=== PATIENT | female | born 1985 | race Caucasian/White ===

== ENCOUNTER 2023-05-30 09:42 | Outpatient (OUT) | payer MEDICAID, SELFPAY | END 2023-05-30 09:43 | disposition home or self-care (01) | LOC: PST 09:45 | PROVIDERS: PCP Nurse Practitioner; Visit Provider Obstetrics & Gynecology | DX: Z01.818 Encounter for other preprocedural examination (principal); R10.2 Pelvic and perineal pain; N94.10 Unspecified dyspareunia ==

== ENCOUNTER 2023-06-08 08:45 | Day surgery (SDC) | payer MEDICAID, SELFPAY ==
[2023-05-30 10:39] VITALS: BP 134/88; PULSE 72; RESP 20; TEMP 36.1; O2SAT 98; BMI 32.5
[2023-06-08] VITALS (13 sets, daily range): BP systolic 104–136; BP diastolic 64–80; PULSE 59–75; RESP 6–21; TEMP 35.8–36.1; O2SAT 78–100; BMI 32.2
[2023-06-08 09:05] LABS: Basophils Absolute Auto 0.1 10^3/uL (0.0-0.1); Basophils Percent Auto 0.8 % (0.2-2.0); Eosinophils Absolute Auto 0.2 10^3/uL (0.0-0.7); Hematocrit 40.5 % (36.0-48.0); Hemoglobin 13.5 g/dL (12.0-16.0); Immature Granulocytes Abs Auto 0.03 10^3/uL (0.00-0.03); Immature Granulocytes Pct Auto 0.3 % (0.0-0.5); Lymphocytes Absolute Auto 2.1 10^3/uL (1.2-3.8); Lymphocytes Percent Auto 23.2 % (20.5-60.0); Mean Corpuscular HGB Conc 33.3 g/dL (29.9-35.2); Mean Corpuscular Hemoglobin 29.7 pg (26.7-34.0); Mean Corpuscular Volume 89.2 fL (81.0-99.0); Mean Platelet Volume 10.2 fL (9.5-13.5); Monocytes Absolute Auto 0.6 10^3/uL (0.3-0.8); Monocytes Percent Auto 6.7 % (1.7-12.0); Platelet Count 325 10^3/uL (150-450); Red Blood Count 4.54 10^6/uL (4.20-5.40); Red Cell Distribution Width 12.5 % (11.0-15.0)
[2023-06-08] MEDS: LACTATED RINGER'S SOLUTION 1,000 ML 50 ML IV (09:12)
--- NOTE | 2023-06-08 12:30 | PM.ONB ---
Brief Operative Note Date of procedure: 06/08/23 Pre-op diagnosis: pelvic pain Post-op diagnosis: same as pre-op Procedure: NAME OF PROCEDURE: [diagnostic laparoscopy with lysis of omental adhesions and bowel from pelvic side wall ] PROCEDURE: The patient was taken back to the Operating Room where she was placed in dorsal lithotomy position after given general anesthesia. The patient was prepped and draped in normal sterile fashion. A sponge stick was placed into the patient's vagina. Attention was turned to the patient's abdomen, where a small umbilical incision was made. The fascia was tented using Car clamps and the fascia was entered sharply. Confirmation of intraabdominal placement of the 10 mm port was confirmed under direct visualization using a laparoscope. The patient's abdomen was then insufflated using CO2 gas with approximately 4 liters. A second port was placed left laterally, this was done under direct visualization with a 5 mm port. Survey of the patient's abdomen demonstrated normal liver and gallbladder. Survey of the patient's pelvic anatomy demonstrated normal appearing rt and lt ovary lysis of omental adhesions from anterior abdominal wall and bowel from pelvic side wall bluntly and using ligasure No endometrial implants could be noted, no evidence of any pelvic disease was seen, normal appearing pelvic cavity. All instruments were removed from the patient's abdomen. The patient's abdomen was deinsufflated of CO2 gas. The patient tolerated the procedure well. Sponge stick was removed from the patient's vagina. The patient's infraumbilical fascia was closed using #0 Vicryl on a GI needle. The patient's skin was closed laterally and infraumbilically using 4-0 Vicryl. The patient tolerated the procedure well. Sponge, lap and needle counts were correct x 2. The patient was taken to Recovery Room in stable condition.Clips from prior surgery noted adhered to bladder, the clips were grasped and gently removed Anesthesia: ILIANA Surgeon: Tommie Mccann [employer] Professor: Luli Marroquin Estimated blood loss (mL): 5 Pathology: none sent Condition: stable Disposition: PACU
[2023-06-08] MEDS: LACTATED RINGER'S SOLUTION 1,000 ML 150 ML IV (13:42)
[2023-06-08] MEDS: PROMETHAZINE HCL 25 MG TABLET PO (14:24)
== END 2023-06-08 14:45 | disposition home or self-care (01) ==
PROVIDERS: Visit Provider Obstetrics & Gynecology
PROC: (CPT 840; principal; 2023-06-08 10:10)
DX: R10.2 Pelvic and perineal pain (principal); N94.10 Unspecified dyspareunia; K66.0 Peritoneal adhesions (postprocedural) (postinfection); F32.A Depression, unspecified; E66.9 Obesity, unspecified; Z87.442 Personal history of urinary calculi; Z90.710 Acquired absence of both cervix and uterus; Z98.51 Tubal ligation status; Z68.32 Body mass index [BMI] 32.0-32.9, adult
CPT/HCPCS: 49329; 36415; 85025; J1170; J2704

== ENCOUNTER 2023-10-25 08:52 | Outpatient (OUT) | payer MEDICAID, SELFPAY ==
--- NOTE | 2023-10-25 09:02 | US_ITS ---
The [address] [address] Patient Name: ASHLEE JALLOH MRN: [id number] date: 1985 Sex: F Assigned Patient Location: US Current Patient Location: US Accession/Order Number: [id number] Exam Date: 10/25/2023 09:03 Report Date: 10/25/2023 10:01 At the request of: LIDIA LUNDBERG Procedure: US renal BI US renal BI, 10/25/2023 9:03 AM EST INDICATION: Right Flank Pain, Angiolipoma Right Kidney COMPARISON: There is no appropriate prior study for comparison. FINDINGS: The kidneys measure 11.3 x 5.6 x 5.3 cm on the right and 11 x 4.7 x 4.6 cm on the left side. No hydronephrosis is noted. Normal vascularity of kidneys. The visualized portion of the urinary bladder is unremarkable. The prevoid urinary bladder measures 329 mL. US/US renal BI IMPRESSION: No renal lesion or hydronephrosis is noted. Electronically authenticated by: ESMER LUCIANO Date: 10/25/2023 10:01
== END 2023-10-25 08:53 | disposition home or self-care (01) ==
LOC: US 08:53
PROVIDERS: Visit Provider Nurse Practitioner
DX: R10.31 Right lower quadrant pain (principal)
CPT/HCPCS: 76775

== ENCOUNTER 2024-01-22 14:00 | Outpatient (OUT) | payer OTHER, SELFPAY | END 2024-01-22 14:01 | disposition home or self-care (01) | LOC: SLEEP 01-23 09:44 | PROVIDERS: PCP Nurse Practitioner; Visit Provider Nurse Practitioner | DX: G47.33 Obstructive sleep apnea (adult) (pediatric) (principal); G47.11 Idiopathic hypersomnia with long sleep time | CPT/HCPCS: 95806 ==

== ENCOUNTER 2024-02-14 19:19 | Outpatient (REF) | payer OTHER, SELFPAY ==
--- OUTSIDE RECORDS SUMMARY | 2024-02-14 19:25 | XMS_ITS | CCD ---
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 Immunizations Vaccine Date Status Comments influenza virus vaccine, inactivated 07/07/2022 Recorded SARS-CoV-2 (COVID-19) mRNA BNT-162b2 vax 02/25/2021 Recorded 2023-05-18: TPVAL SARS-CoV-2 (COVID-19) mRNA BNT-162b2 vax 02/04/2021 Recorded 2023-05-18: TPVAL influenza virus vaccine, inactivated 07/02/2020 Recorded influenza virus vaccine, inactivated 07/14/2019 Recorded Normal [facility] Comment on above: Result Comment: Elec tronically Signed By: Lidia Jones\.br\Date and Time Signed: 01/22/24 10:56 EDT Interdisciplinary Note - Soc ronyl Workerjuan 01-17-2024 Interdisciplinary Note - Reaming Machine Operator For Plastic Consult for positive depression screen received. SW made tc to patient to discuss this. She states that these issues have been ongoing since childhood and she knows she needs to get in to see someone. Patient was agreeable to a referral being sent to [facility] for follow up. She reports that she has anxiety, depression, and PTSD. Referral was sent. SW will remain available. Normal [facility] XR SHOULDER RIGHT (MIN 2 VIE WS)on 01-06-2024 XR SHOULDER RIGHT (MIN 2 VIEWS) EXAMINATION: TWO XRAY VIEWS OF THE RIGHT SHOULDER 01/06/2024 7:44 pm COMPARISON: None. HISTORY: ORDERING SYSTEM PROVIDED HISTORY: pain TECHNOLOGIST PROVIDED HISTORY: pain FINDINGS: Glenohumeral joint is normally aligned. No evidence of acute fracture or dislocation. No abnormal periarticular calcifications. The AC joint is unremarkable in appearance. Visualized lung is unremarkable. IMPRESSION: No acute abnormality. Interpreted by: Derek Paulino MD Signed by: Derek Paulino MD 01/06/24 Final result Normal [facility] LARISSA Screenon 12-27-2023 LARISSA Screen Negative Normal NEG [facility] Comment on above: Performed By: #### H CG #### [address] [place] [address] Die Engraving Supervisor: Vitaliy Mccall MD Anti-dsDNA <0.5 Normal <10.0 [facility] Comment on above: Result Comment: Reference Range: <10.0 Negative 10.0-15.0 Equivocal >15.0 Positive Performed By: #### H CG #### [address] [place] [address] Die Engraving Supervisor: Vitaliy Mccall MD MICK Screen 0.2 U/mL Normal <0.7 [facility] Comment on above: Result Comment: Reference Range: <0.7 Negative 0.7-1.0 Equivocal >1.0 Positive MICK Screen includes U1RNP,RNP70,Sm,Ro(SS-A),La(SS-B),CENP,Scl-70,Jacquelyn-1 Performed By: #### H CG #### [address] [place] [id number] Die Engraving Supervisor: Vitaliy Mccall MD HLA Antigen B27on 12-27-2023 HLA Antigen B27 Negative Normal Negative [facility] Comment on above: Result Comment: (NOT E) INTERPRETIVE INFORMATION: HLA-B27 HLA-B27 is a serologically defined allele of the human HLA-B locus. The presence of the HLA-B27 antigen is strongly associated with ankylosing spondylitis and related disorders. This test was developed and its performance characteristics determined by [employer]. It has not been cleared or approved by the [place] Food and Drug Administration. This test was performed in a CLIA certified laboratory and is intended for clinical purposes. Performed By: [facility] [address] [place] [id number] Radiology Services Manager: Gonzales Velazquez MD, PhD CLIA Number: [id number] Performed By: #### H CG #### [facility] [address] [place] [address] [address] [place] [id number] Die Engraving Supervisor: Vitaliy Mccall MD RA Screenon 12-27-2023 RA Screen <10 Normal 0-13 [facility] Comment on above: Performed By: #### H CG #### [address] [place] [address] Die Engraving Supervisor: Vitaliy Mccall MD C-Reactive Proteinon 879 CRP [Mass/Vol] mg/L Normal 0.0-5.0 [facility] Comment on above: Performed By: #### H CG #### [facility] [address] [place] [address] [place] [address] Die Engraving Supervisor: Vitaliy Mccall MD Sedimentation Rateon 024 Sedimentation Rate 2 mm/Hr Normal 0-20 [facility] Comment on above: Performed By: #### H CG #### [address] [place] [address] Die Engraving Supervisor: Vitaliy Mccall MD Ambulatory Visit Summaryon 0 12-20-2023 Ambulatory Visit Summary KIZZY JALLOH :1985 Visit Date:12/20/2023 Ambulatory Visit Instructions Your Diagnosis Encounter for weight management BMI 29.0-29.9,adult Your Care Team Attending Physician - Lidia Jones Primary Care Physician - Lidia Jones This Is Your Medications List Misc Prescription (ESTRADIOL 1 MG TABLET) esomeprazole (Nexium 20 mg Cap-DR) naproxen (naproxen 500 mg Tab) phentermine (phentermine 37.5 mg Tab) ropinirole (ropinirole 1 mg Tab) ubrogepant (Ubrelvy 100 mg oral tablet) Procedures Performed Surgery (2022), Surgery (2022), Surgery (2020), delivery (2016), delivery, Hysterectomy, Surgery. Discharge Vitals Heart Rate (Peripheral) 76 Blood Pressure 128/60 Height 161.6 cm Height 64 in Weight 77.0 kg Weight 169.4 lb BMI 29.49 What to do next Scheduled Follow-Up Appointments Sunday 10:20 AM EDT With: Lidia Jones Where: [facility] Ambulatory Visit Summary KIZZY JALLOH :1985 Visit Date:12/20/2023 Ambulatory Visit Instructions Your Diagnosis Encounter for weight management BMI 29.0-29.9,adult Your Care Team Attending Physician - Lidia Jones Primary Care Physician - Lidia Jones This Is Your Medications List Misc Prescription (ESTRADIOL 1 MG TABLET) esomeprazole (Nexium 20 mg Cap-DR) naproxen (naproxen 500 mg Tab) phentermine (phentermine 37.5 mg Tab) ropinirole (ropinirole 1 mg Tab) ubrogepant (Ubrelvy 100 mg oral tablet) Procedures Performed Surgery (2022), Surgery (2022), Surgery (2020), delivery (2016), delivery, Hysterectomy, Surgery. Discharge Vitals Heart Rate (Peripheral) 76 Blood Pressure 128/60 Height 161.6 cm Height 64 in Weight 77.0 kg Weight 169.4 lb BMI 29.49 What to do next Scheduled Follow-Up Appointments Sunday 10:20 AM EDT With: Lidia Jones Where: [facility] [place] Normal [facility] Medicine Office/Clini c Noteon 12-20-2023 Family Medicine Office/Clinic Note Chief Complaint weight loss HPI Staff Kizzy is a 38 year old female presenting for 1 month follow up Weight management: Started Phentermine on 09/25/23 Sleeping well, no 4-5 house not new Chest pain:No Tremors:No Headaches:No Heart fluttering:No Blurred Vision:No Beginning weight: 199.5Ibs Previous weight: 179.0Ibs Today's weight:169.4 Questions/Concerns: PHQ 20 History of Present Illness pt presents today for weight management Review of Systems PHQ Score Initial Depression Screen Score: 4 SCORE Detailed Depression Screen Score: 20 Total Depression Screen Score: 24 Physical Exam Vitals & Measurements HR: 76(Peripheral) BP: 128/60 SpO2: 96% HT: 64 in HT: 161.6 cm WT: 77.0 kg WT: 169.4 lb BMI: 29.49 General: alert, no acute distress ENMT: oral mucosa moist, no pharyngeal erythema or exudate Cardiovascular: regular rate and rhythm, normal peripheral perfusion Respiratory: Lungs CTA, respirations non labored Extremities: no deformity, no trauma Neurological: oriented x 4, LOC appropriate for age, CN II-XII intact, motor strength equal & normal bilaterally, speech normal Assessment/Plan 1. Encounter for weight management (Z76.89: Persons encountering health services in other specified circumstances) pt presents today for weight management. pt is doing well. down 30 pounds since September. all questions answered. RTC 4 weeks 2. Obstructive apnea (G47.33: Obstructive sleep apnea (adult) (pediatric)) patients partner states that she stops breathing a lot at night and makes a lot of noises and snores very loudly. has never had sleep apnea testing. will order home test through [facility] 3. Loud snoring (R06.83: Snoring) see above 4. Witnessed episode of apnea (R06.81: Apnea, not elsewhere classified) see above 5. Daytime somnolence (R40.0: Somnolence) see above 6. BMI 29.0-29.9,adult (Z68.29: Body mass index [BMI] 29.0-29.9, adult) Pt continues adipex Follow-up No qualifying data available Problem List/Past Medical History Ongoing Abnormal rapid eye movement sleep Angiolipoma of right kidney Daytime somnolence Encounter for weight management Flank pain Loud snoring Low back pain Migraine headache Myringitis of left ear Obstructive apnea Weight gain Witnessed episode of apnea Historical No qualifying data Procedure/Surgical History Surgery (2022), Surgery (2022), Surgery (2020), delivery (2016), delivery, Hysterectomy, Surgery. Medications ESTRADIOL 1 MG TABLET, 0 naproxen 500 mg Tab, 500 mg= 1 tab(s), Oral, BID Nexium 20 mg Cap-DR, 20 mg= 1 cap(s), Oral, Daily phentermine 37.5 mg Tab, 37.5 mg= 1 tab(s), Oral, Daily ropinirole 1 mg Tab, 1 mg= 1 tab(s), Oral, Bedtime, 2 refills Ubrelvy 100 mg oral tablet, 100 mg= 1 tab(s), Oral, Once Allergies Nubain (Nausea) Silicone (simethicone) obsolete (Hives) Social History Tobacco Never (less than 100 in lifetime) Tobacco Use:. Never Smokeless Tobacco Use:. Household tobacco concerns: No., 12/20/2023 Family History Patient was adopted Immunizations Vaccine Date Status Comments influenza virus vaccine, inactivated 07/07/2022 Recorded SARS-CoV-2 (COVID-19) mRNA BNT-162b2 vax 02/25/2021 Recorded 2023-05-18: TPVAL SARS-CoV-2 (COVID-19) mRNA BNT-162b2 vax 02/04/2021 Recorded 2023-05-18: TPVAL influenza virus vaccine, inactivated 07/02/2020 Recorded influenza virus vaccine, inactivated 07/14/2019 Recorded Normal [facility] Comment on above: Result Comment: Elec tronically Signed By: Lidia Jones\.taniya\Date and Time Signed: 12/20/23 10:58 EDT Physician Orderon 12-20-2023 Physician Order [id number] #1.00TIFF Normal [facility] Ambulatory Visit Summaryon 0 12-13-2023 Ambulatory Visit Summary KIZZY JALLOH :1985 Visit Date:12/13/2023 Ambulatory Visit Instructions Your Diagnosis Myringitis of left ear BMI 31.0-31.9,adult Non-smoker Your Care Team Attending Physician - Lidia Jones Primary Care Physician - Lidia Jones This Is Your Medications List Misc Prescription (ESTRADIOL 1 MG TABLET) ciprofloxacin-dexame thasone otic (Ciprodex 0.3%-0.1% Susp-Otic) esomeprazole (Nexium 20 mg Cap-DR) naproxen (naproxen 500 mg Tab) phentermine (phentermine 37.5 mg Tab) ropinirole (ropinirole 1 mg Tab) ubrogepant (Ubrelvy 100 mg oral tablet) Procedures Performed Surgery (2022), Surgery (2022), Surgery (2020), delivery (2016), delivery, Hysterectomy, Surgery. Discharge Vitals Heart Rate (Peripheral) 66 Respiratory Rate 18 Blood Pressure 110/70 Height 161.6 cm Height 64 in Weight 78.6 kg Weight 172.92 lb BMI 30.1 What to do next Scheduled Follow-Up Appointments 2023 10:20 AM EDT With: Lidia Jones Where: [facility] [place] [facility] Family Medicine Office/Clini c Noteon 12-13-2023 Family Medicine Office/Clinic Note HPI Staff Kizzy is a 38 year old female presenting for ER follow up ER followup: Hospital: [facility] (records requested 12/11/23) Visit date: 12/11/23 Symptoms the patient presented with: left Ear pain Symptom onset/injury onset: left ear pain, bloody discharge Diagnosis: Bullous Myringitis of Left ear New medications: Augmentin Current concerns: Patient had appointment with [facility] on 12/11/23 and was started on Ciprodex ear drops BID x 4 days. Pt has follow up appointment with ENT and also will have hearing test to make sure there was no damage. History of Present Illness pt presents for ER follow up on ear pain Review of Systems PHQ Score Initial Depression Screen Score: 0 SCORE Physical Exam Vitals & Measurements HR: 66(Peripheral) RR: 18 BP: 110/70 SpO2: 99% HT: 64 in HT: 161.6 cm WT: 78.6 kg WT: 172.92 lb BMI: 30.1 General: alert, no acute distress ENMT: oral mucosa moist, no pharyngeal erythema or exudate Cardiovascular: regular rate and rhythm, normal peripheral perfusion Respiratory: Lungs CTA, respirations non labored Extremities: no deformity, no trauma Neurological: oriented x 4, LOC appropriate for age, CN II-XII intact, motor strength equal & normal bilaterally, speech normal Assessment/Plan 1. Myringitis of left ear (H73.22: Unspecified myringitis, left ear) pt was seen at ENT 2 days ago. started augmentin and cipro drops. follows up in 1 month for hearing screen. right ear is not red but clear fluid noted behind TM. 2. BMI 31.0-31.9,adult (Z68.31: Body mass index [BMI] 31.0-31.9, adult) BMI education complete 3. Non-smoker (Z78.9: Other specified health status) continue not smoking Follow-up No qualifying data available Problem List/Past Medical History Ongoing Angiolipoma of right kidney Encounter for weight management Flank pain Low back pain Migraine headache Myringitis of left ear Weight gain Historical No qualifying data Procedure/Surgical History Surgery (2022), Surgery (2022), Surgery (2020), delivery (2016), delivery, Hysterectomy, Surgery. Medications Ciprodex 0.3%-0.1% Susp-Otic, 4 drop(s), Otic, BID ESTRADIOL 1 MG TABLET, 0 naproxen 500 mg Tab, 500 mg= 1 tab(s), Oral, BID Nexium 20 mg Cap-DR, 20 mg= 1 cap(s), Oral, Daily phentermine 37.5 mg Tab, 37.5 mg= 1 tab(s), Oral, Daily ropinirole 1 mg Tab, 1 mg= 1 tab(s), Oral, Bedtime, 2 refills Ubrelvy 100 mg oral tablet, 100 mg= 1 tab(s), Oral, Once Allergies Nubain (Nausea) Silicone (simethicone) obsolete (Hives) Social History Tobacco Never (less than 100 in lifetime) Tobacco Use:. Never Smokeless Tobacco Use:. Household tobacco concerns: No., 12/13/2023 Family History Patient was adopted Immunizations Vaccine Date Status Comments influenza virus vaccine, inactivated 07/07/2022 Recorded SARS-CoV-2 (COVID-19) mRNA BNT-162b2 vax 02/25/2021 Recorded 2023-05-18: TPVAL SARS-CoV-2 (COVID-19) mRNA BNT-162b2 vax 02/04/2021 Recorded 2023-05-18: TPVAL influenza virus vaccine, inactivated 07/02/2020 Recorded influenza virus vaccine, inactivated 07/14/2019 Recorded Normal [facility] Comment on above: Result Comment: Elec tronically Signed By: Lidia Jones\.br\Date and Time Signed: 12/13/23 11:15 EDT Auth for Release of Medical Recordson 12-11-2023 Auth for Release of Medical Records [id number] #1.00TIFF Normal [facility] Family Medicine Office/Clini c Noteon 11-23-2023 Family Medicine Office/Clinic Note HPI Staff Kizzy is a 38 year old female presenting for 1 month follow up Weight management: Started Phentermine on 09/25/23 Sleeping well:Yes, 6-8 hours Chest pain:No Tremors:No Headaches:No Heart fluttering:No Blurred Vision:No Beginning weight: 199.5Ibs Previous weight: 187Ibs Today's weight: 179Ibs Questions/Concerns: none History of Present Illness pt presents today for weight management. Review of Systems PHQ Score Initial Depression Screen Score: 0 SCORE Physical Exam Vitals & Measurements HR: 62(Peripheral) RR: 18 BP: 110/64 SpO2: 99% HT: 64 in HT: 161.6 cm WT: 81.3 kg WT: 178.86 lb BMI: 31.13 General: alert, no acute distress ENMT: oral mucosa moist, no pharyngeal erythema or exudate Cardiovascular: regular rate and rhythm, normal peripheral perfusion Respiratory: Lungs CTA, respirations non labored Extremities: no deformity, no trauma Neurological: oriented x 4, LOC appropriate for age, CN II-XII intact, motor strength equal & normal bilaterally, speech normal Assessment/Plan 1. Encounter for weight management (Z76.89: Persons encountering health services in other specified circumstances) pt presents today for weight management. is down 9 pounds. doing very well. RTC 4 weeks. 2. BMI 31.0-31.9,adult (Z68.31: Body mass index [BMI] 31.0-31.9, adult) BMI education complete 3. Non-smoker (Z78.9: Other specified health status) continue not smoking Follow-up No qualifying data available Problem List/Past Medical History Ongoing Angiolipoma of right kidney Encounter for weight management Flank pain Low back pain Migraine headache Weight gain Historical No qualifying data Procedure/Surgical History Surgery (2022), Surgery (2022), Surgery (2020), delivery (2016), delivery, Hysterectomy, Surgery. Medications naproxen 500 mg Tab, 500 mg= 1 tab(s), Oral, BID Nexium 20 mg Cap-DR, 20 mg= 1 cap(s), Oral, Daily phentermine 37.5 mg Tab, 37.5 mg= 1 tab(s), Oral, Daily ropinirole 1 mg Tab, 1 mg= 1 tab(s), Oral, Bedtime, 2 refills Ubrelvy 100 mg oral tablet, 100 mg= 1 tab(s), Oral, Once Allergies Nubain (Nausea) Silicone (simethicone) obsolete (Hives) Social History Tobacco Never (less than 100 in lifetime) Tobacco Use:. Never Smokeless Tobacco Use:. Household tobacco concerns: No., 11/23/2023 Family History Patient was adopted Immunizations Vaccine Date Status Comments influenza virus vaccine, inactivated 07/07/2022 Recorded SARS-CoV-2 (COVID-19) mRNA BNT-162b2 vax 02/25/2021 Recorded 2023-05-18: TPVAL SARS-CoV-2 (COVID-19) mRNA BNT-162b2 vax 02/04/2021 Recorded 2023-05-18: TPVAL influenza virus vaccine, inactivated 07/02/2020 Recorded influenza virus vaccine, inactivated 07/14/2019 Recorded Normal [facility] Comment on above: Result Comment: Elec tronically Signed By: Lidia Jones\.br\Date and Time Signed: 11/23/23 10:25 EDT Ambulatory Visit Summaryon 0 10-25-2023 Ambulatory Visit Summary KIZZY JALLOH :1985 Visit Date:10/25/2023 Ambulatory Visit Instructions Your Diagnosis BMI 32.0-32.9,adult Non-smoker Your Care Team Attending Physician - Lidia Jones Primary Care Physician - Lidia Jones This Is Your Medications List esomeprazole (Nexium 20 mg Cap-DR) naproxen (naproxen 500 mg Tab) phentermine (phentermine 37.5 mg Tab) ropinirole (ropinirole 1 mg Tab) ubrogepant (Ubrelvy 100 mg oral tablet) Procedures Performed Surgery (2022), Surgery (2022), Surgery (2020), delivery (2016), delivery, Hysterectomy, Surgery. Discharge Vitals Heart Rate (Peripheral) 80 Respiratory Rate 18 Blood Pressure 122/78 Height 161.6 cm Height 64 in Weight 85.4 kg Weight 187.88 lb BMI 32.7 What to do next Scheduled Follow-Up Appointments Sunday 10:20 AM EDT With: Lidia Jones Where: [facility] [place] [facility] Family Medicine Office/Clini c Noteon 10-25-2023 Family Medicine Office/Clinic Note HPI Staff Patient presents for weight follow up. Weight management Sleeping well:Yes, 6-8 hours Chest pain:No Tremors:No Headaches:No Heart fluttering:No Blurred Vision:No Last Weight: 90.7 kg/199.54 lbs Last BMI 34.73 Today's Weight: 187Ibs Today's BMI: 32.7 pt was having constipation and started taking stool softener and this has been helpful History of Present Illness pt presents today for weight management. pt is down 12 pounds Review of Systems PHQ Score Initial Depression Screen Score: 0 SCORE ROS - Provider Constitutional: no fever, no chills, no sweats, no fatigue Respiratory: no shortness of breath, no cough, no orthopnea, no wheezing. Cardiovascular: no chest pain, no palpitations, no edema. Neurologic: no headache, no dizziness, no numbness, no weakness. Physical Exam Vitals & Measurements HR: 80(Peripheral) RR: 18 BP: 122/78 SpO2: 98% HT: 64 in HT: 161.6 cm WT: 85.4 kg WT: 187.88 lb BMI: 32.7 General: alert, no acute distress ENMT: oral mucosa moist, no pharyngeal erythema or exudate Cardiovascular: regular rate and rhythm, normal peripheral perfusion Respiratory: Lungs CTA, respirations non labored Extremities: no deformity, no trauma Neurological: oriented x 4, LOC appropriate for age, CN II-XII intact, motor strength equal & normal bilaterally, speech normal Assessment/Plan 1. Encounter for weight management (Z76.89: Persons encountering health services in other specified circumstances) pt presents today for weight management. pt is doing well down 12 pounds. was having constipation. but started stool softener. all questions answered. RTC 4 weeks. 2. BMI 32.0-32.9,adult (Z68.32: Body mass index [BMI] 32.0-32.9, adult) BMI education complete Ordered: phentermine, 37.5 mg = 1 tab(s), Oral, Daily, # 30 tab(s), Refills(s) 0, Pharmacy: [facility] [id number], 161.6, cm, 09/25/23 11:43:00 EST, Height/Length Dosing, 90.7, kg, 09/25/23 11:43:00 EST, Weight Dosing phentermine, 37.5 mg = 1 tab(s), Oral, Daily, # 30 tab(s), Refills(s) 0, Pharmacy: [facility] [id number], 161.6, cm, 10/25/23 9:42:00 EST, Height/Length Dosing, 85.4, kg, 10/25/23 9:42:00 EST, Weight Dosing 3. Non-smoker (Z78.9: Other specified health status) continue not smoking Ordered: phentermine, 37.5 mg = 1 tab(s), Oral, Daily, # 30 tab(s), Refills(s) 0, Pharmacy: [facility] [id number], 161.6, cm, 09/25/23 11:43:00 EST, Height/Length Dosing, 90.7, kg, 09/25/23 11:43:00 EST, Weight Dosing phentermine, 37.5 mg = 1 tab(s), Oral, Daily, # 30 tab(s), Refills(s) 0, Pharmacy: [id number], 161.6, cm, 10/25/23 9:42:00 EST, Height/Length Dosing, 85.4, kg, 10/25/23 9:42:00 EST, Weight Dosing Follow-up No qualifying data available Problem List/Past Medical History Ongoing Angiolipoma of right kidney Encounter for weight management Flank pain Migraine headache Weight gain Historical No qualifying data Procedure/Surgical History Surgery (2022), Surgery (2022), Surgery (2020), delivery (2016), delivery, Hysterectomy, Surgery. Medications naproxen 500 mg Tab, 500 mg= 1 tab(s), Oral, BID Nexium 20 mg Cap-DR, 20 mg= 1 cap(s), Oral, Daily phentermine 37.5 mg Tab, 37.5 mg= 1 tab(s), Oral, Daily ropinirole 1 mg Tab, 1 mg= 1 tab(s), Oral, Bedtime, 2 refills Ubrelvy 100 mg oral tablet, 100 mg= 1 tab(s), Oral, Once Allergies Nubain (Nausea) Silicone (simethicone) obsolete (Hives) Social History Tobacco Never (less than 100 in lifetime) Tobacco Use:. Never Smokeless Tobacco Use:. Household tobacco concerns: No., 09/25/2023 Family History Patient was adopted Immunizations Vaccine Date Status Comments influenza virus vaccine, inactivated 07/07/2022 Recorded SARS-CoV-2 (COVID-19) mRNA BNT-162b2 vax 02/25/2021 Recorded 2023-05-18: TPVAL SARS-CoV-2 (COVID-19) mRNA BNT-162b2 vax 02/04/2021 Recorded 2023-05-18: TPVAL influenza virus vaccine, inactivated 07/02/2020 Recorded influenza virus vaccine, inactivated 07/14/2019 Recorded Normal [facility] Comment on above: Result Comment: Elec tronically Signed By: Lidia Jones\marisabel\Date and Time Signed: 10/25/23 10:36 EST RAD - Ultrasound Reporton RAD - Ultrasound Report [id number] #1.00TIFF Normal [facility] BMPon 09-28-2023 Anion gap [Moles/Vol] 11 mmol/L 9 - 17 mmol/L [facility] Calcium [Mass/Vol] 9.3 mg/dL 8.6 - 10. 4 mg/dL [facility] Chloride [Moles/Vol] 103 mmol/L 98 - 10 7 mmol/L [facility] CO2 [Moles/Vol] 22 mmol/L 20 - 31 mmol/L [facility] Creatinine [Mass/Vol] 0.7 mg/dL 0.5 - 0.9 mg/dL [facility] GFR/1.73 sq M.predicted MDRD (S/P/Bld) [Vol rate/Area] - PINF [facility] Comment on above: These results are not intended for use in patients <18 years of age. eGFR results are calculated without a race factor using the 2020 CKD-EPI equation. Careful clinical correlation is recommended, particularly when comparing to results calculated using previous equations. The CKD-EPI equation is less accurate in patients with extremes of muscle mass, extra-renal metabolism of creatine, excessive creatine ingestion, or following therapy that affects renal tubular secretion. Glucose [Mass/Vol] 134 mg/dL High 70 - 99 mg/dL [facility] Interpretation and review of laboratory results Abnormal [facility] Potassium [Moles/Vol] 4.0 mmol/L 3.7 - 5.3 mmol/L [facility] Sodium [Moles/Vol] 136 mmol/L 135 - 144 mmol/L [facility] Urea nitrogen [Mass/Vol] 11 mg/dL 6 - 20 mg/dL [facility] Urea nitrogen/Creatinine [Mass ratio] 16 mg/mg 9 - 20 [facility] Basic Metabolic Profon 09-28 Anion gap [Moles/Vol] 11 mmol/L Normal 9-17 [facility] Comment on above: Performed By: #### C GABRIEL, BMP #### [facility] [address] [place] [address] [employer] Supervisor: Vitaliy Mccall MD BUN/CRE Ratio 16 Normal 9-20 [facility] Comment on above: Performed By: #### C DP, BMP #### [facility] [address] [place], [place] [id number] [employer] Supervisor: Vitaliy Mccall MD Calcium [Mass/Vol] 9.3 mg/dL Normal 8.6-10.4 [facility] Comment on above: Performed By: #### C DP, BMP #### [facility] [address] [place], [place] [id number] [employer] Supervisor: Vitaliy Mccall MD Chloride [Moles/Vol] 103 mmol/L Normal 98-107 [facility] Comment on above: Performed By: #### C DP, BMP #### [facility] [address] [place], [place] [id number] [employer] Supervisor: Vitaliy Mccall MD CO2 [Moles/Vol] 22 mmol/L Normal 20-31 [facility] Comment on above: Performed By: #### C DP, BMP #### [facility] [address] [place], [place] [id number] [employer] Supervisor: Vitaliy Mccall MD Creatinine [Mass/Vol] 0.7 mg/dL Normal 0.5-0.9 [facility] Comment on above: Performed By: #### C DP, BMP #### [facility] [address] [place], [place] [id number] [employer] Supervisor: Vitaliy Mccall MD GFR/1.73 sq M.predicted among non-blacks MDRD (S/P/Bld) [Vol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 laboratory results Abnormal [facility] Potassium [Moles/Vol] 3.9 mmol/L 3.5 - 5.2 meq/L [facility] Sodium [Moles/Vol] 140 mmol/L 135 - 145 meq/L [facility] Urea nitrogen [Mass/Vol] 9 mg/dL 7 - 22 mg/dL [facility] CBC WITH DIFFERENTIALon 08-10 ABS BASOPHILS 0.0 thou/mm3 Normal 0.0-0.1 [facility] Comment on above: Performed By: #### E GFR1, BMPX, CBCWD, ANION #### [facility] [address] [place] [address] ABS EOSINOPHILS 0.0 thou/mm3 Normal 0.0-0.4 [facility] Comment on above: Performed By: #### E GFR1, BMPX, CBCWD, ANION #### [facility] [address] [place] [address] ABS IMMATURE GRANS (IG) 0.09 thou/mm3 High 0.00-0.07 [facility] Comment on above: Performed By: #### E GFR1, BMPX, CBCWD, ANION #### [facility] [address] [place] [address] ABS LYMPHOCYTES 2.3 thou/mm3 Normal 1.0-4.8 [facility] Comment on above: Performed By: #### E GFR1, BMPX, CBCWD, ANION #### [facility] [address] [place] [address] ABS MONOCYTES 0.9 thou/mm3 Normal 0.4-1.3 [facility] Comment on above: Performed By: #### E GFR1, BMPX, CBCWD, ANION #### [address] [address] ABS NEUTROPHILS 13.8 thou/mm3 High 1.8-7.7 [facility] Comment on above: Performed By: #### E GFR1, BMPX, CBCWD, ANION #### [place] [id number] Basophils/100 WBC (Bld) 0.2 % Normal [facility] Comment on above: Performed By: #### E GFR1, BMPX, CBCWD, ANION #### [place] [address] Eosinophils/100 WBC (Bld) 0.1 % Normal [facility] Comment on above: Performed By: #### E GFR1, BMPX, CBCWD, ANION #### [place] [address] Erythrocyte distribution width (RBC) [Ratio] 12.2 % Normal 11.5-14.5 [facility] Comment on above: Performed By: #### E GFR1, BMPX, CBCWD, ANION #### [place] [address] Hematocrit (Bld) [Volume fraction] 36.9 % Low 37.0-47.0 [facility] Comment on above: Performed By: #### E GFR1, BMPX, CBCWD, ANION #### [place] [address] Hemoglobin (Bld) [Mass/Vol] 12.4 g/dL Normal 12.0-16.0 [facility] Comment on above: Performed By: #### E GFR1, BMPX, CBCWD, ANION #### [place] [address] IMMATURE GRANS (IG) 0.5 % Normal [facility] Comment on above: Performed By: #### E GFR1, BMPX, CBCWD, ANION #### [facility] [address] [address] Lymphocytes/100 WBC (Bld) 13.2 % Normal [facility] Comment on above: Performed By: #### E GFR1, BMPX, CBCWD, ANION #### [address] [address] MCH (RBC) [Entitic mass] 30.3 pg Normal 26.0-33.0 [facility] Comment on above: Performed By: #### E GFR1, BMPX, CBCWD, ANION #### [facility] [address] [place] [address] MCHC (RBC) [Mass/Vol] 33.6 g/dL Normal 32.2-35.5 [facility] Comment on above: Performed By: #### E GFR1, BMPX, CBCWD, ANION #### [address] [address] MCV (RBC) [Entitic vol] 90.2 fL Normal 81.0-99.0 [facility] Comment on above: Performed By: #### E GFR1, BMPX, CBCWD, ANION #### [address] [address] Monocytes/100 WBC (Bld) 5.1 % Normal [facility] Comment on above: Performed By: #### E GFR1, BMPX, CBCWD, ANION #### [address] [address] Neutrophils/100 WBC (Bld) 80.9 % Normal [facility] Comment on above: Performed By: #### E GFR1, BMPX, CBCWD, ANION #### [address] [address] NRBC 0 /100 wbc Normal [facility] Comment on above: Performed By: #### E GFR1, BMPX, CBCWD, ANION #### [facility] [address] [place] [address] PLATELET 278 thou/mm3 Normal 130-400 [facility] Comment on above: Performed By: #### E GFR1, BMPX, CBCWD, ANION #### [facility] [address] [place] [address] Platelet mean volume (Bld) [Entitic vol] 10.1 fL Normal 9.4-12.4 [facility] Comment on above: Performed By: #### E GFR1, BMPX, CBCWD, ANION #### [facility] [address] [place] [address] RBC 4.09 mill/mm3 Low 4.20-5.40 [facility] Comment on above: Performed By: #### E GFR1, BMPX, CBCWD, ANION #### [facility] [address] [place] [address] RDW-SD 39.8 fL Normal 35.0-45.0 [facility] Comment on above: Performed By: #### E GFR1, BMPX, CBCWD, ANION #### [facility] [address] [place] [address] WBC 17.1 thou/mm3 High 4.8-10.8 [facility] Comment on above: Performed By: #### E GFR1, BMPX, CBCWD, ANION #### [facility] [address] [place] [address] CBC with Auto Differentialon 08-25-2023 Basophils (Bld) [#/Vol] 0.0 10*3/uL [facility] Basophils/100 WBC (Bld) 0.2 % [facility] Eosinophils Absolute 0.0 [facility] Eosinophils/100 WBC (Bld) 0.1 % [facility] Erythrocyte distribution width (RBC) [Entitic vol] 39.8 fL 35.0 - 45.0 fL [facility] Erythrocyte distribution width (RBC) [Ratio] 12.2 % 11.5 - 14.5 % [facility] Hematocrit (Bld) [Volume fraction] 36.9 % Low 37.0 - 47.0 % [facility] Hemoglobin (Bld) [Mass/Vol] 12.4 g/dL [facility] Immature granulocytes (Bld) [#/Vol] 0.09 10*3/uL High [facility] Immature granulocytes/100 WBC (Bld) 0.5 % [facility] Interpretation and review of laboratory results Abnormal [facility] Lymphocytes Absolute 2.[address] [facility] Lymphocytes/100 WBC (Bld) 13.2 % [facility] MCH (RBC) [Entitic mass] 30.3 pg 26.0 - 33.0 pg [facility] MCHC (RBC) [Mass/Vol] 33.6 g/dL [facility] MCV (RBC) [Entitic vol] 90.2 fL 81.0 - 99.0 fL [facility] Monocytes Absolute 0.9 [facility] Monocytes/100 WBC (Bld) 5.1 % [facility] Neutrophils/100 WBC (Bld) 80.9 % [facility] Nucleated RBC/100 WBC (Bld) [Ratio] 0 % /100 wbc [facility] Comment on above: Performed at [facility] [address] [place] [address] Platelet mean volume (Bld) [Entitic vol] 10.1 fL 9.4 - 12.4 fL [facility] Platelets (Bld) [#/Vol] 278 10*3/uL [facility] RBC (Bld) [#/Vol] 4.09 10*6/uL Low [facility] Segs Absolute 13.8 High [facility] WBC (Bld) [#/Vol] 17.1 10*3/uL High [facility] GFR, ESTIMATEDon 08-25-2023 GFR/1.73 sq M.predicted MDRD (S/P/Bld) [Vol rate/Area] mL/min/{1.73_m2} Normal >60 [facility] Comment on above: Result Comment: Pedi atric calculator link https://www.kidney.org/professionals/kdoqi/gfr_calculatorped Effective Jun 12, 2022 These results are not intended for use in patients <18 years of age. eGFR results are calculated without a race factor using the 2020 CKD-EPI equation. Careful clinical correlation is recommended, particularly when comparing to results calculated using previous equations. The CKD-EPI equation is less accurate in patients with extremes of muscle mass, extra-renal metabolism of creatinine, excessive creatine ingestion, or following therapy that affects renal tubular secretion. Performed By: #### E GFR1, BMPX, CBCWD, ANION #### [facility] [address] [place] [address] Glomerular Filtration Rate, Estimatedon 08-25-2023 GFR/1.73 sq M.predicted MDRD (S/P/Bld) [Vol rate/Area] - [facility] Comment on above: Pediatric calculator link https://www.kidney.org/professionals/kdoqi/gfr_calculatorped Effective Jun 12, 2022 These results are not intended for use in patients <18 years of age. eGFR results are calculated without a race factor using the 2020 CKD-EPI equation. Careful clinical correlation is recommended, particularly when comparing to results calculated using previous equations. The CKD-EPI equation is less accurate in patients with extremes of muscle mass, extra-renal metabolism of creatinine, excessive creatine ingestion, or following therapy that affects renal tubular secretion. Performed at [facility] [address] [place] [address] No Panel Informationon 08-25 [facility] FLUORO FOR SURGICAL PROCEDUR ESon 08-24-2023 FLUORO FOR SURGICAL PROCEDURES Radiology exam is complete. No Radiologist dictation. Please follow up with ordering provider. Normal [facility] Guidance-- during surgeryon 08-24-2023 Radiology exam is complete. No Radiologist dictation. Please follow up with ordering provider. [facility] Heart and Vascular Office/Cl inic Noteon 08-04-2023 Heart and Vascular Office/Clinic Note Chief Complaint surgical clearance History of Present Illness Kizzy Jalloh is a 38-year-old female patient who presents today for cardiac clearance for her surgery on 06/08/2023. The patient requires cardiac clearance for her upcoming surgery scheduled for 06/08/2023. She has a history of experiencing low blood pressure and heart failure rate during previous surgeries or when undergoing anesthesia. Her surgical history includes 2 C-sections, a partial hysterectomy, and 2 back surgeries. The planned procedure is laparoscopic surgery on her right ovary to clean out all scar tissue, endometriosis, and the potential removal of the ovary itself. Dr. Mccann at [facility] will be performing the surgery. She recalls being informed about heart palpitations just before the of her older son, who is now 14 years old. At that time palpitations were infrequent, occurring once every few months and were not a cause for concern. However, she experiences them every couple of days. She describes the sensation as a burning feeling, resembling a fluttering in her chest which makes her chest feel tight and heavy. She notes that she constantly feels her heartbeat a sensation she did not experience in the past. A couple of weeks ago, she experienced these symptoms 2 to 3 times a day, leading to a hospitalization. 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 She denies experiencing syncope, she mentions feeling dizzy and lightheaded. She does not believe she has lost consciousness due to these symptoms. She prefers not to use treadmill due to other physical issues, as her legs become weak rapidly. She has already undergone fusion surgery from L4 to her tailbone and there are plans to fuse her SI joint. The goal is to avoid extensive surgery that would involve the hips. She mentions walking takes up a lot of her body. She recalls an incident during her second when she received an epidural. After the procedure she experiences severe dizziness and vomiting. During this episode she felt a combination of being paralyzed and vomiting simultaneously. She notes her heart rate dropped to around 54 to 55 bpm. She has postponed the surgery for approximately 1 to 2 years. She mentions an identified mass on the ovary which is half its size is necessitating the need for removal. She has a history of past cancer. She mentions that after her 2 back surgeries, she was not allowed to take pain medication because her blood pressure was 80/50 mmHg. She had a heart monitor done on 03/2023. She has undergone multiple EKGs since 2021. There have been notable differences observed between these tests. It was from [facility]. She does not remember what they told her about it. She was advised to see a nozzle worker after it. Review of Systems PHQ Score Initial Depression Screen Score: 0 Review of Systems Constitutional: no fever, no sweats, no weakness Skin: no rash, no lesions, no bruising/petechiae ENMT: no sore throat, no congestion, no hoarseness Respiratory: no shortness of breath, no cough, no orthopnea, no wheezing Cardiovascular: no chest pain, no palpitations, no edema Gastrointestinal: no nausea, no vomiting, no diarrhea, no GI bleeding Genitourinary: no anuria/oliguria no hematuria Musculoskeletal: no back pain, no trauma Neurologic: no headache, no dizziness, no numbness, no weakness Psychiatric: no sleeping problems, no irritability, no anxiety/depression. Heme/Lymph: no bleeding tendency, no bruising tendency Allergy/Immunologic: no recurrent infections, no impaired immunity Additional ROS info: Except as noted in the above Review of Systems and in the History of Present Illness all other systems have been reviewed and are negative or noncontributory Physical Exam Vitals & Measurements HR: 82(Peripheral) BP: 124/82 SpO2: 99% HT: 64 in HT: 161.6 cm WT: 85.8 kg WT: 188.76 lb BMI: 32.86 General: alert, no acute distress Skin: warm, dry intact Head: atraumatic, normocephalic Neck: trachea midline, no JVD, no bruit Eye: normal conjunctiva, sclera clear ENMT: oral mucosa moist Cardiovascular: regular rate and rhythm, no murmur, normal peripheral perfusion Respiratory: lungs CTA, respirations non labored Chest wall: no deformity. Gastrointestinal: soft, non-distended, no tenderness, no guarding. Back: no tenderness, normal ROM, normal alignment. Extremities: no edema, no deformity, no trauma Neurological: oriented x 4, LOC appropriate for age, sensation equal & normal bilaterally, speech normal Psychiatric: cooperative, affect appropriate for age, normal judgement, normal psychiatric thoughts. Assessment/Plan 1. Preoperative clearance. I will order an echocardiogram and a Holter monitor. Portions of this record may have been created with voice recognition artificial intelligence software, specifically Hello Music, YouGoDo and or Pomme [employer] (more content not included)... Normal [facility] Comment on above: Result Comment: Elec tronically Signed By: Riky CONROY, Herve Desai\.br\Date and Time Signed: 08/04/23 11:54 EST\.br\Electronically Co-Signed By: Marisela Jo.br\Date and Time Co-Signed: 06/04/23 18:49 EDT Interdisciplinary Note - Soc ial Mamadou 10-18-2023 Interdisciplinary Note - Reaming Machine Operator For Plastic This SW reached out to patient to follow up with her regarding a positive depression screen that patient received at her most recent PCP appointment on May 18, 2023 with DAVION Rizzo. Patient's total depression screening score was a 24 at that appointment. SW wanted to reach out to offered supportive services if needed. Patient did not answer, therefore a voicemail was left. SW will remain available as needed. Normal [facility] Interdisciplinary Note - Soc ial Workeron 06-22-2023 Interdisciplinary Note - Reaming Machine Operator For Plastic This SW reached out to patient to follow up with her regarding a positive depression screen that patient received at her most recent PCP appointment on May 18, 2023 with DAVION Rizzo. Patient's total depression screening score was a 24 at that appointment. SW wanted to reach out to offered supportive services if needed. Patient did not answer, therefore a voicemail was left. SW will remain available as needed. Normal [facility] RAD - CT Reporton 06-20-2023 RAD - CT Report [id number] #1.00TIFF Normal [facility] CT PELVIS WO CONTRASTon CT PELVIS WO CONTRAST EXAMINATION: CT OF THE PELVIS WITHOUT CONTRAST 06/15/2023 10:02 am TECHNIQUE: CT of the pelvis was performed without the administration of intravenous contrast. Multiplanar reformatted images are provided for review. Adjustment of mA and/or kV according to patient size was utilized. Automated exposure control, iterative reconstruction, and/or weight based adjustment of the mA/kV was utilized to reduce the radiation dose to as low as reasonably achievable. COMPARISON: Pelvic ultrasound from 03/15/2023. HISTORY ORDERING SYSTEM PROVIDED HISTORY: SI (sacroiliac) joint dysfunction TECHNOLOGIST PROVIDED HISTORY: Is the patient ?->No 38-year-old female with SI joint dysfunction. FINDINGS: Bones: Prior spinal fusion at L4-L5 with intervertebral cage device. Mild degenerative change at L5-S1. No obvious coccygeal deformity. No CT evidence for acute fracture or dislocation. Soft Tissue: Mild edema and fluid in the subcutaneous fat of the midline lower abdomen/upper pelvis. 4.6 x 3.0 cm left adnexal cyst on image 112, series 4. Nondistended urinary bladder. Pelvic phleboliths. Joint: Bilateral SI joints appear patent. No SI joint fusion or erosive change. Both femoral heads properly located in the bilateral acetabula without clear evidence for acute fracture, dislocation or femoral head flattening. Mild degenerative changes of the pubic symphysis. Bilateral hip joint spaces are well maintained. IMPRESSION: 1. Prior spinal fusion L4-L5. 2. No acute osseous abnormality evident by CT. 3. Bilateral SI joints appear patent without SI joint fusion or erosive change. 4. 4.6 x 3.0 cm left adnexal cyst. Further evaluation with pelvic ultrasound recommended. 5. Mild nonspecific edema and fluid in the subcutaneous fat of the midline lower abdomen/upper pelvis. Interpreted by: Gm Uribe MD Signed by: Gm Uribe MD 06/15/23 Final result Normal [facility] Consent for Treatmenton 05-12 Consent for Treatment [id number] #1.00CD:127 [facility] Insurance Correspondenceon 0 06-06-2023 Insurance Correspondence [id number] 5#1.00CD:127 [facility] Stress EKG Tracingson 2022 Stress EKG Tracings [id number] 0#1.00CD:127 [facility] Auth for Release of Medical Recordson 06-05-2023 Auth for Release of Medical Records [id number] 5#1.00CD:127 [facility] Consent for Treatmenton 05-12 Consent for Treatment [id number] #1.00CD:127 [facility] [facility] 06-05-2023 Forms [id number] 1#1.00CD:127 [facility] Outside Cardiovascularon Outside Cardiovascular [id number] 1#1.00CD:127 [facility] Patient Letter FTMCon 2022 Patient Letter [facility] Tommie Mccann, DO [address] [place] [address] Re: KIZZY JALLOH Date of : 1985 Re: Kizzy Jalloh : 1985 The above patient represents low risk for upcoming non-cardiac surgery. Roya MARCUS [facility] Heart [facility] Vascular Clinic [facility] Physician Orderon 06-05-2023 Physician Order [id number] 5#1.00CD:127 [facility] Physician Order [id number] 7#1.00CD:127 [facility] Consent for Treatmenton 05-12 Consent for Treatment [id number] #1.00CD:127 [facility] Consultation Noteon 05-31-20 Consultation Note [id number] 5#1.00CD:127 [facility] CT LUMBAR SPINE WO CONTRASTo n 05-29-2023 CT LUMBAR SPINE WO CONTRAST EXAMINATION: CT OF THE LUMBAR SPINE WITHOUT CONTRAST; CT OF THE THORACIC SPINE WITHOUT CONTRAST 05/29/2023 12:44 am; 05/29/2023 12:46 am TECHNIQUE: CT of the lumbar spine was performed without the administration of intravenous contrast. Multiplanar reformatted images are provided for review. Adjustment of mA and/or kV according to patient size was utilized. Automated exposure control, iterative reconstruction, and/or weight based adjustment of the mA/kV was utilized to reduce the radiation dose to as low as reasonably achievable.; CT of the thoracic spine was performed without the administration of intravenous contrast. Multiplanar reformatted images are provided for review. Automated exposure control, iterative reconstruction, and/or weight based adjustment of the mA/kV was utilized to reduce the radiation dose to as low as reasonably achievable. COMPARISON: Lumbar spine MRI 09/01/2021, abdomen and pelvis CT 07/30/2013 HISTORY: ORDERING SYSTEM PROVIDED HISTORY: Fall/midline pain TECHNOLOGIST PROVIDED HISTORY: Fall/midline pain Decision Support Exception - unselect if not a suspected or confirmed emergency medical condition->Emergency Medical Condition (MA) Is the patient ?->No; ORDERING SYSTEM PROVIDED HISTORY: Fall, lower lumbar pain. TECHNOLOGIST PROVIDED HISTORY: Fall, lower lumbar pain. Is the patient ?->No FINDINGS: BONES/ALIGNMENT: Changes of posterior fusion of L4 and L5, L4/L5 discectomy, and bilateral L4 laminectomy with no evident complication. No acute fracture. Maintenance of thoracic kyphosis and lumbar lordosis. No spondylolisthesis. DEGENERATIVE CHANGES: Minimal to moderate thoracic spine and minimal lumbar spine degenerative disc disease. Minimal to moderate lumbar spine facet arthropathy. SOFT TISSUES: Normal appearance of the paravertebral soft tissues. 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 Partial inclusion of a simple appearing left adnexal cystic lesion measuring at least 4.1 cm. IMPRESSION: 1. No acute findings in the thoracic spine or lumbar spine. 2. No evident complication associated with postoperative changes at L4 and L5. 3. Thoracic spine and lumbar spine degenerative changes as above. 4. Additional incidental findings as above for which no dedicated follow-up is recommended. Interpreted by: Jason Zamudio MD Signed by: Jason Zamudio MD 05/29/23 Final result Normal [facility] CT THORACIC SPINE WO CONTRAS Ton 05-29-2023 CT THORACIC SPINE WO CONTRAST EXAMINATION: CT OF THE LUMBAR SPINE WITHOUT CONTRAST; CT OF THE THORACIC SPINE WITHOUT CONTRAST 05/29/2023 12:44 am; 05/29/2023 12:46 am TECHNIQUE: CT of the lumbar spine was performed without the administration of intravenous contrast. Multiplanar reformatted images are provided for review. Adjustment of mA and/or kV according to patient size was utilized. Automated exposure control, iterative reconstruction, and/or weight based adjustment of the mA/kV was utilized to reduce the radiation dose to as low as reasonably achievable.; CT of the thoracic spine was performed without the administration of intravenous contrast. Multiplanar reformatted images are provided for review. Automated exposure control, iterative reconstruction, and/or weight based adjustment of the mA/kV was utilized to reduce the radiation dose to as low as reasonably achievable. COMPARISON: Lumbar spine MRI 09/01/2021, abdomen and pelvis CT 07/30/2013 HISTORY: ORDERING SYSTEM PROVIDED HISTORY: Fall/midline pain TECHNOLOGIST PROVIDED HISTORY: Fall/midline pain Decision Support Exception - unselect if not a suspected or confirmed emergency medical condition->Emergency Medical Condition (MA) Is the patient ?->No; ORDERING SYSTEM PROVIDED HISTORY: Fall, lower lumbar pain. TECHNOLOGIST PROVIDED HISTORY: Fall, lower lumbar pain. Is the patient ?->No FINDINGS: BONES/ALIGNMENT: Changes of posterior fusion of L4 and L5, L4/L5 discectomy, and bilateral L4 laminectomy with no evident complication. No acute fracture. Maintenance of thoracic kyphosis and lumbar lordosis. No spondylolisthesis. DEGENERATIVE CHANGES: Minimal to moderate thoracic spine and minimal lumbar spine degenerative disc disease. Minimal to moderate lumbar spine facet arthropathy. SOFT TISSUES: Normal appearance of the paravertebral soft tissues. 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 Partial inclusion of a simple appearing left adnexal cystic lesion measuring at least 4.1 cm. IMPRESSION: 1. No acute findings in the thoracic spine or lumbar spine. 2. No evident complication associated with postoperative changes at L4 and L5. 3. Thoracic spine and lumbar spine degenerative changes as above. 4. Additional incidental findings as above for which no dedicated follow-up is recommended. Interpreted by: Jason Zamudio MD Signed by: Jason Zamudio MD 05/29/23 Final result Normal [facility] Physician Referralon 023 Physician Referral [id number] #1.00CD:127 [facility] Ambulatory Visit Summaryon 0 05-18-2023 Ambulatory Visit Summary KIZZY JALLOH :1985 Visit Date:05/18/2023 Ambulatory Visit Instructions Your Diagnosis Migraine headache BMI 32.0-32.9,adult Non-smoker Your Care Team Attending Physician - Lidia Jones Primary Care Physician - Lidia Jones This Is Your Medications List naproxen (naproxen 500 mg Tab) Procedures Performed Surgery (2022), Surgery (2020), delivery (2016), delivery, Hysterectomy. Discharge Vitals Heart Rate (Peripheral) 70 Respiratory Rate 18 Blood Pressure 126/74 Height 161.6 cm Height 64 in Weight 84.7 kg Weight 186.34 lb BMI 32.43 Medications What How Much When Instructions Unchanged naproxen (naproxen 500 mg Tab) 1 Tablets By Mouth 2 times a day Allergies Nubain (Nausea) Silicone (simethicone) obsolete (Hives) Problems Ongoing - Any problem that you are currently receiving treatment for. 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 When was your last doctors visit: Last provider: Any recent labs: within last year at [facility] UTD: Colonoscopy: no Mammogram: 2018 normal Pelvic/Pap: 2022 HPV cells not active Acute: Current issues/complaints: Migraines: pt use to see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 with pelvic ultrasound is recommended. 2. Posterior spinal fusion at L4-L5 with intervertebral cage device. 3. Mild degenerative changes at L5-S1. 4. No acute vertebral body height loss or malalignment within the lumbar spine. Interpreted by: Gm Uribe MD Signed by: Gm Uribe MD 03/15/23 Final result Normal [facility] HCG Screen, Bloodon 03-15-20 HCG Screen, Blood Negative Normal NEG [facility] Comment on above: Result Comment: Spec imens with hCG levels near the threshold of the test (25 mIU/mL) may give a negative or indeterminate result. In such cases, another test should be performed with a new specimen in 48-72 hours. If early is suspected clinically in this setting, correlation with quantitative serum b-hCG level is suggested. [facility] has confirmed the use of plasma for this test. This has not been cleared or approved by the U.[place]. Food and Drug Administration. The FDA has determined that such clearance is not necessary. Performed By: #### H CG #### [address] [place] [address] [employer] Supervisor: Vitaliy Mccall MD Magnesiumon 03-15-2023 Magnesium [Mass/Vol] 1.8 mg/dL Normal 1.6-2.6 [facility] Comment on above: Performed By: #### M G #### [facility] [address] [place] [address] [employer] Supervisor: Vitaliy Mccall MD Troponinon 03-15-2023 Troponin, High Sens 6 ng/L Normal 0-14 [facility] Comment on above: Result Comment: High Sensitivity Troponin values cannot be compared with other Troponin methodologies. Performed By: #### T ROPI #### [facility] [address] [place] [address] [employer] Supervisor: Vitaliy Mccall MD Troponin, High Sens 6 ng/L Normal 0-14 [facility] Comment on above: Result Comment: High Sensitivity Troponin values cannot be compared with other Troponin methodologies. Performed By: #### C DP, [facility] #### [facility] [address] [place] [address] [employer] Supervisor: Vitaliy Mccall MD US PELVIS COMPLETEon 023 US PELVIS COMPLETE EXAMINATION: PELVIC ULTRASOUND 03/15/2023 TECHNIQUE: Transabdominal pelvic ultrasound was performed. COMPARISON: None HISTORY: ORDERING SYSTEM PROVIDED HISTORY: R ovarian mass TECHNOLOGIST PROVIDED HISTORY: R ovarian mass 38-year-old female with possible right ovarian mass FINDINGS: Measurements: Uterus: Prior hysterectomy. Endometrial stripe: Prior hysterectomy. Right Ovary:3.6 x 4.6 x 3.5 cm. Left Ovary: Not visualized. Ultrasound Findings: Uterus: Prior hysterectomy. Endometrial stripe: Prior hysterectomy. Right Ovary: Color flow projects over the right ovarian parenchyma with normal arterial and venous Doppler flow. Hypoechoic lesion within the right ovary measuring 1.8 x 2.2 x 1.5 cm. Left Ovary: Not visualized. Free Fluid: No evidence of free fluid. IMPRESSION: 1. Indeterminate, hypoechoic lesion in the right ovary measuring 2.2 cm in a premenopausal female. 2. Nonvisualization of the left ovary. Prior hysterectomy. RECOMMENDATIONS: Indeterminate, hypoechoic lesion in the right ovary measuring up to 2.2 cm in a premenopausal female. Recommend ultrasound follow-up in 6-12 weeks. If unchanged, continue follow-up with ultrasound or MR w/IV contrast. If follow-up studies do not confirm endometrioma or dermoid, consider surgical evaluation. Note: This recommendation does not apply to premenarchal patients and to those with increased risk (genetic, family history, elevated tumor markers or other high-risk factors) of ovarian cancer. Reference: Radiology 2010 May;256(3):943-54 with full reference Interpreted by: Gm Uribe MD Signed by: Gm Uribe MD 03/15/23 Final result Normal [facility] XR CHEST PORTABLEon 03-15-20 23 XR CHEST PORTABLE EXAMINATION: ONE XRAY VIEW OF THE CHEST 03/15/2023 7:40 am COMPARISON: 01/22/2023 HISTORY: ORDERING SYSTEM PROVIDED HISTORY: cp TECHNOLOGIST PROVIDED HISTORY: cp 38-year-old female with chest pain FINDINGS: monitoring specialist leads overlie the chest. Trachea midline. No pneumothorax. No acute focal airspace consolidation or pleural effusions. Cardiac and mediastinal contours unchanged and within normal limits. No acute osseous abnormality. Remote healed fracture deformity of the mid left clavicle, stable. IMPRESSION: No acute focal airspace consolidation. Interpreted by: Gm Uribe MD Signed by: Gm Uribe MD 03/15/23 Final result Normal [facility] Basic Metabolic Profon 01-22 Anion gap [Moles/Vol] 10 mmol/L Normal 9-17 [facility] Comment on above: Performed By: #### C DP, BMP #### [facility] [address] [place] [address] [employer] Supervisor: Vitaliy Mccall MD BUN/CRE Ratio 29 High 9-20 [facility] Comment on above: Performed By: #### C DP, BMP #### [facility] [address] [place], [place] 287[address]83 [employer] Supervisor: Vitaliy Mccall MD Calcium [Mass/Vol] 9.7 mg/dL Normal 8.6-10.4 [facility] Comment on above: Performed By: #### C DP, BMP #### [address] [place], [place] [address] [employer] Supervisor: Vitaliy Mccall MD Chloride [Moles/Vol] 101 mmol/L Normal 98-107 [facility] Comment on above: Performed By: #### C DP, BMP #### [facility] [address] [place], [place] [address] [employer] Supervisor: Vitaliy Mccall MD CO2 [Moles/Vol] 25 mmol/L Normal 20-31 [facility] Comment on above: Performed By: #### C DP, BMP #### [facility] [address] [place] [address] [employer] Supervisor: Vitaliy Mccall MD Creatinine [Mass/Vol] 0.75 mg/dL Normal 0.50-0.90 [facility] Comment on above: Performed By: #### C DP, BMP #### [address] [place] [address] [employer] Supervisor: Vitaliy Mccall MD GFR/1.73 sq M.predicted among non-blacks MDRD (S/P/Bld) [Vol rate/Area] mL/min/{1.73_m2} Normal >60 [facility] Comment on above: Result Comment: These results are not intended for use in patients <18 years of age. eGFR results are calculated without a race factor using the 2020 CKD-EPI equation. Careful clinical correlation is recommended, particularly when comparing to results calculated using previous equations. The CKD-EPI equation is less accurate in patients with extremes of muscle mass, extra-renal metabolism of creatine, excessive creatine ingestion, or following therapy that affects renal tubular secretion. Performed By: #### C DP, BMP #### [address] [place] [address] [employer] Supervisor: Vitaliy Mccall MD Glucose [Mass/Vol] 118 mg/dL High 70-99 [facility] Comment on above: Performed By: #### C DP, BMP #### [address] [place] [address] [employer] Supervisor: Vitaliy Mccall MD Potassium [Moles/Vol] 3.8 mmol/L Normal 3.7-5.3 [facility] Comment on above: Performed By: #### C DP, BMP #### [facility] [address] [place] [address] [place], [place] 17[address] [employer] Supervisor: Vitaliy Mccall MD Sodium [Moles/Vol] 136 mmol/L Normal 135-144 [facility] Comment on above: Performed By: #### C DP, BMP #### [address] [place] [address] [employer] Supervisor: Vitaliy Mccall MD Urea nitrogen [Mass/Vol] 22 mg/dL High 6-20 [facility] Comment on above: Performed By: #### C DP, BMP #### [facility] [address] [place], [place] [address] [employer] Supervisor: Vitaliy Mccall MD CBC with Diffon 01-22-2023 Abs. Basophil 0.07 k/uL Normal 0.00-0.20 [facility] Comment on above: Performed By: #### C DP, BMP #### [facility] [address] [place], [place] [address] [employer] Supervisor: Vitaliy Mccall MD Abs. Eosinophil <0.03 Normal 0.00-0.44 [facility] Comment on above: Performed By: #### C DP, BMP #### [address] [place] [address] [employer] Supervisor: Vitaliy Mccall MD Abs.Imm.Granulocyte 0.10 k/uL Normal 0.00-0.30 [facility] Comment on above: Performed By: #### C DP, BMP #### [facility] [address] [place], [place] [address] [employer] Supervisor: Vitaliy Mccall MD Abs.Neutrophil (Seg) 16.46 k/uL High 1.50-8.10 [facility] Comment on above: Performed By: #### C DP, BMP #### [facility] [address] [place], [place] [address] [employer] Supervisor: Vitaliy Mccall MD Basophils/100 WBC (Bld) 0 % Normal 0-2 [facility] Comment on above: Performed By: #### C DP, BMP #### [facility] [address] [place], [place] [address] [employer] Supervisor: Vitaliy Mccall MD Eosinophils/100 WBC (Bld) 0 % Low 1-4 [facility] Comment on above: Performed By: #### C DP, BMP #### [facility] [address] [place] [address] Dr[place], [facility]83 [employer] Supervisor: Vitaliy Mccall MD Erythrocyte distribution width (RBC) [Ratio] 12.5 % Normal 11.8-14.4 [facility] Comment on above: Performed By: #### C DP, BMP #### [address] [place], [facility]83 [employer] Supervisor: Vitaliy Mccall MD Hematocrit (Bld) [Volume fraction] 39.0 % Normal 36.3-47.1 [facility] Comment on above: Performed By: #### C DP, BMP #### [address] [place] [address] [employer] Supervisor: Vitaliy Mccall MD Hemoglobin (Bld) [Mass/Vol] 13.0 g/dL Normal 11.9-15.1 [facility] Comment on above: Performed By: #### C DP, BMP #### [address] [place], [facility]83 [employer] Supervisor: Vitaliy Mccall MD Immature granulocytes/100 WBC (Bld) 1 % High 0 [facility] Comment on above: Performed By: #### C DP, BMP #### [address] [place], [facility]83 [employer] Supervisor: Vitaliy Mccall MD Lymphocytes (Bld) [#/Vol] 1.03 10*3/uL Low 1.10-3.70 [facility] Comment on above: Performed By: #### C DP, BMP #### [address] [place], [place] [address]348383 [employer] Supervisor: Vitaliy Mccall MD Lymphocytes/100 WBC (Bld) 6 % Low 24-43 [facility] Comment on above: Performed By: #### C DP, BMP #### [address] [place], [facility]83 [employer] Supervisor: Vitaliy Mccall MD MCH (RBC) [Entitic mass] 29.2 pg Normal 25.2-33.5 [facility] Comment on above: Performed By: #### C DP, BMP #### [address] [place], [place] 4[address]683 [employer] Supervisor: Vitaliy Mccall MD MCHC (RBC) [Mass/Vol] 33.3 g/dL Normal 28.4-34.8 [facility] Comment on above: Performed By: #### C DP, BMP #### [address] [place], [place] 227[address]83 [employer] Supervisor: Vitaliy Mccall MD MCV (RBC) [Entitic vol] 87.6 fL Normal 82.6-102.9 [facility] Comment on above: Performed By: #### C DP, BMP #### [address] [place], [place] 479[address]83 [employer] Supervisor: Vitaliy Mccall MD Monocytes (Bld) [#/Vol] 1.03 10*3/uL Normal 0.10-1.20 [facility] Comment on above: Performed By: #### C DP, BMP #### [address] [place], [place] 48[address]283 [employer] Supervisor: Vitaliy Mccall MD Monocytes/100 WBC (Bld) 6 % Normal 3-12 [facility] Comment on above: Performed By: #### C DP, BMP #### [address] [place], [place] 213[address]83 [employer] Supervisor: Vitaliy Mccall MD Neutrophil (Seg) 87 % High 36-65 [facility] Comment on above: Performed By: #### C DP, BMP #### [address] [place], [place] 480[address]83 [employer] Supervisor: Vitaliy Mccall MD NRBC Automated 0.0 per 100 WBC Normal 0.0 [facility] Comment on above: Performed By: #### C DP, BMP #### [facility] [address] [place] [address] [employer] Supervisor: Vitaliy Mccall MD Platelet mean volume (Bld) [Entitic vol] 10.2 fL Normal 8.1-13.5 [facility] Comment on above: Performed By: #### C DP, BMP #### [address] [place], [place] 7125[address] [employer] Supervisor: Vitaliy Mccall MD Platelets (Bld) [#/Vol] 292 10*3/uL Normal 138-453 [facility] Comment on above: Performed By: #### C DP, BMP #### [address] [place], [place] 616[address]83 [employer] Supervisor: Vitaliy Mccall MD RBC (Bld) [#/Vol] 4.45 10*6/uL Normal 3.95-5.11 [facility] Comment on above: Performed By: #### C DP, BMP #### [address] [place], [place] 246[address]83 [employer] Supervisor: Vitaliy Mccall MD WBC (Bld) [#/Vol] 18.7 10*3/uL High 3.5-11.3 [facility] Comment on above: Performed By: #### C DP, BMP #### [address] [place], [place] 408[address]83 [employer] Supervisor: Vitaliy Mccall MD Flu A/B Ag Detectionon 01-22 Flu A Ag Detection Negative Normal NEG [facility] Comment on above: Result Comment: for Influenza A Antigen Performed By: #### F LUABA #### [address] [place], [place] 944[address]83 [employer] Supervisor: Vitaliy Mccall MD Flu B Ag Detection Negative Normal NEG [facility] Comment on above: Result Comment: for Influenza B Antigen. Performed By: #### F LUABA #### [facility] [address] [place] [address] [employer] Eng[employer]ving Supervisor: Vitaliy Mccall MD HCG Screen, Bloodon 01-23-20 HCG Screen, Blood Negative Normal NEG [facility] Comment on above: Result Comment: Spec imens with hCG levels near the threshold of the test (25 mIU/mL) may give a negative or indeterminate result. In such cases, another test should be performed with a new specimen in 48-72 hours. If early is suspected clinically in this setting, correlation with quantitative serum b-hCG level is suggested. [facility] has confirmed the use of plasma for this test. This has not been cleared or approved by the U.S. Food and Drug Administration. The FDA has determined that such clearance is not necessary. Performed By: #### C DP, BMP #### [address] [place] [address] [employer] Supervisor: Vitaliy Mccall MD Magnesiumon 01-22-2023 Magnesium [Mass/Vol] 2.0 mg/dL Normal 1.6-2.6 [facility] Comment on above: Performed By: #### C DP, BMP #### [address] [place] [address] [employer] Supervisor: Vitaliy Mccall MD [id number] 01-22-2023 SARS-CoV-2 (COVID-19) RNA GARO+probe Ql (Unsp spec) Not detected Normal NOTDET [facility] Comment on above: Result Comment: Rapid NAAT: The specimen is NEGATIVE for SARS-CoV-2, the novel coronavirus associated with COVID-19. The ID NOW COVID-19 assay is designed to detect the virus that causes COVID-19 in patients with signs and symptoms of infection who are suspected of COVID-19. An individual without symptoms of COVID-19 and who is not shedding SARS-CoV-2 virus would expect to have a negative (not detected) result in this assay. Negative results should be treated as presumptive and, if inconsistent with clinical signs and symptoms or necessary for patient management, should be tested with an alternative molecular assay. Negative results do not preclude SARS-CoV-2 infection and should not be used as the sole basis for patient management decisions. Fact sheet for Healthcare Providers: https://www.fda.gov/media/700793/download Fact sheet for Patients: https://www.fda.gov/media/536704/download Methodology: Isothermal Nucleic Acid Amplification Performed By: #### C DP, BMP #### [facility] [address] [place], [place] [id number] [employer] Supervisor: Vitaliy Mccall MD Strep Gr A Direct Agon 01-22 Strep Gr A Direct Ag Positive Abnormal NEG [facility] Comment on above: Result Comment: for Group A Streptococci Performed By: #### H CG #### [address] [place], [facility]83 [employer] Supervisor: Vitaliy Mccall MD Source .THROAT SWAB Normal [facility] Comment on above: Performed By: #### H CG #### [address] [place], [facility]83 [employer] Supervisor: Vitaliy Mccall MD Troponinon 01-22-2023 Troponin, High Sens 6 ng/L Normal 0-14 [facility] Comment on above: Result Comment: High Sensitivity Troponin values cannot be compared with other Troponin methodologies. Performed By: #### C DP, BMP #### [address] [place], [facility]83 [employer] Supervisor: Vitaliy Mccall MD Urinalysis, Routineon 2022 Bilirubin, SemiQt,Ur Negative Normal NEG [facility] Comment on above: Performed By: #### U A, UMICAO #### [address] [place] [id number] [employer] Eng[employer] Supervisor: Vitaliy Mccall MD Blood, Urine TRACE Abnormal NEG [facility] Comment on above: Performed By: #### U A, UMICAO #### [address] [place] [id number] [employer] Supervisor: Vitaliy Mccall MD Clarity (U) Clear Normal CLEAR [facility] Comment on above: Performed By: #### U A, UMICAO #### [facility] [address] [place], [place] [id number] [employer] Supervisor: Vitaliy Mccall MD Color (U) Yellow Normal YEL [facility] Comment on above: Performed By: #### U A, UMICAO #### [facility] [address] [place], [place] [id number] [employer] Supervisor: Vitaliy Mccall MD Glucose Ql (U) Negative Normal NEG [facility] Comment on above: Performed By: #### U A, UMICAO #### [facility] [address] [place] [address] Dr[address] [place], [place] [id number] [employer] Supervisor: Vitaliy Mccall MD Ketones Ql (U) Negative Normal NEG [facility] Comment on above: Performed By: #### U A, UMICAO #### [facility] [address] [place] [address] Dr[address] [place], [place] [id number] [employer] Supervisor: Vitaliy Mccall MD Leukocyte esterase Test strip Ql (U) Negative Normal NEG [facility] Comment on above: Performed By: #### U A, UMICAO #### [facility] [address] [place] [address] Dr[address] [place], [place] [id number] [employer] Supervisor: Vitaliy Mccall MD Nitrite,Ur Negative Normal NEG [facility] Comment on above: Performed By: #### U A, UMICAO #### [facility] [address] [place], [place] [id number] [employer] Supervisor: Vitaliy Mccall MD PH,Ur 6.5 Normal 5.0-9.0 [facility] Comment on above: Performed By: #### U A, UMICAO #### [facility] [address] [place], [place] [phone] [employer] Supervisor: Vitaliy Mccall MD Protein Ql (U) Negative Normal NEG [facility] Comment on above: Performed By: #### U A, UMICAO #### [facility] [address] [place] [address] [place] [place], [place] [id number] [employer] Supervisor: Vitaliy Mccall MD Spec. [place],Ur <1.005 Low 1.010-1.020 [facility] Comment on above: Performed By: #### U A, UMICAO #### [facility] [address] [place] [address] [place] [address] [employer] Eng[employer]ving Supervisor: Vitaliy Mccall MD Urobilinogen,Ur Normal Normal NORM [facility] Comment on above: Performed By: #### U A, UMICAO #### [address] [place], [place] [phone] [employer] Supervisor: Vitaliy Mccall MD Urinalysis,Microon 3 Bacteria 1+ Abnormal NONE [facility] Comment on above: Performed By: #### U A, UMICAO #### [address] [place], [place] [id number] [employer] Supervisor: Vitaliy Mccall MD Epithelial cells LM Ql (Urine sed) 2 TO 5 Normal 0-25 [facility] Comment on above: Performed By: #### U A, UMICAO #### [facility] [address] [place] [address] [place] [address] [employer]ving Supervisor: Vitaliy Mccall MD Urine RBC's 2 TO 5 Normal 0-2 [facility] Comment on above: Performed By: #### U A, UMICAO #### [facility] [address] [place] [address] Dr[address] [place], [place] [id number] [employer] Supervisor: Vitaliy Mccall MD Urine WBC's None Normal 0-5 [facility] Comment on above: Performed By: #### U A, UMICAO #### [facility] [address] [place] [address] [place], [place] [id number] [employer] Supervisor: Vitaliy Mccall MD XR CHEST PORTABLEon 01-23-20 XR CHEST PORTABLE EXAMINATION: ONE XRAY VIEW OF THE CHEST 01/22/2023 7:58 am COMPARISON: Two-view chest from 04/18/2021 HISTORY: ORDERING SYSTEM PROVIDED HISTORY: cp TECHNOLOGIST PROVIDED HISTORY: cp FINDINGS: Overlying brassiere related metal. Low lung volumes accentuating markings but lungs are without acute focal process. There is no effusion or pneumothorax. Probable mild basilar atelectasis. The cardiomediastinal silhouette is without acute process. Cardiac size WNL for AP technique. The osseous structures are without acute process. Prior fracture left clavicle. IMPRESSION: No acute process. Interpreted by: Zia Beck MD Signed by: Zia Beck MD 01/22/23 Final result Normal [facility] COVID-19, Rapidon 11-06-2022 Interpretation and review of laboratory results Abnormal [facility] SARS-CoV-2 (COVID-19) RdRp gene GARO+probe Ql (Resp) Detected Abnormal Not Detected [facility] Comment on above: Rapid NAAT: The specimen is POSITIVE for SARS-Cov-2, the novel coronavirus associated with COVID-19. This test has been authorized by the FDA under an Emergency Use Authorization (EUA) for use by authorized laboratories. The ID NOW COVID-19 assay is designed to detect the virus that causes COVID-19 in patients with signs and symptoms of infection who are suspected of COVID-19. An individual without symptoms of COVID-19 and who is not shedding SARS-CoV-2 virus would expect to have a negative (not detected) result in this assay. Fact sheet for Healthcare Providers: https://www.fda.gov/media/894704/download Fact sheet for Patients: https://www.fda.gov/media/082233/download Methodology: Isothermal Nucleic Acid Amplification Results reported to the appropriate Health Department Specimen Description .NASOPHARYNGEAL SWAB [facility] Rapid influenza A/B antigens on 11-06-2022 FLUAV Ag Ql (Unsp spec) Negative NEGATIVE B ON [facility] Comment on above: for Influenza A Anti gen FLUBV Ag Ql (Unsp spec) Negative NEGATIVE B ON [facility] Comment on above: for Influenza B Anti gen. ANALIA [facility] Otolaryngology Office/Clinic Noteon 09-13-2022 Otolaryngology Office/Clinic Note Chief Complaint I am coming in for right ear check. History of Present Illness Kizzy is a very pleasant 37-year-old female who presents for follow-up. She has a history of recurrent ear infections, follows with Missy Sims PA-C. She had recurrent ear infections treated with oral antibiotics, otic antibiotic drops, and steroids. She was found to have a right TM perforation. She had a hearing test demonstrating mixed hearing loss bilaterally. She subsequently had a CT IAC which was unremarkable. She presents today to discuss surgery for TM perforation. Review of Systems General Cardiovascular EENMT Ear drainage: Yes Ear pain: No Hearing loss: Yes Tinnitus: Yes Gastrointestinal Genitourinary Hematologic/Lymphati c Musculoskeletal Neurological Psychiatric Respiratory Skin 13-point review of systems is negative unless otherwise specifically noted above. Physical Exam Vitals & Measurements BP: 109/75 Additional Vitals BP Position/Location: Sitting, Left arm Constitutional: Well-developed, well-nourished Communication and Voice: Clear pitch and clarity, age appropriate Head and Face Inspection: Normocephalic and atraumatic without masses or lesions Palpation: Facial skeleton intact without bony stepoffs, no sinus tenderness Ear Pinna: Left - External ear intact and fully developed Right - External ear intact and fully developed External canal: Left - Canal is patent with intact skin Right - Canal is patent with intact skin Cerumen: Left - Normal amount and character, non-obstructing Right - Normal amount and character, non-obstructing Tympanic Membranes: Left - Clear and mobile, retracted. Right - Clear and mobile Middle Ears: Left - Aerated, no effusion, no masses Right - Aerated, no effusion, no masses Data Reviewed An audiogram was obtained 07/04/2022 and reviewed today. The speech recognition thresholds were 35dB in the right ear and 30dB in the left ear. Word recognition scores were 96% in the right ear and 100% in the left ear. Tympanogram showed type B on the right and type Ad on the left. CT IAC 08/08/2022 -no middle ear or mastoid opacification, ossicular chain intact Assessment/Plan 1. Perforation of right tympanic membrane Her right TM perforation has healed and there is no residual perforation. Therefore surgery is no longer necessary. 2. Mixed hearing loss We reviewed the results of her hearing test. This hearing test was obtained when she had right TM perforation therefore is no longer an accurate reflection of her hearing today. We recommend repeating hearing test in 6 months. 3. History of recurrent ear infection The exact etiology to her recurrent ear infection is unclear. It is unclear whether she is having recurrent middle ear effusion which results in TM perforation and subsequent otorrhea. Alternatively, the otorrhea that she experiences could also represent acute otitis externa. For now, recommend observation. If she does develop ear infection, encouraged her to call us so we can examine. Follow-up in 6 months. Medical Decision Making Chronic conditions NOT treated during this visit that affected my overall medical decision making: [] Treatment plans discussed but not opted for at this time: [] Prescribed medication that requires intensive monitoring for toxicity: [] I have reviewed the patient?s medication list for medication interactions/contrai ndications and/or for upcoming procedures: [yes or no] Time Spent with the Patient I have personally spent [25] minutes on this date, directly related to today's patient visit, including pre and post visit work, for this date of service. Time listed does not include time spent on separately billable services. Problem List/Past Medical History Ongoing ADHD - Attention deficit disorder with hyperactivity Depression PTSD - Post-traumatic stress disorder Stomach ulcer Historical No qualifying data Procedure/Surgical History ANESTH TUBAL LIGATION section REMOVAL OF ADENOIDS Medications MetFORMIN (Eqv-Glucophage XR) 500 mg oral tablet, extended release naproxen 500 mg oral tablet neomycin/polymyxin B/hydrocortisone 0.35%-10,000 units/mL-1% otic solution NexIUM 20 mg oral delayed release capsule, 20 mg= 1 caps, Oral, Daily prazosin 2 mg oral capsule rOPINIRole 0.5 mg oral tablet Allergies Nubain (unknown) Social History Tobacco Never (less than 100 in lifetime) Use:. Never Smokeless tobacco use:. Family History Patient was adopted Electronically signed by Bruno Dewey MD, Chi 01/04/23 11:49 EST Normal [facility] Manny 08-17-2022 ALT [Catalytic activity/Vol] 19 U/L 5 - 33 U/L [facility] Veronica 08-17-2022 AST [Catalytic activity/Vol] 16 U/L NINF - 32 U/L [facility] Basic Metabolic Panelon 12-0 Anion gap [Moles/Vol] 7 mmol/L Low 9 - 17 mmol/L [facility] [employer] [facility] Calcium [Mass/Vol] 10.0 mg/dL 8.6 - 10. 4 mg/dL [facility] Chloride [Moles/Vol] 103 mmol/L 98 - 10 7 mmol/L [facility] CO2 [Moles/Vol] 28 mmol/L 20 - 31 mmol/L [facility] Creatinine [Mass/Vol] 0.78 mg/dL 0.50 - 0.90 mg/dL [facility] GFR/1.73 sq M.predicted MDRD (S/P/Bld) [Vol rate/Area] - PINF [facility] Comment on above: Effective Jun 12, 2022 These results are not intended for use in patients <18 years of age. eGFR results are calculated without a race factor using the 2020 CKD-EPI equation. Careful clinical correlation is recommended, particularly when comparing to results calculated using previous equations. The CKD-EPI equation is less accurate in patients with extremes of muscle mass, extra-renal metabolism of creatine, excessive creatine ingestion, or following therapy that affects renal tubular secretion. Glucose [Mass/Vol] 89 mg/dL 70 - 99 mg/dL [email or web address] Interpretation and review of laboratory results Abnormal [facility] [employer] [facility] Potassium [Moles/Vol] 4.2 mmol/L 3.7 - 5.3 mmol/L [facility] Sodium [Moles/Vol] 138 mmol/L 135 - 144 mmol/L [facility] Urea nitrogen (BldV) [Mass/Vol] 20 mg/dL 6 - 20 mg/dL [facility] Urea nitrogen/Creatinine (Bld) [Mass ratio] 26 High 9 - 20 [facility]ITALPortapureGEOR[facility] CBC with Auto Differentialon 08-17-2022 Absolute Eos # 0.20 [facility] Absolute Immature Granulocyte [facility] Absolute Lymph # 2.57 [facility] Absolute Garrett # 0.57 [facility] Basophils (Bld) [#/Vol] 0.04 10*3/uL [facility] Basophils/100 WBC (Bld) 0 % 0 - 2 % B ON [facility] Eosinophils/100 WBC (Bld) 2 % 1 - 4 % [facility] Hematocrit (Bld) [Volume fraction] 37.5 % 36.3 - 47.1 % [facility] Hemoglobin (Bld) [Mass/Vol] 12.7 g/dL 11.9 - 15.1 g/dL [facility] Immature granulocytes/100 WBC (Bld) 0 % 0 [facility] Lymphocytes/100 WBC (Bld) 28 % 24 - 43 % [facility] MCH (RBC) [Entitic mass] 29.5 pg 25.2 - 33.5 pg [facility] MCHC (RBC) [Mass/Vol] 33.9 g/dL 28.4 - 34.8 g/dL [facility] MCV (RBC) [Entitic vol] 87.2 fL 82.6 - 102.9 fL [facility] Monocytes/100 WBC (Bld) 6 % 3 - 12 % B ON [facility] NRBC Automated 0.0 0.0 per 100 WBC [facility] Platelet distribution width (Bld) [Ratio] 12.5 % 11.8 - 14.4 % [facility] Platelet mean volume (Bld) [Entitic vol] 9.6 fL 8.1 - 13.5 fL [facility] Platelets (Bld) [#/Vol] 350 10*3/uL [facility] RBC (Bld) [#/Vol] 4.30 10*6/uL 3.95 - 5.1 1 m/uL [facility] Segmented neutrophils/100 WBC (Bld) 64 % 36 - 65 % [facility] Segs Absolute 5.72 [facility] WBC (Bld) [#/Vol] 9.1 10*3/uL [facility] Hemoglobin A1Con 08-17-2022 Glucose [Mass/Vol] 126 mg/dL [facility] [employer] Comment on above: The ADA and AACC rec ommend providing the estimated average glucose result to permit better patient understanding of their HBA1c result. HbA1c (Bld) [Mass fraction] 6.0 % 4.0 - 6.0 % [facility] [facility] [employer] LDL Cholesterol, Directon Cholesterol in LDL [Mass/Vol] 126 mg/dL High NINF - 100 mg/dL [facility] [employer] Interpretation and review of laboratory results Abnormal [facility] Apptive [facility] [employer] Lipid Panelon 08-17-2022 Cholesterol [Mass/Vol] 245 mg/dL High NINF - 200 mg/dL [facility] [employer] Comment on above: Cholesterol Guidelines: <200 Desirable 200-240 Borderline >240 Undesirable Cholesterol in HDL [Mass/Vol] 32 mg/dL Low 40 - PINF mg/dL [facility] [employer] Comment on above: HDL Guidelines: <40 Undesirable 40-59 Borderline >59 Desirable Cholesterol.total/Lexi sterol in HDL [Mass ratio] 7.7 {ratio} High NINF - 5 [facility] [employer] Interpretation and review of laboratory results Abnormal [facility] [employer] LDL Cholesterol 0 - 130 mg/dL [facility] [employer] Comment on above: Calculation not nicole d for Triglyceride value greater than 400 mg/dL. Direct LDL reflexed LDL Guidelines: <100 Desirable 100-129 Near to/above Desirable 130-159 Borderline >159 Undesirable Direct (measured) LDL and calculated LDL are not interchangeable tests. Triglyceride [Mass/Vol] 784 mg/dL High NINF - 150 mg/dL [facility] [employer] Comment on above: Triglyceride Guidelines: <150 Desirable 150-199 Borderline 200-499 High >499 Very high Based on AHA Guidelines for fasting triglyceride, June 2012. [facility]ITAL[facility] Microalbumin, Uron 2 Albumin/Creatinine DL <= 20 mg/L (24H U) [Mass ratio] mg/L NINF - 21 mg/L [facility] Albumin/Creatinine DL <= 20 mg/L (U) [Ratio] Can not be calculated [facility] Creatinine [Mass/Vol] 76.3 mg/dL 28.0 - 217.0 mg/dL [facility] No Panel Informationon 08-17 [facility] Otolaryngology Office/Clinic Noteon 08-09-2022 Otolaryngology Office/Clinic Note Chief Complaint Pt states Here for Ct results/ear check History of Present Illness History of Present Illness HPI: Kizzy is here today to review CT results/check on ear. States still experiencing HL and this has not improved. no recent drainage however. Last audio noted bilat hearing loss with conductive component present in the right ear of 25 db. She has hx of sig hx of recurrent ear infections over the last several years. Review of Systems General Adult ROS Fatigue: No Appetite change: No Other General: No Weakness: No Weight gain: No Weight Loss: No Cardiovascular Chest pain/pressure: No Claudication: No Edema: No Orthopnea: No Other Cardiovascular: No Palpitations: No Syncope: No EENMT Bleeding gums: No Dental pain: No Ear drainage: No Ear pain: No Facial pain: No Hearing loss: Yes Hoarseness: No Mouth lesions: No Nasal congestion: No Nasal discharge: No Nosebleeds: No Other EENMT: No Postnasal drainage: No Sore_throat: No Tinnitus: No Vision Changes: No Gastrointestinal Abdominal pain: No Constipation: No Diarrhea: No Dysphagia: No Fecal incontinence: No Heartburn: No Nausea: No Other GI: No Stools, black/bloody: No Vomiting: No Vomiting blood: No Genitourinary Decreased urine output: No Dysuria: No Frequency: No Genital irritation: No Hematuria: No Hesitancy: No Impaired urge sensation: No Other Genitourinary: No Polyuria: No Sexual dysfunction: No Urgency: No Urinary Incontinence: No Vaginal discharge: No Hematologic/Lymphati c Musculoskeletal Neurological Psychiatric Respiratory Apnea: No Cough: No Hemoptysis: No Other Respiratory: No Shortness_of_breath: No Snoring: No Sputum production: No Wheezing: No Skin Physical Exam Vitals & Measurements T: 37.0 ?C (Temporal Artery) WT: 89.9 kg WT: 89.9 kg (Dosing) Additional Vitals No qualifying data available. Overall:[Communicati on mode is clear, normal] [Appearance- no acute distress, appears stated age and is well nourished] Assistive device:[ none] Head:[normocephalic, no trauma, lesions or asymmetry] Ocular appearance:[ Conjuctiva- clear and bright, no drainage or infection. EOM intact] Ears:[ external ear- normal shape, no signs of infection, mass, lesion or asymmetry bilaterally. Ear canal is healthy, free from wax and infection, bilaterally] [Eardrum-healthy, no sign of infection, trauma, perforation or infection, left. Right has clean dry central perf] [Middle ear- healthy, no obvious fluid present or infection] Nose:[ External- healthy, no sign of asymmetry, lesion or infection] Septum:[ Midline, no sign of perforation, infection or deviation] Turbinates:[ normal, no hypertrophy, mass or polyp] Nasal passages:[ clear, no infection, drainage or obstruction] Oral cavity:[ Normal, tongue healthy no mass, lesion or infection. Soft and hard palate normal. Bimanual palpation is normal. Mucosa moist, free from infection][ Benign gingiva, good dental hygiene][Tonsil size is normal, no asymmetry, mass or lesionn][oropharynx- clear, no evidence of post nasal drip, cobblestoning or other abnormalities] Mental Status:[Alert and oriented x3][Mood and affect normal][Gait is normal]. Assessment/Plan 1. Perforated right tympanic membrane on examination Pt has central right ear perf, with conductive hearing loss. CT was done of ME and this was personally reviewed to ensure no chronic ME issue or cholesteatoma, this was normal. Discussed options including monitoring, keep ear dry and HAE for loss vs tympanoplasty. Pt wishes to consider options and will call office if wishes to move forward. otherwise f/u in 8 weeks to monitor ear 2. Conductive hearing loss in right ear Medical Decision Making Chronic conditions NOT treated during this visit that affected my overall medical decision making: [] Treatment plans discussed but not opted for at this time: [] Prescribed medication that requires intensive monitoring for toxicity: [] I have reviewed the patient?s medication list for medication interactions/contrai ndications and/or for upcoming procedures: [yes or no] Time Spent with the Patient I have personally spent [28] minutes on this date, directly related to today's patient visit, including pre and post visit work, for this date of service. Time listed does not include time spent on separately billable services. Problem List/Past Medical History Ongoing ADHD - Attention deficit disorder with hyperactivity Depression PTSD - Post-traumatic stress disorder Stomach ulcer Historical No qualifying data Procedure/Surgical History ANESTH TUBAL LIGATION section REMOVAL OF ADENOIDS Medications MetFORMIN (Eqv-Glucophage XR) 500 mg oral tablet, extended release naproxen 500 mg oral tablet neomycin/polymyxin B/hydrocortisone 0.35%-10,000 units/mL-1% otic solution NexIUM 20 mg oral delayed release capsule, 20 mg= 1 caps, Oral, (more content not included)... Normal [facility] Audiology Office/Clinic Note on 07-20-2022 Audiology Office/Clinic Note Kizzy was seen to knot picker cloth custom swimplugs after remake. Her initial set was leaking. When she was seen on 07/12/22 to discuss the remake, she had an active ear infection and a new earmold impression was not able to be taken for the remake. Rock [employer] Sprayer was informed where to build up the swimplug and new earmolds were made. When she was seen today, she still had an active ear infection; therefore, swimplugs were not inserted into her ears for visual inspection; however, patient is a previous user and will let us know if the swimplug does not fit properly. Follow-up as needed. n/c Electronically signed by Yulia Hi 07/21/22 09:32 EST Normal [facility] Audiology Office/Clinic Note on 07-12-2022 Audiology Office/Clinic Note Kizzy was seen to discuss remaking her right swim mold. She stated she has noticed some leakage occurring in the siri. She currently has an ear infection in the right ear and therefore a new ear mold impression was not taken. Instructions to build-up the areas of concern on the remade swim plug will be sent to the artillery officer. Due to the current ear infection and inability to make a new impression, the artillery officer has agreed to extend the remake warranty. Kizzy will be called once the new swim mold is in for dispense and to check fit. n/c Electronically signed by Yulia Hi 07/12/22 13:23 EDT Normal [facility] US PELVIS AND TRANSVAGon US PELVIS AND TRANSVAG EXAMINATION: US PELVIS AND TRANSVAG HISTORY: Pelvic and perineal pain ; chronic right pelvic pain COMPARISON: Ultrasound pelvis 11/10/2020 TECHNIQUE: Transabdominal and transvaginal sonographic examination. FINDINGS: UTERUS: Hysterectomy. RIGHT OVARY: Normal size and appearance. Duplex Doppler demonstrates normal waveform and flow; resistive index 0.6. Ovary size: 3.0 x 2.1 x 2.3 cm LEFT OVARY: Contains a complex 1.6 cm cm cyst versus collection of small follicles. Duplex Doppler demonstrates normal waveform and flow; resistive index 0.4. Ovary size: 3.3 x 1.9 x 2.0 cm CUL-DE-SAC: Unremarkable. No significant free fluid. BLADDER: Unremarkable. OTHER: None. IMPRESSION: 1. No acute or specific findings to account for patient's right pelvic pain. Electronically authenticated by: CINDY PINK Date: 2022-07-06 17:16 Normal [facility] Otolaryngology Office/Clinic Noteon 07-04-2022 Otolaryngology Office/Clinic Note Chief Complaint 'I am in for recurrent ear infections.' History of Present Illness History of Present Illness HPI: Pt is in today for recurrent ear infections. Pt states for the last 3 mo. she's had a consistent ear infection. She's been on 2 rounds of atb, 2 rounds of drops, and had a steroid shot. Pt complains of hearing loss in the rt ear as well as ear drainage. She has right ear pain as well.She has hearing loss and itching as well. She has known hx of sig ear issues most of her life with recurrent infections. SHe did well as adult until the last 3 months. She has known hearing loss but this has previously been worse in the left ear. Review of Systems General Adult ROS Fatigue: No Appetite change: No Other General: No Weakness: No Weight gain: No Weight Loss: No Cardiovascular Chest pain/pressure: No Claudication: No Edema: No Orthopnea: No Other Cardiovascular: No Palpitations: No Syncope: No EENMT Bleeding gums: No Dental pain: No Ear drainage: Yes Ear pain: Yes Facial pain: No Hearing loss: Yes Hoarseness: No Mouth lesions: No Nasal congestion: No Nasal discharge: No Nosebleeds: No Other EENMT: No Postnasal drainage: No Sore_throat: No Tinnitus: No Vision Changes: No Gastrointestinal Genitourinary Hematologic/Lymphati c Musculoskeletal Neurological Psychiatric Respiratory Apnea: No Cough: No Hemoptysis: No Other Respiratory: No Shortness_of_breath: No Snoring: No Sputum production: No Wheezing: No Skin Physical Exam Vitals & Measurements T: 36.6 ?C (Temporal Artery) HT: 163 cm WT: 87.4 kg WT: 87.4 kg (Dosing) BMI: 32.9 Additional Vitals No qualifying data available. Overall:[Communicati on mode is clear, normal] [Appearance- no acute distress, appears stated age and is well nourished] Assistive device:[ none] Head:[normocephalic, no trauma, lesions or asymmetry] Ocular appearance:[ Conjuctiva- clear and bright, no drainage or infection. EOM intact] Ears:[ external ear- normal shape, no signs of infection, mass, lesion or asymmetry bilaterally. Ear canal is healthy, free from wax and infection,left. Right has wetness in canal] [Eardrum-healthy, no sign of infection, trauma, perforation or infection, left. Right has sig retraction pocket/perf inferior drum with erythema and moisture present.] Nose:[ External- healthy, no sign of asymmetry, lesion or infection] Septum:[ Midline, no sign of perforation, infection or deviation] Turbinates:[ normal, no hypertrophy, mass or polyp] Nasal passages:[ clear, no infection, drainage or obstruction] Oral cavity:[ Normal, tongue healthy no mass, lesion or infection. Soft and hard palate normal. Bimanual palpation is normal. Mucosa moist, free from infection][ Benign gingiva, good dental hygiene][Tonsil size is normal, no asymmetry, mass or lesionn][oropharynx- clear, no evidence of post nasal drip, cobblestoning or other abnormalities] Mental Status:[Alert and oriented x3][Mood and affect normal][Gait is normal]. Tympanogram: [Normal left. RIght is flat with large volume] Audiogram:[ Word recognition is normal. Hearing is reduced bilat with mixed loss Assessment/Plan 1. Otorrhea of right ear Pt has 3 m of worsening ear pain, drainage and hearing loss on the right side with sig hx of ME issues in the past. THere is concerns of cholesteatoma with sig ear hx. Pt has sig abnormal exam with TM perf right side and appearance of infection. Plan for imaging for ME to determine if further surgical intervention is warranted. Ordered: [id number] Air bone pure tone audiometry POC CT IAC w/o Contrast Tympanometry POC Orders: predniSONE, 3 tabs, Oral, Daily, then 2 qam for 4 days then 1 qam for 3 days, X 3 days, # 20 tabs, 0 Refill(s), 07/07/22 10:51:00 EDT, Pharmacy: [facility] [id number] 2. Perforated right tympanic membrane on examination 3. Chronic serous otitis media, right ear 4. Mixed hearing loss, bilateral Pt has sig hearing loss bilat, HAE is medically necessary and recommended Medical Decision Making Chronic conditions NOT treated during this visit that affected my overall medical decision making: [] Treatment plans discussed but not opted for at this time: [] Prescribed medication that requires intensive monitoring for toxicity: [] I have reviewed the patient?s medication list for medication interactions/contrai ndications and/or for upcoming procedures: [yes or no] Time Spent with the Patient I have personally spent [48] minutes on this date, directly related to today's patient visit, including pre and post visit work, for this date of service. Time listed does not include time spent on separately billable services. Problem List/Past Medical History Ongoing ADHD - Attention deficit disorder with hyperactivity Depression PTSD - Post-traumatic stress disorder Stomach ulcer Historical No qualifying data Procedure/Surgical History ANESTH TUBAL LIGATION section (more content not included)... Normal [facility] Otolaryngology Office/Clinic Note Chief Complaint Chief Complaint 'I am in for recurrent ear infections.' Physical Exam Vitals & Measurements T: 36.6 ?C (Temporal Artery) HT: 163 cm WT: 87.4 kg WT: 87.4 kg (Dosing) BMI: 32.9 Additional Vitals No qualifying data available. Assessment/Plan 1. Otorrhea of right ear Ordered: [id number] Air bone pure tone audiometry POC Tympanometry POC Medical Decision Making Chronic conditions NOT treated during this visit that affected my overall medical decision making: [] Treatment plans discussed but not opted for at this time: [] Prescribed medication that requires intensive monitoring for toxicity: [] I have reviewed the patient?s medication list for medication interactions/contrai ndications and/or for upcoming procedures: [yes or no] Time Spent with the Patient I have personally spent [] minutes on this date, directly related to today's patient visit, including pre and post visit work, for this date of service. Time listed does not include time spent on separately billable services. Problem List/Past Medical History Ongoing No qualifying data Historical No qualifying data Medications No active medications Allergies No active allergies Social History Tobacco Never (less than 100 in lifetime) Use:. Never Smokeless tobacco use:. Missy Sims PA-C Normal [facility] Comment on above: Order Comment: jaspreet gale C-Reactive Proteinon 022 CRP [Mass/Vol] 3.1 mg/L 0 - 5 mg/L [facility] Rheumatoid Factoron 06-21-20 22 Rheumatoid Factor <10 [facility]INF [facility] Sedimentation Rateon 022 Sed Rate 9 [facility] PAP ACOG PANEL 2: 30 to 65on 04-04-2022 . . Normal [facility] Comment on above: Result Comment: Perf ormed at: WB Performed By: #### [id number] #### [facility] [address] [place], [place] [address] Dr. Cesar Tolbert Age Gdln ACOG Testing 30-65 Normal [facility] Comment on above: Performed By: #### [id number] #### [facility] [address] [place] [address] Dr. Cesar Tolbert DIAGNOSIS: Comment Normal [facility] Comment on above: Result Comment: NEGA TIVE FOR INTRAEPITHELIAL LESION OR MALIGNANCY. THIS SPECIMEN WAS RESCREENED PART OF OUR SPRAYER MACHINE PROGRAM. Performed at: WB Performed By: #### [id number] #### [facility] [address] [place] [address] Dr. Cesar Tolbert HPV Aptima Positive Abnormal Negative [facility] Comment on above: Result Comment: This nucleic acid amplification test detects fourteen high-risk HPV types (16,18,31,33,35,39,45,51,52,56,58,59,66,68) without differentiation. Performed at: =G Performed By: #### [id number] #### [facility] [address] [place] [address] Dr. Cesar Tolbert HPV Genotype 16 Negative Normal Negative [facility] Comment on above: Result Comment: Perf ormed at: =G Performed By: #### [id number] #### [facility] [address] [place] [address] Dr. Cesar Tolbert HPV Genotype 18,45 Negative Normal Negative [facility] Comment on above: Result Comment: Perf ormed at: =G Performed By: #### [id number] #### [facility] [address] [place] [address] Dr. Cesar Tolbert Methodology: Comment Normal [facility] Comment on above: Result Comment: This liquid based ThinPrep(R) pap test was screened with the use of an image guided system. Performed at: WB Performed By: #### [id number] #### [facility] [address] [place] [address] Dr. Cesar Tolbert Note: Comment Normal [facility] Comment on above: Result Comment: The Pap smear is a screening test designed to aid in the detection of premalignant and malignant conditions of the uterine cervix. It is not a diagnostic procedure and should not be used as the sole means of detecting cervical cancer. Both false-positive and false-negative reports do occur. . Performed at: WB Performed By: #### [id number] #### [facility] [address] [place] [address] [address] Cesar Tolbert Performed by: Comment Normal [facility] Comment on above: Result Comment: Rom Collier, Manpower Development Specialist Manager (ASCP) Performed at: WB Performed By: #### [id number] #### [facility] [address] [place] [address] [address] Cesar Tolbert QC reviewed by: Comment Normal [facility] Comment on above: Result Comment: Halle Bazan, Manpower Development Specialist Manager (ASCP) Performed at: WB Performed By: #### [id number] #### [facility] [address] [place] [address] [address] Cesar Tolbert Specimen adequacy: Comment Normal [facility] Comment on above: Result Comment: Sati sfactory for evaluation. No endocervical component is identified. Performed at: WB Performed By: #### [id number] #### [facility] [address] [address] [address] Cesar Tolbert APTTon 10-10-2021 aPTT Coag (Bld) [Time] 27.4 s [facility] Comment on above: IV Heparin Therapy Range: 62.0-94.0 [employer] Basic Metabolic Panelon 09-12 Anion gap [Moles/Vol] 13 mmol/L 9 - 17 mmol/L [facility] Calcium [Mass/Vol] 9.3 mg/dL 8.6 - 10. 4 mg/dL [facility] Chloride [Moles/Vol] 100 mmol/L 98 - 10 7 mmol/L [facility] CO2 [Moles/Vol] 24 mmol/L 20 - 31 mmol/L [facility] Creatinine [Mass/Vol] 0.77 mg/dL 0.50 - 0.90 mg/dL [facility] GFR >60 >60 mL/min [facility] GFR Non- >60 >60 mL/min [facility] Glucose [Mass/Vol] 121 mg/dL High 70 - 99 mg/dL [facility] Interpretation and review of laboratory results Abnormal [facility] Potassium [Moles/Vol] 4.1 mmol/L 3.7 - 5.3 mmol/L [facility] Sodium [Moles/Vol] 137 mmol/L 135 - 144 mmol/L [facility] Urea nitrogen (BldV) [Mass/Vol] 11 mg/dL 6 - 20 mg/dL [facility] Urea nitrogen/Creatinine (Bld) [Mass ratio] 14 [facility] CBCon 10-10-2021 Hematocrit (Bld) [Volume fraction] 39.0 % 36.3 - 47.1 % [facility] Hemoglobin.gastrointest inal spec 1 Ql (Stl) 12.4 g/dL 11.9 - 15.1 g/dL [facility] MCH (RBC) [Entitic mass] 27.4 pg 25.2 - 33.5 pg [facility] MCHC (RBC) [Mass/Vol] 31.8 g/dL 28.4 - 34.8 g/dL [facility] MCV (RBC) [Entitic vol] 86.3 fL 82.6 - 102.9 fL [facility] NRBC Automated 0.0 0.0 per 100 WBC [facility] Platelet distribution width (Bld) [Ratio] 12.8 % 11.8 - 14.4 % [facility] Platelet mean volume (Bld) [Entitic vol] 9.8 fL 8.1 - 13.5 fL [facility] Platelets (Bld) [#/Vol] 290 10*3/uL [facility] RBC (Bld) [#/Vol] 4.52 10*6/uL 3.95 - 5.1 1 m/uL [facility] WBC (Bld) [#/Vol] 7.8 10*3/uL [facility] Laboratory - Chemistry and C hemistry - challengeon 10-10-2021 GFR/1.73 sq M.predicted MDRD (S/P/Bld) [Vol rate/Area] [facility] Comment on above: Average GFR for 30-3 9 years old: 107 mL/min/1.73sq m Chronic Kidney Disease: <60 mL/min/1.73sq m Kidney failure: <15 mL/min/1.73sq m eGFR calculated using average adult body mass. Additional eGFR calculator available at: http://www.Tellja/multiple_crcl_2012.htm Stage 1: Some kidney damage normal GFR Stage 2: Mild kidney damage GFR 60-89 Stage 3: Moderate kidney damage GFR 30-59 Stage 4: Severe kidney damage GFR 15-29 Stage 5: Severe kidney damage GFR <15 ESRD - chronic treatment by dialysis or transplant Protime-INRon 10-10-2021 INR Coag (Bld) [Relative time] 1.1 {INR}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 By: Junior Rodriguez on 08-22-2019 Negative lumbar spine with redemonstration of lumbosacral transition anomaly as described. [employer] Phone: EXAMINATION: THREE XRAY VIEWS OF THE LUMBAR SPINE 08/22/2019 4:43 pm COMPARISON: 03/14/2016 HISTORY: ORDERING SYSTEM PROVIDED HISTORY: Low back pain, unspecified back pain laterality, unspecified chronicity, unspecified whether sciatica present FINDINGS: Lumbar vertebral bodies are normal in height and alignment. 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 No evidence of fracture. Visualized sacrum is unremarkable. No significant degenerative changes. [employer] Phone: Toño, Mhpn Incoming Radiant Results From [employer] - 08/22/2019 5:06 PM EST EXAMINATION: THREE XRAY VIEWS OF THE LUMBAR SPINE 08/22/2019 4:43 pm COMPARISON: 03/14/2016 HISTORY: ORDERING SYSTEM PROVIDED HISTORY: Low back pain, unspecified back pain laterality, unspecified chronicity, unspecified whether sciatica present FINDINGS: Lumbar vertebral bodies are normal in height and alignment. 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 No evidence of fracture. Visualized sacrum is unremarkable. No significant degenerative changes. IMPRESSION: Negative lumbar spine with redemonstration of lumbosacral transition anomaly as described. [employer] Phone: CBC Auto Differentialon 07-12 Basophils (Bld) [#/Vol] 0.05 10*3/uL [place] Basophils/100 WBC (Bld) 1 % 0 - 2 % M [place] Differential Type NOT REPORTED [place] Eosinophils (Bld) [#/Vol] 0.10 10*3/uL [place] Eosinophils/100 WBC (Bld) 1 % 1 - 4 % [place] Erythrocyte distribution width (RBC) [Ratio] 12.7 % 11.8 - 14.4 % [place] Hematocrit (Bld) [Volume fraction] 41.2 % 36.3 - 47.1 % [place] Hemoglobin (Bld) [Mass/Vol] 13.9 g/dL 11.9 - 15.1 g/dL [place] Immature granulocytes (Bld) [#/Vol] 0 % 0 [place] Immature granulocytes (Bld) [#/Vol] 10*3/uL [place] Lymphocytes (Bld) [#/Vol] 2.37 10*3/uL [place] Lymphocytes/100 WBC (Bld) 29 % 24 - 43 % [place] MCH (RBC) [Entitic mass] 28.8 pg 25.2 - 33.5 pg [place] MCHC (RBC) [Mass/Vol] 33.7 g/dL 28.4 - 34.8 g/dL [place] MCV (RBC) [Entitic vol] 85.3 fL 82.6 - 102.9 fL [place] Monocytes (Bld) [#/Vol] 0.53 10*3/uL [place] Monocytes/100 WBC (Bld) 7 % 3 - 12 % M [place] Platelet mean volume (Bld) [Entitic vol] 10.8 fL 8.1 - 13.5 fL [place] Platelets (Bld) [#/Vol] 326 10*3/uL [place] Platelets (Bld) [#/Vol] NOT REPORTED [place] RBC (Bld) [#/Vol] 4.83 10*6/uL 3.95 - 5.1 1 m/uL [place] RBC morphology finding Nom (Bld) NOT REPORTED [place] Segmented neutrophils/100 WBC (Bld) 62 % 36 - 65 % [place] Segs Absolute 5.08 [place] WBC (Bld) [#/Vol] 8.2 10*3/uL [place] WBC (Bld) [#/Vol] 0.0 10*3/uL 0.0 per 10 0 WBC [place] WBC Morphology NOT REPORTED [place], [place] Comprehensive Metabolic Pane lindy 07-30-2019 Albumin [Mass/Vol] 4.7 g/dL 3.5 - 5.2 g/dL [place] Albumin/Globulin [Mass ratio] 1.4 {ratio} [place] ALP [Catalytic activity/Vol] 75 U/L 35 - 104 U/L [place] ALT [Catalytic activity/Vol] 19 U/L 5 - 33 U/L [place] Anion gap [Moles/Vol] 13 mmol/L 9 - 17 mmol/L [place] AST [Catalytic activity/Vol] 21 U/L <32 [place] Bilirubin Ql (U) 0.57 mg/dL 0.3 - 1.2 mg/dL [place] Bun/Cre Ratio 17 [place] Calcium [Mass/Vol] 9.9 mg/dL 8.6 - 10. 4 mg/dL [place] Chloride [Moles/Vol] 99 mmol/L 98 - 10 7 mmol/L [place] CO2 [Moles/Vol] 22 mmol/L 20 - 31 mmol/L [place] Creatinine [Mass/Vol] 0.75 mg/dL 0.5 - 0.9 mg/dL [place] GFR >60 >60 mL/min [place] GFR Non- >60 >60 mL/min [place] Glucose [Mass/Vol] 108 mg/dL High 70 - 99 mg/dL [place] Interpretation and review of laboratory results Abnormal [place] Potassium [Moles/Vol] 3.9 mmol/L 3.7 - 5.3 mmol/L [place] Protein [Mass/Vol] 8.1 g/dL 6.4 - 8.3 g/dL [place] Sodium [Moles/Vol] 134 mmol/L Low 135 - 144 mmol/L [place] Urea nitrogen [Mass/Vol] 13 mg/dL 6 - 20 mg/dL [place] Drug screen multi urineon Amphetamine Screen, Ur Negative NEGATIVE [place] Barbiturate Screen, Ur Negative NEGATIVE [place] Benzodiazepine Screen, Urine Negative NEGATIVE [place] Buprenorphine Urine Negative NEGATIVE [place] Cannabinoid Scrn, Ur Negative NEGATIVE [place] Cocaine Metabolite, Urine Negative NEGATIVE [place] MDMA, Urine NOT REPORTED NEGATIVE [place] Methadone Screen, Urine Negative NEGATIVE [facility] [place] [place] Methamphetamine, Urine Negative NEGATIVE [place] Opiates, Urine Negative NEGATIVE [place] Oxycodone Screen, Ur Negative NEGATIVE [place] Phencyclidine, Urine Negative NEGATIVE [place] Propoxyphene, Urine Negative NEGATIVE [place] Test Information NOT REPORTED [place] Tricyclic Antidepressants, Urine Negative NEGATIVE [facility] [place] Comment on above: Drug screen results are to be used for medical purposes only. All positive results are unconfirmed. Testing for employment or legal uses should be sent to a reference laboratory for confirmation. HCG Qualitative, Serumon hCG Qual Negative NEGATIVE [place] Comment on above: Specimens with hCG l evels near the threshold of the test (25 mIU/mL) may give a negative or indeterminate result. In such cases, another test should be performed with a new specimen in 48-72 hours. If early is suspected clinically in this setting, correlation with quantitative serum b-hCG level is suggested. [employer] has confirmed the use of plasma for this test. This has not been cleared or approved by the U.S. Food and Drug Administration. The FDA has determined that such clearance is not necessary. Magnesiumon 07-30-2019 Magnesium [Mass/Vol] 2.1 mg/dL 1.6 - 2 .6 mg/dL [place] Metabolic Panelon 07-30-2019 GFR/1.73 sq M predicted among non-blacks MDRD (S/P/Bld) [Vol rate/Area] [place] Comment on above: Average GFR for 30-3 9 years old: 107 mL/min/1.73sq m Chronic Kidney Disease: <60 mL/min/1.73sq m Kidney failure: <15 mL/min/1.73sq m eGFR calculated using average adult body mass. Additional eGFR calculator available at: http://www.Tellja/multiple_crcl_2012.htm Stage 1: Some kidney damage normal GFR Stage 2: Mild kidney damage GFR 60-89 Stage 3: Moderate kidney damage GFR 30-59 Stage 4: Severe kidney damage GFR 15-29 Stage 5: Severe kidney damage GFR <15 ESRD - chronic treatment by dialysis or transplant Microscopic Urinalysison Amorphous, UA 1+ Abnormal None [place] Bacteria, UA NOT REPORTED None [place] Casts UA NOT REPORTED /LPF [place] Crystals UA NOT REPORTED None /HPF [place] Epithelial Cells UA 5 TO 10 [place] Interpretation and review of laboratory results Abnormal [place] Mucus, UA NOT REPORTED None [place] Other Observations UA NOT REPORTED NOT REQ. M [place] RBC (U) [#/Vol] 0 TO 2 [facility] [place] Renal Epithelial, Urine NOT REPORTED 0 /HPF [place] Trichomonas, UA NOT REPORTED None [place] WBC, UA 2 TO 5 [place] Yeast, UA NOT REPORTED None [place] - [place] Otheron 07-30-[address]: No acute intracranial abnormality. Lumbar spine CT: No acute osseous abnormality. [place] EXAMINATION: CT OF THE HEAD WITHOUT CONTRAST; CT OF THE LUMBAR SPINE WITHOUT CONTRAST 07/30/2019 10:53 am TECHNIQUE: CT of the head was performed without the administration of intravenous contrast. Dose modulation, iterative reconstruction, and/or weight based adjustment of the mA/kV was utilized to reduce the radiation dose to as low as reasonably achievable.; CT of the lumbar spine was performed without the administration of intravenous contrast. Multiplanar reformatted images are provided for review. Dose modulation, iterative reconstruction, and/or weight based adjustment of the mA/kV was utilized to reduce the radiation dose to as low as reasonably achievable. COMPARISON: None. HISTORY: ORDERING SYSTEM PROVIDED HISTORY: dizziness TECHNOLOGIST PROVIDED HISTORY: Low back pain. dizziness Is the patient ?->No FINDINGS: Head CT: BRAIN/VENTRICLES: There is no acute intracranial hemorrhage, mass effect or midline shift. No abnormal extra-axial fluid collection. The bhatt-white differentiation is maintained without evidence of an acute infarct. There is no evidence of hydrocephalus. ORBITS: The visualized portion of the orbits demonstrate no acute abnormality. SINUSES: The visualized paranasal sinuses and mastoid air cells demonstrate no acute abnormality. SOFT TISSUES/SKULL: No acute abnormality of the visualized skull or soft tissues. Lumbar spine CT: Vertebral body heights are maintained at all levels. No fractures. Normal alignment. Assimilation joint between the left transverse process of L5 and superior margin of the sacrum. No perispinal soft tissue masses or abnormal fluid collections. No nephrolithiasis or hydronephrosis. [place], [place] Toño, M[employer] Incoming Radiant Results From [employer] - 07/30/2019 11:05 AM EST EXAMINATION: CT OF THE HEAD WITHOUT CONTRAST; CT OF THE LUMBAR SPINE WITHOUT CONTRAST 07/30/2019 10:53 am TECHNIQUE: CT of the head was performed without the administration of intravenous contrast. Dose modulation, iterative reconstruction, and/or weight based adjustment of the mA/kV was utilized to reduce the radiation dose to as low as reasonably achievable.; CT of the lumbar spine was performed without the administration of intravenous contrast. Multiplanar reformatted images are provided for review. Dose modulation, iterative reconstruction, and/or weight based adjustment of the mA/kV was utilized to reduce the radiation dose to as low as reasonably achievable. COMPARISON: None. HISTORY: ORDERING SYSTEM PROVIDED HISTORY: dizziness TECHNOLOGIST PROVIDED HISTORY: Low back pain. dizziness Is the patient ?->No FINDINGS: Head CT: BRAIN/VENTRICLES: There is no acute intracranial hemorrhage, mass effect or midline shift. No abnormal extra-axial fluid collection. The bhatt-white differentiation is maintained without evidence of an acute infarct. There is no evidence of hydrocephalus. ORBITS: The visualized portion of the orbits demonstrate no acute abnormality. SINUSES: The visualized paranasal sinuses and mastoid air cells demonstrate no acute abnormality. SOFT TISSUES/SKULL: No acute abnormality of the visualized skull or soft tissues. Lumbar spine CT: Vertebral body heights are maintained at all levels. No fractures. Normal alignment. Assimilation joint between the left transverse process of L5 and superior margin of the sacrum. No perispinal soft tissue masses or abnormal fluid collections. No nephrolithiasis or hydronephrosis. IMPRESSION: Head CT: No acute intracranial abnormality. Lumbar spine CT: No acute osseous abnormality. [place] TSH without Reflexon 019 TSH Qn 1.43 m[IU]/L [place] Troponinon 07-30-2019 Troponin I.cardiac [Mass/Vol] [place] Comment on above: Reference Range: <0.03 Within reference range. 0.03-0.09 Possible myocardial damage. Repeat at appropriate intervals to rule out chronic elevation. >= 0.10 Indicative of myocardial damage. Patients with high levels of Biotin oral intake (i.e >5mg/day) may have falsely decreased Troponin T levels. Samples collected within 8 hours of biotin intake may require additional information for diagnosis. Troponin T.cardiac [Mass/Vol] ug/L <0.03 ng/mL [place] Comment on above: Troponin T results c annot be compared to Troponin-I results. Troponin, High Sensitivity NOT REPORTED 0 - 14 ng/L [place] Urinalysis Reflex to Culture on 07-30-2019 Bilirubin Urine Negative NEGATIVE [place], [place] Color, UA YELLOW YELLOW [place] Glucose, Ur Negative NEGATIVE [place] Interpretation and review of laboratory results Abnormal [place] Ketones Ql (U) Negative NEGATIVE [place] Leukocyte esterase Test strip Ql (U) Negative NEGATIVE [place] Nitrite, Urine Negative NEGATIVE [place] pH, UA 7.5 [place] Protein (U) [Mass/Vol] Negative NEGATIVE [place] Specific [place], UA 1.015 [place], [place] Turbidity UA CLEAR CLEAR [place] Urinalysis Comments NOT REPORTED [place] Urine Hgb TRACE Abnormal NEGATIVE [place] Urobilinogen, Urine Normal Normal [place] Vital Signs Date Time Vital Sign Value Performing Clinician Wilneri nadiya 12-11-2023 13:03-0400 Body height 162.6 cm Jarred Whaley MD Work Phone: [facility] 12-11-2023 13:03-0400 Body mass index (BMI) [Ratio] 30 kg/m2 Jarred Whaley MD Work Phone: [facility] 12-11-2023 13:03-0400 Body temperature 98.1 [degF] Jarred Whaley MD Work Phone: [facility] 12-11-2023 13:03-0400 Body weight 79.29 kg Jarred Whaley MD Work Phone: [facility] 12-11-2023 13:03-0400 Respiratory rate 18 /min Jarred Whaley MD Work Phone: [facility] 12-11-2023 05:32-0400 Body temperature 97.3 [degF] Rishabh Nieves MD Work Phone: [facility] [employer] 12-11-2023 05:32-0400 Diastolic blood pressure 69 mm[Hg] Rishabh Nieves MD Work Phone: [facility] [employer] 12-11-2023 05:32-0400 Heart rate 92 /min Rishabh Nieves MD Work Phone: [facility] [employer] 12-11-2023 05:32-0400 Respiratory rate 17 /min [facility] 12-11-2023 05:32-0400 SaO2% (BldA) [Mass fraction] 100 % Rishabh Nieves MD [facility] 12-11-2023 05:32-0400 Systolic blood pressure 117 mm[Hg] Rishabh Nieves MD Work Phone: [facility] [employer] 09-28-2023 13:06-0500 Body temperature 100.2 [degF] Avelino Swade DO Work Phone: [facility] [employer] 09-28-2023 13:06-0500 Diastolic blood pressure 58 mm[Hg] Avelino Swade DO Work Phone: [facility] [employer] 09-28-2023 13:06-0500 Heart rate 94 /min Avelino Swade DO Work Phone: [facility] [employer] 09-28-2023 13:06-0500 Respiratory rate 20 /min Avelino Swade DO Work Phone: [facility] 09-28-2023 13:06-0500 SaO2% (BldA) [Mass fraction] 97 % Avelino Swade DO Work Phone: [facility] 09-28-2023 13:06-0500 Systolic blood pressure 111 mm[Hg] Avelino Swade DO Work Phone: [facility] 09-28-2023 10:51-0500 Body height 162.6 cm Avelino Swade DO Work Phone: [facility] 09-28-2023 10:51-0500 Body mass index (BMI) [Ratio] 33.47 kg/m2 Avelino Swade DO Work Phone: [facility] 09-28-2023 10:51-0500 Body weight 88.45 kg Avelino Swade DO Work Phone: [facility] 09-11-2023 09:16-0500 Body height 162.6 cm Vitaliy Gan Jr. , DO Work Phone: [employer] 09-11-2023 09:16-0500 Body mass index (BMI) [Ratio] 33.13 kg/m2 Vitaliy Gan Jr., DO Work Phone: [employer] 09-11-2023 09:16-0500 Body temperature 97 [degF] Vitaliy Gan Jr. , DO Work Phone: [employer] 09-11-2023 09:16-0500 Body weight 87.54 kg Vitaliy Gan Jr. , DO Work Phone: [employer] 09-11-2023 09:16-0500 Diastolic blood pressure 82 mm[Hg] Vitaliy Gan Jr., DO Work Phone: [employer] 09-11-2023 09:16-0500 Heart rate 88 /min Vitaliy Gan Jr. , DO Work Phone: [employer] 09-11-2023 09:16-0500 SaO2% (BldA) [Mass fraction] 98 % Vitaliy Gan Jr., DO Work Phone: [facility] 09-11-2023 09:16-0500 Systolic blood pressure 124 mm[Hg] Vitaliy Gan Jr., DO Work Phone: [facility] 09-01-2023 21:13-0500 Diastolic blood pressure 51 mm[Hg] Octavio Andes DO Work Phone: [facility] 09-01-2023 21:13-0500 Heart rate 71 /min Octavio Andes DO Work Phone: [facility] 09-01-2023 21:13-0500 Respiratory rate 12 /min Octavio Andes DO Work Phone: [facility] 09-01-2023 21:13-0500 SaO2% (BldA) [Mass fraction] 95 % Octavio Andes DO Work Phone: [facility] 09-01-2023 21:13-0500 Systolic blood pressure 115 mm[Hg] Octavio Andes DO Work Phone: [facility] [employer] 09-01-2023 19:40-0500 Body height 162.6 cm Octavio Andes DO Work Phone: [facility] 09-01-2023 19:40-0500 Body mass index (BMI) [Ratio] 32.61 kg/m2 Octavio Andes DO Work Phone: [facility] 09-01-2023 19:40-0500 Body temperature 99 [degF] Octavio Andes DO Work Phone: [facility] 09-01-2023 19:40-0500 Body weight 86.18 kg Octavio Andes DO Work Phone: [facility] 08-25-2023 08:45-0500 Body temperature 97.9 [degF] Patricio Aldridge MD Work Phone: [facility] 08-25-2023 08:45-0500 Diastolic blood pressure 70 mm[Hg] Patricio Aldridge MD Work Phone: [email or web address] 08-25-2023 08:45-0500 Heart rate 63 /min Patricio Aldridge MD Work Phone: [email or web address] 08-25-2023 08:45-0500 Respiratory rate 18 /min Patricio Aldridge MD Work Phone: [email or web address] 08-25-2023 08:45-0500 SaO2% (BldA) [Mass fraction] 99 % Patricio Aldridge MD Work Phone: [facility] 08-25-2023 08:45-0500 Systolic blood pressure 106 mm[Hg] Patricio Aldridge MD Work Phone: [facility] 08-24-2023 14:45-0500 Body mass index (BMI) [Ratio] 32.88 kg/m2 Patricio Aldridge MD Work Phone: [email or web address] 08-24-2023 14:45-0500 Body weight 86.9 kg Patricio Aldridge MD Work Phone: [email or web address] 08-24-2023 06:50-0500 Body height 162.6 cm Patricio Aldridge MD Work Phone: [facility] 06-04-2023 14:41-0400 Diastolic blood pressure 82 mm[Hg] Herve Lan [facility] 06-04-2023 14:41-0400 Mean blood pressure 96 mm[Hg] Herve Lan [facility] 06-04-2023 14:41-0400 Systolic blood pressure 124 mm[Hg] Herve Lan [facility] 06-04-2023 14:30-0400 Blood Pressure Location Herve Lan [facility] 06-04-2023 14:30-0400 Diastolic blood pressure 93 mm[Hg] Herve Lan [facility] 06-04-2023 14:30-0400 Heart rate 82 /min Herve Lan [facility] 06-04-2023 14:30-0400 SaO2% (BldA) [Mass fraction] 99 % Herve Lan [facility] 06-04-2023 14:30-0400 Systolic blood pressure 139 mm[Hg] Herve Lan [facility] 12-16-2022 17:22-0400 Body mass index (BMI) [Ratio] 33.47 kg/m2 Paige Fallon MD Work Phone: [facility] 12-16-2022 17:22-0400 Body temperature 97.5 [degF] Paige Fallon MD Work Phone: [facility] 12-16-2022 17:22-0400 Body weight 88.45 kg Paige Fallon MD Work Phone: [employer] 12-16-2022 17:22-0400 Diastolic blood pressure 82 mm[Hg] Paige Fallon MD Work Phone: [employer] [facility] 12-16-2022 17:22-0400 Heart rate 61 /min Paige Fallon MD Work Phone: [employer] [facility] 12-16-2022 17:22-0400 Respiratory rate 16 /min Paige Fallon MD Work Phone: [employer] [facility] 12-16-2022 17:22-0400 SaO2% (BldA) [Mass fraction] 99 % Paige Fallon MD Work Phone: [employer] [facility] 12-16-2022 17:22-0400 Systolic blood pressure 138 mm[Hg] Paige Fallon MD Work Phone: [facility] 11-06-2022 16:42-0500 Body temperature 98.8 [degF] Tiffany Might CUSTOMER SUPPORT COORDINATOR - C SPECIAL SHOPPER Work Phone: [facility] [employer] 11-06-2022 16:42-0500 Diastolic blood pressure 65 mm[Hg] Tiffany Might CUSTOMER SUPPORT COORDINATOR - HUMAN RESOURCES OPERATIONS SPECIALIST Work Phone: [facility] [employer] 11-06-2022 16:42-0500 Heart rate 88 /min Tiffany Might CUSTOMER SUPPORT COORDINATOR - C SPECIAL SHOPPER Work Phone: [facility] [employer] 11-06-2022 16:42-0500 Respiratory rate 16 /min Tiffany Might CUSTOMER SUPPORT COORDINATOR - C SPECIAL SHOPPER Work Phone: [facility] [employer] 11-06-2022 16:42-0500 SaO2% (BldA) [Mass fraction] 98 % Tiffany Might CUSTOMER SUPPORT COORDINATOR - HUMAN RESOURCES OPERATIONS SPECIALIST Work Phone: [facility] [employer] 11-06-2022 16:42-0500 Systolic blood pressure 116 mm[Hg] Tiffany Might CUSTOMER SUPPORT COORDINATOR - HUMAN RESOURCES OPERATIONS SPECIALIST Work Phone: [facility] 06-25-2022 15:33-0400 Body temperature 97.5 [degF] Tiffany Might CUSTOMER SUPPORT COORDINATOR - C SPECIAL SHOPPER Work Phone: [facility] [employer] 06-25-2022 15:33-0400 Diastolic blood pressure 86 mm[Hg] Tiffany Might CUSTOMER SUPPORT COORDINATOR - HUMAN RESOURCES OPERATIONS SPECIALIST Work Phone: [facility] [employer] 06-25-2022 15:33-0400 Heart rate 76 /min Tiffany Might CUSTOMER SUPPORT COORDINATOR - C SPECIAL SHOPPER Work Phone: [facility] 06-25-2022 15:33-0400 Respiratory rate 16 /min Tiffany Might CUSTOMER SUPPORT COORDINATOR - C SPECIAL SHOPPER Work Phone: [facility] [employer] 06-25-2022 15:33-0400 SaO2% (BldA) [Mass fraction] 98 % Tiffany Might CUSTOMER SUPPORT COORDINATOR - HUMAN RESOURCES OPERATIONS SPECIALIST Work Phone: [facility] [employer] 06-25-2022 15:33-0400 Systolic blood pressure 122 mm[Hg] Tiffany Tejeda CUSTOMER SUPPORT COORDINATOR - HERNANDEZ Work Phone: [facility] 04-11-2022 10:44-0400 Body height 162.6 cm Yas Serrano MD Work Phone: [facility] 04-11-2022 10:44-0400 Body mass index (BMI) [Ratio] 33.13 kg/m2 Yas Serrano MD Work Phone: [facility] 04-11-2022 10:44-0400 Body temperature 97.5 [degF] Yas Serrano MD Work Phone: [facility] 04-11-2022 10:44-0400 Body weight 87.54 kg Yas Serrano MD Work Phone: [facility] 04-11-2022 10:44-0400 Diastolic blood pressure 62 mm[Hg] Yas Serrano MD Work Phone: [facility] 04-11-2022 10:44-0400 Heart rate 68 /min Yas Serrano MD Work Phone: [facility] 04-11-2022 10:44-0400 Systolic blood pressure 104 mm[Hg] Yas Serrano MD Work Phone: [facility] 11-12-2021 18:36-0500 Body temperature 98.1 [degF] Delbert Nascimento MD Work Phone: [facility] 11-12-2021 18:36-0500 Diastolic blood pressure 54 mm[Hg] Delbert Nascimento MD Work Phone: [facility] 11-12-2021 18:36-0500 Heart rate 79 /min Delbert Nascimento MD Work Phone: [facility] 11-12-2021 18:36-0500 Respiratory rate 18 /min Delbert Nascimento MD Work Phone: [facility] 11-12-2021 18:36-0500 SaO2% (BldA) [Mass fraction] 98 % Delbert Nascimento MD Work Phone: [employer] 11-12-2021 18:36-0500 Systolic blood pressure 114 mm[Hg] Delbert Nascimento MD Work Phone: [employer] 02-18-2021 16:09-0400 Body height 162.6 cm Charles Pearce Jr., MD Work Phone: [employer] Work Phone: 02-18-2021 16:09-0400 Body mass index (BMI) [Ratio] 30.9 kg/m2 Charles Pearce Jr., MD Work Phone: [employer] Work Phone: 02-18-2021 16:09-0400 Body temperature 97.9 [degF] Charles Pearce Jr., MD Work Phone: [employer] Work Phone: 02-18-2021 16:09-0400 Body weight 81.65 kg Charles Pearce Jr., MD Work Phone: [employer] Work Phone: 02-18-2021 16:09-0400 Diastolic blood pressure 65 mm[Hg] Charles Pearce Jr., MD Work Phone: [employer] Work Phone: 02-18-2021 16:09-0400 Heart rate 89 /min Charles Pearce Jr., MD Work Phone: [employer] Work Phone: 02-18-2021 16:09-0400 Respiratory rate 18 /min Charles Pearce Jr., MD Work Phone: [employer] Work Phone: 02-18-2021 16:09-0400 SaO2% (BldA) [Mass fraction] 99 % Charles Pearce Jr., MD Work Phone: [employer] Phone: 02-18-2021 16:09-0400 Systolic blood pressure 111 mm[Hg] Charles Pearce Jr., MD Work Phone: [employer] Phone: 01-18-2021 07:45-0400 Body mass index (BMI) [Ratio] 30.9 kg/m2 Rosario Murguia [employer] Work Phone: [employer] Work Phone: 01-18-2021 07:45-0400 Body temperature 98.1 [degF] Rosario Lewisis Knozen Phone: [employer] Phone: 01-18-2021 07:45-0400 Body weight 81.65 kg Rosario Murguia Knozen Phone: [employer] Phone: 01-18-2021 07:40-0400 Diastolic blood pressure 77 mm[Hg] Rosario Lewisis [employer] Work Phone: [employer] Phone: 01-18-2021 07:40-0400 Heart rate 91 /min Rosario Murguia [employer] Work Phone: [employer] Work Phone: 01-18-2021 07:40-0400 Respiratory rate 16 /min Rosario Lewisis [employer] Work Phone: [employer] Work Phone: 01-18-2021 07:40-0400 SaO2% (BldA) [Mass fraction] 97 % Rosario Murguia [employer] Work Phone: [employer] Phone: 01-18-2021 07:40-0400 Systolic blood pressure 134 mm[Hg] Rosario Murguia [employer] Work Phone: [employer] Phone: 06-15-2020 16:45-0400 BP Diastolic 62 mm[Hg] [facility] [place] 06-15-2020 16:45-0400 BP Systolic 100 mm[Hg] [facility] , [place] 06-15-2020 16:45-0400 Pulse (Heart Rate) 60 /min [facility] Lydia [facility], [place] 06-15-2020 16:45-0400 Pulse Oximetry 100 % [facility] [place] 06-15-2020 16:45-0400 Respiratory Rate 16 /min [facility] [employer] [place] 06-15-2020 16:05-0400 Body Temperature 97.39 [degF] [facility] [employer] [place] [place] 06-15-2020 15:13-0400 BMI (Body Mass Index) 29.18 kg/m2 [facility] [place] 06-15-2020 15:13-0400 Body weight 77.11 kg [facility] , [place] 06-15-2020 15:13-0400 Height 162.6 cm [facility] [place] 03-03-2020 15:17-0400 Body Temperature 97.9 [degF] [facility] [place] 03-03-2020 15:17-0400 BP Diastolic 86 mm[Hg] Jonathan Millan [facility] , [place] 03-03-2020 15:17-0400 BP Systolic 121 mm[Hg] Jonathan Millan [facility] [place] , [place] 03-03-2020 15:17-0400 Pulse (Heart Rate) 89 /min Jonathan Millan [facility], [place] 03-03-2020 15:17-0400 Pulse Oximetry 98 % Jonathan Millan [facility] , [place] 03-03-2020 15:17-0400 Respiratory Rate 16 /min [facility] [place] 01-29-2020 20:48-0400 Body Temperature 98.1 [degF] Dalton [facility] [place] 01-29-2020 20:48-0400 BP Diastolic 90 mm[Hg] [facility] [place] , [place] 01-29-2020 20:48-0400 BP Systolic 148 mm[Hg] Dalton Millan [place], [place] 01-29-2020 20:48-0400 Pulse (Heart Rate) 72 /min Dalton Millan [place], [place] 01-29-2020 20:48-0400 Pulse Oximetry 99 % Dalton Millan [place], [place] 01-29-2020 20:48-0400 Respiratory Rate 18 /min Dalton Singerimedamion Millan [place], [place] 07-30-2019 12:17-0500 BP Diastolic 58 mm[Hg] [place] 07-30-2019 12:17-0500 BP Systolic 104 mm[Hg] [place] 07-30-2019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 starting 05/31/2021 until 05/31/2021 [employer] Phone: Comment on above: 1 Occurrences starting 05/31/2021 until 05/31/2021 LARISSA Screen With Reflex LARISSA Scree n With Reflex Lab Routine Chronic pain syndrome 05/31/2021 10:43 AM EDT [employer] Phone: End: 06-15-2020 Blood glucose - POCT Blood glucose - POCT Point of Care Testing Routine One Time for 1 Occurrences starting 06/15/2020 until 06/15/2020 [employer] Comment on above: One Time for 1 Occurrences starting 02/2020 until 06/15/2020 End: 02-18-2021 C.trachomatis N.gonorrhoeae DNA C.trachomatis N.gonorrhoeae DNA Microbiology STAT One Time for 1 Occurrences starting 02/18/2021 until 02/18/2021 [employer] Phone: Comment on above: One Time for 1 Occurrences starting 02/08 until 02/18/2021 C.trachomatis N.gono rrhoeae DNA C.trachomatis N.gonorrhoeae DNA Microbiology STAT 02/18/2021 7:48 PM EDT [employer] Phone: End: 05-31-2021 Cyanocobalamin vitamin b-12 Vitamin B12 Lab Routine Chronic fatigue 1 Occurrences starting 05/31/2021 until 05/31/2021 [employer] Phone: Comment on above: 1 Occurrences starting 05/31/2021 until 05/31/2021 Cyanocobalamin vitamin b-12 Karen min B12 Lab Routine Chronic fatigue 05/31/2021 10:44 AM EDT [employer] Phone: EKG 12 Lead EKG 12 Lead ECG STAT 07/30/2019 8:36 AM EST [facility] End: 07-30-2019 Free T4 [Mass/Vol] T4, Free Lab STAT One Time for 1 Occurrences starting 07/30/2019 until 07/30/2019 Fingerprint COROSIE Comment on above: One Time for 1 Occurrences starting 07/12 until 07/30/2019 Free T4 [Mass/Vol] T4, Free Lab STAT 07/30/2019 8:15 AM [facility] End: 06-21-2022 HLA-B27 Antigen [employer] Phone: Comment on above: Once for 1 Occurrences starting 06/21/20 until 06/21/2022 Lupus Anticoagulant Lupus Antico agulant Lab Routine 08/22/2019 4:31 PM [employer] Phone: End: 04-18-2021 MRSA DNA Probe, Nasal MRSA DNA Probe, Nasal Microbiology STAT Once for 1 Occurrences starting 04/18/2021 until 04/18/2021 [employer] Phone: Comment on above: Once for 1 Occurrences starting 04/18/20 21 until 04/18/2021 MRSA DNA Probe, Nasal MRSA DNA P robe, Nasal Microbiology STAT 04/18/2021 9:44 AM EDT [employer] Phone: End: 10-10-2021 MRSA DNA Probe, Nasal [employer] Phone: Comment on above: Once for 1 Occurrences starting 10/10/19 until 10/10/2021 End: 08-22-2019 Nuclear Ab [Titer] in Serum by Immunofluorescence LARISSA Lab Routine Once for 1 Occurrences starting 08/22/2019 until 08/22/2019 [employer] Phone: Comment on above: Once for 1 Occurrences starting 08/22/20 19 until 08/22/2019 Nuclear Ab [Titer] i n Serum by Immunofluorescence LARISSA Lab Routine 08/22/2019 4:31 PM [employer] Phone: End: 06-21-2022 Nuclear Ab [Titer] in Serum by Immunofluorescence [employer] Phone: Comment on above: Once for 1 Occurrences starting 06/21/20 until 06/21/2022 Oxygen therapy [Mini [facility] Data Set] Initiate Oxygen Therapy Protocol Respiratory Care Routine As Needed until discontinued starting 08/24/2023 [facility] Comment on above: As Needed until discontinued starting End: 06-15-2020 , urine , urine Lab Routine One Time for 1 Occurrences starting 06/15/2020 until 06/15/2020 [facility] [place], [place] Comment on above: One Time for 1 Occurrences starting 02/2020 until 06/15/2020 Immunizations Immunization Date Immunization Notes Care Provider Samina castellanos 07-07-2022 influenza virus vaccine, unspecified formulation Tiffany Might CUSTOMER SUPPORT COORDINATOR - HUMAN RESOURCES OPERATIONS SPECIALIST Work Phone: [facility] Work Phone: 07-07-2022 influenza, injectable, quadrivalent, preservative free Tiffany Might CUSTOMER SUPPORT COORDINATOR - HUMAN RESOURCES OPERATIONS SPECIALIST Work Phone: [facility] Work Phone: 02-25-2021 SARS-CoV-2 (COVID-19 ) mRNA BNT-162b2 [facility] Herve Lan [facility] Comment on above: Result Comment: 2022: TPVAL 02-04-2021 SARS-CoV-2 (COVID-19 ) mRNA BNT-162b2 [facility] Herve Lan [facility] Comment on above: Result Comment: 2022: TPVAL 07-02-2020 Influenza, injectable, Madin Leigha Canine Kidney, preservative free, quadrivalent Tiffany Might CUSTOMER SUPPORT COORDINATOR - HUMAN RESOURCES OPERATIONS SPECIALIST Work Phone: [facility] Work Phone: 07-02-2020 influenza virus vaccine, unspecified formulation Yas Serrano MD Work Phone: [facility] 07-14-2019 influenza virus vaccine, unspecified formulation Herve Lan [facility] 07-14-2019 influenza, injectable, quadrivalent, contains preservative Tiffany Might CUSTOMER SUPPORT COORDINATOR - HUMAN RESOURCES OPERATIONS SPECIALIST Work Phone: [facility] 07-14-2019 influenza, seasonal, injectable Tiffany Might CUSTOMER SUPPORT COORDINATOR - HUMAN RESOURCES OPERATIONS SPECIALIST Work Phone: [facility] Work Phone: Payers Date Payer Category Payer Private Health Insurance AETTIM Kruger ETTIM POS [id number] 2023-Present [phone] [address] [place] [address] [id number] 2023 Private Health Insurance [id number] .[id number] 2023 Unknown [id number] 1.2.840.581493.1.13.239.2.7 .3.021284.315 2022 Medicaid ANTHEM MEDICAID AN[place] MED[place] [id number] 2022-Present [address] [place] [address] [id number] .[id number] 2022 Medicaid [id number] 1.2.840.018841.1.13.239.2.7 .3.133788.315 2021 Unknown 2018 Private Health Insurance [id number] 2018 Medicaid [id number] [id number] .[id number] 2018 Unknown [id number] 2017 Medicaid [id number] 1985 Unknown [id number] 2.16.840.1.828532.3.579.2.7 54 1985 Unknown [id number] 2.16.840.1.393562.3.579.2.7 54 1985 Unknown [id number] 2.16.840.1.216084.3.579.2.7 54 1985 Unknown [id number] 2.16.840.1.641860.3.579.2.9 1985 Unknown [id number] 2.16.840.1.055002.3.579.2.9 1985 Unknown [id number] 2.16.840.1.029014.3.579.2.5 1985 Unknown [id number] 2.16.840.1.392633.3.579.2.5 1985 Unknown [id number] 2.16.840.1.707526.3.579.2.5 1985 Unknown [id number] 2.16.840.1.030247.3.579.2.5 1985 Unknown [id number] 2.16.840.1.088801.3.579.2.5 1985 Unknown [id number] 2.16.840.1.473715.3.579.2.5 1985 Unknown [id number] 2.16.840.1.699373.3.579.2.5 1985 Unknown [id number] 2.16.840.1.636419.3.579.2.5 1985 Unknown [id number] 2.16.840.1.658317.3.579.2.1 1985 Unknown [id number] 2.16.840.1.530917.3.579.2.1 1985 Unknown [id number] 2.16.840.1.914372.3.579.2.1 1985 Unknown [id number] 2.16.840.1.086849.3.579.2.1 1985 Unknown [id number] 2.16.840.1.735289.3.579.2.1 1985 Unknown [id number] 2.16.840.1.614158.3.579.2.1 1985 Unknown [id number] 2.16.840.1.634278.3.579.2.1 1985 Unknown [id number] 2.16.840.1.806517.3.579.2.1 1985 Unknown [id number] 2.16.840.1.981880.3.579.2.1 1985 Unknown [id number] 2.16.840.1.815291.3.579.2.1 1985 Unknown [id number] 2.16.840.1.990740.3.579.2.1 1985 Unknown [id number] 2.16.840.1.286982.3.579.2.1 1985 Unknown [id number] 2.16.840.1.493597.3.579.2.9 1985 Unknown [id number] 2.16.840.1.208115.3.579.2.1 1985 Unknown [id number] 2.16.840.1.609352.3.579.2.1 1985 Unknown [id number] 2.16.840.1.587295.3.579.2.1 1985 Unknown [id number] 2.16.840.1.477126.3.579.2.1 1985 Unknown [id number] 2.16.840.1.324223.3.579.2.1 1985 Unknown [id number] 2.16.840.1.795393.3.579.2.1 1985 Unknown [id number] 2.16.840.1.405826.3.579.2.1 1985 Unknown [id number] 2.16.840.1.077466.3.579.2.1 1985 Unknown [id number] 2.16.840.1.995030.3.579.2.1 73 1985 Unknown [id number] 2.16.840.1.963451.3.579.2.1 73 1985 Unknown [id number] 2.16.840.1.831935.3.579.2.1 286 1985 Unknown [id number] 2.16.840.1.176373.3.579.2.1 286 1985 Unknown [id number] 2.16.840.1.730219.3.579.2.1 286 1985 Unknown [id number] 2.16.840.1.323901.3.579.2.7 27 1985 Unknown [id number] 2.16.840.1.241949.3.579.2.7 27 1985 Unknown [id number] 2.16.840.1.745501.3.579.2.7 27 1985 Unknown [id number] 2.16.840.1.310378.3.579.2.7 27 1985 Unknown [id number] 2.16.840.1.256961.3.579.2.7 27 1985 Unknown [id number] 2.16.840.1.282393.3.579.2.7 27 1985 Unknown [id number] 2.16.840.1.253747.3.579.2.7 27 1985 Unknown [id number] 2.16.840.1.091327.3.579.2.7 27 1985 Unknown [id number] 2.16.840.1.310896.3.579.2.7 27 1985 Unknown [id number] 2.16.840.1.847108.3.579.2.7 27 1985 Unknown [id number] 2.16.840.1.838187.3.579.2.7 27 1985 Unknown [id number] 2.16.840.1.466306.3.579.2.7 27 1985 Unknown [id number] 2.16.840.1.866625.3.579.2.7 27 1985 Unknown [id number] 2.16.840.1.671097.3.579.2.7 27 1985 Unknown [id number] 2.16.840.1.553080.3.579.2.7 27 1985 Unknown [id number] 2.16.840.1.709438.3.579.2.1 259 1985 Unknown [id number] 2.16.840.1.846827.3.579.2.1 259 1985 Unknown [id number] 2.16.840.1.459854.3.579.2.1 259 1985 Unknown [id number] 2.16.840.1.057100.3.579.2.1 259 1959 Unknown [id number] 1.2.840.467940.1.13.239.2.7 .3.130588.315 Self-pay Social History Date Type Detail Facility Start: 08-31-2019 End: 01-22-2024 Tobacco smoking status TNIS Never smoker [facility] Start: 08-31-2019 Alcohol intake Lifetime non-drinker (finding) [facility] Start: 08-29-2019 End: 06-13-2022 History SDOH Alcohol Frequency 1 [facility] Start: 1985 Sex Assigned At Not on file [place] Start: 01-29-2020 End: 12-11-2023 Alcohol intake Current non-drinker of alcohol (finding) [place] Exposure to SARS-CoV -2 (event) Unable to assess [place] Start: 01-29-2020 End: 01-12-2022 Tobacco use and exposure Never used [place] Start: 06-15-2022 End: 12-16-2022 Exposure to SARS-CoV-2 (event) Not sure [place] Start: 04-11-2022 End: 09-11-2023 Alcohol intake Ex-drinker (finding) [facility] Start: 06-13-2022 History SDOH Financial 5 [facility] Work Phone: Start: 1985 [facility] Tobacco smoking status Never [facility] Start: 02-19-2019 End: 08-24-2023 Sex Assigned At Female [facility] Start: 02-19-2019 End: 08-24-2023 History of Social function [facility] Latam Has the electric, [employer] s, oil, or water company threatened to shut off services in your home in past 12Mo No [employer] [facility] How often to you hav e a drink containing alcohol? Never [employer] [facility] (I/We) worried wheadam er (my/our) food would run out before (I/we) got money to buy more. Never true [facility] Start: 01-25-2022 Gender identity Identifies as female gender (finding) [facility] Start: 01-25-2022 Sexual orientation Heterosexual (finding) [facility] Medical Equipment Procedure Code Equipment Code Equipment Origin al Text Equipment Identifier Dates Allograft Si Int ra Art Fus 11mm - [id number] Start: 08-24-2023 Allograft Si Int ra Art Fus 11mm - [id number] Start: 08-24-2023 Functional Status Date Assessment Result Facility 06-04-2023 Functional Status No [facility] Clinical Notes 02-18-2021 to 12-12-2023 Telephone Encounter - Lynnette Nunes - 12/12/2023 11:55 AM EDTTelephone Encounter - Jarred Whaley MD - 12/12/2023 11:55 AM EDTTelephone Encounter - Rohan Millard CNA - 12/12/2023 11:55 AM EDT Note Date & Type Note Facility 12-12-2023 Miscellaneous Notes Pt calling because the ear drops prescribed are way too expensive through insurance and [facility]. Can you call something in that is cheaper? Traci Guevara. Please advise. Dr Whaley patient I redid the order. I sent the prescription in to the pharmacy for 2 different drops. They will be 2 drops to left ear twice a day for 4 days. This will be used instead of the Ciprodex. Spoke with patient and let her know that a new script was sent to the pharmacy. documented in this encounter [facility] 12-12-2023 Telephone encounter Note Pt calling because the ear drops prescribed are way too expensive through insurance and [facility]. Can you call something in that is cheaper? Traci Guevara. Please advise. Dr Whaley patient [facility] 12-12-2023 Telephone encounter Note I redid the order. I sent the prescription in to the pharmacy for 2 different drops. They will be 2 drops to left ear twice a day for 4 days. This will be used instead of the Ciprodex. [facility] 12-12-2023 Telephone encounter Note Spoke with patient and let her know that a new script was sent to the pharmacy. [facility] 12-11-2023 Note [id number] [facility] 12-11-2023 History of Presen t illness Narrative [facility] [address] [facility] [id number] SUBJECTIVE: Patient ID: Kizzy Jalloh is a 38 y.o. female presents today for left ear pain. HPI: The patient is a 38-year-old female seen today with a 1 day history of left ear pain. She woke up at 4:00 a.m. with sharp pain in her left ear. She had some otorrhea. She has a known history of multiple sets of ear tubes as a child. She was seen by an ENT physician in [facility]. She has a known history of retracted tympanic membranes. She states she gets ear infections 2 to 3 times a year. She does not wear hearing aids. She is here for evaluation. HISTORY: Past Medical History: Diagnosis Date Depression Gestational diabetes History of back surgery History of hysterectomy Kidney stone Migraine Ulcer Urinary tract infection Past Surgical History: Procedure Laterality Date SECTION SECTION 2016 LAPAROSCOPY 05/2023 LUMBAR DISCECTOMY 2020 LUMBAR FUSION 2021 PARTIAL HYSTERECTOMY 11/2020 Family History Problem Relation Age of Onset Breast cancer Mother Social History Socioeconomic History Marital status: Single Spouse name: Not on file Number of children: Not on file Years of education: Not on file Highest education level: Not on file Occupational History Not on file Tobacco Use Smoking status: Never Smokeless tobacco: Never Substance and Sexual Activity Alcohol use: No Drug use: No Sexual activity: Yes Partners: Male Other Topics Concern Not on file Social History Narrative Merged History Encounter Social Determinants of Health Financial Resource Strain: Not on file Food Insecurity: Not on file Transportation Needs: Not on file Physical Activity: Not on file Stress: Not on file Social Connections: Not on file Interpersonal Safety: Not on file Housing Instability: Not on file Allergies Allergen Reactions Nubain [Nalbuphine] Dizziness and Vomiting Nubain [Nalbuphine] Nausea and Tachycardia Current Outpatient Medications Medication Sig Dispense Refill esomeprazole (NexIUM) 20 mg capsule Take 1 capsule (20 mg total) by mouth every morning before breakfast. esomeprazole (NexIUM) 20 mg capsule Take 1 capsule (20 mg total) by mouth every morning before breakfast. estradioL (ESTRACE) 1 mg tablet Take 1 tablet (1 mg total) by mouth in the morning. methylPREDNISolone (MEDROL, DIOGENES,) 4 mg tablet follow package directions 21 tablet 0 naproxen (NAPROSYN) 250 mg tablet Take 1 tablet (250 mg total) by mouth 2 (two) times a day as needed for pain. phentermine 37.5 MG capsule Take 1 capsule (37.5 mg total) by mouth once daily. VIT 91/IRON/FOLIC/DHA ( + DHA ORAL) Take 1 tablet by mouth daily. diazePAM (VALIUM) 5 mg tablet Take 1 tablet (5 mg total) by mouth every 12 (twelve) hours as needed for anxiety for up to 5 doses. (Patient not taking: Reported on 12/11/2023) 5 tablet 0 insulin NPH (HumuLIN N,NovoLIN N) 100 unit/mL injection Inject 5 Units under the skin 2 (two) times a day before meals. (Patient not taking: Reported on 12/11/2023) insulin regular (HumuLIN R,NovoLIN R) 100 unit/mL injection Inject 5 Units under the skin 2 (two) times a day before meals. (Patient not taking: Reported on 12/11/2023) No current facility-administered medications for this visit. REVIEW OF SYSTEMS: Review of Systems Constitutional: Negative for chills and fever. HENT: Positive for sinus pressure, sinus pain and sore throat. Negative for mouth sores and tinnitus. Eyes: Negative for discharge and itching. Respiratory: Positive for cough and shortness of breath. Negative for wheezing and stridor. Cardiovascular: Negative for chest pain. Gastrointestinal: Negative for nausea and vomiting. Endocrine: Negative for cold intolerance and heat intolerance. Genitourinary: Negative for flank pain. Musculoskeletal: Negative for gait problem. Skin: Negative for rash. Allergic/Immunologic: Negative for environmental allergies and food allergies. Neurological: Positive for dizziness and headaches. Negative for seizures and speech difficulty. Hematological: Bruises/bleeds easily. Psychiatric/Behavioral: Negative for sleep disturbance. Data Reviewed: PHYSICAL EXAMINATION: Temp 36.7 C (98.1 F) Resp 18 Ht 162.6 cm (5' 4 ) Wt 79.3 kg (174 lb 12.8 oz) BMI 30.00 kg/m Constitutional: General Appearance: Healthy, alert, cooperative, and in no distress Ability to Communicate: Normal ability to communicate and Voice normal Head/Face: Inspection of Head/Face: Normocephalic without obvious abnormality, Atraumatic appearance, and Sinuses non-tender Facial Nerve: Facial nerve symmetrical and intact Salivary Glands: Parotid Gland: Normal, Submandibular Gland: Normal, and Sublingual Gland: Normal Eyes: No gross abnormalities, EOMI, and No Nystagmus Ears: External Ear: Normal bilateral External Auditory Canal: Normal bilateral Tympanic Membranes: Abnormal right Retraction and Abnormal left Tympanosclerosis, Drainage present in left ear Middle Ear: Abnormal right Retraction pocket posterior Hearing: Normal bilateral Neck: Neck supple, No adenopathy, Thyroid normal in size without nodules or tenderness, No palpable neck masses, and Carotids normal Respiratory: No stridor, Normal respiratory effort and No use of accessory muscles Cardiovascular: Regular rate and Regular rhythm Neurologic: Patient is alert and oriented x3 with normal affect and grossly normal cranial nerves MUCUS REMOVAL PROCEDURE NOTE Kizzy Jalloh was taken to the procedure room and placed in the supine position. Using binocular microscopy, visualization of the left external canal showed drainage. The cerumen was removed with suction. Once the ear canal was cleaned, the tympanic membrane was visualized. The tympanic membrane is thickened. Findings: Procedure was successful and and tolerated well. 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 Diagnoses and all orders for this visit: Otorrhea, left Recurrent acute otitis media with spontaneous rupture of both tympanic membranes Retraction pocket of tympanic membrane of right ear Retraction of tympanic membrane of right ear Tympanosclerosis of left ear Plan: Patient reports that this morning, she began to experience otalgia in the left ear. She has a past history of recurrent episodes of otitis media with spontaneous rupture of the tympanic membrane. She also notes some nasal congestion. Upon physical examination, she has a posterior retraction pocket in the right ear and drainage in the left ear. She was also noted to have a thickened left tympanic membrane. The mucus present in the left ear was suctioned and Ciprodex drops were placed. Due to the otorrhea present in the left ear, the patient was advised to use Ciprodex (4 drops, BID, left ear, 4 days) and was shown how to properly administer this medication. She agrees. Questions and concerns addressed. I will see her back in 3 weeks with an audiogram. She will also have her prior ENT records sent to us from [facility]. Scribe Statement: Scribed for and in the presence of JARRED WHALEY MD by rudolph Zambrano. Alexa López 12/11/2023 1:15 PM Provider Statement: I JARRED WHALEY MD personally performed the services described in the documentation as described by the above named scribe in my presence. It is both accurate and complete at the time of final signature. Dr. Jarred Whaley 12/11/2023 1:25 PM Counseling: The following elements of medical decision making were considered during this visit: Reviewed and summarized previous records. The patient was counseled regarding prognosis, risks and benefits of treatment options, impressions, importance of compliance with treatment and risk factor reductions. The patient verbalized understanding and agreement to the plan. Electronically signed by JARRED WHALEY MD Please note that parts of this chart were generated using voice recognition [employer] dictation software. Although every effort was made to ensure the accuracy of this automated deli slicer, some errors in deli slicer may have occurred. Alexa López 12/11/23 1323 documented in this encounter [facility] 12-11-2023 Hospital Discharg Rishabh Kwok MD - 12/11/2023 5:56 AM EDT Take your medication as indicated and prescribed. If you are given an antibiotic, then make sure you get the prescription filled and take the antibiotics until finished. Drink plenty of water while taking the antibiotics. Avoid drinking alcohol or drinks that have caffeine in it while taking antibiotics. For pain use acetaminophen (Tylenol) or ibuprofen (Motrin / Advil), unless prescribed medications that have acetaminophen or ibuprofen (or similar medications) in it. You can take over the counter acetaminophen tablets (1 - 2 tablets of the 500-mg strength every 6 hours) or ibuprofen tablets (2 tablets every 4 hours). PLEASE RETURN TO THE EMERGENCY DEPARTMENT IMMEDIATELY for worsening symptoms, feeling of the room spinning, repeated bouts of dizziness, inability to hear, white discharge coming from your ear, or if you develop any concerning symptoms such as: high fever not relieved by acetaminophen (Tylenol) and/or ibuprofen (Motrin / Advil), chills, shortness of breath, chest pain, feeling of your heart fluttering or racing, persistent nausea and/or vomiting, vomiting up blood, blood in your stool, loss of consciousness, numbness, weakness or tingling in the arms or legs or change in color of the extremities, changes in mental status, persistent headache, blurry vision, loss of bladder / bowel control, unable to follow up with your physician, or other any other care or concern. documented in this encounter [facility] 09-28-2023 Hospital Discharg e instructions Avelino Muse DO - 09/28/2023 11:34 AM EST Contains abnormal data COVID-19, Rapid Order: [id number] Status: Final result Visible to patient: Yes (seen) Next appt: None Specimen Information: Nasopharyngeal Swab 0 Result Notes Component Ref Range & Units Specimen Description .NASOPHARYNGEAL SWAB SARS-CoV-2, Rapid Not Detected DETECTED Abnormal Comment: Rapid NAAT: The specimen is POSITIVE for SARS-Cov-2, the novel coronavirus associated with COVID-19. This test has been authorized by the FDA under an Emergency Use Authorization (EUA) for use by authorized laboratories. The ID NOW COVID-19 assay is designed to detect the virus that causes COVID-19 in patients with signs and symptoms of infection who are suspected of COVID-19. An individual without symptoms of COVID-19 and who is not shedding SARS-CoV-2 virus would expect to have a negative (not detected) result in this assay. Fact sheet for Healthcare Providers: https://www.fda.gov/media/43584 0/download Fact sheet for Patients: https://www.fda.gov/media/54849 1/download Methodology: Isothermal Nucleic Acid Amplification Results reported to the appropriate Health Department Resulting Agency [facility] Lab Specimen Collected: 09/28/23 11:05 EST Last Resulted: 09/28/23 11:26 EST The following attachments cannot be sent through Care Everywhere.Cough (Libyan)Coronavirus Disease (COVID-19): General Info (Libyan)Coronavirus Disease (COVID-19): Caring for Yourself: Quick List (Libyan)Fever (Libyan)documented in this encounter [facility] 09-11-2023 History of Presen t illness Narrative Subjective History of Present Illness Presence of Pain: complains of pain/discomfort Select Pain Scale: DVPRS (Defense and Veterans Pain Rating Scale) (Adult-Cognitively Intact) DVPRS: Rest: 4- mild pain DVPRS: Activity: 4- mild pain Select Pain Scale: DVPRS (Defense and Veterans Pain Rating Scale) (Adult-Cognitively Intact) Pain Frequency: constant Pain Quality: aching. Total time spent in this encounter was 47 minutes. Patient is being evaluated for an unstable chronic illness that increase morbidity and mortality. Due to patient's coexisting health problems and co-morbidities treatment is and will be very difficult. Patient was referred by Eliz ROMAN for Ankylosing Spondylitis. Patient states she was diagnosed with Ankylosing Spondylitis from a previously Neurologist. Patient states she has neck, back and OMID hip pain and stiffness. Patient states she will have intermittent OMID hand and knee swelling. 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 Patient is here to be checked of and other autoimmune disease. Objective Review of Systems Constitutional: Positive for fatigue. HENT: Negative. Eyes: Negative. Respiratory: Negative. Cardiovascular: Negative. Gastrointestinal: GERD/PUR History of stomach ulcers. Endocrine: Negative. Musculoskeletal: Positive for arthralgias, back pain, neck pain and neck stiffness. RLS Skin: Negative. Allergic/Immunologic: Negative. Neurological: Positive for weakness, numbness and headaches. Mirgraines Hematological: Negative. Psychiatric/Behavioral: Negative. Vitals: Blood pressure 124/82, pulse 88, temperature 97 F (36.1 C), temperature source Temporal, height 1.626 m (5' 4 ), weight 87.5 kg (193 lb), SpO2 98 %. Physical Exam Vitals and nursing note reviewed. Constitutional: Appearance: Normal appearance. HENT: Head: Normocephalic and atraumatic. Comments: TMJ crep B/L Right Ear: External ear normal. Left Ear: External ear normal. Nose: Nose normal. Mouth/Throat: Mouth: Mucous membranes are moist. Pharynx: Oropharynx is clear. Eyes: Extraocular Movements: Extraocular movements intact. Conjunctiva/sclera: Conjunctivae normal. Pupils: Pupils are equal, round, and reactive to light. Comments: glasses Cardiovascular: Rate and Rhythm: Normal rate and regular rhythm. Pulses: Carotid pulses are 2+ on the right side and 2+ on the left side. Radial pulses are 2+ on the right side and 2+ on the left side. Heart sounds: Normal heart sounds. Comments: Did not take of shoes for exam. No subclavian or carotid bruits Pulmonary: Effort: Pulmonary effort is normal. Breath sounds: Normal breath sounds. Abdominal: General: Bowel sounds are normal. Palpations: Abdomen is soft. Musculoskeletal: Right shoulder: Crepitus present. Left shoulder: Crepitus present. Right upper arm: Normal. Left upper arm: Normal. Right elbow: Normal. Left elbow: Normal. Right forearm: Normal. Left forearm: Normal. Right wrist: Decreased range of motion. Left wrist: Decreased range of motion. Right hand: Decreased range of motion. Decreased strength. Decreased sensation. Left hand: Decreased range of motion. Decreased strength. Decreased sensation. Cervical back: Neck supple. Crepitus present. Decreased range of motion. Thoracic back: Tenderness present. Decreased range of motion. Lumbar back: Tenderness present. Decreased range of motion. Right hip: Decreased range of motion. Left hip: Decreased range of motion. Right upper leg: Normal. Left upper leg: Normal. Right knee: Normal. Left knee: Normal. Right lower leg: Normal. Left lower leg: Normal. Right ankle: Normal. Left ankle: Normal. Comments: Tragus to wall distance if 11 cm. Chest expansion is 4.5 CM. Rosa's is 13/10 cm Skin: General: Skin is warm and dry. Neurological: Mental Status: She is alert and oriented to person, place, and time. Cranial Nerves: Cranial nerves 2-12 are intact. Sensory: Sensory deficit present. Motor: Weakness present. Gait: Gait is intact. Deep Tendon Reflexes: Reflex Scores: Tricep reflexes are 0 on the right side and 0 on the left side. Bicep reflexes are 0 on the right side and 0 on the left side. Brachioradialis reflexes are 0 on the right side and 0 on the left side. Patellar reflexes are 0 on the right side and 2+ on the left side. Comments: B/L CTS Psychiatric: Mood and Affect: Mood normal. Behavior: Behavior normal. Thought Content: Thought content normal. Judgment: Judgment normal. Neurological Exam Mental Status Alert. Oriented to person, place, and time. Cranial Nerves CN II: Vision test: glasses. CN III, IV, : Extraocular movements intact bilaterally. Pupils equal round and reactive to light bilaterally. Reflexes Right Left Brachioradialis 0 0 Biceps 0 0 Triceps 0 0 Patellar 0 2+ Gait Normal gait. B/L CTS. Assessment and Plan HLA-B27 is negative Imaging does not show evidence of Ankylosing Spondylitis No evidence of active CTD/CVD/Inflammatory arthritis/Ankylosing spondylitis Patient seen in consultation today. I return patient to your care. Encounter Diagnoses Name Primary? Dorsalgia Yes Thoracic degenerative disc disease Lumbosacral stenosis Lumbar degenerative disc disease Degeneration of lumbosacral intervertebral disc Chondromalacia of left knee Neutrophilia Leukocytosis, unspecified type Angiomyolipoma of left kidney Adnexal cyst assisted current use of non-steroidal anti-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 (NSAID) Hyponatremia Hyperglycemia Time was spent with the patient today in education in re: to all their medical conditions. A complete H&P&ROS was obtained and is either in this note or in the EHR. Please do not hesitate to contact me with any questions or concerns re: this patient. Past History: Past medical, surgical, family, and social histories have been reviewed and updated with the patient today and are located elsewhere in the medical record. Patient seen in consultation today Rec: Neuro eval and F/U I return patient to your care Patient given educational material on Ankylosing Spondylitis in the form of a pamphlet from the arthritis foundation Negative HLA-B27, LARISSA (times 2), MICK screen, dsDNA, RF (times 2), JACOBY. LAC, CRP is negative at 3.1 Glucose is elevated at 122 and patient is going to Follow-up with PCP Sodium is low at 134 WBC is elevated at 11.9 If Leukocytosis continues rec: Hem/Onc eval Normal PT/INR, TSH, S/P L-spine surgery and SI joint fusion If patient continues to have trouble with back pain would rec: eval by spinal surgery and/or chronic pain management Rx given for PT: Patient has been and is has made it worse. At patient's request will set up with Dr. Lenz: patient has been to Pain management and the shots did not help so declines referral Patient given educational material on OA in the from of a pamphlet from the arthritis foundation. Patient told that PT and keeping ideal body wt would be the cornerstone of treatment Monitor CBC/LFT/Renal func every 6-12 months as long as patient is on daily NSAID Ortho Follow-up per Dr. Sanz and Dr. Bermudez. No evidence of active CTD/CVD/Inflammatory arthritis/Ankylosing spondylitis documented in this encounter [facility] 08-25-2023 History of Presen t illness Narrative Discharge teaching given, pt discharged CHG soap given to patient at discharge. Instructions given on daily use of CHG to prevent infection. Patient voiced understanding. Patient arrived to [facility], used eliz [employer] to assist to bathroom and then bed. Right leg is numb from mid thigh down. C/o back pain 10/20. IV infusing into RH. at bedside. Oriented to room. Call light within reach. Bed alarm turned on. 0858: patient arrived to room via bed, attached to monitor, vital signs stable, report received from OR staff and [employer]. IV infusing via gravity. Spontaneous respirations. at bedside. Dressing remains clean and dry. Rn remains at bedside,continue to monitor. 0910: patient continues to rest in bed. 0925: patient resting in bed, no changes noted. 0930: patient continues to rest in bed, at bedside. No changes noted. 0940: Patient awake, snack and drink provided. Patient states she cannot feel right leg. Dr. Aldridge made aware. Patient vital signs 0950:Dr. Aldridge at bedside talking to patient and . Patient going to be admitted 0955: patient at bedpan at this time. Patient voided without difficulty. 1000: Dr. Aldridge at bedside updating family and patient. Patient states that she cannot feel right leg, left leg is fine. Patient continues to eat snack and drink and denies other needs. Dr. Aldridge spoke to Dr. Young regarding patient admission. 1030:patient denies needs, resting in bed, patient appears comfortable. Call light within reach. 1100: patient continues to rest in bed, denies needs, resting with eyes closed. at bedside. 1130:NO changes noted, continue to wait on bed. 1200: continue to wait on bed, patient denies needs. 1355: report called to JOHN Brito. All questions addressed and answered. Family updated. 1420: patient transported to [facility] via cart. going with patient. All belongings sent with patient. NPO after midnight Bring insurance info and drivers license Wear comfortable clean clothing Do not bring jewelry Shower night before and morning of surgery with a liquid antibacterial soap Bring list of medications with dosage and how often taken Follow all instructions given by your physician Supply Cataloguer needed at discharge Please limit to 2 visitors for surgery You must have a responsible adult with you day of surgery and for 24 hours after surgery Call [facility] [phone] for any questions In preparation for their surgical procedure above patient was screened for Obstructive Sleep Apnea (DOLLY) using the STOP-Bang Questionnaire by the Pre-Admission Testing department. This is a pre-surgical screening tool for patient safety and serves as a recommendation, this WILL NOT cause cancellation of surgery. STOP-Bang Questionnaire * Do you currently see a artillery or naval gunfire observer? No If yes STOP, do not complete. Patient follows with 1. Do you snore loudly (able to be heard in the next room)? Yes 2. Do you often feel tired or sleepy during the daytime? No 3. Has anyone ever told you that you stop breathing during your sleep? No 4. Do you have or are you being treated for high blood pressure? No 5. BMI more than 35? BMI (Calculated): 32.7 No 6. Age over 50 years? 38 y.o. No 7. Neck Circumference greater than 17 inches for male or 16 inches for female? Measured (visits only) Not Applicable 8. Gender Male? No TOTAL SCORE: 1 DOLLY - Low Risk : Yes to 0 - 2 questions DOLLY - Intermediate Risk : Yes to 3 - 4 questions DOLLY - High Risk : Yes to 5 - 8 questions Adapted from: STOP Questionnaire: A Tool to Screen Patients for Obstructive Sleep Apnea Caty La[facility]C., Jamie Sommers M.B.B.S., Loren Hamm M.D., Samantha Stewart, Ph.D., Gregory George.B.B.S., Nathan Shahid M.Kostas., Lisa Barkley M.D., Kory Andino F.R.C.P.C. Anesthesiology 2008; 108:812-21 Copyright 2008, the [place] [employer], Inc. [employer] documented in this encounter [facility] 08-25-2023 Hospital course Narrative Images from the original note were not included. Hospital Medicine Discharge Summary Patient Identification: Kizzy Jalloh : 1985 Account: [id number] Patient's PCP: Lidia Lopez APRN - NP Admit Date: 08/24/2023 Discharge Date: 08/25/2023 Admitting Physician: Nichole Marin MD Discharge Physician: Nichole Marin MD Discharge Diagnoses: Post op complication from local anesthesia, Numbness and paresthesias in lower extremities s/p bilat sacroiliac joint fusion with sacroiliac fix on 08/24/[address] Patricio Aldridge MD with anesthesiology by Dr. Carlos Flood DO Pt received spinal block. Concern for spinal epidural hematoma vs anesthetic toxicity- pt gradually gaining sensation and strength. 08/25 patient is back to baseline, able to walk and move. Pt denies headaches, nausea/vomiting and has been sitting up at an angle for hours post procedure, making epidural abscess less likely. Outpatient follow up with Dr. Aldridge Unable to reach out to office given weekend, unable to reach out to Dr. Aldridge on perfect serve. Patient is back to baseline. Will dc on omnicef for 5 days and percocet Hospital Course: Kizzy Jalloh is a 38 y.o. female with extensive spinal medical history including chronic lower back pain and ankylosing spondylitis s/p bilat sacroiliac joint fusion with sacroiliac fix on 08/24/[address] Patricio Aldridge MD with anesthesiology by Dr. Carlos Flood DO who was sent for observation post surgery today due to numbness in the right lower extremity. According to documentation, pt received MAC with spinal block prior to procedure. Post procedure, she felt numb in both lower extremities with gradual regain of sensation more in the LLE. She was subsequently sent to the hospital for observation with the direct contact of the surgeon given to patient. As I arrived the pt's room, she was sitting in bed and having a meal with her partner. During the encounter, pt explained that gain of sensation and strength in the RLE has been slow, with numbness starting in the mid thigh distally alongside paresthesias in the LLE. The pt was barely sensitive to light touch in this extremity. She was able to wiggle her toes and had full sensation to pain, vibration, and proprioception. She had decreased strength and range of motion in both lower extremities, worse in the right. She noticed an erythematous, pruritic rash around her neck post procedure and was unsure of inciting factor(s). She denied new onset nausea/vomiting, fever, headache, changes in vision, chest pain, SOB, palpitations, changes in bowel movement. Of note, she has had an extensive surgical history with complications including abdominal adhesions. She denied starting any new medications recently but stated prescribed an estrogen pill which she has not started yet. Pt educated to hold unto that medication with risk of hypercoagulable state. Patient remained hemodynamically stable without any new symptoms or complaints, patient was able to walk, numbness and weakness resolved, did not have fever or back pain. Leucocytosis from procedure. Will be discharged with close follow up with Dr. Aldridge. I tried calling office and tried to reach out neville Allison over perfect serve, was unable to. Patient will be discharged. Informed patient if any new symptoms or any new weakness where she is not able to control bowel and bladder or significant back pain, she should come back to hospital. Exam: Vitals: Vitals: 08/25/23 0435 08/25/23 0440 08/25/23 0510 08/25/23 0845 BP: 102/71 106/70 Pulse: 78 63 Resp: 16 18 18 18 Temp: 98.1 F (36.7 C) 97.9 F (36.6 C) TempSrc: Oral Oral SpO2: 98% 99% Weight: Height: Weight: Weight - Scale: 86.9 kg (191 lb 9.3 oz) General: Sitting in bed and appears to be in pain, but in not ill-appearing Eyes: PERRLA. Nonicteric, no conjunctivitis, EOMs intact. HENT: Normocephalic, atraumatic. Nares normal. Oral mucosa moist. Hearing grossly intact. Neck: Supple, with full range of motion. No gross JVD appreciated. Respiratory: Normal effort. Clear to auscultation, without rales or wheezes or rhonchi. Cardiovascular: RRR, good S1/S2. No rubs, gallops, or murmurs. No lower extremity edema. No hepatojugular reflex. Abdomen: Well-healed surgical scars. Soft, non-tender, non-distended. Bowel sounds present. Musculoskeletal: No joint swelling. Normal tone. Limited range of motion lower extremities. Lumbosacral spinous and paraspinous tenderness. Positive straight leg test bilaterally Skin: Warm and dry. No rashes or lesions. Neurologic: Sensory deficit to superficial touch on RLE. Vibration, proprioception, and pain sensation in tact bilaterally- Improved. Cranial nerves II-XII grossly intact. Psychiatric: Alert and oriented, normal insight and thought content. Capillary Refill: Brisk,< 3 seconds. Peripheral Pulses: +2 palpable, equal bilaterally. Significant Diagnostic Studies Labs: For convenience and continuity at follow-up the following most recent labs are provided: CBC: Lab Results Component Value Date/Time WBC 17.1 08/25/2023 07:15 AM HGB 12.4 08/25/2023 07:15 AM HCT 36.9 08/25/2023 07:15 AM PLT 278 08/25/2023 07:15 AM Renal: Lab Results Component Value Date/Time NA 140 08/25/2023 07:15 AM K 3.9 08/25/2023 07:15 AM CL 106 08/25/2023 07:15 AM CO2 23 08/25/2023 07:15 AM BUN 9 08/25/2023 07:15 AM CREATININE 0.7 08/25/2023 07:15 AM CALCIUM 8.9 08/25/2023 07:15 AM Radiology: FLUORO FOR SURGICAL PROCEDURES Final Result Consults: None Disposition: Home Condition at Discharge: Stable Code Status: Full Code Patient Instructions: Discharge lab work: none Activity: activity as tolerated Diet: ADULT DIET; Regular Follow-up visits: Patricio Aldridge MD [address] [place] [address] [place] [address] Follow up please call for follow up appt Discharge Medications: Medication List CONTINUE taking these medications esomeprazole Magnesium 20 MG Pack Commonly known as: NEXIUM estradiol 0.5 MG tablet Commonly known as: ESTRACE naproxen 500 MG tablet Commonly known as: NAPROSYN rOPINIRole 0.5 MG tablet Commonly known as: REQUIP Take 1 tablet by mouth at bedtime Ubrelvy 100 MG Tabs Generic drug: Ubrogepant Time Spent on discharge is 30 minutes in the examination, evaluation, counseling and review of medications and discharge plan. Thank you Lidia Lopez, CUSTOMER SUPPORT COORDINATOR - SPECIAL SHOPPER for the opportunity to be involved in this patient's care. Signed: documented in this encounter [facility] 08-24-2023 [facility] Discharg Viridiana Shafer RN - 08/24/2023 6:35 AM EST Spinal Fusion Wound care/hygiene Keep incision clean and dry. Avoid lotions or antiseptics in the area Shower are acceptable (no baths, pools, Jacuzzi or submersion under water for long periods of time.) Dressing should remain clean, dry, and intact at all times Your bandage will be removed at your post op visit. Unless an earlier dressing change is needed. Call the office and go in for dressing change. If any bleeding or drainage is noted on the dressing, never remove or change the dressing yourself at home, only reinforce with additional guaze and tape. If you have home health care, they will maintain your dressing per physical orders. Change pajamas/clothes daily. Use fresh clean towels, washcloths and linens daily. Do not hold pets or allow them to sleep in your bed during post-op time. Activity No lifting more than 10 lbs for 2 weeks (6 weeks is preferred) No running or jumping for 6 weeks. Increase walking as tolerated No driving for 2 days Keep activity to a minimum for the first 3 days after procedure Avoid long durations for sun exposure (mainly during summer months) Medications Take pain medications as prescribed Complete antibiotics as prescribed and ordered by physician Continue your daily medications Resume blood thinners (Plavix, coumadin, pradaxa, aspirin, eliquis) following procedure No ibuprofen, naproxen, aspirin, or any other NSAIDS (non-steroidal anti-inflammatory drugs) until further notice by physician. Sedation Do not make any important decisions or sign any legal documents for 24 hours. No [address] as noted above. Have someone available to check on you for at least the next 24 hrs. Diet Resume noraml diet, you may eat and drink as normal after procedure Call office [phone] if you have: Temperature greater than 100.4 Persistent nausea and vomiting Severe uncontrolled pain Redness, tenderness, or signs of infection (pain, swelling, redness, odor or green/yellow discharge around the site) Difficulty breathing, headache or visual disturbances Hives Persistent dizziness or light-headedness Extreme fatigue Any other questions or concerns you may have after discharge In an emergency, call 911 or go to an Emergency Department at a nearby hospital I understand and acknowledge receipt of the above instructions. Patient or Guardian Signature Date/Time Physician's or R.N.'s Signature Date/Time The discharge instructions have been reviewed with the patient and/or Guardian. Patient and/or Guardian signed and retained a printed copy. Surgical Site Infections How can we work together to prevent Surgical Site Infections? We would like to thank you for choosing [facility] for your Surgical Care. Below you will find helpful information on how we can work together to prevent Surgical Site Infections. What is a Surgical Site Infection (SSI)? A surgical site infection is an infection that occurs after surgery in the part of the body where the surgery took place. Most patients who have surgery do not develop an infection. However, infections develop in about 1 to 3 out of every 100 patients who have surgery. Some of the common symptoms of a surgical site infection are: Redness and pain around the area where you had surgery Drainage of cloudy fluid from your surgical wound Fever Can SSIs be treated? Yes. Most surgical site infections can be treated with antibiotics. The antibiotic given to you depends on the bacteria (germs) causing the infection. Sometimes patients with SSIs also need another surgery to treat the infection. What are some of the things that hospitals are doing to prevent SSIs? To prevent SSIs, doctors, nurses, and other healthcare providers: May remove some of your hair immediately before your surgery using electric clippers if the hair is in the same area where the procedure will occur. They should not shave you with a razor. Give you antibiotics before your surgery starts. In most cases, you should get antibiotics within 60 minutes before the surgery starts and the antibiotics should be stopped within 24 hours after surgery. Clean the skin at the site of your surgery with a special soap that kills germs. Clean their hands and arms up to their elbows with an antiseptic agent just before the surgery. Wear special hair covers, masks, gowns, and gloves during surgery to keep the surgery area clean. Clean their hands with soap and water or an alcohol-based hand rub before and after caring for each patient. If you do not see your providers clean their hands, please ask them to do so. What can I do to help prevent SSIs? Before your surgery: Tell your doctor about other medical problems you may have. Health problems such as allergies, diabetes, and obesity could affect your surgery and your treatment. Quit smoking. Patients who smoke get more infections. Talk to your doctor about how you can quit before your surgery. Do not shave near where you will have surgery. Shaving with a razor can irritate your skin and make it easier to develop an infection. At the time of your surgery: Speak up if someone tries to shave you with a razor before surgery. Ask why you need to be shaved and talk with your surgeon if you have any concerns. Ask if you will get antibiotics before surgery. After your surgery: Make sure that your healthcare providers clean their hands before examining you, either with soap and water or an alcohol-based hand rub. Family and friends who visit you should not touch the surgical wound or dressings. Family and friends should clean their hands with soap and water or an alcohol-based hand rub before and after visiting you. If you do not see them clean their hands, ask them to clean their hands. What do I need to do when I go home from the hospital? Before you go home, your doctor or nurse should explain everything you need to know about taking care of your wound. Make sure you understand how to care for your wound before you leave the hospital. Always clean your hands before and after caring for your wound. Before you go home, make sure you know who to contact if you have questions or problems after you get home. If you have any symptoms of an infection, such as redness and pain at the surgery site, drainage, or fever, call your doctor immediately. If you have additional questions, please ask your doctor or nurse. documented in this encounter [facility] 06-07-2023 Note Echocardiology Procedure Exam Date/Time Accession # Ordering Dr. Randolph Transthoracic 06/07/2023 09:42 EDT [id number] Riky CONROY, Herve Desai CPT code 31637 [id number] Reason for Exam (Echo Transthoracic Complete) R07.9;Chest pain Report [address] [address] Adult Echocardiogram Report Name: KIZZY JALLOH Study Date: 06/07/2023 09:04 AM BP: 113/75 mmHg Patient Location: [facility] HR: 55 : 1985 Gender: Female Height: 64 in Age: 38 yrs Ethnicity: [facility] Weight: 189 lb Reason For Study: Chest pain BSA: 1.9 m2 History: HTN,smokeless tobacco Ordering Physician: Riky^Herve^D. Referring Physician: Herve Lan Performed By: Kailyn Jackson, LEONIEMS, RVT Interpretation Summary No comparison study is available. Ejection Fraction = 60-65%. The left ventricular wall motion is normal. Normal diastolic function. There is Trace mitral regurgitation. Right ventricular systolic pressure is 22 mmHg. Procedure A complete two-dimensional transthoracic echocardiogram was performed (2D, M-mode, spectral and color flow Doppler). Study quality is good. I WMSI = 1.00 % Normal = 100 Segments Size X - Cannot 2 - 1-2 small Interpret 1 - Normal Hypokinetic 3 - Akinetic 4 - Dyskinetic3-5 moderate 5 - Aneurysmal 6-14 large 15-16 diffuse Left Ventricle The left ventricle is normal in size. There is normal left ventricular wall thickness. Ejection Fraction = 60-65%. The Echocardiology Report left ventricular wall motion is normal. Normal diastolic function. Left Atrium The left atrial size is normal. Right Atrium Right atrial size is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
[2024-02-20 01:07] LABS: Age Gdln ACOG Testing Note (.); HPV Aptima Positive (Negative); HPV Genotype 16 Negative (Negative); HPV Genotype 18,45 Negative (Negative); IGP, Aptima HPV, rfx 16/18,45 Note (.)
== END 2024-02-14 19:20 | disposition home or self-care (01) ==
LOC: LAB 19:19
PROVIDERS: PCP Nurse Practitioner; Visit Provider Obstetrics & Gynecology
DX: Z01.419 Encounter for gynecological examination (general) (routine) without abnormal findings (principal)
CPT/HCPCS: 87624; 88175

== ENCOUNTER 2024-04-24 11:24 | Outpatient (OUT) | payer OTHER, MEDICAID, SELFPAY ==
--- NOTE | 2024-04-24 11:30 | ECG_ITS ---
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
--- NOTE | 2024-04-24 11:43 | XR_ITS ---
The [address] [address] Patient Name: ASHLEE JALLOH MRN: [id number] date: 1985 Sex: F Assigned Patient Location: CARD Current Patient Location: Accession/Order Number: [id number] Exam Date: 04/24/2024 11:46 Report Date: 04/25/2024 09:18 At the request of: LIDIA LUNDBERG Procedure: XR chest 2V PROCEDURE: XR chest 2V DATE: 04/24/2024 10:46 AM CDT COMPARISONS: None. CLINICAL INDICATION: 39 years Female Encounter For Preprocedural Examination FINDINGS: The cardiomediastinal silhouette and pulmonary vasculature are within normal limits. The lungs are clear. There is no evidence of pleural effusion or pneumothorax. XR/XR chest 2V IMPRESSION: Chest radiograph is within normal limits. Electronically authenticated by: RIDGE ELLIOTT Date: 04/25/2024 09:18
--- OUTSIDE RECORDS SUMMARY | 2024-04-24 11:43 | XMS_ITS | CCD ---
Author Organization [facility] Care Team Providers Care Senior Stock Plan Administrator Name Role Phone JONATHAN MONTE Admitting Unavailable JONATHAN MONTE Attending Unavailable JONATHAN MONTE Primary Care Unavailable Harman CALLAWAY Attending Unavailable JONATHAN MONTE Primary Care Unavailable JONATHAN MONTE Attending Unavailable JONATHAN MONTE Primary Care Unavailable Jonathan Monte Primary Care Provider [phone] HAI GARZA Attending Unavailable JONATHAN MONTE Primary Care Unavailabl NOELLE Burrell Attending Unavailable JONATHAN MONTE Primary Care Unavailabl e Jonathan Monte Primary Care Provider MonteJonathan knowles Primary Care Provider Jonathan Monte Primary Care Provider Unavailable Primary Care Provider Unavailabl e Might AIRCRAFT SEAT UPHOLSTERER - CIRCULATION MANAGER, Tiffany W Primary Care Provider Monte AIRCRAFT SEAT UPHOLSTERER - CIRCULATION MANAGER, Jonathan Primary Care Provider Might CIRCULATION MANAGER, Tiffany Primary Care Provider Might AIRCRAFT SEAT UPHOLSTERER - CIRCULATION MANAGER, Tiffany W Primary Care Provider Might AIRCRAFT SEAT UPHOLSTERER - CIRCULATION MANAGER, Tiffany W Primary Care Provider LAKSHMIPATHY ., NARENDRANATH Admitting Lyssa vailable LAKSHMIPATHMontse ., NARENDRANATH Attending Lyssa vailable OSMAR ., DR MARISABEL Knowles Primary Care Unavailable MISC, DR POTTS Consulting Unavailable CHAYITO ., DR TORREZ Admitting Unavailable CHAYITO ., DR TORREZ Attending Unavailable REQUEST, DR RIRI LISTED Primary Care Unavaila ble CHAYITO ., DR TORREZ Consulting Unavailable ZIEBER, DR CINDY Schulte Consulting Unavailable CHAYITO ., DR TORREZ Admitting Unavailable CHAYITO ., DR TORREZ Attending Unavailable PRASAD ., DR MARISABEL Knowles Primary Care Unavailable CHAYITO ., DR TORREZ Consulting Unavailable CHAYITO ., DR TORREZ Admitting Unavailable CHAYITO ., DR TORREZ Attending Unavailable REQUEST, DR MENEZES LISTED Primary Care Unavaila ble CHAYITO ., [...] Bruno Dewey MD, Chi Attending Unavailable Might AIRCRAFT SEAT UPHOLSTERER[facility] Un available Radha Rodrigues Attending Unavaila Bruno Farmer MD, Chi Referring Unavailable Might AIRCRAFT SEAT UPHOLSTERER[facility] available Bruno Dewey MD, Chi Attending Unavailable Missy Sims PA-C Attending Anibal Sam MD [facility] Unavail able Missy Sims PA-C Attending Lyssavai jw Might AIRCRAFT SEAT UPHOLSTERER-[facility] Un available Yulia Hi Attending Unavailable Anibal Mayberry MD [facility] Unavail able Tahir AIRCRAFT SEAT UPHOLSTERER-Geeth[facility] NG Attending Unav ailable Might AIRCRAFT SEAT UPHOLSTERER-[facility], [facility] Care Un available Geetha Goode Attending Unav ailable Obdulia CONROY, Yvon Marks Referring Unavail able Might AIRCRAFT SEAT UPHOLSTERER-[facility], [facility] Un available Elio Young MD Attending Nimeshi jw Might AIRCRAFT SEAT UPHOLSTERER-[facility], [facility] Un available Yulia Hi Attending Unavailable Anibal Mayberry MD [facility] Unavail able Missy Sims PA-Cn Attending Sukhwinder escalera Might AIRCRAFT SEAT UPHOLSTERER-CIRCULATION MANAGER, Tiffany Soto Primary Care Un available Bruno Dewey MD, Chi Attending Unavailable Might AIRCRAFT SEAT UPHOLSTERER-CIRCULATION MANAGER, Tiffany Soto Primary Care Un available Toño, Lidia L Primary Care Physician Toño AIRCRAFT SEAT UPHOLSTERER - CLINICAL PHLEBOTOMIST, Lidia Primary Care Provider NICHOLE MARIN Attending Unavailable NICHOLE MARIN Admitting Unavailable TOÑO, LIDIA Primary Care Unavailable Might CIRCULATION MANAGER, Tiffany Primary Care Provider [phone] Might AIRCRAFT SEAT UPHOLSTERER-CIRCULATION MANAGER, Tiffany W Primary Care Provider TOÑO, LIDIA [...] Unavailable JAVON MOISE Attending Unavailab le TOÑO, LIDIA Primary Care Unavailable RISHABH NIEVES Attending Unavailable [...] Unavailable MIGHT, TIFFANY W Primary Care Unavailable TOMMIE MCCANN Attending Unavailable TOMMIE MCCANN Attending Unavailable GALEN BOUCHER Referring Unavailable TOMMIE MCCANN Attending Unavailable CINDY PARKER Referring Unavailable TOÑO, LIDIA Referring Unavailable TOMMIE MCCANN Attending Unavailable Jose, Darlene M Attending Unavailable Darlene Garcia M Attending Unavailable Jose Darlene M Attending Unavailable Toño, Lidia L Attending Unavailable Toño, Lidia L Attending Unavailable Toño, Lidia L Attending Unavailable Toño, Lidia L Attending Unavailable Jose, Darlene M Attending Unavailable Jose, Darlene M Attending Unavailable Jose, Darlene M Attending Unavailable Jose, Darlene M Attending Unavailable Jose, Darlene M Attending Unavailable Jose, Darlene M Attending Unavailable Toño, Lidia L Attending Unavailable Toño, Lidia L Attending Unavailable Toño, Lidia L Attending Unavailable Toño, Lidia L Attending Unavailable Toño, Lidia L Attending Unavailable Toño, Lidia L Attending Unavailable Christofferic, Herve Desai Admitting Unavaila ble Christtram, Herve Desai Attending Unavaila ble Toño, Lidia L Referring Unavailable [employer] Consulting Unavailable Herve Lan Admitting Unavaila ble ChristHerve ugalde Attending Unavaila ble ChristHerve ugalde Referring Unavaila ble [employer] Consult[employer] Unavailable [employer] Consulting Unavailable [employer] Consulting Unavailable Herve Lan Attending Unavaila ble Herve Lan Referring Unavaila ble ChristoffHerve reyes Admitting Unavaila ble [employer] Consult[employer] Unavailable [employer] Consulting Unavailable Toño, Lidia L Admitting Unavailable Toño, Lidia L Attending Unavailable Toño, Lidia Swenson Referring Unavailable Allergies Allergy Classification Reported Allergen(s) Allergy Type Date of Onset Reaction(s) Facility Nalbuphine (5 sources) Nalbuphine; Translations: [Nalbuphine] Drug Allergy 3 Nausea (finding) [facility] Comment on above: pt states when takin g it becamse dizzy and nauseated was pregant had to be rushed back to surgery. Simethicone (1 source) Simethicone; Translations: [simethicone] Drug Allergy Weal (disorder) [facility] (20 sources) Nalbuphine; Translations: [Unknown] Drug Allergy 3 [place] (20 sources) Nalbuphine; Translations: [nalbuphine] Drug Allergy 7 Nausea and Vomiting, Nausea (finding), Dizziness, Vomiting, Nausea, Tachycardia [facility] Comment on above: pt states when takin g it becamse dizzy and nauseated was pregant had to be rushed back to surgery. (4 sources) Nalbuphine; Translations: [Nubain] Drug Allergy 3 [facility] (14 sources) Silicone (simethicone) obsolete; Translations: [Silicone (simethicone) obsolete] Propensity to adverse reactions (disorder) Weal (disorder) [facility] Rep[facility] (4 sources) Silicone adhesive tape Propensity to adverse reactions to drug 3 Rash [facility] (5 sources) Silicones; Translations: [SILICONE] Drug Allergy 3 Hives [facility] (1 source) Adhesive agent; Translations: [ADHESIVE] Propensity [...] 1 tablet take 1 tablet by marc th once daily as needed for pain oxyCODONE-acetaminophen [...] MENTIN) 875-125 MG per tablet 1 tablet Apri (7 sources) Start: 02-20-2024 take 1 tablet by mouth once daily Apri 1 tab(s), Oral, Daily, Refill(s) 0 Start Date: 02/20/24 Status: Ordered benzonatate 100 mg oral capsule (1 source) [...] Active cetirizine hydrochloride 10 mg oral capsule (3 sources) Histamine-1 Receptor Antagonist Start: 12-20-2023 take 1 capsule by mouth once daily as needed cetirizine 10 mg oral capsule 10 mg = 1 cap(s), Oral, Daily, PRN for allergy symptoms, # 30 cap(s), Refills(s) 1, Pharmacy: [facility] [id number], 161.6, cm, 12/20/23 10:24:00 EDT, Height/Length Dosing, [...] Aminoglycoside Antibacterial, Corticosteroid Start: 06-13-2022 End: 06-23-2022 lgjsasiu-tvvjcdjz-compftpuua s one-thonzonium (CORTISPORIN-TC) 3.3-3-10-0.5 MG/ML otic suspension [...] 1 tablet by marc th once daily desvenlafaxine succinate (PRISTIQ) 100 MG [...] packet by mouth daily 0 Active Estradiol (10 sources) Estrogen Start: 12-13-2023 ESTRADIOL 1 MG [...] / neomycin 3.5 mg/ml / polymyxin b 91794 unt/ml otic solution (3 sources) Aminoglycoside Antibacterial, Polymyxin-class Antibacterial, Corticosteroid Start: 06-14-2022 End: 06-24-2022 neomycin-polymyxi n-hydrocortisone (CORTISPORIN) 3.5-72028-9 otic solution Indications: Acute otitis externa of [...] 01/12/2022 Active montelukast 10 mg oral tablet (2 sources) Leukotriene Receptor Antagonist Start: 12-20-2023 take 1 tablet by mouth once daily in the evening Singulair 10 mg Tab 10 mg = 1 tab(s), Oral, qPM, # 30 tab(s), Refills(s) 0, Pharmacy: [facility] [id number], 161.6, cm, 12/20/23 10:24:00 EDT, Height/Length Dosing, [...] mg phentermine hydrochloride 37.5 mg oral tablet (14 sources) Sympathomimetic Amine Anorectic Start: 01-22-2024 phentermine 37.5 mg Tab 37.5 mg = 1 tab(s), Oral, Daily, 30 day supply bmi 31.13, # 30 tab(s), Refills(s) 0, Pharmacy: [facility] [id number], 161.6, cm, 01/22/24 9:54:00 EDT, Height/Length Dosing, 76.3, kg, 01/22/24 9:54:00 EDT, Weight Dosing Start Date: 01/22/24 Status: Ordered take 1 capsule by mouth once gideon ly phentermine 37.5 MG capsule Take 1 capsule (37.5 mg total) by mouth once daily. 0 Active polyethylene glycol 3350 79197 mg powder for oral solution (1 source) [...] Start: 08-19-2021 take 1 capsule by mo ut once daily prazosin (MINIPRESS) 2 MG capsule Indications: PTSD (post-traumatic stress disorder) Take 1 capsule by mouth nightly 90 capsule 1 08/19/2021 Active Start: 05-26-2021 take 1 capsule by mo ut once daily prazosin (MINIPRESS) 1 MG capsule [...] bedtime, # 30 tab(s), Refills(s) 2, Pharmacy: [facility] [id number], 161.6, cm, 05/18/23 10:58:00 EDT, Height/Length Dosing, [...] chloride bolus ubrogepant 100 mg oral tablet (20 sources) Start: 06-19-2021 take 1 tablet by [...] 08-28-2018 Resolved: 08-18-2022 08-28-2018 Episodic Allergic reactions (9 sources) Allergic condition 12-20-2023 Episodic Anxiety disorders (20 sources) Posttraumatic stress disorder; Translations: [Post-traumatic stress disorder, unspecified] Onset: 05-26-2021 05-26-2021 Chronic Coma; stupor; and brain damage (9 sources) Daytime somnolence 12-20-2023 Episodic Conditions associated with [...] fatigue, unspecified] Onset: 08-28-2018 Chronic Mood disorders (20 sources) Dysthymia; Translations: [Dysthymic disorder] Onset: 05-26-2021 05-26-2021 Chronic Osteoarthritis (2 sources) Bilateral primary osteoarthritis of knee; Translations: [Unspecified osteoarthritis, unspecified site] Onset: 10-16-2022 Chronic Other acquired deformities (11 sources) Lordosis deformity of spine; Translations: [Lordosis, unspecified, site unspecified] Onset: 04-06-2022 04-11-2022 Chronic Other aftercare (1 source) Wound ; Translations: [Encounter for other specified surgical aftercare] Episodic Other and unspecified benign neoplasm (2 sources) Angiomyolipoma of left kidney; Translations: [Benign lipomatous neoplasm of kidney] Onset: 09-11-2023 09-11-2023 Episodic Other and unspecified benign neoplasm (9 sources) Benign neoplasm of kidney 09-25-2023 Episodic Other [...] Episodic Other ear and sense organ disorders (9 sources) Myringitis 12-13-2023 Episodic Other ear and sense [...] cough] 09-28-2023 Episodic Other lower respiratory disease (9 sources) Apnea 12-20-2023 Episodic Other lower respiratory disease (9 sources) Snoring 12-20-2023 Episodic Other nervous system disorders (13 sources) Chronic pain syndrome; Translations: [Chronic pain syndrome] Onset: 05-26-2021 Chronic Other nervous system disorders (1 source) Other chronic pain; Translations: [Other chronic pain] Onset: 05-22-2023 Chronic Other nervous system disorders (1 source) Facial paresthesia; Translations: [Facial paresthesia] Episodic Other nervous system disorders (7 sources) Cold feet 02-20-2024 Episodic Other nervous system disorders (7 sources) Numbness of lower limb 02-20-2024 Episodic Other non-traumatic joint disorders (2 sources) [...] Chronic Other nutritional; endocrine; and metabolic disorders (9 sources) Weight gain 09-25-2023 Episodic Other screening for suspected conditions (not mental disorders or infectious disease) (7 sources) Patient encounter status; Translations: [Encounter for screening for lipoid disorders] Onset: 01-18-2023 Episodic Other upper respiratory disease (7 sources) Perforation of nasal septum 02-20-2024 Episodic Other upper respiratory disease (1 source) Other specified disorders of nose and nasal sinuses; Translations: [Other specified disorders of nose and nasal sinuses] Onset: 03-06-2024 Episodic Otitis media and related conditions (17 sources) Recurrent acute serous otitis media of right middle ear; Translations: [Acute serous otitis media, recurrent, right ear] Onset: 12-11-2023 Episodic Peripheral and visceral atherosclerosis (7 sources) Peripheral vascular disease 02-20-2024 Chronic Poisoning by nonmedicinal substances (1 source) Tick bite; Translations: [Tick bite with subsequent removal of tick] Episodic Residual codes; unclassified (9 sources) Abnormal rapid eye movement sleep 12-20-2023 Chronic Residual codes; unclassified (9 sources) Obstructive sleep apnea syndrome 12-20-2023 Chronic Residual [...] [Low back pain, unspecified] Onset: 05-22-2023 Unclassified (9 sources) Patient encounter status 10-25-2023 Unclassified (1 source) Ear Drainage Onset: 01-09-2024 Unclassified (1 source) Bollous myringitis Onset: 12-11-2023 Viral infection (1 source) COVID-19; Translations: [COVID-19] [...] Test Name Value Interpretation Reference Range Facility Ambulatory Visit Summaryon 0 03-18-2024 Ambulatory Visit Summary Ambulatory Visit Summary KIZZY JALLOH :1985 Visit Date:03/18/2024 Ambulatory Visit Instructions Your Diagnosis Recurrent severe major depressive disorder co-occurrent with anxiety Posttraumatic stress disorder Your Care Team Attending Physician - Darlene Dillard Primary Care Physician - Lidia Jones This Is Your Medications List desogestrel-ethinyl estradiol (Apri) esomeprazole (Nexium 20 mg Cap-DR) naproxen (naproxen 500 mg Tab) phentermine (phentermine 37.5 mg Tab) ubrogepant (Ubrelvy 100 mg oral tablet) Procedures Performed Surgery (2022), Surgery (2022), Surgery (2020), delivery (2016), delivery, Hysterectomy, Surgery. What to do next Scheduled Follow-Up Appointments Sunday 1:00 PM EDT With: Where: [facility] Sunday 10:00 AM EDT With: Dalrene Dillard Where: [facility] Sunday 10:00 AM EDT With: Darlene Dillard Where: [facility] Medications What How Much When Why Instructions Unchanged desogestrel-ethinyl estradiol (Apri) 1 Tablets By Mouth Every day Unchanged esomeprazole (Nexium 20 mg Cap-DR) 1 Capsules By Mouth Every day Unchanged naproxen (naproxen 500 mg Tab) 1 Tablets By Mouth 2 times a day Unchanged phentermine (phentermine 37.5 mg Tab) 1 Tablets By Mouth Every day Angiolipoma of right kidney Flank pain Non-smoker BMI 32.0-32.9,adult Weight gain 30 day supply bmi 31.13 Unchanged ubrogepant (Ubrelvy 100 mg oral tablet) 1 Tablets By Mouth Once may repeat dose in 2 hours if needed Allergies Nubain (Nausea) Silicone (simethicone) obsolete (Hives) Problems Ongoing - Any problem that you are currently receiving treatment for. Abnormal rapid eye movement sleep Allergies Angiolipoma of right kidney Cold feet Daytime somnolence Encounter for weight management Flank pain Fluid level behind tympanic membrane of both ears Loud snoring Low back pain Migraine headache Myringitis of left ear Nasal septal perforation Numbness of both lower extremities Obstructive apnea Poor circulation of extremity Posttraumatic stress disorder Recurrent severe major depressive disorder co-occurrent with anxiety Weight gain Witnessed episode of apnea Patient Survey You may receive a survey via text or e-mail asking about your office visit. Please share your experience with us by completing your survey. We appreciate your feedback and thank you for choosing us for your care. [facility] RAD - CT Reporton 03-05-2024 RAD - CT Report [id number] #[id number] [facility] MR HIP RIGHT WO IV CONTRASTo n 02-26-2024 MR HIP RIGHT WO IV CONTRAST EXAM: MR HIP RIGHT WO IV CONTRAST HISTORY: Right hip pain and right groin pain. COMPARISON: None available. TECHNIQUE: Multiplanar multisequence MRI of the right hip was performed without contrast. FINDINGS: No acute or aggressive osseous abnormality or evidence of stress reaction. Postsurgical changes of the lumbar spine noted. Common hamstring tendon is intact. Iliopsoas and rectus femoris tendons are intact. Low-grade partial stripping of gluteus minimus tendon at the greater trochanter superimposed on mild tendinosis. Gluteus medius tendon is intact. No trochanteric bursal effusion. External rotators tendons are intact. Adductor compartment myotendinous structures are intact. The sciatic nerve is within normal limits in course and morphology. Tiny nondisplaced tear of the anterior superior labrum. No well-defined or measurable cartilage defect. The visualized intrapelvic structures appear within normal limits. IMPRESSION: Tiny nondisplaced tear of the anterior superior labrum. Low-grade partial stripping of gluteus minimus tendon at the greater trochanter superimposed on mild tendinosis. ELECTRONICALLY SIGNED BY: DO Dickson Romero Not Available Ambulatory Visit Summaryon 0 02-20-2024 Ambulatory Visit Summary KIZZY JALLOH :1985 Visit Date:02/20/2024 Ambulatory Visit Instructions Your Diagnosis Encounter for weight management Migraine headache Nasal septal perforation BMI 28.0-28.9,adult Overweight Nonsmoker Tests Performed CT Maxillofacial w/o Contrast -- Results Pending -- Please visit your patient portal for your results or contact your primary care physician. Your Care Team Attending Physician - Lidia Jones Primary Care Physician - Lidia Jones This Is Your Medications List desogestrel-ethinyl estradiol (Apri) esomeprazole (Nexium 20 mg Cap-DR) naproxen (naproxen 500 mg Tab) phentermine (phentermine 37.5 mg Tab) ubrogepant (Ubrelvy 100 mg oral tablet) Procedures Performed Surgery (2022), Surgery (2022), Surgery (2020), delivery (2016), delivery, Hysterectomy, Surgery. Discharge Vitals Temperature (Temporal Artery) 36.9 ?C Heart Rate (Peripheral) 72 Respiratory Rate 16 Blood Pressure 102/72 Height 161.6 cm Height 64 in Weight 75.0 kg Weight 165 lb BMI 28.72 What to do next Scheduled Follow-Up Appointments Sunday 10:00 AM EDT With: Darlene Dillard Where: [facility] Medications What How Much When Why Instructions Unchanged desogestrel-ethinyl estradiol (Apri) 1 Tablets By Mouth Every day Unchanged esomeprazole (Nexium 20 mg Cap-DR) 1 Capsules By Mouth Every day Unchanged naproxen (naproxen 500 mg Tab) 1 Tablets By Mouth 2 times a day Unchanged phentermine (phentermine 37.5 mg Tab) 1 Tablets By Mouth Every day Angiolipoma of right kidney Flank pain Non-smoker BMI 32.0-32.9,adult Weight gain 30 day supply bmi 31.13 Unchanged ubrogepant (Ubrelvy 100 mg oral tablet) 1 Tablets By Mouth Once may repeat dose in 2 hours if needed Allergies Nubain (Nausea) Silicone (simethicone) obsolete (Hives) Problems Ongoing - Any problem that you are currently receiving treatment for. Abnormal rapid eye movement sleep Allergies Angiolipoma of right kidney Daytime somnolence Encounter for weight management Flank pain Fluid level behind tympanic membrane of both ears Loud snoring Low back pain Migraine headache Myringitis of left ear Nasal septal perforation Obstructive apnea Posttraumatic stress disorder Recurrent severe major depressive disorder co-occurrent with anxiety Weight gain Witnessed episode of apnea Patient Survey You may receive a survey via text or e-mail asking about your office visit. Please share your experience with us by completing your survey. We appreciate your feedback and thank you for choosing us for your care. [facility] Family Medicine Office/Clini c Noteon 02-20-2024 Family Medicine Office/Clinic Note HPI Staff Kizzy is a 39 year old female presenting for 1 month follow up Weight management: Started Phentermine on 09/25/23 Sleeping well:Yes, 6-8 hourssometimes Chest pain:No Tremors:No Headaches:Yes Heart fluttering:No Blurred Vision:No Beginning weight: 199.5 Previous weight: 167.8 Today's weight: 165 lbs phq9: 18 Questions/Concerns: talk about her feet, and hole in septum of nose Needs her adipex refilled if can continue on it and will you take over prescribing her ubrelvy History of Present Illness pt presents today for weight management Review of Systems PHQ Score Initial Depression Screen Score: 6 SCORE Physical Exam Vitals & Measurements T: 36.9 ?C(Temporal Artery) HR: 72(Peripheral) RR: 16 BP: 102/72 SpO2: 99% HT: 64 in HT: 161.6 cm WT: 75.0 kg WT: 165 lb BMI: 28.72 General: alert, no acute distress ENMT: oral [...] encountering health services in other specified circumstances) total weight loss since September is 34 pounds. will not continue adipex since her BMI is 28 Ordered: cetirizine, 10 mg = 1 cap(s), Oral, Daily, PRN for allergy symptoms, # 30 cap(s), Refills(s) 1, Pharmacy: [facility] [id number], 161.6, cm, 12/20/23 10:24:00 EDT, Height/Length Dosing, 77, kg, 12/20/23 10:24:00 EDT, Weight Dosing montelukast, 10 mg = 1 tab(s), Oral, qPM, # 30 tab(s), Refills(s) 0, Pharmacy: [facility] [id number], 161.6, cm, 12/20/23 10:24:00 EDT, Height/Length Dosing, 77, kg, 12/20/23 10:24:00 EDT, Weight Dosing 2. Migraine headache (G43.909: Migraine, unspecified, not intractable, without status migrainosus) will need refill on ubrevley 3. Nasal septal perforation (J34.89: Other specified disorders of nose and nasal sinuses) pt noticed a month ago that she has a hole in her nasal septum. she is able to pass a q tip through it. will order CT scan. pt will call her ENT for further evaluation Ordered: CT Maxillofacial w/o Contrast 4. Numbness of both lower extremities (R20.0: Anesthesia of skin) pt has had issues with numbness and pain of lower extremities. this is worsening and causing her trouble with walking. she feels like she is constantly tripping and not lifting her legs like she should Ordered: EMG Bilateral Lower Extremity (BLE) 5. Cold feet (R20.9: Unspecified disturbances of skin sensation) feet are always cold to touch Ordered: EMG Bilateral Lower Extremity (BLE) 6. Poor circulation of extremity (R09.89: Other specified symptoms and signs involving the circulatory and respiratory systems) pt states her feet and toes get very white and keira Ordered: EMG Bilateral Lower Extremity (BLE) 7. BMI 28.0-28.9,adult (Z68.28: Body mass index [BMI] 28.0-28.9, adult) pt will continue good food choices 8. Overweight (E66.3: Overweight) see above 9. Nonsmoker (Z78.9: Other specified health status) continue not smoking Follow-up No qualifying data available Problem List/Past Medical History Ongoing Abnormal rapid eye movement sleep Allergies Angiolipoma of right kidney Cold feet Daytime somnolence Encounter for weight management Flank pain Fluid level behind tympanic membrane of both ears Loud snoring Low back pain Migraine headache Myringitis of left ear Nasal septal perforation Numbness of both lower extremities Obstructive apnea Poor circulation of extremity Posttraumatic stress disorder Recurrent severe major depressive disorder co-occurrent with anxiety Weight gain Witnessed episode of apnea Historical No qualifying data Procedure/Surgical History Surgery (2022), Surgery (2022), Surgery (2020), delivery (2016), delivery, Hysterectomy, Surgery. Medications Apri, 1 tab(s), Oral, Daily naproxen 500 mg Tab, 500 mg= 1 tab(s), Oral, BID Nexium 20 mg Cap-DR, 20 mg= 1 cap(s), Oral, Daily phentermine 37.5 mg Tab, 37.5 mg= 1 tab(s), Oral, Daily Ubrelvy 100 mg oral tablet, 100 mg= 1 tab(s), Oral, Once Allergies Nubain (Nausea) Silicone (simethicone) obsolete (Hives) Social History Tobacco Never (less than 100 in lifetime) Tobacco Use:. Never Smokeless Tobacco Use:. Household tobacco concerns: No., 02/20/2024 Family History Patient was adopted Immunizations Vaccine Date Status Comments influenza virus vaccine, inactivated 07/07/2022 Recorded SARS-CoV-2 (COVID-19) mRNA BNT-162b2 vax 02/25/2021 Recorded 2023-05-18: TPVAL SARS-CoV-2 (COVID-19) mRNA BNT-162b2 vax 02/04/2021 Recorded 2023-05-18: TPVAL influenza virus vaccine, inactivated 07/02/2020 Recorded influenza virus vaccine, inacti (more content not included)... Normal [facility] Comment on above: Result Comment: Elec tronically Signed By: Lidia Jones\.br\Date and Time Signed: 02/20/24 09:50 EDT Ambulatory Visit Summaryon 0 02-19-2024 Ambulatory Visit Summary KIZZY JALLOH :1985 Visit Date:02/19/2024 Ambulatory Visit Instructions Your Diagnosis Recurrent severe major depressive disorder co-occurrent with anxiety Posttraumatic stress disorder Your Care Team Attending Physician - Darlene Dillard Primary Care Physician - Lidia Jones This Is Your Medications List [facility] Prescription (ESTRADIOL 1 MG TABLET) cetirizine (cetirizine 10 mg oral capsule) esomeprazole (Nexium 20 mg Cap-DR) montelukast (Singulair 10 mg Tab) naproxen (naproxen 500 mg Tab) phentermine (phentermine 37.5 mg Tab) ubrogepant (Ubrelvy 100 mg oral tablet) Procedures Performed Surgery (2022), Surgery (2022), Surgery (2020), delivery (2016), delivery, Hysterectomy, Surgery. What to do next Scheduled Follow-Up Appointments Sunday 8:20 AM EDT With: Lidia Jones Where: [facility] [place] Normal [facility] MR SHOULDER RIGHT WO IV CONT RASTon [...] 8:00 AM EDT With: Darlene Dillard Where: [facility] Sunday 8:20 AM EDT With: Lidia Jones Where: [facility] [place] Normal [facility] Sleep Studieson 02-05-2024 Sleep Studies [id number]# 1.00TIFF Normal [facility] Ambulatory Visit Summaryon 0 01-22-2024 Ambulatory Visit [...] 9:00 AM EDT With: Darlene Dillard Where: [facility] Sunday 8:20 AM EDT With: Lidia Jones Where: [facility] [place] Normal [facility] Family Medicine Office/Clini c Noteon 01-22-2024 Family [...] 31.13, # 30 tab(s), Refills(s) 0, Pharmacy: [facility] [id number], 161.6, cm, 01/22/24 9:54:00 EDT, Height/Length Dosing, 76.3, kg, 01/22/24 9:54:00 EDT, Weight Dosing phentermine, 37.5 mg = 1 tab(s), Oral, Daily, 30 day supply bmi 31.13, # 30 tab(s), Refills(s) 0, Pharmacy: [facility] [id number], 161.6, cm, 12/20/23 10:24:00 EDT, Height/Length Dosing, 77, kg, 12/20/23 10:24:00 EDT, Weight Dosing ropinirole, 1 mg = 1 tab(s), Oral, Bedtime, 1 to 3 hours before bedtime, # 30 tab(s), Refills(s) 2, Pharmacy: [facility] [id number], 161.6, cm, 05/18/23 10:58:00 EDT, Height/Length Dosing, [...] virus vaccine, inactivated 07/14/2019 Recorded Normal [facility] Comment on above: Result Comment: Elec tronically Signed By: Lidia Jones\.br\Date and Time Signed: 01/22/24 10:56 EDT Interdisciplinary Note - Soc ronyl Workerjuan 01-17-2024 Interdisciplinary Note - Personal Lines Agent Consult for positive depression screen received. SW made tc to patient to discuss this. She states that these issues have been ongoing since childhood and she knows she needs to get in to see someone. Patient was agreeable to a referral being sent to [facility] for follow up. She reports that she has anxiety, depression, and PTSD. Referral was sent. SW will remain available. Normal [facility] XR SHOULDER RIGHT (MIN 2 VIE WS)on [...] unremarkable. IMPRESSION: No acute abnormality. Interpreted by: Dreek Paulino MD Signed by: Derek Paulino MD 01/06/24 Final result Normal [facility] LARISSA Screenon 12-27-2023 LARISSA Screen Negative Normal NEG [facility] Comment on above: Performed By: #### H CG #### [facility] [address] [place] [address] [place] [address] Justice: Vitaliy Mccall MD Anti-dsDNA <0.5 Normal <10.0 [facility] Comment on above: Result Comment: Reference Range: <10.0 Negative 10.0-15.0 Equivocal >15.0 Positive Performed By: #### H CG #### [facility] [address] [place] [address] [place] [address] Justice: Vitaliy Mccall MD MICK Screen 0.2 U/mL Normal <0.7 [facility] Comment on above: Result Comment: Reference Range: <0.7 Negative 0.7-1.0 Equivocal >1.0 Positive MICK Screen includes U1RNP,RNP70,Sm,Ro(SS-A),La(SS-B),CENP,Scl-70,Jacquelyn-1 Performed By: #### H CG #### [facility] [address] [place] [address] [place] [address] Justice: Vitaliy Mccall MD HLA Antigen B27on 12-27-2023 HLA Antigen B27 Negative Normal Negative [facility] Comment on above: Result Comment: (NOT E) INTERPRETIVE INFORMATION: HLA-B27 HLA-B27 is a serologically defined allele of the human HLA-B locus. The presence of the HLA-B27 antigen is strongly associated with ankylosing spondylitis and related disorders. This test was developed and its performance characteristics determined by [facility]. It has not been cleared or approved by the [place] Food and Drug Administration. This test was performed in a CLIA certified laboratory and is intended for clinical purposes. Performed By: [facility] [address] [place] [id number] Fugitive Detective: Gonzales Velazquez MD, PhD CLIA Number: [id number] Performed By: #### H CG #### [facility] [address] [place] [address] [place] [address] Justice: Vitaliy Mccall MD RA Screenon 12-27-2023 RA Screen <10 Normal 0-13 [facility] Comment on above: Performed By: #### H CG #### [address] [place] [address] Justice: Vitaliy Mccall MD C-Reactive Proteinon 024 CRP [Mass/Vol] mg/L Normal 0.0-5.0 [facility] Comment on above: Performed By: #### H CG #### [address] [place] [address] Justice: Vitaliy Mccall MD Sedimentation Rateon 024 Sedimentation Rate 2 mm/Hr Normal 0-20 [facility] Comment on above: Performed By: #### H CG #### [address] [place] [address] Justice: Vitaliy Mccall MD Ambulatory Visit Summaryon 0 12-20-2023 Ambulatory Visit Summary KIZZY JALLOH :1985 Visit Date:12/20/2023 Ambulatory Visit Instructions Your Diagnosis Encounter for weight management BMI 29.0-29.9,adult Your Care Team Attending Physician - Lidia Jones Primary Care Physician - Lidia Jones This Is Your Medications List Mis Prescription (ESTRADIOL 1 MG TABLET) esomeprazole (Nexium [...] 10:20 AM EDT With: Lidia Jones Where: [facility] Ambulatory Visit Summary KIZZY JALLOH :1985 Visit Date:12/20/2023 Ambulatory Visit Instructions Your Diagnosis Encounter for weight management BMI 29.0-29.9,adult Your Care Team Attending Physician - Lidia Jones Primary Care Physician - Lidia Jones This Is Your Medications List Mis Prescription (ESTRADIOL 1 MG TABLET) esomeprazole (Nexium [...] 10:20 AM EDT With: Lidia Jones Where: [facility] Family Medicine Office/Clini c Noteon 12-20-2023 Family Medicine [...] apnea testing. will order home test through [facility] 3. Loud snoring (R06.83: Snoring) see [...] influenza virus vaccine, inactivated 07/14/2019 Recorded Normal [facility] Comment on above: Result Comment: Elec tronically Signed By: Lidia Jones\.taniya\Date and Time Signed: 12/20/23 10:58 EDT Physician Orderon 12-20-2023 Physician Order [id number] #1.00TIFF Normal [facility] Ambulatory Visit Summaryon 0 12-13-2023 Ambulatory Visit Summary SHUBHAMKIZZY :1985 Visit Date:12/13/2023 Ambulatory Visit Instructions Your [...] 10:20 AM EDT With: Lidia Jones Where: [facility] [place] Normal [facility] Family Medicine Office/Clini c Noteon 12-13-2023 Family Medicine Office/Clinic Note HPI Staff Kizzy is a 38 year old female presenting for ER follow up ER followup: Hospital: [place] (records requested 12/11/23) Visit date: 12/11/23 Symptoms the patient presented with: left Ear pain Symptom onset/injury onset: left ear pain, bloody discharge Diagnosis: Bullous Myringitis of Left ear New medications: Augmentin Current concerns: Patient had appointment with [facility] on 12/11/23 and was started on [...] influenza virus vaccine, inactivated 07/14/2019 Recorded Normal [facility] Comment on above: Result Comment: Elec tronically Signed By: Lidia Jones\.br\Date and Time Signed: 12/13/23 11:15 EDT Auth for Release of Medical Recordson 12-11-2023 Auth for Release of Medical Records [id number] #1.00TIFF Normal [facility] Family Medicine Office/Clini c Noteon 11-23-2023 Family [...] virus vaccine, inactivated 07/14/2019 Recorded Normal [facility] Comment on above: Result Comment: Elec tronically Signed By: Lidia Jones\.br\Date and Time Signed: 11/23/23 10:25 EDT Ambulatory Visit Summaryon 0 10-25-2023 Ambulatory Visit Summary SHUBHAMKIZZY :1985 Visit Date:10/25/2023 Ambulatory Visit Instructions Your [...] 10:20 AM EDT With: Lidia Jones Where: [facility] [place] Normal [facility] Family Medicine Office/Clini c Noteon 10-25-2023 Family [...] Daily, # 30 tab(s), Refills(s) 0, Pharmacy: [facility] [id number], 161.6, cm, 09/25/23 11:43:00 EST, Height/Length Dosing, 90.7, kg, 09/25/23 11:43:00 EST, Weight Dosing phentermine, 37.5 mg = 1 tab(s), Oral, Daily, # 30 tab(s), Refills(s) 0, Pharmacy: [facility] [id number], 161.6, cm, 10/25/23 9:42:00 EST, Height/Length Dosing, 85.4, kg, 10/25/23 9:42:00 EST, Weight Dosing 3. Non-smoker (Z78.9: Other specified health status) continue not smoking Ordered: phentermine, 37.5 mg = 1 tab(s), Oral, Daily, # 30 tab(s), Refills(s) 0, Pharmacy: [facility] [id number], 161.6, cm, 09/25/23 11:43:00 EST, Height/Length Dosing, 90.7, kg, 09/25/23 11:43:00 EST, Weight Dosing phentermine, 37.5 mg = 1 tab(s), Oral, Daily, # 30 tab(s), Refills(s) 0, Pharmacy: [facility] [id number], 161.6, cm, 10/25/23 9:42:00 EST, Height/Length Dosing, [...] influenza virus vaccine, inactivated 07/14/2019 Recorded Normal [facility] Comment on above: Result Comment: Elec tronically Signed By: Lidia Jones\.taniya\Date and Time Signed: 10/25/23 10:36 EST RAD - Ultrasound Reporton RAD - Ultrasound Report [id number] #1.00TIFF Normal [facility] BMPon 09-28-2023 Anion gap [Moles/Vol] 11 mmol/L 9 - 17 mmol/L [facility] Calcium [Mass/Vol] 9.3 mg/dL 8.6 - 10. 4 mg/dL [facility] Chloride [Moles/Vol] 103 mmol/L 98 - 10 7 mmol/L [facility] CO2 [Moles/Vol] 22 mmol/L 20 - 31 mmol/L [facility] Creatinine [Mass/Vol] 0.7 mg/dL 0.5 - 0.9 mg/dL [facility] GFR/1.73 sq M.predicted MDRD (S/P/Bld) [Vol rate/Area] - PINF [facility] Comment on above: These results are not [...] 134 mg/dL High 70 - 99 mg/dL [facility] Interpretation and review of laboratory results Abnormal [facility] Potassium [Moles/Vol] 4.0 mmol/L 3.7 - 5.3 mmol/L [facility] Sodium [Moles/Vol] 136 mmol/L 135 - 144 mmol/L [facility] Urea nitrogen [Mass/Vol] 11 mg/dL 6 - 20 mg/dL [facility] Urea nitrogen/Creatinine [Mass ratio] 16 mg/mg 9 - 20 [facility] Basic Metabolic Profon 09-28 Anion gap [Moles/Vol] 11 mmol/L Normal -17 [facility] Comment on above: Performed By: #### C DP, BMP #### [facility] [address] [place] [address] Justice: Vitaliy Mccall MD BUN/CRE Ratio 16 Normal - [facility] Comment on above: Performed By: #### C DP, BMP #### [facility] [address] [place] [address] Justice: Vitaliy Mccall MD Calcium [Mass/Vol] 9.3 mg/dL Normal 8.6-10.4 [facility] Comment on above: Performed By: #### C DP, BMP #### [facility] [address] [place], [place] [id number] Administrative Court Justice: Vitaliy Mccall MD Chloride [Moles/Vol] 103 mmol/L Normal 98-107 [facility] Comment on above: Performed By: #### C DP, BMP #### [facility] [address] [place], [place] [id number] Administrative Court Justice: Vitaliy Mccall MD CO2 [Moles/Vol] 22 mmol/L Normal 20-31 [facility] Comment on above: Performed By: #### C DP, BMP #### [facility] [address] [place], [place] [id number] Administrative Court Justice: Vitaliy Mccall MD Creatinine [Mass/Vol] 0.7 mg/dL Normal 0.5-0.9 [facility] Comment on above: Performed By: #### C DP, BMP #### [facility] [address] [place], [place] [id number] Administrative Court Justice: Vitaliy Mccall MD GFR/1.73 sq M.predicted among non-blacks MDRD (S/P/Bld) [Vol rate/Area] mL/min/{1.73_m2} Normal >60 [facility] Comment on above: Result Comment: These results [...] Performed By: #### C DP, BMP #### [facility] [address] [place] [address] Justice: Vitaliy Mccall MD Glucose [Mass/Vol] 134 mg/dL High 70-99 [facility] Comment on above: Performed By: #### C DP, BMP #### [facility] [address] [place] [address] Justice: Vitaliy Mccall MD Potassium [Moles/Vol] 4.0 mmol/L Normal 3.7-5.3 [facility] Comment on above: Performed By: #### C DP, BMP #### [facility] [address] [place] [address] Justice: Vitaliy Mccall MD Sodium [Moles/Vol] 136 mmol/L Normal 135-144 [facility] Comment on above: Performed By: #### C DP, BMP #### [facility] [address] [place] [address] Justice: Vitaliy Mccall MD Urea nitrogen [Mass/Vol] 11 mg/dL Normal 6-20 [facility] Comment on above: Performed By: #### C DP, BMP #### [facility] [address] [place] [address] Justice: Vitaliy Mccall MD CBC with Auto Differentialon 09-28-2023 Basophils (Bld) [#/Vol] 0.04 10*3/uL [facility] Basophils/100 WBC (Bld) 0 % 0 - 2 % [facility] Eosinophils (Bld) [#/Vol] 0.04 10*3/uL [facility] Eosinophils/100 WBC (Bld) 0 % Low 1 - 4 % [facility] Erythrocyte distribution width (RBC) [Ratio] 12.4 % 11.8 - 14.4 % [facility] Hematocrit (Bld) [Volume fraction] 39.2 % 36.3 - 47.1 % [facility] Hemoglobin (Bld) [Mass/Vol] 13.1 g/dL 11.9 - 15.1 g/dL [facility] Immature granulocytes (Bld) [#/Vol] 0.03 10*3/uL [facility] Immature granulocytes/100 WBC (Bld) 0 % 0 [facility] Interpretation and review of laboratory results Abnormal [facility] Lymphocytes/100 WBC (Bld) 8 % Low 24 - 43 % [facility] Lymphocytes/100 WBC (Bld) 0.83 % Low [facility] MCH (RBC) [Entitic mass] 29.6 pg 25.2 - 33.5 pg [facility] MCHC (RBC) [Mass/Vol] 33.4 g/dL 28.4 - 34.8 g/dL [facility] MCV (RBC) [Entitic vol] 88.7 fL 82.6 - 102.9 fL [facility] Monocytes/100 WBC (Bld) 7 % 3 - 12 % [facility] Monocytes/100 WBC (Bld) 0.77 % [facility] Neutrophils/100 WBC (Bld) 85 % High 36 - 65 % [facility] Nucleated RBC/100 WBC (Bld) [Ratio] 0.0 % 0.0 per 100 WBC [facility] Platelet mean volume (Bld) [Entitic vol] 10.0 fL 8.1 - 13.5 fL [facility] Platelets (Bld) [#/Vol] 262 10*3/uL [facility] RBC (Bld) [#/Vol] 4.42 10*6/uL 3.95 - 5.1 1 m/uL [facility] Segmented neutrophils/100 WBC (Bld) 8.67 % High [facility] WBC other (Bld) [#/Vol] 10.4 B ON [facility] CBC with Diffon 09-28-2023 Abs. Basophil 0.04 k/uL Normal 0.00-0.20 [facility] Comment on above: Performed By: #### C GABRIEL, BMP #### [facility] [address] [place] [address] Justice: Vitaliy Mccall MD Abs.Imm.Granulocyte 0.03 k/uL Normal 0.00-0.30 [facility] Comment on above: Performed By: #### C GABRIEL, BMP #### [facility] [address] [place], [place] [id number] Administrative Court Justice: Vitaliy Mccall MD Abs.Neutrophil (Seg) 8.67 k/uL High 1.50-8.10 [facility] Comment on above: Performed By: #### C DP, BMP #### [address] [place], [place] [id number] Administrative Court Justice: Vitaliy Mccall MD Basophils/100 WBC (Bld) 0 % Normal 0-2 [facility] Comment on above: Performed By: #### C DP, BMP #### [address] [place] [id number] Administrative Court Justice: Vitaliy Mccall MD Eosinophils (Bld) [#/Vol] 0.04 10*3/uL Normal 0.00-0.44 [facility] Comment on above: Performed By: #### C DP, BMP #### [address] [place], [place] [id number] Administrative Court Justice: Vitaliy Mccall MD Eosinophils/100 WBC (Bld) 0 % Low 1-4 [facility] Comment on above: Performed By: #### C DP, BMP #### [address] [place], [place] [id number] Administrative Court Justice: Viatliy Mccall MD Erythrocyte distribution width (RBC) [Ratio] 12.4 % Normal 11.8-14.4 [facility] Comment on above: Performed By: #### C DP, BMP #### [address] [place], [place] [id number] Administrative Court Justice: Vitaliy Mccall MD Hematocrit (Bld) [Volume fraction] 39.2 % Normal 36.3-47.1 [facility] Comment on above: Performed By: #### C DP, BMP #### [address] [place], [facility] Justice: Vitaliy Mccall MD Hemoglobin (Bld) [Mass/Vol] 13.1 g/dL Normal 11.9-15.1 [facility] Comment on above: Performed By: #### C DP, BMP #### [address] [place], [place] [id number] Administrative Court Justice: Vitaliy Mccall MD Immature granulocytes/100 WBC (Bld) 0 % Normal 0 [facility] Comment on above: Performed By: #### C DP, BMP #### [address] [place], [place] [id number] Administrative Court Justice: Vitaliy Mccall MD Lymphocytes (Bld) [#/Vol] 0.83 10*3/uL Low 1.10-3.70 [facility] Comment on above: Performed By: #### C DP, BMP #### [address] [place], [facility] Justice: Vitaliy Mccall MD Lymphocytes/100 WBC (Bld) 8 % Low 24-43 [facility] Comment on above: Performed By: #### C DP, BMP #### [address] [place], [place] [id number] Administrative Court Justice: Vitaliy Mccall MD MCH (RBC) [Entitic mass] 29.6 pg Normal 25.2-33.5 [facility] Comment on above: Performed By: #### C DP, BMP #### [address] [place], [place] [id number] Administrative Court Justice: Vitaliy Mccall MD MCHC (RBC) [Mass/Vol] 33.4 g/dL Normal 28.4-34.8 [facility] Comment on above: Performed By: #### C DP, BMP #### [address] [place] [address] Justice: Vitaliy Mccall MD MCV (RBC) [Entitic vol] 88.7 fL Normal 82.6-102.9 [facility] Comment on above: Performed By: #### C DP, BMP #### [facility] [address] [place] [address] [address] [place], [place] [id number] Administrative Court Justice: Vitaliy Mccall MD Monocytes (Bld) [#/Vol] 0.77 10*3/uL Normal 0.10-1.20 [facility] Comment on above: Performed By: #### C DP, BMP #### [address] [place], [place] [id number] Administrative Court Justice: Vitaliy Mccall MD Monocytes/100 WBC (Bld) 7 % Normal 3-12 [facility] Comment on above: Performed By: #### C DP, BMP #### [address] [place], [place] [id number] Administrative Court Justice: Vitaliy Mccall MD Neutrophil (Seg) 85 % High 36-65 [facility] Comment on above: Performed By: #### C DP, BMP #### [address] [place], [place] [id number] Administrative Court Justice: Vitaliy Mccall MD NRBC Automated 0.0 per 100 WBC Normal 0.0 [facility] Comment on above: Performed By: #### C DP, BMP #### [address] [place], [facility] Justice: Vitaliy Mccall MD Platelet mean volume (Bld) [Entitic vol] 10.0 fL Normal 8.1-13.5 [facility] Comment on above: Performed By: #### C DP, BMP #### [address] [place] [address] Justice: Vitaliy Mccall MD Platelets (Bld) [#/Vol] 262 10*3/uL Normal 138-453 [facility] Comment on above: Performed By: #### C DP, BMP #### [facility] [address] [place] [address] [place] [place], [place] [id number] Administrative Court Justice: Vitaliy Mccall MD RBC (Bld) [#/Vol] 4.42 10*6/uL Normal 3.95-5.11 [facility] Comment on above: Performed By: #### C DP, BMP #### [facility] [address] [place] [address] Justice: Vitaliy Mccall MD WBC (Bld) [#/Vol] 10.4 10*3/uL Normal 3.5-11.3 [facility] Comment on above: Performed By: #### C DP, BMP #### [facility] [address] [place] [address]: Vitaliy Mccall MD COVID-19, Rapidon 09-28-2023 Interpretation and review of laboratory results Abnormal [facility] SARS-CoV-2 (COVID-19) RdRp gene GARO+probe Ql (Resp) Detected Abnormal Not Detected [facility] Comment on above: Rapid NAAT: The specimen [...] this assay. Fact sheet for Healthcare Providers: https://www.fda.gov/media/032291/download Fact sheet for Patients: https://www.fda.gov/media/726263/download Methodology: Isothermal Nucleic Acid Amplification Results reported to the appropriate Health Department Specimen Description .NASOPHARYNGEAL SWAB [facility] Flu A/B Ag Detectionon 09-28 Flu A Ag Detection Negative Normal NEG [facility] Comment on above: Result Comment: for Influenza A Antigen Performed By: #### H CG #### [facility] [address] [place] [address]: Vitaliy Mccall MD Flu B Ag Detection Negative Normal NEG [facility] Comment on above: Result Comment: for Influenza B Antigen. Performed By: #### H CG #### [facility] [address] [place] [address]: Vitaliy Mccall MD HCG Qualitative, Serumon HCG ( test) Ql Negative NEGATIVE [facility] Comment on above: Specimens with hCG l evels near the threshold of the test (25 mIU/mL) may give a negative or indeterminate result. In such cases, another test should be performed with a new specimen in 48-72 hours. If early is suspected clinically in this setting, correlation with quantitative serum b-hCG level is suggested. [facility] has confirmed the use of plasma for this test. This has not been cleared or approved by the U.S. Food and Drug Administration. The FDA has determined that such clearance is not necessary. [facility] HCG Screen, Bloodon 09-28-19 24 HCG Screen, Blood Negative Normal NEG [facility] Comment on above: Result Comment: Spec imens with hCG levels near the threshold of the test (25 mIU/mL) may give a negative or indeterminate result. In such cases, another test should be performed with a new specimen in 48-72 hours. If early is suspected clinically in this setting, correlation with quantitative serum b-hCG level is suggested. [facility] has confirmed the use of plasma for this test. This has not been cleared or approved by the U.S. Food and Drug Administration. The FDA has determined that such clearance is not necessary. Performed By: #### H CG #### [facility] [address] [place] [address] Justice: Vitaliy Mccall MD Portable XR Chest AP single viewon 09-28-2023 1. No acute cardiopulmonary disease. [facility] RIS CONSOLIDATED EXAMINATION: ONE XRAY VIEW OF THE CHEST 09/28/2023 11:41 am COMPARISON: 03/15/2023. HISTORY: ORDERING SYSTEM PROVIDED HISTORY: cough TECHNOLOGIST PROVIDED HISTORY: cough FINDINGS: The cardiac silhouette and mediastinal contours are normal. The lungs are clear. No pleural effusion or pneumothorax. There is an old left clavicular fracture. [facility] RIS Luis Falcon MD - 09/28/2023 EXAMINATION: ONE XRAY VIEW OF THE CHEST 09/28/2023 11:41 am COMPARISON: 03/15/2023. HISTORY: ORDERING SYSTEM PROVIDED HISTORY: cough TECHNOLOGIST PROVIDED HISTORY: cough FINDINGS: The cardiac silhouette and mediastinal contours are normal. The lungs are clear. No pleural effusion or pneumothorax. There is an old left clavicular fracture. IMPRESSION: 1. No acute cardiopulmonary disease. [facility] Radiology Study observation (narrative) [facility] Portable XR Chest AP single viewOrdered By: Luis Lizarraga on 09-28-2023 [facility] Work Phone: Rapid Strep Screenon 024 Specimen source Nom (Unsp spec) .THROAT SWAB [facility] Strep A, Molecular Negative NEGATIVE [facility] Rapid influenza A/B antigens on 09-28-2023 FLUAV Ag Ql (Unsp spec) Negative NEGATIVE [facility] Comment on above: for Influenza A Anti gen FLUBV Ag Ql (Unsp spec) Negative NEGATIVE [facility] Comment on above: for Influenza B Anti gen. [facility] [id number] 09-28-2023 SARS-CoV-2 (COVID-19) RNA GARO+probe Ql (Unsp spec) Detected Abnormal [facility] Comment on above: Result Comment: Rapid [...] this assay. Fact sheet for Healthcare Providers: https://www.fda.gov/media/754573/download Fact sheet for Patients: https://www.fda.gov/media/961405/download Methodology: Isothermal Nucleic Acid Amplification Results reported to the appropriate Health Department Performed By: #### C OVRB #### [facility] [address] [place] [id number] Administrative Court Justice: Vitaliy Mccall MD Strep Group A, Rapidon 09-28 Strep A, Molecular Negative Normal NEG [facility] Comment on above: Performed By: #### R SAB #### [facility] [address] [place] [address] Justice: Vitaliy Mccall MD Source .THROAT SWAB Normal [facility] Comment on above: Performed By: #### R SAB #### [facility] [address] [place] [address] Justice: Vitaliy Mccall MD XR CHEST PORTABLEon 09-28-19 [...] Luis Lizarraga MD 09/28/23 Final result Normal [facility] Medication Consenton 024 Medication Consent [id number] #1.00TIFF Normal [facility] Ambulatory Visit Summaryon 0 09-25-2023 Ambulatory Visit Summary KIZZY JALLOH :1985 Visit Date:09/25/2023 Ambulatory Visit Instructions Your Diagnosis Angiolipoma of right kidney Flank pain Non-smoker BMI 32.0-32.9,adult Your Care Team Attending Physician - Lidia Jones Primary Care Physician - Lidia Jones This Is Your Medications List esomeprazole (Nexium 20 mg Kyle-) naproxen (naproxen 500 mg Tab) ropinirole (ropinirole [...] 10:00 AM EST With: Lidia Jones Where: [facility] [place] Normal [facility] Office/Clini c Noteon 09-25-2023 Family Medicine [...] Daily, # 30 tab(s), Refills(s) 0, Pharmacy: [facility] [id number], 161.6, cm, 09/25/23 11:43:00 EST, Height/Length Dosing, 90.7, kg, 09/25/23 11:43:00 EST, Weight Dosing 2. Flank pain (R10.9: Unspecified abdominal pain) see above Ordered: phentermine, 37.5 mg = 1 tab(s), Oral, Daily, # 30 tab(s), Refills(s) 0, Pharmacy: [facility] [id number], 161.6, cm, 09/25/23 11:43:00 EST, Height/Length Dosing, 90.7, kg, 09/25/23 11:43:00 EST, Weight Dosing 3. Non-smoker (Z78.9: Other specified health status) continue not smoking Ordered: phentermine, 37.5 mg = 1 tab(s), Oral, Daily, # 30 tab(s), Refills(s) 0, Pharmacy: [facility] [id number], 161.6, cm, 09/25/23 11:43:00 EST, Height/Length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 [facility] Justice: Vitaliy Mccall MD Platelet mean volume (Bld) [Entitic vol] 10.5 fL Normal 8.1-13.5 [facility] Comment on above: Performed By: #### C DP, BMP #### [address] [place], [place] [address] [address] Justice: Vitaliy Mccall MD Platelets (Bld) [#/Vol] 374 10*3/uL Normal 138-453 [facility] Comment on above: Performed By: #### C DP, BMP #### [address] [place], [facility] Justice: Vitaliy Mccall MD RBC (Bld) [#/Vol] 4.46 10*6/uL Normal 3.95-5.11 [facility] Comment on above: Performed By: #### C DP, BMP #### [address] [place], [place] [address]83 Administrative Court Justice: Vitaliy Mccall MD WBC (Bld) [#/Vol] 15.6 10*3/uL High 3.5-11.3 [facility] Comment on above: Performed By: #### C DP, [facility] #### [facility] [address] [place] [address] [address] Justice: Vitaliy Mccall MD CT LUMBAR SPINE WO [...] Gm Uribe MD 03/15/23 Final result Normal [facility] HCG Screen, Bloodon 03-15-20 HCG Screen, Blood Negative Normal [facility]G [facility] Comment on above: Result Comment: Spec imens with hCG levels near the threshold of the test (25 mIU/mL) may give a negative or indeterminate result. In such cases, another test should be performed with a new specimen in 48-72 hours. If early is suspected clinically in this setting, correlation with quantitative serum b-hCG level is suggested. [facility] has confirmed the use of plasma for this test. This has not been cleared or approved by the U.S. Food and Drug Administration. The FDA has determined that such clearance is not necessary. Performed By: #### H CG #### [address] [place] [address] Justice: Vitaliy Mccall MD Magnesiumon 03-15-2023 Magnesium [Mass/Vol] 1.8 mg/dL Normal 1.6-2.6 [facility] Comment on above: Performed By: #### M G #### [address] [place], [place] [id number] Administrative Court Justice: Vitaliy Mccall MD Troponinon 03-15-2023 Troponin, High Sens 6 ng/L Normal 0-14 [facility] Comment on above: Result Comment: High Sensitivity Troponin values cannot be compared with other Troponin methodologies. Performed By: #### T ROPI #### [address] [place], [place] [id number] Administrative Court Justice: Vitaliy Mccall MD Troponin, High Sens 6 ng/L Normal 0-14 [facility] Comment on above: Result Comment: High Sensitivity Troponin values cannot be compared with other Troponin methodologies. Performed By: #### C DP, BMP #### [address] [place], [place] [id number] Administrative Court Justice: Vitaliy Mccall MD US PELVIS COMPLETEon 023 [...] Gm Uribe MD 03/15/23 Final result Normal [facility] XR CHEST PORTABLEon 03-15-20 XR CHEST PORTABLE EXAMINATION: ONE XRAY VIEW OF THE CHEST 03/15/2023 7:40 am COMPARISON: 01/22/2023 HISTORY: ORDERING SYSTEM PROVIDED HISTORY: TECHNOLOGIST PROVIDED HISTORY: cp 38-year-old female with chest pain FINDINGS: classroom monitor leads overlie the chest. Trachea midline. No pneumothorax. No acute focal airspace consolidation or pleural effusions. Cardiac and mediastinal contours unchanged and within normal limits. No acute osseous abnormality. Remote healed fracture deformity of the mid left clavicle, stable. IMPRESSION: No acute focal airspace consolidation. Interpreted by: Gm Uribe MD Signed by: Gm Uribe MD 03/15/23 Final result Normal [facility] Basic Metabolic Profon 01-22 Anion gap [Moles/Vol] 10 mmol/L Normal 9-17 [facility] Comment on above: Performed By: #### C DP, BMP #### [facility] [address] [place] [address] Justice: Vitaliy Mccall MD BUN/CRE Ratio 29 High 9-20 [facility] Comment on above: Performed By: #### C DP, BMP #### [facility] [address] [place], [place] [id number] Administrative Court Justice: Vitaliy Mccall MD Calcium [Mass/Vol] 9.7 mg/dL Normal 8.6-10.4 [facility] Comment on above: Performed By: #### C DP, BMP #### [facility] [address] [place] [address] Justice: Vitaliy Mccall MD Chloride [Moles/Vol] 101 mmol/L Normal 98-107 [facility] Comment on above: Performed By: #### C DP, BMP #### [facility] [address] [place] [address] Justice: Vitaliy Mccall MD CO2 [Moles/Vol] 25 mmol/L Normal 20-31 [facility] Comment on above: Performed By: #### C DP, BMP #### [facility] [address] [place], [place] [address]83 Administrative Court Justice: Vitaliy Mccall MD Creatinine [Mass/Vol] 0.75 mg/dL Normal 0.50-0.90 [facility] Comment on above: Performed By: #### C DP, BMP #### [facility] [address] [place] [address] Justice: Vitaliy Mccall MD GFR/1.73 sq M.predicted among non-blacks MDRD (S/P/Bld) [Vol rate/Area] mL/min/{1.73_m2} Normal >60 [facility] Comment on above: Result Comment: These results [...] Performed By: #### C DP, BMP #### [facility] [address] [place], [place] [address] Administrative Court Justice: Vitaliy Mccall MD Glucose [Mass/Vol] 118 mg/dL High 70-99 [facility] Comment on above: Performed By: #### C DP, BMP #### [address] [place] [address] Justice: Vitaliy Mccall MD Potassium [Moles/Vol] 3.8 mmol/L Normal 3.7-5.3 [facility] Comment on above: Performed By: #### C DP, BMP #### [facility] [address] [place] [address] [place] [address] Justice: Vitaliy Mccall MD Sodium [Moles/Vol] 136 mmol/L Normal 135-144 [facility] Comment on above: Performed By: #### C DP, BMP #### [address] [place] [address] Justice: Vitaliy Mccall MD Urea nitrogen [Mass/Vol] 22 mg/dL High 6-20 [facility] Comment on above: Performed By: #### C DP, BMP #### [facility] [address] [place] [address] Justice: Vitaliy Mccall MD CBC with Diffon 01-22-2023 Abs. Basophil 0.07 k/uL Normal 0.00-0.20 [facility] Comment on above: Performed By: #### C DP, BMP #### [facility] [address] [place] [address] Dr[place], [place] [id number] Administrative Court Justice: Vitaliy Mccall MD Abs. Eosinophil <0.03 Normal 0.00-0.44 [facility] Comment on above: Performed By: #### C DP, BMP #### [facility] [address] [place] [address] Justice: Vitaliy Mccall MD Abs.Imm.Granulocyte 0.10 k/uL Normal 0.00-0.30 [facility] Comment on above: Performed By: #### C DP, BMP #### [facility] [address] [place], [place] [address] [address] Justice: Vitaliy Mccall MD Abs.Neutrophil (Seg) 16.46 k/uL High 1.50-8.10 [facility] Comment on above: Performed By: #### C DP, BMP #### [address] [place], [facility] Justice: Vitaliy Mccall MD Basophils/100 WBC (Bld) 0 % Normal 0-2 [facility] Comment on above: Performed By: #### C DP, BMP #### [address] [place], [place] [address] [address] Justice: Vitaliy Mccall MD Eosinophils/100 WBC (Bld) 0 % Low 1-4 [facility] Comment on above: Performed By: #### C DP, BMP #### [facility] [address] [place] [address] Dr. [place], [facility] Justice: Vitaliy Mccall MD Erythrocyte distribution width (RBC) [Ratio] 12.5 % Normal 11.8-14.4 [facility] Comment on above: Performed By: #### C DP, BMP #### [address] [place], [facility] Justice: Vitaliy Mccall MD Hematocrit (Bld) [Volume fraction] 39.0 % Normal 36.3-47.1 [facility] Comment on above: Performed By: #### C DP, BMP #### [facility] [address] [place], [place] [id number] Administrative Court Justice: Vitaliy Mccall MD Hemoglobin (Bld) [Mass/Vol] 13.0 g/dL Normal 11.9-15.1 [facility] Comment on above: Performed By: #### C DP, BMP #### [facility] [address] [place], [facility] Justice: Vitaliy Mccall MD Immature granulocytes/100 WBC (Bld) 1 % High 0 [facility] Comment on above: Performed By: #### C DP, BMP #### [address] [place], [facility] Justice: Vitaliy cMcall MD Lymphocytes (Bld) [#/Vol] 1.03 10*3/uL Low 1.10-3.70 [facility] Comment on above: Performed By: #### C DP, BMP #### [address] [place], [facility] Justice: Vitaliy Mccall MD Lymphocytes/100 WBC (Bld) 6 % Low 24-43 [facility] Comment on above: Performed By: #### C DP, BMP #### [address] [place], [facility] Justice: Vitaliy Mccall MD MCH (RBC) [Entitic mass] 29.2 pg Normal 25.2-33.5 [facility] Comment on above: Performed By: #### C DP, BMP #### [address] [place] [address] Justice: Vitaliy Mccall MD MCHC (RBC) [Mass/Vol] 33.3 g/dL Normal 28.4-34.8 [facility] Comment on above: Performed By: #### C DP, BMP #### [address] [place] [address] Justice: Vitaliy Mccall MD MCV (RBC) [Entitic vol] 87.6 fL Normal 82.6-102.9 [facility] Comment on above: Performed By: #### C DP, BMP #### [address] [place], [place] 5937383 Administrative Court Justice: Vitaliy Mccall MD Monocytes (Bld) [#/Vol] 1.03 10*3/uL Normal 0.10-1.20 [facility] Comment on above: Performed By: #### C DP, BMP #### [address] [place], [place] 8138183 Administrative Court Justice: Vitaliy Mccall MD Monocytes/100 WBC (Bld) 6 % Normal 3-12 [facility] Comment on above: Performed By: #### C DP, BMP #### [address] [place], [place] 0376883 Administrative Court Justice: Vitaliy Mccall MD Neutrophil (Seg) 87 % High 36-65 [facility] Comment on above: Performed By: #### C DP, BMP #### [address] [place], [place] 275[address]183 Administrative Court Justice: Vitaliy Mccall MD NRBC Automated 0.0 per 100 WBC Normal 0.0 [facility] Comment on above: Performed By: #### C DP, BMP #### [address] [place], [place] 485[address]83 Administrative Court Justice: Vitaliy Mccall MD Platelet mean volume (Bld) [Entitic vol] 10.2 fL Normal 8.1-13.5 [facility] Comment on above: Performed By: #### C DP, BMP #### [address] [place], [place] 49[address]83 Administrative Court Justice: Vitaliy Mccall MD Platelets (Bld) [#/Vol] 292 10*3/uL Normal 138-453 [facility] Comment on above: Performed By: #### C DP, BMP #### [facility] [address] [place], [place] [address] Administrative Court Justice: Vitaliy Mccall MD RBC (Bld) [#/Vol] 4.45 10*6/uL Normal 3.95-5.11 [facility] Comment on above: Performed By: #### C DP, BMP #### [facility] [address] [place], [place] [id number] Administrative Court Justice: Vitaliy Mccall MD WBC (Bld) [#/Vol] 18.7 10*3/uL High 3.5-11.3 [facility] Comment on above: Performed By: #### C DP, BMP #### [address] [place], [place] [id number] Administrative Court Justice: Vitaliy Mccall MD Flu A/B Ag Detectionon 01-22 Flu A Ag Detection Negative Normal NEG [facility] Comment on above: Result Comment: for Influenza A Antigen Performed By: #### F LUABA #### [address] [place], [place] [id number] Administrative Court Justice: Vitaliy Mccall MD Flu B Ag Detection Negative Normal NEG [facility] Comment on above: Result Comment: for Influenza B Antigen. Performed By: #### F LUABA #### [address] [place], [place] [id number] Administrative Court Justice: Vitaliy Mccall MD HCG Screen, Bloodon 01-23-20 HCG Screen, Blood Negative Normal NEG [facility] Comment on above: Result Comment: Spec imens with hCG levels near the threshold of the test (25 mIU/mL) may give a negative or indeterminate result. In such cases, another test should be performed with a new specimen in 48-72 hours. If early is suspected clinically in this setting, correlation with quantitative serum b-hCG level is suggested. [facility] has confirmed the use of plasma for this test. This has not been cleared or approved by the U.S. Food and Drug Administration. The FDA has determined that such clearance is not necessary. Performed By: #### C GABRIEL, CONI #### [facility] [address] [place] [address] Justice: Vitaliy Mccall MD Magnesiumon 01-22-2023 Magnesium [Mass/Vol] 2.0 mg/dL Normal 1.6-2.6 [facility] Comment on above: Performed By: #### C GABRIEL, BMP #### [facility] [address] [place] [address] Justice: Vitaliy Mccall MD [id number] 01-22-2023 SARS-CoV-2 (COVID-19) RNA GARO+probe Ql (Unsp spec) Not detected Normal NOTDET [facility] Comment on above: Result Comment: Rapid NAAT: [...] management decisions. Fact sheet for Healthcare Providers: https://www.fda.gov/media/996918/download Fact sheet for Patients: https://www.fda.gov/media/781705/download Methodology: Isothermal Nucleic Acid Amplification Performed By: #### C GABRIEL, BMP #### [facility] [address] [place] [address] Justice: Vitaliy Mccall MD Strep Gr A Direct Agon 01-22 Strep Gr A Direct Ag Positive Abnormal NEG [facility] Comment on above: Result Comment: for Group A Streptococci Performed By: #### H CG #### [facility] [address] [place], [place] [id number] Administrative Court Justice: Vitaliy Mccall MD Source .THROAT SWAB Normal [facility] Comment on above: Performed By: #### H CG #### [facility] [address] [place], [place] [id number] Administrative Court Justice: Vitaliy Mccall MD Troponinon 01-22-2023 Troponin, High Sens 6 ng/L Normal 0-14 [facility] Comment on above: Result Comment: High Sensitivity Troponin values cannot be compared with other Troponin methodologies. Performed By: #### C DP, BMP #### [facility] [address] [place], [place] [id number] Administrative Court Justice: Vitaliy Mccall MD Urinalysis, Routineon 0 Bilirubin, SemiQt,Ur Negative Normal NEG [facility] Comment on above: Performed By: #### U A, UMICAO #### [facility] [address] [place], [place] [id number] Administrative Court Justice: Vitaliy Mccall MD Blood, Urine TRACE Abnormal NEG [facility] Comment on above: Performed By: #### U A, UMICAO #### [facility] [address] [place], [place] [id number] Administrative Court Justice: Vitaliy Mccall MD Clarity (U) Clear Normal CLEAR [facility] Comment on above: Performed By: #### U A, UMICAO #### [facility] [address] [place], [place] [id number] Administrative Court Justice: Vitaliy Mccall MD Color (U) Yellow Normal YEL [facility] Comment on above: Performed By: #### U A, UMICAO #### [facility] [address] [place], [place] [id number] Administrative Court Justice: Vitaliy Mccall MD Glucose Ql (U) Negative Normal NEG [facility] Comment on above: Performed By: #### U A, UMICAO #### [facility] [address] [place] [address] [place] [address] Justice: Vitaliy Mccall MD Ketones Ql (U) Negative Normal NEG [facility] in Hospital Comment on above: Performed By: #### U A, UMICAO #### [facility] [address] [place] [address] [place] [address] Justice: Vitaliy Mccall MD Leukocyte esterase Test strip Ql (U) Negative Normal NEG [facility] Comment on above: Performed By: #### U A, UMICAO #### [address] [place] [address] Justice: Vitaliy Mccall MD Nitrite,Ur Negative Normal [facility] Comment on above: Performed By: #### U A, UMICAO #### [facility] [address] [place] [address] [place] [address] Justice: Vitaliy Mccall MD PH,Ur 6.5 Normal 5.0-9.0 [facility] Comment on above: Performed By: #### U A, UMICAO #### [address] [place] [address] Justice: Vitaliy Mccall MD Protein Ql (U) Negative Normal NEG [facility] Comment on above: Performed By: #### U A, UMICAO #### [facility] [address] [place] [address] [place] [address] Justice: Vitaliy Mccall MD Spec. [place],Ur <1.005 Low 1.010-1.020 [facility] Comment on above: Performed By: #### U A, UMICAO #### [facility] [address] [place] [address] Dr. [place], [place] [id number] Administrative Court Justice: Vitaliy Mccall MD Urobilinogen,Ur Normal Normal NORM [facility] Comment on above: Performed By: #### U A, UMICAO #### [facility] [address] [place] [address] Justice: Vitaliy Mccall MD Urinalysis,Microon 3 Bacteria 1+ Abnormal NONE [facility] Comment on above: Performed By: #### U A, UMICAO #### [facility] [address] [place], [place] [id number] Administrative Court Justice: Vitaliy Mccall MD Epithelial cells LM Ql (Urine sed) 2 TO 5 Normal 0-25 [facility] Comment on above: Performed By: #### U A, UMICAO #### [facility] [address] [place], [place] [id number] Administrative Court Justice: Vitaliy Mccall MD Urine RBC's 2 TO 5 Normal 0-2 [facility] Comment on above: Performed By: #### U A, UMICAO #### [facility] [address] [place], [place] [phone] Administrative Court Justice: Vitaliy Mccall MD Urine WBC's None Normal 0-5 [facility] Comment on above: Performed By: #### U A, UMICAO #### [facility] [address] [place], [place] [phone] Administrative Court Justice: Vitaliy Mccall MD XR CHEST PORTABLEon 01-23-20 23 XR CHEST PORTABLE EXAMINATION: ONE XRAY [...] Zia Beck MD 01/22/23 Final result Normal [facility] COVID-19, Rapidon 11-06-2022 Interpretation and review of laboratory results Abnormal [facility] SARS-CoV-2 (COVID-19) RdRp gene GARO+probe Ql (Resp) Detected Abnormal Not Detected [facility] Comment on above: Rapid NAAT: The specimen [...] this assay. Fact sheet for Healthcare Providers: https://www.fda.gov/media/467687/download Fact sheet for Patients: https://www.fda.gov/media/787607/download Methodology: Isothermal Nucleic Acid Amplification Results reported to the appropriate Health Department Specimen Description .NASOPHARYNGEAL SWAB [facility] Rapid influenza A/B antigens on 11-06-2022 FLUAV Ag Ql (Unsp spec) Negative NEGATIVE B ON [facility] Comment on above: for Influenza A Anti gen FLUBV Ag Ql (Unsp spec) Negative NEGATIVE B ON [facility] Comment on above: for Influenza B Anti gen. [facility] Otolaryngology Office/Clinic Noteon 09-13-2022 Otolaryngology Office/Clinic [...] Electronically signed by Bruno Dewey MD, Chi 09/13/22 11:49 EST Normal [facility] Manny 08-17-2022 ALT [Catalytic activity/Vol] 19 U/L 5 - 33 U/L [facility] Veronica 08-17-2022 AST [Catalytic activity/Vol] 16 U/L NINF - 32 U/L [facility] Basic Metabolic Panelon - Anion gap [Moles/Vol] 7 mmol/L Low 9 - 17 mmol/L [facility] Calcium [Mass/Vol] 10.0 mg/dL 8.6 - 10. 4 mg/dL [facility] Chloride [Moles/Vol] 103 mmol/L 98 - 10 7 mmol/L [facility] CO2 [Moles/Vol] 28 mmol/L 20 - 31 mmol/L [facility] Creatinine [Mass/Vol] 0.78 mg/dL 0.50 - 0.90 mg/dL [facility] GFR/1.73 sq M.predicted MDRD (S/P/Bld) [Vol rate/Area] - PINF [facility] Comment on above: Effective Jun 12, 2022 [...] [Mass/Vol] 89 mg/dL 70 - 99 mg/dL [facility] Interpretation and review of laboratory results Abnormal [facility] Potassium [Moles/Vol] 4.2 mmol/L 3.7 - 5.3 mmol/L [facility] Sodium [Moles/Vol] 138 mmol/L 135 - 144 mmol/L [facility] Urea nitrogen (BldV) [Mass/Vol] 20 mg/dL 6 - 20 mg/dL [facility] Urea nitrogen/Creatinine (Bld) [Mass ratio] 26 High 9 - 20 [facility] CBC with Auto Differentialon 08-17-2022 Absolute Eos # 0.20 [facility] Absolute Immature Granulocyte [facility] Absolute Lymph # 2.57 [facility] Absolute Elbert # 0.57 [facility] Basophils (Bld) [#/Vol] 0.04 10*3/uL [facility] Basophils/100 WBC (Bld) 0 % 0 - 2 % B [facility] Eosinophils/100 WBC (Bld) 2 % 1 - 4 % [facility] Hematocrit (Bld) [Volume fraction] 37.5 % 36.3 - 47.1 % [facility] Hemoglobin (Bld) [Mass/Vol] 12.7 g/dL 11.9 - 15.1 g/dL [facility] Immature granulocytes/100 WBC (Bld) 0 % 0 [facility] Lymphocytes/100 WBC (Bld) 28 % 24 - 43 % [facility] MCH (RBC) [Entitic mass] 29.5 pg 25.2 - 33.5 pg [facility] MCHC (RBC) [Mass/Vol] 33.9 g/dL 28.4 - 34.8 g/dL [facility] MCV (RBC) [Entitic vol] 87.2 fL 82.6 - 102.9 fL [facility] Monocytes/100 WBC (Bld) 6 % 3 - 12 % B ON [facility] NRBC Automated 0.0 0.0 per 100 WBC [facility] Platelet distribution width (Bld) [Ratio] 12.5 % 11.8 - 14.4 % [facility] Platelet mean volume (Bld) [Entitic vol] 9.6 fL 8.1 - 13.5 fL [facility] Platelets (Bld) [#/Vol] 350 10*3/uL [facility] RBC (Bld) [#/Vol] 4.30 10*6/uL 3.95 - 5.1 1 m/uL [facility] Segmented neutrophils/100 WBC (Bld) 64 % 36 - 65 % [facility] Segs Absolute 5.72 [facility] WBC (Bld) [#/Vol] 9.1 10*3/uL [facility] Hemoglobin A1Con 08-17-2022 Glucose [Mass/Vol] 126 mg/dL [facility] Comment on above: The ADA and AACC rec ommend providing the estimated average glucose result to permit better patient understanding of their HBA1c result. HbA1c (Bld) [Mass fraction] 6.0 % 4.0 - 6.0 % [facility] LDL Cholesterol, Directon Cholesterol in LDL [Mass/Vol] 126 mg/dL High NINF - 100 mg/dL [facility] Interpretation and review of laboratory results Abnormal [facility] Lipid Panelon 08-17-2022 Cholesterol [Mass/Vol] 245 mg/dL High NINF - 200 mg/dL [facility] Comment on above: Cholesterol Guidelines: <200 Desirable 200-240 Borderline >240 Undesirable Cholesterol in HDL [Mass/Vol] 32 mg/dL Low 40 - PINF mg/dL [facility] Comment on above: HDL Guidelines: <40 Undesirable 40-59 Borderline >59 Desirable Cholesterol.total/Lexi sterol in HDL [Mass ratio] 7.7 {ratio} High NINF - 5 [facility] Interpretation and review of laboratory results Abnormal [facility] LDL Cholesterol 0 - 130 mg/dL [facility] Comment on above: Calculation not nicole d for Triglyceride value greater than 400 mg/dL. Direct LDL reflexed LDL Guidelines: <100 Desirable 100-129 Near to/above Desirable 130-159 Borderline >159 Undesirable Direct (measured) LDL and calculated LDL are not interchangeable tests. Triglyceride [Mass/Vol] 784 mg/dL High NINF - 150 mg/dL [facility] Comment on above: Triglyceride Guidelines: <150 Desirable 150-199 Borderline 200-499 High >499 Very high Based on AHA Guidelines for fasting triglyceride, June 2012. [facility] Microalbumin, Uron 2 Albumin/Creatinine DL <= 20 mg/L (24H U) [Mass ratio] mg/L [facility] - 21 mg/L [facility] Albumin/Creatinine DL <= 20 mg/L (U) [Ratio] Can not be calculated [facility] Creatinine [Mass/Vol] 76.3 mg/dL 28.0 - 217.0 mg/dL [facility] No Panel Informationon 08-17 [facility] Otolaryngology Office/Clinic Noteon 08-09-2022 Otolaryngology Office/Clinic Note [...] caps, Oral, (more content not included)... 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 Her initial set was leaking. When she was seen on 07/12/22 to discuss the remake, she had an active ear infection and a new earmold impression was not able to be taken for the remake. [employer] was informed where to build up the [...] by Yulia Hi 07/21/22 09:32 EST Normal [facility] Audiology Office/Clinic Note on 07-12-2022 Audiology [...] swim plug will be sent to the is/it project manager. Due to the current ear infection and inability to make a new impression, the is/it project manager has agreed to extend the remake warranty. Kizzy will be called once the new swim mold is in for dispense and to check fit. n/c Electronically signed by Yulia Hi 07/12/22 13:23 EDT Normal [facility] US PELVIS AND TRANSVAGon US PELVIS AND [...] CINDY PINK Date: 2022-07-06 17:16 Normal [facility] Otolaryngology Office/Clinic Noteon 07-04-2022 Otolaryngology Office/Clinic [...] if further surgical intervention is warranted. Ordered: [id number] Air bone pure tone audiometry POC CT IAC w/o Contrast Tympanometry POC Orders: predniSONE, 3 tabs, Oral, Daily, then 2 qam for 4 days then 1 qam for 3 days, X 3 days, # 20 tabs, 0 Refill(s), 07/07/22 10:51:00 EDT, Pharmacy: [facility] [id number] 2. Perforated right tympanic membrane on examination [...] LIGATION section (more content not included)... Normal [facility] Otolaryngology Office/Clinic Note Chief Complaint Chief Complaint 'I am in for recurrent ear infections.' Physical Exam Vitals & Measurements T: 36.6 ?C (Temporal Artery) HT: 163 cm WT: 87.4 kg WT: 87.4 kg (Dosing) BMI: 32.9 Additional Vitals No qualifying data available. Assessment/Plan 1. Otorrhea of right ear Ordered: [id number] Air bone pure tone audiometry POC Tympanometry [...] Smokeless tobacco use:. Missy Sims PA-C Normal [facility] Comment on above: Order Comment: jaspreet gale C-Reactive Proteinon 022 CRP [Mass/Vol] 3.1 mg/L 0 - 5 mg/L [facility] [employer] [place] [facility] Rheumatoid Factoron 06-21-20 22 Rheumatoid Factor <10 NINF [facility] [employer] [facility] Sedimentation Rateon 022 Sed Rate 9 [facility] [facility] PAP ACOG PANEL 2: 30 to 65on 04-04-2022 . . Normal [facility] Comment on above: Result Comment: Perf ormed at: WB Performed By: #### [id number] #### [facility] [address] [place] [address] Dr. Cesar Tolbert Age Gdln ACOG Testing 30-65 [facility] Comment on above: Performed By: #### [id number] #### [facility] [address] [place] [address] Dr. Cesar Tolbert DIAGNOSIS: Comment [facility] Comment on above: Result Comment: NEGA TIVE FOR INTRAEPITHELIAL LESION OR MALIGNANCY. THIS SPECIMEN WAS RESCREENED PART OF OUR PROP CUTTER PROGRAM. Performed at: WB Performed By: #### [id number] #### [facility] [address] [place] [address] Dr. Cesar Tolbert HPV Aptima Positive Abnormal Negative [facility] Comment on above: Result Comment: This nucleic acid amplification test detects fourteen high-risk HPV types (16,18,31,33,35,39,45,51,52,56,58,59,66,68) without differentiation. Performed at: =G Performed By: #### [id number] #### [facility] [address] [place] [address] Dr. Cesar Tolbert HPV Genotype 16 Negative Normal Negative [facility] Comment on above: Result Comment: Perf ormed at: =G Performed By: #### [id number] #### [facility] [address] [place] [address] Dr. Cesar Tolbert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 fracture. No suspicious focal bony lesions. [facility] [place] [place] Toño, pn Incoming Radiant Results From [facility] [facility] - 02/26/2020 12:46 PM EDT EXAMINATION: MRI [...] of the knee. Trace knee joint effusion. [place], [place] XR KNEE LEFT (3 VIEWS)on Small joint effusion [place], [place] EXAMINATION: THREE XRAY VIEWS OF THE LEFT KNEE 01/29/2020 9:08 pm COMPARISON: None. HISTORY: ORDERING SYSTEM PROVIDED HISTORY: Knee injury TECHNOLOGIST PROVIDED HISTORY: Knee injury FINDINGS: No fracture. No dislocation. No erosion. Small joint effusion. [place], [place] Toño, Mhpn Incoming Radiant Results From [facility] [employer] [facility] - 01/29/2020 9:17 PM EDT EXAMINATION: THREE XRAY VIEWS OF THE LEFT KNEE 01/29/2020 9:08 pm COMPARISON: None. HISTORY: ORDERING SYSTEM PROVIDED HISTORY: Knee injury TECHNOLOGIST PROVIDED HISTORY: Knee injury FINDINGS: No fracture. No dislocation. No erosion. Small joint effusion. IMPRESSION: Small joint effusion [place], [place] AmylaseOrdered By: Jonathan newman on 09-16-2019 Amylase [Catalytic activity/Vol] 46 U/L 28 - 100 U/L [employer] Work Phone: CBC Auto DifferentialOrdered By: Jonathan Monte on 09-16-2019 Absolute Eos # 0.07 [facility] Work Phone: Absolute Immature Granulocyte <0.03 [facility] Work Phone: Absolute Lymph # 1.03 Low [facility] Work Phone: Absolute Elbert # 0.65 [facility] Work Phone: Basophils (Bld) [#/Vol] 0.03 10*3/uL [employer] Phone: Basophils/100 WBC (Bld) 1 % 0 - 2 % M [employer] Phone: Differential Type NOT REPORTED [employer] Phone: Eosinophils/100 WBC (Bld) 1 % 1 - 4 % [employer] Phone: Erythrocyte distribution width (RBC) [Ratio] 13.2 % 11.8 - 14.4 % [employer] Phone: Hematocrit (Bld) [Volume fraction] 35.6 % Low 36.3 - 47.1 % [employer] Phone: Hemoglobin (Bld) [Mass/Vol] 12.1 g/dL 11.9 - 15.1 g/dL [employer] Phone: Immature granulocytes/100 WBC (Bld) 0 % 0 [employer] Phone: Interpretation and review of laboratory results Abnormal [employer] Phone: Lymphocytes/100 WBC (Bld) 18 % Low 24 - 43 % [employer] Phone: MCH (RBC) [Entitic mass] 30.0 pg 25.2 - 33.5 pg [employer] Phone: MCHC (RBC) [Mass/Vol] 34.0 g/dL 28.4 - 34.8 g/dL [employer] Phone: MCV (RBC) [Entitic vol] 88.3 fL 82.6 - 102.9 fL [employer] Phone: Monocytes/100 WBC (Bld) 11 % 3 - 12 % M [employer] Phone: NRBC Automated 0.0 0.0 per 100 WBC [employer] Phone: Platelet Estimate NOT REPORTED [employer] Phone: Platelet mean volume (Bld) [Entitic vol] 10.2 fL 8.1 - 13.5 fL [employer] Work Phone: Platelets (Bld) [#/Vol] 256 10*3/uL [employer] Work Phone: RBC (Bld) [#/Vol] 4.03 10*6/uL 3.95 - 5.1 1 m/uL [employer] Work Phone: RBC morphology finding Nom (Bld) NOT REPORTED [employer] Work Phone: Segmented neutrophils/100 WBC (Bld) 69 % High 36 - 65 % [employer] Work Phone: Segs Absolute 3.93 [employer] Work Phone: WBC (Bld) [#/Vol] 5.7 10*3/uL [employer] Work Phone: WBC Morphology NOT REPORTED [employer] Work Phone: Comprehensive Metabolic Pane lOrdered By: Jonathan Monte on 09-16-2019 Albumin [Mass/Vol] 4.3 g/dL 3.5 - 5.2 g/dL [employer] Phone: Albumin/Globulin [Mass ratio] 1.4 {ratio} [employer] Phone: ALP [Catalytic activity/Vol] 103 U/L 35 - 104 U/L [employer] Work Phone: ALT [Catalytic activity/Vol] 34 U/L High 5 - 33 U/L [employer] Phone: Anion gap [Moles/Vol] 15 mmol/L 9 - 17 mmol/L [employer] Work Phone: AST [Catalytic activity/Vol] 43 U/L High <32 [employer] Work Phone: Bilirubin [Mass/Vol] 0.28 mg/dL Low 0.3 - 1 .2 mg/dL [employer] Phone: Bun/Cre Ratio 18 [employer] Work Phone: Calcium [Mass/Vol] 9.4 mg/dL 8.6 - 10. 4 mg/dL [employer] Phone: Chloride [Moles/Vol] 97 mmol/L Low 98 - 10 7 mmol/L [employer] Phone: CO2 [Moles/Vol] 24 mmol/L 20 - 31 mmol/L [employer] Phone: Creatinine [Mass/Vol] 0.78 mg/dL 0.5 - 0.9 mg/dL [employer] Phone: GFR >60 >60 mL/min [employer] Phone: GFR Comment [employer] Phone: Comment on above: Average GFR for 30-3 9 years old: 107 mL/min/1.73sq m Chronic Kidney Disease: <60 mL/min/1.73sq m Kidney failure: <15 mL/min/1.73sq m eGFR calculated using average adult body mass. Additional eGFR calculator available at: http://www.Kirondo/multiple_crcl_2012.htm GFR Non- >60 >60 mL/min [employer] Phone: GFR Staging [employer] Phone: Comment on above: Stage 1: Some kidney damage normal GFR Stage 2: Mild kidney damage GFR 60-89 Stage 3: Moderate kidney damage GFR 30-59 Stage 4: Severe kidney damage GFR 15-29 Stage 5: Severe kidney damage GFR <15 ESRD - chronic treatment by dialysis or transplant Glucose [Mass/Vol] 104 mg/dL High 70 - 99 mg/dL [employer] Phone: Interpretation and review of laboratory results Abnormal [employer] Phone: Potassium [Moles/Vol] 3.8 mmol/L 3.7 - 5.3 mmol/L [employer] Phone: Protein [Mass/Vol] 7.3 g/dL 6.4 - 8.3 g/dL [employer] Phone: Sodium [Moles/Vol] 136 mmol/L 135 - 144 mmol/L [employer] Phone: Urea nitrogen [Mass/Vol] 14 mg/dL 6 - 20 mg/dL [employer] Phone: LipaseOrdered By: Jonathan gooden on 09-16-2019 Lipase [Catalytic activity/Vol] 32 U/L 13 - 60 U/L [employer] Phone: Rapid influenza A/B antigens Ordered By: Jonathan Monte on 09-16-2019 Direct Exam Presumptive negative for the presence of Influenza A and Influenza B antigen. PCR confirmation of negative results is recommended, since the antigen present in the specimen may be below the detection limit of the test. [employer] Phone: Special Requests NOT REPORTED [employer] Phone: Specimen Description .NOSE [employer] Phone: XR ABDOMEN (KUB) (SINGLE AP VIEW)Ordered By: Jonathan Monte on 09-16-2019 Nonspecific, nonobstructive bowel gas pattern. Moderate retained stool, mostly left colon. [employer] Phone: EXAMINATION: ONE SUPINE XRAY VIEW(S) OF THE ABDOMEN 09/16/2019 2:20 pm COMPARISON: Abdominal series from HISTORY: ORDERING SYSTEM PROVIDED HISTORY: Fever with chills FINDINGS: Moderate retained stool, mostly left colon. No abnormal bowel dilatation. No obvious free air. No obvious abnormal calcification, mass or organomegaly. Bones and soft tissues appear intact. [employer] Phone: Toño, [facility] Incoming Radiant Results From [facility] - 09/16/2019 4:16 PM EST EXAMINATION: ONE [...] pattern. Moderate retained stool, mostly left colon. [employer] Phone: XR CHEST STANDARD (2 VW)Orde red By: Jonathan Monte on 09-16-2019 Mild perihilar congestion and thickening but no evidence of consolidative infiltrates. [employer] Phone: EXAMINATION: TWO XRAY VIEWS OF THE CHEST 09/16/2019 2:20 pm COMPARISON: None. HISTORY: ORDERING SYSTEM PROVIDED HISTORY: Fever with chills FINDINGS: Mildly increased perihilar markings consistent with congestion. No evidence of consolidative infiltrates. No evidence of pleural effusion or pneumothorax. Heart and mediastinum appear normal. [employer] Phone: Toño, M[facility]pn Incoming Radiant Results From [facility] - 09/16/2019 2:47 PM EST EXAMINATION: TWO XRAY VIEWS OF THE CHEST 09/16/2019 2:20 pm COMPARISON: None. HISTORY: ORDERING SYSTEM PROVIDED HISTORY: Fever with chills FINDINGS: Mildly increased perihilar markings consistent with congestion. No evidence of consolidative infiltrates. No evidence of pleural effusion or pneumothorax. Heart and mediastinum appear normal. IMPRESSION: Mild perihilar congestion and thickening but no evidence of consolidative infiltrates. [employer] Phone: Basic Metabolic PanelOrdered By: Junior Rodriguez on 08-22-2019 Anion gap [Moles/Vol] 11 mmol/L 9 - 17 mmol/L [employer] Phone: Bun/Cre Ratio 26 [employer] Work Phone: Calcium [Mass/Vol] 9.4 mg/dL 8.6 - 10. 4 mg/dL [employer] Phone: Chloride [Moles/Vol] 102 mmol/L 98 - 10 7 mmol/L [employer] Phone: CO2 [Moles/Vol] 21 mmol/L 20 - 31 mmol/L [employer] Phone: Creatinine [Mass/Vol] 0.72 mg/dL 0.5 - 0.9 mg/dL [employer] Phone: GFR >60 >60 mL/min [employer] Phone: GFR Comment [employer] Phone: Comment on above: Average GFR for 30-3 9 years old: 107 mL/min/1.73sq m Chronic Kidney Disease: <60 mL/min/1.73sq m Kidney failure: <15 mL/min/1.73sq m eGFR calculated using average adult body mass. Additional eGFR calculator available at: http://www.Kirondo/multiple_crcl_2012.htm GFR Non- >60 >60 mL/min [employer] Phone: GFR Staging [employer] Phone: Comment on above: Stage 1: Some kidney damage normal GFR Stage 2: Mild kidney damage GFR 60-89 Stage 3: Moderate kidney damage GFR 30-59 Stage 4: Severe kidney damage GFR 15-29 Stage 5: Severe kidney damage GFR <15 ESRD - chronic treatment by dialysis or transplant Glucose [Mass/Vol] 122 mg/dL High 70 - 99 mg/dL [employer] Phone: Interpretation and review of laboratory results Abnormal [employer] Phone: Potassium [Moles/Vol] 4.3 mmol/L 3.7 - 5.3 mmol/L [employer] Phone: Sodium [Moles/Vol] 134 mmol/L Low 135 - 144 mmol/L [employer] Phone: Urea nitrogen [Mass/Vol] 19 mg/dL 6 - 20 mg/dL [employer] Phone: CBC Auto DifferentialOrdered By: Junior Rodriguez on 08-22-2019 Absolute Eos # 0.03 [facility] Work Phone: Absolute Immature Granulocyte 0.05 [employer] Work Phone: Absolute Lymph # 1.58 [facility] Work Phone: Absolute Elbert # 0.25 [facility] Work Phone: Basophils (Bld) [#/Vol] 0.03 10*3/uL [facility] Phone: Basophils/100 WBC (Bld) 0 % 0 - 2 % [facility] Work Phone: Differential Type NOT REPORTED [facility] Phone: Eosinophils/100 WBC (Bld) 0 % Low 1 - 4 % [employer] Phone: Erythrocyte distribution width (RBC) [Ratio] 12.9 % 11.8 - 14.4 % [employer] Phone: Hematocrit (Bld) [Volume fraction] 38.0 % 36.3 - 47.1 % [employer] Phone: Hemoglobin (Bld) [Mass/Vol] 12.5 g/dL 11.9 - 15.1 g/dL [employer] Phone: Immature granulocytes/100 WBC (Bld) 0 % 0 [employer] Phone: Interpretation and review of laboratory results Abnormal [employer] Phone: Lymphocytes/100 WBC (Bld) 13 % Low 24 - 43 % [employer] Phone: MCH (RBC) [Entitic mass] 29.1 pg 25.2 - 33.5 pg [employer] Phone: MCHC (RBC) [Mass/Vol] 32.9 g/dL 28.4 - 34.8 g/dL [employer] Phone: MCV (RBC) [Entitic vol] 88.4 fL 82.6 - 102.9 fL [employer] Work Phone: Monocytes/100 WBC (Bld) 2 % Low 3 - 12 % [facility] Work Phone: NRBC Automated 0.0 0.0 per 100 WBC [employer] Phone: Platelet Estimate NOT REPORTED [employer] Work Phone: Platelet mean volume (Bld) [Entitic vol] 10.1 fL 8.1 - 13.5 fL [employer] Work Phone: Platelets (Bld) [#/Vol] 377 10*3/uL [employer] Work Phone: RBC (Bld) [#/Vol] 4.30 10*6/uL 3.95 - 5.1 1 m/uL [employer] Work Phone: RBC morphology finding Nom (Bld) NOT REPORTED [facility] Work Phone: Segmented neutrophils/100 WBC (Bld) 85 % High 36 - 65 % [employer] Work Phone: Segs Absolute 9.95 High [facility] Work Phone: WBC (Bld) [#/Vol] 11.9 10*3/uL High [employer] Work Phone: WBC Morphology NOT REPORTED [facility] Work Phone: Rheumatoid FactorOrdered By: Junior Rodriguez on 08-22-2019 Rheumatoid Factor <10 <14 IU/mL [employer] Work Phone: TSH without ReflexOrdered By : Junior Rodriguez on 08-22-2019 TSH Qn 0.72 m[IU]/L [employer] Work Phone: XR CERVICAL SPINE (4-5 VIEWS )Ordered By: Junior Rodriguez on 08-22-2019 Minimal C5-C6 degenerative change, otherwise negative cervical spine. [employer] Work Phone: EXAMINATION: 5 XRAY VIEWS OF THE [...] The base of the odontoid appears intact. [employer] Phone: Toño, [facility] Incoming Radiant Results From [facility] - 08/22/2019 5:08 PM EST EXAMINATION: 5 [...] C5-C6 degenerative change, otherwise negative cervical spine. 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 [employer] Phone: EXAMINATION: THREE XRAY VIEWS OF THE [...] sacrum is unremarkable. No significant degenerative changes. 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 [facility] [employer] Work Phone: CBC Auto Differentialon 07-12 Basophils (Bld) [#/Vol] 0.05 10*3/uL [place] Basophils/100 WBC (Bld) 1 % 0 - 2 % [place] Differential Type NOT REPORTED [place] Eosinophils (Bld) [#/Vol] 0.10 10*3/uL [place] Eosinophils/100 WBC (Bld) 1 % 1 - 4 % [place] Erythrocyte distribution width (RBC) [Ratio] 12.7 % 11.8 - 14.4 % [place] Hematocrit (Bld) [Volume fraction] 41.2 % 36.3 - 47.1 % [place] Hemoglobin (Bld) [Mass/Vol] 13.9 g/dL 11.9 - 15.1 g/dL [place] Immature granulocytes (Bld) [#/Vol] 0 % 0 [place] Immature granulocytes (Bld) [#/Vol] 10*3/uL [place] Lymphocytes (Bld) [#/Vol] 2.37 10*3/uL [place] Lymphocytes/100 WBC (Bld) 29 % 24 - 43 % [place] MCH (RBC) [Entitic mass] 28.8 pg 25.2 - 33.5 pg [place] MCHC (RBC) [Mass/Vol] 33.7 g/dL 28.4 - 34.8 g/dL [place] MCV (RBC) [Entitic vol] 85.3 fL 82.6 - 102.9 fL [place] Monocytes (Bld) [#/Vol] 0.53 10*3/uL [place] Monocytes/100 WBC (Bld) 7 % 3 - 12 % [place] Platelet mean volume (Bld) [Entitic vol] 10.8 fL 8.1 - 13.5 fL [place] Platelets (Bld) [#/Vol] 326 10*3/uL [place] Platelets (Bld) [#/Vol] NOT REPORTED [place] RBC (Bld) [#/Vol] 4.83 10*6/uL 3.95 - 5.1 1 m/uL [place] RBC morphology finding Nom (Bld) NOT REPORTED [place] Segmented neutrophils/100 WBC (Bld) 62 % 36 - 65 % [place] Segs Absolute 5.08 [place] WBC (Bld) [#/Vol] 8.2 10*3/uL [place] WBC (Bld) [#/Vol] 0.0 10*3/uL 0.0 per 10 0 WBC [place] WBC Morphology NOT REPORTED [place] Comprehensive Metabolic Pane lindy 07-30-2019 Albumin [Mass/Vol] 4.7 g/dL 3.5 - 5.2 g/dL [place] Albumin/Globulin [Mass ratio] 1.4 {ratio} [place] ALP [Catalytic activity/Vol] 75 U/L 35 - 104 U/L [place] ALT [Catalytic activity/Vol] 19 U/L 5 - 33 U/L [place] Anion gap [Moles/Vol] 13 mmol/L 9 - 17 mmol/L [place] AST [Catalytic activity/Vol] 21 U/L <32 [place] Bilirubin Ql (U) 0.57 mg/dL 0.3 - 1.2 mg/dL [place] Bun/Cre Ratio 17 [place] Calcium [Mass/Vol] 9.9 mg/dL 8.6 - 10. 4 mg/dL [place] Chloride [Moles/Vol] 99 mmol/L 98 - 10 7 mmol/L [place] CO2 [Moles/Vol] 22 mmol/L 20 - 31 mmol/L [place] Creatinine [Mass/Vol] 0.75 mg/dL 0.5 - 0.9 mg/dL [place] GFR >60 >60 mL/min [place] GFR Non- >60 >60 mL/min [place] Glucose [Mass/Vol] 108 mg/dL High 70 - 99 mg/dL [place] Interpretation and review of laboratory results Abnormal [place] Potassium [Moles/Vol] 3.9 mmol/L 3.7 - 5.3 mmol/L [place] Protein [Mass/Vol] 8.1 g/dL 6.4 - 8.3 g/dL [place] Sodium [Moles/Vol] 134 mmol/L Low 135 - 144 mmol/L [place] Urea nitrogen [Mass/Vol] 13 mg/dL 6 - 20 mg/dL [place] Drug screen multi urineon Amphetamine Screen, Ur Negative NEGATIVE [place] Barbiturate Screen, Ur Negative NEGATIVE [place] Benzodiazepine Screen, Urine Negative NEGATIVE [place] Buprenorphine Urine Negative NEGATIVE [place] Cannabinoid Scrn, Ur Negative NEGATIVE [place] Cocaine Metabolite, Urine Negative NEGATIVE [place] MDMA, Urine NOT REPORTED NEGATIVE [place] Methadone Screen, Urine Negative NEGATIVE [place] Methamphetamine, Urine Negative NEGATIVE [place] Opiates, Urine Negative NEGATIVE [place] Oxycodone Screen, Ur Negative NEGATIVE [place] Phencyclidine, Urine Negative NEGATIVE [place] Propoxyphene, Urine Negative NEGATIVE [place] Test Information NOT REPORTED [place] Tricyclic Antidepressants, Urine Negative NEGATIVE [facility] [place] [place] Comment on above: Drug screen results are to be used for medical purposes only. All positive results are unconfirmed. Testing for employment or legal uses should be sent to a reference laboratory for confirmation. HCG Qualitative, Serumon hCG Qual Negative NEGATIVE [place] Comment on above: Specimens with hCG l evels near the threshold of the test (25 mIU/mL) may give a negative or indeterminate result. In such cases, another test should be performed with a new specimen in 48-72 hours. If early is suspected clinically in this setting, correlation with quantitative serum b-hCG level is suggested. [facility] [employer] has confirmed the use of plasma for this test. This has not been cleared or approved by the U.S. Food and Drug Administration. The FDA has determined that such clearance is not necessary. Magnesiumon 07-30-2019 Magnesium [Mass/Vol] 2.1 mg/dL 1.6 - 2 .6 mg/dL [place] Metabolic Panelon 07-30-2019 GFR/1.73 sq M predicted among non-blacks MDRD (S/P/Bld) [Vol rate/Area] [place] Comment on above: Average GFR for 30-3 9 years old: 107 mL/min/1.73sq m Chronic Kidney Disease: <60 mL/min/1.73sq m Kidney failure: <15 mL/min/1.73sq m eGFR calculated using average adult body mass. Additional eGFR calculator available at: http://www.Kirondo/multiple_crcl_2012.htm Stage 1: Some kidney damage normal GFR Stage 2: Mild kidney damage GFR 60-89 Stage 3: Moderate kidney damage GFR 30-59 Stage 4: Severe kidney damage GFR 15-29 Stage 5: Severe kidney damage GFR <15 ESRD - chronic treatment by dialysis or transplant Microscopic Urinalysison Amorphous, UA 1+ Abnormal None [place] Bacteria, UA NOT REPORTED None [place] Casts UA NOT REPORTED /LPF [place] Crystals UA NOT REPORTED None /HPF [place] Epithelial Cells UA 5 TO 10 [place] Interpretation and review of laboratory results Abnormal [place] Mucus, UA NOT REPORTED None [place] Other Observations UA NOT REPORTED NOT REQ. [place] RBC (U) [#/Vol] 0 TO 2 [facility] [place] Renal Epithelial, Urine NOT REPORTED 0 /HPF [place] Trichomonas, UA NOT REPORTED None [place] WBC, UA 2 TO 5 [place] Yeast, UA NOT REPORTED None [place] - [facility] [place] Otheron 07-30-[address]: No acute intracranial abnormality. Lumbar spine CT: No acute osseous abnormality. [place] EXAMINATION: CT OF THE HEAD WITHOUT [...] abnormal fluid collections. No nephrolithiasis or hydronephrosis. [place] Toño, [employer] Incoming Radiant Results From [facility] - 07/30/2019 11:05 AM EST EXAMINATION: CT [...] Lumbar spine CT: No acute osseous abnormality. [place] TSH without Reflexon 019 TSH Qn 1.43 m[IU]/L [place] Troponinon 07-30-2019 Troponin I.cardiac [Mass/Vol] [place] Comment on above: Reference Range: <0.03 [...] diagnosis. Troponin T.cardiac [Mass/Vol] ug/L <0.03 ng/mL [place] Comment on above: Troponin T results c annot be compared to Troponin-I results. Troponin, High Sensitivity NOT REPORTED 0 - 14 ng/L [place] Urinalysis Reflex to Culture on 07-30-2019 Bilirubin Urine Negative NEGATIVE [facility] [place] Color, UA YELLOW YELLOW [place] Glucose, Ur Negative NEGATIVE [place] Interpretation and review of laboratory results Abnormal [place] Ketones Ql (U) Negative NEGATIVE [place] Leukocyte esterase Test strip Ql (U) Negative NEGATIVE [place] Nitrite, Urine Negative NEGATIVE [facility], [place] pH, UA 7.5 [place] Protein (U) [Mass/Vol] Negative NEGATIVE [place] Specific [place], UA 1.015 [place] Turbidity UA CLEAR CLEAR [place] Urinalysis Comments NOT REPORTED [place] Urine Hgb TRACE Abnormal NEGATIVE [place] Urobilinogen, Urine Normal Normal [place] Vital Signs Date Time Vital Sign Value Performing Clinician Gulshan hearn 12-11-2023 13:03-0400 Body height 162.6 cm Jarred Whaley MD Work Phone: [facility] 12-11-2023 13:03-0400 Body mass index (BMI) [Ratio] 30 kg/m2 Jarred Whaley MD Work Phone: [facility] 12-11-2023 13:03-0400 Body temperature 98.1 [degF] Jarred Whaley MD Work Phone: [facility] 12-11-2023 13:03-0400 Body weight 79.29 kg Jarred Whaley MD Work Phone: [facility] 12-11-2023 13:03-0400 Respiratory rate 18 /min Jarred Whaley MD Work Phone: [facility] 12-11-2023 05:32-0400 Body temperature 97.3 [degF] Rishabh Nieves MD Work Phone: [facility] 12-11-2023 05:32-0400 Diastolic blood pressure 69 mm[Hg] Rishabh Nieves MD Work Phone: [employer] 12-11-2023 05:32-0400 Heart rate 92 /min Rishabh Nieves MD Work Phone: [facility] [employer] 12-11-2023 05:32-0400 Respiratory rate 17 /min Rishabh Nieves MD Work Phone: [employer] 12-11-2023 05:32-0400 SaO2% (BldA) [Mass fraction] 100 % Rishabh Nieves MD Work Phone: [employer] 12-11-2023 05:32-0400 Systolic blood pressure 117 mm[Hg] Rishabh Nieves MD Work Phone: [employer] 09-28-2023 13:06-0500 Body temperature 100.2 [degF] Avelino Swade DO Work Phone: [employer] 09-28-2023 13:06-0500 Diastolic blood pressure 58 mm[Hg] Avelino Swade DO Work Phone: [employer] 09-28-2023 13:06-0500 Heart rate 94 /min Avelino Swade DO Work Phone: [employer] 09-28-2023 13:06-0500 Respiratory rate 20 /min Avelino Swade DO Work Phone: [employer] 09-28-2023 13:06-0500 SaO2% (BldA) [Mass fraction] 97 % Avelino Swade DO Work Phone: [employer] 09-28-2023 13:06-0500 Systolic blood pressure 111 mm[Hg] Avelino Swade DO Work Phone: [employer] 09-28-2023 10:51-0500 Body height 162.6 cm Avelino Swade DO Work Phone: [employer] 09-28-2023 10:51-0500 Body mass index (BMI) [Ratio] 33.47 kg/m2 Avelino Swade DO Work Phone: [facility] [employer] 09-28-2023 10:51-0500 Body weight 88.45 kg Avelino Swade DO Work Phone: [facility] [employer] 09-11-2023 09:16-0500 Body height 162.6 cm Vitaliy Gan Jr. , DO Work Phone: [employer] 09-11-2023 09:16-0500 Body mass index (BMI) [Ratio] 33.13 kg/m2 Vitaliy Gan Jr., DO Work Phone: [employer] 09-11-2023 09:16-0500 Body temperature 97 [degF] Vitaliy Gan Jr. , DO Work Phone: [facility] [employer] 09-11-2023 09:16-0500 Body weight 87.54 kg Vitaliy Gan Jr. , DO Work Phone: [employer] 09-11-2023 09:16-0500 Diastolic blood pressure 82 mm[Hg] Vitaliy Gan Jr., DO Work Phone: [facility] [employer] [facility] 09-11-2023 09:16-0500 Heart rate 88 /min Vitaliy Gan Jr. , DO Work Phone: [employer] [place] [facility] 09-11-2023 09:16-0500 SaO2% (BldA) [Mass fraction] 98 % Vitaliy Gan Jr., DO Work Phone: [employer] 09-11-2023 09:16-0500 Systolic blood pressure 124 mm[Hg] Vitaliy Gan Jr., DO Work Phone: [employer] [place] [facility] 09-01-2023 21:13-0500 Diastolic blood pressure 51 mm[Hg] Octavio Keller DO [facility] 09-01-2023 21:13-0500 Heart rate 71 /min Octavio Andes DO Work Phone: [facility] [employer] 09-01-2023 21:13-0500 Respiratory rate 12 /min Octavio Andes DO Work Phone: [facility] [employer] 09-01-2023 21:13-0500 SaO2% (BldA) [Mass fraction] 95 % Octavio Andes DO Work Phone: [facility] [employer] 09-01-2023 21:13-0500 Systolic blood pressure 115 mm[Hg] Octavio Andes DO Work Phone: [facility] [employer] 09-01-2023 19:40-0500 Body height 162.6 cm Octavio Andes DO Work Phone: [facility] [employer] 09-01-2023 19:40-0500 Body mass index (BMI) [Ratio] 32.61 kg/m2 Octavio Andes DO Work Phone: [facility] [employer] 09-01-2023 19:40-0500 Body temperature 99 [degF] Octavio Andes DO Work Phone: [facility] [employer] 09-01-2023 19:40-0500 Body weight 86.18 kg Octavio Andes DO Work Phone: [facility] [employer] 08-25-2023 08:45-0500 Body temperature 97.9 [degF] Patricio Aldridge MD Work Phone: [facility] [employer] 08-25-2023 08:45-0500 Diastolic blood pressure 70 mm[Hg] Patricio Aldridge MD Work Phone: [facility] [employer] 08-25-2023 08:45-0500 Heart rate 63 /min Patricio Aldridge MD Work Phone: [facility] [employer] 08-25-2023 08:45-0500 Respiratory rate 18 /min Patricio Aldridge MD Work Phone: [facility] [employer] 08-25-2023 08:45-0500 SaO2% (BldA) [Mass fraction] 99 % Patricio Aldridge MD Work Phone: [facility] 08-25-2023 08:45-0500 Systolic blood pressure 106 mm[Hg] Patricio Aldridge MD Work Phone: [facility] 08-24-2023 14:45-0500 Body mass index (BMI) [Ratio] 32.88 kg/m2 Patricio Aldridge MD Work Phone: [facility] 08-24-2023 14:45-0500 Body weight 86.9 kg Patricio Aldridge MD Work Phone: [facility] 08-24-2023 06:50-0500 Body height 162.6 cm Patricio Aldridge MD Work Phone: [facility] 06-04-2023 14:41-0400 Diastolic blood pressure 82 mm[Hg] [facility] 06-04-2023 14:41-0400 Mean blood pressure 96 mm[Hg] Herve [facility] 06-04-2023 14:41-0400 Systolic blood pressure 124 mm[Hg] Herve [facility] 06-04-2023 14:30-0400 Blood Pressure Location Herve Christofferson [facility] 06-04-2023 14:30-0400 Diastolic blood pressure 93 mm[Hg] Herve [facility] 06-04-2023 14:30-0400 Heart rate 82 /min Herve [facility]off[facility] 06-04-2023 14:30-0400 SaO2% (BldA) [Mass fraction] 99 % Herve [facility]off[facility] 06-04-2023 14:30-0400 Systolic blood pressure 139 mm[Hg] Herve Lan [facility] 12-16-2022 17:22-0400 Body mass index (BMI) [Ratio] 33.47 kg/m2 Paige Fallon MD Work Phone: [employer] 12-16-2022 17:22-0400 Body temperature 97.5 [degF] Paige Fallon MD Work Phone: [employer] 12-16-2022 17:22-0400 Body weight 88.45 kg Paige Fallon MD Work Phone: [employer] 12-16-2022 17:22-0400 Diastolic blood pressure 82 mm[Hg] Paige Fallon MD Work Phone: [employer] 12-16-2022 17:22-0400 Heart rate 61 /min Paige Fallon MD Work Phone: [employer] 12-16-2022 17:22-0400 Respiratory rate 16 /min Paige Fallon MD Work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 [facility] [employer] Comment on above: Postponed from 2006 (Not Indicated ) Start: 01-09-2024 End: 01-09-2024 Clinical Support [facility] Start: 08-18-2023 Depression Monitoring Depression Monitoring [place] Start: 08-17-2023 Hemoglobin A1c measurement A1C test (Diabetic or Prediabetic) [facility] [employer] Start: 08-17-2023 Lipid panel Lipids [facility] [employer] Start: 06-13-2023 Depression Monitoring Depression Monitoring [facility] Start: 06-13-2023 DTaP/Tdap/Td vaccine (1 - Tdap) DTaP/Tdap/Td vaccine (1 - Tdap) [facility] Comment on above: Postponed from 01/09/2004 (Patient Refus ed) Start: 06-13-2023 Hepatitis C screening Hepatitis C screen [facility] Comment on above: Postponed from 2003 (Patient Refus ed) Start: 06-13-2023 HIV screening HIV screen [facility] Comment on above: Postponed from 01/09/2000 (Patient Refus ed) Start: 05-23-2023 Influenza vaccination Flu vaccine (#1) [facility] Comment on above: Postponed from 04/10/2022 (Patient Refus ed) Start: 05-11-2023 COVID-19 Vaccine () COVID-19 Vaccine () [facility] Start: 05-11-2023 Influenza vaccination INFLUENZA VACCINE (#1) [facility] Start: 04-10-2023 Influenza vaccination Flu vaccine (#1) [facility] Start: 02-20-2023 End: 02-20-2023 Patient encounter procedure 02/20/2023 Office Visit Primary Care Tiffany Tejeda APRN - CIRCULATION MANAGER [address] [place] [address] [facility] [place] Start: 02-16-2023 COVID-19 Vaccine (3 - Booster for Pfizer series) COVID-19 Vaccine (3 - Booster for Pfizer series) [facility] Comment on above: Postponed from 07/28/2021 (Not Indicated ) Postponed from 04/22 (Not Indicated) Start: 02-16-2023 Hemoglobin A1c measurement A1C test (Diabetic or Prediabetic) [facility] Start: 10-21-2022 Depression Monitoring Depression Monitoring [facility] Start: 08-18-2022 End: 08-18-2022 Patient encounter procedure 08/18/2022 Office Visit Primary Care Tiffany Tejeda APRN - CIRCULATION MANAGER [address] [place] [address] [facility] [place] Start: 07-05-2022 End: 07-05-2022 Patient encounter procedure 07/05/2022 Appointment Radiology [facility] Start: 05-26-2022 Depression Monitoring Depression Monitoring [facility] Start: 05-26-2022 DTaP/Tdap/Td vaccine (1 - Tdap) DTaP/Tdap/Td vaccine (1 - Tdap) [facility] Comment on above: Postponed from 01/09/2004 (Patient Refus ed) Start: 05-26-2022 Hepatitis C screening Hepatitis C screen [facility] Comment on above: Postponed from 1985 (Patient Refus ed) Start: 05-26-2022 HIV screening HIV screen [facility] Comment on above: Postponed from 01/09/2000 (Patient Refus ed) Start: 05-26-2022 Influenza vaccination Flu vaccine (#1) [facility] Comment on above: Postponed from 05/11/2021 (Patient Refus ed) Start: 05-26-2022 Screening for malignant neoplasm of cervix Cervical cancer screen [facility] Comment on above: Postponed from 2015 (Not Indicated ) Postponed from 01/08 (Not Indicated) Start: 05-11-2022 Influenza vaccination INFLUENZA VACCINE (#1) [facility] [place] [facility] Start: 04-18-2022 Hemoglobin A1c measurement A1C test (Diabetic or Prediabetic) [facility] Start: 10-20-2021 End: 10-20-2021 Patient encounter procedure 10/20/2021 Office Visit Primary Care Tiffany Tejeda, AIRCRAFT SEAT UPHOLSTERER - CIRCULATION MANAGER [address] [place] [address] [facility] Start: 07-28-2021 COVID-19 Vaccine (3 - Booster for Pfizer series) COVID-19 Vaccine (3 - Booster for Pfizer series) [facility] Start: 06-24-2021 End: 06-24-2021 Patient encounter procedure 06/24/2021 Office Visit Primary Care Tiffany Tejeda AIRCRAFT SEAT UPHOLSTERER - CIRCULATION MANAGER [address] [place] [address] [phone] [facility] Start: 06-22-2021 End: 06-22-2021 Patient encounter procedure 06/22/2021 Office Visit [facility] ONLY Start: 06-16-2021 Varicella vaccine (1 of 2 - 2-dose childhood series) Varicella vaccine (1 of 2 - 2-dose childhood series) [facility] [employer] Phone: Comment on above: Postponed from 1986 (Not Indicated ) Start: 05-26-2021 End: 05-26-2021 Patient encounter procedure 05/26/2021 Office Visit Primary Care Tiffany Tejeda, AIRCRAFT SEAT UPHOLSTERER - CIRCULATION MANAGER [address] [place] [address] [phone] [facility] [place] Start: 05-11-2021 Influenza vaccination [facility] [employer] Phone: Start: 03-23-2021 End: 03-23-2021 Patient encounter procedure 03/23/2021 Office Visit [facility] Start: 09-22-2020 End: 09-22-2020 Office Visit 09/22/2020 Office Visit [facility] Start: 05-11-2020 Influenza vaccination [place] Start: 09-18-2019 End: 09-18-2019 Clinical Support 09/18/2019 Clinical Support Otolaryngology Noelle Chaidez MA [facility] Start: 05-11-2019 Influenza vaccination Flu vaccine (#1) [place] Start: 05-11-2019 Influenza vaccination given SEQUENTIAL INFLUENZA VACCINE (#1) [facility] Start: 2015 Screening for malignant neoplasm of cervix [facility] Start: 2006 Cervical cancer screen Cervical cancer screen [place] Start: 2006 Screening for malignant neoplasm of cervix [facility] Start: 01-09-2004 DTaP,Tdap and Td Vaccines (1 - Tdap) DTaP,Tdap and Td Vaccines (1 - Tdap) [facility] Start: 01-09-2004 DTaP/Tdap/Td vaccine (1 - Tdap) DTaP/Tdap/Td vaccine (1 - Tdap) [facility] Start: 01-09-2004 Third diphtheria, tetanus and acellular pertussis (DTaP) vaccination TDAP (ADULT) [facility] Start: 2003 Adult BMI Follow Up Plan Adult BMI Follow Up Plan [facility] Start: 2003 Hepatitis C screening Hepatitis C screen [facility] Start: 2003 Tetanus vaccination TETANUS [facility] Start: 2001 COVID-19 Vaccine (1) COVID-19 Vaccine (1) [facility] [employer] Phone: Start: 01-09-2000 HIV screen HIV screen [place] Start: 01-09-2000 HIV screening [facility] Start: 1997 COVID-19 Vaccine (1) COVID-19 Vaccine (1) [facility] [employer] Phone: Start: 1997 Depression Screening Depression Screening [facility] Start: 01-09-1996 DTaP/Tdap/Td vaccine (1 - Tdap) DTaP/Tdap/Td vaccine (1 - Tdap) [place] Start: 01-09-1988 History and physical examination, annual for health maintenance Wellness Visit [facility] Start: 1986 Varicella vaccine (1 of 2 - 2-dose childhood series) Varicella vaccine (1 of 2 - 2-dose childhood series) [place] Start: 1985 COVID-19 VACCINE (#1) COVID-19 VACCINE (#1) [facility] Start: 1985 Hepatitis B vaccination HEP B VACCINE (1 of 3 - 3-dose series) [facility] Start: 1985 Hepatitis B vaccine (1 of 3 - 3-dose series) Hepatitis B vaccine (1 of 3 - 3-dose series) [facility] Start: 1985 Hepatitis C antibody, confirmatory test HEPATITIS C VIRUS SCREENING [facility] Start: 1985 Hepatitis C screening [facility] Start: 1985 Screening for malignant neoplasm of cervix PAP SMEAR [facility] Start: 1985 Tetanus vaccination [facility] End: 05-31-2021 LARISSA Screen With Reflex LARISSA Screen With Reflex Lab Routine Chronic pain syndrome 1 Occurrences starting 05/31/2021 until 05/31/2021 [employer] Phone: Comment on above: 1 Occurrences starting 05/31/2021 until 05/31/2021 LARISSA Screen With Reflex LARISSA Scree n With Reflex Lab Routine Chronic pain syndrome 05/31/2021 10:43 AM EDT [employer] Phone: End: 06-15-2020 Blood glucose - POCT Blood glucose - POCT Point of Care Testing Routine One Time for 1 Occurrences starting 06/15/2020 until 06/15/2020 [facility] [employer] Comment on above: One Time for 1 Occurrences starting 02/2020 until 06/15/2020 End: 02-18-2021 C.trachomatis N.gonorrhoeae DNA C.trachomatis N.gonorrhoeae DNA Microbiology STAT One Time for 1 Occurrences starting 02/18/2021 until 02/18/2021 [employer] Phone: Comment on above: One Time for 1 Occurrences starting 02/08 until 02/18/2021 C.trachomatis N.gono rrhoeae DNA C.trachomatis N.gonorrhoeae DNA Microbiology STAT 02/18/2021 7:48 PM EDT [employer] Phone: End: 05-31-2021 Cyanocobalamin vitamin b-12 Vitamin B12 Lab Routine Chronic fatigue 1 Occurrences starting 05/31/2021 until 05/31/2021 [employer] Phone: Comment on above: 1 Occurrences starting 05/31/2021 until 05/31/2021 Cyanocobalamin vitamin b-12 Karen min B12 Lab Routine Chronic fatigue 05/31/2021 10:44 AM EDT [employer] Phone: EKG 12 Lead EKG 12 Lead ECG STAT 07/30/2019 8:36 [facility]: 07-30-2019 Free T4 [Mass/Vol] T4, Free Lab STAT One Time for 1 Occurrences starting 07/30/2019 until 07/30/2019 [facility] Comment on above: One Time for 1 Occurrences starting 07/12 until 07/30/2019 Free T4 [Mass/Vol] T4, Free Lab STAT 07/30/2019 8:15 AM [employer] [place], [place] End: 06-21-2022 HLA-B27 Antigen [employer] Phone: Comment on above: Once for 1 Occurrences starting 06/21/20 until 06/21/2022 Lupus Anticoagulant Lupus Antico agulant Lab Routine 08/22/2019 4:31 PM [employer] Phone: End: 04-18-2021 MRSA DNA Probe, Nasal MRSA DNA Probe, Nasal Microbiology STAT Once for 1 Occurrences starting 04/18/2021 until 04/18/2021 [employer] Phone: Comment on above: Once for 1 Occurrences starting 04/18/20 21 until 04/18/2021 MRSA DNA Probe, Nasal MRSA DNA P robe, Nasal Microbiology STAT 04/18/2021 9:44 AM EDT [employer] Phone: End: 10-10-2021 MRSA DNA Probe, Nasal [employer] Phone: Comment on above: Once for 1 Occurrences starting 10/10/19 until 10/10/2021 End: 08-22-2019 Nuclear Ab [Titer] in Serum by Immunofluorescence LARISSA Lab Routine Once for 1 Occurrences starting 08/22/2019 until 08/22/2019 [employer] Phone: Comment on above: Once for 1 Occurrences starting 08/22/20 19 until 08/22/2019 Nuclear Ab [Titer] i n Serum by Immunofluorescence LARISSA Lab Routine 08/22/2019 4:31 PM [employer] Phone: End: 06-21-2022 Nuclear Ab [Titer] in Serum by Immunofluorescence [employer] Phone: Comment on above: Once for 1 Occurrences starting 06/21/20 until 06/21/2022 Oxygen therapy [[facility] Data Set] Initiate Oxygen Therapy Protocol Respiratory Care Routine As Needed until discontinued starting 08/24/2023 [employer] Comment on above: As Needed until discontinued starting End: 06-15-2020 , urine , urine Lab Routine One Time for 1 Occurrences starting 06/15/2020 until 06/15/2020 [facility] [place], [place] Comment on above: One Time for 1 Occurrences starting 02/2020 until 06/15/2020 Immunizations Immunization Date Immunization Notes Care Provider Samina harper 07-07-2022 influenza virus vaccine, unspecified formulation Tiffany Might AIRCRAFT SEAT UPHOLSTERER - CIRCULATION MANAGER Work Phone: [facility] Work Phone: 07-07-2022 influenza, injectable, quadrivalent, preservative free Tiffany Might AIRCRAFT SEAT UPHOLSTERER - CIRCULATION MANAGER Work Phone: [facility] Work Phone: 02-25-2021 SARS-CoV-2 (COVID-19 ) mRNA BNT-162b2 vax Herve Lan [facility] Comment on above: Result Comment: 2022: TPVAL 02-04-2021 SARS-CoV-2 (COVID-19 ) mRNA BNT-162b2 vax Herve Lan [facility] Comment on above: Result Comment: 2022: TPVAL 07-02-2020 Influenza, injectable, Madin Leigha Canine Kidney, preservative free, quadrivalent Tiffany Might AIRCRAFT SEAT UPHOLSTERER - CIRCULATION MANAGER Work Phone: [facility] Work Phone: 07-02-2020 influenza virus vaccine, unspecified formulation Yas Serrano MD Work Phone: [facility] 07-14-2019 influenza virus vaccine, unspecified formulation Herve Lan [facility] 07-14-2019 influenza, injectable, quadrivalent, contains preservative Tiffany Might AIRCRAFT SEAT UPHOLSTERER - CIRCULATION MANAGER Work Phone: [facility] 07-14-2019 influenza, seasonal, injectable Tiffany Might AIRCRAFT SEAT UPHOLSTERER - CIRCULATION MANAGER Work Phone: [facility] Work Phone: Payers Date Payer Category Payer Private Health Insurance [employer]ET[employer] A ETNA POS [id number] 2023-Present [phone] [address] [place] [address] [id number] 2023 Private Health Insurance [id number] [id number] .[id number] 2023 Unknown [id number] 1.2.840.592975.1.13.239.2.7 .3.008528.315 2022 Medicaid [employer]ICA[employer] [place] MEDICAID [id number] 2022-Present [address] [place] [address] [id number] .[id number] 2022 Medicaid [id number] 1.2.840.595727.1.13.239.2.7 .3.491695.315 2021 Unknown 2018 Private Health Insurance [id number] 2018 Medicaid [id number] .[id number] 2018 Unknown [id number] 2017 Medicaid [id number] 1985 Unknown [id number] 2.16.840.1.849276.3.579.2.7 54 1985 Unknown [id number] 2.16.840.1.758263.3.579.2.7 54 1985 Unknown [id number] 2.16.840.1.057779.3.579.2.7 54 1985 Unknown [id number] 2.16.840.1.571294.3.579.2.9 1985 Unknown [id number] 2.16.840.1.322624.3.579.2.9 1985 Unknown [id number] 2.16.840.1.443402.3.579.2.5 1985 Unknown [id number] 2.16.840.1.670868.3.579.2.5 1985 Unknown [id number] 2.16.840.1.406906.3.579.2.5 1985 Unknown [id number] 2.16.840.1.505895.3.579.2.5 1985 Unknown [id number] 2.16.840.1.696874.3.579.2.5 1985 Unknown [id number] 2.16.840.1.721372.3.579.2.5 1985 Unknown [id number] 2.16.840.1.096645.3.579.2.5 1985 Unknown [id number] 2.16.840.1.936637.3.579.2.5 1985 Unknown [id number] 2.16.840.1.810001.3.579.2.1 1985 Unknown [id number] 2.16.840.1.669391.3.579.2.1 1985 Unknown [id number] 2.16.840.1.832616.3.579.2.1 1985 Unknown [id number] 2.16.840.1.258947.3.579.2.1 1985 Unknown [id number] 2.16.840.1.910531.3.579.2.1 1985 Unknown [id number] 2.16.840.1.752973.3.579.2.1 1985 Unknown [id number] 2.16.840.1.533790.3.579.2.1 1985 Unknown [id number] 2.16.840.1.901504.3.579.2.1 96 1985 Unknown [id number] 2.16.840.1.215954.3.579.2.1 1985 Unknown [id number] 2.16.840.1.703925.3.579.2.1 1985 Unknown [id number] 2.16.840.1.782295.3.579.2.1 1985 Unknown [id number] 2.16.840.1.827555.3.579.2.1 1985 Unknown [id number] 2.16.840.1.610642.3.579.2.9 1985 Unknown [id number] 2.16.840.1.618610.3.579.2.1 1985 Unknown [id number] 2.16.840.1.026949.3.579.2.1 1985 Unknown [id number] 2.16.840.1.428585.3.579.2.1 1985 Unknown [id number] 2.16.840.1.818207.3.579.2.1 1985 Unknown [id number] 2.16.840.1.367130.3.579.2.1 1985 Unknown [id number] 2.16.840.1.490175.3.579.2.1 1985 Unknown [id number] 2.16.840.1.623031.3.579.2.1 1985 Unknown [id number] 2.16.840.1.359769.3.579.2.1 1985 Unknown [id number] 2.16.840.1.450502.3.579.2.1 1985 Unknown [id number] 2.16.840.1.119999.3.579.2.1 73 1985 Unknown [id number] 2.16.840.1.850279.3.579.2.1 286 1985 Unknown [id number] 2.16.840.1.649580.3.579.2.1 286 1985 Unknown [id number] 2.16.840.1.549505.3.579.2.1 286 1985 Unknown [id number] 2.16.840.1.045359.3.579.2.1 286 1985 Unknown [id number] 2.16.840.1.452157.3.579.2.1 259 1985 Unknown [id number] 2.16.840.1.022343.3.579.2.1 259 1985 Unknown [id number] 2.16.840.1.619512.3.579.2.1 259 1985 Unknown [id number] 2.16.840.1.030449.3.579.2.1 259 1985 Unknown [id number] 2.16.840.1.038955.3.579.2.1 259 1985 Unknown [id number] 2.16.840.1.839767.3.579.2.1 259 1985 Unknown [id number] 2.16.840.1.166011.3.579.2.1 259 1985 Unknown [id number] 2.16.840.1.392162.3.579.2.7 27 1985 Unknown [id number] 2.16.840.1.576794.3.579.2.7 27 1985 Unknown [id number] 2.16.840.1.835263.3.579.2.7 27 1985 Unknown [id number] 2.16.840.1.931874.3.579.2.7 27 1985 Unknown [id number] 2.16.840.1.077635.3.579.2.7 1985 Unknown [id number] 2.16.840.1.482118.3.579.2.7 1985 Unknown [id number] 2.16.840.1.101008.3.579.2.7 1985 Unknown [id number] 2.16.840.1.855002.3.579.2.7 1985 Unknown [id number] 2.16.840.1.211607.3.579.2.7 1985 Unknown [id number] 2.16.840.1.641097.3.579.2.7 1985 Unknown [id number] 2.16.840.1.059741.3.579.2.7 1985 Unknown [id number] 2.16.840.1.756619.3.579.2.7 1985 Unknown [id number] 2.16.840.1.045221.3.579.2.7 1985 Unknown [id number] 2.16.840.1.672603.3.579.2.7 1985 Unknown [id number] 2.16.840.1.211224.3.579.2.7 1985 Unknown [id number] 2.16.840.1.179572.3.579.2.7 1985 Unknown [id number] 2.16.840.1.713636.3.579.2.7 1985 Unknown [id number] 2.16.840.1.969345.3.579.2.7 1985 Unknown [id number] 2.16.840.1.826032.3.579.2.7 1985 Unknown [id number] 2.16.840.1.886421.3.579.2.7 1985 Unknown [id number] 2.16.840.1.042105.3.579.2.7 27 1985 Unknown [id number] 2.16.840.1.850923.3.579.2.7 27 1985 Unknown [id number] 2.16.840.1.602619.3.579.2.7 27 1985 Unknown [id number] 2.16.840.1.559404.3.579.2.7 27 1959 Unknown [id number] 1.2.840.131671.1.13.239.2.7 .3.959598.315 Self-pay Social History Date Type Detail Facility Start: 08-31-2019 End: 02-20-2024 Tobacco smoking status KYIS Never smoker [facility] Start: 08-31-2019 Alcohol intake Lifetime non-drinker (finding) [facility] Start: 08-29-2019 End: 06-13-2022 History SDOH Alcohol Frequency 1 [facility] Start: 1985 Sex Assigned At Not on file [place] Start: 01-29-2020 End: 12-11-2023 Alcohol intake Current non-drinker of alcohol (finding) [place] Exposure to SARS-CoV -2 (event) Unable to assess [place] Start: 01-29-2020 End: 01-12-2022 Tobacco use and exposure Never used [place] Start: 06-15-2022 End: 12-16-2022 Exposure to SARS-CoV-2 (event) Not sure [place] Start: 04-11-2022 End: 09-11-2023 Alcohol intake Ex-drinker (finding) [facility] Start: 06-13-2022 History SDOH Financial 5 [employer] Work Phone: Start: 1985 Sex Assigned At Female [facility] [employer] Tobacco smoking status Never [facility] Start: 02-19-2019 End: 08-24-2023 Sex Assigned At Female [facility] Start: 02-19-2019 End: 08-24-2023 History of Social function [employer] Has the electric, ScalIT s, oil, or water Bee There threatened to shut off services in your home in past 12Mo No [employer] How often to you hav e a drink containing alcohol? Never [employer] (I/We) worried wheadam er (my/our) food would run out before (I/we) got money to buy more. Never true [employer] Start: 01-25-2022 Gender identity Identifies as female gender (finding) [facility] [employer] Start: 01-25-2022 [facility] (finding[facility] Procedure Code Equipment Code Equipment Origin al Text Equipment Identifier Dates Allograft Si Int ra Art Fus 11mm - [id number] Start: 08-24-2023 Allograft Si Int ra Art Fus 11mm - [id number] Start: 08-24-2023 Functional Status Date Assessment Result Facility 06-04-2023 Functional Status No [facility] Clinical Notes 02-18-2021 to 03-04-2024 Telephone Encounter - Lynnette Nunes - 12/12/2023 11:55 AM EDTTelephone Encounter - Jarred Whaley MD - 12/12/2023 11:55 AM EDTTelephone Encounter - Rohan Millard CNA - 12/12/2023 11:55 AM EDT Note Date & Type Note Facility 03-04-2024 Note PROCEDURE: In the co skip projection, without intravenous contrast, 3 mm contiguous intervals were performed through the paranasal sinuses. FINDINGS: Well-developed well aerated paranasal sinuses. Mild bilateral maxillary floor mucosal thickening. No significant fluid collections. No osteomeatal unit compromise. Mild to moderate leftward nasal septal deviation, bony nasal spur. No nasal mass. Normal intracranial and intraorbital contents. Normal nasopharyngeal soft tissues. Normal aeration of mastoid air cells and paranasal sinuses. IMPRESSION: 1. Mild bilateral maxillary floor mucosal thickening. 2. Leftward nasal septal deviation, spur. TRANSCRIBED BY: ELECTRONICALLY SIGNED BY: Claudy Aviles MD Not Available 12-12-2023 Miscellaneous Notes Pt calling because the ear drops prescribed are way too expensive through insurance and [employer]. Can you call something in that is cheaper? Traci Arguello. Please advise. Dr Whaley patient I redid the order. I sent the prescription in to the pharmacy for 2 different drops. They will be 2 drops to left ear twice a day for 4 days. This will be used instead of the Ciprodex. Spoke with patient and let her know that a new script was sent to the pharmacy. [facility] 12-12-2023 Telephone encounter Note Pt calling because the ear drops prescribed are way too expensive through insurance and [employer]. Can you call something in that is cheaper? Traci Arguello. Please advise. Dr Whaley [facility] [facility] 12-12-2023 Telephone encounter Note I redid the order. I sent the prescription in to the pharmacy for 2 different drops. They will be 2 drops to left ear twice a day for 4 days. This will be used instead of the Ciprodex. [facility] 12-12-2023 Telephone encounter Note Spoke with patient and let her know that a new script was sent to the pharmacy. [facility] [employer] [facility] 12-11-2023 Note [id number] [facility] 12-11-2023 History of Presen t illness Narrative [facility] - ENT [address] [facility] [phone] SUBJECTIVE: Patient ID: Kizzy Jalloh is a [...] was seen by an ENT physician in [facility]. She has a known history of retracted [...] prior ENT records sent to us from [facility]. Scribe Statement: Scribed for and in the [...] this chart were generated using voice recognition [employer] dictation software. Although every effort was made to ensure the accuracy of this automated environmental consultant, some errors in environmental consultant may have occurred. Alexa López 12/11/23 1323 documented in this encounter [facility] 12-11-2023 Hospital Discharg e Rishabh Mims MD - 12/11/2023 5:56 AM EDT Take [...] care or concern. documented in this encounter [facility] 09-28-2023 Hospital Discharg e instructions Avelino Muse DO - 09/28/2023 11:34 AM EST Contains abnormal data COVID-19, Rapid Order: [id number] Status: Final result Visible to patient: Yes [...] this assay. Fact sheet for Healthcare Providers: https://www.fda.gov/media/17590 0/download Fact sheet for Patients: https://www.fda.gov/media/56400 1/download Methodology: Isothermal Nucleic Acid Amplification Results reported to the appropriate Health Department Resulting Agency [facility] Lab Specimen Collected: 09/28/23 11:05 EST Last Resulted: 09/28/23 11:26 EST The following attachments cannot be sent through Care Everywhere.Cough (Jordanian)Coronavirus Disease (COVID-19): General Info (Jordanian)Coronavirus Disease (COVID-19): Caring for Yourself: Quick List (Jordanian)Fever (Jordanian)documented in this encounter [facility] 09-11-2023 History of Presen t illness [...] All questions answered for the patient and minister assistant. 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 Instructions given on daily use of CHG to prevent infection. Patient voiced understanding. Patient arrived to 6A10, used eliz [employer] to assist to bathroom and then bed. Right leg is numb from mid thigh down. C/o back pain 10/20. IV infusing into RH. at bedside. Oriented to room. Call light within reach. Bed alarm turned on. 0858: patient arrived to room via bed, attached to monitor, vital signs stable, report received from OR staff and FARMWORKER ANIMAL. IV infusing via gravity. Spontaneous respirations. at [...] answered. Family updated. 1420: patient transported to [facility] via cart. going with patient. All belongings sent with patient. NPO after midnight Bring insurance info and drivers license Wear comfortable clean clothing Do not bring jewelry Shower night before and morning of surgery with a liquid antibacterial soap Bring list of medications with dosage and how often taken Follow all instructions given by your physician Stamp Mounter needed at discharge Please limit to 2 visitors for surgery You must have a responsible adult with you day of surgery and for 24 hours after surgery Call [facility] [phone] for any questions In preparation for their surgical procedure above patient was screened for Obstructive Sleep Apnea (DOLLY) using the STOP-Bang Questionnaire by the Pre-Admission Testing department. This is a pre-surgical screening tool for patient safety and serves as a recommendation, this WILL NOT cause cancellation of surgery. STOP-Bang Questionnaire * Do you currently see a nipple machine operator? No If yes STOP, do not complete. [...] to Screen Patients for Obstructive Sleep Apnea Amor LaC.P.C., Gregory Gonzales.B.B.S., Loren Hamm M.D., Samantha Stewart, Ph.D., Gregory George.B.B.S., Nathan Shahid M.Sc., Lisa Barkley M.D., Kory Andino F.R.C.P.C. Anesthesiology 2008; [phone]:812-21 Copyright 2008, the [place] [employer], [employer]. [employer] documented in this encounter [facility] 08-25-2023 Hospital course Narrative Images from the original note were not included. Hospital Medicine Discharge Summary Patient Identification: Kizzy Jalloh : 1985 Account: [id number] Patient's PCP: Lidia Lopez APRN - NP [...] BP: 102/71 106/70 Pulse: 78 63 Resp: Temp: 98.1 F (36.7 C) 97.9 F [...] DIET; Regular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 PERTAINING TO [...] BE BASED ON THE PRIMARY CLINICAL RECORDS. [facility]. provides no warranty or guarantee of the accuracy or completeness of information in this document.
== END 2024-04-24 11:25 | disposition home or self-care (01) ==
LOC: CARD 11:26
PROVIDERS: PCP Nurse Practitioner; Visit Provider Nurse Practitioner
DX: Z01.818 Encounter for other preprocedural examination (principal); M54.50 Low back pain, unspecified
CPT/HCPCS: 71046; 93005

== ENCOUNTER 2024-04-29 11:16 | Outpatient (OUT) | payer OTHER, MEDICAID, SELFPAY ==
[2024-04-29 12:19] LABS: Total Protein 8.1 g/dL (6.4-8.2)
[2024-04-30 14:10] LABS: Beta-2 Glycoprotein I Ab, IgA <9 (0-25); Beta-2 Glycoprotein I Ab, IgG <9 (0-20); Beta-2 Glycoprotein I Ab, IgM <9 (0-32)
[2024-04-30 15:09] LABS: Antithrombin Activity 142 % (75-135); Protein C-Functional 137 % (73-180); Protein S, Free 125 % (61-136); Protein S, Total 148 % (60-150)
== END 2024-04-29 11:17 | disposition home or self-care (01) ==
LOC: LAB 11:18
PROVIDERS: PCP Nurse Practitioner; Visit Provider Obstetrics & Gynecology
DX: D69.9 Hemorrhagic condition, unspecified (principal)
CPT/HCPCS: 36415; 81241; 84155; 85300; 85303; 85305; 85306; 86146

== ENCOUNTER 2024-04-29 11:21 | Outpatient (OUT) | payer OTHER, MEDICAID, SELFPAY ==
[2024-04-29 12:01] LABS: Basophils Percent Auto 0.4 % (0.2-2.0); Eosinophils Absolute Auto 0.1 10^3/uL (0.0-0.7); Eosinophils Percent Auto 1.2 % (0.9-7.0); Hematocrit 42.6 % (36.0-48.0); Hemoglobin 14.3 g/dL (12.0-16.0); Immature Granulocytes Abs Auto 0.01 10^3/uL (0.00-0.03); Immature Granulocytes Pct Auto 0.1 % (0.0-0.5); Lymphocytes Percent Auto 29.1 % (20.5-60.0); Mean Corpuscular HGB Conc 33.6 g/dL (29.9-35.2); Mean Corpuscular Hemoglobin 29.5 pg (26.7-34.0); Mean Corpuscular Volume 87.8 fL (81.0-99.0); Mean Platelet Volume 9.9 fL (9.5-13.5); Monocytes Absolute Auto 0.4 10^3/uL (0.3-0.8); Monocytes Percent Auto 5.8 % (1.7-12.0); Neutrophils Absolute Auto 4.4 10^3/uL (1.4-6.5); Neutrophils Percent Auto 63.4 % (43.0-75.0); Platelet Count 351 10^3/uL (150-450); Red Blood Count 4.85 10^6/uL (4.20-5.40); Red Cell Distribution Width 11.9 % (11.0-15.0); White Blood Count 6.9 10^3/uL (4.0-11.0)
[2024-04-29 12:09] LABS: Estimated Average Glucose 111 mg/dL; Glycohemoglobin A1C 5.5 % (4.5-6.2)
[2024-04-29 12:13] LABS: INR 1.07; Partial Thromboplastin Time 29.1 sec (22.3-36.2); Prothrombin Time 11.3 sec (9.0-11.6)
[2024-04-29 12:18] LABS: Alanine Aminotransferase 28 U/L (14-59); Albumin Globulin Ratio 1.2; Albumin Level 4.4 g/dL (3.4-5.0); Alkaline Phosphatase 96 U/L (46-116); Anion Gap 15.3; Aspartate Amino Transferase 20 U/L (15-37); BUN Creatinine Ratio 10.2; Bilirubin Total 0.8 mg/dL (0.2-1.0); Calcium 9.5 mg/dL (8.5-10.1); Carbon Dioxide 24.9 mmol/L (21.0-32.0); Chloride 101 mmol/L (98-107); Estimated GFR (African America >60 (>=60); Estimated GFR (Non-African Ame >60 (>=60); Globulin 3.7 g/dL; Glucose 105 mg/dL (74-106); Potassium 4.2 mmol/L (3.5-5.1); Sodium 137 mmol/L (136-145); Total Protein 8.1 g/dL (6.4-8.2)
[2024-04-29 12:40] LABS: Bilirubin Urine NEGATIVE (NEGATIVE); Blood Urine NEGATIVE (NEGATIVE); Clarity Urine CLEAR (CLEAR); Color Urine LT. YELLOW (YELLOW); Glucose Urine UA NEGATIVE (NEGATIVE); Ketones Urine NEGATIVE (NEGATIVE); Leukocyte Esterase Urine NEGATIVE (NEGATIVE); Nitrite Urine NEGATIVE (NEGATIVE); Protein Urine NEGATIVE (NEG/TRACE); Urobilinogen Urine 0.2 EU/dL (0.2-1.0)
[2024-04-29 12:43] LABS: Urine Microscopic Indicated NO
== END 2024-04-29 11:22 | disposition home or self-care (01) ==
LOC: LAB 11:23
PROVIDERS: PCP Nurse Practitioner; Visit Provider Nurse Practitioner
DX: Z01.818 Encounter for other preprocedural examination (principal); D69.9 Hemorrhagic condition, unspecified; Z78.9 Other specified health status; Z68.30 Body mass index [BMI] 30.0-30.9, adult
CPT/HCPCS: 36415; 80053; 81003; 81241; 83036; 84155; 85025; 85300; 85303; 85305; 85306; 85610; 85730; 86146

== ENCOUNTER 2024-06-09 11:56 | Outpatient (OUT) | payer OTHER, MEDICAID, SELFPAY ==
[2024-06-09 12:40] LABS: Estimated Average Glucose 111 mg/dL; Glycohemoglobin A1C 5.5 % (4.5-6.2)
[2024-06-09 13:33] LABS: Free T3 2.39 pg/mL (2.18-3.98); Glucose 108 mg/dL (74-106); Thyroid Stimulating Hormone 2.522 uIU/mL (0.358-3.740)
[2024-06-09 13:47] LABS: Free T4 0.87 ng/dL (0.76-1.46)
[2024-06-10 04:09] LABS: Estradiol 21.3 pg/mL (.); Progesterone 0.1 ng/mL (.); Sex Horm Binding Glob, Serum 27.1 nmol/L (24.6-122.0)
[2024-06-10 06:09] LABS: Insulin 16.8 uIU/mL (2.6-24.9)
[2024-06-10 08:12] LABS: C-Peptide, Serum 3.6 ng/mL (1.1-4.4)
[2024-06-10 17:09] LABS: Thyroglobulin Antibody <1.0 IU/mL (0.0-0.9); Thyroid Peroxidase (TPO) Ab 9 IU/mL (0-34)
[2024-06-12 11:11] LABS: Reverse T3, Serum 13.2 ng/dL (9.2-24.1)
[2024-06-12 14:13] LABS: Serotonin, Serum 153 ng/mL (31-207)
[2024-06-12 19:11] LABS: Free Testosterone(Direct) 0.6 pg/mL (0.0-4.2); Testosterone 6 ng/dL (8-60)
== END 2024-06-09 11:57 | disposition home or self-care (01) ==
LOC: LAB 11:57
PROVIDERS: PCP Nurse Practitioner; Visit Provider Obstetrics & Gynecology
DX: E34.9 Endocrine disorder, unspecified (principal)
CPT/HCPCS: 36415; 82306; 82530; 82627; 82670; 82679; 82728; 82947; 83036; 83525; 84144; 84260; 84270; 84402; 84403; 84432; 84436; 84439; 84443; 84481; 84482; 84681; 86376; 86800

== ENCOUNTER 2024-07-28 10:42 | Outpatient (OUT) | payer OTHER, MEDICAID, SELFPAY ==
--- NOTE | 2024-07-28 10:51 | XR_ITS ---
The [address] [address] Patient Name: ASHLEE JALLOH MRN: [id number] date: 1985 Sex: F Assigned Patient Location: [facility] Current Patient Location: Accession/Order Number: [id number] Exam Date: 07/28/2024 10:57 Report Date: 07/30/2024 06:52 At the request of: LIDIA LUNDBERG Procedure: XR finger LT min 2V PROCEDURE: XR finger LT min 2V HISTORY: Left Index Finger Pain ; proximal interphalangeal joint pain COMPARISON: None. FINDINGS: BONES:No fracture, acute abnormality, or significant arthropathy. SOFT TISSUES:No visible soft tissue swelling. EFFUSION:None visible. OTHER: Negative. XR/XR finger LT min 2V IMPRESSION: 1. No suspicious bone abnormality or significant degenerative changes of the second digit of the left hand. Electronically authenticated by: CINDY PINK Date: 07/30/2024 06:52
== END 2024-07-28 10:43 | disposition home or self-care (01) ==
LOC: RAD 10:44
PROVIDERS: PCP Nurse Practitioner; Visit Provider Nurse Practitioner
DX: M79.645 Pain in left finger(s) (principal)
CPT/HCPCS: 73140

== ENCOUNTER 2025-02-19 15:10 | Outpatient (REF) | payer OTHER, MEDICAID, SELFPAY ==
[2025-02-21 15:08] LABS: Age Gdln ACOG Testing Note (.); HPV Aptima Negative (Negative); IGP, Aptima HPV, rfx 16/18,45 Note (.)
== END 2025-02-19 15:11 | disposition home or self-care (01) ==
LOC: LAB 15:10
PROVIDERS: PCP Nurse Practitioner; Visit Provider Obstetrics & Gynecology
DX: Z01.419 Encounter for gynecological examination (general) (routine) without abnormal findings (principal)
CPT/HCPCS: 87624; 88175

== ENCOUNTER 2025-05-07 12:50 | Outpatient (OUT) | payer MEDICAID, SELFPAY ==
--- OUTSIDE RECORDS SUMMARY | 2025-04-02 09:50 | XMS_ITS ---
Author Organization [facility] Address [address] [place] [address] Care Team Providers Care Banjo Repair Person Name Role Phone PCP, NO Primary Care Provider Unavailabl e xxUdo-Inyang, Inyang Unavailable Self, Referral Unavailable Unavailable Lynnette Deluna Unavailable [phone] Allergies Allergen (clinical drug ingredient) Drug/Non Drug Allergy documented on EMR Reaction Allergy Type Onset Date Status adhesives (uncoded) Unknown Allergy Active nubain (uncoded) unknown, during labor in 2008 Allergy Active Silicone silicone (uncoded) Unknown Allergy A ctive Reason For Referral Reason psych eval for scs t rial Diagnosis 1 Failed back syndrome (M96.1) Referral Organization [facility] Office Referring Provider First Name Lynnette Referring Provider Last Name Regi Referring Provider Speciality Nurse Prac titioner Referred Organization [facility] Referred Address [address] [place] [address] Referred Provider Specialty Psychiatry General Notes Jose De Jesus Ascencio 02:44:10 PM > Referral Priority Routine Referral Appointment Date 04/02/2025 REASON FOR VISIT 6-8 week f/u, - Fibromyalgia diagnosis discussion and spinal cord stimulator evaluation Medications Medication SIG (Take, Route, Fr equency, Duration) Notes Start Date End Date Status NexIUM Active multivitamin Active Fish Oil Active vitamin E Active estradiol 0.5 mg 1 tab(s) orally once a day Active Mobic 15 mg 1 tab(s) orally once a day for 30 days 12/01/2024 Active magnesium glycinate Active Iron Chews Active Social History Tobacco Use: Social History Observation Description Date Details (start date - stop date) Never Smoker NA - NA Sex Assigned At : Social History Observation Description Sex Assigned At Female AUDIT-C (Standard) Question Answer Notes Did you have a drink containing alcohol in the p ast year? No Points 0 Interpretation Negative Tobacco Control (Standard) Question Answer Notes Tobacco use: Nonsmoker Problems Problem Type SNOMED Code ICD Code Onset Dates Problem Status W/U Status Risk Notes Problem [id number] Failed back syndrome (M96.1) Active confirmed Vital Signs Height 5'4 in 04/02/2025 Weight 180 lbs 04/02/2025 BMI 30.89 04/02/2025 Encounters Encounter Location Date Provider Diagnosis [facility] [address] [place], [place] [id number] 04/02/2025 Lynnette Deluna Failed back syndrome M96.1 and Fibromyalgia M79.7 Assessments Encounter Date Diagnosis (ICD Code) Assessment Notes Treatment Notes Treatment Clinical Notes Section Notes 04/02/2025 Failed back syndrome (ICD-10 - M96.1) 40-year-old female who has prior history of L4-L5 posterior spinal fusion without evidence of hardware loosening as well as prior bilateral sacroiliac joint fusion through our office was not having some low back pain with left greater than right lower extremity radiculopathy without any concern for stenosis. Her biggest reason for having pain is due to fibromyalgia and centralized pain disorder. It discussed with her that we will avoid any sort of psychiatric based medications that she has a longstanding history of psychiatric conditions with reactions to prior antidepressants . 1. Fibromyalgia - presentation with constant rather than intermittent pain pattern - Increased tactile sensitivity consistent with fibromyalgia - Pain amplification of existing structural issues 2. 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 Her biggest reason for having pain is due to fibromyalgia and centralized pain disorder. It discussed with her that we will avoid any sort of psychiatric based medications that she has a longstanding history of psychiatric conditions with reactions to prior antidepressants . 1. Fibromyalgia - presentation with constant rather than intermittent pain pattern - Increased tactile sensitivity consistent with fibromyalgia - Pain amplification of existing structural issues 2. 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 Aldridge to perform at [facility] if psychological clearance obtained - Permanent implant would require referral to [facility] if trial successful - Insurance authorization required following psychological clearance - Medical cannabis consultation recommended through family physician - Continue current Lyrica through [facility] pain management - 8-week follow-up scheduled in [place] - Patient education provided regarding fibromyalgia pathophysiology and individual variation in presentation 40-year-old female who has prior history of L4-L5 posterior spinal fusion without evidence of hardware loosening as well as prior bilateral sacroiliac joint fusion through our office was not having some low back pain with left greater than right lower extremity radiculopathy without any concern for stenosis. Her biggest reason for having pain is due to fibromyalgia and centralized pain disorder. It discussed with her that we will avoid any sort of psychiatric based medications that she has a longstanding history of psychiatric conditions with reactions to prior antidepressants . 1. Fibromyalgia - presentation with constant rather than intermittent pain pattern - Increased tactile sensitivity consistent with fibromyalgia - Pain amplification of existing structural issues 2. 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 Aldridge to perform at [facility] in [place] if psychological clearance obtained - Permanent implant would require referral to [facility] if trial successful - Insurance authorization required following psychological clearance - Medical cannabis consultation recommended through family physician - Continue current Lyrica through [facility] pain management - 8-week follow-up scheduled in [place] - Patient education provided regarding fibromyalgia pathophysiology and individual variation in presentation Referrals Referral Date Details 04/02/2025 04/02/2025, psych ev al for scs trial, [address] [place], [address], Next Appt Details Follow Up: 2 Months, Reason: Progress Notes * ASHLEE JALLOH MDOB: 5 (40 yo F)Acc No.[id number]:04/02/2025 Patient: ASHLEE VILLASENOR Provider: Donald Deluna APRN, ROLLER SETTER :1985 A ge:40 Y S ex:Female Date:04/02/2025 Address:[address] [place], [place] [id number] Pcp:NO PCP Subjective: * Chief Complaints: * 1 . 6-8 week f/u. 2. - Fibromyalgia diagnosis discussion and spinal cord stimulator evaluation. * HPI: H PI: Summary Statement -40-year-old female with prior history of L4-L5 posterior spinal fusion who has previously undergone SI joint fusion who is now having some continued pain. She has recent imaging which shows no significant stenosis. Interval Pain History - - Follow-up after Dr. Aldridge's consultation regarding likely fibromyalgia diagnosis - Watched recommended fibromyalgia educational video, expressed frustration with content feeling dismissive - Reports daily constant pain, not intermittent episodes as described in video - Pain consistently located in same anatomical areas, not migrating - Current pain level 2-3/10 when off work, escalates past 10/10 during work activities - Recently underwent hip surgery approximately 6 weeks ago, experiencing significant improvement in daily pain levels - Hip surgery addressed labral tear (12-3 o'clock position requiring 3 sutures), femoral resurfacing, and bone impingement on both sides - Reports 180-degree improvement in daily pain since hip surgery - Primary pain location:upper lumbar region extending down to lower back - Intermittent radiation down posterior legs to knees and occasionally feet when pain severe - Occasional radiation upward but uncertain if related to neck issues - Pain worsens with work activities involving bending and lifting (current job:5-10 pounds, previous job: 20-60 pounds) - Sleep disturbance:4-5 hours nightly when working, affecting pain levels - Increased skin sensitivity to light touch and sudden contact, pressure tolerance unchanged - History of back pain prior to first surgery but tolerable, significantly worsened after each of 3 back surgeries - Current back imaging shows multiple issues not requiring surgical intervention per Dr. 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 * ROS: n on-contributory with regards to cardiovascular, respiratory, GI, vascular, Endocrine with regards to safety of her management as it relates to what was discussed today. * Medical History: D epression: Yes, Mental Illness: Yes, Anxiety: Yes, Drug Allergies: Yes, , PTSD, Anemia, Cholesterol. * Surgical History: C section x2 2016, 2008, L4-5 laminectomy, discectomy 06/2021, L4-5 TLIF 11/2021, Ablation , Hysterectomy/partial , Bilateral SI jnt fusion 08/2023. * Family History: M other: diagnosed with Chronic mental illness, Alcoholism, Cancer. F ather: diagnosed with Chronic mental illness. * Social History: E xercise regularly D o you exercise? N o. W hat is your place of residence? W here do you live? P rivate apartment. A TOY-C (Standard) D id you have a drink containing alcohol in the past year? N o, P oints 0 , I nterpretation N egative. T obacco Control (Standard) T obacco use: N onsmoker. * Medications: T aking Mobic 15 mg tablet 1 tab(s) orally once a day , Taking magnesium glycinate , Taking Iron Chews , Taking vitamin E , Taking estradiol 0.5 mg tablet 1 tab(s) orally once a day , Taking NexIUM , Taking multivitamin , Taking Fish Oil , Medication List reviewed and reconciled with the patient * Allergies: N ubain: Unknown, During Labor In 2008, Silicone, Adhesives. Objective: * Vitals: H t: 5'4 , Wt: 180 lbs, BMI:30.89. * Examination: G eneral examination: - Post-operative hip surgery status, improved mobility and pain levels. Assessment: * Assessment: 1. F ronny back syndrome - M96.1 (Primary) 2 . F ibromyalgia - M79.7 ? 40-year-old female who has p rior history of L4-L5 posterior spinal fusion without evidence of hardware loosening as well as prior bilateral sacroiliac joint fusion through our office was not having some low back pain with left greater than right lower extremity radiculopathy without any concern for stenosis. Her biggest reason for having pain is due to fibromyalgia and centralized pain disorder. It discussed with her that we will avoid any sort of psychiatric based medications that she has a longstanding history of psychiatric conditions with reactions to prior antidepressants. 1. Fibromyalgia - presentation with constant rather than intermittent pain pattern - Increased tactile sensitivity consistent with fibromyalgia - Pain amplification of existing structural issues 2. 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 Plan: * Treatment: 2. O thers Notes: - Psychological evaluation required for spinal cord stimulator candidacy (insurance-specific provider, paperwork-based process) - Spinal cord stimulator trial consideration: Dr. Aldridge to perform at [facility] if psychological clearance obtained - Permanent implant would require referral to [facility] if trial successful - Insurance authorization required following psychological clearance - Medical cannabis consultation recommended through family physician - Continue current Lyrica through [facility] pain management - 8-week follow-up scheduled in [place] - Patient education provided regarding fibromyalgia pathophysiology and individual variation in presentation * Follow Up: 2 Months Forms: * Images: * Electronic signature of Trista Deluna CNP on 05/07/2025 at 12:53 PM EDT Sign off status: Pending * Provider: Donald Deluna APRN, CNP Date: 0 04/02/2025 Generated for Felix kaiser/June/Adaitting on: 0 05/07/2025 12:53 PM EDT History and Physical Notes * HPI (History of Present Illness) Category Sub-Category Detail Notes Category Not es HPI Summary Statement -40-year-old female with prior history of L4-L5 posterior spinal fusion who has previously undergone SI joint fusion who is now having some continued pain. She has recent imaging which shows no significant stenosis. Interval Pain History - - Follow-up after Dr. Aldridge's consultation regarding likely fibromyalgia diagnosis - Watched recommended fibromyalgia educational video, expressed frustration with content feeling dismissive - Reports daily constant pain, not intermittent episodes as described in video - Pain consistently located in same anatomical areas, not migrating - Current pain level 2-3/10 when off work, escalates past 10/10 during work activities - Recently underwent hip surgery approximately 6 weeks ago, experiencing significant improvement in daily pain levels - Hip surgery addressed labral tear (12-3 o'clock position requiring 3 sutures), femoral resurfacing, and bone impingement on both sides - Reports 180-degree improvement in daily pain since hip surgery - Primary pain location:upper lumbar region extending down to lower back - Intermittent radiation down posterior legs to knees and occasionally feet when pain severe - Occasional radiation upward but uncertain if related to neck issues - Pain worsens with work activities involving bending and lifting (current job:5-10 pounds, previous job: 20-60 pounds) - Sleep disturbance:4-5 hours nightly when working, affecting pain levels - Increased skin sensitivity to light touch and sudden contact, pressure tolerance unchanged - History of back pain prior to first surgery but tolerable, significantly worsened after each of 3 back surgeries - Current back imaging shows multiple issues not requiring surgical intervention per Dr. 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 - PMHx:PTSD, borderline personality disorder, manic depression, multiple back surgeries, recent hip surgery - Current medications:Lyrica (prescribed by [facility] pain management), reports minimal benefit - Cannot tolerate SSRIs due to persistent adverse reactions including prolonged dizziness and lightheadedness lasting up to 2 months - Interested in medical cannabis as treatment option - Allergies:SSRIs (adverse reactions) Examination Category Sub-Category Detail Notes Category Not es General examination - Post-o perative hip surgery status, improved mobility and pain levels Consultation Request Notes Referral Date Referring Provider Referred Provider Not es 04/02/2025 Lynnette Deluna , psych eval for scs trial
--- OUTSIDE RECORDS SUMMARY | 2025-04-30 23:59 | XMS_ITS | Continuity of Care Document ---
Author Organization [facility] Address [address] [place] [address] Care Team Providers Care Brusher Name Role Phone Sussy Lopez Primary Care Physician Encounter _[facility] [id number] Date(s): 04/30/25 - 04/30/[address] [facility] [address] [place] [phone]- Encounter Diagnosis Encounter for weight management(Discharge Diagnosis) - 04/30/25 Nonsmoker(Discharge Diagnosis) - 04/30/25 BMI 34.0-34.9,adult(Discharge Diagnosis) - 04/30/25 Discharge Disposition: Home (Routine DC) Attending Physician: Sussy Jones Encounter Type: Clinic Allergies, Adverse Reactions, Alerts Substance Criticality Severity Reaction Reaction Severity Status Nubain 1 High criticality Severe Nausea Act mariela Silicone (simethicone) obsolete High criticality Severe Hives Active 1pt states when taking it becamse dizzy and nauseated was pregant had to be rushed back to surgery. Assessment and Plan Future Appointments Appointment Date:05/28/2025 02:20:00 PM Scheduled Provider:Sussy Jones Location:[facility] Appointment Type: Open Immunizations Given and Recorded Vaccine Date Status Refusal Reason influenza virus vaccine, inactivated 07/07/22 Maxim rded influenza virus vaccine, inactivated 07/02/20 Maxim rded influenza virus vaccine, inactivated 07/14/19 Maxim rded SARS-CoV-2 (COVID-19) mRNA BNT-162b2 vax 1 6/18/21 Recorded SARS-CoV-2 (COVID-19) mRNA BNT-162b2 vax 2 02/04/21 Recorded 1Result Comment: 2023-05-18: TPVAL 2Result Comment: 2023-05-18: TPVAL Medications Adipex-P 37.5 mg Tab 37.5 mg = 1 tab(s), Oral, Daily, # 30 tab(s), Refills(s) 0, Pharmacy: [facility] [id number], 161, cm, 01/16/25 14:25:00 EDT, Height/Length Dosing, 86.3, kg, 01/16/25 14:25:00 EDT, Weight Dosing Start Date: 02/18/25 Status: Ordered Quantity: 30.0 Unit: tab(s) Repeat number: 1 Indications: Persons encountering health services in other specified circumstances; Carpal tunnel syndrome, right upper limb; naproxen 500 mg Tab 500 mg = 1 tab(s), Oral, BID, Refills(s) 0 Start Date: 05/18/23 Status: Ordered Repeat number: 1 Nexium 20 mg Cap-DR 20 mg = 1 cap(s), Oral, Daily, Refills(s) 0 Start Date: 09/25/23 Status: Ordered Repeat number: 1 phentermine 37.5 mg Tab 37.5 mg = 1 tab(s), Oral, Daily, # 30 tab(s), Refills(s) 0, Pharmacy: [facility] [id number], 161, cm, 04/30/25 13:28:00 EDT, Height/Length Dosing, 88.8, kg, 04/30/25 13:28:00 EDT, Weight Dosing Start Date: 04/30/25 Status: Ordered Quantity: 30.0 Unit: tab(s) Repeat number: 1 Indications: Body mass index [BMI] 34.0-34.9, adult; Persons encountering health services in other specified circumstances; Other specified health status; pregabalin 50 mg Cap 75 mg, Oral, TID, Refills(s) 0 Start Date: 01/16/25 Status: Ordered Repeat number: 1 Problem List Condition Confirmation Course Effective Dates Status Health Status Informant Abnormal rapid eye movement sleep Confirmed Active Allergies Confirmed Active Anemia Confirmed Active Witnessed episode of apnea Confirmed Active Angiolipoma of right kidney Confirmed Active Blisters of multiple sites Confirmed Active Right carpal tunnel syndrome Confirmed Active Cold feet Confirmed Active Daytime somnolence Confirmed Active Fluid level behind tympanic membrane of both ears Confirmed Active Flank pain Confirmed Active Hip pain Confirmed Active Hypercholesteremia Confirmed Active Brain fog Confirmed Active Low back pain Confirmed Active Low blood pressure Confirmed Active Migraine headache Confirmed Active Myringitis of left ear Confirmed Active Neck pain Confirmed Active Nonsmoker Confirmed Active Numbness of both lower extremities Confirmed Active Class 1 obesity with body mass index (BMI) of 31.0 to 31.9 in adult Confirmed Active Obstructive apnea Confirmed Active Pain in finger Confirmed Active Leg pain, bilateral Confirmed Active Tingling of right upper extremity Confirmed Active Encounter for weight management Confirmed Active Pre-op exam Confirmed Active Screening for thyroid disorder Confirmed Active Nasal septal perforation Confirmed Active Poor circulation of extremity Confirmed Active Posttraumatic stress disorder Confirmed Active PTSD (post-traumatic stress disorder) Confirmed Active Recurrent severe major depressive disorder co-occurrent with anxiety Confirmed Active Sensory disorder Confirmed Active Loud snoring Confirmed Active Vertigo Confirmed Active Weight gain Confirmed Active Procedures Procedure Date Related Diagnosis Body Site Status back 2022 Completed released ovaries from bowel, and cleaned adhesions 2022 Completed back 2020 Completed delivery 2017 Complet ed delivery Complet ed Hysterectomy partial Comp leted partial fusion of SI joint Completed Social History Social History Type Response Smoking Status Never (less than 100 in lifetime);Never; Type: Cigarettes; Concerns about tobacco use in household: No; Smoking Cessation Yes entered on: 04/30/25 Sex Female Sex Representation Female (finding) Patient Care team information Care Team Personnel Name: Charline Calderon Position: [employer]: Claims Followup Rep (Jignesh) Member Role: [employer]: Claims Followup Rep (Diversified Crops Farmer) Name: Sussy Jones Position: Ambulatory - Primary Care - SHARONDA Member Role: Primary Care Physician Address: [address] [place] [address]- Telecom: Care Team Related Persons Name: KB AGOSTO Name: KB AGOSTO Name: KB AGOSTO Insurance Providers Guarantor name: Health Plan Information #: 1 Payer: Medicaid Payer Identifier: [id number] Member Number: [id number] Group Number: [id number] Subscriber Identifier: [id number] Relationship to Subscriber: Self Coverage Type: MEDICAID Coverage Verification Date: 25 Telecom: [phone] Address: [facility] [address] [place] [address] [place]
--- OUTSIDE RECORDS SUMMARY | 2025-05-07 12:53 | XMS_ITS | Encounter Summary ---
Author Organization [facility] tem Address [id number] [address] [place] [address] Care Team Providers Care Rrts Name Role Phone Kehinde Ivey APRN-COMPLIANCE AIDE Primary Care Provider [phone] Encounter Details Date Type Department Care Team (Late st Contact Info) Description 12/12/2023 Orders Only [facility] [address] [place] [address], [address] [place] [address] Jarred Carter MD [address] [facility] [address] [place] [address] Social History Tobacco Use Types Packs/Day Years Used Date Smoking Tobacco: Never Smokeless Tobacco: Never Alcohol Use Standard Drinks/Week Comments No 0 (1 standard drink = 0.6 oz pur e alcohol) Childcare Answer Date Recorded Childcare Unknown 02/19/2019 Employment Answer Date Recorded Employment Unknown 02/19/2019 Comments No Sex and Gender Information Value Date Recorded Sex Assigned at Not on file Legal Sex Female 11:57 AM EDT Gender Identity Not on file Sexual Orientation Not on file documented as of this encounter Plan of Treatment Not on file documented as of this encounter Visit Diagnoses Not on filedocumented in this encounter Care Teams Rrts Relationship Specialty Start Date End Date Kehinde Ivey APRN-CNP [address] [place] [address] PCP - General Family Medicine 01/12/22 documented as of this encounter
--- OUTSIDE RECORDS SUMMARY | 2025-05-07 12:53 | XMS_ITS | Encounter Summary ---
Author Organization [facility] Address [address], [address] [place] [address] Care Team Providers Care Student Life Dean Name Role Phone Sussy Lopez APRN - FRANCHISE SALES DIRECTOR Primary Care Provider +1- [phone] Encounter Details Date Type Department Care Team (Late st Contact Info) Description 08/19/2021 Transcribe Orders [facility] Pre Access [address] [place] [phone] Bradly Rievrs, PAElielC [address] [place] [id number] Social History Tobacco Use Types Packs/Day Years Used Date Smoking Tobacco: Never Smokeless Tobacco: Never Alcohol Use Standard Drinks/Week Comments No 0 (1 standard drink = 0.6 oz pur e alcohol) Overall Financial Resource Strain (CARDIA) Answe r Date Recorded How hard is it for you to pa y for the very basics like food, housing, medical care, and heating? Patient declined 05/26/2021 PHQ-2 Answer Date Recorded PHQ-9 Total Score 19 05/26/2021 Hunger Vital Sign Answer Date Recorded Within the past 12 months, y ou worried that your food would run out before you got the money to buy more. Patient declined Within the past 12 months, t he food you bought just didn't last and you didn't have money to get more. Patient declined Comments No Sex and Gender Information Value Date Recorded Sex Assigned at Female 01/25/2022 7:49 AM EDT Legal Sex Female 7:39 PM EST Gender Identity Female 01/25/2022 7:49 AM EDT Sexual Orientation Straight 01/25/2022 7: 49 AM EDT documented as of this encounter Plan of Treatment Not on file documented as of this encounter Visit Diagnoses Not on filedocumented in this encounter Additional Health Concerns Infection Onset Date Last Indicated Resolved Time COVID-19 (Rule Out) 10/10/2021 10/10/2021 10/10/19 22 8:37 AM EST COVID-19 (Rule Out) 11/06/2022 11/06/2022 11/06/19 23 5:08 PM EST COVID-19 11/06/2022 11/06/2022 11/20/2022 9:27 PM EDT COVID-19 (Rule Out) 01/22/2023 01/22/2023 01/23/20 23 8:05 AM EDT COVID-19 (Rule Out) 09/28/2023 09/28/2023 09/28/19 24 11:26 AM EST COVID-19 09/28/2023 09/28/2023 10/12/2023 9:28 PM EST documented as of this encounter Care Teams Student Life Dean Relationship Specialty Start Date End Date Sussy Lopez APRN - NP [address] [place] [address] PCP - General 06/11/23 documented as of this encounter
--- OUTSIDE RECORDS SUMMARY | 2025-05-07 12:53 | XMS_ITS | Encounter Summary ---
Author Organization [facility] Address [address], [address] [place] [address] Care Team Providers Care Biology Intern Name Role Phone Sussy Lopez APRN - CIGAR TOBACCO PROCESSING SUPERVISOR Primary Care Provider +1- [phone] Encounter Details Date Type Department Care Team (Late st Contact Info) Description 08/19/2021 Transcribe Orders [facility] Pre Access [address] [place] [phone] Bradly Rivers, PAElielC [address] [place] [id number] Social History Tobacco Use Types Packs/Day Years [...] documented as of this encounter Care Teams Biology Intern Relationship Specialty Start Date End Date Sussy Lopez APRN - NP [address] [place] [address] PCP - General 06/11/23 documented as of this encounter
--- OUTSIDE RECORDS SUMMARY | 2025-05-07 12:53 | XMS_ITS | Encounter Summary ---
Author Organization [facility] Address [address], [address] [place] [address] Care Team Providers Care Hub Borer Name Role Phone Sussy Lopez APRN - PIER MASTER Primary Care Provider +1- [phone] Reason for Referral * Imaging (Routine) - Closed Specialty Diagnoses / Procedures Referred By Ronnie kaur Referred To Contact Radiology Diagnoses Left hip pain Procedures MRI HIP LEFT WO CONTRAST Bradly Parker MD [address] [facility] [place] [address] Phone: tel: fax: Referral ID Status Reason Start Date Expiration Date Visits Re quested Visits Authorized [id number] Closed 06/22/2022 06/22/2023 1 1 Encounter Details Date Type Department Care Team (Latest Contact Info) Description 06/22/2022 Transcribe Orders [facility] Pre Access [address] [place] [id number] Bradly Parker MD [address] [place] [address] Left hip pain (Primary Dx) Social History Tobacco Use Types Packs/Day Years Used Date Smoking Tobacco: Never Smokeless Tobacco: Never Alcohol Use Standard Drinks/Week Comments No 0 (1 standard drink = 0.6 oz pur e alcohol) Overall Financial Resource Strain (CARDIA) Answe r Date Recorded How hard is it for you to pa y for the very basics like food, housing, medical care, and heating? Not hard at all 06/13/2022 PHQ-2 Answer Date Recorded PHQ-9 Total Score 0 06/13/2022 Hunger Vital Sign Answer Date Recorded Within the past 12 months, y ou worried that your food would run out before you got the money to buy more. Never true 06/13/20 22 Within the past 12 months, t he food you bought just didn't last and you didn't have money to get more. Never true 06/13/2022 Comments No Sex and Gender Information Value Date Recorded Sex Assigned at Female 01/25/2022 7:49 AM EDT Legal Sex Female 7:39 PM EST Gender Identity Female 01/25/2022 7:49 AM EDT Sexual Orientation Straight 01/25/2022 7: 49 AM EDT COVID-19 Exposure Response Date Recorded In the last 10 days, have yo u been in contact with someone who was confirmed or suspected to have Coronavirus/COVID-19? No / Unsure 06/25/2022 3:34 PM EDT documented as of this encounter Plan of Treatment Not on file documented as of this encounter Results * MRI HIP LEFT WO CONTRAST (07/05/2022 3:26 PM EDT) Anatomical Region Laterality Modality Hip, Pelvis, Thigh Magnetic Reso nance 07/05/2022 4:04 PM EDT Impressions 07/06/2022 11:03 AM EDT 1. Mild bilateral hip osteoarthrosis. 2. No acute osseous abnormality. No femoral head AVN. 3. Susceptibility artifact from spinal fusion hardware in the lower lumbar spine. 4. Left acetabular labral degeneration. Narrative 07/06/2022 11:03 AM EDT EXAMINATION: MRI OF THE LEFT HIP WITHOUT CONTRAST, 07/05/2022 2:36 pm TECHNIQUE: Multiplanar multisequence MRI of the hip was performed without the administration of intravenous contrast. COMPARISON: None. HISTORY: ORDERING SYSTEM PROVIDED HISTORY: Left hip pain 37-year-old female with left hip pain. FINDINGS: BONE MARROW: Susceptibility artifact from spinal fusion hardware in the lower lumbar spine. Visualized sacral ala, iliac wings, acetabula, pubic rami, and proximal femurs demonstrate normal bone marrow signal intensity. No signal changes at the femoral heads to suggest femoral head AVN. HIP JOINT: No sizable hip joint effusions. Mild osteophyte spurring at the margins of the bilateral hip joint spaces. Both femoral heads properly located in the bilateral acetabula without clear evidence for acute fracture, dislocation or femoral head flattening. LABRUM: Left acetabular labral degeneration. BURSAE: No significant fluid in the bilateral iliopsoas or greater trochanteric bursa. SCIATIC NERVE: Proximal sciatic nerves demonstrate normal course, contour, and caliber on limited coronal T1 weighted imaging. MUSCLES / TENDONS: Visualized muscles/tendons appear grossly intact without evidence of tearing. No significant atrophy or fatty degeneration of the visualized rotator cuff musculature. INTRAPELVIC CONTENTS / SOFT TISSUES: Limited images of the intrapelvic contents demonstrate no acute abnormality. Procedure Note Gm Uribe MD - 07/06/2022 EXAMINATION: MRI OF THE LEFT HIP WITHOUT CONTRAST, 07/05/2022 2:36 pm TECHNIQUE: Multiplanar multisequence MRI of the hip was performed without the administration of intravenous contrast. COMPARISON: None. HISTORY: ORDERING SYSTEM PROVIDED HISTORY: Left hip pain 37-year-old female with left hip pain. FINDINGS: BONE MARROW: Susceptibility artifact from spinal fusion hardware in thelower lumbar spine. Visualized sacral ala, iliac wings, acetabula, pubic rami, and proximal femurs demonstrate normal bone marrow signal intensity. No signal changes at the femoral heads to suggest femoral head AVN. HIP JOINT: No sizable hip joint effusions. Mild osteophyte spurring at the margins of the bilateral hip jointspaces. Both femoral heads properly located in the bilateral acetabula withoutclear evidence for acute fracture, dislocation or femoral head flattening. LABRUM: Left acetabular labral degeneration. BURSAE: No significant fluid in the bilateral iliopsoas or greater trochanteric bursa. SCIATIC NERVE: Proximal sciatic nerves demonstrate normal course,contour, and caliber on limited coronal T1 weighted imaging. MUSCLES / TENDONS: Visualized muscles/tendons appear grossly intactwithout evidence of tearing. No significant atrophy or fatty degeneration of the visualized rotatorcuff musculature. INTRAPELVIC CONTENTS / SOFT TISSUES: Limited images of the intrapelvic contents demonstrate no acute abnormality. IMPRESSION: 1. Mild bilateral hip osteoarthrosis. 2. No acute osseous abnormality. No femoral head AVN. 3. Susceptibility artifact from spinal fusion hardware in the lowerlumbar spine. 4. Left acetabular labral degeneration. us Bradly Parker MD IMG MRI ORDERABLES Final Re sult documented in this encounter Visit Diagnoses Diagnosis Left hip pain- Primary Pain in joint, pelvic region and thigh Left hip pain Pain in joint, pelvic region and thigh documented in this encounter Additional Health Concerns Infection Onset Date Last Indicated Resolved Time COVID-19 (Rule Out) 11/06/2022 11/06/2022 11/06/19 5:08 PM EST COVID-19 11/06/2022 11/06/2022 11/20/2022 9:27 PM EDT COVID-19 (Rule Out) 01/22/2023 01/22/2023 01/23/20 23 8:05 AM EDT COVID-19 (Rule Out) 09/28/2023 09/28/2023 09/28/19 24 11:26 AM EST COVID-19 09/28/2023 09/28/2023 10/12/2023 9:28 PM EST documented as of this encounter Care Teams Hub Borer Relationship Specialty Start Date End Date Sussy Lopez APRN - KAROLYN [address] [place] [address] PCP - General 06/11/23 documented as of this encounter
--- OUTSIDE RECORDS SUMMARY | 2025-05-07 12:53 | XMS_ITS | Encounter Summary ---
Author Organization [facility] Address [address] [place] [address] Care Team Providers Care Manager Social Work Name Role Phone Unavailable Primary Care Provider Unavailabl e Encounter Details Date Type Department Care Team (Late st Contact Info) Description 03/09/2025 Abstract [facility] [address] [place] [place] [address] Tori Farmer PA [address] [place], [facility] Social History Tobacco Use Types Packs/Day Years Used Date Smoking Tobacco: Never Smokeless Tobacco: Never Alcohol Use Standard Drinks/Week Comments Never 0 (1 standard drink = 0.6 oz pur e alcohol) Comments No Sex and Gender Information Value Date Recorded Sex Assigned at Not on file Legal Sex Female 11:47 PM EDT Gender Identity Female 03/26/2023 3:08 PM EDT Sexual Orientation Not on file documented as of this encounter Plan of Treatment Upcoming Encounters Date Type Department Care Team (Late Contact Info) Description 03/01/2026 11:00 AM EDT Office Visit [facility] [address] [place] [address] Tommie Mccann DO [address] [place], [place] [address] documented as of this encounter Visit Diagnoses Not on filedocumented in this encounter
--- OUTSIDE RECORDS SUMMARY | 2025-05-07 12:53 | XMS_ITS | Encounter Summary ---
Author Organization [facility] Address [address] [place] [address] Care Team Providers Care Material Control Clerk Name Role Phone Unavailable Primary Care Provider Unavailabl e Encounter Details Date Type Department Care Team (Late Contact Info) Description 02/27/2025 Orders Only [facility] [address] [place] [address] [place] [phone] Stacie Espinosa [place] [address] [place] [address] Social History Tobacco Use Types Packs/Day Years [...] Description 03/01/2026 11:00 AM EDT Office Visit [facility] [address] [place] [address] [place] [phone] Tommie Mccann DO [address] [facility] [address] [place] [address] documented as of this encounter Procedures Procedure Name Priority Date/Time Associated Diagnosis Comments PAP SMEAR Routine 02/19/2025 12:00 AM EDT documented in this encounter Results * Pap Smear (02/19/2025 12:00 AM EDT) Swab Cervical swab / Unknown us Tommie Mccann DO LAB CYTOLOGY ORDERABLES Final Re sult EXTERNAL LAB documented in this encounter Visit Diagnoses Not on filedocumented in this encounter
--- OUTSIDE RECORDS SUMMARY | 2025-05-07 12:53 | XMS_ITS | Encounter Summary ---
Author Organization [facility] Address [address] [place] [address] Care Team Providers Care Cat Scan Tech Name Role Phone Unavailable Primary Care Provider Unavailabl e Encounter Details Date Type Department Care Team (Late Contact Info) Description 06/18/2023 Abstract [facility] [address] [place] [address] Tori Farmer PA [address] [place], [place] [address] Social History Tobacco Use Types Packs/Day Years [...] PM EDT Sexual Orientation Not on file COVID-19 Exposure Response Date Recorded In the last 10 days, have yo u been in contact with someone who was confirmed or suspected to have Coronavirus/COVID-19? No / Unsure 06/18/2023 9:36 AM EDT documented as of this encounter Plan of Treatment Upcoming Encounters Date Type Department Care Team (Late Contact Info) Description 03/01/2026 11:00 AM EDT Office Visit [facility] [address] [place] [address] Siobhan, Tommie, [address] [place] [address] documented as of this encounter Visit Diagnoses Not on filedocumented in this encounter
--- OUTSIDE RECORDS SUMMARY | 2025-05-07 12:53 | XMS_ITS | Encounter Summary ---
Author Organization [facility] tem Address [id number] [address] [place] [address] Care Team Providers Care Tallier Name Role Phone Kehinde Ivey APRN-HERNANDEZ Primary Care Provider +1 -[phone] Encounter Details Date Type Department Care Team (Late st Contact Info) Description 01/09/[address] [facility] - ENT [address] [place] [address], [address] [place] [phone] Jarred Carter MD [address] [place] [address] Social History Tobacco Use Types Packs/Day Years Used Date Smoking Tobacco: Never Passive Smoke Exposure: Never Smokeless Tobacco: Never Alcohol Use Standard [...] on file documented as of this encounter Procedures Procedure Name Priority Date/Time Associated Diagnosis Comments COMPREHENSIVE HEARING TEST Routine 01/09/2024 11:00 AM EDT documented in this encounter Visit Diagnoses Not on filedocumented in this encounter Care Teams Tallier Relationship Specialty Start Date End Date Kehinde Ivey APRN-CNP [address] [place] [address] PCP - General Family Medicine 01/12/22 documented as of this encounter
--- OUTSIDE RECORDS SUMMARY | 2025-05-07 12:53 | XMS_ITS | Encounter Summary ---
Author Organization [facility] Address [address] [place] [address] Care Team Providers Care Choke Reamer Name Role Phone Unavailable Primary Care Provider Unavailabl e Encounter Details Date Type Department Care Team (Late st Contact Info) Description 03/09/2025 Abstract [facility] [place] [address] Tommie Mccann DO [address] [place], [facility] Social History Tobacco Use Types Packs/Day Years [...] Description 03/01/2026 11:00 AM EDT Office Visit [facility] [address] [place], [place] [address] [phone] Tommie Mccann DO [address], [place] [phone] documented as of this encounter Visit Diagnoses Not on filedocumented in this encounter
--- OUTSIDE RECORDS SUMMARY | 2025-05-07 12:53 | XMS_ITS | Encounter Summary ---
Author Organization [facility] Address [address], [address] [place] [address] Care Team Providers Care Criminal Justice Teacher Name Role Phone Sussy Lopez APRN - FLOW MACHINE OPERATOR Primary Care Provider +1- [phone] Reason for Referral * Imaging (Routine) - Closed Specialty Diagnoses / Procedures Referred By Ronnie kaur Referred To Contact Radiology Diagnoses Lumbar radiculopathy Arthrodesis status Degenerative disc disease at L5-S1 level Procedures CT LUMBAR SPINE WO CONTRAST Tere Rubio PA-C Referral ID Status Reason Start Date Expiration Date Visits Re quested Visits Authorized [id number] Closed 03/23/2023 03/22/2024 1 1 Encounter Details Date Type Department Care Team (Latest Contact Info) Description 03/23/2023 Transcribe Orders [facility] Pre Access [address] [place] [id number] Tere Rubio PA-C Lumbar radiculopathy (Primary Dx); Arthrodesis status; Degenerative disc disease at L5-S1 level Social History Tobacco Use Types Packs/Day Years Used Date Smoking Tobacco: Never Smokeless Tobacco: Never Alcohol Use Standard Drinks/Week Comments No 0 (1 standard drink = 0.6 oz pur e alcohol) AUDIT-C Answer Date Recorded Q1: How often do you have a drink containing alc ohol? Never 03/15/2023 Average Number of Drinks Not on file 023 Frequency of Binge Drinking Not on file 070 02/2023 Overall Financial Resource Strain (CARDIA) Answe r Date Recorded How hard is it for you to pa y for the very basics like food, housing, medical care, and heating? Patient declined 02/22/2023 PHQ-2 Answer Date Recorded PHQ-9 Total Score 0 02/22/2023 Hunger Vital Sign Answer Date Recorded Within the past 12 months, y ou worried that your food would run out before you got the money to buy more. Patient declined Within the past 12 months, t he food you bought just didn't last and you didn't have money to get more. Patient declined PRAPARE - Transportation Answer Date Re corded Lack of Transportation (Medical) Not on file 02/22/2023 In the past 12 months, has l ack of transportation kept you from meetings, work, or from getting things needed for daily living? Patient declined 02/22/2023 Housing Stability Vital Sign Answer Lucas e Recorded Unable to Pay for Housing in the Last Year Not o n file 02/22/2023 Number of Places Lived in the Last Year Not on f ile 02/22/2023 In the last 12 months, was t here a time when you did not have a steady place to sleep or slept in a senior living (including now)? Patient refused 02/22/2023 Food Insecurity Answer Date Recorded Within the past 12 months, y ou worried that your food would run out before you got the money to buy more. 98 02/22/2023 Within the past 12 months, t he food you bought just didn't last and you didn't have money to get more. 98 02/22/2023 Comments No Sex and Gender Information Value Date Recorded Sex Assigned at Female 01/25/2022 7:49 AM EDT Legal Sex Female 7:39 PM EST Gender Identity Female 01/25/2022 7:49 AM EDT Sexual Orientation Straight 01/25/2022 7: 49 AM EDT documented as of this encounter Plan of Treatment Scheduled Orders Name Type Priority Associated Diagnoses Orde r Schedule CT LUMBAR SPINE WO CONTRAST Imaging Routine Lumbar radiculopathy Arthrodesis status Degenerative disc disease at L5-S1 level Expected: 03/23/2023, Expires: 03/23/2024 documented as of this encounter Visit Diagnoses Diagnosis Lumbar radiculopathy- Primary Thoracic or lumbosacral neuritis or radiculitis, unspecified Arthrodesis status Degenerative disc disease at L5-S1 level documented in this encounter Additional Health Concerns Infection Onset Date Last Indicated Resolved Time COVID-19 (Rule Out) 09/28/2023 09/28/2023 09/28/19 11:26 AM EST COVID-19 09/28/2023 09/28/2023 10/12/2023 9:28 PM EST documented as of this encounter Care Teams Criminal Justice Teacher Relationship Specialty Start Date End Date Sussy Lopez APRN - KAROLYN [address] [place] [address] PCP - General 06/11/23 documented as of this encounter
--- OUTSIDE RECORDS SUMMARY | 2025-05-07 12:53 | XMS_ITS | Encounter Summary ---
Author Organization [facility] Address [address] [facility] [address], [address] [place] [address] Care Team Providers Care Laborer Bituminous Paving Name Role Phone Sussy Lopez APRN - LOCATION MAN Primary Care Provider +1- [phone] Encounter Details Date Type Department Care Team (Late st Contact Info) Description 08/19/2021 Transcribe Orders [facility] Pre Access [address] [place] [phone] Bradly Rivers, PAElielC [address] [place] [id number] Social History Tobacco Use Types Packs/Day Years [...] documented as of this encounter Care Teams Laborer Bituminous Paving Relationship Specialty Start Date End Date Sussy Lopez APRN - NP [address] [place] [address] PCP - General 06/11/23 documented as of this encounter
--- OUTSIDE RECORDS SUMMARY | 2025-05-07 12:53 | XMS_ITS | Encounter Summary ---
Author Organization [facility] Address [address], [address] [place] [address] Care Team Providers Care Commercial Technician Name Role Phone Sussy Lopez APRN - UPHOLSTERY DEPARTMENT SUPERVISOR Primary Care Provider +1- [phone] Reason for Referral * Imaging (Routine) - Closed Specialty Diagnoses / Procedures Referred By Contac t Referred To Contact Radiology Diagnoses SI (sacroiliac) joint dysfunction Procedures CT PELVIS WO CONTRAST Additional Contrast? None [facility] [address] [place], [place] [id number] Phone: tel: Referral ID Status Reason Start Date Expiration Date Visits Re quested Visits Authorized [id number] Closed 06/11/2023 06/04/2024 1 1 Encounter Details Date Type Department Care Team (Latest Contact Info) Description 06/05/2023 Transcribe Orders [facility] [address] [place], [place] [phone] Patricio Aldridge MD [facility] [place] [address] SI (sacroiliac) joint dysfunction (Primary Dx) Social History Tobacco Use Types [...] Frequency of Binge Drinking Not on file 02/2023 Overall Financial Resource Strain (CARDIA) Answe [...] place to sleep or slept in a group home (including now)? Patient refused 02/22/2023 Food Insecurity [...] documented as of this encounter Results * CT PELVIS WO CONTRAST Additional Contrast? None (06/15/2023 10:02 AM EDT) Anatomical Region Laterality Modality Abdomen, Pelvis, Hip Computed To mography 06/15/2023 10:1 2 AM EDT Impressions 06/15/2023 11:11 AM EDT 1. Prior spinal fusion L4-L5. 2. No acute osseous abnormality evident by CT. 3. Bilateral SI joints appear patent without SI joint fusion or erosive change. 4. 4.6 x 3.0 cm left adnexal cyst. Further evaluation with pelvic ultrasound recommended. 5. Mild nonspecific edema and fluid in the subcutaneous fat of the midline lower abdomen/upper pelvis. Narrative 06/15/2023 11:11 AM EDT EXAMINATION: CT OF THE PELVIS WITHOUT CONTRAST [...] Bilateral hip joint spaces are well maintained. Procedure Note Gm Uribe MD - 06/15/2023 EXAMINATION: CT OF THE PELVIS WITHOUT CONTRAST 06/15/2023 10:02 am TECHNIQUE: CT of the pelvis was performed without the administration of intravenous contrast. Multiplanar reformatted images are provided for review. Adjustment of mA and/or kV according to patient size was utilized.Automated exposure control, iterative reconstruction, and/or weight based adjustmentof the mA/kV was utilized to reduce the radiation dose to as low asreasonably achievable. COMPARISON: Pelvic ultrasound from 03/15/2023. HISTORY ORDERING SYSTEM PROVIDED HISTORY: SI (sacroiliac) joint dysfunction TECHNOLOGIST PROVIDED HISTORY: Is the patient ?->No 38-year-old female with SI joint dysfunction. FINDINGS: Bones: Prior spinal fusion at L4-L5 with intervertebral cage device.Mild degenerative change at L5-S1. No obvious coccygeal deformity. No CT evidence for acute fracture or dislocation. Soft Tissue: Mild edema and fluid in the subcutaneous fat of the midline lower abdomen/upper pelvis. 4.6 x 3.0 cm left adnexal cyst on [id number], series 4. Nondistended urinary bladder. Pelvic phleboliths. Joint: Bilateral SI joints appear patent. No SI joint fusion or erosive change. Both femoral heads properly located in the bilateral acetabula withoutclear evidence for acute fracture, dislocation or femoral head flattening.Mild degenerative changes of the pubic symphysis. Bilateral hip joint spacesare well maintained. IMPRESSION: 1. Prior spinal fusion L4-L5. 2. No acute osseous abnormality evident by CT. 3. Bilateral SI joints appear patent without SI joint fusion or erosive change. 4. 4.6 x 3.0 cm left adnexal cyst. Further evaluation with pelvicultrasound recommended. 5. Mild nonspecific edema and fluid in the subcutaneous fat of themidline lower abdomen/upper pelvis. us Patricio Aldridge MD IMG CT ORDERABLES Final Result documented in this encounter Visit Diagnoses Diagnosis SI (sacroiliac) joint dysfunction- Primary Disorders of sacrum SI (sacroiliac) joint dysfunction Disorders of sacrum documented in this encounter Additional Health Concerns Infection Onset Date Last Indicated Resolved Time COVID-19 (Rule Out) 09/28/2023 09/28/2023 09/28/19 24 11:26 AM EST COVID-19 09/28/2023 09/28/2023 10/12/2023 9:28 PM EST documented as of this encounter Care Teams Commercial Technician Relationship Specialty Start Date End Date Sussy Lopez APRN - UPHOLSTERY DEPARTMENT SUPERVISOR [address] [place] [id number] PCP - General 06/11/23 documented as of this encounter
--- OUTSIDE RECORDS SUMMARY | 2025-05-07 12:53 | XMS_ITS | Encounter Summary ---
Author Organization [facility] Address [address], [address] [place] [address] Care Team Providers Care Case Coordinator Name Role Phone Sussy Lopez APRN - AIR LIAISON AND SPECIAL STAFF Primary Care Provider [phone]- [phone] Encounter Details Date Type Department Care Team (Latest Contact Info) Description 08/19/2021 Transcribe Orders [facility] [address] [place] [id number] Elaine Dorsey Lumbar pain (Primary Dx); Radiculopathy, lumbar region Social History Tobacco Use Types Packs/Day Years [...] of this encounter Visit Diagnoses Diagnosis Lumbar pain- Primary Lumbago Radiculopathy, lumbar region Thoracic or lumbosacral neuritis or radiculitis, unspecified documented in this encounter Additional Health Concerns [...] documented as of this encounter Care Teams Case Coordinator Relationship Specialty Start Date End Date Sussy Lopez APRN - NP [address] [phone] PCP - General 06/11/23 documented as of this encounter
--- OUTSIDE RECORDS SUMMARY | 2025-05-07 12:53 | XMS_ITS | Encounter Summary ---
Author Organization [facility] Address [address] [place] [address] Care Team Providers Care Shearer Operator Name Role Phone Unavailable Primary Care Provider Unavailabl e Encounter Details Date Type Department Care Team (Late st Contact Info) Description 06/18/2024 Abstract [facility] [address] [place] [address] Rbeeca Holloway LPN Social History Tobacco Use Types Packs/Day Years [...] Encounters Date Type Department Care Team (Late st Contact Info) Description 03/01/2026 11:00 AM EDT Office Visit [facility] [address] [facility] [place] [address] Tommie Mccann DO [address] [place], [place] [phone] documented as of this encounter Visit Diagnoses Not on filedocumented in this encounter
--- OUTSIDE RECORDS SUMMARY | 2025-05-07 12:53 | XMS_ITS | Encounter Summary ---
Author Organization [facility] Address [address] [place] [address] Care Team Providers Care Manager Portable Name Role Phone Unavailable Primary Care Provider Unavailabl e Reason for Visit * Reason Onset Date Comments Med Refill 04/27/2025 Encounter Details Date Type Department Care Team (Late st Contact Info) Description 04/27/2025 Refill [facility] [address] [facility] [place] [phone] Stacie Espinosa MA [address] [facility] [place] [address] Social History Tobacco Use Types Packs/Day Years [...] 11:00 AM EDT Office Visit [facility] [address] [facility] [place] [phone] Tommie Mccann DO [address] [facility] [place] [address] documented as of this encounter Visit Diagnoses Not on filedocumented in this encounter
--- OUTSIDE RECORDS SUMMARY | 2025-05-07 12:53 | XMS_ITS | Encounter Summary ---
Author Organization [facility] Address [address], [address] [place] [address] Care Team Providers Care Camp Housekeeper Name Role Phone Sussy Lopez APRN - CHANNEL PROCESS SUPERVISOR Primary Care Provider [phone]- [phone] Reason for Referral * Imaging (Routine) - Closed Specialty Diagnoses / Procedures Referred By Ronnie t Referred To Contact Radiology Diagnoses Otorrhea of right ear Conductive hearing loss of right ear, unspecified hearing status on contralateral side H92.11 (ICD-10-CM) - Otorrhea of right ear Procedures CT IAC POSTERIOR FOSSA WO CONTRAST LA CT SCAN,ORBIT/SELLA/POST FOSSA/EAR,W/O [address] - LA CT SCAN,ORBIT/SELLA/POST FOSSA/EAR,W/O Missy Sims PA-C [address] [place] [address] Phone: tel: fax: Referral ID Status Reason Start Date Expiration Date Visits Re quested Visits Authorized [id number] Closed 07/18/2022 07/18/2023 1 1 Encounter Details Date Type Department Care Team (Latest Contact Info) Description 07/18/2022 Transcribe Orders [facility] [address] [phone] Missy Sims PA-C [address] [place] [address] Otorrhea of right ear (Primary Dx); Conductive hearing loss of right ear, unspecified hearing status on contralateral side Social History Tobacco Use Types Packs/Day Years [...] as of this encounter Results * CT IAC POSTERIOR FOSSA WO CONTRAST (08/08/2022 7:25 PM EST) Anatomical Region Laterality Modality Head Computed Tomogra phy 08/08/2022 7:26 PM EST Impressions 08/09/2022 11:05 AM EST Unremarkable appearance of the temporal bones. Narrative 08/09/2022 11:05 AM EST EXAMINATION: CT OF THE INTERNAL AUDITORY CANAL WITHOUT CONTRAST 08/08/2022 7:19 pm: TECHNIQUE: CT of the internal auditory canal was performed without contrast was performed without the administration of intravenous contrast. Multiplanar reformatted images are provided for review. Automated exposure control, iterative reconstruction, and/or weight based adjustment of the mA/kV was utilized to reduce the radiation dose to as low as reasonably achievable. COMPARISON: None. HISTORY: ORDERING SYSTEM PROVIDED HISTORY: Otorrhea of right ear TECHNOLOGIST PROVIDED HISTORY: Is the patient ?->No FINDINGS: RIGHT TEMPORAL BONE: The external auditory canal is clear without evidence of bony erosion. The scutum is intact. The middle ear cavity is clear. The ossicular chain is intact. The mastoid air cells are clear. The inner ear structures appear unremarkable. Normal mineralization of the otic capsule. The internal auditory canal and vestibular aqueduct appear unremarkable. The carotid canal is normal in appearance. The jugular bulb is unremarkable. LEFT TEMPORAL BONE: The external auditory canal is clear without evidence of bony erosion. The scutum is intact. The middle ear cavity is clear. The ossicular chain is intact. The mastoid air cells are clear. The inner ear structures appear unremarkable. Normal mineralization of the otic capsule. The internal auditory canal and vestibular aqueduct appear unremarkable. The carotid canal is normal in appearance. The jugular bulb is unremarkable. BRAIN: The visualized portion of the intracranial contents appear unremarkable. ORBITS: The visualized portion of the orbits demonstrate no acute abnormality. SINUSES: There is minimal chronic sinusitis in the maxillary sinuses inferiorly. Procedure Note Juan Walker MD - 08/09/2022 EXAMINATION: CT OF THE INTERNAL AUDITORY CANAL WITHOUT CONTRAST 08/08/2022 7:19 pm: TECHNIQUE: CT of the internal auditory canal was performed without contrast was performed without the administration of intravenous contrast.Multiplanar reformatted images are provided for review. Automated exposure control, iterative reconstruction, and/or weight based adjustment of the mA/kVwas utilized to reduce the radiation dose to as low as reasonablyachievable. COMPARISON: None. HISTORY: ORDERING SYSTEM PROVIDED HISTORY: Otorrhea of right ear TECHNOLOGIST PROVIDED HISTORY: Is the patient ?->No FINDINGS: RIGHT TEMPORAL BONE: The external auditory canal is clear withoutevidence of bony erosion. The scutum is intact. The middle ear cavity is clear.The ossicular chain is intact. The mastoid air cells are clear. The innerear structures appear unremarkable. Normal mineralization of the oticcapsule. The internal auditory canal and vestibular aqueduct appear unremarkable.The carotid canal is normal in appearance. The jugular bulb isunremarkable. LEFT TEMPORAL BONE: The external auditory canal is clear without evidenceof bony erosion. The scutum is intact. The middle ear cavity is clear.The ossicular chain is intact. The mastoid air cells are clear. The innerear structures appear unremarkable. Normal mineralization of the oticcapsule. The internal auditory canal and vestibular aqueduct appear unremarkable.The carotid canal is normal in appearance. The jugular bulb isunremarkable. BRAIN: The visualized portion of the intracranial contents appear unremarkable. ORBITS: The visualized portion of the orbits demonstrate no acuteabnormality. SINUSES: There is minimal chronic sinusitis in the maxillary sinuses inferiorly. IMPRESSION: Unremarkable appearance of the temporal bones. Missy Sims PA-C IMAlok CT ORDERABLES Final Resu lt documented in this encounter Visit Diagnoses Diagnosis Otorrhea of right ear- Primary Otorrhea, unspecified Conductive hearing loss of right ear, unspecified hearing status on contralateral side Otorrhea of right ear Otorrhea, unspecified Conductive hearing loss of right ear, unspecified hearing status on contralateral side documented in this encounter Additional Health Concerns Infection Onset Date Last Indicated Resolved Time COVID-19 (Rule Out) 11/06/2022 11/06/2022 11/06/19 23 5:08 PM EST COVID-19 11/06/2022 11/06/2022 11/20/2022 9:27 PM EDT COVID-19 (Rule Out) 01/22/2023 01/22/2023 01/23/20 23 8:05 AM EDT COVID-19 (Rule Out) 09/28/2023 09/28/2023 09/28/19 24 11:26 AM EST COVID-19 09/28/2023 09/28/2023 10/12/2023 9:28 PM EST documented as of this encounter Care Teams Camp Housekeeper Relationship Specialty Start Date End Date Sussy Lopez APRN - NP [address] [place] [address] PCP - General 06/11/23 documented as of this encounter
--- OUTSIDE RECORDS SUMMARY | 2025-05-07 12:53 | XMS_ITS | Clinical Summary ---
Author Organization [facility] Address [address] [place] [address] Care Team Providers Care Cosmetics Demonstrator Name Role Phone Kehinde Ivey CNP Primary Care Provider [phone] Allergies Active Allergy Reactions Criticality Noted Date Comments Nalbuphine Nausea and Vomiting 04/11/2022 Medications esomeprazole [address] capsule 1 cap(s) Active naproxen 500 MG tablet Take 1 tablet by mouth. 04/06/2022 Active rOPINIRole 0.5 MG tablet Take 1 tablet by mouth at bedtime. 02/16/2022 Active Ubrogepant (Ubrelvy) 100 MG tablet 1 tab(s) 04/06/2022 Active Estradiol 0.5 MG tablet Take 1 tablet by mouth daily. 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 Adnexal cyst 09/11/2023 long-term current use of non -steroidal anti-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 (NSAID) 09/11/2023 Chondromalacia of left knee 04/11/2022 Degeneration of lumbosacral intervertebral disc 04/11/2022 Displacement of lumbar inter vertebral disc without myelopathy 04/11/2022 Lumbar radiculopathy 04/11/2022 Lumbosacral stenosis 04/11/2022 Lumbar pain 04/11/2022 Pain in left knee 04/11/2022 Obesity (BMI 30.0-34.9) 04/11/2022 Chronic bilateral thoracic back pain 04/06/2022 Large breasts 04/06/2022 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 Elevated fasting glucose 02/16/2022 Dysthymia 05/26/2021 PTSD (post-traumatic stress disorder) 05/26/2021 Abdominal pain 08/28/2018 Acute non intractable tension-type headache 08/10 Chronic fatigue 08/28/2018 Overuse syndrome 04/12/2018 Strain of back 04/12/2018 Threatened labor 04/28/2017 Resolved Problems Problem Noted Date Diagnosed Date Resolved Date Disorder of bone and cartilage 09/11/2023 09/11/2023 History of ankylosing spondylitis 09/11/2023 09/11/2023 Immunizations Immunization Administration Dates Next Due Influenza Vaccine, Quadrivalent MDCK PF 07/02/20 influenza, injectable, quadrivalent 07/14/2019 Family History Medical History Relation Name Comments Breast Cancer Mother Relation Name Status Comments Mother Social History Tobacco Use Types Packs/Day Years Used Date Smoking Tobacco: Never Smokeless Tobacco: Never Alcohol Use Standard Drinks/Week Comments Not Currently 0 (1 standard drink = 0.6 oz pur e alcohol) Comments Unknown Sex and Gender Information Value Date Recorded Sex Assigned at Not on file Legal Sex Female 1:51 PM EDT Gender Identity Not on file Sexual Orientation Not on file Last Filed Vital Signs Vital Sign Reading Time Taken Comments Blood Pressure 124/82 09/11/2023 9:16 AM EST Pulse 88 09/11/2023 9:16 AM EST Temperature 36.1 C (97 F) 09/11/2023 9:16 AM EST Respiratory Rate - - Oxygen Saturation 98% 09/11/2023 9:16 AM EST Inhaled Oxygen Concentration - - Weight 87.5 kg (193 lb) 09/11/2023 9:16 AM EST Height 162.6 cm (5' 4 ) 09/11/2023 9:16 AM EST Body Mass Index 33.13 09/11/2023 9:16 AM EST Plan of Treatment Health Maintenance Due Date Last Done Comments HEPATITIS C VIRUS SCREENING 1985 TETANUS 1985 HIV SCREENING DISCUSSION 01/09/2000 HEP B VACCINE (1 of 3 - 19+ 3-dose series) 01/09/2004 PNEUMOCOCCAL VACCINE SERIES (1 of 2 - PCV) 01/09/2004 TDAP (ADULT) 01/09/2004 ZOSTER (SHINGLES) VACCINE (1 of 2) 01/09/2004 CERVICAL CANCER SCREENING DISCUSSION 2006 HPV VACCINE (1 - 3-dose SCDM series) 01/09/2012 COVID-19 VACCINE (3 - Pfizer risk series) 03/25/2021 02/25/2021, 02/04/2021 LIPID SCREENING 2025 MAMMOGRAM SCREENING DISCUSSION 2025 INFLUENZA VACCINE (#1) 2025 , 07/02/2020, 07/14/2019 Insurance * Guarantor: Ashlee Mercer Account Type Relation to Patient Date of Phone Billing Address Personal/Family Self [address] [place], [place] [id number] [place] Care Teams Cosmetics Demonstrator Relationship Specialty Start Date End Date Kehinde Ivey CNP [address] [place] [address] PCP - General Certified Nurse Practitioner 04/11/22
--- OUTSIDE RECORDS SUMMARY | 2025-05-07 12:53 | XMS_ITS | Encounter Summary ---
Author Organization [facility] [employer] [facility] tem Address [id number] [place] [address] Care Team Providers Care Final Tester Name Role Phone UcheKehinde Josefa STACYN-EVENTS SOLUTIONS CONSULTANT Primary Care Provider [phone] Reason for Visit * Reason Onset Date Comments Fluid in right ear, pain in left ear, throbbing in left ear 12/20/2023 Encounter Details Date Type Department Care Team ([facility] st Contact Info) Description 12/20/2023 Telephone [facility] - ENT [address] [place] [address], [address] [place] [phone] Jarred Carter MD [address] [place] [address] [address] [place] [address] Fluid in right ear, pain in left ear, throbbing in left ear Social History Tobacco Use Types Packs/Day Years [...] on file documented as of this encounter Miscellaneous Notes * Telephone Encounter - Cecilia Anandyder - 12/20/2023 11:31 AM EDT Patient called 12/20/23. Patient seen PCP 12/19 and they said patient has fluid in right ear, pain inleft ear, throbbing in left ear.PCP did not prescribe medication. Patient works second shift so please leave a msg. Patient of Dr. Carter. * Telephone Encounter - Analy Malone RN - 12/20/2023 11:[address] Carter please see below * Telephone Encounter - Jarred Carter MD - 12/20/2023 11:31 AM EDT I saw the patient last week and I would follow my recommendations. See me back as scheduled. At thetime I saw her I prescribed Ciprodex drops for the left ear. * Telephone Encounter - Analy Malone RN - 12/20/2023 11:31 AM EDT Can someone please relay Dr. Carter's message to the patient. * Telephone Encounter - Billie Mckeon CMA - 12/20/2023 11:31 AM EDT Good Morning, Called patient and advised patient to follow Dr. Carter's previous instructions that were provided at patient's last visit. Advised patient to continue applying 4 drops of Ciprodex to Left ear BID until patient's Recheck appointment scheduled on 01/09/2024. Patient: Kizzy Mercer understands and agrees. Billie Mckeon CMA documented in this encounter Plan of Treatment Not on file documented as of this encounter Visit Diagnoses Not on filedocumented in this encounter Care Teams Final Tester Relationship Specialty Start Date End Date Uche, Kehinde [place], TOWER TECHNICIAN-EVENTS SOLUTIONS CONSULTANT [address] [facility] [address] [place] [phone] PCP - General Family Medicine 01/12/22 documented as of this encounter
--- OUTSIDE RECORDS SUMMARY | 2025-05-07 12:53 | XMS_ITS | Encounter Summary ---
Author Organization [facility] Address [address] [place] [address] Care Team Providers Care Land Leasing Examiner Name Role Phone Unavailable Primary Care Provider Unavailabl e Encounter Details Date Type Department Care Team (Late st Contact Info) Description 05/05/2025 Telephone [facility] [address] [place] [phone] Tommie Mccann DO [address] [place] [address] Social History Tobacco Use Types Packs/Day Years [...] encounter Miscellaneous Notes * Telephone Encounter - Sangeeta Prakash LPN - 05/05/2025 11:05 AM EDT Patient called the office and she states that she was suppose to have a ultrasound sent in for her.Patient advised per note it was discussed due to her pain but can be sent at this time. PVU and order sent to [facility]. documented in this encounter Plan of Treatment Upcoming Encounters Date Type Department Care Team (Late st Contact Info) Description 03/01/2026 11:00 AM EDT Office Visit [facility] [address] [facility] [place] [phone] Tommie Mccann DO [address] [place] [address] Scheduled Orders Name Type Priority Associated Diagnoses Orde r Schedule US Pelvis w/ TV Imaging Routine Pelvic pain in female Expected: 05/05/2025, Expires: 11/05/2025 documented as of this encounter Visit Diagnoses Diagnosis Pelvic pain in female Unspecified symptom associated with female genital organs documented in this encounter
--- OUTSIDE RECORDS SUMMARY | 2025-05-07 12:53 | XMS_ITS | Encounter Summary ---
Author Organization [facility] Address [address], [address] [place] [address] Care Team Providers Care Sander Wooden Pencils Name Role Phone Sussy Lopez APRN - [facility] Primary Care Provider [phone] Reason for Referral * Imaging (Routine) - Closed Specialty Diagnoses / Procedures Referred By Ronnie t Referred To Contact Radiology Diagnoses Aftercare following surgery of the musculoskeletal system Lumbar pain Radiculopathy, lumbar region Procedures MRI LUMBAR SPINE W WO CONTRAST Bradly Rivers PA-C [address] [place] [address] Phone: tel: fax: Referral ID Status Reason Start Date Expiration Date Visits Re quested Visits Authorized [id number] Closed 08/31/2021 08/19/2022 1 1 Encounter Details Date Type Department Care Team (Latest Contact Info) Description 08/19/2021 Transcribe Orders [facility] [address] [place] [address] Bradly Rivers PA-C [address] [place] [address] Aftercare following surgery of the musculoskeletal system (Primary Dx); Lumbar pain; Radiculopathy, lumbar region Social History Tobacco Use [...] as of this encounter Results * MRI LUMBAR SPINE W WO CONTRAST (09/01/2021 2:43 PM EST) Anatomical Region Laterality Modality T-spine, L-spine, Pelvis Magneti c Resonance 09/01/2021 2:51 PM EST Impressions 09/01/2021 4:28 PM EST 1. Decompressive laminectomies at L4-5. 2. Left lateral recess disc protrusion at L4-5 likely impinges the L5 nerve. 3. Disc protrusion in the left L5-S1 neural foramina may impinge the left L5 nerve as well. 4. Circumferential peridural enhancement at L4-5 may signify fibrosis. 5. Enhancement in the inter spinous space of L2-3 is of an unclear etiology. It may be related surgical intervention interspinous bursitis. Please correlate with surgical history. RECOMMENDATIONS: Unavailable Narrative 09/01/2021 4:28 PM EST EXAMINATION: MRI OF THE LUMBAR SPINE WITHOUT AND WITH CONTRAST 09/01/2021 1:52 pm TECHNIQUE: Multiplanar multisequence MRI of the lumbar spine was performed without and with the administration of intravenous contrast. COMPARISON: None. 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 Otherwise, no evidence of fracture or joint dislocation. No evidence of a marrow infiltrative process. Marrow edema in the left L4 pedicle and articular facet may be due to postoperative changes or arthrosis. SPINAL CORD: The conus terminates normally. SOFT TISSUES: No abnormal enhancement is seen of the lumbar spine. No paraspinal mass identified. L1-L2: Minimal disc bulge. Mild facet hypertrophy. No significant central canal, lateral recess or neural foraminal stenoses. L2-L3: Small disc bulge. Mild facet and ligamentous hypertrophy. No significant central canal, lateral recess or neural foraminal stenoses. Enhancement is seen in the L2-3 interspinous region. L3-L4: Minimal disc bulge. Mild facet and ligamentous hypertrophy. No significant central canal or lateral recess stenosis. Mild right neural foraminal stenosis. Enhancement is seen in the posterior paraspinal regions from the level of L3-4 to L4-5 which is likely postoperative. L4-L5: Moderate loss of disc height with a small disc bulge. Small superimposed disc protrusion in the left lateral recess. Decompressive laminectomies. No significant central canal stenosis. Circumferential peridural enhancement. Mild right and moderate to severe left lateral recess stenoses. Moderate bilateral neural foraminal stenoses. L5-S1: Left foraminal disc protrusion. No significant central canal or lateral recess stenosis. Moderate left-sided neural foraminal stenosis. Procedure Note Tanya Cramer MD - 09/01/2021 EXAMINATION: MRI OF THE LUMBAR SPINE WITHOUT AND WITH CONTRAST 09/01/2021 1:52 pm TECHNIQUE: Multiplanar multisequence MRI of the lumbar spine was performed withoutand with the administration of intravenous contrast. COMPARISON: None. 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 No evidence of a marrow infiltrative process. Marrow edema in the left L4 pedicle and articular facet may be due to postoperative changes or arthrosis. SPINAL CORD: The conus terminates normally. SOFT TISSUES: No abnormal enhancement is seen of the lumbar spine. No paraspinal mass identified. L1-L2: Minimal disc bulge. Mild facet hypertrophy. No significantcentral canal, lateral recess or neural foraminal stenoses. L2-L3: Small disc bulge. Mild facet and ligamentous hypertrophy. No significant central canal, lateral recess or neural foraminal stenoses. Enhancement is seen in the L2-3 interspinous region. L3-L4: Minimal disc bulge. Mild facet and ligamentous hypertrophy. No significant central canal or lateral recess stenosis. Mild right neural foraminal stenosis. Enhancement is seen in the posterior paraspinalregions from the level of L3-4 to L4-5 which is likely postoperative. L4-L5: Moderate loss of disc height with a small disc bulge. Small superimposed disc protrusion in the left lateral recess. Decompressive laminectomies. No significant central canal stenosis. Circumferential peridural enhancement. Mild right and moderate to severe left lateralrecess stenoses. Moderate bilateral neural foraminal stenoses. L5-S1: Left foraminal disc protrusion. No significant central canal or lateral recess stenosis. Moderate left-sided neural foraminal stenosis. IMPRESSION: 1. Decompressive laminectomies at L4-5. 2. Left lateral recess disc protrusion at L4-5 likely impinges the J5lminb. 3. Disc protrusion in the left L5-S1 neural foramina may impinge the leftL5 nerve as well. 4. Circumferential peridural enhancement at L4-5 may signify fibrosis. 5. Enhancement in the inter spinous space of L2-3 is of an unclearetiology. It may be related surgical intervention interspinous bursitis. Please correlate with surgical history. RECOMMENDATIONS: Unavailable Bradly Rivers PA-C [facility] MRI ORDERABLES Final Re sult documented in this encounter Visit Diagnoses Diagnosis Aftercare following surgery of the musculoskeletal system- Primary Aftercare following surgery of the musculoskeletal system, NEC Lumbar pain Lumbago Radiculopathy, lumbar region Thoracic or lumbosacral neuritis or radiculitis, unspecified Aftercare following surgery of the musculoskeletal system Aftercare following surgery of the musculoskeletal system, NEC Lumbar pain Lumbago Radiculopathy, lumbar region Thoracic or lumbosacral [...] documented as of this encounter Care Teams Sander Wooden Pencils Relationship Specialty Start Date End Date Sussy Lopez APRN - [facility] [address] [place] [address] PCP - General 06/11/23 documented as of this encounter
--- OUTSIDE RECORDS SUMMARY | 2025-05-07 12:53 | XMS_ITS | Encounter Summary ---
Author Organization [facility] Address [address] [place] [place] [address] Care Team Providers Care Events Solutions Consultant Name Role Phone Unavailable Primary Care Provider Unavailabl e Encounter Details Date Type Department Care Team (Late st Contact Info) Description 11/21/2024 Orders Only [facility] [address] [place] [address] [place] [phone] Stacie Espinosa [place] [address] [place] [address] Social History Tobacco Use Types Packs/Day Years [...] AM EDT Office Visit [facility] [address] [place] [address] [place] [phone] Tommie Mccann DO [address] [place] [address] documented as of this encounter Procedures Procedure Name Priority Date/Time Associated Diagnosis Comments PAP SMEAR Routine 02/14/2024 12:00 AM EDT documented in this encounter Results * Pap Smear (02/14/2024 12:00 AM EDT) Swab Cervical swab / Unknown us Tommie Mccann DO LAB CYTOLOGY ORDERABLES Final Re sult EXTERNAL LAB documented in this encounter Visit Diagnoses Not on filedocumented in this encounter
--- OUTSIDE RECORDS SUMMARY | 2025-05-07 12:53 | XMS_ITS | Encounter Summary ---
Author Organization [facility] Address [address] [place] [address] Care Team Providers Care Eyeglass Inspector Name Role Phone Unavailable Primary Care Provider Unavailabl e Encounter Details Date Type Department Care Team (Late st Contact Info) Description 09/29/2024 Abstract [facility] [place] [address] Tommie Mccann DO [address], [facility] Social History Tobacco Use Types Packs/Day Years [...] 11:00 AM EDT Office Visit [facility] [address] [place], [place] [address] [phone] Tommie Mccann DO [address] [place], [place] [id number] documented as of this encounter Visit Diagnoses Not on filedocumented in this encounter
--- OUTSIDE RECORDS SUMMARY | 2025-05-07 12:53 | XMS_ITS | Patient Health Record ---
Author Organization [facility] Address [address] [place] [address] Care Team Providers Care Whizzer Operator Name Role Phone PCP, NO Primary Care Provider Unavailabl e Luca Yvon Unavailable [phone] Self, Referral Unavailable Unavailable Luli Cordoba Unavailable [phone] Patricio Aldridge Unavailable [phone] Lynnette Deluna Unavailable [phone] Allergies Allergen (clinical drug ingredient) Drug/Non Drug Allergy documented on EMR Reaction Allergy Type Onset Date Status adhesives (uncoded) Unknown Allergy Active nubain (uncoded) unknown, during labor in 2008 Allergy Active Silicone silicone (uncoded) Unknown Allergy A ctive Reason For Referral Reason PRIOR AUTH APPROVED ELANDRO ERICH...01/20....PLEASE OBTAIN AUTHORIZATION FOR MRI LUMBAR Diagnosis 1 Low back pain, unspe cified back pain laterality, unspecified chronicity, unspecified whether sciatica present (M54.50) Referral Organization [facility] Referring Provider First Name Pippag Referring Provider Last Name Freda g Referring Provider Speciality Orthopedic Surgery Referred Organization [facility] Referred Address [address] [place] [phone], Procedure 1 MRI Lumbar Spine w/o Dye (90365) General Notes Charline Loyola 10:12:48 AM > PER [place] PRIOR AUTH HAS BEEN APPROVED FROM 12/30/2024-02/27/2025 AUTH # [id number], AUTH IN CHART, Referral Priority Routine Reason Eval and treat for S gabriella Cord Stim Diagnosis 1 S/P lumbar fusion (Z 98.1) Referral Organization [facility] Referring Provider First Name Pippakasi Referring Provider Last Name ysabelJackymeenakshiKathiaalycia villaseñor Referring Provider Speciality Orthopedic Surgery Referred Organization [facility] Referred Address [address], [place],[address],[place] General Notes KezaiNikia 01/20 04:00:46 PM >, Leeanna Cancino 01/22/2025 02:19:22 PM > LM TO SCHEDULE APPT Referral Priority Routine Reason psych eval for scs t rial Diagnosis 1 Failed back syndrome (M96.1) Referral Organization [facility] Referring Provider First Name Lynnette Referring Provider Last Name Regi Referring Provider Speciality Nurse Richy galvan Referred Organization [facility] Referred Address [address] [place],[address], Referred Provider Specialty Psychiatry General Notes Jose De Jesus Ascencio 02:44:10 PM > Referral Priority Routine Referral Appointment Date 04/02/2025 Medications Medication SIG (Take, Route, Fr equency, Duration) Notes Start Date End Date Status NexIUM Active multivitamin Active Fish Oil Active Mobic 15 mg 1 tab(s) orally once a day for 30 days 12/01/2024 Active magnesium glycinate Active Iron Chews Active vitamin E Active estradiol 0.5 mg 1 tab(s) orally once a day Active Social History Tobacco Use: Social History [...] Problem Status W/U Status Risk Notes Problem 17552675 Cervical radiculopathy (M54.12) Active confirmed Problem 025803564 Fibromyalgia (M79.7) Active confirmed Problem Pain of left knee region (finding) (994209396540223) Knee pain, left (M25.562) Active confirmed Problem 325423060 Lumbar radiculopathy (M54.16) Active confirmed Problem 54786645 Pain in right hi p (M25.551) Active confirmed Problem Pain of right knee region (finding) (133814906872560) Knee pain, right (M25.561) Active confirmed Problem 611082766 Bilateral primar y osteoarthritis of hip (M16.0) Active confirmed Problem Osteoarthritis of knee (568480091) Bilateral primary osteoarthritis of knee (M17.0) Active confirmed Problem 30260078 Pain in left hip (M25.552) Active confirmed Problem 49511133 Sacroiliitis (M46.1) Active confirmed Problem 5102636771 Acute pain of right shoulder (M25.511) Active confirmed Problem 830452235 Failed back syndrome (M96.1) Active confirmed Problem 835173772 SI (sacroiliac) joint dysfunction (M53.3) Active confirmed Problem 715656391 Tear of right acetabular labrum, initial encounter (S73.191A) Active confirmed Problem 235983800 Myofascial pain (M79.18) Active confirmed Problem 03930942186255 S/P lumbar fusio n (Z98.1) Active confirmed Problem 37924706347321839 Sacroiliac rahul nt dysfunction of both sides (M53.3) Active confirmed Problem Failed back syndrome (23330878) 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) Active confirmed Vital Signs Height 5'4 in 04/02/2025 Weight 180 lbs 04/02/2025 BMI 30.89 04/02/2025 Encounters Encounter Location Date Provider Diagnosis [facility] [address] [place] [phone] [facility]-Yvon Lumbar radiculopathy M54.16 [facility] [address] [place], [place] [id number] 04/02/2025 Lynnette Regi Failed back syndrome M96.1 and Fibromyalgia M79.7 [facility] [address] [place] [address] [place] [address] 12/01/2024 Luli Barroncomb Knee pain, right M25.561 ; Bilateral primary osteoarthritis of knee M17.0 and Knee pain, left M25.562 [facility] [address] [place] [address] 12[facility]30[facility]2024 [facility] Low back pain, unspecified back pain laterality, unspecified chronicity, unspecified whether sciatica present M54.50 ; Lumbar radiculopathy M54.16 and S/P lumbar fusion Z98.1 [facility] [address] [place] [address] 01/20/2025 [facility] S/P lumbar fusion Z98.1 [facility] [address] [place], [place] [id number] 02/19/2025 Patricio Aldridge Fibromyalgia M79.7 a nd Failed back surgical syndrome M96.1 [facility] [address] [place] [address] 01/27/2025 Patricio Aldridge Assessments Encounter Date Diagnosis (ICD Code) Assessment Notes Treatment Notes Treatment Clinical Notes Section Notes 12/01/2024 Knee pain, right (ICD-10 - M25.561) 12/01/2024 Bilateral primary osteoarthritis of knee (ICD-10 - M17.0) 12/30/2024 Lumbar radiculopathy (ICD-10 - M54.16) 1. low back pain 2. lumbar radiculopathy 3. s/p L4-L5 fusion The patient would like to obtain MRI of the lumbar spine to further evaluate her condition as she has now developed objective weakness in the LLE with 4/5 left foot dorsiflexion concerning for progressive neurological impairment that will likely require invasive treatment to improve her condition and prevent permanent neurological injury. We will see the patient back after MRI has been obtained to discuss results. 12/30/2024 Low back pain, unspecified back pain laterality, unspecified chronicity, unspecified whether sciatica present (ICD-10 - M54.50) 1. low back pain 2. lumbar radiculopathy 3. s/p L4-L5 fusion The patient would like to obtain MRI of the lumbar spine to further evaluate her condition as she has now developed objective weakness in the LLE with 4/5 left foot dorsiflexion concerning for progressive neurological impairment that will likely require invasive treatment to improve her condition and prevent permanent neurological injury. We will see the patient back after MRI has been obtained to discuss results. 01/20/2025 Lumbar radiculopathy (ICD-10 - M54.16) 01/20/2025 S/P lumbar fusion (ICD-10 - Z98.1) 1. s/p L4-L5 fusion 2. Radiculopathy 3. Low back pain At this time we have discussed given no evidence of significant stenosis there is no role for surgical decompression. There is also evidence of solid fusion. We have discussed failed back/post-maritza ectomy syndrome and the role of spinal cord stimulator in treating patients with this pathology and she would like to pursue this option. We will refer her to Dr. Aldridge to discuss this. We will see her back on as needed basis. 02/19/2025 Fibromyalgia (ICD-10 - M79.7) 40-year-old female who [...] due to fibromyalgia and centralized pain disorder. I discussed with her that we will avoid any sort of psychiatric based medications that she has a longstanding history of psychiatric conditions with reactions to prior antidepressants . 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 I discussed with her that we will avoid any sort of psychiatric based medications that she has a longstanding history of psychiatric conditions with reactions to prior antidepressants . 04/02/2025 Fibromyalgia (ICD-10 - M79.7) 40-year-old female [...] requiring surgical intervention - Occupational exacerbation 04/02/2025 Failed back syndrome (ICD-10 - M96.1) [...] not requiring surgical intervention - Occupational exacerbation 12/30/2024 S/P lumbar fusion (ICD-10 - Z98.1) 1. low back pain 2. lumbar radiculopathy 3. s/p L4-L5 fusion The patient would like to obtain MRI of the lumbar spine to further evaluate her condition as she has now developed objective weakness in the LLE with 4/5 left foot dorsiflexion concerning for progressive neurological impairment that will likely require invasive treatment to improve her condition and prevent permanent neurological injury. We will see the patient back after MRI has been obtained to discuss results. 12/01/2024 Knee pain, left (ICD-10 - M25.562) 04/02/2025 Other - Psychological evaluation required for spinal cord stimulator candidacy (insurance-specif ic provider, paperwork-based process) - Spinal cord stimulator trial consideration: Dr. Aldridge to perform at [facility] in [place] if psychological clearance obtained - Permanent implant would require referral to [facility] if trial successful - Insurance authorization required following psychological clearance - Medical cannabis consultation recommended through family physician - Continue current Lyrica through [facility] pain management - 8-week follow-up scheduled in [place] - Patient education provided regarding fibromyalgia pathophysiology [...] not requiring surgical intervention - Occupational exacerbation 12/01/2024 Other At this point, we discussed treatment options and alternatives with the patient. I have recommended anti-inflammatory medications to calm down the inflammation. I prescribed Mobic and precautions of the medication were reviewed. She is sensitive to medication so she will start with half of a dose and increase if she tolerates. If she continues to have issues we discussed repeating cortisone injections. 01/20/2025 Other Plan established and discussed MRI results with the patient. The patient is very much in agreement with the treatment and/or diagnostic plan set forth and all questions were answered to the patient's satisfaction. Thanks once again. If we can be of further service to your patients with disorders of the spine, cervical, thoracic, or lumbar, please do not hesitate to contact me. 1. s/p L4-L5 fusion 2. Radiculopathy 3. Low back pain At this time we have discussed given no evidence of significant stenosis there is no role for surgical decompression. There is also evidence of solid fusion. We have discussed failed back/post-maritza ectomy syndrome and the role of spinal cord stimulator in treating patients with this pathology and she would like to pursue this option. We will refer her to Dr. Aldridge to discuss this. We will see her back on as needed basis. 02/19/2025 Other Injections -none at this time Adjunct medications -continue Lyrica 50 mg 3 times daily Specialized treatments -continue home exercise program Opiate medications -none Referrals -none 40-year-old female who has prior history of L4-L5 posterior spinal fusion without evidence of hardware loosening as well as prior bilateral sacroiliac joint fusion through our office was not having some low back pain with left greater than right lower extremity radiculopathy without any concern for stenosis. Her biggest reason for having pain is due to fibromyalgia and centralized pain disorder. I discussed with her that we will avoid any sort of psychiatric based medications that she has a longstanding history of psychiatric conditions with reactions to prior antidepressants . Plan Of Treatment Pending Test Test Name Order Date Rheumatoid factor 12/26/2023 ESR 12/26/2023 MRI : Hip Right without - [id number] 12/26/19 24 Surgery Scheduling 07/17/2023 Work Slip, Off Work: Patient was seen in my office today and will be off work until seen back in my office for follow-up appointment. 08/24/2023 Work Slip with Restrictions: 06/05/2023 Work Slip 09/07/2023 HLA B27 12/26/2023 PT-eval and treat 03/17/2024 [facility]- HIP W/ PELVIS, LEFT [address] Pelvis W/O Contrast 06/01/2023 SI JOINT INJECTION 06/01/2023 HIP INJECTION 10/05/2023 SCC- PT/OT EVAL AND TREAT 3X/WEEK FOR 6 WEEKS 01/21/2024 SI Joint Fusion 07/12/2023 SCC- HIP W/ PELVIS, RIGHT 32959 12/26/19 24 SCC- KNEE 4 VIEW LEFT-[id number] 12/01/2024 SCC- KNEE 4 VIEW RIGHT 23300 12/01/2024 Future Test Test Name Order Date MRI : Lumbosacral Spine W/O Contrast - 7 8 12/30/2024 Insurance Providers Payer Name Payer Address Payer Phone Subscriber Number Group Number Insured Name Patient Relationship to Insured Coverage Start Date Coverage End Date Medicaid [place] [address] [place] [address] [id number] ASHLEE JALLOH Self - patient is the insured 4 [employer] [address] [place] [address] [id number] ASHLEE JALLOH Self - patient is the insured [facility] [address] [place] [address] [id number] ASHLEE JALLOH Self - patient is the insured 4 4 Medical (General) History Medical History History ICD Code Depression: Yes Mental Illness: Yes Anxiety: Yes Drug Allergies: Yes PTSD Anemia Cholesterol Surgical History Surgery Date(Month/Year) Bilateral SI jnt fusion 08/2023 Hysterectomy/partial Ablation L4-5 TLIF 11/2021 L4-5 laminectomy, discectomy 06/2021 C section x2 2008
--- OUTSIDE RECORDS SUMMARY | 2025-05-07 12:53 | XMS_ITS | Encounter Summary ---
Author Organization [facility] Address [address] [place] [address] Care Team Providers Care Sales Audit Clerk Name Role Phone Unavailable Primary Care Provider Unavailabl e Encounter Details Date Type Department Care Team (Late st Contact Info) Description 03/09/2025 Abstract [facility] [place] [address] Tommie Mccann DO [address], [facility] Social History Tobacco Use Types Packs/Day Years [...] 11:00 AM EDT Office Visit [facility]LIN [facility] [address] [place], [place] [address] [place] [phone] Tommie Mccann DO [address] [place], [place] [phone] documented as of this encounter Visit Diagnoses Not on filedocumented in this encounter
--- OUTSIDE RECORDS SUMMARY | 2025-05-07 12:53 | XMS_ITS | Clinical Summary ---
Author Organization [employer] [facility] Address [facility] [id number] [address] [place] [address] Care Team Providers Care Quality Assurance Lab Technician Name Role Phone Kehinde Ivey [facility] H[employer] TEACHER Primary Care Provider [phone] Allergies Active Allergy Reactions Criticality Noted Date Comments Adhesive Rash Low 08/17/2023 Cloth tape, tears skin and welts Nalbuphine Dizziness,Vomiting 04/28/2017 Nalbuphine Nausea,Tachycardia 01/12/2022 Silicone Hives 05/22/2023 Medications VIT 91/IRON/FOLIC/DHA ( + DHA ORAL) Take 1 tablet by mouth in the morning. Active esomeprazole (NexIUM) 20 mg capsule Take 1 capsule (20 mg total) by mouth every morning before breakfast. Active naproxen (NAPROSYN) 250 mg tablet Take 1 tablet (250 mg total) by mouth 2 (two) times a day as needed for pain. Active phentermine 37.5 MG capsule Take 1 capsule (37.5 mg total) by mouth once daily. Active fluticasone propionate (FLONASE) 50 mcg/actuation nasal spray Administer 2 sprays into each nostril in the morning. 16 g 5 4 Active multivit-minerals /folic acid (WOMEN'S MULTIVITAMIN GUMMIES ORAL) Take 50 mL by mouth in the morning. Active cyclobenzaprine (FLEXERIL) 10 mg tabletIndications :Fibromyalgia Take 1 tablet (10 mg total) by mouth nightly. 30 tablet 2 5 Active Active Problems Problem Noted Date Diagnosed Date Raynaud's disease without gangrene 10/02/2024 Assessment & Plan (10/02/2024 10:16 AM EST): Recommended to discontinue her phentermine if possible and conservative management of her Raynaud's. Threatened labor 04/28/2017 Immunizations No known immunizations Family History Medical History Relation Name Comments Breast cancer Mother Relation Name Status Comments Mother Social History Tobacco Use Types Packs/Day Years Used Date Smoking Tobacco: Never Passive Smoke Exposure: Never Smokeless Tobacco: Never Tobacco Cessation:Counseling Given: Not Answered Alcohol Use Standard Drinks/Week Comments No 0 (1 standard drink = 0.6 oz pur e alcohol) Childcare Answer Date Recorded Childcare Unknown 02/19/2019 Employment Answer Date Recorded Employment Unknown 02/19/2019 Hunger Screening Answer Date Recorded Within the past 12 months we worried whether our food would run out before we got money to buy more. Never True 10/02/2024 Within the past 12 months th e food we bought just didn't last and we didn't have money to get more. Never True 10/02/2024 Comments No Sex and Gender Information Value Date Recorded Sex Assigned at Not on file Legal Sex Female 11:57 AM EDT Gender Identity Not on file Sexual Orientation Not on file Last Filed Vital Signs Vital Sign Reading Time Taken Comments Blood Pressure 118/74 10/02/2024 9:46 AM EST Pulse 78 10/02/2024 9:46 AM EST Temperature 36.7 C (98 F) 10/02/2024 9:46 AM EST Respiratory Rate 16 10/02/2024 9:46 AM EST Oxygen Saturation 96% 01/12/2022 6:25 AM EDT Inhaled Oxygen Concentration - - Weight 76.2 kg (168 lb) 10/02/2024 9:46 AM EST Height 162.6 cm (5' 4.02 ) 10/02/2024 9:46 AM ES T Body Mass Index 28.82 10/02/2024 9:46 AM EST Plan of Treatment Health Maintenance Due Date Last Done Comments Depression Screening 1997 Adult BMI Follow Up Plan 2003 DTaP,Tdap and Td Vaccines (1 - Tdap) 01/09/2004 COVID-19 Vaccine (2023-2 5 season) 2024 02/25/2021, 02/04/2021 Influenza Vaccine 05/11/2025 07/07/2022, , 07/14/2019 Tobacco Screening 09/17/2025 09/17/2024 Adult BMI Screening 10/02/2025 10/02/2024 Pap Smear Discontinued 01/18/2023 Medical Devices Not on file Insurance [employer] [facility]1983 MEDICAID Advance Directives * Full Code (Latest Code Status on File) Date Activated Date Inactivated Comments 04/28/2017 10:04 PM 05/01/2017 6:43 PM Care Teams Quality Assurance Lab Technician Relationship Specialty Start Date End Date Kehinde Ivey, [facility] H[employer]ORY TEACHER [address] [place] [address] PCP - General Family Medicine 01/12/22
--- OUTSIDE RECORDS SUMMARY | 2025-05-07 12:53 | XMS_ITS | Clinical Summary ---
Author Organization [facility] Address [address] [place] [address] Care Team Providers Care Dog Day Care Attendant Name Role Phone Unavailable Primary Care Provider Unavailabl e Allergies Active Allergy Reactions Criticality Noted Date Comments Nalbuphine Dizziness,GI intolerance,Nausea And Vomiting,Nausea Only,Palpitations,Ra sh High 04/10/2013 Pt vomited after being given Nubain in the past Other Reaction(s): unknown, during labor in 2008 Other Reaction(s): Intolerance, Other: See Comments, Vomiting Pt vomited after being given Nubain in the past pt states when taking it becamse dizzy and nauseated was pregant had to be rushed back to surgery. Silicone Hives 05/22/2023 Other Reaction(s): Unknown Wound Dressing Adhesive Rash Low 08/17/2023 Cloth tape, tears skin and welts Medications esomeprazole (NexIUM) [address] capsule 1 capsule 1 (one) time each day at the same time Active pregabalin (Lyrica) 25 MG capsule Take 25 mg by mouth in the morning and 25 mg in the evening and 25 mg before bedtime. Active phentermine (Adipex-P) 37.5 MG tablet Take 37.5 mg by mouth in the morning. Take before meals. Active estradiol (Estrace) 0.1 MG/GM vaginal creamIndication s:Hormone disorder 2g vaginal daily for 2 weeks, then 2 times weekly following initial 2 weeks 42.5 g 5 Active Estradiol Starter Pack (Imvexxy Starter Pack) 4 MCG insertIndicatio ns:Dyspareunia, female,Hormone disorder,Pelvic pain in female Insert 1 Insert into the vagina 2 (two) times a week 8 each 3 Active Active Problems Problem Noted Date Diagnosed Date Other constipation 02/14/2024 Well woman exam with routine gynecological exam 02/14/2024 Pelvic pain in female 06/19/2023 Postoperative visit 06/19/2023 Abnormal cervical Papanicolaou smear 03/23/2023 Complex ovarian cyst 03/23/2023 Depression 03/23/2023 Kidney stone 03/23/2023 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 smear 03/23/2023 Obesity 03/23/2023 Pruritus of vagina 03/23/2023 Examination for, follow-up 03/23/2023 Encounters Date Type Department Care Team Description 05/05/2025 Telephone [facility] [address] [facility] [place] [address] Tommie Mccann, 04/27/2025 Refill [facility] [address] [place] [address] Stacie Espinosa MA 03/20/2025 Abstract [facility] [address] [facility] [place] [address] Tommie Mccann, DO 03/09/2025 Abstract [facility] [address] [place] [address] Tommie Mccann, DO 03/09/2025 Abstract [facility] [address] [facility] [place] [address] Tommie Mccann, DO 03/09/2025 Abstract [facility] [address] [facility] [place] [address] Tori Farmer PA 02/27/2025 Orders Only [facility] [address] [facility] [place] [address] Stacie Espinosa MA 02/19/2025 8:30 AM EDT Office Visit [facility] [address] [facility] [place] [address] Tommie Mccann DO Well woman exam with routine gynecological exam; Breast cancer screening by mammogram; Dyspareunia, female; Hormone disorder; Pelvic pain in female 02/19/2025 Clinisync Result Encounter [facility] Department Unsolicited Tommie Mccann DO 02/19/2025 Bamboo flowsheet [facility] [address] [facility] [place] [id number] Tommie Mccann DO from Last 3 Months Family History Medical History Relation Name Comments Arthritis Father Hyperlipidemia Maternal Grandfather ?? Hypertension Maternal Grandfather ?? Hyperlipidemia Maternal Grandmother ?? Hypertension Maternal Grandmother ?? Breast cancer Mother Michelle Arthritis Paternal Grandfather ?? Hyperlipidemia Paternal Grandfather ?? Hypertension Paternal Grandfather ?? Hyperlipidemia Paternal Grandmother ?? Hypertension Paternal Grandmother ?? Relation Name Status Comments Father Maternal Grandfather ?? Maternal Grandmother ?? Mother Michelle Paternal Grandfather ?? Paternal Grandmother ?? Son 1 Alive Son 2 Alive Social History Tobacco Use Types Packs/Day Years Used Date Smoking Tobacco: Never Smokeless Tobacco: Never Tobacco Cessation:Counseling Given: Not Answered Alcohol Use Standard Drinks/Week Comments Never 0 (1 standard drink = 0.6 oz pur e alcohol) Comments No Sex and Gender Information Value Date Recorded Sex Assigned at Not on file Legal Sex Female 11:47 PM EDT Gender Identity Female 03/26/2023 3:08 PM EDT Sexual Orientation Not on file Last Filed Vital Signs Vital Sign Reading Time Taken Comments Blood Pressure 120/70 01/28/2025 4:12 PM EDT Pulse - - Temperature - - Respiratory Rate - - Oxygen Saturation - - Inhaled Oxygen Concentration - - Weight 86.2 kg (190 lb) 01/28/2025 4:12 PM EDT Height 162.6 cm (5' 4 ) 02/14/2024 9:20 AM EDT Body Mass Index 32.61 02/14/2024 9:20 AM EDT Plan of Treatment Upcoming Encounters Date Type Department Care Team (Late st Contact Info) Description 03/01/2026 11:00 AM EDT Office Visit [facility] [address] [facility] [facility] [address] Tommie Mccann DO [address] [place] [address] Health Maintenance Due Date Last Done Comments Mammogram 2025 Influenza Vaccine (#1) 2025 07/07/2022, 2019, 07/14/2019 Cervical Cancer Screening 02/19/2030 HPV/Cotest 02/19/2030 Pap Smear 02/19/2030 02/19/2025, 02/2024, 01/18/2023, Additional history exists Procedures Procedure Name Priority Date/Time Associated Diagnosis Comments IGP,APTIMA HPV,AGE GDLN Routine 02/19/2025 8:37 AM EDT PAP SMEAR Routine 02/19/2025 12:00 AM EDT from Last 3 Months Results * IGP,APTIMA HPV,AGE GDLN (02/19/2025 8:37 AM EDT) AGE GDLN ACOG TESTING Note . [facility] Comment: TESTS RESULT FLAG UNITS REF RANGE LAB Clinician Provided Cytology Information Source.............Vagina No. of containers..01 ThinPrep Vial Age Algo ACOG Erika... 30-65 01 FLAG LEGEND: L-Low Normal,H-High Normal,LL-Alert Low,HH-Alert High <-Panic Low,>-Panic High,A-Abnormal,AA-Critical Abnormal Performed at: 01 =G [facility] [place] [address] Ambar Sandoval MD, IGP, APTIMA HPV, RFX 16/18,45 Note . [facility] Comment: TESTS RESULT FLAG UNITS REF RANGE LAB DIAGNOSIS: 02 NEGATIVE FOR INTRAEPITHELIAL LESION OR MALIGNANCY. Specimen adequacy: 02 Satisfactory for evaluation. Performed by: Jb Hernández, Fulfillment Mail Clerk ([facility]) . 02 Note: Note 02 The Pap smear is a screening test designed to aid in the detection of premalignant and malignant conditions of the uterine cervix. It is not a diagnostic procedure and should not be used as the sole means of detecting cervical cancer. Both false-positive and false-negative reports do occur. Test Methodology: Note 02 This liquid based ThinPrep(R) pap test was screened with the use of an image guided system. HPV Genotype Reflex Note 02 Criteria not met, HPV Genotype not performed. FLAG LEGEND: L-Low Normal,H-High Normal,LL-Alert Low,HH-Alert High <-Panic Low,>-Panic High,A-Abnormal,AA-Critical Abnormal Performed at: [address] [id number] Ambar Sandoval MD, HPV APTIMA Negative Negative [facility] Comment: This nucleic acid amplification test detects fourteen high- risk HPV types (16,18,31,33,35,39,45,51,52,56,58,59,66,68) without differentiation. Performed at: = - [facility] [address] [id number] Backup Engineer: Ambar Sandoval MD, Phone: [phone] Performed at: [facility] [id number] Backup Engineer: Ambar Sandoval MD, Phone: [phone] 02/19/2025 8:37 AM EDT 02/19/2025 3:12 PM EDT Narrative [facility] - 02/21/2025 3:08 PM EDT SPATULA-ALONE VAGINA Tommie Siobhan DO LAB BLOOD ORDERABLES Final Resul t [facility] * Pap Smear (02/19/2025 12:00 AM EDT) Swab Cervical swab / Unknown Tommie Siobhan DO LAB CYTOLOGY ORDERABLES Final Re sult EXTERNAL LAB from Last [address] [place] [address] MEDICAID [place]
--- OUTSIDE RECORDS SUMMARY | 2025-05-07 12:53 | XMS_ITS | Encounter Summary ---
Author Organization [facility] Address [address] [place] [address] Care Team Providers Care Real Estate Loan Processor Name Role Phone Unavailable Primary Care Provider Unavailabl e Encounter Details Date Type Department Care Team (Late st Contact Info) Description 03/20/2025 Abstract [facility] [place] [address] Tommie Mccann DO [address] [place], [facility] Social History Tobacco Use Types Packs/Day Years [...] 11:00 AM EDT Office Visit [facility] [address] [place], [place] [address] [id number] Tommie Mccann DO [address] [place], [place] [id number] documented as of this encounter Visit Diagnoses Not on filedocumented in this encounter
--- OUTSIDE RECORDS SUMMARY | 2025-05-07 12:53 | XMS_ITS | Clinical Summary ---
Author Organization [facility] Address [address], [address] [place] [address] Care Team Providers Care Bank Cashier Name Role Phone Sussy Lopez APRN - CRANE RIGGER Primary Care Provider [phone] Allergies Active Allergy Reactions Criticality Noted Date Comments Adhesive Tape Rash Low 08/17/2023 Cloth tape, tears skin and welts Nalbuphine Hcl 04/10/2013 Pt vomited after being given Nubain in the past Silicone Hives 05/22/2023 Medications rOPINIRole (REQUIP) 0.5 MG tabletIndicatio ns:RLS (restless legs syndrome) Take 1 tablet by mouth at bedtime 90 tablet 1 2 Active Additional Information Patient not taking.Informant: Self, Reported on 11/14/2024 esomeprazole Magnesium (NEXIUM) 20 MG PACK Take 1 packet by mouth daily Active estradiol (ESTRACE) 0.5 MG tablet Take 1 tablet by mouth daily Has not started yet Active naproxen (NAPROSYN) 500 MG tablet Take 1 tablet by mouth 2 times daily as needed for Pain Active Ubrogepant (UBRELVY) 100 MG TABS Take 100 mg by mouth as needed (migraine) Active oxyCODONE-aceta minophen (PERCOCET) 5-325 MG per tablet Take 1 tablet by mouth nightly as needed for Pain. Active methocarbamol (ROBAXIN) 500 MG tablet 1 to 2 pills by mouth 4 times daily as needed muscle pain/spasm 56 tablet 3 Active Additional Information Patient not taking.Reported on 09/28/2023 phentermine (ADIPEX-P) 37.5 MG capsule Take 1 capsule by mouth every morning. Max Daily Amount: 37.5 mg Active ibuprofen (IBU) 400 MG tablet Take 1 tablet by mouth every 6 hours as needed for Pain 30 tablet 4 Active Atorvastatin Calcium (LIPITOR PO) Take by mouth Act mariela gabapentin (NEURONTIN) 100 MG capsule Take 1 capsule by mouth every 6 hours as needed (Pain) for up to 5 days. 12 capsule 5 Active ketorolac (TORADOL) 10 MG tablet Take 1 tablet by mouth every 6 hours as needed for Pain 10 tablet 5 Active lidocaine (LIDODERM) 5 % Place 1 patch onto the skin daily 12 hours on, 12 hours off. 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 Elevated fasting glucose 02/16/2022 Chronic pain syndrome 05/26/2021 Dysthymia 05/26/2021 PTSD (post-traumatic stress disorder) 05/26/2021 Chronic fatigue 08/28/2018 Acute non intractable tension-type headache 08/10 Resolved Problems Problem Noted Date Diagnosed Date Resolved Date Post-operative state 08/24/2023 024 Abdominal pain 08/28/2018 08/18/2022 Overuse syndrome 04/12/2018 08/18/2022 Strain of back 04/12/2018 08/18/2022 Encounters Date Type Department Care Team Description 04/13/2025 2:30 PM EDT - 04/13/2025 11:59 PM EDT Hospital Encounter [facility] [address] [place] [phone] Sergio Barkley Discharge Disposition: Home or Self Care 04/09/2025 2:45 PM EDT - 04/09/2025 11:59 PM EDT Hospital Encounter [facility] Physical Therapy [address] [place] [id number] Sergio Barkley Discharge Disposition: Home or Self Care 04/01/2025 3:23 PM EDT - 04/01/2025 11:59 PM EDT Hospital Encounter [facility] Physical Therapy [address] [place] [phone] Herve Brannon, PT Discharge Disposition: Home or Self Care 03/30/2025 3:00 PM EDT - 03/30/2025 11:59 PM EDT Hospital Encounter [facility] Physical Therapy [address] [place] [phone] Corby Lewis, NOTEREADER Discharge Disposition: Home or Self Care 03/24/2025 1:00 PM EDT - 03/24/2025 11:59 PM EDT Hospital Encounter [facility] Physical [address] [phone] Herve Brannon, PT Discharge Disposition: Home or Self Care 03/16/2025 11:15 AM EDT - 03/16/2025 11:59 PM EDT Hospital Encounter [facility] Physical [address] [address] Corby Lewis, ANDREIA Discharge Disposition: Home or Self Care 03/11/2025 11:30 AM EDT - 03/11/2025 11:59 PM EDT Hospital Encounter [facility] Physical [address] [address] Sergio Barkley Discharge Disposition: Home or Self Care 03/05/2025 10:45 AM EDT - 03/05/2025 11:59 PM EDT Hospital Encounter [facility] Physical Therapy [address] [place] [phone] Arturo Virk, PT Discharge Disposition: Home or Self Care 02/27/2025 11:45 AM EDT - 02/27/2025 11:59 PM EDT Hospital Encounter [facility] Physical Therapy [address] [place] [phone] Charlene Todd, ANDREIA Discharge Disposition: Home or Self Care 02/24/2025 11:15 AM EDT - 02/24/2025 11:59 PM EDT Hospital Encounter [facility] Physical Therapy [address] [place] [id number] Herve Brannon, CHRISTOPHER Discharge Disposition: Home or Self Care 02/10/2025 11:59 PM EDT Hospital Encounter [facility] Physical Therapy [address] [place], [place] [phone] Sergio Barkley Discharge Disposition: Home or Self Care 02/06/2025 11:59 PM EDT Hospital Encounter [facility] Physical Therapy [address] [place] [phone] Diann Tao PTA Discharge Disposition: Home or Self Care 02/04/2025 3:30 PM EDT - 02/04/2025 11:59 PM EDT Hospital Encounter [facility] Physical Therapy [address] [place] [address] [phone] Diann Tao PTA Discharge Disposition: Home or Self Care from Last 3 Months Immunizations Immunization Administration Dates Next Due COVID-19, PFIZER PURPLE top, DILUTE for use, (age 12 y+), 30mcg/0.3mL 02/25/2021,02/04/2021 Influenza Virus Vaccine 07/07/2022 Influenza, AFLURIA (age 3 y+ ), FLUZONE, (age 6 mo+), Quadv MDV, 0.5mL 07/14/2019 Influenza, AFLURIA, FLUZONE, (age3 y+), IM, Trivalent MDV, 0.5mL 07/14/2019 Influenza, FLUARIX, FLULAVAL , FLUZONE (age 6 mo+) and AFLURIA, (age 3 y+), Quadv PF, 0.5mL 07/07/2022 Influenza, FLUCELVAX, (age 6 mo+), MDCK, Quadv PF, 0.5mL 07/02/2020 Family History * Patient is adopted Medical History Relation Name Comments Breast Cancer Mother Cancer Mother Relation Name Status Comments Mother Social History Tobacco Use Types Packs/Day Years Used Date Smoking Tobacco: Never Smokeless Tobacco: Never Alcohol Use Standard Drinks/Week Comments No 0 (1 standard drink = 0.6 oz pur e alcohol) [facility] Utilities Answer Date Recorded In the past 12 months has Review [employer], gas, oil, or water [employer] threatened to shut off services in your home? No 08/24/2023 AUDIT-C Answer Date Recorded Q1: How often do you have a drink containing alcohol? Never 01/06/2024 Q2: How many drinks containi ng alcohol do you have on a typical day when you are drinking? Patient does not drink Q3: How often do you have si x or more drinks on one occasion? Never 01/06/2024 Overall Financial Resource Strain (CARDIA) Answe r [...] the money to buy more. Never true 08/24/20 23 Within the past 12 months, t he food you bought just didn't last and you didn't have money to get more. Never true 08/24/2023 PRAPARE - Transportation Answer Date Re corded In the past 12 months, has l ack of transportation kept you from medical appointments or from getting medications? No 08/10 In the past 12 months, has l ack of transportation kept you from meetings, work, or from getting things needed for daily living? No 08/24/2023 Housing Stability Vital Sign Answer Lucas e Recorded In the last 12 months, was t here a time when you were not able to pay the mortgage or rent on time? No 08/24/2023 Number of Places Lived in the Last Year Not on f ile 08/24/2023 In the last 12 months, was t here a time when you did not have a steady place to sleep or slept in a correction (including now)? No 08/24/2023 Interpersonal Safety ([facility] HRSN) Answer Date Recorded How often does anyone, benu bowen family and friends, physically hurt you? 1 08/24/2023 How often does anyone, inclu ding family and friends, scream or curse at you? Not on file 08/24/2023 How often does anyone, inclu ding family and friends, insult or talk down to you? Not on file 08/24/2023 How often does anyone, inclu ding family and friends, threaten you with harm? Not on file 08/24/2023 Food Insecurity Answer Date Recorded Within the past 12 months, y ou worried that your food would run out before you got the money to buy more. 1 08/24/2023 Within the past 12 months, t he food you bought just didn't last and you didn't have money to get more. 1 08/24/2023 Interpersonal Safety Domain Source: IP Abuse Scr eening Answer Date Recorded Physical abuse Denies 12/03/2024 Verbal abuse Denies 12/03/2024 Emotional abuse Denies 12/03/2024 Financial abuse Denies 12/03/2024 Sexual abuse Denies 12/03/2024 Comments No Sex and Gender Information Value Date Recorded Sex Assigned at Female 01/25/2022 7:49 AM EDT Legal Sex Female 7:39 PM EST Gender Identity Female 01/25/2022 7:49 AM EDT Sexual Orientation Straight 01/25/2022 7: 49 AM EDT Last Filed Vital Signs Vital Sign Reading Time Taken Comments Blood Pressure 91/46 12/19/2024 12:45 PM EDT Pulse 65 12/19/2024 12:45 PM EDT Temperature 36.9 C (98.5 F) 12/03/2024 12:00 PM EDT Respiratory Rate 16 12/19/2024 12:45 PM EDT Oxygen Saturation 100% 12/19/2024 12:09 PM EDT Inhaled Oxygen Concentration - - Weight 81.6 kg (180 lb) 12/19/2024 11:08 AM EDT Height 162.6 cm (5' 4 ) 12/19/2024 11:08 AM EDT Body Mass Index 30.9 12/19/2024 11:08 AM EDT Plan of Treatment Health Maintenance Due Date Last Done Comments Depression Monitoring 1997 HIV screen 01/09/2000 Hepatitis C screen 2003 DTaP/Tdap/Td vaccine (1 - Tdap) 01/09/2004 Hepatitis B vaccine (1 of 3 - 19+ 3-dose series) 01/09/2004 Pap smear 2006 Cervical cancer screen 2015 HPV (without or with Pap) 2015 A1C test (Diabetic or Prediabetic) 08/17/2023 08/17/2022, 02/16/2022, 04/18/2021 Lipids 08/17/2023 08/17/2022, 12/04/2022, 05/31/2021, Additional history exists COVID-19 Vaccine (2023- season) 2024 02/25/2021, 02/04/2021 Breast cancer screen 2025 Flu vaccine (#1) 04/10/2025 07/07/2022, , 07/02/2020, Additional history exists HPV vaccine (No Doses Required) Completed Hepatitis A vaccine Aged Out No longe r eligible based on patient's age to complete this topic Hib vaccine Aged Out No longer eligi ble based on patient's age to complete this topic Meningococcal (ACWY) vaccine Aged Out No longer eligible based on patient's age to complete this topic Meningococcal B vaccine Aged Out No l onger eligible based on patient's age to complete this topic Pneumococcal 0-49 years Vaccine Aged Out No longer eligible based on patient's age to complete this topic Polio vaccine Aged Out No longer elig ible based on patient's age to complete this topic Varicella vaccine Discontinued Medical Devices Implanted Type Area Strapping Machine Operator Device Identifier Shelf Expiration Date Model / Serial / Lot Allograft Si Intra Art Fus 11mm - [id number] Implanted:Qty: 1 on 08/24/2023 by Patricio Aldridge MD at [facility] Left: Back [employer]- 01/19/2027 [id number] / [id number] / Allograft Si Intra Art Fus 11mm - [id number] Implanted:Qty: 1 on 08/24/2023 by Patricio Aldridge MD at [facility] Right: Back [facility] [email or web address]][employer]- 01/19/2027 [id number] / [id number] / Procedures Procedure Name Priority Date/Time Associated Diagnosis Comments HEMOGLOBIN A1C Routine 08/17/2022 8:36 AM EST Metabolic syndrome LIPID PANEL Routine 08/17/2022 8:35 AM EST Metabolic syndrome from Last 3 Months or Most Recently Relevant to Health Maintenance Results * Hemoglobin A1C (08/17/2022 8:36 AM EST) Hemoglobin A1C 6.0 4.0 - 6.0 % 08/17/2022 8:36 AM EST [employer] Estimated Avg Glucose 126 mg/dL 08/17/2022 8:36 AM EST [employer] Comment: The ADA and AACC recommend providing the estimated average glucose result to permit better patient understanding of their HBA1c result. BLOOD SPECIMEN / Unknown 08/17/2022 8:36 AM EST 08/17/2022 8:37 AM EST us Kehinde Ivey MANAGER SYSTEM - COMMUNITY SERVICE WORKER CHEMISTRY ORDERABLES Fi nal Result [facility] [address] [place] [address], [facility] [phone] [facility] [address] [place] [address], [facility] [phone] * (ABNORMAL) Lipid Panel (08/17/2022 8:35 AM EST) Cholesterol 245(H) <200 mg/dL 08/17/2022 8:35 AM [employer] Comment: Cholesterol Guidelines: <200 Desirable 200-240 Borderline >240 Undesirable HDL 32(L) >40 mg/dL 08/17/2022 8:35 AM [employer] Comment: HDL Guidelines: <40 Undesirable 40-59 Borderline >59 Desirable LDL Cholesterol 0 - 130 mg/dL 08/17/2022 8:35 AM [employer] Comment: Calculation not valid for Triglyceride value greater than 400 mg/dL. Direct LDL reflexed LDL Guidelines: <100 Desirable 100-129 Near to/above Desirable 130-159 Borderline >159 Undesirable Direct (measured) LDL and calculated LDL are not interchangeable tests. Chol/HDL Ratio 7.7(H) <5 08/17/2022 8:35 AM EST [employer] Comment: Triglycerides 784(H) <150 mg/dL 08/17/2022 8:35 AM [employer] Comment: Triglyceride Guidelines: <150 Desirable 150-199 Borderline 200-499 High >499 Very high Based on AHA Guidelines for fasting triglyceride, June 2012. BLOOD SPECIMEN / Unknown 08/17/2022 8:35 AM EST 08/17/2022 8:36 AM EST Kehinde Ivey MANAGER SYSTEM - COMMUNITY SERVICE WORKER CHEMISTRY ORDERABLES Ed ited Result - Final [facility] [address] [place] [address], [facility] [phone] [employer] [address] [place] [address], [facility] [phone] from Last 3 Months or Most Recently Relevant to Health Maintenance Insurance Advance Directives * Full Code (Latest Code Status on File) Date Activated Date Inactivated Comments 08/24/2023 3:02 PM 08/25/2023 2:16 PM * Full Code Date Activated Date Inactivated Comments 06/15/2020 3:01 PM 06/15/2020 7:11 PM Healthcare Agents on File Name Relationship Healthcare Agent Relationshi p Communication Praveen Carter Other Primary Decision Maker Care Teams Bank Cashier Relationship Specialty Start Date End Date Sussy Lopez APRN - CRANE RIGGER [address] [place] [address] PCP - General 06/11/23
--- NOTE | 2025-05-07 12:54 | US_ITS ---
[address] [address] Patient Name: ASHLEE JALLOH MRN: [id number] date: 1985 Sex: F Assigned Patient Location: Current Patient Location: Accession/Order Number: [id number] Exam Date: 05/07/2025 12:56 Report Date: 05/08/2025 00:41 At the request of: SHAN STRATTON DO Procedure: US pelvis w/ transvaginal EXAMINATION TYPE: US pelvis w/ transvaginal Grayscale, color scale Doppler, vascular duplex analysis of the bilateral ovaries DATE OF EXAM ORDERED: 05/07/2025 1:25 PM HISTORY: Pelvic pain in female, hysterectomy COMPARISON: 07/06/2022 TECHNIQUE: Realtime Transvaginal and Transabdominal imaging was performed. Transvaginal imaging was utilized to better evaluate the ovaries and the endometrial stripe. Grayscale, color scale Doppler, vascular duplex analysis of the bilateral ovaries was performed to assess blood flow. FINDINGS: Ovaries: There is a thick-walled complex cysts in the left ovary measuring 3.8 x 3.3 x 2.9 cm. Right Ovary measurements: 2.7 x 2.8 x 2.0 cm Left Ovary measurements: 5.4 x 4.2 x 3.2 cm No abnormal adnexal mass is seen. No free fluid in the pelvic cul-de-sac. Vascular duplex analysis of the bilateral ovaries demonstrates normal blood flow without evidence of ovarian ischemia. US/US pelvis w/ transvaginal IMPRESSION: There is a thick-walled complex cysts in the left ovary measuring 3.8 x 3.3 x 2.9 cm. No evidence of ovarian ischemia. Impression dictated by: Dalton Gonzalez M.D. 05/08/2025 12:41 AM Dictation Location: [place] [address] Electronically authenticated by: [id number] Y Date: 05/08/2025 00:41
--- NOTE | 2025-05-07 12:54 | MM_ITS ---
Patient Name: ASHLEE JALLOH MR#: [id number] : 1985 Exam Date: 05/07/2025 Ordering Doctor: DR SHAN STRATTON . RADIOLOGY REPORT PROCEDURE: MM TOMOSYNTHESIS SCREENING BI COMPARISON: MG [facility] DIAG W CAD, 08/05/2019. INDICATIONS: Screening for malignant neoplasm Calculator Name NCI Breast Cancer Risk Assessment Tool 5 Year Breast Cancer Risk 1.10% Lifetime Breast Cancer Risk 18.30% Personal Breast Cancer No Personal Ovarian Cancer No Treatments partial hysterectomy Family Cancers Mother with breast cancer at age ~353. LOCATION: [facility] BREAST COMPOSITION: The breasts are heterogeneously dense, which may obscure small masses. FINDINGS: RIGHT BREAST: No significant suspicious finding. LEFT BREAST: No significant suspicious finding. DIAGNOSTIC CATEGORY 1--NEGATIVE. RECOMMENDATIONS: ROUTINE MAMMOGRAM AND CLINICAL EVALUATION IN 12 MONTHS. Dictated by: Aiden Foote DO on 05/07/2025 at 16:18 Approved by: Aiden Foote DO on 05/07/2025 at 16:19
--- OUTSIDE RECORDS SUMMARY | 2025-05-07 13:16 | XMS_ITS | CCD ---
Author Organization [facility] Care Team Providers Care Paper Carrier Name Role Phone NIKIA MONTE Admitting Unavailable NIKIA MONTE Attending Unavailable NIKIA MONTE Primary Care Unavailable Harman CALLAWAY Attending Unavailable NIKIA MONTE Primary Care Unavailable NIKIA MONTE Attending Unavailable NIKIA MONTE Primary Care Unavailable Nikia Monte Primary Care Provider HAI GARZA Attending Unavailable NIKIA MONTE Primary Care Unavailabl NOELLE Burrell Attending Unavailable NIKIA MONTE Primary Care Unavailabl e Nikia Monte Primary Care Provider [phone] Nikia Monte Primary Care Provider Nikia Monte Primary Care Provider Unavailable Primary Care Provider Unavailabl e Might HOME SERVICE ADVISOR - RAILROAD HAND, Tiffany Rivero Primary Care Provider Lizabeth HOME SERVICE ADVISOR - RAILROAD HAND, Nikia Primary Care Provider Might Tiffany NG Primary Care Provider [phone] Might HOME SERVICE ADVISOR - RAILROAD HAND, Tiffany W Primary Care Provider Might HOME SERVICE ADVISOR - RAILROAD HAND, Tiffany W Primary Care Provider LAKSHMIPATHY ., NARENDRANATH Admitting Lyssa vailable LAKSHMIPATHMontse ., LAURITAATH Attending Lyssa vailable OSMAR ., DR MARISABEL Knowles Primary Care Unavailable MISAdithya, DR POTTS Consulting Unavailable SIOBHAN ., DR TORREZ Admitting Unavailable SIOBHAN ., DR TORREZ Attending Unavailable REQUEST, DR MENEZES LISTED Primary Care Unavaila ble SIOBHAN ., DR TORREZ Consulting Unavailable ZIEBER, DR CINDY Schulte Consulting Unavailable SIOBHAN ., DR TORREZ Admitting Unavailable SIOBHAN ., DR TORREZ Attending Unavailable PRASAD ., DR MARISABEL Knowles Primary Care Unavailable SIOBHAN ., DR TORREZ Consulting Unavailable SIOBHAN ., DR TORREZ Admitting Unavailable SIOBHAN ., DR TORREZ Attending Unavailable REQUEST, DR RIRI LISTED Primary Care Unavaila ble SIOBHAN ., DR TORREZ Consulting Unavailable SIOBHAN ., DR TORREZ Admitting Unavailable SIOBHAN ., DR TORREZ Attending Unavailable PRASAD ., DR MARISABEL Knowles Primary Care Unavailable SOLOMON ., DR EUSEBIO Walsh Admitting Unavailable SOLOMON ., DR EUSEBIO Walsh Attending Unavailable PRASAD ., DR MARISABEL Knowles Primary Care Unavailable MISC, DR POTTS Consulting Unavailable SOLOMON ., DR EUSEBIO Walsh Consulting Unavailable SOLOMON ., DR EUSEBIO Walsh Admitting Unavailable SOLOMON ., DR EUSEBIO Walsh Attending Unavailable PRASAD ., DR MARISABEL Knowles Primary Care Unavailable SOLOMON ., DR EUSEBIO Walsh Consulting Unavailable SOLOMON ., DR EUSEBIO Walsh Admitting Unavailable SOLOMON ., DR EUSEBIO Walsh Attending Unavailable PRASAD ., DR MARISABEL Knowles Primary Care Unavailable MISC, DR POTTS Consulting Unavailable SOLOMON ., DR EUSEBIO Walsh Consulting Unavailable Bruno Dewey MD, Chi Attending Unavailable Might HOME SERVICE ADVISOR-RAILROAD HAND, [facility] Care Un available Radha Rodrigues Attending Unavaila Bruon Farmer MD, Chi Referring Unavailable Might HOME SERVICE ADVISOR-[facility], [facility] Un available Bruno Dewey MD, Chi Attending Unavailable Missy Sims PA-C Attending Anibal Sam MD [facility] Unavail able Missy Sims PA-C Attending Lyssavai labgini Might HOME SERVICE ADVISOR-[facility], [facility] Care Un available Yulia Hi Attending Unavailable Anibal Mayberry MD [facility] Unavail able Tahir HOME SERVICE ADVISOR-Geetha NG Attending Unav ailable Might HOME SERVICE ADVISOR-[facility], [facility] Care Un available Tahir HOME SERVICE ADVISOR-HERNANDEZ, Geetha Mcclendon Attending Unav ailable Obdulia CONROY, Yvon Marks Referring Unavail able Might HOME SERVICE ADVISOR-[facility], [facility] Un available Elio Young MD Attending Lyssavai lable Might HOME SERVICE ADVISOR-RAILROAD HAND, [facility] Un available Yulia Hi Attending Unavailable Shawanda CONROY, Anibal Anton Primary Care Unavail able Bethany CHARLES, Missy Ding Attending Sukhwinder escalera Might HOME SERVICE ADVISOR-RAILROAD HAND, Tiffany Soto Primary Care Un available Maco CONROY, Bruon Duran Attending Unavailable Might HOME SERVICE ADVISOR-RAILROAD HAND, Tiffany Soto Primary Care Un available Toño, Lidia L Primary Care Physician [phone] Toño HOME SERVICE ADVISOR - WIRE COATING OPERATOR METAL, Lidia Primary Care Provider NOÉ SOLOMON Attending Unavailable NOÉ SOLOMON Admitting Unavailable TOÑO, LIDIA Primary Care Unavailable Might RAILROAD HAND, Tiffany Primary Care Provider [phone] Unavailable Primary Care Provider Unavailabl e Might HOME SERVICE ADVISOR-RAILROAD HAND, Tiffany Rivero Primary Care Provider JARRED CARTER Attending Unavailable MIGHT, TIFFANY W Referring Unavailable MIGHT, TIFFANY W Primary Care Unavailable MIGHT, TIFFANY W Referring Unavailable MIGHT, TIFFANY W Primary Care Unavailable JARRED CARTER Attending Unavailable MIGHT, TIFFANY W Referring Unavailable MIGHT, TIFFANY W Primary Care Unavailable JARRED CARTER Attending Unavailable MIGHT, TIFFANY W Referring Unavailable MIGHT, TIFFANY W Primary Care Unavailable AMBATI, AMALA Attending Unavailable MIGHT, TIFFANY W Referring Unavailable MIGHT, TIFFANY W Primary Care Unavailable AMBATI, AMALA Referring Unavailable MIGHT, TIFFANY W Primary Care Unavailable AMBATI, AMALA Referring Unavailable MIGHT, TIFFANY W Primary Care Unavailable AMBATI, AMALA Attending Unavailable MIGHT, TIFFANY W Referring Unavailable MIGHT, TIFFANY W Primary Care Unavailable MYRA GALINDO Attending Unavailable MIGHT, TIFFANY W Referring Unavailable MIGHT, TIFFANY W Primary Care Unavailable Toño, SHIP PROPELLER FINISHER Lidia L Attending Unavailable Toño, SHIP PROPELLER FINISHER Lidia L Admitting Unavailable Toño, Lidia L Attending Unavailable Toño, Lidia L Attending Unavailable Toño, Lidia L Attending Unavailable Toño, Lidia L Attending Unavailable Jose, Darlene M Attending Unavailable Jose, Darlene M Attending Unavailable Jose, Darlene M Attending Unavailable Jose, Darlene M Attending Unavailable Toño, Lidia L Attending Unavailable Toño, Lidia L Attending Unavailable Toño, Lidia L Attending Unavailable Toño, Lidia L Referring Unavailable Toño, Lidia L Admitting Unavailable Toño, Lidia L Attending Unavailable Toño, Lidia L Attending Unavailable Toño, Lidia L Admitting Unavailable Toño, Lidia L Attending Unavailable Toño, Lidia Swenson Admitting Unavailable Jose, Darlene M Attending Unavailable Toño, Lidia Swenson Attending Unavailable Toño, Lidia Swenson Attending Unavailable Toño, Lidia Swenson Attending Unavailable Toño, Lidia Swenson Attending Unavailable Toño, Lidia L Attending Unavailable Toño, Lidia L Attending Unavailable Jose, Darlene M Attending Unavailable Jose, Darlene M Attending Unavailable Jose, Darlene M Attending Unavailable Jose, Darlene M Attending Unavailable Jose, Darlene M Attending Unavailable Jose, Darlene M Attending Unavailable Jose, Darlene M Attending Unavailable Unavailable Primary Care Provider Unavailtia e WALDO, JOHNATHAN Referring Unavailable DENIZ ENCARNACION Referring Unavailable TOMMIE MCCANN Attending Unavailable SIOBHAN, TOMMIE Attending Unavailable CINDY MONK Referring Unavailable TOÑO, LIDIA Referring Unavailable TOMMIE MCCANN Attending Unavailable DENIZ ENCARNACION Attending Unavailable DENIZ ENCARNACION Admitting Unavailable WALDO, JOHNATHAN Attending Unavailable SELF Referring Unavailable DENIZ ENCARNACION Attending Unavailable MADYSON VILLAFUERTE Attending Unavailable URIEL GUZMÁN Attending Unavailabl e HAAS, JOHNATHAN Referring Unavailable URIEL GUZMÁN Referring Unavailabl e RISHABH HUANG Attending Unavailable HAAS, JOHNATHAN Referring Unavailable HAAS, JOHNATHAN Attending Unavailable SELF Referring Unavailable MADYSON VILLAFUERTE Attending Unavailable HAASJOHNATHAN PALENCIA Referring Unavailable MYNOR GLASER Attending Unavailable TOÑO, LIDIA Primary Care Unavailable ANNIACHRISTOFER Knowles Referring Unavailable CHRISTOFER MILNER Attending Unavailable TOÑO, LIDIA Primary Care Unavailable RISHABH HUANG Referring Unavailable TOÑO, LIDIA Primary Care Unavailable RISHABH HUANG Referring Unavailable TOÑO, LIDIA Primary Care Unavailable ANN MARIE WAYNE Referring Unavailable TOÑO, LIDIA Primary Care Unavailable ZAIDAI WAYNE Referring Unavailable DOC FELIX Attending Unavailable TOÑO, LIDIA Primary Care Unavailable CATHERINE CALVILLO Attending Unavailable TOÑO, LIDIA Primary Care Unavailable TOÑO, LIDIA Primary Care Unavailable RISHABH HUANG Referring Unavailable TOÑO, LIDIA Primary Care Unavailable RISHABH HUANG Referring Unavailable TOÑO, LIDIA Primary Care Unavailable ZAIDAI WAYNE Referring Unavailable TOÑO, LIDIA Primary Care Unavailable BIYANI, WAYNE Referring Unavailable TOÑO, LIDIA Primary Care Unavailable RISHABH HUANG Referring Unavailable TOÑO, LIDIA Primary Care Unavailable ZAIDAI, WAYNE Referring Unavailable TOÑO, LIDIA Primary Care Unavailable SAL, RISHABH Referring Unavailable TOÑO, LIDIA Primary Care Unavailable SAL, RISHABH Referring Unavailable TOÑO, LIDIA Primary Care Unavailable SAL, RISHABH Referring Unavailable SAL, RISHABH Referring Unavailable TOÑO, LIDIA Primary Care Unavailable BIYANI, WAYNE Referring Unavailable TOÑO, LIDIA Primary Care Unavailable TOÑO, LIDIA Primary Care Unavailable BIYANI, WAYNE Referring Unavailable TOÑO, LIDIA Primary Care Unavailable ANNIA, CHRISTOFER Referring Unavailable ANNIA, CHRISTOFER Attending Unavailable TOÑO, LIDIA Primary Care Unavailable SAL, RISHABH Referring Unavailable TOÑO, LIDIA Primary Care Unavailable SAL, RISHABH Referring Unavailable TOÑO, LIDIA Primary Care Unavailable BIYANI, WAYNE Referring Unavailable TOÑO, LIDIA Primary Care Unavailable SAL, RISHABH Referring Unavailable TOÑO, LIDIA Primary Care Unavailable SAL, RISHABH Referring Unavailable DOC FELIX Attending Unavailable TOÑO, LIDIA Primary Care Unavailable TOÑO, LIDIA Primary Care Unavailable SAL, RISHABH Referring Unavailable TOÑO, LIDIA Primary Care Unavailable SAL, RISHABH Referring Unavailable Toño, Lidia L Attending Unavailable Toño, Lidia L Attending Unavailable Toño, Lidia L Attending Unavailable PAULIEELIZABETH Attending Unavailable Toño, Lidia L Attending Unavailable Toño, Lidia L Attending Unavailable Toño, Lidia L Attending Unavailable Allergies Allergy Classification Reported Allergen(s) Allergy Type Date of Onset Reaction(s) Facility Nalbuphine (5 sources) Nalbuphine; Translations: [Nalbuphine] Drug Allergy 3 Nausea (finding) [facility] Comment on above: pt states when takin g it becamse dizzy and nauseated was pregant had to be rushed back to surgery. Simethicone (1 source) Simethicone; Translations: [simethicone] Drug Allergy Weal (disorder) [facility] (20 sources) Nalbuphine; Translations: [Unknown] Drug Allergy 3 [place] (20 sources) Nalbuphine; Translations: [nalbuphine] Drug Allergy 3 Nausea and Vomiting, Nausea (finding), Dizziness, GI intolerance, Nausea Only, Palpitations, Rash, Vomiting, Nausea, Tachycardia, Intolerance, Other: See Comments [facility] Comment on above: pt states when reid villaseñor it becamse dizzy and nauseated was pregant had to be rushed back to surgery. (5 sources) Nalbuphine; Translations: [Nubain] Drug Allergy 3 [facility] (20 sources) Silicone (simethicone) obsolete; Translations: [Silicone (simethicone) obsolete] Propensity to adverse reactions (disorder) Weal (disorder) [facility] Rep[facility] (20 sources) Silicone adhesive tape Propensity to adverse reactions to drug 3 [facility] (20 sources) Silicones; Translations: [SILICONE] Drug Allergy 3 [facility] (12 sources) Silicone Propensity to adverse reactions 3 [facility] (12 sources) Wound Dressing Adhesive Drug Intolerance [address] [facility] (9 sources) Adhesive agent; Translations: [ADHESIVE] Propensity to adverse reactions to drug 3 [facility] (6 sources) Silicone Propensity to adverse reactions to drug 3 [facility] (20 sources) Adhesive Tape; Translations: [ADHESIVE TAPE (ROSINS)] Allergy to substance 3 [facility] Medications Current Medications Medication Drug Class(es) Dates Sig (Normalized) Sig (Original) acetaminophen 500 mg oral tablet (12 sources) Start: 02-23-2025 acetaminophen (ACETAMINOPHEN EXTRA STRENGTH) 500 mg tablet Take 1 tablet every 6 to 8 hours as needed for pain 40 tablet 02/23/2025 Active Start: 09-28-2023 End: 09-28-2023 acetaminophen (TYLENOL) tabl et 1,000 mg Start: 08-24-2023 acetaminophen (TYLENOL) tablet 650 mg Start: 01-18-2021 End: 01-18-2021 acetaminophen (TYLENOL) tabl et 1,000 mg Acetaminophen / HYDROcodone (2 sources) Opioid Agonist Start: 02-18-2021 hydrocodone-ac etaminophen (NORCO) tablet 5-325 mg (STARTER PACK) Start: [...] / oxyCODONE hydrochloride 5 mg oral tablet (20 sources) Opioid Agonist Start: 09-01-2023 End: 09-04-2023 [...] mouth nightly as needed for Pain. Active amoxicillin 875 mg / clavulanate 125 mg oral tablet (2 sources) Penicillin-class Antibacterial Start: 12-11-2023 End: 12-18-2023 take 1 tablet by mouth twice daily amoxicillin-clavulanate (AUGMENTIN) 875-125 MG per tablet Take 1 tablet by mouth 2 times daily for 7 days 14 tablet 0 12/11/2023 12/18/2023 Active Start: 12-11-2023 End: 12-11-2023 amoxicillin-clavulanate (AUG MENTIN) 875-125 MG per tablet 1 tablet Apri (9 sources) Start: 02-20-2024 take 1 tablet by mouth once daily Apri 1 tab(s), Oral, Daily, Refill(s) 0 Start Date: 02/20/24 Status: Ordered ALEXIA OVALLES crea (20 sources) Start: 11-14-2024 BASE, ALEXIA VANPEN crea Apply 1 application to affected area once daily. 11/14/2024 Active benzonatate 100 mg oral capsule (1 source) [...] symptoms, # 30 cap(s), Refills(s) 1, Pharmacy: [facility] [id number], 161.6, cm, 12/20/23 10:24:00 EDT, Height/Length Dosing, [...] Aminoglycoside Antibacterial, Corticosteroid Start: 06-13-2022 End: 06-23-2022 [id number] s one-thonzonium (CORTISPORIN-TC) 3.3-3-10-0.5 MG/ML otic suspension Indications: Acute otitis externa of right ear, unspecified type Place 4 drops into the right ear 4 times daily for 10 days 10 mL 0 06/13/2022 06/23/2022 Active cyclobenzaprine hydrochloride 10 mg oral tablet (4 sources) Muscle Relaxant Start: 12-19-2024 End: 12-29-2024 take 1 tablet by mouth three times daily as needed for muscle spasms cyclobenzaprine (FLEXERIL) 10 MG tablet Take 1 tablet by mouth 3 times daily as needed for Muscle spasms 21 tablet 12/19/2024 12/29/2024 Active Start: 12-03-2024 End: 12-13-2024 take 1 tablet by mouth three times daily as needed for muscle spasms cyclobenzaprine (FLEXERIL) 10 MG tablet Take 1 tablet by mouth 3 times daily as needed for Muscle spasms 21 tablet 12/03/2024 12/13/2024 Active Start: 09-17-2024 take 1 tablet by marc once daily cyclobenzaprine (FLEXERIL) 10 mg tablet Indications: Fibromyalgia Take 1 tablet (10 mg total) by mouth nightly. 30 tablet 2 09/17/2024 Active 24 hr desvenlafaxine succinate 100 mg [...] mouth daily 90 tablet 1 08/19/2021 Active docusate sodium 100 mg oral capsule (9 sources) Start: 02-23-2025 take 1 capsule by mouth twice daily docusate sodium (COLACE) 100 mg capsule Indications: constipation Take 1 capsule by mouth two times a day. 60 capsule 02/23/2025 Active DULoxetine 30 mg delayed release oral capsule [...] (20 sources) Proton Pump Inhibitor Start: 09-25-2023 End: 08-06-2024 take 1 capsule by mouth once daily esomeprazole (NEXIUM) 20 mg capsule Take 20 mg by mouth once daily. 09/25/2023 Active End: 09-11-2023 take 1 dose by mouth once daily esomeprazole Magnesium (NEXIUM) 20 MG PACK Take 1 packet by mouth daily Active estradiol 0.004 mg vaginal insert (20 sources) Estrogen Start: 02-19-[address] Pack (Imvexxy Starter Pack) 4 MCG insert Indications: Dyspareunia, female , Hormone disorder , Pelvic pain in female Insert 1 Insert into the vagina 2 (two) times a week 8 each 3 02/19/2025 Active Start: 01-28-2025 estradiol (Est race) 0.1 MG/GM vaginal cream Indications: Hormone disorder 2g vaginal daily for 2 weeks, then 2 times weekly following initial 2 weeks 42.5 g 01/28/2025 Active Start: 12-13-2023 ESTRADIOL 1 MG TABLET ESTRADIOL 1 MG TABLET Start Date: 12/13/23 Status: Ordered Start: 10-09-2023 End: 01-28-2025 take 1 tablet by mouth once daily estradiol (Estrace) 1 MG tablet Indications: Hormone disorder Take 1 tablet (1 mg) by mouth Daily Take 1 tablet by mouth for 30 days 30 tablet 3 06/09/2024 01/28/2025 Discontinued Start: 08-14-2023 take 1 tablet by marc th once daily Estradiol 0.5 MG tablet Take 1 tablet by mouth daily. 0 08/14/2023 Active ferrous gluconate 324 mg oral tablet (2 sources) Start: 06-29-2021 take 1 tablet by mouth twice daily ferrous gluconate 324 (37.5 Fe) MG TABS Take 1 tablet by mouth 2 times daily 60 tablet 3 06/29/2021 Active fluticasone propionate 0.05 mg/actuat metered dose nasal spray (7 sources) Corticosteroid Start: 01-09-2024 take 2 spray(s) nasal route in the morning fluticasone propionate (FLONASE) 50 mcg/actuation nasal spray Administer 2 sprays into each nostril in the morning. 16 g 5 01/09/2024 Active gabapentin 100 mg oral capsule (2 sources) Anti-epileptic Agent Start: 12-19-2024 End: 12-24-2024 take 1 capsule by mouth every six hours as needed for pain gabapentin (NEURONTIN) 100 MG capsule Take 1 capsule by mouth every 6 hours as needed (Pain) for up to 5 days. 12 capsule 12/19/2024 12/24/2024 Active Start: 12-19-2024 take 1 dose by mouth once 200 mg, Oral, Once, 1 dose, On Sun12/19/24 at 1130 gentamicin 3 mg/ml ophthalmic solution (1 source) Start: 12-16-2022 End: 12-26-2022 gentamicin (GARAMYCIN) 0.3 % ophthalmic solution 1 drop hydrocortisone 10 mg/ml / neomycin 3.5 mg/ml / polymyxin b 76679 unt/ml otic solution (3 sources) Aminoglycoside Antibacterial, Polymyxin-class Antibacterial, Corticosteroid Start: 06-14-2022 End: 06-24-2022 neomycin-polymyxin- hydrocortisone (CORTISPORIN) 3.5-15580-3 otic solution Indications: Acute otitis externa of right ear, unspecified type Place 4 drops into the right ear 3 times daily for 10 days Instill into right Ear 1 each 0 06/14/2022 06/24/2022 Active neomycin-polymyx in-hydrocortisone 1 % SOLN otic solution 1 % 0 Active ibuprofen 400 mg oral tablet (20 sources) Nonsteroidal Anti-inflammatory Drug Start: 09-28-2023 take 1 tablet by mouth every six hours as needed for pain ibuprofen (IBU) 400 MG tablet Take 1 tablet by mouth every 6 hours as needed for Pain 30 tablet 09/28/2023 Active Start: 02-18-2021 End: 02-18-2021 ibuprofen (ADVIL;MOTRIN) tab let 600 mg Start: 11-06-2017 End: 01-18-2021 take 1 tablet by mouth three times daily as needed for pain ibuprofen (ADVIL;MOTRIN) 600 MG tablet Take 1 tablet by mouth 3 times daily as needed for Pain (Take with food.) 15 tablet 0 11/06/2017 01/18/2021 Discontinued (LIST CLEANUP) ketorolac tromethamine 10 mg oral tablet (20 sources) Nonsteroidal Anti-inflammatory Drug, Cyclooxygenase Inhibitor Start: 12-19-2024 take 1 tablet by mouth every six hours as needed for pain ketorolac (TORADOL) 10 MG tablet Take 1 tablet by mouth every 6 hours as needed for Pain 10 tablet 12/19/2024 Active Start: 12-19-2024 30 mg, IntraVE Nous, ONCE, 1 dose, On Sun12/19/24 at 1130, Do not administer for more than 5 days. Start: 01-29-2020 ketorolac (TOR ADOL) injection 30 mg Start: 01-29-2020 take 1 [...] topically daily. 396 g 1 08/19/2021 Active lidocaine 0.05 mg/mg medicated patch (20 sources) Antiarrhythmic, Amide Local Anesthetic Start: 12-19-2024 1 patch, TransDERmal , Administer over 12 Hours, DAILY, First dose on Sun12/19/24 at 1130, Apply patch to back. The audio visual tech's recommendations for the number of patches that can be applied within a 24-hour period varies from 1 to 4 times daily and the duration of application varies from 8 to 24 hours; refer to the audio visual tech's labeling for product-specific recommendations. Start: 01-06-2024 End: 12-19-2024 apply 1 dose transdermal route once daily lidocaine (LIDODERM) 5 % Place 1 patch onto the skin daily 12 hours on, 12 hours off. 30 patch 12/19/2024 Active Start: 03-15-2023 End: 08-17-2023 apply 1 dose transdermal route once daily lidocaine (LIDODERM) 5 % Place 1 patch onto the skin daily 12 hours on, 12 hours off. 30 patch 0 03/15/2023 08/17/2023 Discontinued (Therapy completed) 12 hr loratadine 5 mg / pseudoephedrine sulfate 120 mg extended release oral tablet (3 sources) alpha-Adrenergic Agonist Start: 09-28-2023 End: 10-08-2023 take 5-120 mg by mouth once loratadine-pseudoephedrine (CLARITIN-D 12HR) 5-120 MG per extended release [...] 2000 mg in 50 mL IVPB premix meloxicam 15 mg oral tablet (11 sources) Nonsteroidal Anti-inflammatory Drug Start: 12-01-2024 take 1 tablet by mouth once daily MOBIC 15 mg tablet Take 15 mg by mouth once daily. 12/01/2024 Active methocarbamol 500 mg oral tablet (20 sources) Muscle Relaxant Start: 02-23-2025 methocarbamol (ROBAXIN) 500 mg tablet Take 1 tablet every 6 to 8 hours as needed for pain or muscle spasms 40 tablet 02/23/2025 Active Start: 09-01-2023 take 1-2 tablets by mouth four times daily as needed for pain methocarbamol (ROBAXIN) 500 MG tablet 1 to 2 pills by mouth 4 times daily as needed muscle pain/spasm 56 tablet 09/01/2023 Active methylPREDNISolone 4 mg oral tablet (13 sources) Corticosteroid Start: 12-04-2024 End: 12-10-2024 methylPREDNISolone (MEDROL, DIOGENES,) 4 MG tablet Start Medrol Dosepak tomorrow , 12/04/2024 and take daily as directed until complete 21 tablet 12/04/2024 12/10/2024 Active Start: 01-12-2022 End: 08-06-2024 methylPREDNISolone (MEDROL, DIOGENES,) 4 mg tablet follow package directions 21 tablet 01/12/2022 08/06/2024 Discontinued Start: 01-12-2022 methylPREDNISo lone (MEDROL, DIOGENES,) 4 mg tablet follow package directions 21 tablet 01/12/2022 Active Start: 01-12-2022 methylPREDNISo lone (MEDROL, DIOGENES,) 4 mg tablet follow package [...] qPM, # 30 tab(s), Refills(s) 0, Pharmacy: [facility] [id number], 161.6, cm, 12/20/23 10:24:00 EDT, Height/Length Dosing, 77, kg, 12/20/23 10:24:00 EDT, Weight Dosing Start Date: 12/20/23 Status: Ordered multivit-minerals/ folic acid (WOMEN'S MULTIVITAMIN GUMMIES ORAL) (3 sources) take 50 mL by mouth in the morning multivit-minerals/f olic acid (WOMEN'S MULTIVITAMIN GUMMIES ORAL) Take 50 mL by mouth in the morning. Active naproxen 500 mg oral tablet (20 sources) Nonsteroidal Anti-inflammatory Drug Start: 04-06-2025 End: 05-06-2025 take 1 tablet by mouth twice daily at mealtime naproxen (NAPROSYN) 500 mg tablet Take 1 tablet by mouth two times a day with meals. TAKE WITH FOOD. 60 tablet 04/06/2025 05/06/2025 Active Start: 04-06-2022 End: 03-16-2025 take 1 tablet by mouth twice daily at mealtime naproxen (NAPROSYN) 500 mg tablet Take 1 tablet by mouth two times a day with meals for 21 days. 42 tablet 02/23/2025 03/16/2025 Active Start: 04-06-2022 End: 01-28-2025 take 1 tablet by mouth every twelve hours naproxen (Naprosyn) 500 MG tablet Take 500 mg by mouth every 12 (twelve) hours. 04/06/2022 01/28/2025 Discontinued take 1 tablet by marc th twice daily at mealtime naproxen (NAPROSYN) 250 mg tablet Take 250 mg by mouth two times a day with meals. Active take 1 tablet by marc th [...] 10 mL 0 12/12/2023 12/16/2023 Active ondansetron 4 mg disintegrating oral tablet (13 sources) Serotonin-3 Receptor Antagonist Start: 02-23-2025 take 1 tablet by mouth every eight hours as needed ondansetron orally disintegrating (ZOFRAN ODT) 4 mg disintegrating tablet Take 1 tablet by mouth every 8 hours as needed for nausea/vomiting. 9 tablet 02/23/2025 Active Start: 09-01-2023 End: 09-01-2023 ondansetron (ZOFRAN-ODT) disintegrating tablet 4 mg Start: 02-18-2021 take 1 tablet by marc th every eight hours as needed for nausea ondansetron (ZOFRAN ODT) 4 MG disintegrating tablet Take 1 tablet by mouth every 8 hours as needed for Nausea 20 tablet 0 02/18/2021 Active ondansetron (ZOFRAN-ODT) disintegrating tablet 4 mg (1 source) Start: 08-24-2023 ondansetron (ZOFRAN-ODT) disintegrating tablet 4 mg oxyCODONE hydrochloride 5 mg oral tablet (1 source) Opioid Agonist Start: 02-23-2025 End: 02-26-2025 oxyCODONE IR (ROXICODONE) 5 mg immediate release tablet Indications: pain Take 1 tablet every 6 to 8 hours as needed for severe pain for 3 days 10 tablet 02/23/2025 02/26/2025 Active phentermine hydrochloride 37.5 mg oral tablet (20 sources) Sympathomimetic Amine Anorectic Start: 01-22-2024 take 1 tablet by mouth once daily phentermine 37.5 mg Tab 37.5 mg = 1 tab(s), Oral,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 Peripheral and visceral atherosclerosis (12 sources) Peripheral vascular disease 02-20-2024 Chronic Poisoning by nonmedicinal substances (1 source) Tick bite; Translations: [Tick bite with subsequent removal of tick] Episodic Residual codes; unclassified (14 sources) Abnormal rapid eye movement sleep 12-20-2023 Chronic Residual codes; unclassified (14 sources) Obstructive sleep apnea syndrome 12-20-2023 Chronic Residual codes; unclassified (3 sources) Other specified postprocedural states; Translations: [Other specified postprocedural states] Onset: 08-24-2023 Episodic Residual codes; unclassified (1 source) Diffuse pain; Translations: [Pain, unspecified] 01-05-2025 Episodic Residual codes; unclassified (1 source) History of operative procedure on hip; Translations: [Other specified postprocedural states] 04-13-2025 Episodic Screening and history of mental health and substance abuse codes (1 source) H/O: attempted suicide; Translations: [History of suicide attempt] 01-05-2025 Episodic Spondylosis; intervertebral disc disorders; other back problems (12 sources) Degeneration of lumbosacral intervertebral disc; Translations: [Other intervertebral disc degeneration, lumbosacral region] Onset: 04-11-2022 04-11-2022 Chronic Superficial injury; contusion (1 source) Contusion of face; Translations: [Contusion of other part of head, initial encounter] Episodic Unclassified (1 source) Injury of left knee; Translations: [Injury of left knee, initial encounter] Unclassified (20 sources) Patient encounter status 10-25-2023 Unclassified (2 sources) Non-smoker 07-28-2024 Unclassified (1 source) Ear Drainage Onset: 01-09-2024 Unclassified (1 source) Bollous myringitis Onset: 12-11-2023 Unclassified (6 sources) History of lumbar fusion 12-15-2024 Unclassified (1 source) Obesity, Class I, BMI 30-34.9; Translations: [Obesity, Class I, BMI 30-34.9] Onset: 02-16-2025 Unclassified (1 source) Post Op Onset: 04-10-2025 Unclassified (1 source) Other intervertebral disc degeneration, lumbar region with discogenic back pain and lower extremity pain; Translations: [Other intervertebral disc degeneration, lumbar region with discogenic back pain and lower extremity pain] Onset: 12-19-2024 Viral infection (2 sources) Disease caused by 2019-nCoV; Translations: [COVID-19] Episodic Past or Other Problems Problem Classification Problem Date Documented Da te Episodic/Chronic Abdominal pain (20 sources) Abdominal pain; Translations: [Unspecified abdominal pain] Onset: 08-28-2018 Resolved: 08-18-2022 08-28-2018 Episodic Calculus of urinary tract (12 sources) Kidney stone; Translations: [Calculus of kidney] Onset: 03-23-2023 03-23-2023 Episodic Cancer of cervix (12 sources) Cervicovaginal cytology: Low grade squamous intraepithelial lesion; Translations: [Low grade squamous intraepithelial lesion on cytologic smear of cervix (LGSIL)] Onset: 03-23-2023 03-23-2023 Episodic Complications of surgical procedures or medical care (20 sources) Complication of procedure; Translations: [Unspecified complication of procedure, initial encounter] Onset: 08-24-2023 08-25-2023 Episodic Diabetes mellitus without complication (20 sources) Hyperglycemia; Translations: [Impaired fasting glucose] Onset: 02-16-2022 04-11-2022 Episodic E Codes: Natural/environment (20 sources) Repetitive motion disorder; Translations: [Overexertion from repetitive movements, initial encounter] Onset: 04-12-2018 Resolved: 08-18-2022 04-12-2018 Episodic Early or threatened labor (14 sources) Threatened premature labor - not delivered ; Translations: [False labor before 37 completed weeks of gestation, unspecified trimester] Onset: 04-28-2017 04-11-2022 Episodic Headache; including migraine (8 sources) Tension-type headache; Translations: [Headache disorder] Onset: 08-28-2018 08-28-2018 Episodic Immunizations and screening for infectious disease (1 source) Encounter for screening for human papillomavirus (HPV); Translations: [ENC SCREENING HUMAN PAPILLOMAVIRUS] Onset: 03-28-2022 Episodic Malaise and fatigue (19 sources) Fatigue; Translations: [Other fatigue] Onset: 08-28-2018 08-28-2018 Episodic Nonmalignant breast conditions (20 sources) Large breast; Translations: [Hypertrophy of breast] Onset: 04-06-2022 Episodic Other aftercare (1 source) Follow-up status; Translations: [Encounter for follow-up examination after completed treatment for conditions other than malignant neoplasm] Onset: 03-23-2023 03-23-2023 Episodic Other aftercare (12 sources) Postoperative visit; Translations: [Encounter for other specified surgical aftercare] Onset: 06-19-2023 06-19-2023 Episodic Other bone disease and musculoskeletal deformities (1 source) Disorder of skeletal system; Translations: [Disorder of bone, unspecified] Onset: 09-11-2023 Resolved: 09-11-2023 09-11-2023 Episodic Other circulatory disease (1 source) Orthostatic hypotension; Translations: [Orthostatic hypotension] Onset: 10-15-2024 Episodic Other connective tissue disease (1 source) H/O: arthritis; Translations: [Personal history of other diseases of the musculoskeletal system and connective tissue] Onset: 09-11-2023 Resolved: 09-11-2023 09-11-2023 Episodic Other ear and sense organ disorders (1 source) Otorrhea, left ear; Translations: [Otorrhea, left ear] Onset: 12-11-2023 Episodic Other ear and sense organ disorders (2 sources) Otorrhea of left ear; Translations: [Otorrhea, left ear] 01-09-2024 Episodic Other female genital disorders (12 sources) Pruritus of vagina; Translations: [Other specified noninflammatory disorders of vagina] Onset: 03-23-2023 03-23-2023 Episodic Other gastrointestinal disorders (12 sources) Constipation; Translations: [Other constipation] Onset: 02-14-2024 02-14-2024 Episodic Other injuries and conditions due to external causes (13 sources) Repetitive strain injury; Translations: [Overuse syndrome] Onset: 04-12-2018 04-12-2018 Episodic Other nervous system disorders (2 sources) Paresthesia of skin; Translations: [Paresthesia of skin] Onset: 12-03-2024 Episodic Other nervous system disorders (1 source) Anesthesia of skin; Translations: [Anesthesia of skin] Onset: 12-03-2024 Episodic Other non-traumatic joint disorders (7 sources) Pain in left knee; Translations: [Pain in joint, lower leg] Onset: 04-11-2022 04-11-2022 Episodic Other non-traumatic joint disorders (20 sources) Hip pain; Translations: [Pain in right hip] Onset: 08-18-2022 08-18-2022 Episodic Other non-traumatic joint disorders (5 sources) Pain in right knee; Translations: [PAIN IN RIGHT KNEE] Onset: 09-21-2022 Episodic Other non-traumatic joint disorders (5 sources) Pain in right hip; Translations: [Pain in right hip] Onset: 08-18-2022 Episodic Other non-traumatic joint disorders (1 source) Pain in left hip; Translations: [Pain in left hip] Onset: 08-18-2022 Episodic Other screening for suspected conditions (not mental disorders or infectious disease) (20 sources) Patient encounter status; Translations: [Encounter for screening for lipoid disorders] Onset: 01-18-2023 Episodic Other upper respiratory disease (1 source) Other specified disorders of nose and nasal sinuses; Translations: [Other specified disorders of nose and nasal sinuses] Onset: 03-06-2024 Episodic Other upper respiratory disease (1 source) Nasal congestion; Translations: [Nasal congestion] 01-09-2024 Episodic Ovarian cyst (12 sources) Complex ovarian cyst; Translations: [Other ovarian cyst, unspecified side] Onset: 03-23-2023 03-23-2023 Episodic Residual codes; unclassified (20 sources) Postoperative state; Translations: [Other specified postprocedural states] Onset: 08-24-2023 Resolved: 09-23-2023 08-25-2023 Episodic Spondylosis; intervertebral disc disorders; other back problems (20 sources) Low back pain; Translations: [Lumbar radiculopathy] Onset: 04-06-2022 Episodic Sprains and strains (20 sources) Strain of back muscle; Translations: [Strain of muscle, fascia and tendon of lower back, initial encounter] Onset: 04-12-2018 Resolved: 08-18-2022 04-12-2018 Episodic Results Test Name Value Interpretation Reference Range Facility Ambulatory Visit Summaryon 0 04-30-2025 Ambulatory Visit Summary Ambulatory Visit Summary ASHLEE JALLOH :1985 Visit Date:04/30/2025 Ambulatory Visit Instructions Your Diagnosis Encounter for weight management Your Care Team Attending Physician - Lidia Jones Primary Care Physician - Lidia Jones This Is Your Medications List esomeprazole (Nexium 20 mg Cap-DR) naproxen (naproxen 500 mg Tab) phentermine (Adipex-P 37.5 mg Tab) pregabalin (pregabalin 50 mg Cap) Procedures Performed Surgery (2022), Surgery (2022), Surgery (2020), delivery (2016), delivery, Hysterectomy, Surgery. Discharge Vitals Temperature (Temporal Artery) 36.4 ???C Heart Rate (Peripheral) 77 Respiratory Rate 18 Blood Pressure 102/74 Height 161.0 cm Height 63 in Weight 88.8 kg Weight 195.77 lb BMI 34.26 What to do next Scheduled Follow-Up Appointments 2024 2:20 PM EDT With: Lidia Jones Where: [place] [id number]- Medications What How Much When Why Instructions Unchanged esomeprazole (Nexium 20 mg Cap-DR) 1 Capsules By Mouth Every day Unchanged naproxen (naproxen 500 mg Tab) 1 Tablets By Mouth 2 times a day Unchanged phentermine (Adipex-P 37.5 mg Tab) 1 Tablets By Mouth Every day Right carpal tunnel syndrome Encounter for weight management Unchanged pregabalin (pregabalin 50 mg Cap) 75 Milligram By Mouth 3 times a day Allergies Nubain (Nausea) Silicone (simethicone) obsolete (Hives) Problems Ongoing - Any problem that you are currently receiving treatment for. Abnormal rapid eye movement sleep Allergies Anemia Angiolipoma of right kidney Blisters of multiple sites BMI 33.0-33.9,adult Brain fog Class 1 obesity with body mass index (BMI) of 31.0 to 31.9 in adult Cold feet Daytime somnolence Encounter for weight management Flank pain Fluid level behind tympanic membrane of both ears Hip pain Hypercholesteremia Leg pain, bilateral Loud snoring Low back pain Low blood pressure Migraine headache Myringitis of left ear Nasal septal perforation Neck pain Nonsmoker Numbness of both lower extremities Obstructive apnea Pain in finger Poor circulation of extremity Posttraumatic stress disorder Pre-op exam PTSD (post-traumatic stress disorder) Recurrent severe major depressive disorder co-occurrent with anxiety Right carpal tunnel syndrome Screening for thyroid disorder Sensory disorder Tingling of right upper extremity Vertigo Weight gain Witnessed episode of apnea Patient Survey You may receive a survey via text or e-mail asking about your office visit. Please share your experience with us by completing your survey. We appreciate your feedback and thank you for choosing us for your care. Patient Portal You may access all of your results and other medical record information on our secure patient portal. If you are not signed up for this yet, please contact [employer] at [phone] to get signed up today. Language Information Language assistance services are available as needed. Normal [facility] Family Medicine Office/Clini c Noteon 04-30-2025 Family Medicine Office/Clinic Note Family Medicine Office/Clinic Note HPI Staff Ashlee is a 40 year old female presenting with wanting to restart Adipex She had to go off because of her surgery on February 13 she has gained 5 lbs. from her last visit She said that she is hungry all the time History of Present Illness pt presents today for weight manamgent Review of Systems PHQ Score Initial Depression Screen Score: 0 SCORE Physical Exam Vitals & Measurements T: 36.4 ???C(Temporal Artery) HR: 77(Peripheral) RR: 18 BP: 102/74 SpO2: 98% HT: 161.0 cm HT: 63 in WT: 88.8 kg WT: 195.77 lb BMI: 34.26 General: alert, no acute distress ENMT: oral [...] circumstances) pt presents today for weight management. would like to start Adipex-P. med agreement updated. UDS obtained all negative. will start adipex. RTC 1 month Ordered: phentermine, 37.5 mg = 1 tab(s), Oral, Daily, # 30 tab(s), Refills(s) 0, Pharmacy: [facility] [id number], 161, cm, 04/30/25 13:28:00 EDT, Height/Length Dosing, 88.8, kg, 04/30/25 13:28:00 EDT, Weight Dosing Drug Screen POC 01274 2. Nonsmoker (Z78.9: Other specified health status) continue not smoking Ordered: phentermine, 37.5 mg = 1 tab(s), Oral, Daily, # 30 tab(s), Refills(s) 0, Pharmacy: [facility] [id number], 161, cm, 04/30/25 13:28:00 EDT, Height/Length Dosing, 88.8, kg, 04/30/25 13:28:00 EDT, Weight Dosing 3. BMI 34.0-34.9,adult (Z68.34: Body mass index [BMI] 34.0-34.9, adult) BMI education Ordered: phentermine, 37.5 mg = 1 tab(s), Oral, Daily, # 30 tab(s), Refills(s) 0, Pharmacy: [facility] [id number], 161, cm, 04/30/25 13:28:00 EDT, Height/Length Dosing, 88.8, kg, 04/30/25 13:28:00 EDT, Weight Dosing Follow-up No qualifying data available Problem List/Past Medical History Ongoing Abnormal rapid eye movement sleep Allergies Anemia Angiolipoma of right kidney Blisters of multiple sites Brain fog Class 1 obesity with body mass index (BMI) of 31.0 to 31.9 in adult Cold feet Daytime somnolence Encounter for weight management Flank pain Fluid level behind tympanic membrane of both ears Hip pain Hypercholesteremia Leg pain, bilateral Loud snoring Low back pain Low blood pressure Migraine headache Myringitis of left ear Nasal septal perforation Neck pain Nonsmoker Numbness of both lower extremities Obstructive apnea Pain in finger Poor circulation of extremity Posttraumatic stress disorder Pre-op exam PTSD (post-traumatic stress disorder) Recurrent severe major depressive disorder co-occurrent with anxiety Right carpal tunnel syndrome Screening for thyroid disorder Sensory disorder Tingling of right upper extremity Vertigo Weight gain Witnessed episode of apnea Historical No qualifying data Procedure/Surgical History Surgery (2022), Surgery (2022), Surgery (2020), delivery (2016), delivery, Hysterectomy, Surgery. Medications Adipex-P 37.5 mg Tab, 37.5 mg= 1 tab(s), Oral, Daily, Not taking naproxen 500 mg Tab, 500 mg= 1 tab(s), Oral, BID Nexium 20 mg Cap-DR, 20 mg= 1 cap(s), Oral, Daily phentermine 37.5 mg Tab, 37.5 mg= 1 tab(s), Oral, Daily pregabalin 50 mg Cap, 75 mg, Oral, TID Allergies Nubain (Nausea) Silicone (simethicone) obsolete (Hives) Social History Alcohol Never., 06/30/2024 Substance Abuse Never., 06/30/2024 Tobacco Never (less than 100 in lifetime) Tobacco Use:. Never Smokeless Tobacco Use:. Cigarettes, Household tobacco concerns: No. Yes, 04/30/2025 Family History Patient was adopted Family history is negative Immunizations Vaccine Date Status Comments influenza virus vaccine, inactivated 07/07/2022 Recorded SARS-CoV-2 (COVID-19) mRNA BNT-162b2 vax 02/25/2021 Recorded 2023-05-18: TPVAL SARS-CoV-2 (COVID-19) mRNA BNT-162b2 vax 02/04/2021 Recorded 2023-05-18: TPVAL influenza virus vaccine, inactivated 07/02/2020 Recorded influenza virus vaccine, inactivated 07/14/2019 Recorded Lab Results Ambulatory Point of Care Results Cocaine Result: Negative (04/30/25 13:54:00) Amphetamines Result: Positive (04/30/25 13:54:00) Barbiturates Result: Negative (04/30/25 13:54:00) MDMA Result: Negative (04/30/25 13:54:00) Methadone Result: Negative (04/30/25 13:54:00) Opiates Result: Negative (04/30/25 13:54:00) Oxycodone Result: Negative (04/30/25 13:54:00) Phencyclidine (PCP) Result: Negative (04/30/25 13:54:00) Tricyclic Antidepressants Result: Negative (04/30/25 13:54:00) Benzodiazepines Quant: Negative (04/30/25 13:54:00) THC Result POC: (more content not included)... Normal [facility] Comment on above: Result Comment: Elec tronically Signed By: Lidia Jones\.br\Date and Time Signed: 04/30/25 13:59 EDT Ambulatory Visit Summaryon 0 04-14-2025 Ambulatory Visit Summary Ambulatory Visit Summary SHUBHAMASHLEE NOLAN :1985 Visit Date:04/14/2025 Ambulatory Visit Instructions Your Diagnosis Left ear hearing loss BMI 33.0-33.9,adult, Body mass index [BMI] 33.0-33.9, adult Class 1 obesity due to excess calories with body mass index (BMI) of 33.0 to 33.9 in adult Non-smoker Other obesity due to excess calories Your Care Team Attending Physician - ELIZABETH APODACA CNP Primary Care Physician - Lidia Jones This Is Your Medications List esomeprazole (Nexium 20 mg Cap-DR) meloxicam (meloxicam 15 mg Tab) naproxen (naproxen 500 mg Tab) phentermine (Adipex-P 37.5 mg Tab) pregabalin (pregabalin 50 mg Cap) Procedures Performed Surgery (2022), Surgery (2022), Surgery (2020), delivery (2016), delivery, Hysterectomy, Surgery. Discharge Vitals Temperature (Temporal Artery) 36.2 ???C Heart Rate (Peripheral) 78 Respiratory Rate 18 Blood Pressure 118/80 Height 161.0 cm Height 63 in Weight 87.0 kg Weight 191.802 lb BMI 33.56 What to do next Scheduled Follow-Up Appointments 2024 1:20 PM EDT With: Lidia Jones Where: [place] [id number]- Medications What How Much When Why Instructions New meloxicam (meloxicam 15 mg Tab) 30 tab(s), 0 Refill(s) Unchanged esomeprazole (Nexium 20 mg Cap-DR) 1 Capsules By Mouth Every day Unchanged naproxen (naproxen 500 mg Tab) 1 Tablets By Mouth 2 times a day Unchanged phentermine (Adipex-P 37.5 mg Tab) 1 Tablets By Mouth Every day Right carpal tunnel syndrome Encounter for weight management Unchanged pregabalin (pregabalin 50 mg Cap) 75 Milligram By Mouth 3 times a day Allergies Nubain (Nausea) Silicone (simethicone) obsolete (Hives) Problems Ongoing - Any problem that you are currently receiving treatment for. Abnormal rapid eye movement sleep Allergies Anemia Angiolipoma of right kidney Blisters of multiple sites BMI 33.0-33.9,adult Brain fog Class 1 obesity with body mass index (BMI) of 31.0 to 31.9 in adult Cold feet Daytime somnolence Encounter for weight management Flank pain Fluid level behind tympanic membrane of both ears Hip pain Hypercholesteremia Leg pain, bilateral Loud snoring Low back pain Low blood pressure Migraine headache Myringitis of left ear Nasal septal perforation Neck pain Nonsmoker Numbness of both lower extremities Obstructive apnea Pain in finger Poor circulation of extremity Posttraumatic stress disorder Pre-op exam PTSD (post-traumatic stress disorder) Recurrent severe major depressive disorder co-occurrent with anxiety Right carpal tunnel syndrome Screening for thyroid disorder Sensory disorder Tingling of right upper extremity Vertigo Weight gain Witnessed episode of apnea Patient Survey You may receive a survey via text or e-mail asking about your office visit. Please share your experience with us by completing your survey. We appreciate your feedback and thank you for choosing us for your care. Patient Portal You may access all of your results and other medical record information on our secure patient portal. If you are not signed up for this yet, please contact [employer] at [phone] to get signed up today. Language Information Language assistance services are available as needed. Dickson [place] [facility] Family Medicine Office/Clini c Noteon 04-14-2025 Family Medicine Office/Clinic Note Family Medicine Office/Clinic Note Chief Complaint The patient presents with left ear hearing loss and recurrent ear infections. HPI Staff Ashlee is a 40 year old female presenting with can not hear out of left ear Onset: started a week to a week and half ago Fevers: NO Sinus congestion: NO Sneezing: YES Ear pain: NO Ear itching, popping, fullness, ringing, muffled hearing: MUFFLED Ear drainage: has green stinky discharge Swollen nodes: Sore throat: no Ear pain worse with chewing: no Itching: no Difficulty hearing: left ear ENT- [facility] a year ago Tried nothing for this I have reviewed and verified the staff HPI to be accurate for this encounter. History of Present Illness 40-year-old female presenting with left ear hearing loss and recurrent ear infections. The hearing loss in the left ear has been ongoing for approximately a week and a half, with no recent exposure to water or air travel. The patient reports a green, malodorous discharge from the ear, which she associates with previous ear infections. The patient has a history of recurrent ear infections, with both tympanic membranes previously ruptured, leading to scarring and thinning. She experiences approximately two to three ear infections annually, requiring both oral and topical antibiotic treatments. Past infections have included a strep infection with bursitis-like symptoms in the ear. Review of Systems PHQ Score Initial Depression Screen Score: 0 SCORE - Ears: Reports left ear hearing loss and green, malodorous discharge. Denies recent water exposure or air travel. - Respiratory: Denies recent respiratory infections or symptoms. - Cardiovascular: Denies chest pain or palpitations. - Allergies: Reports allergy to Nuveen with severe reaction during labor. Physical Exam Vitals & Measurements T: 36.2 ???C(Temporal Artery) HR: 78(Peripheral) RR: 18 BP: 118/80 SpO2: 99% HT: 161.0 cm HT: 63 in WT: 87.0 kg WT: 191.802 lb BMI: 33.56 General: alert, no acute distress ENMT: Left ear shows redness and presence of pus. Cardiovascular: regular rate and rhythm, normal peripheral perfusion Respiratory: Lungs CTA, respirations non labored Extremities: no deformity, no trauma Neurological: oriented x 4, LOC appropriate for age speech normal Assessment/Plan 1. Acute serous otitis media, left ear (H65.02: Acute serous otitis media, left ear) Ordered: amoxicillin-clavulana te, 1 tab(s), Oral, q12hr for 7 day(s), 14 tab(s), Refill(s) 0, [facility] [id number], 161, cm, 04/14/25 10:52:00 EDT, Height/Length Dosing, 87, kg, 04/14/25 10:52:00 EDT, Weight Dosing ciprofloxacin-dexamet hasone otic, 4 drop(s), Otic, BID for 7 day(s), 7.5 mL, Refill(s) 0, Instill in the left ear, [facility] [id number], 161, cm, 04/14/25 10:52:00 EDT, Height/Length Dosing, 87, kg, 04/14/25 10:52:00 EDT, Weight Dosing 2. Left ear hearing loss (H91.92: Unspecified hearing loss, left ear) - Continue with oral antibiotics and ear drops as needed for recurrent infections. Ordered: amoxicillin-clavulana te, 1 tab(s), Oral, q12hr for 7 day(s), 14 tab(s), Refill(s) 0, [facility] [id number], 161, cm, 04/14/25 10:52:00 EDT, Height/Length Dosing, 87, kg, 04/14/25 10:52:00 EDT, Weight Dosing ciprofloxacin-dexamet hasone otic, 4 drop(s), Otic, BID for 7 day(s), 7.5 mL, Refill(s) 0, Instill in the left ear, [facility] [id number], 161, cm, 04/14/25 10:52:00 EDT, Height/Length Dosing, 87, kg, 04/14/25 10:52:00 EDT, Weight Dosing 3. BMI 33.0-33.9,adult (Z68.33: Body mass index [BMI] 33.0-33.9, adult) BMI 33.56 Ordered: amoxicillin-clavulana te, 1 tab(s), Oral, q12hr for 7 day(s), 14 tab(s), Refill(s) 0, [facility] [id number], 161, cm, 04/14/25 10:52:00 EDT, Height/Length Dosing, 87, kg, 04/14/25 10:52:00 EDT, Weight Dosing ciprofloxacin-dexamet hasone otic, 4 drop(s), Otic, BID for 7 day(s), 7.5 mL, Refill(s) 0, Instill in the left ear, [facility] [id number], 161, cm, 04/14/25 10:52:00 EDT, Height/Length Dosing, 87, kg, 04/14/25 10:52:00 EDT, Weight Dosing 4. Class 1 obesity due to excess calories with body mass index (BMI) of 33.0 to 33.9 in adult (E66.811: Obesity, class 1) The standard range for ages 18 and older is >=18.5 and < 25 kg/m2. Your BMI today was above this range, this falls in the overweight to obese category and there are medical benefits to weight loss. We can offer counselling, referral, and/or medical support in addressing this problem. Your BMI and weight management will be followed at subsequent visits. Ordered: amoxicillin-clavulana te, 1 tab(s), Oral, q12hr for 7 day(s), 14 tab(s), Refill(s) 0, [facility] [id number], 161, cm, 04/14/25 10:52:00 EDT, Height/Length Dosing, 87, kg, 04/14/25 10:52:00 EDT, Weight Dosing ciprofloxacin-dexamet hasone otic, 4 drop(s), Otic, BID for 7 day(s), 7.5 mL, Refill(s) 0, Instill in the left ear, [facility] [id number], 161, cm, 04/14/25 10:52:00 EDT, Height/Length Dosing, 87, kg, 04/14/25 10:52:00 EDT, Weight Dosing (more content not included)... Normal [facility] Comment on above: Result Comment: Elec tronically Signed By: PAULIE NG, ELIZABETH Kruger\.br\Date and Time Signed: 04/14/25 11:15 EDT Norm 04-06-2025 CNOV Office Visit (PENNIE ) ASHLEE JALLOH ([id number]) 1985 F Date Time Provider Department 04/06/25 4:00 PM MYNOR GLASER During your visit today, we recorded the following information about you: Pulse Blood pressure Weight 96/minute 102/62 88.8 kg Mynor Glaser PA-C 04/06/2025 3:51 PM Signed Follow up with Dr. Rishabh Huang in 3 months or sooner if needed. Mynor Glaser PA-C 04/13/2025 12:54 PM Signed Pain Management Follow Up Visit Date: April 06, 2025 SUBJECTIVE Ashlee Jalloh is a 40-year-old female with a history of multiple back surgeries and fibromyalgia, presenting for follow-up on chronic back pain and diffuse pain management. Ashlee was initially seen by Dr. Rishabh Huang on 01/05/25 for lower back pain and was prescribed Lyrica 50 mg at night for 3-5 days, with instructions to titrate to 2-3 times a day as tolerated. She was also referred to pain psychology and a comprehensive pain recovery program, and water therapy was recommended. Since then, she has undergone arthroscopic labral tear repair of the right hip, femoroplasty, acetabuloplasty, and capsular closure on 02/23/[address] Encarnacion. She is also under the care of Dr. Gutierrez from physical medicine and rehab, with her last visit on 03/04/25. X-rays were ordered, and [facility]. Her last prescription for pregabalin 50 mg was filled on 03/25/25 for 90 tablets for 30 days, as prescribed by Dr. Huang. She also had a short prescription for oxycodone on 02/23/25 for 10 tablets for 3 days post-hip surgery. Ashlee reports that her hip pain has improved since the surgery, but she still experiences occasional pain. She does not feel any significant improvement in her diffuse pain since starting Lyrica and reports no side effects from the medication. Her back pain is described as constant and has been present since her first back surgery in June 2021, with subsequent surgeries in November 2021 and August 2023. She describes the pain as excruciating when working, particularly when bending or lifting. She experiences stiffness in her back, especially when getting up from a seated position, and reports that her back feels like somebody's trying to pull it out of me. She also experiences occasional radiation of pain to her posterior thighs, knees, and ankles, with numbness and tingling in both legs, varying in intensity and location. Ashlee reports that her back pain is worse with bending and describes a sensation of her back giving out when bending down and a searing pain when coming back up. She also experiences episodes of her legs giving out at work, occurring 1-2 times per shift, and occasionally at home on the stairs. She has not experienced any falls but reports that her legs feel wobbly when her back pain is severe. She is currently doing land-based physical therapy and reports good range of motion. She is not taking baby aspirin or fish oil and stopped taking naproxen after her dog destroyed the bottle. She requests a refill of naproxen 500 mg, as she was advised to continue taking it to minimize bone scarring and inflammation. She denies fever, chills, chest pain, shortness of breath, loss of bowel or bladder control, or dizziness. Information copied from last Pain Management note dated 01/05/25 with provider: Rishabh Huang MD Assessment AND Plan January 05, 2025 The primary encounter diagnosis was Fibromyalgia. Diagnoses of Diffuse pain, Back pain with history of spinal surgery, Status post lumbar spinal fusion, Chronic pain syndrome, and History of suicide attempt were also pertinent to this visit. Ashlee is a 39-year-old female with a history of multiple back surgeries, presenting with chronic pain and recent fibromyalgia diagnosis. Ashlee reports chronic pain in the hips, neck, and back, with no areas of the body free from pain. She has undergone multiple back surgeries, L4-5 fusion and SI joint fusion, without relief. The pain began in late 2018 to early 2019, initially presenting as migraines. A spine x-ray revealed a fusion of the tailbone and spine, initially suspected to be ankylosing spondylitis, but tests were negative. She subsequently developed a herniated disc at L4-L5, for which a discectomy was performed instead of removing the disc. This was followed by a fusion surgery, after which she experienced significant stress. Ashlee also reports a tear and bone spurs in the hip, with knees starting to go bone on bone. 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 An MRI was performed, but surgery was deemed unnecessary due to scarring. Both knees are affected similarly. Ashlee has a recent diagnosis of fibromyalgia, which she describes as causing widespread pain and touch sensitivity, particularly (more content not included)... Normal [facility] EMG(NEURO/NI)on 03-26-2025 Results can be seen in attached scanned documents. If you are a patient reviewing this test result, call the doctor who ordered the test with any questions. [facility] CNOVon 03-10-2025 CNOV Office Visit (SPHTB) ASHLEE JALLOH ([id number]) 1985 F Date Time Provider Department 03/10/25 1:30 PM MADYSON VILLAFUERTE SPHTB During your visit today, we recorded the following information about you: Delia Mckeon LPN 03/10/2025 4:27 PM Signed Three sutures removed for two incisions anterior hip. Pt tolerated. No redness no drainage noted to incisions. New steri strips applied. Madyson Villafuerte PA-C 03/10/2025 4:27 PM Signed Post Op Follow Up Visit Ashlee Jalloh returns 15 days s/p 1. right hip arthroscopy 2. Labral repair CPT 26072 3. Femoroplasty CPT 41485 4. Acetabuloplasty CPT 34301 5. Capsular Closure DOS: 02/23/25 Denies interim injury or trauma Brace intact Weight bearing: partial with 2 crutches Post op medication usage: Naproxen consistent use tolerating well Opioid took 1 tablet Muscle relaxant effective Physical therapy going well PAIN EVALUATION 03/03/2025 2157 03/10/2025 1320 Pain Level: 6 2 Pain Location: Back-Lower Hip-Right Description: Aching;Dull;Numbness; Shooting;Sore;Stabbin g/Not Incision;Stiffness;Th robbing Sore;Aching Duration Amount of Time: 12 2 Duration Units: Months Weeks Frequency: Continuous Intermittent Intervention/Comfort measure: Medication;Relaxation ;Cold;Heat;Massage;Pi llow support Exercise PT Review of Symptoms: General: no fevers, chills, nausea/vomiting, malaise CV: No chest pain, no calf pain or redness Pulm: No shortness of breath GI: No nausea, vomiting or constipation HEENT: No head ache Physical Examination: This is a well appearing, well nourished patient in no acute distress. Breathes easily and has normal chest wall excursion. Affect is normal. Right hip: Sutures removed without incident. Incisions healing well with no erythema, drainage, induration. There are no signs of infection. Wounds re-enforced with steri strips. decreased sensation in the distribution of the lateral femoral cutaneous nerve No discomfort with IR log roll Hip flexion to 90 degrees without pain External rotation at 90? to 60 degrees without pain Calves soft, non tender, no palpable cords 5/5 strength with resisted DF/EHL/PF bilaterally Impression: Approximately 2 weeks s/p right hip scope. No evidence of infection or DVT Plan: Discussed Intra operative and post operative course and expectations discussed. Arthroscopy pictures reviewed. Brace: Discontinue Weight Bearing: Progressive - use 2 crutches for minimum 3 days working up to 50 % weight bearing then if able to comfortably bear more than 50% weight transition to 1 crutch or cane for minimum 3 days - full weight bearing as tolerated day 3. Then continue cane/ crutch as needed to avoid limping Wound Care You can get your incisions wet in the shower, by allowing the water to run over them. Avoid scrubbing incisions. Do not soak or submerge your leg in a hot tub, bath tub or pool until you are at least 4 weeks post op and incisions well healed. Do not apply lotions or ointments to your incisions until you are 3 weeks post op and incisions are well healed. Medications: Finish Naproxen prescription. Then NSAID as needed for pain Pain medication - Over the Counter Tylenol (Acetaminophen) - Max 3000 mg per day Hip Motion Restrictions Flexion (bending hip) - 90 degrees - 2 weeks after surgery OK to sit on toilet and put shoes on as tolerated - you may have to slouch or lean back Extension - Neutral (0 degrees) - 3 weeks after surgery External Rotation with leg extended (straight) NEUTRAL ( 0 degrees) - 6 weeks after surgery * -Do not turn your foot out with your leg straight ABduction (bringing your hip away from your body) Shoulder Width - 3 weeks after surgery ADduction Neutral (0 degrees) 6 weeks after surgery * Do not cross your legs Place a pillow or 2 between your knees if laying on your side Extremes of motion and quick movements will continue to be uncomfortable It is normal to experience clicks, pops, cracks to varying degrees - as the scar tissue is maturing and you are gaining muscle strength and endurance Activities: Pay attention to soreness at the end of day - this is your guide to back off on activity - soreness should resolve/ improve within 24 hours Ok to sleep in any comfortable position - either side recommend pillow between your knees It is normal to have morning stiffness and soreness at the end of the day. Soreness should resolve within 24 hours. Monitor soreness if increasing daily - sign you are overdoing it. Physical therapy - not more than twice a week Continue to lay on your stomach for 4-6 times per day, for 10-15 minutes per session to stretch the front of your hip. Avoid walking for exercise Upright stationary bike for motion only over the next 3-4 weeks - do not have feet attached to pedals (no strap or clipping in) - can (more content not included)... Normal [facility] CNOVon 03-04-2025 CNOV Office Visit (SPNMMN ) ASHLEE JALLOH ([id number]) 1985 F Date Time Provider Department 03/04/25 10:40 AM JOHNATHAN HAAS [facility] During your visit today, we recorded the following information about you: Pulse Respiration Blood pressure Weight 91/minute 16/minute 122/70 81.6 kg Height 1.626 m Johnathan Haas MD 03/04/2025 1:00 PM Signed REHABILITATION RECHECK: Follow-up evaluation Committee wheelchair recent right hip labral tear surgery nonweightbearing right lower extremity Chronic lower back pain bilateral hip pain intermittent radiation of pain to legs History of lumbar fusion x 3 Status post bilateral SIJ bone fusion Had CT lumbar for review Overall no change in her symptoms Chronic fibromyalgia syndrome She is following with a local pain management physician she tried multiple injections medications with no significant change in her symptoms. Pain management physician offered spinal cord stimulator trial Due to fibromyalgia skeptical to see it helps for her not most of her pain lower back bilateral hips The patient is a 40 year old female who presents for a return visit for follow up of previous concerns of pain in the lower back across back pain. Pain gets worse difficulty working by end of the day pain level severe lower back bilateral hips Back pain with coughing or sneezing pain level 6-7/10 Bilateral SIJ bone fusion in August 2023 Lumbar fusion most recent surgery in 2022 Cannot take any SSRI or antidepressant medication due to sensitivity INTERIM HISTORY Since the last visit, the patient states the symptoms have not changed. The distribution of painful symptoms has has not changed. Positive red flags : are absent on history.. Negative red flags include: age greater than 50 years, fevers, night pain, bowel incontinence, bladder incontinence, persistent adolescent back pain, diagnosis of cancer, significant spinal trauma, IV drug use, narcotic use, and weight loss Review of systems notes no cough, fever, weight loss or systemic illness. No new bowel, bladder, motor or sensory complaints. No dizzyness, fainting, orthostasis,vision or language changes. No shortness of breath, chest pain, nausea, vomiting or diarrhea. No past medical history on file. Fibromyalgia PAST SURGICAL HISTORY Procedure Laterality Date ARTHRD ANT INTERBODY MIN DSC LUMBAR L4-5 SECTION HX x 2 PAST SURGICAL HISTORY OF Bilateral SI joint fusion S PROBE PERC LUMBAR DISCECTOMY L4-5 Current Outpatient Medications Medication Sig acetaminophen (ACETAMINOPHEN EXTRA STRENGTH) 500 mg tablet Take 1 tablet every 6 to 8 hours as needed for pain aspirin, enteric coated (ADULT LOW DOSE ASPIRIN) 81 mg EC tablet Take 1 tablet by mouth daily with breakfast for 21 days. docusate sodium (COLACE) 100 mg capsule Take 1 capsule by mouth two times a day. naproxen (NAPROSYN) 500 mg tablet Take 1 tablet by mouth two times a day with meals for 21 days. methocarbamol (ROBAXIN) 500 mg tablet Take 1 tablet every 6 to 8 hours as needed for pain or muscle spasms ondansetron orally disintegrating (ZOFRAN ODT) 4 mg disintegrating tablet Take 1 tablet by mouth every 8 hours as needed for nausea/vomiting. Phentermine HCl 37.5 mg tablet Take 37.5 mg by mouth. pregabalin (LYRICA) 50 mg capsule Take 1 capsule by mouth three times a day for 90 days. esomeprazole (NEXIUM) 20 mg capsule Take 20 mg by mouth once daily. BASE, PCCA VANPEN crea Apply 1 application to affected area once daily. ubrogepant (UBRELVY) 100 mg tablet Take 100 mg by mouth once daily as needed. Ycrvd-0-OMG-EPA-Fish Oil (FISH OIL) 1,000 (120-180) mg cap Take 1 capsule by mouth once daily. (Patient not taking: Reported on 02/16/2025) No current facility-administered medications for this visit. ALLERGIES Allergen Reactions Nalbuphine Intolerance, Vomiting, Other: See Comments, Rash Pt vomited after being given Nubain in the past pt states when taking it becamse dizzy and nauseated was pregant had to be rushed back to surgery. Adhesive Tape (Palak* Rash Cloth tape, tears skin and welts Social history notes review fro gt Blood pressure 122/70, pulse 91, resp. rate 16, height 162.6 cm (5' 4 ), weight 81.6 kg (179 lb 14.3 oz), SpO2 98%. The patient is non-toxic in appearance. There are no open skin lesions. HEENT reveals no cervical lymph nodes or palpable thyroid nodules. There is no swelling redness or heat of the distal limbs. Peripheral pulses are present and symmetric, difficult to examine her lumbar spine due to recent right hip surgery nonweightbearing with the brace Reviewed spine imaging CT lumbar x-ray lumbar results and images Post fusion lumbar bilateral SIJ fusion with no significant bridging callus 12/30/2024 11:24 AM - Radiology, Oru In Impression IMPRESSION: 1. Postsurgical changes of posterior fusion (more content not included)... [facility] Telephone (ORQ) ASHLEE JALLOH ([id number]) 1985 F Date Time Provider Department 02/26/25 DENIZ ENCARNACION ORQ During your visit today, we recorded the following information about you: Roya Rosa 02/26/2025 2:44 PM Signed Pnt lvm her dog ate the pink pillow she was given post op and wanting to know how long she is supposed to use it or if its ok that she doesn't. If needed she wants to know if/where/how she can get another one Noemi Francis, AT 02/26/2025 3:58 PM Signed Spoke with patient on the phone. Discussed the alternatives to using the pink pillow. Patient is doing well post op. Noemi Francis, MEd, AT, ATC Allergies As of Date: 02/26/2025 Noted Allergy Reaction NALBUPHINE 04/10/2013 5 - Intolerance 11 - Vomiting 14 - Other: See Comments 2 - Rash Comments: Pt vomited after being given Nubain in the past pt states when taking it becamse dizzy and nauseated was pregant had to be rushed back to surgery. ADHESIVE TAPE (ROSINS) 08/17/2023 2 - Rash Comments: Cloth tape, tears skin and welts Date Reviewed: 02/23/2025 Reviewed by: Nikia Mark RN - Fully Assessed Reason for Visit: Post Op [174] Patient Update [1234] Prescriptions as of 02/26/2025 - acetaminophen (ACETAMINOPHEN EXTRA STRENGTH) 500 mg tablet Take 1 tablet every 6 to 8 hours as needed for pain - aspirin, enteric coated (ADULT LOW DOSE ASPIRIN) 81 mg EC tablet Take 1 tablet by mouth daily with breakfast for 21 days. - docusate sodium (COLACE) 100 mg capsule Take 1 capsule by mouth two times a day. - naproxen (NAPROSYN) 500 mg tablet Take 1 tablet by mouth two times a day with meals for 21 days. - methocarbamol (ROBAXIN) 500 mg tablet Take 1 tablet every 6 to 8 hours as needed for pain or muscle spasms - oxyCODONE IR (ROXICODONE) 5 mg immediate release tablet Take 1 tablet every 6 to 8 hours as needed for severe pain for 3 days - ondansetron orally disintegrating (ZOFRAN ODT) 4 mg disintegrating tablet Take 1 tablet by mouth every 8 hours as needed for nausea/vomiting. - Phentermine HCl 37.5 mg tablet Take 37.5 mg by mouth. - pregabalin (LYRICA) 50 mg capsule Take 1 capsule by mouth three times a day for 90 days. - Clrfp-8-BOA-EPA-Fish Oil (FISH OIL) 1,000 (120-180) mg cap Take 1 capsule by mouth once daily. - esomeprazole (NEXIUM) 20 mg capsule Take 20 mg by mouth once daily. - BASE, PCCA VANPEN crea Apply 1 application to affected area once daily. - ubrogepant (UBRELVY) 100 mg tablet Take 100 mg by mouth once daily as needed. Problem List As Of Date 02/26/2025 Noted Resolved Gastroesophageal reflux disease [K21.9] 02/16/2025 Obesity, Class I, BMI 30-34.9 [E66.811] 02/16/2025 Labral tear of hip, degenerative [M24.159] 02/23/2025 Encounter Status:Closed by NOEMI FRANCIS on 02/26/25 [facility] ANES POSTPROC EVALon 025 ANES POSTPROC EVAL HNO ID: [id number] Author: JAS YIP III, MD Service: Anesthesiology Author Type: Anesthesiologist Type: Anesthesia Postprocedure Evaluation Filed: 02/23/2025 16:28 Note Text: POST ANESTHESIA EVALUATION NOTE : 1985 Procedure Summary Date: 02/23/25 Room / Location: [place] [address] / [facility] Anesthesia Start: 733 Anesthesia Stop: 929 Procedure: ARTHROSCOPY HIP W/ LABRAL REPAIR (Right: Hip) Diagnosis: Labral tear of hip, degenerative (Labral tear of hip, degenerative [M24.159]) Surgeons: Deniz Encarnacion MD Responsible Provider: Jas Yip III, MD Anesthesia Type: general ASA Status: 2 Anesthesia Type: general Airway Type: ETT Last Vitals Vitals Value Taken Time BP 125/76 02/23/25 1200 Temp 36.4 ?C (97.5 ?F) 02/23/25 1200 HR SpO2 70 02/23/25 1155 Resp 14 02/23/25 1200 SpO2 100 % 02/23/25 1200 Vitals shown include unfiled device data. Post Anesthesia Patient Status Patient Evaluation: PACU. PACU/ICU Patient Condition: stable. Anticipated Disposition: phase 2 then home. Neurological Status: aware and responsive. Pulmonary Status: breathing comfortably on room air Airway Control: returned to baseline unsupported. Cardiovascular Status: stable. Pain Management: clinically adequate Postoperative Hydration: acceptable. Intraoperative Events: no significant anesthesia events Post Operative Nausea/Vomiting Status: no significant post operative nausea or vomiting Recommendation: continue current plan of care. Anesthesia Observations No Documentation SIGNATURE: Jas Yip MD PATIENT NAME: Ashlee Jalloh DATE: February 23, 2025 TIME: 4:28 PM CSN: [id number] [facility] ANES PRE-OPon 02-23-2025 ANES PRE-OP HNO ID: [id number] Author: JAS YIP III, MD Service: Anesthesiology Author Type: Anesthesiologist Type: Anesthesia Preprocedure Evaluation Filed: 02/23/2025 07:16 Note Text: ANESTHESIOLOGY DAY OF SURGERY NOTE : 1985 Procedure Information Date/Time: 02/23/25729 Procedure: ARTHROSCOPY HIP W/ LABRAL REPAIR (Right: Hip) - Right hip arthroscopy labral repair/ debridement, femoroplasty, acetabuloplasty MALAIKA Block [facility]: [id number] Surgeons: Deniz Encarnacion MD Estimated body mass index is 30.9 kg/m? as calculated from the following: Height as of this encounter: 162.6 cm (5' 4 ). Weight as of this encounter: 81.6 kg (180 lb). Most recent hematocrit and potassium results: No results found for this basename: HCT,HEMATOCRIT,K,POTA SSIUM Relevant Problems GI (+) Gastroesophageal reflux disease I - PHYSICAL EVALUATION AIRWAY Patient intubated: No. Tracheostomy tube not present Mallampati: I. TM distance: >3 FB. Neck ROM: full ROM without neurological symptoms. Mouth opening: adequate. Short neck: no. Thick neck: no Leary present: no Microretrognathia/Ashish ronagthia/Recessed Chin: No DENTAL Dental findings: teeth intact. Additional exam findings: yes. CARDIOVASCULAR Normal cardiovascular observations. PULMONARY Normal pulmonary observations. II - ANESTHESIA PLAN ASA Score: 2 Anesthetic Plan: general Airway type: ETT The patient is not a current smoker. NPO Status: adequate Beta Lisa Administration of chronic beta lisa medication not planned. Monitoring Plan Monitoring plan: standard ASA. Post Procedure Analgesic Plan Postoperative analgesic plan: multimodal analgesia. Informed Consent Anesthetic risks, benefits, alternatives, personnel and consent discussed: yes. Patient / Responsible [employer] Party agrees to proceed: yes Patient / Surrogate agrees to blood products: blood products not planned DNR status not reviewed with patient and/or family prior to surgery. Significant changes in the patient condition since the History and Physical, not otherwise documented in primary service progress note: no. Potential Anesthesia issues that may suggest increased risk of complications or contraindication to planned procedure: none. Vitals Value Taken Time BP 113/62 02/23/25 0640 Pulse 73 02/23/25 0716 Resp 23 02/23/25 0716 Temp 36.6 ?C (97.8 ?F) 02/23/25 0640 SpO2 100 % 02/23/25 0716 Vitals shown include unfiled device data. Facility-Administered Medications as of 02/23/2025 Medication Dose Route Frequency - lidocaine 10 mg/mL (1 %) 1-2 mg injection (XYLOCAINE) 0.1-0.2 mL INTRADERMAL PRN - lactated ringers iv infusion 5-30 mL/hr INTRAVENOUS CONTINUOUS - NaCl 0.9% iv flush bag 20 mL INTRAVENOUS PRN - ceFAZolin iv piggyback 2 g in D5W (iso-osmotic) 100 mL (ANCEF) 2 g INTRAVENOUS Pre-Op Once - [COMPLETED] acetaminophen 1,000 mg tab(s) (TYLENOL) 1,000 mg ORAL Pre-Op Once - [COMPLETED] diazePAM 5 mg tab(s) (VALIUM) 5 mg ORAL Pre-Op Once - midazolam (PF) 2 mg injection (VERSED) 2 mg INTRAVENOUS Pre-Op Once Followed by - midazolam (PF) 2 mg injection (VERSED) 2 mg INTRAVENOUS Pre-Op PRN Outpatient Medications as of 02/23/2025 Medication Sig - BASE, PCCA VANPEN crea Apply 1 application to affected area once daily. - pregabalin (LYRICA) 50 mg capsule Take 1 capsule by mouth three times a day for 90 days. - Vbooa-7-VCG-EPA-Fish Oil (FISH OIL) 1,000 (120-180) mg cap Take 1 capsule by mouth once daily. (Patient not taking: Reported on 02/16/2025) - esomeprazole (NEXIUM) 20 mg capsule Take 20 mg by mouth once daily. - ibuprofen (MOTRIN) 400 mg tablet Take 1 tablet by mouth every 6 hours as needed. - MOBIC 15 mg tablet Take 15 mg by mouth once daily. (Patient not taking: Reported on 02/16/2025) - naproxen (NAPROSYN) 250 mg tablet Take 250 mg by mouth two times a day with meals. (Patient taking differently: Take 250 mg by mouth two times a day with meals.) - ubrogepant (UBRELVY) 100 mg tablet Take 100 mg by mouth once daily as needed. I have interviewed and examined the patient. I have reviewed the medical record and/or the pre-anesthesia evaluation, pertinent labs, and test results. This contains updated information obtained within 48 hours of Surgery/Procedure. SIGNATURE: Jas Yip MD PATIENT NAME: Ashlee Jalloh DATE: February 23, 2025 TIME: 7:16 AM CSN: [id number] [facility] HISTORY PHYSICALon HISTORY PHYSICAL HNO ID: [id number] Author: DENIZ ENCARNACION MD Service: Orthopaedic Surgery Author Type: Physician Type: H&P Filed: 02/23/2025 06:44 Note Text: UPDATED HISTORY AND PHYSICAL EXAMINATION SERVICE DATE: 02/23/2025 SERVICE TIME: 639 PHYSICAL EXAM MUST BE COMPLETED ON ADMISSION The History and Physical (completed in the past 30 days) has been reviewed and the patient has been examined. The contents accurately reflect the patient's condition with the following additions or revisions since the HANDP was completed. Examination indicates no changes. This HANDP can be found in the Electronic Medical Record dated 02/16/25. SIGNATURE: Deniz Encarnacion MD PATIENT NAME: Ashlee Jalloh DATE: February 23, 2025 TIME: 6:44 AM [facility] NURSING PROGon 02-23-2025 NURSING PROG HNO ID: [id number] Author: NIKIA MARK RN Service: Nursing Author Type: Registered Nurse Type: Nursing Progress Note Filed: 02/23/2025 10:44 Note Text: Patient beginning to wake up and attempting to spit out oral airway. Oral airway removed at this time and patient tolerating well. Vital signs stable, will continue to monitor. [facility] NURSING PROG HNO ID: [id number] Author: NIKIA MARK RN Service: Nursing Author Type: Registered Nurse Type: Nursing Progress Note Filed: 02/23/2025 09:36 Note Text: POST OP LEARNING RESPONSE INSTRUCTION PROVIDED TO: Patient and Significant Other METHOD OF INSTRUCTION: Individual instruction Written instruction/Handouts Verbal instruction PATIENT / FAMILY RESPONSE: Verbalizes understanding of: POST-OPERATIVE INSTRUCTIONS-Correct actions to take to reduce postoperative complications FOLLOW-UP PLAN: Patient instructed to call with any further issues SUPPLEMENTAL MATERIAL: None REFERRAL (RECOMMENDATION): None Electronically Signed By: Nikia Mark RN In Department: [facility] SURGERY [facility] NURSING PROG HNO ID: [id number] Author: WEI TAYLOR RN Service: ? Author Type: Registered Nurse Type: Nursing Progress Note Filed: 02/23/2025 07:04 Note Text: PRE OP LEARNING ASSESSMENT PROCEDURE/SURGERY: SURGERY: right hip READINESS TO LEARN COGNITIVE ABILITY: Alert and oriented MOTIVATION TO LEARN: Eager Interested FAMILY SUPPORT: High - Very involved in pt care PATIENT LEARNS BEST BY: Written Instruction - Hand-outs Verbal Instruction FACTORS AFFECTING LEARNING: None PHYSICAL LIMITATIONS AFFECTING LEARNING: None Electronically Signed By: Wei Taylor RN In Department: [facility] SURGERY - [facility] OPERATIVE NOon 02-23-2025 OPERATIVE NO HNO ID: [id number] Author: DENIZ ENCARNACION MD Service: Orthopaedic Surgery Author Type: Physician Type: Operative Report Filed: 02/23/2025 09:22 Note Text: [facility] Operative Report ORIGINATOR: MD Ashlee Posadas Delgado Jalloh ACCTNUM: SERVICE: ORTHO LOCATION: [place] [address] ATTENDING PHYSICIAN: Deniz Encarnacion MD DATE OF PROCEDURE: February 23, 2025 SURGEON: Deniz Encarnacion MD PROCESS LEAD: Elmer Edwards MD PREOPERATIVE DIAGNOSIS: Right hip acetabular labral tear 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 right hip arthroscopy 2. Labral repair CPT 25055 3. Femoroplasty CPT 97749 4. Acetabuloplasty CPT 42770 5. Capsular Closure ANESTHESIA: General LOCATION: [facility] [place]. OPERATIVE INDICATIONS: The patient is a pleasant 40 year old, female with recurrent right hip/ groin complaints not amenable to conservative treatment. Exacerbating factors: prolonged sitting, ADL's, pivoting/ lateral movements, activities requiring hip flexion greater than 90 degrees Correlating physical exam findings, including positive anterior impingement and DOROTHY tests, with her imaging it was felt that she had a right hip labral tear with impingement. MRI: right acetabular labral tear Radiographs: maintained joint spaces Tonnis grade: 0 Alpha angle salazar lateral 53 degrees We discussed treatment options both surgical and nonsurgical. We discussed the expectations, risks, benefits, alternatives of the above mentioned procedure, she voiced understanding and then wished to proceed. DESCRIPTION OF OPERATION: The patient was brought to [facility] operative suite 6 on February 23, 2025, after marking the appropriate surgical extremity in the preoperative holding area. Brought in the operative suite, placed on the operative table, and induced under general anesthesia. she was placed distally on the postless pink pad system. Both feet were secured in traction boots. The right upper extremity was placed across the chest. Care was taken to pad the ulnar nerve. Under fluoroscopic guidance and complete muscle relaxation, right hip was distracted. The lateral aspect of the greater trochanter was prepped with Betadine. The vacuum suction seal was then removed from the joint with an 18-gauge spinal needle. The hip was then reduced and then prepped and draped in usual sterile fashion. After appropriate surgical time-out including all members of the surgical team, confirming the site and extremity, ensuring bakery demonstrator of 2gm of IV Ancef, the hip was again distracted. The standard anterolateral and mid anterior portal were created. Exam of the hip joint revealed an anterosuperior labral tear from the 12 position on the clock face over to 3. The deep anterior wall, dome, posterior wall, posterior labrum, femoral head, ligamentum teres were intact. An interportal cut capsulotomy was performed. A labral takedown was performed in the area of tear. We exposed 3 mm of subspine acetabular bone by 2.2 cm in length not removing any of the weightbearing rim. We then used the 5.0 mm talia to perform the acetabuloplasty. Once this was completed, 3 1.8 mm Knotless Q fix anchors were placed. Simple suture configuration was employed and the labrum wassecured down to the prepared bone in a very stable fashion. Once this was completed, repeat exam of the joint revealed no further chondral changes. The hip was then reduced at 38 minutes. Labral seal was restored upon the reduction of the hip. The head-neck junction was identified distally after making a T in the capsule. The loss of head/neck junction offset was easily identifiable. A 5.0 mm talia was used to perform the femoroplasty. We used live fluoroscopic views in multiple hip flexion angles and direct visualization to ensure adequate, but not over resection from 12 to 5 on the clockface, ensuring good contour from the lateral epiphyseal vessels to the medial synovial fold. All loose bony debris was debrided from the joint. Capsular closure was then performed with 5 #2 Ultrabraid sutures. This reduced the iliofemoral ligament and capsule in a very stable fashion. All excess fluid was removed. The hip was injected with a cocktail of 20 mL of 0.5% ropivacaine and 2 mg of Duramorph forpostoperative analgesia. The arthroscopic instruments were then removed. The wounds were then closed with interrupted 3-0 Prolene, with a 3-0 Monocryl deep for the mid anterior portal as well, followed by Steri-Strips and sterile dressing. The patient was then awakened from general anesthesia and taken to PACU in stable condition. COMPLICATIONS: None. SPECIMENS: None. FLUIDS: See anesth (more content not included)... Normal [facility] IGP,APTIMA HPV,AGE GDLNon AGE GDLN ACOG TESTING Note . [facility] Comment on above: TESTS RESULT FLAG UN ITS REF RANGE LAB Clinician Provided Cytology Information Source.............Vagina No. of containers..01 ThinPrep Vial Age Algo ACOG Erika... FLAG LEGEND: L-Low Normal,H-High Normal,LL-Alert Low,HH-Alert High <-Panic Low,>-Panic High,A-Abnormal,AA-Critical Abnormal Performed at: 01 =[address] [address] Ambar Sandoval MD, HPV APTIMA Negative Negative [facility] Comment on above: This nucleic acid am plification test detects fourteen high- risk HPV types (16,18,31,33,35,39,45,51,52,56,58,59,66,68) without differentiation. Performed at: =[address] [id number] Help Desk Support Specialist: Ambar Sandoval MD, Phone: [phone] Performed at: [address] [id number] Help Desk Support Specialist: Ambar Sandoval MD, Phone: [phone] IGP, APTIMA HPV, RFX 16/18,45 Note . [facility] Comment on above: TESTS RESULT FLAG UN ITS REF RANGE LAB DIAGNOSIS: 02 NEGATIVE FOR INTRAEPITHELIAL LESION OR MALIGNANCY. Specimen adequacy: 02 Satisfactory for evaluation. Performed by: 02 Marcella Hernández, Guest Service Manager ([facility]) . 02 Note: Note 02 The Pap [...] <-Panic Low,>-Panic High,A-Abnormal,AA-Critical Abnormal Performed at: [address] [address] Ambar Sandoval MD, [facility] HISTORY PHYSICALon HISTORY PHYSICAL HNO ID: [id number] Author: BLESSING HORVATH PA-C Service: ? Author Type: Physician Break Out Man Type: H&P Filed: 02/16/2025 08:14 Note Text: [facility] HISTORY AND PHYSICAL EXAMINATION SERVICE DATE: 02/16/2025 SERVICE TIME: 8:01 AM PRIMARY CARE PHYSICIAN: No primary care provider on file. Assessment 1. Pre-op exam (Primary) Surgery 02/23/2025 2. Gastroesophageal reflux disease, unspecified whether esophagitis present Stable on esomeprazole (Nexium) 3. Obese Estimated body mass index is 32.01 kg/m? as calculated from the following: Height as of this encounter: 162.6 cm (5' 4 ). Weight as of this encounter: 84.6 kg (186 lb 8.2 oz). On phentermine, last dose was 02/15/25. Advised to hold one week for surgery. ANESTHESIA FINDINGS: Intubation History: No history of difficult intubation Significant Anesthesia Considerations: potential slow emergence Airway History: No history of difficult airway Gifford Activity Status Index: METS: Walk indoors, such as around the house (1.75 METs) Do light work around the house, such as dusting or washing dishes (2.70 METs) Take care of self; that is eating, dressing, bathing, using the toilet (2.75 METs) Walk a block or two on level ground (2.75 METs) Do moderate work around the house, such as vacuuming, sweeping floors, or carrying in groceries (3.50 METs) Climb a flight of stairs or walk up a hill (5.50 METs) DASI Score: 18.95 (PT 2 times a week ) Patient denies any chest pain or undue shortness of breath with the above physical activity. Clinical Frailty Scale: 3. Well, with treated comorbid disease STOP-Bang Score: Snores loudly Denies feeling tired, fatigued, or sleepy during the daytime Has not been observed to stop breathing or choking/gasping during sleep Denies having high blood pressure BMI less than or equal to 35 kg/m2 Patient 50 years old or younger Does not have a large neck Non-male patient STOP-Bang Score: 1 I - PHYSICAL EVALUATION AIRWAY Patient intubated: No. Tracheostomy tube not present Mallampati: I. TM distance: >3 FB. Neck ROM: full ROM without neurological symptoms. Mouth opening: adequate. Short neck: no. Thick neck: no Lip Bite Test: II Microretrognathia/Ashish ronagthia/Recessed Chin: No DENTAL Normal dental observations. Additional comments: 2 broken molars. II - ANESTHESIA PLAN Beta Lisa Monitoring Plan Post Procedure Analgesic Plan Prepared for Surgery: optimally prepared for surgery. CONSULTS: Patient does not require consults for optimization at this time. Planned Anesthetic: anesthesia choice The Following Tests/Procedures Have Been Initiated: Orders Placed This Encounter Phentermine HCl 37.5 mg tablet Sig: Take 37.5 mg by mouth. , Labs not indicated per [facility] protocol, EKG not indicated per [facility] protocol REASON FOR VISIT: Ashlee Jalloh is a 40 year old female who is scheduled for Right - ARTHROSCOPY HIP W/ LABRAL REPAIR at the request of Dr. Deniz Encarnacion for consultation. My final recommendation will be communicated back to the requesting physician by way of shared medical record or letter. CHIEF COMPLAINT: Hip pain HPI: Patient is a 40 year old female presenting for pre-anesthesia consultation with robin Morton. Patient has been having right hip pain for the last several years which has progressively gotten worse. Patient also has history of a lumbar fusion and discectomy which causes back pain. She has noticed that she typically has an increase of hip pain when her back pain is flaring and vice versa. Currently rates pain 6/10 today and describes as an aching sensation. She will have a sharp scalpel cutting sensation with movement. Pain can radiate down her right leg at times. Relieving factors include pregabalin. Endorses numbness in both of her legs intermittently. Today she has numbness in bilateral feet. Denies any previous injuries or surgeries on her right hip in the past. Patient has been recommended for above surgery. Subjective ACTIVE PROBLEM LIST Gastroesophageal Reflux Disease Obesity, Class I, Bmi 30-34.9 Covid Immunization Dates Current Care Gaps Covid-19 Vaccine (2023- season) Overdue since 05/11/2024 02/25/2021 Imm Admin: COVID-19 original vaccine, age 12+ yr, monovalent (PFIZER-BIONTECH - PURPLE TOP) 02/04/2021 Imm Admin: COVID-19 original vaccine, age 12+ yr, monovalent (PFIZER-BIONTECH - PURPLE TOP) REVIEW OF SYSTEMS: PAIN ASSESSMENT: General: No weight loss, malaise or fevers. 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 No neurological symptoms or problems. Respiratory: No history of current cough or dyspnea, or pneumonia in the past 6 weeks. No history of respiratory/pulmonary symptoms or problems. Cardiovascular: No history of HTN requiring medication, no history of angina, C (more content not included)... Normal [facility] Urinalysis macro (dipstick) panel (U)on 01-28-2025 Bilirubin, UA Negative Negative - 4(70) +++ mg/dL [facility] Blood, UA Positive Negative - 50 Stef/mcL [facility] Comment on above: trace-intact Clarity, UA Clear [facility] Color, UA Yellow [facility] Glucose, UA Negative Negative - 1999(110) ++++ mg/dL [facility] Interpretation and review of laboratory results Abnormal [facility] Ketones, UA Negative Negative - 160(16) ++++ mg/dL [facility] Leukocytes, UA Negative Negative - 500+++ Scotty/mcL [facility] Nitrite, UA Negative Negative - Positive [facility] pH, UA 6.5 5 - 9 [facility] Comment on above: 6.0 Protein, UA Negative Negative - 1999(20) ++++ mg/dL [facility] Spec Grav, UA 1.025 1 - 1.03 [facility] Comment on above: 1.020 Urobilinogen, UA 0.2 0.2 - 12 mg/dL [facility] SHUBHAMASHLEE ([id number]) 1985 F Date Time Provider Department 01/16/25 DENIZ ENCARNACION ORQ During your visit today, we recorded the following information about you: Roya Rosa 01/16/2025 2:00 PM Signed Images in [facility] PLAN: 1. Medication: Continue current medications. 2. Test(s)/Imaging/Refer ral(s): None. 3. Intervention: we have discussed with her the findings on imaging and likely diagnosis.Se is aware that she needs to get her MRI images to the office for review and then we can decide if she would benefit from labral repair vs conservative management until eventual arthroplasty. 4. Follow-up: PRN. Noemi Francis, AT 01/26/2025 2:20 PM Signed Attempted to contact patient via phone. No answer. Left her a detailed voicemail. Office number provided for her to call back when she is able. Tessie Leggett, AT, ATC Noemi Francis AT 01/26/2025 3:48 PM Signed Spoke with patient on the phone. Images were reviewed by Dr. Encarnacion. Discussed that she would be a candidate for a hip scope. Labral tear, KRISTI. Patient has gone through extensive conservative treatment. She is leaning towards surgery, however she is also currently being treated for low back pain and they have a few things planned in the near future for that. She will follow up with low back provider and then reach out to us when she is ready to proceed forward surgically. All questions were answered. Tessie Leggett, AT, ATC Roya Rosa 01/27/2025 10:52 AM Signed Pnt called office stating her back told her ok to proceed w hip scope- pnt ready to sched surg Noemi Francis, AT 01/30/2025 3:51 PM Signed Spoke with patient on the phone. Surgery date of 02-23-25 was agreed to. Pre-op instructions were reviewed in detail with the patient and also sent via [employer]. All questions were answered. Noemi Francis, MEd, AT, ATC Allergies As of Date: 01/16/2025 Noted Allergy Reaction NALBUPHINE 04/10/2013 5 - Intolerance 11 - Vomiting 14 - Other: See Comments 2 - Rash Comments: Pt vomited after being given Nubain in the past pt states when taking it becamse dizzy and nauseated was pregant had to be rushed back to surgery. ADHESIVE TAPE (ROSINS) 08/17/2023 2 - Rash Comments: Cloth tape, tears skin and welts Date Reviewed: 01/07/2025 Reviewed by: Rosetta Nails OCCA - Fully Assessed Reason for Visit: Results [95] Schedule Surgery [1330] Prescriptions as of 01/30/2025 - pregabalin (LYRICA) 50 mg capsule Take 1 capsule by mouth three times a day for 90 days. - Xnlrz-8-FSK-EPA-Fish Oil (FISH OIL) 1,000 (120-180) mg cap Take 1 capsule by mouth once daily. - esomeprazole (NEXIUM) 20 mg capsule Take 20 mg by mouth once daily. - BASE, PCCA VANPEN crea Apply 1 application to affected area once daily. - ibuprofen (MOTRIN) 400 mg tablet Take 1 tablet by mouth every 6 hours as needed. - MOBIC 15 mg tablet Take 15 mg by mouth once daily. - naproxen (NAPROSYN) 250 mg tablet Take 250 mg by mouth two times a day with meals. - ubrogepant (UBRELVY) 100 mg tablet Take 100 mg by mouth once daily as needed. Problem List As Of Date: 01/16/2025 (None) Encounter Status:Closed by NOEMI FRANCIS on 01/26/25 Normal [facility] Medicine Office/Clini c Noteon 01-16-2025 Family Medicine Office/Clinic Note Family Medicine Office/Clinic Note Chief Complaint swelling in hands and wrists HPI Staff complaints of bilateral swelling in hands and wrists Onset: off and on for several years, worse the last 2 weeks. Characteristics: worst in right side, states she drops objects, hard to work, was dx with carpal tunnel OTC tried: none History of Present Illness pt presents today for carpal tunnel pain. and would like to start on adipex again Review of Systems PHQ Score Initial Depression Screen Score: 4 SCORE Physical Exam Vitals & Measurements HR: 69(Peripheral) BP: 110/60 SpO2: 98% HT: 161 cm HT: 63 in WT: 86.3 kg WT: 190.259 lb BMI: 33.29 General: alert, no acute distress ENMT: oral mucosa moist, no pharyngeal erythema or exudate Cardiovascular: regular rate and rhythm, normal peripheral perfusion Respiratory: Lungs CTA, respirations non labored Extremities: no deformity, no trauma Neurological: oriented x 4, LOC appropriate for age, CN II-XII intact, motor strength equal & normal bilaterally, speech normal Assessment/Plan 1. 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 she is currently on lyrica and is hoping once she gets to the full dose she will start to get some relief. she has tried toradol, meloxicam, steroids, gabapentin. none have given her any relief. i encourged her to use her brace. she said it doesn't really help. discussed referral to surgery. but she is possibly looking at spine and hip surgery so she wants to wait until she gets more answered with that. Ordered: phentermine, 37.5 mg = 1 tab(s), Oral, Daily, # 30 tab(s), Refills(s) 0, Pharmacy: [facility] [id number], 161, cm, 01/16/25 14:25:00 EDT, Height/Length Dosing, 86.3, kg, 01/16/25 14:25:00 EDT, Weight Dosing 2. Encounter for weight management (Z76.89: Persons encountering health services in other specified circumstances) pt is up 20 pounds since September. will restart adipex. medication agreement signed. RTC 4 weeks Ordered: phentermine, 37.5 mg = 1 tab(s), Oral, Daily, # 30 tab(s), Refills(s) 0, Pharmacy: [facility] [id number], 161, cm, 01/16/25 14:25:00 EDT, Height/Length Dosing, 86.3, kg, 01/16/25 14:25:00 EDT, Weight Dosing 3. BMI 33.0-33.9,adult (Z68.33: Body mass index [BMI] 33.0-33.9, adult) BMI education given. will restart adipex Follow-up No qualifying data available Problem List/Past Medical History Ongoing Abnormal rapid eye movement sleep Allergies Anemia Angiolipoma of right kidney Blisters of multiple sites BMI 29.0-29.9,adult BMI 33.0-33.9,adult Brain fog Class 1 obesity with body mass index (BMI) of 31.0 to 31.9 in adult Cold feet Daytime somnolence Encounter for weight management Flank pain Fluid level behind tympanic membrane of both ears Hip pain Hypercholesteremia Leg pain, bilateral Loud snoring Low back pain Low blood pressure Migraine headache Myringitis of left ear Nasal septal perforation Neck pain Nonsmoker Numbness of both lower extremities Obstructive apnea Overweight (BMI 25.0-29.9) Pain in finger Poor circulation of extremity Posttraumatic stress disorder Pre-op exam PTSD (post-traumatic stress disorder) Recurrent severe major depressive disorder co-occurrent with anxiety Right carpal tunnel syndrome Screening for thyroid disorder Sensory disorder Tingling of right upper extremity Vertigo Weight gain Witnessed episode of apnea Historical No qualifying data Procedure/Surgical History Surgery (2022), Surgery (2022), Surgery (2020), delivery (2016), delivery, Hysterectomy, Surgery. Medications Adipex-P 37.5 mg Tab, 37.5 mg= 1 tab(s), Oral, Daily meloxicam 15 mg Tab methylPREDNISolone 4 mg tab dosepak, 1 packet(s), Oral, Once naproxen 500 mg Tab, 500 mg= 1 tab(s), Oral, BID Nexium 20 mg Cap-DR, 20 mg= 1 cap(s), Oral, Daily pregabalin 50 mg Cap Ubrelvy 100 mg oral tablet, 100 mg= 1 tab(s), Oral, Once, 1 refills Allergies Nubain (Nausea) Silicone (simethicone) obsolete (Hives) Social History Alcohol Never., 06/30/2024 Substance Abuse Never., 06/30/2024 Tobacco Never (less than 100 in lifetime) Tobacco Use:. Never Smokeless Tobacco Use:. Cigarettes, Household tobacco concerns: No. Yes, 09/16/2024 Family History Patient was adopted Family history is negative Immunizations Vaccine Date Status Comments influenza virus vaccine, inactivated 07/07/2022 Recorded SARS-CoV-2 (COVID-19) mRNA BNT-162b2 vax 02/25/2021 Recorded 2023-05-18: TPVAL SARS-CoV-2 (COVID-19) mRNA BNT-162b2 vax 02/04/2021 Recorded 2023-05-18: TPVAL influenza virus vaccine, inactivated 07/02/2020 Recorded influenza virus vaccine, inactivated 07/14/2019 Recorded [facility] Comment on above: Result Comment: Elec tronically Signed By: Lidia Jones\.br\Date and Time Signed: 01/16/25 15:42 EDT Provider Letteron 01-16-2025 Provider Letter Provider Letter January 16, 20[address] [place] [phone] : 1985 To Whom It May Concern, Please excuse above patient from work due to medical Date of Illness: From: _01-16-25 To: _01-16-25 May Return to Work On: 01-19-25 Restrictions: _ Comments: _ Sincerely, Family Medicine [address] [address] [facility] CNOVon 01-07-2025 CNOV Office Visit (SPRTSO ) ASHLEE JALLOH ([id number]) 1985 F Date Time Provider Department 01/07/25 10:45 AM DENIZ ENCARNACION During your visit today, we recorded the following information about you: Valeria Zarate MD 01/07/2025 12:04 PM Signed DEPARTMENT OF ORTHOPAEDICS Consultation as a request of self. Chief Complaint: Right hip pain HISTORY OF PRESENT ILLNESS: This is a pleasant 39 year old female, who presents today with a chief complaint of right hip pain. Injury/ Trauma: Denies PAIN EVALUATION 01/06/2025 1949 01/07/2025 1045 Pain Level: 7 9 Pain Location: -- Hip-Right Description: Aching;Burning;Sharp; Shooting;Stabbing;Sta bbing/Not Incision;Stiffness;Te nderness;Tightness;Ti ngling Sharp;Shooting;Radiat ing Duration Amount of Time: -- 9 Duration Units: Years Years Frequency: Continuous Continuous Intervention/Comfort measure: Medication;Pillow support -- Pain location: anterior, medial, and lateral Duration of pain/ symptoms: 2 years Frequency: constant Intensity: moderate Quality: sharp and shooting She Reports nocturnal pain. She denies numbness, tingling, or electric shocks. She reports popping and catching and sense of instability. Aggravating factors: prolonged sitting Alleviating factors: Nothing makes my pain better Prior Treatments: physical therapy and steroid injections Hip joint injection 3 or 4, can't remember exactly. 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 No past surgical history on file. Current Outpatient Medications Medication Sig Dispense Refill pregabalin (LYRICA) 50 mg capsule Take 1 capsule by mouth three times a day for 90 days. 90 capsule 2 Dbedj-3-RRC-EPA-Fish Oil (FISH OIL) 1,000 (120-180) mg cap Take 1 capsule by mouth once daily. esomeprazole (NEXIUM) 20 mg capsule Take 20 mg by mouth once daily. BASE, PCCA VANPEN crea Apply 1 application to affected area once daily. naproxen (NAPROSYN) 250 mg tablet Take 250 mg by mouth two times a day with meals. ubrogepant (UBRELVY) 100 mg tablet Take 100 mg by mouth once daily as needed. ibuprofen (MOTRIN) 400 mg tablet Take 1 tablet by mouth every 6 hours as needed. MOBIC 15 mg tablet Take 15 mg by mouth once daily. No current facility-administered medications for this visit. ALLERGIES Allergen Reactions Nalbuphine Intolerance, Vomiting, Other: See Comments, Rash Pt vomited after being given Nubain in the past pt states when taking it becamse dizzy and nauseated was pregant had to be rushed back to surgery. Adhesive Tape (Palak* Rash Cloth tape, tears skin and welts No family history on file. Social History Tobacco Use Smoking status: Never Smokeless tobacco: Never Substance Use Topics Alcohol use: Not Currently Drug use: Never REVIEW OF SYSTEMS: Per HPI RADIOGRAPHS: right AP pelvis, Salazar lateral and false view dated within 30 days revealed no acute processes, fractures, or dislocations. There is a small cam lesion. Alpha angle 78. Acetabulum is normal. Osseous and soft tissue structures within normal limits. Tonnis grade 1. X-Rays Reviewed and discussed. OTHER STUDIES: MRIs NOT PRESENTnot present at visit, per report: anterior subtle intrasubstance tear in far anterior superior right, trave fluid troch bursa PHYSICAL EXAM: There were no vitals taken for this visit. General: Appears stated age, well built, in no apparent distress. Psychiatric: Mood and affect appropriate. Alert and oriented x 3 without evidence of abnormal respiratory effort. Musculoskeletal Exam: Gait antalgic, Posture: erect and normal. Exam: Right Left Single Leg Trendelenburg Negative Negative Hip flexion 100 100 IR 30 30 ER 50 50 Anterior impingement positive positive Dynamic labral stress positive positive DOROTHY positive positive Posterior Impingement negative positive SRIDHAR negative negative Strength Right Left Supine HF 5/5 5/5 Upright HF 5/5 5/5 Adduction 5/5 5/5 Abduction 5/5 5/5 Tenderness with Palpation: Right Left Greater Troch Negative Negative Gluteus Medius Negative Negative Piriformis Negative Negative PROCEDURE: Not applicable IMPRESSION: 1. right hip KRISTI. PLAN: 1. Medication: Continue current medications. 2. Test(s)/Imaging/Refer ral(s): None. 3. Intervention: we have discussed with her the findings on imaging and likely diagnosis.Se is aware that she needs to get her MRI images to the office for review and then we can decide if she would (more content not included)... Normal [facility] CNOVon 01-05-2025 CNOV Office Visit (ORAVON ) ASHLEE JALLOH ([id number]) 1985 F Date Time Provider Department 01/05/25 2:45 PM URIEL GUZMÁN During your visit today, we recorded the following information about you: Weight 84.4 kg Uriel Guzmán MD 01/05/2025 3:26 PM Signed CONSULT ORTHOPAEDIC: HIP PRIMARY CARE PHYSICIAN: No primary care provider on file. REFERRING PROVIDER: Johnathan Haas [facility] [place] [facility] [id number] ASSESSMENT AND PLAN Impression: Right hip and groin pain. Hx of Labral tear on MRI. Xrays benign 39F- Fibromyalgia Hx of lumbar fusion x 3 Hx of R hip CSI x 4 Painful groin pain R side Also with RLE lumbar radiculopathy No indication for R FELIZ at this time Will refer to sports for possible labral intervention. Diagnoses: (M25.551) Pain in right hip (primary encounter diagnosis) (M24.159) Labral tear of hip, degenerative The patient has been ordered: Office Visit on 01/05/25 XR HIP GENERAL 3V PELV/AP/LAT RIGHT CONSULT TO ORTHOPAEDICS Total Joint Arthroplasty: Risk Calculator Ashlee Jalloh has a chance of NOT returning home at discharge for a Primary total Hip replacement. Ashlee's estimated Length of Stay is . Ashlee's 30 day chance of readmission is . These calculations are based on the following factors: - 39 years of age - sex is not male - NarxCare score of 40 - 0 hospitalizations in the last 12 months - no history of heart disease - no history of diabetes - no history of COPD - no history of anemia - preoperative ambulation: independent community distances - 5 step(s) to enter home - bed location is NOT on the first floor - bath location is NOT on the first floor - caregiver is consistent - home is more than 150 miles away - PROMIS-10 Mental Health T score 20-40 - Marital status: unknown Risk Factors for Total Knee Arthroplasty (TKA) Major Risk Factors Obesity Unknown Risk High: BMI > 40 Moderate: BMI 30-40 Normal: BMI < 30 Diabetes normal High: A1C > 8 Moderate: A1C 7-8 Normal: A1C < 7 Hx of DVT / PE normal High: dx of DVT / PE Normal: no dx of DVT / PE Smoking normal High: Current smoker Normal: Non smoker Narcotics Use normal High:NarxCare >=300 Moderate: 100-299 Normal: 0-99 Depression High Risk High: PHQ-9 >14 Moderate: PHQ-9 5-14 Normal: PHQ-9 < 5 Area Deprivation Index (JENSEN) High Risk High: JENSEN Score > 75 Moderate: JENSEN 50-75 Normal: JENSEN < 50 Obesity: height and/or weight are out of date (There is no height and/or weight reading in the past 365 days, so the below BMI readings may be inaccurate) BMI Readings from Last 3 Encounters: No data found for BMI Area Deprivation Index (JENSEN) 11/17/2024 JENSEN Score National Score 78 Patient Health Questionnaire (PHQ-9) 01/05/2025 PHQ-9 PHQ-2 Score 6 PHQ-9 Score 22 (0-4) minimal depression, (5-9) mild depression, (10-14) moderate depression, (15-19) moderately severe depression, (20-27) severe depression Bone Density Risk Screen Ashlee Jalloh is low risk for bone loss based on her age and having no previous diagnoses of osteopenia, osteoporosis, Paget's disease of bone, or cancer of bone. Other risk factors are listed below to determine if they pose a significant risk for bone loss, and if so, recommend ordering a bone densitometry and, upon receiving a result, as needed, order a consult to a bone health specialist (Rheumatology, Endocrinology, or Women's Health) for bone assessment. Risk Factors: Use of Proton Pump Inhibitors Additional Risk Factors Malnutrition: No Malnutrition Screening Tool (MST) score on file- please complete the MST screening tool (click here to open) and refresh the note. There is no problem list on file for this patient. SUBJECTIVE CHIEF COMPLAINT: right hip pain -surgery consult HPI: Ashlee Jalloh is a 39 year old patient with the presenting complaint of New and Pain of the Right Hip. Ashlee Jalloh has had progressive problems with the hip(s) constantly over the past 1 year(s) interfering with activities which include exercise, rising from a sitting position, and getting in and out of a car. The problem began limiting activities 7-12 months ago. Ashlee reports a current pain level of 8 (Back-Lower). She describes the pain as Aching, Burning, Sharp, Shooting, Stabbing, Stiffness, Tightness. The pain is Continuous . FALL RISK: Ashlee is not currently at risk for falls. PROMIS Physical Function Score Descriptive Summary for PROMIS Physical Function T-score = 35 (Percentile 7) Much difficulty - Carry a laundry basket up a flight of stairs. Some difficulty - Walk at a normal speed. Unable - Walk more than a mile (1.6 km). 01/05/2025 PROMIS CAT Physical Function T-Score 35 (moderate dysfunction) Percentile 7 FUNCTIONAL STATUS: independent REVIEW OF SYSTEMS: PAIN ASSESSMENT: See HPI. MUSCULOSKELETAL: See HPI. (more content not included)... Normal [facility] CNOV Office Visit (PENNIE ) ASHLEE JALLOH ([id number]) 1985 F Date Time Provider Department 01/05/25 2:00 PM RISHABH HUANG During your visit today, we recorded the following information about you: Pulse Blood pressure Weight 72/minute 119/63 81.6 kg Rishabh Huang MD 01/05/2025 3:00 PM Signed [facility] Department Consultation Date: January 05, 2025 - Referring physician: Johnathan Haas [address] [place] [facility] [place] [address] Ashele Jalloh is seen in consultation requested by Dr. Johnathan Haas for an opinion regarding chronic lower back pain. My final recommendations will be communicated back to the requesting physician by way of shared medical record or via US mail. Chief Complaint: Patient presents with: Consult SUBJECTIVE History of Present Illness Ashlee Jalloh is a 39 year old and presents with lower back pain. Past medical history is significant for: No past medical history on file. Intensity of pain: 8 on a scale of 0-10. Duration of pain: Years ago, with no precipitating event.. The pain is located (rt hip,low back) and radiates to the foot/toe bilaterally. Pain Description: Continuous Sharp, Stabbing, Tightness, Aching Timing: changes in severity but always present Aggravating Factors: activity and pain is constant Alleviating Factors: Reposition (tens unit) Interference with: physical activity, sleeping, and social activities. In the past 12 months, She completed 4 physical therapy sessions. Physical therapy is not helpful. The patient has not seen other pain providers. Rheumatology 10/07/24 Assessment / Recommendations 1. Fibromyalgia Overall impression and Plan I explained to patient that there is no evidence of synovitis/synovial hypertrophy during today's exam. Based on history, ros, clinical exam the likelihood of inflammatory arthritis/or systemic autoimmune disorder is low at this time. Should the symptoms change we may consider repeating labs, monitor symptoms at this time Her symptoms at this time can be explained by fibromyalgia. I shared following information with her #Fibromyalgia The patient has widespread pain, on both sides of the body, above and below the waist. Patient has multiple associated symptoms with fibromyalgia that include chronic fatigue, chronic sleep disturbances, cognitive disturbances, IBS, headaches I spent time counseling the patient on fibromyalgia. I explained to the patient that fibromyalgia is a disorder characterized by widespread musculoskeletal pain, accompanied by fatigue, sleep, memory in mood issues. In general it is thought that fibromyalgia symptoms are secondary to overactive nerves, which amplify painful sensations by the way the brain processes the pain signals. I told the patient on functional brain MRIs, we have also seen that fibromyalgia patients have increased blood flow to the somatosensory cortex. I told the patient the good news, is that this syndrome cannot cause any organ dysfunction, and does not lead to accelerated osteoarthritis. Unfortunately, the bad news, is that it can disrupt quality of the life significantly. Main stays of treatment include the following -daily relaxing exercise, start with 10-15 minutes a day and slowly build up -good sleep hygiene -avoid alcohol, cigarettes -practice eating mostly whole foods plant based diet -5-10 minutes of meditation daily -stress management -plan relaxing activities with family and friends Overall Impression from Dr. Morales: Ashlee Jalloh is a 39 y.o. female patient with a recent history of nasal septal perforation who was referred to our office by her ENT provider for concern of this cartilage finding as well as ongoing arthritis. At this time based on the patient's history, ros, physical exam, and prior workup I have a low degree of suspicion for small-vessel vasculitis as the etiology of her present nasal septal perforation. However to more comprehensively rule out a systemic vasculitis we pursued additional serologic testing. In terms of the patient's ongoing arthritic symptoms it is concerning that she has had lumbar spine abnormalities and sacroiliac pain chronically at a relatively young age. It seems from review of her outside charting in her previous imaging there was not definitive evidence of an inflammatory arthritis. However there was not a dedicated sacroiliac imaging that was done in the recent past. As such today we pursued plain film imaging of the sacroiliac joints to better characterize her ongoing SI joint pain. The results of her recent work up were within normal limits. She had evidence of degenerative arthritis but no definitive evidence of a systemic autoimmune condition or inflammatory arthritis. We did discuss the possibility that her ongoing chronic pain symptoms could be based in fibromyal (more content not included)... Normal [facility] XR HIP 3V PELV+ AP/LAT RTon 01-05-2025 XR HIP 3V PELV+ AP/LAT RT * * *Final Report* * * DATE OF EXAM: Jan 05 2025 3:14PM AFR [id number] - XR HIP 3V PELV+ AP/LAT RT / PROCEDURE REASON: Pain in right hip * * * * Physician Interpretation * * * * EXAMINATION / TECHNIQUE: XR HIP 3V PELV+ AP/LAT RT HISTORY: RT GROIN PAIN,LABRIAL TEAR RT HIP Pain in right hip COMPARISON: None. FINDINGS: No acute fracture or malalignment is identified. The hip joint spaces are maintained. The sacroiliac joints and symphysis pubis are intact. IMPRESSION: No acute bony abnormality or significant hip osteoarthritis. Metallic Yarn Slitting Machine Operator: EDGAR Transcribe Date/Time: Jan 05 2025 9:25P Dictated by : FREDDY HENRIQUEZ MD This examination was interpreted and the report reviewed and electronically signed by: FREDDY HENRIQUEZ MD on Jan 05 2025 9:26PM EST [id number] Normal [facility] XR Pelvis and Hip - right AP and Lateral frogon 01-05-2025 IMPRESSION: No acute bony abnormality or significant hip osteoarthritis. Metallic Yarn Slitting Machine Operator: EDGAR Transcribe Date/Time: Jan 05 2025 9:25P Dictated by : FREDDY HENRIQUEZ MD This examination was interpreted and the report reviewed and electronically signed by: FREDDY HENRIQUZE MD on Jan 05 2025 9:26PM [facility] DIVISION OF RADIOLOGY * * *Final Report* * * DATE OF EXAM: Jan 05 2025 3:14PM AFR 5352 - XR HIP 3V PELV+ AP/LAT RT / PROCEDURE REASON: Pain in right hip * * * * Physician Interpretation * * * * EXAMINATION / TECHNIQUE: XR HIP 3V PELV+ AP/LAT RT HISTORY: RT GROIN PAIN,LABRIAL TEAR RT HIP Pain in right hip COMPARISON: None. FINDINGS: No acute fracture or malalignment is identified. The hip joint spaces are maintained. The sacroiliac joints and symphysis pubis are intact. DIVISION OF RADIOLOGY Provider, [facility] - 01/05/2025 * * *Final Report* * * DATE OF EXAM: Jan 05 2025 3:14PM AFR 5352 - XR HIP 3V PELV+ AP/LAT RT / PROCEDURE REASON: Pain in right hip * * * * Physician Interpretation * * * * EXAMINATION / TECHNIQUE: XR HIP 3V PELV+ AP/LAT RT HISTORY: RT GROIN PAIN,LABRIAL TEAR RT HIP Pain in right hip COMPARISON: None. FINDINGS: No acute fracture or malalignment is identified. The hip joint spaces are maintained. The sacroiliac joints and symphysis pubis are intact. IMPRESSION IMPRESSION: No acute bony abnormality or significant hip osteoarthritis. Metallic Yarn Slitting Machine Operator: [facility] Transcribe Date/Time: Jan 05 2025 9:25P Dictated by : FREDDY HENRIQUEZ MD This examination was interpreted and the report reviewed and electronically signed by: FREDDY HENRIQUEZ MD on Jan 05 2025 9:26PM EST [facility] Radiology Study observation (narrative) [facility] XR Pelvis and Hip - right AP and Lateral frogOrdered By: [facility] Provider on 01-05-[address] [facility] [address] LUMBAR SPINE WO IVCONon 0 12-26-2024 CT LUMBAR SPINE WO IVCON * * *Final Report* * * DATE OF EXAM: Dec 26 2024 6:27PM [facility] [id number] - CT LUMBAR SPINE WO IVCON / PROCEDURE REASON: Spinal stenosis of lumbar region, unspecified whether neurogenic claudication pr * * * * Physician Interpretation * * * * EXAMINATION: CT LUMBAR SPINE WO IVCON CLINICAL HISTORY: Chronic pain syndrome with severe low back, pelvic, and bilateral hip pain with L4-5 posterior fusion and fusion of the SI joints. COMPARISON: None available. TECHNIQUE: Standard CT of the lumbar spine was performed without IV or intrathecal contrast. CT Radiation dose: Integrated Dose-length product (DLP) for this visit = 803 mGy*cm. CT Dose Reduction Employed: Automated exposure control (AEC) FINDINGS: There are 4 lumbar type vertebrae with sacralization of L5 on the left. The left transverse process of L5 is enlarged fusing with the sacroiliac joint (Castellvi type IIIa). There are postsurgical changes of L4-5 posterior fusion bipedicular screws and bilateral fusion rods. Additional interbody cage placement at L4-5. There is been posterior decompression at L4 with bilateral laminectomies and resection of the spinous processes. There is been additional right medial facetectomy and left total facetectomy. No gross evidence of fluid collections at the surgical site within limitations of artifact and lack of intravenous contrast. Subtle dextrocurvature of the lumbar spine. No subluxation. The height of the vertebral bodies are maintained. There is irregularity at the posterior aspects of the right iliac bones at the superior aspect of the sacroiliac joints with faint calcification possibly related to previous attempted fusion with bone graft placement. No bridging callus. Minimal degenerative changes at the inferior aspects of the sacroiliac joints. No erosions. No evidence of acute osseous abnormality or destructive osseous lesion. Evaluation of the distal cord, conus, and cauda equina suboptimal without intrathecal contrast. T12-L1: No significant disc pathology or stenosis. L1-L2: No significant disc pathology or stenosis. L2-L3: Questionable protrusion the left foraminal region. Facet joints are maintained. No evidence of central canal or neural foraminal stenosis. L3-L4: Evaluation is partially obscured due to streak artifact from the posterior fusion hardware Mild concentric disc bulge. Mild left and minimal right facet arthropathy. Questionable resection of the right ligamentum flavum. Central canal suboptimally evaluated due to artifact. There appears to be mild bilateral neural foraminal stenoses within limitations of technique. L4-L5: Postsurgical changes of posterior fusion and posterior decompression. Ankylosis of the right facet joint. Central canal is suboptimally evaluated due to artifact. Neural foramina appear patent within limitations of artifact. L5-S1: Disc is maintained. Bridging discogenic osteophyte formation in the left foraminal region. Minimal right facet arthropathy. Central canal is patent. Minimal left neural femoral narrowing. Right neural foramen is patent. Moderate atrophy of the erector spinae musculature overlying the lower lumbar spine and sacrum related to the posterior fusion. Paraspinal soft tissues are otherwise unremarkable. IMPRESSION: 1. Postsurgical changes of posterior fusion at L4-5 with posterior decompression L4 without evidence of hardware complication. 2. Irregularity at the posterior aspect of the sacral ala at the SI joints superiorly may be related to attempted fusion. No bridging callus fusing the sacroiliac joints. 3. Multifactorial degenerative changes in the mid to lower lumbar spine as above in more detail. Metallic Yarn Slitting Machine Operator: [facility] Transcribe Date/Time: Dec 30 2024 10:05A Dictated by : ROSSANA PETER MD This examination was interpreted and the report reviewed and electronically signed by: ROSSANA PETER MD on Dec 30 2024 11:22AM EST [id number] Normal [facility] CNCOon 12-19-2024 CNCO Letter Text Normal [facility] XR LUMBAR SPINE (2-3 VIEWS)o n 12-19-2024 XR LUMBAR SPINE (2-3 VIEWS) EXAMINATION: 3 XRAY VIEWS OF THE LUMBAR SPINE 12/19/2024 11:53 am COMPARISON: 09/01/2023 HISTORY: ORDERING SYSTEM PROVIDED HISTORY: Low back pain TECHNOLOGIST PROVIDED HISTORY: Low back pain FINDINGS: Status post posterior spinal fusion and laminectomy at L4-5. Hardware appears intact. Disc spacer remains in satisfactory position. Mild disc space narrowing at L5-S1. Disc spaces otherwise maintained. Alignment within normal limits. IMPRESSION: Status post L4-5 posterior spinal fusion in unchanged alignment. No evidence of hardware complication. Mild disc height loss at L5-S1 appears unchanged. Interpreted by: Ab Escobar MD Signed by: bA Escobar MD 12/19/24 Final result Normal [facility] XR Lumbar spine 2 or 3 Views on 12-19-2024 Status post L4-5 posterior spinal fusion in unchanged alignment. No evidence of hardware complication. Mild disc height loss at L5-S1 appears unchanged. [facility] EXAMINATION: 3 XRAY VIEWS OF THE LUMBAR SPINE 12/19/2024 11:53 am COMPARISON: 09/01/2023 HISTORY: ORDERING SYSTEM PROVIDED HISTORY: Low back pain TECHNOLOGIST PROVIDED HISTORY: Low back pain FINDINGS: Status post posterior spinal fusion and laminectomy at L4-5. Hardware appears intact. Disc spacer remains in satisfactory position. Mild disc space narrowing at L5-S1. Disc spaces otherwise maintained. Alignment within normal limits. [facility] Ab Escobar MD - 12/19/2024 EXAMINATION: 3 XRAY VIEWS OF THE LUMBAR SPINE 12/19/2024 11:53 am COMPARISON: 09/01/2023 HISTORY: ORDERING SYSTEM PROVIDED HISTORY: Low back pain TECHNOLOGIST PROVIDED HISTORY: Low back pain FINDINGS: Status post posterior spinal fusion and laminectomy at L4-5. Hardware appears intact. Disc spacer remains in satisfactory position. Mild disc space narrowing at L5-S1. Disc spaces otherwise maintained. Alignment within normal limits. IMPRESSION: Status post L4-5 posterior spinal fusion in unchanged alignment. No evidence of hardware complication. Mild disc height loss at L5-S1 appears unchanged. [facility] Radiology Study observation (narrative) [facility] XR THORACIC SPINE (2 VIEWS)o n 12-19-2024 XR THORACIC SPINE (2 VIEWS) EXAMINATION: 3 XRAY VIEWS OF THE THORACIC SPINE 12/19/2024 11:53 am COMPARISON: None. HISTORY: ORDERING SYSTEM PROVIDED HISTORY: back pain, NKI TECHNOLOGIST PROVIDED HISTORY: back pain, NKI FINDINGS: Vertebral body heights maintained. Normal alignment. No significant disc space narrowing. Mild degenerative endplate spurring in the midthoracic spine. IMPRESSION: No acute abnormality identified. Mild degenerative changes. Interpreted by: Ab Escobar MD Signed by: Ab Escobar MD 12/19/24 Final result Normal [facility] XR Thoracic spine 2 Viewson 12-19-2024 No acute abnormality identified. Mild degenerative changes. [facility] EXAMINATION: 3 XRAY VIEWS OF THE THORACIC SPINE 12/19/2024 11:53 am COMPARISON: None. HISTORY: ORDERING SYSTEM PROVIDED HISTORY: back pain, NKI TECHNOLOGIST PROVIDED HISTORY: back pain, NKI FINDINGS: Vertebral body heights maintained. Normal alignment. No significant disc space narrowing. Mild degenerative endplate spurring in the midthoracic spine. [facility] Ab Escobar MD - 12/19/2024 EXAMINATION: 3 XRAY VIEWS OF THE THORACIC SPINE 12/19/2024 11:53 am COMPARISON: None. HISTORY: ORDERING SYSTEM PROVIDED HISTORY: back pain, NKI TECHNOLOGIST PROVIDED HISTORY: back pain, NKI FINDINGS: Vertebral body heights maintained. Normal alignment. No significant disc space narrowing. Mild degenerative endplate spurring in the midthoracic spine. IMPRESSION: No acute abnormality identified. Mild degenerative changes. [facility] Radiology Study observation (narrative) [facility] XR Thoracic spine 2 ViewsOrd ered By: Ab Escobar on 12-19-2024 [facility] Work Phone: Velia [facility] ASHLEE JALLOH ([id number]) 1985 F Date Time Provider Department 12/18/24 RISHABH HUANG During your visit today, we recorded the following information about you: Heidy Nunez RN 12/18/2024 1:01 PM Signed Called and left message for patient. Informed her of this message: This message is in regards to your upcoming appointment with Dr. Huang on 01/05/25. Please bring any outside medical records, imaging and lab work with you to your appointment. Also Dr. Huang is interventional pain management (injections, physical therapy and non-narcotic medications), he does not prescribe or take over any narcotic opioid pain medications. Informed patient to complete Xrays that were ordered by Dr. Haas prior to her appointment, can go to any [facility] facility convenient for you. If you have any questions about your appointment, please call [phone] and ask for pain management. Thank You, The Pain Management Office Allergies As of Date: 12/18/2024 Noted Allergy Reaction NALBUPHINE 04/10/2013 5 - Intolerance 11 - Vomiting 14 - Other: See Comments 2 - Rash Comments: Pt vomited after being given Nubain in the past pt states when taking it becamse dizzy and nauseated was pregant had to be rushed back to surgery. ADHESIVE TAPE (ROSINS) 08/17/2023 2 - Rash Comments: Cloth tape, tears skin and welts Date Reviewed: 12/15/2024 Reviewed by: Geetha Collier LPN - Fully Assessed Reason for Visit: Appointment [[id number]] Cmt: New patient call Prescriptions as of 12/18/2024 - Peetg-7-TXF-EPA-Fish Oil (FISH OIL) 1,000 (120-180) mg cap Take 1 capsule by mouth once daily. - esomeprazole (NEXIUM) 20 mg capsule Take 20 mg by mouth once daily. - BASE, PCCA VANPEN crea Apply 1 application to affected area once daily. - ibuprofen (MOTRIN) 400 mg tablet Take 1 tablet by mouth every 6 hours as needed. - MOBIC 15 mg tablet Take 15 mg by mouth once daily. - naproxen (NAPROSYN) 250 mg tablet Take 250 mg by mouth two times a day with meals. - ubrogepant (UBRELVY) 100 mg tablet Take 100 mg by mouth once daily as needed. Problem List As Of Date: 12/18/2024 (None) Encounter Status:Closed by HEIDY NUNEZ on 12/18/24 [facility] Velia 12-17-2024 [facility] Telephone ([id number]) ASHLEE JALLOH ([id number]) 1985 F Date Time Provider Department 12/17/24 JOHNATHAN HAAS REMS31 During your visit today, we recorded the following information about you: Patricia Salazar 12/17/2024 9:06 AM Signed Ashlee is calling Johnathan Haas MD today asking for a work noted from when she was seen on 12/15 to be faxed over to her work. F: [phone] Attn: Michael Patient has been identified by name and birthdate. Duration of symptoms: N/A Person calling: self Call patient at: at home [phone] (home) Was an appointment scheduled: No Closing statement: Results or non-symptom based questions: Thank you for calling [facility], your call will be returned within the next business day. Johnathan Foley MD 12/19/2024 4:31 PM Signed letter in Fastr Please fax Allergies As of Date: 12/17/2024 Noted Allergy Reaction NALBUPHINE 04/10/2013 5 - Intolerance 11 - Vomiting 14 - Other: See Comments 2 - Rash Comments: Pt vomited after being given Nubain in the past pt states when taking it becamse dizzy and nauseated was pregant had to be rushed back to surgery. ADHESIVE TAPE (ROSINS) 08/17/2023 2 - Rash Comments: Cloth tape, tears skin and welts Date Reviewed: 12/15/2024 Reviewed by: Geetha Collier LPN - Fully Assessed Prescriptions as of 12/19/2024 - Cjtqg-0-OEI-EPA-Fish Oil (FISH OIL) 1,000 (120-180) mg cap Take 1 capsule by mouth once daily. - esomeprazole (NEXIUM) 20 mg capsule Take 20 mg by mouth once daily. - BASE, PCCA VANPEN crea Apply 1 application to affected area once daily. - ibuprofen (MOTRIN) 400 mg tablet Take 1 tablet by mouth every 6 hours as needed. - MOBIC 15 mg tablet Take 15 mg by mouth once daily. - naproxen (NAPROSYN) 250 mg tablet Take 250 mg by mouth two times a day with meals. - ubrogepant (UBRELVY) 100 mg tablet Take 100 mg by mouth once daily as needed. Problem List As Of Date: 12/17/2024 (None) Encounter Status:Closed by JOHNATHAN HAAS on 12/19/24 Normal [facility] CNOVon 12-15-2024 CNOV Office Visit (REHAV) ASHLEE JALLOH ([id number]) 1985 F Date Time Provider Department 12/15/24 3:00 PM JOHNATHAN HAAS REHAV During your visit today, we recorded the following information about you: Pulse Blood pressure Weight 73/minute 110/65 82 kg Johnathan Haas MD 12/15/2024 6:30 PM Signed [facility] Self-referral Complains of whole spine pain Multiple medical issues Fibromyalgia Chronic pain syndrome PTSD chronic depression History of a lumbar spine surgery x 3 most recent in August 2023 bilateral SI joint fusion prior to that she had lumbar fusion states surgery helped for couple months Complains of severe lower back pain bilateral hip pain radiation to legs severe pain limiting function Chronic pelvic pain bilateral hip and groin pain right more than left She was diagnosed with a labral tear would like to see orthopedic at [facility] Chronic depression PTSD would like to establish with psych at [facility] No recent injury or fall 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 These symptoms have been present for several year(s). The onset of symptoms was gradual and progressive. She states the pain is constant, moderate, and severe. The pain is described as aching, moderate, penetrating, severe, sharp, soreness, stiff, tenderness, tingling, and cramping. She reports fusion(s) in lumbar spine and bilateral SI joints. Over a 24-hour period of time, the pain is worst across the whole day and when performing certain activities. The patient states the pain is exacerbated by bending backward, bending forward, exercise, lifting, reaching, twisting, standing, sitting, walking, walking up stairs, and walking down stairs. The patient notes, to date, that the pain is reduced by nonspecific. Up to now, treatments have included: hot packs, massage, physical therapy , exercises, and spinal injections . Positive red flags : are absent on history.. Negative red flags include: age greater than 50 years, fevers, night pain, bowel incontinence, bladder incontinence, persistent adolescent back pain, diagnosis of cancer, significant spinal trauma, and weight loss. 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 Review of systems notes no cough, fever, weight loss or systemic illness. ALLERGIES Allergen Reactions Nalbuphine Intolerance, Vomiting, Other: See Comments, Rash Pt vomited after being given Nubain in the past pt states when taking it becamse dizzy and nauseated was pregant had to be rushed back to surgery. Adhesive Tape (Palak* Rash Cloth tape, tears skin and welts Current Outpatient Medications Medication Sig Emvbf-6-SKU-EPA-Fish Oil (FISH OIL) 1,000 (120-180) mg cap Take 1 capsule by mouth once daily. esomeprazole (NEXIUM) 20 mg capsule Take 20 mg by mouth once daily. BASE, PCCA VANPEN crea Apply 1 application to affected area once daily. ibuprofen (MOTRIN) 400 mg tablet Take 1 tablet by mouth every 6 hours as needed. MOBIC 15 mg tablet Take 15 mg by mouth once daily. naproxen (NAPROSYN) 250 mg tablet Take 250 mg by mouth two times a day with meals. ubrogepant (UBRELVY) 100 mg tablet Take 100 mg by mouth once daily as needed. No current facility-administered medications for this visit. Medical history was reviewed and acknowledged. PTSD chronic pain fibromyalgia labral ter right side The patient's surgical history was reviewed and acknowledged. s/p lumbar fusion s/p 2 C section s/p pre cervical cancer s/p ablation, s/p hysterectomy Family history was reviewed and acknowledged. Review of social history and habits notes that She Social History Tobacco Use Smoking status: Never Smokeless tobacco: Never Substance Use Topics Alcohol use: Not Currently Drug use: Never Patient Entered Questionnaires PROMIS Score Percentiles Percentiles provide an indication of how the patient's score ranks in relation to the general population. Higher percentile rankings indicate better function/quality of life. 50th percentile is the average of the general population and indicates half of respondents had a worse score. EXAM: Vital Signs reviewed: BP 110/65 (BP Site: Left Arm, BP Position: Sitting, BP Cuff Size: Regular Ovi (more content not included)... Normal [facility] Office/Clini c Noteon 12-05-2024 Family Medicine Office/Clinic Note Family Medicine Office/Clinic Note HPI Staff Ashlee is a 39 year old female presenting for ER follow up ER followup: PHQ-9: 19 Hospital: [facility] Visit date: 12/03/24 Symptoms the patient presented with: neck/back pain Symptom onset/injury onset: over a week, pain top right back/neck , was unable to feel her arm, pain going down right arm and leg Testing Performed: CTA New medications: Meloxicam and methylprednisone Therapy ordered: n/a Next appointment date: Current concerns: pt continues to have a lot of pain to right side of neck going into her shoulder, she went to chiropractor yesterday and pt states he wasn't able to do anything with her neck. Pt would like to discuss getting MRI on her neck and possibly her back History of Present Illness pt presents today with continued neck pain. Review of Systems PHQ Score Initial Depression Screen Score: 4 SCORE Detailed Depression Screen Score: 15 Total Depression Screen Score: 19 Physical Exam Vitals & Measurements HR: 82(Peripheral) RR: 16 BP: 122/80 SpO2: 98% HT: 63 in HT: 161.0 cm WT: 181.881 lb WT: 82.5 kg BMI: 31.83 pt presents today for ER follow up. having neck pain and tingling of right arm Assessment/Plan 1. Neck pain (M54.2: Cervicalgia) pt having severe neck pain and tingling of right arm. all diagnostics were negative at ER. pt was given medrol dose pack, meloxicam and muscle relaxer. pt is unable to take muscle relaxer. will give her 30 of toradol in office today. pt is going to reach out to her orthopedic surgeon to see if he would like any further imaging Ordered: ketorolac, 30 mg = 1 mL, Injection, IntraMuscular, Once, Stop date 12/05/24 14:48:00 EDT, Routine, Start date 12/05/24 14:48:00 EDT, 12/05/24 14:48:00 EDT 2. Tingling of right upper extremity (R20.2: Paresthesia of skin) Toradol given in office today Ordered: ketorolac, 30 mg = 1 mL, Injection, IntraMuscular, Once, Stop date 12/05/24 14:48:00 EDT, Routine, Start date 12/05/24 14:48:00 EDT, 12/05/24 14:48:00 EDT 3. Adult BMI 31.0-31.9 kg/sq m (Z68.31: Body mass index [BMI] 31.0-31.9, adult) BMI education given Ordered: ketorolac, 30 mg = 1 mL, Injection, IntraMuscular, Once, Stop date 12/05/24 14:48:00 EDT, Routine, Start date 12/05/24 14:48:00 EDT, 12/05/24 14:48:00 EDT 4. Non-smoker (Z78.9: Other specified health status) continue not smoking Ordered: atorvastatin, 10 mg = 1 tab(s), Oral, Daily, # 90 tab(s), Refills(s) 1, Pharmacy: [facility] [id number], 161, cm, 10/06/24 8:53:00 EST, Height/Length Dosing, 78, kg, 10/06/24 8:53:00 EST, Weight Dosing ketorolac, 30 mg = 1 mL, Injection, IntraMuscular, Once, Stop date 12/05/24 14:48:00 EDT, Routine, Start date 12/05/24 14:48:00 EDT, 12/05/24 14:48:00 EDT Follow-up No qualifying data available Problem List/Past Medical History Ongoing Abnormal rapid eye movement sleep Allergies Anemia Angiolipoma of right kidney Blisters of multiple sites BMI 29.0-29.9,adult Brain fog Class 1 obesity with body mass index (BMI) of 31.0 to 31.9 in adult Cold feet Daytime somnolence Encounter for weight management Flank pain Fluid level behind tympanic membrane of both ears Hip pain Hypercholesteremia Leg pain, bilateral Loud snoring Low back pain Low blood pressure Migraine headache Myringitis of left ear Nasal septal perforation Neck pain Nonsmoker Numbness of both lower extremities Obstructive apnea Overweight (BMI 25.0-29.9) Pain in finger Poor circulation of extremity Posttraumatic stress disorder Pre-op exam PTSD (post-traumatic stress disorder) Recurrent severe major depressive disorder co-occurrent with anxiety Screening for thyroid disorder Sensory disorder Tingling of right upper extremity Vertigo Weight gain Witnessed episode of apnea Historical No qualifying data Procedure/Surgical History Surgery (2022), Surgery (2022), Surgery (2020), delivery (2016), delivery, Hysterectomy, Surgery. Medications ketorolac 30 mg/mL Inj 1 mL, 30 mg= 1 mL, IntraMuscular, Once meloxicam 15 mg Tab methylPREDNISolone 4 mg tab dosepak, 1 packet(s), Oral, Once naproxen 500 mg Tab, 500 mg= 1 tab(s), Oral, BID Nexium 20 mg Cap-DR, 20 mg= 1 cap(s), Oral, Daily Ubrelvy 100 mg oral tablet, 100 mg= 1 tab(s), Oral, Once, 1 refills Allergies Nubain (Nausea) Silicone (simethicone) obsolete (Hives) Social History Alcohol Never., 06/30/2024 Substance Abuse Never., 06/30/2024 Tobacco Never (less than 100 in lifetime) Tobacco Use:. Never Smokeless Tobacco Use:. Cigarettes, Household tobacco concerns: No. Yes, 09/16/2024 Family History Patient was adopted Family history is negative Immunizations Vaccine Date Status Comments influenza virus vaccine, inactivated 07/07/2022 Recorded SARS-CoV-2 (COVID-19) mRNA BNT-162b2 vax 02/25/2021 Recorded 2023-05-18: TPVAL SARS-CoV-2 (COVID-19) mRNA BNT-162b2 vax 02/04/2021 Recorded 2023-05-18: T (more content not included)... Normal [facility] Comment on above: Result Comment: Elec tronically Signed By: Lidia Jones\.br\Date and Time Signed: 12/05/24 14:53 EDT Provider Letteron 12-05-2024 Provider Letter Provider Letter December 05, 2024 ASHLEE JALLOH [address] [place] [address] : 1985 To Whom It May Concern, Please excuse above patient from work. Date of Illness: 12/05/2024 May Return to Work On: 12/08/2024 Sincerely, [address] [address] Normal [facility] Brain Natri. Peptideon 12-03 Pro-BNP <36 Normal 0-125 [facility] Comment on above: Performed By: #### C DP, TROPI, CP, MG, BNP #### [facility] [address] [place] [address] Help Desk Support Specialist: Haley Mccall MD Brain Natriuretic Peptideon 12-03-2024 Natriuretic peptide B (Bld) [Mass/Vol] pg/mL 0 - 125 pg/mL [facility] CBC with Auto Differentialon 12-03-2024 Basophils (Bld) [#/Vol] 0.04 10*3/uL [facility] Basophils/100 WBC (Bld) 0 % 0 - 2 % [facility] Eosinophils (Bld) [#/Vol] 0.13 10*3/uL [facility] Eosinophils/100 WBC (Bld) 1 % 1 - 4 % [facility] Erythrocyte distribution width (RBC) [Ratio] 12 % 11.8 - 14.4 % [facility] Hematocrit (Bld) [Volume fraction] 38.5 % 36.3 - 47.1 % [facility] Hemoglobin (Bld) [Mass/Vol] 13.2 g/dL 11.9 - 15.1 g/dL [facility] Immature granulocytes (Bld) [#/Vol] 0.03 10*3/uL [facility] Immature granulocytes/100 WBC (Bld) 0 % 0 [facility] Interpretation and review of laboratory results Abnormal [facility] Lymphocytes/100 WBC (Bld) 11 % Low 24 - 43 % [facility] Lymphocytes/100 WBC (Bld) 1.11 % [facility] MCH (RBC) [Entitic mass] 29.5 pg 25.2 - 33.5 pg [facility] MCHC (RBC) [Mass/Vol] 34.3 g/dL 28.4 - 34.8 g/dL [facility] MCV (RBC) [Entitic vol] 86.1 fL 82.6 - 102.9 fL [facility] Monocytes/100 WBC (Bld) 7 % 3 - 12 % [facility] Monocytes/100 WBC (Bld) 0.64 % [facility] Neutrophils/100 WBC (Bld) 81 % High 36 - 65 % [facility] Nucleated RBC/100 WBC (Bld) [Ratio] 0 % 0.0 per 100 WBC [facility] Platelet mean volume (Bld) [Entitic vol] 9.7 fL 8.1 - 13.5 fL [facility] Platelets (Bld) [#/Vol] 296 10*3/uL [facility] RBC (Bld) [#/Vol] 4.47 10*6/uL 3.95 - 5.1 1 m/uL [facility] Segmented neutrophils/100 WBC (Bld) 7.87 % [facility] WBC other (Bld) [#/Vol] 9.8 [facility] CBC with Diffon 12-03-2024 Abs. Basophil 0.04 k/uL Normal 0.00-0.20 [facility] Comment on above: Performed By: #### C DP, TROPI, CP, MG, BNP #### [facility] [address] [place] [address] Help Desk Support Specialist: Haley Mccall MD Abs.Imm.Granulocyte 0.03 k/uL Normal 0.00-0.30 [facility] Comment on above: Performed By: #### C DP, TROPI, CP, MG, BNP #### [address] [place] [id number] Help Desk Support Specialist: Haley Mccall MD Abs.Neutrophil (Seg) 7.87 k/uL Normal 1.50-8.10 [facility] Comment on above: Performed By: #### C DP, TROPI, CP, MG, BNP #### [address] [place] [id number] Help Desk Support Specialist: Haley Mccall MD Basophils/100 WBC (Bld) 0 % Normal 0-2 [facility] Comment on above: Performed By: #### C DP, TROPI, CP, MG, BNP #### [address] [place] [id number] Help Desk Support Specialist: Haley Mccall MD Eosinophils (Bld) [#/Vol] 0.13 10*3/uL Normal 0.00-0.44 [facility] Comment on above: Performed By: #### C DP, TROPI, CP, MG, BNP #### [address] [place], [facility] Help Desk Support Specialist: Haley Mccall MD Eosinophils/100 WBC (Bld) 1 % Normal 1-4 [facility] Comment on above: Performed By: #### C DP, TROPI, CP, MG, BNP #### [address] [place] [address] Help Desk Support Specialist: Haley Mccall MD Erythrocyte distribution width (RBC) [Ratio] 12.0 % Normal 11.8-14.4 [facility] Comment on above: Performed By: #### C DP, TROPI, CP, MG, BNP #### [address] [place] [address] Help Desk Support Specialist: Haley Mccall MD Hematocrit (Bld) [Volume fraction] 38.5 % Normal 36.3-47.1 [facility] Comment on above: Performed By: #### C DP, TROPI, CP, MG, BNP #### [address] [place], [place] [id number] Help Desk Support Specialist: Haley Mccall MD Hemoglobin (Bld) [Mass/Vol] 13.2 g/dL Normal 11.9-15.1 [facility] Comment on above: Performed By: #### C DP, TROPI, CP, MG, BNP #### [address] [place], [facility] Help Desk Support Specialist: Haley Mccall MD Immature granulocytes/100 WBC (Bld) 0 % Normal 0 [facility] Comment on above: Performed By: #### C DP, TROPI, CP, MG, BNP #### [address] [place], [place] [address] Help Desk Support Specialist: Haley Mccall MD Lymphocytes (Bld) [#/Vol] 1.11 10*3/uL Normal 1.10-3.70 [facility] Comment on above: Performed By: #### C DP, TROPI, CP, MG, BNP #### [address] [place], [place] [id number] Help Desk Support Specialist: Haley Mccall MD Lymphocytes/100 WBC (Bld) 11 % Low 24-43 [facility] Comment on above: Performed By: #### C DP, TROPI, CP, MG, BNP #### [address] [place], [facility] Help Desk Support Specialist: Haley Mccall MD MCH (RBC) [Entitic mass] 29.5 pg Normal 25.2-33.5 [facility] Comment on above: Performed By: #### C DP, TROPI, CP, MG, BNP #### [address] [place], [facility] Help Desk Support Specialist: Haley Mccall MD MCHC (RBC) [Mass/Vol] 34.3 g/dL Normal 28.4-34.8 [facility] Comment on above: Performed By: #### C DP, TROPI, CP, MG, BNP #### [facility] [address] [place], [place] [id number] Help Desk Support Specialist: Haley Mccall MD MCV (RBC) [Entitic vol] 86.1 fL Normal 82.6-102.9 [facility] Comment on above: Performed By: #### C DP, TROPI, CP, MG, BNP #### [facility] [address] [place], [place] [id number] Help Desk Support Specialist: Haley Mccall MD Monocytes (Bld) [#/Vol] 0.64 10*3/uL Normal 0.10-1.20 [facility] Comment on above: Performed By: #### C DP, TROPI, CP, MG, BNP #### [address] [place], [place] [id number] Help Desk Support Specialist: Haley Mccall MD Monocytes/100 WBC (Bld) 7 % Normal 3-12 [facility] Comment on above: Performed By: #### C DP, TROPI, CP, MG, BNP #### [address] [place] [address] Help Desk Support Specialist: Haley Mccall MD Neutrophil (Seg) 81 % High 36-[address] [facility] Comment on above: Performed By: #### C DP, TROPI, CP, MG, BNP #### [facility] [address] [place], [place] [id number] Help Desk Support Specialist: Haley Mccall MD NRBC Automated 0.0 per 100 WBC Normal 0.0 [facility] Comment on above: Performed By: #### C DP, TROPI, CP, MG, BNP #### [address] [place], [place] [id number] Help Desk Support Specialist: Haley Mccall MD Platelet mean volume (Bld) [Entitic vol] 9.7 fL Normal 8.1-13.5 [facility] Comment on above: Performed By: #### C DP, TROPI, CP, MG, BNP #### [facility] [address] [place] [address] Help Desk Support Specialist: Haley Mccall MD Platelets (Bld) [#/Vol] 296 10*3/uL Normal 138-453 [facility] Comment on above: Performed By: #### C DP, TROPI, CP, MG, BNP #### [facility] [address] [place] [address] Help Desk Support Specialist: Haley Mccall MD RBC (Bld) [#/Vol] 4.47 10*6/uL Normal 3.95-5.11 [facility] Comment on above: Performed By: #### C DP, TROPI, CP, MG, BNP #### [facility] [address] [place] [address] Help Desk Support Specialist: Haley Mccall MD WBC (Bld) [#/Vol] 9.8 10*3/uL Normal 3.5-11.3 [facility] Comment on above: Performed By: #### C DP, TROPI, CP, MG, BNP #### [facility] [address] [place] [id number] Help Desk Support Specialist: Haley Mccall [facility] Albumin [Mass/Vol] 4.5 g/dL 3.5 - 5.2 g/dL [facility] Albumin/Globulin [Mass ratio] 1.6 {ratio} 1.0 - 2.5 [facility] ALP [Catalytic activity/Vol] 81 U/L 35 - 104 U/L [facility] ALT [Catalytic activity/Vol] 20 U/L 10 - 35 U/L [facility] Anion gap [Moles/Vol] 9 mmol/L 9 - 16 mmol/L [facility] AST [Catalytic activity/Vol] 23 U/L 10 - 35 U/L [facility] Bilirubin [Mass/Vol] 0.4 mg/dL 0.00 - 1.20 mg/dL [facility] Calcium [Mass/Vol] 9.4 mg/dL 8.6 - 10. 4 mg/dL [facility] Chloride [Moles/Vol] 101 mmol/L 98 - 10 7 mmol/L [facility] CO2 [Moles/Vol] 26 mmol/L 20 - 31 mmol/L [facility] Creatinine [Mass/Vol] 0.8 mg/dL 0.50 - 0.90 mg/dL [facility] Est, Glodelgado Gantt Rate - PINF [facility] Comment on above: These results are not [...] that affects renal tubular secretion. Glucose [Mass/Vol] 96 mg/dL 74 - 99 mg/dL [facility] Interpretation and review of laboratory results Abnormal [facility] Potassium [Moles/Vol] 4.3 mmol/L 3.7 - 5.3 mmol/L [facility] Protein [Mass/Vol] 7.3 g/dL 6.6 - 8.7 g/dL [facility] Sodium [Moles/Vol] 136 mmol/L 136 - 145 mmol/L [facility] Urea nitrogen [Mass/Vol] 20 mg/dL 6 - 20 mg/dL [facility] Urea nitrogen/Creatinine [Mass ratio] 25 mg/mg High 9 - 20 [facility] CT HEAD WO CONTRASTon 2024 CT HEAD WO CONTRAST ADDENDUM: Findings were communicated to Dr. CATHERINE CALVILLO by the CORE team on 12/03/2024 at 12:09 pm. Electronically Signed by: BARBRA BAIRES on SunDec 03, 2024 12:19:06 PM EDT EXAMINATION: CT OF THE HEAD WITHOUT CONTRAST 12/03/2024 11:35 am TECHNIQUE: CT of the head was performed without the administration of intravenous contrast. Automated exposure control, iterative reconstruction, and/or weight based adjustment of the mA/kV was utilized to reduce the radiation dose to as low as reasonably achievable. COMPARISON: No prior is available at the time of dictation. HISTORY: ORDERING SYSTEM PROVIDED HISTORY: Right sided numbness TECHNOLOGIST PROVIDED HISTORY: Right sided numbness Decision Support Exception - unselect if not [...] soft tissues. IMPRESSION: No acute intracranial abnormality. These results were sent to the CORE Team on 12/03/2024 at 12:03 pm to be communicated to the referring/covering health care provider/office. Interpreted by: Barbra Baires MD Signed by: Barbra Baires MD 12/03/24 Edited Result - FINAL Normal [facility] CT Head WO contraston 2024 Addendum by Barbra Baires MD on 12/03/2024 12:19 PM EDT ADDENDUM: Findings were communicated to Dr. CATHERINE CALVILLO by the CORE team on 12/03/2024 at 12:09 pm. [facility] No acute intracrania l abnormality. These results were sent to the CORE Team on 12/03/2024 at 12:03 pm to be communicated to the referring/covering health care provider/office. [facility] RIS CONSOLIDATED EXAMINATION: CT OF THE HEAD WITHOUT CONTRAST 12/03/2024 11:35 am TECHNIQUE: CT of the head was performed without the administration of intravenous contrast. Automated exposure control, iterative reconstruction, and/or weight based adjustment of the mA/kV was utilized to reduce the radiation dose to as low as reasonably achievable. COMPARISON: No prior is available at the time of dictation. HISTORY: ORDERING SYSTEM PROVIDED HISTORY: Right sided numbness TECHNOLOGIST PROVIDED HISTORY: Right sided numbness Decision Support Exception - unselect if not [...] of the visualized skull or soft tissues. [facility] Barbra Albert MD - 12/03/2024 EXAMINATION: CT OF THE HEAD WITHOUT CONTRAST 12/03/2024 11:35 am TECHNIQUE: CT of the head was performed without the administration of intravenous contrast. Automated exposure control, iterative reconstruction, and/or weight based adjustment of the mA/kV was utilized to reduce the radiation dose to as low as reasonably achievable. COMPARISON: No prior is available at the time of dictation. HISTORY: ORDERING SYSTEM PROVIDED HISTORY: Right sided numbness TECHNOLOGIST PROVIDED HISTORY: Right sided numbness Decision Support Exception - unselect if not [...] soft tissues. IMPRESSION: No acute intracranial abnormality. These results were sent to the CORE Team on 12/03/2024 at 12:03 pm to be communicated to the referring/covering health care provider/office. [facility] Radiology Study observation (narrative) [facility] CT Head WO contrastOrdered B y: Barbra Baires on 12-03-2024 [facility] Work Phone: CTA HEAD NECK W CONTRASTon 0 12-03-2024 CTA HEAD NECK W CONTRAST EXAMINATION: CTA OF THE HEAD AND NECK WITH CONTRAST 12/03/2024 11:36 am: TECHNIQUE: CTA of the head and neck was performed with the administration of intravenous contrast. Multiplanar reformatted images are provided for review. MIP images are provided for review. Stenosis of the internal carotid arteries measured using NASCET criteria. Automated exposure control, iterative reconstruction, and/or weight based adjustment of the mA/kV was utilized to reduce the radiation dose to as low as reasonably achievable. 3D reconstructed images were performed on a separate workstation and provided for review. COMPARISON: None. HISTORY: ORDERING SYSTEM PROVIDED HISTORY: Right-sided numbness TECHNOLOGIST PROVIDED HISTORY: Right-sided numbness Decision Support Exception - unselect if not a suspected or confirmed emergency medical condition->Emergency Medical Condition (MA) FINDINGS: CTA NECK: AORTIC ARCH/ARCH VESSELS: No dissection or arterial injury. No significant stenosis of the brachiocephalic or subclavian arteries. CAROTID ARTERIES: No dissection, arterial injury, or hemodynamically significant stenosis by NASCET criteria. VERTEBRAL ARTERIES: No dissection, arterial injury, or significant stenosis. SOFT TISSUES: No focal consolidation within the visualized lung apices. No acute abnormality within the visualized superior mediastinum. BONES: No acute osseous abnormality. CTA HEAD: ANTERIOR CIRCULATION: No significant stenosis of the intracranial internal carotid, anterior cerebral, or middle cerebral arteries. No aneurysm. POSTERIOR CIRCULATION: No significant stenosis of the basilar or posterior cerebral arteries. No aneurysm. OTHER: No dural venous sinus thrombosis on this non-dedicated study. BRAIN: No mass effect or midline shift. IMPRESSION: 1. No flow limiting stenosis or dissection of the cervical carotid/vertebral arteries. 2. No significant stenosis or large vessel occlusion of the [id number]. Interpreted by: Barbra Baires MD Signed by: Barbra Baires MD 12/03/24 Final result Normal [facility] CTA Head vessels and Neck ve ssels W contrast Jean-Pierre 12-03-2024 1. No flow limiting stenosis or dissection of the cervical carotid/vertebral arteries. 2. No significant stenosis or large vessel occlusion of the [id number]. [facility] RIS CONSOLIDATED EXAMINATION: CTA OF THE HEAD AND NECK WITH CONTRAST 12/03/2024 11:36 am: TECHNIQUE: CTA of the head and neck was performed with the administration of intravenous contrast. Multiplanar reformatted images are provided for review. MIP images are provided for review. Stenosis of the internal carotid arteries measured using NASCET criteria. Automated exposure control, iterative reconstruction, and/or weight based adjustment of the mA/kV was utilized to reduce the radiation dose to as low as reasonably achievable. 3D reconstructed images were performed on a separate workstation and provided for review. COMPARISON: None. HISTORY: ORDERING SYSTEM PROVIDED HISTORY: Right-sided numbness TECHNOLOGIST PROVIDED HISTORY: Right-sided numbness Decision Support Exception - unselect if not a suspected or confirmed emergency medical condition->Emergency Medical Condition (MA) FINDINGS: CTA NECK: AORTIC ARCH/ARCH VESSELS: No dissection or arterial injury. No significant stenosis of the brachiocephalic or subclavian arteries. CAROTID ARTERIES: No dissection, arterial injury, or hemodynamically significant stenosis by NASCET criteria. VERTEBRAL ARTERIES: No dissection, arterial injury, or significant stenosis. SOFT TISSUES: No focal consolidation within the visualized lung apices. No acute abnormality within the visualized superior mediastinum. BONES: No acute osseous abnormality. CTA HEAD: ANTERIOR CIRCULATION: No significant stenosis of the intracranial internal carotid, anterior cerebral, or middle cerebral arteries. No aneurysm. POSTERIOR CIRCULATION: No significant stenosis of the basilar or posterior cerebral arteries. No aneurysm. OTHER: No dural venous sinus thrombosis on this non-dedicated study. BRAIN: No mass effect or midline shift. [facility] RIS CONSOLIDATED Barbra Baires MD - 12/03/2024 EXAMINATION: CTA OF THE HEAD AND NECK WITH CONTRAST 12/03/2024 11:36 am: TECHNIQUE: CTA of the head and neck was performed with the administration of intravenous contrast. Multiplanar reformatted images are provided for review. MIP images are provided for review. Stenosis of the internal carotid arteries measured using NASCET criteria. Automated exposure control, iterative reconstruction, and/or weight based adjustment of the mA/kV was utilized to reduce the radiation dose to as low as reasonably achievable. 3D reconstructed images were performed on a separate workstation and provided for review. COMPARISON: None. HISTORY: ORDERING SYSTEM PROVIDED HISTORY: Right-sided numbness TECHNOLOGIST PROVIDED HISTORY: Right-sided numbness Decision Support Exception - unselect if not a suspected or confirmed emergency medical condition->Emergency Medical Condition (MA) FINDINGS: CTA NECK: AORTIC ARCH/ARCH VESSELS: No dissection or arterial injury. No significant stenosis of the brachiocephalic or subclavian arteries. CAROTID ARTERIES: No dissection, arterial injury, or hemodynamically significant stenosis by NASCET criteria. VERTEBRAL ARTERIES: No dissection, arterial injury, or significant stenosis. SOFT TISSUES: No focal consolidation within the visualized lung apices. No acute abnormality within the visualized superior mediastinum. BONES: No acute osseous abnormality. CTA HEAD: ANTERIOR CIRCULATION: No significant stenosis of the intracranial internal carotid, anterior cerebral, or middle cerebral arteries. No aneurysm. POSTERIOR CIRCULATION: No significant stenosis of the basilar or posterior cerebral arteries. No aneurysm. OTHER: No dural venous sinus thrombosis on this non-dedicated study. BRAIN: No mass effect or midline shift. IMPRESSION: 1. No flow limiting stenosis or dissection of the cervical carotid/vertebral arteries. 2. No significant stenosis or large vessel occlusion of the [id number]. [facility] Radiology Study observation (narrative) [facility] Comp Metabolic Profon 2024 Albumin [Mass/Vol] 4.5 g/dL Normal 3.5-5.2 [facility] Comment on above: Performed By: #### C DP, TROPI, CP, MG, BNP ####[address] [place] [id number] [facility] Director: Haley Mccall MD Albumin/Glob Ratio 1.6 Normal 1.0-2.5 [facility] Comment on above: Performed By: #### C DP, TROPI, CP, MG, BNP ####[address] [place] [address] [facility] Director: Haley Mccall MD Alkaline Phos 81 U/L Normal 35-104 [facility] Comment on above: Performed By: #### C DP, TROPI, CP, MG, BNP ####[address] [place] [id number] lab Director: Haley Mccall MD ALT [Catalytic activity/Vol] 20 U/L Normal 10-35 [facility] Comment on above: Performed By: #### C DP, TROPI, CP, MG, BNP ####[address] , [place] [id number] Lab Director: Haley Mccall MD Anion gap [Moles/Vol] 9 mmol/L Normal 9-16 [facility] Comment on above: Performed By: #### C DP, TROPI, CP, MG, BNP ####[address] , [place] [id number] Lab Director: Haley Mccall MD AST [Catalytic activity/Vol] 23 U/L Normal 10-35 [facility] Comment on above: Performed By: #### C DP, TROPI, CP, MG, BNP ####[address] , [place] [id number] lab Director: Haley Mccall MD Bilirubin [Mass/Vol] 0.4 mg/dL Normal 0.00-1.20 [facility] Comment on above: Performed By: #### C DP, TROPI, CP, MG, BNP ####[address] , [place] [id number] Lab Director: Haley Mccall MD BUN/CRE Ratio 25 High 9-20 [facility] Comment on above: Performed By: #### C DP, TROPI, CP, MG, BNP ####[address] , [place] [id number] Lab Director: Haley Mccall MD Calcium [Mass/Vol] 9.4 mg/dL Normal 8.6-10.4 [facility] Comment on above: Performed By: #### C DP, TROPI, CP, MG, BNP ####[address] [place] [address] Lab Director: Haley Mccall MD Chloride [Moles/Vol] 101 mmol/L Normal 98-107 [facility] Comment on above: Performed By: #### C DP, TROPI, CP, MG, BNP ####[address] , [place] [id number] Lab Director: Haley Mccall MD CO2 [Moles/Vol] 26 mmol/L Normal 20-31 [facility] Comment on above: Performed By: #### C DP, TROPI, CP, MG, BNP ####[address] [place] [address] lab Director: Haley Mccall MD Creatinine [Mass/Vol] 0.8 mg/dL Normal 0.50-0.90 [facility] Comment on above: Performed By: #### C DP, TROPI, CP, MG, BNP ####[address] [place] [address] lab Director: Haley Mccall MD GFR/1.73 sq M.predicted among non-blacks MDRD (S/P/Bld) [Vol rate/Area] mL/min/{1.73_m2} Normal >60 [facility] Comment on above: Result Comment: These [...] tubular secretion. Performed By: #### C DP, TROPI, CP, MG, BNP ####[address] , [place] [id number] lab Director: Haley Mccall MD Glucose [Mass/Vol] 96 mg/dL Normal 74-99 [facility] Comment on above: Performed By: #### C DP, TROPI, CP, MG, BNP ####[address] [place] [address] lab Director: Haley Mccall MD Potassium [Moles/Vol] 4.3 mmol/L Normal 3.7-5.3 [facility] Comment on above: Performed By: #### C DP, TROPI, CP, MG, BNP ####[facility] [place] , [place] [id number] lab Director: Haley Mccall MD Protein [Mass/Vol] 7.3 g/dL Normal 6.6-8.7 [facility] Comment on above: Performed By: #### C DP, TROPI, CP, MG, BNP ####[facility] [place] , [place] [id number] lab Director: Haley Mccall MD Sodium [Moles/Vol] 136 mmol/L Normal 136-145 [facility] Comment on above: Performed By: #### C DP, TROPI, CP, MG, BNP ####[address] [place] [address] lab Director: Haley Mccall MD Urea nitrogen [Mass/Vol] 20 mg/dL Normal 6-20 [facility] Comment on above: Performed By: #### C DP, TROPI, CP, MG, BNP ####[address] , [place] [id number] lab Director: Haley Mccall MD EKG 12 LeadOrdered By: Wesley Del Valle on 12-03-2024 Atrial Rate 79 BPM [facility] [employer] Phone: P [place] 61 degrees [facility] [employer] [facility] Phone: P-R Interval 142 ms [employer] [facility] Phone: Q-T Interval [address] [employer] [facility] Phone: QRS Duration 76 ms [employer] Phone: QTc Calculation (Bazett) [address] [employer] [facility] Phone: R [place] 13 degrees [employer] Phone: T [place] 42 degrees [facility] Work Phone: Ventricular Rate 79 BPM Analia Pagan [facility] Work Phone: Analia [facility] Work Phone: EKG 12 Leadon 12-03-2024 Normal sinus rhythm Low voltage QRS Borderline ECG When compared with ECG of 15-OCT-2024 15:50, No significant change was found Confirmed by JUAN DEL VALLE ([id number]) on 12/03/2024 12:29:07 PM [facility] Juan Del Valle MD - 12/03/2024 Normal sinus rhythm Low voltage QRS Borderline ECG When compared with ECG of 15-OCT-2024 15:50, No significant change was found Confirmed by JUAN DEL VALLE ([id number]) on 12/03/2024 12:29:07 PM [facility] Magnesiumon 12-03-2024 Magnesium [Mass/Vol] 2.2 mg/dL 1.6 - 2 .6 mg/dL [facility] Magnesium [Mass/Vol] 2.2 mg/dL Normal 1.6-2.6 [facility] Comment on above: Performed By: #### C DP, TROPI, CP, MG, BNP ####[facility] [place] [address] lab Director: Haley Mccall MD No Panel Informationon 12-03 [facility] TSHon 12-03-2024 TSH Qn 1.6 m[IU]/L [facility] Thyroid Stim. Horm.on 2024 Thyroid Stim. Horm. 1.60 uIU/mL Normal 0.27-4.20 [facility] Comment on above: Performed By: #### F T4 ####[address] [place] [address] Lab Director: Harvinder Meza MD#### TSH ####[facility] [place] [address] lab Director: Haley Mccall MD Thyroxine, Freeon 12-03-2024 Thyroxine, Free 1.2 ng/dL Normal 0.92-1.68 [facility] Comment on above: Performed By: #### F T4 ####[facility] [place] [address] lab Director: Harvinder Meza MD#### TSH ####[facility] [place], [place] [id number] lab Director: Haley Mccall MD Troponinon 12-03-2024 Troponin I.cardiac High sensitivity method [Mass/Vol] ng/L 0 - 14 ng/L [facility] Comment on above: High Sensitivity Tro ponin values cannot be compared with other Troponin methodologies. Troponin, High Sens <6 Normal 0-14 [facility] Comment on above: Result Comment: High Sensitivity Troponin values cannot be compared with other Troponin methodologies. Performed By: #### C DP, TROPI, CP, MG, BNP ####[facility] [place], [place] [id number] lab Director: Haley Mccall MD XR CHEST 1 VIEWon 12-03-2024 XR CHEST 1 VIEW EXAMINATION: ONE XRAY VIEW OF THE CHEST 12/03/2024 11:53 am COMPARISON: None. HISTORY: ORDERING SYSTEM PROVIDED HISTORY: right sided weakness TECHNOLOGIST PROVIDED HISTORY: right sided weakness FINDINGS: Lungs: Clear. Pleura: No effusion or pneumothorax. Cardiomediastinal silhouette: Normal contours. Bones: No acute bony findings. Soft tissues: Normal. IMPRESSION: No acute pulmonary findings. Interpreted by: Koffi Esposito DO Signed by: Koffi Esposito DO 12/03/24 Final result Normal [facility] XR Chest Single viewon 12-03 No acute pulmonary findings. [facility] RIS CONSOLIDATED EXAMINATION: ONE XRAY VIEW OF THE CHEST 12/03/2024 11:53 am COMPARISON: None. HISTORY: ORDERING SYSTEM PROVIDED HISTORY: right sided weakness TECHNOLOGIST PROVIDED HISTORY: right sided weakness FINDINGS: Lungs: Clear. Pleura: No effusion or pneumothorax. Cardiomediastinal silhouette: Normal contours. Bones: No acute bony findings. Soft tissues: Normal. [facility] CONSOLIDATED Koffi Esposito DO - 12/03/2024 EXAMINATION: ONE XRAY VIEW OF THE CHEST 12/03/2024 11:53 am COMPARISON: None. HISTORY: ORDERING SYSTEM PROVIDED HISTORY: right sided weakness TECHNOLOGIST PROVIDED HISTORY: right sided weakness FINDINGS: Lungs: Clear. Pleura: No effusion or pneumothorax. Cardiomediastinal silhouette: Normal contours. Bones: No acute bony findings. Soft tissues: Normal. IMPRESSION: No acute pulmonary findings. [facility] Radiology Study observation (narrative) [facility] XR Chest Single viewOrdered By: Koffi Esposito on 12-03-2024 [facility] Work Phone: FL INJ HIP ARTHROGRAMon FL INJ HIP ARTHROGRAM EXAMINATION: FLUOROSCOPIC GUIDED ARTHROGRAM, 11/14/2024 2:13 pm COMPARISON: None. HISTORY: ORDERING SYSTEM PROVIDED HISTORY: Labral tear of hip, degenerative TECHNOLOGIST PROVIDED HISTORY: Is the patient ?->No FLUOROSCOPY DOSE AND TYPE: Radiation Exposure Index: Kerma mGy, PROCEDURE: JIGSAW OPERATOR: Matti Cyr DO Informed consent was obtained and universal protocol was observed. Time out was performed with confirmation of patient identity, procedure to be performed and site. A skin entry site was selected with fluoroscopy. Under standard sterile condition, local anesthesia with subcutaneous 1% lidocaine was administered. A 22 gauge spinal needle was inserted into the joint under fluoroscopic guidance. 15 mL dilute gadolinium was injected. The needle was removed, spot images were obtained and a sterile bandage was placed. IMPRESSION: Successful fluoroscopic-guided right hip arthrogram. Patient was transferred to MRI for further imaging. Interpreted by: Matti Cyr DO Signed by: Matti Cyr DO 11/14/24 Final result Normal [facility] MR Hip - right W contrast IV on 11-14-2024 1. Suspected subtle intrasubstance tear in the far anterior superior right acetabular labrum. Underlying degeneration of the right acetabular labrum without paralabral cyst. 2. Trace fluid in the right greater trochanteric bursa. 3. No acute osseous abnormality. No femoral head AVN. [facility] RIS CONSOLIDATED EXAMINATION: MRI ARTHROGRAM OF THE RIGHT HIP, 11/14/2024 1:39 pm TECHNIQUE: Multiplanar multisequence MRI of the right hip was performed after the administration of intra-articular contrast. COMPARISON: Right hip arthrogram from 11/14/2024. HISTORY: ORDERING SYSTEM PROVIDED HISTORY: Labral tear of hip, degenerative TECHNOLOGIST PROVIDED HISTORY: STAT Creatinine as needed:->No What is the sedation requirement?->None 39-year-old female with probable right hip labral tear. FINDINGS: BONE MARROW: Bone marrow signal intensity within the visualized osseous structures grossly unremarkable. No right femoral head AVN. HIP JOINT: Right femoral head properly located in the right acetabulum without clear evidence for acute fracture, dislocation or femoral head flattening. Right hip articular cartilage appears preserved. LABRUM: Underlying degeneration of the right acetabular labrum without paralabral cyst. Suspected subtle intrasubstance tear in the far anterior superior right acetabular labrum on image 8, series 5. BURSAE: No significant fluid in the right iliopsoas bursa. Trace fluid in the right greater trochanteric bursa. SCIATIC NERVE: Visualized proximal right sciatic nerve demonstrates normal course, contour, and caliber on T1 weighted imaging. MUSCLES / TENDONS: Visualized muscles/tendons grossly unremarkable. INTRAPELVIC CONTENTS / SOFT TISSUES: Limited images of the intrapelvic contents demonstrate no acute abnormality. [facility] CONSOLIDATED Gm Uribe MD - 11/14/2024 EXAMINATION: MRI ARTHROGRAM OF THE RIGHT HIP, 11/14/2024 1:39 pm TECHNIQUE: Multiplanar multisequence MRI of the right hip was performed after the administration of intra-articular contrast. COMPARISON: Right hip arthrogram from 11/14/2024. HISTORY: ORDERING SYSTEM PROVIDED HISTORY: Labral tear of hip, degenerative TECHNOLOGIST PROVIDED HISTORY: STAT Creatinine as needed:->No What is the sedation requirement?->None 39-year-old female with probable right hip labral tear. FINDINGS: BONE MARROW: Bone marrow signal intensity within the visualized osseous structures grossly unremarkable. No right femoral head AVN. HIP JOINT: Right femoral head properly located in the right acetabulum without clear evidence for acute fracture, dislocation or femoral head flattening. Right hip articular cartilage appears preserved. LABRUM: Underlying degeneration of the right acetabular labrum without paralabral cyst. Suspected subtle intrasubstance tear in the far anterior superior right acetabular labrum on image 8, series 5. BURSAE: No significant fluid in the right iliopsoas bursa. Trace fluid in the right greater trochanteric bursa. SCIATIC NERVE: Visualized proximal right sciatic nerve demonstrates normal course, contour, and caliber on T1 weighted imaging. MUSCLES / TENDONS: Visualized muscles/tendons grossly unremarkable. INTRAPELVIC CONTENTS / SOFT TISSUES: Limited images of the intrapelvic contents demonstrate no acute abnormality. IMPRESSION: 1. Suspected subtle intrasubstance tear in the far anterior superior right acetabular labrum. Underlying degeneration of the right acetabular labrum without paralabral cyst. 2. Trace fluid in the right greater trochanteric bursa. 3. No acute osseous abnormality. No femoral head AVN. [facility] Radiology Study observation (narrative) [facility] MR Hip - right W contrast IV Ordered By: Gm Uribe on 11-14-2024 [facility] Work Phone: MRI HIP RIGHT W CONTRASTon 0 11-14-2024 MRI HIP RIGHT W CONTRAST EXAMINATION: MRI ARTHROGRAM OF THE RIGHT HIP, 11/14/2024 1:39 pm TECHNIQUE: Multiplanar multisequence MRI of the right hip was performed after the administration of intra-articular contrast. COMPARISON: Right hip arthrogram from 11/14/2024. HISTORY: ORDERING SYSTEM PROVIDED HISTORY: Labral tear of hip, degenerative TECHNOLOGIST PROVIDED HISTORY: STAT Creatinine as needed:->No What is the sedation requirement?->None 39-year-old female with probable right hip labral tear. FINDINGS: BONE MARROW: Bone marrow signal intensity within the visualized osseous structures grossly unremarkable. No right femoral head AVN. HIP JOINT: Right femoral head properly located in the right acetabulum without clear evidence for acute fracture, dislocation or femoral head flattening. Right hip articular cartilage appears preserved. LABRUM: Underlying degeneration of the right acetabular labrum without paralabral cyst. Suspected subtle intrasubstance tear in the far anterior superior right acetabular labrum on image 8, series 5. BURSAE: No significant fluid in the right iliopsoas bursa. Trace fluid in the right greater trochanteric bursa. SCIATIC NERVE: Visualized proximal right sciatic nerve demonstrates normal course, contour, and caliber on T1 weighted imaging. MUSCLES / TENDONS: Visualized muscles/tendons grossly unremarkable. INTRAPELVIC CONTENTS / SOFT TISSUES: Limited images of the intrapelvic contents demonstrate no acute abnormality. IMPRESSION: 1. Suspected subtle intrasubstance tear in the far anterior superior right acetabular labrum. Underlying degeneration of the right acetabular labrum without paralabral cyst. 2. Trace fluid in the right greater trochanteric bursa. 3. No acute osseous abnormality. No femoral head AVN. Interpreted by: Gm Uribe MD Signed by: Gm Uribe MD 11/14/24 Final result Normal [facility] Hip Arthrogramon 11-15-19 Successful fluoroscopic-guided right hip arthrogram. Patient was transferred to MRI for further imaging. [facility] EXAMINATION: FLUOROSCOPIC GUIDED ARTHROGRAM, 11/14/2024 2:13 pm COMPARISON: None. HISTORY: ORDERING SYSTEM PROVIDED HISTORY: Labral tear of hip, degenerative TECHNOLOGIST PROVIDED HISTORY: Is the patient ?->No FLUOROSCOPY DOSE AND TYPE: Radiation Exposure Index: Kerma mGy, PROCEDURE: JIGSAW OPERATOR: Matti Cyr DO Informed consent was obtained and universal protocol was observed. Time out was performed with confirmation of patient identity, procedure to be performed and site. A skin entry site was selected with fluoroscopy. Under standard sterile condition, local anesthesia with subcutaneous 1% lidocaine was administered. A 22 gauge spinal needle was inserted into the joint under fluoroscopic guidance. 15 mL dilute gadolinium was injected. The needle was removed, spot images were obtained and a sterile bandage was placed. [facility] Matti Cyr D O - 11/14/2024 EXAMINATION: FLUOROSCOPIC GUIDED ARTHROGRAM, 11/14/2024 2:13 pm COMPARISON: None. HISTORY: ORDERING SYSTEM PROVIDED HISTORY: Labral tear of hip, degenerative TECHNOLOGIST PROVIDED HISTORY: Is the patient ?->No FLUOROSCOPY DOSE AND TYPE: Radiation Exposure Index: Kerma mGy, PROCEDURE: JIGSAW OPERATOR: Matti Cyr DO Informed consent was obtained and universal protocol was observed. Time out was performed with confirmation of patient identity, procedure to be performed and site. A skin entry site was selected with fluoroscopy. Under standard sterile condition, local anesthesia with subcutaneous 1% lidocaine was administered. A 22 gauge spinal needle was inserted into the joint under fluoroscopic guidance. 15 mL dilute gadolinium was injected. The needle was removed, spot images were obtained and a sterile bandage was placed. IMPRESSION: Successful fluoroscopic-guided right hip arthrogram. Patient was transferred to MRI for further imaging. [facility] Radiology Study observation (narrative) [facility] RF Hip ArthrogramOrdered By: Matti Cyr on 11-14-2024 [facility] Work Phone: Ambulatory Visit Summaryon 0 10-16-2024 Ambulatory Visit Summary Ambulatory Visit Summary ASHLEE JALLOH :1985 Visit Date:10/16/2024 Ambulatory Visit Instructions Your Diagnosis Vertigo Brain fog BMI 30.0-30.9,adult Non-smoker Your Care Team Attending Physician - Lidia Jones Primary Care Physician - Lidia Jones This Is Your Medications List atorvastatin (atorvastatin 10 mg Tab) esomeprazole (Nexium 20 mg Cap-DR) naproxen (naproxen 500 mg Tab) ubrogepant (Ubrelvy 100 mg oral tablet) Procedures Performed Surgery (2022), Surgery (2022), Surgery (2020), delivery (2016), delivery, Hysterectomy, Surgery. Discharge Vitals Heart Rate (Peripheral) 70 Respiratory Rate 18 Blood Pressure 122/72 Height 161.0 cm Height 63 in Weight 79.90 kg Weight 176.149 lb BMI 30.82 Medications What How Much When Why Instructions Unchanged atorvastatin (atorvastatin 10 mg Tab) 1 Tablets By Mouth Every day Low blood pressure Hypercholesteremia Anemia Screening for thyroid disorder Non-smoker Leg pain, bilateral BMI 30.0-30.9,adult Unchanged esomeprazole (Nexium 20 mg Cap-DR) 1 Capsules By Mouth Every day Unchanged naproxen (naproxen 500 mg Tab) 1 Tablets By Mouth 2 times a day Unchanged ubrogepant (Ubrelvy 100 mg oral tablet) 1 Tablets By Mouth Once may repeat dose in 2 hours if needed Allergies Nubain (Nausea) Silicone (simethicone) obsolete (Hives) Problems Ongoing - Any problem that you are currently receiving treatment for. Abnormal rapid eye movement sleep Allergies Anemia Angiolipoma of right kidney Blisters of multiple sites BMI 29.0-29.9,adult Brain fog Class 1 obesity with body mass index (BMI) of 31.0 to 31.9 in adult Cold feet Daytime somnolence Encounter for weight management Flank pain Fluid level behind tympanic membrane of both ears Hip pain Hypercholesteremia Leg pain, bilateral Loud snoring Low back pain Low blood pressure Migraine headache Myringitis of left ear Nasal septal perforation Nonsmoker Numbness of both lower extremities Obstructive apnea Overweight (BMI 25.0-29.9) Pain in finger Poor circulation of extremity Posttraumatic stress disorder Pre-op exam PTSD (post-traumatic stress disorder) Recurrent severe major depressive disorder co-occurrent with anxiety Screening for thyroid disorder Sensory disorder Vertigo Weight gain Witnessed episode of apnea Patient Survey You may receive a survey via text or e-mail asking about your office visit. Please share your experience with us by completing your survey. We appreciate your feedback and thank you for choosing us for your care. Normal [facility] Family Medicine Office/Clini c Noteon 10-16-2024 Family Medicine Office/Clinic Note Family Medicine Office/Clinic Note HPI Staff Ashlee is a 39 year old female presenting to discuss medication Pt is concerned she started Cholesterol medication and now her blood pressure had been elevated and missed work 10/13-10/14 Pt went to ER [facility] 10/15/24 145/78 , feels like she is in a fog, chest felt tight, bilateral feet tingling/numb, room spinning and uneasy dizziness, with moving her head her vision was going white, getting cold and clammy, nauseated. States she wasn't able to get onto the stretcher her body felt like a 1,000 pounds. Words weren't coming out correctly she knew what she wanted to say. Says they checked her BS it was 82 History of Present Illness pt presents today for ER follow up. Review of Systems PHQ Score Initial Depression Screen Score: 0 SCORE Physical Exam Vitals & Measurements HR: 70(Peripheral) RR: 18 BP: 122/72 SpO2: 98% HT: 63 in HT: 161.0 cm WT: 79.90 kg WT: 176.149 lb BMI: 30.82 General: alert, no acute distress ENMT: oral mucosa moist, no pharyngeal erythema or exudate Cardiovascular: regular rate and rhythm, normal peripheral perfusion Respiratory: Lungs CTA, respirations non labored Extremities: no deformity, no trauma Neurological: oriented x 4, LOC appropriate for age, CN II-XII intact, motor strength equal & normal bilaterally, speech normal Assessment/Plan 1. Vertigo (R42: Dizziness and giddiness) pt having episodes of dizziness. Started taking statin last week and also recently started taking hormone replacement from [facility]. pt was instructed to stop using both through the weekend. if she is feeling better on Sunday start 1/2 dose of hormone replacement on Sunday every other day. if she starts feeling worse discontinue the hormones. RTC as needed 2. Brain fog (R41.89: Other symptoms and signs involving cognitive functions and awareness) pt was feeling very foggy at work 3. BMI 30.0-30.9,adult (Z68.30: Body mass index [BMI] 30.0-30.9, adult) BMI education given 4. Non-smoker (Z78.9: Other specified health status) continue not smoking Follow-up No qualifying data available Problem List/Past Medical History Ongoing Abnormal rapid eye movement sleep Allergies Anemia Angiolipoma of right kidney Blisters of multiple sites BMI 29.0-29.9,adult Brain fog Class 1 obesity with body mass index (BMI) of 31.0 to 31.9 in adult Cold feet Daytime somnolence Encounter for weight management Flank pain Fluid level behind tympanic membrane of both ears Hip pain Hypercholesteremia Leg pain, bilateral Loud snoring Low back pain Low blood pressure Migraine headache Myringitis of left ear Nasal septal perforation Nonsmoker Numbness of both lower extremities Obstructive apnea Overweight (BMI 25.0-29.9) Pain in finger Poor circulation of extremity Posttraumatic stress disorder Pre-op exam PTSD (post-traumatic stress disorder) Recurrent severe major depressive disorder co-occurrent with anxiety Screening for thyroid disorder Sensory disorder Vertigo Weight gain Witnessed episode of apnea Historical No qualifying data Procedure/Surgical History Surgery (2022), Surgery (2022), Surgery (2020), delivery (2016), delivery, Hysterectomy, Surgery. Medications atorvastatin 10 mg Tab, 10 mg= 1 tab(s), Oral, Daily, 1 refills, Not taking: due to muscle pain naproxen 500 mg Tab, 500 mg= 1 tab(s), Oral, BID Nexium 20 mg Cap-DR, 20 mg= 1 cap(s), Oral, Daily Ubrelvy 100 mg oral tablet, 100 mg= 1 tab(s), Oral, Once, 1 refills Allergies Nubain (Nausea) Silicone (simethicone) obsolete (Hives) Social History Alcohol Never., 06/30/2024 Substance Abuse Never., 06/30/2024 Tobacco Never (less than 100 in lifetime) Tobacco Use:. Never Smokeless Tobacco Use:. Cigarettes, Household tobacco concerns: No. Yes, 09/16/2024 Family History Patient was adopted Family history is negative Immunizations Vaccine Date Status Comments influenza virus vaccine, inactivated 07/07/2022 Recorded SARS-CoV-2 (COVID-19) mRNA BNT-162b2 vax 02/25/2021 Recorded 2023-05-18: TPVAL SARS-CoV-2 (COVID-19) mRNA BNT-162b2 vax 02/04/2021 Recorded 2023-05-18: TPVAL influenza virus vaccine, inactivated 07/02/2020 Recorded influenza virus vaccine, inactivated 07/14/2019 Recorded Normal [facility] Comment on above: Result Comment: Elec tronically Signed By: Lidia Jones\.br\Date and Time Signed: 10/16/24 14:42 EST Provider Letteron 10-16-2024 Provider Letter Provider Letter October 16, 2024 [address] [place] [id number] : 1985 To Whom It May Concern, Please excuse above patient from work. Date of Illness: From: 10-17-24 To: 10-17-24 May Return to Work On:10-20-24 Restrictions: _ Comments: _ Sincerely, Family Medicine [address] [address] [facility] Basic Metabolic Panelon Anion gap [Moles/Vol] 14 mmol/L 9 - 16 mmol/L [facility] Calcium [Mass/Vol] 9.0 mg/dL 8.6 - 10. 4 mg/dL [facility] Chloride [Moles/Vol] 101 mmol/L 98 - 10 7 mmol/L Bon [facility] CO2 [Moles/Vol] 21 mmol/L 20 - 31 mmol/L [facility] Creatinine [Mass/Vol] 0.7 mg/dL 0.50 - 0.90 mg/dL [facility] Maxwell Cerda - [facility] Comment on above: These results are not [...] that affects renal tubular secretion. Glucose [Mass/Vol] 88 mg/dL 74 - 99 mg/dL [facility] Interpretation and review of laboratory results Abnormal [facility] Potassium [Moles/Vol] 3.6 mmol/L Low 3.7 - 5.3 mmol/L [facility] Sodium [Moles/Vol] 136 mmol/L 136 - 145 mmol/L [facility] Urea nitrogen [Mass/Vol] 14 mg/dL 6 - 20 mg/dL [facility] Urea nitrogen/Creatinine [Mass ratio] 20 mg/mg 9 - 20 [facility] Basic Metabolic Profon 10-15 Anion gap [Moles/Vol] 14 mmol/L Normal 9-16 [facility] Comment on above: Performed By: #### T CONI ROMANO, CDP #### [facility] [address] [place] [address] Help Desk Support Specialist: Haley Mccall MD BUN/CRE Ratio 20 Normal 9-20 [facility] Comment on above: Performed By: #### T CONI ROMANO, CDP #### [facility] [address] [place] [address] Help Desk Support Specialist: Haley Mccall MD Calcium [Mass/Vol] 9.0 mg/dL Normal 8.6-10.4 [facility] Comment on above: Performed By: #### T CONI ROMANO, CDP #### [facility] [address] [place] [address] Help Desk Support Specialist: Haley Mccall MD Chloride [Moles/Vol] 101 mmol/L Normal 98-107 [facility] Comment on above: Performed By: #### T CONI ROMANO, CDP #### [facility] [address] [place] [address] Help Desk Support Specialist: Haley Mccall MD CO2 [Moles/Vol] 21 mmol/L Normal 20-31 [facility] Comment on above: Performed By: #### T CONI ROMANO, CDP #### [facility] [address] [place], [place] [id number] Help Desk Support Specialist: Haley Mccall MD Creatinine [Mass/Vol] 0.7 mg/dL Normal 0.50-0.90 [facility] Comment on above: Performed By: #### T CONI ROMANO, CDP #### [facility] [address] [place] [address] Help Desk Support Specialist: Haley Mccall MD GFR/1.73 sq M.predicted among non-blacks MDRD (S/P/Bld) [Vol rate/Area] mL/min/{1.73_m2} Normal >60 [facility] Comment on above: Result Comment: These [...] affects renal tubular secretion. Performed By: #### T CONI ROMANO, CDP #### [facility] [address] [place] [address] Help Desk Support Specialist: Haley Mccall MD Glucose [Mass/Vol] 88 mg/dL Normal 74-99 [facility] Comment on above: Performed By: #### T CONI ROMANO, CDP #### [facility] [address] [place], [place] [id number] Help Desk Support Specialist: Haley Mccall MD Potassium [Moles/Vol] 3.6 mmol/L Low 3.7-5.3 [facility] Comment on above: Performed By: #### CONI LEW, CDP #### [facility] [address] [place], [place] [id number] Help Desk Support Specialist: Haley Mccall MD Sodium [Moles/Vol] 136 mmol/L Normal 136-145 [facility] Comment on above: Performed By: #### CONI LEW, CDP #### [facility] [address] [place] [id number] Help Desk Support Specialist: Haley Mccall MD Urea nitrogen [Mass/Vol] 14 mg/dL Normal 6-20 [facility] Comment on above: Performed By: #### CONI LEW, CDP #### [address] [place], [facility] Help Desk Support Specialist: Haley Mccall MD CBC with Auto Differentialon 10-15-2024 Basophils (Bld) [#/Vol] 0.05 10*3/uL [facility] Immature granulocytes (Bld) [#/Vol] [facility] Interpretation and review of laboratory results Abnormal [facility] Lymphocytes/100 WBC (Bld) 2.54 % [facility] Monocytes/100 WBC (Bld) 0.45 % [facility] Neutrophils/100 WBC (Bld) 60 % 36 - 65 % [facility] Nucleated RBC/100 WBC (Bld) [Ratio] 0.0 % 0.0 per 100 WBC [facility] Segmented neutrophils/100 WBC (Bld) 4.97 % [facility] WBC other (Bld) [#/Vol] 8.2 [facility] CBC with Diffon 10-15-2024 Basophils/100 WBC (Bld) 1 % Normal 0-2 [facility] Comment on above: Performed By: #### CONI LEW, CDP #### [address] [place] [address] Help Desk Support Specialist: Haley Mccall MD Eosinophils (Bld) [#/Vol] 0.17 10*3/uL Normal 0.00-0.44 [facility] Comment on above: Performed By: #### CONI LEW, CDP #### [address] [place] [address] Help Desk Support Specialist: Haley Mccall MD Eosinophils/100 WBC (Bld) 2 % Normal 1-4 [facility] Comment on above: Performed By: #### CONI LEW, CDP #### [address] [place] [id number] Help Desk Support Specialist: Haley Mccall MD Erythrocyte distribution width (RBC) [Ratio] 12.0 % Normal 11.8-14.4 [facility] Comment on above: Performed By: #### CONI LEW, CDP #### [address] [place] [id number] Help Desk Support Specialist: Haley Mccall MD Hematocrit (Bld) [Volume fraction] 38.4 % Normal 36.3-47.1 [facility] Comment on above: Performed By: #### CONI LEW, CDP #### [address] [place] [id number] Help Desk Support Specialist: Haley Mccall MD Hemoglobin (Bld) [Mass/Vol] 13.4 g/dL Normal 11.9-15.1 [facility] Comment on above: Performed By: #### CONI LEW, CDP #### [address] [place] [address] Help Desk Support Specialist: Haley Mccall MD Immature granulocytes/100 WBC (Bld) 0 % Normal 0 [facility] Comment on above: Performed By: #### CONI LEW, CDP #### [address] [place] [id number] Help Desk Support Specialist: Haley Mccall MD Lymphocytes/100 WBC (Bld) 31 % Normal 24-43 [facility] Comment on above: Performed By: #### CONI LEW, CDP #### [address] [place] [id number] Help Desk Support Specialist: Haley Mccall MD MCH (RBC) [Entitic mass] 29.9 pg Normal 25.2-33.5 [facility] Comment on above: Performed By: #### CONI LEW, CDP #### [address] [place] [id number] Help Desk Support Specialist: Haley Mccall MD MCHC (RBC) [Mass/Vol] 34.9 g/dL High 28.4-34.8 [facility] Comment on above: Performed By: #### CONI LEW, CDP #### [address] [place] [address] Help Desk Support Specialist: Haley Mccall MD MCV (RBC) [Entitic vol] 85.7 fL Normal 82.6-102.9 [facility] Comment on above: Performed By: #### CONI LEW, CDP #### [address] [place] [id number] Help Desk Support Specialist: Haley Mccall MD Monocytes/100 WBC (Bld) 6 % Normal 3-12 [facility] Comment on above: Performed By: #### CONI LEW, CDP #### [address] [place] [address] Help Desk Support Specialist: Haley Mccall MD Platelet mean volume (Bld) [Entitic vol] 10.1 fL Normal 8.1-13.5 [facility] Comment on above: Performed By: #### T CONI ROMANO, CDP #### [facility] [address] [place], [place] [address] Help Desk Support Specialist: Haley Mccall MD Platelets (Bld) [#/Vol] 361 10*3/uL Normal 138-453 [facility] Comment on above: Performed By: #### T CONI ROMANO, CDP #### [facility] [address] [place], [place] [address] Help Desk Support Specialist: Haley Mccall MD RBC (Bld) [#/Vol] 4.48 10*6/uL Normal 3.95-5.11 [facility] Comment on above: Performed By: #### T CONI ROMANO, CDP #### [address] [place] [address] Help Desk Support Specialist: Haley Mccall MD Abs. Basophil 0.05 k/uL Normal 0.00-0.20 [facility] Comment on above: Performed By: #### T CONI ROMNAO, CDP #### [address] [place] [address] Help Desk Support Specialist: Haley Mccall MD Abs.Imm.Granulocyte <0.03 Normal 0.00-0.30 [facility] Comment on above: Performed By: #### T CONI ROMANO, CDP #### [address] [place], [place] [address] Help Desk Support Specialist: Haley cMcall MD Abs.Neutrophil (Seg) 4.97 k/uL Normal 1.50-8.10 [facility] Comment on above: Performed By: #### T CONI ROMANO, CDP #### [address] [place], [facility] Help Desk Support Specialist: Haley Mccall MD Lymphocytes (Bld) [#/Vol] 2.54 10*3/uL Normal 1.10-3.70 [facility] Comment on above: Performed By: #### CONI LEW, CDP #### [facility] [address] [place], [place] [id number] Help Desk Support Specialist: Haley Mccall MD Monocytes (Bld) [#/Vol] 0.45 10*3/uL Normal 0.10-1.20 [facility] Comment on above: Performed By: #### CONI LEW, CDP #### [facility] [address] [place] [address] Help Desk Support Specialist: Haley Mccall MD Neutrophil (Seg) 60 % Normal 36-[address] [facility] Comment on above: Performed By: #### CONI LEW, CDP #### [facility] [address] [place], [place] [id number] Help Desk Support Specialist: Haley Mccall MD NRBC Automated 0.0 per 100 WBC Normal 0.0 [facility] Comment on above: Performed By: #### CONI LEW, CDP #### [facility] [address] [place], [facility] Help Desk Support Specialist: Haley Mccall MD WBC (Bld) [#/Vol] 8.2 10*3/uL Normal 3.5-11.3 [facility] Comment on above: Performed By: #### CONI LEW, CDP #### [facility] [address] [place], [facility] Help Desk Support Specialist: Haley Mccall MD Microscopic Urinalysison Epithelial cells LM.HPF (Urine sed) [#/Area] 0 TO 2 [facility] RBC LM.HPF (Urine sed) [#/Area] 0 TO 2 [facility] WBC LM.HPF (Urine sed) [#/Area] 0 TO 2 [facility] Bon [facility] No Panel Informationon 10-15 [facility] Troponinon 10-15-2024 Troponin I.cardiac High sensitivity method [Mass/Vol] ng/L 0 - 14 ng/L [facility] Comment on above: High Sensitivity Tro ponin values cannot be compared with other Troponin methodologies. Troponin, High Sens <6 Normal 0-14 [facility] Comment on above: Result Comment: High Sensitivity Troponin values cannot be compared with other Troponin methodologies. Performed By: #### T ROPI, BMP, CDP #### [facility] [address] [place] [address] Help Desk Support Specialist: Haley Mccall MD UA w/Reflex Cultureon 2024 Bilirubin, SemiQt,Ur Negative Normal NEG [facility] Comment on above: Performed By: #### U AX, UMICAO ####[facility] [place] [address] Lab Director: Haley Mccall MD Blood, Urine Negative Normal NEG [facility] Comment on above: Performed By: #### U AX, UMICAO ####[facility] [place] [address] Lab Director: Haley Mccall MD Clarity (U) Clear Normal CLEAR [facility] Comment on above: Performed By: #### U AX, UMICAO ####[facility] [place] [address] Lab Director: Haley Mccall MD Color (U) Yellow Normal YEL [facility] Comment on above: Performed By: #### U AX, UMICAO ####[facility] [place] [address] Lab Director: Haley Mccall MD Glucose Ql (U) Negative Normal NEG [facility] Hospital Comment on above: Performed By: #### U AX, UMICAO ####[facility] [place] [address] Lab Director: Haley Mccall MD Ketones Ql (U) Negative Normal NEG [facility] Comment on above: Performed By: #### U AX, UMICAO ####[address] [place] [address] Lab Director: Haley Mccall MD Leukocyte esterase Test strip Ql (U) Negative Normal NEG [facility] Comment on above: Performed By: #### U AX, UMICAO ####[address] [place] [address] Lab Director: Haley Mccall MD Nitrite,Ur Negative Normal NEG [facility] Comment on above: Performed By: #### U AX, UMICAO ####[address] [place] [address] lab Director: Haley Mccall MD PH,Ur 6.5 Normal 5.0-9.0 [facility] Comment on above: Performed By: #### U AX, UMICAO ####[address] [place] [address] Lab Director: Haley Mccall MD Protein Ql (U) Negative Normal NEG [facility] Comment on above: Performed By: #### U AX, UMICAO ####[address] [place] [address] Lab Director: Haley Mccall MD Spec. [place],Ur <1.005 Low 1.010-1.020 [facility] Comment on above: Performed By: #### U AX, UMICAO ####[address] [place] [address] lab Director: Haley Mccall MD Urobilinogen,Ur Normal Normal 0.0-1.0 [facility] Comment on above: Performed By: #### U AX, UMICAO ####[address] [place] [address] lab Director: Haley Mccall MD Urinalysis with Reflex to Cu ltureon 10-15-2024 Bilirubin Ql (U) Negative [facility]IVE [facility] Clarity (U) Clear Clear [facility] Color (U) Yellow Yellow [facility] Glucose Test strip (U) [Mass/Vol] Negative NEGATIVE mg/dL [facility] Hemoglobin Auto test strip Ql (U) Negative NEGATIVE [facility] Interpretation and review of laboratory results Abnormal [facility] Ketones (U) [Mass/Vol] Negative NEGAT ALEXI mg/dL [facility] Leukocyte esterase Test strip Ql (U) Negative NEGATIVE [facility] Nitrite Ql (U) Negative NEGATIVE [place] [facility] pH (U) 6.5 [pH] 5.0 - 9.0 [facility] Protein (U) [Mass/Vol] Negative NEGAT ALEXI mg/dL [facility] Specific gravity (U) [Rel density] Low 1.010 - 1.020 [facility] Urobilinogen Qn (U) Normal 0.0 - 1. 0 EU/dL [facility] Urinalysis,Microon 5 Epithelial cells LM Ql (Urine sed) 0 TO 2 Normal 0-25 [facility] Comment on above: Performed By: #### U ROSENDO ORTEGA ####[facility] [place] [address] lab Director: Haley Mccall MD Urine RBC's 0 TO 2 Normal 0-2 [facility] Comment on above: Performed By: #### U ROSENDO ORTEGA ####[facility] [place] [address] lab Director: Haley Mccall MD Urine WBC's 0 TO 2 Normal 0-5 [facility] Comment on above: Performed By: #### U ROSENDO ORTEGA ####[facility] [place] [address] lab Director: Haley Mccall MD Provider Letteron 10-14-2024 Provider Letter Provider Letter October 14, 2024 ASHLEE JALLOH [address] [place] [address] : 1985 To Whom It May Concern, Please excuse above patient from work. Date of Illness: From: 10/13/2024 To: 10/14/2024 May Return to Work On: 10/15/2024 Sincerely, Family Medicine [id number] [place] [address] Normal [facility] T3 Freeon 10-08-2024 Free T3 [Mass/Vol] 3.0 pg/mL Invalid Interpretation Code 2.0-4.4 [facility] Comment on above: Result Comment: Perf ormed at: [facility] [address] [id number] PhD Babatunde Wagoner Performed By: #### 2 [id number] ####[facility] [address] [place] [address] CHEMISTRYOrdered By: SYSTEM SYSTEM on 10-06-2024 Cholesterol [Mass/Vol] 241 mg/dL High 120 - 200 mg/dL [facility] Cholesterol in HDL [Mass/Vol] 47 mg/dL Invalid Interpretation Code [facility] Comment on above: Result Comment: '>= 60 LOW RISK' '<= 40 HIGH RISK' Cholesterol in LDL [Mass/Vol] 142 mg/dL High <=129mg/dL [facility] Cholesterol in VLDL [Mass/Vol] 63 mg/dL High 7 - 40 mg/dL [facility] Free T4 [Mass/Vol] 0.90 ng/dL Normal 0.58 - 1. 64 ng/dL [facility] Iron [Mass/Vol] 55 ug/dL Normal 35 - 153 mcg/dL [facility] Triglyceride [Mass/Vol] 315 mg/dL High <=149mg/dL [facility] TSH Qn 3.02 m[IU]/L Normal 0.34 - 5.60 mcIU/mL [facility] Family Medicine Office/Clini c Noteon 10-06-2024 Family Medicine Office/Clinic Note Family Medicine Office/Clinic Note HPI Staff Ashlee is a 39 year old female presenting to discuss recent labs Labs she would like to discuss are from 05/2024 Pt would like to discuss starting adipex through [facility] Onset: 1-2 years worsening t having periods where her blood pressure is dropping feeling light headed dizzy and had syncopal episode 2 weeks ago at work pt didn't go to ER . blood pressures at home have been running low 100-90's/50's History of Present Illness pt presents today to discuss labs that Dr. Mccann ordered in May Review of Systems PHQ Score Initial Depression Screen Score: 4 SCORE Detailed Depression Screen Score: 14 Total Depression Screen Score: 18 Physical Exam Vitals & Measurements HR: 84(Peripheral) RR: 18 BP: 110/80 HT: 63 in HT: 161.0 cm WT: 77.95 kg WT: 171.85 lb BMI: 30.07 General: alert, no acute distress ENMT: oral mucosa moist, no pharyngeal erythema or exudate Cardiovascular: regular rate and rhythm, normal peripheral perfusion Respiratory: Lungs CTA, respirations non labored Extremities: no deformity, no trauma Neurological: oriented x 4, LOC appropriate for age, CN II-XII intact, motor strength equal & normal bilaterally, speech normal Assessment/Plan 1. Low blood pressure (I95.9: Hypotension, unspecified) pt comes in complaining of low blood pressure. at home is runs 90/50's and she feels she is symptomatic. BP is normal in office today. encouraged her to stay hydrated to keep her BP up. 2. Hypercholesteremia (E78.00: Pure hypercholesterolemia, unspecified) pt was encouraged to have her cholesterol rechecked. will check cholesterol in office. Ordered: Free T4 Iron Level Lab Specimen Collect [id number] Lipid Panel T3 Free Thyroid Stimulating Hormone 3. Anemia (D64.9: Anemia, unspecified) iron ordered in office today Ordered: Free T4 Iron Level Lab Specimen Collect [id number] Lipid Panel T3 Free Thyroid Stimulating Hormone 4. Screening for thyroid disorder (Z13.29: Encounter for screening for other suspected endocrine disorder) TSH drawn in office today Ordered: Free T4 Iron Level Lab Specimen Collect [id number] Lipid Panel T3 Free Thyroid Stimulating Hormone 5. Non-smoker (Z78.9: Other specified health status) continue not smoking Ordered: phentermine, 37.5 mg = 1 tab(s), Oral, Daily, # 30 tab(s), Refills(s) 0, Pharmacy: [facility] [id number], 161, cm, 09/16/24 15:32:00 EST, Height/Length Dosing, 77.1, kg, 09/16/24 15:32:00 EST, Weight Dosing Free T4 Iron Level Lipid Panel T3 Free Thyroid Stimulating Hormone 6. Leg pain, bilateral (M79.604: Pain in right leg) pt was encouraged to stop taking adipex by vascular doctor due to raynauds syndrome. she discussed with [facility] pharmacy and they will fax me an order for medication to help her lose weight that is not a stimulant. 7. BMI 30.0-30.9,adult (Z68.30: Body mass index [BMI] 30.0-30.9, adult) BMI education given Ordered: Free T4 Iron Level Lipid Panel T3 Free Thyroid Stimulating Hormone Follow-up No qualifying data available Problem List/Past Medical History Ongoing Abnormal rapid eye movement sleep Allergies Anemia Angiolipoma of right kidney Blisters of multiple sites BMI 29.0-29.9,adult Class 1 obesity with body mass index (BMI) of 31.0 to 31.9 in adult Cold feet Daytime somnolence Encounter for weight management Flank pain Fluid level behind tympanic membrane of both ears Hip pain Hypercholesteremia Leg pain, bilateral Loud snoring Low back pain Low blood pressure Migraine headache Myringitis of left ear Nasal septal perforation Nonsmoker Numbness of both lower extremities Obstructive apnea Overweight (BMI 25.0-29.9) Pain in finger Poor circulation of extremity Posttraumatic stress disorder Pre-op exam PTSD (post-traumatic stress disorder) Recurrent severe major depressive disorder co-occurrent with anxiety Screening for thyroid disorder Sensory disorder Weight gain Witnessed episode of apnea Historical No qualifying data Procedure/Surgical History Surgery (2022), Surgery (2022), Surgery (2020), delivery (2016), delivery, Hysterectomy, Surgery. Medications naproxen 500 mg Tab, 500 mg= 1 tab(s), Oral, BID Nexium 20 mg Cap-DR, 20 mg= 1 cap(s), Oral, Daily Ubrelvy 100 mg oral tablet, 100 mg= 1 tab(s), Oral, Once, 1 refills Allergies Nubain (Nausea) Silicone (simethicone) obsolete (Hives) Social History Alcohol Never., 06/30/2024 Substance Abuse Never., 06/30/2024 Tobacco Never (less than 100 in lifetime) Tobacco Use:. Never Smokeless Tobacco Use:. Cigarettes, Household tobacco concerns: No. Yes, 09/16/2024 Family History Patient was adopted Family history is negative Immunizations Vaccine Date Status Comments influenza virus vaccine, inactivated 07/07/2022 Recorded SARS-CoV-2 (COVID-19) mRNA BNT-162b2 vax 02/25/2021 R (more content not included)... Normal [facility] Comment on above: Result Comment: Elec tronically Signed By: Lidia Jones\.br\Date and Time Signed: 10/06/24 11:47 EST Free T4on 10-06-2024 Free T4 [Mass/Vol] 0.90 ng/dL Normal 0.58-1.64 [facility] Comment on above: Performed By: #### 2 [id number] #### [facility] [address] [place] [address] Ironon 10-06-2024 Iron [Mass/Vol] 55 microgram/dL Normal 35-153 [facility] Comment on above: Performed By: #### 2 [id number] #### [facility] [address] [place] [address] Lipid Panelon 10-06-2024 Cholesterol [Mass/Vol] 241 mg/dL High 120-200 [facility] Comment on above: Performed By: #### 2 [id number] #### [facility] [address] [place] [address] Cholesterol in HDL [Mass/Vol] 47 mg/dL Invalid Interpretation Code [facility] Comment on above: Result Comment: '>= 60 LOW RISK' '<= 40 HIGH RISK' Performed By: #### 2 [id number] #### [facility] [address] [place] [address] Cholesterol in LDL [Mass/Vol] 142 mg/dL High <=129 [facility] Comment on above: Performed By: #### 2 [id number] #### [facility] [address] [place] [address] Cholesterol in VLDL [Mass/Vol] 63 mg/dL High 7-40 [facility] Comment on above: Performed By: #### 2 [id number] #### [facility] [address] [place] [address] Triglyceride [Mass/Vol] 315 mg/dL High <=149 [facility] Comment on above: Performed By: #### 2 [id number] #### [facility] [address] [place] [address] TSHon 10-06-2024 TSH Qn 3.02 m[IU]/L Normal 0.34-5.60 [facility] Comment on above: Performed By: #### 2 [id number] #### [facility] [address] [place] [address] Family Medicine Office/Clini c Noteon 09-17-2024 Family Medicine Office/Clinic Note Family Medicine Office/Clinic Note HPI Staff Ashlee is a 39 year old female presenting with both feet are numb, feels like walking on rocks- stays cold Onset: been going on for years it has just been getting worse, she said it is radiating from her toes to top of her foot Her toes feels like they are squished together, Nerves that are not cold they sting Color is white destini... when they are extra cold they turn purple Wears multiple layers of socks or blankets Her hands get cold also but nothing like her feet History of Present Illness pt complaining of cold feet, numbness and they turn white Review of Systems PHQ Score Initial Depression Screen Score: 6 SCORE Detailed Depression Screen Score: 16 Total Depression Screen Score: 22 Physical Exam Vitals & Measurements T: 36.7 ???C(Oral) HR: 82(Peripheral) RR: 18 BP: 128/86 SpO2: 99% HT: 63 in HT: 161.0 cm WT: 77.1 kg WT: 169.976 lb BMI: 29.74 General: alert, no acute distress ENMT: oral mucosa moist, no pharyngeal erythema or exudate Cardiovascular: regular rate and rhythm, normal peripheral perfusion Respiratory: Lungs CTA, respirations non labored Extremities: no deformity, no trauma Neurological: oriented x 4, LOC appropriate for age, CN II-XII intact, motor strength equal & normal bilaterally, speech normal Assessment/Plan 1. Cold feet (R20.9: Unspecified disturbances of skin sensation) pt has appointment with collections associate tomorrow. she will discuss this with her. to see if she wants to rule out raynaud's. RTC 3 months for adipex follow up Ordered: phentermine, 37.5 mg = 1 tab(s), Oral, Daily, # 30 tab(s), Refills(s) 0, Pharmacy: [facility] [id number], 161, cm, 09/16/24 15:32:00 EST, Height/Length Dosing, 77.1, kg, 09/16/24 15:32:00 EST, Weight Dosing 2. BMI 29.0-29.9,adult (Z68.29: Body mass index [BMI] 29.0-29.9, adult) BMI education given Ordered: phentermine, 37.5 mg = 1 tab(s), Oral, Daily, # 30 tab(s), Refills(s) 0, Pharmacy: [id number], 161, cm, 09/16/24 15:32:00 EST, Height/Length Dosing, 77.1, kg, 09/16/24 15:32:00 EST, Weight Dosing 3. Exogenous obesity (E66.09: Other obesity due to excess calories) see above Ordered: phentermine, 37.5 mg = 1 tab(s), Oral, Daily, # 30 tab(s), Refills(s) 0, Pharmacy: [facility] [id number], 161, cm, 09/16/24 15:32:00 EST, Height/Length Dosing, 77.1, kg, 09/16/24 15:32:00 EST, Weight Dosing 4. Non-smoker (Z78.9: Other specified health status) continue not smoking Ordered: phentermine, 37.5 mg = 1 tab(s), Oral, Daily, BMI 29.57, # 30 tab(s), Refills(s) 0, Pharmacy: [facility] [id number], 161, cm, 08/06/24 13:59:00 EST, Height/Length Dosing, 76.6, kg, 08/06/24 13:59:00 EST, Weight Dosing phentermine, 37.5 mg = 1 tab(s), Oral, Daily, # 30 tab(s), Refills(s) 0, Pharmacy: [facility] [id number], 161, cm, 09/16/24 15:32:00 EST, Height/Length Dosing, 77.1, kg, 09/16/24 15:32:00 EST, Weight Dosing Follow-up No qualifying data available Problem List/Past Medical History Ongoing Abnormal rapid eye movement sleep Allergies Angiolipoma of right kidney Blisters of multiple sites BMI 29.0-29.9,adult Class 1 obesity with body mass index (BMI) of 31.0 to 31.9 in adult Cold feet Daytime somnolence Encounter for weight management Flank pain Fluid level behind tympanic membrane of both ears Hip pain Loud snoring Low back pain Migraine headache Myringitis of left ear Nasal septal perforation Nonsmoker Numbness of both lower extremities Obstructive apnea Overweight (BMI 25.0-29.9) Pain in finger Poor circulation of extremity Posttraumatic stress disorder Pre-op exam PTSD (post-traumatic stress disorder) Recurrent severe major depressive disorder co-occurrent with anxiety Sensory disorder Weight gain Witnessed episode of apnea Historical [...] oral tablet, 100 mg= 1 tab(s), Oral, Once, 1 refills Allergies Nubain (Nausea) Silicone (simethicone) obsolete (Hives) Social History Alcohol Never., 06/30/2024 Substance Abuse Never., 06/30/2024 Tobacco Never (less than 100 in lifetime) Tobacco Use:. Never Smokeless Tobacco Use:. Cigarettes, Household tobacco concerns: No. Yes, 09/16/2024 Family History Patient was adopted Family history is negative Immunizations Vaccine Date Status Comments influenza virus vaccine, inactivated 07/07/2022 Recorded SARS-CoV-2 (COVID-19) mRNA BNT-162b2 vax 02/25/2021 Recorded 2023-05-18: TPVAL SARS-CoV-2 (COVID-19) mRNA BNT-162b2 vax 02/04/2021 Recorded 2023-05-18: TPVAL influenza virus vaccine, inactivated 07/02/2020 Recorded influenza virus vac (more content not included)... Normal [facility] Comment on above: Result Comment: Elec tronically Signed By: Lidia Jones\.br\Date and Time Signed: 09/17/24 08:07 EST Ambulatory Visit Summaryon 0 09-16-2024 Ambulatory Visit Summary Ambulatory Visit Summary ASHLEE JALLOH :1985 Visit Date:09/16/2024 Ambulatory Visit Instructions Your Diagnosis Cold feet BMI 29.0-29.9,adult Exogenous obesity Non-smoker Your Care Team Attending Physician - Lidia Jones Primary Care Physician - Lidia Jones This Is Your Medications List esomeprazole (Nexium 20 mg Cap-DR) naproxen (naproxen 500 mg Tab) ubrogepant (Ubrelvy 100 mg oral tablet) Procedures Performed Surgery (2022), Surgery (2022), Surgery (2020), delivery (2016), delivery, Hysterectomy, Surgery. Discharge Vitals Temperature (Oral) 36.7 ???C Heart Rate (Peripheral) 82 Respiratory Rate 18 Blood Pressure 128/86 Height 161.0 cm Height 63 in Weight 77.1 kg Weight 169.976 lb BMI 29.74 Medications What How Much When Instructions Unchanged esomeprazole (Nexium 20 mg Cap-DR) 1 Capsules By Mouth Every day Unchanged naproxen (naproxen 500 mg Tab) 1 Tablets By Mouth 2 times a day Unchanged ubrogepant (Ubrelvy 100 mg oral tablet) 1 Tablets By Mouth Once may repeat dose in 2 hours if needed Allergies Nubain (Nausea) Silicone (simethicone) obsolete (Hives) Problems Ongoing - Any problem that you are currently receiving treatment for. Abnormal rapid eye movement sleep Allergies Angiolipoma of right kidney Blisters of multiple sites BMI 29.0-29.9,adult Class 1 obesity with body mass index (BMI) of 31.0 to 31.9 in adult Cold feet Daytime somnolence Encounter for weight management Flank pain Fluid level behind tympanic membrane of both ears Hip pain Loud snoring Low back pain Migraine headache Myringitis of left ear Nasal septal perforation Nonsmoker Numbness of both lower extremities Obstructive apnea Overweight (BMI 25.0-29.9) Pain in finger Poor circulation of extremity Posttraumatic stress disorder Pre-op exam PTSD (post-traumatic stress disorder) Recurrent severe major depressive disorder co-occurrent with anxiety Sensory disorder Weight gain Witnessed episode of apnea Patient Survey You may receive a survey via text or e-mail asking about your office visit. Please share your experience with us by completing your survey. We appreciate your feedback and thank you for choosing us for your care. [facility] Provider Letteron 08-20-2024 Provider Letter Provider Letter August 20, 2024 [address]OH [address] [place] [id number] : 1985 Dear Ashlee, We have been trying to reach you with no success. It is important that you return our call regarding your test results upon receiving this letter. Also, at the time of your call, please provide us with your current information. Thank you for your prompt attention to this matter. Sincerely, [place] [address] ext. [phone] [facility] Ambulatory Visit Summaryon 1 09-27-2023 Ambulatory Visit Summary Ambulatory Visit Summary ASHLEE JALLOH :1985 Visit Date:07/28/2024 Ambulatory Visit Instructions Your Diagnosis BMI 29.0-29.9,adult Overweight (BMI 25.0-29.9) Nonsmoker Your Care Team Attending Physician - Lidia Jones Primary Care Physician - Lidia Jones This Is Your Medications List esomeprazole (Nexium 20 mg Cap-DR) naproxen (naproxen 500 mg Tab) phentermine (phentermine 37.5 mg Tab) ubrogepant (Ubrelvy 100 mg oral tablet) Procedures Performed Surgery (2022), Surgery (2022), Surgery (2020), delivery (2016), delivery, Hysterectomy, Surgery. Discharge Vitals Temperature (Tympanic) 36.8 ???C Heart Rate (Peripheral) 68 Respiratory Rate 18 Blood Pressure 112/74 Height 161 cm Height 63 in Weight 76.3 kg Weight 168.213 lb BMI 29.44 Medications What How Much When Why Instructions Unchanged esomeprazole (Nexium 20 mg Cap-DR) 1 Capsules By Mouth Every day Unchanged naproxen (naproxen 500 mg Tab) 1 Tablets By Mouth 2 times a day Unchanged phentermine (phentermine 37.5 mg Tab) 1 Tablets By Mouth Every day Pre-op exam Non-smoker BMI 30.0-30.9,adult Unchanged ubrogepant (Ubrelvy 100 mg oral tablet) 1 Tablets By Mouth Once may repeat dose in 2 hours if needed Allergies Nubain (Nausea) Silicone (simethicone) obsolete (Hives) Problems Ongoing - Any problem that you are currently receiving treatment for. Abnormal rapid eye movement sleep Allergies Angiolipoma of right kidney BMI 29.0-29.9,adult Class 1 obesity with body mass index (BMI) of 31.0 to 31.9 in adult Cold feet Daytime somnolence Encounter for weight management Flank pain Fluid level behind tympanic membrane of both ears Hip pain Loud snoring Low back pain Migraine headache Myringitis of left ear Nasal septal perforation Nonsmoker Numbness of both lower extremities Obstructive apnea Overweight (BMI 25.0-29.9) Poor circulation of extremity Posttraumatic stress disorder Pre-op exam PTSD (post-traumatic stress disorder) Recurrent severe major depressive disorder co-occurrent with anxiety Sensory disorder Weight gain Witnessed episode of apnea Patient Survey You may receive a survey via text or e-mail asking about your office visit. Please share your experience with us by completing your survey. We appreciate your feedback and thank you for choosing us for your care. Normal [facility] Family Medicine Office/Clini c Noteon 07-28-2024 Family Medicine Office/Clinic Note Family Medicine Office/Clinic Note Chief Complaint 1m weight management HPI Staff Pt presents today for 1m weight management follow up. Per last encounter, if pt has not lost weight today, will NOT refill. Re-Started on phentermine 37.5mg 04/23/24 Initially started 09/25/23 Sleeping well:Yes, 6-8 hours Chest pain:No Tremors:No Headaches:No Heart fluttering:No Blurred Vision:No Starting Weight:199.5lbs (09/25/23) 173.14lb (04/23/24) Weight last visit:169.84 Weight this visit: 168lbs Pt states she has not been taking addipex for past month due to cost. Would like Lidia to look at her feet. (blisters) Would also like to discuss joint pain on hands. History of Present Illness pt presents today to discuss left index finger pain and blisters on her feet Review of Systems PHQ Score Initial Depression Screen Score: 6 SCORE Physical Exam Vitals & Measurements T: 36.8 ???C(Tympanic) HR: 68(Peripheral) RR: 18 BP: 112/74 SpO2: 94% HT: 63 in HT: 161 cm WT: 76.3 kg WT: 168.213 lb BMI: 29.44 General: alert, no acute distress ENMT: oral mucosa moist, no pharyngeal erythema or exudate Cardiovascular: regular rate and rhythm, normal peripheral perfusion Respiratory: Lungs CTA, respirations non labored Extremities: no deformity, no trauma Neurological: oriented x 4, LOC appropriate for age, CN II-XII intact, motor strength equal & normal bilaterally, speech normal healing blisters on bottom of both feet Assessment/Plan 1. Pain in finger (M79.646: Pain in unspecified finger(s)) pt presents today with pain of left index finger. it has been bothering her more recently. will order x ray. 2. Blisters of multiple sites (R23.8: Other skin changes) pt has multiple healing blisters on the bottom of her feet. she walked about 5 hours one day in a bad pair of shoes. blisters are healing well. no infection noted on exam 3. BMI 29.0-29.9,adult (Z68.29: Body mass index [BMI] 29.0-29.9, adult) BMI education given 4. Overweight (BMI 25.0-29.9) (E66.3: Overweight) see above 5. Nonsmoker (Z78.9: Other specified health status) continue not smoking Follow-up No qualifying data available Problem List/Past Medical History Ongoing Abnormal rapid eye movement sleep Allergies Angiolipoma of right kidney Blisters of multiple sites BMI 29.0-29.9,adult Class 1 obesity with body mass index (BMI) of 31.0 to 31.9 in adult Cold feet Daytime somnolence Encounter for weight management Flank pain Fluid level behind tympanic membrane of both ears Hip pain Loud snoring Low back pain Migraine headache Myringitis of left ear Nasal septal perforation Nonsmoker Numbness of both lower extremities Obstructive apnea Overweight (BMI 25.0-29.9) Pain in finger Poor circulation of extremity Posttraumatic stress disorder Pre-op exam PTSD (post-traumatic stress disorder) Recurrent severe major depressive disorder co-occurrent with anxiety Sensory disorder Weight gain Witnessed episode of apnea Historical [...] oral tablet, 100 mg= 1 tab(s), Oral, Once, 1 refills Allergies Nubain (Nausea) Silicone (simethicone) obsolete (Hives) Social History Alcohol Never., 06/30/2024 Substance Abuse Never., 06/30/2024 Tobacco Never (less than 100 in lifetime) Tobacco Use:. Never Smokeless Tobacco Use:. Cigarettes, Household tobacco concerns: No. Yes, 07/28/2024 Family History Patient was adopted Family history is negative Immunizations Vaccine Date Status Comments influenza virus vaccine, inactivated 07/07/2022 Recorded SARS-CoV-2 (COVID-19) mRNA BNT-162b2 vax 02/25/2021 Recorded 2023-05-18: TPVAL SARS-CoV-2 (COVID-19) mRNA BNT-162b2 vax 02/04/2021 Recorded 2023-05-18: TPVAL influenza virus vaccine, inactivated 07/02/2020 Recorded influenza virus vaccine, inactivated 07/14/2019 Recorded Normal [facility] Comment on above: Result Comment: Elec tronically Signed By: Lidia Jones\.br\Date and Time Signed: 07/28/24 11:05 EST Provider Letteron 07-01-2024 Provider Letter Provider Letter July 01, 20[address] [place] [id number] : 1985 To Whom It May Concern, Please excuse above patient from work. Date of Illness: 07/01/2024 May Return to Work On: 07/02/2024 Sincerely, [address] [address] [facility] Ambulatory Visit Summaryon 1 Ambulatory Visit Summary Ambulatory Visit Summary ASHLEE JALLOH :1985 Visit Date:06/30/2024 Ambulatory Visit Instructions Your Diagnosis Encounter for weight management Hip pain BMI 29.0-29.9,adult Overweight (BMI 25.0-29.9) Non-smoker Your Care Team Attending Physician - Lidia Jones Primary Care Physician - Lidia Jones This Is Your Medications List drospirenone (Slynd 4 mg oral tablet) esomeprazole (Nexium 20 mg Cap-DR) naproxen (naproxen 500 mg Tab) phentermine (phentermine 37.5 mg Tab) ubrogepant (Ubrelvy 100 mg oral tablet) Procedures Performed Surgery (2022), Surgery (2022), Surgery (2020), delivery (2016), delivery, Hysterectomy, Surgery. Discharge Vitals Temperature (Oral) 36.9 ?C Heart Rate (Peripheral) 72 Respiratory Rate 18 Blood Pressure 112/80 Height 161.0 cm Height 63 in Weight 77.2 kg Weight 169.84 lb BMI 29.78 What to do next Scheduled Follow-Up Appointments Sunday 10:00 AM EST With: Lidia Jones Where: [address] [id number]- Medications What How Much When Why Instructions New phentermine (phentermine 37.5 mg Tab) 1 Tablets By Mouth Every day Pre-op exam Non-smoker BMI 30.0-30.9,adult Pickup at [facility] [id number] Unchanged drospirenone (Slynd 4 mg oral tablet) Unchanged esomeprazole (Nexium 20 mg Cap-DR) 1 Capsules By Mouth Every day Unchanged naproxen (naproxen 500 mg Tab) 1 Tablets By Mouth 2 times a day Unchanged ubrogepant (Ubrelvy 100 mg oral tablet) 1 Tablets By Mouth Once may repeat dose in 2 hours if needed Pharmacy Information [facility] [id number]: [address] [place], [place] [id number] [phone] Allergies Nubain (Nausea) Silicone (simethicone) obsolete (Hives) Problems Ongoing - Any problem that you are currently receiving treatment for. Abnormal rapid eye movement sleep Allergies Angiolipoma of right kidney Class 1 obesity with body mass index (BMI) of 31.0 to 31.9 in adult Cold feet Daytime somnolence Encounter for weight management Flank pain Fluid level behind tympanic membrane of both ears Hip pain Loud snoring Low back pain Migraine headache Myringitis of left ear Nasal septal perforation Numbness of both lower extremities Obstructive apnea Poor circulation of extremity Posttraumatic stress disorder Pre-op exam PTSD (post-traumatic stress disorder) Recurrent severe major depressive disorder co-occurrent with anxiety Sensory disorder Weight gain Witnessed episode of apnea Patient Survey You may receive a survey via text or e-mail asking about your office visit. Please share your experience with us by completing your survey. We appreciate your feedback and thank you for choosing us for your care. Dickson Crump [facility] Family Medicine Office/Clini c Noteon 06-30-2024 Family Medicine Office/Clinic Note Family Medicine Office/Clinic Note HPI Staff Ashlee is a 39 year old female presenting with weight management Weight management Restarted Phentermine 04/23/24 Sleeping well:Yes, 6-8 hours Chest pain:No Tremors:No Headaches:No Heart fluttering:No Blurred Vision:No Starting Weight: 199.5 Weight last visit: 166 lbs Weight this visit: 169.84 lbs Needs refills on Naproxen History of Present Illness pt presents today for weight management Review of Systems PHQ Score Initial Depression Screen Score: 6 SCORE Detailed Depression Screen Score: 24 Total Depression Screen Score: 30 Physical Exam Vitals & Measurements T: 36.9 ?C(Oral) HR: 72(Peripheral) RR: 18 BP: 112/80 SpO2: 97% HT: 63 in HT: 161.0 cm WT: 77.2 kg WT: 169.84 lb BMI: 29.78 General: alert, no acute distress ENMT: oral [...] presents today for weight management. pt is up a couple pounds. went to a wedding this weekend and did not eat well. will send one more month. if no weight loss will not refill next month. 2. Hip pain (M25.559: Pain in unspecified hip) pt c/o continue hip pain and knee pain. is going to PT per insurance request before they will allow replacement. pt is on week 3 of PT and is not doing well. legs keep going numb and she has fallen a couple time. encouraged her to notify surgeon and to talk to PT on Sunday about what next steps would be since she can not tolerate PT. 3. BMI 29.0-29.9,adult (Z68.29: Body mass index [BMI] 29.0-29.9, adult) BMI education given 4. Overweight (BMI 25.0-29.9) (E66.3: Overweight) see above Non-smoker (Z78.9: Other specified health status) continue not smoking Ordered: phentermine, 37.5 mg = 1 tab(s), Oral, Daily, # 30 tab(s), Refills(s) 0, Pharmacy: [facility] [id number], 161, cm, 06/30/24 10:16:00 EDT, Height/Length Dosing, 77.2, kg, 06/30/24 10:16:00 EDT, Weight Dosing phentermine, 37.5 mg = 1 tab(s), Oral, Daily, # 30 tab(s), Refills(s) 0, Pharmacy: [facility] [id number], 161, cm, 06/04/24 9:57:00 EDT, Height/Length Dosing, 75.5, kg, 06/04/24 9:57:00 EDT, Weight Dosing Follow-up No qualifying data available Problem List/Past Medical History Ongoing Abnormal rapid eye movement sleep Allergies Angiolipoma of right kidney Class 1 obesity with body mass index (BMI) of 31.0 to 31.9 in adult Cold feet Daytime somnolence Encounter for weight management Flank pain Fluid level behind tympanic membrane of both ears Hip pain Loud snoring Low back pain Migraine headache Myringitis of left ear Nasal septal perforation Numbness of both lower extremities Obstructive apnea Poor circulation of extremity Posttraumatic stress disorder Pre-op exam PTSD (post-traumatic stress disorder) Recurrent severe major depressive disorder co-occurrent with anxiety Sensory disorder Weight gain Witnessed episode of apnea Historical No qualifying data Procedure/Surgical History Surgery (2022), Surgery (2022), Surgery (2020), delivery (2016), delivery, Hysterectomy, Surgery. Medications naproxen 500 mg Tab, 500 mg= 1 tab(s), Oral, BID Nexium 20 mg Cap-DR, 20 mg= 1 cap(s), Oral, Daily phentermine 37.5 mg Tab, 37.5 mg= 1 tab(s), Oral, Daily Slynd 4 mg oral tablet Ubrelvy 100 mg oral tablet, 100 mg= 1 tab(s), Oral, Once, 1 refills Allergies Nubain (Nausea) Silicone (simethicone) obsolete (Hives) Social History Alcohol Never., 06/30/2024 Substance Abuse Never., 06/30/2024 Tobacco Never (less than 100 in lifetime) Tobacco Use:. Never Smokeless Tobacco Use:. Cigarettes, 06/30/2024 Family History Patient was adopted Family history is negative Immunizations Vaccine Date Status Comments influenza virus vaccine, inactivated 07/07/2022 Recorded SARS-CoV-2 (COVID-19) mRNA BNT-162b2 vax 02/25/2021 Recorded 2023-05-18: TPVAL SARS-CoV-2 (COVID-19) mRNA BNT-162b2 vax 02/04/2021 Recorded 2023-05-18: TPVAL influenza virus vaccine, inactivated 07/02/2020 Recorded influenza virus vaccine, inactivated 07/14/2019 Recorded Normal [facility] Comment on above: Result Comment: Elec tronically Signed By: Lidia Jones\.br\Date and Time Signed: 06/30/24 10:35 EDT Provider Letteron 06-30-2024 Provider Letter Provider Letter June 30, 20[address] [place] [phone] : 1985 To Whom It May Concern, Please excuse above patient from work. Date of Illness: From: _ 06-30-24 To: _ 06-30-24 May Return to Work On: 07-01-24 Restrictions: _ Comments: _ Sincerely, Family [facility] [id number] [place] [address] [facility] Video Visit - Telehealtho n 06-10-2024 Video Visit - Telehealth Video Visit - Telehealth Start Time 10:00 Stop Time 11:00 Chief Complaint Continued management of problems associated to trauma and depression symptoms Subjective Client states her insurance has declined surgery, stating they want her to do PT. Client identifies a belief that this won't help for a tear and is concerned that she'll only make it through a few sessions before the pain is too great. Client states there are changes to her sleep schedule, able to sleep a little more, but still not on first shift and they held me over much of the evening. Describes situational stress including a upcoming wedding, feeling overstimulation with my skin, and anxiety in driving. Client discusses sensory triggers for something touching my skin and stress triggering it. As a result I may sit in a dark closet. I can't escape from it when I'm driving or at work. It's hit or miss on if there will be sensory overload. May prepare for overload by taking a toll road instead of a regular one. It's gotten worse over the last few years. Now is more than just touched-out. May help cope by listening to music or going in a dark closet and may run through mental scenarios to prepare herself. Sometimes gets overwhelmed with sound in addition to touch. Uses breaks to take time to cope from overstimulation, but I can't wear ear plgugs. When I was 10 they tried to get me to wear hearing aids but notes issues more congruent with auditory processing. the doc told me that my hearing is pretty good. When I'm trying to talk to someone, I can't always differentiate. Objective MENTAL STATUS EXAM: GENERAL APPEARANCE: Appears stated age BEHAVIOR: No unusual behaviors noted SPEECH: Quantity - Normal range Volume and tone - Normal range Rate - Normal range THOUGHT PROCESSES: Oriented to person, place, time, and circumstance THOUGHT CONTENT/PERCEPTIONS: Hallucinations: No hallucinations in any modality. Delusions: No delusions, paranoia. Compulsions: No obsessions, compulsions, or phobias. RISK ASSESSMENT: Suicidality: No suicidal ideation/intent or plans. Homicidality: No homicidal ideation/intent or plans. ATTITUDE TOWARD THE EXAMINER: Cooperative MOOD: Positive AFFECT: Full range, Congruent with topic., Euthymic INSIGHT/JUDGEMENT: Age appropriate COGNITIVE FUNCTIONING: Within Average Range Diagnosis/Assessment/ Treatment Plan 1. PTSD (post-traumatic stress disorder) (F43.10: Post-traumatic stress disorder, unspecified) 2. Recurrent severe major depressive disorder co-occurrent with anxiety (F33.2: Major depressive disorder, recurrent severe without psychotic features) Therapist Intervention Discuss tactics for sensory overload including planned sensory stimulation/reduction , stimulus control, and offers a referral for speech therapy assessment of possible auditory processing problems. Patient Assignment Encouraged patient to consider triggers for overload and to plan times for appropriate sensory stimulation/destressi ng Assessment and Plan Continue as before. Follow-up No qualifying data available Problem List/Past Medical History Ongoing Abnormal rapid eye movement sleep Allergies Angiolipoma of right kidney Class 1 obesity with body mass index (BMI) of 31.0 to 31.9 in adult Cold feet Daytime somnolence Encounter for weight management Flank pain Fluid level behind tympanic membrane of both ears Loud snoring Low back pain Migraine headache Myringitis of left ear Nasal septal perforation Numbness of both lower extremities Obstructive apnea Poor circulation of extremity Posttraumatic stress disorder Pre-op exam PTSD (post-traumatic stress disorder) Recurrent severe major depressive disorder co-occurrent with anxiety Sensory disorder Weight gain Witnessed episode of apnea Historical No qualifying data Procedure/Surgical History Surgery (2022), Surgery (2022), Surgery (2020), delivery (2016), delivery, Hysterectomy, Surgery. Medications naproxen 500 mg Tab, 500 mg= 1 tab(s), Oral, BID Nexium 20 mg Cap-DR, 20 mg= 1 cap(s), Oral, Daily phentermine 37.5 mg Tab, 37.5 mg= 1 tab(s), Oral, Daily Slynd 4 mg oral tablet Ubrelvy 100 mg oral tablet, 100 mg= 1 tab(s), Oral, Once, 1 refills Ubrelvy 100 mg oral tablet, 100 mg= 1 tab(s), Oral, Once Allergies Nubain (Nausea) Silicone (simethicone) obsolete (Hives) Social History Tobacco Never (less than 100 in lifetime) Tobacco Use:. Never Smokeless Tobacco Use:. Cigarettes, Household tobacco concerns: No. Yes, 06/04/2024 Family History Patient was adopted Family history is negative Normal [facility] Comment on above: Result Comment: Elec tronically Signed By: Jose [facility], Darlene Jenkins\.taniya\Date and Time Signed: 06/10/24 11:38 EDT MLR HEMOGLOBIN A1Con 024 Glucose [Mass/Vol] 111 mg/dL [facility] HbA1c (Bld) [Mass fraction] 5.5 % 4.5 - 6.2 % [facility] Comment on above: ADA RECOMMENDED LIMI T 4.0 - 6.0 ADA THERAPEUTIC TARGET < 7.0 ACTION SUGGESTED > 7.0 [facility] Ambulatory Visit Summaryon 0 06-04-2024 Ambulatory Visit Summary Ambulatory Visit Summary ASHLEE JALLOH :1985 Visit Date:06/04/2024 Ambulatory Visit Instructions Your Diagnosis Encounter for weight management BMI 30.0-30.9,adult Non-smoker Class 1 obesity with body mass index (BMI) of 31.0 to 31.9 in adult Body mass index [BMI] 31.0-31.9, adult Your Care Team Attending Physician - Lidia Jones Primary Care Physician - Lidia Jones This Is Your Medications List drospirenone (Slynd 4 mg oral tablet) esomeprazole (Nexium 20 mg Cap-DR) naproxen (naproxen 500 mg Tab) phentermine (phentermine 37.5 mg Tab) ubrogepant (Ubrelvy 100 mg oral tablet) Procedures Performed Surgery (2022), Surgery (2022), Surgery (2020), delivery (2016), delivery, Hysterectomy, Surgery. Discharge Vitals Temperature (Temporal Artery) 36.6 ?C Heart Rate (Peripheral) 70 Respiratory Rate 16 Blood Pressure 110/72 Height 161 cm Height 63 in Weight 75.5 kg Weight 166.1 lb BMI 29.13 What to do next Scheduled Follow-Up Appointments Sunday 3:00 PM EDT With: Darlene Dillard Where: [facility] 2023 11:00 AM EDT With: Darlene Dillard Where: [facility] [place] Sunday 10:00 AM EDT With: Lidia Jones Where: [place] [id number]- Medications What How Much When Why Instructions Unchanged drospirenone (Slynd 4 mg oral tablet) Unchanged esomeprazole (Nexium 20 mg Cap-DR) 1 Capsules By Mouth Every day Unchanged naproxen (naproxen 500 mg Tab) 1 Tablets By Mouth 2 times a day Unchanged phentermine (phentermine 37.5 mg Tab) 1 Tablets By Mouth Every day Pre-op exam Non-smoker BMI 30.0-30.9,adult Unchanged ubrogepant (Ubrelvy 100 mg oral tablet) 1 Tablets By Mouth Once may repeat dose in 2 hours if needed Allergies Nubain (Nausea) Silicone (simethicone) obsolete (Hives) Problems Ongoing - Any problem that you are currently receiving treatment for. Abnormal rapid eye movement sleep Allergies Angiolipoma of right kidney Class 1 obesity with body mass index (BMI) of 31.0 to 31.9 in adult Cold feet Daytime somnolence Encounter for weight management Flank pain Fluid level behind tympanic membrane of both ears Loud snoring Low back pain Migraine headache Myringitis of left ear Nasal septal perforation Numbness of both lower extremities Obstructive apnea Poor circulation of extremity Posttraumatic stress disorder Pre-op exam PTSD (post-traumatic stress disorder) Recurrent severe major depressive disorder co-occurrent with anxiety Sensory disorder Weight gain Witnessed episode of apnea Patient Survey You may receive a survey via text or e-mail asking about your office visit. Please share your experience with us by completing your survey. We appreciate your feedback and thank you for choosing us for your care. Normal Crump [facility] Family Medicine Office/Clini c Noteon 06-04-2024 Family Medicine Office/Clinic Note Family Medicine Office/Clinic Note Chief Complaint Weight Management HPI Staff 6wk weight management follow up ADRIEL: Pt cleared for ortho surgery & referred to psych for PTSD. Insurance ended up denying surgery Started Phentermine 09/25/23. Stopped Phentermine 02/20/24 due to decreased BMI. Restarted Phentermine 04/23/24. Sleeping well:Yes, 6-8 hours Chest pain:No Tremors:No Headaches:No Heart fluttering:No Blurred Vision:No Starting Weight:199.5 Weight last visit:173 Weight this visit: 166 Last Med Agreement Signed: 04/23/24 Would like to know if Lidia can take over Ubrelvy med. Does not see neuro anymore. Would also like to discuss skin sensitivity/sensory/t ouch. In the past yr, has bothered her more than normal. Occasional meltdowns with certain touches. Skin starts to feel weird. Tries to scratch it away, then body begins to itch, which initiates meltdown . History of Present Illness pt presents today for weight management Review of Systems PHQ Score Initial Depression Screen Score: 0 SCORE Physical Exam Vitals & Measurements T: 36.6 ?C(Temporal Artery) HR: 70(Peripheral) RR: 16 BP: 110/72 SpO2: 98% HT: 63 in HT: 161 cm WT: 75.5 kg WT: 166.1 lb BMI: 29.13 General: alert, no acute distress ENMT: oral [...] today for weight management. pt is down 7 pounds. pt is doing well. denies needs.needs refill on ubrevly. RTC 4 weeks 2. Sensory disorder (R20.9: Unspecified disturbances of skin sensation) pt was referred to psych due to severe sensitivity when clothing is on her arms. feels it is related to PTSD. trauma as a child 3. BMI 30.0-30.9,adult (Z68.30: Body mass index [BMI] 30.0-30.9, adult) BMI education Ordered: phentermine, 37.5 mg = 1 tab(s), Oral, Daily, # 30 tab(s), Refills(s) 0, [id number], 161, cm, 06/04/24 9:57:00 EDT, Height/Length Dosing, 75.5, kg, 06/04/24 9:57:00 EDT, Weight Dosing phentermine, 37.5 mg = 1 tab(s), Oral, Daily, # 30 tab(s), Refills(s) 0, Pharmacy: [facility] [id number], 161.6, cm, 04/23/24 9:21:00 EDT, Height/Length Dosing, 78.7, kg, 04/23/24 9:21:00 EDT, Weight Dosing 4. Non-smoker (Z78.9: Other specified health status) continue not smoking Ordered: phentermine, 37.5 mg = 1 tab(s), Oral, Daily, # 30 tab(s), Refills(s) 0, Pharmacy: [facility] [id number], 161, cm, 06/04/24 9:57:00 EDT, Height/Length Dosing, 75.5, kg, 06/04/24 9:57:00 EDT, Weight Dosing phentermine, 37.5 mg = 1 tab(s), Oral, Daily, # 30 tab(s), Refills(s) 0, [facility] [id number], 161.6, cm, 04/23/24 9:21:00 EDT, Height/Length Dosing, 78.7, kg, 04/23/24 9:21:00 EDT, Weight Dosing Orders: ubrogepant, 100 mg = 1 tab(s), Oral, Once, may repeat dose in 2 hours if needed, # 16 tab(s), Refills(s) 1, [facility] [id number], 161, cm, 06/04/24 9:57:00 EDT, Height/Length Dosing, 75.5, kg, 06/04/24 9:57:00 EDT, Weight Dosing Follow-up No qualifying data available Problem List/Past Medical History Ongoing Abnormal rapid eye movement sleep Allergies Angiolipoma of right kidney Class 1 obesity with body mass index (BMI) of 31.0 to 31.9 in adult Cold feet Daytime somnolence Encounter for weight management Flank pain Fluid level behind tympanic membrane of both ears Loud snoring Low back pain Migraine headache Myringitis of left ear Nasal septal perforation Numbness of both lower extremities Obstructive apnea Poor circulation of extremity Posttraumatic stress disorder Pre-op exam PTSD (post-traumatic stress disorder) Recurrent severe major depressive disorder co-occurrent with anxiety Sensory disorder Weight gain Witnessed episode of apnea Historical No qualifying data Procedure/Surgical History Surgery (2022), Surgery (2022), Surgery (2020), delivery (2016), delivery, Hysterectomy, Surgery. Medications naproxen 500 mg Tab, 500 mg= 1 tab(s), Oral, BID Nexium 20 mg Cap-DR, 20 mg= 1 cap(s), Oral, Daily phentermine 37.5 mg Tab, 37.5 mg= 1 tab(s), Oral, Daily Slynd 4 mg oral tablet Ubrelvy 100 mg oral tablet, 100 mg= 1 tab(s), Oral, Once, 1 refills Ubrelvy 100 mg oral tablet, 100 mg= 1 tab(s), Oral, Once Allergies Nubain (Nausea) Silicone (simethicone) obsolete (Hives) Social History Tobacco Never (less than 100 in lifetime) Tobacco Use:. Never Smokeless Tobacco Use:. Cigarettes, Household tobacco concerns: No. Yes, 06/04/2024 Family History Patient was adopted Family history is negative Immuni (more content not included)... Normal [facility] Comment on above: Result Comment: Elec tronically Signed By: Lidia Jones\.taniya\Date and Time Signed: 06/04/24 10:43 EDT C-reactive proteinon 024 CRP [Mass/Vol] 0.4 mg/dL 0.000 - 0.744 mg/dL [facility] CRP [Mass/Vol]on 05-14-2024 [facility] C REACTIVE PROTEIN 0.4 mg/dL Normal 0.000-0.744 [facility] Comment on above: Performed By: #### 8 2477-, 1988-01, 0, 69 #### [facility] ([id number]) [address] [place] [address], [address] [place] [address] #### [id number] #### [facility] ([id number]) [address] [place] [address], ESR Photometric method (Bld) [Velocity]on 05-14-2024 [facility] ESR, ERYTHROCYTE SEDIMENTATION RATE 4 mm/h Normal 0-20 [facility] Comment on above: Performed By: #### 8 2477-, 1988-01, , 69 #### [facility] ([id number]) [address] [place] [address], [place] [address] #### [id number] #### [facility] ([id number]) [address] [place] [address], Erythrocyte Sedimentation Ra te (ESR)on 05-14-2024 ESR Photometric method (Bld) [Velocity] 4 mm/h 0 - 20 mm/h [facility] Myeloperoxidase Ab Qn (S)on 05-14-2024 Myeloperoxidase Ab <0.2 Normal <1.0 [facility] Comment on above: Performed By: #### 8 2477-, 1988-01, , [id number] #### [facility] ([id number]) [address] [place] [address], [place] [address] #### [id number] #### [facility] ([id number]) [address] [place] [address], Neutrophil cytoplasmic Ab pa richy IF (S)on 05-14-2024 c-ANCA Negative Normal Negative [facility] Comment on above: Performed By: #### 8 2477-, 1988-01, 0, 69 #### [facility] ([id number]) [address] [place] [address], [address] [place] [address] #### [id number] #### [facility] ([id number]) [facility], p-ANCA Negative Normal Negative [facility] Comment on above: Result Comment: NOTE Negative for cANCA and pANCA patterns by immunofluorescence. ADDITIONAL INFORMATION This test was developed and its performance characteristics determined by [facility] in a manner consistent with CLIA requirements. This test has not been cleared or approved by the U.S. Food and Drug Administration. Test Performed by: [address] [address] Help Desk Support Specialist: Garth Patterson Ph.D.; CLIA# [id number] Performed By: #### 8 2477-1, 1988-01, 6969-0, 6968-2 #### [facility] ([id number]) [address] [place] [address], [address] [place] [address] #### [id number] #### [facility] ([id number]) [address] [place] [address], Proteinase 3 Ab Qn (S)on Proteinase 3 IgG Ab <0.2 Normal <1.0 [facility] Comment on above: Performed By: #### 8 2477-1, 1988-01, 6969-0, 6968-2 #### [facility] ([id number]) [address] [place] [address], [address] [place] [address] #### [id number] #### [facility] ([id number]) [address] [facility], XR SACROILIAC JOINTS MIN 3 V WSon 05-14-2024 XR SACROILIAC JOINTS MIN 3 VWS XR SACROILIAC JOINTS MIN 3 VWS XR SACROILIAC JOINTS MIN 3 VWS Sacroiliac pain Findings: There is no fracture or destructive lesion. Impression: * No acute findings. Unremarkable sacroiliac joints. * Consider MRI if you suspect occult process. Finalized by Viraj Corey MD on 05/14/2024 6:53 PM Normal [facility] XR Sacroiliac Joint 3 Viewso n 05-14-2024 XR SACROILIAC JOINTS MIN 3 VWS Sacroiliac pain Findings: There is no fracture or destructive lesion. Impression: * No acute findings. Unremarkable sacroiliac joints. * Consider MRI if you suspect occult process. Finalized by Viraj Corey MD on 05/14/2024 6:53 PM [facility] Viraj Corey MD - 05/14/2024 XR SACROILIAC JOINTS MIN 3 VWS Sacroiliac pain Findings: There is no fracture or destructive lesion. Impression: * No acute findings. Unremarkable sacroiliac joints. * Consider MRI if you suspect occult process. Finalized by Viraj Corey MD on 05/14/2024 6:53 PM [facility] Radiology Study observation (narrative) [facility] XR Sacroiliac Joint 3 ViewsO rdered By: Viraj Corey on 05-14-2024 [facility] Work Phone: ALL TOTAL PROTEINon 04-29-20 24 Protein [Mass/Vol] 8.1 g/dL 6.4 - 8.2 g/dL [facility] Provider Letteron 04-29-2024 Provider Letter Provider Letter [address] [place] [id number] April 29, 2024 [address]OH [address] [place] [id number] : [address] Wayne Montenegro MD, The above patient has been evaluated at your request for preoperative clearance. After assessment of available pertinent labs and diagnostic tests, I feel this patient is medically optimized for surgery. Final discretion of whether the patient is cleared for surgery remains up to the surgeon/anesthesiolog ist. Thank you, REYNA [facility] Ambulatory Visit Summaryon 0 04-23-2024 Ambulatory Visit Summary Ambulatory Visit Summary ASHLEE JALLOH :1985 Visit Date:04/23/2024 Ambulatory Visit Instructions Your Diagnosis Pre-op exam Non-smoker BMI 30.0-30.9,adult Tests Performed Chest XR 2 Views -- Results Pending -- Please visit your [...] (2016), delivery, Hysterectomy, Surgery. Discharge Vitals Temperature (Oral) 37.2 ?C Heart Rate (Peripheral) 82 Respiratory Rate 18 Blood Pressure 124/84 Height 161.6 cm Height 64 in Weight 78.7 kg Weight 173.14 lb BMI 30.14 What to do next Scheduled Follow-Up Appointments Sunday 9:00 AM EDT With: Darlene Dillard Where: [facility] Sunday 10:00 AM EDT With: Darlene Dillard Where: [facility] Sunday 10:00 AM EDT With: Lidia Jones Where: [place] [address]- Medications What How Much When Why Instructions New phentermine (phentermine 37.5 mg Tab) 1 Tablets By Mouth Every day Pre-op exam Non-smoker BMI 30.0-30.9,adult [id number] Unchanged desogestrel-ethinyl estradiol (Apri) 1 Tablets By Mouth Every day Unchanged esomeprazole (Nexium 20 mg Cap-DR) 1 Capsules By Mouth Every day Unchanged naproxen (naproxen 500 mg Tab) 1 Tablets By Mouth 2 times a day Unchanged ubrogepant (Ubrelvy 100 mg oral tablet) 1 Tablets By Mouth Once may repeat dose in 2 hours if needed Pharmacy Information [facility] [id number]: [address] [place], [place] [id number] [phone] Allergies Nubain (Nausea) Silicone (simethicone) obsolete (Hives) [...] Poor circulation of extremity Posttraumatic stress disorder Pre-op exam Recurrent severe major depressive disorder co-occurrent with anxiety Weight gain Witnessed episode of apnea Patient Survey You may receive a survey via text or e-mail asking about your office visit. Please share your experience with us by completing your survey. We appreciate your feedback and thank you for choosing us for your care. Normal [facility] Family Medicine Office/Clini c Noteon 04-23-2024 Family Medicine Office/Clinic Note Family Medicine Office/Clinic Note HPI Staff Pt is here today to review EMG on BLE done 03/26/24. Surgery clearance for hip replacement May 21 in [place] History of Present Illness pt presents today for pre surgical clearance. is also having sensory issues that need to be addressed Review of Systems PHQ Score Initial Depression Screen Score: 0 SCORE Physical Exam Vitals & Measurements T: 37.2 ?C(Oral) HR: 82(Peripheral) RR: 18 BP: 124/84 SpO2: 99% HT: 64 in HT: 161.6 cm WT: 78.7 kg WT: 173.14 lb BMI: 30.14 General: alert, no acute distress Skin: warm, dry Head: no trauma, normocephalic Neck: Trachea midline, thyroid not enlarged Eye: normal conjunctiva, sclera clear ENMT: oral mucosa moist, yes Cardiovascular: regular rate and rhythm, normal Respiratory: respirations non labored Chest wall: no deformity. Gastrointestinal: soft, non distended, no tenderness Back: No tenderness Extremities: no edema, no wound Neurological: awake, alert, oriented, speech normal Psychiatric: cooperative, affect appropriate for age Assessment/Plan 1. Pre-op exam (Z01.818: Encounter for other preprocedural examination) pt presents today for preop exam. chest xray, ekg and lab orders provided. once provider receives and reviews all results we will fax a letter to orthopedic one. physical exam is WNL. RTC 6 weeks Ordered: phentermine, 37.5 mg = 1 tab(s), Oral, Daily, # 30 tab(s), Refills(s) 0, Pharmacy: [facility] [id number], 161.6, cm, 04/23/24 9:21:00 EDT, Height/Length Dosing, 78.7, kg, 04/23/24 9:21:00 EDT, Weight Dosing CBC w/ Auto Diff Comprehensive Metabolic Panel ECG 12 Lead Adult Est Preventative 18 to 39 years [address] HgbA1c PT & PTT UA with Cult Rflx XR Chest 2 Views 2. Sensory disorder (R20.9: Unspecified disturbances of skin sensation) patient has a pretty significant mental health history. was moved around different fosters homes as a child and was adopted at age 4. since she can remember, she has not been able to have any clothing covering her arms. if she has her arms covered she will start to itch, then gets burning then goes into a full blown panic attack. will send referral to Janie Ferris for further evaluation. Ordered: Est Preventative 18 to 39 years [address] [facility] External Ambulatory Referral 3. PTSD (post-traumatic stress disorder) (F43.10: Post-traumatic stress disorder, unspecified) pt has never been screened or diagnosed and has never been to psych to discuss her childhood. Ordered: Est Preventative 18 to 39 years [address] [facility] External Ambulatory Referral 4. Non-smoker (Z78.9: Other specified health status) continue not smoking Ordered: phentermine, 37.5 mg = 1 tab(s), Oral, Daily, # 30 tab(s), Refills(s) 0, Pharmacy: [facility] [id number], 161.6, cm, 04/23/24 9:21:00 EDT, Height/Length Dosing, 78.7, kg, 04/23/24 9:21:00 EDT, Weight Dosing phentermine, 37.5 mg = 1 tab(s), Oral, Daily, 30 day supply bmi 31.13, # 30 tab(s), Refills(s) 0, Pharmacy: [facility] [id number], 161.6, cm, 01/22/24 9:54:00 EDT, Height/Length Dosing, 76.3, kg, 01/22/24 9:54:00 EDT, Weight Dosing CBC w/ Auto Diff Comprehensive Metabolic Panel ECG 12 Lead Adult Est Preventative 18 to 39 years [address] [facility] External Ambulatory Referral HgbA1c PT & PTT UA with Cult Rflx XR Chest 2 Views 5. BMI 30.0-30.9,adult (Z68.30: Body mass index [BMI] 30.0-30.9, adult) restarted adipex. medication agreement signed. RTC 6 weeks. pt is having surgery 05/21 so she may need to reschedule appointment Ordered: phentermine, 37.5 mg = 1 tab(s), Oral, Daily, # 30 tab(s), Refills(s) 0, Pharmacy: [facility] [id number], 161.6, cm, 04/23/24 9:21:00 EDT, Height/Length Dosing, 78.7, kg, 04/23/24 9:21:00 EDT, Weight Dosing CBC w/ Auto Diff Comprehensive Metabolic Panel ECG 12 Lead Adult Est Preventative 18 to 39 years [address] [facility] External Ambulatory Referral HgbA1c PT & PTT UA with Cult Rflx XR Chest 2 Views Follow-up No qualifying data available Problem List/Past [...] Poor circulation of extremity Posttraumatic stress disorder Pre-op exam PTSD (post-traumatic stress disorder) Recurrent severe major depressive disorder co-occurrent with anxiety Sensory disorder Weight gain Witnessed episode of apnea Historical No qualifying data Procedure/Surgical History Surgery (2022), Surgery (2022), Surgery (2020), delivery (2016), delivery, Hysterectomy, Surgery. Medications Apri, 1 tab(s), Oral, Daily naproxen 500 mg Tab, 500 mg= 1 tab(s), Oral, BID Nexium 20 mg Cap-DR (more content not included)... Normal [facility] Comment on above: Result Comment: Elec tronically Signed By: Lidia Jones\.br\Date and Time Signed: 04/23/24 10:06 EDT Ambulatory Visit Summaryon 0 03-18-2024 Ambulatory Visit Summary Ambulatory Visit Summary ASHLEE JALLOH :1985 Visit Date:03/18/2024 Ambulatory Visit Instructions [...] Neurology Clinic Sunday 10:00 AM EDT With: Darlene Dillard Where: [facility] Sunday 10:00 AM EDT With: Darlene Dillard Where: [facility] Medications What How Much When Why Instructions [...] for choosing us for your care. Normal [facility] RAD - CT Reporton 03-05-2024 RAD - CT Report [id number] .00TIFF Normal [facility] MR HIP RIGHT WO IV CONTRASTo [...] superimposed on mild tendinosis. ELECTRONICALLY SIGNED BY: Sean Johnson DO Normal Not Available Ambulatory Visit Summaryon 0 02-20-2024 Ambulatory Visit Summary ASHLEE JALLOH :1985 Visit Date:02/20/2024 Ambulatory Visit Instructions [...] Follow-Up Appointments Sunday 10:00 AM EDT With: [facility]: [facility] Medications What How Much [...] for choosing us for your care. Normal [facility] Family Medicine Office/Clini c Noteon 02-20-2024 Family Medicine Office/Clinic Note HPI Staff Ashlee is a 39 year old female presenting [...] symptoms, # 30 cap(s), Refills(s) 1, Pharmacy: [facility] [id number], 161.6, cm, 12/20/23 10:24:00 EDT, Height/Length Dosing, 77, kg, 12/20/23 10:24:00 EDT, Weight Dosing montelukast, 10 mg = 1 tab(s), Oral, qPM, # 30 tab(s), Refills(s) 0, Pharmacy: [facility] [id number], 161.6, cm, 12/20/23 10:24:00 EDT, Height/Length Dosing, [...] vaccine, inacti (more content not included)... Normal [facility] Comment on above: Result Comment: Elec tronically Signed By: Lidia Jones\.taniya\Date and Time Signed: 02/20/24 09:50 EDT Ambulatory Visit Summaryon 0 02-19-2024 Ambulatory Visit Summary ASHLEE JALLOH :1985 Visit Date:02/19/2024 Ambulatory Visit Instructions [...] 8:20 AM EDT With: Lidia Jones Where: [facility] Ambulatory Visit Summaryon 0 02-07-2024 Ambulatory Visit Summary ASHLEE JALLOH :1985 Visit Date:02/07/2024 Ambulatory Visit Instructions Your Diagnosis Recurrent severe major depressive disorder co-occurrent with anxiety Posttraumatic stress disorder Your Care Team Attending Physician - Darlene Dillard Primary Care Physician - Lidia Jones This Is Your Medications List Mis Prescription (ESTRADIOL 1 MG TABLET) cetirizine (cetirizine [...] 8:00 AM EDT With: Darlene Dillard Where: [facility] Sunday 8:20 AM EDT With: Lidia Jones [facility] Sleep Studieson 02-05-2024 Sleep Studies [id number]. 00TIFF [facility] Ambulatory Visit Summaryon 0 01-22-2024 Ambulatory Visit Summary ASHLEE JALLOH :1985 Visit Date:01/22/2024 Ambulatory Visit Instructions [...] 9:00 AM EDT With: Darlene Dillard Where: [facility] Sunday 8:20 AM EDT With: Lidia Jones Where: [facility] Family Medicine Office/Clini c Noteon 01-22-2024 Family Medicine Office/Clinic Note HPI Staff Ashlee is a 39 year old female presenting [...] 31.13, # 30 tab(s), Refills(s) 0, Pharmacy: [facility] [id number], 161.6, cm, 01/22/24 9:54:00 EDT, Height/Length Dosing, 76.3, kg, 01/22/24 9:54:00 EDT, Weight Dosing phentermine, 37.5 mg = 1 tab(s), Oral, Daily, 30 day supply bmi 31.13, # 30 tab(s), Refills(s) 0, Pharmacy: [facility] [id number], 161.6, cm, 12/20/23 10:24:00 EDT, Height/Length Dosing, 77, kg, 12/20/23 10:24:00 EDT, Weight Dosing ropinirole, 1 mg = 1 tab(s), Oral, Bedtime, 1 to 3 hours before bedtime, # 30 tab(s), Refills(s) 2, Pharmacy: [facility] [id number], 161.6, cm, 05/18/23 10:58:00 EDT, Height/Length Dosing, [...] virus vaccine, inactivated 07/14/2019 Recorded Normal [facility] Comment on above: Result Comment: Elec tronically Signed By: Toño RICARDO, Lidia Swenson\.br\Date and Time Signed: 01/22/24 10:56 EDT Interdisciplinary Note - Soc ial Workeron 01-17-2024 Interdisciplinary Note - Brand Advisor Consult for positive depression screen received. SW made tc to patient to discuss this. She states that these issues have been ongoing since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 [facility] RBC (Bld) [#/Vol] 4.30 10*6/uL 3.95 - 5.1 1 m/uL [facility] Segmented neutrophils/100 WBC (Bld) 64 % 36 - 65 % [facility] Segs Absolute 5.72 [facility] WBC (Bld) [#/Vol] 9.1 10*3/uL [facility] Hemoglobin A1Con 08-17-2022 Glucose [Mass/Vol] 126 mg/dL [facility] Comment on above: The ADA and AACC rec ommend providing the estimated average glucose result to permit better patient understanding of their HBA1c result. HbA1c (Bld) [Mass fraction] 6.0 % 4.0 - 6.0 % [facility] LDL Cholesterol, Directon Cholesterol in LDL [Mass/Vol] 126 mg/dL High NINF - 100 mg/dL [facility] Interpretation and review of laboratory results Abnormal [facility] Lipid Panelon 08-17-2022 Cholesterol [Mass/Vol] 245 mg/dL High NINF - 200 mg/dL [facility] Comment on above: Cholesterol Guidelines: <200 Desirable 200-240 Borderline >240 Undesirable Cholesterol in HDL [Mass/Vol] 32 mg/dL Low 40 - PINF mg/dL [facility] Comment on above: HDL Guidelines: <40 Undesirable 40-59 Borderline >59 Desirable Cholesterol.total/Chol esterol in HDL [Mass ratio] 7.7 {ratio} High NINF - 5 [facility] Interpretation and review of laboratory results Abnormal [facility] LDL Cholesterol 0 - 130 mg/dL [facility] Comment on above: Calculation not nicole d for Triglyceride value greater than 400 mg/dL. Direct LDL reflexed LDL Guidelines: <100 Desirable 100-129 Near to/above Desirable 130-159 Borderline >159 Undesirable Direct (measured) LDL and calculated LDL are not interchangeable tests. Triglyceride [Mass/Vol] 784 mg/dL High NINF - 150 mg/dL [facility] [employer] Comment on above: Triglyceride Guidelines: <150 Desirable 150-199 Borderline 200-499 High >499 Very high Based on AHA Guidelines for fasting triglyceride, June 2012. [facility] [employer] Microalbumin, Uron 2 Albumin/Creatinine DL <= 20 mg/L (24H U) [Mass ratio] mg/L NINF - 21 mg/L [facility] Albumin/Creatinine DL <= 20 mg/L (U) [Ratio] Can not be calculated [facility] Creatinine [Mass/Vol] 76.3 mg/dL 28.0 - 217.0 mg/dL [facility] [employer] No Panel Informationon 08-17 [facility] Otolaryngology Office/Clinic Noteon 08-09-2022 Otolaryngology Office/Clinic Note Chief Complaint Pt states Here for Ct results/ear check History of Present Illness History of Present Illness HPI: Ashlee is here today to review CT results/check [...] No Urinary Incontinence: No Vaginal discharge: No Hematologic/Lymphatic Musculoskeletal Neurological Psychiatric Respiratory Apnea: No Cough: No Hemoptysis: No Other Respiratory: No Shortness_of_breath: No Snoring: No Sputum production: No Wheezing: No Skin Physical Exam Vitals & Measurements T: 37.0 ?C (Temporal Artery) WT: 89.9 kg WT: 89.9 kg (Dosing) Additional Vitals No qualifying data available. Overall:[Communicatio n mode is clear, normal] [Appearance- no acute [...] conductive hearing loss. CT was done of [place] and this was personally reviewed to ensure [...] reviewed the patient?s medication list for medication interactions/contrain dications and/or for upcoming procedures: [yes or no] [...] caps, Oral, (more content not included)... Normal [facility] Audiology Office/Clinic Note on 07-20-2022 Audiology Office/Clinic Note Ashlee was seen to warp picker custom swimplugs after remake. Her initial set was leaking. When she was seen on 07/12/22 to discuss the remake, she had an active ear infection and a new earmold impression was not able to be taken for the remake. [employer] Machine Operator was informed where to build up the [...] by Yulia Hi 07/21/22 09:32 EST [address] [facility] Audiology Office/Clinic Note on 07-12-2022 Audiology Office/Clinic Note Ashlee was seen to discuss remaking her right swim mold. She stated she has noticed some leakage occurring in the siri. She currently has an ear infection in the right ear and therefore a new ear mold impression was not taken. Instructions to build-up the areas of concern on the remade swim plug will be sent to the audio visual tech. Due to the current ear infection and inability to make a new impression, the audio visual tech has agreed to extend the remake warranty. Ashlee will be called once the new swim mold is in for dispense and to check fit. n/c Electronically signed by LinYulia Navarro 07/12/22 13:23 EDT [address] [facility] US PELVIS AND TRANSVAGon US PELVIS AND [...] CINDY PINK Date: 2022-07-06 17:16 Normal [facility] Otolaryngology Office/Clinic Noteon 07-04-2022 Otolaryngology Office/Clinic Note [...] Tinnitus: No Vision Changes: No Gastrointestinal Genitourinary Hematologic/Lymphatic Musculoskeletal Neurological Psychiatric Respiratory Apnea: No Cough: No Hemoptysis: No Other Respiratory: No Shortness_of_breath: No Snoring: No Sputum production: No Wheezing: No Skin Physical Exam Vitals & Measurements T: 36.6 ?C (Temporal Artery) HT: 163 cm WT: 87.4 kg WT: 87.4 kg (Dosing) BMI: 32.9 Additional Vitals No qualifying data available. Overall:[Communicatio n mode is clear, normal] [Appearance- no acute [...] if further surgical intervention is warranted. Ordered: [id number] Air bone pure tone audiometry POC CT IAC w/o Contrast Tympanometry POC Orders: predniSONE, 3 tabs, Oral, Daily, then 2 qam for 4 days then 1 qam for 3 days, X 3 days, # 20 tabs, 0 Refill(s), 07/07/22 10:51:00 EDT, Pharmacy: [facility] [id number] 2. Perforated right tympanic membrane on examination [...] reviewed the patient?s medication list for medication interactions/contrain dications and/or for upcoming procedures: [yes or no] [...] TUBAL LIGATION section (more content not included)... [facility] Otolaryngology Office/Clinic Note Chief Complaint Chief Complaint 'I am in for recurrent ear infections.' Physical Exam Vitals & Measurements T: 36.6 ?C (Temporal Artery) HT: 163 cm WT: 87.4 kg WT: 87.4 kg (Dosing) BMI: 32.9 Additional Vitals No qualifying data available. Assessment/Plan 1. Otorrhea of right ear Ordered: [id number] Air bone pure tone audiometry POC Tympanometry POC Medical Decision Making Chronic conditions NOT treated during this visit that affected my overall medical decision making: [] Treatment plans discussed but not opted for at this time: [] Prescribed medication that requires intensive monitoring for toxicity: [] I have reviewed the patient?s medication list for medication interactions/contrain dications and/or for upcoming procedures: [yes or no] [...] Never Smokeless tobacco use:. Missy Sims PA-C [facility] Comment on above: Order Comment: jaspreet gale C-Reactive Proteinon 022 CRP [Mass/Vol] 3.1 mg/L 0 - 5 mg/L [facility] Rheumatoid Factoron 06-21-20 22 Rheumatoid Factor <10 NINF [facility] Sedimentation Rateon 022 Sed Rate 9 [facility] PAP ACOG PANEL 2: 30 to 65on 04-04-2022 . . Normal [facility] Comment on above: Result Comment: Perf ormed at: WB Performed By: #### [id number] #### [facility] [address] [address] [address] Cesar Tolbert Age Gdln ACOG Testing 30-65 Normal [facility] Comment on above: Performed By: #### [id number] #### [facility] [address] [address] [address] Cesar Tolbert DIAGNOSIS: Comment Normal [facility] Comment on above: Result Comment: NEGA TIVE FOR INTRAEPITHELIAL LESION OR MALIGNANCY. THIS SPECIMEN WAS RESCREENED PART OF OUR [employer] CONSULTANT PROGRAM. Performed at: WB Performed By: #### [id number] #### [facility] [address] [address] [address] Cesar Tolbert HPV Aptima Positive Abnormal Negative [facility] Comment on above: Result Comment: This nucleic acid amplification test detects fourteen high-risk HPV types (16,18,31,33,35,39,45,51,52,56,58,59,66,68) without differentiation. Performed at: =G Performed By: #### [id number] #### [facility] [address] [address] [address] Cesar Tolbert HPV Genotype 16 Negative Normal Negative [facility] Comment on above: Result Comment: Perf ormed at: =G Performed By: #### [id number] #### [facility] [address] [address] [address] Cesar Tolbert HPV Genotype 18,45 Negative Normal Negative [facility] Comment on above: Result Comment: Perf ormed at: =G Performed By: #### [id number] #### [facility] [address] [place] [address] Dr. Cesar Tolbert Methodology: Comment [facility] Comment on above: Result Comment: This liquid based ThinPrep(R) pap test was screened with the use of an image guided system. Performed at: WB Performed By: #### [id number] #### [facility] [address] [place] [address] Dr. Cesar Tolbert Note: Comment Normal [facility] Comment on above: Result Comment: The Pap smear is a screening test designed to aid in the detection of premalignant and malignant conditions of the uterine cervix. It is not a diagnostic procedure and should not be used as the sole means of detecting cervical cancer. Both false-positive and false-negative reports do occur. . Performed at: WB Performed By: #### [id number] #### [facility] [address] [place] [address] Dr. Cesar Tolbert Performed by: Comment Normal [facility] Comment on above: Result Comment: Rom Collier, Architect Marine (ASCP) Performed at: WB Performed By: #### [id number] #### [facility] [address] [place] [address] Dr. Cesar Tolbert QC reviewed by: Comment Normal [facility] Comment on above: Result Comment: Halle Bazan, Architect Marine (ASCP) Performed at: WB Performed By: #### [id number] #### [facility] [address] [place] [address] Dr. Cesar Tolbert Specimen adequacy: Comment Normal [facility] Comment on above: Result Comment: Sati sfactory for evaluation. No endocervical component is identified. Performed at: WB Performed By: #### [id number] #### [facility] [address] [place] [address] Dr. Cesar Tolbert APTTon 10-10-2021 aPTT Coag (Bld) [Time] 27.4 s [facility] Comment on above: IV Heparin Therapy Range: 62.0-94.0 [facility] Basic Metabolic Panelon - Anion gap [Moles/Vol] 13 mmol/L 9 - 17 mmol/L [facility] Calcium [Mass/Vol] 9.3 mg/dL 8.6 - 10. 4 mg/dL [facility] Chloride [Moles/Vol] 100 mmol/L 98 - 10 7 mmol/L [facility] CO2 [Moles/Vol] 24 mmol/L 20 - 31 mmol/L [facility] Creatinine [Mass/Vol] 0.77 mg/dL 0.50 - 0.90 mg/dL [facility] GFR >60 >60 mL/min [facility] GFR Non- >60 >60 mL/min [facility] Glucose [Mass/Vol] 121 mg/dL High 70 - 99 mg/dL [facility] Interpretation and review of laboratory results Abnormal [facility] Potassium [Moles/Vol] 4.1 mmol/L 3.7 - 5.3 mmol/L [facility] Sodium [Moles/Vol] 137 mmol/L 135 - 144 mmol/L [facility] Urea nitrogen (BldV) [Mass/Vol] 11 mg/dL 6 - 20 mg/dL [facility] Urea nitrogen/Creatinine (Bld) [Mass ratio] [address] [facility] CBCon 10-10-2021 Hematocrit (Bld) [Volume fraction] 39.0 % 36.3 - 47.1 % [facility] Hemoglobin.gastrointes tinal spec 1 Ql (Stl) 12.4 g/dL 11.9 - 15.1 g/dL [facility] MCH (RBC) [Entitic mass] 27.4 pg 25.2 - 33.5 pg [facility] MCHC (RBC) [Mass/Vol] 31.8 g/dL 28.4 - 34.8 g/dL [facility] MCV (RBC) [Entitic vol] 86.3 fL 82.6 - 102.9 fL [facility] NRBC Automated 0.0 0.0 per 100 WBC [facility] Platelet distribution width (Bld) [Ratio] 12.8 % 11.8 - 14.4 % [facility] Platelet mean volume (Bld) [Entitic vol] 9.8 fL 8.1 - 13.5 fL [facility] Platelets (Bld) [#/Vol] 290 10*3/uL [facility] RBC (Bld) [#/Vol] 4.52 10*6/uL 3.95 - 5.1 1 m/uL [facility] WBC (Bld) [#/Vol] 7.8 10*3/uL [facility] Laboratory - Chemistry and C hemistry - challengeon 10-10-2021 GFR/1.73 sq M.predicted MDRD (S/P/Bld) [Vol rate/Area] [facility] Comment on above: Average GFR for 30-3 9 years old: 107 mL/min/1.73sq m Chronic Kidney Disease: <60 mL/min/1.73sq m Kidney failure: <15 mL/min/1.73sq m eGFR calculated using average adult body mass. Additional eGFR calculator available at: http://www.Auxogyn/multiple_crcl_2012.htm Stage 1: Some kidney damage normal GFR Stage 2: Mild kidney damage GFR 60-89 Stage 3: Moderate kidney damage GFR 30-59 Stage 4: Severe kidney damage GFR 15-29 Stage 5: Severe kidney damage GFR <15 ESRD - chronic treatment by dialysis or transplant Protime-INRon 10-10-2021 INR Coag (Bld) [Relative time] 1.1 {INR} [facility] Comment on above: Non-therapeutic Range: INR = 0.9-1.2 Therapeutic Range: Moderate Anticoagulant Intensity: INR = 2.0-3.0 High Anticoagulant Intensity: INR = 2.5-3.5 PT Coag (PPP) [Time] 13.9 s [facility] CBC Auto DifferentialOrdered By: Tiffany Tejeda on 05-31-2021 Absolute Eos # 0.17 [facility] Work Phone: Absolute Immature Granulocyte <0.03 [facility] Work Phone: Absolute Lymph # 2.[address] [facility] Work Phone: Absolute [facility] # 0.51 [facility] Work Phone: Basophils (Bld) [#/Vol] 0.03 10*3/uL [facility] Work Phone: Basophils/100 WBC (Bld) 0 % 0 - 2 % [facility] Work Phone: Differential Type NOT REPORTED [employer] Phone: Eosinophils/100 WBC (Bld) 2 % 1 - 4 % [employer] Phone: Hematocrit (Bld) [Volume fraction] 35.2 % Low 36.3 - 47.1 % [employer] Phone: Hemoglobin.gastrointes tinal spec 1 Ql (Stl) 11.0 g/dL Low 11.9 - 15.1 g/dL [employer] Phone: Immature granulocytes/100 WBC (Bld) 0 % 0 [employer] Phone: Interpretation and review of laboratory results Abnormal [employer] Phone: Lymphocytes/100 WBC (Bld) 31 % 24 - 43 % [employer] Phone: MCH (RBC) [Entitic mass] 27.6 pg 25.2 - 33.5 pg [employer] Phone: MCHC (RBC) [Mass/Vol] 31.3 g/dL 28.4 - 34.8 g/dL [employer] Phone: MCV (RBC) [Entitic vol] 88.2 fL 82.6 - 102.9 fL [employer] Phone: Monocytes/100 WBC (Bld) 6 % 3 - 12 % [employer] Phone: NRBC Automated 0.0 0.0 per 100 WBC [employer] Phone: Platelet distribution width (Bld) [Ratio] 13.2 % 11.8 - 14.4 % [employer] Phone: Platelet Estimate NOT REPORTED [employer] Phone: Platelet mean volume (Bld) [Entitic vol] 10.1 fL 8.1 - 13.5 fL [employer] Phone: Platelets (Bld) [#/Vol] 290 10*3/uL [employer] Phone: RBC (Bld) [#/Vol] 3.99 10*6/uL 3.95 - 5.1 1 m/uL [employer] Phone: RBC (Bld) [#/Vol] NOT REPORTED [employer] Phone: Segmented neutrophils/100 WBC (Bld) 61 % 36 - 65 % [employer] Work Phone: Segs [employer] 4[employer] Work Phone: WBC (Bld) [#/Vol] 8.2 10*3/uL [employer] Phone: WBC (Bld) [#/Vol] NOT REPORTED [employer] Phone: [employer] Phone: Comprehensive Metabolic Pane lOrdered By: Tiffany Tejeda on 05-31-2021 Albumin [Mass/Vol] 4.6 g/dL 3.5 - 5.2 g/dL [employer] Phone: Albumin/Globulin [Mass ratio] 1.8 {ratio} [employer] Phone: ALP (Bld) [Catalytic activity/Vol] 89 U/L 35 - 104 U/L [employer] Phone: ALT [Catalytic activity/Vol] 21 U/L 5 - 33 U/L [employer] Phone: Anion gap [Moles/Vol] 11 mmol/L 9 - 17 mmol/L [employer] Phone: AST [Catalytic activity/Vol] 22 U/L <32 [employer] Phone: Bilirubin [Mass/Vol] 0.44 mg/dL 0.3 - 1 .2 mg/dL [employer] Phone: Calcium [Mass/Vol] 9.6 mg/dL 8.6 - 10. 4 mg/dL [employer] Phone: Chloride [Moles/Vol] 101 mmol/L 98 - 10 7 mmol/L [employer] Phone: CO2 [Moles/Vol] 25 mmol/L 20 - 31 mmol/L [employer] Phone: Creatinine [Mass/Vol] 0.69 mg/dL 0.50 - 0.90 mg/dL [employer] Phone: Free PSA/Total PSA [Mass fraction] 7.2 g/dL 6.4 - 8.3 g/dL [employer] Phone: GFR >60 >60 mL/min [employer] Phone: GFR Non- >60 >60 mL/min [employer] Phone: Glucose [Mass/Vol] 102 mg/dL High 70 - 99 mg/dL [employer] Phone: Interpretation and review of laboratory results Abnormal [employer] Phone: Potassium [Moles/Vol] 4.0 mmol/L 3.7 - 5.3 mmol/L [employer] Phone: Sodium [Moles/Vol] 137 mmol/L 135 - 144 mmol/L [employer] Phone: Urea nitrogen (BldV) [Mass/Vol] 26 mg/dL High 6 - 20 mg/dL [employer] Phone: Urea nitrogen/Creatinine (Bld) [Mass ratio] 38 High [employer] Phone: [employer] Phone: Iron and TIBCOrdered By: Shannon Tejeda on 05-31-2021 Interpretation and review of laboratory results Abnormal [employer] Phone: Iron [Mass/Vol] 38 ug/dL 37 - 145 ug/dL [employer] Phone: Iron Saturation 10 % Low 20 - 55 % [facility] Work Phone: TIBC 389 ug/dL 250 - 450 ug/dL [facility] Work Phone: UIBC 351 ug/dL High 112 - 347 ug/dL [facility] Phone: [employer] Phone: Laboratory - Chemistry and C hemistry - challengeOrdered By: Tiffany Tejeda on 05-31-2021 GFR/1.73 sq M.predicted MDRD (S/P/Bld) [Vol rate/Area] [employer] Phone: Comment on above: Average GFR for 30-3 9 years old: 107 mL/min/1.73sq m Chronic Kidney Disease: <60 mL/min/1.73sq m Kidney failure: <15 mL/min/1.73sq m eGFR calculated using average adult body mass. Additional eGFR calculator available at: http://www.Auxogyn/multiple_crcl_2012.htm Stage 1: Some kidney damage normal GFR Stage 2: Mild kidney damage GFR 60-89 Stage 3: Moderate kidney damage GFR 30-59 Stage 4: Severe kidney damage GFR 15-29 Stage 5: Severe kidney damage GFR <15 ESRD - chronic treatment by dialysis or transplant Lipid PanelOrdered By: Tiffany Tejeda on 05-31-2021 Cholesterol [Mass/Vol] 243 mg/dL High <200 [facility] Work Phone: Comment on above: Cholesterol Guidelines: <200 Desirable 200-240 Borderline >240 Undesirable Cholesterol in HDL [Mass/Vol] 51 mg/dL >[address] [facility] Phone: Comment on above: HDL Guidelines: <40 Undesirable 40-59 Borderline >59 Desirable Cholesterol in LDL [Mass/Vol] 167 mg/dL High 0 - 130 mg/dL [facility] Phone: Comment on above: LDL Guidelines: <100 Desirable 100-129 Near to/above Desirable 130-159 Borderline >159 Undesirable Direct (measured) LDL and calculated LDL are not interchangeable tests. Cholesterol in VLDL [Mass/Vol] NOT REPORTED 1 - 30 mg/dL [employer] Phone: Cholesterol.total/Chol esterol in HDL [Mass ratio] 4.8 {ratio} <5 [employer] Phone: Interpretation and review of laboratory results Abnormal [employer] Phone: Triglyceride [Mass/Vol] 127 mg/dL <150 [employer] Phone: Comment on above: Triglyceride Guidelines: <150 Desirable 150-199 Borderline 200-499 High >499 Very high Based on AHA Guidelines for fasting triglyceride, June 2012. [employer] Phone: Rheumatoid FactorOrdered By: Tiffany Tejeda on 05-31-2021 Rheumatoid Factor <10 <14 IU/mL [employer] Phone: [employer] Phone: Sedimentation rate, automate dOrdered By: Tiffany Tejeda on 05-31-2021 Sed Rate 10 mm 0 - 20 mm [employer] Phone: [employer] Phone: T4, FreeOrdered By: Tiffany chaudhary on 05-31-2021 Thyroxine, Free 1.22 ng/dL 0.93 - 1.70 ng/dL [employer] Phone: [employer] Phone: TSH without ReflexOrdered By : Tiffany Tejeda on 05-31-2021 TSH Qn 2.47 m[IU]/L [employer] Phone: [employer] Phone: APTTOrdered By: Rosas Soria on 04-18-2021 aPTT Coag (Bld) [Time] 24.4 s [employer] Phone: Comment on above: IV Heparin Therapy Range: 62.0-94.0 [employer] Phone: Basic Metabolic PanelOrdered By: Rosas Jauregui Clair on 04-18-2021 Anion gap [Moles/Vol] 10 mmol/L 9 - 17 mmol/L [employer] Phone: Calcium [Mass/Vol] 9.5 mg/dL 8.6 - 10. 4 mg/dL [employer] Phone: Chloride [Moles/Vol] 104 mmol/L 98 - 10 7 mmol/L [employer] Phone: CO2 [Moles/Vol] 22 mmol/L 20 - 31 mmol/L [employer] Phone: Creatinine [Mass/Vol] 0.83 mg/dL 0.50 - 0.90 mg/dL [employer] Phone: GFR >60 >60 mL/min [employer] Phone: GFR Non- >60 >60 mL/min [employer] Phone: Glucose [Mass/Vol] 119 mg/dL High 70 - 99 mg/dL [employer] Phone: Interpretation and review of laboratory results Abnormal [employer] Phone: Potassium [Moles/Vol] 4.7 mmol/L 3.7 - 5.3 mmol/L [employer] Phone: Sodium [Moles/Vol] 136 mmol/L 135 - 144 mmol/L [employer] Phone: Urea nitrogen (BldV) [Mass/Vol] 21 mg/dL High 6 - 20 mg/dL [employer] Phone: Urea nitrogen/Creatinine (Bld) [Mass ratio] 25 High [employer] Phone: [employer] Phone: CBCOrdered By: Rosas Jauregui Cla ir on 04-18-2021 Hematocrit (Bld) [Volume fraction] 35.9 % Low 36.3 - 47.1 % [employer] Phone: Hemoglobin.gastrointes tinal spec 1 Ql (Stl) 11.8 g/dL Low 11.9 - 15.1 g/dL [employer] Phone: Interpretation and review of laboratory results Abnormal [employer] Phone: MCH (RBC) [Entitic mass] 28.1 pg 25.2 - 33.5 pg [employer] Phone: MCHC (RBC) [Mass/Vol] 32.9 g/dL 28.4 - 34.8 g/dL [employer] Phone: MCV (RBC) [Entitic vol] 85.5 fL 82.6 - 102.9 fL [employer] Phone: NRBC Automated 0.0 0.0 per 100 WBC [employer] Phone: Platelet distribution width (Bld) [Ratio] 12.7 % 11.8 - 14.4 % [employer] Phone: Platelet mean volume (Bld) [Entitic vol] 10.3 fL 8.1 - 13.5 fL [employer] Phone: Platelets (Bld) [#/Vol] 325 10*3/uL [employer] Phone: RBC (Bld) [#/Vol] 4.20 10*6/uL 3.95 - 5.1 1 m/uL [employer] Phone: WBC (Bld) [#/Vol] 7.2 10*3/uL [employer] Phone: [employer] Phone: Hemoglobin [id number] By: Se madelaine Pendleton on 04-18-2021 Glucose [Mass/Vol] 120 mg/dL [employer] Phone: Comment on above: The ADA and AACC rec ommend providing the estimated average glucose result to permit better patient understanding of their HBA1c result. HbA1c (Bld) [Mass fraction] 5.8 % 4.0 - 6.0 % [employer] Phone: [employer] Phone: Laboratory - Chemistry and C hemistry - challengeOrdered By: Rosas Helder on 04-18-2021 GFR/1.73 sq M.predicted MDRD (S/P/Bld) [Vol rate/Area] [employer] Phone: Comment on above: Average GFR for 30-3 9 years old: 107 mL/min/1.73sq m Chronic Kidney Disease: <60 mL/min/1.73sq m Kidney failure: <15 mL/min/1.73sq m eGFR calculated using average adult body mass. Additional eGFR calculator available at: http://www.Auxogyn/multiple_crcl_2012.htm Stage 1: Some kidney damage normal GFR Stage 2: Mild kidney damage GFR 60-89 Stage 3: Moderate kidney damage GFR 30-59 Stage 4: Severe kidney damage GFR 15-29 Stage 5: Severe kidney damage GFR <15 ESRD - chronic treatment by dialysis or transplant Protime-INROrdered By: Ben reynolds Helder on 04-18-2021 INR Coag (Bld) [Relative time] 1.1 {INR} [employer] Phone: Comment on above: Non-therapeutic Range: INR = 0.9-1.2 Therapeutic Range: Moderate Anticoagulant Intensity: INR = 2.0-3.0 High Anticoagulant Intensity: INR = 2.5-3.5 Interpretation and review of laboratory results Abnormal [employer] Phone: PT Coag (PPP) [Time] 14.3 s High [employer] Phone: [employer] Phone: XR CHEST (2 VW)Ordered By: Nico garibay Helder on 04-18-2021 No acute process. [facility] Work Phone: EXAMINATION: TWO XRA Y VIEWS OF THE CHEST 04/18/2021 10:00 am [...] thoracic spine with some DDD again noted. [employer] Work Phone: Toño, Mhpn Incoming Radiant Results From [employer] - 04/18/2021 10:08 AM EDT EXAMINATION: TWO [...] DDD again noted. IMPRESSION: No acute process. [employer] Phone: [employer] Phone: CBC Auto DifferentialOrdered By: Charles Pearce on 02-18-2021 Absolute Eos # 0.18 [employer] [facility] Work Phone: Absolute Immature Granulocyte 0.03 [employer] Work Phone: Absolute Lymph # 2.08 [employer] [facility] Work Phone: Absolute [facility] # 0.70 [facility] Work Phone: Basophils (Bld) [#/Vol] 0.06 10*3/uL [employer] Work Phone: Basophils/100 WBC (Bld) 1 % 0 - 2 % [employer] Phone: Differential Type NOT REPORTED [employer] Phone: Eosinophils/100 WBC (Bld) 2 % 1 - 4 % [employer] Phone: Hematocrit (Bld) [Volume fraction] 36.5 % 36.3 - 47.1 % [employer] Phone: Hemoglobin.gastrointes tinal spec 1 Ql (Stl) 11.8 g/dL Low 11.9 - 15.1 g/dL [employer] Phone: Immature granulocytes/100 WBC (Bld) 0 % 0 [employer] Phone: Interpretation and review of laboratory results Abnormal [employer] Phone: Lymphocytes/100 WBC (Bld) 23 % Low 24 - 43 % [employer] Phone: MCH (RBC) [Entitic mass] 28.1 pg 25.2 - 33.5 pg [employer] Phone: MCHC (RBC) [Mass/Vol] 32.3 g/dL 28.4 - 34.8 g/dL [employer] Phone: MCV (RBC) [Entitic vol] 86.9 fL 82.6 - 102.9 fL [employer] Phone: Monocytes/100 WBC (Bld) 8 % 3 - 12 % [employer] Phone: NRBC Automated 0.0 0.0 per 100 WBC [employer] Phone: Platelet distribution width (Bld) [Ratio] 12.9 % 11.8 - 14.4 % [employer] Phone: Platelet Estimate NOT REPORTED [employer] Phone: Platelet mean volume (Bld) [Entitic vol] 10.4 fL 8.1 - 13.5 fL [employer] Phone: Platelets (Bld) [#/Vol] 290 10*3/uL [employer] Phone: RBC (Bld) [#/Vol] 4.20 10*6/uL 3.95 - 5.1 1 m/uL [employer] Work Phone: RBC (Bld) [#/Vol] NOT REPORTED [employer] Phone: Segmented neutrophils/100 WBC (Bld) 66 % High 36 - 65 % [employer] Work Phone: Segs [employer] Work Phone: WBC (Bld) [#/Vol] 9.0 10*3/uL [employer] Work Phone: WBC (Bld) [#/Vol] NOT REPORTED [employer] Phone: [employer] Work Phone: Comprehensive Metabolic Pane l w/ Reflex to MGOrdered By: Charles Pearce on 02-18-2021 Albumin [Mass/Vol] 4.3 g/dL 3.5 - 5.2 g/dL [employer] Phone: Albumin/Globulin [Mass ratio] 1.5 {ratio} [employer] Phone: ALP (Bld) [Catalytic activity/Vol] 84 U/L 35 - 104 U/L [employer] Phone: ALT [Catalytic activity/Vol] 13 U/L 5 - 33 U/L [employer] Phone: Anion gap [Moles/Vol] 11 mmol/L 9 - 17 mmol/L [employer] Phone: AST [Catalytic activity/Vol] 15 U/L <32 [employer] Phone: Bilirubin [Mass/Vol] 0.16 mg/dL Low 0.3 - 1 .2 mg/dL [employer] Phone: Calcium [Mass/Vol] 9.2 mg/dL 8.6 - 10. 4 mg/dL [employer] Phone: Chloride [Moles/Vol] 105 mmol/L 98 - 10 7 mmol/L [employer] Phone: CO2 [Moles/Vol] 20 mmol/L 20 - 31 mmol/L [employer] Phone: Creatinine [Mass/Vol] 0.88 mg/dL 0.50 - 0.90 mg/dL [employer] Phone: Free PSA/Total PSA [Mass fraction] 7.1 g/dL 6.4 - 8.3 g/dL [employer] Phone: GFR >60 >60 mL/min [employer] Phone: GFR Non- >60 >60 mL/min [employer] Phone: Glucose [Mass/Vol] 89 mg/dL 70 - 99 mg/dL [employer] Phone: Interpretation and review of laboratory results Abnormal [employer] Phone: Potassium [Moles/Vol] 4.3 mmol/L 3.7 - 5.3 mmol/L [employer] Phone: Sodium [Moles/Vol] 136 mmol/L 135 - 144 mmol/L [employer] Phone: Urea nitrogen (BldV) [Mass/Vol] 19 mg/dL 6 - 20 mg/dL [employer] Phone: Urea nitrogen/Creatinine (Bld) [Mass ratio] 22 High [employer] Phone: [employer] Phone: HCG Qualitative, SerumOrdere d By: Charles Pearce on 02-18-2021 hCG Qual Negative NEGATIVE [employer] Phone: Comment on above: Specimens with hCG l evels near the threshold of the test (25 mIU/mL) may give a negative or indeterminate result. In such cases, another test should be performed with a new specimen in 48-72 hours. If early is suspected clinically in this setting, correlation with quantitative serum b-hCG level is suggested. [employer] has confirmed the use of plasma for this test. This has not been cleared or approved by the U.S. Food and Drug Administration. The FDA has determined that such clearance is not necessary. [employer] Phone: Laboratory - Chemistry and C hemistry - challengeOrdered By: Charles Pearce on 02-18-2021 GFR/1.73 sq M.predicted MDRD (S/P/Bld) [Vol rate/Area] [employer] Phone: Comment on above: Average GFR for 30-3 9 years old: 107 mL/min/1.73sq m Chronic Kidney Disease: <60 mL/min/1.73sq m Kidney failure: <15 mL/min/1.73sq m eGFR calculated using average adult body mass. Additional eGFR calculator available at: http://www.Auxogyn/multiple_crcl_2012.htm Stage 1: Some kidney damage normal GFR Stage 2: Mild kidney damage GFR 60-89 Stage 3: Moderate kidney damage GFR 30-59 Stage 4: Severe kidney damage GFR 15-29 Stage 5: Severe kidney damage GFR <15 ESRD - chronic treatment by dialysis or transplant Urinalysis with microscopicO rdered By: Chaz Mercado on 02-18-2021 - [employer] Work Phone: Amorphous, UA 1+ Abnormal None [facility] Work Phone: Bacteria, UA 1+ Abnormal None [employer] Work Phone: Bilirubin Urine Negative NEGATIVE [facility] Work Phone: Casts UA NOT REPORTED /LPF [employer] Work Phone: Color, UA YELLOW YELLOW [employer] Work Phone: Crystals, UA NOT REPORTED None /HPF [facility] Work Phone: Epithelial Cells UA 2 TO 5 [employer] Phone: Glucose, Ur Negative NEGATIVE [facility] [employer] Work Phone: Interpretation and review of laboratory results Abnormal [facility] [employer] Work Phone: Ketones Ql (U) Negative NEGATIVE [facility] [employer] Work Phone: Leukocyte esterase Test strip Ql (U) Negative NEGATIVE [facility] [employer] Work Phone: Mucus, UA NOT REPORTED None [facility] [employer] Work Phone: Nitrite, Urine Negative NEGATIVE [facility] Work Phone: Other Observations UA NOT REPORTED NOT REQ. M [facility] [employer] Work Phone: pH, UA 6.0 [facility] [employer] Work Phone: Protein, UA Negative NEGATIVE [facility] [employer] Work Phone: RBC, UA 0 TO 2 [facility] [employer] Work Phone: Renal Epithelial, UA NOT REPORTED 0 /HPF [facility] [employer] Work Phone: Specific [place], UA [address] [facility] Work Phone: Trichomonas, UA NOT REPORTED None [facility] Work Phone: Turbidity UA CLEAR CLEAR [facility] [employer] Work Phone: Urinalysis Comments NOT REPORTED [facility] [employer] Work Phone: Urine Hgb Negative NEGATIVE [facility] [employer] Work Phone: Urobilinogen, Urine Normal Normal [facility] [employer] Work Phone: WBC, UA 2 TO 5 [facility] [employer] Work Phone: Yeast, UA NOT REPORTED None [facility] [employer] Work Phone: [facility] [employer] Work Phone: Wet Prep, GenitalOrdered By: Charles Pearce on 02-18-2021 Direct Exam NO YEAST OBSERVED [facility] Work Phone: Direct Exam NO TRICHOMONAS SEEN [employer] Phone: Direct Exam NO CLUE CELLS SEEN [employer] Phone: Special Requests NOT REPORTED [employer] Phone: Specimen Description .VAGINA [employer] Phone: [employer] Phone: CT CERVICAL SPINE WO CONTRAS TOrdered By: Rosario Murguia on 01-18-2021 No acute abnormality of the cervical spine. [employer] Phone: EXAMINATION: CT OF THE CERVICAL SPINE [...] There is no prevertebral soft tissue swelling. [employer] Phone: Toño, Mhpn Incoming Radiant Results From [employer] - 01/18/2021 8:26 AM EDT EXAMINATION: CT [...] No acute abnormality of the cervical spine. [employer] Phone: CT FACIAL BONES WO CONTRASTO rdered By: Rosario Murguia on 01-18-2021 1. No acute fracture of the facial bones. 2. Mild left facial superficial soft tissue swelling suggestive of contusion. [employer] Phone: EXAMINATION: CT OF THE FACE WITHOUT [...] subcutaneous fluid collections or significant fat infiltration. [employer] Phone: [place], [place] Incoming Radiant Results From [employer] - 01/18/2021 8:24 AM EDT EXAMINATION: CT [...] superficial soft tissue swelling suggestive of contusion. [employer] Work Phone: CT Head WO ContrastOrdered B y: Rosario Murguia on 01-18-2021 No acute intracrania l abnormality. [employer] Phone: EXAMINATION: CT OF THE HEAD WITHOUT [...] of the visualized skull or soft tissues. [employer] Phone: Toño, [facility] Incoming Radiant Results From [employer] - 01/18/2021 8:23 AM EDT EXAMINATION: CT [...] soft tissues. IMPRESSION: No acute intracranial abnormality. [employer] Phone: MRA HEAD WO CONTRASTon 07-29 Vertebral arteries are not included in the examination. Otherwise unremarkable MRA of the brain. [employer] EXAMINATION: MRA OF THE HEAD WITHOUT CONTRAST 07/29/2020 9:31 am TECHNIQUE: MRA of the head was performed utilizing [id number] imaging with MIP images. No intravenous contrast was administered. COMPARISON: None HISTORY: ORDERING SYSTEM PROVIDED HISTORY: Facial paresthesia TECHNOLOGIST PROVIDED HISTORY: Is the patient ?->No FINDINGS: ANTERIOR CIRCULATION: No significant stenosis of the intracranial internal carotid, anterior cerebral, or middle cerebral arteries. POSTERIOR CIRCULATION: Vertebral arteries are not including the examination. The basilar artery is patent. The posterior cerebral arteries are patent bilaterally. [place], [place] To[place], [place] Incoming Radiant Results From [employer] - 07/29/2020 10:00 AM EST EXAMINATION: MRA OF THE HEAD WITHOUT CONTRAST 07/29/2020 9:31 am TECHNIQUE: MRA of the head was performed utilizing [id number] imaging with MIP images. No intravenous contrast [...] examination. Otherwise unremarkable MRA of the brain. [facility] SURGICAL PROCEDUR ESon 06-15-2020 Radiology exam is complete. No Radiologist dictation. Please follow up with ordering provider. [place] MRI LUMBAR SPINE WO CONTRAST on [...] abutting the exiting left L5 nerve root. [place] EXAMINATION: MRI OF THE LUMBAR SPINE [...] abutting the exiting left L5 nerve root. [facility]- [place] Toño, pn Incoming Radiant Results From [employer] - 05/12/2020 8:11 AM EDT EXAMINATION: MRI [...] abutting the exiting left L5 nerve root. [place] KNEE LEFT WO CONTRASTon 02-26-2020 While not meeting strict MRI criteria for tear there are findings concerning for small oblique tear exiting inferiorly involving posterior horn of medial meniscus as above. Mild degenerative changes to the medial compartment of the knee. Trace knee joint effusion. [place] EXAMINATION: MRI OF THE LEFT KNEE [...] occult fracture. No suspicious focal bony lesions. [employer] Incoming Radiant Results From [employer] - 02/26/2020 12:46 PM EDT EXAMINATION: MRI [...] of the knee. Trace knee joint effusion. [place] KNEE LEFT (3 VIEWS)on Small joint effusion [place] EXAMINATION: THREE XRAY VIEWS OF THE LEFT KNEE 01/29/2020 9:08 pm COMPARISON: None. HISTORY: ORDERING SYSTEM PROVIDED HISTORY: Knee injury TECHNOLOGIST PROVIDED HISTORY: Knee injury FINDINGS: No fracture. No dislocation. No erosion. Small joint effusion. [place], [place] Incoming Radiant Results From [employer] - 01/29/2020 9:17 PM EDT EXAMINATION: THREE XRAY VIEWS OF THE LEFT KNEE 01/29/2020 9:08 pm COMPARISON: None. HISTORY: ORDERING SYSTEM PROVIDED HISTORY: Knee injury TECHNOLOGIST PROVIDED HISTORY: Knee injury FINDINGS: No fracture. No dislocation. No erosion. Small joint effusion. IMPRESSION: Small joint effusion [place] AmylaseOrdered By: Nikia newman on 09-16-2019 Amylase [Catalytic activity/Vol] 46 U/L 28 - 100 U/L [employer] Work Phone: CBC Auto DifferentialOrdered By: Nikia Monte on 09-16-2019 Absolute Eos # 0.07 [employer] [facility] Work Phone: Absolute Immature Granulocyte <0.03 [employer] Work Phone: Absolute Lymph # 1.03 Low [employer] [facility] Work Phone: Absolute [facility] # 0.[address] [facility] Work Phone: Basophils (Bld) [#/Vol] 0.03 10*3/uL [employer] Work Phone: Basophils/100 WBC (Bld) 1 % 0 - 2 % [employer] Work Phone: Differential Type NOT REPORTED [employer] Phone: Eosinophils/100 WBC (Bld) 1 % 1 - 4 % [employer] Phone: Erythrocyte distribution width (RBC) [Ratio] 13.2 % 11.8 - 14.4 % [employer] Work Phone: Hematocrit (Bld) [Volume fraction] 35.6 % Low 36.3 - 47.1 % [employer] Phone: Hemoglobin (Bld) [Mass/Vol] 12.1 g/dL 11.9 - 15.1 g/dL [employer] Phone: Immature granulocytes/100 WBC (Bld) 0 % 0 [employer] Phone: Interpretation and review of laboratory results Abnormal [employer] Phone: Lymphocytes/100 WBC (Bld) 18 % Low 24 - 43 % [employer] Phone: MCH (RBC) [Entitic mass] 30.0 pg 25.2 - 33.5 pg [employer] Phone: MCHC (RBC) [Mass/Vol] 34.0 g/dL 28.4 - 34.8 g/dL [employer] Phone: MCV (RBC) [Entitic vol] 88.3 fL 82.6 - 102.9 fL [employer] Phone: Monocytes/100 WBC (Bld) 11 % 3 - 12 % [employer] Phone: NRBC Automated 0.0 0.0 per 100 WBC [employer] Phone: Platelet Estimate NOT REPORTED [employer] Phone: Platelet mean volume (Bld) [Entitic vol] 10.2 fL 8.1 - 13.5 fL [employer] Phone: Platelets (Bld) [#/Vol] 256 10*3/uL [employer] Phone: RBC (Bld) [#/Vol] 4.03 10*6/uL 3.95 - 5.1 1 m/uL [employer] Phone: RBC morphology finding Nom (Bld) NOT REPORTED [employer] Phone: Segmented neutrophils/100 WBC (Bld) 69 % High 36 - 65 % [employer] Phone: Segs Absolute 3.93 [employer] Work Phone: WBC (Bld) [#/Vol] 5.7 10*3/uL [employer] Phone: WBC Morphology NOT REPORTED [employer] Work Phone: Comprehensive Metabolic Pane lOrdered By: Nikia Monte on 09-16-2019 Albumin [Mass/Vol] 4.3 g/dL 3.5 - 5.2 g/dL [employer] Phone: Albumin/Globulin [Mass ratio] 1.4 {ratio} [employer] Phone: ALP [Catalytic activity/Vol] 103 U/L 35 - 104 U/L [employer] Phone: ALT [Catalytic activity/Vol] 34 U/L High 5 - 33 U/L [employer] Phone: Anion gap [Moles/Vol] 15 mmol/L 9 - 17 mmol/L [employer] Phone: AST [Catalytic activity/Vol] 43 U/L High <32 [employer] Phone: Bilirubin [Mass/Vol] 0.28 mg/dL Low 0.3 - 1 .2 mg/dL [employer] Phone: Bun/Cre Ratio 18 [employer] Work Phone: Calcium [Mass/Vol] 9.4 mg/dL 8.6 - 10. 4 mg/dL [employer] Phone: Chloride [Moles/Vol] 97 mmol/L Low 98 - 10 7 mmol/L [employer] Phone: CO2 [Moles/Vol] 24 mmol/L 20 - 31 mmol/L [employer] Phone: Creatinine [Mass/Vol] 0.78 mg/dL 0.5 - 0.9 mg/dL [employer] Phone: GFR >60 >60 mL/min [employer] Phone: GFR Comment [employer] Phone: Comment on above: Average GFR for 30-3 9 years old: 107 mL/min/1.73sq m Chronic Kidney Disease: <60 mL/min/1.73sq m Kidney failure: <15 mL/min/1.73sq m eGFR calculated using average adult body mass. Additional eGFR calculator available at: http://www.Aux[employer]yn/multiple_crcl_2012.htm GFR Non- >60 >60 mL/min [employer] Phone: GFR Staging [employer] Phone: Comment on above: Stage 1: Some kidney damage normal GFR Stage 2: Mild kidney damage GFR 60-89 Stage 3: Moderate kidney damage GFR 30-59 Stage 4: Severe kidney damage GFR 15-29 Stage 5: Severe kidney damage GFR <15 ESRD - chronic treatment by dialysis or transplant Glucose [Mass/Vol] 104 mg/dL High 70 - 99 mg/dL [employer] Phone: Interpretation and review of laboratory results Abnormal [employer] Phone: Potassium [Moles/Vol] 3.8 mmol/L 3.7 - 5.3 mmol/L [employer] Phone: Protein [Mass/Vol] 7.3 g/dL 6.4 - 8.3 g/dL [employer] Phone: Sodium [Moles/Vol] 136 mmol/L 135 - 144 mmol/L [employer] Phone: Urea nitrogen [Mass/Vol] 14 mg/dL 6 - 20 mg/dL [employer] Phone: LipaseOrdered By: Nikia gooden on 09-16-2019 Lipase [Catalytic activity/Vol] 32 U/L 13 - 60 U/L [employer] Phone: Rapid influenza A/B antigens Ordered By: Nikia Monte on 09-16-2019 Direct Exam Presumptive negative for the presence of Influenza A and Influenza B antigen. PCR confirmation of negative results is recommended, since the antigen present in the specimen may be below the detection limit of the test. [employer] Phone: Special Requests NOT REPORTED [employer] Phone: Specimen Description .NOSE [employer] Phone: XR ABDOMEN (KUB) (SINGLE AP VIEW)Ordered By: Nikia Monte on 09-16-2019 Nonspecific, nonobstructive bowel gas pattern. Moderate retained stool, mostly left colon. [employer] Phone: EXAMINATION: ONE SUPINE XRAY VIEW(S) OF THE ABDOMEN 09/16/2019 2:20 pm COMPARISON: Abdominal series from HISTORY: ORDERING SYSTEM PROVIDED HISTORY: Fever with chills FINDINGS: Moderate retained stool, mostly left colon. No abnormal bowel dilatation. No obvious free air. No obvious abnormal calcification, mass or organomegaly. Bones and soft tissues appear intact. [employer] Phone: Toño, pn Incoming Radiant Results From [employer] - 09/16/2019 4:16 PM EST EXAMINATION: ONE [...] pattern. Moderate retained stool, mostly left colon. [employer] Phone: XR CHEST STANDARD (2 VW)Orde red By: Nikia Monte on 09-16-2019 Mild perihilar congestion and thickening but no evidence of consolidative infiltrates. [employer] Phone: EXAMINATION: TWO XRA Y VIEWS OF THE CHEST 09/16/2019 2:20 pm COMPARISON: None. HISTORY: ORDERING SYSTEM PROVIDED HISTORY: Fever with chills FINDINGS: Mildly increased perihilar markings consistent with congestion. No evidence of consolidative infiltrates. No evidence of pleural effusion or pneumothorax. Heart and mediastinum appear normal. [employer] Phone: Toño, [place] Incoming Radiant Results From [employer] - 09/16/2019 2:47 PM EST EXAMINATION: TWO XRAY VIEWS OF THE CHEST 09/16/2019 2:20 pm COMPARISON: None. HISTORY: ORDERING SYSTEM PROVIDED HISTORY: Fever with chills FINDINGS: Mildly increased perihilar markings consistent with congestion. No evidence of consolidative infiltrates. No evidence of pleural effusion or pneumothorax. Heart and mediastinum appear normal. IMPRESSION: Mild perihilar congestion and thickening but no evidence of consolidative infiltrates. [employer] Phone: Basic Metabolic PanelOrdered By: Junior Rodriguez on 08-22-2019 Anion gap [Moles/Vol] 11 mmol/L 9 - 17 mmol/L [employer] Phone: Bun/Cre Ratio 26 High [employer] Work Phone: Calcium [Mass/Vol] 9.4 mg/dL 8.6 - 10. 4 mg/dL [employer] Phone: Chloride [Moles/Vol] 102 mmol/L 98 - 10 7 mmol/L [employer] Phone: CO2 [Moles/Vol] 21 mmol/L 20 - 31 mmol/L [employer] Phone: Creatinine [Mass/Vol] 0.72 mg/dL 0.5 - 0.9 mg/dL [employer] Phone: GFR >60 >60 mL/min [employer] Phone: GFR Comment [employer] Phone: Comment on above: Average GFR for 30-3 9 years old: 107 mL/min/1.73sq m Chronic Kidney Disease: <60 mL/min/1.73sq m Kidney failure: <15 mL/min/1.73sq m eGFR calculated using average adult body mass. Additional eGFR calculator available at: http://www.Auxogyn/multiple_crcl_2012.htm GFR Non- >60 >60 mL/min [employer] Phone: GFR Staging [employer] Phone: Comment on above: Stage 1: Some kidney damage normal GFR Stage 2: Mild kidney damage GFR 60-89 Stage 3: Moderate kidney damage GFR 30-59 Stage 4: Severe kidney damage GFR 15-29 Stage 5: Severe kidney damage GFR <15 ESRD - chronic treatment by dialysis or transplant Glucose [Mass/Vol] 122 mg/dL High 70 - 99 mg/dL [employer] Phone: Interpretation and review of laboratory results Abnormal [employer] Phone: Potassium [Moles/Vol] 4.3 mmol/L 3.7 - 5.3 mmol/L [employer] Phone: Sodium [Moles/Vol] 134 mmol/L Low 135 - 144 mmol/L [employer] Phone: Urea nitrogen [Mass/Vol] 19 mg/dL 6 - 20 mg/dL [employer] Phone: CBC Auto DifferentialOrdered By: Junior Rodriguez on 08-22-2019 Absolute Eos # 0.03 [facility] Work Phone: Absolute Immature Granulocyte 0.05 [employer] Work Phone: Absolute Lymph # 1.58 [facility] [facility] Work Phone: Absolute [facility] # 0.25 [employer] [facility] Work Phone: Basophils (Bld) [#/Vol] 0.03 10*3/uL [employer] Phone: Basophils/100 WBC (Bld) 0 % 0 - 2 % [employer] Phone: Differential Type NOT REPORTED [employer] Phone: Eosinophils/100 WBC (Bld) 0 % Low 1 - 4 % [employer] Phone: Erythrocyte distribution width (RBC) [Ratio] 12.9 % 11.8 - 14.4 % [employer] Phone: Hematocrit (Bld) [Volume fraction] 38.0 % 36.3 - 47.1 % [employer] Phone: Hemoglobin (Bld) [Mass/Vol] 12.5 g/dL 11.9 - 15.1 g/dL [employer] Phone: Immature granulocytes/100 WBC (Bld) 0 % 0 [employer] Phone: Interpretation and review of laboratory results Abnormal [employer] Phone: Lymphocytes/100 WBC (Bld) 13 % Low 24 - 43 % [employer] Phone: MCH (RBC) [Entitic mass] 29.1 pg 25.2 - 33.5 pg [employer] Phone: MCHC (RBC) [Mass/Vol] 32.9 g/dL 28.4 - 34.8 g/dL [employer] Phone: MCV (RBC) [Entitic vol] 88.4 fL 82.6 - 102.9 fL [employer] Phone: Monocytes/100 WBC (Bld) 2 % Low 3 - 12 % [employer] Phone: NRBC Automated 0.0 0.0 per 100 WBC [employer] Phone: Platelet Estimate NOT REPORTED [employer] Phone: Platelet mean volume (Bld) [Entitic vol] 10.1 fL 8.1 - 13.5 fL [employer] Phone: Platelets (Bld) [#/Vol] 377 10*3/uL [employer] Work Phone: RBC (Bld) [#/Vol] 4.30 10*6/uL 3.95 - 5.1 1 m/uL [employer] Work Phone: RBC morphology finding Nom (Bld) NOT REPORTED [employer] Work Phone: Segmented neutrophils/100 WBC (Bld) 85 % High 36 - 65 % [employer] Work Phone: Segs Absolute 9.95 High [facility] Work Phone: WBC (Bld) [#/Vol] 11.9 10*3/uL High [employer] Work Phone: WBC Morphology NOT REPORTED [employer] [facility] Work Phone: Rheumatoid FactorOrdered By: Junior Rodriguez on 08-22-2019 Rheumatoid Factor <10 <14 IU/mL [employer] Work Phone: TSH without ReflexOrdered By : Junior Rodriguez on 08-22-2019 TSH Qn 0.72 m[IU]/L [employer] Work Phone: XR CERVICAL SPINE (4-5 VIEWS )Ordered By: Junior Rodriguez on 08-22-2019 Minimal C5-C6 degenerative change, otherwise negative cervical spine. [employer] Phone: EXAMINATION: 5 XRAY VIEWS OF THE [...] The base of the odontoid appears intact. [employer] Work Phone: Toño, Mhpn Incoming Radiant Results From [employer] - 08/22/2019 5:08 PM EST EXAMINATION: 5 [...] C5-C6 degenerative change, otherwise negative cervical spine. 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 [employer] Phone: EXAMINATION: THREE XRAY VIEWS OF THE [...] sacrum is unremarkable. No significant degenerative changes. 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 [employer] Phone: CBC Auto Differentialon 11-2 Basophils (Bld) [#/Vol] 0.05 10*3/uL [employer] Basophils/100 WBC (Bld) 1 % 0 - 2 % [employer] Differential Type NOT REPORTED [place] Eosinophils (Bld) [#/Vol] 0.10 10*3/uL [place] Eosinophils/100 WBC (Bld) 1 % 1 - 4 % [place] Erythrocyte distribution width (RBC) [Ratio] 12.7 % 11.8 - 14.4 % [place] Hematocrit (Bld) [Volume fraction] 41.2 % 36.3 - 47.1 % [place] Hemoglobin (Bld) [Mass/Vol] 13.9 g/dL 11.9 - 15.1 g/dL [place] Immature granulocytes (Bld) [#/Vol] 0 % 0 [place] Immature granulocytes (Bld) [#/Vol] 10*3/uL [place] Lymphocytes (Bld) [#/Vol] 2.37 10*3/uL [place] Lymphocytes/100 WBC (Bld) 29 % 24 - 43 % [place] MCH (RBC) [Entitic mass] 28.8 pg 25.2 - 33.5 pg [place] MCHC (RBC) [Mass/Vol] 33.7 g/dL 28.4 - 34.8 g/dL [place] MCV (RBC) [Entitic vol] 85.3 fL 82.6 - 102.9 fL [place] Monocytes (Bld) [#/Vol] 0.53 10*3/uL [place] Monocytes/100 WBC (Bld) 7 % 3 - 12 % [place] Platelet mean volume (Bld) [Entitic vol] 10.8 fL 8.1 - 13.5 fL [place] Platelets (Bld) [#/Vol] 326 10*3/uL [place] Platelets (Bld) [#/Vol] NOT REPORTED [place] RBC (Bld) [#/Vol] 4.83 10*6/uL 3.95 - 5.1 1 m/uL [place] RBC morphology finding Nom (Bld) NOT REPORTED [place] Segmented neutrophils/100 WBC (Bld) 62 % 36 - 65 % [place] Segs Absolute 5.08 [place] WBC (Bld) [#/Vol] 8.2 10*3/uL [place] WBC (Bld) [#/Vol] 0.0 10*3/uL 0.0 per 10 0 WBC [place] WBC Morphology NOT REPORTED [place] Comprehensive Metabolic Pane lindy 07-30-2019 Albumin [Mass/Vol] 4.7 g/dL 3.5 - 5.2 g/dL [place] Albumin/Globulin [Mass ratio] 1.4 {ratio} [place] ALP [Catalytic activity/Vol] 75 U/L 35 - 104 U/L [place] ALT [Catalytic activity/Vol] 19 U/L 5 - 33 U/L [place] Anion gap [Moles/Vol] 13 mmol/L 9 - 17 mmol/L [place] AST [Catalytic activity/Vol] 21 U/L <32 [place] Bilirubin Ql (U) 0.57 mg/dL 0.3 - 1.2 mg/dL [place] Bun/Cre Ratio 17 [place] Calcium [Mass/Vol] 9.9 mg/dL 8.6 - 10. 4 mg/dL [place] Chloride [Moles/Vol] 99 mmol/L 98 - 10 7 mmol/L [place] CO2 [Moles/Vol] 22 mmol/L 20 - 31 mmol/L [place] Creatinine [Mass/Vol] 0.75 mg/dL 0.5 - 0.9 mg/dL [place] GFR >60 >60 mL/min [place] GFR Non- >60 >60 mL/min [place] Glucose [Mass/Vol] 108 mg/dL High 70 - 99 mg/dL [place] Interpretation and review of laboratory results Abnormal [place] Potassium [Moles/Vol] 3.9 mmol/L 3.7 - 5.3 mmol/L [place] Protein [Mass/Vol] 8.1 g/dL 6.4 - 8.3 g/dL [place] Sodium [Moles/Vol] 134 mmol/L Low 135 - 144 mmol/L [place] Urea nitrogen [Mass/Vol] 13 mg/dL 6 - 20 mg/dL [place] Drug screen multi urineon Amphetamine Screen, Ur Negative NEGATIVE [facility] Barbiturate Screen, Ur Negative NEGATIVE [facility] Benzodiazepine Screen, Urine Negative NEGATIVE [facility] Buprenorphine Urine Negative [facility]GATIVE [facility] [place], [place] Cannabinoid Scrn, Ur Negative NEGATIVE [facility], [place] Cocaine Metabolite, Urine Negative NEGATIVE [facility] [place], [place] MDMA, Urine NOT REPORTED NEGATIVE [facility] Methadone Screen, Urine Negative NEGATIVE [facility] [place] Methamphetamine, Urine Negative NEGATIVE [facility] Opiates, Urine Negative NEGATIVE [facility] Oxycodone Screen, Ur Negative NEGATIVE [facility] Phencyclidine, Urine Negative NEGATIVE [facility] Propoxyphene, Urine Negative NEGATIVE [facility] [place], [place] Test Information NOT REPORTED [facility] [place] Tricyclic Antidepressants, Urine Negative NEGATIVE [facility] [place], [place] Comment on above: Drug screen results are to be used for medical purposes only. All positive results are unconfirmed. Testing for employment or legal uses should be sent to a reference laboratory for confirmation. HCG Qualitative, Serumon hCG Qual Negative NEGATIVE [place], [place] Comment on above: Specimens with hCG l evels near the threshold of the test (25 mIU/mL) may give a negative or indeterminate result. In such cases, another test should be performed with a new specimen in 48-72 hours. If early is suspected clinically in this setting, correlation with quantitative serum b-hCG level is suggested. [employer] has confirmed the use of plasma for this test. This has not been cleared or approved by the U.S. Food and Drug Administration. The FDA has determined that such clearance is not necessary. Magnesiumon 07-30-2019 Magnesium [Mass/Vol] 2.1 mg/dL 1.6 - 2 .6 mg/dL [place], [place] Metabolic Panelon 07-30-2019 GFR/1.73 sq M predicted among non-blacks MDRD (S/P/Bld) [Vol rate/Area] [place] Comment on above: Average GFR for 30-3 9 years old: 107 mL/min/1.73sq m Chronic Kidney Disease: <60 mL/min/1.73sq m Kidney failure: <15 mL/min/1.73sq m eGFR calculated using average adult body mass. Additional eGFR calculator available at: http://www.[employer]/multiple_crcl_2012.htm Stage 1: Some kidney damage normal GFR Stage 2: Mild kidney damage GFR 60-89 Stage 3: Moderate kidney damage GFR 30-59 Stage 4: Severe kidney damage GFR 15-29 Stage 5: Severe kidney damage GFR <15 ESRD - chronic treatment by dialysis or transplant Microscopic Urinalysison Amorphous, UA 1+ Abnormal None [place], [place] Bacteria, UA NOT REPORTED None [place], [place] Casts UA NOT REPORTED /LPF [place], [place] Crystals UA NOT REPORTED None /HPF [place] Epithelial Cells UA 5 TO 10 [place], [place] Interpretation and review of laboratory results Abnormal [place] Mucus, UA NOT REPORTED None [place] Other Observations UA NOT REPORTED NOT REQ. M [place], [place] RBC (U) [#/Vol] 0 TO 2 [place], [place] Renal Epithelial, Urine NOT REPORTED 0 /HPF [place], [place] Trichomonas, UA NOT REPORTED None [place], [place] WBC, UA 2 TO 5 [place] Yeast, UA NOT REPORTED None [place] - [place], [place] Otheron 07-30-[address]: No acute intracranial abnormality. Lumbar spine CT: No acute osseous abnormality. [place] EXAMINATION: CT OF THE HEAD WITHOUT [...] abnormal fluid collections. No nephrolithiasis or hydronephrosis. [facility], [place] Toño, Mhpn Incoming Radiant Results From [employer] - 07/30/2019 11:05 AM EST EXAMINATION: CT [...] Lumbar spine CT: No acute osseous abnormality. [place] TSH without Reflexon 019 TSH Qn 1.43 m[IU]/L [place] Troponinon 07-30-2019 Troponin I.cardiac [Mass/Vol] [place], [place] Comment on above: Reference Range: <0.03 [...] diagnosis. Troponin T.cardiac [Mass/Vol] ug/L <0.03 ng/mL [place] Comment on above: Troponin T results c annot be compared to Troponin-I results. Troponin, High Sensitivity NOT REPORTED 0 - 14 ng/L [place] Urinalysis Reflex to Culture on 07-30-2019 Bilirubin Urine Negative NEGATIVE [place], [place] Color, UA YELLOW YELLOW [place], [place] Glucose, Ur Negative NEGATIVE [place] Interpretation and review of laboratory results Abnormal [place] Ketones Ql (U) Negative NEGATIVE [place] Leukocyte esterase Test strip Ql (U) Negative NEGATIVE [place] Nitrite, Urine Negative NEGATIVE [place] pH, UA 7.5 [place] Protein (U) [Mass/Vol] Negative NEGATIVE [place], [place] Specific [place], UA 1.015 [facility] [place], [place] Turbidity UA CLEAR CLEAR [facility] [place], [place] Urinalysis Comments NOT REPORTED [facility] Urine Hgb TRACE Abnormal NEGATIVE [facility] Urobilinogen, Urine Normal Normal [facility] Vital Signs Date Time Vital Sign Value Performing Clinician Gulshan hearn 04-06-2025 15:19-0400 Body mass index (BMI) [Ratio] 33.6 kg/m2 Mynor Glaser PA-C Work Phone: [facility] 04-06-2025 15:19-0400 Body weight 88.8 kg Mynor Glaser PA-C Work Phone: [facility] 04-06-2025 15:19-0400 Diastolic blood pressure 62 mm[Hg] Mynor Glaser PA-C Work Phone: [facility] 04-06-2025 15:19-0400 Heart rate 96 /min Mynor Glaser PA-C Work Phone: [facility] 04-06-2025 15:19-0400 Systolic blood pressure 102 mm[Hg] Mynor Glaser PA-C Work Phone: [facility] 03-04-2025 10:34-0400 Body height 162.6 cm Johnathan Haas MD Work Phone: [facility] 03-04-2025 10:34-0400 Body mass index (BMI) [Ratio] 30.88 kg/m2 Johnathan Haas MD Work Phone: [facility] 03-04-2025 10:34-0400 Body weight 81.6 kg Johnathan Haas MD Work Phone: [facility] 03-04-2025 10:34-0400 Diastolic blood pressure 70 mm[Hg] Johnathan Haas MD Work Phone: [facility] 03-04-2025 10:34-0400 Heart rate 91 /min Johnathan Haas MD Work Phone: [facility] 03-04-2025 10:34-0400 Respiratory rate 16 /min Johnathan Haas MD Work Phone: [facility] 03-04-2025 10:34-0400 SaO2% (BldA) [Mass fraction] 98 % Johnathan Haas MD Work Phone: [facility] 03-04-2025 10:34-0400 Systolic blood pressure 122 mm[Hg] Johnathan Haas MD Work Phone: [facility] 02-16-2025 07:34-0400 Body height 162.6 cm Pacc 1 Other Phone: [facility] 02-16-2025 07:34-0400 Body mass index (BMI) [Ratio] 32.01 kg/m2 Pacc 1 Other Phone: [facility] 02-16-2025 07:34-0400 Body temperature 97.3 [degF] Pacc 1 Other Phone: [facility] 02-16-2025 07:34-0400 Body weight 84.6 kg Pacc 1 Other Phone: [facility] 02-16-2025 07:34-0400 Diastolic blood pressure 67 mm[Hg] Pacc 1 Other Phone: [facility] 02-16-2025 07:34-0400 Heart rate 68 /min Pacc 1 Other Phone: [facility] 02-16-2025 07:34-0400 Respiratory rate 18 /min Pacc 1 Other Phone: [facility] 02-16-2025 07:34-0400 SaO2% (BldA) [Mass fraction] 99 % Pacc 1 Other Phone: [facility] 02-16-2025 07:34-0400 Systolic blood pressure 99 mm[Hg] Pacc 1 Other Phone: [facility] 01-28-2025 16:12-0400 Body mass index (BMI) [Ratio] 32.61 kg/m2 Tommie Mccann DO Work Phone: [facility] 01-28-2025 16:12-0400 Body weight 86.18 kg Tommie Siobhan DO Work Phone: [facility] 01-28-2025 16:12-0400 Diastolic blood pressure 70 mm[Hg] Tommie Siobhan DO Work Phone: [facility] 01-28-2025 16:12-0400 Systolic blood pressure 120 mm[Hg] Tommie Siobhan DO Work Phone: [facility] 01-05-2025 15:08-0400 Body weight 84.4 kg Uriel Guzmán MD Work Phone: [facility] 01-05-2025 14:02-0400 Body weight 81.65 kg Rishabh Huang MD Work Phone: [facility] 01-05-2025 14:02-0400 Diastolic blood pressure 63 mm[Hg] Rishabh Huang MD Work Phone: [facility] 01-05-2025 14:02-0400 Heart rate 72 /min Rishabh Huang MD Work Phone: [facility] 01-05-2025 14:02-0400 Systolic blood pressure 119 mm[Hg] Rishabh Huang MD Work Phone: [facility] 12-19-2024 12:45-0400 Diastolic blood pressure 46 mm[Hg] Doc Felix MD Work Phone: [facility] 12-19-2024 12:45-0400 Heart rate 65 /min [facility] 12-19-2024 12:45-0400 Respiratory rate 16 /min Doc Felix MD [facility] 12-19-2024 12:45-0400 Systolic blood pressure 91 mm[Hg] Doc Felix MD [facility] 12-19-2024 12:09-0400 SaO2% (BldA) [Mass fraction] 100 % Doc Felix MD [facility] 12-19-2024 11:08-0400 Body height 162.6 cm Doc Felix MD [facility] 12-19-2024 11:08-0400 Body mass index (BMI) [Ratio] 30.9 kg/m2 Doc Felix MD [facility] 12-19-2024 11:08-0400 Body weight 81.65 kg Doc Felix MD [facility] 12-15-2024 14:58-0400 Body weight 82 kg Johnathan Haas MD Work Phone: [facility] 12-15-2024 14:58-0400 Diastolic blood pressure 65 mm[Hg] Johnathan Haas MD Work Phone: [facility] 12-15-2024 14:58-0400 Heart rate 73 /min Johnathan Haas MD Work Phone: [facility] 12-15-2024 14:58-0400 Systolic blood pressure 110 mm[Hg] Johnathan Haas MD Work Phone: [facility] 12-03-2024 15:13-0400 Heart rate 88 /min Catherine Calvillo MD Work Phone: [facility] [employer] 12-03-2024 15:13-0400 SaO2% (BldA) [Mass fraction] 97 % Catherine Calvillo MD Work Phone: [facility] [employer] 12-03-2024 15:00-0400 Diastolic blood pressure 60 mm[Hg] Catherine Calvillo MD Work Phone: [facility] [employer] 12-03-2024 15:00-0400 Systolic blood pressure 107 mm[Hg] Catherine Calvillo MD Work Phone: [facility] [employer] 12-03-2024 12:00-0400 Body height 162.6 cm Catherine Calvillo MD Work Phone: [employer] 12-03-2024 12:00-0400 Body temperature 98.49 [degF] Catherine Calvillo MD Work Phone: [facility] [employer] 12-03-2024 11:29-0400 Body mass index (BMI) [Ratio] 29.18 kg/m2 Catherine Calvillo MD Work Phone: [facility] [employer] 12-03-2024 11:29-0400 Body weight 77.11 kg Catherine Calvillo MD Work Phone: [facility] [employer] 12-03-2024 11:29-0400 Respiratory rate 18 /min Catherine Calvillo MD Work Phone: [facility] [employer] 11-14-2024 13:37-0500 Body height 162.6 cm Christofer Milner MD Work Phone: [facility] [employer] 11-14-2024 13:37-0500 Body mass index (BMI) [Ratio] 29.18 kg/m2 Christofer Milner MD Work Phone: [employer] 11-14-2024 13:37-0500 Body temperature 97.59 [degF] Christofer Milner MD Work Phone: [facility] [employer] 11-14-2024 13:37-0500 Body weight 77.11 kg Christofer Milner MD Work Phone: [employer] 11-14-2024 13:37-0500 Diastolic blood pressure 70 mm[Hg] Christofer Milner MD Work Phone: [employer] 11-14-2024 13:37-0500 Heart rate 72 /min Christofer Milner MD Work Phone: [facility] [employer] 11-14-2024 13:37-0500 Respiratory rate 18 /min Christofer Milner MD Work Phone: [employer] 11-14-2024 13:37-0500 SaO2% (BldA) [Mass fraction] 97 % [facility]ofer Milner MD [facility] 11-14-2024 13:37-0500 Systolic blood pressure 113 mm[Hg] [facility]er Milner MD [facility] [employer] 10-15-2024 18:30-0500 Diastolic blood pressure 66 mm[Hg] Doc Felix MD [facility] [employer] 10-15-2024 18:30-0500 Heart rate 75 /min Doc Felix MD [facility] [employer] 10-15-2024 18:30-0500 SaO2% (BldA) [Mass fraction] 99 % Doc Felix MD [facility] 10-15-2024 18:30-0500 Systolic blood pressure 110 mm[Hg] Doc Felix MD [facility] 10-15-2024 17:30-0500 Respiratory rate 16 /min Doc Felix MD [facility] 10-15-2024 15:48-0500 Body mass index (BMI) [Ratio] 29.18 kg/m2 Doc Felix MD [facility] [employer] 10-15-2024 15:48-0500 Body temperature 98.01 [degF] Doc Felix MD [facility] 10-15-2024 15:48-0500 Body weight 77.11 kg Doc Felix MD [facility] 10-02-2024 09:46-0500 Body height 162.6 cm Kelly Thomas MD Work Phone: [facility] [employer] [facility] 10-02-2024 09:46-0500 Body mass index (BMI) [Ratio] 28.82 kg/m2 Kelly Thomas MD Work Phone: [facility] 10-02-2024 09:46-0500 Body temperature 98.01 [degF] Kelly Thomas MD Work Phone: [facility] 10-02-2024 09:46-0500 Body weight 76.2 kg Kelyl Thomas MD Work Phone: [facility] 10-02-2024 09:46-0500 Diastolic blood pressure 74 mm[Hg] Kelly Thomas MD Work Phone: [facility] 10-02-2024 09:46-0500 Heart rate 78 /min Kelly Thomas MD Work Phone: [facility] 10-02-2024 09:46-0500 Respiratory rate 16 /min Kelly Thomas MD Work Phone: [facility] 10-02-2024 09:46-0500 Systolic blood pressure 118 mm[Hg] Kelly Thomas MD Work Phone: [facility] 09-17-2024 08:50-0500 Body height 162.6 cm Myra Shendge V, PA Work Phone: [facility] 09-17-2024 08:50-0500 Body mass index (BMI) [Ratio] 28.84 kg/m2 Myra Shendge V, PA Work Phone: [facility] 09-17-2024 08:50-0500 Body weight 76.2 kg Myra Shendge V, PA Work Phone: [facility] 09-17-2024 08:50-0500 Diastolic blood pressure 68 mm[Hg] Myra Shendge V, PA Work Phone: [facility] 09-17-2024 08:50-0500 Heart rate 73 /min Myra Shendge V, PA Work Phone: [facility] 09-17-2024 08:50-0500 Respiratory rate 16 /min Myra Shendge V, PA Work Phone: [facility] 09-17-2024 08:50-0500 Systolic blood pressure 104 mm[Hg] JESSIE Nye Work Phone: [facility] 08-06-2024 14:37-0500 Body height 162.6 cm Shirin Morales MD MPH Work Phone: [facility] 08-06-2024 14:37-0500 Body mass index (BMI) [Ratio] 29.18 kg/m2 Shirin Morales MD MPH Work Phone: [facility] 08-06-2024 14:37-0500 Body weight 77.11 kg Shirin Morales MD MPH Work Phone: [facility] 08-06-2024 14:37-0500 Diastolic blood pressure 70 mm[Hg] Shirin Morales MD MPH Work Phone: [facility] 08-06-2024 14:37-0500 Respiratory rate 16 /min Shirin Morales MD MPH Work Phone: [facility] 08-06-2024 14:37-0500 Systolic blood pressure 112 mm[Hg] Shirin Morales MD MPH Work Phone: [facility] 05-14-2024 15:13-0400 Body height 162.6 cm Shirin Morales MD MPH Work Phone: [facility] 05-14-2024 15:13-0400 Body mass index (BMI) [Ratio] 29.01 kg/m2 Shirin Morales MD MPH Work Phone: [facility] 05-14-2024 15:13-0400 Body weight 76.66 kg Shirin Morales MD MPH Work Phone: [facility] 05-14-2024 15:13-0400 Diastolic blood pressure 68 mm[Hg] Shirin Morales MD MPH Work Phone: [facility] 05-14-2024 15:13-0400 Respiratory rate 16 /min Shirin Morales MD MPH Work Phone: [facility] 05-14-2024 15:13-0400 Systolic blood pressure 104 mm[Hg] Shirin Morales MD MPH Work Phone: [facility] 03-06-2024 14:01-0400 Body height 162.6 cm Jarred Carter MD Work Phone: [facility] 03-06-2024 14:01-0400 Body mass index (BMI) [Ratio] 29.18 kg/m2 Jarred Carter MD Work Phone: [facility] 03-06-2024 14:01-0400 Body temperature 98.1 [degF] Jarred Carter MD Work Phone: [facility] 03-06-2024 14:01-0400 Body weight 77.11 kg Jarred Carter MD Work Phone: [facility] 01-09-2024 11:21-0400 Body height 162.6 cm Jarred Carter MD Work Phone: [facility] 01-09-2024 11:21-0400 Body mass index (BMI) [Ratio] 29.18 kg/m2 Jarred Carter MD Work Phone: [facility] 01-09-2024 11:21-0400 Body temperature 97.3 [degF] Jarred Carter MD Work Phone: [facility] 01-09-2024 11:21-0400 Body weight 77.11 kg Jarred Carter MD Work Phone: [facility] 01-09-2024 11:21-0400 Respiratory rate 16 /min Jarred Carter MD Work Phone: [facility] 12-11-2023 13:03-0400 Body height 162.6 cm Jarred Carter MD Work Phone: [facility] [employer] [facility] 12-11-2023 13:03-0400 Body mass index (BMI) [Ratio] 30 kg/m2 Jarred Carter MD Work Phone: [facility] 12-11-2023 13:03-0400 Body temperature 98.1 [degF] Jarred Carter MD Work Phone: [facility] 12-11-2023 13:03-0400 Body weight 79.29 kg Jarred Carter MD Work Phone: [facility] 12-11-2023 13:03-0400 Respiratory rate 18 /min Jarred Carter MD Work Phone: [facility] 12-11-2023 05:32-0400 Body temperature 97.3 [degF] Rishabh Ross MD [facility]: [facility] 12-11-2023 05:32-0400 Diastolic blood pressure 69 mm[Hg] Rishabh Ross MD Work Phone: [facility] 12-11-2023 05:32-0400 Heart rate 92 /min Rishabh Ross MD Work Phone: [facility] 12-11-2023 05:32-0400 Respiratory rate 17 /min Rishabh Ross MD Work Phone[facility] 12-11-2023 05:32-0400 SaO2% (BldA) [Mass fraction] 100 % Rishabh Ross MD Work [facility] 12-11-2023 05:32-0400 Systolic blood pressure 117 mm[Hg] Rishabh Ross MD Work Phone: [facility] 09-28-2023 13:06-0500 Body temperature 100.2 [degF] Avelino Muse DO Work Phone: [facility] 09-28-2023 13:06-0500 Diastolic blood pressure 58 mm[Hg] Avelino Swade DO Work Phone: [facility] [employer] 09-28-2023 13:06-0500 Heart rate 94 /min Avelino Swade DO Work Phone: [facility] [employer] 09-28-2023 13:06-0500 Respiratory rate 20 /min Avelino Swade DO Work Phone: [facility] [employer] 09-28-2023 13:06-0500 SaO2% (BldA) [Mass fraction] 97 % Avelino Swade DO Work Phone: [facility] [employer] 09-28-2023 13:06-0500 Systolic blood pressure 111 mm[Hg] Avelino Swade DO Work Phone: [facility] [employer] 09-28-2023 10:51-0500 Body height 162.6 cm Avelino Swade DO Work Phone: [facility] [employer] 09-28-2023 10:51-0500 Body mass index (BMI) [Ratio] 33.47 kg/m2 Avelino Swade DO Work Phone: [facility] [employer] 09-28-2023 10:51-0500 Body weight 88.45 kg Avelino Swade DO Work Phone: [facility] [employer] 09-11-2023 09:16-0500 Body height 162.6 cm Haley Gan Jr. , DO Work Phone: [employer] 09-11-2023 09:16-0500 Body mass index (BMI) [Ratio] 33.13 kg/m2 Haley Gan Jr., DO Work Phone: [employer] 09-11-2023 09:16-0500 Body temperature 97 [degF] Haley Gan Jr. , DO Work Phone: [employer] 09-11-2023 09:16-0500 Body weight 87.54 kg Haley Gan Jr. , DO Work Phone: [employer] [facility] 09-11-2023 09:16-0500 Diastolic blood pressure 82 mm[Hg] Haley Gan Jr., DO Work Phone: [employer] [facility] 09-11-2023 09:16-0500 Heart rate 88 /min Haley Gan Jr. , DO Work Phone: [facility] [employer] [facility] 09-11-2023 09:16-0500 SaO2% (BldA) [Mass fraction] 98 % Haley Gan Jr., DO Work Phone: [employer] [facility] 09-11-2023 09:16-0500 Systolic blood pressure 124 mm[Hg] Haley Gan Jr., DO Work Phone: [employer] [facility] 09-01-2023 21:13-0500 Diastolic blood pressure 51 mm[Hg] Octavio Andes DO Work Phone: [employer] 09-01-2023 21:13-0500 Heart rate 71 /min Octavio Andes DO Work Phone: [employer] 09-01-2023 21:13-0500 Respiratory rate 12 /min Octavio Andes DO Work Phone: [employer] 09-01-2023 21:13-0500 SaO2% (BldA) [Mass fraction] 95 % Octavio Andes DO Work Phone: [employer] 09-01-2023 21:13-0500 Systolic blood pressure 115 mm[Hg] Octavio Andes DO Work Phone: [employer] 09-01-2023 19:40-0500 Body height 162.6 cm Octavio Andes DO Work Phone: [employer] 09-01-2023 19:40-0500 Body mass index (BMI) [Ratio] 32.61 kg/m2 Octavio Andes DO Work Phone: [employer] 09-01-2023 19:40-0500 Body temperature 99 [degF] Octavio Andes DO Work Phone: [facility] [employer] 09-01-2023 19:40-0500 Body weight 86.18 kg Octavio Andes DO Work Phone: [facility] [employer] 08-25-2023 08:45-0500 Body temperature 97.9 [degF] Patricio Aldridge MD Work Phone: [facility] [employer] 08-25-2023 08:45-0500 Diastolic blood pressure 70 mm[Hg] Patricio Aldridge MD Work Phone: [facility] [employer] 08-25-2023 08:45-0500 Heart rate 63 /min Patricio Aldridge MD Work Phone: [facility] [employer] 08-25-2023 08:45-0500 Respiratory rate 18 /min Patricio Aldridge MD Work Phone: [facility] [employer] 08-25-2023 08:45-0500 SaO2% (BldA) [Mass fraction] 99 % Patricio Aldridge MD Work Phone: [facility] [employer] 08-25-2023 08:45-0500 Systolic blood pressure 106 mm[Hg] Patricio Aldridge MD Work Phone: [facility] [employer] 08-24-2023 14:45-0500 Body mass index (BMI) [Ratio] 32.88 kg/m2 Patricio Aldridge MD Work Phone: [facility] [employer] 08-24-2023 14:45-0500 Body weight 86.9 kg Patricio Aldridge MD Work Phone: [facility] [employer] 08-24-2023 06:50-0500 Body height 162.6 cm Patricio Aldridge MD Work Phone: [facility] [employer] 06-04-2023 14:41-0400 Diastolic blood pressure 82 mm[Hg] Malaika Lan [facility] 06-04-2023 14:41-0400 Mean blood pressure 96 mm[Hg] Malaika Lan [facility] 06-04-2023 14:41-0400 Systolic blood pressure 124 mm[Hg] Malaika Lan [facility] 06-04-2023 14:30-0400 Blood Pressure Location Malaika Lan [facility] 06-04-2023 14:30-0400 Diastolic blood pressure 93 mm[Hg] Malaika Lan [facility] 06-04-2023 14:30-0400 Heart rate 82 /min Malaika Lan [facility] 06-04-2023 14:30-0400 SaO2% (BldA) [Mass fraction] 99 % Malaika Lan [facility] 06-04-2023 14:30-0400 Systolic blood pressure 139 mm[Hg] Malaika Lan [facility] 12-16-2022 17:22-0400 Body mass index (BMI) [Ratio] 33.47 kg/m2 Catherine Calvillo MD Work Phone: [facility] [employer] 12-16-2022 17:22-0400 Body temperature 97.5 [degF] Catherine Calvillo MD Work Phone: [facility] [employer] 12-16-2022 17:22-0400 Body weight 88.45 kg Catherine Calvillo MD Work Phone: [employer] 12-16-2022 17:22-0400 Diastolic blood pressure 82 mm[Hg] Catherine Calvillo MD Work Phone: [employer] 12-16-2022 17:22-0400 Heart rate 61 /min Catherine Calvillo MD Work Phone: [facility] [employer] 12-16-2022 17:22-0400 Respiratory rate 16 /min Catherine Calvillo MD Work Phone: [employer] 12-16-2022 17:22-0400 SaO2% (BldA) [Mass fraction] 99 % Catherine Calvillo MD Work Phone: [facility] [employer] 12-16-2022 17:22-0400 Systolic blood pressure 138 mm[Hg] Catherine Calvillo MD Work Phone: [facility] [employer] 11-06-2022 16:42-0500 Body temperature 98.8 [degF] Tiffany Might HOME SERVICE ADVISOR - [employer]ATING OPERATOR [employer] Work Phone: [facility] [employer] 11-06-2022 16:42-0500 Diastolic blood pressure 65 mm[Hg] Tiffany Might HOME SERVICE ADVISOR - [employer]IL[employer] Work Phone: [facility] [employer] 11-06-2022 16:42-0500 Heart rate 88 /min Tiffany Might HOME SERVICE ADVISOR - [employer]ATING OPERATOR [employer] Work Phone: [facility] [employer] 11-06-2022 16:42-0500 Respiratory rate 16 /min Tiffany Might HOME SERVICE ADVISOR - [employer]ATING OPERATOR [employer] Work Phone: [facility] [employer] 11-06-2022 16:42-0500 SaO2% (BldA) [Mass fraction] 98 % Tiffany Might HOME SERVICE ADVISOR - [employer]RO[employer] Work Phone: [employer] 11-06-2022 16:42-0500 Systolic blood pressure 116 mm[Hg] Tiffany Might HOME SERVICE ADVISOR - [employer]RO[employer] Work Phone: [employer] 06-25-2022 15:33-0400 Body temperature 97.5 [degF] Tiffany Might HOME SERVICE ADVISOR - [employer]ATING OPERATOR [employer] Work Phone: [facility] [employer] 06-25-2022 15:33-0400 Diastolic blood pressure 86 mm[Hg] Tiffany Might HOME SERVICE ADVISOR - [employer]RO[employer] Work Phone: [employer] 06-25-2022 15:33-0400 Heart rate 76 /min Tiffany Might HOME SERVICE ADVISOR - C WIRE COATING OPERATOR METAL Work Phone: [facility] 06-25-2022 15:33-0400 Respiratory rate 16 /min Tiffany Might HOME SERVICE ADVISOR - C WIRE COATING OPERATOR METAL Work Phone: [facility] 06-25-2022 15:33-0400 SaO2% (BldA) [Mass fraction] 98 % Tiffany Might HOME SERVICE ADVISOR - RAILROAD HAND Work Phone: [facility] 06-25-2022 15:33-0400 Systolic blood pressure 122 mm[Hg] Tiffany Might HOME SERVICE ADVISOR - RAILROAD HAND Work Phone: [facility] 04-11-2022 10:44-0400 Body height 162.6 cm Yas Serrano MD Work Phone: [facility] 04-11-2022 10:44-0400 Body mass index (BMI) [Ratio] 33.13 kg/m2 Yas Serrano MD Work Phone: [facility] 04-11-2022 10:44-0400 Body temperature 97.5 [degF] Yas Serrano MD Work Phone: [facility] 04-11-2022 10:44-0400 Body weight 87.54 kg Yas Serrano MD Work Phone: [facility] 04-11-2022 10:44-0400 Diastolic blood pressure 62 mm[Hg] Yas Serrano MD Work Phone: [facility] 04-11-2022 10:44-0400 Heart rate 68 /min Yas Serrano MD Work Phone: [facility] 04-11-2022 10:44-0400 Systolic blood pressure 104 mm[Hg] Yas Serrano MD Work Phone: [facility] 11-12-2021 18:36-0500 Body temperature 98.1 [degF] Delbert Nascimento MD Work Phone: [facility] 11-12-2021 18:36-0500 Diastolic blood pressure 54 mm[Hg] Delbert Nascimento MD Work Phone: [employer] 11-12-2021 18:36-0500 Heart rate 79 /min Delbert Nascimento MD Work Phone: [employer] 11-12-2021 18:36-0500 Respiratory rate 18 /min Delbert Nascimento MD Work Phone: [employer] 11-12-2021 18:36-0500 SaO2% (BldA) [Mass fraction] 98 % Delbert Nascimento MD Work Phone: [employer] 11-12-2021 18:36-0500 Systolic blood pressure 114 mm[Hg] Delbert Nascimento MD Work Phone: [employer] 02-18-2021 16:09-0400 Body height 162.6 cm Charles Pearce Jr., MD Work Phone: [employer] Work Phone: 02-18-2021 16:09-0400 Body mass index (BMI) [Ratio] 30.9 kg/m2 Charles Pearce Jr., MD Work Phone: [employer] Work Phone: 02-18-2021 16:09-0400 Body temperature 97.9 [degF] Charles Pearce Jr., MD Work Phone: [employer] Work Phone: 02-18-2021 16:09-0400 Body weight 81.65 kg Charles Pearce Jr., MD Work Phone: [employer] Work Phone: 02-18-2021 16:09-0400 Diastolic blood pressure 65 mm[Hg] Charles Pearce Jr., MD Work Phone: [employer] Work Phone: 02-18-2021 16:09-0400 Heart rate 89 /min Charles Pearce Jr., MD Work Phone: [employer] Work Phone: 02-18-2021 16:09-0400 Respiratory rate 18 /min Charles Pearce Jr., MD Work Phone: [employer] Work Phone: 02-18-2021 16:09-0400 SaO2% (BldA) [Mass fraction] 99 % Charles Pearce Jr., MD Work Phone: [employer] Work Phone: 02-18-2021 16:09-0400 Systolic blood pressure 111 mm[Hg] Charles Pearce Jr., MD Work Phone: [employer] Phone: 01-18-2021 07:45-0400 Body mass index (BMI) [Ratio] 30.9 kg/m2 Rosario Murguia Renrendai Work Phone: [employer] Phone: 01-18-2021 07:45-0400 Body temperature 98.1 [degF] Rosario Ellis Renrendai Work Phone: [employer] Phone: 01-18-2021 07:45-0400 Body weight 81.65 kg Rosario Murguia DO Work Phone: [employer] Phone: 01-18-2021 07:40-0400 Diastolic blood pressure 77 mm[Hg] Rosario Murguia DO Work Phone: [employer] Phone: 01-18-2021 07:40-0400 Heart rate 91 /min Rosario Murguia DO Work Phone: [employer] Phone: 01-18-2021 07:40-0400 Respiratory rate 16 /min Rosario Murguia Renrendai Work Phone: [employer] Phone: 01-18-2021 07:40-0400 SaO2% (BldA) [Mass fraction] 97 % Rosario Murguia DO Work Phone: [employer] Work Phone: 01-18-2021 07:40-0400 Systolic blood pressure 134 mm[Hg] Rosario Murguia DO Work Phone: [employer] Work Phone: 06-15-2020 16:45-0400 BP Diastolic 62 mm[Hg] [facility] [place] 06-15-2020 16:45-0400 BP Systolic 100 mm[Hg] [facility] [place] 06-15-2020 16:45-0400 Pulse (Heart Rate) 60 /min [facility] 06-15-2020 16:45-0400 Pulse Oximetry 100 % [facility] [place] 06-15-2020 16:45-0400 Respiratory Rate 16 /min [facility] [place] 06-15-2020 16:05-0400 Body Temperature 97.39 [degF] [facility] [place] 06-15-2020 15:13-0400 BMI (Body Mass Index) 29.18 kg/m2 [facility] [place] 06-15-2020 15:13-0400 Body weight 77.11 kg [facility] [place] 06-15-2020 15:13-0400 Height 162.6 cm [facility] [place] 03-03-2020 15:17-0400 Body Temperature 97.9 [degF] [facility] [place] 03-03-2020 15:17-0400 BP Diastolic 86 mm[Hg] [facility] [place] 03-03-2020 15:17-0400 BP Systolic 121 mm[Hg] [facility] [place] 03-03-2020 15:17-0400 Pulse (Heart Rate) 89 /min [facility] [place] 03-03-2020 15:17-0400 Pulse Oximetry 98 % Nikia Bravo [facility] , [place] 03-03-2020 15:17-0400 Respiratory Rate 16 /min Nikia Bravo [facility], [place] 01-29-2020 20:48-0400 Body Temperature 98.1 [degF] Dalton Bravo [facility], [place] 01-29-2020 20:48-0400 BP Diastolic 90 mm[Hg] [place] 01-29-2020 20:48-0400 BP Systolic 148 mm[Hg] Dalton Singerimes [place], [place] 01-29-2020 20:48-0400 Pulse (Heart Rate) 72 /min [facility] [place] 01-29-2020 20:48-0400 Pulse Oximetry 99 % [facility] [place] 01-29-2020 20:48-0400 Respiratory Rate 18 /min Dalton Bravo [place], [place] 07-30-2019 12:17-0500 BP Diastolic 58 mm[Hg] [place] 07-30-2019 12:17-0500 BP Systolic 104 mm[Hg] [place] 07-30-2019 12:17-0500 Pulse (Heart Rate) 52 /min [place], [place] 07-30-2019 12:17-0500 Respiratory Rate 6 /min [place] 07-30-2019 11:45-0500 Pulse Oximetry 99 % [place] 07-30-2019 08:24-0500 BMI (Body Mass Index) 28.32 kg/m2 [place], [place] 07-30-2019 08:24-0500 Body Temperature 97.81 [degF] [place] 07-30-2019 08:24-0500 Body weight 74.84 kg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 06/09/2024 (Approximate), Expires: 06/09/2025 [facility] Comment on above: Expected: 06/09/2024 (Approximate), Expi res: 06/09/2025 Start: 06-09-2024 End: 06-09-2025 Estradiol Estradiol Lab Routine Hormone disorder Expected: 06/09/2024 (Approximate), Expires: 06/09/2025 [facility] Work Phone: Comment on above: Expected: 06/09/2024 (Approximate), Expi res: 06/09/2025 Start: 06-09-2024 End: 06-09-2025 Estrone Estrone Lab Routine Hormone disorder Expected: 06/09/2024 (Approximate), Expires: 06/09/2025 [facility] Comment on above: Expected: 06/09/2024 (Approximate), Expi res: 06/09/2025 Start: 06-09-2024 End: 06-09-2025 Ferritin [Mass/volume] in Serum or Plasma Ferritin Lab Routine Hormone disorder Expected: 06/09/2024 (Approximate), Expires: 06/09/2025 [facility] Comment on above: Expected: 06/09/2024 (Approximate), Expi res: 06/09/2025 Start: 06-09-2024 End: 06-09-2025 Glucose [Mass/volume] in Serum or Plasma Glucose, random Lab Routine Hormone disorder Expected: 06/09/2024, Expires: 06/09/2025 [facility] Comment on above: Expected: 06/09/2024, Expires: Start: 06-09-2024 End: 06-09-2025 Hemoglobin A1c/Hemoglobin.total in Blood Hemoglobin A1c Lab Routine Hormone disorder Expected: 06/09/2024 (Approximate), Expires: 06/09/2025 [facility] Comment on above: Expected: 06/09/2024 (Approximate), Expi res: 06/09/2025 Start: 06-09-2024 End: 06-09-2025 Insulin, total Insulin, total Lab Routine Hormone disorder Expected: 06/09/2024, Expires: 06/09/2025 [facility] Comment on above: Expected: 06/09/2024, Expires: Start: 06-09-2024 End: 06-09-2025 Progesterone Progesterone Lab Routine Hormone disorder Expected: 06/09/2024 (Approximate), Expires: 06/09/2025 [facility] Comment on above: Expected: 06/09/2024 (Approximate), Expi res: 06/09/2025 Start: 06-09-2024 End: 06-09-2025 Serotonin serum Serotonin serum Lab Routine Hormone disorder Expected: 06/09/2024, Expires: 06/09/2025 [facility] Comment on above: Expected: 06/09/2024, Expires: Start: 06-09-2024 End: 06-09-2025 Sex hormone binding globulin Sex hormone binding globulin Lab Routine Hormone disorder Expected: 06/09/2024 (Approximate), Expires: 06/09/2025 [facility] Comment on above: Expected: 06/09/2024 (Approximate), Expi res: 06/09/2025 Start: 06-09-2024 End: 06-09-2025 T3, reverse T3, reverse Lab Routine Hormone disorder Expected: 06/09/2024 (Approximate), Expires: 06/09/2025 [facility] Comment on above: Expected: 06/09/2024 (Approximate), Expi res: 06/09/2025 Start: 06-09-2024 End: 06-09-2025 TESTOSTERONE, FREE TESTOSTERONE, FREE Lab Routine Hormone disorder Expected: 06/09/2024 (Approximate), Expires: 06/09/2025 [facility] Comment on above: Expected: 06/09/2024 (Approximate), Expi res: 06/09/2025 Start: 06-09-2024 End: 06-09-2025 Testosterone, free, total Testosterone, free, total Lab Routine Hormone disorder Expected: 06/09/2024 (Approximate), Expires: 06/09/2025 [facility] Comment on above: Expected: 06/09/2024 (Approximate), Expi res: 06/09/2025 Start: 06-09-2024 End: 06-09-2025 Thyroglobulin Thyroglobulin Lab Routine Hormone disorder Expected: 06/09/2024, Expires: 06/09/2025 [facility] Comment on above: Expected: 06/09/2024, Expires: Start: 06-09-2024 End: 06-09-2025 Thyroglobulin Antibody Thyroglobulin Antibody Lab Routine Hormone disorder Expected: 06/09/2024, Expires: 06/09/2025 [facility] Comment on above: Expected: 06/09/2024, Expires: Start: 06-09-2024 End: 06-09-2025 Thyroid peroxidase antibody Thyroid peroxidase antibody Lab Routine Hormone disorder Expected: 06/09/2024 (Approximate), Expires: 06/09/2025 [facility] Comment on above: Expected: 06/09/2024 (Approximate), Expi res: 06/09/2025 Start: 06-09-2024 End: 06-09-2025 Thyrotropin [Units/volume] in Serum or Plasma [facility] Comment on above: Expected: 06/09/2024 (Approximate), Expi res: 06/09/2025 Expected: 06/09/2024 , Expires: 06/09/2025 Start: 06-09-2024 End: 06-09-2025 Thyroxine (T4) free [Mass/volume] in Serum or Plasma T4, free Lab Routine Hormone disorder Expected: 06/09/2024 (Approximate), Expires: 06/09/2025 [facility] Comment on above: Expected: 06/09/2024 (Approximate), Expi res: 06/09/2025 Start: 06-09-2024 End: 06-09-2025 Triiodothyronine (T3) Free [Mass/volume] in Serum or Plasma T3, free Lab Routine Hormone disorder Expected: 06/09/2024 (Approximate), Expires: 06/09/2025 [facility] Comment on above: Expected: 06/09/2024 (Approximate), Expi res: 06/09/2025 Start: 06-09-2024 End: 06-09-2025 Vitamin D 1,25 dihydroxy Vitamin D 1,25 dihydroxy Lab Routine Hormone disorder Expected: 06/09/2024 (Approximate), Expires: 06/09/2025 [facility] Comment on above: Expected: 06/09/2024 (Approximate), Expi res: 06/09/2025 Start: 06-09-2024 End: 06-09-2024 Patient encounter procedure 06/09/2024 10:10 AM EDT Office Visit [facility] [address] [place] [phone] Tommie Mccann, [address] [place] [address] Arrived [facility] Comment on above: Arrived Start: 05-26-2024 End: 05-26-2024 Patient encounter procedure 05/26/2024 9:45 AM EDT Appointment [facility] Physical [facility] [address] [place] [phone] Malaika Villanueva PT HIP REPLACEMENT [facility] Comment on above: HIP REPLACEMENT Start: 05-11-2024 COVID-19 Vaccine ( season) COVID-19 Vaccine ( [facility]) [facility] Start: 05-11-2024 COVID-19 Vaccine ( season) COVID-19 Vaccine ( season) [facility] Start: 05-11-2024 Influenza vaccination [facility] Start: 04-10-2024 Influenza vaccination [facility] Start: 04-09-2024 End: 04-09-2024 Patient encounter procedure 04/09/2024 8:00 AM EDT Office Visit [facility] [address] [place] [phone] [place] [address] [place] [phone] [facility] Start: 02-23-2024 Depression Monitoring Depression Monitoring [facility] Start: 02-23-2024 Screening for malignant neoplasm of cervix Cervical cancer screen [facility] [employer] Comment on above: Postponed from 2006 (Not Indicated ) Start: 01-09-2024 End: 01-09-2024 Clinical Support [facility] Start: 08-18-2023 Depression Monitoring Depression Monitoring [facility] Start: 08-17-2023 Hemoglobin A1c measurement A1C test (Diabetic or Prediabetic) [facility] Start: 08-17-2023 Lipid panel Lipids [facility] Start: 06-13-2023 Depression Monitoring Depression Monitoring [facility] Start: 06-13-2023 DTaP/Tdap/Td vaccine (1 - Tdap) DTaP/Tdap/Td vaccine (1 - Tdap) [facility] Comment on above: Postponed from 01/09/2004 (Patient Refus ed) Start: 06-13-2023 Hepatitis C screening Hepatitis C screen [facility] Comment on above: Postponed from 2003 (Patient Refus ed) Start: 06-13-2023 HIV screening HIV screen [facility] Comment on above: Postponed from 01/09/2000 (Patient Refus ed) Start: 05-23-2023 Influenza vaccination Flu vaccine (#1) [facility] Comment on above: Postponed from 04/10/2022 (Patient Refus ed) Start: 05-11-2023 COVID-19 Vaccine ( season) COVID-19 Vaccine ( season) [facility] Start: 05-11-2023 Influenza vaccination INFLUENZA VACCINE (#1) [facility] Start: 04-10-2023 Influenza vaccination Flu vaccine (#1) [facility] Start: 02-20-2023 End: 02-20-2023 Patient encounter procedure 02/20/2023 Office Visit Primary Care Tiffany Tejeda, HOME SERVICE ADVISOR - [employer]ILRO[employer] HAND [address] [place] [address] [facility] Ismael Start: 02-16-2023 COVID-19 Vaccine (3 - Booster for Pfizer series) COVID-19 Vaccine (3 - Booster for Pfizer series) [facility] Comment on above: Postponed from 07/28/2021 (Not Indicated ) Postponed from 04/22 (Not Indicated) Start: 02-16-2023 Hemoglobin A1c measurement A1C test (Diabetic or Prediabetic) [facility]MON[facility] Start: 10-21-2022 Depression Monitoring Depression Monitoring [facility] Start: 08-18-2022 End: 08-18-2022 Patient encounter procedure 08/18/2022 Office Visit Primary Care Tiffany Tejeda HOME SERVICE ADVISOR - [employer] [address] [place] [address] [facility] Start: 07-05-2022 End: 07-05-2022 Patient encounter procedure 07/05/2022 Appointment Radiology [facility] MRI Start: 05-26-2022 Depression Monitoring Depression Monitoring [facility] Start: 05-26-2022 DTaP/Tdap/Td vaccine (1 - Tdap) DTaP/Tdap/Td vaccine (1 - Tdap) [facility] Comment on above: Postponed from 01/09/2004 (Patient Refus ed) Start: 05-26-2022 Hepatitis C screening Hepatitis C screen [facility] Comment on above: Postponed from 1985 (Patient Refus ed) Start: 05-26-2022 HIV screening HIV screen [facility] Comment on above: Postponed from 01/09/2000 (Patient Refus ed) Start: 05-26-2022 Influenza vaccination Flu vaccine (#1) [facility] Comment on above: Postponed from 05/11/2021 (Patient Refus ed) Start: 05-26-2022 Screening for malignant neoplasm of cervix Cervical cancer screen [facility] Comment on above: Postponed from 2015 (Not Indicated ) Postponed from 01/08 (Not Indicated) Start: 05-11-2022 Influenza vaccination INFLUENZA VACCINE (#1) [employer] [facility] Start: 04-18-2022 Hemoglobin A1c measurement A1C test (Diabetic or Prediabetic) [facility] Start: 10-20-2021 End: 10-20-2021 Patient encounter procedure 10/20/2021 Office Visit Primary Care Tiffany Tejeda HOME SERVICE ADVISOR - [employer] [address] [place] [address] [facility] Start: 07-28-2021 COVID-19 Vaccine (3 - Booster for Pfizer series) COVID-19 Vaccine (3 - Booster for Pfizer series) [facility] Start: 06-24-2021 End: 06-24-2021 Patient encounter procedure 06/24/2021 Office Visit Primary Care Tiffany Tejeda HOME SERVICE ADVISOR - [employer] [address] [place] [address] [phone] [facility] Start: 06-22-2021 End: 06-22-2021 Patient encounter procedure 06/22/2021 Office Visit [facility] ONLY Start: 06-16-2021 Varicella vaccine (1 of 2 - 2-dose childhood series) Varicella vaccine (1 of 2 - 2-dose childhood series) [facility] [employer] Phone: Comment on above: Postponed from 1986 (Not Indicated ) Start: 05-26-2021 End: 05-26-2021 Patient encounter procedure 05/26/2021 Office Visit Primary Care Tiffany Tejeda, HOME SERVICE ADVISOR - [employer] [address] [place] [address] [phone] [facility] Start: 05-11-2021 Influenza vaccination [facility] [employer] Phone: Start: 03-23-2021 End: 03-23-2021 Patient encounter procedure 03/23/2021 Office Visit [facility] ONLY Start: 09-22-2020 End: 09-22-2020 Office Visit 09/22/2020 Office Visit [facility] Start: 05-11-2020 Influenza vaccination [facility], [place] Start: 09-18-2019 End: 09-18-2019 Clinical Support 09/18/2019 Clinical Support Otolaryngology Noelle Chaidez MA -[facility] Start: 05-11-2019 Influenza vaccination Flu vaccine (#1) [facility] [place] Start: 05-11-2019 Influenza vaccination given SEQUENTIAL INFLUENZA VACCINE (#1) [facility] Start: 2015 Screening for malignant neoplasm of cervix [facility] Start: 01-09-2012 HPV Vaccine (1 - 3-dose SCDM series) HPV Vaccine (1 - 3-dose SCDM series) [facility] Start: 2006 Cervical cancer screen Cervical cancer screen [place], [place] Start: 2006 Screening for malignant neoplasm of cervix [facility] Start: 01-09-2004 DTaP,Tdap and Td Vaccines (1 - Tdap) DTaP,Tdap and Td Vaccines (1 - Tdap) [facility] Start: 01-09-2004 DTaP/Tdap/Td vaccine (1 - Tdap) DTaP/Tdap/Td vaccine (1 - Tdap) [facility] Start: 01-09-2004 Hepatitis B vaccine (1 of 3 - 19+ 3-dose series) Hepatitis B vaccine (1 of 3 - 19+ 3-dose series) [facility] Start: 01-09-2004 Third diphtheria, tetanus and acellular pertussis (DTaP) vaccination TDAP (ADULT) [facility] Start: 01-09-2004 Urine microalbumin profile DTaP,Tdap,Td Vaccine (1 - Tdap) [facility] Start: 2003 Adult BMI Follow Up Plan Adult BMI Follow Up Plan [facility] Start: 2003 Anxiety Screening Anxiety Screening [facility] Start: 2003 Depression Screening Depression Screening [facility] Start: 2003 Hepatitis C screening [facility] Start: 2003 HIV screening HIV Screening [facility] Start: 2003 Tetanus vaccination TETANUS [facility] Start: 2001 COVID-19 Vaccine (1) COVID-19 Vaccine (1) [facility] [employer] Phone: Start: 01-09-2000 HIV screen HIV screen [place], [place] Start: 01-09-2000 HIV screening [facility] Start: 1997 COVID-19 Vaccine (1) COVID-19 Vaccine (1) [facility] [employer] Phone: Start: 1997 Depression Monitoring Depression Monitoring [facility] Start: 1997 Depression Screening Depression Screening [facility] Start: 01-09-1996 DTaP/Tdap/Td vaccine (1 - Tdap) DTaP/Tdap/Td vaccine (1 - Tdap) [place] Start: 01-09-1988 History and physical examination, annual for health maintenance Wellness Visit [facility] Start: 1986 Varicella vaccine (1 of 2 - 2-dose childhood series) Varicella vaccine (1 of 2 - 2-dose childhood series) [place] Start: 1985 COVID-19 VACCINE (#1) COVID-19 VACCINE (#1) [facility] Start: 1985 Hepatitis B vaccination HEP B VACCINE (1 of 3 - 3-dose series) [facility] Start: 1985 Hepatitis B vaccine (1 of 3 - 3-dose series) Hepatitis B vaccine (1 of 3 - 3-dose series) [facility] Start: 1985 Hepatitis C antibody, confirmatory test HEPATITIS C VIRUS SCREENING [facility] Start: 1985 Hepatitis C screening [facility] Start: 1985 Screening for malignant neoplasm of cervix PAP SMEAR [facility] Start: 1985 Tetanus vaccination [facility] End: 05-31-2021 LARISSA Screen With Reflex LARISSA Screen With Reflex Lab Routine Chronic pain syndrome 1 Occurrences starting 05/31/2021 until 05/31/2021 [facility] [employer] Phone: Comment on above: 1 Occurrences starting 05/31/2021 until 05/31/2021 LARISSA Screen With Reflex LARISSA Scree n With Reflex Lab Routine Chronic pain syndrome 05/31/2021 10:43 AM EDT [facility] [employer] Phone: End: 06-15-2020 Blood glucose - POCT Blood glucose - POCT Point of Care Testing Routine One Time for 1 Occurrences starting 06/15/2020 until 06/15/2020 [place] Comment on above: One Time for 1 Occurrences starting 02/2020 until 06/15/2020 End: 02-18-2021 C.trachomatis N.gonorrhoeae DNA C.trachomatis N.gonorrhoeae DNA Microbiology STAT One Time for 1 Occurrences starting 02/18/2021 until 02/18/2021 [facility] [employer] Phone: Comment on above: One Time for 1 Occurrences starting 02/08 until 02/18/2021 C.trachomatis N.gonorrhoeae DNA C.trachomatis N.gonorrhoeae DNA Microbiology STAT 02/18/2021 7:48 PM EDT [employer] Work Phone: CHLAMYDIA TRACHOMATI S (GENITO/STI) CHLAMYDIA TRACHOMATIS (GENITO/STI) Lab Routine Pelvic pain in female Ordered: 01/28/2025 [facility] Comment on above: Ordered: 01/28/2025 End: 01-14-2026 CT Lumbar spine WO contrast CT LUMBAR SPINE WO IVCON Radiology Routine Spinal stenosis of lumbar region, unspecified whether neurogenic claudication present 1 Occurrences starting 12/15/2024 until 01/14/2026 [facility] Comment on above: 1 Occurrences starting 12/15/2024 until 01/14/2026 End: 12-26-2024 CT Lumbar spine WO contrast [facility] Work Phone: Comment on above: 1 Occurrences starting 12/26/2024 until 12/26/2024 End: 05-31-2021 Cyanocobalamin vitamin b-12 Vitamin B12 Lab Routine Chronic fatigue 1 Occurrences starting 05/31/2021 until 05/31/2021 [employer] Work Phone: Comment on above: 1 Occurrences starting 05/31/2021 until 05/31/2021 Cyanocobalamin vitam in b-12 Vitamin B12 Lab Routine Chronic fatigue 05/31/2021 10:44 AM EDT [employer] Work Phone: End: 05-14-2025 Cytoplasmic Neutrophilic Ab, S Cytoplasmic Neutrophilic Ab, S Lab Routine Nasal septum perforation Osteoarthritis, unspecified osteoarthritis type, unspecified site 1 Occurrences starting 05/14/2024 until 05/14/2025 [employer] Work Phone: Comment on above: 1 Occurrences starting 05/14/2024 until 05/14/2025 EKG 12 Lead EKG 12 Lead ECG STAT 07/30/2019 8:36 AM EST [employer]- [place], [place] EKG 12 Lead EKG 12 Lead ECG Routine 10/15/2024 3:50 PM EST [employer] End: 03-04-2026 EMG(NEURO/NI) EMG(NEURO/NI) EMG Routine Bilateral carpal tunnel syndrome 1 Occurrences starting 03/04/2025 until 03/04/2026 [facility] Comment on above: 1 Occurrences starting 03/04/2025 until 03/04/2026 End: 07-30-2019 Free T4 [Mass/Vol] T4, Free Lab STAT One Time for 1 Occurrences starting 07/30/2019 until 07/30/2019 [employer] Comment on above: One Time for 1 Occurrences starting 07/12 until 07/30/2019 Free T4 [Mass/Vol] T4, Free Lab STAT 07/30/2019 8:15 AM LAZARO [employer] End: 06-21-2022 HLA-B27 Antigen [employer] Phone: Comment on above: Once for 1 Occurrences starting 06/21/20 22 until 06/21/2022 Lupus Anticoagulant Lupus Antico agulant Lab Routine 08/22/2019 4:31 PM [email or web address] Phone: End: 04-18-2021 MRSA DNA Probe, Nasal MRSA DNA Probe, Nasal Microbiology STAT Once for 1 Occurrences starting 04/18/2021 until 04/18/2021 [employer] Phone: Comment on above: Once for 1 Occurrences starting 04/18/20 21 until 04/18/2021 MRSA DNA Probe, Nasal MRSA DNA P robe, Nasal Microbiology STAT 04/18/2021 9:44 AM EDT [employer] Phone: End: 10-10-2021 MRSA DNA Probe, Nasal [employer] Work Phone: Comment on above: Once for 1 Occurrences starting 10/10/19 22 until 10/10/2021 End: 05-14-2025 Myeloperoxidase AB Myeloperoxidase AB Lab Routine Nasal septum perforation Osteoarthritis, unspecified osteoarthritis type, unspecified site 1 Occurrences starting 05/14/2024 until 05/14/2025 [facility] [employer] Comment on above: 1 Occurrences starting 05/14/2024 until 05/14/2025 Myeloperoxidase Ab [Units/volume] in Serum Myeloperoxidase AB Lab Routine Nasal septum perforation Osteoarthritis, unspecified osteoarthritis type, unspecified site 05/14/2024 4:57 PM EDT [employer] Neisseria gonorrhoea e DNA [Presence] in Unspecified specimen by GARO with probe detection Neisseria gonorrhea DNA probe, direct Lab Routine Pelvic pain in female Ordered: 01/28/2025 [facility] Comment on above: Ordered: 01/28/2025 Neutrophil cytoplasm ic Ab panel - Serum by Immunofluorescence Cytoplasmic Neutrophilic Ab, S Lab Routine Nasal septum perforation Osteoarthritis, unspecified osteoarthritis type, unspecified site 05/14/2024 4:57 PM EDT [employer] End: 08-22-2019 Nuclear Ab [Titer] in Serum by Immunofluorescence LARISSA Lab Routine Once for 1 Occurrences starting 08/22/2019 until 08/22/2019 [employer] Phone: Comment on above: Once for 1 Occurrences starting 08/22/20 19 until 08/22/2019 Nuclear Ab [Titer] i n Serum by Immunofluorescence LARISSA Lab Routine 08/22/2019 4:31 PM [email or web address] Phone: End: 06-21-2022 Nuclear Ab [Titer] in Serum by Immunofluorescence [employer] Phone: Comment on above: Once for 1 Occurrences starting 06/21/20 22 until 06/21/2022 Oxygen therapy [[facility] Data Set] Initiate Oxygen Therapy Protocol Respiratory Care Routine As Needed until discontinued starting 08/24/2023 [employer] Comment on above: As Needed until discontinued starting End: 06-15-2020 , urine , urine Lab Routine One Time for 1 Occurrences starting 06/15/2020 until 06/15/2020 [employer] [place], [place] Comment on above: One Time for 1 Occurrences starting 02/2020 until 06/15/2020 Proteinase 3 Ab [Units/volume] in Serum Proteinase 3 AB PR3 Lab Routine Nasal septum perforation Osteoarthritis, unspecified osteoarthritis type, unspecified site 05/14/2024 4:57 PM EDT [employer] End: 05-14-2025 Proteinase 3 AB PR3 Proteinase 3 AB PR3 Lab Routine Nasal septum perforation Osteoarthritis, unspecified osteoarthritis type, unspecified site 1 Occurrences starting 05/14/2024 until 05/14/2025 [facility] Comment on above: 1 Occurrences starting 05/14/2024 until 05/14/2025 SURESWAB(R) ADVANCED VAGINITIS PLUS, TMA SURESWAB(R) ADVANCED VAGINITIS PLUS, TMA Pathology and Cytology Routine Pelvic pain in female Ordered: 01/28/2025 [facility] [employer] Work Phone: Comment on above: Ordered: 01/28/2025 THIN PREP TIS PAP AN D HR HPV DNA THIN PREP TIS PAP AND HR HPV DNA Pathology and Cytology Routine Well woman exam with routine gynecological exam Ordered: 02/19/2025 [employer] Comment on above: Ordered: 02/19/2025 End: 12-03-2024 Thyroxine (T4) free [Mass/volume] in Serum or Plasma [facility] Comment on above: One Time for 1 Occurrences starting 11/09 until 12/03/2024 End: 01-14-2026 XR Lumbar spine Views W flexion and W extension XR LUMBAR MOTION 4V AP/LAT/ FLEX/EXT Radiology Routine Status post lumbar spinal fusion 1 Occurrences starting 12/15/2024 until 01/14/2026 [facility] Work Phone: Comment on above: 1 Occurrences starting 12/15/2024 until 01/14/2026 End: 04-03-2026 XR Lumbar spine Views W flexion and W extension XR LUMBAR MOTION 4V AP/LAT/ FLEX/EXT Radiology Routine Chronic pain syndrome Failed back syndrome Mechanical back pain 1 Occurrences starting 03/04/2025 until 04/03/2026 [facility] Work Phone: Comment on above: 1 Occurrences starting 03/04/2025 until 04/03/2026 End: 01-14-2026 XR Pelvis and Hip - right AP and Lateral frog XR HIP GENERAL 3V PELV/AP/LAT RIGHT Radiology Routine Status post lumbar spinal fusion Unilateral groin pain Labral tear of hip, degenerative Pain in right hip 1 Occurrences starting 12/15/2024 until 01/14/2026 [facility] Comment on above: 1 Occurrences starting 12/15/2024 until 01/14/2026 End: 01-31-2026 XR Pelvis and Hip - right AP and Lateral frog XR HIP GENERAL 3V PELV/AP/LAT RIGHT Radiology Routine Pain in right hip 1 Occurrences starting 01/01/2025 until 01/31/2026 [facility] Work Phone: Comment on above: 1 Occurrences starting 01/01/2025 until 01/31/2026 XR Pelvis and Hip - right AP and Lateral frog XR HIP GENERAL 3V PELV/AP/LAT RIGHT Radiology Routine Pain in right hip 01/05/2025 3:14 PM EDT [facility] Immunizations Immunization Date Immunization Notes Care Provider Fa jasmin 07-07-2022 influenza virus vaccine, unspecified formulation Tiffany Might HOME SERVICE ADVISOR - [employer] Work Phone: [facility] [employer] Work Phone: 07-07-2022 influenza, injectable, quadrivalent, preservative free Tiffany Might HOME SERVICE ADVISOR - [employer] Work Phone: [facility] [employer] Work Phone: 02-25-2021 SARS-CoV-2 (COVID-19 ) mRNA BNT-162b2 vax Malaika Lan [facility] Comment on above: Result Comment: 2022: TPVAL 02-04-2021 SARS-CoV-2 (COVID-19 ) mRNA BNT-162b2 okx Malaika Lan [facility] Comment on above: Result Comment: 2022: TPVAL 07-02-2020 Influenza, injectable, Madin [place] Canine Kidney, preservative free, quadrivalent Tiffany Might HOME SERVICE ADVISOR - [employer] Work Phone: [employer] Work Phone: 07-02-2020 influenza virus vaccine, unspecified formulation Yas Serrano MD Work Phone: [facility] 07-14-2019 influenza virus vaccine, unspecified formulation Malaika aLn [facility] 07-14-2019 influenza, injectable, quadrivalent, contains preservative Tiffany Might HOME SERVICE ADVISOR - [employer] Work Phone: [facility] 07-14-2019 influenza, seasonal, injectable Tiffany Might HOME SERVICE ADVISOR - [employer] Work Phone: [facility]NAL[facility] HAMMON[facility] Work Phone: Payers Date Payer Category Payer Commercial Managed C are - POS [employer]ET[employer] [id number] 11-08-2023 Managed Care HMO (unspecified) AETNA AETNA [id number] 11/08/2023-Present [address] [place] [address] HMO [id number] 11-08-2023 Private Health Insurance AETNA AETNA POS [id number] 11/08/2023-Present [phone] [address] [place] [address] [id number] 2.7.3.545385.315 11-08-2023 Private Health Insurance [id number] 1.2.840.658142.1.13.239. 2.7.3.648396.315 09-01-2023 Unknown GENERIC AUTO INS URANCE GENERIC AUTO INSURANCE [id number] 09/01/2023-Present [address] [place] [address] [phone] 1.2.840.247979.1.13.239. 2.7.3.967264.315 10-11-2022 Medicaid [id number] 1.2.840.056249.1.13.239. 2.7.3.544433.315 10-11-2022 Medicaid [id number]. 1.13.172. 2.7.3.164955.315 01-18-2021 Unknown 10-03-2018 Private Health Insurance [id number] 09-10-2018 Medicaid [id number]. 2.7.3.316686.315 02-08-2018 Unknown [id number] 11-08-2017 Medicaid [id number] 1985 Unknown [id number] 2.16.840.1.932493.3.579. 2.754 1985 Unknown [id number] 2.16840.1.341192.3.579. 2.754 1985 Unknown [id number] 2.16840.1.636430.3.579. 2.754 1985 Unknown [id number] 2.16.840.1.248593.3.579. 2.903 1985 Unknown [id number] 2.16.840.1.945062.3.579. 2.903 1985 Unknown [id number] 2.16.840.1.903570.3.579. 2.593 1985 Unknown [id number] 2.16.840.1.596104.3.579. 2.593 1985 Unknown [id number] 2.16.840.1.709195.3.579. 2.593 1985 Unknown [id number] 2.16.840.1.708447.3.579. 2.593 1985 Unknown [id number] 2.16.840.1.126634.3.579. 2.593 1985 Unknown [id number] 2.16.840.1.627981.3.579. 2.593 1985 Unknown [id number] 2.16.840.1.301616.3.579. 2.593 1985 Unknown [id number] 2.16.840.1.998050.3.579. 2.593 1985 Unknown [id number] 2.16.840.1.761613.3.579. 2.196 1985 Unknown [id number] 2.16.840.1.960556.3.579. 2.196 1985 Unknown [id number] 2.16.840.1.674296.3.579. 2.196 1985 Unknown [id number] 2.16.840.1.728953.3.579. 2.196 1985 Unknown [id number] 2.16.840.1.569123.3.579. 2. 1985 Unknown [id number] 2.16.840.1.030170.3.579. 2.196 1985 Unknown [id number] 2.16.840.1.527129.3.579. 2.196 1985 Unknown [id number] 2.16.840.1.504783.3.579. 2.196 1985 Unknown [id number] 2.16.840.1.774738.3.579. 2. 1985 Unknown [id number] 2.16.840.1.535107.3.579. 2.196 1985 Unknown [id number] 2.16.840.1.094576.3.579. 2.196 1985 Unknown [id number] 2.16.840.1.346547.3.579. 2.196 1985 Unknown [id number] 2.16.840.1.941278.3.579. 2.93 1985 Unknown [id number] 2.16.840.1.256593.3.579. 2.1285 1985 Unknown [id number] 2.16.840.1.230534.3.579. 2.1285 1985 Unknown [id number] 2.16.840.1.749362.3.579. 2.1285 1985 Unknown [id number] 2.16.840.1.626622.3.579. 2.1285 1985 Unknown [id number] 2.16.840.1.149072.3.579. 2.1285 1985 Unknown [id number] 2.16.840.1.077606.3.579. 2.1285 1985 Unknown [id number] 2.16.840.1.197860.3.579. 2.1285 1985 Unknown [id number] 2.16.840.1.517878.3.579. 2.1285 1985 Unknown [id number] 2.16.840.1.010813.3.579. 2.1285 1985 Unknown [id number] 2.16.840.1.806805.3.579. 2. 1985 Unknown [id number] 2.16.840.1.398740.3.579. 2. 1985 Unknown [id number] 2.16.840.1.621251.3.579. 2. 1985 Unknown [id number] 2.16.840.1.695292.3.579. 2. 1985 Unknown [id number] 2.16.840.1.440225.3.579. 2. 1985 Unknown [id number] 2.16.840.1.602759.3.579. 2. 1985 Unknown [id number] 2.16.840.1.325424.3.579. 2. 1985 Unknown [id number] 2.16.840.1.092204.3.579. 2 1985 Unknown [id number] 2.16.840.1.204602.3.579. 2 1985 Unknown [id number] 2.16.840.1.530607.3.579. 2 1985 Unknown [id number] 2.16.840.1.665726.3.579. 2 1985 Unknown [id number] 2.16.840.1.682078.3.579. 2 1985 Unknown [id number] 2.16.840.1.324235.3.579. 2 1985 Unknown [id number] 2.16.840.1.675885.3.579. 2 1985 Unknown [id number] 2.16.840.1.455825.3.579. 1985 Unknown [id number] 2.16.840.1.820253.3.579. 2 1985 Unknown [id number] 2.16.840.1.916696.3.579. 1985 Unknown [id number] 2.16.840.1.875371.3.579. 2 1985 Unknown [id number] 2.16.840.1.106109.3.579. 2 1985 Unknown [id number] 2.16.840.1.013924.3.579. 2 1985 Unknown [id number] 2.16.840.1.560709.3.579. 2 1985 Unknown [id number] 2.16.840.1.809412.3.579. 2 1985 Unknown [id number] 2.16.840.1.402991.3.579. 2 1985 Unknown [id number] 2.16.840.1.683557.3.579. 2.727 1985 Unknown [id number] 2.16.840.1.901509.3.579. 2. 1985 Unknown [id number] 2.16.840.1.787332.3.579. 2. 1985 Unknown [id number] 2.16.840.1.817160.3.579. 2. 1985 Unknown [id number] 2.16.840.1.867191.3.579. 2. 1985 Unknown [id number] 2.16.840.1.662690.3.579. 2. 1985 Unknown [id number] 2.16.840.1.153920.3.579. 2.1258 1985 Unknown [id number] 2.16.840.1.834021.3.579. 2.1258 1985 Unknown [id number] 2.16.840.1.407791.3.579. 2.1258 1985 Unknown [id number] 2.16.840.1.689754.3.579. 2.1258 1985 Unknown [id number] 2.16.840.1.949392.3.579. 2.1258 1985 Unknown [id number] 2.16.840.1.996025.3.579. 2. 1985 Unknown [id number] 2.16.840.1.739684.3.579. 2.173 1985 Unknown [id number] 2.16.840.1.954011.3.579. 2. 1985 Unknown [id number] 2.16.840.1.325990.3.579. 2.173 1985 Unknown [id number] 2.16.840.1.714433.3.579. 2. 1985 Unknown [id number] 2.16.840.1.909449.3.579. 2.173 1985 Unknown [id number] 2.16.840.1.936698.3.579. 2.173 1985 Unknown [id number] 2.16.840.1.971893.3.579. 2.173 1985 Unknown [id number] 2.16.840.1.408768.3.579. 2.173 1985 Unknown [id number] 2.16.840.1.128637.3.579. 2.173 1985 Unknown [id number] 2.16.840.1.945450.3.579. 2.173 1985 Unknown [id number] 2.16.840.1.509451.3.579. 2.173 1985 Unknown [id number] 2.16.840.1.415896.3.579. 2.173 1985 Unknown [id number] 2.16.840.1.888036.3.579. 2.173 1985 Unknown [id number] 2.16.840.1.922680.3.579. 2.173 1985 Unknown [id number] 2.16.840.1.774253.3.579. 2.173 1985 Unknown [id number] 2.16.840.1.875189.3.579. 2.173 1985 Unknown [id number] 2.16.840.1.702317.3.579. 2.173 1985 Unknown [id number] 2.16.840.1.390806.3.579. 2.173 1985 Unknown [id number] 2.16.840.1.115891.3.579. 2.173 1985 Unknown [id number] 2.16.840.1.597715.3.579. 2.173 1985 Unknown [id number] 2.16.840.1.697237.3.579. 2.173 1985 Unknown [id number] 2.16.840.1.661783.3.579. 2.173 1985 Unknown [id number] 2.16.840.1.571487.3.579. 2.173 1985 Unknown [id number] 2.16.840.1.311312.3.579. 2.173 1985 Unknown [id number] 2.16.840.1.158893.3.579. 2.173 1985 Unknown [id number] 2.16.840.1.032856.3.579. 2.173 1985 Unknown [id number] 2.16.840.1.078607.3.579. 2.173 1985 Unknown [id number] 2.16.840.1.004510.3.579. 2. 1985 Unknown [id number] 2.16.840.1.486102.3.579. 2. 1985 Unknown [id number] 2.16.840.1.552916.3.579. 2.72 1985 Unknown [id number] 2.16.840.1.875429.3.579. 2. 1985 Unknown [id number] 2.16.840.1.479832.3.579. 2. 1985 Unknown [id number] 2.16.840.1.985707.3.579. 2. 1985 Unknown [id number] 2.16.840.1.674599.3.579. 2.727 09-10-1959 Unknown [id number] 1.2.840.893888.1.13.239. 2.7.3.633501.315 Self-pay Social History Date Type Detail Facility Start: 08-31-2019 End: 12-15-[address] [facility] Never smoker [facility] Start: 08-31-2019 End: 02-19-2025 Alcohol intake Lifetime non-drinker (finding) [facility] Start: 08-29-2019 End: 06-13-2022 History SDOH Alcohol Frequency 1 [facility] Start: 1985 Sex Assigned At Not on file [place] Start: 01-29-2020 End: 12-19-2024 Alcohol intake Current non-drinker of alcohol (finding) [place] Exposure to SARS-CoV-2 (event) Unable to assess [place] Start: 01-29-2020 End: 12-15-2024 Tobacco use and exposure Never used [place] Start: 06-15-2022 End: 12-16-2022 Exposure to SARS-CoV-2 (event) Not sure [place] Start: 04-11-2022 End: 04-06-2025 Alcohol intake Ex-drinker (finding) [facility] Start: 06-13-2022 History SDOH Financial 5 [facility] [employer] Work Phone: Start: 1985 Sex Assigned At [facility] Start: 10-11-2024 Tobacco smoking status Never [facility] Start: 08-24-2023 End: 12-15-2024 Sex Assigned At Female [facility] Start: 08-24-2023 End: 12-15-2024 History of Social function [facility] [employer] [facility] Has the electric, gas, oil, or water company threatened to shut off services in your home in past 12Mo No Smart Voicemail How often to you hav e a drink containing alcohol? Never Smart Voicemail (I/We) worried whether (my/our) food would run out before (I/we) got money to buy more. Never true Smart Vo[employer] Start: 01-25-2022 Gender identity Identifies as female gender (finding) Smart Voicemail Start: 01-25-2022 Sexual orientation Heterosexual (fin bowen) Smart Voicemail Start: 10-20-2012 End: 04-15-2015 Sex Female (finding) [facility] NEGATED: Highlighted rowStart: NINF History of tobacco use Passive smoker [facility] Medical Equipment Procedure Code Equipment Code Equipment Origin al Text Equipment Identifier Dates Allograft Si Int ra Art Fus 11mm - [id number] Start: 08-24-2023 Allograft Si Int ra Art Fus 11mm - [id number] Start: 08-24-2023 Q-Fix Knotless All-Suture [place] 1.8mm W/1 Ultrabraid Blue [id number] Start: 02-23-2025 Q-Fix Knotless All-Suture [place] 1.8mm W/1 Ultrabraid Blue [id number] Start: 02-23-2025 Q-Fix Knotless All-Suture [place] 1.8mm W/1 Ultrabraid Blue [id number] Start: 02-23-2025 Functional Status Date Assessment Result Facility 06-04-2023 Functional Status No [facility] Clinical Notes 02-18-2021 to 04-16-2025 Katty Gonzalez - 04/16/2025 2:00 PM EDTASergio lovell - 04/13/2025 2:30 PM EDTPatient Madyson Dudley PA-C - 04/10/2025 1:38 PM EDTFKatty fontanez - 04/07/2025 2:30 PM EDT Note Date & Type Note Facility 04-16-2025 History of Present illness Narrative Physical Therapy [facility] Inpatient/Observation/Outpatient Rehabilitation Date: 04/16/2025 Patient Name: Ashlee Jalloh [] Inpatient Acute/Observation [x] Outpatient : 1985 Plan of Care/Recert ends [] Pt refused/declined therapy at this time due to: [x] Pt cancelled due to: [] No Reason Given [] Sick/ill [x] Other: had a job interview that ran late [] Evaluation held by RN/Provider/Physical Therapist due to: [] High Heart Rate [] High Blood Pressure [] Orthopedic Consult [] Hgb < 7 [] Other: [] Pt ordered brace per physician request: [] Proper fit will be completed and education for wearing/skin checks [] Pt does not require skilled services due to: Therapist/Break Out Man will attempt to see this patient, at our earliest opportunity. Katty Gonzalez Date: 04/16/2025 Cosigned by Sergio Barkley at 04/16/2025 2:09 PM EDT documented in this encounter [facility] 04-14-2025 Note Patient Education ENT Otitis Media, Adult Otitis media is a condition in which the middle ear is red and swollen (inflamed) and full of fluid. The middle ear is the part of the ear that contains bones for hearing as well as air that helps send sounds to the brain. The condition usually goes away on its own. What are the causes? This condition is caused by a blockage in the eustachian tube. This tube connects the middle ear to the back of the nose. It normally allows air into the middle ear. The blockage is caused by fluid or swelling. Problems that can cause blockage include: ??? A cold or infection that affects the nose, mouth, or throat. ??? Allergies. ??? An irritant, such as tobacco smoke. ??? Adenoids that have become large. The adenoids are soft tissue located in the back of the throat, behind the nose and the roof of the mouth. ??? Growth or swelling in the upper part of the throat, just behind the nose (nasopharynx). ??? Damage to the ear caused by a change in pressure. This is called barotrauma. What increases the risk? You are more likely to develop this condition if you: ??? Smoke or are exposed to tobacco smoke. ??? Have an opening in the roof of your mouth (cleft palate). ??? Have acid reflux. ??? Have problems in your body's defense system (immune system). What are the signs or symptoms? Symptoms of this condition include: ??? Ear pain. ??? Fever. ??? Problems with hearing. ??? Being tired. ??? Fluid leaking from the ear. ??? Ringing in the ear. How is this treated? This condition can go away on its own within 3?5 days. But if the condition is caused by germs (bacteria) and does not go away on its own, or if it keeps coming back, your doctor may: ??? Give you antibiotic medicines. ??? Give you medicines for pain. Follow these instructions at home: ??? Take slap-nih-pjbeexv and prescription medicines only as told by your doctor. ??? If you were prescribed an antibiotic medicine, take it as told by your doctor. Do not stop taking it even if you start to feel better. ??? Keep all follow-up visits. Contact a doctor if: ??? You have bleeding from your nose. ??? There is a lump on your neck. ??? You are not feeling better in 5 days. ??? You feel worse instead of better. Get help right away if: ??? You have pain that is not helped with medicine. ??? You have swelling, redness, or pain around your ear. ??? You get a stiff neck. ??? You cannot move part of your face (paralysis). ??? You notice that the bone behind your ear hurts when you touch it. ??? You get a very bad headache. Summary ??? Otitis media means that the middle ear is red, swollen, and full of fluid. ??? This condition usually goes away on its own. ??? If the problem does not go away, treatment may be needed. You may be given medicines to treat the infection or to treat your pain. ??? If you were prescribed an antibiotic medicine, take it as told by your doctor. Do not stop taking it even if you start to feel better. ??? Keep all follow-up visits. This information is not intended to replace advice given to you by your health care provider. Make sure you discuss any questions you have with your health care provider. Document Revised: 12/05/2021 Document Reviewed: 12/05/2021 [employer] Patient Education ? 2023 [employer]. [facility] 04-13-2025 History of Present illness Narrative [facility] Outpatient Physical Therapy Daily Note Patient: Ashlee Jalloh : 1985 CSN #: [id number] Referring Physician: Rishabh Huang MD Date: 04/13/2025 Diagnosis: M24.259 Treatment Diagnosis: R hip labral repair PT Insurance Information: [place] Total # of Visits Approved: 10 Per Physician Order Total # of Visits to Date: 10 No Show: 0 Canceled Appointment: 2 04/21/25 Plan of Care/Recert Due Pre-Treatment Pain: 3/10 Subjective: Pt states her pain is 3/10. States she racked the lawn this weekend and has a little more soreness Exercises: Exercise 2: * FOLLOW PROTOCOL IN BIN Exercise 3: L3.5 x10min Exercise 5: YTB hip abd/ext x 15 each // mini squat x 10 Exercise 6: YTB standing alt november x 12 each Exercise 7: YTB lateral walk at counter x 6 laps Exercise 9: STS 2 x 15 10# KB Exercise 11: 15# suitcase carry november x 2 gym length each hand Exercise 12: hallie retro walk 25# x 8 // lateral 15# x 3 each Assessment Assessment: Pt reports with a mild increase in soft tissue soreness from racking the yard ye. No change in pt performance with functional strengthening. Soreness remained abot the same following session. HEP reviewed Activity Tolerance Activity Tolerance: Patient tolerated treatment well Patient Education Patient Education: HEP Pt verbalized/demonstrated good understanding: [x] Yes [] No, pt required further clarification. Post Treatment Pain: 210 Plan Plan Frequency: 2 Plan weeks: 4 Goals (Total # of Visits to Date: 10) Short Term Goals Time Frame for Short Term Goals: 2 weeks Short Term Goal 1: Pt will be inititated with HEP. -met Short Term Goal 2: Pt will tolerate 30-40 minutes of ther ex to improve function with ADL's. - met Hollow Tile Partition Erector Goals Time Frame for Alf Goals : 6 weeks Alf Goal 1: Pt will independant and compliant with HEP to maintain functional gains made at therapy. - progressing Hollow Tile Partition Erector Goal 2: Pt will report 2/10 or less R hip pain on average to facilitate completion of ADL's. - progressing 3/10 average Hollow Tile Partition Erector Goal 3: Pt to improve R hip strength to 4+/5 grossly for ease with transfers and prolonged ambulation. - progressing 4-/5 grossly Hollow Tile Partition Erector Goal 4: Pt to improve R hip flexion/abd to be equal to L for improved gait mechanics. - progressing hip flexion 90* abd: 23* Hollow Tile Partition Erector Goal 5: Pt to report 70% improvement in symptoms to display increased QOL. - MET 85% Minutes Tracking: Time In: 1430 Time Out: 1511 Minutes: 41 Timed Code Treatment Minutes: 40 Minutes Sergio Alcantar Date: 04/13/2025 Cosigned by Malaika Hernández, PT at 04/13/2025 3:18 PM EDT documented in this encounter [facility] 04-10-2025 Instructions Madyson Villafuerte PA-C - 04/10/2025 1:49 PM EDT Advance activity per PT guidance. Pool per tolerance - NO swim strokes, scissor kick or treading water No impact and explosive/ ballistic activities (running, jumping, forced extremes of motion) No deep (> 90 degrees) squatting Lifting restriction max 30 pounds rarely documented in this encounter [facility] 04-10-2025 Note HNO ID: [id number] Author: MADYSON VILLAFUERTE PA-C Service: ? Author Type: Physician Break Out Man Type: Progress Notes Filed: 04/10/2025 13:49 Note Text: POST OP DISTANCE HEALTH VIRTUAL VISIT DOCUMENTATION NOTE I have communicated my name and active licensure. The patient's identity and physical location were verified at the time of this visit. Either the patient or their legal customer assistance representative has been informed of the risks and benefits of -- and alternatives to -- treatment through a remote evaluation and consents to proceed with the evaluation remotely. Distance Health Platform: vushaper Virtual Visit People present : Madyson Villafuerte PA-C and Patient Time Spent for video encounter, record review and documentation: 11 minutes CHIEF COMPLAINT (CC): Post op HISTORY OF PRESENT ILLNESS (HPI): Ashlee presents 6 weeks s/p right hip arthroscopy No systemic complaints. Pain: denies PT going well - advanced to closed chain exercises EXAMINATION: There is no height or weight on file to calculate BMI. This examination was performed via video enabled technology. Patient does not appear to be in any acute distress Patient is alert and oriented with normal affect Right Hip Examination Inspection: Reports anterior portal incision central dehiscence almost completely healed, denies drainage Range of motion (patient performed these range of motions with my instruction via the video enabled technology): Hip flexion 95, IR 10, ER 40 Palpation (patient localized these landmarks with my instruction via the video enabled technology): Special testing (patient performed these maneuvers on themselves with my instruction via the video enabled technology): FADIR: end range tightness DOROTHY: LOM Neurologic: Intact sensation testing of the lower extremities with no dysesthesia Impression: 6 weeks s/p right hip arthroscopy Plan: Discussed Advance PT and activities per protocol. Precautions reinforced. No impact activities Follow-up: [address] Glen Villafuerte, MS, MELVIN [facility] 04-10-2025 History of Present illness Narrative POST OP DISTANCE HEALTH VIRTUAL VISIT DOCUMENTATION NOTE I have communicated my name and active licensure. The patient's identity and physical location were verified at the time of this visit. Either the patient or their legal customer assistance representative has been informed of the risks and benefits of -- and alternatives to -- treatment through a remote evaluation and consents to proceed with the evaluation remotely. [employer] Platform: vushaper Virtual Visit People present : Madyson Villafuerte PA-C and Patient Time Spent for video encounter, record review and documentation: 11 minutes CHIEF COMPLAINT (CC): Post op HISTORY OF PRESENT ILLNESS (HPI): Ashlee presents 6 weeks s/p right hip arthroscopy No systemic complaints. Pain: denies PT going well - advanced to closed chain exercises EXAMINATION: There is no height or weight on file to calculate BMI. This examination was performed via video enabled technology. Patient does not appear to be in any acute distress Patient is alert and oriented with normal affect Right Hip Examination Inspection: Reports anterior portal incision central dehiscence almost completely healed, denies drainage Range of motion (patient performed these range of motions with my instruction via the video enabled technology): Hip flexion 95, IR 10, ER 40 Palpation (patient localized these landmarks with my instruction via the video enabled technology): Special testing (patient performed these maneuvers on themselves with my instruction via the video enabled technology): FADIR: end range tightness DOROTHY: LOM Neurologic: Intact sensation testing of the lower extremities with no dysesthesia Impression: 6 weeks s/p right hip arthroscopy Plan: Discussed Advance PT and activities per protocol. Precautions reinforced. No impact activities Follow-up: [address] Glen Villafuerte, MS, PAElielC documented in this encounter [facility] 04-07-2025 History of Present illness Narrative Physical Therapy [facility] Inpatient/Observation/Outpatient Rehabilitation Date: 04/07/2025 Patient Name: Ashlee Jalloh [] Inpatient Acute/Observation [x] Outpatient : 1985 Plan of Care/Recert ends [] Pt refused/declined therapy at this time due to: [x] Pt cancelled due to: [] No Reason Given [] Sick/ill [x] Other: boyfriend isn't home with the car yet [] Evaluation held by RN/Provider/Physical Therapist due to: [] High Heart Rate [] High Blood Pressure [] Orthopedic Consult [] Hgb < 7 [] Other: [] Pt ordered brace per physician request: [] Proper fit will be completed and education for wearing/skin checks [] Pt does not require skilled services due to: Therapist/Break Out Man will attempt to see this patient, at our earliest opportunity. Katty Gonzalez Date: 04/07/2025 Cosigned by Malaika Hernández, PT at 04/07/2025 2:29 PM EDT documented in this encounter [facility] 04-06-2025 History of Present illness Narrative Images from the original note were not included. Pain Management Follow Up Visit Date: April 06, 2025 SUBJECTIVE Ashlee Jalloh is a 40-year-old female with a history of multiple back surgeries and fibromyalgia, presenting for follow-up on chronic back pain and diffuse pain management. Ashlee was initially seen by Dr. Rishabh Huang on 01/05/25 for lower back pain and was prescribed Lyrica 50 mg at night for 3-5 days, with instructions to titrate to 2-3 times a day as tolerated. She was also referred to pain psychology and a comprehensive pain recovery program, and water therapy was recommended. Since then, she has undergone arthroscopic labral tear repair of the right hip, femoroplasty, acetabuloplasty, and capsular closure on 02/23/[address] Encarnacion. She is also under the care of Dr. Gutierrez from physical medicine and rehab, with her last visit on 03/04/25. X-rays were ordered, and [facility]. Her last prescription for pregabalin 50 mg was filled on 03/25/25 for 90 tablets for 30 days, as prescribed by Dr. Huang. She also had a short prescription for oxycodone on 02/23/25 for 10 tablets for 3 days post-hip surgery. Ashlee reports that her hip pain has improved since the surgery, but she still experiences occasional pain. She does not feel any significant improvement in her diffuse pain since starting Lyrica and reports no side effects from the medication. Her back pain is described as constant and has been present since her first back surgery in June 2021, with subsequent surgeries in November 2021 and August 2023. She describes the pain as excruciating when working, particularly when bending or lifting. She experiences stiffness in her back, especially when getting up from a seated position, and reports that her back feels like somebody's trying to pull it out of me. She also experiences occasional radiation of pain to her posterior thighs, knees, and ankles, with numbness and tingling in both legs, varying in intensity and location. Ashlee reports that her back pain is worse with bending and describes a sensation of her back giving out when bending down and a searing pain when coming back up. She also experiences episodes of her legs giving out at work, occurring 1-2 times per shift, and occasionally at home on the stairs. She has not experienced any falls but reports that her legs feel wobbly when her back pain is severe. She is currently doing land-based physical therapy and reports good range of motion. She is not taking baby aspirin or fish oil and stopped taking naproxen after her dog destroyed the bottle. She requests a refill of naproxen 500 mg, as she was advised to continue taking it to minimize bone scarring and inflammation. She denies fever, chills, chest pain, shortness of breath, loss of bowel or bladder control, or dizziness. Information copied from last Pain Management note dated 01/05/25 with provider: Rishabh Huang MD Assessment & Plan January 05, 2025 The primary encounter diagnosis was Fibromyalgia. Diagnoses of Diffuse pain, Back pain with history of spinal surgery, Status post lumbar spinal fusion, Chronic pain syndrome, and History of suicide attempt were also pertinent to this visit. Ashlee is a 39-year-old female with a history of multiple back surgeries, presenting with chronic pain and recent fibromyalgia diagnosis. Ashlee reports chronic pain in the hips, neck, and back, with no areas of the body free from pain. She has undergone multiple back surgeries, L4-5 fusion and SI joint fusion, without relief. The pain began in late 2018 to early 2019, initially presenting as migraines. A spine x-ray revealed a fusion of the tailbone and spine, initially suspected to be ankylosing spondylitis, but tests were negative. She subsequently developed a herniated disc at L4-L5, for which a discectomy was performed instead of removing the disc. This was followed by a fusion surgery, after which she experienced significant stress. Ashlee also reports a tear and bone spurs in the hip, with knees starting to go bone on bone. 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 An MRI was performed, but surgery was deemed unnecessary due to scarring. Both knees are affected similarly. Ashlee has a recent diagnosis of fibromyalgia, which she describes as causing widespread pain and touch sensitivity, particularly in the forearms. She has had this sensitivity since childhood, but it has worsened in recent years. She is unable to wear anything on her arms for extended periods and has medical clearance to wear a jacket with sleeves rolled up at work. She notes that her pain varies daily and is affected by weather, stress, and physical activity. She has not yet found a balance in managing her symptoms. She was supposed to have hip replacement surgery in May, but it was delayed due to insurance issues. Her current doctor is hesitant to perform the surgery due to her age and is considering a scope instead. 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 Ashlee has tried various medications, including gabapentin at a low dose of 100 mg once daily for 5 days, prescribed by Ismael Bravo, without relief. She reports being highly sensitive to medications, experiencing dizziness and episodes of conscious blackouts where she loses vision but can still feel, hear, and move. She has had these episodes while walking, leading to falls. She is unable to take medications for migraines, depression, PTSD, or anxiety due to these side effects. She has also experienced adverse effects from nortriptyline and Trokendi, which caused dry mouth and speech issues. She has tried physical therapy multiple times but finds it too aggressive and painful, often leaving sessions early. She has not tried aqua therapy but expresses interest in it. She lives in [place], about an hour and a half away, making frequent visits challenging. Ashlee has a history of severe depression and has been flagged as a suicide risk. She attempted suicide twice at age 14 and has a history of s, elf-harm. She is not currently seeing a psychiatrist but has a referral pending. She reports that her previous psychiatrist did not address the root causes of her depression, which she attributes to a difficult past. She states that she will not attempt suicide again due to her children but continues to struggle with self-harm as a coping mechanism. # Fibromyalgia (M79.7) # Diffuse pain (R52) # Chronic pain syndrome (G89.4) Recent diagnosis of fibromyalgia with long standing history of widespread pain and hypersensitivity to touch. Pain is exacerbated by various factors including weather, stress, and physical activity. Patient has tried some neuropathic agents and has a history of poor medication tolerance. Chronic pain is significantly impacting quality of life and mental health. - Educated patient on the nature of fibromyalgia, emphasizing the importance of a multidisciplinary approach to management. - Initiated Lyrica 50 mg at night for 3-5 days, then add a morning dose for 3-5 days, followed by an afternoon dose, ultimately taking it TID. - Referred to pain psychologist and comprehensive pain recovery program, which includes considerations for ketamine infusions and various psychotherapy-based programs. - Recommended aqua therapy to facilitate movement with reduced pain. - Advised patient to follow up with psychiatry for further evaluation and management of chronic pain and associated mental health issues. - Scheduled follow-up with Yessica in 3 months to assess response to Lyrica and overall progress. # Back pain with history of spinal surgery (M54.9) # Status post lumbar spinal fusion (Z98.1) Multiple back surgeries including SI joint fusion and lumbar spinal fusion with persistent back pain. Limited range of motion and tenderness noted diffusely on physical exam, no worrying signs or symptoms on exam. Previous surgeries have not alleviated pain. - Discussed the importance of ongoing physical therapy to maintain and improve mobility. - Recommended continuation of prescribed exercises and consideration of alternative therapies such as aqua therapy. - Advised patient to monitor for any changes in pain or mobility and report back if symptoms worsen. # History of suicide attempt (Z91.51) Patient has a history of severe depression, anxiety, and PTSD with previous suicide attempts and self-harm behaviors. Current mental health status is fragile, with chronic pain contributing to depressive symptoms. - Strongly recommended re-engagement with psychiatric care for comprehensive mental health management. - Advised patient to contact central scheduling to expedite appointment with psychiatry. - Emphasized the importance of addressing underlying mental health issues to improve overall well-being and pain management. Questionnaires: Patient Entered Questionnaires PROMIS: 03/03/2025 PROMIS CAT Pain Interference PROMIS Pain Interference T-Score (range: 10 - 90) 67 (moderate) PROMIS Pain Interference Percentile 4 03/03/2025 Spine Questions Pain Location: Lower back Pain Duration: 1 to 5 years Pain over last 6 months: Every day or nearly every day in the past 6 months Symptoms from neck/cervical spine: Yes Employment Status: Working now Involved in law suit/legal claim: No 03/03/2025 Spine Red Flags Any type of cancer: No Unexplained fever: No Bowel or bladder disfunction: No Unintentional weight loss: No Osteoporosis: No 03/03/2025 Neck Questionnaires Benzel Modified EDMUNDO Score 16 (Mild Myelopathy Symptoms) PROMIS Score Percentiles 01/05/2025 03/03/2025 04/10/2025 Physical Health Physical Function Percentile 7 8 21* Sleep Percentile 4 Fatigue Percentile 1 Pain Interference Percentile 1 4 03/03/2025 PROMIS SOCIAL ROLE SCORE Social Role Satisfaction Percentile 21* 01/05/2025 04/10/2025 PROMIS Global Health Scale Physical Health Percentile 0 7 Mental Health Percentile 1 5 Patient-reported Percentiles provide an indication of how the patient's score ranks in relation to the general population. Higher percentile rankings indicate better function/quality of life. 50th percentile is the average of the general population and indicates half of respondents had a worse score. Depression Screenin01/05/2025 03/03/2025 04/10/2025 PHQ-9 Score 22 13 17 04/10/2025 03/03/2025 01/05/2025 PHQ-9 Self Harm Question 9 Several days Several days Several days PHQ-9 Self-Harm (Item 9) response options: 0 Not at all 1 Several days 2 More than half the days 3 Nearly every day PHQ-9 Levels: 0-4 Minimal depression 5-9 Mild depression 10-14 Moderate depression 15-19 Moderately severe depression 20-27 Severe depression PHQ-9 Score 04/10/2025 17 03/03/2025 13 01/05/2025 22 (0-4) minimal depression, (5-9) mild depression, (10-14) moderate depression, (15-19) moderately severe depression, (20-27) severe depression Physical Examination: BP 102/62 Pulse 96 Wt 195 lb 12.3 oz (88.8kg) General: Well appearing, well dressed Mental Status: Alert and Oriented x3. Speech is clear. Mood & Affect: Even Pulmonary: Breathing easily without tachypnea or bradypnea. Ambulation: Gait is mildly antalgic Neuro/Musculoskeletal: Diffuse musculoskeletal tenderness with palpation. +Sensory Exam Right LE: Intact Left LE: Intact Imaging: MRI Spine Report MRI LUMBAR SPINE WO/W IVCON Exam End: 09/01/2021 2:43 PM (Final result) Narrative: EXAMINATION: MRI OF THE LUMBAR SPINE WITHOUT AND WITH CONTRAST 09/01/2021 1:52 pm TECHNIQUE: Multiplanar multisequence MRI of the lumbar spine was performed without and with the administration of intravenous contrast. COMPARISON: None. HISTORY: ORDERING SYSTEM PROVIDED HISTORY: Aftercare following surgery of the musculoskeletal system dispatcher PROVIDED HISTORY: Is the patient ?->No FINDINGS: [...] recess stenosis. Moderate left-sided neural foraminal stenosis. Impression: 1. Decompressive laminectomies at L4-5. 2. Left [...] Please correlate with surgical history. RECOMMENDATIONS: Unavailable EMG 03/25/25 Study Interpretation Electrodiagnostic examination of the right upper extremity with additional nerve conduction studies of the left upper extremity reveals changes most consistent with the followin. Right median neuropathy at or distal to the wrist, consistent with a clinical diagnosis of carpal tunnel syndrome, mild in degree electrically. 2. No evidence of a right cervical radiculopathy. 3. No evidence of a left median neuropathy. HPI: Recording using [employer] software for draft documentation of the visit was discussed with the patient/authorized customer assistance representative; all questions welcomed and answered. Patient/authorized customer assistance representative agreed to proceed Ashlee Jalloh is a 40-year-old female with a history of multiple back surgeries and fibromyalgia, presenting for follow-up on chronic back pain and diffuse pain management. Ashlee was initially seen by Dr. Rishabh Huang on 01/05/25 for lower back pain and was prescribed Lyrica 50 mg at night for 3-5 days, with instructions to titrate to 2-3 times a day as tolerated. She was also referred to pain psychology and a comprehensive pain recovery program, and water therapy was recommended. Since then, she has undergone arthroscopic labral tear repair of the right hip, femoroplasty, acetabuloplasty, and capsular closure on 02/23/[address] Encarnacion. She is also under the care of Dr. Johnathan Haas from physical medicine and rehab, with her last visit on 03/04/25. X-rays were ordered, and [facility]. Her last prescription for pregabalin 50 mg was filled on 03/25/25 for 90 tablets for 30 days, as prescribed by Dr. Huang. She also had a short prescription for oxycodone on 02/23/25 for 10 tablets for 3 days post-hip surgery. Ashlee reports that her hip pain has improved since the surgery, but she still experiences occasional pain. She does not feel any significant improvement in her diffuse pain since starting Lyrica and reports no side effects from the medication. Her back pain is described as constant and has been present since her first back surgery in June 2021, with subsequent surgeries in November 2021 and August 2023. She describes the pain as excruciating when working, particularly when bending or lifting. She experiences stiffness in her back, especially when getting up from a seated position, and reports that her back feels like somebody's trying to pull it out of me. She also experiences occasional radiation of pain to her posterior thighs, knees, and ankles, with numbness and tingling in both legs, varying in intensity and location. Ashlee reports that her pain is worse with bending and describes a sensation of her back giving out when bending down and a searing pain when coming back up. She also experiences episodes of her legs giving out at work, occurring 1-2 times per shift, and occasionally at home on the stairs. She rates her back jordan from 2-3/10 and reports it goes up to a 10/10 rarely. She has not experienced any falls but reports that her legs feel wobbly when her back pain is severe. She is currently doing land-based physical therapy and reports good range of motion. She is not taking baby aspirin or fish oil and stopped taking naproxen after her dog destroyed the bottle. She requests a refill of naproxen 500 mg, as she was advised to continue taking it to minimize inflammation. She denies fever, chills, chest pain, shortness of breath, loss of bowel or bladder control, or dizziness. ASSESSMENT & PLAN: # Fibromyalgia (M79.7) Currently on Lyrica 50 mg TID with no significant improvement in diffuse pain. No reported side effects from Lyrica. - Increased Lyrica to 75 mg TID. - Continue monitoring for any side effects or changes in pain levels. # Back pain with history of spinal surgery (M54.9) # Status post lumbar spinal fusion (Z98.1) Chronic back pain with multiple spinal surgeries: first in June 2021, second in November 2021, and third in August 2023. Pain described as constant since the first surgery, with episodes of radicular pain to posterior thighs and occasional leg weakness. Pain exacerbated by bending and prolonged upright positions. Recent flexion-extension X-ray in August 2023 showed no abnormal movement. - Prescribed Naproxen 500 mg, 60 tablets for 30 days. - Continue physical therapy. - Reassess in 3 months. # Status post hip surgery (Z98.890) Underwent arthroscopic labral tear repair, femoroplasty, acetabuloplasty, and capsular closure on 02/23/25. Incision site still healing, delaying return to water therapy. Hip pain improved but still present. - Continue land-based physical therapy. - Monitor incision healing before resuming water therapy. The above plan and management options were discussed at length with patient. Patient is in agreement with the above and verbalized understanding. Mynor Glaser PA-C April 06, 2025 documented in this encounter [facility] 04-06-2025 Note HNO ID: [id number] Author: MYNOR GLASER PA-C Service: ? Author Type: Physician Break Out Man Type: Progress Notes Filed: 04/13/2025 12:54 Note Text: Pain Management Follow Up Visit Date: April 06, 2025 SUBJECTIVE Ashlee Jalloh is a 40-year-old female with a history of multiple back surgeries and fibromyalgia, presenting for follow-up on chronic back pain and diffuse pain management. Ashlee was initially seen by Dr. Rishabh Huang on 01/05/25 for lower back pain and was prescribed Lyrica 50 mg at night for 3-5 days, with instructions to titrate to 2-3 times a day as tolerated. She was also referred to pain psychology and a comprehensive pain recovery program, and water therapy was recommended. Since then, she has undergone arthroscopic labral tear repair of the right hip, femoroplasty, acetabuloplasty, and capsular closure on 02/23/[address] Encarnacion. She is also under the care of Dr. Gutierrez from physical medicine and rehab, with her last visit on 03/04/25. X-rays were ordered, and [facility] was [facility]. Her last prescription for pregabalin 50 mg was filled on 03/25/25 for 90 tablets for 30 days, as prescribed by Dr. Huang. She also had a short prescription for oxycodone on 02/23/25 for 10 tablets for 3 days post-hip surgery. Ashlee reports that her hip pain has improved since the surgery, but she still experiences occasional pain. She does not feel any significant improvement in her diffuse pain since starting Lyrica and reports no side effects from the medication. Her back pain is described as constant and has been present since her first back surgery in June 2021, with subsequent surgeries in November 2021 and August 2023. She describes the pain as excruciating when working, particularly when bending or lifting. She experiences stiffness in her back, especially when getting up from a seated position, and reports that her back feels like somebody's trying to pull it out of me. She also experiences occasional radiation of pain to her posterior thighs, knees, and ankles, with numbness and tingling in both legs, varying in intensity and location. Ashlee reports that her back pain is worse with bending and describes a sensation of her back giving out when bending down and a searing pain when coming back up. She also experiences episodes of her legs giving out at work, occurring 1-2 times per shift, and occasionally at home on the stairs. She has not experienced any falls but reports that her legs feel wobbly when her back pain is severe. She is currently doing land-based physical therapy and reports good range of motion. She is not taking baby aspirin or fish oil and stopped taking naproxen after her dog destroyed the bottle. She requests a refill of naproxen 500 mg, as she was advised to continue taking it to minimize bone scarring and inflammation. She denies fever, chills, chest pain, shortness of breath, loss of bowel or bladder control, or dizziness. Information copied from last Pain Management note dated 01/05/25 with provider: Rishabh Huang MD Assessment AND Plan January 05, 2025 The primary encounter diagnosis was Fibromyalgia. Diagnoses of Diffuse pain, Back pain with history of spinal surgery, Status post lumbar spinal fusion, Chronic pain syndrome, and History of suicide attempt were also pertinent to this visit. Ashlee is a 39-year-old female with a history of multiple back surgeries, presenting with chronic pain and recent fibromyalgia diagnosis. Ashlee reports chronic pain in the hips, neck, and back, with no areas of the body free from pain. She has undergone multiple back surgeries, L4-5 fusion and SI joint fusion, without relief. The pain began in late 2018 to early 2019, initially presenting as migraines. A spine x-ray revealed a fusion of the tailbone and spine, initially suspected to be ankylosing spondylitis, but tests were negative. She subsequently developed a herniated disc at L4-L5, for which a discectomy was performed instead of removing the disc. This was followed by a fusion surgery, after which she experienced significant stress. Ashlee also reports a tear and bone spurs in the hip, with knees starting to go bone on bone. 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 An MRI was performed, but surgery was deemed unnecessary due to scarring. Both knees are affected similarly. Ashlee has a recent diagnosis of fibromyalgia, which she describes as causing widespread pain and touch sensitivity, particularly in the forearms. She has had this sensitivity since childhood, but it has worsened in recent years. She is unable to wear anything on her arms for extended periods and has medical clearance to wear a jacket with sleeves rolled up at work. She notes that her pain varies daily and is affected by weather, stress, and physical activity. She has not yet (more content not included)... [facility] Instructions Mynor Glaser PA-C - 04/06/2025 3:51 PM EDT Follow up with Dr. Rishabh Huang in 3 months or sooner if needed. documented in this encounter [facility] 04-01-2025 History of Present illness Narrative [facility] Outpatient Physical Therapy Daily Note Patient: Ashlee Jalloh : 1985 CSN #: [id number] Referring Physician: Rishabh Huang MD Date: 04/01/2025 Diagnosis: M24.259 Treatment Diagnosis: R hip labral repair PT Insurance Information: [facility] medicaid Total # of Visits Approved: 10 Per Physician Order Total # of Visits to Date: 8 No Show: 0 Canceled Appointment: 2 04/21/25 Plan of Care/Recert Due Pre-Treatment Pain: 1/ Subjective: Pt with minimal R hip pain today maybe 1/10 per pt, does have some increased groin pain this date. Exercises: Exercise 3: L3.5 x10min Exercise 5: YTB hip abd/ext x 15 each // mini squat x 10 Exercise 6: YTB standing alt november x 12 each Exercise 7: YTB lateral walk at counter x 6 laps Exercise 9: STS 2 x 10 10# KB Exercise 10: foam 3 way cone tap with intermitent UE support x 1 2 x 6 rounds each Exercise 11: 10# suitcase carry november x 2 gym length each hand Exercise 12: hallie retro walk 25# x 8 // lateral 15# x 3 each Assessment Assessment: Introduced hip stabilization and exercises with increased weight today with good tolerance from pt. Pt requires min verbal and visual cueing to control eccentric and concentric portions of hallie walks to eliminate increased pain in the hip, able to complete with cueing. Progressed STS with 10# KB today with no increased pain. Pt with mild R LE fatigue by end of session. Will continue per tolerance. Activity Tolerance Activity Tolerance: Patient tolerated treatment well Patient Education Patient Education: HEP Pt verbalized/demonstrated good understanding: [x] Yes [] No, pt required further clarification. Post Treatment Pain: 10 Plan Plan Frequency: 2 Plan weeks: 4 Goals (Total # of Visits to Date: 8) Short Term Goals Time Frame for Short Term Goals: 2 weeks Short Term Goal 1: Pt will be inititated with HEP. -met Short Term Goal 2: Pt will tolerate 30-40 minutes of ther ex to improve function with ADL's. - met Alf Goals Time Frame for Hollow Tile Partition Erector Goals : 6 weeks Alf Goal 1: Pt will independant and compliant with HEP to maintain functional gains made at therapy. - progressing Alf Goal 2: Pt will report 2/10 or less R hip pain on average to facilitate completion of ADL's. - progressing 3/10 average Hollow Tile Partition Erector Goal 3: Pt to improve R hip strength to 4+/5 grossly for ease with transfers and prolonged ambulation. - progressing 4-/5 grossly Alf Goal 4: Pt to improve R hip flexion/abd to be equal to L for improved gait mechanics. - progressing hip flexion 90* abd: 23* Alf Goal 5: Pt to report 70% improvement in symptoms to display increased QOL. - MET 85% Minutes Tracking: Time In: 1545 Time Out: 1628 Minutes: 43 Timed Code Treatment Minutes: 42 Minutes MALAIKA HERNÁNDEZ PT, DPT Date: 04/01/2025 documented in this encounter [facility] 03-30-2025 History of Present illness Narrative Physical Therapy [facility] Therapy Daily Note Patient: Ashlee Jalloh : 1985 CSN #: [id number] Referring Physician: Rishabh Huang MD Date: 03/30/2025 Treatment Diagnosis: R hip labral repair PT Insurance Information: [facility] medicaid Total # of Visits Approved: 10 Per Physician Order Total # of Visits to Date: 7 No Show: 0 Canceled Appointment: 2 04/21/25 Plan of Care/Recert Due Pre-Treatment Pain: 3-4/10 Subjective: Pt reports 3-4/10 pain in right hip, reports some discomfort with active hip flexor motions like getting into car. Exercises: Exercise 1: HEP: glute set, prone lying, passive hip circumduction/abd/flex Exercise 2: * FOLLOW PROTOCOL IN BIN Exercise 3: L3.5 x10min Exercise 5: OTB hip abd/ext x 15 each // OTB lateral walk x 4 laps // mini squats x 10 // HR/TR x 15 Exercise 10: bent over hip ext knee straight x 10, knee bent x 10 // sideplank with knees bend 5 x 10 seconds // clamshells x15 Exercise 11: right LE SLS 3 x 30 seconds Manual: Other: PROM: within protocol pain free, no ER Assessment Body Structures, Functions, Activity Limitations Requiring Skilled Therapeutic Intervention: Decreased functional mobility , Decreased ADL status, Decreased ROM, Decreased body mechanics, Decreased tolerance to work activity, Decreased strength, Decreased balance, Increased pain, Decreased posture Assessment: Manual to right hip to improve mobility prior to excercises, additions and progressions made as indicated on flow sheet with focus on right glut / core strength and hip flexor ROM to improve hip ROM and strength post op. Moderate glut and core weakness demo, able to complete modifed versions of glut and core strengthening excercises today with moderate fatigue but no increase of pain. VC on proper glut engagement to improve firing pattern with excercises and reduce lumbar compensation with fair carryover. Moderate fatgiue reproted after therapy, will progress as able. Activity Tolerance Activity Tolerance: Patient tolerated treatment well, Patient limited by pain Patient Education Patient Education: POC Pt verbalized/demonstrated good understanding: [x] Yes [] No, pt required further clarification. Post Treatment Pain: 2-3/10 Plan Plan Frequency: 2 Plan weeks: 4 Goals (Total # of Visits to Date: 7) Short Term Goals Time Frame for Short Term Goals: 2 weeks Short Term Goal 1: Pt will be inititated with HEP. -met Short Term Goal 2: Pt will tolerate 30-40 minutes of ther ex to improve function with ADL's. - met Alf Goals Time Frame for Hollow Tile Partition Erector Goals : 6 weeks Alf Goal 1: Pt will independant and compliant with HEP to maintain functional gains made at therapy. - progressing Alf Goal 2: Pt will report 2/10 or less R hip pain on average to facilitate completion of ADL's. - progressing 3/10 average Hollow Tile Partition Erector Goal 3: Pt to improve R hip strength to 4+/5 grossly for ease with transfers and prolonged ambulation. - progressing 4-/5 grossly Alf Goal 4: Pt to improve R hip flexion/abd to be equal to L for improved gait mechanics. - progressing hip flexion 90* abd: 23* Alf Goal 5: Pt to report 70% improvement in symptoms to display increased QOL. - MET 85% Minutes Tracking: Time In: 1500 Time Out: 1544 Minutes: 44 Timed Code Treatment Minutes: 44 Minutes Corby Lewis PTA Date: 03/30/2025 Cosigned by Malaika Hernández PT at 03/30/2025 4:34 PM EDT documented in this encounter [facility] 03-25-2025 Note HNO ID: [id number] Author: HALEY KING MD Service: ? Author Type: Physician Type: Progress Notes Filed: 03/26/2025 08:33 Note Text: UNIVERSAL PROTOCOL / SAFETY CHECKLIST Procedure to be Performed: EMG Sign In: A Moment of CARE was completed. Personnel directly involved with the procedure wore the appropriate PPE (Personal Protective Equipment). Patient/Surrogate Stated/Verified: Patient name, Date of , Relevant allergies, and The intended procedure Time Out Communication: Intended patient and procedure match the source documents. Correct side/site marked and visible. Sign Out: Haley King MD SIGN OUT (optional for EMERGENT procedures): Post-procedure follow-up management communicated and Plan of Care Visit completed when applicable. Jocelynn Norman Emg tech Haley King MD [facility] 03-25-2025 History of Present illness Narrative UNIVERSAL PROTOCOL / SAFETY CHECKLIST Procedure to be Performed: EMG Sign In: A Moment of CARE was completed. Personnel directly involved with the procedure wore the appropriate PPE (Personal Protective Equipment). Patient/Surrogate Stated/Verified: Patient name, Date of , Relevant allergies, and The intended procedure Time Out Communication: Intended patient and procedure match the source documents. Correct side/site marked and visible. Sign Out: Haley King MD SIGN OUT (optional for EMERGENT procedures): Post-procedure follow-up management communicated and Plan of Care Visit completed when applicable. Jocelynn Norman Emg tech Haley King MD documented in this encounter [facility] 03-24-2025 History of Present illness Narrative [facility] Physical Therapy Daily Note Patient: Ashlee Jalloh : 1985 CSN #: [id number] Referring Physician: Rishabh Huang MD Date: 03/24/2025 Diagnosis: M24.259 Treatment Diagnosis: R hip labral repair PT Insurance Information: [facility] medicaid Total # of Visits Approved: 10 Per Physician Order Total # of Visits to Date: 6 No Show: 0 Canceled Appointment: 2 04/21/25 Plan of Care/Recert Due Pre-Treatment Pain: 03/19 Subjective: Pt reports 6-7/10 R hip pain today, located near groin. Exercises: Exercise 3: L3.5 x10min Exercise 4: measures obtianed for physician update/ reassessment Exercise 5: OTB hip abd/ext x 15 each // OTB lateral walk x 4 laps Exercise 8: small hurlde lateral tap x 10 R // lateral step over x 10 Exercise 9: STS x 10 Modality: Modality Flow Sheet: Performed (X) Tx Modality x Game Ready: x 10 min R hip high pressure Assessment Assessment: Pt has attended an initial eval and 5 follow up visits for R hip labrum repair. Pt has met all STGs and making progress toward LTGs. Pt hip ROM has improved to 90* of active hip flexion and 23* of passive hip abd. Pt is FWB and ambulating IND with min antalgic gait. Continues with gross L LE strength defecits at 4-/5 grossly with increased pain when resistance is added. Pain levels have trended downward, pt reports one recent episode of her leg falling into abd/ext when lying on the couch and now having increaed R groin pain. Pt would continue to benefit from physical therapy to allow for LTG completion, return to PLOF and safe return to work. Progressed with added light resistance band to exercises today, pt with good tolerance. Increased pain with forward cain tap, held for now. Activity Tolerance Activity Tolerance: Patient tolerated treatment well, Patient limited by pain Patient Education Patient Education: POC Pt verbalized/demonstrated good understanding: [x] Yes [] No, pt required further clarification. Post Treatment Pain: 6/10 Plan Plan Frequency: 2 Plan weeks: 4 Goals (Total # of Visits to Date: 6) Short Term Goals Time Frame for Short Term Goals: 2 weeks Short Term Goal 1: Pt will be inititated with HEP. -met Short Term Goal 2: Pt will tolerate 30-40 minutes of ther ex to improve function with ADL's. - met Hollow Tile Partition Erector Goals Time Frame for Alf Goals : 6 weeks Hollow Tile Partition Erector Goal 1: Pt will independant and compliant with HEP to maintain functional gains made at therapy. - progressing Hollow Tile Partition Erector Goal 2: Pt will report 2/10 or less R hip pain on average to facilitate completion of ADL's. - progressing 3/10 average Alf Goal 3: Pt to improve R hip strength to 4+/5 grossly for ease with transfers and prolonged ambulation. - progressing 4-/5 grossly Hollow Tile Partition Erector Goal 4: Pt to improve R hip flexion/abd to be equal to L for improved gait mechanics. - progressing hip flexion 90* abd: 23* Hollow Tile Partition Erector Goal 5: Pt to report 70% improvement in symptoms to display increased QOL. - MET 85% Minutes Tracking: Time In: 1300 Time Out: 1345 Minutes: 45 Timed Code Treatment Minutes: 43 Minutes MALAIKA HERNÁNDEZ PT, DPT Date: 03/24/2025 [facility] Therapy Date: 03/24/2025 Patient: Ashlee Jalloh : 1985 CSN #: [id number] Referring Physician: Rishabh Huang MD [] Plan of Care [x] Updated Plan of Care Dates of Service to Include: 03/24/2025 to 04/21/25 Diagnosis: M24.259 Rehab (Treatment) Diagnosis: R hip labral repair Onset Date: 02/23/25 Attendance Total # of Visits to Date: 6 No Show: 0 Canceled Appointment: 2 Assessment Assessment: Pt has attended an initial eval and 5 follow up visits for R hip labrum repair. Pt has met all STGs and making progress toward LTGs. Pt hip ROM has improved to 90* of active hip flexion and 23* of passive hip abd. Pt is FWB and ambulating IND with min antalgic gait. Continues with gross L LE strength defecits at 4-/5 grossly with increased pain when resistance is added. Pain levels have trended downward, pt reports one recent episode of her leg falling into abd/ext when lying on the couch and now having increaed R groin pain. Pt would continue to benefit from physical therapy to allow for LTG completion, return to PLOF and safe return to work. Goals Short Term Goals Time Frame for Short Term Goals: 2 weeks Short Term Goal 1: Pt will be inititated with HEP. -met Short Term Goal 2: Pt will tolerate 30-40 minutes of ther ex to improve function with ADL's. - met Hollow Tile Partition Erector Goals Time Frame for Hollow Tile Partition Erector Goals : 6 weeks Alf Goal 1: Pt will independant and compliant with HEP to maintain functional gains made at therapy. - progressing Alf Goal 2: Pt will report 2/10 or less R hip pain on average to facilitate completion of ADL's. - progressing 3/10 average Hollow Tile Partition Erector Goal 3: Pt to improve R hip strength to 4+/5 grossly for ease with transfers and prolonged ambulation. - progressing 4-/5 grossly Hollow Tile Partition Erector Goal 4: Pt to improve R hip flexion/abd to be equal to L for improved gait mechanics. - progressing hip flexion 90* abd: 23* Hollow Tile Partition Erector Goal 5: Pt to report 70% improvement in symptoms to display increased QOL. - MET 85% Prognosis Therapy Prognosis: Good Treatment Plan Plan Frequency: 2 Plan weeks: 4 [x] HP/CP [x] Electrical Stim [x] Therapeutic Exercise [x] Gait Training [x] Aquatics [] Ultrasound [x] Patient Education/HEP [x] Manual Therapy [] Traction [x] Neuro-farshad [x] Soft Tissue Mobs [] Therapeutic Activity [] Iontophoresis [] Orthotic casting/fitting [] Dry Needling [] Blood Flow Restriction [] Vasopneumatic Compression [x] Vasopneumatic Compression/Cold [] Vestibular Rehabilitation Electronically signed by: MALAIKA HERNÁNDEZ, PT, DPT Date: 03/24/2025 Date: 03/24/2025 Physician Signature documented in this encounter [facility] 03-19-2025 History of Present illness Narrative Physical Therapy [facility] Inpatient/Observation/Outpatient Rehabilitation Date: 03/19/2025 Patient Name: Ashlee Jalloh [] Inpatient Acute/Observation [x] Outpatient : 1985 Plan of Care/Recert ends [] Pt refused/declined therapy at this time due to: [x] Pt cancelled due to: [] No Reason Given [] Sick/ill [x] Other: no ride [] Evaluation held by RN/Provider/Physical Therapist due to: [] High Heart Rate [] High Blood Pressure [] Orthopedic Consult [] Hgb < 7 [] Other: [] Pt ordered brace per physician request: [] Proper fit will be completed and education for wearing/skin checks [] Pt does not require skilled services due to: Therapist/Break Out Man will attempt to see this patient, at our earliest opportunity. Katty Gonzalez Date: 03/19/2025 Cosigned by Corby Lewis PTA at 03/19/2025 11:16 AM EDT documented in this encounter [facility] 03-16-2025 History of Present illness Narrative Physical Therapy [facility] Outpatient Physical Therapy Daily Note Patient: Ashlee Jalloh : 1985 CSN #: [id number] Referring Physician: Rishabh Huang MD Date: 03/16/2025 Treatment Diagnosis: R hip labral repair PT Insurance Information: [place] Total # of Visits Approved: 10 Per Physician Order Total # of Visits to Date: 5 No Show: 0 Canceled Appointment: 1 03/24/25 Plan of Care/Recert Due Pre-Treatment Pain: 2/10 Subjective: Pt reports pain level 2/10 in clay staples, reports compliance with HEP. Pt is 3 weeks post op today. Exercises: Exercise 1: HEP: glute set, prone lying, passive hip circumduction/abd/flex Exercise 2: * FOLLOW PROTOCOL IN BIN Exercise 3: scifit seat all the way up! L1 x10min Exercise 4: Supine: hip and slides x10 // TA activation x 20 // glue sets x15 ea // marching alt x 10 hooklying Exercise 6: Supine R hip flexor stretch with R LE flat on table and L SKTC, [id number] Exercise 8: standing RLE open chain ther ex x15 Exercise 9: 2x big loops with LBQC 75% WB Manual: Other: PROM: within protocol pain free, no ER Assessment Body Structures, Functions, Activity Limitations Requiring Skilled Therapeutic Intervention: Decreased functional mobility , Decreased ADL status, Decreased ROM, Decreased body mechanics, Decreased tolerance to work activity, Decreased strength, Decreased balance, Increased pain, Decreased posture Assessment: Pt is 3 weeks post op today, arrived to therapy with LBQC that was too short and in wrong hand, AFTERNOON NANNY spent time adjusting to proper height and educating on proper gait mechanics with good carryover. Therapy progressed per protocol with progression to 75% WB on RLE with LBQC. Additions and progressions made as indicated on flow sheet, unable to tolerate bridging due to LBP. Manual as indicated for right hip stretching and ROM, avoided ER per protocol. No increase pain reported but mdoerate bilat hip fatigue, will progress as able. Activity Tolerance Activity Tolerance: Patient tolerated treatment well Patient Education Patient Education: HEP and increased WBing Pt verbalized/demonstrated good understanding: [x] Yes [] No, pt required further clarification. Post Treatment Pain: 2/10 Plan Plan Frequency: 2 Plan weeks: 4 Goals (Total # of Visits to Date: 5) Short Term Goals Time Frame for Short Term Goals: 2 weeks Short Term Goal 1: Pt will be inititated with HEP. -met Short Term Goal 2: Pt will tolerate 30-40 minutes of ther ex to improve function with ADL's. - met Hollow Tile Partition Erector Goals Time Frame for Alf Goals : 6 weeks Hollow Tile Partition Erector Goal 1: Pt will independant and compliant with HEP to maintain functional gains made at therapy. Alf Goal 2: Pt will report 2/10 or less R hip pain on average to facilitate completion of ADL's. Alf Goal 3: Pt to improve R hip strength to 4+/5 grossly for ease with transfers and prolonged ambulation. Hollow Tile Partition Erector Goal 4: Pt to improve R hip flexion/abd to be equal to L for improved gait mechanics. Alf Goal 5: Pt to report 70% improvement in symptoms to display increased QOL. Minutes Tracking: Time In: 1115 Time Out: 1155 Minutes: 40 Timed Code Treatment Minutes: 40 Minutes Corby Lewis PTA Date: 03/16/2025 Cosigned by Malaika Hernández PT at 03/16/2025 12:28 PM EDT documented in this encounter [facility] 03-11-2025 History of Present illness Narrative [facility] Outpatient Physical Therapy Daily Note Patient: Ashlee Jalloh : 1985 CSN #: [id number] Referring Physician: Rishabh Huang MD Date: 03/11/2025 Diagnosis: M24.259 Treatment Diagnosis: R hip labral repair PT Insurance Information: [facility] medicaid Total # of Visits Approved: 10 Per Physician Order Total # of Visits to Date: 4 No Show: 0 Canceled Appointment: 1 03/24/25 Plan of Care/Recert Due Pre-Treatment Pain: 0/10 Subjective: Pt states she is a little sore today, denies pain Exercises: Exercise 2: * FOLLOW PROTOCOL IN BIN Exercise 3: scifit seat all the way up! L1 x10min Exercise 4: Supine: hip abd/adduction isometric; TA activation; glue sets x15 ea Exercise 6: Supine R hip flexor stretch with R LE flat on table and L SKTC, [id number] Exercise 7: Seated LAQ, ankle pumps, HS curls GTB x20 ea Exercise 8: Standing R LE open chain flex/abd/ext within protocol ROM restrictions, x15 ea way Manual: Other: PROM: R hip 90 deg flexion; hip IR 20*, abd to 25 deg, ext: 0* Assessment Assessment: Pt denies pain, states she just has tightness and some soreness. Pt Saw her Dr moreland and WBing is to be progressed to 50% tomorrow. Exercise completed with good understanding. Worked on gait maintaining WBing status. Will continue to progress per protocol. Activity Tolerance Activity Tolerance: Patient tolerated treatment well Patient Education Patient Education: HEP and increased WBing Pt verbalized/demonstrated good understanding: [x] Yes [] No, pt required further clarification. Post Treatment Pain: 0/10 Plan Plan Frequency: 2 Plan weeks: 4 Goals (Total # of Visits to Date: 4) Short Term Goals Time Frame for Short Term Goals: 2 weeks Short Term Goal 1: Pt will be inititated with HEP. -met Short Term Goal 2: Pt will tolerate 30-40 minutes of ther ex to improve function with ADL's. - met Alf Goals Time Frame for Alf Goals : 6 weeks [employer] Tile Part[employer] Erector Goal 1: Pt will independant and compliant with HEP to maintain functional gains made at therapy. Hollow Tile Partition Erector Goal 2: Pt will report 2/10 or less R hip pain on average to facilitate completion of ADL's. Hollow Tile Partition Erector Goal 3: Pt to improve R hip strength to 4+/5 grossly for ease with transfers and prolonged ambulation. Hollow Tile Partition Erector Goal 4: Pt to improve R hip flexion/abd to be equal to L for improved gait mechanics. Hollow Tile Partition Erector Goal 5: Pt to report 70% improvement in symptoms to display increased QOL. Minutes Tracking: Time In: 1135 Time Out: 1219 Minutes: 44 Timed Code Treatment Minutes: 41 Minutes Sergio Alcantar Date: 03/11/2025 Cosigned by Malaika Hernández, PT at 03/11/2025 2:08 PM EDT documented in this encounter [facility] 03-10-2025 Instructions Madyson Villafuerte PA-C - 03/10/2025 2:06 PM EDT Brace: Discontinue Weight Bearing: Progressive - use 2 crutches for minimum 3 days working up to 50 % weight bearing then if able to comfortably bear more than 50% weight transition to 1 crutch or cane for minimum 3 days - full weight bearing as tolerated day 3. Then continue cane/ crutch as needed to avoid limping Wound Care You can get your incisions wet in the shower, by allowing the water to run over them. Avoid scrubbing incisions. Do not soak or submerge your leg in a hot tub, bath tub or pool until you are at least 4 weeks post op and incisions well healed. Do not apply lotions or ointments to your incisions until you are 3 weeks post op and incisions are well healed. Medications: Finish Naproxen prescription. Then NSAID as needed for pain Pain medication - Over the Counter Tylenol (Acetaminophen) - Max 3000 mg per day Hip Motion Restrictions Flexion (bending hip) - 90 degrees - 2 weeks after surgery OK to sit on toilet and put shoes on as tolerated - you may have to slouch or lean back Extension - Neutral (0 degrees) - 3 weeks after surgery External Rotation with leg extended (straight) NEUTRAL ( 0 degrees) - 6 weeks after surgery * -Do not turn your foot out with your leg straight ABduction (bringing your hip away from your body) Shoulder Width - 3 weeks after surgery ADduction Neutral (0 degrees) 6 weeks after surgery * Do not cross your legs Place a pillow or 2 between your knees if laying on your side Extremes of motion and quick movements will continue to be uncomfortable It is normal to experience clicks, pops, cracks to varying degrees - as the scar tissue is maturing and you are gaining muscle strength and endurance Activities: Pay attention to soreness at the end of day - this is your guide to back off on activity - soreness should resolve/ improve within 24 hours Ok to sleep in any comfortable position - either side recommend pillow between your knees It is normal to have morning stiffness and soreness at the end of the day. Soreness should resolve within 24 hours. Monitor soreness if increasing daily - sign you are overdoing it. Physical therapy - not more than twice a week Continue to lay on your stomach for 4-6 times per day, for 10-15 minutes per session to stretch the front of your hip. Avoid walking for exercise Upright stationary bike for motion only over the next 3-4 weeks - do not have feet attached to pedals (no strap or clipping in) - can work up to 20 minutes twice a day Pool at 4 weeks post op IF incisions are completely healed: avoid breast stroke, treading water, scissor kick/ motion. Lifting: Nothing greater than a gallon of milk until next office visit Driving: Once you have good leg control and are able to safely and confidently move from gas to break and slam on brake if necessary to protect yourself and others. Follow-up: 4 weeks documented in this encounter [facility] 03-10-2025 Note HNO ID: [id number] Author: MADYSON VILLAFUERTE PA-C Service: ? Author Type: Physician Break Out Man Type: Progress Notes Filed: 03/10/2025 16:27 Note Text: Post Op Follow Up Visit Ashlee Jalloh returns 15 days s/p 1. right hip arthroscopy 2. Labral repair CPT 14088 3. Femoroplasty CPT 04936 4. Acetabuloplasty CPT 04076 5. Capsular Closure DOS: 02/23/25 Denies interim injury or trauma Brace intact Weight bearing: partial with 2 crutches Post op medication usage: Naproxen consistent use tolerating well Opioid took 1 tablet Muscle relaxant effective Physical therapy going well PAIN EVALUATION 03/03/2025 2157 03/10/2025 1320 Pain Level: 6 2 Pain Location: Back-Lower Hip-Right Description: Aching;Dull;Numbness;Shooting;So re;Stabbing/Not Incision;Stiffness;Throbbing Sore;Aching Duration Amount of Time: 12 2 Duration Units: Months Weeks Frequency: Continuous Intermittent Intervention/Comfort measure: Medication;Relaxation;Cold;Heat; Massage;Pillow support Exercise PT Review of Symptoms: General: no fevers, chills, nausea/vomiting, malaise CV: No chest pain, no calf pain or redness Pulm: No shortness of breath GI: No nausea, vomiting or constipation HEENT: No head ache Physical Examination: This is a well appearing, well nourished patient in no acute distress. Breathes easily and has normal chest wall excursion. Affect is normal. Right hip: Sutures removed without incident. Incisions healing well with no erythema, drainage, induration. There are no signs of infection. Wounds re-enforced with steri strips. decreased sensation in the distribution of the lateral femoral cutaneous nerve No discomfort with IR log roll Hip flexion to 90 degrees without pain External rotation at 90? to 60 degrees without pain Calves soft, non tender, no palpable cords 5/5 strength with resisted DF/EHL/PF bilaterally Impression: Approximately 2 weeks s/p right hip scope. No evidence of infection or DVT Plan: Discussed Intra operative and post operative course and expectations discussed. Arthroscopy pictures reviewed. Brace: Discontinue Weight Bearing: Progressive - use 2 crutches for minimum 3 days working up to 50 % weight bearing then if able to comfortably bear more than 50% weight transition to 1 crutch or cane for minimum 3 days - full weight bearing as tolerated day 3. Then continue cane/ crutch as needed to avoid limping Wound Care You can get your incisions wet in the shower, by allowing the water to run over them. Avoid scrubbing incisions. Do not soak or submerge your leg in a hot tub, bath tub or pool until you are at least 4 weeks post op and incisions well healed. Do not apply lotions or ointments to your incisions until you are 3 weeks post op and incisions are well healed. Medications: Finish Naproxen prescription. Then NSAID as needed for pain Pain medication - Over the Counter Tylenol (Acetaminophen) - Max 3000 mg per day Hip Motion Restrictions Flexion (bending hip) - 90 degrees - 2 weeks after surgery OK to sit on toilet and put shoes on as tolerated - you may have to slouch or lean back Extension - Neutral (0 degrees) - 3 weeks after surgery External Rotation with leg extended (straight) NEUTRAL ( 0 degrees) - 6 weeks after surgery * -Do not turn your foot out with your leg straight ABduction (bringing your hip away from your body) Shoulder Width - 3 weeks after surgery ADduction Neutral (0 degrees) 6 weeks after surgery * Do not cross your legs Place a pillow or 2 between your knees if laying on your side Extremes of motion and quick movements will continue to be uncomfortable It is normal to experience clicks, pops, cracks to varying degrees - as the scar tissue is maturing and you are gaining muscle strength and endurance Activities: Pay attention to soreness at the end of day - this is your guide to back off on activity - soreness should resolve/ improve within 24 hours Ok to sleep in any comfortable position - either side recommend pillow between your knees It is normal to have morning stiffness and soreness at the end of the day. Soreness should resolve within 24 hours. Monitor soreness if increasing daily - sign you are overdoing it. Physical therapy - not more than twice a week Continue to lay on your stomach for 4-6 times per day, for 10-15 minutes per session to stretch the front of your hip. Avoid walking for exercise Upright stationary bike for motion only over the next 3-4 weeks - do not have feet attached to pedals (no strap or clipping in) - can work up to 20 minutes twice a day Pool at 4 weeks post op IF incisions are completely healed: avoid breast stroke, treading water, scissor kick/ motion. Lifting: Nothing greater than a gallon of milk until next office visit Driving: Once you have good leg control and are able to safely and confidently move from gas to break and slam on brake if necessary t (more content not included)... [facility] 03-10-2025 History of Present illness Narrative Images from the original note were not included. Post Op Follow Up Visit Ashlee Jalloh returns 15 days s/p 1. right hip arthroscopy 2. Labral repair CPT 56484 3. Femoroplasty CPT 09232 4. Acetabuloplasty CPT 58568 5. Capsular Closure DOS: 02/23/25 Denies interim injury or trauma Brace intact Weight bearing: partial with 2 crutches Post op medication usage: Naproxen consistent use tolerating well Opioid took 1 tablet Muscle relaxant effective Physical therapy going well PAIN EVALUATION 03/03/2025 2157 03/10/2025 1320 Pain Level: 6 2 Pain Location: Back-Lower Hip-Right Description: Aching;Dull;Numbness;Shooting;So re;Stabbing/Not Incision;Stiffness;Throbbing Sore;Aching Duration Amount of Time: 12 2 Duration Units: Months Weeks Frequency: Continuous Intermittent Intervention/Comfort measure: Medication;Relaxation;Cold;Heat; Massage;Pillow support Exercise PT Review of Symptoms: General: no fevers, chills, nausea/vomiting, malaise CV: No chest pain, no calf pain or redness Pulm: No shortness of breath GI: No nausea, vomiting or constipation HEENT: No head ache Physical Examination: This is a well appearing, well nourished patient in no acute distress. Breathes easily and has normal chest wall excursion. Affect is normal. Right hip: Sutures removed without incident. Incisions healing well with no erythema, drainage, induration. There are no signs of infection. Wounds re-enforced with steri strips. decreased sensation in the distribution of the lateral femoral cutaneous nerve No discomfort with IR log roll Hip flexion to 90 degrees without pain External rotation at 90 to 60 degrees without pain Calves soft, non tender, no palpable cords 5/5 strength with resisted DF/EHL/PF bilaterally Impression: Approximately 2 weeks s/p right hip scope. No evidence of infection or DVT Plan: Discussed Intra operative and post operative course and expectations discussed. Arthroscopy pictures reviewed. Brace: Discontinue Weight Bearing: Progressive - use 2 crutches for minimum 3 days working up to 50 % weight bearing then if able to comfortably bear more than 50% weight transition to 1 crutch or cane for minimum 3 days - full weight bearing as tolerated day 3. Then continue cane/ crutch as needed to avoid limping Wound Care You can get your incisions wet in the shower, by allowing the water to run over them. Avoid scrubbing incisions. Do not soak or submerge your leg in a hot tub, bath tub or pool until you are at least 4 weeks post op and incisions well healed. Do not apply lotions or ointments to your incisions until you are 3 weeks post op and incisions are well healed. Medications: Finish Naproxen prescription. Then NSAID as needed for pain Pain medication - Over the Counter Tylenol (Acetaminophen) - Max 3000 mg per day Hip Motion Restrictions Flexion (bending hip) - 90 degrees - 2 weeks after surgery OK to sit on toilet and put shoes on as tolerated - you may have to slouch or lean back Extension - Neutral (0 degrees) - 3 weeks after surgery External Rotation with leg extended (straight) NEUTRAL ( 0 degrees) - 6 weeks after surgery * -Do not turn your foot out with your leg straight ABduction (bringing your hip away from your body) Shoulder Width - 3 weeks after surgery ADduction Neutral (0 degrees) 6 weeks after surgery * Do not cross your legs Place a pillow or 2 between your knees if laying on your side Extremes of motion and quick movements will continue to be uncomfortable It is normal to experience clicks, pops, cracks to varying degrees - as the scar tissue is maturing and you are gaining muscle strength and endurance Activities: Pay attention to soreness at the end of day - this is your guide to back off on activity - soreness should resolve/ improve within 24 hours Ok to sleep in any comfortable position - either side recommend pillow between your knees It is normal to have morning stiffness and soreness at the end of the day. Soreness should resolve within 24 hours. Monitor soreness if increasing daily - sign you are overdoing it. Physical therapy - not more than twice a week Continue to lay on your stomach for 4-6 times per day, for 10-15 minutes per session to stretch the front of your hip. Avoid walking for exercise Upright stationary bike for motion only over the next 3-4 weeks - do not have feet attached to pedals (no strap or clipping in) - can work up to 20 minutes twice a day Pool at 4 weeks post op IF incisions are completely healed: avoid breast stroke, treading water, scissor kick/ motion. Lifting: Nothing greater than a gallon of milk until next office visit Driving: Once you have good leg control and are able to safely and confidently move from gas to break and slam on brake if necessary to protect yourself and others. Follow-up: 4 weeks Madyson Villafuerte MS, PA-C Three sutures removed for two incisions anterior hip. Pt tolerated. No redness no drainage noted to incisions. New steri strips applied. documented in this encounter [facility] 03-10-2025 Note HNO ID: [id number] Author: DELIA MCKEON LPN Service: ? Author Type: LICENSED NURSE Type: Progress Notes Filed: 03/10/2025 16:27 Note Text: Three sutures removed for two incisions anterior hip. Pt tolerated. No redness no drainage noted to incisions. New steri strips applied. [facility] 03-09-2025 History of Present illness Narrative Physical Therapy [facility] Inpatient/Observation/Outpatient Rehabilitation Date: 03/09/2025 Patient Name: Ashlee Jalloh [] Inpatient Acute/Observation [x] Outpatient : 1985 Plan of Care/Recert ends [] Pt refused/declined therapy at this time due to: [x] Pt cancelled due to: [] No Reason Given [] Sick/ill [x] Other: too sore, over did it on the weekend [] Evaluation held by RN/Provider/Physical Therapist due to: [] High Heart Rate [] High Blood Pressure [] Orthopedic Consult [] Hgb < 7 [] Other: [] Pt ordered brace per physician request: [] Proper fit will be completed and education for wearing/skin checks [] Pt does not require skilled services due to: Therapist/Break Out Man will attempt to see this patient, at our earliest opportunity. Katty Gonzalez Date: 03/09/2025 Cosigned by Sergio Barkley at 03/09/2025 3:03 PM EDT documented in this encounter [facility] 03-05-2025 History of Present illness Narrative [facility] Outpatient Physical Therapy Daily Note Patient: Ashlee Jalloh : 1985 CSN #: [id number] Referring Physician: Rishabh Huang MD Date: 03/05/2025 Diagnosis: M24.259 Treatment Diagnosis: R hip labral repair PT Insurance Information: [facility] medicaid Total # of Visits Approved: 10 Per Physician Order Total # of Visits to Date: 3 No Show: 0 Canceled Appointment: 1 03/24/25 Plan of Care/Recert Due Pre-Treatment Pain: 11/17 Subjective: Patient returns to doctor on Sunday to get stitches out and hopefully progress to next phase of protocol. Exercises: Exercise 1: HEP: glute set, prone lying, passive hip circumduction/abd/flex Exercise 2: * FOLLOW PROTOCOL IN BIN Exercise 3: scifit seat all the way up! L1 x8 min Exercise 4: Supine: hip abd/adduction isometric; TA activation; glue sets x15 ea Exercise 6: Supine R hip flexor stretch with R LE flat on table and L SKTC, [id number] Exercise 7: Seated LAQ, ankle pumps, HS curls GTB x20 ea Exercise 8: Standing R LE open chain flex/abd/ext within protocol ROM restrictions, x15 ea way Manual: Other: PROM: R hip 90 deg flexion; hip IR 20*, abd to 25 deg, ext: 0* Assessment Assessment: Progressed to standing R LE open chain ther ex within protocol ROM restrictions. Patient able to achieve R hip PROM flexion to 90, IR: 20*, ext: 0* with no increase in pain. Will continue to progress as able. Activity Tolerance Activity Tolerance: Patient tolerated treatment well Patient Education Exercise technique and progression Pt verbalized/demonstrated good understanding: [x] Yes [] No, pt required further clarification. Post Treatment Pain: 3/10 Plan Plan Frequency: 2 Plan weeks: 4 Goals (Total # of Visits to Date: 3) Short Term Goals Time Frame for Short Term Goals: 2 weeks Short Term Goal 1: Pt will be inititated with HEP. -met Short Term Goal 2: Pt will tolerate 30-40 minutes of ther ex to improve function with ADL's. - met Alf Goals Time Frame for Hollow Tile Partition Erector Goals : 6 weeks Alf Goal 1: Pt will independant and compliant with HEP to maintain functional gains made at therapy. Hollow Tile Partition Erector Goal 2: Pt will report 2/10 or less R hip pain on average to facilitate completion of ADL's. Alf Goal 3: Pt to improve R hip strength to 4+/5 grossly for ease with transfers and prolonged ambulation. Hollow Tile Partition Erector Goal 4: Pt to improve R hip flexion/abd to be equal to L for improved gait mechanics. Alf Goal 5: Pt to report 70% improvement in symptoms to display increased QOL. Minutes Tracking: Time In: 1049 Time Out: 1129 Minutes: 40 Timed Code Treatment Minutes: 39 Minutes Arturo Virk, PT, DPT Date: 03/05/2025 documented in this encounter [facility] 03-04-2025 Note HNO ID: [id number] Author: JOHNATHAN HAAS MD Service: ? Author Type: Physician Type: Progress Notes Filed: 03/04/2025 13:00 Note Text: REHABILITATION RECHECK: Follow-up evaluation Committee wheelchair recent right hip labral tear surgery nonweightbearing right lower extremity Chronic lower back pain bilateral hip pain intermittent radiation of pain to legs History of lumbar fusion x 3 Status post bilateral SIJ bone fusion Had CT lumbar for review Overall no change in her symptoms Chronic fibromyalgia syndrome She is following with a local pain management physician she tried multiple injections medications with no significant change in her symptoms. Pain management physician offered spinal cord stimulator trial Due to fibromyalgia skeptical to see it helps for her not most of her pain lower back bilateral hips The patient is a 40 year old female who presents for a return visit for follow up of previous concerns of pain in the lower back across back pain. Pain gets worse difficulty working by end of the day pain level severe lower back bilateral hips Back pain with coughing or sneezing pain level 6-7/10 Bilateral SIJ bone fusion in August 2023 Lumbar fusion most recent surgery in 2021 Cannot take any SSRI or antidepressant medication due to sensitivity INTERIM HISTORY Since the last visit, the patient states the symptoms have not changed. The distribution of painful symptoms has has not changed. Positive red flags : are absent on history.. Negative red flags include: age greater than 50 years, fevers, night pain, bowel incontinence, bladder incontinence, persistent adolescent back pain, diagnosis of cancer, significant spinal trauma, IV drug use, narcotic use, and weight loss Review of systems notes no cough, fever, weight loss or systemic illness. No new bowel, bladder, motor or sensory complaints. No dizzyness, fainting, orthostasis,vision or language changes. No shortness of breath, chest pain, nausea, vomiting or diarrhea. No past medical history on file. Fibromyalgia PAST SURGICAL HISTORY Procedure Laterality Date ARTHRD ANT INTERBODY MIN DSC LUMBAR L4-5 SECTION HX x 2 PAST SURGICAL HISTORY OF Bilateral SI joint fusion S PROBE PERC LUMBAR DISCECTOMY L4-5 Current Outpatient Medications Medication Sig acetaminophen (ACETAMINOPHEN EXTRA STRENGTH) 500 mg tablet Take 1 tablet every 6 to 8 hours as needed for pain aspirin, enteric coated (ADULT LOW DOSE ASPIRIN) 81 mg EC tablet Take 1 tablet by mouth daily with breakfast for 21 days. docusate sodium (COLACE) 100 mg capsule Take 1 capsule by mouth two times a day. naproxen (NAPROSYN) 500 mg tablet Take 1 tablet by mouth two times a day with meals for 21 days. methocarbamol (ROBAXIN) 500 mg tablet Take 1 tablet every 6 to 8 hours as needed for pain or muscle spasms ondansetron orally disintegrating (ZOFRAN ODT) 4 mg disintegrating tablet Take 1 tablet by mouth every 8 hours as needed for nausea/vomiting. Phentermine HCl 37.5 mg tablet Take 37.5 mg by mouth. pregabalin (LYRICA) 50 mg capsule Take 1 capsule by mouth three times a day for 90 days. esomeprazole (NEXIUM) 20 mg capsule Take 20 mg by mouth once daily. BASE, PCCA VANPEN crea Apply 1 application to affected area once daily. ubrogepant (UBRELVY) 100 mg tablet Take 100 mg by mouth once daily as needed. Fqcwf-0-UGM-EPA-Fish Oil (FISH OIL) 1,000 (120-180) mg cap Take 1 capsule by mouth once daily. (Patient not taking: Reported on 02/16/2025) No current facility-administered medications for this visit. ALLERGIES Allergen Reactions Nalbuphine Intolerance, Vomiting, Other: See Comments, Rash Pt vomited after being given Nubain in the past pt states when taking it becamse dizzy and nauseated was pregant had to be rushed back to surgery. Adhesive Tape (Palak* Rash Cloth tape, tears skin and welts Social history notes review fro gt Blood pressure 122/70, pulse 91, resp. rate 16, height 162.6 cm (5' 4 ), weight 81.6 kg (179 lb 14.3 oz), SpO2 98%. The patient is non-toxic in appearance. There are no open skin lesions. HEENT reveals no cervical lymph nodes or palpable thyroid nodules. There is no swelling redness or heat of the distal limbs. Peripheral pulses are present and symmetric, difficult to examine her lumbar spine due to recent right hip surgery nonweightbearing with the brace Reviewed spine imaging CT lumbar x-ray lumbar results and images Post fusion lumbar bilateral SIJ fusion with no significant bridging callus 12/30/2024 11:24 AM - Radiology, [place] In Impression IMPRESSION: 1. Postsurgical changes of posterior fusion at L4-5 with posterior decompression L4 without evidence of hardware complication. 2. Irregularity at the posterior aspect of the sacral ala at the SI joints superiorly may be related to attempted fusion. No bridging callus fusing the sacroiliac joints. 3. Multifactorial degener (more content not included)... [facility] 03-04-2025 History of Present illness Narrative REHABILITATION RECHECK: Follow-up evaluation Committee wheelchair recent right hip labral tear surgery nonweightbearing right lower extremity Chronic lower back pain bilateral hip pain intermittent radiation of pain to legs History of lumbar fusion x 3 Status post bilateral SIJ bone fusion Had CT lumbar for review Overall no change in her symptoms Chronic fibromyalgia syndrome She is following with a local pain management physician she tried multiple injections medications with no significant change in her symptoms. Pain management physician offered spinal cord stimulator trial Due to fibromyalgia skeptical to see it helps for her not most of her pain lower back bilateral hips The patient is a 40 year old female who presents for a return visit for follow up of previous concerns of pain in the lower back across back pain. Pain gets worse difficulty working by end of the day pain level severe lower back bilateral hips Back pain with coughing or sneezing pain level 6-7/10 Bilateral SIJ bone fusion in August 2023 Lumbar fusion most recent surgery in 2021 Cannot take any SSRI or antidepressant medication due to sensitivity INTERIM HISTORY Since the last visit, the patient states the symptoms have not changed. The distribution of painful symptoms has has not changed. Positive red flags : are absent on history.. Negative red flags include: age greater than 50 years, fevers, night pain, bowel incontinence, bladder incontinence, persistent adolescent back pain, diagnosis of cancer, significant spinal trauma, IV drug use, narcotic use, and weight loss Review of systems notes no cough, fever, weight loss or systemic illness. No new bowel, bladder, motor or sensory complaints. No dizzyness, fainting, orthostasis,vision or language changes. No shortness of breath, chest pain, nausea, vomiting or diarrhea. No past medical history on file. Fibromyalgia PAST SURGICAL HISTORY Procedure Laterality Date ARTHRD ANT INTERBODY MIN DSC LUMBAR L4-5 SECTION HX x 2 PAST SURGICAL HISTORY OF Bilateral SI joint fusion S PROBE PERC LUMBAR DISCECTOMY L4-5 Current Outpatient Medications Medication Sig acetaminophen (ACETAMINOPHEN EXTRA STRENGTH) 500 mg tablet Take 1 tablet every 6 to 8 hours as needed for pain aspirin, enteric coated (ADULT LOW DOSE ASPIRIN) 81 mg EC tablet Take 1 tablet by mouth daily with breakfast for 21 days. docusate sodium (COLACE) 100 mg capsule Take 1 capsule by mouth two times a day. naproxen (NAPROSYN) 500 mg tablet Take 1 tablet by mouth two times a day with meals for 21 days. methocarbamol (ROBAXIN) 500 mg tablet Take 1 tablet every 6 to 8 hours as needed for pain or muscle spasms ondansetron orally disintegrating (ZOFRAN ODT) 4 mg disintegrating tablet Take 1 tablet by mouth every 8 hours as needed for nausea/vomiting. Phentermine HCl 37.5 mg tablet Take 37.5 mg by mouth. pregabalin (LYRICA) 50 mg capsule Take 1 capsule by mouth three times a day for 90 days. esomeprazole (NEXIUM) 20 mg capsule Take 20 mg by mouth once daily. BASE, PCCA VANPEN crea Apply 1 application to affected area once daily. ubrogepant (UBRELVY) 100 mg tablet Take 100 mg by mouth once daily as needed. Btcee-3-FIP-EPA-Fish Oil (FISH OIL) 1,000 (120-180) mg cap Take 1 capsule by mouth once daily. (Patient not taking: Reported on 02/16/2025) No current facility-administered medications for this visit. ALLERGIES Allergen Reactions Nalbuphine Intolerance, Vomiting, Other: See Comments, Rash Pt vomited after being given Nubain in the past pt states when taking it becamse dizzy and nauseated was pregant had to be rushed back to surgery. Adhesive Tape (Palak* Rash Cloth tape, tears skin and welts Social history notes review fro gt Blood pressure 122/70, pulse 91, resp. rate 16, height 162.6 cm (5' 4 ), weight 81.6 kg (179 lb 14.3 oz), SpO2 98%. The patient is non-toxic in appearance. There are no open skin lesions. HEENT reveals no cervical lymph nodes or palpable thyroid nodules. There is no swelling redness or heat of the distal limbs. Peripheral pulses are present and symmetric, difficult to examine her lumbar spine due to recent right hip surgery nonweightbearing with the brace Reviewed spine imaging CT lumbar x-ray lumbar results and images Post fusion lumbar bilateral SIJ fusion with no significant bridging callus 12/30/2024 11:24 AM - Radiology, [place] In Impression IMPRESSION: 1. Postsurgical changes of posterior fusion at L4-5 with posterior decompression L4 without evidence of hardware complication. 2. Irregularity at the posterior aspect of the sacral ala at the SI joints superiorly may be related to attempted fusion. No bridging callus fusing the sacroiliac joints. 3. Multifactorial degenerative changes in the mid to lower lumbar spine as above in more detail. Metallic Yarn Slitting Machine Operator: PSCB Transcribe Date/Time: Dec 30 2024 10:05A Dictated by : ROSSANA PETER MD This examination was interpreted and the report reviewed and electronically signed by: ROSSANA PETER MD on Dec 30 2024 11:22AM EST Results-Findings * * *Final Report* * * DATE OF EXAM: Dec 26 2024 6:27PM [facility] 0508 - CT LUMBAR SPINE WO IVCON / PROCEDURE REASON: Spinal stenosis of lumbar region, unspecified whether neurogenic claudication pr * * * * Physician Interpretation * * * * EXAMINATION: CT LUMBAR SPINE WO IVCON CLINICAL HISTORY: Chronic pain syndrome with severe low back, pelvic, and bilateral hip pain with L4-5 posterior fusion and fusion of the SI joints. COMPARISON: None available. TECHNIQUE: Standard CT of the lumbar spine was performed without IV or intrathecal contrast. CT Radiation dose: Integrated Dose-length product (DLP) for this visit = 803 mGy*cm. CT Dose Reduction Employed: Automated exposure control (AEC) FINDINGS: There are 4 lumbar type vertebrae with sacralization of L5 on the left. The left transverse process of L5 is enlarged fusing with the sacroiliac joint (Castellvi type IIIa). There are postsurgical changes of L4-5 posterior fusion bipedicular screws and bilateral fusion rods. Additional interbody cage placement at L4-5. There is been posterior decompression at L4 with bilateral laminectomies and resection of the spinous processes. There is been additional right medial facetectomy and left total facetectomy. No gross evidence of fluid collections at the surgical site within limitations of artifact and lack of intravenous contrast. Subtle dextrocurvature of the lumbar spine. No subluxation. The height of the vertebral bodies are maintained. There is irregularity at the posterior aspects of the right iliac bones at the superior aspect of the sacroiliac joints with faint calcification possibly related to previous attempted fusion with bone graft placement. No bridging callus. Minimal degenerative changes at the inferior aspects of the sacroiliac joints. No erosions. No evidence of acute osseous abnormality or destructive osseous lesion. Evaluation of the distal cord, conus, and cauda equina suboptimal without intrathecal contrast. T12-L1: No significant disc pathology or stenosis. L1-L2: No significant disc pathology or stenosis. L2-L3: Questionable protrusion the left foraminal region. Facet joints are maintained. No evidence of central canal or neural foraminal stenosis. L3-L4: Evaluation is partially obscured due to streak artifact from the posterior fusion hardware Mild concentric disc bulge. Mild left and minimal right facet arthropathy. Questionable resection of the right ligamentum flavum. Central canal suboptimally evaluated due to artifact. There appears to be mild bilateral neural foraminal stenoses within limitations of technique. L4-L5: Postsurgical changes of posterior fusion and posterior decompression. Ankylosis of the right facet joint. Central canal is suboptimally evaluated due to artifact. Neural foramina appear patent within limitations of artifact. L5-S1: Disc is maintained. Bridging discogenic osteophyte formation in the left foraminal region. Minimal right facet arthropathy. Central canal is patent. Minimal left neural femoral narrowing. Right neural foramen is patent. Moderate atrophy of the erector spinae musculature overlying the lower lumbar spine and sacrum related to the posterior fusion. Paraspinal soft tissues are otherwise unremarkable. 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 chronic pain syndrome (G89.4) Chronic pain syndrome (primary encounter diagnosis) Comment: Plan: [facility]), XR LUMBAR MOTION 4V AP/LAT/ FLEX/EXT (M96.1) Failed back syndrome Comment: Plan: [facility] TO [facility] ([facility]), CONSULT TO SPINE SURGERY, XR LUMBAR MOTION 4V AP/LAT/ FLEX/EXT (M54.9) Mechanical back pain Comment: Plan: [facility] TO [facility] ([facility]), XR LUMBAR MOTION 4V AP/LAT/ FLEX/EXT (M99.04) Segmental and somatic dysfunction of sacral region Comment: Plan: CONSULT TO SPINE SURGERY (G56.03) Bilateral carpal tunnel syndrome Comment: Plan: EMG(NEURO/NI), CONSULT TO ORTHOPAEDICS Consult orthopedic hand clinic PLAN: Consult chronic neuro pain program for evaluation of the pain Consult spine surgery second opinion prior to spinal cord stimulator trial and placement She also complains of bilateral carpal tunnel syndrome: EMG nerve conduction study, consult orthopedic hand clinic for evaluation and opinion she is not interested in carpal tunnel surgery but would like to explore other interventional procedures. Recommend to call after EMG nerve conduction study to review results Recheck as needed with medical spine X-ray lumbar flexion-extension views prior to surgical opinion Patient understands above plan; questions asked and answered. She was educated regarding signs and symptoms that would indicate a serious change in their condition, and instructed to seek care immediately should these arise. Patient agrees to plan as noted above. The duration of this appointment was more than 45 minutes of in person evaluation evaluation. At least 50% of this time was spent in counseling, explanation of diagnosis, planning of further management, and coordination This note was partially generated using [employer] voice recognition system, and there may be some incorrect words, spellings, and punctuation that were not noted in checking the note before saving Johnathan Haas MD documented in this encounter [facility] 03-02-2025 History of Present illness Narrative [facility] Inpatient/Observation/Outpatient Rehabilitation Date: 03/02/2025 Patient Name: Ashlee Jalloh [] Inpatient Acute/Observation [x] Outpatient : 1985 [] Pt refused/declined therapy at this time due to: [x] Pt cancelled due to: [] No Reason Given [] Sick/ill [x] Other: No reason given. Confirmed next appointment, 03/05 at 11am. [] Evaluation held by RN/Provider/Physical Therapist due to: [] High Heart Rate [] High Blood Pressure [] Orthopedic Consult [] Hgb < 7 [] Other: [] Pt ordered brace per physician request: [] Proper fit will be completed and education for wearing/skin checks [] Pt does not require skilled services due to: Therapist/Break Out Man will attempt to see this patient, at our earliest opportunity. Arturo Virk, PT, DPT Date: 03/02/2025 documented in this encounter [facility] 02-26-2025 Telephone encounter Note Spoke with patient on the phone. Discussed the alternatives to using the pink pillow. Patient is doing well post op. Tessie Leggett, AT, ATC [facility] Work Phone: 02-26-2025 Miscellaneous Notes Spoke with patient on the phone. Discussed the alternatives to using the pink pillow. Patient is doing well post op. Tessie Leggett, AT, ATC Pnt lvm her dog ate the pink pillow she was given post op and wanting to know how long she is supposed to use it or if its ok that she doesn't. If needed she wants to know if/where/how she can get another one documented in this encounter [facility] 02-26-2025 Telephone encounter Note Pnt lvm her dog ate the pink pillow she was given post op and wanting to know how long she is supposed to use it or if its ok that she doesn't. If needed she wants to know if/where/how she can get another one [facility] 02-24-2025 History of Present illness Narrative [facility] Outpatient Physical Therapy Evaluation Date: 02/24/2025 Patient: Ashlee Jalloh : 1985 [facility] #: [id number] Referring Physician: Rishabh Huang MD Medical Diagnosis: M24.259 Treatment Diagnosis: R hip labral repair PT Insurance Information: [facility] medicaid Total # of Visits Approved: 10 Total # of Visits to Date: 1 No Show: 0 Canceled Appointment: 0 [x] This administrative underwriter acknowledges review of patient history form Subjective Subjective: Pt s/p R hip labral repair on 02/23/25. Pain has been 7/10 for during most of the day. Objective AROM AROM LLE (degrees) L Hip Flexion (0-125): 120 L Hip ABduction (0-45): 35 Right AROM AROM RLE (degrees) R Hip Flexion (0-125): 90* R Hip ABduction (0-45): 14* Strength Strength LLE L Hip Flexion: 4/5 L Hip ABduction: 4-/5 L Hip ADduction: 4-/5 L Knee Flexion: 4/5 L Knee Extension: 4/5 Right Strength Strength RLE R Hip Flexion: 3/5 R Hip ABduction: 3/5 R Hip ADduction: 3/5 R Knee Flexion: 4/5 R Knee Extension: 4/5 Exercises: Exercise 1: HEP: glute set, prone lying, passive hip circumduction/abd/flex Exercise 2: * FOLLOW PROTOCOL IN BIN Assessment Body Structures, Functions, Activity Limitations Requiring Skilled Therapeutic Intervention: Decreased functional mobility , Decreased ADL status, Decreased ROM, Decreased body mechanics, Decreased tolerance to work activity, Decreased strength, Decreased balance, Increased pain, Decreased posture Assessment: Pt is a 40 y.o. female s/p R hip labral repair on 02/23/25. Pt currenlty with hip hinge brace on and locked at 90* flexion and 0* ext. WBing at 10lbs through R LE with ambulation with FWW. Pt demoes severe R hip ROM and strength defecits compared to L and requries increased time with transfers ambulation and ADLs. Pt would benefit from skilled therapy in order to address these deficits and return to PLOF. Therapy Prognosis: Good Decision Making: Medium Complexity Patient Education Patient Education: Pt educatated on PT POC, HEP Pt verbalized/demonstrated good understanding: [X] Yes [] No, pt required further clarification. Goals Short Term Goals Time Frame for Short Term Goals: 2 weeks Short Term Goal 1: Pt will be inititated with HEP. Short Term Goal 2: Pt will tolerate 30-40 minutes of ther ex to improve function with ADL's. Hollow Tile Partition Erector Goals Time Frame for Alf Goals : 6 weeks Alf Goal 1: Pt will independant and compliant with HEP to maintain functional gains made at therapy. Hollow Tile Partition Erector Goal 2: Pt will report 2/10 or less R hip pain on average to facilitate completion of ADL's. Alf Goal 3: Pt to improve R hip strength to 4+/5 grossly for ease with transfers and prolonged ambulation. Hollow Tile Partition Erector Goal 4: Pt to improve R hip flexion/abd to be equal to L for improved gait mechanics. Alf Goal 5: Pt to report 70% improvement in symptoms to display increased QOL. Minutes Tracking: Time In: 1115 Time Out: 1205 Minutes: 50 Timed Code Treatment Minutes: 48 Minutes MALAIKA HERNÁNDEZ PT, DPT 02/24/2025 [facility] Outpatient Physical Therapy Date: 02/24/2025 Patient: Ashlee Jalloh : 1985 CSN #: [id number] Referring Physician: Rishabh Huang MD [x] Plan of Care [] Updated Plan of Care Dates of Service to Include: 02/24/2025 to 03/24/25 Diagnosis: M24.259 Rehab (Treatment) Diagnosis: R hip labral repair Onset Date: 02/23/25 Attendance Total # of Visits to Date: 1 No Show: 0 Canceled Appointment: 0 Assessment Body Structures, Functions, Activity Limitations Requiring Skilled Therapeutic Intervention: Decreased functional mobility , Decreased ADL status, Decreased ROM, Decreased body mechanics, Decreased tolerance to work activity, Decreased strength, Decreased balance, Increased pain, Decreased posture Assessment: Pt is a 40 y.o. female s/p R hip labral repair on 02/23/25. Pt currenlty with hip hinge brace on and locked at 90* flexion and 0* ext. WBing at 10lbs through R LE with ambulation with FWW. Pt demoes severe R hip ROM and strength defecits compared to L and requries increased time with transfers ambulation and ADLs. Pt would benefit from skilled therapy in order to address these deficits and return to PLOF. Goals Short Term Goals Time Frame for Short Term Goals: 2 weeks Short Term Goal 1: Pt will be inititated with HEP. Short Term Goal 2: Pt will tolerate 30-40 minutes of ther ex to improve function with ADL's. Alf Goals Time Frame for Alf Goals : 6 weeks Hollow Tile Partition Erector Goal 1: Pt will independant and compliant with HEP to maintain functional gains made at therapy. Hollow Tile Partition Erector Goal 2: Pt will report 2/10 or less R hip pain on average to facilitate completion of ADL's. Alf Goal 3: Pt to improve R hip strength to 4+/5 grossly for ease with transfers and prolonged ambulation. Alf Goal 4: Pt to improve R hip flexion/abd to be equal to L for improved gait mechanics. Hollow Tile Partition Erector Goal 5: Pt to report 70% improvement in symptoms to display increased QOL. Prognosis Therapy Prognosis: Good Treatment Plan Plan Frequency: 2 Plan weeks: 4 [x] HP/CP [x] Electrical Stim [x] Therapeutic Exercise [x] Gait Training [x] Aquatics [] Ultrasound [x] Patient Education/HEP [x] Manual Therapy [] Traction [x] Neuro-farshad [x] Soft Tissue Mobs [] Therapeutic Activity [] Iontophoresis [] Orthotic casting/fitting [] Dry Needling [] Blood Flow Restriction [] Vasopneumatic Compression [x] Vasopneumatic Compression/Cold [] Vestibular Rehabilitation Electronically signed by: MALAIKA HERNÁNDEZ PT, DPT Date: 02/24/2025 Date: 02/24/2025 Physician Signature documented in this encounter [facility] 02-23-2025 Note HNO ID: [id number] Author: NIESHA CHAUDHRY APRN.LICENSED NUCLEAR OPERATOR Service: ? Author Type: Nurse Utilization Supervisor Type: Anesthesia Procedure Notes Filed: 02/23/2025 07:54 Note Text: ANESTHESIOLOGY PROCEDURE NOTE Airway General Information Procedure Start Time/Medication Administration: 02/23/2025 7:37 AM Procedure End Time: 02/23/2025 7:41 AM Patient location during procedure: OR Timeout Performed Pre-procedure: timeout performed Consent Obtained: Yes Patient identity confirmed: arm band and patient Staffing Performed by: LICENSED NUCLEAR OPERATOR Indications and Patient Condition Indications for airway management: anesthesia Preoxygenated: yes anesthesia circuit Method: sleep Difficult Mask: No Airway Accessory: oral airway Final Airway Details Final airway type: endotracheal airway Final Endotracheal Airway: ETT Cuffed: yes Successful intubation technique: video laryngoscopy Devices used: Ann and intubating stylet Endotracheal tube insertion site: oral Blade: Giovanna Blade size: #3 ETT size (mm): 7.0 Measured from: lips Measurement (cm): 21 Placement verified by: chest auscultation and capnometry Cormack-Lehane Classification: grade I - full view of glottis Number of attempts at approach: 1 Airway not difficult SIGNATURE: Niesha Chaudhry APRN.LICENSED NUCLEAR OPERATOR PATIENT NAME: Ashlee Jalloh DATE: February 23, 2025 TIME: 7:53 AM CSN: [id number] [facility] 02-23-2025 Note HNO ID: [id number] Author: JAS YIP III, MD Service: Anesthesiology Author Type: Anesthesiologist Type: Anesthesia Procedure Notes Filed: 02/23/2025 07:32 Note Text: ANESTHESIOLOGY PROCEDURE NOTE Peripheral Nerve Block General Information Procedure Start Time/Medication Administration: 02/23/2025 7:23 AM Procedure End time: 02/23/2025 7:29 AM Patient location during procedure: pre-op Timeout Performed Pre-procedure: timeout performed Consent Obtained: Yes Patient identity confirmed: arm band and patient Reason for block: post-op pain management/at surgeon's request Staffing Anesthesiologist: Jas Yip III, MD Performed by: anesthesiologist Preparation Sterility Preparation: hand hygiene performed prior to procedure, sterile gloves, drapes, and procedure tray, surgical cap used, mask used, sterile drape used during line insertion, skin prep agent completely dried prior to procedure Site Prep: Chloraprep Pre-Procedure Neuro Exam Location: RLE Sensory: intact Motor: intact Procedure Details Patient Position: supine Monitoring: Pulse OX, EKG and NIBP Block Type Lower Extremity: MALAIKA Laterality: right Injection Technique: single-shot Ultrasound Guided: Yes Image in Chart: Yes Local Infiltration: Yes Needle Needle Type: echogenic Needle Gauge: 21 G Needle Length: 100 mm Needle Localization: ultrasound Assessment Injection assessment: negative aspiration, no paresthesia on injection, incremental injection and local visualized surrounding nerve on ultrasound Paresthesia: none Post-Procedure Neuro Exam Expected Regional Anesthesia: Yes Medications Administered dexamethasone sodium phosphate injection (DECADRON) - peripheral nerve block 4 mg - 02/23/2025 7:23:00 AM ropivacaine (PF) 5 mg/mL (0.5 %) injection (NAROPIN) - peripheral nerve block 20 mL - 02/23/2025 7:23:00 AM SIGNATURE: Jas Yip MD PATIENT NAME: Ashlee Jalloh DATE: February 23, 2025 TIME: 7:32 AM CSN: [id number] [facility] 02-20-2025 Note HNO ID: [id number] Author: MADYSON VILLAFUERTE PA-C Service: ? Author Type: Physician Break Out Man Type: Progress Notes Filed: 02/20/2025 07:51 Note Text: I have personally reviewed Noemi Francis ATC note. I agree with the findings as documented. Other additions or changes: none Office note and Imaging reviewed HDAI reviewed Consent initiated Madyson Villafuerte PA-C February 20, 2025 7:50 AM [facility] 02-20-2025 History of Present illness Narrative I have personally reviewed Noemi Francis ATC note. I agree with the findings as documented. Other additions or changes: none Office note and Imaging reviewed HDAI reviewed Consent initiated Madyson Villafuerte PA-C February 20, 2025 7:50 AM Spoke with patient on the phone regarding scheduling surgery for their right hip with Dr. Encarnacion. Procedure: Right hip arthroscopy - Labral repair, Arthroscopic cam impingement femoroplasty, and Arthroscopic pincer impingement acetabuloplasty. Location: [facility] Date: 02-23-25 Last office visit: 01-07-25 Insurance: [place] Home: [address] [place] [id number] BMI: There is no height or weight on file to calculate BMI. Work status/ occupation: Unknown BWC: No [facility]: [facility] Brace fitting: Yes - will call Emmett medina for brace fitting appointment Crutches: Yes - Knows how to use: Yes Physical therapy: Outpatient PT starting POD 1 XR: 01-05-25 MRI: 11-14-24 - right hip labral tear Block: Yes CPM: No Pre op instructions sent via [employer]. Medications: pregabalin (LYRICA) 50 mg capsule Take 1 capsule by mouth three times a day for 90 days. Gzevg-8-[id number]-EPA-Fish Oil (FISH OIL) 1,000 (120-180) mg cap Take 1 capsule by mouth once daily. esomeprazole (NEXIUM) 20 mg capsule Take 20 mg by mouth once daily. BASE, PCCA VANPEN crea Apply 1 application to affected area once daily. ibuprofen (MOTRIN) 400 mg tablet Take 1 tablet by mouth every 6 hours as needed. MOBIC 15 mg tablet Take 15 mg by mouth once daily. naproxen (NAPROSYN) 250 mg tablet Take 250 mg by mouth two times a day with meals. ubrogepant (UBRELVY) 100 mg tablet Take 100 mg by mouth once daily as needed. Allergies: ALLERGIES Allergen Reactions Nalbuphine Intolerance, Vomiting, Other: See Comments, Rash Pt vomited after being given Nubain in the past pt states when taking it becamse dizzy and nauseated was pregant had to be rushed back to surgery. Adhesive Tape (Palak* Rash Cloth tape, tears skin and welts Risk Assessment Hx DVT - No FHx DVT - No Bleeding Disorder - No Anticoagulation - No Hx of skin infection MRSA or Staph - No Current use of prescription pain medication - No If yes prescriber name: N/A Pain management issues YES - Dr. Huang - [facility] - will reach out to provider to help coordinate post op plan. Sleep Apnea - No Asthma - No Diabetes - No Insulin - No Thyroid disease - No Heart disease murmur, irregular heart beat - No Pace Maker - No Defibrillator - No Liver disease - No Kidney disease - No Prior anesthesia complications - No Tessie Leggett, AT, ATC documented in this encounter [facility] 02-19-2025 History of Present illness Narrative Reason for Appointment: Patient ID: Ashlee Jalloh is a 40 y.o. female who presents for Well Women Visit Patient presents today for Annual Exam. and Consult appointment. MEDICATIONS Current Outpatient Medications Medication Instructions esomeprazole (NexIUM) [address] capsule 1 capsule, Every 24 hours estradiol (Estrace) 0.1 MG/GM vaginal cream 2g vaginal daily for 2 weeks, then 2 times weekly following initial 2 weeks phentermine (ADIPEX-P) 37.5 mg, Daily before breakfast pregabalin (LYRICA) 25 mg, 3 times daily ALLERGIES Allergies Allergen Reactions Nalbuphine Dizziness, GI intolerance, Nausea And Vomiting, Nausea Only, Palpitations and Rash Pt vomited after being given Nubain in the past Other Reaction(s): unknown, during labor in 2008 Other Reaction(s): Intolerance, Other: See Comments, Vomiting Pt vomited after being given Nubain in the past pt states when taking it becamse dizzy and nauseated was pregant had to be rushed back to surgery. Silicone Hives Other Reaction(s): Unknown Wound Dressing Adhesive Rash Cloth tape, tears skin and welts PROBLEMS Active Ambulatory Problems Diagnosis Date Noted Abnormal cervical Papanicolaou smear 03/23/2023 Complex ovarian cyst 03/23/2023 Depression 03/23/2023 Kidney stone 03/23/2023 Low grade squamous intraepithelial lesion (LGSIL) on cervicovaginal cytologic smear 03/23/2023 Obesity 03/23/2023 Pruritus of vagina 03/23/2023 Examination for, follow-up 03/23/2023 Pelvic pain in female 06/19/2023 Postoperative visit 06/19/2023 Other constipation 02/14/2024 Well woman exam with routine gynecological exam 02/14/2024 Resolved Ambulatory Problems Diagnosis Date Noted No Resolved Ambulatory Problems Past Medical History: Diagnosis Date Encounter for Papanicolaou smear of vagina following prior abnormal smear Low grade squamous intraepithelial lesion (LGSIL) on cervical Pap smear Obesity (BMI 30.0-34.9) Vaginal itching Well woman exam HISTORY PAST MEDICAL HISTORY SOCIAL HISTORY Past Medical History: Diagnosis Date Complex ovarian cyst Depression Encounter for Papanicolaou smear of vagina following prior abnormal smear Kidney stone Low grade squamous intraepithelial lesion (LGSIL) on cervical Pap smear Obesity (BMI 30.0-34.9) Vaginal itching Well woman exam Social History Tobacco Use Smoking status: Never Smokeless tobacco: Never Substance Use Topics Alcohol use: Never Drug use: Never FAMILY HISTORY Family History Problem Relation Name Age of Onset Breast cancer Mother Michelle Arthritis Father Hyperlipidemia Maternal Grandmother ?? Hypertension Maternal Grandmother ?? Hyperlipidemia Maternal Grandfather ?? Hypertension Maternal Grandfather ?? Hyperlipidemia Paternal Grandmother ?? Hypertension Paternal Grandmother ?? Arthritis Paternal Grandfather ?? Hypertension Paternal Grandfather ?? Hyperlipidemia Paternal Grandfather ?? SURGICAL HISTORY Past Surgical History: Procedure Laterality Date BACK SURGERY x2 SECTION, LOW TRANSVERSE x 2- 01/27/2009 , 05/24/2017 HYSTERECTOMY 03/25/2021 Abdominal Hysterectomy LAPAROSCOPY DIAGNOSTIC / BIOPSY / ASPIRATION / LYSIS 06/08/2023 MR ANGIOGRAM HEAD WO IV CONTRAST 07/29/2020 MR ANGIOGRAM HEAD WO IV CONTRAST 07/29/2020 TUBAL LIGATION REVIEW OF SYSTEMS Review of Systems: Review of Systems Constitutional: Negative. HENT: Negative. Eyes: Negative. Respiratory: Negative. Cardiovascular: Negative. Gastrointestinal: Negative. Genitourinary: Positive for pelvic pain. Musculoskeletal: Negative. Skin: Negative. Neurological: Negative. All other systems reviewed and are negative. Hematological: Negative. Endocrine: Negative. Allergic/Immunologic: Negative. OBJECTIVE Objective: Physical Exam Constitutional: Appearance: Normal appearance. She is well-developed. Genitourinary: Vulva normal. Vaginal cuff intact. Cervix is absent. Uterus is absent. Breasts: Breasts are soft. Right: Normal. Left: Normal. Cardiovascular: Rate and Rhythm: Normal rate and regular rhythm. Abdominal: General: Bowel sounds are normal. There is no distension. Palpations: Abdomen is soft. Tenderness: There is no abdominal tenderness. There is no guarding or rebound. Musculoskeletal: General: No swelling. Normal range of motion. Right lower leg: No edema. Left lower leg: No edema. Neurological: Mental Status: She is alert and oriented to person, place, and time. Skin: General: Skin is warm and dry. Psychiatric: Mood and Affect: Mood normal. Behavior: Behavior normal. Vitals and nursing note reviewed. Exam conducted with a lead business analyst present. Vitals: Estimated body mass index is 32.61 kg/m as calculated from the following: Height as of 02/14/24: 5' 4 . Weight as of 01/28/25: 190 lb. BP: Patient's last menstrual period was 02/08/2021. ASSESSMENT & PLAN ICD-10-CM 1. Well woman exam with routine gynecological exam Z01.419 THIN PREP TIS PAP AND HR HPV DNA 2. Breast cancer screening by mammogram Z12.31 Bilateral screening mammogram Bilateral screening mammogram Annual: Patient presents today for an annual exam. Patient states she is doing well and has complaints pelvic pain where her ovaries are. Discussed ordering US to have done to assess for pain. Pap was obtained without difficulty and patient given mammogram order to have scheduled/obtained. Patient voiced no difference with Estrogen cream that was given. Discussed possibly trying a new vaginal capsule. Patient given samples of vaginal capsule. Orders Placed This Encounter Procedures Bilateral screening mammogram Follow Up: Patient is to return in one year for annual unless needed otherwise. Documented by Rebeca Holloway LPN on behalf of: Tori Farmer PA-C documented in this encounter [facility] 02-16-2025 History and physical note Images from the original note were not included. [facility] HISTORY AND PHYSICAL EXAMINATION SERVICE DATE: 02/16/2025 SERVICE TIME: 8:01 AM PRIMARY CARE PHYSICIAN: No primary care provider on file. Assessment 1. Pre-op exam (Primary) Surgery 02/23/2025 2. Gastroesophageal reflux disease, unspecified whether esophagitis present Stable on esomeprazole (Nexium) 3. Obese Estimated body mass index is 32.01 kg/m as calculated from the following: Height as of this encounter: 162.6 cm (5' 4 ). Weight as of this encounter: 84.6 kg (186 lb 8.2 oz). On phentermine, last dose was 02/15/25. Advised to hold one week for surgery. ANESTHESIA FINDINGS: Intubation History: No history of difficult intubation Significant Anesthesia Considerations: potential slow emergence Airway History: No history of difficult airway Gifford Activity Status Index: METS: Walk indoors, such as around the house (1.75 METs) Do light work around the house, such as dusting or washing dishes (2.70 METs) Take care of self; that is eating, dressing, bathing, using the toilet (2.75 METs) Walk a block or two on level ground (2.75 METs) Do moderate work around the house, such as vacuuming, sweeping floors, or carrying in groceries (3.50 METs) Climb a flight of stairs or walk up a hill (5.50 METs) DASI Score: 18.95 (PT 2 times a week ) Patient denies any chest pain or undue shortness of breath with the above physical activity. Clinical Frailty Scale: 3. Well, with treated comorbid disease STOP-Bang Score: Snores loudly Denies feeling tired, fatigued, or sleepy during the daytime Has not been observed to stop breathing or choking/gasping during sleep Denies having high blood pressure BMI less than or equal to 35 kg/m^2 Patient 50 years old or younger Does not have a large neck Non-male patient STOP-Bang Score: 1 I - PHYSICAL EVALUATION AIRWAY Patient intubated: No. Tracheostomy tube not present Mallampati: I. TM distance: >3 FB. Neck ROM: full ROM without neurological symptoms. Mouth opening: adequate. Short neck: no. Thick neck: no Lip Bite Test: II Microretrognathia/Micronagthia/R ecessed Chin: No DENTAL Normal dental observations. Additional comments: 2 broken molars. II - ANESTHESIA PLAN Beta Lisa Monitoring Plan Post Procedure Analgesic Plan Prepared for Surgery: optimally prepared for surgery. CONSULTS: Patient does not require consults for optimization at this time. Planned Anesthetic: anesthesia choice The Following Tests/Procedures Have Been Initiated: Orders Placed This Encounter Phentermine HCl 37.5 mg tablet Sig: Take 37.5 mg by mouth. , Labs not indicated per [facility] protocol, EKG not indicated per [facility] protocol REASON FOR VISIT: Ashlee Jalloh is a 40 year old female who is scheduled for Right - ARTHROSCOPY HIP W/ LABRAL REPAIR at the request of Dr. Deniz Encarnacion for consultation. My final recommendation will be communicated back to the requesting physician by way of shared medical record or letter. CHIEF COMPLAINT: Hip pain HPI: Patient is a 40 year old female presenting for pre-anesthesia consultation with robin Morton. Patient has been having right hip pain for the last several years which has progressively gotten worse. Patient also has history of a lumbar fusion and discectomy which causes back pain. She has noticed that she typically has an increase of hip pain when her back pain is flaring and vice versa. Currently rates pain 6/10 today and describes as an aching sensation. She will have a sharp scalpel cutting sensation with movement. Pain can radiate down her right leg at times. Relieving factors include pregabalin. Endorses numbness in both of her legs intermittently. Today she has numbness in bilateral feet. Denies any previous injuries or surgeries on her right hip in the past. Patient has been recommended for above surgery. Subjective ACTIVE PROBLEM LIST Gastroesophageal Reflux Disease Obesity, Class I, Bmi 30-34.9 Covid Immunization Dates Current Care Gaps Covid-19 Vaccine () Overdue since 05/11/2024 02/25/2021 Imm Admin: COVID-19 original vaccine, age 12+ yr, monovalent (PFIZER-BIONTECH - PURPLE TOP) 02/04/2021 Imm Admin: COVID-19 original vaccine, age 12+ yr, monovalent (PFIZER-BIONTECH - PURPLE TOP) REVIEW OF SYSTEMS: PAIN ASSESSMENT: General: No weight loss, malaise or fevers. 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 No neurological symptoms or problems. Respiratory: No history of current cough or dyspnea, or pneumonia in the past 6 weeks. No history of respiratory/pulmonary symptoms or problems. Cardiovascular: No history of HTN requiring medication, no history of angina, CHF, CA, cardiac surgery or stents. Denies rest pain, gangrene or revascularization/amputation for PVD. No history of cardiovascular symptoms or problems. GI:+gerd, IBS Denies abdominal pain, nausea, vomiting, diarrhea, constipation, hematochezia, melena. :+kidney stones Denies hematuria, dysuria, frequency, urgency, nocturia, difficulty initiating or maintaining a stream, flank pain. Endocrine: No history of diabetes. Has not taken steroids within the past 30 days. No history of endocrinological symptoms or problems. Hematology: No history of bleeding or clotting disorder. Pt is not taking anti-coagulation or platelet medications. No history of hematological symptoms or problems. Oncology: No history of CA metastasis, chemo within 30 days, or radiotherapy within 90 days. Has not lost 10% of body wt in 6 months. No history of oncological symptoms or problems. Psych: Anxiety, Depression Denies any suicidal or homicidal thoughts. Musculoskeletal: See HPI Skin: Negative for lesions, rash and itching. History reviewed. No pertinent past medical history. PAST SURGICAL HISTORY Procedure Laterality Date ARTHRD ANT INTERBODY MIN DSC LUMBAR L4-5 SECTION HX x 2 PAST SURGICAL HISTORY OF Bilateral SI joint fusion S PROBE PERC LUMBAR DISCECTOMY L4-5 History reviewed. No pertinent family history. Social History Tobacco Use Smoking status: Never Smokeless tobacco: Never Substance Use Topics Alcohol use: Not Currently Drug use: Never MEDICATIONS: Prior to Admission medications as of 02/16/25 0739 Medication Sig Last Dose Taking Phentermine HCl 37.5 mg tablet Take 37.5 mg by mouth. Yes pregabalin (LYRICA) 50 mg capsule Take 1 capsule by mouth three times a day for 90 days. Yes esomeprazole (NEXIUM) 20 mg capsule Take 20 mg by mouth once daily. Yes BASE, PCCA VANPEN crea Apply 1 application to affected area once daily. Yes ibuprofen (MOTRIN) 400 mg tablet Take 1 tablet by mouth every 6 hours as needed. Yes naproxen (NAPROSYN) 250 mg tablet Take 250 mg by mouth two times a day with meals. Patient taking differently: Take 250 mg by mouth two times a day with meals. Yes ubrogepant (UBRELVY) 100 mg tablet Take 100 mg by mouth once daily as needed. Yes Seqyw-0-VKP-EPA-Fish Oil (FISH OIL) 1,000 (120-180) mg cap Take 1 capsule by mouth once daily. Patient not taking: Reported on 02/16/2025 MOBIC 15 mg tablet Take 15 mg by mouth once daily. Patient not taking: Reported on 02/16/2025 No medication comments found. CURRENT ALLERGIES: ALLERGIES Allergen Reactions Nalbuphine Intolerance, Vomiting, Other: See Comments, Rash Pt vomited after being given Nubain in the past pt states when taking it becamse dizzy and nauseated was pregant had to be rushed back to surgery. Adhesive Tape (Palak* Rash Cloth tape, tears skin and welts Objective PHYSICAL EXAM: VITALS: Pain Pain Level: 6 Pain Location: (right hip and lower back) Description: Aching Duration Amount of Time: 24 Duration Units: Hours Frequency: Continuous Intervention/Comfort measure: Medication, Relaxation, Cold, Exercise, Heat, Massage, Pillow support Comments: Pain in back, hips, knees both sides BP 99/67 Pulse 68 Temp (Src) 97.3 (Temporal) Resp 18 Ht 5' 4 (1.63m) Wt 186 lb 8.2 oz (84.6kg) SpO2 99% BMI 32.00 kg/(m^2). General: Alert and oriented, No acute distress, Obese Skin: Normal color, no rash, no lesions. HEENT: EOM, pupils equal, round and reactive. Cardiovascular: Normal S1 & S2, no rubs, murmurs or gallops. No JVD. Pulse regular. Lungs: Normal breath sounds, no wheezes or crackles. Abdomen: Soft, non-tender, no rigidity., Positive bowel sounds Extremities: No deformity, no edema or tenderness, no joint swelling or clubbing. Neurological: Normal cognition and motor skills. Pulses: Carotid and radial pulses normal +2. Diagnostic tests reviewed for today's visit: Lab Value Units Date High Low HB No results within date range. HCT No results within date range. WBC No results within date range. PLT No results within date range. NA No results within date range. K No results within date range. GLUC No results within date range. BUN No results within date range. CREAT No results within date range. PTSEC No results within date range. INR No results within date range. APTT No results within date range. ALT No results within date range. AST No results within date range. TBILI No results within date range. TSH No results within date range. Lab Value Units Date High Low HCGQT No results within date range. UHCG No results within date range. HCG, BODY* No results within date range. Lab Value Units Date High Low ABORHD No results within date range. ABSCREEN No results within date range. No results found for: HBA1C Instructions Given to Patient: Instructions located in the after visit summary. Patient given verbal and written preop instructions and voices comprehension and compliance. Consent Recording using [employer] software for draft documentation of the visit was discussed with the patient/authorized customer assistance representative; all questions welcomed and answered. Patient/authorized customer assistance representative agreed to proceed SIGNATURE: Blessing Horvath PA-C PATIENT NAME: Ashlee Jalloh DATE: 02/16/2025 TIME: 8:13 AM PAGER/CONTACT #: [facility] 02-16-2025 History and physical note Images from the original note were not included. [facility] HISTORY AND PHYSICAL EXAMINATION SERVICE DATE: 02/16/2025 SERVICE TIME: 8:01 AM PRIMARY CARE PHYSICIAN: No primary care provider on file. Assessment 1. Pre-op exam (Primary) Surgery 02/23/2025 2. Gastroesophageal reflux disease, unspecified whether esophagitis present Stable on esomeprazole (Nexium) 3. Obese Estimated body mass index is 32.01 kg/m as calculated from the following: Height as of this encounter: 162.6 cm (5' 4 ). Weight as of this encounter: 84.6 kg (186 lb 8.2 oz). On phentermine, last dose was 02/15/25. Advised to hold one week for surgery. ANESTHESIA FINDINGS: Intubation History: No history of difficult intubation Significant Anesthesia Considerations: potential slow emergence Airway History: No history of difficult airway Gifford Activity Status Index: METS: Walk indoors, such as around the house (1.75 METs) Do light work around the house, such as dusting or washing dishes (2.70 METs) Take care of self; that is eating, dressing, bathing, using the toilet (2.75 METs) Walk a block or two on level ground (2.75 METs) Do moderate work around the house, such as vacuuming, sweeping floors, or carrying in groceries (3.50 METs) Climb a flight of stairs or walk up a hill (5.50 METs) DASI Score: 18.95 (PT 2 times a week ) Patient denies any chest pain or undue shortness of breath with the above physical activity. Clinical Frailty Scale: 3. Well, with treated comorbid disease STOP-Bang Score: Snores loudly Denies feeling tired, fatigued, or sleepy during the daytime Has not been observed to stop breathing or choking/gasping during sleep Denies having high blood pressure BMI less than or equal to 35 kg/m^2 Patient 50 years old or younger Does not have a large neck Non-male patient STOP-Bang Score: 1 I - PHYSICAL EVALUATION AIRWAY Patient intubated: No. Tracheostomy tube not present Mallampati: I. TM distance: >3 FB. Neck ROM: full ROM without neurological symptoms. Mouth opening: adequate. Short neck: no. Thick neck: no Lip Bite Test: II Microretrognathia/Micronagthia/R ecessed Chin: No DENTAL Normal dental observations. Additional comments: 2 broken molars. II - ANESTHESIA PLAN Beta Lisa Monitoring Plan Post Procedure Analgesic Plan Prepared for Surgery: optimally prepared for surgery. CONSULTS: Patient does not require consults for optimization at this time. Planned Anesthetic: anesthesia choice The Following Tests/Procedures Have Been Initiated: Orders Placed This Encounter Phentermine HCl 37.5 mg tablet Sig: Take 37.5 mg by mouth. , Labs not indicated per [facility] protocol, EKG not indicated per [facility] protocol REASON FOR VISIT: Ashlee Jalloh is a 40 year old female who is scheduled for Right - ARTHROSCOPY HIP W/ LABRAL REPAIR at the request of Dr. Deniz Encarnacion for consultation. My final recommendation will be communicated back to the requesting physician by way of shared medical record or letter. CHIEF COMPLAINT: Hip pain HPI: Patient is a 40 year old female presenting for pre-anesthesia consultation with robin Morton. Patient has been having right hip pain for the last several years which has progressively gotten worse. Patient also has history of a lumbar fusion and discectomy which causes back pain. She has noticed that she typically has an increase of hip pain when her back pain is flaring and vice versa. Currently rates pain 6/10 today and describes as an aching sensation. She will have a sharp scalpel cutting sensation with movement. Pain can radiate down her right leg at times. Relieving factors include pregabalin. Endorses numbness in both of her legs intermittently. Today she has numbness in bilateral feet. Denies any previous injuries or surgeries on her right hip in the past. Patient has been recommended for above surgery. Subjective ACTIVE PROBLEM LIST Gastroesophageal Reflux Disease Obesity, Class I, Bmi 30-34.9 Covid Immunization Dates Current Care Gaps Covid-19 Vaccine (3 - 2024-25 season) Overdue since 05/11/2024 02/25/2021 Imm Admin: COVID-19 original vaccine, age 12+ yr, monovalent ([facility] - [facility]) 02/04/2021 Imm Admin: COVID-19 original vaccine, age 12+ yr, monovalent ([facility] - [facility]) REVIEW OF SYSTEMS: PAIN ASSESSMENT: General: No weight loss, malaise or fevers. 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 No neurological symptoms or problems. Respiratory: No history of current cough or dyspnea, or pneumonia in the past 6 weeks. No history of respiratory/pulmonary symptoms or problems. Cardiovascular: No history of HTN requiring medication, no history of angina, CHF, CA, cardiac surgery or stents. Denies rest pain, gangrene or revascularization/amputation for PVD. No history of cardiovascular symptoms or problems. GI:+gerd, IBS Denies abdominal pain, nausea, vomiting, diarrhea, constipation, hematochezia, melena. :+kidney stones Denies hematuria, dysuria, frequency, urgency, nocturia, difficulty initiating or maintaining a stream, flank pain. Endocrine: No history of diabetes. Has not taken steroids within the past 30 days. No history of endocrinological symptoms or problems. Hematology: No history of bleeding or clotting disorder. Pt is not taking anti-coagulation or platelet medications. No history of hematological symptoms or problems. Oncology: No history of CA metastasis, chemo within 30 days, or radiotherapy within 90 days. Has not lost 10% of body wt in 6 months. No history of oncological symptoms or problems. Psych: Anxiety, Depression Denies any suicidal or homicidal thoughts. Musculoskeletal: See HPI Skin: Negative for lesions, rash and itching. History reviewed. No pertinent past medical history. PAST SURGICAL HISTORY Procedure Laterality Date ARTHRD ANT INTERBODY MIN DSC LUMBAR L4-5 SECTION HX x 2 PAST SURGICAL HISTORY OF Bilateral SI joint fusion S PROBE PERC LUMBAR DISCECTOMY L4-5 History reviewed. No pertinent family history. Social History Tobacco Use Smoking status: Never Smokeless tobacco: Never Substance Use Topics Alcohol use: Not Currently Drug use: Never MEDICATIONS: Prior to Admission medications as of 02/16/25 0739 Medication Sig Last Dose Taking Phentermine HCl 37.5 mg tablet Take 37.5 mg by mouth. Yes pregabalin (LYRICA) 50 mg capsule Take 1 capsule by mouth three times a day for 90 days. Yes esomeprazole (NEXIUM) 20 mg capsule Take 20 mg by mouth once daily. Yes BASE, PCCA VANPEN crea Apply 1 application to affected area once daily. Yes ibuprofen (MOTRIN) 400 mg tablet Take 1 tablet by mouth every 6 hours as needed. Yes naproxen (NAPROSYN) 250 mg tablet Take 250 mg by mouth two times a day with meals. Patient taking differently: Take 250 mg by mouth two times a day with meals. Yes ubrogepant (UBRELVY) 100 mg tablet Take 100 mg by mouth once daily as needed. Yes Aocid-1-IKH-EPA-Fish Oil (FISH OIL) 1,000 (120-180) mg cap Take 1 capsule by mouth once daily. Patient not taking: Reported on 02/16/2025 MOBIC 15 mg tablet Take 15 mg by mouth once daily. Patient not taking: Reported on 02/16/2025 No medication comments found. CURRENT ALLERGIES: ALLERGIES Allergen Reactions Nalbuphine Intolerance, Vomiting, Other: See Comments, Rash Pt vomited after being given Nubain in the past pt states when taking it becamse dizzy and nauseated was pregant had to be rushed back to surgery. Adhesive Tape (Palak* Rash Cloth tape, tears skin and welts Objective PHYSICAL EXAM: VITALS: Pain Pain Level: 6 Pain Location: (right hip and lower back) Description: Aching Duration Amount of Time: 24 Duration Units: Hours Frequency: Continuous Intervention/Comfort measure: Medication, Relaxation, Cold, Exercise, Heat, Massage, Pillow support Comments: Pain in back, hips, knees both sides BP 99/67 Pulse 68 Temp (Src) 97.3 (Temporal) Resp 18 Ht 5' 4 (1.63m) Wt 186 lb 8.2 oz (84.6kg) SpO2 99% BMI 32.00 kg/(m^2). General: Alert and oriented, No acute distress, Obese Skin: Normal color, no rash, no lesions. HEENT: EOM, pupils equal, round and reactive. Cardiovascular: Normal S1 & S2, no rubs, murmurs or gallops. No JVD. Pulse regular. Lungs: Normal breath sounds, no wheezes or crackles. Abdomen: Soft, non-tender, no rigidity., Positive bowel sounds Extremities: No deformity, no edema or tenderness, no joint swelling or clubbing. Neurological: Normal cognition and motor skills. Pulses: Carotid and radial pulses normal +2. Diagnostic tests reviewed for today's visit: Lab Value Units Date High Low HB No results within date range. HCT No results within date range. WBC No results within date range. PLT No results within date range. NA No results within date range. K No results within date range. GLUC No results within date range. BUN No results within date range. CREAT No results within date range. PTSEC No results within date range. INR No results within date range. APTT No results within date range. ALT No results within date range. AST No results within date range. TBILI No results within date range. TSH No results within date range. Lab Value Units Date High Low HCGQT No results within date range. UHCG No results within date range. HCG, BODY* No results within date range. Lab Value Units Date High Low ABORHD No results within date range. ABSCREEN No results within date range. No results found for: HBA1C Instructions Given to Patient: Instructions located in the after visit summary. Patient given verbal and written preop instructions and voices comprehension and compliance. Consent Recording using [employer] software for draft documentation of the visit was discussed with the patient/authorized customer assistance representative; all questions welcomed and answered. Patient/authorized customer assistance representative agreed to proceed SIGNATURE: Blessing Horvath PA-C PATIENT NAME: Ashlee Jalloh DATE: 02/16/2025 TIME: 8:13 AM PAGER/CONTACT #: documented in this encounter [facility] 02-13-2025 Instructions Blessing Horvath PA-C - 02/13/2025 8:38 AM EDT [facility] PATIENT PREOPERATIVE INSTRUCTIONS Deniz Encarnacion MD has scheduled you for your procedure at this surgery center: [facility]: [phone] --[address] [address]. Please read below carefully for your personalized instructions. Arrival Time for Surgery: - The Surgery Center or hospital where you are having surgery will call the afternoon before surgery (or Sunday for Sunday surgery) with a scheduled arrival time. - If you have not heard by 4 pm, please contact the surgery center above. Please be aware that emergency situations arise, which may delay or change your surgical time. If this happens, we will notify you as soon as possible and regret any inconvenience. Dietary Restrictions: - No solid food after midnight. - You may have 12 ounces of clear liquids (water, clear juices such as apple juice or gatorade, carbonated beverages, clear tea, black coffee, jello) until 2 hours before scheduled arrival at facility. Medications: Unless instructed differently below, stay on all of your medications until your surgery. Approved medications to take the morning of surgery with a sip of water: esomeprazole (Nexium) Hold phentermine for one week prior to surgery. - Your pain medication may cause thinning of your blood. Please see directions for Blood Thinning Medications. If you start any new medications after today's visit, please contact the surgeon's office. If you are currently using a nore-nzf-otra injectable or oral medication for diabetes or weight loss such as Dulaglutide (Trulicity), Exenatide (Byetta, Bydureon), Liraglutide (Victoza, Saxenda), Semaglutide (Ozempic, Wegovy, Rybelsus), or Tirzepatide (Mounjaro), the medicine should be stopped at least 7 days before surgery. These medicines can cause food to remain in your stomach for a very long time and increase the risks from surgery and anesthesia. Not stopping the medication for a long enough time may result in your surgery being rescheduled. Blood Thinning Medications: - Stop NSAIDS (Ibuprofen, Advil, Aleve, Motrin, Celebrex, Mobic, etc.) 7 days before surgery, as directed by your surgeon. - Stop Aspirin 7 days before surgery, as directed by your surgeon. - Stop ALL herbals and dietary supplements 7 days before surgery. - You may take Tylenol (Acetaminophen) or any of your pain medications that do not contain aspirin or NSAIDS as needed. Important Reminders: - Candy, mints, and tobacco products are NOT permitted the morning of surgery. - Hearing aids and glasses may be worn the morning of surgery. - You may wear partials and dentures morning of surgery, but you may be asked to remove them prior to your procedure. - NO jewelry, body piercings, makeup, hairpins or contacts are to be worn the day of surgery. If you develop symptoms such as a fever, cold, or flu, or have other changes to your health within TWO DAYS of scheduled surgery or the morning of surgery, please contact the surgery center above. Personal Belongings: -Please have photo ID and insurance cards. -If you do not have a copy of advance directives on file with us, please bring a copy with you on the day of surgery. - Leave ALL valuables and money at home or with family members. For Outpatient Procedures: - YOU MUST HAVE A RESPONSIBLE VENDING SERVICE TECHNICIAN TAKE YOU HOME. A FINISH REMOVER OR PIGMENT PUSHER CANNOT BE MADE A RESPONSIBLE VENDING SERVICE TECHNICIAN. - We recommend that a responsible person stays with you overnight to take care of you. - You cannot stay in a hotel alone after outpatient surgery. You will not be permitted to have your surgery, if you do not have someone to take care of you. If you already have an Advance Directive, please fax a copy to [phone] or email to for it to be added to your chart. If you do not have an Advance Directive, you can find the appropriate form and more information at [email or web address]. We recommend that you complete the Advance Directive form found on the website and bring it with you the day of your surgery. It can be witnessed and scanned into your chart that day. Blessing Horvath PA-C documented in this encounter [facility] 02-10-2025 History of Present illness Narrative [facility] Rehabilitation No-Show Note Date: 02/11/2025 Patient Name: Ashlee Jalloh : 1985 Plan of Care/Recert ends [x] Pt no showed for scheduled appointment and was contacted regarding compliancy. We will monitor attendance for adherence to attendance policy and contact patient/physician as appropriate. Sergio Barkley AFTERNOON NANNY Date: 02/11/2025 Cosigned by Malaika Hernández, PT at 02/11/2025 6:57 AM EDT documented in this encounter [facility] 02-06-2025 History of Present illness Narrative [facility] No-Show Note Date: 02/06/2025 Patient Name: Ashlee Jalloh : 1985 02/16/25 Plan of Care/Recert ends [x] Pt no showed for scheduled appointment and was contacted regarding compliancy. [x] As a reminder, AFTERNOON NANNY called pt Call result went to voicemail, voicemail full, unable to leave message. Next visit is 02/10/25 at 4PM We will monitor attendance for adherence to attendance policy and contact patient/physician as appropriate. Diann Tao, AFTERNOON NANNY Date: 02/06/2025 Cosigned by Malaika Hernández, PT at 02/06/2025 4:19 PM EDT documented in this encounter [facility] 02-04-2025 History of Present illness Narrative [facility] Outpatient Physical Therapy Daily Note Patient: Ashlee Jalloh : 1985 CSN #: [id number] Referring Physician: Rishabh Huang MD Date: 02/04/2025 Diagnosis: M79.7 fibromyalfia, Z98.1 s/p lumbar fusion Treatment Diagnosis: fibromyalgia, LE weakness, decreased ROM PT Insurance Information: [facility] medicaid Total # of Visits Approved: 10 Per Physician Order Total # of Visits to Date: 3 No Show: 0 Canceled Appointment: 0 02/16/25 Plan of Care/Recert Due Pre-Treatment Pain: 02/17 Subjective: Pt reports 6/10 pain today with radiating intermittent pain. Pt states she was more tired after last visit. Pt states she will be having a R hip surgery on 02/23 for a repair. Exercises: Exercise 1: * aquatic therapy per tolerance at [facility]. AccessData land therapy: code [id number] (LTR, march supine, BKFO, TA activation) Exercise 2: Aq: semi deep: ambulation retro/lat/fwd x3 laps ea Exercise 3: Aq: semi deep: hip ext/abd, marches/HS curls, HR, squat x15 ea Exercise 4: AQ: ASU semi deep x10 ea Exercise 5: Aq: seated marching, hip abd, flutter x15 ea Exercise 6: Aq: Deep water hang x5 min, hip circles 1 min ea, DKTC x1 min, hip abd x1 min Assessment Assessment: Progressed ther ex within pt tolerance, no increase in pain this visit. Pt unable to stand upright this visit d/t pain. R side bend to 2 above knee, L side bend to 3 above knee. Continue as pt tolerates. Activity Tolerance Activity Tolerance: Patient tolerated treatment well Patient Education Patient Education: HEP Pt verbalized/demonstrated good understanding: [x] Yes [] No, pt required further clarification. Post Treatment Pain: 02/17 Plan Plan Frequency: 2 Plan weeks: 4 Goals (Total # of Visits to Date: 3) Short Term Goals Time Frame for Short Term Goals: 2 weeks Short Term Goal 1: Pt will be inititated with HEP.-met Short Term Goal 2: Pt will tolerate 30-40 minutes of aquatic ther ex to improve function with ADL's. -met Hollow Tile Partition Erector Goals Time Frame for Hollow Tile Partition Erector Goals : 6 weeks Alf Goal 1: Pt will independant and compliant with HEP to maintain functional gains made at therapy. Alf Goal 2: Pt will report 3/10 or less low back pain on average to facilitate completion of ADL's. Alf Goal 3: Pt to improve B LE strength to 4/5 grossly for ease with work tasks. Alf Goal 4: Pt to improve lumbar flexion/ext by 10* or more and sidebend by 10* for ease with bending/twisting. Alf Goal 5: Pt to improve Oswestry score from 48% disability to 30% or less or better to display progression in symptoms. Minutes Tracking: Time In: 1547 Time Out: 1630 Minutes: 43 Timed Code Treatment Minutes: 41 Minutes Diann Tao PTA Date: 02/04/2025 Aquatic Therapy (41 minutes): Aquatic treatment performed per flow grid for Decreased range of motion, Decompression, and Ease of movement. Cues provided for posture. Assistance by therapist provided for SUP. Patient has difficulty with posture, ROM. Cosigned by Malaika Hernández, PT at 02/04/2025 5:57 PM EDT documented in this encounter [facility] 02-03-2025 Instructions Noemi Francis AT - 02/03/2025 4:29 PM EDT Images from the original note were not included. ORTHOPAEDIC SURGERY - SPORTS MEDICINE MD Madyson Posadas PA-C Andrew Mindeck, ATC Amanda Wilson, [employer] [facility], [place], [facility], [address] [place] [address] SURGERY INFORMATION- HIP ARTHROSCOPY You have been scheduled or are considering scheduling OUTPATIENT surgery with Dr. Deniz Encarnacion. Ashlee Jalloh SURGERY DATE: 02-23-25 PROCEDURE: Right hip arthroscopy PRE OPERATIVE APPOINTMENTS: - Pre-operative testing ([facility]) within 30 days of your surgery - Once surgery is scheduled, [facility] will contact you to set up this appointment. Please call [phone] with any questions. - Hip brace fitting - 3-4 weeks prior to surgery contact [phone] or [phone] to schedule hip brace fitting with Pa/ Janie rep. - Crutches - Make sure you have crutches that fit you. You can get a set at [employer], [employer], [employer], [employer] etc. Prescription can be provided. If you show up without crutches, there is a chance your surgery gets cancelled. Video and written instruction on crutch use [email or web address]-qtvz-pujuqadi-correctly-[email or web address]-[email or web address]-[email or web address] [email or web address]/articles/43874-bbg-ja-zbz- crutches POST OPERATIVE APPOINTMENTS: -PHYSICAL THERAPY APPOINTMENT - you need to schedule this appointment for the day after surgery - [phone] to schedule - call office if having difficulty securing appointment - Post op follow up appointments surgery: 2 weeks in office with Madyson ROMAN; 6 weeks virtual (in person if preferred) with Madyson ROMAN; 12 weeks in person with Dr. Encarnacion. These appointments will be scheduled for you. SURGERY LOCATION: [facility] [place] - 2nd floor [address] [place] [address] MINIMIZE RISK SURGICAL SITE INFECTION Notify Dr. Encarnacion's office if any of the following apply: after hours [phone] and ask for pager [phone] - If you are prescribed an ANTIBIOTIC and will not be finished with it 2 weeks prior to surgery - If you develop symptoms such as a fever, cold, or flu, or have other changes to your health within ONE WEEK of scheduled surgery or the morning of surgery - Notice cuts, scrapes, blemishes, bug bites on operative extremity ARRIVAL TIME FOR SURGERY - You will be called the afternoon before (Sunday for Sunday) surgery with your arrival time (approx. 2 hours prior to the estimated procedure start time) BRING CRUTCHES or WALKER with you the DAY OF SURGERY - Please alert Dr. Encarnacion's office if you do not have crutches to ensure you are able to obtain a pair prior to surgery. For any financial/insurance questions, please contact our patient financial cost analyst: [phone] POST OP RECOVERY: (Subject to change day of surgery based on surgical findings) Hip Brace: to limit motion/ protect the hip - Minimum 2 weeks Wear when up and moving about and sleeping - remove to shower and use the bathroom Weight Bearing: Flat Foot heel-toe Partial (10-20 lb) Weight Bearing (enough pressure to feel balanced/ steady)- Minimum 2 weeks (foot in contact with ground heel-toe gait) Physical Therapy: Outpatient Physical Therapy start the day after surgery - recommend once weekly until about 6 weeks post op them twice weekly Passive Motion: as part of your recovery it is important to keep you hip joint lubricated and moving - there are 2 options to achieve this - Family/ Friend assisted passive motion - hip flexion and circumduction (rotation) as instructed by physical therapist - 150 reps each exercise 3 x a day - Continuous Passive Motion machine (CPM) - for hip flexion - OPTIONAL typically not covered by insurance, cost roughly $120 per week . Please contact the office at [phone] if interested Pain Control: combination of prescription medication (pain, NSAID, muscle relaxant) and ice Prescriptions will be electronically sent to your preferred pharmacy the day of surgery. ICE MAN cooling unit - issued day of surgery - does not need to be returned - recommend freezing 4-6 water bottles to use in place of ice in the unit Ice pad should not be in direct contact with your skin. Apply for up to 30 minutes every 2 hours. Use routinely for the 1st 48 hours then as needed for pain and swelling. 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 (No matter what you are told during your [facility]/ Pre anesthesia/ Pre op appointment) - Candy, mints, gum and tobacco products are NOT permitted BLOOD THINNING MEDICATIONS - Stop NSAIDS (Ibuprofen, Advil, Aleve, Motrin, meloxicam, indomethacin, etc.) 7 days before surgery, as directed by your surgeon. - Stop Aspirin 7 days before surgery, as directed by your surgeon. - Stop Vitamin E, ALL multi-vitamins, herbals and dietary supplements 7 days before surgery. - Alert your surgeon if you are taking any other blood thinning medications such as clopidogrel (Plavix), warafin (Coumadin), cilostazol (Pletal) - You may take Tylenol (Acetaminophen) or any of your pain medications that do not contain aspirin or NSAIDS as needed. TRANSPORTATION - YOU MUST HAVE A RESPONSIBLE VENDING SERVICE TECHNICIAN TAKE YOU HOME. A FINISH REMOVER OR PIGMENT PUSHER CANNOT BE MADE A RESPONSIBLE VENDING SERVICE TECHNICIAN. - We recommend that a responsible person stays with you overnight to take care of you. - You cannot stay in a hotel alone after outpatient surgery. You will not be permitted to have your surgery, if you do not have someone to take care of you. PRE-SURGICAL WASH WITH HIBICLENS INSTRUCTIONS Hibiclens (Chlorhexidine Gluconate solution 4.0% w/v) this special soap is used to reduce the germs on your skin to best prepare you for your upcoming surgery. You can find this at [employer]. Alternative: wash with antibacterial soap - Dial recommended. Please review the instructions below carefully PRIOR to your washing with Hibiclens : If you have any open skin areas like abrasions or a wound please check with the Preop testing department (PACC) or your surgeon's office before using this product. If you have an allergy to Chlorhexidine Gluconate do NOT use this product. Please call the Preop testing department or your surgeon's office for alternate instructions. DO NOT USE THIS SOAP ON YOUR FACE OR ON YOUR PRIVATE (GENITAL) AREA If you plan to wash your hair, do so using regular shampoo. Then rinse hair and body thoroughly to remove any shampoo residue. Thoroughly rinse your body with water from the neck down. Apply Hibiclens directly to your skin or on a clean wet washcloth and wash gently. If showering: move away from the shower stream when applying Hibiclens to avoid rinsing off too soon. Be sure to wash all skin areas (sparing your face and private area) including your back, abdomen, torso, and limbs. This soap will lather up although slightly less than a standard soap. Rinse thoroughly with warm water. Do not use a regular soap after applying, washing, and rinsing Hibiclens . Dry your skin with a towel. If lotions are required, use only those that are compatible with CHG (Chlorhexidine Gluconate). Put on a freshly laundered gown or clothes (clean clothes) after bathing. Use only as directed, see Hibiclens label for full product information and precautions. http://www.[facility].us/antisept ics/ehzdatp-pjqm-zuwtbukqu/hibic lens/#confirm Antibiotic: You will receive a dose of an antibiotic through your IV just before your surgery and for open cases a dose of an antibiotic prior to discharge. You will not be given a prescription for an antibiotic after surgery. Hair removal: hair around the surgical area will be shaved with clippers at the surgery center the morning of surgery Wound Care/ Incisions: will be covered with a sterile dressing at the time of surgery. Keep operative dressing clean, dry and intact for 3 days Showering: Once sterile dressing removed -incisions must be covered in the shower FMLA/ DISABILITY PAPERWORK: Please forward all paperwork to the office via fax [phone]. Paperwork is typically completed within a week of surgery. Include the name and fax number where you want the forms sent. Please make sure your name is on the paperwork. IMPORTANT REMINDERS - Leave ALL valuables and money at home or with family members. - Hearing aids, dentures and glasses may be worn the morning of surgery. - NO jewelry, body piercings, makeup, nail malawian, hairpins or contacts are to be worn the day of surgery. - DO NOT APPLY: Lotions or Deodorant (upper extremity surgery only), minimize the use of make up . - Wear loose-fitting clothing to accommodate bulky dressing or braces that may you may be wearing post op. Sweat pants, shorts and loose fitting tops that zip or button in the front will be easiest to put on after your surgery. - Max 2 people with you the day of surgery For questions, please call the office: [phone] documented in this encounter [facility] 02-03-2025 Note HNO ID: [id number] Author: NOEMI FRANCIS AT Service: ? 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 Encarnacion. Procedure: Right hip arthroscopy - Labral repair, Arthroscopic cam impingement femoroplasty, and Arthroscopic pincer impingement acetabuloplasty. Location: [facility] Date: 02-23-25 Last office visit: 01-07-25 Insurance: [employer] Home: [address] [place] [id number] BMI: There is no height or weight on file to calculate BMI. Work status/ occupation: Unknown BWC: No PACC: [facility] Brace fitting: Yes - will call Emmett medina for brace fitting appointment Crutches: Yes - Knows how to use: Yes Physical therapy: Outpatient PT starting POD 1 XR: 01-05-25 MRI: 11-14-24 - right hip labral tear Block: Yes CPM: No Pre op instructions sent via Linebacker. Medications: pregabalin (LYRICA) 50 mg capsule Take 1 capsule by mouth three times a day for 90 days. Mgtec-3-RIJ-EPA-Fish Oil (FISH OIL) 1,000 (120-180) mg cap Take 1 capsule by mouth once daily. esomeprazole (NEXIUM) 20 mg capsule Take 20 mg by mouth once daily. BASE, PCCA VANPEN crea Apply 1 application to affected area once daily. ibuprofen (MOTRIN) 400 mg tablet Take 1 tablet by mouth every 6 hours as needed. MOBIC 15 mg tablet Take 15 mg by mouth once daily. naproxen (NAPROSYN) 250 mg tablet Take 250 mg by mouth two times a day with meals. ubrogepant (UBRELVY) 100 mg tablet Take 100 mg by mouth once daily as needed. Allergies: ALLERGIES Allergen Reactions Nalbuphine Intolerance, Vomiting, Other: See Comments, Rash Pt vomited after being given Nubain in the past pt states when taking it becamse dizzy and nauseated was pregant had to be rushed back to surgery. Adhesive Tape (Palak* Rash Cloth tape, tears skin and welts Risk Assessment Hx DVT - No FHx DVT - No Bleeding Disorder - No Anticoagulation - No Hx of skin infection MRSA or Staph - No Current use of prescription pain medication - No If yes prescriber name: N/A Pain management issues YES - Dr. Huang - [facility] - will reach out to provider to help coordinate post op plan. Sleep Apnea - No Asthma - No Diabetes - No Insulin - No Thyroid disease - No Heart disease murmur, irregular heart beat - No Pace Maker - No Defibrillator - No Liver disease - No Kidney disease - No Prior anesthesia complications - No Noemi Francis, MEd, AT, ATC [facility] 01-28-2025 History of Present illness Narrative Reason for Appointment: Patient ID: Ashlee Jalloh is a 40 y.o. female who presents for Pelvic Pain Patient presents today for Acute Visit. MEDICATIONS Current Outpatient Medications Medication Instructions esomeprazole (NexIUM) [address] capsule 1 capsule, Every 24 hours phentermine (ADIPEX-P) 37.5 mg, Daily before breakfast pregabalin (LYRICA) 25 mg, 3 times daily ALLERGIES Allergies Allergen Reactions Silicone Hives Nalbuphine Dizziness, GI intolerance, Nausea And Vomiting, Nausea Only, Palpitations and Rash Pt vomited after being given Nubain in the past Wound Dressing Adhesive Rash Cloth tape, tears skin and welts PROBLEMS Active Ambulatory Problems Diagnosis Date Noted Abnormal cervical Papanicolaou smear 03/23/2023 Complex ovarian cyst 03/23/2023 Depression ([facility]/HCC) 03/23/2023 Kidney stone 03/23/2023 Low grade squamous intraepithelial lesion (LGSIL) on cervicovaginal cytologic smear 03/23/2023 Obesity 03/23/2023 Pruritus of vagina 03/23/2023 Examination for, follow-up 03/23/2023 Pelvic pain in female 06/19/2023 Postoperative visit 06/19/2023 Other constipation 02/14/2024 Well woman exam with routine gynecological exam 02/14/2024 Resolved Ambulatory Problems Diagnosis Date Noted No Resolved Ambulatory Problems Past Medical History: Diagnosis Date Encounter for Papanicolaou smear of vagina following prior abnormal smear Low grade squamous intraepithelial lesion (LGSIL) on cervical Pap smear Obesity (BMI 30.0-34.9) Vaginal itching Well woman exam HISTORY PAST MEDICAL HISTORY SOCIAL HISTORY Past Medical History: Diagnosis Date Complex ovarian cyst Depression (CMS/HCC) Encounter for Papanicolaou smear of vagina following prior abnormal smear Kidney stone Low grade squamous intraepithelial lesion (LGSIL) on cervical Pap smear Obesity (BMI 30.0-34.9) Vaginal itching Well woman exam Social History Tobacco Use Smoking status: Never Smokeless tobacco: Never Substance Use Topics Alcohol use: Never Drug use: Never FAMILY HISTORY Family History Problem Relation Name Age of Onset Breast cancer Mother Michelle Arthritis Father Hyperlipidemia Maternal Grandmother ?? Hypertension Maternal Grandmother ?? Hyperlipidemia Maternal Grandfather ?? Hypertension Maternal Grandfather ?? Hyperlipidemia Paternal Grandmother ?? Hypertension Paternal Grandmother ?? Arthritis Paternal Grandfather ?? Hypertension Paternal Grandfather ?? Hyperlipidemia Paternal Grandfather ?? SURGICAL HISTORY Past Surgical History: Procedure Laterality Date BACK SURGERY x2 SECTION, LOW TRANSVERSE x 2- 01/27/2009 , 05/24/2017 HYSTERECTOMY 03/25/2021 Abdominal Hysterectomy LAPAROSCOPY DIAGNOSTIC / BIOPSY / ASPIRATION / LYSIS 06/08/2023 MR ANGIOGRAM HEAD WO IV CONTRAST 07/29/2020 MR ANGIOGRAM HEAD WO IV CONTRAST 07/29/2020 TUBAL LIGATION REVIEW OF SYSTEMS Review of Systems: Review of Systems Constitutional: Negative. HENT: Negative. Eyes: Negative. Respiratory: Negative. Cardiovascular: Negative. Gastrointestinal: Negative. Genitourinary: Negative. Musculoskeletal: Negative. Skin: Negative. Neurological: Negative. All other systems reviewed and are negative. Hematological: Negative. Endocrine: Negative. Allergic/Immunologic: Negative. OBJECTIVE Objective: Physical Exam Constitutional: Appearance: Normal appearance. She is well-developed. Genitourinary: Vulva normal. Vaginal cuff intact. Cervix is absent. Uterus is absent. Cardiovascular: Rate and Rhythm: Normal rate and regular rhythm. Abdominal: General: Bowel sounds are normal. There is no distension. Palpations: Abdomen is soft. Tenderness: There is no abdominal tenderness. There is no guarding or rebound. Musculoskeletal: General: No swelling. Normal range of motion. Right lower leg: No edema. Left lower leg: No edema. Neurological: Mental Status: She is alert and oriented to person, place, and time. Skin: General: Skin is warm and dry. Psychiatric: Mood and Affect: Mood normal. Behavior: Behavior normal. Vitals and nursing note reviewed. Exam conducted with a lead business analyst present. Vitals: Estimated body mass index is 32.61 kg/m as calculated from the following: Height as of 02/14/24: 5' 4 . Weight as of this encounter: 190 lb. BP: 120/70 Patient's last menstrual period was 02/08/2021. ASSESSMENT & PLAN ICD-10-CM 1. Pelvic pain in female R10.2 SURESWAB(R) ADVANCED VAGINITIS PLUS, TMA CHLAMYDIA TRACHOMATIS (GENITO/STI) Neisseria gonorrhea DNA probe, direct POCT urinalysis dipstick manually resulted CANCELED: POCT , urine manually resulted Pt presents with pelvic pain. Pt was referred to Darci Sarmiento and uses cream on thighs. Pt sometimes has vaginal canal pain at times. Pt to start premarin cream in vagina 1/2 applicator every night for two weeks, and then twice a week thereafter. Pt to return as needed. Documented by Mely Narvaez LPN on behalf of: Tommie Mccann DO documented in this encounter [facility] 01-26-2025 Telephone encounter Note Spoke with patient on the phone. Images were reviewed by Dr. Encarnacion. Discussed that she would be a candidate for a hip scope. Labral tear, KRISTI. Patient has gone through extensive conservative treatment. She is leaning towards surgery, however she is also currently being treated for low back pain and they have a few things planned in the near future for that. She will follow up with low back provider and then reach out to us when she is ready to proceed forward surgically. All questions were answered. Tessie Leggett, AT, ATC [facility] Work Phone: 01-26-2025 Miscellaneous Notes Spoke with patient on the phone. Images were reviewed by Dr. Encarnacion. Discussed that she would be a candidate for a hip scope. Labral tear, KRISTI. Patient has gone through extensive conservative treatment. She is leaning towards surgery, however she is also currently being treated for low back pain and they have a few things planned in the near future for that. She will follow up with low back provider and then reach out to us when she is ready to proceed forward surgically. All questions were answered. Tessie Leggett, AT, ATC Attempted to contact patient via phone. No answer. Left her a detailed voicemail. Office number provided for her to call back when she is able. Tessie Leggett, AT, ATC Images in epic PLAN: 1. Medication: Continue current medications. 2. Test(s)/Imaging/Referral(s): None. 3. Intervention: we have discussed with her the findings on imaging and likely diagnosis.Se is aware that she needs to get her MRI images to the office for review and then we can decide if she would benefit from labral repair vs conservative management until eventual arthroplasty. 4. Follow-up: PRN. documented in this encounter [facility] 01-26-2025 Telephone encounter Note Attempted to contact patient via phone. No answer. Left her a detailed voicemail. Office number provided for her to call back when she is able. Noemi Francis, MEd, AT, ATC [facility] 01-21-2025 History of Present illness Narrative Physical Therapy [facility] Outpatient Physical Therapy Daily Note Patient: Ashlee Jalloh : 1985 CSN #: [id number] Referring Physician: Rishabh Huang MD Date: 01/21/2025 Treatment Diagnosis: fibromyalgia, LE weakness, decreased ROM PT Insurance Information: [facility] medicaid Total # of Visits Approved: 10 Per Physician Order Total # of Visits to Date: 2 No Show: 0 Canceled Appointment: 0 02/16/25 Plan of Care/Recert Due Pre-Treatment Pain: 8/10 Subjective: Pt rates pain 8/10 in Lumbar region this date, denied current LE pain. Pt reports she had some R LE pain down to foot randomly throughout the day. Pt reports she uses TENs unit most of the day at work to help reduce sxs. Pt notes she has increased pain at the end of each shift. Pt states she saw lumbar surgeon yesterday who refered her to cervical surgeon for possible spinal cord stimulator, has not heard from vehicle body maker about when that appointment will be. Exercises: Exercise 1: * aquatic therapy per tolerance at [facility]. AccessData land therapy: code [id number] (LTR, november supine, BKFO, TA activation) Exercise 2: Aq: semi deep: ambulation retro/lat/fwd x3 laps ea Exercise 3: Aq: semi deep: hip ext/abd, marches/HS curls, HR x15 ea Assessment Assessment: Pt arrived late to therapy session this date d/t work, treatment modified to accomidate. Initiated aquatic therapy this date for increasing strength in core/LE in decompressed setting to reduce increased pain. Pt unable to use upright posture with standing exer d/t increased pain in lower lumbar (near incision) cues given throughout standing exer for core activation to support lumbar spine. Activity Tolerance Activity Tolerance: Patient tolerated treatment well, Patient limited by pain Patient Education Patient Education: Educated pt on safey and expectations with aquatic therapy. Pt verbalized/demonstrated good understanding: [x] Yes [] No, pt required further clarification. Post Treatment Pain: 1/10 Pt states I feel numb Plan Plan Frequency: 2 Plan weeks: 4 Goals (Total # of Visits to Date: 2) Short Term Goals Time Frame for Short Term Goals: 2 weeks Short Term Goal 1: Pt will be inititated with HEP. Short Term Goal 2: Pt will tolerate 30-40 minutes of aquatic ther ex to improve function with ADL's. -progressing Hollow Tile Partition Erector Goals Time Frame for Hollow Tile Partition Erector Goals : 6 weeks Hollow Tile Partition Erector Goal 1: Pt will independant and compliant with HEP to maintain functional gains made at therapy. Alf Goal 2: Pt will report 3/10 or less low back pain on average to facilitate completion of ADL's. Hollow Tile Partition Erector Goal 3: Pt to improve B LE strength to 4/5 grossly for ease with work tasks. Alf Goal 4: Pt to improve lumbar flexion/ext by 10* or more and sidebend by 10* for ease with bending/twisting. Alf Goal 5: Pt to improve Oswestry score from 48% disability to 30% or less or better to display progression in symptoms. Aquatic Therapy (29 minutes): Aquatic treatment performed per flow grid for 65-100% diminished weight loading exercises. Cues provided for upright posture and core activation. Assistance by therapist provided for supervision, verbal, and visual cues. Patient has difficulty with core activation and standing tolerance. Minutes Tracking: Time In: 1530 Time Out: 1600 Minutes: 30 Timed Code Treatment Minutes: 29 Minutes Charlene Todd PTA Date: 01/21/2025 Cosigned by Malaika Hernández, PT at 01/21/2025 5:27 PM EDT documented in this encounter [facility] 01-19-2025 History of Present illness Narrative [facility] Outpatient Physical Therapy Evaluation Date: 01/19/2025 Patient: Ashlee Jalloh : 1985 CSN #: [id number] Referring Physician: Rishabh Huang MD Medical Diagnosis: M79.7 fibromyalfia, Z98.1 s/p lumbar fusion Treatment Diagnosis: fibromyalgia, LE weakness, decreased ROM PT Insurance Information: [place] Total # of Visits Approved: 10 Total # of Visits to Date: 1 No Show: 0 Canceled Appointment: 0 [x] This administrative underwriter acknowledges review of patient history form Subjective Subjective: Pt with low back pain and general body pain consistantly throughout the day, wearing tens unit all day at work. Pain at 3/10 when waking up and 6/10 pain by the end of the day. Additional Pertinent Hx: panic attacks, arthritis, hearing problems, anxiety, stomach problems, depression Objective Strength Strength LLE L Hip Flexion: 4/5 L Hip ABduction: 4-/5 L Hip ADduction: 4-/5 L Knee Flexion: 4/5 L Knee Extension: 4/5 Right Strength Strength RLE R Hip Flexion: 4-/5 R Hip ABduction: 4-/5 R Hip ADduction: 4-/5 R Knee Flexion: 4/5 R Knee Extension: 4/5 Lumbar Assessment AROM Lumbar Spine Flexion: 25 Extension: 17 Lateral Flexion Right: 24 Lateral Flexion Left: 26 Exercises: Exercise 1: * aquatic therapy per tolerance Functional Outcome Measures Pain Intensity: D. The pain is fairly severe at the moment Personal Care (Washing,Dressing, etc.): B. I can look after myself normally, but it causes me extra pain Walking: C. Pain prevents me from walking more than 1/4 mile Sitting: C. Pain prevents me from sitting more than 1 hour Standing: B. I can stand as long as I want but it gives me extra pain Sleeping: C. Because of pain I have less than 6 hours sleep Sex Life (if applicable) : E. My sex life is nearly absent because of pain Social Life : D. Pain has restricted my social life and I do not go out as often Traveling : D. Pain restricts me to journeys of less than 1 hour Owsestry Disability Total Scores: 24 Assessment Assessment: Pt is a 40 y.o female who presents with chronic low and mid back pain as well as R hip pain. MRI shows subtle labral tear in R hip. Pt with history of L4-5 fusion and B SI joint fusion. Lumbar ROM limited severly by pain and B LE strength is weak d/t pain worse on R hip compared to L. Pt would benefit from skilled therapy in order to address these deficits and return to PLOF. Therapy Prognosis: Fair Decision Making: Medium Complexity Patient Education Patient Education: Pt educatated on PT POC, HEP Pt verbalized/demonstrated good understanding: [X] Yes [] No, pt required further clarification. Goals Short Term Goals Time Frame for Short Term Goals: 2 weeks Short Term Goal 1: Pt will be inititated with HEP. Short Term Goal 2: Pt will tolerate 30-40 minutes of aquatic ther ex to improve function with ADL's. 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 Hollow Tile Partition Erector Goal 2: Pt will report 3/10 or less low back pain on average to facilitate completion of ADL's. Alf Goal 3: Pt to improve B LE strength to 4/5 grossly for ease with work tasks. Hollow Tile Partition Erector Goal 4: Pt to improve lumbar flexion/ext by 10* or more and sidebend by 10* for ease with bending/twisting. Alf Goal 5: Pt to improve Oswestry score from 48% disability to 30% or less or better to display progression in symptoms. Minutes Tracking: Time In: 1530 Time Out: 1615 Minutes: 45 Timed Code Treatment Minutes: 43 Minutes MALAIKA HERNÁNDEZ PT, DPT 01/19/2025 [facility] Outpatient Physical Therapy Date: 01/19/2025 Patient: Ashlee Jalloh : 1985 CSN #: [id number] Referring Physician: Rishabh Huang MD [x] Plan of Care [] Updated Plan of Care Dates of Service to Include: 01/19/2025 to 02/16/25 Diagnosis: M79.7 fibromyalfia, Z98.1 s/p lumbar fusion Rehab (Treatment) Diagnosis: fibromyalgia, LE weakness, decreased ROM Attendance Total # of Visits to Date: 1 No Show: 0 Canceled Appointment: 0 Assessment Assessment: Pt is a 40 y.o female who presents with chronic low and mid back pain as well as R hip pain. MRI shows subtle labral tear in R hip. Pt with history of L4-5 fusion and B SI joint fusion. Lumbar ROM limited severly by pain and B LE strength is weak d/t pain worse on R hip compared to L. Pt would benefit from skilled therapy in order to address these deficits and return to PLOF. Goals Short Term Goals Time Frame for Short Term Goals: 2 weeks Short Term Goal 1: Pt will be inititated with HEP. Short Term Goal 2: Pt will tolerate 30-40 minutes of aquatic ther ex to improve function with ADL's. 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 Hollow Tile Partition Erector Goal 2: Pt will report 3/10 or less low back pain on average to facilitate completion of ADL's. Alf Goal 3: Pt to improve B LE strength to 4/5 grossly for ease with work tasks. Alf Goal 4: Pt to improve lumbar flexion/ext by 10* or more and sidebend by 10* for ease with bending/twisting. Hollow Tile Partition Erector Goal 5: Pt to improve Oswestry score from 48% disability to 30% or less or better to display progression in symptoms. Prognosis Therapy Prognosis: Fair Treatment Plan Plan Frequency: 2 Plan weeks: 4 [x] HP/CP [] Electrical Stim [x] Therapeutic Exercise [] Gait Training [x] Aquatics [] Ultrasound [x] Patient Education/HEP [x] Manual Therapy [] Traction [] Neuro-farshad [x] Soft Tissue Mobs [] Therapeutic Activity [] Iontophoresis [] Orthotic casting/fitting [] Dry Needling [] Blood Flow Restriction [] Vasopneumatic Compression [] Vasopneumatic Compression/Cold [] Vestibular Rehabilitation Electronically signed by: MALAIKA HERNÁNDEZ PT, DPT Date: 01/19/2025 Date: 01/19/2025 Physician Signature documented in this encounter [facility] 01-16-2025 Telephone encounter Note Images in epic PLAN: 1. Medication: Continue current medications. 2. Test(s)/Imaging/Referral(s): None. 3. Intervention: we have discussed with her the findings on imaging and likely diagnosis.Se is aware that she needs to get her MRI images to the office for review and then we can decide if she would benefit from labral repair vs conservative management until eventual arthroplasty. 4. Follow-up: PRN. [facility] 01-07-2025 Note HNO ID: [id number] Author: DENIZ ENCARNACION MD Service: ? Author Type: Physician Type: Progress Notes Filed: 01/07/2025 12:04 Note Text: I have reviewed the history and physical obtained by my resident or fellow. HPI explored in detail with the patient. Pt was seen by me and swanson findings were confirmed. I agree with the findings as documented. I personally participated the patient's assessment and treatment recommendations. Deniz Encarnacion MD [facility] 01-07-2025 History of Present illness Narrative I have reviewed the history and physical obtained by my resident or fellow. HPI explored in detail with the patient. Pt was seen by me and swanson findings were confirmed. I agree with the findings as documented. I personally participated the patient's assessment and treatment recommendations. Deniz Encarnacion MD Images from the original note were not included. DEPARTMENT OF ORTHOPAEDICS Consultation as a request of self. Chief Complaint: Right hip pain HISTORY OF PRESENT ILLNESS: This is a pleasant 39 year old female, who presents today with a chief complaint of right hip pain. Injury/ Trauma: Denies PAIN EVALUATION 01/06/2025194801/07/2025 1045 Pain Level: 7 9 Pain Location: -- Hip-Right Description: Aching;Burning;Sharp;Shooting;St abbing;Stabbing/Not Incision;Stiffness;Tenderness;Ti ghtness;Tingling Sharp;Shooting;Radiating Duration Amount of Time: -- 9 Duration Units: Years Years Frequency: Continuous Continuous Intervention/Comfort measure: Medication;Pillow support -- Pain location: anterior, medial, and lateral Duration of pain/ symptoms: 2 years Frequency: constant Intensity: moderate Quality: sharp and shooting She Reports nocturnal pain. She denies numbness, tingling, or electric shocks. She reports popping and catching and sense of instability. Aggravating factors: prolonged sitting Alleviating factors: Nothing makes my pain better Prior Treatments: physical therapy and steroid injections Hip joint injection 3 or 4, can't remember exactly. 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 No past surgical history on file. Current Outpatient Medications Medication Sig Dispense Refill pregabalin (LYRICA) 50 mg capsule Take 1 capsule by mouth three times a day for 90 days. 90 capsule 2 Jnjpv-9-YXU-EPA-Fish Oil (FISH OIL) 1,000 (120-180) mg cap Take 1 capsule by mouth once daily. esomeprazole (NEXIUM) 20 mg capsule Take 20 mg by mouth once daily. BASE, PCCA VANPEN crea Apply 1 application to affected area once daily. naproxen (NAPROSYN) 250 mg tablet Take 250 mg by mouth two times a day with meals. ubrogepant (UBRELVY) 100 mg tablet Take 100 mg by mouth once daily as needed. ibuprofen (MOTRIN) 400 mg tablet Take 1 tablet by mouth every 6 hours as needed. MOBIC 15 mg tablet Take 15 mg by mouth once daily. No current facility-administered medications for this visit. ALLERGIES Allergen Reactions Nalbuphine Intolerance, Vomiting, Other: See Comments, Rash Pt vomited after being given Nubain in the past pt states when taking it becamse dizzy and nauseated was pregant had to be rushed back to surgery. Adhesive Tape (Palak* Rash Cloth tape, tears skin and welts No family history on file. Social History Tobacco Use Smoking status: Never Smokeless tobacco: Never Substance Use Topics Alcohol use: Not Currently Drug use: Never REVIEW OF SYSTEMS: Per HPI RADIOGRAPHS: right AP pelvis, Salazar lateral and false view dated within 30 days revealed no acute processes, fractures, or dislocations. There is a small cam lesion. Alpha angle 78. Acetabulum is normal. Osseous and soft tissue structures within normal limits. Tonnis grade 1. X-Rays Reviewed and discussed. OTHER STUDIES: MRIs NOT PRESENTnot present at visit, per report: anterior subtle intrasubstance tear in far anterior superior right, trave fluid troch bursa PHYSICAL EXAM: There were no vitals taken for this visit. General: Appears stated age, well built, in no apparent distress. Psychiatric: Mood and affect appropriate. Alert and oriented x 3 without evidence of abnormal respiratory effort. Musculoskeletal Exam: Gait antalgic, Posture: erect and normal. Exam: Right Left Single Leg Trendelenburg Negative Negative Hip flexion 100 100 IR 30 30 ER 50 50 Anterior impingement positive positive Dynamic labral stress positive positive DOROTHY positive positive Posterior Impingement negative positive SRIDHAR negative negative Strength Right Left Supine HF 5/5 5/5 Upright HF 5/5 5/5 Adduction 5/5 5/5 Abduction 5/5 5/5 Tenderness with Palpation: Right Left Greater Troch Negative Negative Gluteus Medius Negative Negative Piriformis Negative Negative PROCEDURE: Not applicable IMPRESSION: 1. right hip KRISTI. PLAN: 1. Medication: Continue current medications. 2. Test(s)/Imaging/Referral(s): None. 3. Intervention: we have discussed with her the findings on imaging and likely diagnosis.Se is aware that she needs to get her MRI images to the office for review and then we can decide if she would benefit from labral repair vs conservative management until eventual arthroplasty. 4. Follow-up: PRNGómez Zarate MD Sports Medicine/Orthopaedic Surgery documented in this encounter [facility] 01-07-2025 Note HNO ID: [id number] Author: VALERIA ZARATE MD Service: ? Author Type: Resident Type: Progress Notes Filed: 01/07/2025 12:04 Note Text: DEPARTMENT OF ORTHOPAEDICS Consultation as a request of self. Chief Complaint: Right hip pain HISTORY OF PRESENT ILLNESS: This is a pleasant 39 year old female, who presents today with a chief complaint of right hip pain. Injury/ Trauma: Denies PAIN EVALUATION 01/06/2025 1949 01/07/2025 1045 Pain Level: 7 9 Pain Location: -- Hip-Right Description: Aching;Burning;Sharp;Shooting;St abbing;Stabbing/Not Incision;Stiffness;Tenderness;Ti ghtness;Tingling Sharp;Shooting;Radiating Duration Amount of Time: -- 9 Duration Units: Years Years Frequency: Continuous Continuous Intervention/Comfort measure: Medication;Pillow support -- Pain location: anterior, medial, and lateral Duration of pain/ symptoms: 2 years Frequency: constant Intensity: moderate Quality: sharp and shooting She Reports nocturnal pain. She denies numbness, tingling, or electric shocks. She reports popping and catching and sense of instability. Aggravating factors: prolonged sitting Alleviating factors: Nothing makes my pain better Prior Treatments: physical therapy and steroid injections Hip joint injection 3 or 4, can't remember exactly. 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 No past surgical history on file. Current Outpatient Medications Medication Sig Dispense Refill pregabalin (LYRICA) 50 mg capsule Take 1 capsule by mouth three times a day for 90 days. 90 capsule 2 Ettyx-6-SZX-EPA-Fish Oil (FISH OIL) 1,000 (120-180) mg cap Take 1 capsule by mouth once daily. esomeprazole (NEXIUM) 20 mg capsule Take 20 mg by mouth once daily. BASE, PCCA VANPEN crea Apply 1 application to affected area once daily. naproxen (NAPROSYN) 250 mg tablet Take 250 mg by mouth two times a day with meals. ubrogepant (UBRELVY) 100 mg tablet Take 100 mg by mouth once daily as needed. ibuprofen (MOTRIN) 400 mg tablet Take 1 tablet by mouth every 6 hours as needed. MOBIC 15 mg tablet Take 15 mg by mouth once daily. No current facility-administered medications for this visit. ALLERGIES Allergen Reactions Nalbuphine Intolerance, Vomiting, Other: See Comments, Rash Pt vomited after being given Nubain in the past pt states when taking it becamse dizzy and nauseated was pregant had to be rushed back to surgery. Adhesive Tape (Palak* Rash Cloth tape, tears skin and welts No family history on file. Social History Tobacco Use Smoking status: Never Smokeless tobacco: Never Substance Use Topics Alcohol use: Not Currently Drug use: Never REVIEW OF SYSTEMS: Per HPI RADIOGRAPHS: right AP pelvis, Salazar lateral and false view dated within 30 days revealed no acute processes, fractures, or dislocations. There is a small cam lesion. Alpha angle 78. Acetabulum is normal. Osseous and soft tissue structures within normal limits. Tonnis grade 1. X-Rays Reviewed and discussed. OTHER STUDIES: MRIs NOT PRESENTnot present at visit, per report: anterior subtle intrasubstance tear in far anterior superior right, trave fluid troch bursa PHYSICAL EXAM: There were no vitals taken for this visit. General: Appears stated age, well built, in no apparent distress. Psychiatric: Mood and affect appropriate. Alert and oriented x 3 without evidence of abnormal respiratory effort. Musculoskeletal Exam: Gait antalgic, Posture: erect and normal. Exam: Right Left Single Leg Trendelenburg Negative Negative Hip flexion 100 100 IR 30 30 ER 50 50 Anterior impingement positive positive Dynamic labral stress positive positive DOROTHY positive positive Posterior Impingement negative positive SRIDHAR negative negative Strength Right Left Supine HF 5/5 5/5 Upright HF 5/5 5/5 Adduction 5/5 5/5 Abduction 5/5 5/5 Tenderness with Palpation: Right Left Greater Troch Negative Negative Gluteus Medius Negative Negative Piriformis Negative Negative PROCEDURE: Not applicable IMPRESSION: 1. right hip KRISTI. PLAN: 1. Medication: Continue current medications. 2. Test(s)/Imaging/Referral(s): None. 3. Intervention: we have discussed with her the findings on imaging and likely diagnosis.Se is aware that she needs to get her MRI images to the office for review and then we can decide if she would benefit from labral repair vs conservative management until eventual arthroplasty. 4. Follow-up: PRN. Valeria Zarate MD Sports Medicine/Orthopaedic Surgery [facility] 01-05-2025 Instructions Uriel Guzmán MD - 01/05/2025 3:21 PM EDT Ha Encarnacion documented in this encounter [facility] 01-05-2025 Note HNO ID: [id number] Author: URIEL GUZMÁN MD Service: ? Author Type: Physician Type: Progress Notes Filed: 01/05/2025 15:26 Note Text: CONSULT ORTHOPAEDIC: HIP PRIMARY CARE PHYSICIAN: No primary care provider on file. REFERRING PROVIDER: Johnathan Sharp [facility] [id number] ASSESSMENT AND PLAN Impression: Right hip and groin pain. Hx of Labral tear on MRI. Xrays benign 39F- Fibromyalgia Hx of lumbar fusion x 3 Hx of R hip CSI x 4 Painful groin pain R side Also with RLE lumbar radiculopathy No indication for R FELIZ at this time Will refer to sports for possible labral intervention. Diagnoses: (M25.551) Pain in right hip (primary encounter diagnosis) (M24.159) Labral tear of hip, degenerative The patient has been ordered: Office Visit on 01/05/25 XR HIP GENERAL 3V PELV/AP/LAT RIGHT CONSULT TO ORTHOPAEDICS Total Joint Arthroplasty: Risk Calculator Ashlee Jalloh has a chance of NOT returning home at discharge for a Primary total Hip replacement. Ashlee's estimated Length of Stay is . Ashlee's 30 day chance of readmission is . These calculations are based on the following factors: - 39 years of age - sex is not male - NarxCare score of 40 - 0 hospitalizations in the last 12 months - no history of heart disease - no history of diabetes - no history of COPD - no history of anemia - preoperative ambulation: independent community distances - 5 step(s) to enter home - bed location is NOT on the first floor - bath location is NOT on the first floor - caregiver is consistent - home is more than 150 miles away - PROMIS-10 Mental Health T score 20-40 - Marital status: unknown Risk Factors for Total Knee Arthroplasty (TKA) Major Risk Factors Obesity Unknown Risk High: BMI > 40 Moderate: BMI 30-40 Normal: BMI < 30 Diabetes normal High: A1C > 8 Moderate: A1C 7-8 Normal: A1C < 7 Hx of DVT / PE normal High: dx of DVT / PE Normal: no dx of DVT / PE Smoking normal High: Current smoker Normal: Non smoker Narcotics Use normal High:NarxCare >=300 Moderate: 100-299 Normal: 0-99 Depression High Risk High: PHQ-9 >14 Moderate: PHQ-9 5-14 Normal: PHQ-9 < 5 Area Deprivation Index (JENSEN) High Risk High: JENSEN Score > 75 Moderate: JENSEN 50-75 Normal: JENSEN < 50 Obesity: height and/or weight are out of date (There is no height and/or weight reading in the past 365 days, so the below BMI readings may be inaccurate) BMI Readings from Last 3 Encounters: No data found for BMI Area Deprivation Index (JENSEN) 11/17/2024 JENSEN Score National Score 78 Patient Health Questionnaire (PHQ-9) 01/05/2025 PHQ-9 PHQ-2 Score 6 PHQ-9 Score 22 (0-4) minimal depression, (5-9) mild depression, (10-14) moderate depression, (15-19) moderately severe depression, (20-27) severe depression Bone Density Risk Screen Ashlee Jalloh is low risk for bone loss based on her age and having no previous diagnoses of osteopenia, osteoporosis, Paget's disease of bone, or cancer of bone. Other risk factors are listed below to determine if they pose a significant risk for bone loss, and if so, recommend ordering a bone densitometry and, upon receiving a result, as needed, order a consult to a bone health specialist (Rheumatology, Endocrinology, or Women's Health) for bone assessment. Risk Factors: Use of Proton Pump Inhibitors Additional Risk Factors Malnutrition: No Malnutrition Screening Tool (MST) score on file- please complete the MST screening tool (click here to open) and refresh the note. There is no problem list on file for this patient. SUBJECTIVE CHIEF COMPLAINT: right hip pain -surgery consult HPI: Ashlee Jalloh is a 39 year old patient with the presenting complaint of New and Pain of the Right Hip. Ashlee Jalloh has had progressive problems with the hip(s) constantly over the past 1 year(s) interfering with activities which include exercise, rising from a sitting position, and getting in and out of a car. The problem began limiting activities 7-12 months ago. Ashlee reports a current pain level of 8 (Back-Lower). She describes the pain as Aching, Burning, Sharp, Shooting, Stabbing, Stiffness, Tightness. The pain is Continuous . FALL RISK: Ashlee is not currently at risk for falls. PROMIS Physical Function Score Descriptive Summary for PROMIS Physical Function T-score = 35 (Percentile 7) Much difficulty - Carry a laundry basket up a flight of stairs. Some difficulty - Walk at a normal speed. Unable - Walk more than a mile (1.6 km). 01/05/2025 PROMIS CAT Physical Function T-Score 35 (moderate dysfunction) Percentile 7 FUNCTIONAL STATUS: independent REVIEW OF SYSTEMS: PAIN ASSESSMENT: See HPI. MUSCULOSKELETAL: See HPI. No data to display No past medical history on file. No past surgical history on file. No family history on file. Social History Tobacco Use Smoking status: Never Smokeless tobacco: Never Substance Use Topi (more content not included)... [facility] 01-05-2025 History of Present illness Narrative Images from the original note were not included. CONSULT ORTHOPAEDIC: HIP PRIMARY CARE PHYSICIAN: No primary care provider on file. REFERRING PROVIDER: Johnathan Haas [address] [facility] [id number] ASSESSMENT & PLAN Impression: Right hip and groin pain. Hx of Labral tear on MRI. Xrays benign 39F- Fibromyalgia Hx of lumbar fusion x 3 Hx of R hip CSI x 4 Painful groin pain R side Also with RLE lumbar radiculopathy No indication for R FELIZ at this time Will refer to sports for possible labral intervention. Diagnoses: (M25.551) Pain in right hip (primary encounter diagnosis) (M24.159) Labral tear of hip, degenerative The patient has been ordered: Office Visit on 01/05/25 XR HIP GENERAL 3V PELV/AP/LAT RIGHT CONSULT TO ORTHOPAEDICS Total Joint Arthroplasty: Risk Calculator Ashlee Jalloh has a chance of NOT returning home at discharge for a Primary total Hip replacement. Ashlee's estimated Length of Stay is . Ashlee's 30 day chance of readmission is . These calculations are based on the following factors: - 39 years of age - sex is not male - NarxCare score of 40 - 0 hospitalizations in the last 12 months - no history of heart disease - no history of diabetes - no history of COPD - no history of anemia - preoperative ambulation: independent community distances - 5 step(s) to enter home - bed location is NOT on the first floor - bath location is NOT on the first floor - caregiver is consistent - home is more than 150 miles away - PROMIS-10 Mental Health T score 20-40 - Marital status: unknown Risk Factors for Total Knee Arthroplasty (TKA) Major Risk Factors Obesity Unknown Risk High: BMI > 40 Moderate: BMI 30-40 Normal: BMI < 30 Diabetes normal High: A1C > 8 Moderate: A1C 7-8 Normal: A1C < 7 Hx of DVT / PE normal High: dx of DVT / PE Normal: no dx of DVT / PE Smoking normal High: Current smoker Normal: Non smoker Narcotics Use normal High:NarxCare >=300 Moderate: 100-299 Normal: 0-99 Depression High Risk High: PHQ-9 >14 Moderate: PHQ-9 5-14 Normal: PHQ-9 < 5 Area Deprivation Index (JENSEN) High Risk High: JENSEN Score > 75 Moderate: JENSEN 50-75 Normal: JENSEN < 50 Obesity: height and/or weight are out of date (There is no height and/or weight reading in the past 365 days, so the below BMI readings may be inaccurate) BMI Readings from Last 3 Encounters: No data found for BMI Area Deprivation Index (JENSEN) 11/17/2024 JENSEN Score National Score 78 Patient Health Questionnaire (PHQ-9) 01/05/2025 PHQ-9 PHQ-2 Score 6 PHQ-9 Score 22 (0-4) minimal depression, (5-9) mild depression, (10-14) moderate depression, (15-19) moderately severe depression, (20-27) severe depression Bone Density Risk Screen Ashlee Jalloh is low risk for bone loss based on her age and having no previous diagnoses of osteopenia, osteoporosis, Paget's disease of bone, or cancer of bone. Other risk factors are listed below to determine if they pose a significant risk for bone loss, and if so, recommend ordering a bone densitometry and, upon receiving a result, as needed, order a consult to a bone health specialist (Rheumatology, Endocrinology, or Women's Health) for bone assessment. Risk Factors: Use of Proton Pump Inhibitors Additional Risk Factors Malnutrition: No Malnutrition Screening Tool (MST) score on file- please complete the MST screening tool (click here to open) and refresh the note. There is no problem list on file for this patient. SUBJECTIVE CHIEF COMPLAINT: right hip pain -surgery consult HPI: Ashlee Jalloh is a 39 year old patient with the presenting complaint of New and Pain of the Right Hip. Ashlee Jalloh has had progressive problems with the hip(s) constantly over the past 1 year(s) interfering with activities which include exercise, rising from a sitting position, and getting in and out of a car. The problem began limiting activities 7-12 months ago. Ashlee reports a current pain level of 8 (Back-Lower). She describes the pain as Aching, Burning, Sharp, Shooting, Stabbing, Stiffness, Tightness. The pain is Continuous . FALL RISK: Ashlee is not currently at risk for falls. PROMIS Physical Function Score Descriptive Summary for PROMIS Physical Function T-score = 35 (Percentile 7) Much difficulty - Carry a laundry basket up a flight of stairs. Some difficulty - Walk at a normal speed. Unable - Walk more than a mile (1.6 km). 01/05/2025 PROMIS CAT Physical Function T-Score 35 (moderate dysfunction) Percentile 7 FUNCTIONAL STATUS: independent REVIEW OF SYSTEMS: PAIN ASSESSMENT: See HPI. MUSCULOSKELETAL: See HPI. No data to display No past medical history on file. No past surgical history on file. No family history on file. Social History Tobacco Use Smoking status: Never Smokeless tobacco: Never Substance Use Topics Alcohol use: Not Currently Drug use: Never ALLERGIES: Nalbuphine and Adhesive Tape (Rosins) MEDICATIONS: pregabalin (LYRICA) 50 mg capsule Take 1 capsule by mouth three times a day for 90 days. Dsouo-1-JXJ-EPA-Fish Oil (FISH OIL) 1,000 (120-180) mg cap Take 1 capsule by mouth once daily. esomeprazole (NEXIUM) 20 mg capsule Take 20 mg by mouth once daily. BASE, PCCA VANPEN crea Apply 1 application to affected area once daily. ibuprofen (MOTRIN) 400 mg tablet Take 1 tablet by mouth every 6 hours as needed. MOBIC 15 mg tablet Take 15 mg by mouth once daily. naproxen (NAPROSYN) 250 mg tablet Take 250 mg by mouth two times a day with meals. ubrogepant (UBRELVY) 100 mg tablet Take 100 mg by mouth once daily as needed. OBJECTIVE PHYSICAL EXAM There were no vitals taken for this visit. All other systems deferred. GENERAL: Appears healthy, well-nourished, no deformities. HABITUS: Normal GAIT: Antalgic to the right HIP EXAM: Previous scars: NA. right hip motion is reduced and causes pain. FADIR, DOROTHY, and Stinchfield tests do reproduce the characteristic groin pain. Tenderness to palpation: GTB SILT in S,S, SP, DP, T nerve distributions, 2+ DP pulse 5/5 PF, DF, EHL Foot is warm and well perfused. . DATA: Most recent hip imaging was completed on 01/05/2025 (MRI HIP W IVCON RIGHT (CALL BACK)) . Diagnostic tests reviewed for today's visit: Right hip X-Ray: No abnormalities SIGNATURE: Uriel Guzmán MD PATIENT NAME: Ashlee Jalloh DATE: January 05, 2025 TIME: 3:07 PM documented in this encounter [facility] 01-05-2025 Instructions Rishabh Huang MD - 01/05/2025 2:48 PM EDT We discussed your chronic pain and fibromyalgia: - Fibromyalgia is a condition where your body amplifies pain signals, making even light touch or minor activities painful. It can vary day-to-day and is influenced by factors like stress, weather, and physical activity. Movement is an important part of managing fibromyalgia, even though it may be challenging. - I recommend starting Lyrica (50 mg) to help manage your fibromyalgia and nerve pain. Take it at night for 3-5 days, then add a morning dose for 3-5 days, and finally add an afternoon dose, so you are taking it three times a day. [facility] [place]. Please note that Lyrica is a controlled medication in [place]. - Follow up with my PA, Yessica, in 3 months to assess how you are doing with Lyrica. We discussed physical therapy: - I recommend starting aqua therapy, as it can reduce the strain on your body while allowing you to move more comfortably. This can help improve your pain and mobility over time. I will provide a referral for aqua therapy, which you can take to a local facility near you. We discussed your mental health and coping with chronic pain: - Chronic pain can significantly impact your mood and mental health. I recommend participating in our pain recovery program, which focuses on optimizing sleep, diet, activity levels, and coping mechanisms. This program also offers options like ketamine infusions and psychotherapy, which may help with pain management. - I will provide a referral to our pain psychologist, who can help you develop strategies to cope with chronic pain. - I encourage you to follow up with psychiatry to address your depression and past trauma. You mentioned a previous referral was placed but that you have not been contacted yet. Please call the central scheduling number to check on the status of the referral and schedule an appointment. We discussed your medication sensitivities: - You have experienced significant side effects with medications in the past, including dizziness and blackouts. While Lyrica is generally well-tolerated, please monitor for any side effects, especially changes in blood pressure, as you mentioned a history of sensitivity to medications affecting blood pressure. Let us know if you experience any issues. Next steps: - Begin Lyrica as prescribed and monitor for any side effects. - Schedule an appointment for aqua therapy using the referral provided. - Call central scheduling to follow up on your psychiatry referral and schedule an appointment. - Follow up with my PA, Yessica, in 3 months to evaluate your progress with Lyrica. Please let us know if you have any questions or concerns. documented in this encounter [facility] 01-05-2025 History of Present illness Narrative Radiology Service Progress Note PATIENT NAME: Ashlee Jalloh DATE OF SERVICE: January 05, 2025 TIME: 1:53 PM PATIENT IDENTITY VERIFICATION COMPLETED USING TWO (2) IDENTIFIERS: Name and Date of confirmed by patient verbally. FALL SCREENING: Has the patient had 2 falls in the last year or 1 fall with injury or currently using an Ambulatory Assistive Device (Walker, Cane, Wheelchair, Crutches, etc.)? No PATIENT GENDER DATA: Assigned female at . status: : No status: NO. PATIENT RELEVANT IMPLANT DATA REVIEWED: Not Applicable PATIENT PRESENTS WITH AN IMPLANTABLE OR ATTACHED AUTO DAMAGE ADJUSTER: No RADIOLOGY DEPARTMENT: General X-ray: Exam(s) Completed: Pelvis X-Ray: Pelvis with Hip Right PERIPHERAL IV DATA: Not applicable SIGNED BY: NICO Krueger) January 05, 2025 1:53 PM documented in this encounter [facility] 01-05-2025 Note HNO ID: [id number] Author: NALDO RAMIREZ RT(Franca) Service: Radiology Author Type: Technologist Type: Progress Notes Filed: 01/05/2025 14:16 Note Text: Radiology Service Progress Note PATIENT NAME: Ashlee Jalloh DATE OF SERVICE: January 05, 2025 TIME: 1:53 PM PATIENT IDENTITY VERIFICATION COMPLETED USING TWO (2) IDENTIFIERS: Name and Date of confirmed by patient verbally. FALL SCREENING: Has the patient had 2 falls in the last year or 1 fall with injury or currently using an Ambulatory Assistive Device (Walker, Cane, Wheelchair, Crutches, etc.)? No PATIENT GENDER DATA: Assigned female at . status: : No status: NO. PATIENT RELEVANT IMPLANT DATA REVIEWED: Not Applicable PATIENT PRESENTS WITH AN IMPLANTABLE OR ATTACHED AUTO DAMAGE ADJUSTER: No RADIOLOGY DEPARTMENT: General X-ray: Exam(s) Completed: Pelvis X-Ray: Pelvis with Hip Right PERIPHERAL IV DATA: Not applicable SIGNED BY: Naldo Ramirez, RT(R) January 05, 2025 1:53 PM [facility] 01-05-2025 History of Present illness Narrative Images from the original note were not included. [facility] Department Consultation Date: January 05, 2025 - Referring physician: Johnathan Haas [id number] [facility] [id number] Ashlee Jalloh is seen in consultation requested by Dr. Johnathan Haas for an opinion regarding chronic lower back pain. My final recommendations will be communicated back to the requesting physician by way of shared medical record or via US mail. Chief Complaint: Patient presents with: Consult SUBJECTIVE History of Present Illness Ashlee Jalloh is a 39 year old and presents with lower back pain. Past medical history is significant for: No past medical history on file. Intensity of pain: 8 on a scale of 0-10. Duration of pain: Years ago, with no precipitating event.. The pain is located (rt hip,low back) and radiates to the foot/toe bilaterally. Pain Description: Continuous Sharp, Stabbing, Tightness, Aching Timing: changes in severity but always present Aggravating Factors: activity and pain is constant Alleviating Factors: Reposition (tens unit) Interference with: physical activity, sleeping, and social activities. In the past 12 months, She completed 4 physical therapy sessions. Physical therapy is not helpful. The patient has not seen other pain providers. Rheumatology 10/07/24 Assessment / Recommendations 1. Fibromyalgia Overall impression and Plan I explained to patient that there is no evidence of synovitis/synovial hypertrophy during today's exam. Based on history, ros, clinical exam the likelihood of inflammatory arthritis/or systemic autoimmune disorder is low at this time. Should the symptoms change we may consider repeating labs, monitor symptoms at this time Her symptoms at this time can be explained by fibromyalgia. I shared following information with her #Fibromyalgia The patient has widespread pain, on both sides of the body, above and below the waist. Patient has multiple associated symptoms with fibromyalgia that include chronic fatigue, chronic sleep disturbances, cognitive disturbances, IBS, headaches I spent time counseling the patient on fibromyalgia. I explained to the patient that fibromyalgia is a disorder characterized by widespread musculoskeletal pain, accompanied by fatigue, sleep, memory in mood issues. In general it is thought that fibromyalgia symptoms are secondary to overactive nerves, which amplify painful sensations by the way the brain processes the pain signals. I told the patient on functional brain MRIs, we have also seen that fibromyalgia patients have increased blood flow to the somatosensory cortex. I told the patient the good news, is that this syndrome cannot cause any organ dysfunction, and does not lead to accelerated osteoarthritis. Unfortunately, the bad news, is that it can disrupt quality of the life significantly. Main stays of treatment include the following -daily relaxing exercise, start with 10-15 minutes a day and slowly build up -good sleep hygiene -avoid alcohol, cigarettes -practice eating mostly whole foods plant based diet -5-10 minutes of meditation daily -stress management -plan relaxing activities with family and friends Overall Impression from Dr. Morales: Ashlee Jalloh is a 39 y.o. female patient with a recent history of nasal septal perforation who was referred to our office by her ENT provider for concern of this cartilage finding as well as ongoing arthritis. At this time based on the patient's history, ros, physical exam, and prior workup I have a low degree of suspicion for small-vessel vasculitis as the etiology of her present nasal septal perforation. However to more comprehensively rule out a systemic vasculitis we pursued additional serologic testing. In terms of the patient's ongoing arthritic symptoms it is concerning that she has had lumbar spine abnormalities and sacroiliac pain chronically at a relatively young age. It seems from review of her outside charting in her previous imaging there was not definitive evidence of an inflammatory arthritis. However there was not a dedicated sacroiliac imaging that was done in the recent past. As such today we pursued plain film imaging of the sacroiliac joints to better characterize her ongoing SI joint pain. The results of her recent work up were within normal limits. She had evidence of degenerative arthritis but no definitive evidence of a systemic autoimmune condition or inflammatory arthritis. We did discuss the possibility that her ongoing chronic pain symptoms could be based in fibromyalgia. Recommendations: Labs, Imaging, Special Studies: No orders of the defined types were placed in this encounter. Treatment Plan: -No specific rheumatological medications at this time -Flexeril 10 mg at bedtime -She is on naproxen 250 mg twice a day prescribed by other provider -she is intolerant to various antidepressants as well as gabapentin -I have encouraged a discussion with PCP about genetic testing for medication tolerance Consults/Referrals: -cognitive behavior therapy with [facility] care -Recommended that she reach out to her PCP and pursue a GI referral to get more definitive evaluation for her frequent diarrhea and occasional blood in stools Health Maintenance: -The patient should continue to follow with their PCP for age and risk factor appropriate cancer screening and immunizations. Follow-up: -11-12 weeks to review response to medications Spine Medicine 12/15/24 PROVISIONAL DIAGNOSIS: 39 years old female with multiple medical issues PTSD chronic depresison chronic pain syndrome fibromyalgia chronic pelvic pain bilateral hip pain post fusion lumbar bilateral SIJ fusion labral tear hip failed hip injection unable to take medications unable to do physical therapy due to severe pain PLAN: Discussed treatment options need updated spine workup post fusion lumbar bilateral SIJ fusion chronic pain recommend CT lumbar x-ray lumbar x-ray hips pelvis Chronic bilateral hip pain right more than left labral tear consult orthopedic Would like to see psych complaining due to chronic depression PTSD referral in place Consult pain management May try cold therapy Recheck in 2 months to as needed after spine workup Possible Red Flag Ashlee Jalloh has no red flag symptoms. Past pain treatment has included Chiropractor/OMT, Exercise, PT, and Surgery Past pain medications have included NSAIDs (advil, ibuprofen, celebrex, meloxicam, etc) She had relief from the following interventions: None She had relief from the following medications:None Review of Systems Constitutional: Negative. HENT: Negative. Eyes: Negative. Respiratory: Negative. Cardiovascular: Negative. Gastrointestinal: Negative. Genitourinary: Negative. Musculoskeletal: Positive for back pain. Negative for falls, joint pain, myalgias and neck pain. Skin: Negative. Neurological: Positive for dizziness, tingling and headaches. Negative for tremors, sensory change, speech change, focal weakness, seizures, loss of consciousness and weakness. Endo/Heme/Allergies: Negative. Psychiatric/Behavioral: Negative. OBJECTIVE Imaging Objective December 26, 2024 * * *Final Report* * * DATE OF EXAM: Dec 26 2024 6:27PM [facility] [id number] - CT LUMBAR SPINE WO IVCON / PROCEDURE REASON: Spinal stenosis of lumbar region, unspecified whether neurogenic claudication pr * * * * Physician Interpretation * * * * EXAMINATION: CT LUMBAR SPINE WO IVCON CLINICAL HISTORY: Chronic pain syndrome with severe low back, pelvic, and bilateral hip pain with L4-5 posterior fusion and fusion of the SI joints. COMPARISON: None available. TECHNIQUE: Standard CT of the lumbar spine was performed without IV or intrathecal contrast. CT Radiation dose: Integrated Dose-length product (DLP) for this visit = 803 mGy*cm. CT Dose Reduction Employed: Automated exposure control (AEC) FINDINGS: There are 4 lumbar type vertebrae with sacralization of L5 on the left. The left transverse process of L5 is enlarged fusing with the sacroiliac joint (Castellvi type IIIa). There are postsurgical changes of L4-5 posterior fusion bipedicular screws and bilateral fusion rods. Additional interbody cage placement at L4-5. There is been posterior decompression at L4 with bilateral laminectomies and resection of the spinous processes. There is been additional right medial facetectomy and left total facetectomy. No gross evidence of fluid collections at the surgical site within limitations of artifact and lack of intravenous contrast. Subtle dextrocurvature of the lumbar spine. No subluxation. The height of the vertebral bodies are maintained. There is irregularity at the posterior aspects of the right iliac bones at the superior aspect of the sacroiliac joints with faint calcification possibly related to previous attempted fusion with bone graft placement. No bridging callus. Minimal degenerative changes at the inferior aspects of the sacroiliac joints. No erosions. No evidence of acute osseous abnormality or destructive osseous lesion. Evaluation of the distal cord, conus, and cauda equina suboptimal without intrathecal contrast. T12-L1: No significant disc pathology or stenosis. L1-L2: No significant disc pathology or stenosis. L2-L3: Questionable protrusion the left foraminal region. Facet joints are maintained. No evidence of central canal or neural foraminal stenosis. L3-L4: Evaluation is partially obscured due to streak artifact from the posterior fusion hardware Mild concentric disc bulge. Mild left and minimal right facet arthropathy. Questionable resection of the right ligamentum flavum. Central canal suboptimally evaluated due to artifact. There appears to be mild bilateral neural foraminal stenoses within limitations of technique. L4-L5: Postsurgical changes of posterior fusion and posterior decompression. Ankylosis of the right facet joint. Central canal is suboptimally evaluated due to artifact. Neural foramina appear patent within limitations of artifact. L5-S1: Disc is maintained. Bridging discogenic osteophyte formation in the left foraminal region. Minimal right facet arthropathy. Central canal is patent. Minimal left neural femoral narrowing. Right neural foramen is patent. Moderate atrophy of the erector spinae musculature overlying the lower lumbar spine and sacrum related to the posterior fusion. Paraspinal soft tissues are otherwise unremarkable. Reports listed here were copy and pasted directly into the note after review of the complete report and/or the images. Those areas highlighted in red are significant and specific to today's encounter. Physical Examination Physical Exam Vitals: BP 119/63 Pulse 72 Wt 180 lb (81.6kg) General: Well appearing, alert, in no acute distress, well-hydrated, well nourished. Mental Status: Alert and Oriented x3. Speech is normal. Affect: depressed Skin: Skin color, texture, turgor normal, no suspicious rashes or lesions HEENT: Pupils equal, round, reactive to light. Not pinpoint. Pulmonary: Breathing easily without tachypnea or bradypnea. Cardiac: No LE edema. Abdomen: soft, not distended Ambulation: Gait is normal. Patient ambulates, unassisted. Neuro/Musculoskeletal: flexion (normal 45): restricted and reproduces pain extension (normal 25): restricted and reproduces pain Facet Palpation: Right tender; Left tender Facet Loading: Right non-tender; Left non-tender Straight Leg Raise: Right Negative; Left Negative Palpation: diffuse tenderness noted throughout the proximal upper and lower extremities, diffusely throughout the cervical, thoracic, and lumbar spine +Motor Strength Iliopsoas: 5/5 (full) Quadriceps: 5/5 (full) Hamstrings: 5/5 (full) Ankle Dorsiflexion: 5/5 (full) Ankle Plantarflexion: 5/5 (full) +Reflexes Ankle (S1): Left: 2-3+ - Normal Right: 2-3+ - Normal Knee (L4): Left: 2-3+ - Normal Right: 2-3+ - Normal +Sensory Exam Right LE: Numbness Left LE: Numbness Patient denies any red flag symptoms such as bowel/bladder dysfunction or sudden weakness. Assessment & Plan Assessment & Plan January 05, 2025 The primary encounter diagnosis was Fibromyalgia. Diagnoses of Diffuse pain, Back pain with history of spinal surgery, Status post lumbar spinal fusion, Chronic pain syndrome, and History of suicide attempt were also pertinent to this visit. Ashlee is a 39-year-old female with a history of multiple back surgeries, presenting with chronic pain and recent fibromyalgia diagnosis. Ashlee reports chronic pain in the hips, neck, and back, with no areas of the body free from pain. She has undergone multiple back surgeries, L4-5 fusion and SI joint fusion, without relief. The pain began in late 2018 to early 2019, initially presenting as migraines. A spine x-ray revealed a fusion of the tailbone and spine, initially suspected to be ankylosing spondylitis, but tests were negative. She subsequently developed a herniated disc at L4-L5, for which a discectomy was performed instead of removing the disc. This was followed by a fusion surgery, after which she experienced significant stress. Ashlee also reports a tear and bone spurs in the hip, with knees starting to go bone on bone. 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 An MRI was performed, but surgery was deemed unnecessary due to scarring. Both knees are affected similarly. Ashlee has a recent diagnosis of fibromyalgia, which she describes as causing widespread pain and touch sensitivity, particularly in the forearms. She has had this sensitivity since childhood, but it has worsened in recent years. She is unable to wear anything on her arms for extended periods and has medical clearance to wear a jacket with sleeves rolled up at work. She notes that her pain varies daily and is affected by weather, stress, and physical activity. She has not yet found a balance in managing her symptoms. She was supposed to have hip replacement surgery in May, but it was delayed due to insurance issues. Her current doctor is hesitant to perform the surgery due to her age and is considering a scope instead. 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 Ashlee has tried various medications, including gabapentin at a low dose of 100 mg once daily for 5 days, prescribed by Ismael Bravo, without relief. She reports being highly sensitive to medications, experiencing dizziness and episodes of conscious blackouts where she loses vision but can still feel, hear, and move. She has had these episodes while walking, leading to falls. She is unable to take medications for migraines, depression, PTSD, or anxiety due to these side effects. She has also experienced adverse effects from nortriptyline and Trokendi, which caused dry mouth and speech issues. She has tried physical therapy multiple times but finds it too aggressive and painful, often leaving sessions early. She has not tried aqua therapy but expresses interest in it. She lives in [place], about an hour [place] a half away, making frequent visits challenging. Ashlee has a history of severe depression and has been flagged as a suicide risk. She attempted suicide twice at age 14 and has a history of s, elf-harm. She is not currently seeing a psychiatrist but has a referral pending. She reports that her previous psychiatrist did not address the root causes of her depression, which she attributes to a difficult past. She states that she will not attempt suicide again due to her children but continues to struggle with self-harm as a coping mechanism. # Fibromyalgia (M79.7) # Diffuse pain (R52) # Chronic pain syndrome (G89.4) Recent diagnosis of fibromyalgia with long standing history of widespread pain and hypersensitivity to touch. Pain is exacerbated by various factors including weather, stress, and physical activity. Patient has tried some neuropathic agents and has a history of poor medication tolerance. Chronic pain is significantly impacting quality of life and mental health. - Educated patient on the nature of fibromyalgia, emphasizing the importance of a multidisciplinary approach to management. - Initiated Lyrica 50 mg at night for 3-5 days, then add a morning dose for 3-5 days, followed by an afternoon dose, ultimately taking it TID. - Referred to pain psychologist and comprehensive pain recovery program, which includes considerations for ketamine infusions and various psychotherapy-based programs. - Recommended aqua therapy to facilitate movement with reduced pain. - Advised patient to follow up with psychiatry for further evaluation and management of chronic pain and associated mental health issues. - Scheduled follow-up with Yessica in 3 months to assess response to Lyrica and overall progress. # Back pain with history of spinal surgery (M54.9) # Status post lumbar spinal fusion (Z98.1) Multiple back surgeries including SI joint fusion and lumbar spinal fusion with persistent back pain. Limited range of motion and tenderness noted diffusely on physical exam, no worrying signs or symptoms on exam. Previous surgeries have not alleviated pain. - Discussed the importance of ongoing physical therapy to maintain and improve mobility. - Recommended continuation of prescribed exercises and consideration of alternative therapies such as aqua therapy. - Advised patient to monitor for any changes in pain or mobility and report back if symptoms worsen. # History of suicide attempt (Z91.51) Patient has a history of severe depression, anxiety, and PTSD with previous suicide attempts and self-harm behaviors. Current mental health status is fragile, with chronic pain contributing to depressive symptoms. - Strongly recommended re-engagement with psychiatric care for comprehensive mental health management. - Advised patient to contact central scheduling to expedite appointment with psychiatry. - Emphasized the importance of addressing underlying mental health issues to improve overall well-being and pain management. The above plan and management options were discussed with patient. The patient is in agreement with the above and verbalized understanding. Rishabh Huang MD Electronic signature This office note has been dictated and may contain minor typographic errors that escaped review. I have confirmed and edited as necessary, the PFSH and ROS obtained by others. Relevant History from the Electronic Medical Record Questionnaires: Patient Entered Questionnaires PROMIS Score Percentiles 01/05/2025 Physical Health Physical Function Percentile 7 Pain Interference Percentile 1 01/05/2025 PROMIS Global Health Scale Physical Health Percentile 0 Mental Health Percentile 1 Patient-reported Percentiles provide an indication of how the patient's score ranks in relation to the general population. Higher percentile rankings indicate better function/quality of life. 50th percentile is the average of the general population and indicates half of respondents had a worse score. Depression Screenin01/05/2025 PHQ-9 Score 22 01/05/2025 PHQ-9 Self Harm Question 9 Several days PHQ-9 Self-Harm (Item 9) response options: 0 Not at all 1 Several days 2 More than half the days 3 Nearly every day PHQ-9 Levels: 0-4 Minimal depression 5-9 Mild depression 10-14 Moderate depression 15-19 Moderately severe depression 20-27 Severe depression PHQ-9 Score 01/05/2025 22 (0-4) minimal depression, (5-9) mild depression, (10-14) moderate depression, (15-19) moderately severe depression, (20-27) severe depression No data to display No data to display ALLERGIES Allergen Reactions Nalbuphine Intolerance, Vomiting, Other: See Comments, Rash Pt vomited after being given Nubain in the past pt states when taking it becamse dizzy and nauseated was pregant had to be rushed back to surgery. Adhesive Tape (Palak* Rash Cloth tape, tears skin and welts Current Medications: Tccmi-8-RFA-EPA-Fish Oil (FISH OIL) 1,000 (120-180) mg cap Take 1 capsule by mouth once daily. esomeprazole (NEXIUM) 20 mg capsule Take 20 mg by mouth once daily. BASE, PCCA VANPEN crea Apply 1 application to affected area once daily. ibuprofen (MOTRIN) 400 mg tablet Take 1 tablet by mouth every 6 hours as needed. MOBIC 15 mg tablet Take 15 mg by mouth once daily. naproxen (NAPROSYN) 250 mg tablet Take 250 mg by mouth two times a day with meals. ubrogepant (UBRELVY) 100 mg tablet Take 100 mg by mouth once daily as needed. pregabalin (LYRICA) 50 mg capsule Take 1 capsule by mouth three times a day for 90 days. No past medical history on file. No past surgical history on file. No family history on file. Social History: Alcohol Use: Not Currently Tobacco Use: Never Drug Use: Never Employer And Job Title: None on file Years Of Education Completed: Not specified Marital Status: Unknown Medical Decision Making The [facility] EMR was reviewed during the visit including: Problem List, Past Medical History, Past Surgical History, Medications, Allergies, Encounters with other providers and associated notes, Imaging, Labs, and Care Everywhere for OSH records Notes and tests identified as copied and pasted above were directly placed into the frame of this note and are pertinent to my medical decision making. [place]ARRS: PDMP website checked and validated and is consistent with medication report. *Information in italics was copied from the shared EMR Medical Decision Making: Problems: Moderate: 2+ stable chronic illnesses Data: Unique source(s) for external note(s) reviewed: 3+ Unique test result(s) reviewed: 2 Risk: Moderate: Drug management Medical Decision Making Level: 4 - Moderate documented in this encounter [facility] 01-05-2025 Note HNO ID: [id number] Author: RISHABH HUANG MD Service: ? Author Type: Physician Type: Progress Notes Filed: 01/05/2025 15:00 Note Text: [facility] Department Consultation Date: January 05, 2025 - Referring physician: Johnathan Haas [address] [facility] [id number] Ashlee Jalloh is seen in consultation requested by Dr. Johnathan Haas for an opinion regarding chronic lower back pain. My final recommendations will be communicated back to the requesting physician by way of shared medical record or via US mail. Chief Complaint: Patient presents with: Consult SUBJECTIVE History of Present Illness Ashlee Jalloh is a 39 year old and presents with lower back pain. Past medical history is significant for: No past medical history on file. Intensity of pain: 8 on a scale of 0-10. Duration of pain: Years ago, with no precipitating event.. The pain is located (rt hip,low back) and radiates to the foot/toe bilaterally. Pain Description: Continuous Sharp, Stabbing, Tightness, Aching Timing: changes in severity but always present Aggravating Factors: activity and pain is constant Alleviating Factors: Reposition (tens unit) Interference with: physical activity, sleeping, and social activities. In the past 12 months, She completed 4 physical therapy sessions. Physical therapy is not helpful. The patient has not seen other pain providers. Rheumatology 10/07/24 Assessment / Recommendations 1. Fibromyalgia Overall impression and Plan I explained to patient that there is no evidence of synovitis/synovial hypertrophy during today's exam. Based on history, ros, clinical exam the likelihood of inflammatory arthritis/or systemic autoimmune disorder is low at this time. Should the symptoms change we may consider repeating labs, monitor symptoms at this time Her symptoms at this time can be explained by fibromyalgia. I shared following information with her #Fibromyalgia The patient has widespread pain, on both sides of the body, above and below the waist. Patient has multiple associated symptoms with fibromyalgia that include chronic fatigue, chronic sleep disturbances, cognitive disturbances, IBS, headaches I spent time counseling the patient on fibromyalgia. I explained to the patient that fibromyalgia is a disorder characterized by widespread musculoskeletal pain, accompanied by fatigue, sleep, memory in mood issues. In general it is thought that fibromyalgia symptoms are secondary to overactive nerves, which amplify painful sensations by the way the brain processes the pain signals. I told the patient on functional brain MRIs, we have also seen that fibromyalgia patients have increased blood flow to the somatosensory cortex. I told the patient the good news, is that this syndrome cannot cause any organ dysfunction, and does not lead to accelerated osteoarthritis. Unfortunately, the bad news, is that it can disrupt quality of the life significantly. Main stays of treatment include the following -daily relaxing exercise, start with 10-15 minutes a day and slowly build up -good sleep hygiene -avoid alcohol, cigarettes -practice eating mostly whole foods plant based diet -5-10 minutes of meditation daily -stress management -plan relaxing activities with family and friends Overall Impression from Dr. Morales: Ashlee Jalloh is a 39 y.o. female patient with a recent history of nasal septal perforation who was referred to our office by her ENT provider for concern of this cartilage finding as well as ongoing arthritis. At this time based on the patient's history, ros, physical exam, and prior workup I have a low degree of suspicion for small-vessel vasculitis as the etiology of her present nasal septal perforation. However to more comprehensively rule out a systemic vasculitis we pursued additional serologic testing. In terms of the patient's ongoing arthritic symptoms it is concerning that she has had lumbar spine abnormalities and sacroiliac pain chronically at a relatively young age. It seems from review of her outside charting in her previous imaging there was not definitive evidence of an inflammatory arthritis. However there was not a dedicated sacroiliac imaging that was done in the recent past. As such today we pursued plain film imaging of the sacroiliac joints to better characterize her ongoing SI joint pain. The results of her recent work up were within normal limits. She had evidence of degenerative arthritis but no definitive evidence of a systemic autoimmune condition or inflammatory arthritis. We did discuss the possibility that her ongoing chronic pain symptoms could be based in fibromyalgia. Recommendations: Labs, Imaging, Special Studies: No orders of the defined types were placed in this encounter. Treatment Plan: -No specific rheumatological medications at this time -Flexeril 10 mg at bedtime -She is on naproxen (more content not included)... [facility] 12-19-2024 Telephone encounter Note letter in Fastr Please fax [facility] Work Phone: 12-19-2024 Miscellaneous Notes letter in Fastr Please fax Ashlee is calling Johnathan Haas MD today asking for a work noted from when she was seen on 4/7 to be faxed over to her work. F: [phone] Attn: Michael Patient has been identified by name and birthdate. Duration of symptoms: N/A Person calling: self Call patient at: at home [phone] (home) Was an appointment scheduled: No Closing statement: Results or non-symptom based questions: Thank you for calling [facility], your call will be returned within the next business day. Patricia Salzaar documented in this encounter [facility] 12-19-2024 Hospital Discharge instructions Guera Coyne PA-C - 12/19/2024 1:04 PM EDT Try heat/ice, rest, and stretch. You can take Tylenol in addition to the prescribed medication. Thank you for choosing us for your care today. You may receive a survey after your visit and I appreciate your feedback Guera Coyne PA-C The following attachments cannot be sent through Care Everywhere.Back Pain (Nigerien)documented in this encounter [facility] 12-18-2024 Telephone encounter Note Called and left message for patient. Informed her of this message: This message is in regards to your upcoming appointment with Dr. Huang on 01/05/25. Please bring any outside medical records, imaging and lab work with you to your appointment. Also Dr. Huang is interventional pain management (injections, physical therapy and non-narcotic medications), he does not prescribe or take over any narcotic opioid pain medications. Informed patient to complete Xrays that were ordered by Dr. Haas prior to her appointment, can go to any [facility] facility convenient for you. If you have any questions about your appointment, please call [phone] and ask for pain management. Thank You, [facility] 12-18-2024 Miscellaneous Notes Called and left message for patient. Informed her of this message: This message is in regards to your upcoming appointment with Dr. Huang on 01/05/25. Please bring any outside medical records, imaging and lab work with you to your appointment. Also Dr. Huang is interventional pain management (injections, physical therapy and non-narcotic medications), he does not prescribe or take over any narcotic opioid pain medications. Informed patient to complete Xrays that were ordered by Dr. Haas prior to her appointment, can go to any [facility] facility convenient for you. If you have any questions about your appointment, please call [phone] and ask for pain management. Thank You, [facility] documented in this encounter [facility] 12-17-2024 Telephone encounter Note Ashlee is calling Johnathan Haas MD today asking for a work noted from when she was seen on 12/15 to be faxed over to her work. F: [phone] Attn: Michael Patient has been identified by name and birthdate. Duration of symptoms: N/A Person calling: self Call patient at: at home [phone] (home) Was an appointment scheduled: No Closing statement: Results or non-symptom based questions: Thank you for calling [facility], your call will be returned within the next business day. Patricia Salazar [facility] 12-15-2024 Note HNO ID: [id number] Author: JOHNATHAN HAAS MD Service: ? Author Type: Physician Type: Progress Notes Filed: 12/15/2024 18:30 Note Text: [facility] Self-referral Complains of whole spine pain Multiple medical issues Fibromyalgia Chronic pain syndrome PTSD chronic depression History of a lumbar spine surgery x 3 most recent in August 2023 bilateral SI joint fusion prior to that she had lumbar fusion states surgery helped for couple months Complains of severe lower back pain bilateral hip pain radiation to legs severe pain limiting function Chronic pelvic pain bilateral hip and groin pain right more than left She was diagnosed with a labral tear would like to see orthopedic at [facility] Chronic depression PTSD would like to establish with psych at [facility] No recent injury or fall 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 These symptoms have been present for several year(s). The onset of symptoms was gradual and progressive. She states the pain is constant, moderate, and severe. The pain is described as aching, moderate, penetrating, severe, sharp, soreness, stiff, tenderness, tingling, and cramping. She reports fusion(s) in lumbar spine and bilateral SI joints. Over a 24-hour period of time, the pain is worst across the whole day and when performing certain activities. The patient states the pain is exacerbated by bending backward, bending forward, exercise, lifting, reaching, twisting, standing, sitting, walking, walking up stairs, and walking down stairs. The patient notes, to date, that the pain is reduced by nonspecific. Up to now, treatments have included: hot packs, massage, physical therapy , exercises, and spinal injections . Positive red flags : are absent on history.. Negative red flags include: age greater than 50 years, fevers, night pain, bowel incontinence, bladder incontinence, persistent adolescent back pain, diagnosis of cancer, significant spinal trauma, and weight loss. 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 Review of systems notes no cough, fever, weight loss or systemic illness. ALLERGIES Allergen Reactions Nalbuphine Intolerance, Vomiting, Other: See Comments, Rash Pt vomited after being given Nubain in the past pt states when taking it becamse dizzy and nauseated was pregant had to be rushed back to surgery. Adhesive Tape (Palak* Rash Cloth tape, tears skin and welts Current Outpatient Medications Medication Sig Qqhdl-1-KCA-EPA-Fish Oil (FISH OIL) 1,000 (120-180) mg cap Take 1 capsule by mouth once daily. esomeprazole (NEXIUM) 20 mg capsule Take 20 mg by mouth once daily. BASE, PCCA VANPEN crea Apply 1 application to affected area once daily. ibuprofen (MOTRIN) 400 mg tablet Take 1 tablet by mouth every 6 hours as needed. MOBIC 15 mg tablet Take 15 mg by mouth once daily. naproxen (NAPROSYN) 250 mg tablet Take 250 mg by mouth two times a day with meals. ubrogepant (UBRELVY) 100 mg tablet Take 100 mg by mouth once daily as needed. No current facility-administered medications for this visit. Medical history was reviewed and acknowledged. PTSD chronic pain fibromyalgia labral ter right side The patient's surgical history was reviewed and acknowledged. s/p lumbar fusion s/p 2 C section s/p pre cervical cancer s/p ablation, s/p hysterectomy Family history was reviewed and acknowledged. Review of social history and habits notes that She Social History Tobacco Use Smoking status: Never Smokeless tobacco: Never Substance Use Topics Alcohol use: Not Currently Drug use: Never Patient Entered Questionnaires PROMIS Score Percentiles Percentiles provide an indication of how the patient's score ranks in relation to the general population. Higher percentile rankings indicate better function/quality of life. 50th percentile is the average of the general population and indicates half of respondents had a worse score. EXAM: Vital Signs reviewed: BP 110/65 (BP Site: Left Arm, BP Position: Sitting, BP Cuff Size: Regular Adult) Pulse 73 Wt 82 kg (180 lb 12.4 oz) Skin exam revealed no open lesions, the surgical incision is clean dry and intact. HEENT reveals no enlarged cervical lymph nodes or palpable thyroid nodules. Brief vascular evaluation notes no s (more content not included)... [facility] 12-15-2024 History of Present illness Narrative [facility] Self-referral Complains of whole spine pain Multiple medical issues Fibromyalgia Chronic pain syndrome PTSD chronic depression History of a lumbar spine surgery x 3 most recent in August 2023 bilateral SI joint fusion prior to that she had lumbar fusion states surgery helped for couple months Complains of severe lower back pain bilateral hip pain radiation to legs severe pain limiting function Chronic pelvic pain bilateral hip and groin pain right more than left She was diagnosed with a labral tear would like to see orthopedic at [facility] Chronic depression PTSD would like to establish with psych at [facility] No recent injury or fall 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 These symptoms have been present for several year(s). The onset of symptoms was gradual and progressive. She states the pain is constant, moderate, and severe. The pain is described as aching, moderate, penetrating, severe, sharp, soreness, stiff, tenderness, tingling, and cramping. She reports fusion(s) in lumbar spine and bilateral SI joints. Over a 24-hour period of time, the pain is worst across the whole day and when performing certain activities. The patient states the pain is exacerbated by bending backward, bending forward, exercise, lifting, reaching, twisting, standing, sitting, walking, walking up stairs, and walking down stairs. The patient notes, to date, that the pain is reduced by nonspecific. Up to now, treatments have included: hot packs, massage, physical therapy , exercises, and spinal injections . Positive red flags : are absent on history.. Negative red flags include: age greater than 50 years, fevers, night pain, bowel incontinence, bladder incontinence, persistent adolescent back pain, diagnosis of cancer, significant spinal trauma, and weight loss. 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 Review of systems notes no cough, fever, weight loss or systemic illness. ALLERGIES Allergen Reactions Nalbuphine Intolerance, Vomiting, Other: See Comments, Rash Pt vomited after being given Nubain in the past pt states when taking it becamse dizzy and nauseated was pregant had to be rushed back to surgery. Adhesive Tape (Palak* Rash Cloth tape, tears skin and welts Current Outpatient Medications Medication Sig Eqatb-3-QBD-EPA-Fish Oil (FISH OIL) 1,000 (120-180) mg cap Take 1 capsule by mouth once daily. esomeprazole (NEXIUM) 20 mg capsule Take 20 mg by mouth once daily. BASE, PCCA VANPEN crea Apply 1 application to affected area once daily. ibuprofen (MOTRIN) 400 mg tablet Take 1 tablet by mouth every 6 hours as needed. MOBIC 15 mg tablet Take 15 mg by mouth once daily. naproxen (NAPROSYN) 250 mg tablet Take 250 mg by mouth two times a day with meals. ubrogepant (UBRELVY) 100 mg tablet Take 100 mg by mouth once daily as needed. No current facility-administered medications for this visit. Medical history was reviewed and acknowledged. PTSD chronic pain fibromyalgia labral ter right side The patient's surgical history was reviewed and acknowledged. s/p lumbar fusion s/p 2 C section s/p pre cervical cancer s/p ablation, s/p hysterectomy Family history was reviewed and acknowledged. Review of social history and habits notes that She Social History Tobacco Use Smoking status: Never Smokeless tobacco: Never Substance Use Topics Alcohol use: Not Currently Drug use: Never Patient Entered Questionnaires PROMIS Score Percentiles Percentiles provide an indication of how the patient's score ranks in relation to the general population. Higher percentile rankings indicate better function/quality of life. 50th percentile is the average of the general population and indicates half of respondents had a worse score. EXAM: Vital Signs reviewed: BP 110/65 (BP Site: Left Arm, BP Position: Sitting, BP Cuff Size: Regular Adult) Pulse 73 Wt 82 kg (180 lb 12.4 oz) Skin exam revealed no open lesions, the surgical incision is clean dry and intact. HEENT reveals no enlarged cervical lymph nodes or palpable thyroid nodules. Brief vascular evaluation notes no swelling, redness or heat of the distal limbs. Peripheral pulses are present and symmetric. Gait is non-antalgic In the appendicular skeleton, range restrictions, effusion, ligamentous laxity and synovitis are absent. Limited bilateral hip range of motion affect demonstrated is appropriate / social interaction preserved. Spinal curvature evaluation notes no abnormalities. Neck range is adequate in six directions. Spurling sign is negative. In muscle segments C-5 through T-1 and L2 through S1 there is no apparent weakness. Focal sensory deficits are absent. Nerve root tension signs are absent. Lumbar range of motion is grossly limited in all planes. Painful arc of motion is present in low back. Muscle exam noted no atrophy, fasciculation or dystonia. Deep palpation tenderness was bilateral lower lumbar paraspinal muscles bilateral SIJ muscle stretch reflexes are present and symmetric throughout. DIAGNOSTIC DATA no images for review results reviewed from care everywhere no recent spine workup CT LUMBAR SPINE WO IVCON Order: [id number] Impression 1. No acute findings in the thoracic spine or lumbar spine. 2. No evident complication associated with postoperative changes at L4 and L5. 3. Thoracic spine and lumbar spine degenerative changes as above. 4. Additional incidental findings as above for which no dedicated follow-up is recommended. Narrative EXAMINATION: CT OF THE LUMBAR SPINE WITHOUT [...] cystic lesion measuring at least 4.1 cm. Exam End: 05/29/23 12:45 AM Impressions 06/15/2023 11:11 AM EDT 1. Prior spinal fusion L4-L5. 2. No acute osseous abnormality evident by CT. 3. Bilateral SI joints appear patent without SI joint fusion or erosive change. 4. 4.6 x 3.0 cm left adnexal cyst. Further evaluation with pelvic ultrasound recommended. 5. Mild nonspecific edema and fluid in the subcutaneous fat of the midline lower abdomen/upper pelvis. Imaging Results - CT PELVIS WO CONTRAST Additional Contrast? None (06/15/2023 10:02 AM EDT) Narrative 06/15/2023 11:11 AM EDT EXAMINATION: CT [...] Bilateral hip joint spaces are well maintained. Imaging Results - CT PELVIS WO CONTRAST Additional Contrast? None (06/15/2023 10:02 AM EDT) Procedure Note Gm Uribe MD - 06/15/2023 [...] fat of the midline lower abdomen/upper pelvis. PROVISIONAL DIAGNOSIS: 39 years old female with multiple medical issues PTSD chronic depresison chronic pain syndrome fibromyalgia chronic pelvic pain bilateral hip pain post fusion lumbar bilateral SIJ fusion labral tear hip failed hip injection unable to take medications unable to do physical therapy due to severe pain PLAN: Discussed treatment options need updated spine workup post fusion lumbar bilateral SIJ fusion chronic pain recommend CT lumbar x-ray lumbar x-ray hips pelvis Chronic bilateral hip pain right more than left labral tear consult orthopedic Would like to see psych complaining due to chronic depression PTSD referral in place Consult pain management May try cold therapy Recheck in 2 months to as needed after spine workup Patient understands above plan; questions asked and answered. She was educated regarding signs and symptoms that would indicate a serious change in their condition, and instructed to seek care immediately should these arise. Patient agrees to plan as noted above. The duration of this appointment was more than 60 minutes of in person evaluation evaluation. At least 50% of this time was spent in counseling, explanation of diagnosis, planning of further management, and coordination This note was partially generated using Keep[employer] voice recognition system, and there may be some incorrect words, spellings, and punctuation that were not noted in checking the note before saving Johnathan Haas MD documented in this encounter [facility] 12-03-2024 Hospital Discharge instructions Catherine Calvillo MD - 12/03/2024 3:06 PM EDT Start Medrol Dosepak tomorrow take as directed until complete. Use 4 hours as needed for spasms. Heat or ice for 5 to 10-minute intervals as desired for comfort. May use [id number] product such as IcyHot Biofreeze or similar as needed and directed. Follow-up with your primary care provider in 3 to 5 days for recheck. Please return immediately should you develop any worsening symptoms or any other acute concerns The following attachments cannot be sent through Care Everywhere.Numbness and Tingling ([place]ien)Cervical Strain ([place]ien)documented in this encounter [facility] 10-06-2024 Evaluation + Plan note Diagnostic Tests PendingT3 Free 10/06/24 Future Scheduled TestsXR Spine Lumbosacral Minimum 4 Views 11/07/23 [facility] 10-02-2024 Evaluation + Plan note Associated Problem(s): Raynaud's disease without gangrene Recommended to discontinue her phentermine if possible and conservative management of her Raynaud's. [facility] 10-02-2024 Miscellaneous Notes Associated Problem(s): Raynaud's disease without gangrene Recommended to discontinue her phentermine if possible and conservative management of her Raynaud's. documented in this encounter [facility] 10-02-2024 History of Present illness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 and then she sees blood in stool, never had a colonoscopy in the past --- notes that diarrhea and stool urgency has been a problem for her since she was a teenager -has had kidney stones but no history of CKD -no history of CVD, we previously told that she has a heart murmur -no respiratory issues or hemoptysis -does have hearing issues but attributes this to frequent ear infections in childhood Family Hx: -no relevant family hx -patient was adopted so has limited knowledge of her biological family Interval History: The patient presents to the office for a follow up visit. She is accompanied by her significant other at today's visit. We reviewed her recent blood work and xrays and note that there is no significant evidence of a systemic autoimmune disease or inflammatory arthritis at this time. The patient does still have significant ongoing pain throughout the body. She also notes that her previously planned hip surgery with an Orthopedic provider in [place] is no longer going to occur due to insurance approval issues. We did discuss the possibility that many of the patient's symptoms may be based in fibromyalgia. Review of Systems: CONSTITUTIONAL: Admits: [] Weight Loss [] Fever [] Frequent Night Sweats OPHTHALMOLOGIC: Admits: [] Glaucoma [] History or Current Inflammatory Eye Disease [] Cataracts ENT: Admits: [] Oral/Nasal Ulcers [x] epistaxis [] Recurrent Sinusitis [] Dry Eyes [] Dry mouth CARDIOVASCULAR: Admits: [] Chest pain [] Pericarditis/Pleuritis [] Palpitations [] Edema RESPIRATORY: Admits: [] hemoptysis [] Dyspnea on Exertion [] Cough [] Wheezing GASTROINTESTINAL: Admits: [] Bloody Stool [] Diarrhea [] Vomitting GENITOURINARY: Admits: [] Blood in urine [] Genital Ulcers [] Burning/pain with urination MUSCULOSKELETAL: Admits: [] Muscle Pain [x] Joint Pain INTEGUMENTARY: Admits: [] Skin changes [] Sclerodactyly [] Raynauds [] Photosensitivity [] Alopecia NEUROLOGIC: Admits: [] Recurrent Headaches [] Limb Weakness [] Numbness/Tingling PSYCHIATRIC: Admits: [] Insomnia [] Depression [] Anxiety ENDOCRINE: Admits: [] Thyroid abnormalities HEMATOLOGY/LYMPH: Admits: [] Notable Swollen Lymph Nodes [] History of Cytopenias [] Bruising tendency [] History of DVT/PE All non checked boxes, patient denies. All other 10 point ROS reviewed and negative. Current Outpatient Medications Medication Sig Dispense Refill desogestrel-ethinyl estradiol (APRI ORAL) Take by mouth. dexAMETHasone (DECADRON) 0.1 % ophthalmic solution Administer 2 drops into the left eye in the morning and at bedtime. Two drops to the left ear twice a day for 4 days. (Patient not taking: Reported on 01/09/2024) 5 mL 0 diazePAM (VALIUM) 5 mg tablet Take 1 tablet (5 mg total) by mouth every 12 (twelve) hours as needed for anxiety for up to 5 doses. (Patient not taking: Reported on 12/11/2023) 5 tablet 0 esomeprazole (NexIUM) 20 mg capsule Take 1 capsule (20 mg total) by mouth every morning before breakfast. esomeprazole (NexIUM) 20 mg capsule Take 1 capsule (20 mg total) by mouth every morning before breakfast. (Patient not taking: Reported on 05/14/2024) estradioL (ESTRACE) 1 mg tablet Take 1 tablet (1 mg total) by mouth in the morning. (Patient not taking: Reported on 03/06/2024) fluticasone propionate (FLONASE) 50 mcg/actuation nasal spray Administer 2 sprays into each nostril in the morning. (Patient not taking: Reported on 03/06/2024) 16 g 5 insulin NPH (HumuLIN N,NovoLIN N) 100 unit/mL injection Inject 5 Units under the skin 2 (two) times a day before meals. (Patient not taking: Reported on 12/11/2023) insulin regular (HumuLIN R,NovoLIN R) 100 unit/mL injection Inject 5 Units under the skin 2 (two) times a day before meals. (Patient not taking: Reported on 12/11/2023) methylPREDNISolone (MEDROL, DIOGENES,) 4 mg tablet follow package directions (Patient not taking: Reported on 03/06/2024) 21 tablet 0 naproxen (NAPROSYN) 250 mg tablet Take 1 tablet (250 mg total) by mouth 2 (two) times a day as needed for pain. phentermine 37.5 MG capsule Take 1 capsule (37.5 mg total) by mouth once daily. VIT 91/IRON/FOLIC/DHA ( + DHA ORAL) Take 1 tablet by mouth daily. (Patient not taking: Reported on 03/06/2024) No current facility-administered medications for this visit. reviewed. Patient Active Problem List Diagnosis Threatened labor reviewed. Past Surgical History: Procedure Laterality Date SECTION SECTION 2016 LAPAROSCOPY 05/2023 LUMBAR DISCECTOMY 2020 LUMBAR FUSION 2021 PARTIAL HYSTERECTOMY 11/2020 reviewed. Social History Tobacco Use Smoking status: Never Passive exposure: Never Smokeless tobacco: Never Vaping Use Vaping status: Never Used Substance Use Topics Alcohol use: No Drug use: No reviewed. Past Medical History: Diagnosis Date Depression Gestational diabetes History of back surgery History of hysterectomy Kidney stone Migraine Ulcer Urinary tract infection reviewed. Social History Social History Narrative Merged History Encounter reviewed Family History Problem Relation Age of Onset Breast cancer Mother reviewed. Allergies Allergen Reactions Nubain [Nalbuphine] Dizziness and Vomiting Nubain [Nalbuphine] Nausea and Tachycardia Silicone Hives Adhesive Rash Cloth tape, tears skin and welts reviewed. The following portions of the patient's history were reviewed and updated as appropriate: allergies, current medications, past family history, past medical history, past social history, past surgical history and problem list. The following portions of the patient's history were reviewed and updated as appropriate: allergies, current medications, past family history, past medical history, past social history, past surgical history and problem list. Objective Physical Exam: BP 112/70 Resp 16 Ht 162.6 cm (5' 4 ) Wt 77.1 kg (170 lb) BMI 29.18 kg/m : reviewed GEN: AOx3, NAD EYES: Clear lenses, sclerae white, conjunctiva pink. ENT: External ears normal. Nares and nasal mucosa normal. Normal oral aperture. No oropharyngeal lesions. NECK: supple, no LAD. LUNGS: CTAB. HEART: Regular rhythm, normal S1/S2, no M/R/G. ABD: Soft, non-distended, non-tender. VASC: Ext warm, peripheral pulses 2+, no edema. MSK: Evaluated the large and small joints of the upper and lower extremities including the bilateral shoulders, elbows, wrists, hands, knees, ankles, and feet. Unless otherwise stated below, joints were without deformity, impairment in ROM, warmth, or tenderness to palpation. Pertinent MSK Findings: No evidence of synovitis in the small joints of the bilateral hands or wrists. There was also no evidence of bilateral knee effusion at this time. There was no evidence of bilateral ankle effusion or synovitis in the bilateral feet. The patient has a limited range of motion when it comes to lateral bending and forward flexion of the spine Due to pain. She also has discomfort to palpation of the bilateral sacroiliac joints and lumbar spine. INTEGUMENT: Skin, nails, and hair normal unless otherwise stated below. NEURO: Alert. Sensation intact to soft touch. Normal muscle bulk and strength in trunk and limbs. DOMINIQUE-28 (If Applicable) There is currently no information documented on the homunculus. Go to the Rheumatology activity and complete the homunculus joint exam. DOMINIQUE-28 (CRP): -- DOMINIQUE-28 (ESR): -- Tender (DOMINIQUE-28): -- Swollen (DOMINIQUE-28): -- Labs and Imaging: reviewed and discussed with the patient during the visit. General Labs: Lab Results Component Value Date WBC 20.8 (H) 04/28/2017 HGB 11.8 04/28/2017 HCT 35.1 04/28/2017 MCV 89 04/28/2017 PLT 259 04/28/2017 Lab Results Component Value Date CREATININE 0.65 04/28/2017 BUN 11 04/28/2017 K 3.8 04/28/2017 CL 105 04/28/2017 CO2 18 (L) 04/28/2017 Lab Results Component Value Date ALT 7 04/28/2017 AST 10 04/28/2017 ALKPHOS 90 04/28/2017 Inflammatory Markers Lab Results Component Value Date CRP 0.4 05/14/2024 RA-related Auto-Ab's No results found for: RF LARISSA & related Labs No results found for: LARISSA , ANTIRNP , ANTISMRNP , C3 , C4 Scleroderma-related Auto-Ab's No results found for: SCL70 , JO1 Myositis-related Auto-Ab's No results found for: JO1 APLS-related Auto-Ab's No results found for: DRVVT Vasculitis-related Auto-Ab's No results found for: MYELOPEROXID Imaging / Special Studies Reviewed in EMR. Assessment / Recommendations 1. Polyarthritis 2. Osteoarthritis, unspecified osteoarthritis type, unspecified site 3. Fibromyalgia 4. Muscle tension pain Overall Impression: Ashlee Jalloh is a 39 y.o. female patient with a recent history of nasal septal perforation who was referred to our office by her ENT provider for concern of this cartilage finding as well as ongoing arthritis. At this time based on the patient's history, ros, physical exam, and prior workup I have a low degree of suspicion for small-vessel vasculitis as the etiology of her present nasal septal perforation. However to more comprehensively rule out a systemic vasculitis we pursued additional serologic testing. In terms of the patient's ongoing arthritic symptoms it is concerning that she has had lumbar spine abnormalities and sacroiliac pain chronically at a relatively young age. It seems from review of her outside charting in her previous imaging there was not definitive evidence of an inflammatory arthritis. However there was not a dedicated sacroiliac imaging that was done in the recent past. As such today we pursued plain film imaging of the sacroiliac joints to better characterize her ongoing SI joint pain. The results of her recent work up were within normal limits. She had evidence of degenerative arthritis but no definitive evidence of a systemic autoimmune condition or inflammatory arthritis. We did discuss the possibility that her ongoing chronic pain symptoms could be based in fibromyalgia. Recommendations: Labs, Imaging, Special Studies: No orders of the defined types were placed in this encounter. Treatment Plan: -No specific rheumatological medications at this time -provided the patient with written information about fibromyalgia and it's management Consults/Referrals: -No new referrals at this time -Recommended that she reach out to her PCP and pursue a GI referral to get more definitive evaluation for her frequent diarrhea and occasional blood in stools Health Maintenance: -The patient should continue to follow with their PCP for age and risk factor appropriate cancer screening and immunizations. Follow-up: -4 weeks with Myra to discuss fibromyalgia and possible management strategies Shirin Morales MD, MPH [facility] [address] [place] [address] Total [id number]-df-[id number] time was 45 minutes with more than 50% of the visit spent counseling and discussing diagnostic or treatment recommendations, prognosis, risks and benefits of management options, instructions, compliance or risk-factor reduction. This note was created with the assistance of a speech recognition program. While intending to generate a timely document that accurately reflects the content of the visit, no guarantee can be provided that every grammatical or spelling mistake has been or will be identified or corrected. Thank you for your understanding. documented in this encounter [facility] 08-06-2024 Instructions Shirin Morales MD MPH - 08/06/2024 2:45 PM EST Fibromyalgia information from the [facility]. Other information can be found at [email or web address] Fibromyalgia is a common health problem that causes widespread pain and tenderness (sensitive to touch). The pain and tenderness tend to come and go, and move about the body. Most often, people with this chronic (long-term) illness are fatigued (very tired) and have sleep problems. It can be hard to diagnose fibromyalgia. FAST FACTS Fibromyalgia affects two to four percent of people, mostly women. Doctors diagnose fibromyalgia based on all the patient's relevant symptoms (what you feel), no longer just on the number of tender points. There is no test to detect this disease, but you may need lab tests or X-rays to rule out other health problems. Though there is no cure, medications can relieve symptoms. Patients also may feel better with proper self-care, such as exercise and getting enough sleep. WHAT IS FIBROMYALGIA? Fibromyalgia is a chronic health problem that causes pain all over the body and other symptoms. Other symptoms that patients most often have are: Tenderness to touch or pressure affecting joints and muscles Fatigue Sleep problems (waking up unrefreshed) Problems with memory or thinking clearly Some patients also may have: Depression or anxiety Migraine or tension headaches Digestive problems: irritable bowel syndrome (commonly called IBS) or gastroesophageal reflux disease (often referred to as GERD) Irritable or overactive bladder Pelvic pain Temporomandibular disorder--often called TMJ (a set of symptoms including face or jaw pain, jaw clicking and ringing in the ears) Symptoms of fibromyalgia and its related problems can vary in intensity, and will wax and wane over time. Stress often worsens the symptoms. WHAT CAUSES FIBROMYALGIA? The causes of fibromyalgia are unclear. They may be different in different people. Fibromyalgia may run in families. There likely are certain genes that can make people more prone to getting fibromyalgia and the other health problems that can occur with it. Genes alone, though, do not cause fibromyalgia. There is most often some triggering factor that sets off fibromyalgia. It may be spine problems, arthritis, injury, or other type of physical stress. Emotional stress also may trigger this illness. The result is a change in the way the body talks with the spinal cord and brain. Levels of brain chemicals and proteins may change. For the person with fibromyalgia, it is as though the volume control is turned up too high in the brain's pain processing centers. WHO GETS FIBROMYALGIA? Fibromyalgia is most common in women, though it can occur in men. It most often starts in middle adulthood, but can occur in the teen years and in old age. Younger children can also develop widespread body pain and fatigue. You are at higher risk for fibromyalgia if you have a rheumatic disease (health problem that affects the joints, muscles and bones). These include osteoarthritis, lupus, rheumatoid arthritis, or ankylosing spondylitis. HOW IS FIBROMYALGIA DIAGNOSED? A doctor will suspect fibromyalgia based on your symptoms. Doctors may require that you have tenderness to pressure or tender points at a specific number of certain spots before saying you have fibromyalgia, but they are not required to make the diagnosis (see the Box). A physical exam can be helpful to detect tenderness and to exclude other causes of muscle pain. There are no diagnostic tests (such as X-rays or blood tests) for this problem. Yet, you may need tests to rule out another health problem that can be confused with fibromyalgia. Because widespread pain is the main feature of fibromyalgia, health care providers will ask you to describe your pain. This may help tell the difference between fibromyalgia and other diseases with similar symptoms. For instance, hypothyroidism (underactive thyroid gland) and polymyalgia rheumatica sometimes mimic fibromyalgia. Yet, certain blood tests can tell if you have either of these problems. Sometimes, fibromyalgia is confused with rheumatoid arthritis or lupus. But, again, there is a difference in the symptoms, physical findings and blood tests that will help your health care provider detect these health problems. Unlike fibromyalgia, these rheumatic diseases cause inflammation in the joints and tissues. HOW IS FIBROMYALGIA TREATED? There is no cure for fibromyalgia. However, symptoms can be treated with both medication and non-drug treatments. Many times the best outcomes are achieved by using multiple types of treatments. 1. Medications: We recommend first trying a tricyclic antidepressant such as cyclobenzaprine (Flexeril) or amitriptyline (Elavil) in patients who have not yet had an adequate trial of this class of medications. We prefer Flexeril. Although Flexeril is generally marketed as a muscle relaxant, the similarities in chemical structure to the tricyclic antidepressants make it a very useful medication to treat pain and it can also be helpful for treating sleep disturbance. Begin Flexeril at a dose of 5 mg 2-3 hours before bedtime. Taking the medication in this fashion can help decrease morning grogginess. Increase the dose by 5 mg every week as tolerated until a total dose of 20 mg is achieved. Increased fluid intake may decrease the incidence of dry mouth and constipation. Patients should also be warned about potential weight gain. Amitriptyline (Elavil) can be used similarly in doses starting at 10 mg before bedtime, increasing by 10 mg weekly as tolerated up to 50 mg. If maximum tolerated doses of trycyclics are not providing adequate pain relief, we recommend addition (if Flexeril/Elavil is helping) or substitution of a dual reuptake inhibitor such as Cymbalta (duloxetine) or Savella (milnacipran). Such drugs may be the drug of first choice in fibromyalgia patients with prominent depression or fatigue, as they often work well for these co-morbid symptoms (in addition to treating pain). Begin Cymbalta at 30 mg once daily with food. The dose can eventually be increased up to a total of 120 mg per day as tolerated, taken either as a single night time dose or b.i.d. Begin Savella at 25 mg, slowly increasing the dose as tolerated to a maximum of 100mg daily (e.g. 50 mg b.i.d.). Both drugs may initially cause nausea, palpitations, and other noradrenergic side effects, so patients should be instructed that this may happen. These side effects usually resolve over time. Another class of medication with proven efficacy in fibromyalgia are the [id number] ligands, Neurontin (gabapentin) and Lyrica (pregabalin). This class of drug might be the best first choice for a fibromyalgia patient with prominent sleep problems. Lyrica is specifically approved for fibromyalgia, at doses of both 300 and 450mg. For Neurontin, doses typically in the range of 1500 - 3000 mg are necessary to treat pain. Both drugs are better tolerated if most or even all of the dose is taken at bedtime (e.g. 150 mg in the morning and 300 mg at night for Lyrica, or 600 mg in the morning and 1200 mg at night for Neurontin). Some of the other medications that can be helpful in some fibromyalgia patients are higher doses of older SSRIs such as Prozac, Zoloft, or Paxil. Dosages higher than those typically used for treating depression (e.g. 40 - 50 mg of Prozac) are often necessary as it appears that at these higher dosages the important noradrenergic activity of these drugs becomes more prominent. Gamma hydroxybutyrate (particularly in those with significant sleep problems) and dopamine agonists (in those with co-morbid restless leg syndrome) can also be helpful in subsets of fibromyalgia patients. Low dose naltrexone (4.5 - 6.0 mg per day) has been shown to be effective in fibromyalgia is several studies, offering further support for the fact that the body's endogenous opioid system may be hyperactive in this condition, and thus blocking this activity (rather than giving an opioid analgesic) may be a useful therapeutic strategy. Finally, there are several studies suggesting that cannabinoids are effective in fibromyalgia - these should not be used as first or second line therapy but are certainly more effective and safer than opioids in this condition. 2. Non-pharmacologic management: Activity/exercise. A swanson aspect of fibromyalgia management is for the patient to appreciate that when their symptom(s) decrease in response to pharmacologic therapy, they must correspondingly increase their function. For example, when medication(s) diminishes pain, fatigue or other symptoms by 20%, this should lead to a 20% increase in activity/function. Such an increase in function and activity may result in a continuing reduction in complaints of pain, fatigue, etc. and may also diminish associated depressive and anxiety symptoms. We have a website we strongly recommend www.[email or web address].com. The website was developed by our colleagues at the [facility] and earlier version of the website have been shown to be effective in RCTs. We think this website works best if a provider gives specific recommendations about what to do in the website and even give specific homework for patients between visits. 3. Fibromyalgia workshop: We urge patients to attend one of our monthly educational programs designed to provide fibromyalgia patients with state of the art information about this syndrome, and guidance regarding the development of personalized symptom-management strategies. Workshops are conducted at the [facility], located on the upper level of Lobby at the [employer] [facility] in [facility] (at the intersection of [address] and [address], just [address] The workshop is offered free of charge and friends and family members are welcome to attend. The current schedule is available at: [email or web address]. At the workshops, Dr. Casanova presents an overview regarding the science behind fibromyalgia and other chronic multi-symptom illnesses, such as chronic fatigue, and irritable bowel syndrome. He also discusses the influence of cognition and behavior on the illness experience and details several self-management strategies that may be helpful in minimizing fibromyalgia symptoms, such as graduated aerobic exercise and activity pacing. To help patients apply some of the recommended self-management techniques, participants are given a workbook. This workbook contains materials from a university-based cognitive behavioral therapy program and guidelines geared to improving motivation and adherence. The workbook describes a variety of behavioral skills/strategies such as: stress management techniques, effective methods of communication and relaxation, improving function through conscious activity pacing, sleep hygiene and compensatory strategies for concentration/memory difficulties. documented in this encounter [facility] 07-30-2024 History of Present illness Narrative [facility] Inpatient/Observation/Outpatient Rehabilitation Date: 07/30/2024 Patient Name: Ashlee Jalloh [] Inpatient Acute/Observation [x] Outpatient : 1985 [x] Pt no showed for scheduled appointment -Called Pt d/t missed appt with no answer. Left voicemail with clinic number and a reminder for next appt Sunday (08-01) at 1030. Faizan Delgado PTA Date: 07/30/2024 documented in this encounter [facility] 07-25-2024 History of Present illness Narrative [facility] Inpatient/Observation/Outpatient Rehabilitation Date: 07/25/2024 Patient Name: Ashlee Jalloh [] Inpatient Acute/Observation [x] Outpatient : 1985 [x] Pt no showed for scheduled appointment VM left for next scheduled appointment on 07/30/24 @9:00 am. [x] As a reminder, pt was contacted/attempted contact via phone of upcoming appointments. Therapist/Break Out Man will attempt to see this patient, at our earliest opportunity. Venessa Bonilla, AFTERNOON NANNY Date: 07/25/2024 documented in this encounter [facility] 07-18-2024 History of Present illness Narrative [facility] Outpatient Physical Therapy Daily Note Patient: Ashlee Jalloh : 1985 CSN #: [id number] Referring Physician: Wayne Montenegro MD Date: 07/18/2024 Treatment Diagnosis: B hip pain/weakness Onset Date: 02/14/19 PT Insurance Information: [employer] Total # of Visits Approved: 16 Per Physician Order Total # of Visits to Date: 7 No Show: 1 Canceled Appointment: 1 08/08/24 Plan of Care/Recert Due Pre-Treatment Pain: 03/19 Subjective: Patient reports her R hip keeps popping out of place with pain 03/19 prior to session. Pt states the weather has made her knees, hips and back hurt lately. Exercises: Exercise 1: HEP: seated hamstring stretch, supine OTB hip abd Exercise 2: continue with B strength and mobility Exercise 4: Supine: DI with 5 sec hold, DI with november, DI with BKFO x10 ea B LE, SLR x10 Exercise 5: Sci Fit x 8 min level 2.5 Exercise 9: seated B LE ther ex - LAQ and november 08# ankle weight, hip add with ball, hip abd with [place] TB x20 ea Exercise 10: Piriformis and 4 point stretch 3x20 (manually today) Exercise 11: sit to stands x10 Modality: MHP applied to B hips to reduce pain/soreness Assessment Assessment: Patient reports R hip popping out with postitional changes this date. Patient displays slow and guarded movements throughout session due to high levels of pain. Added seated ther ex on PB with good tolerance this date, verbal and tactile cues for core activation. MHP applied to B hips post session to reduce discomfort. Continue per tolerance. Activity Tolerance Activity Tolerance: Patient tolerated treatment well, Patient limited by pain Patient Education Patient Education: HEP Pt verbalized/demonstrated good understanding: [x] Yes [] No, pt required further clarification. Post Treatment Pain: 7/10 - patient reports numbness post session and MHPs Plan Plan Frequency: 2 Plan weeks: 8 Goals (Total # of Visits to Date: 7) Short Term Goals Time Frame for Short Term Goals: 2 weeks Short Term Goal 1: Pt will be inititated with HEP.- MET Short Term Goal 2: Pt will tolerate 30-40 minutes of ther ex to improve function with ADL's. - MET Alf Goals Time Frame for Hollow Tile Partition Erector Goals : 6 weeks [employer] Tile Partition Erector Goal 1: Pt will independant and compliant with HEP to maintain functional gains made at therapy. Alf Goal 2: Pt will report 2/10 or less B hip pain on average to facilitate completion of ADL's. [employer]ile Partition Erector Goal 3: Pt to improve B hip strength to 4/5 with minimal pain for ease with prolonged ambulation and standing at work. Hollow Tile Partition Erector Goal 4: Pt to improve B hip flexion: R 80*, L 90* to 110* or better w/o pain for ease with gait mechanics. Hollow Tile Partition Erector Goal 5: Pt to improve self report impairment from 80% to 20% or less for improved QOL. Minutes Tracking: Time In: 0940 Time Out: 1028 Minutes: 48 Timed Code Treatment Minutes: 48 Minutes Venessa Bonilla, AFTERNOON NANNY Date: 07/18/2024 documented in this encounter [facility] 07-16-2024 History of Present illness Narrative [facility] Inpatient/Observation/Outpatient Rehabilitation Date: 07/16/2024 Patient Name: Ashlee Jalloh [] Inpatient Acute/Observation [x] Outpatient : 1985 [x] Pt cancelled due to: [] No Reason Given [x] Sick/ill Therapist/Break Out Man will attempt to see this patient, at our earliest opportunity. Venessa Bonilla, AFTERNOON NANNY Date: 07/16/2024 documented in this encounter [facility] 07-11-2024 History of Present illness Narrative [facility] Outpatient Physical Therapy Daily Note Patient: Ashlee Jalloh : 1985 CSN #: [id number] Referring Physician: Wayne Montenegro MD Date: 07/11/2024 Diagnosis: M25.551 pain in R hip, S73.191A sprain of right hip Treatment Diagnosis: B hip pain/weakness Onset Date: 02/14/19 PT Insurance Information: A[employer] Total # of Visits Approved: 16 Per Physician Order Total # of Visits to Date: 6 No Show: 1 Canceled Appointment: 0 07/11/24 Plan of Care/Recert Due Pre-Treatment Pain: 9/10 Subjective: Pt reports 9/10 pain, stating she does not know which is worse at the moment. Pt states the pain sometimes it feels that it is the femur that is causing pain. Exercises: Exercise 1: HEP: seated hamstring stretch, supine OTB hip abd Exercise 2: continue with B strength and mobility Exercise 3: sink exercises x 20 each (abd/ext/mini squat, buttkicks, marches, heel raises) Exercise 5: Sci Fit x 8 min level 2.5 Exercise 7: side step at counter 3 laps Exercise 9: seated B LE ther ex - and november 1# ankle weight, hip add with ball, hip abd with [place] TB x20 ea- no weight today Exercise 10: Piriformis and 4 point stretch 3x20 (manually today) Manual: Soft Tissue Mobilizaton: STM to B piriformis to decrease tightness Other: B hip PROM (ER/IR/abd/flexion) per pt pain tolerance. Modality: Modality Flow Sheet: Performed (X) Tx Modality x Hot Pack: x10 min B hips to decrease soreness Assessment Assessment: Pt demos guarded movements throughout tx and reports increased numbness throughout. Added manual piriformis and figure 4 stretches to decrease B hip tightness, fair to good tolerance. Added STM to B piriformis to decrease tightness, mild tightness relief. Discussed pool therapy with pt, PT and pt agreeable to trial pool therapy next visit. HP post tx for soreness. Continue as tolerates. Activity Tolerance Activity Tolerance: Patient tolerated treatment well, Patient limited by pain Patient Education Patient Education: HEP and pool therapy Pt verbalized/demonstrated good understanding: [x] Yes [] No, pt required further clarification. Post Treatment Pain: 9/10 Plan Plan Frequency: 2 Plan weeks: 8 Goals (Total # of Visits to Date: 6) Short Term Goals Time Frame for Short Term Goals: 2 weeks Short Term Goal 1: Pt will be inititated with HEP.- MET Short Term Goal 2: Pt will tolerate 30-40 minutes of ther ex to improve function with ADL's. - MET Alf Goals Time Frame for Alf Goals : 6 weeks Hollow Tile Partition Erector Goal 1: Pt will independant and compliant with HEP to maintain functional gains made at therapy. Alf Goal 2: Pt will report 2/10 or less B hip pain on average to facilitate completion of ADL's. Alf Goal 3: Pt to improve B hip strength to 4/5 with minimal pain for ease with prolonged ambulation and standing at work. Alf Goal 4: Pt to improve B hip flexion: R 80*, L 90* to 110* or better w/o pain for ease with gait mechanics. Hollow Tile Partition Erector Goal 5: Pt to improve self report impairment from 80% to 20% or less for improved QOL. Minutes Tracking: Time In: 0948 Time Out: 1043 Minutes: 55 Diann Tao, AFTERNOON NANNY Date: 07/11/2024 [facility] Outpatient Physical Therapy Date: 07/11/2024 Patient: Ashlee Jalloh : 1985 CSN #: [id number] Referring Physician: Wayne Montenegro MD [] Plan of Care [x] Updated Plan of Care Dates of Service to Include: 07/11/2024 to 08/08/24 Diagnosis: M25.551 pain in R hip, S73.191A sprain of right hip Rehab (Treatment) Diagnosis: B hip pain/weakness Onset Date: 02/14/19 Attendance Total # of Visits to Date: 6 No Show: 1 Canceled Appointment: 0 Assessment Assessment: Pt has attended an initial eval and 5 follow up visits for B hip pain. Pt has MET all STG's and making progress toward LTG's. Pt continues to have high levels of pain in both hips. Strength and exercise progression has remained relatively stagnant. Plan to trial aquatic therapy to build strength in an offloaded environment. Pt would continue to benefit from skilled therapy to restore strength and functional mobility for improved QOL. Goals Short Term Goals Time Frame for Short Term Goals: 2 weeks Short Term Goal 1: Pt will be inititated with HEP.- MET Short Term Goal 2: Pt will tolerate 30-40 minutes of ther ex to improve function with ADL's. - MET Alf Goals Time Frame for Alf Goals : 6 weeks Alf Goal 1: Pt will independant and compliant with HEP to maintain functional gains made at therapy. Alf Goal 2: Pt will report 2/10 or less B hip pain on average to facilitate completion of ADL's. Alf Goal 3: Pt to improve B hip strength to 4/5 with minimal pain for ease with prolonged ambulation and standing at work. Alf Goal 4: Pt to improve B hip flexion: R 80*, L 90* to 110* or better w/o pain for ease with gait mechanics. Alf Goal 5: Pt to improve self report impairment from 80% to 20% or less for improved QOL. Prognosis Therapy Prognosis: Fair Treatment Plan Plan Frequency: 2 Plan weeks: 8 [x] HP/CP [x] Electrical Stim [x] Therapeutic Exercise [x] Gait Training [x] Aquatics [] Ultrasound [x] Patient Education/HEP [x] Manual Therapy [] Traction [x] Neuro-farshad [x] Soft Tissue Mobs [x] Therapeutic Activity [] Iontophoresis [] Orthotic casting/fitting [] Dry Needling [] Blood Flow Restriction [] Vasopneumatic Compression Electronically signed by: MALAIKA HERNÁNDEZ PT, DPT Date: 07/11/2024 Date: 07/11/2024 Physician Signature documented in this encounter [facility] 06-27-2024 History of Present illness Narrative [facility] Outpatient Physical Therapy Daily Note Patient: Ashlee Jalloh : 1985 [facility] #: [id number] Referring Physician: Wayne Montenegro MD Date: 06/27/2024 Treatment Diagnosis: B hip pain/weakness Onset Date: 02/14/19 PT Insurance Information: A[employer]na Total # of Visits Approved: 16 Per Physician Order Total # of Visits to Date: 5 No Show: 0 Canceled Appointment: 0 07/11/24 Plan of Care/Recert Due Pre-Treatment Pain: Subjective: Patient reports B hip pain is same as always, . Patient reports falling at work the other day from her hip giving out and she states she is getting less and less sleep d/t pain. Patient reports physical therapy is making pain worse. Presents to clinic with slow and guarded ambulation. Exercises: Exercise 1: HEP: seated hamstring stretch, supine OTB hip abd Exercise 2: continue with B strength and mobility Exercise 3: sink exercises x 20 each (abd/ext/mini squat, buttkicks, marches, heel raises) Exercise 5: Sci Fit x 8 min level 2.5 Exercise 6: FSU x 12, LSU x 12 L x 4 R no LSU today Exercise 7: side step at counter 3 laps Exercise 8: alt toe taps 15x ea Exercise 9: seated B LE ther ex - november 08# ankle weight, hip add with ball, hip abd with [place] TB x20 ea Assessment Assessment: Patient tolerated added seated B LE ther ex for strengthening well this date with minimal pain post exercises. Pt states at end of session everything feels numb. Continue per tolerance. Activity Tolerance Activity Tolerance: Patient tolerated treatment well, Patient limited by pain Patient Education Patient Education: Educated pt on importance of continued HEP for improving ROM and strengthening. Pt verbalized/demonstrated good understanding: [x] Yes [] No, pt required further clarification. Post Treatment Pain: - pt states everything feels numb Plan Plan Frequency: 2 Plan weeks: 8 Goals (Total # of Visits to Date: 5) Short Term Goals Time Frame for Short Term Goals: 2 weeks Short Term Goal 1: Pt will be inititated with HEP.- MET Short Term Goal 2: Pt will tolerate 30-40 minutes of ther ex to improve function with ADL's. - MET Hollow Tile Partition Erector Goals Time Frame for Alf Goals : 6 weeks Hollow Tile Partition Erector Goal 1: Pt will independant and compliant with HEP to maintain functional gains made at therapy. Alf Goal 2: Pt will report 2/10 or less B hip pain on average to facilitate completion of ADL's. Hollow Tile Partition Erector Goal 3: Pt to improve B hip strength to 4/5 with minimal pain for ease with prolonged ambulation and standing at work. Alf Goal 4: Pt to improve B hip flexion: R 80*, L 90* to 110* or better w/o pain for ease with gait mechanics. Alf Goal 5: Pt to improve self report impairment from 80% to 20% or less for improved QOL. Minutes Tracking: Time In: 935 Time Out: 1015 Minutes: 39 Timed Code Treatment Minutes: 38 Minutes Venessa Bonilla, ANDREIA Date: 06/27/2024 documented in this encounter [facility] 06-20-2024 History of Present illness Narrative [facility] Outpatient Physical Therapy Daily Note Patient: Ashlee Jalloh : 1985 CSN #: [id number] Referring Physician: Wayne Montenegro MD Date: 06/20/2024 Treatment Diagnosis: B hip pain/weakness Onset Date: 02/14/19 PT Insurance Information: Aetna Total # of Visits Approved: 16 Per Physician Order Total # of Visits to Date: 3 No Show: 0 Canceled Appointment: 0 07/11/24 Plan of Care/Recert Due Pre-Treatment Pain: 6/10 Subjective: Pt presents to therapy with reports of 6/10 hip pain this date. Exercises: Exercise 3: sink exercises x 10 each (abd/ext/mini squat, buttkicks, marches, heel raises) Exercise 5: Sci Fit x 8 min level 1 Exercise 6: FSU x 12, LSU x 12 L x 4 R Manual: Other: B hip PROM (ER/IR/abd/flexion) per pt pain tolerance. Assessment Assessment: Pt with continued moderate pain levels this date. Able to complete sink exercises with good tolerance this date. Intro to FSU/LSU, pt with increaed pain on R knee with LSU and discontinued. Pt given min verbal and visual cueing for proper for with step ups. PROM into hip flexion to ~90* before symptoms, supine abduction with light traction to 45* per pt tolerance. Will continue to progress. Activity Tolerance Activity Tolerance: Patient limited by pain, Patient tolerated treatment well Patient Education Patient Education: Educated pt on importance of continued HEP for improving ROM and strengthening. Pt verbalized/demonstrated good understanding: [x] Yes [] No, pt required further clarification. Post Treatment Pain: 02/17 Plan Plan Frequency: 2 Plan weeks: 8 Goals (Total # of Visits to Date: 3) Short Term Goals Time Frame for Short Term Goals: 2 weeks Short Term Goal 1: Pt will be inititated with HEP.- MET Short Term Goal 2: Pt will tolerate 30-40 minutes of ther ex to improve function with ADL's. - MET Alf Goals Time Frame for Hollow Tile Partition Erector Goals : 6 weeks Hollow Tile Partition Erector Goal 1: Pt will independant and compliant with HEP to maintain functional gains made at therapy. Hollow Tile Partition Erector Goal 2: Pt will report 2/10 or less B hip pain on average to facilitate completion of ADL's. Alf Goal 3: Pt to improve B hip strength to 4/5 with minimal pain for ease with prolonged ambulation and standing at work. Alf Goal 4: Pt to improve B hip flexion: R 80*, L 90* to 110* or better w/o pain for ease with gait mechanics. Hollow Tile Partition Erector Goal 5: Pt to improve self report impairment from 80% to 20% or less for improved QOL. Minutes Tracking: Time In: 1030 Time Out: 1114 Minutes: 44 Timed Code Treatment Minutes: 42 Minutes MALAIKA HERNÁNDEZ PT, DPT Date: 06/20/2024 documented in this encounter [facility] 06-13-2024 History of Present illness Narrative [facility] Outpatient Physical Therapy Evaluation Date: 06/13/2024 Patient: Ashlee Jalloh : 1985 CSN #: [id number] Referring Physician: Wayne Montenegro MD Medical Diagnosis: M25.551 pain in R hip, S73.191A sprain of right hip Treatment Diagnosis: B hip pain/weakness Onset Date: 02/14/19 PT Insurance Information: Aetna Total # of Visits Approved: 16 Total # of Visits to Date: 1 No Show: 0 Canceled Appointment: 0 [x] This administrative underwriter acknowledges review of patient history form Subjective Subjective: Pt reports having B hip pain. Was supposed to have surgery on the R hip but was cancled d/t insurance. Pt reports L hip is more painful than R but doesnt know if it is becasue she has been walking differently on it. Pt reports 10/10 pain at worst and 5/10 at best. Reports pain is worse when there is popping and grinding. Additional Pertinent Hx: panic attacks, hearing problems, arthritis, anxiety, stomach problem, depression: L4/5 fusion (2021) B SI joint fusion (2022) Observations: Pt with increased pain and decreased body mechanics with STS, loads majority of weight onto L LE and (+) gowers sign when standing. Ambulation/Gait (if applicable): Antalgic gait Objective AROM AROM LLE (degrees) L Hip Flexion (0-125): 90* (pain) Right AROM AROM RLE (degrees) R Hip Flexion (0-125): 80* (pain) Strength Strength LLE L Hip Flexion: 3+/5 (pain) L Hip ABduction: 4-/5 L Hip ADduction: 4/5 L Knee Flexion: 4-/5 L Knee Extension: 4+/5 Right Strength Strength RLE R Hip Flexion: 3+/5 (pain) R Hip ABduction: 4-/5 R Hip ADduction: 4/5 R Knee Flexion: 4-/5 R Knee Extension: 4+/5 Exercises: Exercise 1: HEP: seated hamstring stretch, supine OTB hip abd Exercise 2: continue with B strength and mobility Functional Outcome Measures Pt self report 80% impairment. Assessment Assessment: Pt is a 39 yo. female who presents to therapy with B hip pain. Pt has confirmed R superior labral tear and was supposed to have a FELIZ but was cancelled d/t insurance. Upon exam pt presents very guarded with high levels of pain. R hip flexion PROM to 80* before increased guarding from pt and 90* on L before guarding. Pt demos gross defecits in B hip strength primarily in flexion and abd being 3+/4- with increased pain. Pt with increased pain and decreased body mechanics with STS, loads majority of weight onto L LE and (+) gowers sign when standing. Pt would benefit from skilled therapy in order to address these deficits and return to PLOF. Therapy Prognosis: Fair Decision Making: Medium Complexity Patient Education Patient Education: Pt educatated on PT POC, HEP Pt verbalized/demonstrated good understanding: [X] Yes [] No, pt required further clarification. Goals Short Term Goals Time Frame for Short Term Goals: 2 weeks Short Term Goal 1: Pt will be inititated with HEP. Short Term Goal 2: Pt will tolerate 30-40 minutes of ther ex to improve function with ADL's. Alf Goals Time Frame for Alf Goals : 6 weeks Hollow Tile Partition Erector Goal 1: Pt will independant and compliant with HEP to maintain functional gains made at therapy. Hollow Tile Partition Erector Goal 2: Pt will report 2/10 or less B hip pain on average to facilitate completion of ADL's. Alf Goal 3: Pt to improve B hip strength to 4/5 with minimal pain for ease with prolonged ambulation and standing at work. Hollow Tile Partition Erector Goal 4: Pt to improve B hip flexion: R 80*, L 90* to 110* or better w/o pain for ease with gait mechanics. Alf Goal 5: Pt to improve self report impairment from 80% to 20% or less for improved QOL. Minutes Tracking: Time In: 0810 Time Out: 0848 Minutes: 38 Timed Code Treatment Minutes: 36 Minutes MALAIKA HERNÁNDEZ PT, DPT 06/13/2024 [facility] Outpatient Physical Therapy Date: 06/13/2024 Patient: Ashlee Jalloh : 1985 CSN #: [id number] Referring Physician: Wayne Montenegro MD [x] Plan of Care [] Updated Plan of Care Dates of Service to Include: 06/13/2024 to 07/11/24 Diagnosis: M25.551 pain in R hip, S73.191A sprain of right hip Rehab (Treatment) Diagnosis: B hip pain/weakness Onset Date: 02/14/19 Attendance Total # of Visits to Date: 1 No Show: 0 Canceled Appointment: 0 Assessment Assessment: Pt is a 39 yo. female who presents to therapy with B hip pain. Pt has confirmed R superior labral tear and was supposed to have a FELIZ but was cancelled d/t insurance. Upon exam pt presents very guarded with high levels of pain. R hip flexion PROM to 80* before increased guarding from pt and 90* on L before guarding. Pt demos gross defecits in B hip strength primarily in flexion and abd being 3+/4- with increased pain. Pt with increased pain and decreased body mechanics with STS, loads majority of weight onto L LE and (+) gowers sign when standing. Pt would benefit from skilled therapy in order to address these deficits and return to PLOF. Goals Short Term Goals Time Frame for Short Term Goals: 2 weeks Short Term Goal 1: Pt will be inititated with HEP. Short Term Goal 2: Pt will tolerate 30-40 minutes of ther ex to improve function with ADL's. Alf Goals Time Frame for Hollow Tile Partition Erector Goals : 6 weeks Hollow Tile Partition Erector Goal 1: Pt will independant and compliant with HEP to maintain functional gains made at therapy. Alf Goal 2: Pt will report 2/10 or less B hip pain on average to facilitate completion of ADL's. Alf Goal 3: Pt to improve B hip strength to 4/5 with minimal pain for ease with prolonged ambulation and standing at work. Hollow Tile Partition Erector Goal 4: Pt to improve B hip flexion: R 80*, L 90* to 110* or better w/o pain for ease with gait mechanics. Alf Goal 5: Pt to improve self report impairment from 80% to 20% or less for improved QOL. Prognosis Therapy Prognosis: Fair Treatment Plan Plan Frequency: 2 Plan weeks: 8 [x] HP/CP [x] Electrical Stim [x] Therapeutic Exercise [x] Gait Training [] Aquatics [] Ultrasound [x] Patient Education/HEP [x] Manual Therapy [] Traction [x] Neuro-farshad [x] Soft Tissue Mobs [x] Therapeutic Activity [] Iontophoresis [] Orthotic casting/fitting [] Dry Needling [] Blood Flow Restriction [] Vasopneumatic Compression Electronically signed by: MALAIKA HERNÁNDEZ PT, DPT Date: 06/13/2024 Date: 06/13/2024 Physician Signature documented in this encounter [facility] 06-09-2024 History of Present illness Narrative Reason for Appointment: Patient ID: Ashlee Jalloh is a 39 y.o. female who presents for Discuss hormones Patient presents today for Consult appointment. MEDICATIONS Current Outpatient Medications Medication Instructions esomeprazole (NexIUM) [address] capsule 1 capsule, Every 24 hours Multiple Vitamins-Minerals (One-A-Day Womens) tablet 1 tablet, Oral, Daily naproxen (NAPROSYN) 500 mg, Oral, Every 12 hours Slynd 4 mg, Oral, Daily Ubrelvy 100 mg, Oral ALLERGIES Allergies Allergen Reactions Silicone Hives Nalbuphine Dizziness, GI intolerance, Nausea And Vomiting, Nausea Only, Palpitations and Rash Pt vomited after being given Nubain in the past Wound Dressing Adhesive Rash Cloth tape, tears skin and welts PROBLEMS Active Ambulatory Problems Diagnosis Date Noted Abnormal cervical Papanicolaou smear 03/23/2023 Complex ovarian cyst 03/23/2023 Depression (CMS/HCC) 03/23/2023 Kidney stone 03/23/2023 Low grade squamous intraepithelial lesion (LGSIL) on cervicovaginal cytologic smear 03/23/2023 Obesity 03/23/2023 Pruritus of vagina 03/23/2023 Examination for, follow-up 03/23/2023 Pelvic pain in female 06/19/2023 Postoperative visit 06/19/2023 Other constipation 02/14/2024 Well woman exam with routine gynecological exam 02/14/2024 Resolved Ambulatory Problems Diagnosis Date Noted No Resolved Ambulatory Problems Past Medical History: Diagnosis Date Encounter for Papanicolaou smear of vagina following prior abnormal smear Low grade squamous intraepithelial lesion (LGSIL) on cervical Pap smear Obesity (BMI 30.0-34.9) Vaginal itching Well woman exam HISTORY PAST MEDICAL HISTORY SOCIAL HISTORY Past Medical History: Diagnosis Date Complex ovarian cyst Depression (CMS/HCC) Encounter for Papanicolaou smear of vagina following prior abnormal smear Kidney stone Low grade squamous intraepithelial lesion (LGSIL) on cervical Pap smear Obesity (BMI 30.0-34.9) Vaginal itching Well woman exam Social History Tobacco Use Smoking status: Never Smokeless tobacco: Never Substance Use Topics Alcohol use: Never Drug use: Never FAMILY HISTORY Family History Problem Relation Name Age of Onset Breast cancer Mother Michelle Arthritis Father Hyperlipidemia Maternal Grandmother ?? Hypertension Maternal Grandmother ?? Hyperlipidemia Maternal Grandfather ?? Hypertension Maternal Grandfather ?? Hyperlipidemia Paternal Grandmother ?? Hypertension Paternal Grandmother ?? Arthritis Paternal Grandfather ?? Hypertension Paternal Grandfather ?? Hyperlipidemia Paternal Grandfather ?? SURGICAL HISTORY Past Surgical History: Procedure Laterality Date BACK SURGERY x2 SECTION, LOW TRANSVERSE x 2- 01/27/2009 , 05/24/2017 HYSTERECTOMY 03/25/2021 Abdominal Hysterectomy LAPAROSCOPY DIAGNOSTIC / BIOPSY / ASPIRATION / LYSIS 06/08/2023 MR ANGIOGRAM HEAD WO IV CONTRAST 07/29/2020 MR ANGIOGRAM HEAD WO IV CONTRAST 07/29/2020 TUBAL LIGATION REVIEW OF SYSTEMS Review of Systems: Review of Systems All other systems reviewed and are negative. OBJECTIVE Objective: Physical Exam Constitutional: Appearance: Normal appearance. She is well-developed. Cardiovascular: Rate and Rhythm: Normal rate and regular rhythm. Pulmonary: Effort: Pulmonary effort is normal. Breath sounds: Normal breath sounds. Abdominal: General: Bowel sounds are normal. There is no distension. Palpations: Abdomen is soft. Tenderness: There is no abdominal tenderness. There is no guarding or rebound. Musculoskeletal: General: No swelling. Normal range of motion. Right lower leg: No edema. Left lower leg: No edema. Neurological: Mental Status: She is alert and oriented to person, place, and time. Skin: General: Skin is warm and dry. Psychiatric: Mood and Affect: Mood normal. Behavior: Behavior normal. Vitals and nursing note reviewed. Exam conducted with a lead business analyst present. Vitals: Estimated body mass index is 28.15 kg/m as calculated from the following: Height as of 02/14/24: 5' 4 . Weight as of 02/14/24: 164 lb. BP: Patient's last menstrual period was 02/08/2021. ASSESSMENT & PLAN Patient voiced that Estrogen has helped some, but not much. Discussed having [facility] drawn and fill out packet. Discussed Estrogen/testosterone cream. Patient would like to have labs drawn and have packet sent to [facility] once filled out. Patient to return to clinic as needed and for annual appointment. Patient aware that everything will be sent when all labs are back. Documented by Rebeca Holloway LPN on behalf of: Tommie Mccann DO documented in this encounter [facility] 05-15-2024 Miscellaneous Notes [facility] called and stated that the patient no longer goes to them. Wanted to give an update because they received a fax of office notes that were sent over for the patient. documented in this encounter [facility] 05-15-2024 Telephone encounter Note [facility] called and stated that the patient no longer goes to them. Wanted to give an update because they received a fax of office notes that were sent over for the patient. [facility] 05-14-2024 History of Present illness Narrative Images from the original note were not included. ADULT RHEUMATOLOGY CLINIC NOTE [id number] [phone] Patient Name: Ashlee Jalloh Subjective Reason for Rheumatology Consultation: nasal septal perforation and osteoarthritis History of Present Illness: Ashlee Jalloh is a 39 y.o. female who presents as a referral from her ENT provider (Dr. Carter) for concern of recent finding of nasal septal perforation as well as osteoarthritis. The patient explains that she has had a longstanding history of ear infections as a pediatric patient. 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 Most recently the patient noted that she was having some nosebleeds and nasal crusting and was evaluated by her ENT provider was found to have nasal septal perforation. Patient also has a longstanding history of arthritis symptoms in multiple different locations. She did see a previous collections associate at [facility] in September of 2023. At that time there was a concern for possible ankylosing spondylitis and she had a comprehensive evaluation in their office where this condition was eventually ruled out. It seems that her previous collections associate did review her spine imaging in detail and noted that there were not definitive signs of ankylosing spondylitis. Additionally her serologic testing showed that she had a negative LARISSA screen as well as a negative RF, CCP, and HLA B27. The patient has followed with multiple spine specialists and orthopedic providers in the past. She notes that she has had multiple lower back surgeries for the L4 through L5 areas. She also notes that she underwent an SI joint fusion procedure in the recent past. The patient notes that she has had a longstanding history of lower back discomfort as well as SI joint discomfort. More recently she has also been experiencing hip pain particularly in the right hip. She did pursue steroid injections which were largely unhelpful to her ongoing joint symptoms. One of her current surgical providers is planning to do a hip surgery for her later this month. Additional History & ROS: -skin issues --- eczema behind the ears, left elbow, itching in the ears and peeling skin, dandruff, better in the summer months --- has not seen Derm -gets sun poisoning very easily --- can get a blistering rash -canker sores and occasional cold sores in the mouth -no history of inflammatory eye conditions -no thyroid issues -no strokes or seizures -no blood in urine -stress ulcers in stomach --- every now and then she sees blood in stool, never had a colonoscopy in the past --- notes that diarrhea and stool urgency has been a problem for her since she was a teenager -has had kidney stones but no history of CKD -no history of CVD, we previously told that she has a heart murmur -no respiratory issues or hemoptysis -does have hearing issues but attributes this to frequent ear infections in childhood Family Hx: -no relevant family hx -patient was adopted so has limited knowledge of her biological family Review of Systems: CONSTITUTIONAL: Admits: [] Weight Loss [] Fever [] Frequent Night Sweats OPHTHALMOLOGIC: Admits: [] Glaucoma [] History or Current Inflammatory Eye Disease [] Cataracts ENT: Admits: [] Oral/Nasal Ulcers [x] epistaxis [] Recurrent Sinusitis [] Dry Eyes [] Dry mouth CARDIOVASCULAR: Admits: [] Chest pain [] Pericarditis/Pleuritis [] Palpitations [] Edema RESPIRATORY: Admits: [] hemoptysis [] Dyspnea on Exertion [] Cough [] Wheezing GASTROINTESTINAL: Admits: [] Bloody Stool [] Diarrhea [] Vomitting GENITOURINARY: Admits: [] Blood in urine [] Genital Ulcers [] Burning/pain with urination MUSCULOSKELETAL: Admits: [] Muscle Pain [x] Joint Pain INTEGUMENTARY: Admits: [] Skin changes [] Sclerodactyly [] Raynauds [] Photosensitivity [] Alopecia NEUROLOGIC: Admits: [] Recurrent Headaches [] Limb Weakness [] Numbness/Tingling PSYCHIATRIC: Admits: [] Insomnia [] Depression [] Anxiety ENDOCRINE: Admits: [] Thyroid abnormalities HEMATOLOGY/LYMPH: Admits: [] Notable Swollen Lymph Nodes [] History of Cytopenias [] Bruising tendency [] History of DVT/PE All non checked boxes, patient denies. All other 10 point ROS reviewed and negative. Current Outpatient Medications Medication Sig Dispense Refill desogestrel-ethinyl estradiol (APRI ORAL) Take by mouth. dexAMETHasone (DECADRON) 0.1 % ophthalmic solution Administer 2 drops into the left eye in the morning and at bedtime. Two drops to the left ear twice a day for 4 days. (Patient not taking: Reported on 01/09/2024) 5 mL 0 diazePAM (VALIUM) 5 mg tablet Take 1 tablet (5 mg total) by mouth every 12 (twelve) hours as needed for anxiety for up to 5 doses. (Patient not taking: Reported on 12/11/2023) 5 tablet 0 esomeprazole (NexIUM) 20 mg capsule Take 1 capsule (20 mg total) by mouth every morning before breakfast. (Patient not taking: Reported on 03/06/2024) esomeprazole (NexIUM) 20 mg capsule Take 1 capsule (20 mg total) by mouth every morning before breakfast. estradioL (ESTRACE) 1 mg tablet Take 1 tablet (1 mg total) by mouth in the morning. (Patient not taking: Reported on 03/06/2024) fluticasone propionate (FLONASE) 50 mcg/actuation nasal spray Administer 2 sprays into each nostril in the morning. (Patient not taking: Reported on 03/06/2024) 16 g 5 insulin NPH (HumuLIN N,NovoLIN N) 100 unit/mL injection Inject 5 Units under the skin 2 (two) times a day before meals. (Patient not taking: Reported on 12/11/2023) insulin regular (HumuLIN R,NovoLIN R) 100 unit/mL injection Inject 5 Units under the skin 2 (two) times a day before meals. (Patient not taking: Reported on 12/11/2023) methylPREDNISolone (MEDROL, DIOGENES,) 4 mg tablet follow package directions (Patient not taking: Reported on 03/06/2024) 21 tablet 0 naproxen (NAPROSYN) 250 mg tablet Take 1 tablet (250 mg total) by mouth 2 (two) times a day as needed for pain. phentermine 37.5 MG capsule Take 1 capsule (37.5 mg total) by mouth once daily. (Patient not taking: Reported on 03/06/2024) VIT 91/IRON/FOLIC/DHA ( + DHA ORAL) Take 1 tablet by mouth daily. (Patient not taking: Reported on 03/06/2024) No current facility-administered medications for this visit. reviewed. Patient Active Problem List Diagnosis Threatened labor reviewed. Past Surgical History: Procedure Laterality Date SECTION SECTION 2017 LAPAROSCOPY 05/2023 LUMBAR DISCECTOMY 2020 LUMBAR FUSION 2021 PARTIAL HYSTERECTOMY 11/2020 reviewed. Social History Tobacco Use Smoking status: Never Passive exposure: Never Smokeless tobacco: Never Vaping Use Vaping status: Never Used Substance Use Topics Alcohol use: No Drug use: No reviewed. Past Medical History: Diagnosis Date Depression Gestational diabetes History of back surgery History of hysterectomy Kidney stone Migraine Ulcer Urinary tract infection reviewed. Social History Social History Narrative Merged History Encounter reviewed Family History Problem Relation Age of Onset Breast cancer Mother reviewed. Allergies Allergen Reactions Nubain [Nalbuphine] Dizziness and Vomiting Nubain [Nalbuphine] Nausea and Tachycardia Silicone Hives Adhesive Rash Cloth tape, tears skin and welts reviewed. The following portions of the patient's history were reviewed and updated as appropriate: allergies, current medications, past family history, past medical history, past social history, past surgical history and problem list. The following portions of the patient's history were reviewed and updated as appropriate: allergies, current medications, past family history, past medical history, past social history, past surgical history and problem list. Objective Physical Exam: BP 104/68 Resp 16 Ht 162.6 cm (5' 4 ) Wt 76.7 kg (169 lb) BMI 29.01 kg/m : reviewed GEN: AOx3, NAD EYES: Clear lenses, sclerae white, conjunctiva pink. ENT: External ears normal. Nares and nasal mucosa normal. Normal oral aperture. No oropharyngeal lesions. NECK: supple, no LAD. LUNGS: CTAB. HEART: Regular rhythm, normal S1/S2, no M/R/G. ABD: Soft, non-distended, non-tender. VASC: Ext warm, peripheral pulses 2+, no edema. MSK: Evaluated the large and small joints of the upper and lower extremities including the bilateral shoulders, elbows, wrists, hands, knees, ankles, and feet. Unless otherwise stated below, joints were without deformity, impairment in ROM, warmth, or tenderness to palpation. Pertinent MSK Findings: No evidence of synovitis in the small joints of the bilateral hands or wrists. There was also no evidence of bilateral knee effusion at this time. There was no evidence of bilateral ankle effusion or synovitis in the bilateral feet. The patient has a limited range of motion when it comes to lateral bending and forward flexion of the spine Due to pain. She also has discomfort to palpation of the bilateral sacroiliac joints and lumbar spine. INTEGUMENT: Skin, nails, and hair normal unless otherwise stated below. NEURO: Alert. Sensation intact to soft touch. Normal muscle bulk and strength in trunk and limbs. DOMINIQUE-28 (If Applicable) There is currently no information documented on the homunculus. Go to the Rheumatology activity and complete the homunculus joint exam. DOMINIQUE-28 (CRP): -- DOMINIQUE-28 (ESR): -- Tender (DOMINIQUE-28): -- Swollen (DOMINIQUE-28): -- Labs and Imaging: reviewed and discussed with the patient during the visit. General Labs: Lab Results Component Value Date WBC 20.8 (H) 04/28/2017 HGB 11.8 04/28/2017 HCT 35.1 04/28/2017 MCV 89 04/28/2017 PLT 259 04/28/2017 Lab Results Component Value Date CREATININE 0.65 04/28/2017 BUN 11 04/28/2017 K 3.8 04/28/2017 CL 105 04/28/2017 CO2 18 (L) 04/28/2017 Lab Results Component Value Date ALT 7 04/28/2017 AST 10 04/28/2017 ALKPHOS 90 04/28/2017 Inflammatory Markers No results found for: CRP RA-related Auto-Ab's No results found for: RF LARISSA & related Labs No results found for: LARISSA , ANTIRNP , ANTISMRNP , C3 , C4 Scleroderma-related Auto-Ab's No results found for: SCL70 , JO1 Myositis-related Auto-Ab's No results found for: JO1 APLS-related Auto-Ab's No results found for: DRVVT Vasculitis-related Auto-Ab's No results found for: MYELOPEROXID Imaging / Special Studies Reviewed in EMR. Assessment / Recommendations 1. Nasal septum perforation 2. Osteoarthritis, unspecified osteoarthritis type, unspecified site 3. Sacroiliac pain Overall Impression: Ashlee Jalloh is a 39 y.o. female patient with a recent history of nasal septal perforation who was referred to our office by her ENT provider for concern of this cartilage finding as well as ongoing arthritis. At this time based on the patient's history, ros, physical exam, and prior workup I have a low degree of suspicion for small-vessel vasculitis as the etiology of her present nasal septal perforation. However to more comprehensively rule out a systemic vasculitis we will pursue additional serologic testing. In terms of the patient's ongoing arthritic symptoms it is concerning that she has had lumbar spine abnormalities and sacroiliac pain chronically at a relatively young age. It seems from review of her outside charting in her previous imaging there was not definitive evidence of an inflammatory arthritis. However there was not a dedicated sacroiliac imaging that was done in the recent past. As such today I will pursue plain film imaging of the sacroiliac joints to better characterize her ongoing SI joint pain. However, it is certainly possible that all of her arthritis symptoms are based in osteoarthritis. Recommendations: Labs, Imaging, Special Studies: Orders Placed This Encounter Procedures X-ray sacroiliac joints minimum 3 views Standing Status: Future Number of Occurrences: 1 Standing Expiration Date: 05/14/2025 Order Specific Question: Reason for Exam: Answer: Evaluate for sacroiliitis, evaluate for inflammatory arthritis. PATIENT HAS CHRONIC LOW BACK PAIN Order Specific Question: Release to patient via MyChart? Answer: Immediate [1] Cytoplasmic Neutrophilic Ab, S Standing Status: Future Number of Occurrences: 1 Standing Expiration Date: 05/14/2025 Order Specific Question: Release to patient via MyChart? Answer: Immediate [1] Myeloperoxidase AB Standing Status: Future Number of Occurrences: 1 Standing Expiration Date: 05/14/2025 Order Specific Question: Release to patient via MyChart? Answer: Immediate [1] Proteinase 3 AB PR3 Standing Status: Future Number of Occurrences: 1 Standing Expiration Date: 05/14/2025 Order Specific Question: Release to patient via MyChart? Answer: Immediate [1] Erythrocyte Sedimentation Rate (ESR) Standing Status: Future Number of Occurrences: 1 Standing Expiration Date: 05/14/2025 Order Specific Question: Release to patient via MyChart? Answer: Immediate [1] C-reactive protein Standing Status: Future Number of Occurrences: 1 Standing Expiration Date: 05/14/2025 Order Specific Question: Release to patient via MyChart? Answer: Immediate [1] Treatment Plan: -No specific rheumatological medications at this time Consults/Referrals: -No new referrals at this time -Recommended that she reach out to her PCP and pursue a GI referral to get more definitive evaluation for her frequent diarrhea and occasional blood in stools Health Maintenance: -The patient should continue to follow with their PCP for age and risk factor appropriate cancer screening and immunizations. Follow-up: -12 weeks Shirin Morales MD, MPH [facility] [address] [place] [address] Total [id number] time was 45 minutes with more than 50% of the visit spent counseling and discussing diagnostic or treatment recommendations, prognosis, risks and benefits of management options, instructions, compliance or risk-factor reduction. This note was created with the assistance of a speech recognition program. While intending to generate a timely document that accurately reflects the content of the visit, no guarantee can be provided that every grammatical or spelling mistake has been or will be identified or corrected. Thank you for your understanding. documented in this encounter [facility] 03-06-2024 History of Present illness Narrative [facility] - ENT [address] [place] [address], [address] [facility] [id number] SUBJECTIVE: Patient ID: Ashlee Jalloh is a 39 y.o. female presents today for Chief Complaint Patient presents with hole in nasal septum HPI: The patient is a 39-year-old female last seen in the office on January 09, 2024. She presented with a left otitis externa. She also had sinus and nasal issues. Since her last visit she has developed a septal perforation. She has some dryness and crusting in her nose. She has never had any previous nasal surgery. She does not use cocaine. She has has seen a collections associate in the past for her osteoarthritis. She currently is not seeing a collections associate. She is here for evaluation. HISTORY: Past Medical History: Diagnosis Date Depression Gestational diabetes History of back surgery History of hysterectomy Kidney stone Migraine Ulcer Urinary tract infection Past Surgical History: Procedure Laterality Date SECTION SECTION 2017 LAPAROSCOPY 05/2023 LUMBAR DISCECTOMY 2020 LUMBAR FUSION 2021 PARTIAL HYSTERECTOMY 11/2020 Family History Problem Relation Age of Onset Breast cancer Mother Social History Socioeconomic History Marital status: Single Spouse name: Not on file Number of children: Not on file Years of education: Not on file Highest education level: Not on file Occupational History Not on file Tobacco Use Smoking status: Never Passive exposure: Never Smokeless tobacco: Never Vaping Use Vaping status: Never Used Substance and Sexual Activity Alcohol use: No Drug use: No Sexual activity: Yes Partners: Male Other Topics Concern Not on file Social History Narrative Merged History Encounter Social Determinants of Health Financial Resource Strain: Patient Declined (02/22/2023) Received from [facility] Overall Financial Resource Strain (CARDIA) Difficulty of Paying Living Expenses: Patient declined Food Insecurity: No Food Insecurity (08/24/2023) Received from [facility] Hunger Vital Sign Worried About Running Out of Food in the Last Year: Never true Ran Out of Food in the Last Year: Never true Transportation Needs: No Transportation Needs (08/24/2023) [facility] PRAPARE - Transportation Lack of Transportation (Medical): No Lack of Transportation (Non-Medical): No Physical Activity: Not on file Stress: Not on file Social Connections: Not on file Interpersonal Safety: Not on file Housing Instability: Unknown (08/24/2023) Received from [facility] Housing Stability Vital Sign Unable to Pay for Housing in the Last Year: No Number of Places Lived in the Last Year: Not on file In the last 12 months, was there a time when you did not have a steady place to sleep or slept in a half-way (including now)?: No Allergies Allergen Reactions Nubain [Nalbuphine] Dizziness and Vomiting Nubain [Nalbuphine] Nausea and Tachycardia Silicone Hives Adhesive Rash Cloth tape, tears skin and welts Current Outpatient Medications Medication Sig Dispense Refill desogestrel-ethinyl estradiol (APRI ORAL) Take by mouth. esomeprazole (NexIUM) 20 mg capsule Take 1 capsule (20 mg total) by mouth every morning before breakfast. naproxen (NAPROSYN) 250 mg tablet Take 1 tablet (250 mg total) by mouth 2 (two) times a day as needed for pain. dexAMETHasone (DECADRON) 0.1 % ophthalmic solution Administer 2 drops into the left eye in the morning and at bedtime. Two drops to the left ear twice a day for 4 days. (Patient not taking: Reported on 01/09/2024) 5 mL 0 diazePAM (VALIUM) 5 mg tablet Take 1 tablet (5 mg total) by mouth every 12 (twelve) hours as needed for anxiety for up to 5 doses. (Patient not taking: Reported on 12/11/2023) 5 tablet 0 esomeprazole (NexIUM) 20 mg capsule Take 1 capsule (20 mg total) by mouth every morning before breakfast. (Patient not taking: Reported on 03/06/2024) estradioL (ESTRACE) 1 mg tablet Take 1 tablet (1 mg total) by mouth in the morning. (Patient not taking: Reported on 03/06/2024) fluticasone propionate (FLONASE) 50 mcg/actuation nasal spray Administer 2 sprays into each nostril in the morning. (Patient not taking: Reported on 03/06/2024) 16 g 5 insulin NPH (HumuLIN N,NovoLIN N) 100 unit/mL injection Inject 5 Units under the skin 2 (two) times a day before meals. (Patient not taking: Reported on 12/11/2023) insulin regular (HumuLIN R,NovoLIN R) 100 unit/mL injection Inject 5 Units under the skin 2 (two) times a day before meals. (Patient not taking: Reported on 12/11/2023) methylPREDNISolone (MEDROL, DIOGENES,) 4 mg tablet follow package directions (Patient not taking: Reported on 03/06/2024) 21 tablet 0 phentermine 37.5 MG capsule Take 1 capsule (37.5 mg total) by mouth once daily. (Patient not taking: Reported on 03/06/2024) VIT 91/IRON/FOLIC/DHA ( + DHA ORAL) Take 1 tablet by mouth daily. (Patient not taking: Reported on 03/06/2024) No current facility-administered medications for this visit. REVIEW OF SYSTEMS: Review of Systems Constitutional: Negative for chills and fever. HENT: Positive for congestion, nosebleeds (bilateral), postnasal drip, rhinorrhea and sneezing. Negative for sore throat. Respiratory: Negative for cough and shortness of breath. Allergic/Immunologic: Negative for environmental allergies. Data Reviewed: CT facial bones with and without contrast Impression 1. Mild bilateral maxillary floor mucosal thickening. 2. Leftward nasal septal deviation, spur. TRANSCRIBED BY: ELECTRONICALLY SIGNED BY: Claudy Aviles MD Narrative PROCEDURE: In the coronal projection, without intravenous contrast, 3 mm contiguous [...] of mastoid air cells and paranasal sinuses. PHYSICAL EXAMINATION: Temp 36.7 C (98.1 F) Ht 162.6 cm (5' 4 ) Wt 77.1 kg (170 lb) BMI 29.18 kg/m Constitutional: General Appearance: Healthy, alert, cooperative, [...] External Auditory Canal: Normal bilateral Tympanic Membranes: Normal bilateral Middle Ear: Normal bilateral Hearing: Normal bilateral Nose: External Nose: Normal Septum: Midline septum-anterior septal perforation Mucosa/Turbinates: Normal inferior turbinate and Normal mucosa Oral Cavity: Normal lips, Normal teeth, Normal gums, Normal floor of mouth, Normal oral mucosa, and Normal anterior tongue Oropharynx: Normal mucosa, Normal soft palate, Normal hard palate, Normal uvula, Tonsil hypertrophy right: 1+, Tonsil hypertrophy left: 1+, and Normal Vallecula Respiratory: No stridor, Normal respiratory effort and No use of accessory muscles Cardiovascular: Regular rate and Regular rhythm Neurologic: Patient is alert and oriented x3 with normal affect and grossly normal cranial nerves ASSESSMENT/PLAN: Ashlee was seen today for hole in nasal septum. Diagnoses and all orders for this visit: [facility] - [place], [place]; Future Osteoarthritis, unspecified osteoarthritis type, unspecified site - [facility] - [place], [place]; Future Plan: Patient with nasal septum perforation, previously seen in this office for chronic pansinusitis. She does endorse a history of osteoarthritis. Previous evaluation by Dr. Haley Gan, Rheumatology, was negative for Ankylosing Spondylitis. Demonstrated septal anatomy with diagrams in office. Recommended patient initiate Alkalol irrigations and provided her with printed information on how to complete these. She can do this 3 times a day. She was also advised to avoid touching the area. A referral to Dr. Holden, [facility], was placed in office today for evaluation of her previous history of osteoarthritis and due to her new finding of a septal perforation. I am concerned about the possibility of Swati's granulomatosis. Scribe Statement: Scribed for and in the presence of JARRED CARTER MD by Lissy Calle (scribe). Lissy Calle 03/06/2024 2:06 PM Provider Statement: I JARRED CARTER MD personally performed the services described in the documentation as described by the above named scribe in my presence. It is both accurate and complete at the time of final signature. Dr. Jarred Carter 03/06/2024 2:21 PM Counseling: The following elements of medical decision making were considered during this visit: The patient was counseled regarding prognosis, risks and benefits of treatment options, impressions, importance of compliance with treatment and risk factor reductions. The patient verbalized understanding and agreement to the plan. Electronically signed by JARRED CARTER MD Please note that parts of this chart were generated using voice recognition [employer] dictation software. Although every effort was made to ensure the accuracy of this automated robot technician, some errors in robot technician may have occurred. Lissy Calle 03/06/24 1419 documented in this encounter [facility] 03-04-2024 Note PROCEDURE: In the co skip [...] SIGNED BY: Claudy Aviles MD Not Available 01-09-2024 History of Present illness Narrative Images from the original note were not included. [facility] - [facility] [address] [facility], [address] [place] [id number] SUBJECTIVE: Patient ID: Ashlee Jalloh is a 39 y.o. female presents today for Chief Complaint Patient presents with Ear Drainage HPI: 39-year-old female who is here with her . She was last seen on December 11, 2023. She presented with a 1 day history of left ear pain. She was diagnosed with a left otitis externa. She was started on Ciprodex drops. The pain has resolved. She has some fullness of her left ear. She does have a history of chronic sinusitis for 6 years. Her nose is stuffy and plugged. She denies any postnasal drip. She has no rhinorrhea. She has no cheek pressure. She has a known history of daily headaches. She has seen a neurologist in the past. He has had no allergy testing. She is 3 cats . She does not use any nasal sprays. She is here for evaluation. HISTORY: Past [...] on file Tobacco Use Smoking status: Never Passive exposure: Never Smokeless tobacco: Never Vaping Use Vaping status: Never Used Substance and Sexual Activity Alcohol use: No Drug use: No Sexual activity: Yes Partners: Male Other Topics Concern Not on file Social History Narrative Merged History Encounter Social Determinants of Health Financial Resource Strain: Patient Declined (02/22/2023) [facility] Overall Financial Resource Strain (CARDIA) Difficulty of Paying Living Expenses: Patient declined Food Insecurity: No Food Insecurity (08/24/2023) [facility] from [facility] Hunger Vital Sign Worried About Running Out of Food in the Last Year: Never true Ran Out of Food in the Last Year: Never true Transportation Needs: No Transportation Needs (08/24/2023) Re[facility] from [facility] [employer] [facility] PRAPARE - Transportation Lack of Transportation (Medical): No Lack of Transportation (Non-Medical): No Physical Activity: Not on file Stress: Not on file Social Connections: Not on file Interpersonal Safety: Not on file Housing Instability: Unknown (08/24/2023) [facility] Housing Stability Vital Sign Unable to Pay for Housing in the Last Year: No Number of Places Lived in the Last Year: Not on file In the last 12 months, was there a time when you did not have a steady place to sleep or slept in a half-way (including now)?: No Allergies Allergen Reactions Nubain [Nalbuphine] Dizziness and Vomiting Nubain [Nalbuphine] Nausea and Tachycardia Silicone Hives Adhesive Rash Cloth tape, tears skin and welts Current Outpatient Medications Medication Sig Dispense Refill [...] ORAL) Take 1 tablet by mouth daily. dexAMETHasone (DECADRON) 0.1 % ophthalmic solution Administer 2 drops into the left eye in the morning and at bedtime. Two drops to the left ear twice a day for 4 days. (Patient not taking: Reported on 01/09/2024) 5 mL 0 diazePAM (VALIUM) 5 mg tablet Take 1 [...] for chills and fever. HENT: Positive for ear discharge and tinnitus. Negative for ear pain. Dental problem: Resolved. Feels Plugged Respiratory: Negative for stridor. Allergic/Immunologic: Negative for food allergies. Neurological: Positive for headaches (MIgraine). Negative for dizziness. Data Reviewed: PHYSICAL EXAMINATION: Temp 36.3 C (97.3 F) (Temporal) Resp 16 Ht 162.6 cm (5' 4 ) Wt 77.1 kg (170 lb) BMI 29.18 kg/m Constitutional: General Appearance: Healthy, alert, cooperative, and in no distress Ability to Communicate: Normal ability to communicate and Voice normal Head/Face: Inspection of Head/Face: Normocephalic without obvious abnormality, Atraumatic appearance, and Sinuses non-tender Facial Nerve: Facial nerve symmetrical and intact Salivary Glands: Parotid Gland: Normal, Submandibular Gland: Normal, and Sublingual Gland: Normal Eyes: No gross abnormalities, EOMI, No Nystagmus, and wearing glasses Ears: External Ear: Normal bilateral External Auditory Canal: Normal bilateral Tympanic Membranes: Normal bilateral Middle Ear: Normal bilateral Hearing: Normal bilateral Nose: External Nose: Normal Septum: Midline septum Mucosa/Turbinates: Normal inferior turbinate and Normal mucosa Oral Cavity: Normal lips, Normal teeth, Normal gums, Normal floor of mouth, Normal oral mucosa, and Normal anterior tongue Oropharynx: Normal mucosa, Normal soft palate, Normal hard palate, Normal uvula, Normal tonsils, and Normal Vallecula tonsil 2+ Neck: Neck supple, No adenopathy, Thyroid normal in size without nodules or tenderness, No palpable neck masses, and Carotids normal Respiratory: No stridor, Normal respiratory effort and No use of accessory muscles Cardiovascular: Regular rate and Regular rhythm Neurologic: Patient is alert and oriented x3 with normal affect and grossly normal cranial nerves ASSESSMENT/PLAN: Ashlee was seen today for ear drainage. Diagnoses and all orders for this visit: Chronic pansinusitis Nasal congestion Otorrhea, left Comments: Resolved The patient's left otitis externa and ear infection have resolved. She has no longer any otorrhea. Her audiogram was reviewed with her. She has normal hearing. She has a mild high-frequency hearing loss. She does have a history of chronic sinusitis. I started her on Flonase nasal spray. I showed her the proper technique. I will see her back as needed. She agrees. Counseling: The following elements of medical decision making were considered during this visit: Reviewed and summarized previous records and Audiogram reviewed today . The patient was counseled regarding prognosis, risks and benefits of treatment options, impressions, importance of compliance with treatment and risk factor reductions. The patient verbalized understanding and agreement to the plan. Electronically signed by JARRED CARTER MD Please note that parts of this chart were generated using voice recognition [employer] dictation software. Although every effort was made to ensure the accuracy of this automated robot technician, some errors in robot technician may have occurred. documented in this encounter [facility] 01-09-2024 History of Present illness Narrative AUDIOLOGIC EVALUATION Reason for visit: CC: Patient is here for a follow up ear check. She has a history of PET in the past. She was last seen in office on 12/11/[address] Carter in which otorrhea was noted in her left ear. Today, she feels like there is still a blockage in her left ear. She has had PET in the past. She has a history of bilateral tinnitus that comes and goes throughout the day. She denies otorrhea, otalgia, and dizziness. She finds she is having to ask others to repeat more often. She feels the hearing in her right ear is better than her left ear. She has never worn hearing aids. She was adopted at age [age]. They wanted her to try hearing aids in the past, but she wasn't interested at the time. HISTORY: Concerns with hearing: Previous history Tinnitus: Bilateral, intermittent Dizziness: No Aural Fullness: Left ear Otalgia: No Otorrhea: No Other significant history: PET in the past RESULTS: Otoscopic Evaluation: Right Ear: Unremarkable Left Ear: Unremarkable Immittance Measures: Right Ear: Type A Left Ear: Type A Pure Tone Audiometry: Right Ear: Mild MHL Left Ear: Mild MHL sloping to moderate at 8000Hz Asymmetry noted: No Reliability: good Speech Audiometry: SRT/AFTERNOON NANNY in good agreement WRS: Right Ear: Excellent (92%) Left Ear: Excellent (92%) RECOMMENDATIONS: Follow up with Dr. Jarred LONGO pending medical clearance Retest per otologic management Edu Nguyen, [facility] Studio Control Operator documented in this encounter [facility] 12-21-2023 Miscellaneous Notes Called patient and advised patient to follow Dr. Carter's previous instructions that were provided at patient's last visit. Advised patient to continue applying 4 drops of Ciprodex to Left ear BID until patient's Recheck appointment scheduled on 01/09/2024. Patient: Ashlee Jalloh understands and agrees. Billie Mckeon CMA 12/21/23 0850 documented in this encounter [facility] 12-21-2023 Telephone encounter Note Called patient and advised patient to follow Dr. Carter's previous instructions that were provided at patient's last visit. Advised patient to continue applying 4 drops of Ciprodex to Left ear BID until patient's Recheck appointment scheduled on 01/09/2024. Patient: Ashlee Jalloh understands and agrees. Billie Mckeon CMA 12/21/23 0850 [facility] 12-12-2023 Miscellaneous Notes Pt calling because the ear drops prescribed are way too expensive through insurance and [facility]. Can you call something in that is cheaper? Traci Arguello. Please advise. Dr Carter patient I redid the order. I sent the prescription in to the pharmacy for 2 different drops. They will be 2 drops to left ear twice a day for 4 days. This will be used instead of the Ciprodex. Spoke with patient and let her know that a new script was sent to the pharmacy. documented in this encounter [facility] 12-12-2023 Telephone encounter Note Pt calling because the ear drops prescribed are way too expensive through insurance and [facility]. Can you call something in that is cheaper? Traci Arguello. Please advise. Dr Carter patient [facility] 12-12-2023 Telephone encounter Note I redid the order. I sent the prescription in to the pharmacy for 2 different drops. They will be 2 drops to left ear twice a day for 4 days. This will be used instead of the Ciprodex. [facility] [place] 12-12-2023 Telephone encounter Note Spoke with patient and let her know that a new script was sent to the pharmacy. [facility] 12-11-2023 Note [id number] [facility] 12-11-2023 History of Present illness Narrative [facility] - ENT [address] [facility] [id number] SUBJECTIVE: Patient ID: Ashlee Jalloh is a 38 y.o. female presents [...] was seen by an ENT physician in [facility]. She has a known history of retracted [...] normal cranial nerves MUCUS REMOVAL PROCEDURE NOTE Ashlee Jalloh was taken to the procedure room and placed in the supine position. Using binocular microscopy, visualization of the left external canal showed drainage. The cerumen was removed with suction. Once the ear canal was cleaned, the tympanic membrane was visualized. The tympanic membrane is thickened. Findings: Procedure was successful and and tolerated well. 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 Diagnoses [...] prior ENT records sent to us from [facility]. Scribe Statement: Scribed for and in the presence of JARRED CARTER MD by rudolph Zambrano. Alexa López 12/11/2023 1:15 PM Provider Statement: I JARRED CARTER MD personally performed the services described in the documentation as described by the above named scribe in my presence. It is both accurate and complete at the time of final signature. Dr. Jarred Carter 12/11/2023 1:25 PM Counseling: The following elements of medical decision making were considered during this visit: Reviewed and summarized previous records. The patient was counseled regarding prognosis, risks and benefits of treatment options, impressions, importance of compliance with treatment and risk factor reductions. The patient verbalized understanding and agreement to the plan. Electronically signed by JARRED CARTER MD Please note that parts of this chart were generated using voice recognition [employer] dictation software. Although every effort was made to ensure the accuracy of this automated robot technician, some errors in robot technician may have occurred. Alexa López 12/11/23 1323 documented in this encounter [facility] [employer] 12-11-2023 Hospital Discharge instructions Rishabh Ross MD - 12/11/2023 5:56 AM EDT Take [...] care or concern. documented in this encounter [facility] 11-07-2023 Evaluation + Plan note Future Scheduled TestsXR Spine Lumbosacral Minimum 4 Views 11/07/23 [facility] 09-28-2023 Hospital Discharge instructions Avelino Muse DO - 09/28/2023 11:34 AM EST Contains abnormal data COVID-19, Rapid Order: [id number] Status: Final result Visible to patient: Yes [...] this assay. Fact sheet for Healthcare Providers: https://www.fda.gov/media/501443 /download Fact sheet for Patients: https://www.fda.gov/media/193815 /download Methodology: Isothermal Nucleic Acid Amplification Results reported to the appropriate Health Department Resulting Agency [facility] Lab Specimen Collected: 09/28/23 11:05 EST Last Resulted: 09/28/23 11:26 EST The following attachments cannot be sent through Care Everywhere.Cough (Nigerien)Coronavirus Disease (COVID-19): General Info (Nigerien)Coronavirus Disease (COVID-19): Caring for Yourself: Quick List (Nigerien)Fever (Nigerien)documented in this encounter [facility] 09-11-2023 History of Present illness Narrative Subjective History of Present Illness [...] Patient states she has neck, back and GLENDA hip pain and stiffness. Patient states she will have intermittent GLENDA hand and knee swelling. All questions answered for the patient and risk advisor. 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 Instructions given on daily use of CHG to prevent infection. Patient voiced understanding. Patient arrived to 6A10, used eliz stedy to assist to bathroom and then bed. Right leg is numb from mid thigh down. C/o back pain 10/20. IV infusing into RH. at bedside. Oriented to room. Call light within reach. Bed alarm turned on. 0858: patient arrived to room via bed, attached to monitor, vital signs stable, report received from OR staff and LICENSED NUCLEAR OPERATOR. IV infusing via gravity. Spontaneous respirations. at [...] answered. Family updated. 1420: patient transported to [facility] via cart. going with patient. All belongings sent with patient. NPO after midnight Bring insurance info and drivers license Wear comfortable clean clothing Do not bring jewelry Shower night before and morning of surgery with a liquid antibacterial soap Bring list of medications with dosage and how often taken Follow all instructions given by your physician Dermatological Surgeon needed at discharge Please limit to 2 visitors for surgery You must have a responsible adult with you day of surgery and for 24 hours after surgery Call [facility] [phone] for any questions In preparation for their surgical procedure above patient was screened for Obstructive Sleep Apnea (DOLLY) using the STOP-Bang Questionnaire by the Pre-Admission Testing department. This is a pre-surgical screening tool for patient safety and serves as a recommendation, this WILL NOT cause cancellation of surgery. STOP-Bang Questionnaire * Do you currently see a spiral spring winder? No If yes STOP, do not complete. [...] M.B.B.S., Loren Hamm M.D., Samantha Stewart, Ph.D., Hayley Clayton M.B.B.S., Delgado Jiménez.Kostas., Lisa Barkley M.D., Kory Andino F.R.C.P.C. Anesthesiology 2008; 108:812-21 Copyright 2008, the [place] [employer], Inc. [employer] documented in this encounter [facility] 08-25-2023 Hospital course Narrative Images from the original note were not included. Hospital Medicine Discharge Summary Patient Identification: Ashlee Jalloh : 1985 Account: [id number] Patient's PCP: Lidia Keyes APRN - NP Admit Date: 08/24/2023 Discharge Date: 08/25/2023 Admitting Physician: Noé Solomon MD Discharge Physician: Noé Solomon MD Discharge Diagnoses: Post op complication from [...] to reach out to Dr. Aldridge on . Patient is back to baseline. Will dc on omnicef for 5 days and percocet Hospital Course: Ashlee Jalloh is a 38 y.o. female with [...] BP: 102/71 106/70 Pulse: 78 63 Resp: 18 18 18 Temp: 98.1 F (36.7 [...] DIET; Regular Follow-up visits: Patricio Aldridge MD [address] [place] [address] [place] [address] Follow up please call for follow [...] medications and discharge plan. Thank you Lidia Keyes APRN - KAROLYN for the opportunity to be involved in this patient's care. Signed: documented in this encounter [facility] 08-24-2023 Hospital Discharge instructions Viridiana Gramajo RN - 08/24/2023 6:35 AM EST Spinal [...] drink as normal after procedure Call office [phone] if you have: Temperature greater than 100.4 [...] you for choosing [facility] for your Surgical Care. Below you [...] doctor or nurse. documented in this encounter [facility] 04-12-2023 Note PROCEDURE: Bilateral sacroiliac joint injection. [...] created on his/her behalf by a trained director medical surgical. The creation of this document is based on the provider?s statements to the director medical surgical. Electronically signed by Elio Young MD 04/12/23 15:20 EDT Electronically signed by Christy Rubio 04/12/2023 14:[address] [facility] 04-12-2023 Note History of Present I llness [...] created on his/her behalf by a trained director medical surgical. The creation of this document is based on the provider?s statements to the director medical surgical. Problem List/Past Medical History Ongoing ADHD - [...] signed by Christy Rubio 04/12/2023 14:[address] [facility] 12-16-2022 Hospital Discharge instructions Catherine Calvillo MD - 12/16/2022 6:31 PM EDT Gentamicin [...] attachments cannot be sent through Care Everywhere.Conjunctivitis (Nigerien)documented in this encounter [employer] Phone: 11-06-2022 Hospital Discharge instructions Barbra Dias PA-C - 11/06/2022 7:19 PM EST Follow-up with primary care doctor 5 to 7 days for reevaluation. Continue to drink plenty fluids as tolerated take Tylenol or Motrin as directed for discomfort. Promptly return to emergency department for new, changing or worsening of symptoms or other concerns The following attachments cannot be sent through Care Everywhere.COVID-19: What Is It?: Video (Nigerien)documented in this encounter [facility] [employer] Phone: 10-10-2022 Note CONSULTATION PROCEDURE DATE: 10/10/2022 [...] understands and would like to proceed. [facility] 09-19-2022 Note CONSULTATION CONSULTATION DATE: 09/19/2022 CHIEF [...] understands and would like to proceed. [facility] 08-09-2022 Note Patient Education Ma terials Name: Ashlee Jalloh Current Date: 08/09/2022 09:38:44 [facility] : 1985 The following sheet(s) are the Patient Education Leaflets for Ashlee Jalloh Otolaryngology Tympanoplasty Tympanoplasty is surgery to [...] ? ? ? How to say it aqki-VJJ-pr-plas-julien SZB-sjmm-vug-ashanti-marcus Infection and injury Your eardrum may become [...] in an attempt to improve hearing. ? [id number] The [employer]. [address] [place] [address]. All rights reserved. This information is not intended as a substitute for professional medical care. Always follow your healthcare professional's instructions. [facility] 08-01-2022 Note CONSULTATION CONSULTATION DATE: 08/01/2022 HISTORY OF PRESENT ILLNESS: This is a 37-year-old female who is referred to us by Tiffany Tejeda. The patient has chronic knee pathology. The patient has been treated by Dr. Monk at [facility]. The patient has an MRI, unfortunately, we [...] The patient has attended physical therapy in summer of 2020. She has also been seen for chiropractic treatment in 2021, May. The patient had bilateral knee injections by Dr. Monk, which she states did not help, and [...] evaluate further. CC: Tiffany Tejeda CNP [facility] 06-25-2022 Hospital Discharge instructions Barbra Dias PA-C - 06/25/2022 5:39 PM EDT [...] cannot be sent through Care Everywhere.Otitis Media (Nigerien)documented in this encounter [facility] [employer] Phone: 04-11-2022 History of Present illness Narrative General Plastics Review of Systems: [...] currently taking the medication Adipex? no. Subjective: Ashlee Jalloh is an 37 y.o. female who presents for evaluation today to discuss a breast reduction. She wears a 38 G bra. She has chronic back pain and sees a chiropractor. Her last appointment was 2 weeks ago. Ashlee also has neck and shoulder pain and [...] request for preauthorization documented in this encounter [facility] 11-12-2021 Hospital Discharge instructions Delbert Nascimento MD - 11/12/2021 Please follow-up with your general surgeon's office. If you have worsening symptoms or any other concerns return to emergency department. The following attachments cannot be sent through Care Everywhere.Wound Check (Nigerien)documented in this encounter [employer] Phone: 02-18-2021 Hospital Discharge instructions Charles Pearce Jr., MD - 02/18/2021 Return if have increasing abdominal pain, fever, or vomiting. The following attachments cannot be sent through Care Everywhere.Abdominal Pain (Nigerien)documented in this encounter [employer] Phone: Evaluation + Plan note Future Appointments Appointment Date:06/05/2023 08:30:00 AM Scheduled Provider: Location:[facility]ARDIO Appointment Type:CV Stress ([facility]) Appointment Date:07/16/2023 02:15:00 PM Scheduled Provider:Malaika Lan MD Location:[facility] Appointment Type:Cardiology Follow Up ([facility]) Future Scheduled TestsEcho Transthoracic Complete 06/04/23ECG Stress Exercise 06/05/23 [facility] Evaluation + Plan note Future Appointments Appointment Date:07/16/2023 02:15:00 PM Scheduled Provider:Malaika Lan MD [facility] Type:Cardiology Follow Up (FT) Future Scheduled TestsEcho Transthoracic Complete 06/04/23 [facility] Evaluation + Plan note Future Appointments Appointment Date:07/16/2023 02:15:00 PM Scheduled Provider:Malaika Lan MD [facility] Type:Cardiology Follow Up (FT) [facility] Evaluation + Plan note Future Appointments Appointment Date:02/19/2024 08:00:00 AM Scheduled Provider:Darlene Dillard Location:[facility] Appointment Type:BH Therapy 60 Appointment Date:02/20/2024 08:20:00 AM Scheduled Provider:[facility] Jones [facility] Open Future Scheduled TestsXR Spine Lumbosacral Minimum 4 Views 11/07/23 [facility] Evaluation + Plan note Future Appointments Appointment Date:02/20/2024 08:20:00 AM Scheduled Provider:Lidia Jones [facility] Type:FM Open Appointment Date:03/04/2024 10:00:00 AM Scheduled Provider:Darlene Dillard Location:[facility] Appointment Type:BH Therapy 60 Future Scheduled TestsXR Spine Lumbosacral Minimum 4 Views 11/07/23 [facility] Evaluation + Plan note Future Appointments Appointment Date:03/04/2024 10:00:00 AM Scheduled Provider:Darlene Dillard Location:[facility] Appointment Type:BH Therapy 60 Appointment Date:03/24/2024 01:00:00 PM Scheduled Provider: [facility] Type:EMG Bilateral Lower Extremity Future Scheduled TestsXR Spine Lumbosacral Minimum 4 Views 11/07/23 [facility] Evaluation + Plan note Future Appointments Appointment Date:03/18/2024 09:00:00 AM Scheduled Provider:Darlene Dillard Location:[facility] Appointment Type:BH Therapy 60 Appointment Date:03/24/2024 01:00:00 PM Scheduled Provider: [facility] Type:EMG Bilateral Lower Extremity Appointment Date:04/01/2024 10:00:00 AM Scheduled Provider:Darlene Dillard Location:[facility] Appointment Type:BH Therapy 60 Future Scheduled TestsXR Spine Lumbosacral Minimum 4 Views 11/07/23 [facility] Health Evaluation + Plan note Future Appointments Appointment Date:03/24/2024 01:00:00 PM Scheduled Provider: [facility] Type:EMG Bilateral Lower Extremity Appointment Date:04/01/2024 10:00:00 AM Scheduled Provider:Darlene Dillard Location:[facility] Appointment Type:BH Therapy 60 Appointment Date:04/15/2024 10:00:00 AM Scheduled Provider:Darlene Dillard Location:[facility] Appointment Type:BH Therapy 60 Future Scheduled TestsXR Spine Lumbosacral Minimum 4 Views 11/07/23 [facility] Evaluation + Plan note Future Appointments Appointment Date:04/01/2024 10:00:00 AM Scheduled Provider:Darlene Dillard Location:[facility] Appointment Type:DEEJAY Therapy 60 Appointment Date:04/15/2024 10:00:00 AM Scheduled Provider:Darlene Dillard Location:[facility] Appointment Type:DEEJAY Therapy 60 Future Scheduled TestsXR Spine Lumbosacral Minimum 4 Views 11/07/23 [facility] Evaluation + Plan note Future Appointments Appointment Date:04/15/2024 10:00:00 AM Scheduled Provider:Darlene Dillard Location:[facility] Appointment Type:DEEJAY Therapy 60 Appointment Date:04/29/2024 09:00:00 AM Scheduled Provider:Darlene Dillard Location:[facility] Appointment Type:BH Therapy 60 Appointment Date:05/13/2024 10:00:00 AM Scheduled Provider:Darlene Dillard Location:[facility] Appointment Type:BH Therapy 60 Future Scheduled TestsXR Spine Lumbosacral Minimum 4 Views 11/07/23 [facility] Evaluation + Plan note Future Appointments Appointment Date:04/23/2024 09:20:00 AM Scheduled Provider:Lidia Jones [facility]FM Open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 issues with col d feet, hands, ears, feels like toes are rocks when walks and very painful Specialty Diagnoses / Procedures Referred By Ronnie kaur Referred To Contact Vascular Surgery Diagnoses Cold feet Discoloration of skin of foot Lidia Keyes, HOME SERVICE ADVISOR-RAILROAD HAND [address] [place] [address] Phone: tel: fax: [facility] [address] [place] [address] Phone: tel:[phone] fax: Referral ID Status Reason Start Date Expiration Date Visits Requested Visits Authorized [id number] Pending Review Specialty Services Required 09/18/2024 09/18/2025 1 1 Reason Comments Dizziness Dizziness with near syncope and hypotension while at work today. States hx of vertigo and recent changes to cholesterol medications. Reason Comments Ear Drainage Reason Comments hole in nasal septum Reason Comments Bollous myringitis Reason Comments Neck Pain Back Pain Right sided neck olivia n that radiates to upper back for the last 4 days. Patient states the pain has worsened and has numbness and tingling that began around 45 mins AFTERNOON NANNY. Reason Comments Appointment New patient call Reason Comments Back Pain Patient to the emerg ency department from work with complaint of chronic back pain that is more intense and different than her normal. Patient has had multiple back surgeries from L4 to SI joint. Today the pain is different feeling and verbalizes that her legs are heavy feeling and weak. Reason Comments Consult Specialty Diagnoses / Procedures Referred By Ronnie kaur Referred To Contact PAIN MANAGEMENT Diagnoses Status post lumbar spinal fusion Unilateral groin pain Labral tear of hip, degenerative Pain in right hip Spinal stenosis of lumbar region, unspecified whether neurogenic claudication present Procedures CONSULT TO PAIN MGT OFFICE/OUTPATIENT NEW HIGH MDM 60 MINUTES Johnathan Haas MD [address] [place] [address] Phone: tel: fax: Pain Management [address] [place] [address] Phone: tel: fax: Referral ID Status Reason Start Date Expiration Date V isits Requested Visits Authorized [id number] Closed PCP Requested Referral 12/23/2024 09/09/2025 1 1 Reason Comments New Pain Specialty Diagnoses / Procedures Referred By Contac t Referred To Contact ORTHOPAEDIC SURGERY Diagnoses Labral tear of hip, degenerative Pain in right hip Procedures CONSULT TO ORTHOPAEDICS OFFICE/OUTPATIENT [facility] 60 MINUTES Johnathan Haas MD [address] [place] [address] Phone: tel: fax: Orthopaedics [address] [place] [address] Phone: tel: fax: Referral ID Status Reason Start Date Expiration Date V isits Requested Visits Authorized [id number] Closed PCP Requested Referral 12/23/2024 09/09/2025 1 1 Reason Comments Radiology XR Specialty Diagnoses / Procedures Referred By Lilianac t Referred To Contact XR IMAGING Diagnoses Pain in right hip Procedures XR HIP GENERAL 3V PELV/AP/LAT RIGHT RADEX HIP UNILATERAL WITH PELVIS 2-3 VIEWS Uriel Guzmán MD [address] [place] [address] Phone: tel: fax: [place] [address] Referral ID Status Reason Start Date Expiration Date V isits Requested Visits Authorized [id number] Closed Auto-Generate d Referral 01/01/2025 01/31/2026 1 1 Reason Comments Pain Reason Comments Results Reason Comments Pelvic Pain Reason Comments Well Women Visit Reason Comments Schedule Surgery Right hip arthroscop y Reason Comments Post Op Patient Update Reason Comments Established Patient Reason Comments Established Patient Post Op Pain Reason Onset Date Comments EMG 03/26/2025 Specialty Diagnoses / Procedures Referred By Lilianac t Referred To Contact [facility] Diagnoses Bilateral carpal tunnel syndrome Procedures EMG(NEURO/NI) NERVE CONDUCTION STUDIES 9-10 STUDIES Johnathan Haas MD [address] [place] [address] Phone: tel: fax: Neurology [address] [place] [address] Phone: tel: Referral ID Status Reason Start Date Expiration Date V isits Requested Visits Authorized [id number] Closed Auto-Generate d Referral 03/04/2025 03/04/2026 1 1 Reason Comments Post Op Reason Comments Follow Up Ordered Prescriptions (unrec ognized section and content) [...] 7 days 14 tablet 0 12/11/2023 12/18/2023 Prescription Sig Dispense Quantity Refills Last Filled Start Date End Date cyclobenzaprine (FLEXERIL) 10 MG tablet Take 1 tablet by mouth 3 times daily as needed for Muscle spasms 21 tablet 12/03/2024 5 methylPREDNISolone (MEDROL, DIOGENES,) 4 MG tablet Start Medrol Dosepak tomorrow , 12/04/2024 and take daily as directed until complete 21 tablet 12/04/2024 5 Prescription Sig Dispense Quantity Refills Last Filled Start Date End Date cyclobenzaprine (FLEXERIL) 10 MG tablet Take 1 tablet by mouth 3 times daily as needed for Muscle spasms 21 tablet 12/19/2024 lidocaine (LIDODERM) 5 % Place 1 patch onto the skin daily 12 hours on, 12 hours off. 30 patch 12/19/2024 ketorolac (TORADOL) 10 MG tablet Take 1 tablet by mouth every 6 hours as needed for Pain 10 tablet 12/19/2024 gabapentin (NEURONTIN) 100 MG capsule Take 1 capsule by mouth every 6 hours as needed (Pain) for up to 5 days. 12 capsule 12/19/2024 Scheduled Active and Recently Administ ered Medications [...] mg (COMPLETED) 600 mg, Oral, ONCE, On 02/18/21 at 1715, For 1 dose, Do not crush or chew. 1733 (Given - Provid er: Blessing Nassar RN) Scheduled Medication Order 06/23/2022 06/24/2022 [...] on 12/16/22 at 1845, Last dose on Tu12/26/22 at 1700, 1 bottle to go 1910 (Given - Provid er: Blessing Velasco RN) Scheduled Medication Order 08/23/2023 08/24/2023 08/25/2023 ceFAZolin (ANCEF) 2000 mg in 0.9% sodium chloride 50 mL IVPB (COMPLETED) 2,000 mg, IntraVENous, ONCE, 1 dose, On Sun08/24/23 at 0745, Antimicrobial Indications: Other, Other Abx Indication: surgical prophylaxis 0751 (Given - Provider: Dacia Mena APRN - LICENSED NUCLEAR OPERATOR) enoxaparin (LOVENOX) injection 40 mg 40 mg, [...] 0907 (Canceled Entry - Provider: Tressa Casas, JOHN)2100 (Due) Continuous Medication Order 08/23/2023 08/24/2023 08/25/2023 [...] (Given - Provider: Patricio Aldridge MD) lidocaine-EPINEPHrine 2%-1:[id number] injection (CANCELED) PRN, Starting on Sun08/24/23 at [...] 0440 (Given - Provid er: Kelsy Corbin, JOHN)1105 (Given - Provider: Tressa Casas RN) polyethylene [...] IntraMUSCular, ONCE, 1 dose, On 09/01/23 at 2014, If oral and IV narcotics ordered, use [...] (Given - Provid er: Maddy Morgan RN) Scheduled Medication Order 10/13/2024 10/14/2024 10/15/2024 meclizine (ANTIVERT) tablet 12.5 mg (COMPLETED) 12.5 mg, Oral, ONCE, 1 dose, On Sun10/15/24 at 1615 1644 (Given - Provid er: Madison Rivera RN) potassium chloride (KLOR-CON M) extended release tablet 40 mEq (COMPLETED) 40 mEq, Oral, ONCE, 1 dose, On Sun10/15/24 at 1700, Do not crush or break. Do not crush, chew, or suck on tablet. Tablet may also be broken in half and each half swallowed separately. 1817 (Given - Provid er: Maddy Moser RN) sodium chloride 0.9 % bolus 1,000 mL (COMPLETED) 1,000 mL (13 mL/kg), IntraVENous, at 1,935.5 mL/hr, Administer over 31 Minutes, ONCE, On Sun10/15/24 at 1615, For 1 dose, For adult patients weighing > 55 kg (120 lbs.) and less than <50 years of age initiate 0.9NS at 500 mL/ hr. All bolus orders are to be given over 10 to 15 minutes 1643 (New Bag - Prov ider: Madison Rivera RN)181 (Stopped - Provider: Maddy Moser RN) Scheduled Medication Order 12/01/2024 12/02/2024 12/03/2024 diazePAM (VALIUM) tablet 5 mg (COMPLETED) 5 mg, Oral, ONCE, 1 dose, On Sun12/03/24 at 1230 1230 (Given - Provid er: Darby Khan RN) methylPREDNISolone sodium succ (SOLU-MEDROL) 125 mg in sterile water 2 mL injection (COMPLETED) 125 mg, IntraVENous, ONCE, On Sun12/03/24 at 1230, For 1 dose, Reconstitute 125 mg vial with 2 mL diluent. 1230 (Given - Provid er: Darby Khan RN) PRN Medication Order 12/01/2024 12/02/2024 12/03/2024 iopamidol (ISOVUE-370) 76 % injection 75 mL (COMPLETED) 75 mL, IntraVENous, IMG ONCE PRN, 1 dose, Starting on Sun12/03/24 at 1136, Until Sun12/03/24 at 1148, Other 1148 (Given - Provid er: Jaqueline Couch) Scheduled Medication Order 12/17/2024 12/18/2024 12/19/2024 dexAMETHasone (DECADRON) injection 10 mg (COMPLETED) 10 mg, IntraVENous, ONCE, On Sun12/19/24 at 1130, For 1 dose 1138 (Given - Provid er: Madison Rivera RN) gabapentin (NEURONTIN) capsule 200 mg (COMPLETED) 200 mg, Oral, Once, 1 dose, On Sun12/19/24 at 1130 1126 (Given - Provid er: Madison Rivera RN) ketorolac (TORADOL) injection 30 mg (COMPLETED) 30 mg, IntraVENous, ONCE, 1 dose, On Sun12/19/24 at 1130, Do not administer for more than 5 days. 1138 (Given - Provid er: Madison Rivera RN) lidocaine 4 % external patch 1 patch 1 patch, TransDERmal, Administer over 12 Hours, DAILY, First dose on Sun12/19/24 at 1130, Apply patch to back. The audio visual tech's recommendations for the number of patches that can be applied within a 24-hour period varies from 1 to 4 times daily and the duration of application varies from 8 to 24 hours; refer to the audio visual tech's labeling for product-specific recommendations. 1125 (Patch Applied - Provider: Madison Rivera RN)2325 (Due: Patch Removed - Provider: Madison Rivera RN) orphenadrine (NORFLEX) injection 60 mg (COMPLETED) 60 mg, IntraVENous, ONCE, 1 dose, On Sun12/19/24 at 1130 1135 (Given - Provid er: Madison Rivera RN) Care Teams (unrecognized sec tion and content) Paper Carrier Relationship Specialty Start Date End Date Tiffany Tejeda APRN - RAILROAD HAND [address] [id number] PCP - General Family Nurse Practitioner 05/26/21 Paper Carrier Relationship Specialty Start Date End Date Tiffany Tejead APRN - RAILROAD HAND [address] [id number] PCP - General Family Nurse Practitioner 05/26/21 Paper Carrier Relationship Specialty Start Date End Date Tiffany Tejeda CNP [address] [id number] PCP - General Certified Nurse Practitioner 04/11/22 Paper Carrier Relationship Specialty Start Date End Date Tiffany Tejeda APRN - RAILROAD HAND [address] [id number] PCP - General Family Nurse Practitioner 05/26/21 Paper Carrier Relationship Specialty Start Date End Date Tiffany Tejeda APRN - RAILROAD HAND [address] [place] [address] PCP - General Family Nurse Practitioner 05/26/21 Paper Carrier Relationship Specialty Start Date End Date Tiffany Tejeda APRN - RAILROAD HAND [address] [place] [address] PCP - General Family Nurse Practitioner 05/26/21 Paper Carrier Relationship Specialty Start Date End Date ToñoLidia dumas, HOME SERVICE ADVISOR - WIRE COATING OPERATOR METAL [address] [place] [address] PCP - General 06/11/23 Paper Carrier Relationship Specialty Start Date End Date Lidia Keyes, HOME SERVICE ADVISOR - WIRE COATING OPERATOR [address] [place] [address] PCP - General 06/11/23 Paper Carrier Relationship Specialty Start Date End Date Tiffany Tejeda CNP [address] [id number] PCP - General Certified Nurse Practitioner 04/11/22 Paper Carrier Relationship Specialty Start Date End Date Lidia Keyes, HOME SERVICE ADVISOR - WIRE COATING OPERATOR METAL [address] [place] [address] PCP - General 06/11/23 Paper Carrier Relationship Specialty Start Date End Date Lidia Keyes, HOME SERVICE ADVISOR - WIRE COATING OPERATOR [address] [place] [address] PCP - General 06/11/23 Paper Carrier Relationship Specialty Start Date End Date Lidia Keyes, HOME SERVICE ADVISOR - WIRE COATING OPERATOR [address] [place] [address] PCP - General 06/11/23 Paper Carrier Relationship Specialty Start Date End Date Toño, Lidia, HOME SERVICE ADVISOR - WIRE COATING OPERATOR [address] [place] [address] PCP - General 06/11/23 Paper Carrier Relationship Specialty Start Date End Date Toño, Lidia, HOME SERVICE ADVISOR - WIRE COATING OPERATOR [address] [place] [address] PCP - General 06/11/23 Paper Carrier Relationship Specialty Start Date End Date Toño, Lidia, HOME SERVICE ADVISOR - WIRE COATING OPERATOR [address] [place] [address] PCP - General 06/11/23 Paper Carrier Relationship Specialty Start Date End Date Toño, Lidia, HOME SERVICE ADVISOR - WIRE COATING OPERATOR [address] [place] [address] PCP - General 06/11/23 Paper Carrier Relationship Specialty Start Date End Date Toño, Lidia, HOME SERVICE ADVISOR - WIRE COATING OPERATOR MET[address] [place] [address] PCP - General 06/11/23 Paper Carrier Relationship Specialty Start Date End Date Toño, Lidia, HOME SERVICE ADVISOR - WIRE COATING OPERATOR [address] [place] [address] PCP - General 06/11/23 Paper Carrier Relationship Specialty Start Date End Date Tiffany Tejeda, HOME SERVICE ADVISOR-RAILROAD HAND [address] [facility] [place] [address] PCP - General Family Medicine 01/12/22 Paper Carrier Relationship Specialty Start Date End Date MightTiffany APRN-RAILROAD HAND [address] [place] [address] PCP - General Family Medicine 01/12/22 Paper Carrier Relationship Specialty Start Date End Date Lidia Keyes HOME SERVICE ADVISOR - WIRE COATING OPERATOR METAL [address] [place] [place] [place] [address] PCP - General 06/11/23 Paper Carrier Relationship Specialty Start Date End Date MightTiffany APRN-RAILROAD HAND [address] [place] [address] PCP - General Family Medicine 01/12/22 Paper Carrier Relationship Specialty Start Date End Date MightTiffany APRN-RAILROAD HAND [address] [place] [address] PCP - General Family Medicine 01/12/22 Paper Carrier Relationship Specialty Start Date End Date Tiffany Tejeda APRN-RAILROAD HAND [address] [place] [address] PCP - General Family Medicine 01/12/22 Paper Carrier Relationship Specialty Start Date End Date Tiffany Tejeda APRN-RAILROAD HAND [address] [place] [address] PCP - General Family Medicine 01/12/22 Paper Carrier Relationship Specialty Start Date End Date Tiffany Tejeda APRN-RAILROAD HAND [address] [place] [address] PCP - General Family Medicine 01/12/22 Paper Carrier Relationship Specialty Start Date End Date Tiffany Tejeda APRN-RAILROAD HAND [address] [place] [address] PCP - General Family Medicine 01/12/22 Paper Carrier Relationship Specialty Start Date End Date Tiffany Tejeda, HOME SERVICE ADVISOR-RAILROAD HAND [address] [place] [address] PCP - General Family Medicine 01/12/22 Paper Carrier Relationship Specialty Start Date End Date ToñoLidia dumas, HOME SERVICE ADVISOR - WIRE COATING OPERATOR METAL [address] [place] [place] [place] [address] PCP - General 06/11/23 Paper Carrier Relationship Specialty Start Date End Date ToñoLidia dumas, HOME SERVICE ADVISOR - WIRE COATING OPERATOR METAL [address] [facility] [address] PCP - General 06/11/23 Paper Carrier Relationship Specialty Start Date End Date ToñoLidia dumas, HOME SERVICE ADVISOR - WIRE COATING OPERATOR METAL [address] [place] [address] PCP - General 06/11/23 Paper Carrier Relationship Specialty Start Date End Date Lidia Keyes, HOME SERVICE ADVISOR - WIRE COATING OPERATOR METAL [address] [facility] [place] [address] PCP - General 06/11/23 Paper Carrier Relationship Specialty Start Date End Date ToñoLidia dumas, HOME SERVICE ADVISOR - WIRE COATING OPERATOR METAL [address] [place] [place] [place] [address] PCP - General 06/11/23 Paper Carrier Relationship Specialty Start Date End Date Lidia Keyes, HOME SERVICE ADVISOR - WIRE COATING OPERATOR METAL [address] [facility] [place] [address] PCP - General 06/11/23 Paper Carrier Relationship Specialty Start Date End Date Lidia Keyes, HOME SERVICE ADVISOR - WIRE COATING OPERATOR METAL [address] [place] [address] PCP - General 06/11/23 Paper Carrier Relationship Specialty Start Date End Date Lidia Keyes, HOME SERVICE ADVISOR - WIRE COATING OPERATOR METAL [address] [place] [address] PCP - General 06/11/23 Paper Carrier Relationship Specialty Start Date End Date Lidia Keyes, HOME SERVICE ADVISOR - WIRE COATING OPERATOR METAL [address] [place] [address] PCP - General 06/11/23 Source Comments (unrecognize d section and content) In the event this informatio n is protected by the Federal Confidentiality of Alcohol and Drug Abuse Patient Records regulations: The Federal rules restrict any use of the information to criminally investigate or prosecute any alcohol or drug abuse patient.[facility] HealthIn the event this information is protected by the Federal Confidentiality of Alcohol and Drug Abuse Patient Records regulations: The Federal rules restrict any use of the information to criminally investigate or prosecute any alcohol or drug abuse patient.[facility] HealthIn the event this information is protected by the Federal Confidentiality of Alcohol and Drug Abuse Patient Records regulations: The Federal rules restrict any use of the information to criminally investigate or prosecute any alcohol or drug abuse patient.[facility] HealthIn the event this information is protected by the Federal Confidentiality of Alcohol and Drug Abuse Patient Records regulations: The Federal rules restrict any use of the information to criminally investigate or prosecute any alcohol or drug abuse patient.[facility] HealthIn the event this information is protected by the Federal Confidentiality of Alcohol and Drug Abuse Patient Records regulations: The Federal rules restrict any use of the information to criminally investigate or prosecute any alcohol or drug abuse patient.[facility] HealthIn the event this information is protected by the Federal Confidentiality of Alcohol and Drug Abuse Patient Records regulations: The Federal rules restrict any use of the information to criminally investigate or prosecute any alcohol or drug abuse patient.[facility] HealthIn the event this information is protected by the Federal Confidentiality of Alcohol and Drug Abuse Patient Records regulations: The Federal rules restrict any use of the information to criminally investigate or prosecute any alcohol or drug abuse patient.[facility] HealthIn the event this information is protected by the Federal Confidentiality of Alcohol and Drug Abuse Patient Records regulations: The Federal rules restrict any use of the information to criminally investigate or prosecute any alcohol or drug abuse patient.[facility] HealthIn the event this information is protected by the Federal Confidentiality of Alcohol and Drug Abuse Patient Records regulations: The Federal rules restrict any use of the information to criminally investigate or prosecute any alcohol or drug abuse patient.[facility] HealthIn the event this information is protected by the Federal Confidentiality of Alcohol and Drug Abuse Patient Records regulations: The Federal rules restrict any use of the information to criminally investigate or prosecute any alcohol or drug abuse patient.[facility] ClinicIn the event this information is protected by the Federal Confidentiality of Alcohol and Drug Abuse Patient Records regulations: The Federal rules restrict any use of the information to criminally investigate or prosecute any alcohol or drug abuse patient.[facility] HealthIn the event this information is protected by the Federal Confidentiality of Alcohol and Drug Abuse Patient Records regulations: The Federal rules restrict any use of the information to criminally investigate or prosecute any alcohol or drug abuse patient.[facility] HealthIn the event this information is protected by the Federal Confidentiality of Alcohol and Drug Abuse Patient Records regulations: The Federal rules restrict any use of the information to criminally investigate or prosecute any alcohol or drug abuse patient.[facility] HealthIn the event this information is protected by the Federal Confidentiality of Alcohol and Drug Abuse Patient Records regulations: The Federal rules restrict any use of the information to criminally investigate or prosecute any alcohol or drug abuse patient.[facility] HealthIn the event this information is protected by the Federal Confidentiality of Alcohol and Drug Abuse Patient Records regulations: The Federal rules restrict any use of the information to criminally investigate or prosecute any alcohol or drug abuse patient.[facility] HealthIn the event this information is protected by the Federal Confidentiality of Alcohol and Drug Abuse Patient Records regulations: The Federal rules restrict any use of the information to criminally investigate or prosecute any alcohol or drug abuse patient.[facility] HealthIn the event this information is protected by the Federal Confidentiality of Alcohol and Drug Abuse Patient Records regulations: The Federal rules restrict any use of the information to criminally investigate or prosecute any alcohol or drug abuse patient.[facility] HealthIn the event this information is protected by the Federal Confidentiality of Alcohol and Drug Abuse Patient Records regulations: The Federal rules restrict any use of the information to criminally investigate or prosecute any alcohol or drug abuse patient.[facility] HealthIn the event this information is protected by the Federal Confidentiality of Alcohol and Drug Abuse Patient Records regulations: The Federal rules restrict any use of the information to criminally investigate or prosecute any alcohol or drug abuse patient.[facility] FOR RECORDS PERTAINING TO PATIENTS WHO ARE [...] BE BASED ON THE PRIMARY CLINICAL RECORDS. [facility] [employer] [facility]. provides no warranty or guarantee of the accuracy or completeness of information in this document.
== END 2025-05-07 12:51 | disposition home or self-care (01) ==
LOC: US 12:50
PROVIDERS: PCP Nurse Practitioner; Visit Provider Obstetrics & Gynecology
DX: Z12.31 Encounter for screening mammogram for malignant neoplasm of breast (principal); R10.2 Pelvic and perineal pain; Z80.3 Family history of malignant neoplasm of breast; N83.292 Other ovarian cyst, left side
CPT/HCPCS: 76830; 76856; 77063; 77067

== ENCOUNTER 2025-05-13 08:42 | Outpatient (OUT) | payer MEDICAID, SELFPAY ==
--- OUTSIDE RECORDS SUMMARY | 2025-05-13 08:55 | XMS_ITS | CCD ---
Author Organization [facility] Care Team Providers Care Lead Application Architect Name Role Phone NIKIA MONTE Admitting Unavailable NIKIA MONTE Attending Unavailable NIKIA MONTE Primary Care Unavailable Harman CALLAWAY Attending Unavailable NIKIA MONTE Primary Care Unavailable NIKIA MONTE Attending Unavailable NIKIA MONTE Primary Care Unavailable Nikia Monte Primary Care Provider [phone] HAI GARZA Attending Unavailable NIKIA MONTE Primary Care Unavailabl NOELLE Burrell Attending Unavailable NIKIA MONTE Primary Care Unavailabl e Nikia Monte Primary Care Provider [phone] Nikia Monte Primary Care Provider Nikia Monte Primary Care Provider Unavailable Primary Care Provider Unavailabl e Might 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 - DRYWALL STRIPPER HELPER, Tiffany Rivero Primary Care Provider Lizabeth 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 - DRYWALL STRIPPER HELPERNikia Primary Care Provider Might Tiffany NG Primary Care Provider Might 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 - DRYWALL STRIPPER HELPER, Tiffany W Primary Care Provider Might 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 - DRYWALL STRIPPER HELPER, Tiffany W Primary Care Provider LAKSHMIPATHY ., NARENDRANATH Admitting Lyssa vailable LAKSHMIPATHMontse ., LAURITAATH Attending Lyssa vailarob PRASAD ., DR MARISABEL Knowles Primary Care Unavailable MISC, DR POTTS Consulting Unavailable SIOBHAN ., DR [...] Bruno Dewey MD, Chi Attending Unavailable Might 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-DRYWALL STRIPPER HELPER, [facility] Care Un available Radha Rodrigues Attending Unavaila Bruno Farmer MD, Chi Referring Unavailable Might 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-[employer], [facility] Care Un available Bruno Dewey MD, Chi Attending Unavailable Missy Sims PA-C Attending Anibal Sam MD [facility] Unavail able Missy Sims PA-C Attending Lyssavai labgini Might 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-[employer], [facility] Care Un available Yulia Hi Attending Unavailable Anibal Mayberry MD [facility] Care Unavail able Tahir STACYN-Geetha NG Attending Unav ailable Might 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-[employer], [facility] Care Un available Tahir STACYN-HERNANDEZ, Geetha Mcclendon Attending Unav ailable Obdulia CONROY, Yvon Marks Referring Unavail able Might 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-[employer], [facility] Care Un available Elio Young MD Attending Lyssavai lable Might 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-DRYWALL STRIPPER HELPER, [facility] Care Un available Yulia Hi Attending Unavailable Anibal Mayberry MDony Primary Care Unavail able Bethany CHARLES, Missy Ding Attending Unavai labgini Might 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-DRYWALL STRIPPER HELPER, Tiffany Soto Primary Care Un available Maco CONROY, Bruno Duran Attending Unavailable Might 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-DRYWALL STRIPPER HELPER, Tiffany Soto Primary Care Un available Toño, Lidia L Primary Care Physician Toño 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 - STAFF EDITOR, Lidia Primary Care Provider NOÉ SOLOMON Attending Unavailable NOÉ SOLOMON Admitting Unavailable TOÑO, LIDIA Primary Care Unavailable Might DRYWALL STRIPPER HELPER, Tiffany Primary Care Provider [phone] Unavailable Primary Care Provider Unavailabl e Might 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-DRYWALL STRIPPER HELPER, Tiffany W Primary Care Provider JARRED CARTER Attending Unavailable [...] MIGHT, TIFFANY W Primary Care Unavailable Toño, 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 Lidia L Attending Unavailable Toño, 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 Lidia L Admitting Unavailable Toño, Lidia L Attending Unavailable Toño, Lidia L Attending Unavailable Toño, Lidia L Attending Unavailable Otño, Lidia L Attending Unavailable Jose, Darlene M [...] Attending Unavailable Toño, Lidia L Admitting Unavailable Jose, Darlene M Attending Unavailable Toño, Lidia Swenson Attending Unavailable Toño, Lidia Swenson Attending Unavailable Toño, Lidia Swenson Attending Unavailable Toño, Lidia Swenson Attending Unavailable Toño, Lidia Swenson Attending Unavailable Toño, Lidia Swenson Attending Unavailable Jose, Darlene M Attending Unavailable Jose, Darlene M Attending Unavailable Jose, Darlnee M Attending Unavailable Jose, Darlene M Attending [...] ENCARNACION Attending Unavailable DENIZ ENCARNACION Admitting Unavailable HAAS, JOHNATHAN Attending Unavailable SELF Referring Unavailable DENIZ ENCARNACION Attending Unavailable MADYSON VILLAFUERTE Attending Unavailable URIEL GUZMÁN Attending Unavailabl e HAAS, JOHNATHAN Referring Unavailable URILE GUZMÁN Referring Unavailabl e RISHABH HUANG Attending Unavailable HAAS, JOHNATHAN Referring Unavailable HAAS, JOHNATHAN Attending Unavailable SELF Referring Unavailable MADYSON VILLAFUERTE Attending Unavailable HAASJOHNATHAN PALENCIA Referring Unavailable MYNOR GLASER Attending Unavailable TOÑO, LIDIA Primary Care Unavailable ANNIACHRISTOFER Knowles Referring Unavailable ANNIACHRISTOFER Knowles Attending Unavailable TOÑO, LIDIA Primary Care Unavailable RISHABH HUANG Referring Unavailable TOÑO, LIDIA Primary Care Unavailable RISHABH HUANG Referring Unavailable TOÑO, LIDIA Primary Care Unavailable ZAIDAI WAYNE Referring Unavailable TOÑO, LIDIA Primary Care Unavailable ZAIDAI, WAYNE Referring Unavailable DOC FELIX Attending Unavailable TOÑO, LIDIA Primary Care Unavailable CATHERINE CALVILLO Attending Unavailable TOÑO, LIDIA Primary Care Unavailable TOÑO, LIDIA Primary Care Unavailable RISHABH HUANG Referring Unavailable TOÑO, LIDIA Primary Care Unavailable RISHABH HUANG Referring Unavailable TOÑO, LIDIA Primary Care Unavailable BIMOODYI, WAYNE Referring Unavailable TOÑO, LIDIA Primary Care [...] Primary Care Unavailable SAL, RISHABH Referring Unavailable Tñoo, Lidia L Attending Unavailable Toño, Lidia L Attending Unavailable Toño, Lidia L Attending Unavailable PAULIEELIZABETH Attending Unavailable Toño, Lidia L Attending Unavailable Toño, Lidia L Attending Unavailable Toño, Lidia L Attending Unavailable Allergies Allergy Classification Reported Allergen(s) Allergy Type Date of Onset Reaction(s) Facility Nalbuphine (5 sources) Nalbuphine; Translations: [Nalbuphine] Drug Allergy 3 Nausea (finding) [facility] Comment on above: pt states when takin g it becamse dizzy and nauseated was pregant had to be rushed back to surgery. Simethicone (1 source) Simethicone; Translations: [simethicone] Drug Allergy Weal (disorder) [facility] (20 sources) Nalbuphine; Translations: [Unknown] Drug Allergy 3 [place] (20 sources) Nalbuphine; Translations: [nalbuphine] Drug Allergy 3 Nausea and Vomiting, Nausea (finding), Dizziness, GI intolerance, Nausea Only, Palpitations, Rash, Vomiting, Nausea, Tachycardia, Intolerance, Other: See Comments [facility] Comment on above: pt states when reid villaseñor it becamse dizzy and nauseated was pregant had to be rushed back to surgery. (5 sources) Nalbuphine; Translations: [Nubain] Drug Allergy 3 [facility] (20 sources) Silicone (simethicone) obsolete; Translations: [Silicone (simethicone) obsolete] Propensity to adverse reactions (disorder) Weal (disorder) [facility] Repository (20 sources) Silicone adhesive tape Propensity to adverse reactions to drug 3 [facility] (20 sources) Silicones; Translations: [SILICONE] Drug Allergy 3 [facility] (14 sources) Silicone Propensity to adverse reactions 3 [facility] (14 sources) Wound Dressing Adhesive Drug Intolerance 3 [facility] (9 sources) Adhesive agent; Translations: [ADHESIVE] Propensity to adverse reactions to drug 3 [facility] (6 sources) Silicone Propensity to adverse reactions to drug 3 [facility] (20 sources) Adhesive Tape; Translations: [ADHESIVE TAPE (ROSINS)] Allergy to substance 3 [facility] Medications Current Medications Medication Drug Class(es) Dates [...] Refill(s) 0 Start Date: 02/20/24 Status: Ordered BASEALEXIA VANPEN crea (20 sources) Start: 11-14-2024 BASE, LETYA VANPEN crea Apply 1 application to affected [...] symptoms, # 30 cap(s), Refills(s) 1, Pharmacy: [facility] [id number], 161.6, cm, 12/20/23 10:24:00 EDT, Height/Length Dosing, [...] Aminoglycoside Antibacterial, Corticosteroid Start: 06-13-2022 End: 06-23-2022 tguuizsf-ghjotygq-ysombewvqr s one-thonzonium (CORTISPORIN-TC) 3.3-3-10-0.5 MG/ML otic suspension [...] Active Start: 09-17-2024 take 1 tablet by [facility] once daily cyclobenzaprine (FLEXERIL) 10 mg tablet [...] / neomycin 3.5 mg/ml / polymyxin b 37132 unt/ml otic solution (3 sources) Aminoglycoside Antibacterial, Polymyxin-class Antibacterial, Corticosteroid Start: 06-14-2022 End: 06-24-2022 neomycin-polymyxin- hydrocortisone (CORTISPORIN) 3.5-09470-0 otic solution Indications: Acute otitis externa of [...] at 1130, Apply patch to back. The route aide's recommendations for the number of patches that can be applied within a 24-hour period varies from 1 to 4 times daily and the duration of application varies from 8 to 24 hours; refer to the route aide's labeling for product-specific recommendations. Start: 01-06-2024 End: [...] qPM, # 30 tab(s), Refills(s) 0, Pharmacy: [facility] [id number], 161.6, cm, 12/20/23 10:24:00 EDT, Height/Length Dosing, [...] Daily, # 30 tab(s), Refills(s) 0, Pharmacy: [facility] [id number], 161, cm, 09/16/24 15:32:00 EST, Height/Length Dosing, 77.1, kg, 09/16/24 15:32:00 EST, Weight Dosing Start Date: 09/16/24 Status: Ordered End: 06-09-2024 take 1 capsule by mouth once daily in the morning phentermine (ADIPEX-P) 37.5 MG capsule Take 1 capsule by mouth every morning. Max Daily Amount: 37.5 mg Active polyethylene glycol 3350 31492 mg powder for oral solution (1 source) [...] needed, # 16 tab(s), Refills(s) 1, Pharmacy: [facility] [id number], 161, cm, 06/04/24 9:57:00 EDT, Height/Length Dosing, [...] Inhibitor, Nonsteroidal Anti-inflammatory Drug Start: 02-23-2025 End: 04-06-2025 take 1 tablet by mouth once daily [...] tablet (10 sources) Biguanide Start: 02-16-2022 End: 01-02-2024 take 1 tablet by mouth once daily [...] tablet by mouth in the morning. Active Srwfn-5-QPB-EPA-Fish Oil (FISH OIL) 1,000 (120-180) mg cap (18 sources) End: 04-06-2025 take 1 capsule by mouth once daily Wwxin-7-DVT-EPA-Fish Oil (FISH OIL) 1,000 (120-180) mg cap Take 1 capsule by mouth once daily. 04/06/2025 Discontinued take 1 capsule by mouth once gideon ly Mzqei-3-MIZ-EPA-Fish Oil (FISH OIL) 1,000 (120-180) mg cap [...] Start: 08-19-2021 take 1 capsule by mo [facility] once daily prazosin (MINIPRESS) 2 MG capsule Indications: PTSD (post-traumatic stress disorder) Take 1 capsule by mouth nightly 90 capsule 1 08/19/2021 Active Start: 05-26-2021 take 1 capsule by nh ut once daily prazosin (MINIPRESS) 1 MG [...] bedtime, # 30 tab(s), Refills(s) 2, Pharmacy: [facility] [id number], 161.6, cm, 05/18/23 10:58:00 EDT, Height/Length Dosing, [...] Chronic Other nutritional; endocrine; and metabolic disorders (17 sources) Obesity; Translations: [Obesity, unspecified] Onset: 03-23-2023 [...] 08-18-2022 08-28-2018 Episodic Calculus of urinary tract (14 sources) Kidney stone; Translations: [Calculus of kidney] Onset: 03-23-2023 03-23-2023 Episodic Cancer of cervix (14 sources) Cervicovaginal cytology: Low grade squamous intraepithelial [...] neoplasm] Onset: 03-23-2023 03-23-2023 Episodic Other aftercare (14 sources) Postoperative visit; Translations: [Encounter for other [...] ear] 01-09-2024 Episodic Other female genital disorders (14 sources) Pruritus of vagina; Translations: [Other specified noninflammatory disorders of vagina] Onset: 03-23-2023 03-23-2023 Episodic Other gastrointestinal disorders (14 sources) Constipation; Translations: [Other constipation] Onset: 02-14-2024 [...] Translations: [Nasal congestion] 01-09-2024 Episodic Ovarian cyst (14 sources) Complex ovarian cyst; Translations: [Other ovarian [...] Test Name Value Interpretation Reference Range Facility US PELVIS W/ TRANSVAGINALon 05-08-2025 [place] [address] Ultrasound Report Signed Patient: ASHLEE JLALOH MR#: [id number] : 1985 Acct:[id number] Age/Sex: 40 / F ADM Date: 05/07/25 Loc: US Attending Dr: Tommie Mccann D.O. Ordering Physician: Tommie Mccann D.O. Date of Service: 05/07/25 Procedure(s): US pelvis w/ transvaginal Accession Number(s): [id number] cc: Tommie Mccann D.O.; LIDIA KEYES [address] [address] Patient Name: ASHLEE JALLOH MRN: [facility]:[id number] date: 1985 Sex: F Assigned Patient Location: US Current Patient Location: Accession/Order Number: [id number] Exam Date: 05/07/2025 12:56 Report Date: 05/08/2025 00:41 At the request of: TOMMIE MCCANN DO Procedure: US pelvis w/ transvaginal EXAMINATION TYPE: US pelvis w/ transvaginal Grayscale, color scale Doppler, vascular duplex analysis of the bilateral ovaries DATE OF EXAM ORDERED: 05/07/2025 1:25 PM HISTORY: Pelvic pain in female, hysterectomy COMPARISON: 07/06/2022 TECHNIQUE: Realtime Transvaginal and Transabdominal imaging was performed. Transvaginal imaging was utilized to better evaluate the ovaries and the endometrial stripe. Grayscale, color scale Doppler, vascular duplex analysis of the bilateral ovaries was performed to assess blood flow. FINDINGS: Ovaries: There is a thick-walled complex cysts in the left ovary measuring 3.8 x 3.3 x 2.9 cm. Right Ovary measurements: 2.7 x 2.8 x 2.0 cm Left Ovary measurements: 5.4 x 4.2 x 3.2 cm No abnormal adnexal mass is seen. No free fluid in the pelvic cul-de-sac. Vascular duplex analysis of the bilateral ovaries demonstrates normal blood flow without evidence of ovarian ischemia. US/US pelvis w/ transvaginal IMPRESSION: There is a thick-walled complex cysts in the left ovary measuring 3.8 x 3.3 x 2.9 cm. No evidence of ovarian ischemia. Impression dictated by: Dalton Gonzalez M.D. 05/08/2025 12:41 AM Dictation Location: [place] [address] Electronically authenticated by: [id number] Y Date: 05/08/2025 00:41 Dictated By: Dalton Gonzalez M.D. Signed By: 05/08/2543 DD/ TD/TT: Resource Agent: [facility] Radiology, Radiologist, - 05/08/2025 [place] [address] Ultrasound Report Signed Patient: ASHLEE JALLOH MR#: [id number] : 1985 Acct:[id number] Age/Sex: 40 / F ADM Date: 05/07/25 Loc: US Attending Dr: Tommie Mccann D.O. Ordering Physician: Tommie Mccann D.O. Date of Service: 05/07/25 Procedure(s): US pelvis w/ transvaginal Accession Number(s): [id number] cc: Tommie Mccann D.O.; LIDIA KEYES [place] [address] Patient Name: ASHLEE JALLOH MRN: [facility]:[id number] date: 1985 Sex: F Assigned Patient Location: Current Patient Location: Accession/Order Number: [id number] Exam Date: 05/07/2025 12:56 Report Date: 05/08/2025 00:41 At the request of: TOMMIE MCCANN DO Procedure: US pelvis w/ transvaginal EXAMINATION TYPE: US pelvis w/ transvaginal Grayscale, color scale Doppler, vascular duplex analysis of the bilateral ovaries DATE OF EXAM ORDERED: 05/07/2025 1:25 PM HISTORY: Pelvic pain in female, hysterectomy COMPARISON: 07/06/2022 TECHNIQUE: Realtime Transvaginal and Transabdominal imaging was performed. Transvaginal imaging was utilized to better evaluate the ovaries and the endometrial stripe. Grayscale, color scale Doppler, vascular duplex analysis of the bilateral ovaries was performed to assess blood flow. FINDINGS: Ovaries: There is a thick-walled complex cysts in the left ovary measuring 3.8 x 3.3 x 2.9 cm. Right Ovary measurements: 2.7 x 2.8 x 2.0 cm Left Ovary measurements: 5.4 x 4.2 x 3.2 cm No abnormal adnexal mass is seen. No free fluid in the pelvic cul-de-sac. Vascular duplex analysis of the bilateral ovaries demonstrates normal blood flow without evidence of ovarian ischemia. US/US pelvis w/ transvaginal IMPRESSION: There is a thick-walled complex cysts in the left ovary measuring 3.8 x 3.3 x 2.9 cm. No evidence of ovarian ischemia. Impression dictated by: Dalton Gonzalez M.D. 05/08/2025 12:41 AM Dictation Location: [place] [address] Electronically authenticated by: [id number] Y Date: 05/08/2025 00:41 Dictated By: Dalton Gonzalez M.D. Signed By: 05/08/2543 DD/ TD/TT: Resource Agent: [facility] Radiology Study observation (narrative) [facility] US PELVIS W/ TRANSVAGINALOrd ered By: Radiologist Radiology on 05-08-2025 [facility] Work Phone: MM TOMOSYNTHESIS SCREENING B Ion 05-07-2025 [place] [address] Mammography Report Signed Patient: ASHLEE JALLOH MR#: [id number] : 1985 Acct:[id number] Age/Sex: 40 / F ADM Date: 05/07/25 Loc: US Attending Dr: Tommie Mccann D.O. Ordering Physician: Tommie Mccann D.O. Results: Date of Service: 05/07/25 Follow Up: Procedure(s): MM tomosynthesis screening BI Accession Number(s): [id number] cc: Tommie Mccann D.O.; LIDIA KEYES Patient Name: ASHLEE JALLOH MR#: [id number] : 1985 Exam Date: 05/07/2025 Ordering Doctor: DR TOMMIE MCCANN . RADIOLOGY REPORT PROCEDURE: MM TOMOSYNTHESIS SCREENING BI COMPARISON: MG MAMM GLENDA DIAG W CAD, 08/05/2019. INDICATIONS: Screening for malignant neoplasm Calculator Name NCI Breast Cancer Risk Assessment Tool 5 Year Breast Cancer Risk 1.10% Lifetime Breast Cancer Risk 18.30% Personal Breast Cancer No Personal Ovarian Cancer No Treatments partial hysterectomy Family Cancers Mother with breast cancer at age 353. LOCATION: [facility] BREAST COMPOSITION: The breasts are heterogeneously dense, which may obscure small masses. FINDINGS: RIGHT BREAST: No significant suspicious finding. LEFT BREAST: No significant suspicious finding. DIAGNOSTIC CATEGORY 1--NEGATIVE. RECOMMENDATIONS: ROUTINE MAMMOGRAM AND CLINICAL EVALUATION IN 12 MONTHS. Dictated by: Aiden Foote DO on 05/07/2025 at 16:18 Approved by: Aiden Foote DO on 05/07/2025 at 16:19 Dictated By: Aiden Foote D.O. Signed By: 05/07/251619 DD/ 18 TD/TT: Resource Agent: [facility] Radiology, Radiologist, - 05/07/2025 [place] [address] Mammography Report Signed Patient: ASHLEE JALLOH MR#: [id number] : 1985 Acct:[id number] Age/Sex: 40 / F ADM Date: 05/07/25 Loc: US Attending Dr: Tommie Mccann D.O. Ordering Physician: Tommie Mccann D.O. Results: Date of Service: 05/07/25 Follow Up: Procedure(s): MM tomosynthesis screening BI Accession Number(s): [id number] cc: Tommie Mccann D.O.; LIDIA KEYES Patient Name: ASHLEE JALLOH MR#: [id number] : 1985 Exam Date: 05/07/2025 Ordering Doctor: DR TOMMIE MCCANN . RADIOLOGY REPORT PROCEDURE: MM TOMOSYNTHESIS SCREENING BI COMPARISON: MG MAMM GLENDA DIAG W CAD, 08/05/2019. INDICATIONS: Screening for malignant neoplasm Calculator Name NCI Breast Cancer Risk Assessment Tool 5 Year Breast Cancer Risk 1.10% Lifetime Breast Cancer Risk 18.30% Personal Breast Cancer No Personal Ovarian Cancer No Treatments partial hysterectomy Family Cancers Mother with breast cancer at age 353. LOCATION: [facility] BREAST COMPOSITION: The breasts are heterogeneously dense, which may obscure small masses. FINDINGS: RIGHT BREAST: No significant suspicious finding. LEFT BREAST: No significant suspicious finding. DIAGNOSTIC CATEGORY 1--NEGATIVE. RECOMMENDATIONS: ROUTINE MAMMOGRAM AND CLINICAL EVALUATION IN 12 MONTHS. Dictated by: Aiden Foote DO on 05/07/2025 at 16:18 Approved by: Aiden Foote DO on 05/07/2025 at 16:19 Dictated By: Aiden Foote D.O. Signed By: 05/07/251619 DD/ 1619 TD/TT: Resource Agent: [facility] Radiology Study observation (narrative) [facility] MM TOMOSYNTHESIS SCREENING B IOrdered By: Radiologist Radiology on 05-07-2025 [facility] Work Phone: Ambulatory Visit Summaryon 0 04-30-2025 Ambulatory Visit [...] 2:20 PM EDT With: Lidia Jones Where: [place] [id number]- Medications What How Much When Why Instructions [...] signed up for this yet, please contact [employer] at [phone] to get signed up today. Language Information Language assistance services are available as needed. [facility] Family Medicine Office/Clini c Noteon 04-30-2025 Family [...] Daily, # 30 tab(s), Refills(s) 0, Pharmacy: [facility] [id number], 161, cm, 04/30/25 13:28:00 EDT, Height/Length Dosing, 88.8, kg, 04/30/25 13:28:00 EDT, Weight Dosing Drug Screen POC 47568 2. Nonsmoker (Z78.9: Other specified health status) continue not smoking Ordered: phentermine, 37.5 mg = 1 tab(s), Oral, Daily, # 30 tab(s), Refills(s) 0, Pharmacy: [facility] [id number], 161, cm, 04/30/25 13:28:00 EDT, Height/Length Dosing, 88.8, kg, 04/30/25 13:28:00 EDT, Weight Dosing 3. BMI 34.0-34.9,adult (Z68.34: Body mass index [BMI] 34.0-34.9, adult) BMI education Ordered: phentermine, 37.5 mg = 1 tab(s), Oral, Daily, # 30 tab(s), Refills(s) 0, Pharmacy: [facility] [id number], 161, cm, 04/30/25 13:28:00 EDT, Height/Length Dosing, [...] Result POC: (more content not included)... Normal [facility] Comment on above: Result Comment: Elec tronically Signed By: Lidia Jones\.br\Date and Time Signed: 04/30/25 13:59 EDT Ambulatory Visit Summaryon 0 04-14-2025 Ambulatory Visit Summary Ambulatory Visit Summary ASHLEE JALLOH :1985 Visit Date:04/14/2025 Ambulatory Visit Instructions Your [...] 1:20 PM EDT With: Lidia Jones Where: [facility] [address] [place] [address]- Medications What How Much When Why Instructions [...] signed up for this yet, please contact [employer] at [phone] to get signed up today. Language Information Language assistance services are available as needed. [facility] Family Medicine Office/Clini c Noteon 04-14-2025 Family [...] for 7 day(s), 14 tab(s), Refill(s) 0, [email or web address] [id number], 161, cm, 04/14/25 10:52:00 EDT, Height/Length Dosing, 87, kg, 04/14/25 10:52:00 EDT, Weight Dosing ciprofloxacin-dexamet hasone otic, 4 drop(s), Otic, BID for 7 day(s), 7.5 mL, Refill(s) 0, [facility] the left ear, [id number], 161, cm, 04/14/25 10:52:00 EDT, Height/Length Dosing, 87, kg, 04/14/25 10:52:00 EDT, Weight Dosing 2. Left ear hearing loss (H91.92: Unspecified hearing loss, left ear) - Continue with oral antibiotics and ear drops as needed for recurrent infections. Ordered: amoxicillin-clavulana te, 1 tab(s), Oral, q12hr for 7 day(s), 14 tab(s), Refill(s) 0, [email or web address] [id number], 161, cm, 04/14/25 10:52:00 EDT, Height/Length Dosing, 87, kg, 04/14/25 10:52:00 EDT, Weight Dosing ciprofloxacin-dexamet hasone otic, 4 drop(s), Otic, BID for 7 day(s), 7.5 mL, Refill(s) 0, Instill in the left ear, [facility] [id number], 161, cm, 04/14/25 10:52:00 EDT, Height/Length Dosing, 87, kg, 04/14/25 10:52:00 EDT, Weight Dosing 3. BMI 33.0-33.9,adult (Z68.33: Body mass index [BMI] 33.0-33.9, adult) BMI 33.56 Ordered: amoxicillin-clavulana te, 1 tab(s), Oral, q12hr for 7 day(s), 14 tab(s), Refill(s) 0, [facility] [id number], 161, cm, 04/14/25 10:52:00 EDT, Height/Length Dosing, 87, kg, 04/14/25 10:52:00 EDT, Weight Dosing ciprofloxacin-dexamet hasone otic, 4 drop(s), Otic, BID for 7 day(s), 7.5 mL, Refill(s) 0, [facility] the left ear, [facility] [id number], 161, cm, 04/14/25 10:52:00 EDT, Height/Length Dosing, [...] for 7 day(s), 14 tab(s), Refill(s) 0, [facility] [id number], 161, cm, 04/14/25 10:52:00 EDT, Height/Length Dosing, 87, kg, 04/14/25 10:52:00 EDT, Weight Dosing ciprofloxacin-dexamet hasone otic, 4 drop(s), Otic, BID for 7 day(s), 7.5 mL, Refill(s) 0, Instill in the left ear, [facility] [id number], 161, cm, 04/14/25 10:52:00 EDT, Height/Length Dosing, 87, kg, 04/14/25 10:52:00 EDT, Weight Dosing (more content not included)... Normal [facility] Comment on above: Result Comment: Elec tronically Signed By: ELIZABETH APODACA CNP\.taniya\Date and Time Signed: 04/14/25 11:15 EDT Norm 04-06-2025 CNOV Office Visit (TAHIRAN ) ASHLEE JALLOH ([id number]) 1985 F Date Time Provider Department 04/06/25 [...] sensitivity, particularly (more content not included)... Normal [facility] EMG(NEURO/NI)on 03-26-2025 Results can be seen in attached scanned documents. If you are a patient reviewing this test result, call the doctor who ordered the test with any questions. [facility] CNOVon 03-10-2025 CNOV Office Visit (SPHTB) SHUBHAMASHLEE Gregory ([id number]) 1985 F Date Time Provider Department 03/10/25 1:[address] [facility] During your visit today, we recorded the following information about you: Delia Mckeon LPN 03/10/2025 4:27 PM Signed Three sutures removed for two incisions anterior hip. Pt tolerated. No redness no drainage noted to incisions. New steri strips applied. Madyson Villafuerte PA-C 03/10/2025 4:27 PM Signed Post Op Follow Up Visit Ashlee Gregory BoShubham returns 15 days s/p 1. right hip arthroscopy 2. Labral repair CPT 41316 3. Femoroplasty CPT 00256 4. Acetabuloplasty CPT 26417 5. Capsular Closure DOS: 02/23/25 Denies interim [...] - can (more content not included)... Normal [facility] CNOVon 03-04-2025 CNOV Office Visit (SPNMMN ) ASHLEE JALLOH ([id number]) 1985 F Date Time Provider Department 03/04/25 10:40 AM JOHNATHAN HAAS [facility] During your visit today, we recorded [...] mg by mouth once daily as needed. Yfxgo-4-USP-EPA-Fish Oil (FISH OIL) 1,000 (120-180) mg cap [...] posterior fusion (more content not included)... Normal [facility] Velia 02-26-2025 CNPN Telephone (ORQ) ASHLEE JALLOH ([id number]) 1985 F Date Time Provider Department 02/26/25 DENIZ ENCARNACION ORQ During your visit today, we recorded the following information about you: Roya Rosa R 02/26/2025 2:44 PM Signed Pnt lvm her [...] welts Date Reviewed: 02/23/2025 Reviewed by: Nikia Mark, RN - Fully Assessed Reason for Visit: [...] times a day for 90 days. - Eiqxq-3-GCM-EPA-Fish Oil (FISH OIL) 1,000 (120-180) mg cap [...] Encounter Status:Closed by NOEMI FRANCIS on 02/26/25 [facility] ANES POSTPROC EVALon 025 ANES POSTPROC EVAL HNO ID: [id number] Author: JAS YIP III, MD Service: Anesthesiology Author Type: Anesthesiologist Type: Anesthesia Postprocedure Evaluation Filed: 02/23/2025 16:28 Note Text: POST ANESTHESIA EVALUATION NOTE : 1985 Procedure Summary Date: 02/23/25 Room / Location: [id number] / [facility] Anesthesia Start: 733 Anesthesia Stop: 929 [...] February 23, 2025 TIME: 4:28 PM CSN: [id number] [facility] ANES PRE-OPon 02-23-2025 ANES PRE-OP HNO ID: [id number] Author: JAS YIP III, MD Service: Anesthesiology Author Type: Anesthesiologist Type: Anesthesia Preprocedure Evaluation Filed: 02/23/2025 07:16 Note Text: ANESTHESIOLOGY DAY OF SURGERY NOTE : 1985 Procedure Information Date/Time: 02/23/2530 Procedure: ARTHROSCOPY HIP W/ LABRAL REPAIR (Right: [...] and consent discussed: yes. Patient / Responsible Republican agrees to proceed: yes Patient / Surrogate [...] times a day for 90 days. - Fazdi-2-GEI-EPA-Fish Oil (FISH OIL) 1,000 (120-180) mg cap [...] February 23, 2025 TIME: 7:16 AM CSN: [id number] [facility] HISTORY PHYSICALon HISTORY PHYSICAL HNO ID: [id number] Author: DENIZ ENCARNACION MD Service: Orthopaedic Surgery Author Type: Physician Type: H&P Filed: 02/23/2025 06:44 Note Text: UPDATED HISTORY AND PHYSICAL EXAMINATION SERVICE DATE: 02/23/2025 SERVICE TIME: 0640 PHYSICAL EXAM MUST BE COMPLETED ON ADMISSION [...] DATE: February 23, 2025 TIME: 6:44 AM [facility] NURSING PROGon 02-23-2025 NURSING PROG HNO ID: [id number] Author: NIKIA MARK RN Service: Nursing Author Type: Registered Nurse Type: Nursing Progress Note Filed: 02/23/2025 10:44 Note Text: Patient beginning to wake up and attempting to spit out oral airway. Oral airway removed at this time and patient tolerating well. Vital signs stable, will continue to monitor. [facility] NURSING PROG HNO ID: [id number] Author: NIKIA MARK RN Service: Nursing Author [...] Signed By: Nikia Mark RN In Department: [facility] SURGERY [facility] NURSING PROG HNO ID: [id number] Author: WEI TAYLOR RN Service: ? Author [...] Signed By: Wei Taylor RN In Department: [facility] SURGERY [facility] OPERATIVE NOon 02-23-2025 OPERATIVE NO HNO ID: [id number] Author: DENIZ ENCARNACION MD Service: Orthopaedic Surgery Author Type: Physician Type: Operative Report Filed: 02/23/2025 09:22 Note Text: [facility] Operative Report ORIGINATOR: MD Ashlee Posadas Gregory Jalloh ACCTNUM: SERVICE: ORTHO LOCATION: -[id number] ATTENDING PHYSICIAN: Deniz Encarnacion MD DATE OF PROCEDURE: February 23, 2025 SURGEON: Deniz Encarnacion MD BLOWER AND COMPRESSOR ASSEMBLER: Elmer Edwards MD PREOPERATIVE DIAGNOSIS: Right hip acetabular labral tear 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 right hip arthroscopy 2. Labral repair CPT 91198 3. Femoroplasty CPT 14571 4. Acetabuloplasty CPT 01391 5. Capsular Closure ANESTHESIA: General LOCATION: [facility] [place]. OPERATIVE INDICATIONS: The patient is a pleasant [...] OF OPERATION: The patient was brought to [facility] operative [address] on February 23, 2025, [...] team, confirming the site and extremity, ensuring law firm receptionist of 2gm of IV Ancef, the hip [...] FLUIDS: See anesth (more content not included)... [facility] NYLAP,APTIMA HPV,AGE GDLNon 06 -14-2025 AGE GDLN ACOG TESTING Note . [facility] Comment on above: TESTS RESULT FLAG UN ITS REF RANGE LAB Clinician Provided Cytology Information Source.............Vagina No. of containers..01 ThinPrep Vial Age Algo ACOG Erika... FLAG LEGEND: L-Low Normal,H-High Normal,LL-Alert Low,HH-Alert High <-Panic Low,>-Panic High,A-Abnormal,AA-Critical Abnormal Performed at: 01 =G [address] [address] Ambar Sandoval MD, HPV APTIMA Negative Negative [facility] Comment on above: This nucleic acid am plification test detects fourteen high- risk HPV types (16,18,31,33,35,39,45,51,52,56,58,59,66,68) without differentiation. Performed at: =[address] [id number] Humanities Department Chair: Ambar Sandoval MD, Phone: [phone] Performed at: - [address] [id number] Humanities Department Chair: Ambar Sandoval MD, Phone: [phone] IGP, APTIMA HPV, RFX 16/18,45 Note . [facility] Comment on above: TESTS RESULT FLAG UN ITS REF RANGE LAB DIAGNOSIS: 02 NEGATIVE FOR INTRAEPITHELIAL LESION OR MALIGNANCY. Specimen adequacy: 02 Satisfactory for evaluation. Performed by: 02 Marcella Hernández School Program Director ([facility]) . 02 Note: Note 02 [...] Low,>-Panic High,A-Abnormal,AA-Critical Abnormal Performed at: [address] [address] Ambar Sandoval MD, SP[facility] HISTORY PHYSICALon HISTORY PHYSICAL HNO ID: [id number] Author: BLESSING HORVATH PA-C Service: ? Author Type: Physician [employer] T[employer] Checker Type: H&P Filed: 02/16/2025 08:14 Note Text: [place] [facility]-Anesthesia [facility] HISTORY [...] COVID-19 original vaccine, age 12+ yr, monovalent ([employer] - [facility]) 02/04/2021 Imm Admin: COVID-19 original vaccine, age 12+ yr, monovalent ([employer] - [facility]) REVIEW OF SYSTEMS: PAIN ASSESSMENT: General: No weight loss, malaise or fevers. Neuro: No history of TIA's, stroke, MOLD REPAIR TECHNICIAN tumor, impaired sensorium, hemiplegia, paraplegia or quadraplegia. No neurological symptoms or problems. Respiratory: No history of current cough or dyspnea, or pneumonia in the past 6 weeks. No history of respiratory/pulmonary symptoms or problems. Cardiovascular: No history of HTN requiring medication, no history of angina, C (more content not included)... Normal [facility] Urinalysis macro (dipstick) panel (U)on 01-28-2025 Bilirubin, UA Negative Negative - 4(70) +++ mg/dL [facility] Blood, UA Positive Negative - 50 Stef/mcL [facility] Comment on above: trace-intact Clarity, UA Clear [facility] Color, UA Yellow [facility] Glucose, UA Negative Negative - 1999(110) ++++ mg/dL [facility] Interpretation and review of laboratory results Abnormal [facility] Ketones, UA Negative Negative - 160(16) ++++ mg/dL [facility] Leukocytes, UA Negative Negative - 500+++ Scotty/mcL [facility] Nitrite, UA Negative Negative - Positive [facility] pH, UA 6.5 5 - 9 [facility] Comment on above: 6.0 Protein, UA Negative Negative - 1999(20) ++++ mg/dL [facility] Spec Grav, UA 1.025 1 - 1.03 [facility] Comment on above: 1.020 Urobilinogen, UA 0.2 0.2 - 12 mg/dL [facility] CNPNon 01-16-2025 [facility] Telephone (ORQ) ASHLEE JALLOH ([id number]) 1985 F Date Time Provider Department 01/16/25 DENIZ ENCARNACION ORQ During your visit today, we recorded the following information about you: Roya Rosa 01/16/2025 2:00 PM Signed Images in [facility] PLAN: 1. Medication: Continue current medications. [...] is able. Tessie Leggett, AT, ATC Noemi Francis, AT 01/26/2025 3:48 PM Signed Spoke with [...] with the patient and also sent via ciValuet. All questions were answered. Tessie Leggett, AT, ATC Allergies As of Date: 01/16/2025 [...] times a day for 90 days. - Jiela-6-MKY-EPA-Fish Oil (FISH OIL) 1,000 (120-180) mg cap [...] Status:Closed by NOEMI FRANCIS on 01/26/25 Normal [facility] Family Medicine Office/Clini c Noteon 01-16-2025 Family Medicine [...] Daily, # 30 tab(s), Refills(s) 0, Pharmacy: [facility] [id number], 161, cm, 01/16/25 14:25:00 EDT, Height/Length Dosing, 86.3, kg, 01/16/25 14:25:00 EDT, Weight Dosing 2. Encounter for weight management (Z76.89: Persons encountering health services in other specified circumstances) pt is up 20 pounds since September. will restart adipex. medication agreement signed. RTC 4 weeks Ordered: phentermine, 37.5 mg = 1 tab(s), Oral, Daily, # 30 tab(s), Refills(s) 0, Pharmacy: [facility] [id number], 161, cm, 01/16/25 14:25:00 EDT, Height/Length Dosing, [...] influenza virus vaccine, inactivated 07/14/2019 Recorded Normal [facility] Comment on above: Result Comment: Elec tronically Signed By: Lidia Jones\.taniya\Date and Time Signed: 01/16/25 15:42 EDT Provider Letteron 01-16-2025 Provider Letter Provider Letter January 16, 2025 ASHLEE JALLOH [address] [place] [address] : 1985 To Whom It May Concern, Please excuse above patient from work due to medical Date of Illness: From: _01-16-25 To: _01-16-25 May Return to Work On: 01-19-25 Restrictions: _ Comments: _ Sincerely, Family Medicine [address] [address] [facility] CNOVon 01-07-2025 CNOV Office Visit (SPRTSO ) ASHLEE JALLOH ([id number]) 1985 F Date Time Provider Department 01/07/25 [...] hip pain. 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 No past surgical history on file. Current Outpatient Medications Medication Sig Dispense Refill pregabalin (LYRICA) 50 mg capsule Take 1 capsule by mouth three times a day for 90 days. 90 capsule 2 Pflyr-4-CXO-EPA-Fish Oil (FISH OIL) 1,000 (120-180) mg cap [...] she would (more content not included)... Normal [facility] CNOVon 01-05-2025 CNOV Office Visit (ORAVON ) ASHLEE JALLOH ([id number]) 1985 F Date Time Provider Department 01/05/25 2:45 PM URIEL GUZMÁN During your visit today, we recorded the following information about you: Weight 84.4 kg Uriel Guzmán MD 01/05/2025 3:26 PM Signed CONSULT ORTHOPAEDIC: HIP PRIMARY CARE PHYSICIAN: No primary care provider on file. REFERRING PROVIDER: Johnathan Haas [facility] Chinyere lizette [facility] [address] ASSESSMENT AND PLAN Impression: Right hip and [...] discharge for a Primary total Hip replacement. Aslhee's estimated Length of Stay is . Ashlee's [...] See HPI. (more content not included)... Normal [facility] CNOV Office Visit (PAMRIKKI ) ASHLEE JALLOH ([id number]) 1985 F Date Time Provider Department 01/05/25 2:00 PM RISHABH HUANG During your visit today, we recorded the following information about you: Pulse Blood pressure Weight 72/minute 119/63 81.6 kg Rishabh Huang MD 01/05/2025 3:00 PM Signed [facility] Pain Management Department Consultation Date: January 05, 2025 - Referring physician: Johnathan Haas [address] [facility] [address] Ashlee Jalloh is seen in consultation requested [...] family and friends Overall Impression from Dr. Nath: Ashlee Jalloh is a 39 y.o. female [...] in fibromyal (more content not included)... Normal [facility] XR HIP 3V PELV+ AP/LAT RTon 01-05-2025 [...] acute bony abnormality or significant hip osteoarthritis. Resource Agent[facility] Transcribe Date/Time: Jan 05 2025 9:25P Dictated by : FREDDY HENRIQUEZ MD This examination was interpreted and the report reviewed and electronically signed by: FREDDY HENRIQUEZ MD on Jan 05 2025 9:26PM EST [id number] Normal [facility] XR Pelvis and Hip - right AP and Lateral frogon 01-05-2025 IMPRESSION: No acute bony abnormality or significant hip osteoarthritis. Resource Agent: PSYCHIATRIC Transcribe Date/Time: Jan 05 2025 9:25P Dictated by : FREDDY HENRIQUEZ MD This examination was interpreted and the report reviewed and electronically signed by: FREDDY HENRIQUEZ MD on Jan 05 2025 9:26PM EST DIVISION OF RADIOLOGY * * *Final Report* [...] pubis are intact. DIVISION OF RADIOLOGY [facility] * * *Final Report* * [...] acute bony abnormality or significant hip osteoarthritis. Resource Agent: EDGAR Transcribe Date/Time: Jan 05 2025 9:25P Dictated by : FREDDY HENRIQUEZ MD This examination was interpreted and the report reviewed and electronically signed by: FREDDY HENRIQUEZ MD on Jan 05 2025 9:26PM EST [facility] Radiology Study observation (narrative) [facility] XR Pelvis and Hip - right AP and Lateral frogOrdered By: Ccf Provider on 01-05-[address] [facility] [address] LUMBAR SPINE WO IVCONon 0 12-26-2024 [...] lumbar spine as above in more detail. Resource Agent: PSCB Transcribe Date/Time: Dec 30 2024 10:05A Dictated by : ROSSANA PETER MD This examination was interpreted and the report reviewed and electronically signed by: ROSSANA PETER MD on Dec 30 2024 11:22AM EST [id number] Normal [facility] CNCOon 12-19-2024 CNCO Letter Text Normal [facility] XR LUMBAR SPINE (2-3 VIEWS)o n 12-19-2024 [...] Ab Escobar MD 12/19/24 Final result Normal [facility] XR Lumbar spine 2 or 3 Views on 12-19-2024 Status post L4-5 posterior spinal fusion in unchanged alignment. No evidence of hardware complication. Mild disc height loss at L5-S1 appears unchanged. [facility] CONSOLIDATED EXAMINATION: 3 XRAY VIEWS OF THE LUMBAR SPINE 12/19/2024 11:53 am COMPARISON: 09/01/2023 HISTORY: ORDERING SYSTEM PROVIDED HISTORY: Low back pain TECHNOLOGIST PROVIDED HISTORY: Low back pain FINDINGS: Status post posterior spinal fusion and laminectomy at L4-5. Hardware appears intact. Disc spacer remains in satisfactory position. Mild disc space narrowing at L5-S1. Disc spaces otherwise maintained. Alignment within normal limits. [facility] RIS CONSOLIDATED Ab Escobar MD - 12/19/2024 EXAMINATION: [...] disc height loss at L5-S1 appears unchanged. [facility] Radiology Study observation (narrative) [facility] XR THORACIC SPINE (2 VIEWS)o n 12-19-2024 [...] Ab Escobar MD 12/19/24 Final result Normal [facility] XR Thoracic spine 2 Viewson 12-19-2024 No acute abnormality identified. Mild degenerative changes. [facility] RIS CONSOLIDATED EXAMINATION: 3 XRAY VIEWS OF THE THORACIC SPINE 12/19/2024 11:53 am COMPARISON: None. HISTORY: ORDERING SYSTEM PROVIDED HISTORY: back pain, NKI TECHNOLOGIST PROVIDED HISTORY: back pain, NKI FINDINGS: Vertebral body heights maintained. Normal alignment. No significant disc space narrowing. Mild degenerative endplate spurring in the midthoracic spine. [facility] RIS CONSOLIDATED Ab Escobar MD - 12/19/2024 EXAMINATION: 3 XRAY VIEWS OF THE THORACIC SPINE 12/19/2024 11:53 am COMPARISON: None. HISTORY: ORDERING SYSTEM PROVIDED HISTORY: back pain, NKI TECHNOLOGIST PROVIDED HISTORY: back pain, NKI FINDINGS: Vertebral body heights maintained. Normal alignment. No significant disc space narrowing. Mild degenerative endplate spurring in the midthoracic spine. IMPRESSION: No acute abnormality identified. Mild degenerative changes. [facility] Radiology Study observation (narrative) [facility] XR Thoracic spine 2 ViewsOrd ered By: Ab Escobar on 12-19-2024 Analia Hammond [employer] Phone: Velia 12-18-2024 HERNANDEZN Telephone (MELISSAAVN) SHUBHAMASHLEE ([id number]) 1985 F Date Time Provider Department 12/18/24 [...] any questions about your appointment, please call [phone] and ask for pain management. Thank You, [...] patient call Prescriptions as of 12/18/2024 - Agdlg-2-JCI-EPA-Fish Oil (FISH OIL) 1,000 (120-180) mg cap [...] Encounter Status:Closed by HEIDY NUNEZ on 12/18/24 [facility] Telephone (REMS31) ASHLEE JALLOH ([id number]) 1985 F Date Time Provider Department 12/17/24 JOHNATHAN HAAS [facility] During your visit today, we recorded the following information about you: Patricia Salazar 12/17/2024 9:06 AM Signed Ashele is calling Johnathan Haas MD today asking for a work noted from when she was seen on 12/15 to be faxed over to her work. F: [phone] Attn: Michael Patient has been identified by name and birthdate. Duration of symptoms: N/A Person calling: self Call patient at: at home [phone] (home) Was an appointment scheduled: No Closing statement: Results or non-symptom based questions: Thank you for calling [facility], your call will be returned within the next business day. Johnathan Foley MD 12/19/2024 4:31 PM Signed letter in [facility] Please fax Allergies As of Date: 12/17/2024 [...] Fully Assessed Prescriptions as of 12/19/2024 - Iyuzw-1-MRA-EPA-Fish Oil (FISH OIL) 1,000 (120-180) mg cap [...] Status:Closed by JOHNATHAN HAAS on 12/19/24 Normal [facility] CNOVon 12-15-2024 CNOV Office Visit (REHAV) ASHLEE JALLOH ([id number]) 1985 F Date Time Provider Department 12/15/24 3:00 PM JOHNATHAN HAAS REHAV During your visit today, we recorded the following information about you: Pulse Blood pressure Weight 73/minute 110/65 82 kg Johnathan Haas MD 12/15/2024 6:30 PM Signed [facility] Self-referral Complains of whole [...] tear would like to see orthopedic at [facility] Chronic depression PTSD would like to establish with psych at [facility] No recent injury or fall She is [...] 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 Current Outpatient Medications Medication Sig Vuvts-4-KGG-EPA-Fish Oil (FISH OIL) 1,000 (120-180) mg cap [...] Regular Ovi (more content not included)... Normal [facility] Medicine Office/Clini c Noteon 12-05-2024 Family Medicine Office/Clinic Note Family Medicine Office/Clinic Note HPI Staff Ashlee is a 39 year old female presenting for ER follow up ER followup: PHQ-9: 19 Hospital: [facility] Visit date: 12/03/24 Symptoms the patient [...] Daily, # 90 tab(s), Refills(s) 1, Pharmacy: [facility] [id number], 161, cm, 10/06/24 8:53:00 EST, Height/Length Dosing, [...] Recorded 2023-05-18: T (more content not included)... [facility] Comment on above: Result Comment: Elec tronically Signed By: Lidia Jones\.br\Date and Time Signed: 12/05/24 14:53 EDT Provider Letteron 12-05-2024 Provider Letter Provider Letter December 05, 2024 [address]LEE [address]CH [address] [place] [id number] : 1985 To Whom It May Concern, Please excuse above patient from work. Date of Illness: 12/05/2024 May Return to Work On: 12/08/2024 Sincerely, Family Medicine [id number] [place] [address] [facility] Brain Natri. Peptideon 12-03 Pro-BNP <36 Normal 0-125 [facility] Comment on above: Performed By: #### C DP, TROPI, CP, MG, BNP #### [facility] [address] [place] [address] Humanities Department Chair: Haley Mccall MD Brain Natriuretic Peptideon 12-03-2024 Natriuretic peptide B (Bld) [Mass/Vol] pg/mL 0 - 125 pg/mL [facility] CBC with Auto Differentialon 12-03-2024 Basophils (Bld) [#/Vol] 0.04 10*3/uL [facility] Basophils/100 WBC (Bld) 0 % 0 - 2 % [facility] Eosinophils (Bld) [#/Vol] 0.13 10*3/uL [facility] Eosinophils/100 WBC (Bld) 1 % 1 - 4 % [facility] Erythrocyte distribution width (RBC) [Ratio] 12 % 11.8 - 14.4 % [facility] Hematocrit (Bld) [Volume fraction] 38.5 % 36.3 - 47.1 % [facility] Hemoglobin (Bld) [Mass/Vol] 13.2 g/dL 11.9 - 15.1 g/dL [facility] Immature granulocytes (Bld) [#/Vol] 0.03 10*3/uL [facility] Immature granulocytes/100 WBC (Bld) 0 % 0 [facility] Interpretation and review of laboratory results Abnormal [facility] Lymphocytes/100 WBC (Bld) 11 % Low 24 - 43 % [facility] Lymphocytes/100 WBC (Bld) 1.11 % [facility] MCH (RBC) [Entitic mass] 29.5 pg 25.2 - 33.5 pg [facility] MCHC (RBC) [Mass/Vol] 34.3 g/dL 28.4 - 34.8 g/dL [facility] MCV (RBC) [Entitic vol] 86.1 fL 82.6 - 102.9 fL [facility] Monocytes/100 WBC (Bld) 7 % 3 - 12 % [facility] Monocytes/100 WBC (Bld) 0.64 % [facility] Neutrophils/100 WBC (Bld) 81 % High 36 - 65 % [facility] Nucleated RBC/100 WBC (Bld) [Ratio] 0 % 0.0 per 100 WBC [facility] Platelet mean volume (Bld) [Entitic vol] 9.7 fL 8.1 - 13.5 fL [facility] Platelets (Bld) [#/Vol] 296 10*3/uL [facility] RBC (Bld) [#/Vol] 4.47 10*6/uL 3.95 - 5.1 1 m/uL [facility] Segmented neutrophils/100 WBC (Bld) 7.87 % [facility] WBC other (Bld) [#/Vol] 9.[address] [facility] CBC with Diffon 12-03-2024 Abs. Basophil 0.04 k/uL Normal 0.00-0.20 [facility] Comment on above: Performed By: #### C DP, TROPI, CP, MG, BNP #### [facility] [address] [place] [address] [place] [address] Humanities Department Chair: Haley Mccall MD Abs.Imm.Granulocyte 0.03 k/uL Normal 0.00-0.30 [facility] Comment on above: Performed By: #### C DP, TROPI, CP, MG, BNP #### [address] [place] [address] Humanities Department Chair: Haley Mccall MD Abs.Neutrophil (Seg) 7.87 k/uL Normal 1.50-8.10 [facility] Comment on above: Performed By: #### C DP, TROPI, CP, MG, BNP #### [address] [place] [address] Humanities Department Chair: Haley Mccall MD Basophils/100 WBC (Bld) 0 % Normal 0-2 [facility] Comment on above: Performed By: #### C DP, TROPI, CP, MG, BNP #### [address] [place] [address] Humanities Department Chair: Haley Mccall MD Eosinophils (Bld) [#/Vol] 0.13 10*3/uL Normal 0.00-0.44 [facility] Comment on above: Performed By: #### C DP, TROPI, CP, MG, BNP #### [address] [place] [address] Humanities Department Chair: Haley Mccall MD Eosinophils/100 WBC (Bld) 1 % Normal 1-4 [facility] Comment on above: Performed By: #### C DP, TROPI, CP, MG, BNP #### [address] [place] [address] Humanities Department Chair: Haley Mccall MD Erythrocyte distribution width (RBC) [Ratio] 12.0 % Normal 11.8-14.4 [facility] Comment on above: Performed By: #### C DP, TROPI, CP, MG, BNP #### [address] [place] [id number] Humanities Department Chair: Haley Mccall MD Hematocrit (Bld) [Volume fraction] 38.5 % Normal 36.3-47.1 [facility] Comment on above: Performed By: #### C DP, TROPI, CP, MG, BNP #### [address] [place] [id number] Humanities Department Chair: Haley Mccall MD Hemoglobin (Bld) [Mass/Vol] 13.2 g/dL Normal 11.9-15.1 [facility] Comment on above: Performed By: #### C DP, TROPI, CP, MG, BNP #### [address] [place], [facility]83 Humanities Department Chair: Haley Mccall MD Immature granulocytes/100 WBC (Bld) 0 % Normal 0 [facility] Comment on above: Performed By: #### C DP, TROPI, CP, MG, BNP #### [address] [place], [facility]83 Humanities Department Chair: Haley Mccall MD Lymphocytes (Bld) [#/Vol] 1.11 10*3/uL Normal 1.10-3.70 [facility] Comment on above: Performed By: #### C DP, TROPI, CP, MG, BNP #### [address] [place], [facility]83 Humanities Department Chair: Haley Mccall MD Lymphocytes/100 WBC (Bld) 11 % Low 24-43 [facility] Comment on above: Performed By: #### C DP, TROPI, CP, MG, BNP #### [address] [place] [facility]83 Humanities Department Chair: Haley Mccall MD MCH (RBC) [Entitic mass] 29.5 pg Normal 25.2-33.5 [facility] Comment on above: Performed By: #### C DP, TROPI, CP, MG, BNP #### [address] [place], [place] [address] Humanities Department Chair: Halye Mccall MD MCHC (RBC) [Mass/Vol] 34.3 g/dL Normal 28.4-34.8 [facility] Comment on above: Performed By: #### C DP, TROPI, CP, MG, BNP #### [address] [place], [facility]83 Humanities Department Chair: Haley Mccall MD MCV (RBC) [Entitic vol] 86.1 fL Normal 82.6-102.9 [facility] Comment on above: Performed By: #### C DP, TROPI, CP, MG, BNP #### [address] [place], [place] [id number] Humanities Department Chair: Haley Mccall MD Monocytes (Bld) [#/Vol] 0.64 10*3/uL Normal 0.10-1.20 [facility] Comment on above: Performed By: #### C DP, TROPI, CP, MG, BNP #### [address] [place] [facility]83 Humanities Department Chair: Haley Mccall MD Monocytes/100 WBC (Bld) 7 % Normal 3-12 [facility] Comment on above: Performed By: #### C DP, TROPI, CP, MG, BNP #### [facility] [address] [place] [address] Humanities Department Chair: Haley Mccall MD Neutrophil (Seg) 81 % High 36-65 [facility] Comment on above: Performed By: #### C DP, TROPI, CP, MG, BNP #### [address] [place], [place] [id number] Humanities Department Chair: Haley Mccall MD NRBC Automated 0.0 per 100 WBC Normal 0.0 [facility] Comment on above: Performed By: #### C DP, TROPI, CP, MG, BNP #### [address] [place], [facility]83 Humanities Department Chair: Haley Mccall MD Platelet mean volume (Bld) [Entitic vol] 9.7 fL Normal 8.1-13.5 [facility] Comment on above: Performed By: #### C DP, TROPI, CP, MG, BNP #### [address] [place], [place] [address] Humanities Department Chair: Haley Mccall MD Platelets (Bld) [#/Vol] 296 10*3/uL Normal 138-453 [facility] Comment on above: Performed By: #### C DP, TROPI, CP, MG, BNP #### [address] [place], [place] [id number] Humanities Department Chair: Haley Mccall MD RBC (Bld) [#/Vol] 4.47 10*6/uL Normal 3.95-5.11 [facility] Comment on above: Performed By: #### C DP, TROPI, CP, MG, BNP #### [address] [place] [id number] Humanities Department Chair: Haley Mccall MD WBC (Bld) [#/Vol] 9.8 10*3/uL Normal 3.5-11.3 [facility] Comment on above: Performed By: #### C DP, TROPI, CP, MG, BNP #### [facility] [address] [place], [place] [id number] Humanities Department Chair: Haley Mccall MD [facility] Albumin [Mass/Vol] 4.5 g/dL 3.5 - 5.2 g/dL [facility] Albumin/Globulin [Mass ratio] 1.6 {ratio} 1.0 - 2.5 [facility] ALP [Catalytic activity/Vol] 81 U/L 35 - 104 U/L [facility] ALT [Catalytic activity/Vol] 20 U/L 10 - 35 U/L [facility] Anion gap [Moles/Vol] 9 mmol/L 9 - 16 mmol/L [facility] AST [Catalytic activity/Vol] 23 U/L 10 - 35 U/L [facility] Bilirubin [Mass/Vol] 0.4 mg/dL 0.00 - 1.20 mg/dL [facility] Calcium [Mass/Vol] 9.4 mg/dL 8.6 - 10. 4 mg/dL [facility] Chloride [Moles/Vol] 101 mmol/L 98 - 10 7 mmol/L [facility] CO2 [Moles/Vol] 26 mmol/L 20 - 31 mmol/L [facility] Creatinine [Mass/Vol] 0.8 mg/dL 0.50 - 0.90 mg/dL [facility] Est, Glom Filt Rate - PINF [facility] Comment on above: These results are [...] [Mass/Vol] 96 mg/dL 74 - 99 mg/dL [facility] Interpretation and review of laboratory results Abnormal [facility] Potassium [Moles/Vol] 4.3 mmol/L 3.7 - 5.3 mmol/L [facility] Protein [Mass/Vol] 7.3 g/dL 6.6 - 8.7 g/dL [facility] Sodium [Moles/Vol] 136 mmol/L 136 - 145 mmol/L [facility] Urea nitrogen [Mass/Vol] 20 mg/dL 6 - 20 mg/dL [facility] Urea nitrogen/Creatinine [Mass ratio] 25 mg/mg High 9 - [address] [facility] [address] HEAD WO CONTRASTon 2024 CT HEAD [...] MD 12/03/24 Edited Result - FINAL Normal [facility] CT Head WO contraston 2024 Addendum by Barbra Baires MD on 12/03/2024 12:19 PM EDT ADDENDUM: Findings were communicated to Dr. CATHERINE CALVILLO by the CORE team on 12/03/2024 at 12:09 pm. Bon [facility] No acute intracrania l abnormality. These results were sent to the CORE Team on 12/03/2024 at 12:03 pm to be communicated to the referring/covering health care provider/office. [facility] CONSOLIDATED EXAMINATION: CT OF THE HEAD WITHOUT [...] of the visualized skull or soft tissues. [facility] Barbra Baiers MD - 12/03/2024 EXAMINATION: CT OF THE [...] communicated to the referring/covering health care provider/office. [facility] Radiology Study observation (narrative) [facility] CT Head WO contrastOrdered B y: Barbra Baires on 12-03-2024 [facility] Work Phone: CTA HEAD NECK W CONTRASTon [...] stenosis or large vessel occlusion of the [id number]. Interpreted by: Barbra Baires MD Signed by: Barbra Baires MD 12/03/24 Final result Normal [facility] CTA Head vessels and Neck ve ssels W contrast Jean-Pierre 12-03-2024 1. No flow limiting stenosis or dissection of the cervical carotid/vertebral arteries. 2. No significant stenosis or large vessel occlusion of the [id number]. PN RIS CONSOLIDATED EXAMINATION: CTA OF THE HEAD [...] BRAIN: No mass effect or midline shift. [facility] RIS Barbra Albert MD - 12/03/2024 EXAMINATION: CTA OF THE [...] stenosis or large vessel occlusion of the [id number]-[id number]. [facility] Radiology Study observation (narrative) [facility] Comp Metabolic Profon 2024 Albumin [Mass/Vol] 4.5 g/dL Normal 3.5-5.2 [facility] Comment on above: Performed By: #### C GABRIEL, VINICIUS, NOEL, MG, BNP ####[address] , [place] [id number] Lab Director: Haley Mccall MD Albumin/Glob Ratio 1.6 Normal 1.0-2.5 [facility] Comment on above: Performed By: #### C DP, TROPI, CP, MG, BNP ####[address] , [place] [id number] lab Director: Haley Mccall MD Alkaline Phos 81 U/L Normal 35-104 [facility] Comment on above: Performed By: #### C DP, TROPI, CP, MG, BNP ####[address] , [place] [id number] lab Director: Haley Mccall MD ALT [Catalytic activity/Vol] 20 U/L Normal 10-35 [facility] Comment on above: Performed By: #### C DP, TROPI, CP, MG, BNP ####[address] , [place] [address]259[address] lab Director: Haley Mccall MD Anion gap [Moles/Vol] 9 mmol/L Normal 9-16 [facility] Comment on above: Performed By: #### C DP, TROPI, CP, MG, BNP ####[address] [place] [address] lab Director: Haley Mccall MD AST [Catalytic activity/Vol] 23 U/L Normal 10-35 [facility] Comment on above: Performed By: #### C DP, TROPI, CP, MG, BNP ####[address] , [place] [address] lab Director: Haley Mccall MD Bilirubin [Mass/Vol] 0.4 mg/dL Normal 0.00-1.20 [facility] Comment on above: Performed By: #### C DP, TROPI, CP, MG, BNP ####[address] [place] [address] lab Director: Haley Mccall MD BUN/CRE Ratio 25 High 9-20 [facility] Comment on above: Performed By: #### C DP, TROPI, CP, MG, BNP ####[address] , [place] [id number] lab Director: Haley Mccall MD Calcium [Mass/Vol] 9.4 mg/dL Normal 8.6-10.4 [facility] Comment on above: Performed By: #### C DP, TROPI, CP, MG, BNP ####[address] [place] [address] lab Director: Haley Mccall MD Chloride [Moles/Vol] 101 mmol/L Normal 98-107 [facility] Comment on above: Performed By: #### C DP, TROPI, CP, MG, BNP ####[address] [place] [address] lab Director: Haley Mccall MD CO2 [Moles/Vol] 26 mmol/L Normal 20-31 [facility] Comment on above: Performed By: #### C DP, TROPI, CP, MG, BNP ####[address] [place] [address] lab Director: Haley Mccall MD Creatinine [Mass/Vol] 0.8 mg/dL Normal 0.50-0.90 [facility] Comment on above: Performed By: #### C DP, TROPI, CP, MG, BNP ####[address] [place] [address] lab Director: Haley Mccall MD GFR/1.73 sq M.predicted among non-blacks MDRD (S/P/Bld) [Vol rate/Area] mL/min/{1.73_m2} Normal >60 [facility] Comment on above: Result Comment: [...] #### C DP, TROPI, CP, MG, BNP ####[address] [place] [address] Lab Director: Haley Mccall MD Glucose [Mass/Vol] 96 mg/dL Normal 74-99 [facility] Comment on above: Performed By: #### C DP, TROPI, CP, MG, BNP ####[address] [place] [address] Lab Director: Haley Mccall MD Potassium [Moles/Vol] 4.3 mmol/L Normal 3.7-5.3 [facility] Comment on above: Performed By: #### C DP, TROPI, CP, MG, BNP ####[address] [place] [address] Lab Director: Haley Mccall MD Protein [Mass/Vol] 7.3 g/dL Normal 6.6-8.7 [facility] Comment on above: Performed By: #### C DP, TROPI, CP, MG, BNP ####[address] [place] [address] Lab Director: Haley Mccall MD Sodium [Moles/Vol] 136 mmol/L Normal 136-145 [facility] Comment on above: Performed By: #### C DP, TROPI, CP, MG, BNP ####[address] , [place] [address] Lab Director: Haley Mccall MD Urea nitrogen [Mass/Vol] 20 mg/dL Normal 6-20 [facility] Comment on above: Performed By: #### C DP, TROPI, CP, MG, BNP ####[facility] [place] [address] lab Director: Haley Mccall MD EKG 12 LeadOrdered By: Wesley Del Valle on 12-03-2024 Atrial Rate 79 BPM [employer] Work Phone: P [place] 61 degrees [employer] Work Phone: P-R Interval 142 ms [employer] Work Phone: Q-T Interval 372 ms [employer] Work Phone: QRS Duration 76 ms [employer] Work Phone: QTc Calculation (Bazett) 426 ms [employer] Work Phone: R [place] 13 degrees [employer] Work Phone: T [place] 42 degrees [employer] Work Phone: Ventricular Rate 79 BPM [employer] Work Phone: [employer] Work Phone: EKG 12 Leadon 12-03-2024 Normal sinus rhythm Low voltage QRS Borderline ECG When compared with ECG of 15-OCT-2024 15:50, No significant change was found Confirmed by JUAN DEL VALLE ([id number]) on 12/03/2024 12:29:07 PM [facility] RADIOLOG[facility] Juan Del Valle MD - 12/03/2024 Normal sinus rhythm Low voltage QRS Borderline ECG When compared with ECG of 15-OCT-2024 15:50, No significant change was found Confirmed by JUAN DEL VALLE ([id number]) on 12/03/2024 12:29:07 PM [employer] Magnesiumon 12-03-2024 Magnesium [Mass/Vol] 2.2 mg/dL 1.6 - 2 .6 mg/dL [employer] Magnesium [Mass/Vol] 2.2 mg/dL Normal 1.6-2.6 [facility] Comment on above: Performed By: #### C DP, TROPI, CP, MG, BNP ####[address] [place] [address] lab Director: Haley Mccall MD No Panel Informationon 12-03 [facility] TSHon 12-03-2024 TSH Qn 1.6 m[IU]/L [facility] Thyroid Stim. Horm.on 2024 Thyroid Stim. Horm. 1.60 uIU/mL Normal 0.27-4.20 [facility] Comment on above: Performed By: #### F T4 ####[address] [id number] lab Director: Harvinder Meza MD#### TSH ####[address] [place] [address] lab Director: Haley Mccall MD Thyroxine, Freeon 12-03-2024 Thyroxine, Free 1.2 ng/dL Normal 0.92-1.68 [facility] Comment on above: Performed By: #### F T4 ####[address] [id number] Lab Director: Harvinder Meza MD#### TSH ####[address] [place] [address] Lab Director: Haley Mccall MD Troponinon 12-03-2024 Troponin I.cardiac High sensitivity method [Mass/Vol] ng/L 0 - 14 ng/L [facility] Comment on above: High Sensitivity Tro ponin values cannot be compared with other Troponin methodologies. Troponin, High Sens <6 Normal 0-14 [facility] Comment on above: Result Comment: High Sensitivity Troponin values cannot be compared with other Troponin methodologies. Performed By: #### C DP, TROPI, CP, MG, BNP ####[address] [place] [address] lab Director: Haley Mccall MD XR CHEST [...] Koffi Esposito DO 12/03/24 Final result Normal [facility] XR Chest Single viewon 12-03 No acute pulmonary findings. [facility] RIS CONSOLIDATED EXAMINATION: ONE XRAY VIEW OF THE CHEST 12/03/2024 11:53 am COMPARISON: None. HISTORY: ORDERING SYSTEM PROVIDED HISTORY: right sided weakness TECHNOLOGIST PROVIDED HISTORY: right sided weakness FINDINGS: Lungs: Clear. Pleura: No effusion or pneumothorax. Cardiomediastinal silhouette: Normal contours. Bones: No acute bony findings. Soft tissues: Normal. [facility] RIS CONSOL[facility]ATED Koffi Esposito DO - 12/03/2024 EXAMINATION: ONE XRAY VIEW OF THE CHEST 12/03/2024 11:53 am COMPARISON: None. HISTORY: ORDERING SYSTEM PROVIDED HISTORY: right sided weakness TECHNOLOGIST PROVIDED HISTORY: right sided weakness FINDINGS: Lungs: Clear. Pleura: No effusion or pneumothorax. Cardiomediastinal silhouette: Normal contours. Bones: No acute bony findings. Soft tissues: Normal. IMPRESSION: No acute pulmonary findings. [facility] Radiology Study observation (narrative) [facility] XR Chest Single viewOrdered By: Koffi Esposito on 12-03-2024 [facility] Work Phone: FL INJ HIP ARTHROGRAMon FL INJ HIP ARTHROGRAM EXAMINATION: FLUOROSCOPIC GUIDED ARTHROGRAM, 11/14/2024 2:13 pm COMPARISON: None. HISTORY: ORDERING SYSTEM PROVIDED HISTORY: Labral tear of hip, degenerative TECHNOLOGIST PROVIDED HISTORY: Is the patient ?->No FLUOROSCOPY DOSE AND TYPE: Radiation Exposure Index: Kerma mGy, PROCEDURE: PLANT OPERATIONS WORKER: Matti Cyr DO Informed consent was obtained [...] Matti Cyr DO 11/14/24 Final result Normal [facility] MR Hip - right W contrast IV on 11-14-2024 1. Suspected subtle intrasubstance tear in the far anterior superior right acetabular labrum. Underlying degeneration of the right acetabular labrum without paralabral cyst. 2. Trace fluid in the right greater trochanteric bursa. 3. No acute osseous abnormality. No femoral head AVN. [facility] RIS CONSOLIDATED EXAMINATION: MRI ARTHROGRAM OF THE [...] the intrapelvic contents demonstrate no acute abnormality. [facility] Gm Heredia MD - 11/14/2024 EXAMINATION: MRI ARTHROGRAM OF [...] acute osseous abnormality. No femoral head AVN. [facility] Radiology Study observation (narrative) [facility] MR Hip - right W contrast IV Ordered By: Gm Uribe on 11-14-2024 [facility] Work Phone: MRI HIP RIGHT W CONTRASTon [...] Gm Uribe MD 11/14/24 Final result Normal [facility] RF Hip Arthrogramon 11-15-19 Successful fluoroscopic-guided right hip arthrogram. Patient was transferred to MRI for further imaging. [facility] RIS CONSOLIDATED EXAMINATION: FLUOROSCOPIC GUIDED ARTHROGRAM, 11/14/2024 2:13 pm COMPARISON: None. HISTORY: ORDERING SYSTEM PROVIDED HISTORY: Labral tear of hip, degenerative TECHNOLOGIST PROVIDED HISTORY: Is the patient ?->No FLUOROSCOPY DOSE AND TYPE: Radiation Exposure Index: Kerma mGy, PROCEDURE: PLANT OPERATIONS WORKER: Matti Cyr, DO Informed consent was obtained and universal [...] obtained and a sterile bandage was placed. [facility] Matti Cyr D O - 11/14/2024 EXAMINATION: FLUOROSCOPIC GUIDED ARTHROGRAM, 11/14/2024 2:13 pm COMPARISON: None. HISTORY: ORDERING SYSTEM PROVIDED HISTORY: Labral tear of hip, degenerative TECHNOLOGIST PROVIDED HISTORY: Is the patient ?->No FLUOROSCOPY DOSE AND TYPE: Radiation Exposure Index: Kerma mGy, PROCEDURE: PLANT OPERATIONS WORKER: Matti Cyr DO Informed consent was obtained [...] was transferred to MRI for further imaging. [facility] Radiology Study observation (narrative) [facility] RF Hip ArthrogramOrdered By: Matti Cyr on 11-14-2024 [facility] Work Phone: Ambulatory Visit Summaryon 0 10-16-2024 [...] choosing us for your care. [facility] Family Medicine Office/Clini c Noteon 10-16-2024 Family Medicine Office/Clinic Note Family Medicine Office/Clinic Note HPI Staff Ashlee is a 39 year old female presenting to discuss medication Pt is concerned she started Cholesterol medication and now her blood pressure had been elevated and missed work 2/3-2/ Pt went to ER Jos bravo 10/15/24 145/78 , feels like she [...] influenza virus vaccine, inactivated 07/14/2019 Recorded Normal [facility] Comment on above: Result Comment: Elec tronically Signed By: Toño 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, Lidia L\.br\Date and Time Signed: 10/16/24 14:42 EST Provider Letteron 10-16-2024 Provider Letter Provider Letter October 16, 20[address] [place] [id number] : 1985 To Whom It May Concern, Please excuse above patient from work. Date of Illness: From: _10-17-24 To: _10-17-24 May Return to Work On:10-20-24 Restrictions: _ Comments: _ Sincerely, Family Medicine [address] [address] [facility] Basic Metabolic Panelon Anion gap [Moles/Vol] 14 mmol/L 9 - 16 mmol/L [employer] Calcium [Mass/Vol] 9.0 mg/dL 8.6 - 10. 4 mg/dL [employer] Chloride [Moles/Vol] 101 mmol/L 98 - 10 7 mmol/L [employer] CO2 [Moles/Vol] 21 mmol/L 20 - 31 mmol/L [facility] Creatinine [Mass/Vol] 0.7 mg/dL 0.50 - 0.90 mg/dL [employer] Est, Maxwell Mcrae Rate - PINF [facility] Comment on above: These results are not [...] [Mass/Vol] 88 mg/dL 74 - 99 mg/dL [facility] Interpretation and review of laboratory results Abnormal [facility] Potassium [Moles/Vol] 3.6 mmol/L Low 3.7 - 5.3 mmol/L [facility] Sodium [Moles/Vol] 136 mmol/L 136 - 145 mmol/L [facility] Urea nitrogen [Mass/Vol] 14 mg/dL 6 - 20 mg/dL [facility] Urea nitrogen/Creatinine [Mass ratio] 20 mg/mg 9 - 20 [facility] Basic Metabolic Profon 10-15 Anion gap [Moles/Vol] 14 mmol/L Normal 9-16 [facility] Comment on above: Performed By: #### T CONI ROMANO, CDP #### [facility] [address] [place], [place] [address] Humanities Department Chair: Haley Mccall MD BUN/CRE Ratio 20 Normal 9-20 [facility] Comment on above: Performed By: #### T CONI ROMANO, CDP #### [facility] [address] [place], [place] [id number] Humanities Department Chair: Haley Mccall MD Calcium [Mass/Vol] 9.0 mg/dL Normal 8.6-10.4 [facility] Comment on above: Performed By: #### T CONI ROMANO, CDP #### [facility] [address] [place], [place] [id number] Humanities Department Chair: Haley Mccall MD Chloride [Moles/Vol] 101 mmol/L Normal 98-107 [facility] Comment on above: Performed By: #### T CONI ROMANO, CDP #### [address] [place], [place] [id number] Humanities Department Chair: Haley Mccall MD CO2 [Moles/Vol] 21 mmol/L Normal 20-31 [facility] Comment on above: Performed By: #### T CONI ROMANO, CDP #### [facility] [address] [place], [place] [id number] Humanities Department Chair: Haley Mccall MD Creatinine [Mass/Vol] 0.7 mg/dL Normal 0.50-0.90 [facility] Comment on above: Performed By: #### T CONI ROMANO, CDP #### [facility] [address] [place] [address] Humanities Department Chair: Haley Mccall MD GFR/1.73 sq M.predicted among non-blacks MDRD (S/P/Bld) [Vol rate/Area] mL/min/{1.73_m2} Normal >60 [facility] Comment on above: Result Comment: [...] affects renal tubular secretion. Performed By: #### CONI LEW, CDP #### [address] [place] [address] Humanities Department Chair: Haley Mccall MD Glucose [Mass/Vol] 88 mg/dL Normal 74-99 [facility] Comment on above: Performed By: #### CONI LEW, CDP #### [address] [place] [address] Humanities Department Chair: Haley Mccall MD Potassium [Moles/Vol] 3.6 mmol/L Low 3.7-5.3 [facility] Comment on above: Performed By: #### CONI LEW, CDP #### [address] [place] [address] Humanities Department Chair: Haley Mccall MD Sodium [Moles/Vol] 136 mmol/L Normal 136-145 [facility] Comment on above: Performed By: #### CONI LEW, CDP #### [address] [place] [address] Humanities Department Chair: Haley Mccall MD Urea nitrogen [Mass/Vol] 14 mg/dL Normal 6-20 [facility] Comment on above: Performed By: #### CONI LEW, CDP #### [address] [place] [id number] Humanities Department Chair: Haley Mccall MD CBC with Auto Differentialon 10-15-2024 Basophils (Bld) [#/Vol] 0.05 10*3/uL [facility] Immature granulocytes (Bld) [#/Vol] [facility] Interpretation and review of laboratory results Abnormal [facility] Lymphocytes/100 WBC (Bld) 2.54 % [facility] Monocytes/100 WBC (Bld) 0.45 % [facility] Neutrophils/100 WBC (Bld) 60 % 36 - 65 % [facility] Nucleated RBC/100 WBC (Bld) [Ratio] 0.0 % 0.0 per 100 WBC [facility] Segmented neutrophils/100 WBC (Bld) 4.97 % [facility] WBC other (Bld) [#/Vol] 8.[address] [facility] CBC with Diffon 10-15-2024 Basophils/100 WBC (Bld) 1 % Normal 0-2 [facility] Comment on above: Performed By: #### CONI LEW, CDP #### [address] [place] [id number] Humanities Department Chair: Haley Mccall MD Eosinophils (Bld) [#/Vol] 0.17 10*3/uL Normal 0.00-0.44 [facility] Comment on above: Performed By: #### CONI LEW, CDP #### [address] [place] [phone] Humanities Department Chair: Haley cMcall MD Eosinophils/100 WBC (Bld) 2 % Normal 1-4 [facility] Comment on above: Performed By: #### CONI LEW, CDP #### [address] [place] [place] [address] Humanities Department Chair: Haley Mccall MD Erythrocyte distribution width (RBC) [Ratio] 12.0 % Normal 11.8-14.4 [facility] Comment on above: Performed By: #### CONI LEW, CDP #### [address] [place] [phone] Humanities Department Chair: Haley Mccall MD Hematocrit (Bld) [Volume fraction] 38.4 % Normal 36.3-47.1 [facility] Comment on above: Performed By: #### CONI LEW, CDP #### [address] [place] [id number] Humanities Department Chair: Haley Mccall MD Hemoglobin (Bld) [Mass/Vol] 13.4 g/dL Normal 11.9-15.1 [facility] Comment on above: Performed By: #### CONI LEW, CDP #### [address] [place] [id number] Humanities Department Chair: Haley Mccall MD Immature granulocytes/100 WBC (Bld) 0 % Normal 0 [facility] Comment on above: Performed By: #### CONI LEW, CDP #### [address] [place] [phone] Humanities Department Chair: Haley Mccall MD Lymphocytes/100 WBC (Bld) 31 % Normal 24-43 [facility] Comment on above: Performed By: #### CONI LEW, CDP #### [address] [place] [phone] Humanities Department Chair: Haley Mccall MD MCH (RBC) [Entitic mass] 29.9 pg Normal 25.2-33.5 [facility] Comment on above: Performed By: #### CONI LEW, CDP #### [address] [place] [phone] Humanities Department Chair: Haley Mccall MD MCHC (RBC) [Mass/Vol] 34.9 g/dL High 28.4-34.8 [facility] Comment on above: Performed By: #### T CONI ROMANO, CDP #### [address] [place], [place] [phone] Humanities Department Chair: Haley Mccall MD MCV (RBC) [Entitic vol] 85.7 fL Normal 82.6-102.9 [facility] Comment on above: Performed By: #### T CONI ROMANO, CDP #### [address] [place], [facility]83 Humanities Department Chair: Haley Mccall MD Monocytes/100 WBC (Bld) 6 % Normal 3-12 [facility] Comment on above: Performed By: #### T CONI ROMANO, CDP #### [address] [place] [phone] Humanities Department Chair: Haley Mccall MD Platelet mean volume (Bld) [Entitic vol] 10.1 fL Normal 8.1-13.5 [facility] Comment on above: Performed By: #### T CONI ROMANO, CDP #### [address] [place], [place] [phone] Humanities Department Chair: Haley Mccall MD Platelets (Bld) [#/Vol] 361 10*3/uL Normal 138-453 [facility] Comment on above: Performed By: #### T CONI ROMANO, CDP #### [address] [place], [facility]83 Humanities Department Chair: Haley Mccall MD RBC (Bld) [#/Vol] 4.48 10*6/uL Normal 3.95-5.11 [facility] Comment on above: Performed By: #### T CONI ROMANO, CDP #### [address] [place] [address] Humanities Department Chair: Haley Mccall MD Abs. Basophil 0.05 k/uL Normal 0.00-0.20 [facility] Comment on above: Performed By: #### T CONI ROMANO, CDP #### [facility] [address] [place], [place] [address] Humanities Department Chair: Haley Mccall MD Abs.Imm.Granulocyte <0.03 Normal 0.00-0.30 [facility] Comment on above: Performed By: #### T CONI ROMANO, CDP #### [facility] [address] [place], [place] [address] Humanities Department Chair: Haley Mccall MD Abs.Neutrophil (Seg) 4.97 k/uL Normal 1.50-8.10 [facility] Comment on above: Performed By: #### T CONI ROMANO, CDP #### [address] [place] [phone] Humanities Department Chair: Haley Mccall MD Lymphocytes (Bld) [#/Vol] 2.54 10*3/uL Normal 1.10-3.70 [facility] Comment on above: Performed By: #### T CONI ROMANO, CDP #### [address] [place], [place] [address] Humanities Department Chair: Haley Mccall MD Monocytes (Bld) [#/Vol] 0.45 10*3/uL Normal 0.10-1.20 [facility] Comment on above: Performed By: #### T CONI ROMANO, CDP #### [address] [place], [place] [address] Humanities Department Chair: Haley Mccall MD Neutrophil (Seg) 60 % Normal 36-65 [facility] Comment on above: Performed By: #### T CONI ROMANO, CDP #### [facility] [address] [place] [phone] Humanities Department Chair: Haley Mccall MD NRBC Automated 0.0 per 100 WBC Normal 0.0 [facility] Comment on above: Performed By: #### T CONI ROMANO, CDP #### [facility] [address] [place], [place] [phone] Humanities Department Chair: Haley Mccall MD WBC (Bld) [#/Vol] 8.2 10*3/uL Normal 3.5-11.3 [facility] Comment on above: Performed By: #### T CONI ROMANO, CDP #### [facility] [address] [place], [place] [phone] Humanities Department Chair: Haley Mccall MD Microscopic Urinalysison Epithelial cells LM.HPF (Urine sed) [#/Area] 0 TO 2 [facility] RBC LM.HPF (Urine sed) [#/Area] 0 TO 2 [facility] WBC LM.HPF (Urine sed) [#/Area] 0 TO 2 [facility] No Panel Informationon 10-15 [facility] Troponinon 10-15-2024 Troponin I.cardiac High sensitivity method [Mass/Vol] ng/L 0 - 14 ng/L [facility] Comment on above: High Sensitivity Tro ponin values cannot be compared with other Troponin methodologies. Troponin, High Sens <6 Normal 0-14 [facility] Comment on above: Result Comment: High Sensitivity Troponin values cannot be compared with other Troponin methodologies. Performed By: #### T CONI ROMANO, CDP #### [facility] [address] [place], [place] [id number] Humanities Department Chair: Haley Mccall MD UA w/Reflex Cultureon 2024 Bilirubin, SemiQt,Ur Negative Normal NEG [facility] Comment on above: Performed By: #### U AX UMICAO ####[facility] [place], [place] [address]83 Lab Director: Haley Mccall MD Blood, Urine Negative Normal NEG [facility] Comment on above: Performed By: #### U AX UMAMANDOO ####[facility] , [place] [id number] Lab Director: Haley Mccall MD Clarity (U) Clear Normal CLEAR [facility] Comment on above: Performed By: #### U AX, UMICAO ####[address] [place] [address] Lab Director: Haley Mccall MD Color (U) Yellow Normal YEL [facility] Comment on above: Performed By: #### U AX, UMICAO ####[address] [place] [address] Lab Director: Haley Mccall MD Glucose Ql (U) Negative Normal NEG [facility] Comment on above: Performed By: #### U AX, UMICAO ####[address] [place] [address] Lab Director: Haley Mccall MD Ketones Ql (U) Negative Normal NEG [facility] Comment on above: Performed By: #### U AX, UMICAO ####[address] [place] [address] Lab Director: Haley Mccall MD Leukocyte esterase Test strip Ql (U) Negative Normal NEG [facility] Comment on above: Performed By: #### U AX, UMICAO ####[address] [place] [address] Lab Director: Haley Mccall MD Nitrite,Ur Negative Normal NEG [facility] Comment on above: Performed By: #### U AX, UMICAO ####[address] [place] [address] Lab Director: Haley Mccall MD PH,Ur 6.5 Normal 5.0-9.0 [facility] Comment on above: Performed By: #### U AX, UMICAO ####[address] [place] [address] Lab Director: Haley Mccall MD Protein Ql (U) Negative Normal NEG [facility] Comment on above: Performed By: #### U AX, UMICAO ####[facility] [place] [address] lab Director: Haley Mccall MD Spec. [place],Ur <1.005 Low 1.010-1.020 [facility] Comment on above: Performed By: #### U AX, UMICAO ####[address] [place] [address] lab Director: Haley Mccall MD Urobilinogen,Ur Normal Normal 0.0-1.0 [facility] Comment on above: Performed By: #### U AX, UMICAO ####[address] [place] [address] lab Director: Haley Mccall MD Urinalysis with Reflex to Cu ltureon 10-15-2024 Bilirubin Ql (U) Negative NEGATIVE [facility] Clarity (U) Clear Clear [facility] Color (U) Yellow Yellow [facility] Glucose Test strip (U) [Mass/Vol] Negative NEGATIVE mg/dL [facility] Hemoglobin Auto test strip Ql (U) Negative NEGATIVE [facility] Interpretation and review of laboratory results Abnormal [facility] Ketones (U) [Mass/Vol] Negative NEGAT ALEXI mg/dL [facility] Leukocyte esterase Test strip Ql (U) Negative NEGATIVE [facility] Nitrite Ql (U) Negative NEGATIVE [facility] pH (U) 6.5 [pH] 5.0 - 9.0 [facility] Protein (U) [Mass/Vol] Negative NEGAT ALEXI mg/dL [facility] Specific gravity (U) [Rel density] Low 1.010 - 1.020 [facility] Urobilinogen Qn (U) Normal 0.0 - 1. 0 EU/dL [facility] Urinalysis,Microon 5 Epithelial cells LM Ql (Urine sed) 0 TO 2 Normal 0-25 [facility] Comment on above: Performed By: #### U PRABHJOT ORTEGAO ####[facility] [place] [address] lab Director: Haley Mccall MD Urine RBC's 0 TO 2 Normal 0-2 [facility] Comment on above: Performed By: #### U PRABHJOT ORTEGAO ####[facility] [place] [address] lab Director: Haley Mccall MD Urine WBC's 0 TO 2 Normal 0-5 [facility] Comment on above: Performed By: #### U PRABHJOT ORTEGAO ####[facility] [place] [address] lab Director: Haley Mccall MD Provider Letteron 10-14-2024 Provider Letter Provider Letter October 14, 2024 [address] [place] [phone] : 1985 To Whom It May Concern, Please excuse above patient from work. Date of Illness: From: 10/13/2024 To: 10/14/2024 May Return to Work On: 10/15/2024 Sincerely, [address] [address] Normal [facility] T3 Freeon 10-08-2024 Free T3 [Mass/Vol] 3.0 pg/mL Invalid Interpretation Code 2.0-4.4 [facility] Comment on above: Result Comment: Perf ormed at: [facility] [address] [id number] PhD Babatunde Wagoner Performed By: #### 2 [id number] ####[facility] [address] [place] [address] CHEMISTRYOrdered By: SYSTEM SYSTEM on 10-06-2024 Cholesterol [...] Free T4 Iron Level Lab Specimen Collect 69156 Lipid Panel T3 Free Thyroid Stimulating Hormone 3. Anemia (D64.9: Anemia, unspecified) iron ordered in office today Ordered: Free T4 Iron Level Lab Specimen Collect 77803 Lipid Panel T3 Free Thyroid Stimulating Hormone 4. Screening for thyroid disorder (Z13.29: Encounter for screening for other suspected endocrine disorder) TSH drawn in office today Ordered: Free T4 Iron Level Lab Specimen Collect 63104 Lipid Panel T3 Free Thyroid Stimulating Hormone 5. Non-smoker (Z78.9: Other specified health status) continue not smoking Ordered: phentermine, 37.5 mg = 1 tab(s), Oral, Daily, # 30 tab(s), Refills(s) 0, Pharmacy: [facility] [id number], 161, cm, 09/16/24 15:32:00 EST, Height/Length Dosing, 77.1, kg, 09/16/24 15:32:00 EST, Weight Dosing Free T4 Iron Level Lipid Panel T3 Free Thyroid Stimulating Hormone 6. Leg pain, bilateral (M79.604: Pain in right leg) pt was encouraged to stop taking adipex by vascular doctor due to raynauds syndrome. she discussed with [facility] pharmacy and they will fax me an [...] 02/25/2021 R (more content not included)... Normal [facility] Comment on above: Result Comment: Elec tronically Signed By: Lidia Jones\.br\Date and Time Signed: 10/06/24 11:47 EST Free T4on 10-06-2024 Free T4 [Mass/Vol] 0.90 ng/dL Normal 0.58-1.64 [facility] Comment on above: Performed By: #### 2 [id number] #### [facility] [address] [place] [address] Ironon 10-06-2024 Iron [Mass/Vol] 55 microgram/dL Normal 35-153 [facility] Comment on above: Performed By: #### 2 [id number] #### [facility] [address] [place] [address] Lipid Panelon 10-06-2024 Cholesterol [Mass/Vol] 241 mg/dL High 120-200 [facility] Comment on above: Performed By: #### 2 [id number] #### [facility] [address] [place] [address] Cholesterol in HDL [Mass/Vol] 47 mg/dL Invalid Interpretation Code [facility] Comment on above: Result Comment: '>= 60 LOW RISK' '<= 40 HIGH RISK' Performed By: #### 2 063539 #### [facility] [address] [place] [address] Cholesterol in LDL [Mass/Vol] 142 mg/dL High <=129 [facility] Comment on above: Performed By: #### 2 [id number] #### [facility] [address] [place] [address] Cholesterol in VLDL [Mass/Vol] 63 mg/dL High 7-40 [facility] Comment on above: Performed By: #### 2 103471 #### [facility] [address] [place] [address] Triglyceride [Mass/Vol] 315 mg/dL High <=149 [facility] Comment on above: Performed By: #### 2 [id number] #### [facility] [address] [place] [address] TSHon 10-06-2024 TSH Qn 3.02 m[IU]/L Normal 0.34-5.60 [facility] Comment on above: Performed By: #### 2 [id number] #### [facility] [address] [place] [address] Family Medicine Office/Clini c Noteon 09-17-2024 Family [...] of skin sensation) 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 she will discuss this with her. to see if she wants to rule out raynaud's. RTC 3 months for adipex follow up Ordered: phentermine, 37.5 mg = 1 tab(s), Oral, Daily, # 30 tab(s), Refills(s) 0, [facility]acy: [facility] [id number], 161, cm, 09/16/24 15:32:00 EST, Height/Length Dosing, 77.1, kg, 09/16/24 15:32:00 EST, Weight Dosing 2. BMI 29.0-29.9,adult (Z68.29: Body mass index [BMI] 29.0-29.9, adult) BMI education given Ordered: phentermine, 37.5 mg = 1 tab(s), Oral, Daily, # 30 tab(s), Refills(s) 0, Pharmacy: [facility] [id number], 161, cm, 09/16/24 15:32:00 EST, Height/Length Dosing, 77.1, kg, 09/16/24 15:32:00 EST, Weight Dosing 3. Exogenous obesity (E66.09: Other obesity due to excess calories) see above Ordered: phentermine, 37.5 mg = 1 tab(s), Oral, Daily, # 30 tab(s), Refills(s) 0, [email or web address] [id number], 161, cm, 09/16/24 15:32:00 EST, Height/Length Dosing, 77.1, kg, 09/16/24 15:32:00 EST, Weight Dosing 4. Non-smoker (Z78.9: Other specified health status) continue not smoking Ordered: phentermine, 37.5 mg = 1 tab(s), Oral, Daily, BMI 29.57, # 30 tab(s), Refills(s) 0, [facility] [id number], 161, cm, 08/06/24 13:59:00 EST, Height/Length Dosing, 76.6, kg, 08/06/24 13:59:00 EST, Weight Dosing phentermine, 37.5 mg = 1 tab(s), Oral, Daily, # 30 tab(s), Refills(s) 0, [email or web address] [id number], 161, cm, 09/16/24 15:32:00 EST, Height/Length Dosing, [...] virus vac (more content not included)... Normal [facility] Comment on above: Result Comment: Elec tronically Signed By: Lidia Jones\.br\Date and Time Signed: 09/17/24 08:07 EST Ambulatory Visit Summaryon 0 09-16-2024 Ambulatory Visit Summary Ambulatory Visit Summary SHUBHAMASHLEE :1985 Visit Date:09/16/2024 Ambulatory Visit Instructions Your Diagnosis Cold feet BMI 29.0-29.9,adult Exogenous obesity Non-smoker Your Care Team Attending Physician - Lidia Jones Primary Care Physician - Lidia Jones This Is Your Medications List esomeprazole (Nexium 20 mg Cap-DR) naproxen (naproxen 500 mg Tab) ubrogepant (Ubrelvy 100 mg oral tablet) Procedures Performed Surgery (2022), Surgery (2022), Surgery (2020), delivery (2017), delivery, Hysterectomy, Surgery. Discharge Vitals Temperature (Oral) [...] for choosing us for your care. Normal [facility] Provider Letteron 08-20-2024 Provider Letter Provider Letter August 20, 20[address] [place] [phone] : 1985 Dear Ashlee, We have been trying to reach you with no success. It is important that you return our call regarding your test results upon receiving this letter. Also, at the time of your call, please provide us with your current information. Thank you for your prompt attention to this matter. Sincerely, Family Medicine [address] [address] ext. [phone] [facility] Ambulatory Visit Summaryon 1 09-27-2023 [...] choosing us for your care. Normal [facility] Family Medicine Office/Clini c Noteon 07-28-2024 [...] influenza virus vaccine, inactivated 07/14/2019 Recorded Normal [facility] Comment on above: Result Comment: Elec tronically Signed By: Lidia Jones\.br\Date and Time Signed: 07/28/24 11:05 EST Provider Letteron 07-01-2024 Provider Letter Provider Letter July 01, 20[address] [place] [phone] : 1985 To Whom It May Concern, Please excuse above patient from work. Date of Illness: 07/01/2024 May Return to Work On: 07/02/2024 Sincerely, Family Medicine [place] [id number] [facility] Ambulatory Visit Summaryon 1 Ambulatory Visit Summary [...] 10:00 AM EST With: Lidia Jones Where: [place] [id number]- Medications What How Much When Why Instructions New phentermine (phentermine 37.5 mg Tab) 1 Tablets By Mouth Every day Pre-op exam Non-smoker BMI 30.0-30.9,adult Pickup at [facility] [id number] Unchanged drospirenone (Slynd 4 mg oral tablet) Unchanged esomeprazole (Nexium 20 mg Cap-DR) 1 Capsules By Mouth Every day Unchanged naproxen (naproxen 500 mg Tab) 1 Tablets By Mouth 2 times a day Unchanged ubrogepant (Ubrelvy 100 mg oral tablet) 1 Tablets By Mouth Once may repeat dose in 2 hours if needed Pharmacy Information [facility] [id number]: [address] [place], [place] [id number] [phone] Allergies Nubain (Nausea) Silicone (simethicone) obsolete (Hives) [...] choosing us for your care. [facility] Family Medicine Office/Clini c Noteon 06-30-2024 Family [...] # 30 tab(s), Refills(s) 0, Pharmacy: [facility] [id number], 161, cm, 06/30/24 10:16:00 EDT, Height/Length Dosing, 77.2, kg, 06/30/24 10:16:00 EDT, Weight Dosing phentermine, 37.5 mg = 1 tab(s), Oral, Daily, # 30 tab(s), Refills(s) 0, Pharmacy: [facility] [id number], 161, cm, 06/04/24 9:57:00 EDT, Height/Length Dosing, [...] Recorded influenza virus vaccine, inactivated 07/14/2019 Recorded [facility] Comment on above: Result Comment: Elec tronically Signed By: Toño RICARDO, Lidia Swenson\.br\Date and Time Signed: 06/30/24 10:35 EDT Provider Letteron 06-30-2024 Provider Letter Provider Letter June 30, 2024 [address] [place] [phone] : 1985 To Whom It May Concern, Please excuse above patient from work. Date of Illness: From: _ 06-30-24 To: _ 06-30-24 May Return to Work On: 07-01-24 Restrictions: _ Comments: _ Sincerely, Family Medicine [address] [address] [facility] Video Visit - Telehealtho n [...] was adopted Family history is negative Normal [facility] Comment on above: Result Comment: Elec tronically Signed By: Jose [facility], Darlene Jenkins\.taniya\Date and Time Signed: 06/10/24 11:38 EDT MLR HEMOGLOBIN A1Con 024 Glucose [Mass/Vol] 111 mg/dL [facility] HbA1c (Bld) [Mass fraction] 5.5 % 4.5 - 6.2 % [facility] Comment on above: ADA RECOMMENDED LIMI T 4.0 - 6.0 ADA THERAPEUTIC TARGET < 7.0 ACTION SUGGESTED > 7.0 [facility] Ambulatory Visit Summaryon 0 06-04-2024 Ambulatory Visit [...] 3:00 PM EDT With: Darlene Dillard Where: [facility] 2023 11:00 AM EDT With: Darlene Dillard Where: [facility] Sunday 10:00 AM EDT With: Lidia Jones Where: [place] [address]- Medications What How Much When Why Instructions [...] choosing us for your care. Normal [facility] Family Medicine Office/Clini c Noteon 06-04-2024 Family [...] Daily, # 30 tab(s), Refills(s) 0, Pharmacy: [facility] [id number], 161, cm, 06/04/24 9:57:00 EDT, Height/Length Dosing, 75.5, kg, 06/04/24 9:57:00 EDT, Weight Dosing phentermine, 37.5 mg = 1 tab(s), Oral, Daily, # 30 tab(s), Refills(s) 0, Pharmacy: [facility] [id number], 161.6, cm, 04/23/24 9:21:00 EDT, Height/Length Dosing, 78.7, kg, 04/23/24 9:21:00 EDT, Weight Dosing 4. Non-smoker (Z78.9: Other specified health status) continue not smoking Ordered: phentermine, 37.5 mg = 1 tab(s), Oral, Daily, # 30 tab(s), Refills(s) 0, Pharmacy: [facility] [id number], 161, cm, 06/04/24 9:57:00 EDT, Height/Length Dosing, 75.5, kg, 06/04/24 9:57:00 EDT, Weight Dosing phentermine, 37.5 mg = 1 tab(s), Oral, Daily, # 30 tab(s), Refills(s) 0, Pharmacy: [facility] [id number], 161.6, cm, 04/23/24 9:21:00 EDT, Height/Length Dosing, 78.7, kg, 04/23/24 9:21:00 EDT, Weight Dosing Orders: ubrogepant, 100 mg = 1 tab(s), Oral, Once, may repeat dose in 2 hours if needed, # 16 tab(s), Refills(s) 1, Pharmacy: [facility] [id number], 161, cm, 06/04/24 9:57:00 EDT, Height/Length Dosing, [...] negative Immuni (more content not included)... Normal [facility] Comment on above: Result Comment: Elec tronically Signed By: Toño RICARDO, Lidia Swenson\.br\Date and Time Signed: 06/04/24 10:43 EDT C-reactive proteinon 024 CRP [Mass/Vol] 0.4 mg/dL 0.000 - 0.744 mg/dL [facility] CRP [Mass/Vol]on 05-14-2024 [facility] C REACTIVE PROTEIN 0.4 mg/dL Normal 0.000-0.744 [facility] Comment on above: Performed By: #### 8 2477-1, 1988-01, 6969-0, 6968-2 #### [facility] ([id number]) [address] [place] [address], [place] [address] #### [id number] #### [facility] ([id number]) [address] [place] [address], ESR Photometric method (Bld) [Velocity]on 05-14-2024 [facility] ESR, ERYTHROCYTE SEDIMENTATION RATE 4 mm/h Normal 0-20 [facility] Comment on above: Performed By: #### 8 2477-1, 1988-01, 6969-0, 6968-2 #### [facility] ([id number]) [address] [place] [address], [place] [address] #### [id number] #### [facility] ([id number]) [address] [place] [address], Erythrocyte Sedimentation Ra te (ESR)on 05-14-2024 ESR Photometric method (Bld) [Velocity] 4 mm/h 0 - 20 mm/h [facility] Myeloperoxidase Ab Qn (S)on 05-14-2024 Myeloperoxidase Ab <0.2 Normal <1.0 [facility] Comment on above: Performed By: #### 8 2477-1, 1988-01, 6969-0, 6968-2 #### [facility] ([id number]) [address] [place] [address], [address] [place] [address] #### [id number] #### [facility] ([id number]) [address] [place] [address], Neutrophil cytoplasmic Ab pa richy IF (S)on 05-14-2024 c-ANCA Negative Normal Negative [facility] Comment on above: Performed By: #### 8 2477-1, 1988-01, 69-0, 6968-2 #### [facility] ([id number]) [address] [place] [address], [address] [place] [address] #### 84150-8 #### [facility] ([id number]) [address] [place] [address], p-ANCA Negative Normal Negative [facility] Comment on above: Result Comment: NOTE Negative for cANCA and pANCA patterns by immunofluorescence. ADDITIONAL INFORMATION This test was developed and its performance characteristics determined by [facility] in a manner consistent with CLIA requirements. This test has not been cleared or approved by the U.S. Food and Drug Administration. Test Performed by: [facility] - [address] [address] Humanities Department Chair: Garth Patterson Ph.D.; CLIA# [id number] Performed By: #### 8 2477-1, 1988-01, 6969-0, 6968 #### [facility] ([id number]) [address] [facility], [address] [place] [address] #### 68099-4 #### [facility] ([id number]) [address] [facility], Proteinase 3 Ab Qn (S)on Proteinase 3 IgG Ab <0.2 Normal <1.0 [facility] Comment on above: Performed By: #### 8 2477-1, 1987-5, 6969-0, 6968-2 #### [facility] ([id number]) [address] [facility], [address] [place] [address] #### 40045-6 #### [facility] ([id number]) [address] [facility], XR SACROILIAC JOINTS MIN 3 V WSon 05-14-2024 XR SACROILIAC JOINTS MIN 3 VWS XR SACROILIAC JOINTS MIN 3 VWS XR SACROILIAC JOINTS MIN 3 VWS Sacroiliac pain Findings: There is no fracture or destructive lesion. Impression: * No acute findings. Unremarkable sacroiliac joints. * Consider MRI if you suspect occult process. Finalized by Viraj Corey MD on 05/14/2024 6:53 PM Normal [facility] XR Sacroiliac Joint 3 Viewso n 05-14-2024 [...] Viraj Corey MD on 05/14/2024 6:53 PM [employer] Radiology Study observation (narrative) [employer] XR Sacroiliac Joint 3 ViewsO rdered By: Viraj Corey on 05-14-2024 [employer] Work Phone: ALL TOTAL PROTEINon 04-29-20 24 Protein [Mass/Vol] 8.1 g/dL 6.4 - 8.2 g/dL [facility] Provider Letteron 04-29-2024 Provider Letter Provider Letter [address] [place], [place] [id number] April 29, 2024 A[address]E [address]OH [address] [place] [id number] : [address] Wayne Montenegro MD, The above patient has been evaluated at your request for preoperative clearance. After assessment of available pertinent labs and diagnostic tests, I feel this patient is medically optimized for surgery. Final discretion of whether the patient is cleared for surgery remains up to the surgeon/anesthesiolog ist. Thank you, REYNA Rizzo [facility] Ambulatory Visit Summaryon 0 04-23-2024 Ambulatory Visit [...] desogestrel-ethinyl estradiol (Apri) esomeprazole (Nexium 20 mg Kyle-) naproxen (naproxen 500 mg Tab) phentermine (phentermine [...] EDT With: Darlene Dillard Where: [facility] [place] Sunday 10:00 AM EDT With: Darlene Dillard Where: [facility] [place] Sunday 10:00 AM EDT With: Lidia Jones Where: [place] [id number]- Medications What How Much When Why Instructions New phentermine (phentermine 37.5 mg Tab) 1 Tablets By Mouth Every day Pre-op exam Non-smoker BMI 30.0-30.9,adult Pickup at [facility] [id number] Unchanged desogestrel-ethinyl estradiol (Apri) 1 Tablets By Mouth Every day Unchanged esomeprazole (Nexium 20 mg Cap-DR) 1 Capsules By Mouth Every day Unchanged naproxen (naproxen 500 mg Tab) 1 Tablets By Mouth 2 times a day Unchanged ubrogepant (Ubrelvy 100 mg oral tablet) 1 Tablets By Mouth Once may repeat dose in 2 hours if needed Pharmacy Information [facility] [id number]: [address] [place], [place] [id number] [phone] Allergies Nubain (Nausea) Silicone (simethicone) obsolete (Hives) [...] choosing us for your care. Normal [facility] Family Medicine Office/Clini c Noteon 04-23-2024 Family Medicine Office/Clinic Note Family Medicine Office/Clinic Note HPI Staff Pt is here today to review EMG on BLE done 03/26/24. Surgery clearance for hip replacement May 21 in [place] History of Present Illness pt presents today [...] Daily, # 30 tab(s), Refills(s) 0, [facility] [id number], 161.6, cm, 04/23/24 9:21:00 EDT, Height/Length Dosing, 78.7, kg, 04/23/24 9:21:00 EDT, Weight Dosing CBC w/ Auto Diff Comprehensive Metabolic Panel ECG 12 Lead Adult Est Preventative 18 to 39 years 13551 HgbA1c PT & PTT UA with Cult [...] Ordered: Est Preventative 18 to 39 years [address] [facility] [place] Ambulatory Referral 3. PTSD (post-traumatic stress disorder) (F43.10: Post-traumatic stress disorder, unspecified) pt has never been screened or diagnosed and has never been to psych to discuss her childhood. Ordered: Est Preventative 18 to 39 years [address] [facility] [place] Ambulatory Referral 4. Non-smoker (Z78.9: Other specified health status) continue not smoking Ordered: phentermine, 37.5 mg = 1 tab(s), Oral, Daily, # 30 tab(s), Refills(s) 0, Pharmacy: [facility] [id number], 161.6, cm, 04/23/24 9:21:00 EDT, Height/Length Dosing, 78.7, kg, 04/23/24 9:21:00 EDT, Weight Dosing phentermine, 37.5 mg = 1 tab(s), Oral, Daily, 30 day supply bmi 31.13, # 30 tab(s), Refills(s) 0, Pharmacy: [facility] [id number], 161.6, cm, 01/22/24 9:54:00 EDT, Height/Length Dosing, 76.3, kg, 01/22/24 9:54:00 EDT, Weight Dosing CBC w/ Auto Diff Comprehensive Metabolic Panel ECG 12 Lead Adult Est Preventative 18 to 39 years [address] [facility] [place] Ambulatory Referral HgbA1c PT & PTT UA with Cult Rflx XR Chest 2 Views 5. BMI 30.0-30.9,adult (Z68.30: Body mass index [BMI] 30.0-30.9, adult) restarted adipex. medication agreement signed. RTC 6 weeks. pt is having surgery 05/21 so she may need to reschedule appointment Ordered: phentermine, 37.5 mg = 1 tab(s), Oral, Daily, # 30 tab(s), Refills(s) 0, Pharmacy: [facility] [id number], 161.6, cm, 04/23/24 9:21:00 EDT, Height/Length Dosing, 78.7, kg, 04/23/24 9:21:00 EDT, Weight Dosing CBC w/ Auto Diff Comprehensive Metabolic Panel ECG 12 Lead Adult Est Preventative 18 to 39 years [address] [facility] [place] Ambulatory Referral HgbA1c PT & PTT [...] mg Cap-DR (more content not included)... Normal [facility] Comment on above: Result Comment: Elec tronically [...] Appointments Sunday 1:00 PM EDT With: Where: [facility] Sunday 10:00 AM EDT With: Darlene Dillard Where: [facility] [place] Sunday 10:00 AM EDT With: Darlene Dillard Where: [facility] [place] Medications What How Much When Why [...] for choosing us for your care. Normal [facility] RAD - CT Reporton 03-05-2024 RAD - CT Report [id number] .00TIFF Normal [facility] MR HIP RIGHT WO IV [...] Visit Summaryon 0 02-20-2024 Ambulatory Visit Summary SHUBHAMASHLEE :1985 Visit Date:02/20/2024 Ambulatory Visit Instructions Your [...] EDT With: Darlene Dillard Where: [facility] [place] Medications What How [...] for choosing us for your care. Normal [facility] Family Medicine Office/Clini c Noteon 02-20-2024 Family [...] symptoms, # 30 cap(s), Refills(s) 1, Pharmacy: [facility] [id number], 161.6, cm, 12/20/23 10:24:00 EDT, Height/Length Dosing, 77, kg, 12/20/23 10:24:00 EDT, Weight Dosing montelukast, 10 mg = 1 tab(s), Oral, qPM, # 30 tab(s), Refills(s) 0, Pharmacy: [facility] [id number], 161.6, cm, 12/20/23 10:24:00 EDT, Height/Length Dosing, [...] virus vaccine, inacti (more content not included)... [facility] Comment on above: Result Comment: Elec tronically Signed By: Lidia Jones\.br\Date and Time Signed: 02/20/24 09:50 EDT Ambulatory Visit Summaryon 0 02-19-2024 Ambulatory Visit Summary ASHLEE JALLOH :1985 Visit Date:02/19/2024 Ambulatory Visit Instructions Your Diagnosis Recurrent severe major depressive disorder co-occurrent with anxiety Posttraumatic stress disorder Your Care Team Attending Physician - Jose [facility], Darlene Jenkins Primary Care Physician - Lidia Jones This Is Your Medications List [facility] Prescription (ESTRADIOL 1 MG TABLET) cetirizine (cetirizine [...] 8:20 AM EDT With: Lidia Jones Where: [facility] Ambulatory Visit Summaryon 0 02-07-2024 Ambulatory Visit Summary ASHLEE JALLOH :1985 Visit Date:02/07/2024 Ambulatory Visit Instructions Your Diagnosis Recurrent severe major depressive disorder co-occurrent with anxiety Posttraumatic stress disorder Your Care Team Attending Physician - Darlene Dillard Primary Care Physician - Lidia Jones This Is Your Medications List [facility] Prescription (ESTRADIOL 1 MG TABLET) cetirizine (cetirizine [...] 8:00 AM EDT With: Darlene Dillard Where: [facility] Sunday 8:20 AM EDT With: Lidia Jones Where: [facility] 02-05-2024 Sleep Studies [id number]. 00TIFF [facility] Ambulatory Visit Summaryon 0 01-22-2024 Ambulatory Visit Summary SHUBHAMASHLEE NOLAN :1985 Visit Date:01/22/2024 Ambulatory Visit Instructions Your Diagnosis Encounter for weight management BMI 29.0-29.9,adult Non-smoker Your Care Team Attending Physician - Lidia Jones Primary Care Physician - Lidia Jones This Is Your Medications List [facility] Prescription (ESTRADIOL 1 MG TABLET) cetirizine (cetirizine [...] EDT With: Darlene Dillard Where: [facility] Sunday 8:20 AM EDT With: Lidia Jones Where: [facility] [place] Normal [facility] Family Medicine Office/Clini c Noteon 01-22-2024 Family [...] 31.13, # 30 tab(s), Refills(s) 0, Pharmacy: [facility] [id number], 161.6, cm, 01/22/24 9:54:00 EDT, Height/Length Dosing, 76.3, kg, 01/22/24 9:54:00 EDT, Weight Dosing phentermine, 37.5 mg = 1 tab(s), Oral, Daily, 30 day supply bmi 31.13, # 30 tab(s), Refills(s) 0, Pharmacy: [facility] [id number], 161.6, cm, 12/20/23 10:24:00 EDT, Height/Length Dosing, 77, kg, 12/20/23 10:24:00 EDT, Weight Dosing ropinirole, 1 mg = 1 tab(s), Oral, Bedtime, 1 to 3 hours before bedtime, # 30 tab(s), Refills(s) 2, Pharmacy: [facility] [id number], 161.6, cm, 05/18/23 10:58:00 EDT, Height/Length Dosing, [...] influenza virus vaccine, inactivated 07/14/2019 Recorded Normal [facility] Comment on above: Result Comment: Elec tronically Signed By: Lidia Jones\.br\Date and Time Signed: 01/22/24 10:56 EDT Interdisciplinary Note - Soc ial Workeron 01-17-2024 Interdisciplinary Note - Binder Cutter Hand Consult for positive depression screen received. SW made tc to patient to discuss this. She states that these issues have been ongoing since childhood and she knows she needs to get in to see someone. Patient was agreeable to a referral being sent to [facility] for follow up. She reports that she has anxiety, depression, and PTSD. Referral was sent. SW will remain available. Normal [facility] Ambulatory Visit Summaryon 0 12-20-2023 Ambulatory Visit Summary ASHLEE JALLOH :1985 Visit Date:12/20/2023 Ambulatory Visit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 swim plug will be sent to the route aide. Due to the current ear infection and inability to make a new impression, the route aide has agreed to extend the remake warranty. Ashlee will be called once the new swim mold is in for dispense and to check fit. n/c Electronically signed by Yulia Hi 07/12/22 13:23 EDT Normal [facility] US PELVIS AND TRANSVAGon US PELVIS [...] CINDY PINK Date: 2022-07-06 17:16 Normal [facility] Otolaryngology Office/Clinic Noteon 07-04-2022 Otolaryngology Office/Clinic Note [...] if further surgical intervention is warranted. Ordered: [id number] Air bone pure tone audiometry POC CT IAC w/o Contrast Tympanometry POC Orders: predniSONE, 3 tabs, Oral, Daily, then 2 qam for 4 days then 1 qam for 3 days, X 3 days, # 20 tabs, 0 Refill(s), 07/07/22 10:51:00 EDT, Pharmacy: [facility] [id number] 2. Perforated right tympanic membrane on examination [...] LIGATION section (more content not included)... Normal [facility] Otolaryngology Office/Clinic Note Chief Complaint Chief Complaint 'I am in for recurrent ear infections.' Physical Exam Vitals & Measurements T: 36.6 ?C (Temporal Artery) HT: 163 cm WT: 87.4 kg WT: 87.4 kg (Dosing) BMI: 32.9 Additional Vitals No qualifying data available. Assessment/Plan 1. Otorrhea of right ear Ordered: [id number] Air bone pure tone audiometry POC Tympanometry [...] Never Smokeless tobacco use:. Missy Sims PA-C [facility] Comment on above: Order Comment: conoryaneth gale C-Reactive Proteinon 022 CRP [Mass/Vol] 3.1 mg/L 0 - 5 mg/L [facility] Rheumatoid Factoron 06-21-20 22 Rheumatoid Factor <10 NINF [facility] Sedimentation Rateon 022 Sed Rate 9 [facility] PAP ACOG PANEL 2: 30 to 65on 04-04-2022 . . Normal [facility] Comment on above: Result Comment: Perf ormed at: WB Performed By: #### [id number] #### [facility] [address] [place] [address] Dr. Cesar Tolbert Age Gdln ACOG Testing 30-65 [facility] Comment on above: Performed By: #### [id number] #### [facility] [address] [address] [address] Cesar Tolbert DIAGNOSIS: Comment [facility] Comment on above: Result Comment: NEGA TIVE FOR INTRAEPITHELIAL LESION OR MALIGNANCY. THIS SPECIMEN WAS RESCREENED PART OF OUR [employer]WN [employer]OWER REPAIRER PROGRAM. Performed at: WB Performed By: #### [id number] #### [facility] [address] [place] [address] Dr. Cesar Tolbert HPV Aptima Positive Abnormal Negative [facility] Comment on above: Result Comment: This nucleic acid amplification test detects fourteen high-risk HPV types (16,18,31,33,35,39,45,51,52,56,58,59,66,68) without differentiation. Performed at: =G Performed By: #### [id number] #### [facility] [address] [place] [address] Dr. Cesar Tolbert HPV Genotype 16 Negative Normal Negative [facility] Comment on above: Result Comment: Perf ormed at: =G Performed By: #### [id number] #### [facility] [address] [place] [address] Dr. Cesar Tolbert HPV Genotype 18,45 Negative Normal Negative [facility] Comment on above: Result Comment: Perf ormed at: =G Performed By: #### [id number] #### [facility] [address] [place] [address] Dr. Cesar Tolbert Methodology: Comment Normal [facility] Comment on above: Result Comment: This liquid based ThinPrep(R) pap test was screened with the use of an image guided system. Performed at: WB Performed By: #### [id number] #### [facility] [address] [place] [address] Dr. Cesar Tolbert Note: Comment Normal [facility] Comment on above: Result Comment: The Pap smear is a screening test designed to aid in the detection of premalignant and malignant conditions of the uterine cervix. It is not a diagnostic procedure and should not be used as the sole means of detecting cervical cancer. Both false-positive and false-negative reports do occur. . Performed at: WB Performed By: #### [id number] #### [facility] [address] [place] [address] Dr. Cesar Tolbert Performed by: Comment Normal [facility] Comment on above: Result Comment: Rom Collier Scientific Software Developer (ASCP) Performed at: WB Performed By: #### [id number] #### [facility] [address] [address] [address] Cesar Tolbert QC reviewed by: Comment Normal [facility] Comment on above: Result Comment: Halle Bazan, Scientific Software Developer (ASCP) Performed at: WB Performed By: #### [id number] #### [facility] [address] [address] [address] Cesar Tolbert Specimen adequacy: Comment Normal [facility] Comment on above: Result Comment: Sati sfactory for evaluation. No endocervical component is identified. Performed at: WB Performed By: #### [id number] #### [facility] [address] [address] [address] Cesar Tolbert APTTon 10-10-2021 aPTT Coag (Bld) [Time] 27.4 s [facility] Comment on above: IV Heparin Therapy Range: 62.0-94.0 [facility] [employer] Basic Metabolic Panelon 09-12 Anion gap [Moles/Vol] 13 mmol/L 9 - 17 mmol/L [facility] Calcium [Mass/Vol] 9.3 mg/dL 8.6 - 10. 4 mg/dL [facility] Chloride [Moles/Vol] 100 mmol/L 98 - 10 7 mmol/L [facility] CO2 [Moles/Vol] 24 mmol/L 20 - 31 mmol/L [facility] Creatinine [Mass/Vol] 0.77 mg/dL 0.50 - 0.90 mg/dL [facility] GFR >60 >60 mL/min [facility] GFR Non- >60 >60 mL/min [facility] Glucose [Mass/Vol] 121 mg/dL High 70 - 99 mg/dL [facility] Interpretation and review of laboratory results Abnormal [facility] Potassium [Moles/Vol] 4.1 mmol/L 3.7 - 5.3 mmol/L [facility] Sodium [Moles/Vol] 137 mmol/L 135 - 144 mmol/L [facility] Urea nitrogen (BldV) [Mass/Vol] 11 mg/dL 6 - 20 mg/dL [facility] Urea nitrogen/Creatinine (Bld) [Mass ratio] 14 [facility] CBCon 10-10-2021 Hematocrit (Bld) [Volume fraction] 39.0 % 36.3 - 47.1 % [facility] Hemoglobin.gastrointes tinal spec 1 Ql (Stl) 12.4 g/dL 11.9 - 15.1 g/dL [facility] MCH (RBC) [Entitic mass] 27.4 pg 25.2 - 33.5 pg [facility] MCHC (RBC) [Mass/Vol] 31.8 g/dL 28.4 - 34.8 g/dL [facility] MCV (RBC) [Entitic vol] 86.3 fL 82.6 - 102.9 fL [facility] NRBC Automated 0.0 0.0 per 100 WBC [facility] Platelet distribution width (Bld) [Ratio] 12.8 % 11.8 - 14.4 % [facility] Platelet mean volume (Bld) [Entitic vol] 9.8 fL 8.1 - 13.5 fL [facility] Platelets (Bld) [#/Vol] 290 10*3/uL [facility] RBC (Bld) [#/Vol] 4.52 10*6/uL 3.95 - 5.1 1 m/uL [facility] WBC (Bld) [#/Vol] 7.8 10*3/uL [facility] Laboratory - Chemistry and C hemistry - challengeon 10-10-2021 GFR/1.73 sq M.predicted MDRD (S/P/Bld) [Vol rate/Area] [facility] Comment on above: Average GFR for 30-3 9 years old: 107 mL/min/1.73sq m Chronic Kidney Disease: <60 mL/min/1.73sq m Kidney failure: <15 mL/min/1.73sq m eGFR calculated using average adult body mass. Additional eGFR calculator available at: http://www.CriticalMetrics.[employer]/multiple_crcl_2011.htm Stage 1: Some kidney damage normal GFR Stage 2: Mild kidney damage GFR 60-89 Stage 3: Moderate kidney damage GFR 30-59 Stage 4: Severe kidney damage GFR 15-29 Stage 5: Severe kidney damage GFR <15 ESRD - chronic treatment by dialysis or transplant Protime-INRon 10-10-2021 INR Coag (Bld) [Relative time] 1.1 {INR} [employer] Comment on above: Non-therapeutic Range: INR = 0.9-1.2 Therapeutic Range: Moderate Anticoagulant Intensity: INR = 2.0-3.0 High Anticoagulant Intensity: INR = 2.5-3.5 PT Coag (PPP) [Time] 13.9 s [facility] [employer] CBC Auto DifferentialOrdered By: Tiffany Tejeda on 05-31-2021 Absolute Eos # 0.17 [employer] [facility] Work Phone: Absolute Immature Granulocyte <0.03 [employer] Work Phone: Absolute Lymph # 2.54 [employer] [facility] Work Phone: Absolute [place] # 0.51 [employer] [facility] Work Phone: Basophils (Bld) [#/Vol] 0.03 10*3/uL [employer] Work Phone: Basophils/100 WBC (Bld) 0 % 0 - 2 % [employer] Work Phone: Differential Type NOT REPORTED [employer] Work Phone: Eosinophils/100 WBC (Bld) 2 % 1 - 4 % [employer] Work Phone: Hematocrit (Bld) [Volume fraction] 35.2 % Low 36.3 - 47.1 % [employer] Work Phone: Hemoglobin.gastrointes tinal spec 1 Ql (Stl) 11.0 g/dL Low 11.9 - 15.1 g/dL [employer] Work Phone: Immature granulocytes/100 WBC (Bld) 0 % 0 [employer] Work Phone: Interpretation and review of laboratory results Abnormal [employer] Phone: Lymphocytes/100 WBC (Bld) 31 % 24 - 43 % [employer] Work Phone: MCH (RBC) [Entitic mass] 27.6 pg 25.2 - 33.5 pg [employer] Work Phone: MCHC (RBC) [Mass/Vol] 31.3 g/dL 28.4 - 34.8 g/dL [employer] ([employer]) Phone: MCV (RBC) [Entitic vol] 88.2 fL 82.6 - 102.9 fL [employer] [facility]) Phone: Monocytes/100 WBC (Bld) 6 % 3 - 12 % [employer] Work Phone: NRBC Automated 0.0 0.0 per 100 WBC [employer] ([facility]) Phone: Platelet distribution width (Bld) [Ratio] 13.2 % 11.8 - 14.4 % [employer] ([employer]) Phone: Platelet Estimate NOT REPORTED [employer] ([facility]) Phone: Platelet mean volume (Bld) [Entitic vol] 10.1 fL 8.1 - 13.5 fL [employer] ([employer]) Phone: Platelets (Bld) [#/Vol] 290 10*3/uL [employer] ([employer]) Phone: RBC (Bld) [#/Vol] 3.99 10*6/uL 3.95 - 5.1 1 m/uL [employer] Work Phone: RBC (Bld) [#/Vol] NOT REPORTED [employer] ([facility]) Phone: Segmented neutrophils/100 WBC (Bld) 61 % 36 - 65 % [employer] Work Phone: Segs Absolute 4[employer] Work Phone: WBC (Bld) [#/Vol] 8.2 10*3/uL [employer] Work Phone: WBC (Bld) [#/Vol] NOT REPORTED [employer] ([facility]) Phone: [employer] Work Phone: Comprehensive Metabolic Pane lOrdered By: Tiffany Tejeda on 05-31-2021 Albumin [Mass/Vol] 4.6 g/dL 3.5 - 5.2 g/dL [employer] ([facility]) Phone: Albumin/Globulin [Mass ratio] 1.8 {ratio} [employer] ([facility]) Phone: ALP (Bld) [Catalytic activity/Vol] 89 U/L 35 - 104 U/L [employer] ([employer]) Phone: ALT [Catalytic activity/Vol] 21 U/L 5 - 33 U/L [employer] ([facility]) Phone: Anion gap [Moles/Vol] 11 mmol/L 9 - 17 mmol/L [employer] ([facility]) Phone: AST [Catalytic activity/Vol] 22 U/L <32 [employer] ([facility]) Phone: Bilirubin [Mass/Vol] 0.44 mg/dL 0.3 - 1 .2 mg/dL [employer] ([facility]) Phone: Calcium [Mass/Vol] 9.6 mg/dL 8.6 - 10. 4 mg/dL [employer] ([facility]) Phone: Chloride [Moles/Vol] 101 mmol/L 98 - 10 7 mmol/L [employer] ([facility]) Phone: CO2 [Moles/Vol] 25 mmol/L 20 - 31 mmol/L [employer] ([facility]) Phone: Creatinine [Mass/Vol] 0.69 mg/dL 0.50 - 0.90 mg/dL [employer] ([facility]) Phone: Free PSA/Total PSA [Mass fraction] 7.2 g/dL 6.4 - 8.3 g/dL [employer] ([facility]) Phone: GFR >60 >60 mL/min [employer] Phone: GFR Non- >60 >60 mL/min [employer] ([facility]) Phone: Glucose [Mass/Vol] 102 mg/dL High 70 - 99 mg/dL [employer] ([facility]) Phone: Interpretation and review of laboratory results Abnormal [employer] ([employer]) Phone: Potassium [Moles/Vol] 4.0 mmol/L 3.7 - 5.3 mmol/L [employer] Work Phone: Sodium [Moles/Vol] 137 mmol/L 135 - 144 mmol/L [employer] ([facility]) Phone: Urea nitrogen (BldV) [Mass/Vol] 26 mg/dL High 6 - 20 mg/dL [employer] Work Phone: Urea nitrogen/Creatinine (Bld) [Mass ratio] 38 High [employer] [facility]) Phone: [employer] [facility] Phone: Iron and TIBCOrdered By: Shannon Tejeda on 05-31-2021 Interpretation and review of laboratory results Abnormal [employer] ([facility]) Phone: Iron [Mass/Vol] 38 ug/dL 37 - 145 ug/dL [employer] Work Phone: Iron Saturation 10 % Low 20 - 55 % [employer] [facility] Work Phone: TIBC 389 ug/dL 250 - 450 ug/dL [employer] Work Phone: UIBC 351 ug/dL High 112 - 347 ug/dL [employer] [facility]) Phone: [employer] [facility] Phone: Laboratory - Chemistry and C hemistry - challengeOrdered By: Tiffany Tejeda on 05-31-2021 GFR/1.73 sq M.predicted MDRD (S/P/Bld) [Vol rate/Area] [employer] ([facility]) Phone: Comment on above: Average GFR for 30-3 9 years old: 107 mL/min/1.73sq m Chronic Kidney Disease: <60 mL/min/1.73sq m Kidney failure: <15 mL/min/1.73sq m eGFR calculated using average adult body mass. Additional eGFR calculator available at: http://www.CriticalMetrics.[employer]/multiple_crcl_2012.htm Stage 1: Some kidney damage normal GFR Stage 2: Mild kidney damage GFR 60-89 Stage 3: Moderate kidney damage GFR 30-59 Stage 4: Severe kidney damage GFR 15-29 Stage 5: Severe kidney damage GFR <15 ESRD - chronic treatment by dialysis or transplant Lipid PanelOrdered By: Tiffany Tejeda on 05-31-2021 Cholesterol [Mass/Vol] 243 mg/dL High <200 [employer] Phone: Comment on above: Cholesterol Guidelines: <200 Desirable 200-240 Borderline >240 Undesirable Cholesterol in HDL [Mass/Vol] 51 mg/dL >40 [employer] ([facility]) Phone: Comment on above: HDL Guidelines: <40 Undesirable 40-59 Borderline >59 Desirable Cholesterol in LDL [Mass/Vol] 167 mg/dL High 0 - 130 mg/dL [employer] ([facility]) Phone: Comment on above: LDL Guidelines: <100 Desirable 100-129 Near to/above Desirable 130-159 Borderline >159 Undesirable Direct (measured) LDL and calculated LDL are not interchangeable tests. Cholesterol in VLDL [Mass/Vol] NOT REPORTED 1 - 30 mg/dL [employer] ([facility]) Phone: Cholesterol.total/Chol esterol in HDL [Mass ratio] 4.8 {ratio} <5 [employer] ([facility]) Phone: Interpretation and review of laboratory results Abnormal [employer] ([facility]) Phone: Triglyceride [Mass/Vol] 127 mg/dL <150 [employer] ([facility]) Phone: Comment on above: Triglyceride Guidelines: <150 Desirable 150-199 Borderline 200-499 High >499 Very high Based on AHA Guidelines for fasting triglyceride, June 2012. [employer] ([facility]) Phone: Rheumatoid FactorOrdered By: Tiffany Tejeda on 05-31-2021 Rheumatoid Factor <10 <14 IU/mL [employer] Phone: [employer] ([facility]) Phone: Sedimentation rate, automate dOrdered By: Tiffany Tejeda on 05-31-2021 Sed Rate 10 mm 0 - 20 mm [employer] ([facility]) Phone: [employer] [facility] Phone: T4, FreeOrdered By: Tiffany Sutherland ght on 05-31-2021 Thyroxine, Free 1.22 ng/dL 0.93 - 1.70 ng/dL [employer] ([facility]) Phone: [employer] [facility] Phone: TSH without ReflexOrdered By : Tiffany Tejeda on 05-31-2021 TSH Qn 2.47 m[IU]/L [employer] ([facility] Phone: [employer] [facility] Phone: APTTOrdered By: Rosas Hill air on 04-18-2021 aPTT Coag (Bld) [Time] 24.4 s [employer] Phone: Comment on above: IV Heparin Therapy Range: 62.0-94.0 [employer] ([facility]) Phone: Basic Metabolic PanelOrdered By: Rosas Jauregui Clair on 04-18-2021 Anion gap [Moles/Vol] 10 mmol/L 9 - 17 mmol/L [employer] ([facility]) Phone: Calcium [Mass/Vol] 9.5 mg/dL 8.6 - 10. 4 mg/dL [employer] ([facility]) Phone: Chloride [Moles/Vol] 104 mmol/L 98 - 10 7 mmol/L [employer] ([facility]) Phone: CO2 [Moles/Vol] 22 mmol/L 20 - 31 mmol/L [employer] ([facility]) Phone: Creatinine [Mass/Vol] 0.83 mg/dL 0.50 - 0.90 mg/dL [employer] ([facility]) Phone: GFR >60 >60 mL/min [employer] Phone: GFR Non- >60 >60 mL/min [employer] ([facility]) Phone: Glucose [Mass/Vol] 119 mg/dL High 70 - 99 mg/dL [employer] ([facility]) Phone: Interpretation and review of laboratory results Abnormal [employer] ([facility]) Phone: Potassium [Moles/Vol] 4.7 mmol/L 3.7 - 5.3 mmol/L [employer] ([facility]) Phone: Sodium [Moles/Vol] 136 mmol/L 135 - 144 mmol/L [employer] ([facility]) Phone: Urea nitrogen (BldV) [Mass/Vol] 21 mg/dL High 6 - 20 mg/dL [employer] ([facility]) Phone: Urea nitrogen/Creatinine (Bld) [Mass ratio] 25 High [employer] ([facility]) Phone: [employer] ([facility]) Phone: CBCOrdered By: Rosas riley on 04-18-2021 Hematocrit (Bld) [Volume fraction] 35.9 % Low 36.3 - 47.1 % [employer] ([facility]) Phone: Hemoglobin.gastrointes tinal spec 1 Ql (Stl) 11.8 g/dL Low 11.9 - 15.1 g/dL [employer] ([facility]) Phone: Interpretation and review of laboratory results Abnormal [employer] ([facility]) Phone: MCH (RBC) [Entitic mass] 28.1 pg 25.2 - 33.5 pg [employer] ([facility]) Phone: MCHC (RBC) [Mass/Vol] 32.9 g/dL 28.4 - 34.8 g/dL [employer] ([facility]) Phone: MCV (RBC) [Entitic vol] 85.5 fL 82.6 - 102.9 fL [employer] ([facility]) Phone: NRBC Automated 0.0 0.0 per 100 WBC [employer] ([facility]) Phone: Platelet distribution width (Bld) [Ratio] 12.7 % 11.8 - 14.4 % [employer] ([facility]) Phone: Platelet mean volume (Bld) [Entitic vol] 10.3 fL 8.1 - 13.5 fL [employer] ([facility]) Phone: Platelets (Bld) [#/Vol] 325 10*3/uL [employer] ([facility]) Phone: RBC (Bld) [#/Vol] 4.20 10*6/uL 3.95 - 5.1 1 m/uL [employer] ([facility]) Phone: WBC (Bld) [#/Vol] 7.2 10*3/uL [employer] ([facility]) Phone: [employer] ([facility] Phone: Hemoglobin [id number] By: Se burkett St Sanchez on 04-18-2021 Glucose [Mass/Vol] 120 mg/dL [employer] ([facility]) Phone: Comment on above: The ADA and AACC rec ommend providing the estimated average glucose result to permit better patient understanding of their HBA1c result. HbA1c (Bld) [Mass fraction] 5.8 % 4.0 - 6.0 % [employer] ([facility]) Phone: [employer] ([facility]) Phone: Laboratory - Chemistry and C hemistry - challengeOrdered By: Rosas St Sanchez on 04-18-2021 GFR/1.73 sq M.predicted MDRD (S/P/Bld) [Vol rate/Area] [employer] ([facility]) Phone: Comment on above: Average GFR for 30-3 9 years old: 107 mL/min/1.73sq m Chronic Kidney Disease: <60 mL/min/1.73sq m Kidney failure: <15 mL/min/1.73sq m eGFR calculated using average adult body mass. Additional eGFR calculator available at: http://www.CriticalMetrics.[employer]/multiple_crcl_2012.htm Stage 1: Some kidney damage normal GFR Stage 2: Mild kidney damage GFR 60-89 Stage 3: Moderate kidney damage GFR 30-59 Stage 4: Severe kidney damage GFR 15-29 Stage 5: Severe kidney damage GFR <15 ESRD - chronic treatment by dialysis or transplant Protime-INROrdered By: Ben Pendleton on 04-18-2021 INR Coag (Bld) [Relative time] 1.1 {INR} [employer] ([facility]) Phone: Comment on above: Non-therapeutic Range: INR = 0.9-1.2 Therapeutic Range: Moderate Anticoagulant Intensity: INR = 2.0-3.0 High Anticoagulant Intensity: INR = 2.5-3.5 Interpretation and review of laboratory results Abnormal [employer] ([facility]) Phone: PT Coag (PPP) [Time] 14.3 s High [employer] Phone: [employer] ([facility]) Phone: XR CHEST (2 VW)Ordered By: Nico Pendleton on 04-18-2021 No acute process. [employer] Work Phone: EXAMINATION: TWO XRA Y VIEWS [...] thoracic spine with some DDD again noted. [employer] ([facility]) Phone: Toño, pn Incoming Radiant Results From [employer] - 04/18/2021 10:08 AM EDT EXAMINATION: TWO [...] DDD again noted. IMPRESSION: No acute process. [employer] Work Phone: [employer] Work Phone: CBC Auto DifferentialOrdered By: Charles Pearce on 02-18-2021 Absolute Eos # 0.18 [employer] [facility] Work Phone: Absolute Immature Granulocyte 0.03 [employer] Work Phone: Absolute Lymph # 2.08 [employer] [facility] Work Phone: Absolute [place] # 0.70 [employer] [facility] Work Phone: Basophils (Bld) [#/Vol] 0.06 10*3/uL [employer] ([facility]) Phone: Basophils/100 WBC (Bld) 1 % 0 - 2 % [employer] ([employer]) Phone: Differential Type NOT REPORTED [employer] ([facility]) Phone: Eosinophils/100 WBC (Bld) 2 % 1 - 4 % [employer] ([facility]) Phone: Hematocrit (Bld) [Volume fraction] 36.5 % 36.3 - 47.1 % [employer] ([facility]) Phone: Hemoglobin.gastrointes tinal spec 1 Ql (Stl) 11.8 g/dL Low 11.9 - 15.1 g/dL [employer] ([facility]) Phone: Immature granulocytes/100 WBC (Bld) 0 % 0 [employer] ([facility]) Phone: Interpretation and review of laboratory results Abnormal [employer] ([employer]) Phone: Lymphocytes/100 WBC (Bld) 23 % Low 24 - 43 % [employer] ([employer]) Phone: MCH (RBC) [Entitic mass] 28.1 pg 25.2 - 33.5 pg [employer] ([facility]) Phone: MCHC (RBC) [Mass/Vol] 32.3 g/dL 28.4 - 34.8 g/dL [employer] ([facility]) Phone: MCV (RBC) [Entitic vol] 86.9 fL 82.6 - 102.9 fL [employer] ([facility]) Phone: Monocytes/100 WBC (Bld) 8 % 3 - 12 % [employer] ([facility]) Phone: NRBC Automated 0.0 0.0 per 100 WBC [employer] ([facility]) Phone: Platelet distribution width (Bld) [Ratio] 12.9 % 11.8 - 14.4 % [employer] ([facility]) Phone: Platelet Estimate NOT REPORTED [employer] ([facility]) Phone: Platelet mean volume (Bld) [Entitic vol] 10.4 fL 8.1 - 13.5 fL [employer] ([facility]) Phone: Platelets (Bld) [#/Vol] 290 10*3/uL [employer] ([facility]) Phone: RBC (Bld) [#/Vol] 4.20 10*6/uL 3.95 - 5.1 1 m/uL [employer] Work Phone: RBC (Bld) [#/Vol] NOT REPORTED [employer] ([facility]) Phone: Segmented neutrophils/100 WBC (Bld) 66 % High 36 - 65 % [employer] ([facility]) Phone: Segs Absolute 5[employer] Work Phone: WBC (Bld) [#/Vol] 9.0 10*3/uL [employer] Work Phone: WBC (Bld) [#/Vol] NOT REPORTED [employer] ([facility]) Phone: [employer] Work Phone: Comprehensive Metabolic Pane l w/ Reflex to MGOrdered By: Charles Pearce on 02-18-2021 Albumin [Mass/Vol] 4.3 g/dL 3.5 - 5.2 g/dL [employer] ([facility]) Phone: Albumin/Globulin [Mass ratio] 1.5 {ratio} [employer] ([facility]) Phone: ALP (Bld) [Catalytic activity/Vol] 84 U/L 35 - 104 U/L [employer] ([facility]) Phone: ALT [Catalytic activity/Vol] 13 U/L 5 - 33 U/L [employer] ([facility]) Phone: Anion gap [Moles/Vol] 11 mmol/L 9 - 17 mmol/L [employer] ([facility]) Phone: AST [Catalytic activity/Vol] 15 U/L <32 [employer] ([facility]) Phone: Bilirubin [Mass/Vol] 0.16 mg/dL Low 0.3 - 1 .2 mg/dL [employer] ([facility] Phone: Calcium [Mass/Vol] 9.2 mg/dL 8.6 - 10. 4 mg/dL [employer] ([facility]) Phone: Chloride [Moles/Vol] 105 mmol/L 98 - 10 7 mmol/L [employer] ([facility]) Phone: CO2 [Moles/Vol] 20 mmol/L 20 - 31 mmol/L [employer] ([facility]) Phone: Creatinine [Mass/Vol] 0.88 mg/dL 0.50 - 0.90 mg/dL [employer] ([facility]) Phone: Free PSA/Total PSA [Mass fraction] 7.1 g/dL 6.4 - 8.3 g/dL [employer] ([facility]) Phone: GFR >60 >60 mL/min [employer] Phone: GFR Non- >60 >60 mL/min [employer] ([facility]) Phone: Glucose [Mass/Vol] 89 mg/dL 70 - 99 mg/dL [employer] ([facility]) Phone: Interpretation and review of laboratory results Abnormal [employer] ([facility]) Phone: Potassium [Moles/Vol] 4.3 mmol/L 3.7 - 5.3 mmol/L [employer] ([facility]) Phone: Sodium [Moles/Vol] 136 mmol/L 135 - 144 mmol/L [employer] ([facility] Phone: Urea nitrogen (BldV) [Mass/Vol] 19 mg/dL 6 - 20 mg/dL [employer] ([facility] Phone: Urea nitrogen/Creatinine (Bld) [Mass ratio] 22 High [employer] ([facility]) Phone: [employer] [facility] Phone: HCG Qualitative, SerumOrdere d By: Charles Pearce on 02-18-2021 hCG Qual Negative NEGATIVE [employer] ([facility]) Phone: Comment on above: Specimens with hCG l evels near the threshold of the test (25 mIU/mL) may give a negative or indeterminate result. In such cases, another test should be performed with a new specimen in 48-72 hours. If early is suspected clinically in this setting, correlation with quantitative serum b-hCG level is suggested. [employer] has confirmed the use of plasma for this test. This has not been cleared or approved by the U.S. Food and Drug Administration. The FDA has determined that such clearance is not necessary. [employer] ([facility]) Phone: Laboratory - Chemistry and C hemistry - challengeOrdered By: Charles Pearce on 02-18-2021 GFR/1.73 sq M.predicted MDRD (S/P/Bld) [Vol rate/Area] [employer] ([facility]) Phone: Comment on above: Average GFR for 30-3 9 years old: 107 mL/min/1.73sq m Chronic Kidney Disease: <60 mL/min/1.73sq m Kidney failure: <15 mL/min/1.73sq m eGFR calculated using average adult body mass. Additional eGFR calculator available at: http://www.CriticalMetrics.[employer]/multiple_crcl_2012.htm Stage 1: Some kidney damage normal GFR Stage 2: Mild kidney damage GFR 60-89 Stage 3: Moderate kidney damage GFR 30-59 Stage 4: Severe kidney damage GFR 15-29 Stage 5: Severe kidney damage GFR <15 ESRD - chronic treatment by dialysis or transplant Urinalysis with microscopicO rdered By: Chaz Mercado on 02-18-2021 - [employer] Work Phone: Amorphous, UA 1+ Abnormal None [employer] Work Phone: Bacteria, UA 1+ Abnormal None [employer] Work Phone: Bilirubin Urine Negative NEGATIVE [facility] Work Phone: Casts UA NOT REPORTED /LPF [facility] Work Phone: Color, UA YELLOW YELLOW [facility] Work Phone: Crystals, UA NOT REPORTED None /HPF [facility] Work Phone: Epithelial Cells UA 2 TO 5 [facility] Work Phone: Glucose, Ur Negative NEGATIVE [employer] Work Phone: Interpretation and review of laboratory results Abnormal [employer] Work Phone: Ketones Ql (U) Negative NEGATIVE [employer] Work Phone: Leukocyte esterase Test strip Ql (U) Negative NEGATIVE [facility] Work Phone: Mucus, UA NOT REPORTED None [facility] Work Phone: Nitrite, Urine Negative NEGATIVE [employer] Work Phone: Other Observations UA NOT REPORTED NOT REQ. M [facility] [employer] Work Phone: pH, UA 6.0 [facility] [employer] Work Phone: Protein, UA Negative NEGATIVE [facility] Work Phone: RBC, UA 0 TO 2 [facility] Work Phone: Renal Epithelial, UA NOT REPORTED 0 /HPF [employer] Work Phone: Specific [place], UA 1.020 [facility] Phone: Trichomonas, UA NOT REPORTED None [facility] Work Phone: Turbidity UA CLEAR CLEAR [facility] Phone: Urinalysis Comments NOT REPORTED [facility] [employer] Work Phone: Urine Hgb Negative NEGATIVE [facility] Phone: Urobilinogen, Urine Normal Normal [facility] Phone: WBC, UA 2 TO 5 [facility] Phone: Yeast, UA NOT REPORTED None [facility] Phone: [facility] Phone: Wet Prep, GenitalOrdered By: Charles Pearce on 02-18-2021 Direct Exam NO YEAST OBSERVED [facility] Phone: Direct Exam NO TRICHOMONAS SEEN [facility] Phone: Direct Exam NO CLUE CELLS SEEN [facility] Phone: Special Requests NOT REPORTED [facility] Phone: Specimen Description .VAGINA [facility] Phone: [facility] Phone: CT CERVICAL SPINE WO CONTRAS TOrdered By: Rosario Murguia on 01-18-2021 No acute abnormality of the cervical spine. [employer] ([facility]) Phone: EXAMINATION: CT OF THE CERVICAL SPINE [...] There is no prevertebral soft tissue swelling. [employer] ([facility]) Phone: Toño, pn Incoming Radiant Results From [employer] - 01/18/2021 8:26 AM EDT EXAMINATION: CT [...] No acute abnormality of the cervical spine. [employer] ([facility] Phone: CT FACIAL BONES WO CONTRASTO rdered By: Rosario Murguia on 01-18-2021 1. No acute fracture of the facial bones. 2. Mild left facial superficial soft tissue swelling suggestive of contusion. [employer] ([employer] Phone: EXAMINATION: CT OF THE FACE WITHOUT [...] subcutaneous fluid collections or significant fat infiltration. [employer] Work Phone: Toño, [facility] Incoming Radiant Results From [employer] - 01/18/2021 8:24 AM EDT EXAMINATION: CT [...] superficial soft tissue swelling suggestive of contusion. [employer] ([facility] Phone: CT Head WO ContrastOrdered B y: Rosario Murguia on 01-18-2021 No acute intracrania l abnormality. [employer] ([facility] Phone: EXAMINATION: CT OF THE HEAD WITHOUT [...] of the visualized skull or soft tissues. [employer] ([facility] Phone: Toño, [facility] Incoming Radiant Results From [employer] - 01/18/2021 8:23 AM EDT EXAMINATION: CT [...] soft tissues. IMPRESSION: No acute intracranial abnormality. [employer] Work Phone: MRA HEAD WO CONTRASTon 07-29 Vertebral arteries are not included in the examination. Otherwise unremarkable MRA of the brain. [email or web address] EXAMINATION: MRA OF THE HEAD WITHOUT CONTRAST 07/29/2020 9:31 am TECHNIQUE: MRA of the head was performed utilizing [id number] imaging with MIP images. No intravenous contrast was administered. COMPARISON: None HISTORY: ORDERING SYSTEM PROVIDED HISTORY: Facial paresthesia TECHNOLOGIST PROVIDED HISTORY: Is the patient ?->No FINDINGS: ANTERIOR CIRCULATION: No significant stenosis of the intracranial internal carotid, anterior cerebral, or middle cerebral arteries. POSTERIOR CIRCULATION: Vertebral arteries are not including the examination. The basilar artery is patent. The posterior cerebral arteries are patent bilaterally. [facility] [employer] [place], pn Incoming Radiant Results From [employer] - 07/29/2020 10:00 AM EST EXAMINATION: MRA OF THE HEAD WITHOUT CONTRAST 07/29/2020 9:31 am TECHNIQUE: MRA of the head was performed utilizing [id number] imaging with MIP images. No intravenous contrast [...] examination. Otherwise unremarkable MRA of the brain. [facility] ESon 06-15-2020 Radiology exam is complete. No Radiologist dictation. Please follow up with ordering provider. [facility] [place] MRI LUMBAR SPINE WO CONTRAST on [...] abutting the exiting left L5 nerve root. [facility], [place] EXAMINATION: MRI OF THE LUMBAR SPINE WITHOUT [...] abutting the exiting left L5 nerve root. [facility], [place] Toño, Mhpn Incoming Radiant Results From [employer] - 05/12/2020 8:11 AM EDT EXAMINATION: MRI [...] abutting the exiting left L5 nerve root. [facility]- [place], [place] MRI KNEE LEFT WO CONTRASTon 02-26-2020 While not meeting strict MRI criteria for tear there are findings concerning for small oblique tear exiting inferiorly involving posterior horn of medial meniscus as above. Mild degenerative changes to the medial compartment of the knee. Trace knee joint effusion. [place] EXAMINATION: MRI OF THE LEFT KNEE [...] occult fracture. No suspicious focal bony lesions. [place], [place] To[place], [place]hpn Incoming Radiant Results From [employer] - 02/26/2020 12:46 PM EDT EXAMINATION: MRI [...] of the knee. Trace knee joint effusion. [place] XR KNEE LEFT (3 VIEWS)on Small joint effusion [place] EXAMINATION: THREE XRAY VIEWS OF THE LEFT KNEE 01/29/2020 9:08 pm COMPARISON: None. HISTORY: ORDERING SYSTEM PROVIDED HISTORY: Knee injury TECHNOLOGIST PROVIDED HISTORY: Knee injury FINDINGS: No fracture. No dislocation. No erosion. Small joint effusion. [place], [place] To[place], [place]hpn Incoming Radiant Results From [employer] - 01/29/2020 9:17 PM EDT EXAMINATION: THREE XRAY VIEWS OF THE LEFT KNEE 01/29/2020 9:08 pm COMPARISON: None. HISTORY: ORDERING SYSTEM PROVIDED HISTORY: Knee injury TECHNOLOGIST PROVIDED HISTORY: Knee injury FINDINGS: No fracture. No dislocation. No erosion. Small joint effusion. IMPRESSION: Small joint effusion [place] AmylaseOrdered By: Nikia newman on 09-16-2019 Amylase [Catalytic activity/Vol] 46 U/L 28 - 100 U/L [facility] [employer] Work Phone: CBC Auto DifferentialOrdered By: Nikia Monte on 09-16-2019 Absolute Eos # 0.07 [facility] Work Phone: Absolute Immature Granulocyte <0.03 [employer] Work Phone: Absolute Lymph # 1.03 Low [employer] alth Work Phone: Absolute [place] # 0.65 [employer] [facility] Work Phone: Basophils (Bld) [#/Vol] 0.03 10*3/uL [employer] Work Phone: Basophils/100 WBC (Bld) 1 % 0 - 2 % [employer] ([employer]) Phone: Differential Type NOT REPORTED [employer] ([employer]) Phone: Eosinophils/100 WBC (Bld) 1 % 1 - 4 % [employer] ([employer]) Phone: Erythrocyte distribution width (RBC) [Ratio] 13.2 % 11.8 - 14.4 % [employer] ([employer]) Phone: Hematocrit (Bld) [Volume fraction] 35.6 % Low 36.3 - 47.1 % [employer] ([employer]) Phone: Hemoglobin (Bld) [Mass/Vol] 12.1 g/dL 11.9 - 15.1 g/dL [employer] ([employer]) Phone: Immature granulocytes/100 WBC (Bld) 0 % 0 [employer] ([employer]) Phone: Interpretation and review of laboratory results Abnormal [employer] ([employer]) Phone: Lymphocytes/100 WBC (Bld) 18 % Low 24 - 43 % [employer] ([employer]) Phone: MCH (RBC) [Entitic mass] 30.0 pg 25.2 - 33.5 pg [employer] ([employer]) Phone: MCHC (RBC) [Mass/Vol] 34.0 g/dL 28.4 - 34.8 g/dL [employer] ([employer]) Phone: MCV (RBC) [Entitic vol] 88.3 fL 82.6 - 102.9 fL [employer] Work Phone: Monocytes/100 WBC (Bld) 11 % 3 - 12 % [employer] ([employer]) Phone: NRBC Automated 0.0 0.0 per 100 WBC [employer] ([employer]) Phone: Platelet Estimate NOT REPORTED [employer] ([employer]) Phone: Platelet mean volume (Bld) [Entitic vol] 10.2 fL 8.1 - 13.5 fL [employer] Work Phone: Platelets (Bld) [#/Vol] 256 10*3/uL [employer] ([employer]) Phone: RBC (Bld) [#/Vol] 4.03 10*6/uL 3.95 - 5.1 1 m/uL [employer] ([employer]) Phone: RBC morphology finding Nom (Bld) NOT REPORTED [employer] ([employer]) Phone: Segmented neutrophils/100 WBC (Bld) 69 % High 36 - 65 % [employer] Work Phone: Segs Absolute 3.93 [employer] Work Phone: WBC (Bld) [#/Vol] 5.7 10*3/uL [employer] ([employer]) Phone: WBC Morphology NOT REPORTED [facility] Work Phone: Comprehensive Metabolic Pane lOrdered By: Nikia Monte on 09-16-2019 Albumin [Mass/Vol] 4.3 g/dL 3.5 - 5.2 g/dL [employer] Work Phone: Albumin/Globulin [Mass ratio] 1.4 {ratio} [employer] ([employer]) Phone: ALP [Catalytic activity/Vol] 103 U/L 35 - 104 U/L [employer] Work Phone: ALT [Catalytic activity/Vol] 34 U/L High 5 - 33 U/L [employer] Work Phone: Anion gap [Moles/Vol] 15 mmol/L 9 - 17 mmol/L [employer] ([employer]) Phone: AST [Catalytic activity/Vol] 43 U/L High <32 [employer] ([employer]) Phone: Bilirubin [Mass/Vol] 0.28 mg/dL Low 0.3 - 1 .2 mg/dL [employer] ([employer]) Phone: Bun/Cre Ratio 18 [employer] Work Phone: Calcium [Mass/Vol] 9.4 mg/dL 8.6 - 10. 4 mg/dL [employer] ([employer]) Phone: Chloride [Moles/Vol] 97 mmol/L Low 98 - 10 7 mmol/L [employer] ([employer]) Phone: CO2 [Moles/Vol] 24 mmol/L 20 - 31 mmol/L [employer] ([employer]) Phone: Creatinine [Mass/Vol] 0.78 mg/dL 0.5 - 0.9 mg/dL [employer] ([employer]) Phone: GFR >60 >60 mL/min [employer] Phone: GFR Comment [employer] ([employer]) Phone: Comment on above: Average GFR for 30-3 9 years old: 107 mL/min/1.73sq m Chronic Kidney Disease: <60 mL/min/1.73sq m Kidney failure: <15 mL/min/1.73sq m eGFR calculated using average adult body mass. Additional eGFR calculator available at: http://www.CriticalMetrics.S[employer] Systems/multiple_crcl_2012.htm GFR Non- >60 >60 mL/min [employer] ([employer]) Phone: GFR Staging [employer] ([employer]) Phone: Comment on above: Stage 1: Some kidney damage normal GFR Stage 2: Mild kidney damage GFR 60-89 Stage 3: Moderate kidney damage GFR 30-59 Stage 4: Severe kidney damage GFR 15-29 Stage 5: Severe kidney damage GFR <15 ESRD - chronic treatment by dialysis or transplant Glucose [Mass/Vol] 104 mg/dL High 70 - 99 mg/dL [employer] ([employer]) Phone: Interpretation and review of laboratory results Abnormal [employer] ([employer]) Phone: Potassium [Moles/Vol] 3.8 mmol/L 3.7 - 5.3 mmol/L [employer] ([employer]) Phone: Protein [Mass/Vol] 7.3 g/dL 6.4 - 8.3 g/dL [employer] ([employer]) Phone: Sodium [Moles/Vol] 136 mmol/L 135 - 144 mmol/L [employer] ([employer]) Phone: Urea nitrogen [Mass/Vol] 14 mg/dL 6 - 20 mg/dL [employer] ([employer]) Phone: LipaseOrdered By: Nikia gooden on 09-16-2019 Lipase [Catalytic activity/Vol] 32 U/L 13 - 60 U/L [employer] ([employer]) Phone: Rapid influenza A/B antigens Ordered By: Nikia Monte on 09-16-2019 Direct Exam Presumptive negative for the presence of Influenza A and Influenza B antigen. PCR confirmation of negative results is recommended, since the antigen present in the specimen may be below the detection limit of the test. [employer] ([employer]) Phone: Special Requests NOT REPORTED [employer] ([employer]) Phone: Specimen Description .NOSE [employer] Phone: XR ABDOMEN (KUB) (SINGLE AP VIEW)Ordered By: Nikia Monte on 09-16-2019 Nonspecific, nonobstructive bowel gas pattern. Moderate retained stool, mostly left colon. [employer] ([employer]) Phone: EXAMINATION: ONE SUPINE XRAY VIEW(S) OF THE ABDOMEN 09/16/2019 2:20 pm COMPARISON: Abdominal series from HISTORY: ORDERING SYSTEM PROVIDED HISTORY: Fever with chills FINDINGS: Moderate retained stool, mostly left colon. No abnormal bowel dilatation. No obvious free air. No obvious abnormal calcification, mass or organomegaly. Bones and soft tissues appear intact. [employer] ([employer]) Phone: To[place], pn Incoming Radiant Results From [employer] - 09/16/2019 4:16 PM EST EXAMINATION: ONE [...] pattern. Moderate retained stool, mostly left colon. [employer] ([employer]) Phone: XR CHEST STANDARD (2 VW)Orde red By: Nikia Monte on 09-16-2019 Mild perihilar congestion and thickening but no evidence of consolidative infiltrates. [employer] ([employer]) Phone: EXAMINATION: TWO XRA Y VIEWS OF THE CHEST 09/16/2019 2:20 pm COMPARISON: None. HISTORY: ORDERING SYSTEM PROVIDED HISTORY: Fever with chills FINDINGS: Mildly increased perihilar markings consistent with congestion. No evidence of consolidative infiltrates. No evidence of pleural effusion or pneumothorax. Heart and mediastinum appear normal. [employer] ([employer]) Phone: [place], pn Incoming Radiant Results From [employer] - 09/16/2019 2:47 PM EST EXAMINATION: TWO XRAY VIEWS OF THE CHEST 09/16/2019 2:20 pm COMPARISON: None. HISTORY: ORDERING SYSTEM PROVIDED HISTORY: Fever with chills FINDINGS: Mildly increased perihilar markings consistent with congestion. No evidence of consolidative infiltrates. No evidence of pleural effusion or pneumothorax. Heart and mediastinum appear normal. IMPRESSION: Mild perihilar congestion and thickening but no evidence of consolidative infiltrates. [employer] ([employer]) Phone: Basic Metabolic PanelOrdered By: Junior Rodriguez on 08-22-2019 Anion gap [Moles/Vol] 11 mmol/L 9 - 17 mmol/L [employer] ([employer]) Phone: Bun/Cre Ratio 26 High [employer] Work Phone: Calcium [Mass/Vol] 9.4 mg/dL 8.6 - 10. 4 mg/dL [employer] ([employer]) Phone: Chloride [Moles/Vol] 102 mmol/L 98 - 10 7 mmol/L [employer] ([employer]) Phone: CO2 [Moles/Vol] 21 mmol/L 20 - 31 mmol/L [employer] ([employer]) Phone: Creatinine [Mass/Vol] 0.72 mg/dL 0.5 - 0.9 mg/dL [employer] ([employer]) Phone: GFR >60 >60 mL/min [employer] Phone: GFR Comment [employer] ([employer]) Phone: Comment on above: Average GFR for 30-3 9 years old: 107 mL/min/1.73sq m Chronic Kidney Disease: <60 mL/min/1.73sq m Kidney failure: <15 mL/min/1.73sq m eGFR calculated using average adult body mass. Additional eGFR calculator available at: http://www.ioBridge/multiple_crcl_2012.htm GFR Non- >60 >60 mL/min [employer] ([employer]) Phone: GFR Staging [employer] ([employer]) Phone: Comment on above: Stage 1: Some kidney damage normal GFR Stage 2: Mild kidney damage GFR 60-89 Stage 3: Moderate kidney damage GFR 30-59 Stage 4: Severe kidney damage GFR 15-29 Stage 5: Severe kidney damage GFR <15 ESRD - chronic treatment by dialysis or transplant Glucose [Mass/Vol] 122 mg/dL High 70 - 99 mg/dL [employer] ([employer]) Phone: Interpretation and review of laboratory results Abnormal [employer] ([employer]) Phone: Potassium [Moles/Vol] 4.3 mmol/L 3.7 - 5.3 mmol/L [employer] ([employer]) Phone: Sodium [Moles/Vol] 134 mmol/L Low 135 - 144 mmol/L [employer] Work Phone: Urea nitrogen [Mass/Vol] 19 mg/dL 6 - 20 mg/dL [employer] Work Phone: CBC Auto DifferentialOrdered By: Junior Rodriguez on 08-22-2019 Absolute Eos # 0.03 [employer] [facility] th Work Phone: Absolute Immature Granulocyte 0.05 [employer] Work Phone: Absolute Lymph # 1.58 [employer] [facility] Work Phone: Absolute [place] # 0.25 [employer] [facility] Work Phone: Basophils (Bld) [#/Vol] 0.03 10*3/uL [employer] Work Phone: Basophils/100 WBC (Bld) 0 % 0 - 2 % [employer] ([employer]) Phone: Differential Type NOT REPORTED [employer] ([employer]) Phone: Eosinophils/100 WBC (Bld) 0 % Low 1 - 4 % [employer] ([employer]) Phone: Erythrocyte distribution width (RBC) [Ratio] 12.9 % 11.8 - 14.4 % [employer] ([employer]) Phone: Hematocrit (Bld) [Volume fraction] 38.0 % 36.3 - 47.1 % [employer] ([employer]) Phone: Hemoglobin (Bld) [Mass/Vol] 12.5 g/dL 11.9 - 15.1 g/dL [employer] ([employer]) Phone: Immature granulocytes/100 WBC (Bld) 0 % 0 [employer] ([employer]) Phone: Interpretation and review of laboratory results Abnormal [employer] ([employer]) Phone: Lymphocytes/100 WBC (Bld) 13 % Low 24 - 43 % [employer] ([employer]) Phone: MCH (RBC) [Entitic mass] 29.1 pg 25.2 - 33.5 pg [employer] Work Phone: MCHC (RBC) [Mass/Vol] 32.9 g/dL 28.4 - 34.8 g/dL [employer] Work Phone: MCV (RBC) [Entitic vol] 88.4 fL 82.6 - 102.9 fL [employer] Work Phone: Monocytes/100 WBC (Bld) 2 % Low 3 - 12 % [employer] Work Phone: NRBC Automated 0.0 0.0 per 100 WBC [employer] ([employer]) Phone: Platelet Estimate NOT REPORTED [employer] Work Phone: Platelet mean volume (Bld) [Entitic vol] 10.1 fL 8.1 - 13.5 fL [employer] ([employer]) Phone: Platelets (Bld) [#/Vol] 377 10*3/uL [employer] Work Phone: RBC (Bld) [#/Vol] 4.30 10*6/uL 3.95 - 5.1 1 m/uL [employer] Work Phone: RBC morphology finding Nom (Bld) NOT REPORTED [employer] Work Phone: Segmented neutrophils/100 WBC (Bld) 85 % High 36 - 65 % [employer] Work Phone: Segs Absolute 9.95 High [facility] Work Phone: WBC (Bld) [#/Vol] 11.9 10*3/uL High [employer] Work Phone: WBC Morphology NOT REPORTED [employer] [facility] Work Phone: Rheumatoid FactorOrdered By: Junior Rodriguez on 08-22-2019 Rheumatoid Factor <10 <14 IU/mL [employer] Work Phone: TSH without ReflexOrdered By : Junior Rodriguez on 08-22-2019 TSH Qn 0.72 m[IU]/L [employer] ([employer]) Phone: XR CERVICAL SPINE (4-5 VIEWS )Ordered By: Junior Rodriguez on 08-22-2019 Minimal C5-C6 degenerative change, otherwise negative cervical spine. [employer] ([employer]) Phone: EXAMINATION: 5 XRAY VIEWS OF THE [...] The base of the odontoid appears intact. [employer] ([employer]) Phone: Toño, Mhpn Incoming Radiant Results From [employer] - 08/22/2019 5:08 PM EST EXAMINATION: 5 [...] C5-C6 degenerative change, otherwise negative cervical spine. 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 [employer] ([employer]) Phone: EXAMINATION: THREE XRAY VIEWS OF THE [...] sacrum is unremarkable. No significant degenerative changes. 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 [employer] ([employer]) Phone: CBC Auto Differentialon 07-12 Basophils (Bld) [#/Vol] 0.05 10*3/uL [place] Basophils/100 WBC (Bld) 1 % 0 - 2 % [place] Differential Type NOT REPORTED [place] Eosinophils (Bld) [#/Vol] 0.10 10*3/uL [place] Eosinophils/100 WBC (Bld) 1 % 1 - 4 % [place] Erythrocyte distribution width (RBC) [Ratio] 12.7 % 11.8 - 14.4 % [place] Hematocrit (Bld) [Volume fraction] 41.2 % 36.3 - 47.1 % [place] Hemoglobin (Bld) [Mass/Vol] 13.9 g/dL 11.9 - 15.1 g/dL [place] Immature granulocytes (Bld) [#/Vol] 0 % 0 [place] Immature granulocytes (Bld) [#/Vol] 10*3/uL [place] Lymphocytes (Bld) [#/Vol] 2.37 10*3/uL [place] Lymphocytes/100 WBC (Bld) 29 % 24 - 43 % [place] MCH (RBC) [Entitic mass] 28.8 pg 25.2 - 33.5 pg [place] MCHC (RBC) [Mass/Vol] 33.7 g/dL 28.4 - 34.8 g/dL [place] MCV (RBC) [Entitic vol] 85.3 fL 82.6 - 102.9 fL [place] Monocytes (Bld) [#/Vol] 0.53 10*3/uL [place] Monocytes/100 WBC (Bld) 7 % 3 - 12 % [place] Platelet mean volume (Bld) [Entitic vol] 10.8 fL 8.1 - 13.5 fL [place] Platelets (Bld) [#/Vol] 326 10*3/uL [place] Platelets (Bld) [#/Vol] NOT REPORTED [place] RBC (Bld) [#/Vol] 4.83 10*6/uL 3.95 - 5.1 1 m/uL [place] RBC morphology finding Nom (Bld) NOT REPORTED [place] Segmented neutrophils/100 WBC (Bld) 62 % 36 - 65 % [place] Segs Absolute 5.08 [place] WBC (Bld) [#/Vol] 8.2 10*3/uL [place] WBC (Bld) [#/Vol] 0.0 10*3/uL 0.0 per 10 0 WBC [place] WBC Morphology NOT REPORTED [place] Comprehensive Metabolic Pane lindy 07-30-2019 Albumin [Mass/Vol] 4.7 g/dL 3.5 - 5.2 g/dL [place] Albumin/Globulin [Mass ratio] 1.4 {ratio} [place] ALP [Catalytic activity/Vol] 75 U/L 35 - 104 U/L [place] ALT [Catalytic activity/Vol] 19 U/L 5 - 33 U/L [place] Anion gap [Moles/Vol] 13 mmol/L 9 - 17 mmol/L [place] AST [Catalytic activity/Vol] 21 U/L <32 [place] Bilirubin Ql (U) 0.57 mg/dL 0.3 - 1.2 mg/dL [place] Bun/Cre Ratio 17 [place] Calcium [Mass/Vol] 9.9 mg/dL 8.6 - 10. 4 mg/dL [place] Chloride [Moles/Vol] 99 mmol/L 98 - 10 7 mmol/L [place] CO2 [Moles/Vol] 22 mmol/L 20 - 31 mmol/L [place] Creatinine [Mass/Vol] 0.75 mg/dL 0.5 - 0.9 mg/dL [place] GFR >60 >60 mL/min [place] GFR Non- >60 >60 mL/min [place] Glucose [Mass/Vol] 108 mg/dL High 70 - 99 mg/dL [place] Interpretation and review of laboratory results Abnormal [place] Potassium [Moles/Vol] 3.9 mmol/L 3.7 - 5.3 mmol/L [place] Protein [Mass/Vol] 8.1 g/dL 6.4 - 8.3 g/dL [place] Sodium [Moles/Vol] 134 mmol/L Low 135 - 144 mmol/L [place] Urea nitrogen [Mass/Vol] 13 mg/dL 6 - 20 mg/dL [place] Drug screen multi urineon Amphetamine Screen, Ur Negative NEGATIVE [place] Barbiturate Screen, Ur Negative NEGATIVE [place] Benzodiazepine Screen, Urine Negative NEGATIVE [place] Buprenorphine Urine Negative NEGATIVE [place] Cannabinoid Scrn, Ur Negative NEGATIVE [place] Cocaine Metabolite, Urine Negative NEGATIVE [place] MDMA, Urine NOT REPORTED NEGATIVE [place] Methadone Screen, Urine Negative NEGATIVE [place] Methamphetamine, Urine Negative NEGATIVE [place] Opiates, Urine Negative NEGATIVE [place] Oxycodone Screen, Ur Negative NEGATIVE [place] Phencyclidine, Urine Negative NEGATIVE [place] Propoxyphene, Urine Negative NEGATIVE [place] Test Information NOT REPORTED [place] Tricyclic Antidepressants, Urine Negative NEGATIVE [facility] [place], [place] Comment on above: Drug screen results are to be used for medical purposes only. All positive results are unconfirmed. Testing for employment or legal uses should be sent to a reference laboratory for confirmation. HCG Qualitative, Serumon hCG Qual Negative NEGATIVE [place] Comment on above: Specimens with hCG l evels near the threshold of the test (25 mIU/mL) may give a negative or indeterminate result. In such cases, another test should be performed with a new specimen in 48-72 hours. If early is suspected clinically in this setting, correlation with quantitative serum b-hCG level is suggested. [facility] has confirmed the use of plasma for this test. This has not been cleared or approved by the U.S. Food and Drug Administration. The FDA has determined that such clearance is not necessary. Magnesiumon 07-30-2019 Magnesium [Mass/Vol] 2.1 mg/dL 1.6 - 2 .6 mg/dL [place] Metabolic Panelon 07-30-2019 GFR/1.73 sq M predicted among non-blacks MDRD (S/P/Bld) [Vol rate/Area] [place] Comment on above: Average GFR for 30-3 9 years old: 107 mL/min/1.73sq m Chronic Kidney Disease: <60 mL/min/1.73sq m Kidney failure: <15 mL/min/1.73sq m eGFR calculated using average adult body mass. Additional eGFR calculator available at: http://www.CriticalMetrics.S[employer] Systems/multiple_crcl_2012.htm Stage 1: Some kidney damage normal GFR Stage 2: Mild kidney damage GFR 60-89 Stage 3: Moderate kidney damage GFR 30-59 Stage 4: Severe kidney damage GFR 15-29 Stage 5: Severe kidney damage GFR <15 ESRD - chronic treatment by dialysis or transplant Microscopic Urinalysison Amorphous, UA 1+ Abnormal None [place], [place] Bacteria, UA NOT REPORTED None [place] Casts UA NOT REPORTED /LPF [place], [place] Crystals UA NOT REPORTED None /HPF [facility] [place] Epithelial Cells UA 5 TO 10 [place] Interpretation and review of laboratory results Abnormal [place] Mucus, UA NOT REPORTED None [place], [place] Other Observations UA NOT REPORTED NOT REQ. [place] RBC (U) [#/Vol] 0 TO 2 [facility] [place] Renal Epithelial, Urine NOT REPORTED 0 /HPF [place] Trichomonas, UA NOT REPORTED [facility] [place] WBC, UA 2 TO 5 [place] Yeast, UA NOT REPORTED None [place], [place] - [place], [place] Otheron 07-30-[address]: No acute intracranial abnormality. Lumbar spine CT: No acute osseous abnormality. [place] EXAMINATION: CT OF THE HEAD WITHOUT [...] abnormal fluid collections. No nephrolithiasis or hydronephrosis. [place], [place] To[place], [place]hpn Incoming Radiant Results From [employer]/Pacs - 07/30/2019 11:05 AM EST EXAMINATION: CT [...] Lumbar spine CT: No acute osseous abnormality. [place] TSH without Reflexon 019 TSH Qn 1.43 m[IU]/L [place], [place] Troponinon 07-30-2019 Troponin I.cardiac [Mass/Vol] [place], [place] Comment on above: Reference Range: <0.03 [...] diagnosis. Troponin T.cardiac [Mass/Vol] ug/L <0.03 ng/mL [place] Comment on above: Troponin T results c annot be compared to Troponin-I results. Troponin, High Sensitivity NOT REPORTED 0 - 14 ng/L [place] Urinalysis Reflex to Culture on 07-30-2019 Bilirubin U[facility] [place] Color, UA YELLOW YELLOW [place] Glucose, Ur Negative NEGATIVE [place] Interpretation and review of laboratory results Abnormal [place] Ketones Ql (U) Negative NEGATIVE [place] Leukocyte esterase Test strip Ql (U) Negative NEGATIVE [place] Nitrite, Urine Negative NEGATIVE [place] pH, UA 7.5 [place] Protein (U) [Mass/Vol] Negative NEGATIVE [place] Specific [place], UA 1.015 [place] Turbidity UA CLEAR CLEAR [place], [place] Urinalysis Comments NOT REPORTED [place], [place] Urine Hgb TRACE Abnormal NEGATIVE [place] Urobilinogen, Urine Normal Normal [place] Vital Signs Date Time Vital Sign Value Performing Clinician Gulshan hearn 04-06-2025 15:19-0400 Body mass index (BMI) [Ratio] 33.6 kg/m2 Mynor Glaser PA-C Work Phone: [facility] 04-06-2025 15:19-0400 Body weight 88.8 kg Mynor Glaser PA-C Work Phone: [facility] 04-06-2025 15:19-0400 Diastolic blood pressure 62 mm[Hg] Mynor Glaser PA-C Work Phone: [facility] 04-06-2025 15:190400 Heart rate 96 /min Mynor Glaser PA-C Work Phone: [facility] 04-06-2025 15:19-0400 Systolic blood pressure 102 mm[Hg] Mynor Glaser PA-C Work Phone: [facility] 03-04-2025 10:34-0400 Body height 162.6 cm Johnathan Haas MD Work Phone: [facility] 03-04-2025 10:34-0400 Body mass index (BMI) [Ratio] 30.88 kg/m2 Johnathan Haas MD Work Phone: [facility] 03-04-2025 10:34-0400 Body weight 81.6 kg Johnathan Haas MD Work Phone: [facility] 03-04-2025 10:34-0400 Diastolic blood pressure 70 mm[Hg] Johnathan Haas MD Work Phone: [facility] 03-04-2025 10:34-0400 Heart rate 91 /min Johnathan Haas MD Work Phone: [facility] 03-04-2025 10:34-0400 Respiratory rate 16 /min Johnathan Haas MD Work Phone: [facility] 03-04-2025 10:34-0400 SaO2% (BldA) [Mass fraction] 98 % Johnathan Haas MD Work Phone: [facility] 03-04-2025 10:34-0400 Systolic blood pressure 122 mm[Hg] Johnathan Haas MD Work Phone: [facility] 02-16-2025 07:34-0400 Body height 162.6 cm Pacc 1 Other Phone: [facility] 02-16-2025 07:34-0400 Body mass index (BMI) [Ratio] 32.01 kg/m2 Pacc 1 Other Phone: [facility] 02-16-2025 07:34-0400 Body temperature 97.3 [degF] Pacc 1 Other Phone: [facility] 02-16-2025 07:34-0400 Body weight 84.6 kg Pacc 1 Other Phone: [facility] 02-16-2025 07:34-0400 Diastolic blood pressure 67 mm[Hg] Pacc 1 Other Phone: [facility] 02-16-2025 07:34-0400 Heart rate 68 /min Pacc 1 Other Phone: [facility] 02-16-2025 07:34-0400 Respiratory rate 18 /min Pacc 1 Other Phone: [facility] 02-16-2025 07:34-0400 SaO2% (BldA) [Mass fraction] 99 % Pacc 1 Other Phone: [facility] 02-16-2025 07:34-0400 Systolic blood pressure 99 mm[Hg] Pacc 1 Other Phone: [facility] 01-28-2025 16:12-0400 Body mass index (BMI) [Ratio] 32.61 kg/m2 Tommie Siobhan DO Work Phone: [facility] 01-28-2025 16:12-0400 Body weight 86.18 kg Tommie Siobhan DO Work Phone: [facility] 01-28-2025 16:12-0400 Diastolic blood pressure 70 mm[Hg] Tommie Siobhan DO Work Phone: [facility] 01-28-2025 16:12-0400 Systolic blood pressure 120 mm[Hg] Tommie Siobhan DO Work Phone: [facility] 01-05-2025 15:08-0400 Body weight 84.4 kg Uriel Guzmán MD Work Phone: [facility] 01-05-2025 14:02-0400 Body weight 81.65 kg Rishabh Huang MD Work Phone: [facility] 01-05-2025 14:02-0400 Diastolic blood pressure 63 mm[Hg] Rishabh Huang MD Work Phone: [facility] 01-05-2025 14:02-0400 Heart rate 72 /min Rishabh Huang MD Work Phone: [facility] 01-05-2025 14:02-0400 Systolic blood pressure 119 mm[Hg] Rishabh Huang MD Work Phone: [facility] 12-19-2024 12:45-0400 Diastolic blood pressure 46 mm[Hg] Doc [facility] 12-19-2024 12:45-0400 Heart rate 65 /min Doc Felix MD [facility] 12-19-2024 12:45-0400 Respiratory rate 16 /min Doc Felix MD [facility] 12-19-2024 12:45-0400 Systolic blood pressure 91 mm[Hg] Doc Felix MD [facility] 12-19-2024 12:09-0400 SaO2% (BldA) [Mass fraction] 100 % Doc Felix MD [facility] 12-19-2024 11:08-0400 Body height 162.6 cm Doc Felix MD [facility] 12-19-2024 11:08-0400 Body mass index (BMI) [Ratio] 30.9 kg/m2 Doc Felix MD [facility] 12-19-2024 11:08-0400 Body weight 81.65 kg Doc Felix MD [facility] 12-15-2024 14:58-0400 Body weight 82 kg Johnathan Haas MD Work Phone: [facility] 12-15-2024 14:58-0400 Diastolic blood pressure 65 mm[Hg] Johnathan Haas MD Work Phone: [facility] 12-15-2024 14:58-0400 Heart rate 73 /min Johnathan Haas MD Work Phone: [facility] 12-15-2024 14:58-0400 Systolic blood pressure 110 mm[Hg] Johnathan Haas MD Work Phone: [facility] 12-03-2024 15:13-0400 Heart rate 88 /min Catherine Calvillo MD Work Phone: [employer] 12-03-2024 15:13-0400 SaO2% (BldA) [Mass fraction] 97 % Catherine Calvillo MD Work Phone: [employer] 12-03-2024 15:00-0400 Diastolic blood pressure 60 mm[Hg] Catherine Calvillo MD Work Phone: [facility] 12-03-2024 15:00-0400 Systolic blood pressure 107 mm[Hg] Catherine Calvillo MD Work Phone: [facility] 12-03-2024 12:00-0400 Body height 162.6 cm Catherine Calvillo MD Work Phone: [employer] 12-03-2024 12:00-0400 Body temperature 98.49 [degF] Catherine Calvillo MD Work Phone: [facility] 12-03-2024 11:29-0400 Body mass index (BMI) [Ratio] 29.18 kg/m2 Catherine Calvillo MD Work Phone: [facility] 12-03-2024 11:29-0400 Body weight 77.11 kg Catherine Calvillo MD Work Phone: [employer] 12-03-2024 11:29-0400 Respiratory rate 18 /min Catherine Calvillo MD Work Phone: [facility] 11-14-2024 13:37-0500 Body height 162.6 cm Christofer More MD Work Phone: [facility] 11-14-2024 13:37-0500 Body mass index (BMI) [Ratio] 29.18 kg/m2 Christofer More MD Work Phone: [facility] 11-14-2024 13:37-0500 Body temperature 97.59 [degF] Christofer More MD Work Phone: [facility] 11-14-2024 13:37-0500 Body weight 77.11 kg Christofer More MD Work Phone: [facility] 11-14-2024 13:37-0500 Diastolic blood pressure 70 mm[Hg] Christofer More MD Work Phone: [facility] 11-14-2024 13:37-0500 Heart rate 72 /min Christofer More MD Work Phone: [facility] 11-14-2024 13:37-0500 Respiratory rate 18 /min Christofer More MD Work Phone: [facility] 11-14-2024 13:37-0500 SaO2% (BldA) [Mass fraction] 97 % Christofer More MD Work Phone: [facility] 11-14-2024 13:37-0500 Systolic blood pressure 113 mm[Hg] Christofer More MD Work Phone: [facility] 10-15-2024 18:30-0500 Diastolic blood pressure 66 mm[Hg] Doc Felix MD Work Phone: [facility] 10-15-2024 18:30-0500 Heart rate 75 /min Doc Felix MD Work Phone: [facility] 10-15-2024 18:30-0500 SaO2% (BldA) [Mass fraction] 99 % Doc Felix MD Work Phone: [facility] 10-15-2024 18:30-0500 Systolic blood pressure 110 mm[Hg] Doc Felix MD Work Phone: [facility] 10-15-2024 17:30-0500 Respiratory rate 16 /min Doc Felix MD Work Phone: [facility] 10-15-2024 15:48-0500 Body mass index (BMI) [Ratio] 29.18 kg/m2 Doc Felix MD Work Phone: [facility] 10-15-2024 15:48-0500 Body temperature 98.01 [degF] Doc Felix MD Work Phone: [facility] 10-15-2024 15:48-0500 Body weight 77.11 kg Doc Felix MD Work Phone: [facility] 10-02-2024 09:46-0500 Body height 162.6 cm Kelly Thomas MD Work Phone: [facility] [employer] [facility] 10-02-2024 09:46-0500 Body mass index (BMI) [Ratio] 28.82 kg/m2 Kelly Thomas MD Work Phone: [facility] 10-02-2024 09:46-0500 Body temperature 98.01 [degF] Kelly Thomas MD Work Phone: [facility] 10-02-2024 09:46-0500 Body weight 76.2 kg Kelly Thomas MD Work Phone: [facility] 10-02-2024 09:46-0500 Diastolic blood pressure 74 mm[Hg] Kelly Thomas MD Work Phone: [facility] 10-02-2024 09:46-0500 Heart rate 78 /min Kelly Thomas MD Work Phone: [facility] 10-02-2024 09:46-0500 Respiratory rate 16 /min Kelly Thomas MD Work Phone: [facility] 10-02-2024 09:46-0500 Systolic blood pressure 118 mm[Hg] Kelly Thomas MD Work Phone: [facility] 09-17-2024 08:50-0500 Body height 162.6 cm Myra Shendge V, PA Work Phone: [facility] 09-17-2024 08:50-0500 Body mass index (BMI) [Ratio] 28.84 kg/m2 Myra Shendge V, PA Work Phone: [facility] 09-17-2024 08:50-0500 Body weight 76.2 kg Myra Shendge V, PA Work Phone: [facility] 09-17-2024 08:50-0500 Diastolic blood pressure 68 mm[Hg] Myra Shendge V, PA Work Phone: [facility] 09-17-2024 08:50-0500 Heart rate 73 /min Myra Shendge V, PA Work Phone: [facility] 09-17-2024 08:50-0500 Respiratory rate 16 /min Myra Shendge V, PA Work Phone: [facility] 09-17-2024 08:50-0500 Systolic blood pressure 104 mm[Hg] Myra Shendge V, PA Work Phone: [facility] 08-06-2024 14:37-0500 Body height 162.6 cm Shirin Nath MD MPH Work Phone: [facility] 08-06-2024 14:37-0500 Body mass index (BMI) [Ratio] 29.18 kg/m2 Shirin Nath MD MPH Work Phone: [facility] 08-06-2024 14:37-0500 Body weight 77.11 kg Shirin Nath MD MPH Work Phone: [facility] 08-06-2024 14:37-0500 Diastolic blood pressure 70 mm[Hg] Shirin Nath MD MPH Work Phone: [facility] 08-06-2024 14:37-0500 Respiratory rate 16 /min Shirin Nath MD MPH Work Phone: [facility] 08-06-2024 14:37-0500 Systolic blood pressure 112 mm[Hg] Shirin Nath MD MPH Work Phone: [facility] 05-14-2024 15:13-0400 Body height 162.6 cm Shirin Nath MD MPH Work Phone: [facility] 05-14-2024 15:13-0400 Body mass index (BMI) [Ratio] 29.01 kg/m2 Shirin Nath MD MPH Work Phone: [facility] 05-14-2024 15:13-0400 Body weight 76.66 kg Shirin Nath MD MPH Work Phone: [facility] 05-14-2024 15:13-0400 Diastolic blood pressure 68 mm[Hg] Shirin Nath MD MPH Work Phone: [facility] 05-14-2024 15:13-0400 Respiratory rate 16 /min Shirin Nath MD MPH Work Phone: [facility] 05-14-2024 15:13-0400 Systolic blood pressure 104 mm[Hg] Shirin Nath MD MPH Work Phone: [facility] 03-06-2024 14:01-0400 Body height 162.6 cm Jarred Carter MD Work Phone: [facility] 03-06-2024 14:01-0400 Body mass index (BMI) [Ratio] 29.18 kg/m2 Jarred Carter MD Work Phone: [facility] 03-06-2024 14:01-0400 Body temperature 98.1 [degF] Jarred Carter MD Work Phone: [facility] 03-06-2024 14:01-0400 Body weight 77.11 kg Jarred Carter MD Work Phone: [facility] 01-09-2024 11:21-0400 Body height 162.6 cm Jarred Carter MD Work Phone: [facility] 01-09-2024 11:21-0400 Body mass index (BMI) [Ratio] 29.18 kg/m2 Jarred Carter MD Work Phone: [facility] 01-09-2024 11:21-0400 Body temperature 97.3 [degF] Jarred Carter MD Work Phone: [facility] 01-09-2024 11:21-0400 Body weight 77.11 kg Jarred Carter MD Work Phone: [facility] 01-09-2024 11:21-0400 Respiratory rate 16 /min Jarred Carter MD Work Phone: [facility] 12-11-2023 13:03-0400 Body height 162.6 cm Jarred Cartre MD Work Phone: [facility] 12-11-2023 13:03-0400 Body mass index (BMI) [Ratio] 30 kg/m2 Jarred Carter MD Work Phone: [facility] 12-11-2023 13:03-0400 Body temperature 98.1 [degF] Jarred Carter MD Work Phone: [facility] 12-11-2023 13:03-0400 Body weight 79.29 kg Jarred Carter MD Work Phone: [facility] 12-11-2023 13:03-0400 Respiratory rate 18 /min Jarred Carter MD Work Phone: [facility] 12-11-2023 05:32-0400 Body temperature 97.3 [degF] Rishabh Ross MD Work Phone: [facility] 12-11-2023 05:32-0400 Diastolic blood pressure 69 mm[Hg] Rishabh Ross MD Work Phone: [employer] 12-11-2023 05:32-0400 Heart rate 92 /min Rishabh Ross MD Work Phone: [facility] [employer] 12-11-2023 05:32-0400 Respiratory rate 17 /min Rishabh Ross MD Work Phone: [facility] [employer] 12-11-2023 05:32-0400 SaO2% (BldA) [Mass fraction] 100 % Rishabh Ross MD Work Phone: [employer] 12-11-2023 05:32-0400 Systolic blood pressure 117 mm[Hg] Rishabh Ross MD Work Phone: [facility] [employer] 09-28-2023 13:06-0500 Body temperature 100.2 [degF] Avelino Swade DO Work Phone: [employer] 09-28-2023 13:06-0500 Diastolic blood pressure 58 mm[Hg] Avelino Swade DO Work Phone: [employer] 09-28-2023 13:06-0500 Heart rate 94 /min Avelino Swade DO Work Phone: [employer] 09-28-2023 13:06-0500 Respiratory rate 20 /min Avelino Swade DO Work Phone: [employer] 09-28-2023 13:06-0500 SaO2% (BldA) [Mass fraction] 97 % Avelino Swade DO Work Phone: [employer] 09-28-2023 13:06-0500 Systolic blood pressure 111 mm[Hg] Avelino Swade DO Work Phone: [employer] 09-28-2023 10:51-0500 Body height 162.6 cm Avelino Swade DO Work Phone: [employer] 09-28-2023 10:51-0500 Body mass index (BMI) [Ratio] 33.47 kg/m2 Avelino Swade DO Work Phone: [facility] [employer] 09-28-2023 10:51-0500 Body weight 88.45 kg Avelino Swade DO Work Phone: [facility] [employer] 09-11-2023 09:16-0500 Body height 162.6 cm Haley Gan Jr. , DO Work Phone: [employer] 09-11-2023 09:16-0500 Body mass index (BMI) [Ratio] 33.13 kg/m2 Haley Gan Jr., DO Work Phone: [employer] 09-11-2023 09:16-0500 Body temperature 97 [degF] Haley Gan Jr. , DO Work Phone: [employer] 09-11-2023 09:16-0500 Body weight 87.54 kg Haley Gan Jr. , DO Work Phone: [employer] 09-11-2023 09:16-0500 Diastolic blood pressure 82 mm[Hg] Haley Gan Jr., DO Work Phone: [employer] 09-11-2023 09:16-0500 Heart rate 88 /min Haley Gan Jr. , DO Work Phone: [employer] [facility] 09-11-2023 09:16-0500 SaO2% (BldA) [Mass fraction] 98 % Haley Gan Jr., DO Work Phone: [employer] 09-11-2023 09:16-0500 Systolic blood pressure 124 mm[Hg] Haley Gan Jr., DO Work Phone: [facility] 09-01-2023 21:13-0500 Diastolic blood pressure 51 mm[Hg] Octavio Keller DO Work Phone: [facility] [employer] 09-01-2023 21:13-0500 Heart rate 71 /min Octavio Andes DO Work Phone: [facility] [employer] 09-01-2023 21:13-0500 Respiratory rate 12 /min Octavio Andes DO Work Phone: [facility] [employer] 09-01-2023 21:13-0500 SaO2% (BldA) [Mass fraction] 95 % Octavio Andes DO Work Phone: [facility] [employer] 09-01-2023 21:13-0500 Systolic blood pressure 115 mm[Hg] Octavio Andes DO Work Phone: [facility] [employer] 09-01-2023 19:40-0500 Body height 162.6 cm Octavio Andes DO Work Phone: [facility] [employer] 09-01-2023 19:40-0500 Body mass index (BMI) [Ratio] 32.61 kg/m2 Octavio Andes DO Work Phone: [facility] [employer] 09-01-2023 19:40-0500 Body temperature 99 [degF] Octavio Andes DO Work Phone: [facility] [employer] 09-01-2023 19:40-0500 Body weight 86.18 kg Octavio Andes DO Work Phone: [facility] [employer] 08-25-2023 08:45-0500 Body temperature 97.9 [degF] Patricio Aldridge MD Work Phone: [facility] [employer] 08-25-2023 08:45-0500 Diastolic blood pressure 70 mm[Hg] Patricio Aldridge MD Work Phone: [facility] [employer] 08-25-2023 08:45-0500 Heart rate 63 /min Patricio Aldridge MD Work Phone: [facility] [employer] 08-25-2023 08:45-0500 Respiratory rate 18 /min Patricio Aldridge MD Work Phone: [facility] [employer] 08-25-2023 08:45-0500 SaO2% (BldA) [Mass fraction] 99 % Patricio Aldridge MD Work Phone: [facility] 08-25-2023 08:45-0500 Systolic blood pressure 106 mm[Hg] Patricio Aldridge MD Work Phone: [facility] 08-24-2023 14:45-0500 Body mass index (BMI) [Ratio] 32.88 kg/m2 Patricio Aldridge MD Work Phone: [facility] 08-24-2023 14:45-0500 Body weight 86.9 kg Patricio Aldridge MD Work Phone: [facility] 08-24-2023 06:50-0500 Body height 162.6 cm Patricio Aldridge MD Work Phone: [facility] 06-04-2023 14:41-0400 Diastolic blood pressure 82 mm[Hg] Malaika [facility] 06-04-2023 14:41-0400 Mean blood pressure 96 mm[Hg] Malaika Christofferson [facility] 06-04-2023 14:41-0400 Systolic blood pressure 124 mm[Hg] Malaika Christofferson [facility] 06-04-2023 14:30-0400 Blood Pressure Location Malaika Shineofferson [facility] 06-04-2023 14:30-0400 Diastolic blood pressure 93 mm[Hg] Malaika Christofferson [facility] 06-04-2023 14:30-0400 Heart rate 82 /min Malaika Shineofferson [facility] 06-04-2023 14:30-0400 SaO2% (BldA) [Mass fraction] 99 % Malaika Graceerson [facility] 09-25-2023 14:30-0400 Systolic blood pressure 139 mm[Hg] Malaika Lan [facility] 12-16-2022 17:22-0400 Body mass index (BMI) [Ratio] 33.47 kg/m2 Catherine Calvillo MD Work Phone: [employer] 12-16-2022 17:22-0400 Body temperature 97.5 [degF] Catherine Calvillo MD Work Phone: [employer] 12-16-2022 17:22-0400 Body weight 88.45 kg Catherine Calvillo MD Work Phone: [employer] 12-16-2022 17:22-0400 Diastolic blood pressure 82 mm[Hg] Catherine Calvillo MD Work Phone: [employer] 12-16-2022 17:22-0400 Heart rate 61 /min Catherine Calvillo MD Work Phone: [employer] 12-16-2022 17:22-0400 Respiratory rate 16 /min Catherine Calvillo MD Work Phone: [employer] 12-16-2022 17:22-0400 SaO2% (BldA) [Mass fraction] 99 % Catherine Calvillo MD Work Phone: [employer] 12-16-2022 17:22-0400 Systolic blood pressure 138 mm[Hg] Catherine Calvillo MD Work Phone: [employer] 11-06-2022 16:42-0500 Body temperature 98.8 [degF] Tiffany Might 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 - C STAFF EDITOR Work Phone: [employer] 11-06-2022 16:42-0500 Diastolic blood pressure 65 mm[Hg] Tiffany Might 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 - DRYWALL STRIPPER HELPER Work Phone: [employer] 11-06-2022 16:42-0500 Heart rate 88 /min Tiffany Might 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 - C STAFF EDITOR Work Phone: [employer] 11-06-2022 16:42-0500 Respiratory rate 16 /min Tiffany Might 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 - C STAFF EDITOR Work Phone: [facility] [employer] 11-06-2022 16:42-0500 SaO2% (BldA) [Mass fraction] 98 % Tiffany Might 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 - DRYWALL STRIPPER HELPER Work Phone: [facility] [employer] 11-06-2022 16:42-0500 Systolic blood pressure 116 mm[Hg] Tiffany Might 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 - DRYWALL STRIPPER HELPER Work Phone: [facility] [employer] 06-25-2022 15:33-0400 Body temperature 97.5 [degF] Tiffany Might 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 - C STAFF EDITOR Work Phone: [facility] [employer] 06-25-2022 15:33-0400 Diastolic blood pressure 86 mm[Hg] Tiffany Might 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 - DRYWALL STRIPPER HELPER Work Phone: [facility] [employer] 06-25-2022 15:33-0400 Heart rate 76 /min Tiffany Might 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 - C STAFF EDITOR Work Phone: [facility] [employer] 06-25-2022 15:33-0400 Respiratory rate 16 /min Tiffany Might 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 - C STAFF EDITOR Work Phone: [facility] [employer] 06-25-2022 15:33-0400 SaO2% (BldA) [Mass fraction] 98 % Tiffany Might 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 - DRYWALL STRIPPER HELPER Work Phone: [facility] [employer] 06-25-2022 15:33-0400 Systolic blood pressure 122 mm[Hg] Tiffany Might 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 - DRYWALL STRIPPER HELPER Work Phone: [facility] [employer] 04-11-2022 10:44-0400 Body height 162.6 cm Yas Serrano MD Work Phone: [facility] 04-11-2022 10:44-0400 Body mass index (BMI) [Ratio] 33.13 kg/m2 Yas Serrano MD Work Phone: [facility] 04-11-2022 10:44-0400 Body temperature 97.5 [degF] Yas Serrano MD Work Phone: [facility] 04-11-2022 10:44-0400 Body weight 87.54 kg Yas Serrano MD Work Phone: [facility] 04-11-2022 10:44-0400 Diastolic blood pressure 62 mm[Hg] Yas Serrano MD Work Phone: [facility] 04-11-2022 10:44-0400 Heart rate 68 /min Yas Serrano MD Work Phone: [facility] 04-11-2022 10:44-0400 Systolic blood pressure 104 mm[Hg] Yas Serrano MD Work Phone: [facility] 11-12-2021 18:36-0500 Body temperature 98.1 [degF] Delbert Nascimento MD Work Phone: [facility] [employer] 11-12-2021 18:36-0500 Diastolic blood pressure 54 mm[Hg] Delbert Nascimento MD Work Phone: [facility] 11-12-2021 18:36-0500 Heart rate 79 /min Delbert Nascimento MD Work Phone: [facility] [employer] [facility] 11-12-2021 18:36-0500 Respiratory rate 18 /min Delbert Nascimento MD Work Phone: [facility] [employer] [facility] 11-12-2021 18:36-0500 SaO2% (BldA) [Mass fraction] 98 % Delbert Nascimento MD Work Phone: [facility] 11-12-2021 18:36-0500 Systolic blood pressure 114 mm[Hg] Delbert Nascimento MD Work Phone: [facility] [employer] 02-18-2021 16:09-0400 Body height 162.6 cm Charles Pearce Jr., MD Work Phone: [facility] Work Phone: 02-18-2021 16:09-0400 Body mass index (BMI) [Ratio] 30.9 kg/m2 Charles Pearce Jr., MD Work Phone: [employer] Work Phone: 02-18-2021 16:09-0400 Body temperature 97.9 [degF] Charles Pearce Jr., MD Work Phone: [employer] Work Phone: 02-18-2021 16:09-0400 Body weight 81.65 kg Charles Pearce Jr., MD Work Phone: [employer] Work Phone: 02-18-2021 16:09-0400 Diastolic blood pressure 65 mm[Hg] Charles Pearce Jr., MD Work Phone: [employer] Work Phone: 02-18-2021 16:09-0400 Heart rate 89 /min Charles Pearce Jr., MD Work Phone: [employer] Work Phone: 02-18-2021 16:09-0400 Respiratory rate 18 /min Charles Pearce Jr., MD Work Phone: [employer] Work Phone: 02-18-2021 16:09-0400 SaO2% (BldA) [Mass fraction] 99 % Charles Pearce Jr., MD Work Phone: [employer] Work Phone: 02-18-2021 16:09-0400 Systolic blood pressure 111 mm[Hg] Charles Pearce Jr., MD Work Phone: [employer] Work Phone: 01-18-2021 07:45-0400 Body mass index (BMI) [Ratio] 30.9 kg/m2 Rosario Murguia DO Work Phone: [employer] Work Phone: 01-18-2021 07:45-0400 Body temperature 98.1 [degF] Rosario Murguia DO Work Phone: [employer] Work Phone: 01-18-2021 07:45-0400 Body weight 81.65 kg Rosario Murguia DO Work Phone: [employer] Experience Work Phone: 01-18-2021 07:40-0400 Diastolic blood pressure 77 mm[Hg] Rosario Murguia DO Work Phone: [employer] Work Phone: 01-18-2021 07:40-0400 Heart rate 91 /min Rosario Murguia DO Work Phone: [employer] Work Phone: 01-18-2021 07:40-0400 Respiratory rate 16 /min Rosario Murguia DO Work Phone: [employer] Work Phone: 01-18-2021 07:40-0400 SaO2% (BldA) [Mass fraction] 97 % Rosario Murguia [employer] Work Phone: [employer] Work Phone: 01-18-2021 07:40-0400 Systolic blood pressure 134 mm[Hg] Rosario Murguia DO Work Phone: [employer] Work Phone: 06-15-2020 16:45-0400 BP Diastolic 62 mm[Hg] [facility] [place] 06-15-2020 16:45-0400 BP Systolic 100 mm[Hg] [facility] [place] 06-15-2020 16:45-0400 Pulse (Heart Rate) 60 /min [facility] [place] 06-15-2020 16:45-0400 Pulse Oximetry 100 % [facility] [place] 06-15-2020 16:45-0400 Respiratory Rate 16 /min [facility] [employer] [facility] [place] 06-15-2020 16:05-0400 Body Temperature 97.39 [degF] [facility] [place] 06-15-2020 15:13-0400 BMI (Body Mass Index) 29.18 kg/m2 [facility]ay [facility] [place] 06-15-2020 15:13-0400 Body weight 77.11 kg Chay [facility] [place] 06-15-2020 15:130400 Height 162.6 cm Chay [facility] , [place] 03-03-2020 15:17-0400 Body Temperature 97.9 [degF] [facility] 03-03-2020 15:17-0400 BP Diastolic 86 mm[Hg] Nikia [facility] [place] 03-03-2020 15:17-0400 BP Systolic 121 mm[Hg] Nikia Monte [facility] [place] 03-03-2020 15:17-0400 Pulse (Heart Rate) 89 /min Nikia [facility], [place] 03-03-2020 15:17-0400 Pulse Oximetry 98 % Nikia [facility] , [place] 03-03-2020 15:17-0400 Respiratory Rate 16 /min [facility] [place] 01-29-2020 20:48-0400 Body Temperature 98.1 [degF] [facility] [place] 01-29-2020 20:48-0400 BP Diastolic 90 mm[Hg] Dalton Stack [facility] [place] 01-29-2020 20:48-0400 BP Systolic 148 mm[Hg] Dalton Stack [facility] [place] 01-29-2020 20:48-0400 Pulse (Heart Rate) 72 /min Dalton Stack [facility] [place] 01-29-2020 20:48-0400 Pulse Oximetry 99 % [facility] [place] 01-29-2020 20:48-0400 Respiratory Rate 18 /min Dalton Stack [facility] [place] , [place] 07-30-2019 12:17-0500 BP Diastolic 58 mm[Hg] Octavio Holgerpeggy [facility] [place] 07-30-2019 12:17-0500 BP Systolic 104 mm[Hg] Octavio Arianna [place], [place] 07-30-2019 12:17-0500 Pulse (Heart Rate) 52 /min [facility] [place] 07-30-2019 12:17-0500 Respiratory Rate 6 /min [place], [place] 07-30-2019 11:45-0500 Pulse Oximetry 99 % [place], [place] 07-30-2019 08:24-0500 BMI (Body Mass Index) 28.32 kg/m2 [place], [place] 07-30-2019 08:24-0500 Body Temperature 97.81 [degF] [facility] [place], [place] 07-30-2019 08:24-0500 Body weight 74.84 kg [place], [place] 07-30-2019 08:24-0500 Height 162.6 cm [place], [place] Encounters Encounter Date Encounter Type Care Provider Facility Start: 05-28-2025 ambulatory Lidia L Toño Facility: [facility] Marie Start: 05-08-2025 End: 05-08-2025 Clinisync Result Encounter Tommie Siobhan DO Work Phone: [facility] External Department Unsolicited Start: 05-08-2025 End: 05-08-2025 Clinisync Result Encounter Tommie Siobhan DO Work Phone: [facility] External Department Unsolicited Start: 05-07-2025 End: 05-07-2025 Clinisync Result Encounter Tommie Siobhan DO Work Phone: [facility] External Department Unsolicited Start: 05-07-2025 End: 05-07-2025 Clinisync Result Encounter Tommie Siobhan DO Work Phone: [facility] External Department Unsolicited Start: 05-05-2025 End: 05-05-2025 ambulatory Deniz Encarnacion MD Work Phone: [employer] [facility] Comment on above: Hip cracking Start: 04-30-2025 End: 04-30-2025 ambulatory Lidia L Toño Facility:[facility] Marie Start: 04-16-2025 End: 04-16-2025 Subsequent hospital visit by physician Sergio SIEGEL Physical Therapy Start: 04-14-2025 End: 04-14-2025 ambulatory ELIZABETH APODACA Facility:[facility] Marie Start: 04-13-2025 End: 04-13-2025 ambulatory [facility] Start: 04-13-2025 End: 04-13-2025 Subsequent hospital visit by physician Sergio SIEGEL Physical Therapy Comment on above: Arrived Start: 04-10-2025 End: 04-10-2025 Telemedicine consultation with patient Madyson Villafuerte PA-C Work Phone: [facility] Start: 04-10-2025 End: 04-10-2025 ambulatory Madyson Villafuerte PA-C Work Phone: [facility] Comment on above: Acetabular labrum te ar, right, subsequent encounter (Primary Dx) Start: 04-09-2025 End: 04-09-2025 [facility]ulatory [facility] Start: 04-09-2025 End: 04-09-2025 Subsequent hospital visit by physician Sergio SIEGEL Physical Therapy Comment on above: Arrived Start: 04-07-2025 End: 04-07-2025 Subsequent hospital visit by physician Malaika SIEGEL Physical Therapy Start: 04-06-2025 End: 04-06-2025 Office outpatient visit 15 minutes Mynor Glaser PA-C Work Phone: Pain Management Comment on above: Fibromyalgia (Primar y Dx); Back pain with history of spinal surgery;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 Dizziness (Primary D x); Other complicated headache syndrome Start: 10-03-2018 End: 10-03-2018 Patient encounter procedure NIKIA MONTE Facility:[facility] Start: 03-04-2018 End: 03-04-2018 Patient encounter procedure Harman CALLAWAY Facility:[facility] Start: 11-15-2017 End: 11-15-2017 Patient encounter procedure NIKIA MONTE Facility:[facility] Procedures Date Procedure Procedure Detail Performing Clinician Start: 05-08-2025 US PELVIS W/ TRANSVAGINAL Tommie Siobhan DO Work Phone: Start: 05-07-2025 MM TOMOSYNTHESIS SCREENING BI Tommie Siobhan DO Work Phone: Start: 05-07-2025 Mammography Tommie Fazi o DO Work Phone: Start: 03-25-2025 Nerve conduction christie dies 5-6 studies Johnathan Haas MD Work Phone: Start: 02-19-2025 IGP,APTIMA HPV,AGE GDLN Tommie Siobhan DO Work Phone: Start: 02-19-2025 Microscopic observat ion [Identifier] in Cervix by Cyto stain Tommie Siobhan DO Work Phone: Start: 01-28-2025 [...] jt lower ext rem w/contrast material Christofer Mckinley MD Work Phone: Start: 11-14-2024 Injection hip arthrography w/o anesthesia Christofer More MD Work Phone: Start: 10-15-2024 Urinalysis microscop ic only Guera ROMAN-Adithya Work Phone: Start: 10-15-2024 Urnls dip stick/tabl et rgnt auto w/o microscopy Guera Coyne PA-C Work Phone: Start: 10-15-2024 Basic metabolic pane l calcium total Guera Montse Doretha ROMAN-Adithya Work Phone: Start: 10-15-2024 Ecg routine ecg w/le ast 12 lds w/i&r Guera Coyne PA-C Work Phone: Start: 09-17-2024 Follow-up visit Follow-up MYRA MCKINNON V Start: 06-09-2024 MLR HEMOGLOBIN A1C Melva Mccann DO Work Phone: Start: 04-29-2024 ALL TOTAL PROTEIN Tommie Mccann DO Work Phone: Start: 02-14-2024 Microscopic observat ion [Identifier] in Cervix by Cyto stain Tommie Mccann DO Work Phone: Start: 09-28-2023 Basic metabolic pane l calcium total Avelino Muse DO Work Phone: Start: 09-28-2023 Radiologic exam ches t single view Avelino N Micha DO Work Phone: Start: 09-28-2023 COVID-19, RAPID Avelino N Micha DO Work Phone: Start: 09-28-2023 Iaad ia streptococcu s group a Avelino N Micha DO Work Phone: Start: 09-01-2023 Radex spine lumbosac ral minimum 4 views Octavio Keller DO Work Phone: Start: 12-16-2023 Anion gap [Moles/Vol] A ronald Solomon MD [...] Phone: Start: 09-10-2022 Surgery (qualifier value) Malaika Riojasconnoreric Start: 09-10-2022 Surgical procedure Darlene Garcia Start: 08-17-2022 Urine albumin quantitative Tiffany W Might 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 - [employer]IPPER HELPER Work Phone: Start: 08-17-2022 End: 08-17-2022 Basic metabolic panel calcium total Tiffany W Might 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 - [employer] STRIPPER HELPER Work Phone: Start: 08-17-2022 Lipid panel Tiffany W Mi ght 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 - [employer]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 HELPER Work Phone: Start: 06-21-2022 C-reactive protein Umair Monk MD Work Phone: Start: 06-21-2022 Sedimentation rate r bc automated Cindy Monk MD Work Phone: Start: 10-10-2021 Basic metabolic pane l calcium total Cindy SIMPSONC Work Phone: Start: 05-31-2021 End: 05-31-2021 Lipid panel Tiffany Tejeda 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 - [employer]IPPER HELPER Work Phone: Start: 05-31-2021 Comprehensive metabo lic panel Tiffany Rivero Might 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 - [employer]ALL STRIPPER HELPER Work Phone: Start: 04-18-2021 Radiologic exam ches [...] exam abdo men 1 view Nikia Monte 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 - [employer]IPPER HELPER Work Phone: Start: 09-16-2019 Radiologic exam ches t 2 views Nikia Monte 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 - [employer] STRIPPER HELPER Work Phone: Start: 09-16-2019 Comprehensive metabo lic panel Nikia Monte 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 - [employer]IPPER HELPER Work Phone: Start: 09-16-2019 Iaadiadoo influenza Jasper rafat Monte 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 - [employer]IPPER HELPER Work Phone: Start: 08-22-2019 End: 08-22-2019 Radex spine lumbosacral 2/3 views Junior Rodriguez MD Work Phone: Start: 08-22-2019 Basic metabolic pane l calcium total Junior Rodriguez MD Work Phone: Start: 08-22-2019 Rheumatoid factor quantitative Junior Rodriguez MD Work Phone: Start: 07-30-2019 Ct lumbar spine w/o contrast material [employer] Work Phone: Start: 07-30-2019 Ct head/brain w/o contrast material [employer] Work Phone: Start: 07-30-2019 Drug screen class list a [employer] Work Phone: Start: 07-30-2019 Urinalysis microscop ic only Octavio [employer] Work Phone: Start: 07-30-2019 Urnls dip stick/tabl et rgnt auto w/o microscopy [employer] Work Phone: Start: 07-30-2019 Ecg routine ecg w/le ast 12 lds w/i&r [employer] Work Phone: Start: 07-30-2019 Assay of magnesium Just in [employer] Work Phone: Start: 07-30-2019 Assay of thyroid stimulating hormone tsh Octavio Keller Work Phone: Start: 07-30-2019 Assay of troponin quantitative Octavio [employer] Work Phone: Start: 07-30-2019 Blood count complete auto&auto difrntl wbc Octavio [employer] Work Phone: Start: 07-30-2019 Comprehensive metabo lic panel Octavio Shwr[employer]mpeggy Work Phone: Start: 07-30-2019 Gonadotropin chorion ic qualitative Octavio [employer] Work Phone: Start: 09-10-2016 section Malaika Haji gordo section Malaika ugalde Hysterectomy Malaika cook Surgery (qualifier value) Be Jose Plan of Treatment Date Care Activity Detail Author Start: 02-19-2030 Screening for malignant neoplasm of cervix [facility] Start: 02-13-2029 Screening for malignant neoplasm of cervix [facility] Start: 03-27-2027 Screening for malignant neoplasm of cervix [facility] Start: 03-01-2026 End: 03-01-2026 Patient encounter procedure [facility] OB Start: 01-18-2026 Screening for malignant neoplasm of cervix Pap Smear [facility] Start: 09-17-2025 Adult BMI Screening Adult BMI Screening [facility] Start: 09-17-2025 Tobacco Screening Tobacco Screening [facility] Start: 08-21-2025 End: 04-21-2026 MG Breast - bilateral Screening Bilateral screening mammogram Imaging Routine Breast cancer screening by mammogram Expected: 08/21/2025 (Approximate), Expires: 04/21/2026 [facility] Work Phone: Comment on above: Expected: 08/21/2025 (Approximate), Expi res: 04/21/2026 Start: 08-06-2025 Adult BMI Screening Adult BMI Screening [facility] Start: 08-06-2025 Tobacco Screening Tobacco Screening [facility] Start: 07-22-2025 End: 07-22-2025 Patient encounter procedure 07/22/2025 9:00 [place] [address] Favio Carranza MD [address] [place] [address] new consult [facility] Comment on above: new consult Start: 07-13-2025 End: 07-13-2025 Patient encounter procedure 07/13/2025 3:00 PM EST Office Visit Pain Management [address] [place] [address] Rishabh Huang MD [address] [place] [address] 3 MONTH FOLLOW UP Pain Management Comment on above: 3 MONTH FOLLOW UP Start: 06-03-2025 End: 06-03-2025 Patient encounter procedure 06/03/2025 9:30 AM EDT Office Visit [facility] [address] [place] [address] Favio Carranza MD [address] [place] [address] new consult [facility] Comment on above: new consult Start: 05-22-2025 End: 05-22-2025 ambulatory 05/22/2025 8:30 AM EDT [facility] [address] [place] [address] Deniz Encarnacion MD [address] [place] [address] [facility] Comment on above: RIGHT HIP Start: 05-19-2025 End: 05-19-2025 Patient encounter procedure 05/19/2025 10:30 AM EDT Office Visit [facility] [address] [place] [address] Deniz Encarnacion MD [address] [place] [address] [facility] Comment on above: RIGHT HIP Start: 05-14-2025 Adult BMI Screening Adult BMI Screening [facility] Start: 05-14-2025 Tobacco Screening Tobacco Screening [facility] Start: 05-12-2025 End: 05-12-2025 Patient encounter procedure 05/12/2025 8:15 AM EDT Office Visit [facility] [address] [place] [address] Deniz Encarnacion MD [address] [place] [address] [facility] Comment on above: RIGHT HIP Start: 05-11-2025 Influenza vaccination [facility] Start: 04-16-2025 End: 04-16-2025 Patient encounter procedure 04/16/2025 2:00 PM EDT Appointment [facility] Physical Therapy [address] [place] [phone] [facility]ergio Barkley [facility] Start: 04-13-2025 End: 04-13-2025 Patient encounter procedure 04/13/2025 2:30 PM EDT Appointment [facility] Therapy [address] [place] [phone] Sergio Barkley [facility] Start: 04-10-2025 Influenza vaccination [facility] Start: 04-10-2025 End: 04-10-2025 ambulatory 04/10/2025 1:40 PM EDT [facility] [address] [place] [address] Madyson Villafuerte, PA-C [address] [place] [address] [facility] Comment on above: RIGHT HIP Start: 04-09-2025 End: 04-09-2025 Patient encounter procedure 04/09/2025 2:45 PM EDT Appointment [facility] Physical Therapy [address] [place] [phone] Sergio Barkley [facility] Therapy Start: 04-07-2025 End: 04-07-2025 Patient encounter procedure 04/07/2025 2:30 PM EDT Appointment [facility] Physical Therapy [address] [place] [phone] Malaika Hernández, PT [facility] Therapy Start: 04-06-2025 End: 04-06-2025 Patient encounter procedure Pain Management Comment on above: 3 MONTH FOLLOW UP Start: 04-02-2025 End: 04-02-2025 Patient encounter procedure 04/02/2025 2:00 PM EDT Appointment [facility] Physical Therapy [address] [place] [phone] Sergio Barkley [facility] Start: 04-01-2025 End: 04-01-2025 Patient encounter procedure 04/01/2025 3:45 PM EDT Appointment [facility] Physical Therapy [address] [place] [phone] Malaika Hernández, PT [facility] Therapy Start: 03-30-2025 End: 03-30-2025 Patient encounter procedure 03/30/2025 3:00 PM EDT Appointment [facility] Physical Therapy [address] [place] [phone] Malaika Hernández, PT [facility] Therapy Start: 03-25-2025 End: 03-25-2025 ambulatory Neurology Comment on above: : Bilateral carpal tunnel syndrome [G56. 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) Start: 03-24-2025 End: 03-24-2025 Patient encounter procedure 03/24/2025 1:00 PM EDT Appointment [facility] Physical Therapy [address] [place] [phone] Malaika Hernández, PT [facility] Physical Therapy Comment on above: [facility] Start: 03-19-2025 End: 03-19-2025 Patient encounter procedure 03/19/2025 11:15 AM EDT Appointment [facility] Physical Therapy [address] [place] [phone] Corby Lewis PTA [facility] Start: 03-16-2025 End: 03-16-2025 Patient encounter procedure 03/16/2025 11:15 AM EDT Appointment [facility] Physical Therapy [address] [place] [phone] Corby Lewis PTA [facility] Therapy Start: 03-12-2025 End: 03-12-2025 Patient encounter procedure 03/12/2025 11:15 AM EDT Appointment [facility] Therapy [address] [place] [phone] Corby Lewis PTA [facility] Therapy Start: 03-10-2025 End: 03-10-2025 Patient encounter procedure 03/10/2025 1:30 PM EDT Office Visit [facility] [address] [place] [address] Madyson Villafuerte PA-C [address] [place] [address] RIGHT HIP [facility] Comment on above: RIGHT HIP Start: 03-10-2025 End: 03-10-2025 Patient encounter procedure 03/10/2025 11:15 AM EDT Appointment [facility] Physical Therapy [address] [place] [phone] Corby Lewis PTA [facility] Therapy Start: 03-09-2025 End: 03-09-2025 Patient encounter procedure 03/09/2025 7:45 AM EDT Appointment [facility] Physical Therapy [address] [place], [place] [phone] Sergio Barkley [facility] Start: 03-06-2025 Adult BMI Screening Adult BMI Screening [facility] Start: 03-06-2025 Tobacco Screening Tobacco Screening [facility] Start: 03-05-2025 End: 03-05-2025 Patient encounter procedure [facility] Start: 03-04-2025 End: 03-04-2025 Patient encounter procedure 03/04/2025 10:40 AM EDT Office Visit [facility] [address] [place] [phone] Johnathan Haas MD [address] [phone] LBP, Hip pain, Needs New Imaging [facility] Comment on above: LBP, Hip pain, Needs New Imaging Start: 03-02-2025 End: 03-02-2025 Patient encounter procedure 03/02/2025 1:00 PM EDT Appointment [facility] Physical Therapy [address] [place] [phone] Arturo Virk, PT [facility] Start: 02-27-2025 End: 02-27-2025 Patient encounter procedure 02/27/2025 11:45 AM EDT Appointment [facility] Physical Therapy [address] [place] [address] Charlene Todd PTA [facility] Start: 02-24-2025 End: 02-24-2025 Patient encounter procedure 02/24/2025 11:15 AM EDT Appointment [facility] Therapy [address] [place] [address] Malaika Hernández, CHRISTOPHER R Hip Replacement [facility] Comment on above: R Hip Replacement Start: 02-23-2025 End: 02-23-2025 Admission to same day surgery center 02/23/2025 12:05 PM EDT - 02/23/2025 2:19 PM EDT Surgery [facility] - [facility] [address] [place] [address] Deniz Encarnacion MD [address] [place] [address] ARTHROSCOPY HIP W/ LABRAL REPAIR [facility] - [facility] Comment on above: ARTHROSCOPY HIP W/ LABRAL REPAIR Start: 02-23-2025 End: 02-23-2025 Arthroscopy hip w/labral repair ARTHROSCOPY HIP W/ LABRAL REPAIR Labral tear of hip, degenerative 02/23/2025 12:05 PM EDT [facility] Start: 02-23-2025 Subsequent hospital visit by physician 02/23/2025 12:05 PM EDT Hospital En[facility] [address] [place] [phone] Deniz Encarnacion MD [address] [place] [address] Labral tear of hip, degenerative [M24.159] [facility] [facility] Comment on above: Labral tear of hip, degenerative [M24.15 9] Start: 02-23-2025 End: 02-23-2025 Admission to same day surgery center 02/23/2025 7:30 AM EDT - 02/23/2025 9:45 AM EDT Surgery [facility] [address] [place] [id number] Deniz Encarnacion MD [address] [place] [address] ARTHROSCOPY HIP W/ LABRAL REPAIR [facility] Comment on above: ARTHROSCOPY HIP W/ LABRAL REPAIR Start: 02-23-2025 End: 02-23-2025 Arthroscopy hip w/labral repair ARTHROSCOPY HIP W/ LABRAL REPAIR Labral tear of hip, degenerative 02/23/2025 7:30 AM EDT [facility] Start: 02-23-2025 Subsequent hospital visit by physician 02/23/2025 7:30 AM EDT Hospital Encounter [facility] [address] [place] [address] Deniz Encarnacion MD [address] [place] [address] Labral tear of hip, degenerative [M24.159] [facility] Comment on above: Labral tear of hip, degenerative [M24.15 9] Start: 02-19-2025 End: 02-19-2025 Patient encounter procedure [facility] Comment on above: Arrived Start: 02-16-2025 End: 02-16-2025 Patient encounter procedure 02/16/2025 3:45 PM EDT [facility]ment [facility] [address] [place] [phone] Malaika Hernández, PT upoc [facility] Physical Therapy Comment on above: upoc Start: 02-12-2025 End: 02-12-2025 Patient encounter procedure 02/12/2025 3:45 PM EDT Appointment [facility] [address] [place] [address] [phone] Layla Sr PTA [facility] Physical Therapy Start: 02-10-2025 End: 02-10-2025 Patient encounter procedure 02/10/2025 4:00 PM EDT Appointment [facility] [address] [place] [address] [phone] Sergio Barkley [facility] Physical Therapy Start: 02-06-2025 End: 02-06-2025 Patient encounter procedure 02/06/2025 3:30 PM EDT Appointment [facility] Physical Therapy [address] [place] [address] [phone] Diann Tao [employer] [facility] Physical Therapy Start: 02-04-2025 End: 02-04-2025 Patient encounter procedure 02/04/2025 3:45 PM EDT Appointment [facility] Physical Therapy [address] [place] [address] [phone] Diann Tao [employer] [facility] Physical Therapy Start: 01-28-2025 End: 01-28-2025 Patient encounter procedure 01/28/2025 3:50 PM EDT Office Visit [facility] [address] [place] [phone] Tommie Mccann DO [address] [place] [address] Arrived [facility] Comment on above: Arrived Start: 01-21-2025 End: 01-21-2025 Patient encounter procedure 01/21/2025 3:15 PM EDT Appointment [facility] Physical Therapy [address] [place] [address] [phone] Charlene Todd PTA [facility] Physical Therapy Start: 2025 Adult BMI Screening Adult BMI Screening [facility] Start: 2025 Screening for malignant neoplasm of breast [facility] Start: 2025 Tobacco Screening Tobacco Screening [facility] Start: 01-07-2025 End: 01-07-2025 Patient encounter procedure 01/07/2025 10:45 AM EDT Office Visit [facility] [address] [place] [address] Deniz Encarnacion MD [address] [place] [address] Rt hip (scope) ref by dr guzmán Sports [facility] Comment on above: Rt hip (scope) ref by dr guzmán Start: 01-05-2025 End: 01-05-2025 Patient encounter procedure Pain Management Comment on above: Status post lumbar spinal fusion [Z98.1] Labral tear of hip, degenerative [M24.159] Start: 12-26-2024 End: 12-26-2024 Patient encounter procedure 12/26/2024 7:[address] [facility] [place] Scan [address] [place] [address] Spinal stenosis of lumbar region, unspecified whether neurogenic claudication present [M48.061] [facility] Radiology CT Scan Comment on above: Spinal stenosis of lumbar region, unspec ified whether neurogenic claudication present [M48.061] Start: 12-10-2024 Adult BMI Screening Adult BMI Screening [facility] Start: 12-10-2024 Tobacco Screening Tobacco Screening [facility] Start: 12-02-2024 End: 12-02-2024 Patient encounter procedure 12/02/2024 8:00 AM EDT Office Visit [facility] [address] [place] [address] [phone] Myra Barnard V PA [address] [phone] [facility] Start: 09-17-2024 End: 09-17-2024 Patient encounter procedure 09/17/2024 8:45 AM EST Office Visit [facility] [address] [place] [phone] [place] [address] [place] [address] [phone] [facility] Start: 08-13-2024 End: 08-13-2024 Patient encounter procedure 08/13/2024 9:00 AM EST Office Visit [facility] [address] [place] [phone] Shirin Nath MD MPH [address] [phone] [facility] Start: 08-01-2024 End: 08-01-2024 Patient encounter procedure 08/01/2024 10:30 AM EST Appointment [facility] Physical [facility] [address] [place], [place] [phone] Malaika Hernández, PT UP[facility] Physical [facility] Comment on above: UPOC Start: 07-30-2024 End: 07-30-2024 Patient encounter procedure 07/30/2024 9:00 AM EST Appointment [facility] Physical [facility] [address] [place] [phone] Faizan Delgado PTA [facility] Physical [facility] Start: 07-25-2024 End: 07-25-2024 Patient encounter procedure 07/25/2024 9:30 AM EST Appointment [facility] Physical Therapy [address] [place], [place] [phone] Venessa Bonilla PTA [facility] Start: 07-23-2024 End: 07-23-2024 Patient encounter procedure 07/23/2024 9:00 AM EST Appointment [facility] Physical [facility] [address] [place] [phone] Faizan Delgado PTA [facility] Start: 07-18-2024 End: 07-18-2024 Patient encounter procedure 07/18/2024 9:30 AM EST Appointment [facility] [address] [place] [address] [phone] Venessa Bonilla PTA [facility] Start: 07-16-2024 End: 07-16-2024 Patient encounter procedure [facility] Start: 07-11-2024 End: 07-11-2024 Patient encounter procedure [facility] Start: 07-09-2024 End: 07-09-2024 Patient encounter procedure 07/09/2024 9:00 AM EDT Appointment [facility] [address] [place] [phone] Faizan Delgado PTA [facility] Start: 07-04-2024 End: 07-04-2024 Patient encounter procedure 07/04/2024 9:30 AM EDT Appointment [facility] [address] [place] [address], [place] [phone] Venessa Bonilla PTA [facility] Physical Therapy Start: 07-02-2024 End: 07-02-2024 Patient encounter procedure 07/02/2024 9:00 AM EDT Appointment [facility] [address] [place] [phone] Faizan Delgado PTA [facility] Physical Therapy Start: 06-27-2024 End: 06-27-2024 Patient encounter procedure 06/27/2024 9:30 AM EDT Appointment [facility] Physical Therapy [address] [place] [address], [place] [address] Venessa Bonilla, ANDREIA [facility] Physical Therapy Start: 06-25-2024 End: 06-25-2024 Patient encounter procedure 06/25/2024 9:00 AM EDT Appointment [facility] Physical Therapy [address] [place] [address], [place] [address] Faizan Delgado PTA [facility] Physical Therapy Start: 06-20-2024 End: 06-20-2024 Patient encounter procedure 06/20/2024 10:30 AM EDT Appointment [facility] Physical Therapy [address] [place] [address], [place] [phone] Malaika Hernández, CHRISTOPHER [facility] Physical Therapy Start: 06-18-2024 End: 06-18-2024 Patient encounter procedure 06/18/2024 11:30 AM EDT Appointment [facility] Physical Therapy [address] [place] [phone] Charlene Todd PTA [facility] Physical Therapy Start: 06-09-2024 End: 06-09-2025 C-peptide C-peptide Lab Routine Hormone disorder Expected: 06/09/2024, Expires: 06/09/2025 [facility] Comment on above: Expected: 06/09/2024, Expires: Start: 06-09-2024 End: 06-09-2025 Cortisol free Cortisol, free Lab Routine Hormone disorder Expected: 06/09/2024, Expires: 06/09/2025 [facility] Comment on above: Expected: 06/09/2024, Expires: Start: 06-09-2024 End: 06-09-2025 DHEA-sulfate DHEA-sulfate Lab Routine Hormone disorder Expected: 06/09/2024 (Approximate), Expires: 06/09/2025 [facility] Comment on above: Expected: 06/09/2024 (Approximate), Expi res: 06/09/2025 Start: 06-09-2024 End: 06-09-2025 Estradiol Estradiol Lab Routine Hormone disorder Expected: 06/09/2024 (Approximate), Expires: 06/09/2025 [facility] Work Phone: Comment on above: Expected: 06/09/2024 (Approximate), Expi res: 06/09/2025 Start: 06-09-2024 End: 06-09-2025 Estrone Estrone Lab Routine Hormone disorder Expected: 06/09/2024 (Approximate), Expires: 06/09/2025 [facility] Comment on above: Expected: 06/09/2024 (Approximate), Expi res: 06/09/2025 Start: 06-09-2024 End: 06-09-2025 Ferritin [Mass/volume] in Serum or Plasma Ferritin Lab Routine Hormone disorder Expected: 06/09/2024 (Approximate), Expires: 06/09/2025 [facility] Comment on above: Expected: 06/09/2024 (Approximate), Expi res: 06/09/2025 Start: 06-09-2024 End: 06-09-2025 Glucose [Mass/volume] in Serum or Plasma Glucose, random Lab Routine Hormone disorder Expected: 06/09/2024, Expires: 06/09/2025 [facility] Comment on above: Expected: 06/09/2024, Expires: Start: 06-09-2024 End: 06-09-2025 Hemoglobin A1c/Hemoglobin.total in Blood Hemoglobin A1c Lab Routine Hormone disorder Expected: 06/09/2024 (Approximate), Expires: 06/09/2025 [facility] Comment on above: Expected: 06/09/2024 (Approximate), Expi res: 06/09/2025 Start: 06-09-2024 End: 06-09-2025 Insulin, total Insulin, total Lab Routine Hormone disorder Expected: 06/09/2024, Expires: 06/09/2025 [facility] Comment on above: Expected: 06/09/2024, Expires: Start: 06-09-2024 End: 06-09-2025 Progesterone Progesterone Lab Routine Hormone disorder Expected: 06/09/2024 (Approximate), Expires: 06/09/2025 [facility] Comment on above: Expected: 06/09/2024 (Approximate), Expi res: 06/09/2025 Start: 06-09-2024 End: 06-09-2025 Serotonin serum Serotonin serum Lab Routine Hormone disorder Expected: 06/09/2024, Expires: 06/09/2025 [facility] Comment on above: Expected: 06/09/2024, Expires: Start: 06-09-2024 End: 06-09-2025 Sex hormone binding globulin Sex hormone binding globulin Lab Routine Hormone disorder Expected: 06/09/2024 (Approximate), Expires: 06/09/2025 [facility] Comment on above: Expected: 06/09/2024 (Approximate), Expi res: 06/09/2025 Start: 06-09-2024 End: 06-09-2025 T3, reverse T3, reverse Lab Routine Hormone disorder Expected: 06/09/2024 (Approximate), Expires: 06/09/2025 [facility] Comment on above: Expected: 06/09/2024 (Approximate), Expi res: 06/09/2025 Start: 06-09-2024 End: 06-09-2025 TESTOSTERONE, FREE TESTOSTERONE, FREE Lab Routine Hormone disorder Expected: 06/09/2024 (Approximate), Expires: 06/09/2025 [facility] Comment on above: Expected: 06/09/2024 (Approximate), Expi res: 06/09/2025 Start: 06-09-2024 End: 06-09-2025 Testosterone, free, total Testosterone, free, total Lab Routine Hormone disorder Expected: 06/09/2024 (Approximate), Expires: 06/09/2025 [facility] Comment on above: Expected: 06/09/2024 (Approximate), Expi res: 06/09/2025 Start: 06-09-2024 End: 06-09-2025 Thyroglobulin Thyroglobulin Lab Routine Hormone disorder Expected: 06/09/2024, Expires: 06/09/2025 [facility] Comment on above: Expected: 06/09/2024, Expires: Start: 06-09-2024 End: 06-09-2025 Thyroglobulin Antibody Thyroglobulin Antibody Lab Routine Hormone disorder Expected: 06/09/2024, Expires: 06/09/2025 [facility] Comment on above: Expected: 06/09/2024, Expires: Start: 06-09-2024 End: 06-09-2025 Thyroid peroxidase antibody Thyroid peroxidase antibody Lab Routine Hormone disorder Expected: 06/09/2024 (Approximate), Expires: 06/09/2025 [facility] Comment on above: Expected: 06/09/2024 (Approximate), Expi res: 06/09/2025 Start: 06-09-2024 End: 06-09-2025 Thyrotropin [Units/volume] in Serum or Plasma [facility] Comment on above: Expected: 06/09/2024 (Approximate), Expi res: 06/09/2025 Expected: 06/09/2024 , Expires: 06/09/2025 Start: 06-09-2024 End: 06-09-2025 Thyroxine (T4) free [Mass/volume] in Serum or Plasma T4, free Lab Routine Hormone disorder Expected: 06/09/2024 (Approximate), Expires: 06/09/2025 [facility] Comment on above: Expected: 06/09/2024 (Approximate), Expi res: 06/09/2025 Start: 06-09-2024 End: 06-09-2025 Triiodothyronine (T3) Free [Mass/volume] in Serum or Plasma T3, free Lab Routine Hormone disorder Expected: 06/09/2024 (Approximate), Expires: 06/09/2025 [facility] Comment on above: Expected: 06/09/2024 (Approximate), Expi res: 06/09/2025 Start: 06-09-2024 End: 06-09-2025 Vitamin D 1,25 dihydroxy Vitamin D 1,25 dihydroxy Lab Routine Hormone disorder Expected: 06/09/2024 (Approximate), Expires: 06/09/2025 [facility] Comment on above: Expected: 06/09/2024 (Approximate), Expi res: 06/09/2025 Start: 06-09-2024 End: 06-09-2024 Patient encounter procedure 06/09/2024 10:10 AM EDT Office Visit [facility] BCP OB [address] [phone] Tommie Mccann, [address] [place] [address] Arrived [facility] Comment on above: Arrived Start: 05-26-2024 End: 05-26-2024 Patient encounter procedure 05/26/2024 9:45 AM EDT Appointment [facility] Physical Therapy [address] [place] [address] [phone] Malaika Villanueva PT HIP REPLACEMENT [facility] Physical Therapy Comment on above: HIP REPLACEMENT Start: 05-11-2024 COVID-19 Vaccine ( season) COVID-19 Vaccine ( season) [facility] Start: 05-11-2024 COVID-19 Vaccine ( season) COVID-19 Vaccine ( season) [facility] Start: 05-11-2024 Influenza vaccination [facility] Start: 04-10-2024 Influenza vaccination [facility] Start: 04-09-2024 End: 04-09-2024 Patient encounter procedure 04/09/2024 8:00 AM EDT Office Visit [facility] [address] [place] [address] [phone] Shirin Nath MD [address] [phone] [facility] Start: 02-23-2024 Depression Monitoring [facility] Start: 02-23-2024 Screening for malignant neoplasm of cervix Cervical cancer screen [facility] Comment on above: Postponed from 2006 (Not Indicated ) Start: 01-09-2024 End: 01-09-2024 Clinical Support [facility] Start: 08-18-2023 Depression Monitoring Depression Monitoring [facility] Start: 08-17-2023 Hemoglobin A1c measurement A1C test (Diabetic or Prediabetic) [facility] Start: 08-17-2023 Lipid panel Lipids [facility] Start: 06-13-2023 Depression Monitoring Depression Monitoring [facility] Start: 06-13-2023 DTaP/Tdap/Td vaccine (1 - Tdap) DTaP/Tdap/Td vaccine (1 - Tdap) [facility] Comment on above: Postponed from 01/09/2004 (Patient Refus ed) Start: 06-13-2023 Hepatitis C screening Hepatitis C screen [facility] Comment on above: Postponed from 2003 (Patient Refus ed) Start: 06-13-2023 HIV screening HIV screen [facility] Comment on above: Postponed from 01/09/2000 (Patient Refus ed) Start: 05-23-2023 Influenza vaccination Flu vaccine (#1) [facility] Comment on above: Postponed from 04/10/2022 (Patient Refus ed) Start: 05-11-2023 COVID-19 Vaccine ( season) COVID-19 Vaccine ( season) [facility] Start: 05-11-2023 Influenza vaccination INFLUENZA VACCINE (#1) [facility] Start: 04-10-2023 Influenza vaccination Flu vaccine (#1) [facility] Start: 02-20-2023 End: 02-20-2023 Patient encounter procedure 02/20/2023 Office Visit Primary Care Tiffany Tejeda, 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 [address] [place] [address] [facility] Start: 02-16-2023 COVID-19 Vaccine (3 - Booster for Pfizer series) COVID-19 Vaccine (3 - Booster for Pfizer series) [facility] Comment on above: Postponed from 07/28/2021 (Not Indicated ) Postponed from 04/22 (Not Indicated) Start: 02-16-2023 Hemoglobin A1c measurement A1C test (Diabetic or Prediabetic) [facility] Start: 10-21-2022 Depression Monitoring Depression Monitoring [facility] Start: 08-18-2022 End: 08-18-2022 Patient encounter procedure 08/18/2022 Office Visit Primary Care Tiffany Tejeda 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 [address] [place] [facility] [place] [address] [facility] Start: 07-05-2022 End: 07-05-2022 Patient encounter procedure 07/05/2022 Appointment Radiology [facility] Start: 05-26-2022 Depression Monitoring Depression Monitoring [facility] Start: 05-26-2022 DTaP/Tdap/Td vaccine (1 - Tdap) DTaP/Tdap/Td vaccine (1 - Tdap) [facility] Comment on above: Postponed from 01/09/2004 (Patient Refus ed) Start: 05-26-2022 Hepatitis C screening Hepatitis C screen [facility] Comment on above: Postponed from 1985 (Patient Refus ed) Start: 05-26-2022 HIV screening HIV screen [facility] Comment on above: Postponed from 01/09/2000 (Patient Refus ed) Start: 05-26-2022 Influenza vaccination Flu vaccine (#1) [facility] Comment on above: Postponed from 05/11/2021 (Patient Refus ed) Start: 05-26-2022 Screening for malignant neoplasm of cervix Cervical cancer screen [facility] Comment on above: Postponed from 2015 (Not Indicated ) Postponed from 01/08 (Not Indicated) Start: 05-11-2022 Influenza vaccination INFLUENZA VACCINE (#1) [facility] Start: 04-18-2022 Hemoglobin A1c measurement A1C test (Diabetic or Prediabetic) [facility] Start: 10-20-2021 End: 10-20-2021 Patient encounter procedure 10/20/2021 Office Visit Primary Care Tiffany Tejeda, 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 [address] [place] [facility] [place] [address] [facility] Start: 07-28-2021 COVID-19 Vaccine (3 - Booster for Pfizer series) COVID-19 Vaccine (3 - Booster for Pfizer series) [facility] Start: 06-24-2021 End: 06-24-2021 Patient encounter procedure 06/24/2021 Office Visit Primary Care Tiffany Tejeda 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 [address] [place] [address] [phone] [facility] Start: 06-22-2021 End: 06-22-2021 Patient encounter procedure 06/22/2021 Office Visit [facility] Start: 06-16-2021 Varicella vaccine (1 of 2 - 2-dose childhood series) Varicella vaccine (1 of 2 - 2-dose childhood series) [facility] Work Phone: Comment on above: Postponed from 1986 (Not Indicated ) Start: 05-26-2021 End: 05-26-2021 Patient encounter procedure 05/26/2021 Office Visit Primary Care Tiffany Tejeda, 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 [address] [place] [address] [phone] [facility] Start: 05-11-2021 Influenza vaccination [facility] Phone: Start: 03-23-2021 End: 03-23-2021 Patient encounter procedure 03/23/2021 Office Visit [facility] Start: 09-22-2020 End: 09-22-2020 Office Visit 09/22/2020 Office Visit [facility] Start: 05-11-2020 Influenza vaccination [place] Start: 09-18-2019 End: 09-18-2019 Clinical Support 09/18/2019 Clinical Support Otolaryngology Noelle Chaidez MA [facility] Start: 05-11-2019 Influenza vaccination Flu vaccine (#1) [place] Start: 05-11-2019 Influenza vaccination given SEQUENTIAL INFLUENZA VACCINE (#1) [facility] Start: 2015 Screening for malignant neoplasm of cervix [facility] Start: 01-09-2012 HPV Vaccine (1 - 3-dose SCDM series) HPV Vaccine (1 - 3-dose SCDM series) [facility] Start: 2006 Cervical cancer screen Cervical cancer screen [place], [place] Start: 2006 Screening for malignant neoplasm of cervix [facility] Start: 01-09-2004 DTaP,Tdap and Td Vaccines (1 - Tdap) DTaP,Tdap and Td Vaccines (1 - Tdap) [facility] Start: 01-09-2004 DTaP/Tdap/Td vaccine (1 - Tdap) DTaP/Tdap/Td vaccine (1 - Tdap) [facility] Start: 01-09-2004 Hepatitis B vaccine (1 of 3 - 19+ 3-dose series) Hepatitis B vaccine (1 of 3 - 19+ 3-dose series) [facility] Start: 01-09-2004 Third diphtheria, tetanus and acellular pertussis (DTaP) vaccination TDAP (ADULT) [facility] Start: 01-09-2004 Urine microalbumin profile DTaP,Tdap,Td Vaccine (1 - Tdap) [facility] Start: 2003 Adult BMI Follow Up Plan Adult BMI Follow Up Plan [facility] Start: 2003 Anxiety Screening Anxiety Screening [facility] Start: 2003 Depression Screening Depression Screening [facility] Start: 2003 Hepatitis C screening [facility] Start: 2003 HIV screening HIV Screening [facility] Start: 2003 Tetanus vaccination TETANUS [facility] Start: 2001 COVID-19 Vaccine (1) COVID-19 Vaccine (1) [facility] [employer] Phone: Start: 01-09-2000 HIV screen HIV screen [place] Start: 01-09-2000 HIV screening [facility] Start: 1997 COVID-19 Vaccine (1) COVID-19 Vaccine (1) [facility] [employer] Phone: Start: 1997 Depression Monitoring Depression Monitoring [facility] Start: 1997 Depression Screening Depression Screening [facility] Start: 01-09-1996 DTaP/Tdap/Td vaccine (1 - Tdap) DTaP/Tdap/Td vaccine (1 - Tdap) [place] Start: 01-09-1988 History and physical examination, annual for health maintenance Wellness Visit [facility] Start: 1986 Varicella vaccine (1 of 2 - 2-dose childhood series) Varicella vaccine (1 of 2 - 2-dose childhood series) [place] Start: 1985 COVID-19 VACCINE (#1) COVID-19 VACCINE (#1) [facility] Start: 1985 Hepatitis B vaccination HEP B VACCINE (1 of 3 - 3-dose series) [facility] Start: 1985 Hepatitis B vaccine (1 of 3 - 3-dose series) Hepatitis B vaccine (1 of 3 - 3-dose series) [facility] Start: 1985 Hepatitis C antibody, confirmatory test HEPATITIS C VIRUS SCREENING [facility] Start: 1985 Hepatitis C screening [facility] Start: 1985 Screening for malignant neoplasm of cervix PAP SMEAR [facility] Start: 1985 Tetanus vaccination [facility] End: 05-31-2021 LARISSA Screen With Reflex [facility] Screen With Reflex Lab Routine Chronic pain syndrome 1 Occurrences starting 05/31/2021 until 05/31/2021 [employer] Phone: Comment on above: 1 Occurrences starting 05/31/2021 until 05/31/2021 LARISSA Screen With Reflex LARISSA Scree n With Reflex Lab Routine Chronic pain syndrome 05/31/2021 10:43 AM EDT [facility] [employer] Phone: End: 06-15-2020 Blood glucose - POCT Blood glucose - POCT Point of Care Testing Routine One Time for 1 Occurrences starting 06/15/2020 until 06/15/2020 [place] Comment on above: One Time for 1 Occurrences starting 02/2020 until 06/15/2020 End: 02-18-2021 C.trachomatis N.gonorrhoeae DNA C.trachomatis N.gonorrhoeae DNA Microbiology STAT One Time for 1 Occurrences starting 02/18/2021 until 02/18/2021 [facility] Phone: Comment on above: One Time for 1 Occurrences starting 02/08 until 02/18/2021 C.trachomatis N.gonorrhoeae DNA C.trachomatis N.gonorrhoeae DNA Microbiology STAT 02/18/2021 7:48 PM EDT [employer] Work Phone: CHLAMYDIA TRACHOMATI S (GENITO/STI) CHLAMYDIA TRACHOMATIS (GENITO/STI) Lab Routine Pelvic pain in female Ordered: 01/28/2025 [facility] Comment on above: Ordered: 01/28/2025 End: 01-14-2026 CT Lumbar spine WO contrast CT LUMBAR SPINE WO IVCON Radiology Routine Spinal stenosis of lumbar region, unspecified whether neurogenic claudication present 1 Occurrences starting 12/15/2024 until 01/14/2026 [facility] Comment on above: 1 Occurrences starting 12/15/2024 until 01/14/2026 End: 12-26-2024 CT Lumbar spine WO contrast [facility] Work Phone: Comment on above: 1 Occurrences starting 12/26/2024 until 12/26/2024 End: 05-31-2021 Cyanocobalamin vitamin b-12 Vitamin B12 Lab Routine Chronic fatigue 1 Occurrences starting 05/31/2021 until 05/31/2021 [employer] Work Phone: Comment on above: 1 Occurrences starting 05/31/2021 until 05/31/2021 Cyanocobalamin vitam in b-12 Vitamin B12 Lab Routine Chronic fatigue 05/31/2021 10:44 AM EDT [employer] Work Phone: End: 05-14-2025 Cytoplasmic Neutrophilic Ab, S Cytoplasmic Neutrophilic Ab, S Lab Routine Nasal septum perforation Osteoarthritis, unspecified osteoarthritis type, unspecified site 1 Occurrences starting 05/14/2024 until 05/14/2025 [employer] Work Phone: Comment on above: 1 Occurrences starting 05/14/2024 until 05/14/2025 EKG 12 Lead EKG 12 Lead ECG STAT 07/30/2019 8:36 AM EST [employer]- [place], [place] EKG 12 Lead EKG 12 Lead ECG Routine 10/15/2024 3:50 PM EST Analia Hammond [employer] End: 06-25-2026 EMG(NEURO/NI) EMG(NEURO/NI) EMG Routine Bilateral carpal tunnel syndrome 1 Occurrences starting 03/04/2025 until 03/04/2026 [facility] Comment on above: 1 Occurrences starting 03/04/2025 until 03/04/2026 End: 07-30-2019 Free T4 [Mass/Vol] T4, Free Lab STAT One Time for 1 Occurrences starting 07/30/2019 until 07/30/2019 [employer] [facility] Comment on above: One Time for 1 Occurrences starting 07/12 until 07/30/2019 Free T4 [Mass/Vol] T4, Free Lab STAT 07/30/2019 8:15 AM [employer] End: 06-21-2022 HLA-B27 Antigen [employer] Phone: Comment on above: Once for 1 Occurrences starting 06/21/20 22 until 06/21/2022 Lupus Anticoagulant Lupus Antico agulant Lab Routine 08/22/2019 4:31 PM [employer] Phone: End: 04-18-2021 MRSA DNA Probe, Nasal MRSA DNA Probe, Nasal Microbiology STAT Once for 1 Occurrences starting 04/18/2021 until 04/18/2021 [employer] Phone: Comment on above: Once for 1 Occurrences starting 04/18/20 21 until 04/18/2021 MRSA DNA Probe, Nasal MRSA DNA P robe, Nasal Microbiology STAT 04/18/2021 9:44 AM EDT [employer] Phone: End: 10-10-2021 MRSA DNA Probe, Nasal [employer] Phone: Comment on above: Once for 1 Occurrences starting 10/10/19 22 until 10/10/2021 End: 05-14-2025 Myeloperoxidase AB Myeloperoxidase AB Lab Routine Nasal septum perforation Osteoarthritis, unspecified osteoarthritis type, unspecified site 1 Occurrences starting 05/14/2024 until [facility]14/[facility] on above: 1 Occurrences starting 05/14/2024 until 05/14/2025 Myeloperoxidase Ab [Units/volume] in Serum Myeloperoxidase AB Lab Routine Nasal septum perforation Osteoarthritis, unspecified osteoarthritis type, unspecified site 05/14/2024 4:57 PM EDT [employer] [facility] Neisseria gonorrhoea e DNA [Presence] in Unspecified specimen by GARO with probe detection Neisseria gonorrhea DNA probe, direct Lab Routine Pelvic pain in female Ordered: 01/28/2025 [facility] Comment on above: Ordered: 01/28/2025 Neutrophil cytoplasm ic Ab panel - Serum by Immunofluorescence Cytoplasmic Neutrophilic Ab, S Lab Routine Nasal septum perforation Osteoarthritis, unspecified osteoarthritis type, unspecified site 05/14/2024 4:57 PM EDT [employer] End: 08-22-2019 Nuclear Ab [Titer] in Serum by Immunofluorescence LARISSA Lab Routine Once for 1 Occurrences starting 08/22/2019 until 08/22/2019 [employer] Phone: Comment on above: Once for 1 Occurrences starting 08/22/20 19 until 08/22/2019 Nuclear Ab [Titer] i n Serum by Immunofluorescence LARISSA Lab Routine 08/22/2019 4:31 PM [facility] [employer] Phone: End: 06-21-2022 Nuclear Ab [Titer] in Serum by Immunofluorescence [facility] Phone: Comment on above: Once for 1 Occurrences starting 06/21/20 22 until 06/21/2022 Oxygen therapy [[facility] Data Set] Initiate Oxygen Therapy Protocol Respiratory Care Routine As Needed until discontinued starting 08/24/2023 [employer] Comment on above: As Needed until discontinued starting End: 06-15-2020 , urine , urine Lab Routine One Time for 1 Occurrences starting 06/15/2020 until 06/15/2020 [employer] [place], [place] Comment on above: One Time for 1 Occurrences starting 02/2020 until 06/15/2020 Proteinase 3 Ab [Units/volume] in Serum Proteinase 3 AB PR3 Lab Routine Nasal septum perforation Osteoarthritis, unspecified osteoarthritis type, unspecified site 05/14/2024 4:57 PM EDT [employer] End: 05-14-2025 Proteinase 3 AB PR3 Proteinase 3 AB PR3 Lab Routine Nasal septum perforation Osteoarthritis, unspecified osteoarthritis type, unspecified site 1 Occurrences starting 05/14/2024 until 05/14/2025 [employer] Comment on above: 1 Occurrences starting 05/14/2024 until 05/14/2025 SURESWAB(R) ADVANCED VAGINITIS PLUS, TMA SURESWAB(R) ADVANCED VAGINITIS PLUS, TMA Pathology and Cytology Routine Pelvic pain in female Ordered: 01/28/2025 [employer] Work Phone: Comment on above: Ordered: 01/28/2025 THIN PREP TIS PAP AN D HR HPV DNA THIN PREP TIS PAP AND HR HPV DNA Pathology and Cytology Routine Well woman exam with routine gynecological exam Ordered: 02/19/2025 [employer] Comment on above: Ordered: 02/19/2025 End: 12-03-2024 Thyroxine (T4) free [Mass/volume] in Serum or Plasma [facility] Comment on above: One Time for 1 Occurrences starting 11/09 until 12/03/2024 End: 01-14-2026 XR Lumbar spine Views W flexion and W extension XR LUMBAR MOTION 4V AP/LAT/ FLEX/EXT Radiology Routine Status post lumbar spinal fusion 1 Occurrences starting 12/15/2024 until 01/14/[address] [facility] Work Phone: Comment on above: 1 Occurrences starting 12/15/2024 until 01/14/2026 End: 04-03-2026 XR Lumbar spine Views W flexion and W extension XR LUMBAR MOTION 4V AP/LAT/ FLEX/EXT Radiology Routine Chronic pain syndrome Failed back syndrome Mechanical back pain 1 Occurrences starting 03/04/2025 until 04/03/[address] [facility] Work Phone: Comment on above: 1 Occurrences starting 03/04/2025 until 04/03/2026 End: 01-14-2026 XR Pelvis and Hip - right AP and Lateral frog XR HIP GENERAL 3V PELV/AP/LAT RIGHT Radiology Routine Status post lumbar spinal fusion Unilateral groin pain Labral tear of hip, degenerative Pain in right hip 1 Occurrences starting 12/15/2024 until 01/14/2026 [facility] Comment on above: 1 Occurrences starting 12/15/2024 until 01/14/2026 End: 01-31-2026 XR Pelvis and Hip - right AP and Lateral frog XR HIP GENERAL 3V PELV/AP/LAT RIGHT Radiology Routine Pain in right hip 1 Occurrences starting 01/01/2025 until 01/31/[address] [facility] Work Phone: Comment on above: 1 Occurrences starting 01/01/2025 until 01/31/2026 XR Pelvis and Hip - right AP and Lateral frog XR HIP GENERAL 3V PELV/AP/LAT RIGHT Radiology Routine Pain in right hip 01/05/2025 3:14 PM EDT [facility] Immunizations Immunization Date Immunization Notes Care Provider Samina harper 07-07-2022 influenza virus vaccine, unspecified formulation Tiffany Might 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IP[employer] HELPER Work Phone: [facility] Work Phone: 07-07-2022 influenza, injectable, quadrivalent, preservative free Tiffany Might 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 - [employer]IPPER HELPER Work Phone: [facility] Work Phone: 02-25-2021 SARS-CoV-2 (COVID-19 ) mRNA BNT-162b2 [facility] Malaika Lan [facility] Comment on above: Result Comment: 2022: TPVAL 02-04-2021 SARS-CoV-2 (COVID-19 ) mRNA BNT-162b2 papatricio Lan [facility] Comment on above: Result Comment: 2022: TPVAL 07-02-2020 Influenza, injectable, Madin Leigha Canine Kidney, preservative free, quadrivalent Tiffany Might 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 - [employer] STRIPPER HELPER Work Phone: [facility] Work Phone: 07-02-2020 influenza virus vaccine, unspecified formulation Yas Serrano MD Work Phone: [facility] 07-14-2019 influenza virus vaccine, unspecified formulation Malaika Lan [facility] 07-14-2019 influenza, injectable, quadrivalent, contains preservative Tiffany Might 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 - [employer] STRIPPER HELPER Work Phone: [facility] 07-14-2019 influenza, seasonal, injectable Tiffany Might 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 - [employer] STRIPPER HELPER Work Phone: [facility] Work Phone: Payers Date Payer Category Payer Commercial Managed C are - POS [employer]ETNA [id number] 11-08-2023 Managed Care HMO (unspecified) AETNA AETNA [id number] 11/08/2023-Present [address] [place] [address] HMO [id number] 11-08-2023 Private Health Insurance AETNA AETNA POS [id number] 11/08/2023-Present [phone] [address] [place] [address] [id number] 2.7.3.084728.315 11-08-2023 Private Health Insurance [id number]. 2.7.3.371529.315 09-01-2023 Unknown GENERIC AUTO INS URANCE GENERIC AUTO INSURANCE [phone] 09/01/2023-Present [address] [place] [address] [id number] 1.2.840.492210.1.13.239. 2.7.3.417306.315 10-11-2022 Medicaid [id number] 1.2.840.554498.1.13.239. 2.7.3.119482.315 10-11-2022 Medicaid [id number]. 1.13.172. 2.7.3.043515.315 01-18-2021 Unknown 10-03-2018 Private Health Insurance [id number] 09-10-2018 Medicaid [id number] 1.2.840.432670.1.13.385. 2.7.3.518809.315 02-08-2018 Unknown [id number] 11-08-2017 Medicaid [id number] 1985 Unknown [id number] 2.16.840.1.836964.3.579. 2.754 1985 Unknown [id number] 2.16.840.1.177680.3.579. 2.754 1985 Unknown [id number] 2.16.840.1.790120.3.579. 2.754 1985 Unknown [id number] 2.16.840.1.664579.3.579. 2.903 1985 Unknown [id number] 2.16.840.1.180822.3.579. 2.903 1985 Unknown [id number] 2.16.840.1.616318.3.579. 2.593 1985 Unknown [id number] 2.16.840.1.516464.3.579. 2.593 1985 Unknown [id number] 2.16.840.1.620622.3.579. 2.593 1985 Unknown [id number] 2.16.840.1.918143.3.579. 2.593 1985 Unknown [id number] 2.16.840.1.705043.3.579. 2.593 1985 Unknown [id number] 2.16.840.1.317282.3.579. 2.593 1985 Unknown [id number] 2.16.840.1.583065.3.579. 2.593 1985 Unknown [id number] 2.16.840.1.550053.3.579. 2.593 1985 Unknown [id number] 2.16.840.1.971809.3.579. 2.196 1985 Unknown [id number] 2.16.840.1.519878.3.579. 2.196 1985 Unknown [id number] 2.16.840.1.070484.3.579. 2.196 1985 Unknown [id number] 2.16.840.1.177343.3.579. 2. 1985 Unknown [id number] 2.16.840.1.089279.3.579. 2. 1985 Unknown [id number] 2.16.840.1.558040.3.579. 2. 1985 Unknown [id number] 2.16.840.1.564543.3.579. 2.196 1985 Unknown [id number] 2.16.840.1.864512.3.579. 2. 1985 Unknown [id number] 2.16.840.1.613158.3.579. 2. 1985 Unknown [id number] 2.16.840.1.995679.3.579. 2.196 1985 Unknown [id number] 2.16.840.1.843452.3.579. 2.196 1985 Unknown [id number] 2.16.840.1.378810.3.579. 2. 1985 Unknown [id number] 2.16.840.1.939660.3.579. 2.93 1985 Unknown [id number] 2.16.840.1.995510.3.579. 2.1286 1985 Unknown [id number] 2.16.840.1.239798.3.579. 2.1285 1985 Unknown [id number] 2.16.840.1.326691.3.579. 2.1285 1985 Unknown [id number] 2.16.840.1.521680.3.579. 2.1285 1985 Unknown [id number] 2.16.840.1.647190.3.579. 2.1285 1985 Unknown [id number] 2.16.840.1.491166.3.579. 2.1285 1985 Unknown [id number] 2.16.840.1.384137.3.579. 2.1285 1985 Unknown [id number] 2.16.840.1.592241.3.579. 2.1285 1985 Unknown [id number] 2.16.840.1.119997.3.579. 2.1285 1985 Unknown [id number] 2.16.840.1.528639.3.579. 2. 1985 Unknown [id number] 2.16.840.1.564703.3.579. 2. 1985 Unknown [id number] 2.16.840.1.127469.3.579. 2. 1985 Unknown [id number] 2.16.840.1.825886.3.579. 2. 1985 Unknown [id number] 2.16.840.1.562008.3.579. 2. 1985 Unknown [id number] 2.16.840.1.597174.3.579. 2. 1985 Unknown [id number] 2.16.840.1.436585.3.579. 2. 1985 Unknown [id number] 2.16.840.1.768055.3.579. 2. 1985 Unknown [id number] 2.16.840.1.602999.3.579. 2 1985 Unknown [id number] 2.16.840.1.129362.3.579. 1985 Unknown [id number] 2.16.840.1.537721.3.579. 1985 Unknown [id number] 2.16.840.1.338362.3.579. 1985 Unknown [id number] 2.16.840.1.156644.3.579. 1985 Unknown [id number] 2.16.840.1.703320.3.579. 1985 Unknown [id number] 2.16.840.1.840925.3.579. 1985 Unknown [id number] 2.16.840.1.217601.3.579. 1985 Unknown [id number] 2.16.840.1.079027.3.579. 1985 Unknown [id number] 2.16.840.1.483266.3.579. 1985 Unknown [id number] 2.16.840.1.626819.3.579. 1985 Unknown [id number] 2.16.840.1.055841.3.579. 1985 Unknown [id number] 2.16.840.1.921341.3.579. 1985 Unknown [id number] 2.16.840.1.899892.3.579. 1985 Unknown [id number] 2.16.840.1.566327.3.579. 1985 Unknown [id number] 2.16.840.1.065658.3.579. 2. 1985 Unknown [id number] 2.16.840.1.416947.3.579. 2. 1985 Unknown [id number] 2.16.840.1.568173.3.579. 2. 1985 Unknown [id number] 2.16.840.1.361915.3.579. 2. 1985 Unknown [id number] 2.16.840.1.353167.3.579. 2. 1985 Unknown [id number] 2.16.840.1.425238.3.579. 2. 1985 Unknown [id number] 2.16.840.1.851360.3.579. 2.1258 1985 Unknown [id number] 2.16.840.1.974701.3.579. 2.1258 1985 Unknown [id number] 2.16.840.1.333508.3.579. 2.1258 1985 Unknown [id number] 2.16.840.1.933731.3.579. 2.1258 1985 Unknown [id number] 2.16.840.1.952272.3.579. 2.1258 1985 Unknown [id number] 2.16.840.1.182155.3.579. 2. 1985 Unknown [id number] 2.16.840.1.501074.3.579. 2. 1985 Unknown [id number] 2.16.840.1.524167.3.579. 2.173 1985 Unknown [id number] 2.16.840.1.028722.3.579. 2. 1985 Unknown [id number] 2.16.840.1.606060.3.579. 2. 1985 Unknown [id number] 2.16.840.1.506931.3.579. 2. 1985 Unknown [id number] 2.16.840.1.003659.3.579. 2.173 1985 Unknown [id number] 2.16.840.1.808210.3.579. 2.173 1985 Unknown [id number] 2.16.840.1.789326.3.579. 2.173 1985 Unknown [id number] 2.16.840.1.635636.3.579. 2.173 1985 Unknown [id number] 2.16.840.1.400128.3.579. 2.173 1985 Unknown [id number] 2.16.840.1.043706.3.579. 2.173 1985 Unknown [id number] 2.16.840.1.394534.3.579. 2.173 1985 Unknown [id number] 2.16.840.1.580079.3.579. 2.173 1985 Unknown [id number] 2.16.840.1.127257.3.579. 2.173 1985 Unknown [id number] 2.16.840.1.876098.3.579. 2.173 1985 Unknown [id number] 2.16.840.1.877521.3.579. 2.173 1985 Unknown [id number] 2.16.840.1.998494.3.579. 2.173 1985 Unknown [id number] 2.16.840.1.829819.3.579. 2.173 1985 Unknown [id number] 2.16.840.1.174883.3.579. 2.173 1985 Unknown [id number] 2.16.840.1.350305.3.579. 2.173 1985 Unknown [id number] 2.16.840.1.174545.3.579. 2.173 1985 Unknown [id number] 2.16.840.1.317260.3.579. 2.173 1985 Unknown [id number] 2.16.840.1.706985.3.579. 2.173 1985 Unknown [id number] 2.16.840.1.210035.3.579. 2.173 1985 Unknown [id number] 2.16.840.1.816040.3.579. 2.173 1985 Unknown [id number] 2.16.840.1.946158.3.579. 2.173 1985 Unknown [id number] 2.16.840.1.695915.3.579. 2.173 1985 Unknown [id number] 2.16.840.1.090874.3.579. 2. 1985 Unknown [id number] 2.16.840.1.757945.3.579. 2. 1985 Unknown [id number] 2.16.840.1.118667.3.579. 2.727 1985 Unknown [id number] 2.16.840.1.108326.3.579. 2. 1985 Unknown [id number] 2.16.840.1.091062.3.579. 2.7 1985 Unknown [id number] 2.16.840.1.668119.3.579. 2. 1985 Unknown [id number] 2.16.840.1.855539.3.579. 2.7 09-10-1959 Unknown [id number] 1.2.840.317220.1.13.239. 2.7.3.552985.315 Self-pay Social History Date Type Detail Facility Start: 08-31-2019 End: 03-25-2023 Tobacco smoking status KSIS Never smoker [facility] Start: 08-31-2019 End: 02-19-2025 Alcohol intake Lifetime non-drinker (finding) [facility] Start: 08-29-2019 End: 06-13-2022 History SDOH Alcohol Frequency 1 [facility] Start: 1985 Sex Assigned At Not on file [place] Start: 01-29-2020 End: 12-19-2024 Alcohol intake Current non-drinker of alcohol (finding) [place] Exposure to SARS-CoV-2 (event) Unable to assess [place] Start: 01-29-2020 End: 03-25-2023 Tobacco use and exposure Never used [place] Start: 06-15-2022 End: 12-16-2022 Exposure to SARS-CoV-2 (event) Not sure [place] Start: 04-11-2022 End: 04-06-2025 Alcohol intake Ex-drinker (finding) [facility] Start: 06-13-2022 History SDOH Financial 5 [facility] [employer] Work Phone: Start: 1985 Sex Assigned At Female [facility] Start: 10-11-2024 Tobacco smoking status Never [facility] Start: 08-24-2023 End: 06-09-2024 Sex Assigned At Female [facility] Start: 08-24-2023 End: 06-09-2024 [facility] of Social function [facility] Has the electric, gas, oil, or water company threatened to shut off services in your home in past 12Mo No [employer] How often to you hav e a drink containing alcohol? Never BON [employer] (I/We) worried whether (my/our) food would run out before (I/we) got money to buy more. Never true [employer] Start: 01-25-2022 Gender identity Identifies as female gender (finding) [employer] Start: 01-25-2022 Sexual orientation Heterosexual (tereza wiseman) [employer] Start: 10-20-2012 End: 04-15-2015 Sex Female (finding) [facility] NEGATED: Highlighted rowStart: NINF History of tobacco use Passive smoker [facility] Medical Equipment Procedure Code Equipment Code Equipment Origin al Text Equipment Identifier Dates Allograft Si Int ra Art Fus 11mm - [id number] Start: 08-24-2023 Allograft Si Int ra Art Fus 11mm - [id number] Start: 08-24-2023 Q-Fix Knotless All-Suture [place] 1.8mm W/1 [employer] [id number] Start: 02-23-2025 Q-Fix Knotless All-Suture [place] 1.8mm W/1 [employer] Blue [id number] Start: 02-23-2025 Q-Fix Knotless All-Suture [place] 1.8mm W/1 [employer] Blue [id number] Start: 02-23-2025 Functional Status Date Assessment Result Facility 06-04-2023 Functional Status No [facility] Clinical Notes 02-18-2021 to 04-16-2025 Katty Gonzalez - 04/16/2025 2:00 PM Sergio Reich - 04/13/2025 2:30 PM EDTPatient Madyson Dudley PA-C - 04/10/2025 1:38 PM EDTFKatty fontanez - 04/07/2025 2:30 PM EDT Note Date & Type Note Facility 04-16-2025 History of Present illness Narrative Physical Therapy [facility] Inpatient/Observation/Outpatient Rehabilitation Date: 04/16/2025 Patient Name: Ashlee [...] does not require skilled services due to: Therapist/[employer] Ticket Checker will attempt to see this patient, at our earliest opportunity. Katty Gonzalez Date: 04/16/2025 Cosigned by Sergio Barkley at 04/16/2025 2:09 PM EDT documented in this encounter Analia [facility] 04-14-2025 Note Patient Education ENT Otitis Media, [...] Follow these instructions at home: ??? Take rirh-hvs-ouqelat and prescription medicines only as told by [...] provider. Document Revised: 12/05/2021 Document Reviewed: 12/05/2021 [employer] Patient Education ? 2023 [employer] [facility] 04-13-2025 History of Present illness Narrative [facility] Outpatient Physical Therapy Daily Note Patient: Ashlee Jalloh : 1985 CSN #: [id number] Referring Physician: Rishabh Huang MD Date: 04/13/2025 Diagnosis: M24.259 Treatment Diagnosis: R hip labral repair PT Insurance Information: [facility] medicaid Total # of Visits Approved: 10 Per Physician Order Total # of Visits to Date: 10 No Show: 0 Canceled Appointment: 2 04/21/25 Plan of Care/Recert Due Pre-Treatment Pain: 11/17 Subjective: Pt states her pain is 3/10. [...] pt required further clarification. Post Treatment Pain: 10/20 Plan Plan Frequency: 2 Plan weeks: 4 Goals (Total # of Visits to Date: 10) Short Term Goals Time Frame for Short Term Goals: 2 weeks Short Term Goal 1: Pt will be inititated with HEP. -met Short Term Goal 2: Pt will tolerate 30-40 minutes of ther ex to improve function with ADL's. - met Home Insurance Agent Goals Time Frame for Home Insurance Agent Goals : 6 weeks Home Insurance Agent Goal 1: Pt will independant and compliant with HEP to maintain functional gains made at therapy. - progressing Home Insurance Agent Goal 2: Pt will report 2/10 or less R hip pain on average to facilitate completion of ADL's. - progressing 3/10 average Home Insurance Agent Goal 3: Pt to improve R hip strength to 4+/5 grossly for ease with transfers and prolonged ambulation. - progressing 4-/5 grossly Home Insurance Agent Goal 4: Pt to improve R hip flexion/abd to be equal to L for improved gait mechanics. - progressing hip flexion 90* abd: 23* Shelter Goal 5: Pt to report 70% improvement in symptoms to display increased QOL. - MET 85% Minutes Tracking: Time In: 1430 Time Out: 1511 Minutes: 41 Timed Code Treatment Minutes: 40 Minutes Sergio Alcantar Date: 04/13/2025 Cosigned by Malaika Hernández, PT at 04/13/2025 3:18 PM EDT documented in this encounter [facility] 04-10-2025 Instructions Madyson Villafuerte PA-C - 04/10/2025 1:49 PM EDT Advance activity per PT guidance. Pool per tolerance - NO swim strokes, scissor kick or treading water No impact and explosive/ ballistic activities (running, jumping, forced extremes of motion) No deep (> 90 degrees) squatting Lifting restriction max 30 pounds rarely documented in this encounter [facility] 04-10-2025 Note HNO ID: [id number] Author: MADYSON VILLAFUERTE PA-C Service: ? Author Type: Physician [employer]er Type: Progress Notes Filed: 04/10/2025 13:49 Note Text: POST OP DISTANCE HEALTH VIRTUAL VISIT DOCUMENTATION NOTE I have communicated my name and active licensure. The patient's identity and physical location were verified at the time of this visit. Either the patient or their legal patient representative has been informed of the risks and benefits of -- and alternatives to -- treatment through a remote evaluation and consents to proceed with the evaluation remotely. Distance Health Platform: iSTAR Virtual Visit People present : Madyson Villafuerte [...] weeks with Dr Glen Villafuerte, MS, MELVIN [facility] 04-10-2025 History of Present illness Narrative POST OP DISTANCE HEALTH VIRTUAL VISIT DOCUMENTATION NOTE I have communicated my name and active licensure. The patient's identity and physical location were verified at the time of this visit. Either the patient or their legal patient representative has been informed of the risks and benefits of -- and alternatives to -- treatment through a remote evaluation and consents to proceed with the evaluation remotely. [employer] Platform: iSTAR Virtual Visit People present : Madyson Villafuerte [...] Villafuerte, MS, PAElielC documented in this encounter [facility] 04-07-2025 History of Present illness Narrative Physical Therapy [facility] Inpatient/Observation/Outpatient Rehabilitation Date: 04/07/2025 Patient Name: Ashlee [...] does not require skilled services due to: Therapist/[employer] Ticket Checker will attempt to see this patient, at our earliest opportunity. 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 Ashlee has tried various medications, including gabapentin at a low dose of 100 mg once daily for 5 days, prescribed by Jos Bravo, without relief. She reports being highly [...] expresses interest in it. 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 HPI: Recording using Skytap software for draft documentation of the visit was discussed with the patient/authorized patient representative; all questions welcomed and answered. Patient/authorized patient representative agreed to proceed Ashlee Jalloh is [...] April 06, 2025 documented in this encounter [facility] 04-06-2025 Note HNO ID: [id number] Author: MYNOR GLASER PA-C Service: ? Author Type: Physician [employer] Ticket Checker Type: Progress Notes Filed: 04/13/2025 12:54 Note Text: Pain Management Follow Up Visit Date: April 06, 2025 DEXTER Jalloh is a 40-year-old female with a [...] has not yet (more content not included)... [facility] 04-06-2025 Instructions Mynor Glaser PA-C - 04/06/2025 3:51 PM EDT Follow up with Dr. Rishabh Huang in 3 months or sooner if needed. documented in this encounter [facility] 04-01-2025 History of Present illness Narrative [facility] Outpatient Physical Therapy Daily Note Patient: Ashlee Jalloh : 1985 CSN #: [id number] Referring Physician: Rishabh Huang MD Date: 04/01/2025 Diagnosis: M24.259 Treatment Diagnosis: R hip labral repair PT Insurance Information: [facility] medicaid Total # of Visits Approved: 10 Per Physician Order Total # of Visits to Date: 8 No Show: 0 Canceled Appointment: 2 04/21/25 Plan of Care/Recert Due Pre-Treatment Pain: 1/10 Subjective: Pt with minimal R hip pain [...] pt required further clarification. Post Treatment Pain: 09/19 Plan Plan Frequency: 2 Plan weeks: 4 Goals (Total # of Visits to Date: 8) Short Term Goals Time Frame for Short Term Goals: 2 weeks Short Term Goal 1: Pt will be inititated with HEP. -met Short Term Goal 2: Pt will tolerate 30-40 minutes of ther ex to improve function with ADL's. - met Home Insurance Agent Goals Time Frame for Home Insurance Agent Goals : 6 weeks Home Insurance Agent Goal 1: Pt will independant and compliant with HEP to maintain functional gains made at therapy. - progressing Shelter Goal 2: Pt will report 2/10 or less R hip pain on average to facilitate completion of ADL's. - progressing 3/10 average Home Insurance Agent Goal 3: Pt to improve R hip strength to 4+/5 grossly for ease with transfers and prolonged ambulation. - progressing 4-/5 grossly Shelter Goal 4: Pt to improve R hip flexion/abd to be equal to L for improved gait mechanics. - progressing hip flexion 90* abd: 23* Home Insurance Agent Goal 5: Pt to report 70% improvement in symptoms to display increased QOL. - MET 85% Minutes Tracking: Time In: 1545 Time Out: 1628 Minutes: 43 Timed Code Treatment Minutes: 42 Minutes MALAIKA HERNÁNDEZ PT, DPT Date: 04/01/2025 documented in this encounter [facility] 03-30-2025 History of Present illness Narrative Physical Therapy [facility] Outpatient Physical Therapy Daily Note Patient: Ashlee Jalloh : 1985 CSN #: [id number] Referring Physician: Rishabh Huang MD Date: 03/30/2025 Treatment Diagnosis: R hip labral repair PT Insurance Information: [facility] medicaid Total # of Visits Approved: 10 [...] to improve function with ADL's. - met Home Insurance Agent Goals Time Frame for Home Insurance Agent Goals : 6 weeks Shelter Goal 1: Pt will independant and compliant with HEP to maintain functional gains made at therapy. - progressing Shelter Goal 2: Pt will report 2/10 or less R hip pain on average to facilitate completion of ADL's. - progressing 3/10 average Shelter Goal 3: Pt to improve R hip strength to 4+/5 grossly for ease with transfers and prolonged ambulation. - progressing 4-/5 grossly Shelter Goal 4: Pt to improve R hip flexion/abd to be equal to L for improved gait mechanics. - progressing hip flexion 90* abd: 23* Home Insurance Agent Goal 5: Pt to report 70% improvement in symptoms to display increased QOL. - MET 85% Minutes Tracking: Time In: 1500 Time Out: 1544 Minutes: 44 Timed Code Treatment Minutes: 44 Minutes Corby Lewis PTA Date: 03/30/2025 Cosigned by Malaika Hernández PT at 03/30/2025 4:34 PM EDT documented in this encounter [facility] 03-25-2025 Note HNO ID: [id number] Author: HALEY KING MD Service: ? Author [...] Jocelynn Norman Emg tech Haley King MD [facility] 03-25-2025 History of Present illness Narrative [facility] [...] Haley King MD documented in this encounter [facility] 03-24-2025 History of Present illness Narrative [facility] Outpatient Physical Therapy Daily Note Patient: Ashlee Jalloh : 1985 CSN #: [id number] Referring Physician: Rishabh Huang MD Date: 03/24/2025 Diagnosis: M24.259 Treatment Diagnosis: R hip labral repair PT Insurance Information: [facility] medicaid Total # of Visits Approved: 10 Per Physician Order Total # of Visits to Date: 6 No Show: 0 Canceled Appointment: 2 04/21/25 Plan of Care/Recert Due Pre-Treatment Pain: 03/19 Subjective: Pt reports 6-710 R hip pain today, located near groin. [...] to improve function with ADL's. - met Home Insurance Agent Goals Time Frame for Home Insurance Agent Goals : 6 weeks Shelter Goal 1: Pt will independant and compliant with HEP to maintain functional gains made at therapy. - progressing Home Insurance Agent Goal 2: Pt will report 2/10 or less R hip pain on average to facilitate completion of ADL's. - progressing 3/10 average Home Insurance Agent Goal 3: Pt to improve R hip strength to 4+/5 grossly for ease with transfers and prolonged ambulation. - progressing 4-/5 grossly Home Insurance Agent Goal 4: Pt to improve R hip flexion/abd to be equal to L for improved gait mechanics. - progressing hip flexion 90* abd: 23* Home Insurance Agent Goal 5: Pt to report 70% improvement in symptoms to display increased QOL. - MET 85% Minutes Tracking: Time In: 1300 Time Out: 1345 Minutes: 45 Timed Code Treatment Minutes: 43 Minutes MALAIKA HERNÁNDEZ PT, DPT Date: 03/24/2025 [facility] Outpatient Physical Therapy Date: 03/24/2025 Patient: Ashlee Jalloh : 1985 CSN #: [id number] Referring Physician: Rishabh Huang MD [] Plan [...] to improve function with ADL's. - met Home Insurance Agent Goals Time Frame for Shelter Goals : 6 weeks Home Insurance Agent Goal 1: Pt will independant and compliant with HEP to maintain functional gains made at therapy. - progressing Shelter Goal 2: Pt will report 2/10 or less R hip pain on average to facilitate completion of ADL's. - progressing 3/10 average Home Insurance Agent Goal 3: Pt to improve R hip strength to 4+/5 grossly for ease with transfers and prolonged ambulation. - progressing 4-/5 grossly Shelter Goal 4: Pt to improve R hip flexion/abd to be equal to L for improved gait mechanics. - progressing hip flexion 90* abd: 23* Shelter Goal 5: Pt to report 70% improvement [...] signed by: MALAIKA HERNÁNDEZ PT, DPT Date: 03/24/2025 Date: 03/24/2025 Physician Signature documented in this encounter [facility] 03-19-2025 History of Present illness Narrative Physical Therapy [facility] Inpatient/Observation/Outpatient Rehabilitation Date: 03/19/2025 Patient Name: Ashlee [...] does not require skilled services due to: Therapist/[employer] Ticket Checker will attempt to see this patient, at our earliest opportunity. Katty Gonzalez Date: 03/19/2025 Cosigned by Corby Lewis PTA at 03/19/2025 11:16 AM EDT documented in this encounter [facility] 03-16-2025 History of Present illness Narrative Physical Therapy [facility] Outpatient Physical Therapy Daily Note Patient: Ashlee Jalloh : 1985 CSN #: [id number] Referring Physician: Rishabh Huang MD Date: 03/16/2025 Treatment Diagnosis: R hip labral repair PT [facility] Total # of Visits Approved: 10 Per Physician Order Total # of Visits to Date: 5 No Show: 0 Canceled Appointment: 1 03/24/25 Plan of Care/Recert Due Pre-Treatment Pain: 2 Subjective: Pt reports pain level 2/10 in [...] LE flat on table and L SKTC, [id number] Exercise 8: standing RLE open chain ther [...] was too short and in wrong hand, STEEL BUFFER spent time adjusting to proper height and [...] pt required further clarification. Post Treatment Pain: 10/20 Plan Plan Frequency: 2 Plan weeks: 4 Goals (Total # of Visits to Date: 5) Short Term Goals Time Frame for Short Term Goals: 2 weeks Short Term Goal 1: Pt will be inititated with HEP. -met Short Term Goal 2: Pt will tolerate 30-40 minutes of ther ex to improve function with ADL's. - met Shelter Goals Time Frame for Shelter Goals : 6 weeks Shelter Goal 1: Pt will independant and compliant with HEP to maintain functional gains made at therapy. Shelter Goal 2: Pt will report 2/10 or less R hip pain on average to facilitate completion of ADL's. Home Insurance Agent Goal 3: Pt to improve R hip strength to 4+/5 grossly for ease with transfers and prolonged ambulation. Home Insurance Agent Goal 4: Pt to improve R hip flexion/abd to be equal to L for improved gait mechanics. Home Insurance Agent Goal 5: Pt to report 70% improvement in symptoms to display increased QOL. Minutes Tracking: Time In: 1115 Time Out: 1155 Minutes: 40 Timed Code Treatment Minutes: 40 Minutes Corby Lewis PTA Date: 03/16/2025 Cosigned by Malaika Hernández PT at 03/16/2025 12:28 PM EDT documented in this encounter [facility] 03-11-2025 History of Present illness Narrative [facility] Outpatient Physical Therapy Daily Note Patient: Ashlee Jalloh : 1985 CSN #: [id number] Referring Physician: Rishabh Huang MD Date: 03/11/2025 Diagnosis: M24.259 Treatment Diagnosis: R hip labral repair PT Insurance Information: [facility] medicaid Total # of Visits Approved: 10 [...] LE flat on table and L SKTC, [id number] Exercise 7: Seated LAQ, ankle pumps, HS [...] to improve function with ADL's. - met Shelter Goals Time Frame for Shelter Goals : 6 weeks Home Insurance Agent Goal 1: Pt will independant and compliant with HEP to maintain functional gains made at therapy. Home Insurance Agent Goal 2: Pt will report 2/10 or less R hip pain on average to facilitate completion of ADL's. Home Insurance Agent Goal 3: Pt to improve R hip strength to 4+/5 grossly for ease with transfers and prolonged ambulation. Home Insurance Agent Goal 4: Pt to improve R hip flexion/abd to be equal to L for improved gait mechanics. Home Insurance Agent Goal 5: Pt to report 70% improvement in symptoms to display increased QOL. Minutes Tracking: Time In: 1135 Time Out: 1219 Minutes: 44 Timed Code Treatment Minutes: 41 Minutes Sergio Alcantar Date: 03/11/2025 Cosigned by Malaika Hernández, PT at 03/11/2025 2:08 PM EDT documented in this encounter [facility] 03-10-2025 Instructions Madyson Villafuerte PA-C - 03/10/2025 [...] Follow-up: 4 weeks documented in this encounter [facility] 03-10-2025 Note HNO ID: [id number] Author: MADYSON VILLAFUERTE PA-C Service: ? Author Type: Physician [employer] Ticket Checker Type: Progress Notes Filed: 03/10/2025 16:27 Note Text: Post Op Follow Up Visit Ashlee Jalloh returns 15 days s/p 1. right hip arthroscopy 2. Labral repair CPT 64772 3. Femoroplasty CPT 31293 4. Acetabuloplasty CPT 08028 5. Capsular Closure DOS: 02/23/25 Denies interim [...] if necessary t (more content not included)... [facility] 03-10-2025 History of Present illness Narrative Images from the original note were not included. Post Op Follow Up Visit Ashlee Jalloh returns 15 days s/p 1. right hip arthroscopy 2. Labral repair CPT 42247 3. Femoroplasty CPT 13873 4. Acetabuloplasty CPT 38086 5. Capsular Closure DOS: 02/23/25 Denies interim [...] steri strips applied. documented in this encounter [facility] 03-10-2025 Note HNO ID: [id number] Author: DELIA MCKEON LPN Service: ? Author Type: LICENSED NURSE Type: Progress Notes Filed: 03/10/2025 16:27 Note Text: Three sutures removed for two incisions anterior hip. Pt tolerated. No redness no drainage noted to incisions. New steri strips applied. [facility] 03-09-2025 History of Present illness Narrative Physical Therapy [facility] Inpatient/Observation/Outpatient Rehabilitation Date: 03/09/2025 Patient Name: Ashlee [...] does not require skilled services due to: Therapist/[employer] Ticket Checker will attempt to see this patient, at our earliest opportunity. Katty Gonzalez Date: 03/09/2025 Cosigned by Sergio Barkley at 03/09/2025 3:03 PM EDT documented in this encounter [facility] 03-05-2025 History of Present illness Narrative [facility] Outpatient Physical Therapy Daily Note Patient: Ashlee Jalloh : 1985 CSN #: [id number] Referring Physician: Rishabh Huang MD Date: 03/05/2025 Diagnosis: M24.259 Treatment Diagnosis: R hip labral repair PT Insurance Information: [facility] medicaid Total # of Visits Approved: 10 [...] LE flat on table and L SKTC, [id number] Exercise 7: Seated LAQ, ankle pumps, HS [...] to improve function with ADL's. - met Home Insurance Agent Goals Time Frame for Shelter Goals : 6 weeks Shelter Goal 1: Pt will independant and compliant with HEP to maintain functional gains made at therapy. Shelter Goal 2: Pt will report 2/10 or less R hip pain on average to facilitate completion of ADL's. Shelter Goal 3: Pt to improve R hip strength to 4+/5 grossly for ease with transfers and prolonged ambulation. Home Insurance Agent Goal 4: Pt to improve R hip flexion/abd to be equal to L for improved gait mechanics. Home Insurance Agent Goal 5: Pt to report 70% improvement in symptoms to display increased QOL. Minutes Tracking: Time In: 1049 Time Out: 1129 Minutes: 40 Timed Code Treatment Minutes: 39 Minutes Arturo Virk PT, DPT Date: 03/05/2025 documented in this encounter [facility] 03-04-2025 Note HNO ID: [id number] Author: JOHNATHAN HAAS MD Service: ? Author [...] mg by mouth once daily as needed. Obkjp-8-KGI-EPA-Fish Oil (FISH OIL) 1,000 (120-180) mg cap [...] 3. Multifactorial degener (more content not included)... [facility] 03-04-2025 History of Present illness Narrative REHABILITATION [...] mg by mouth once daily as needed. Liuuv-2-TIN-EPA-Fish Oil (FISH OIL) 1,000 (120-180) mg cap [...] lumbar spine as above in more detail. Resource Agent: PSCB Transcribe Date/Time: Dec 30 2024 10:05A [...] Mechanical back pain Comment: Plan: CONSULT TO [facility] FOR PAIN RECOVERY (CHRONIC PAIN), XR LUMBAR [...] coordination This note was partially generated using [employer] voice recognition system, and there may be some incorrect words, spellings, and punctuation that were not noted in checking the note before saving Johnathan Haas MD documented in this encounter [facility] 03-02-2025 History of Present illness Narrative [facility] Inpatient/Observation/Outpatient Rehabilitation Date: 03/02/2025 Patient Name: Ashlee [...] does not require skilled services due to: Therapist/[employer] Ticket Checker will attempt to see this patient, at our earliest opportunity. Arturo Virk, PT, DPT Date: 03/02/2025 documented in this encounter [facility] 02-26-2025 Telephone encounter Note Spoke with patient on the phone. Discussed the alternatives to using the pink pillow. Patient is doing well post op. Tessie Leggett, AT, ATC [facility] Work Phone: 02-26-2025 Miscellaneous Notes Spoke with [...] get another one documented in this encounter [facility] 02-26-2025 Telephone encounter Note Pnt lvm her dog ate the pink pillow she was given post op and wanting to know how long she is supposed to use it or if its ok that she doesn't. If needed she wants to know if/where/how she can get another one [facility] 02-24-2025 History of Present illness Narrative [facility] Outpatient Physical Therapy Evaluation Date: 02/24/2025 Patient: Ashlee Jalloh : 1985 [facility] #: [id number] Referring Physician: Rishabh Huang MD Medical Diagnosis: M24.259 Treatment Diagnosis: R hip labral repair PT Insurance Information: [facility] medicaid Total # of Visits Approved: 10 Total # of Visits to Date: 1 No Show: 0 Canceled Appointment: 0 [x] This underwriter acknowledges review of patient history form [...] ther ex to improve function with ADL's. Home Insurance Agent Goals Time Frame for Home Insurance Agent Goals : 6 weeks Shelter Goal 1: Pt will independant and compliant with HEP to maintain functional gains made at therapy. Home Insurance Agent Goal 2: Pt will report 2/10 or less R hip pain on average to facilitate completion of ADL's. Shelter Goal 3: Pt to improve R hip strength to 4+/5 grossly for ease with transfers and prolonged ambulation. Home Insurance Agent Goal 4: Pt to improve R hip flexion/abd to be equal to L for improved gait mechanics. Home Insurance Agent Goal 5: Pt to report 70% improvement in symptoms to display increased QOL. Minutes Tracking: Time In: 1115 Time Out: 1205 Minutes: 50 Timed Code Treatment Minutes: 48 Minutes MALAIKA HERNÁNDEZ PT, DPT 02/24/2025 [facility] Outpatient Physical Therapy Date: 02/24/2025 Patient: Ashlee Jalloh : 1985 CSN #: [id number] Referring Physician: Rishabh Huang MD [x] Plan [...] ther ex to improve function with ADL's. Home Insurance Agent Goals Time Frame for Shelter Goals : 6 weeks Home Insurance Agent Goal 1: Pt will independant and compliant with HEP to maintain functional gains made at therapy. Shelter Goal 2: Pt will report 2/10 or less R hip pain on average to facilitate completion of ADL's. Home Insurance Agent Goal 3: Pt to improve R hip strength to 4+/5 grossly for ease with transfers and prolonged ambulation. Shelter Goal 4: Pt to improve R hip flexion/abd to be equal to L for improved gait mechanics. Home Insurance Agent Goal 5: Pt to report 70% improvement [...] 02/24/2025 Physician Signature documented in this encounter [facility] 02-23-2025 Note HNO ID: [id number] Author: NIESHA CHAUDHRY APRN.AIRCRAFT STRUCTURE MECHANIC Service: ? Author Type: Nurse Housecleaner Type: Anesthesia Procedure Notes Filed: 02/23/2025 07:54 Note Text: ANESTHESIOLOGY PROCEDURE NOTE Airway General Information Procedure Start Time/Medication Administration: 02/23/2025 7:37 AM Procedure End Time: 02/23/2025 7:41 AM Patient location during procedure: OR Timeout Performed Pre-procedure: timeout performed Consent Obtained: Yes Patient identity confirmed: arm band and patient Staffing Performed by: AIRCRAFT STRUCTURE MECHANIC Indications and Patient Condition Indications for airway [...] 1 Airway not difficult SIGNATURE: Niesha Chaudhry APRN.CRNA PATIENT NAME: Ashlee Jalloh DATE: February 23, 2025 TIME: 7:53 AM CSN: [id number] [facility] 02-23-2025 Note HNO ID: [id number] Author: JAS YIP III, MD Service: Anesthesiology [...] February 23, 2025 TIME: 7:32 AM CSN: [id number] [facility] 02-20-2025 Note HNO ID: [id number] Author: MADYSON VILLAFUERTE PA-C Service: ? Author Type: Physician [employer] Ticket Checker Type: Progress Notes Filed: 02/20/2025 07:51 Note Text: I have personally reviewed Noemi Francis ATC note. I agree with the findings as documented. Other additions or changes: none Office note and Imaging reviewed HDAI reviewed Consent initiated Madyson Villafuerte PA-C February 20, 2025 7:50 AM [facility] 02-20-2025 History of Present illness Narrative I [...] Date: 02-23-25 Last office visit: 01-07-25 Insurance: [employer] [place] Medicaid Home: [address] [place] [id number] BMI: There is no height or weight on file to calculate BMI. Work status/ occupation: Unknown BWC: No PACC: [facility] Brace fitting: Yes - will call [facility] for brace fitting appointment Crutches: Yes - Knows how to use: Yes Physical therapy: Outpatient PT starting POD 1 XR: 01-05-25 MRI: 11-14-24 - right hip labral tear Block: Yes CPM: No Pre op instructions sent via Navidog. Medications: pregabalin (LYRICA) 50 mg capsule Take 1 capsule by mouth three times a day for 90 days. Vveiq-9-HES-EPA-Fish Oil (FISH OIL) 1,000 (120-180) mg cap [...] - No Noemi Francis, MEd, AT, ATC documented in this encounter [facility] 02-19-2025 History of Present illness Narrative Reason [...] nursing note reviewed. Exam conducted with a storage solutions architect present. Vitals: Estimated body mass index is [...] Tori Farmer PA-C documented in this encounter [facility] 02-16-2025 History and physical note Images from [...] fevers. Neuro: No history of TIA's, stroke, MOLD REPAIR TECHNICIAN tumor, impaired sensorium, hemiplegia, paraplegia or quadraplegia. No neurological symptoms or problems. Respiratory: No history of current cough or dyspnea, or pneumonia in the past 6 weeks. No history of respiratory/pulmonary symptoms or problems. Cardiovascular: No history of HTN requiring medication, no history of angina, CHF, UT, cardiac surgery or stents. Denies rest pain, [...] by mouth once daily as needed. Yes Kgyol-5-XYO-EPA-Fish Oil (FISH OIL) 1,000 (120-180) mg cap [...] voices comprehension and compliance. Consent Recording using Sk[employer] software for draft documentation of the visit was discussed with the patient/authorized patient representative; all questions welcomed and answered. Patient/authorized patient representative agreed to proceed SIGNATURE: Blessing Horvath PA-C PATIENT NAME: Ashlee Jalloh DATE: 02/16/2025 TIME: 8:13 AM PAGER/CONTACT #: [facility] 02-16-2025 History and physical note Images from [...] Immunization Dates Current Care Gaps Covid-19 Vaccine (2023-) Overdue since 05/11/2024 02/25/2021 Imm Admin: COVID-19 original vaccine, age 12+ yr, monovalent ([employer] - [facility]) 02/04/2021 Imm Admin: COVID-19 original vaccine, age 12+ yr, monovalent ([employer] - [facility]) REVIEW OF SYSTEMS: PAIN ASSESSMENT: General: No weight loss, malaise or fevers. Neuro: No history of TIA's, stroke, MOLD REPAIR TECHNICIAN tumor, impaired sensorium, hemiplegia, paraplegia or quadraplegia. No neurological symptoms or problems. Respiratory: No history of current cough or dyspnea, or pneumonia in the past 6 weeks. No history of respiratory/pulmonary symptoms or problems. Cardiovascular: No history of HTN requiring medication, no history of angina, CHF, UT, cardiac surgery or stents. Denies rest pain, [...] by mouth once daily as needed. Yes Myxat-4-EPL-EPA-Fish Oil (FISH OIL) 1,000 (120-180) mg cap [...] voices comprehension and compliance. Consent Recording using Sk[employer] software for draft documentation of the visit was discussed with the patient/authorized patient representative; all questions welcomed and answered. Patient/authorized patient representative agreed to proceed SIGNATURE: Blessing Horvath PA-C PATIENT NAME: Ashlee Jalloh DATE: 02/16/2025 TIME: 8:13 AM PAGER/CONTACT #: documented in this encounter [facility] 02-13-2025 Instructions Blessing Horavth PA-C - 02/13/2025 8:38 AM EDT [facility]est[facility] PATIENT PREOPERATIVE INSTRUCTIONS Deniz Encarnacion MD has scheduled you for your procedure at this surgery center: [facility]: [phone] --[address] [address]. Please read below carefully for your personalized [...] office. If you are currently using a xvlp-wat-clxf injectable or oral medication for diabetes or [...] Procedures: - YOU MUST HAVE A RESPONSIBLE FUR TANNER TAKE YOU HOME. A ADMINISTRATION INTERN OR CORRESPONDENCE CLERK CANNOT BE MADE A RESPONSIBLE FUR TANNER. - We recommend that a responsible person stays with you overnight to take care of you. - You cannot stay in a hotel alone after outpatient surgery. You will not be permitted to have your surgery, if you do not have someone to take care of you. If you already have an Advance Directive, please fax a copy to [phone] or email to for it to be [...] Blessing Horvath PA-C documented in this encounter [facility] 02-10-2025 History of Present illness Narrative [facility] Outpatient Rehabilitation No-Show Note Date: 02/11/2025 Patient Name: Ashlee Jalloh : 1985 Plan of Care/Recert ends [x] Pt no showed for scheduled appointment and was contacted regarding compliancy. We will monitor attendance for adherence to attendance policy and contact patient/physician as appropriate. Sergio Barkley STEEL BUFFER Date: 02/11/2025 Cosigned by Malaika Hernández, PT at 02/11/2025 6:57 AM EDT documented in this encounter [facility] 02-06-2025 History of Present illness Narrative [facility] Outpatient Rehabilitation No-Show Note Date: 02/06/2025 Patient Name: Ashlee Jalloh : 1985 02/16/25 Plan of Care/Recert ends [x] Pt no showed for scheduled appointment and was contacted regarding compliancy. [x] As a reminder, STEEL BUFFER called pt Call result went to voicemail, voicemail full, unable to leave message. Next visit is 02/10/25 at 4PM We will monitor attendance for adherence to attendance policy and contact patient/physician as appropriate. Diann Tao, STEEL BUFFER Date: 02/06/2025 Cosigned by Malaika Hernández PT at 02/06/2025 4:19 PM EDT documented in this encounter [facility] 02-04-2025 History of Present illness Narrative [facility] Outpatient Physical Therapy Daily Note Patient: Ashlee Jalloh : 1985 CSN #: [id number] Referring Physician: Rishabh Huang MD Date: 02/04/2025 Diagnosis: M79.7 fibromyalfia, Z98.1 s/p lumbar fusion Treatment Diagnosis: fibromyalgia, LE weakness, decreased ROM PT Insurance Information: [facility] medicaid Total # of Visits Approved: 10 Per Physician Order Total # of Visits to Date: 3 No Show: 0 Canceled Appointment: 0 02/16/25 Plan of Care/Recert Due Pre-Treatment Pain: 6/10 Subjective: Pt reports 6/10 pain today with radiating intermittent pain. Pt states she was more tired after last visit. Pt states she will be having a R hip surgery on 02/23 for a repair. Exercises: Exercise 1: * aquatic therapy per tolerance at [facility]. Stepcase land therapy: code [id number] (LTR, march supine, BKFO, TA activation) Exercise [...] ex to improve function with ADL's. -met Shelter Goals Time Frame for Home Insurance Agent Goals : 6 weeks Shelter Goal 1: Pt will independant and compliant with HEP to maintain functional gains made at therapy. Shelter Goal 2: Pt will report 3/10 or less low back pain on average to facilitate completion of ADL's. Shelter Goal 3: Pt to improve B LE strength to 4/5 grossly for ease with work tasks. Home Insurance Agent Goal 4: Pt to improve lumbar flexion/ext by 10* or more and sidebend by 10* for ease with bending/twisting. Shelter Goal 5: Pt to improve Oswestry score [...] PM EDT documented in this encounter [facility] 02-03-2025 Instructions Noemi Francis AT - 02/03/2025 4:29 PM EDT Images from the original note were not included. ORTHOPAEDIC SURGERY - SPORTS MEDICINE MD Madyson Posadas PA-C Andrew Mindeck, ATC Amanda Wilson, Unloader Operator [facility], [address] [place] [address] SURGERY INFORMATION- HIP ARTHROSCOPY You have been scheduled or are considering scheduling OUTPATIENT surgery with Dr. Deniz Encarnacion. Ashlee Jalloh SURGERY DATE: 02-23-25 PROCEDURE: Right hip arthroscopy PRE OPERATIVE APPOINTMENTS: - Pre-operative testing ([facility]) within 30 days of your surgery - Once surgery is scheduled, [facility] will contact you to set up this appointment. Please call [phone] with any questions. - Hip brace fitting - 3-4 weeks prior to surgery contact [phone] or [phone] to schedule hip brace fitting with Pa/ Janie mulligan. - Crutches - Make sure you have crutches that fit you. You can get a set at [employer], [employer], [employer], [employer], [employer] etc. Prescription can be provided. If you show up without crutches, there is a chance your surgery gets cancelled. Video and written instruction on crutch use https://www.[employer].com.[employer]/videos /yji-jfjk-grfydvcp-correctly-par xzvq-hcxakp-pghnfnr https://my.[facility].org/[facility]/articles/38353-kxm-fk-tbq- crutches POST OPERATIVE APPOINTMENTS: -PHYSICAL THERAPY APPOINTMENT - you need to schedule this appointment for the day after surgery - [phone] to schedule - call office if having difficulty securing appointment - Post op follow up appointments surgery: 2 weeks in office with Madyson ROMAN; 6 weeks virtual (in person if preferred) with Madyson ROMAN; 12 weeks in person with Dr. Encarnacion. These appointments will be scheduled for you. SURGERY LOCATION: [facility] [place] - 2nd floor [address] [place] [address] MINIMIZE RISK SURGICAL SITE INFECTION Notify Dr. Encarnacion's office if any of the following apply: after hours [phone] and ask for pager [phone] - If you are prescribed an ANTIBIOTIC [...] financial/insurance questions, please contact our patient financial analyst accountant: [phone] POST OP RECOVERY: (Subject to change day [...] week . Please contact the office at [phone] if interested Pain Control: combination of prescription [...] insurance Please contact the office if interested [phone] Driving: none for Minimum 2 weeks Return [...] TRANSPORTATION - YOU MUST HAVE A RESPONSIBLE FUR TANNER TAKE YOU HOME. A ADMINISTRATION INTERN OR CORRESPONDENCE CLERK CANNOT BE MADE A RESPONSIBLE FUR TANNER. - We recommend that a responsible person [...] upcoming surgery. You can find this at [employer]. Alternative: wash with antibacterial soap - Dial [...] label for full product information and precautions. http://www.[facility].us/antisept ics/sabrmma-kota-mgkbmqhva/hibic lens/#confirm Antibiotic: You will receive a dose [...] all paperwork to the office via fax [phone]. Paperwork is typically completed within a week [...] - NO jewelry, body piercings, makeup, nail austrian, hairpins or contacts are to be worn [...] surgery For questions, please call the office: [phone] documented in this encounter [facility] 02-03-2025 Note HNO ID: [id number] Author: NOEMI FRANCIS AT Service: ? Author Type: Tube Test Technician Type: Progress Notes Filed: 02/20/2025 07:51 Note Text: Spoke with patient on the phone regarding scheduling surgery for their right hip with Dr. Encarnacion. Procedure: Right hip arthroscopy - Labral repair, Arthroscopic cam impingement femoroplasty, and Arthroscopic pincer impingement acetabuloplasty. Location: [facility] Date: 02-23-25 Last office visit: 01-07-25 Insurance: [employer] Medicaid Home: [address] [place] [address] BMI: There is no height or weight [...] CPM: No Pre op instructions sent via [employer]. Medications: pregabalin (LYRICA) 50 mg capsule Take 1 capsule by mouth three times a day for 90 days. Utqro-2-CPF-EPA-Fish Oil (FISH OIL) 1,000 (120-180) mg cap [...] - No Noemi Francis, MEd, AT, ATC [facility] 01-28-2025 History of Present illness Narrative Reason [...] smear 03/23/2023 Complex ovarian cyst 03/23/2023 Depression ([facility]) 03/23/2023 Kidney stone 03/23/2023 Low grade squamous [...] History: Diagnosis Date Complex ovarian cyst Depression ([facility]) Encounter for Papanicolaou smear of vagina following [...] nursing note reviewed. Exam conducted with a storage solutions architect present. Vitals: Estimated body mass index is [...] Tommie Mccann DO documented in this encounter [facility] 01-26-2025 Telephone encounter Note Spoke with patient [...] questions were answered. Tessie Leggett, AT, ATC [facility] Work Phone: 01-26-2025 Miscellaneous Notes Spoke with [...] 4. Follow-up: PRN. documented in this encounter [facility] 01-26-2025 Telephone encounter Note Attempted to contact patient via phone. No answer. Left her a detailed voicemail. Office number provided for her to call back when she is able. Tessie Leggett, AT, ATC [facility] 01-21-2025 History of Present illness Narrative Physical Therapy [facility] Outpatient Physical Therapy Daily Note Patient: Ashlee Jalloh : 1985 CSN #: [id number] Referring Physician: Rishabh Huang MD Date: 01/21/2025 Treatment Diagnosis: fibromyalgia, LE weakness, decreased ROM PT Insurance Information: [facility] medicaid Total # of Visits Approved: 10 [...] spinal cord stimulator, has not heard from bit sharpener about when that appointment will be. Exercises: Exercise 1: * aquatic therapy per tolerance at [facility]. Stepcase land therapy: code [id number] (LTR, march supine, BKFO, TA activation) Exercise [...] ex to improve function with ADL's. -progressing Home Insurance Agent Goals Time Frame for Shelter Goals : 6 weeks Shelter Goal 1: Pt will independant and compliant with HEP to maintain functional gains made at therapy. Shelter Goal 2: Pt will report 3/10 or less low back pain on average to facilitate completion of ADL's. Home Insurance Agent Goal 3: Pt to improve B LE strength to 4/5 grossly for ease with work tasks. Shelter Goal 4: Pt to improve lumbar flexion/ext by 10* or more and sidebend by 10* for ease with bending/twisting. Shelter Goal 5: Pt to improve Oswestry score [...] Todd PTA Date: 01/21/2025 Cosigned by Malaika Hernández PT at 01/21/2025 5:27 PM EDT documented in this encounter [facility] 01-19-2025 History of Present illness Narrative [facility] Outpatient Physical Therapy Evaluation Date: 01/19/2025 Patient: Ashlee Jalloh : 1985 CSN #: [id number] Referring Physician: Rishabh Huang MD Medical Diagnosis: M79.7 fibromyalfia, Z98.1 s/p lumbar fusion Treatment Diagnosis: fibromyalgia, LE weakness, decreased ROM PT Insurance Information: [facility] medicaid Total # of Visits Approved: 10 Total # of Visits to Date: 1 No Show: 0 Canceled Appointment: 0 [x] This underwriter acknowledges review of patient history form [...] ther ex to improve function with ADL's. Shelter Goals Time Frame for Shelter Goals : 6 weeks Shelter Goal 1: Pt will independant and compliant with HEP to maintain functional gains made at therapy. Home Insurance Agent Goal 2: Pt will report 3/10 or less low back pain on average to facilitate completion of ADL's. Home Insurance Agent Goal 3: Pt to improve B LE strength to 4/5 grossly for ease with work tasks. Home Insurance Agent Goal 4: Pt to improve lumbar flexion/ext by 10* or more and sidebend by 10* for ease with bending/twisting. Home Insurance Agent Goal 5: Pt to improve Oswestry score from 48% disability to 30% or less or better to display progression in symptoms. Minutes Tracking: Time In: 1530 Time Out: 1615 Minutes: 45 Timed Code Treatment Minutes: 43 Minutes MALAIKA HERNÁNDEZ PT, DPT 01/19/2025 [facility] Outpatient Physical Therapy Date: 01/19/2025 Patient: Ashlee Jalloh : 1985 CSN #: [id number] Referring Physician: Rishabh Huang MD [x] Plan [...] ther ex to improve function with ADL's. Shelter Goals Time Frame for Shelter Goals : 6 weeks Home Insurance Agent Goal 1: Pt will independant and compliant with HEP to maintain functional gains made at therapy. Shelter Goal 2: Pt will report 3/10 or less low back pain on average to facilitate completion of ADL's. Home Insurance Agent Goal 3: Pt to improve B LE strength to 4/5 grossly for ease with work tasks. Home Insurance Agent Goal 4: Pt to improve lumbar flexion/ext by 10* or more and sidebend by 10* for ease with bending/twisting. Shelter Goal 5: Pt to improve Oswestry score [...] 01/19/2025 Physician Signature documented in this encounter [facility] 01-16-2025 Telephone encounter Note Images in epic [...] management until eventual arthroplasty. 4. Follow-up: PRN. [facility] 01-07-2025 Note HNO ID: [id number] Author: DENIZ ENCARNACION MD Service: ? Author [...] assessment and treatment recommendations. 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 No past surgical history on file. Current Outpatient Medications Medication Sig Dispense Refill pregabalin (LYRICA) 50 mg capsule Take 1 capsule by mouth three times a day for 90 days. 90 capsule 2 Rxmzf-7-EBZ-EPA-Fish Oil (FISH OIL) 1,000 (120-180) mg cap [...] Sports Medicine/Orthopaedic Surgery documented in this encounter [facility] 01-07-2025 Note HNO ID: [id number] Author: VALERIA ZARATE MD Service: ? 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 No past surgical history on file. Current Outpatient Medications Medication Sig Dispense Refill pregabalin (LYRICA) 50 mg capsule Take 1 capsule by mouth three times a day for 90 days. 90 capsule 2 Htfsq-6-SVJ-EPA-Fish Oil (FISH OIL) 1,000 (120-180) mg cap [...] PRN. Valeria Zarate MD Sports Medicine/Orthopaedic Surgery [facility] 01-05-2025 Instructions Uriel Guzmán MD - 01/05/2025 3:21 PM EDT Ha Encarnacion documented in this encounter [facility] 01-05-2025 Note HNO ID: [id number] Author: URIEL GUZMÁN MD Service: ? Author Type: Physician Type: Progress Notes Filed: 01/05/2025 15:26 Note Text: CONSULT ORTHOPAEDIC: HIP PRIMARY CARE PHYSICIAN: No primary care provider on file. REFERRING PROVIDER: Johnathan Haas [facility] [address] [facility] [address] ASSESSMENT AND PLAN Impression: Right hip and [...] Substance Use Topi (more content not included)... [facility] 01-05-2025 History of Present illness Narrative Images from the original note were not included. CONSULT ORTHOPAEDIC: HIP PRIMARY CARE PHYSICIAN: No primary care provider on file. REFERRING PROVIDER: Johnathan Haas [address] [facility] [address] ASSESSMENT & PLAN Impression: Right hip and [...] three times a day for 90 days. Zpknb-5-SXH-EPA-Fish Oil (FISH OIL) 1,000 (120-180) mg cap [...] TIME: 3:07 PM documented in this encounter [facility] 01-05-2025 Instructions Rishabh Huang MD - 01/05/2025 [...] This prescription has been sent to your [facility] pharmacy in [place]. Please note that Lyrica is a controlled medication in [place]. - Follow up with my PA, Yessica, [...] questions or concerns. documented in this encounter [facility] 01-05-2025 History of Present illness Narrative Radiology [...] PATIENT PRESENTS WITH AN IMPLANTABLE OR ATTACHED MANAGER SOCIAL SERVICES: No RADIOLOGY DEPARTMENT: General X-ray: Exam(s) Completed: Pelvis X-Ray: Pelvis with Hip Right PERIPHERAL IV DATA: Not applicable SIGNED BY: NICO Krueger) January 05, 2025 1:53 PM documented in this encounter [facility] 01-05-2025 Note HNO ID: [id number] Author: NALDO RAMIREZ RT (R) Service: Radiology Author Type: Technologist Type: Progress [...] PATIENT PRESENTS WITH AN IMPLANTABLE OR ATTACHED MANAGER SOCIAL SERVICES: No RADIOLOGY DEPARTMENT: General X-ray: Exam(s) Completed: Pelvis X-Ray: Pelvis with Hip Right PERIPHERAL IV DATA: Not applicable SIGNED BY: NICO Krueger) January 05, 2025 1:53 PM [facility] 01-05-2025 History of Present illness Narrative Images from the original note were not included. [facility] Pain Management Department Consultation Date: January 05, 2025 - Referring physician: Johnathan Haas [address] [facility] [address] Ashlee Jalloh is seen in consultation requested [...] family and friends Overall Impression from Dr. Nath: Ashlee Jalloh is a 39 y.o. female [...] medication tolerance Consults/Referrals: -cognitive behavior therapy with [facility] care -Recommended that she reach out [...] her spine is bulged, and her previous caustic cresylate shift superintendent indicated that she might need multiple surgeries in the future, depending on her body's response. Ashlee has tried various medications, including gabapentin at a low dose of 100 mg once daily for 5 days, prescribed by Jos Bravo, without relief. She reports being highly [...] expresses interest in it. She lives in [place], about an hour [place] half away, [...] tape, tears skin and welts Current Medications: Jhasa-6-EKD-EPA-Fish Oil (FISH OIL) 1,000 (120-180) mg cap [...] Marital Status: Unknown Medical Decision Making The [facility] EMR was reviewed during the visit including: [...] 4 - Moderate documented in this encounter [facility] 01-05-2025 Note HNO ID: [id number] Author: RISHABH HUANG MD Service: ? Author Type: Physician Type: Progress Notes Filed: 01/05/2025 15:00 Note Text: [facility] Pain Management Department Consultation Date: January 05, 2025 - Referring physician: Johnathan Haas [address] [facility] [address] Ashlee Jalloh is seen in consultation requested [...] family and friends Overall Impression from Dr. Nath: Ashlee Jalloh is a 39 y.o. female [...] is on naproxen (more content not included)... [facility] 12-19-2024 Telephone encounter Note letter in [employer] Please fax [facility] Work Phone: 12-19-2024 Miscellaneous Notes letter in [employer] Please fax Ashlee is calling Johnathan Haas MD today asking for a work noted from when she was seen on 12/15 to be faxed over to her work. F: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 Alcohol and Drug Abuse Patient Records regulations: The Federal rules restrict any use of the information to criminally investigate or prosecute any alcohol or drug abuse patient.[facility] the event this information is protected by the Federal Confidentiality of Alcohol and Drug Abuse Patient Records regulations: The Federal rules restrict any use of the information to criminally investigate or prosecute any alcohol or drug abuse patient.[facility] Center[facility] the event this information is protected by the Federal Confidentiality of Alcohol and Drug Abuse Patient Records regulations: The Federal rules restrict any use of the information to criminally investigate or prosecute any alcohol or drug abuse patient.[facility] Center[facility] the event this information is protected by the Federal Confidentiality of Alcohol and Drug Abuse Patient Records regulations: The Federal rules restrict any use of the information to criminally investigate or prosecute any alcohol or drug abuse patient.[facility] Center[facility] the event this information is protected by the Federal Confidentiality of Alcohol and Drug Abuse Patient Records regulations: The Federal rules restrict any use of the information to criminally investigate or prosecute any alcohol or drug abuse patient.[facility] CenterIn the event this information is protected by the Federal Confidentiality of Alcohol and Drug Abuse Patient Records regulations: The Federal rules restrict any use of the information to criminally investigate or prosecute any alcohol or drug abuse patient.[facility] Center[facility] the event this information is protected by the Federal Confidentiality of Alcohol and Drug Abuse Patient Records regulations: The Federal rules restrict any use of the information to criminally investigate or prosecute any alcohol or drug abuse patient.[facility] CenterIn the event this information is protected by the Federal Confidentiality of Alcohol and Drug Abuse Patient Records regulations: The Federal rules restrict any use of the information to criminally investigate or prosecute any alcohol or drug abuse patient.[facility] Center[facility] the event this information is protected by the Federal Confidentiality of Alcohol and Drug Abuse Patient Records regulations: The Federal rules restrict any use of the information to criminally investigate or prosecute any alcohol or drug abuse patient.[facility] Center[facility] the event this information is protected by the Federal Confidentiality of Alcohol and Drug Abuse Patient Records regulations: The Federal rules restrict any use of the information to criminally investigate or prosecute any alcohol or drug abuse patient.[facility] CenterIn the event this information is protected by the Federal Confidentiality of Alcohol and Drug Abuse Patient Records regulations: The Federal rules restrict any use of the information to criminally investigate or prosecute any alcohol or drug abuse patient.[facility] CenterIn the event this information is protected by the Federal Confidentiality of Alcohol and Drug Abuse Patient Records regulations: The Federal rules restrict any use of the information to criminally investigate or prosecute any alcohol or drug abuse patient.[facility] CenterIn the event this information is protected by the Federal Confidentiality of Alcohol and Drug Abuse Patient Records regulations: The Federal rules restrict any use of the information to criminally investigate or prosecute any alcohol or drug abuse patient.[facility] CenterIn the event this information is protected by the Federal Confidentiality of Alcohol and Drug Abuse Patient Records regulations: The Federal rules restrict any use of the information to criminally investigate or prosecute any alcohol or drug abuse patient.[facility] CenterIn the event this information is protected by the Federal Confidentiality of Alcohol and Drug Abuse Patient Records regulations: The Federal rules restrict any use of the information to criminally investigate or prosecute any alcohol or drug abuse patient.[facility] CenterIn the event this information is protected by the Federal Confidentiality of Alcohol and Drug Abuse Patient Records regulations: The Federal rules restrict any use of the information to criminally investigate or prosecute any alcohol or drug abuse patient.[facility] CenterIn the event this information is protected by the Federal Confidentiality of Alcohol and Drug Abuse Patient Records regulations: The Federal rules restrict any use of the information to criminally investigate or prosecute any alcohol or drug abuse patient.[facility] CenterIn the event this information is protected by the Federal Confidentiality of Alcohol and Drug Abuse Patient Records regulations: The Federal rules restrict any use of the information to criminally investigate or prosecute any alcohol or drug abuse patient.[facility] CenterIn the event this information is protected by the Federal Confidentiality of Alcohol and Drug Abuse Patient Records regulations: The Federal rules restrict any use of the information to criminally investigate or prosecute any alcohol or drug abuse patient.[facility] FOR RECORDS PERTAINING TO PATIENTS WHO ARE [...] BE BASED ON THE PRIMARY CLINICAL RECORDS. [facility]. provides no warranty or guarantee of the accuracy or completeness of information in this document.
[2025-05-14 04:07] LABS: AFP, Serum, Tumor Marker <1.8 ng/mL (0.0-6.4); CEA 1.3 ng/mL (0.0-4.7)
== END 2025-05-13 08:43 | disposition home or self-care (01) ==
LOC: LAB 08:43
PROVIDERS: PCP Nurse Practitioner; Visit Provider Obstetrics & Gynecology
DX: N83.299 Other ovarian cyst, unspecified side (principal)
CPT/HCPCS: 36415; 82105; 82378; 83615; 84702; 86304

== ENCOUNTER 2025-07-30 15:46 | Outpatient (OUT) | payer MEDICAID, SELFPAY ==
--- OUTSIDE RECORDS SUMMARY | 2025-01-20 09:30 | XMS_ITS ---
Author Organization [facility] Address [address] [place] [address] Care Team Providers Care Adoption Agent Name Role Phone PCP, NO Primary Care Provider Unavailabl e ysabelJackyo-Inregis, Inalyciag Unavailable Self, Referral Unavailable Unavailable REASON FOR VISIT LUMBAR MRI Social History Sex Assigned At : Social History Observation Description Sex Assigned At Female Encounters Encounter Location Date Provider Diagnosis [facility] [address] [place] [id number] 01/20/2025 [facility] Lumbar radiculopathy M54.16 Assessments Encounter Date Diagnosis (ICD Code) Assessment Notes Treatment Notes Treatment Clinical Notes Section Notes 01/20/2025 Lumbar radiculopathy (ICD-10 - M 54.16) Plan Of Treatment Next Appt Details Follow Up: same day, Reason: Progress Notes * ASHLEE JALLOH MDOB: 5 (40 yo F)Acc No.[id number]:01/20/2025 MRI [facility]/ Patient: Lilliana ASHLEE KUMARI :?AMINATA Tam JROB:1985???Age:40 Y???Sex:FemaleDate:01/20/2025Phone:[phone]:[address] [place], [place]-[address]Pcp:NO PCP Subjective: * Chief Complaints: * 1 . LUMBAR MRI. * Medical History: Objective: * Vitals: Assessment: * Assessment: 1.?Lumbar radiculopathy - M54.16 (Primary)??? Plan: * Treatment: * Procedure Codes: 7 2148 MRI Lumbar Spine w/o Dye * Follow Up: Forms: * Images: * Electronic signature of Yvon Segovia MD on 07/30/2025 at 03:50 PM EST Sign off status: Pending * Provider: Vinicio Steiner MD Date: 0 01/20/2025 Generated for Printing/Faxing/eTransmitting on:?07/30/2025 03:50 PM EST
--- OUTSIDE RECORDS SUMMARY | 2025-06-02 09:30 | XMS_ITS ---
Author Organization [facility] Address [address] [place] [address] Care Team Providers Care Background Investigator Name Role Phone PCP, NO Primary Care Provider Unavailabl e xxUdo-Inyang, Inyang Unavailable [phone] Self, Referral Unavailable Unavailable Lynnette Torres Unavailable [phone] REASON FOR VISIT 8 week f/u Social History Sex Assigned At : Social History Observation Description Sex Assigned At Female Encounters Encounter Location Date Provider Diagnosis [facility] [address] [place] [address] 06/02/2025 Lynnette Torres Plan Of Treatment No Information Progress Notes * ASHLEE JALLOH MDOB: 5 (40 yo F)Acc No.[id number]:06/02/2025 Patient:?ASHLEE JALLOH :?Lynnette Deluna APRN, CNPDOB:1985 ???Age:40 Y???Sex:FemaleDate:06/02/2025Phone:[phone]:[address] [place] [id number]:NO PCP Subjective: * Chief Complaints: * 1 . 8 week f/u. * Medical History: Objective: * Vitals: Assessment: Plan: * Treatment: Forms: * Images: * Electronic signature of Lynnette Torres CNP on 07/30/2025 at 03:51 PM EST Sign off status: Pending * Provider: Donald Deluna APRN, CNP Date: 0 06/02/2025 Generated for Printing/Faxing/eTransmitting on:?07/30/2025 03:51 PM EST
--- OUTSIDE RECORDS SUMMARY | 2025-07-15 23:59 | XMS_ITS | Continuity of Care Document ---
Author Organization [facility] Address [address] [place] [address] Care Team Providers Care Merchandising Stock Associate Name Role Phone Sussy Lopez [id number] 07/15/25 - 07/15/25 [facility] [address] [place] [address]- Encounter Diagnosis BMI 34.0-34.9,adult(Discharge Diagnosis) - 07/15/25 Class 1 obesity due to excess calories in adult(Discharge Diagnosis) - 07/15/25 Encounter for weight management(Discharge Diagnosis) - 07/15/25 Recurrent severe major depressive disorder co-occurrent with anxiety(Discharge Diagnosis) - 07/15/25 Discharge Disposition: Home (Routine DC) Attending Physician: Sussy Jones Encounter Type: Clinic Allergies, Adverse Reactions, Alerts SubstanceCriticalitySeverityReactionReaction KmnqbkcdBptdwkJzkfih1Xoih criticalitySevereNauseaActiveSilicone (simethicone) obsoleteHigh criticality SevereHivesActive 1pt states when taking it becamse dizzy and nauseated was pregant had to be rushed back to surgery. Treatment Plan Future Appointments Appointment Date:08/12/2025 02:00:00 PM Scheduled Provider:Du Pollard DO Location:[facility] Appointment Type: Open Immunizations Given and Recorded VaccineDateStatusRefusal Reasoninfluenza virus vaccine, yqdepkszjvd23/28/22 Recordedinfluenza virus vaccine, yuwjzgbcoec55/23/20Recordedinfluenza virus vaccine, twarrazzipl55/4/48JumpezgoDPMY-KkB-9 (COVID-19) mRNA BNT-162b2 vax1 02/25/2190ZezjphldZHWY-XuR-4 (COVID-19) mRNA BNT-162b2 vax202/04/21Recorded 1Result Comment: 2023-05-18: TPVAL 2Result Comment: 2023-05-18: TPVAL Medications Adipex-P 37.5 mg Tab 37.5 mg = 1 tab(s), Oral, Daily, # 30 tab(s), Refills(s) 0, Pharmacy: [facility] [id number], 161, cm, 01/16/25 14:25:00 EDT, Height/Length Dosing, 86.3, kg, 01/16/25 14:25:00 EDT, Weight Dosing Start Date: 02/18/25 Status: Ordered Medication Dispense Status: Completed Quantity: 30.0 Unit: tab(s) Total Allowed Fills: 1 Fills Dispensed: 0 Indications: Persons encountering health services in other specified circumstances; Carpal tunnel syndrome, right upper limb; naproxen 500 mg Tab 500 mg = 1 tab(s), Oral, BID, Refills(s) 0 Start Date: 05/18/23 Status: Ordered Medication Dispense Status: Completed Total Allowed Fills: 1 Fills Dispensed: 0 Nexium 20 mg Cap-DR 20 mg = 1 cap(s), Oral, Daily, Refills(s) 0 Start Date: 09/25/23 Status: Ordered Medication Dispense Status: Completed Total Allowed Fills: 1 Fills Dispensed: 0 phentermine 37.5 mg Tab 37.5 mg = 1 tab(s), Oral, Daily, # 30 tab(s), Refills(s) 0, Pharmacy: [facility] [id number], 161, cm, 04/30/25 13:28:00 EDT, Height/Length Dosing, 88.8, kg, 04/30/25 13:28:00 EDT, Weight Dosing Start Date: 04/30/25 Status: Ordered Medication Dispense Status: Completed Quantity: 30.0 Unit: tab(s) Total Allowed Fills: 1 Fills Dispensed: 0 Indications: Persons encountering health services in other specified circumstances; Body mass index[BMI] 34.0-34.9, adult; Other specified health status; phentermine 37.5 mg Tab 37.5 mg = 1 tab(s), Oral, Daily, # 30 tab(s), Refills(s) 0, Pharmacy: [facility] [id number], 161, cm, 07/15/25 13:55:00 EST, Height/Length Dosing, 88.9, kg, 07/15/25 13:55:00 EST, Weight Dosing Start Date: 07/15/25 Status: Ordered Medication Dispense Status: Completed Quantity: 30.0 Unit: tab(s) Total Allowed Fills: 1 Fills Dispensed: 0 Indications: Body mass index [BMI] 34.0-34.9, adult; Obesity, class 1; Persons encountering health services in other specified circumstances; Major depressive disorder, recurrent severe without psychotic features; pregabalin 50 mg Cap 75 mg, Oral, TID, Refills(s) 0 Start Date: 01/16/25 Status: Ordered Medication Dispense Status: Completed Total Allowed Fills: 1 Fills Dispensed: 0 Problem List ConditionConfirmationCourseEffective DatesStatusHealth StatusInformantAbnormal rapid eye movement sleepConfirmedActiveAllergiesConfirmedActiveAnemiaConfirmed ActiveWitnessed episode of apneaConfirmedActiveAngiolipoma of right kidney ConfirmedActiveBlisters of multiple sitesConfirmedActiveRight carpal tunnel syndromeConfirmedActiveCold feetConfirmedActiveDaytime somnolenceConfirmedActive Fluid level behind tympanic membrane of both earsConfirmedActiveFlank pain ConfirmedActiveHip painConfirmedActiveHypercholesteremiaConfirmedActiveBrain fog ConfirmedActiveLow back painConfirmedActiveLow blood pressureConfirmedActive Migraine headacheConfirmedActiveMyringitis of left earConfirmedActiveNeck pain ConfirmedActiveNonsmokerConfirmedActiveNumbness of both lower extremities ConfirmedActiveObstructive apneaConfirmedActivePain in fingerConfirmedActiveLeg pain, bilateralConfirmedActiveTingling of right upper extremityConfirmedActive Encounter for weight managementConfirmedActivePre-op examConfirmedActive Screening for thyroid disorderConfirmedActiveNasal septal perforationConfirmed ActivePoor circulation of extremityConfirmedActivePosttraumatic stress disorder ConfirmedActivePTSD (post-traumatic stress disorder)ConfirmedActiveRecurrent severe major depressive disorder co-occurrent with anxietyConfirmedActiveSensory disorderConfirmedActiveLoud snoringConfirmedActiveVertigoConfirmedActiveWeight gainConfirmedActive Procedures ProcedureDateRelated DiagnosisBody OjhoAufegzoxuu5789Dyugarftoaxcrihko ovaries from bowel, and cleaned mlalgzhew5553Cmimgilvxjhrs2542XgqsppeguVwslhgab delivery 2017CompletedCesarean deliveryCompletedHysterectomy partialCompletedpartial fusion of SI jointCompleted Social History Social History TypeResponseSmoking StatusNever (less than 100 in lifetime); Smoking Cessation Yes entered on: 07/15/25Birth SexFemaleSex RepresentationFemale (finding) Patient Care team information Care Team Personnel Name: Charline Calderon Position: [employer]: Claims Followup Rep (Jignesh) Member Role: [employer]: Claims Followup Rep (Artist Scientific) Name: Sussy Jones Position: [facility] Ambulatory - Primary Care - [facility] Member Role: Primary Care Physician Address: [address] [place] [phone]- Telecom: Care Team Related Persons Name: KB AGOSTO Name: KB AGOSTO Name: KB AGOSTO Insurance Providers Guarantor name: Health Plan Information #: 1 Payer: Medicaid Payer Identifier: [id number] Member Number: [id number] Group Number: [id number] Subscriber Identifier: [id number] Relationship to Subscriber: self Coverage Type: MEDICAID Coverage Verification Date: 25 Telecom: [id number] Address: [facility] [address] [place] [address]
--- OUTSIDE RECORDS SUMMARY | 2025-07-22 09:00 | XMS_ITS | Encounter Summary ---
Author Organization [facility] Address [address] [place] [id number] Care Team Providers Care Wooden Box Maker Name Role Phone Unavailable Primary Care Provider Unavailabl e Source Comments In the event this information is protected by the Federal Confidentiality of Alcohol and Drug AbusePatient Records regulations: The Federal rules restrict any use of the information to criminally investigate or prosecute any alcohol or drug abuse patient.[facility] Reason for Referral * Consult, Test, Treat (Routine) - Pending ReviewSpecialtyDiagnoses / Procedures Referred By ContactReferred To [facility] Diagnoses Chronic bilateral low back pain with bilateral sciatica Sacroiliitis S/P fusion of sacroiliac joint Chronic pain syndrome Procedures OFFICE/OUTPATIENT [facility] 60 MINUTES Favio Carranza MD 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 PSR: Use NIQ decision tree to schedule as appropriate. * Diagnostic Procedure Only (Routine) - ClosedSpecialtyDiagnoses / Procedures Referred By ContactReferred To [facility] Diagnoses Chronic bilateral low back pain with bilateral sciatica Sacroiliitis S/P fusion of sacroiliac joint Chronic pain syndrome Procedures XR LUMBAR MOTION 4V AP/LAT/ FLEX/EXT RADEX SPINE LUMBOSACRAL MINIMUM 4 VIEWS Favio Carranza MD [address] [phone] Phone: tel: fax: XR IM[facility] [place] [address] Referral IDStatusReasonStart DateExpiration DateVisits RequestedVisits [id number] Auto-Generated Referral Reason for Visit * ReasonCommentsNew Patient Encounter Details DateTypeDepartmentCare Team (Latest Contact Info)Wsorgvbjpyj20/12/2025 9:00 AM ESTOffice Visit [facility] [address] [place] [address] Favio Carranza MD [address] [phone] Chronic bilateral low back pain with bilateral sciatica (Primary Dx); Sacroiliitis; S/P fusion of sacroiliac joint; Chronic pain syndrome Social History Tobacco UseTypesPacks/DayYears UsedDateSmoking Tobacco: NeverSmokeless Tobacco: Never Tobacco Cessation:Counseling Given: Not Answered Alcohol UseStandard Drinks/WeekCommentsNot Currently0 (1 standard drink = 0.6 oz pure alcohol)PHQ-2AnswerDate RecordedPHQ-2 pmoza593rea Deprivation IndexAnswerDate RecordedNational Score (1-100), lower number is lower risk78 12/15/2024State Score (1-10), lower number is lower hmmg44112/15/2024Data from: https://www.neighborhoodatlas.medicine.[facility].edu/. Last address used for wrpqoftxncy[address]12/15/2024CommentsNoSex and Gender InformationValue Date RecordedSex Assigned at XruouUzeszv91/01/2025 12:54 PM ESTLegal SexFemale 10/11/2024 12:53 PM ESTGender XiqqagueWkwrnp17/01/2025 12:54 PM ESTSexual CnbxaefwcecKlhljvba55/02/2025 8:56 AM EDTdocumented as of this encounter Last Filed Vital Signs Vital SignReadingTime TakenCommentsBlood Qqctglxi364/7607/22/2025 8:49 AM EST Tpopz827407/22/2025 8:49 AM ESTTemperature--Respiratory Vrgb126909/21/2024 8:49 AM ESTOxygen Abcgeubfnl924%07/22/2025 8:49 AM ESTInhaled Oxygen Concentration-- Wncixs69.5 kg (195 lb)07/22/2025 8:49 AM OLNUxxixk398.9 cm (5' 3.75 )07/22/2025 8:49 AM ESTBody Mass Index33.7307/22/2025 8:49 AM ESTdocumented in this encounter Progress Notes * Favio Carranza MD - 07/22/2025 8:55 AM EST Images from the original note were not included. SPINE SURGERY NEW PATIENT PCP: No primary care provider on file. REFERRING PROVIDER: No referring provider defined for this encounter. SUBJECTIVE Kizzy Mercer is a 40-year-old female with chronic back pain, fibromyalgia, and carpal tunnel syndrome presenting for evaluation of persistent and worsening back pain. She is accompanied by a manager track who provides additional history. Kizzy reports chronic back pain that began after her first backsurgery in 2020. She describes the pain as constant and sharp, with episodes of excruciating pain radiating to her legs and feet, accompanied by numbness. She reports that the pain is aggravated by bending and sneezing while lying down. She also reports difficulty sleeping due to discomfort in any position. She underwent a microdiscectomy for a herniated disc, which initially provided relief. However, serafin-herniated the disc about 1.5 months later and subsequently underwent a fusion surgery in 11/2021.Since the fusion, her pain has worsened in both severity and quality. She describes episodes at work where bending causes a sudden loss of sensation in her back, followed by a sharp pain shooting up her spine. She also reports excruciating pain in her lower back when sneezing while lying down. She also reports bilateral SI joint pain. She underwent a bilateral SI joint fusion surgery approximately 2 years ago, but imaging has not confirmed a successful fusion. She had 2-3 sets of SI joint injections prior to the surgery, which provided some relief. She is interested in trying SI joint injections again. She has a history of fibromyalgia, but she does not believe it significantly contributes to her pain. She reports that her pain is consistent every day, worsening with activity and improving with rest. She also reports difficulty sleeping due to discomfort in any position. She has a history of carpal tunnel syndrome and is interested in exploring non- surgical treatment options, such as Botox injections, which have been helpful for her father. She recently had an EMG ofher arms for carpal tunnel syndrome. She has a history of medication intolerance, including an episode of syncope after taking Flexeril.She is interested in exploring non-pharmacological treatment options for her pain. She also has a history of mental health disorders and is interested in finding a therapist. - CT: L4-5 fusion with solid arthrodesis; hardware intact without loosening or malposition; no screw-related neural impingement. - CT: Bilateral sacroiliac joints with pseudoarthrosis (no evidence of fusion) following prior attempted SI joint fusion. - Imaging: Congenital L5-S1 fusion. - Imaging: No evidence of ankylosing spondylitis. ROS Constitutional: (+) insomnia Musculoskeletal: (+) chronic low back pain, (+) hip pain, (+) knee pain, (+) foot pain Neurological: (+) lower extremity numbness, (+) balance difficulty, (+) dizziness, (+) episodes of blackout Psychiatric: (+) tearfulness OBJECTIVE Blood pressure 112/76, pulse 71, resp. rate 18, height 161.9 cm (5' 3.75 ), weight 88.5 kg (195 lb), SpO2 100%. - Neurological: - Gait: Difficulty with tandem walking. - Strength: - Lower Extremities: - Knee Extension: Left: 5/5, Right: 5/5 - Ankle Dorsiflexion: Left: 5/5, Right: 5/5 - Ankle Plantarflexion: Left: 5/5, Right: 5/5 IMAGING/RESULTS Imaging: - CT Lumbar Spine: Solid arthrodesis at L4-5; hardware intact without loosening or malposition; no hardware impinging nerve roots. - CT Pelvis/Sacroiliac Joints: No SI joint fusion; implants positioned in the sacrum more than within the SI joints; bilateral SI joint pseudoarthrosis. - Imaging review: No evidence of ankylosing spondylitis. 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 Tests & Prior Procedures: - Lumbar fusion (L4-5): Solid arthrodesis; hardware intact without loosening or malposition. - Attempted bilateral SI joint fusion: Pseudoarthrosis (not fused). ASSESSMENT PLAN 1. Chronic bilateral low back pain with bilateral sciatica (M54.42) 2. Sacroiliitis (M46.1) 3. S/P fusion of sacroiliac joint (Z98.1) - Chronic low back pain with bilateral sciatica following lumbar fusion for recurrent herniated disc; pain is constant, sharp, and worsened since surgery. - CT scan reviewed: solid arthrodesis at L4-5, no evidence of hardware loosening or nerve impingement; congenital fusion at L5-S1; bilateral SI joint pseudoarthrosis. - Order upright lumbar spine X-rays (flexion/extension) to assess for instability or stenosis abovefusion. - Order MRI for further evaluation. - Order bilateral SI joint injections to assess for SI-mediated pain. - Discussed spinal cord stimulator trial if imaging and injections do not provide relief. - Educated patient on chronic pain management and rationale for current diagnostic and therapeutic approach. - Follow-up in 3 months after completion of imaging and injections, or sooner if SI joint injections provide no relief. 4. Chronic pain syndrome (G89.4) - Refer to pain psychology for support in managing chronic pain. - Get upright spinal X-rays today, including bending forward and backward views, as ordered. - Arrange for your back MRI images to be re-uploaded (re-burned) so I can review them. - Schedule and complete bilateral sacroiliac (SI) joint injections here to see if they relieve yourpain. - After your SI joint injections, call the office to let us know how you???re feeling: - If you still have significant pain, we???ll refer you for a spinal cord stimulator trial. - If you get substantial relief, we???ll focus on other non-surgical strategies. - Meet with a pain psychologist on our chronic pain team; a referral has been placed. - Schedule a follow-up visit in about 3 months to review your imaging results, discuss injection outcomes, and plan next steps. - Watch for your work note in [employer], [employer] (or via email) and share it with your employer as needed. I had a long discussion with the patient in the office today, they had many appropriate questions, all were answered to their satisfaction, no guarantees were offer nor implied in our discussion. Favio Carranza MD Assessment/Plan (M54.42, M54.41, G89.29) Chronic bilateral low back pain with bilateral sciatica (primary encounterdiagnosis) (M46.1) Sacroiliitis (Z98.1) S/P fusion of sacroiliac joint (G89.4) Chronic pain syndrome Long standing hx of low back pain. Hx of microdisectomy in 2020, lumbar fusion in 2021 and non instrumented SIJ fusion in 2022. No relief with any surgery. CT scan shows solid fusion. MRI not available but the report does not mention any significant stenosis and or pathology to explain her low backpain. I would recommend continuing work with pain management and conservative treatment for her lowback pain. Subjective Kizzy Mercer is a 40 year old female who presents for new spine surgery evaluation. Long standinghx of chronic pain. Hx of low back pain that started in her childhood but became more severe in time. Underwent a lumbar microdiskectomy in 2020 with no relief. She described worsening pain and underwent a fusion in 2021 with no relief. Then underwent SIJ fusion (non-instrumented) in 2022 with no relief. She states the pain she has now is the same as it was prior to surgery. Intermittent pain in the legs but her low back pain is the most bothersome. Intermittent numbness in the feet. Recent hipsurgery for groin pain. No relief of her low back pain. Questionnaire Generated HPI Possible Spine-Related Symptoms: Low back pain Symptom Onset: Since childhood but worse after surgery Symptom Location(s): Low back Symptom Laterality: Bilateral Aggravating Factors: Activity, walking Alleviating Factors: None Non-Surgical Therapies Tried: Injections, medications (muscle relaxant, Lyrica, Mobic) Prior Spine Surgery(s): Lumbar surgeries: 2020, 2021, 2022 Arthroscopic labral tear repair of the right hip, femoroplasty, acetabuloplasty, and capsular closure on 02/23/[address] Carroll Image annotated by patient with symptom distribution: No annotated images are attached to the encounter. IFavio MD , have reviewed the above patient-reported information and have reviewed it with the patient. Major Risk Factors Notable surgical risk factors: Smoking status: Never BMI:33.73 kg/m2. Patient's BMI would meet criteria for obesity given BMI >= 30 Obesity Moderate Risk BMI: 33.73 kg/m2 High: BMI > 40 Moderate: BMI 30-40 Normal: BMI < 30 Diabetes normal High: A1C > 8 Moderate: A1C 7-8 Normal: A1C < 7 Hx of DVT / PE normal High: dx of DVT / PE Normal: no dx of DVT / PE Smoking normal Last Status: Never High: Current smoker Normal: Non smoker Narcotics Use Moderate Risk High:NarxCare >=300 Moderate: 100-299 Normal: 0-99 Depression High Risk High: PHQ-9 >14 Moderate: PHQ-9 5-14 Normal: PHQ-9 < 5 Data from [facility] Epic on prior therapies: Last PT session: No date on file in last 365 days Last Epidural Steroid Injection: No epidural injection on file for last 365 days Last Spine Surgery: No history of prior spine surgery in search of available [facility] records No past medical history on file. PAST SURGICAL HISTORY Procedure Laterality Date ARTHRD ANT INTERBODY MIN DSC LUMBAR L4-5 SECTION HX x 2 PAST SURGICAL HISTORY OF Bilateral SI joint fusion S PROBE PERC LUMBAR DISCECTOMY L4-5 Current Outpatient Medications on File Prior to Visit Medication Sig pregabalin (LYRICA) 75 mg capsule Take 1 capsule by mouth three times a day for 90 days. acetaminophen (ACETAMINOPHEN EXTRA STRENGTH) 500 mg tablet Take 1 tablet every 6 to 8 hours as needed for pain Phentermine HCl 37.5 mg tablet Take 37.5 mg by mouth. esomeprazole (NEXIUM) 20 mg capsule Take 20 mg by mouth once daily. BASE, PCCA VANPEN crea Apply 1 application to affected area once daily. ubrogepant (UBRELVY) 100 mg tablet Take 100 mg by mouth once daily as needed. meloxicam (MOBIC) 15 mg tablet Take 1 tablet by mouth once daily. docusate sodium (COLACE) 100 mg capsule Take 1 capsule by mouth two times a day. methocarbamol (ROBAXIN) 500 mg tablet Take 1 tablet every 6 to 8 hours as needed for pain or musclespasms (Patient not taking: Reported on 05/19/2025) ondansetron orally disintegrating (ZOFRAN ODT) 4 mg disintegrating tablet Take 1 tablet by mouth every 8 hours as needed for nausea/vomiting. No current facility-administered medications on file prior to visit. Objective PHYSICAL EXAM BP 112/76 Pulse 71 Resp 18 Ht 161.9 cm (5' 3.75 ) Wt 88.5 kg (195 lb) SpO2 100% BMI 33.73 kg/m?? GENERAL APPEARANCE: Well nourished, well developed, and no apparent distress. NEURO PSYCH: Patient oriented to person, place, and time. Mood pleasant. Benign affect. MUSCULOSKELETAL VISUAL INSPECTION CERVICAL: WNL THORACIC: WNL LUMBAR: WNL PALPATION: SPINOUS PROCESS: Pain. PARASPINALS: Pain. MUSCLE BULK: Normal and symmetrical in the upper & lower extremities. MUSCLE TONE: Normal. MOTOR: 5/5 in all muscle groups. SENSORY: Normal sensory exam, Stocking GAIT: Antalgic. REFLEXES: +2 to bilateral U/L extremities. LONG TRACT SIGNS: No Hoffmans. STRAIGHT LEG TEST: Ipsilateral: Negative. Contralateral: Negative. NEURO TESTS: None DATA REVIEW [facility] records independently reviewed Favio Carranza MD documented in this encounter Plan of Treatment DateTypeDepartmentCare Team (Latest Contact Info)Cqwrukbzlpa81/06/2026 1:45 PM ESTOffice Visit [facility] [address] [place] [address] Sulaiman Carroll MD [address] [place] [address] Rt hip f/u DOS 02/23/2502 11:00 AM ESTOffice Visit Pain Management [address] [place], [place] [phone] Margaret Glaser PA-C [address] [place] [address] 3 month nawbpq4311/11/2025 3:00 PM ESTOffice Visit [facility] [address] [phone] Favio Carranza MD [address] [place] [address] 3 month follow up12/09/2025 9:00 AM EDTOffice Visit Pain Recovery [address] [phone] Tere Haynes PSYD [address] [place] [address] Chronic bilateral low back pain with bilateral sciatica [M54.42, M54.41, G89.29]; Sacroiliitis [M46.1]; S/P fusion of sacroiliac joint [Z98.1]; Chronic pain syndrome [G89.4]NameTypePriorityAssociated DiagnosesOrder ScheduleSPINE INTERVENTION PROCEDUREProceduresRoutine Chronic bilateral low back pain with bilateral sciatica Sacroiliitis S/P fusion of sacroiliac joint Chronic pain syndrome Ordered: 07/22/2025NameTypePriorityAssociated DiagnosesOrder ScheduleCONSULT TO [facility] (CHRONIC PAIN)ReferralRoutine Chronic bilateral low back pain with bilateral sciatica Sacroiliitis S/P fusion of sacroiliac joint Chronic pain syndrome 1 Occurrences starting 07/22/2025 until 07/22/2026documented as of this encounter Results * XR LUMBAR MOTION 4V AP/LAT/ FLEX/EXT (07/22/2025 10:29 AM EST)Anatomical RegionLateralityModalityL-spineOtherSpecimen (Source)Anatomical Location / LateralityCollection Method / VolumeCollection TimeReceived Time07/22/2025 10:29 AM EST Impressions 07/22/2025 11:09 AM EST IMPRESSION: Instrumented fusion at L4-5 without hardware-related complication. Anatomic variation at the lumbosacral junction as described. Contact Manager: EDGAR ?? Transcribe Date/Time: Jul 22 2025 10:47A Dictated by : SUELLEN BERGERON MD This examination was interpreted and the report reviewed and electronically signed by: CONY MILES MD on Jul 22 2025 11:07AM ??EST Narrative 07/22/2025 11:09 AM EST * * *Final Report* * * DATE OF EXAM: Jul 22 2025 10:29AM ?? JIX ?? [id number] ??- ??XR LUMBAR 4V AP/LAT/ FLEX/EXT ??/ PROCEDURE REASON: multiple diagnoses ? 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 ??Still with lumbar, buttock pain radiating into both legs with weakness, numbness, tingling. TECHNIQUE: ??XR LUMBAR 4V AP/LAT/ FLEX/EXT ?? Laterality: Not applicable ?? Number of different views (projections): ??4 ?? M: ??XB_1 COMPARISON: ??CT lumbar spine 12/26/2024 COUNTING REFERENCE: ??Lumbosacral junction. ??For the purposes of this report, ??L4-5 is considered the level of the iliac crest and assume there are 5 lumbar-type vertebrae. ??Anatomic variant: Transitional anatomy of the L5 vertebral body which demonstrates a broad left transverse process which is assimilated with the adjacent sacral ala. Small hypoplastic riblets are noted at T12. RESULT: Posterior instrumented fusion and interbody fusion noted at L4-5. ?? Posterior decompression also noted at this level. Hardware appears intact without periprosthetic lucency. ??No acute fracture or compression deformity. Narrowing of the disc space at L5-S1, possibly developmental in nature. The facet joints are relatively preserved. No abnormal translation on flexion or extension views. 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 Still with lumbar, buttock pain radiating into both legs with weakness, numbness, tingling. TECHNIQUE: XR LUMBAR 4V AP/LAT/ FLEX/EXT Laterality: Not applicable Number of different views (projections): 4 M: XB_1 COMPARISON: CT lumbar spine 12/26/2024 COUNTING REFERENCE: Lumbosacral junction. For the purposes of this report, L4-5 is considered the level of the iliac crest and assume there are 5 lumbar-type vertebrae. Anatomic variant: Transitional anatomy of the L5 vertebral body which demonstrates a broad left transverse process which is assimilated with the adjacent sacral ala. Small hypoplastic riblets are noted at T12. RESULT: Posterior instrumented fusion and interbody fusion noted at L4-5. Posterior decompression also noted at this level. Hardware appears intact without periprosthetic lucency. No acute fracture or compression deformity. Narrowing of the disc space at L5-S1, possibly developmental in nature. The facet joints are relatively preserved. No abnormal translation on flexion or extension views. IMPRESSION IMPRESSION: Instrumented fusion at L4-5 without hardware-related complication. Anatomic variation at the lumbosacral junction as described. Contact Manager: EDGAR Transcribe Date/Time: Jul 22 2025 10:47A Dictated by : SUELLEN BERGERON MD This examination was interpreted and the report reviewed and electronically signed by: CONY MILES MD on Jul 22 2025 11:07AM EST Authorizing ProviderResult TypeResult StatusDominic Pelle MDRAD-PAMAFinal Result documented in this encounter Visit Diagnoses Diagnosis Chronic bilateral low back pain with bilateral sciatica- Primary Sacroiliitis Sacroiliitis, not elsewhere classified S/P fusion of sacroiliac joint Chronic pain syndrome Chronic bilateral low back pain with bilateral sciatica Sacroiliitis Sacroiliitis, not elsewhere classified S/P fusion of sacroiliac joint Chronic pain syndrome documented in this encounter
--- OUTSIDE RECORDS SUMMARY | 2025-07-22 10:19 | XMS_ITS | Encounter Summary ---
Author Organization [facility] Address [address] [place] [id number] Care Team Providers Care Cushion Padder Name Role Phone Unavailable Primary Care Provider Unavailabl e Source Comments In the event this information is protected by the Federal Confidentiality of Alcohol and Drug AbusePatient Records regulations: The Federal rules restrict any use of the information to criminally investigate or prosecute any alcohol or drug abuse patient.[facility] Reason for Referral * Diagnostic Procedure Only (Routine) - ClosedSpecialtyDiagnoses / Procedures Referred By ContactReferred To ContactXR IMAGING Diagnoses Chronic bilateral low back pain with bilateral sciatica Sacroiliitis S/P fusion of sacroiliac joint Chronic pain syndrome Procedures XR LUMBAR MOTION 4V AP/LAT/ FLEX/EXT RADEX SPINE LUMBOSACRAL MINIMUM 4 VIEWS Favio Carranza MD [address] [place] [address] Phone: tel: fax: [facility] [place] [address] Referral IDStatusReasonStart DateExpiration DateVisits RequestedVisits [id number] Auto-Generated Referral Reason for Visit * ReasonCommentsRadio Main J1 * Diagnostic Procedure Only (Routine) - ClosedSpecialtyDiagnoses / Procedures Referred By ContactReferred To ContactXR IMAGING Diagnoses Chronic bilateral low back pain with bilateral sciatica Sacroiliitis S/P fusion of sacroiliac joint Chronic pain syndrome Procedures XR LUMBAR MOTION 4V AP/LAT/ FLEX/EXT RADEX SPINE LUMBOSACRAL MINIMUM 4 VIEWS Favio Carranza MD [address] [place] [address] Phone: tel: fax: [facility] [place] [address] Referral IDStatusReasonStart DateExpiration DateVisits RequestedVisits [id number] Auto-Generated Referral Encounter Details DateTypeDepartmentCare Team (Latest Contact Info)Ygwhdmimzoh10/12/2025 10:19 AM EST - 07/22/2025 11:59 PM ESTHospital Encounter Radiology [address] [place] [phone] Chronic bilateral low back pain with bilateral sciatica [M54.42, M54.41, G89.29] Discharge Disposition: Home Social History Tobacco UseTypesPacks/DayYears UsedDateSmoking Tobacco: NeverSmokeless Tobacco: NeverAlcohol UseStandard Drinks/WeekCommentsNot Currently0 (1 standard drink = 0.6 oz pure alcohol)PHQ-2AnswerDate RecordedPHQ-2 [id number] Deprivation IndexAnswerDate RecordedNational Score (1-100), lower number is lower silw405312/15/2024State Score (1-10), lower number is lower tcjq92612/15/2024 Data from: https://www.neighborhoodatlas.medicine.[facility].edu/. Last address used for qhnyuelffxz[address]/15/2024CommentsNoSex and Gender Information ValueDate RecordedSex Assigned at IchuiUuedss44/01/2025 12:54 PM ESTLegal Sex Zxeuzl9710/11/2024 12:53 PM ESTGender DsdoemjsQphczd18/01/2025 12:54 PM ESTSexual BivrvclfpvfQzajgfta10/02/2025 8:56 AM EDTdocumented as of this encounter Medications at Time of Discharge MedicationSigDispense QuantityRefillsLast FilledStart DateEnd Date pregabalin (LYRICA) 75 mg capsule Indications:Fibromyalgia,Back pain with history of spinal surgery,Status post lumbar spinal fusionTake 1 capsule by mouth three times a day for 90 days. 90 capsule 502/09/2025 meloxicam (MOBIC) 15 mg tablet Take 1 tablet by mouth once daily. 30 tablet acetaminophen (ACETAMINOPHEN EXTRA STRENGTH) 500 mg tablet Take 1 tablet every 6 to 8 hours as needed for pain 40 tablet 02/23/2025 docusate sodium (COLACE) 100 mg capsule Indications:constipationTake 1 capsule by mouth two times a day. 60 capsule 02/23/2025 methocarbamol (ROBAXIN) 500 mg tablet Take 1 tablet every 6 to 8 hours as needed for pain or muscle spasms 40 tablet 02/23/2025 ondansetron orally disintegrating (ZOFRAN ODT) 4 mg disintegrating tablet Take 1 tablet by mouth every 8 hours as needed for nausea/vomiting. 9 tablet 02/23/2025 Phentermine HCl 37.5 mg tablet Take 37.5 mg by mouth. esomeprazole (NEXIUM) 20 mg capsule Take 20 mg by mouth once daily.09/25/2023 BASE, PCCA VANPEN crea Apply 1 application to affected area once daily.11/14/2024 ubrogepant (UBRELVY) 100 mg tablet Take 100 mg by mouth once daily as needed.2documented as of this encounter Progress Notes * Lynnette Comer, RT(R) - 07/22/2025 10:30 AM EST Radiology Service Progress Note PATIENT NAME: Kizzy Mercer DATE OF SERVICE: July 22, 2025 TIME: 10:49 AM PATIENT IDENTITY VERIFICATION COMPLETED USING TWO (2) IDENTIFIERS: Name and Date of confirmedby patient verbally. FALL SCREENING: Has the patient had 2 falls in the last year or 1 fall with injury or currently using an Ambulatory Assistive Device (Walker, Cane, Wheelchair, Crutches, etc.)? No PATIENT GENDER DATA: Assigned female at . status: : No status: NO. PATIENT RELEVANT IMPLANT DATA REVIEWED: Not Applicable PATIENT PRESENTS WITH AN IMPLANTABLE OR ATTACHED TISSUE INSERTER: No RADIOLOGY DEPARTMENT: General X-ray: Exam(s) Completed: Spine X-Ray(s): Lumbar AP / LAT / L5-S1 / FLEX-EXT PERIPHERAL IV DATA: Not applicable SIGNED BY: RT Judy(R) July 22, 2025 10:49 AM documented in this encounter Plan of Treatment DateTypeDepartmentCare Team (Latest Contact Info)Stcdeupberr84/06/2026 1:45 PM ESTOffice Visit Sports [facility] [address] [place] [address] Sulaiman Carroll MD [address] [place] [address] Rt hip f/u DOS 02/23/2502 11:00 AM ESTOffice Visit Pain Management [address] [place] [address] Margaret Glaser PA-C [address] [place] [address] 3 month vohjva8211/11/2025 3:00 PM ESTOffice Visit [facility] [address] [place] [address] Favio Carranza MD [address] [place] [address] 3 month follow up12/09/2025 9:00 AM EDTOffice Visit Pain Recovery [address] [place] [address] Tere Haynes PSYD [address] [place] [address] Chronic bilateral low back pain with bilateral sciatica [M54.42, M54.41, G89.29]; Sacroiliitis [M46.1]; S/P fusion of sacroiliac joint [Z98.1]; Chronic pain syndrome [G89.4]documented as of this encounter Procedures Procedure NamePriorityDate/TimeAssociated DiagnosisCommentsXR LUMBAR MOTION 4V AP/LAT/ FLEX/QTJJgfheqj07/12/2025 10:29 AM EST Chronic bilateral low back pain with bilateral sciatica Sacroiliitis S/P fusion of sacroiliac joint Chronic pain syndrome documented in this encounter Results * XR LUMBAR MOTION 4V AP/LAT/ FLEX/EXT (07/22/2025 10:29 AM EST)Anatomical RegionLateralityModalityL-spineOtherSpecimen (Source)Anatomical Location / LateralityCollection Method / VolumeCollection TimeReceived Time07/22/2025 10:29 AM EST Impressions 07/22/2025 11:09 AM EST IMPRESSION: Instrumented fusion at L4-5 without hardware-related complication. Anatomic variation at the lumbosacral junction as described. Conservation Officer: EDGAR ?? Transcribe Date/Time: Jul 22 2025 [...] flexion or extension views. Procedure Note Provider, [facility] - 07/22/2025 * * *Final Report* * [...] variation at the lumbosacral junction as described. Conservation Officer: EDGAR Transcribe Date/Time: Jul 22 2025 10:47A Dictated by : SUELLEN BERGERON MD This examination was interpreted and the report reviewed and electronically signed by: CONY MILES MD on Jul 22 2025 11:07AM EST Authorizing ProviderResult TypeResult StatusDommatthew Carranza MDRAD-PAMAFinal Result documented in this encounter Visit Diagnoses Diagnosis Chronic bilateral low back pain with bilateral sciatica Sacroiliitis Sacroiliitis, not elsewhere classified S/P fusion of sacroiliac joint Chronic pain syndrome documented in this encounter
--- OUTSIDE RECORDS SUMMARY | 2025-07-30 15:50 | XMS_ITS | Clinical Summary ---
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 OjzjszyzHypzs06/12/2023 Other Reaction(s): Unknown Wound Dressing EkyvnbbhNiucQgs47/08/2023 Cloth tape, tears skin and welts Medications MedicationSigDispense QuantityRefillsLast FilledStart DateEnd DateStatus esomeprazole (NexIUM) [address] capsule 1 capsule 1 (one) time each day at the same timeActive pregabalin (Lyrica) 25 MG capsule Take 25 mg by mouth in the morning and 25 mg in the evening and 25 mg before bedtime.Active phentermine (Adipex-P) 37.5 MG tablet Take 37.5 mg by mouth in the morning. Take before meals.Active estradiol (Estrace) 0.1 MG/GM vaginal cream Indications:Hormone sgcwhuso8i vaginal daily for 2 weeks, then 2 times weekly following initial 2 weeks 42.5 g 5Active Estradiol Starter Pack (Imvexxy Starter Pack) 4 MCG insert Indications:Dyspareunia, female,Hormone disorder,Pelvic pain in femaleInsert 1 Insert into the vagina 2 (two) times a week 8 each 5Active Active Problems ProblemNoted DateDiagnosed DateOther bruwunvmfbyn74/06/2024Well woman exam with routine gynecological exam4Pelvic pain in cnszvu9006/19/2023ostoperative visit06/19/2023bnormal cervical Papanicolaou smear03/23/2023omplex ovarian cyst03/23/20233218Sjqglesmky02/14/2023idney stone03/23/2023Low grade squamous intraepithelial lesion (LGSIL) on cervicovaginal cytologic smear03/23/2023 Abpwjwr0103/23/2023ruritus of tzqecl0803/23/2023Examination for, follow-up 03/23/2023 Encounters DateTypeDepartmentCare XtgqSououvixjhk98/03/2025linisync Result Encounter [facility] Unsolicited Shan Mccann, DO 05/12/2025Telephone [facility] [place] [facility] [address] [phone] Suzanne August MA 05/08/2025linisync Result Encounter [facility] External Department Unsolicited Shan Mccann, DO 05/07/2025linisync Result Encounter [facility] External Department Unsolicited Shan Mccann, DO 05/05/2025Telephone [facility] [place] [facility] [address] [place] [phone] Shan Mccann, DO from Last 3 Months Family History Medical HistoryRelationNameCommentsArthritisFatherHyperlipidemiaMaternal Grandfather??HypertensionMaternal Grandfather??HyperlipidemiaMaternal Grandmother??HypertensionMaternal Grandmother??Breast cancerMotherGinger ArthritisPaternal Grandfather??HyperlipidemiaPaternal Grandfather??Hypertension Paternal Grandfather??HyperlipidemiaPaternal Grandmother??HypertensionPaternal Grandmother??RelationNameStatusCommentsFatherMaternal Grandfather??Maternal Grandmother??MotherGingerPaternal Grandfather??Paternal Grandmother??Son 1Alive Son 2Alive Social History Tobacco UseTypesPacks/DayYears UsedDateSmoking Tobacco: NeverSmokeless Tobacco: Never Tobacco Cessation:Counseling Given: Not Answered Alcohol UseStandard Drinks/WeekCommentsNever0 (1 standard drink = 0.6 oz pure alcohol)CommentsNoSex and Gender InformationValueDate RecordedSex Assigned at BirthNot on fileLegal VqsHlrimc33/15/2023 11:47 PM EDTGender MruldzdiDmqrjh64/17/2023 3:08 PM EDTSexual OrientationNot on file Last Filed Vital Signs Vital SignReadingTime TakenCommentsBlood Dgiltkfn314/70001/28/2025 4:12 PM EDT Pulse--Temperature--Respiratory Rate--Oxygen Saturation--Inhaled Oxygen Concentration--Zckjfd14.2 kg (190 lb)01/28/2025 4:12 PM TNUMdachd579.6 cm (5' 4 )02/14/2024 9:20 AM EDTBody Mass Index32.61002/14/2024 9:20 AM EDT Plan of Treatment DateTypeDepartmentCare Team (Latest Contact Info)Wgukbbfgjym20/22/2026 11:00 AM EDTOffice Visit [facility] [place] [facility] [address] [phone] Shan Mccann DO [address] [place] [address] Procedures Procedure NamePriorityDate/TimeAssociated DiagnosisCommentsALL CEARoutine 05/13/2025 9:00 AM EDT [facility] HCG,BETA-QUANT,TUMOR HLPNOHKxsrjnc39/03/2025 9:00 AM EDT ALL [place] 611Cjlgndx31/03/2025 9:00 AM EDT ELCH AFP TUMOR REDMCVOwxnwtn78/03/2025 9:00 AM EDT ALL VHFKlnwzyr95/11/2024 9:00 AM EDT US PELVIS W/ KNJACWRMQNSU99/29/2025 12:41 AM EDT MM TOMOSYNTHESIS SCREENING BI05/07/2025 4:19 PM EDT from Last 3 Months Results * ELCH AFP TUMOR MARKER (05/13/2025 9:00 AM EDT)ComponentValueRef RangeTest MethodAnalysis TimePerformed AtPathologist SignatureAFP, SERUM, TUMOR MARKER <1.80.0 - 6.4 ng/mLTBHComment: [employer] Electrochemiluminescence Immunoassay (ECLIA) Values obtained with different assay methods or kits cannot be used interchangeably. ??Results cannot be interpreted as absolute evidence of the presence or absence of malignant disease. This test is not interpretable in females. Specimen (Source)Anatomical Location / LateralityCollection Method / Volume Collection TimeReceived Time05/13/2025 9:00 AM EDT05/13/2025 9:04 AM EDT Narrative CLINISYNC - 05/14/2025 4:07 AM EDT Authorizing ProviderResult TypeResult StatusCorey Siobhan DOCLINISYNCFinal Result Performing OrganizationAddressCity/State/ZIP CodePhone Number CLINISYUT [facility] * HCG,BETA-QUANT,TUMOR MARKER (05/13/2025 9:00 AM EDT)ComponentValueRef Range Test MethodAnalysis TimePerformed AtPathologist SignatureHCG TUMOR MARKER<1. mIU/mLTBHComment: ? Female (Non-) ?0 - ? 5 ?(Postmenopausal) ??0 - ? 8 [employer] Electrochemiluminescence Immunoassay (ECLIA) The [employer] HCG + beta assay recognizes the holo-hormone, human chorionic gonadotropin (hCG), nicked forms of hCG, the beta-core fragment and the free beta-subunit in human serum and plasma. Results obtained with different test methods or kits cannot used interchangeably. This assay is intended for the early detection of . The result should not be used for treatment or for diagnostic purposes without confirmation of the diagnosis by another medically established diagnostic product or procedure. This test was developed and its performance characteristics determined by [employer]. It has not been cleared or approved by the Food and Drug Administration for use as a tumor marker. This test is not interpretable as a tumor marker in females. Performed at: ??[address] ??[id number] [employer] Cellar Dropper: Ciaran Fine PhD, Phone: ??[phone] Specimen (Source)Anatomical Location / LateralityCollection Method / Volume Collection TimeReceived Time05/13/2025 9:00 AM EDT05/13/2025 9:04 AM EDT Narrative CLINISYNC - 05/14/2025 4:07 AM EDT Authorizing ProviderResult TypeResult StatusCorey Siobhan DOCLINISYNCFinal Result Performing OrganizationAddNew [facility]/State/ZIP CodePhone Number [facility] * ALL [facility] (05/13/2025 9:00 AM EDT)ComponentValueRef RangeTest MethodAnalysis TimePerformed AtPathologist SignatureLACTATE FRDNHWFVHGENF64511 - 234 U/LTBH Specimen (Source)Anatomical Location / LateralityCollection Method / Volume Collection TimeReceived Time05/13/2025 9:00 AM EDT05/13/2025 9:04 AM EDT Narrative CLINISYNC - 05/13/2025 10:37 AM EDT Authorizing ProviderResult TypeResult StatusCorey Siobhan DOCLINISYNCFinal Result Performing [facility]Add[facility] HospitalPhone Number [facility] * ALL CEA (05/13/2025 9:00 AM EDT)ComponentValueRef RangeTest MethodAnalysis TimePerformed AtPathologist SignatureCEA1.30.0 - 4.7 ng/mLTBHComment: Nonsmokers <3.9 Smokers <5.6 [employer] Electrochemiluminescence Immunoassay (ECLIA) Values obtained with different assay methods or kits cannot be used interchangeably. ??Results cannot be interpreted as absolute evidence of the presence or absence of malignant disease. Performed at: ??[address], [place] [id number] [employer] Cellar Dropper: Ciaran Fine PhD, Phone: ??[phone] Specimen (Source)Anatomical Location / LateralityCollection Method / Volume Collection TimeReceived Time05/13/2025 9:00 AM EDT05/13/2025 9:04 AM EDT Narrative CLINISYNC - 05/14/2025 4:07 AM EDT Authorizing ProviderResult TypeResult StatusCorey Siobhan DOCLINISYNCFinal Result Performing OrganizationAddressCity/State/ZIP CodePhone Number [facility] * [place] 125 (05/13/2025 9:00 AM EDT)ComponentValueRef RangeTest MethodAnalysis TimePerformed AtPathologist SignatureCANCER ANTIGEN ([place]) 94298.80.0 - 38.1 U/mLTBHComment: [employer] Electrochemiluminescence Immunoassay (ECLIA) Values obtained with different assay methods or kits cannot be used interchangeably. ??Results cannot be interpreted as absolute evidence of the presence or absence of malignant disease. Specimen (Source)Anatomical Location / LateralityCollection Method / Volume Collection TimeReceived Time05/13/2025 9:00 AM EDT05/13/2025 9:04 AM EDT Narrative CLINISYNC - 05/14/2025 4:07 AM EDT Authorizing ProviderResult TypeResult StatusCorey Siobhan DOCLINISYNCFinal Result Performing OrganizationAddNew [facility]/State/ZIP CodePhone Number [facility] * US PELVIS W/ TRANSVAGINAL (05/08/2025 12:41 AM EDT)Anatomical RegionLaterality ModalityOtherSpecimen (Source)Anatomical Location / LateralityCollection Method / VolumeCollection TimeReceived Time05/08/2025 12:41 AM EDT Narrative 05/08/2025 12:44 AM EDT [facility] ?[address] ? [place] [address] ? Ultrasound Report ? Signed ? Patient: KIZZY JALLOH ?MR#: [id number] ?? : 1985 ?Acct:[id number] ?? Age/Sex: 40 / F ?ADM Date: 05/07/25 ?? Loc: US ? Attending Dr: Shan Mccann D.O. ? Ordering Physician: Shan Mccann D.O. ?? Date of Service: 05/07/25 ?? Procedure(s): US pelvis w/ transvaginal ?? Accession Number(s): [id number] ? cc: Shan Mccann D.O.; LIDIA LUNDBERG ? [facility] ? [address] ? [place] [address] ? Patient Name: ?? KIZZY JALLOH ? MRN: [employer]:[id number] ? date: 1985 ?Sex: F ?? Assigned Patient Location: US ?? Current Patient Location: ? Accession/Order Number: [id number] ?? Exam Date: 05/07/2025 ??12:56 ?Report Date: 05/08/2025 ??00:41 ? At the request of: ?? SHAN ??SIOBHAN ??DO ? Procedure: ??US pelvis w/ transvaginal ? EXAMINATION TYPE: US pelvis w/ transvaginal Grayscale, color scale Doppler, ?? vascular duplex analysis of the bilateral ovaries ? DATE OF EXAM ORDERED: 05/07/2025 1:25 PM ? HISTORY: Pelvic pain in female, hysterectomy ? COMPARISON: 07/06/2022 ? TECHNIQUE: Realtime Transvaginal and Transabdominal imaging was performed. ? Transvaginal imaging was utilized to better evaluate the ovaries and the ?? endometrial stripe. ??Grayscale, color scale Doppler, vascular duplex analysis ?? of the bilateral ovaries was performed to assess blood flow. ? FINDINGS: ? Ovaries: There is a thick-walled complex cysts in the left ovary measuring 3.8 ?? x 3.3 x 2.9 cm. ? Right Ovary measurements: 2.7 x 2.8 x 2.0 cm ? Left Ovary measurements: 5.4 x 4.2 x 3.2 cm ? No abnormal adnexal mass is seen. ??No free fluid in the pelvic cul-de-sac. ? Vascular duplex analysis of the bilateral ovaries demonstrates normal blood ?? flow without evidence of ovarian ischemia. ? US/US pelvis w/ transvaginal ?? IMPRESSION: ? There is a thick-walled complex cysts in the left ovary measuring 3.8 x 3.3 x ?? 2.9 cm. ? No evidence of ovarian ischemia. ? Impression dictated by: Dalton Gonzalez M.D. ??05/08/2025 12:41 AM ? Dictation Location: RADIO-PC-17 ? Electronically authenticated by: [id number] ??Y ?? Date: 05/08/2025 ??00:41 ? Dictated By: ?Dalton Gonzalez M.D. ? Signed By: ?05/08/2543 ? DD/ 0041 ? TD/TT: ? Electric Train Driver: Procedure Note Radiology, Radiologist, - 05/08/2025 [place] [address] Ultrasound Report Signed Patient: KIZZY JALLOH MMR#: [id number] : 1985Acct:[id number] Age/Sex: 40 / FADM Date: 05/07/25 Loc: US Attending Dr: Shan Mccann D.O. Ordering Physician: Shan Mccann D.O. Date of Service: 05/07/25 Procedure(s): US pelvis w/ transvaginal Accession Number(s): [id number] cc: Shan Mccann D.O.; LIDIA LUNDBERG [place] [address] Patient Name: KIZZY JALLOH MRN: [facility]:[id number] date: 1985 Sex: F Assigned Patient Location: Current Patient Location: Accession/Order Number: [id number] Exam Date: 05/07/2025 12:56 Report Date: 05/08/2025 00:41 At the request of: SHAN MCCANN DO Procedure: US pelvis w/ transvaginal EXAMINATION TYPE: US pelvis w/ transvaginal Grayscale, color scaleDoppler, vascular duplex analysis of the bilateral ovaries DATE OF EXAM ORDERED: 05/07/2025 1:25 PM HISTORY: Pelvic pain in female, hysterectomy COMPARISON: 07/06/2022 TECHNIQUE: Realtime Transvaginal and Transabdominal imaging was performed. Transvaginal imaging was utilized to better evaluate the ovaries and the endometrial stripe. Grayscale, color scale Doppler, vascular duplexanalysis of the bilateral ovaries was performed to assess blood flow. FINDINGS: Ovaries: There is a thick-walled complex cysts in the left ovary measuring3.8 x 3.3 x 2.9 cm. Right Ovary measurements: 2.7 x 2.8 x 2.0 cm Left Ovary measurements: 5.4 x 4.2 x 3.2 cm No abnormal adnexal mass is seen. No free fluid in the pelvic cul-de-sac. Vascular duplex analysis of the bilateral ovaries demonstrates normalblood flow without evidence of ovarian ischemia. US/US pelvis w/ transvaginal IMPRESSION: There is a thick-walled complex cysts in the left ovary measuring 3.8 x3.3 x 2.9 cm. No evidence of ovarian ischemia. Impression dictated by: Dalton Gonzalez M.D. 05/08/2025 12:41 AM Dictation Location: [place] [address] Electronically authenticated by: [id number] Y Date: 500:41 Dictated By: Dalton Gonzalez M.D. Signed By:05/08/25 0044 DD/ TD/TT: Electric Train Driver: Authorizing ProviderResult TypeResult StatusCorey Siobhan DOCLINISYNC IMAGINGFinal Result * MM TOMOSYNTHESIS SCREENING BI (05/07/2025 4:19 PM EDT)Anatomical Region LateralityModalityOtherSpecimen (Source)Anatomical Location / Laterality Collection Method / VolumeCollection TimeReceived Time05/07/2025 4:19 PM EDT Narrative 05/07/2025 4:20 PM EDT [facility] ?[address] ? [place] [address] ? Mammography Report ? Signed ? Patient: SHUBHAM,IKZZY M ?MR#: [id number] ?? : 1985 ?Acct:[id number] ?? Age/Sex: 40 / F ?ADM Date: 05/07/25 ?? Loc: US ? Attending Dr: Shan Mccarthy.O. ? Ordering Physician: Shan Mccann D.O. ?Results: ? Date of Service: 05/07/ ?Follow Up: ? Procedure(s): MM tomosynthesis screening BI ?? Accession Number(s): [id number] ? cc: Shan Mccann D.O.; LIDIA LUNDBERG ? Patient Name: ? KIZZY JALLOH ? MR#: [id number] ? : 1985 ? Exam Date: 05/07/2025 ?? Ordering Doctor: DR SHAN MCCANN . ? RADIOLOGY REPORT ? PROCEDURE: ? MM TOMOSYNTHESIS SCREENING BI ? COMPARISON: ? [facility] DIAG W CAD, 08/05/2019. ? INDICATIONS: ? Screening for malignant neoplasm ? Calculator Name ? NCI Breast Cancer Risk Assessment Tool ?? 5 Year Breast Cancer Risk ? 1.10% ?? Lifetime Breast Cancer Risk ? 18.30% ?? Personal Breast Cancer ?No ?? Personal Ovarian Cancer ? No ?? Treatments ? partial hysterectomy ?? Family Cancers ? Mother with breast cancer at age ??353. ? LOCATION: ? [facility] ? BREAST COMPOSITION: ? The breasts are heterogeneously dense, which may ?? obscure small masses. ? FINDINGS: ? RIGHT BREAST: ??No significant suspicious finding. ? LEFT BREAST: ??No significant suspicious finding. ? DIAGNOSTIC CATEGORY 1--NEGATIVE. ? RECOMMENDATIONS: ? ROUTINE MAMMOGRAM AND CLINICAL EVALUATION IN 12 MONTHS. ? Dictated by: Aiden Foote DO on 05/07/2025 at 16:18 ? Approved by: Aiden Foote DO on 05/07/2025 at 16:19 ? Dictated By: ?Aiden Foote D.O. ? Signed By: ?05/07/ 1620 ? DD/DT: 05/07/ 1619 ? TD/TT: ? Electric Train Driver: Procedure Note Radiology, Radiologist, MD - 05/07/2025 [place] [address] Mammography Report Signed Patient: KIZZY JALLOH MMR#: [id number] : 1985Acct:[id number] Age/Sex: 40 / FADM Date: 05/07/25 Loc: US Attending Dr: Shan Mccann D.O. Ordering Physician: Shan Mccann D.O.Results: Date of Service: 05/07/25Follow Up: Procedure(s): MM tomosynthesis screening BI Accession Number(s): [id number] cc: Shan Mccann D.O.; LIDIA LUNDBERG Patient Name: KIZZY JALLOH MR#: [id number] : 1985 Exam Date: 05/07/2025 Ordering Doctor: DR SHAN MCCANN . RADIOLOGY REPORT PROCEDURE: MM TOMOSYNTHESIS SCREENING BI COMPARISON: [facility]M [facility] DIAG W CAD, 08/05/2019. INDICATIONS: Screening for malignant neoplasm Calculator Name NCI Breast Cancer Risk Assessment Tool 5 Year Breast Cancer Risk 1.10% Lifetime Breast Cancer Risk 18.30% Personal Breast Cancer No Personal Ovarian Cancer No Treatments partial hysterectomy Family Cancers Mother with breast cancer at age 353. LOCATION: [facility] BREAST COMPOSITION: The breasts are heterogeneously dense, which may obscure small masses. FINDINGS: RIGHT BREAST: No significant suspicious finding. LEFT BREAST: No significant suspicious finding. DIAGNOSTIC CATEGORY 1--NEGATIVE. RECOMMENDATIONS: ROUTINE MAMMOGRAM AND CLINICAL EVALUATION IN 12 MONTHS. Dictated by: Aiden Foote DO on 05/07/2025 at 16:18 Approved by: Aiden Foote DO on 05/07/2025 at 16:19 Dictated By: Aiden Foote D.O. Signed By:05/07/25 162 DD/ 1619 TD/TT: Electric Train Driver: Authorizing ProviderResult TypeResult StatusCorey Siobhan DOCLINISYNC IMAGINGFinal Result from Last 3 Months Insurance
--- OUTSIDE RECORDS SUMMARY | 2025-07-30 15:51 | XMS_ITS | Patient Health Record ---
Author Organization [facility] Address [address] [place] [address] Care Team Providers Care Weapons Officer Name Role Phone PCP, NO Primary Care Provider Unavailabl e Luca Inregis Unavailable Self, Referral Unavailable Unavailable Luli Cordoba Unavailable [phone] Patricio Aldridge Unavailable [phone] Lynnette Torres Unavailable [phone] Allergies Allergen (clinical drug ingredient) Drug/Non Drug Allergy documented on EMR Reaction Allergy Type Onset Date Status adhesives (uncoded)UnknownAllergyActivenubain (uncoded)unknown, during labor in 2009AllergyActiveSiliconesilicone (uncoded)UnknownAllergyActive Reason For Referral Reason PRIOR AUTH APPROVED LEANDRO ERICH...01/20....PLEASE OBTAIN AUTHORIZATION FOR MRI LUMBAR Diagnosis 1 Low back pain, unspe cified back pain laterality, unspecified chronicity, unspecified whether sciatica present (M54.50) Referral Organization [facility] Referring Provider First Name Inalyciag Referring Provider Last Name ysabelRenettaInalycia g Referring Provider Speciality Orthopedic Surgery Referred Organization [facility] Referred Address [address] [place] [address],[place], [place],[address], Procedure 1 MRI Lumbar Spine w/o Dye (15339) General Notes Charline Loyola 10:12:48 AM > PER [place]TON PRIOR AUTH HAS BEEN APPROVED FROM 12/30/2024-02/27/2025 AUTH # [id number], AUTH IN CHART, Referral Priority Routine Reason Eval and treat for S gabriella Cord Stim Diagnosis 1 S/P lumbar fusion (Z 98.1) Referral Organization [facility] Referring Provider First Name Pippakasi Referring Provider Last Name ysabelAquilesalycia kasi Referring Provider Speciality Orthopedic Surgery Referred Organization [facility] Referred Address [address] [place], [place],[address],[place] General Notes Nikia Mast 01/20 04:00:46 PM >, Leeanna Cancino 01/22/2025 02:19:22 PM > LM TO SCHEDULE APPT Referral Priority Routine Reason psych eval for scs t rial Diagnosis 1 Failed back syndrome (M96.1) Referral Organization [facility] Referring Provider First Name Lynnette Referring Provider Last Name Brian Referring Provider Speciality Nurse Richy galvan Referred Organization [facility] Referred Address [address] [place], [place],[address], Referred Provider Specialty Psychiatry General Notes Jose De Jesus Ascencio 02:44:10 PM > Referral Priority Routine Referral Appointment Date 04/02/2025 Medications Medication SIG (Take, Route, Frequency, Duration) Notes Start Date End Date Status NexIUM ActivemultivitaminActiveFish OilActiveMobic 15 mg1 tab(s) orally once a day; Duration: 30 days5Activemagnesium glycinateActiveIron ChewsActive vitamin EActiveestradiol 0.5 mg1 tab(s) orally once a dayActive Social History Tobacco Use: Social History Observation Description Date Details (start date - stop date) Never Smoker NA - NA Sex Assigned At : Social History Observation Description Sex Assigned At Female AUDIT-C (Standard) Question Answer Notes Did you have a drink containing alcohol in the p ast year? No Zkjjvj0PloorxmsperfnsCwosbfvoHbljdys Control (Standard) Question Answer Notes Tobacco use: Nonsmoker Problems Problem Type SNOMED Code ICD Code Onset Dates Problem Status W/U Status Risk Notes Problem Cervical radiculopathy (43382203) Cervica l radiculopathy (M54.12) ActiveconfirmedProblemFibromyalgia (211365748)Fibromyalgia (M79.7)Active confirmedProblemPain of left knee region (finding) (719803441554593)Knee pain, left (M25.562)ActiveconfirmedProblemLumbar radiculopathy (812926418)Lumbar radiculopathy (M54.16)ActiveconfirmedProblemArthralgia of the pelvic region and thigh (369643021)Pain in right hip (M25.551)ActiveconfirmedProblemPain of right knee region (finding) (552512297844116)Knee pain, right (M25.561)Activeconfirmed ProblemLocalized, primary osteoarthritis of the pelvic region and thigh (302480022)Bilateral primary osteoarthritis of hip (M16.0)ActiveconfirmedProblem Osteoarthritis of knee (861613435)Bilateral primary osteoarthritis of knee (M17.0)ActiveconfirmedProblemPain of left hip joint (finding) (812029650857736) Pain in left hip (M25.552)ActiveconfirmedProblemSacroiliitis (01914740) Sacroiliitis (M46.1)ActiveconfirmedProblemShoulder joint pain (606032866)Acute pain of right shoulder (M25.511)ActiveconfirmedProblemFailed back syndrome (44748327)Failed back syndrome (M96.1)ActiveconfirmedProblemSomatic dysfunction of sacroiliac joint (finding) (439424569094)SI (sacroiliac) joint dysfunction (M53.3)ActiveconfirmedProblemTear of right acetabular labrum, initial encounter (S73.191A)ActiveconfirmedProblemMyofascial pain (198358704)Myofascial pain (M79.18)ActiveconfirmedProblemHistory of lumbar fusion (05064163150676)S/P lumbar fusion (Z98.1)ActiveconfirmedProblemSomatic dysfunction of bilateral sacroiliac joints (finding) (12422894092839912)Sacroiliac joint dysfunction of both sides (M53.3)ActiveconfirmedProblemFailed back syndrome (52790891)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)Activeconfirmed Vital Signs Height 5'4 in 04/02/2025 Fgbkig315 lbs04/02/2025BMI30.8904/02/2025 Encounters Encounter Location Date Provider Diagnosis [facility] [address] [place] [phone] 01/20/2025 [facility] Lumbar radiculopathy M54.16 [facility] [address] [place] [address] 12/01/2024 Luli Cordoba Knee pain, right M25.561 ; Bilateral primary osteoarthritis of knee M17.0 and Knee pain, left M25.562 [facility] [address] [place] [phone] 12/30/2024 [facility] Low back pain, unspecified back pain laterality, unspecified chronicity, unspecified whether sciatica present M54.50 ; Lumbar radiculopathy M54.16 and S/P lumbar fusion Z98.1 [facility] [address] [place] [phone] 01/20/2025 [facility] S/P lumbar fusion Z98.1 [facility] [address] [place] [id number] 02/19/2025 Patricio Aldridge Fibromyalgia M79.7 a nd Failed back surgical syndrome M96.1 [facility] [address] [place] [id number] 04/02/2025 Lynnette [facility] Failed back syndrome M96.1 and Fibromyalgia M79.[address] [facility] [address] [place] [address] 01/27/2025 Patricio Aldridge Assessments Encounter Date Diagnosis (ICD Code) Assessment Notes Treatment Notes Treatment Clinical Notes Section Notes 12/01/2024 Knee pain, right (ICD-10 - M25.5 61) 12/01/2024ilateral primary osteoarthritis of knee (ICD-10 - M17.0)12/30/2024 Lumbar radiculopathy (ICD-10 - M54.16) 1. low [...] MRI has been obtained to discuss results. 12/30/2024Low back pain, unspecified back pain laterality, unspecified [...] MRI has been obtained to discuss results. 01/20/2025Lumbar radiculopathy (ICD-10 - M54.16)01/20/2025S/P lumbar fusion (ICD-10 - Z98.1) 1. s/p L4-L5 fusion 2. Radiculopathy 3. Low back pain At this time we have discussed given no evidence of significant stenosis there is no role for surgical decompression. There is also evidence of solid fusion. We have discussed failed back/post-laminectomy syndrome and the role of spinal cord stimulator in treating patients with this pathology and she would like to pursue this option. We will refer her to Dr. Aldridge to discuss this. We will see her back on as needed basis. 02/19/2025Fibromyalgia (ICD-10 - M79.7)40-year-old female who has prior history of L4-L5 posterior spinal fusion without evidence of hardware loosening as well as prior bilateral sacroiliac joint fusion through our office was not having so me low back pain with left greater than right lower extremity radiculopathy without any concern forstenosis. Her biggest reason for having pain is due to fibromyalgia and centralized pain disorder. I discussed with her that we will avoid any sort of psychiatric based medications that she has a longstanding history of psychiatric conditions with reactions to prior antidepressants. 02/19/2025Failed back surgical syndrome (ICD-10 - M96.1)40-year-old female who has prior history of L4-L5 posterior spinal fusion without evidence of hardware loosening as well as prior bilateral sacroiliac joint fusion through our office was not having some low back pain with left greater than right lower extremity radiculopathy without any concern forstenosis. Her biggest reason for having pain is due to fibromyalgia and centralized pain disorder. I discussed with her that we will avoid any sort of psychiatric based medications that she has a long standing history of psychiatric conditions with reactions to prior antidepressants.04/02/2025Fibromyalgia (ICD-10 - M79.7) 40-year-old female who has [...] not requiring surgical intervention - Occupational exacerbation 04/02/2025Failed back syndrome (ICD-10 - M96.1) 40-year-old female [...] not requiring surgical intervention - Occupational exacerbation 12/30/2024S/P lumbar fusion (ICD-10 - Z98.1) 1. low [...] MRI has been obtained to discuss results. 12/01/2024Knee pain, left (ICD-10 - M25.562)12/01/2024OtherAt this point, we discussed treatment options and alternatives with the patient. I have recommendedanti-inflammatory medications to calm down the inflammation. I prescribed Mobic and precautions of the medication were reviewed. She is sensitive to medication so she will start with half of a dose and increase if she tolerates. If she continues to have issues we discussed repeating cortisone injections.01/20/2025Other Plan established and discussed MRI results with the patient. The patient is very much in agreement with the treatment and/or diagnostic plan set forth and all questions were answered to the patient'ssatisfaction. Thanks once again. If we can be [...] of solid fusion. We have discussed failed back/post-laminectomy syndrome and the role of spinal cord stimulator in treating patients with this pathology and she would like to pursue this option. We will refer her to Dr. Aldridge to discuss this. We will see her back on as needed basis. 02/19/2025Other Injections -none at this time Adjunct medications [...] of psychiatric conditions with reactions to prior antidepressants.04/02/2025Other - Psychological evaluation required for spinal cord stimulator candidacy (insurance-specific provider, paperwork-based process) - Spinal cord stimulator trial consideration: Dr. Aldridge to perform at [facility] in [place] if[place]ological clearance obtained - Permanent implant would require referral to [facility] if trial successful - Insurance authorization required following psychological clearance - Medical cannabis consultation recommended through family physician - Continue current Lyrica through [facility] pain management - 8-week follow-up scheduled in [place] - Patient education provided regarding fibromyalgia pathophysiology [...] intervention - Occupational exacerbation Plan Of Treatment Pending Test Test Name Order Date Rheumatoid factor 12/26/2023 ESR 12/26/2023 MRI : Hip Right without - [address] 12/26/19 24 Surgery Scheduling 07/17/2023 Work Slip, Off Work: Patient was seen in my office today and will be off work until seen back in my office for follow-up appointment. 08/24/2023 Work Slip with Restrictions: 06/05/2023 Work Slip 09/07/2023 HLA B27 12/26/2023 PT-eval and treat 03/17/2024 SCC- HIP W/ PELVIS, LEFT [address] CT Pelvis W/O Contrast 06/01/2023 SI JOINT INJECTION 06/01/2023 HIP INJECTION 10/05/2023 SCC- PT/OT EVAL AND TREAT 3X/WEEK FOR 6 WEEKS 01/21/2024 SI Joint Fusion 07/12/2023 SCC- HIP W/ PELVIS, RIGHT 00518 12/26/19 SCC- KNEE 4 VIEW LEFT-65511 12/01/2024 SCC- KNEE 4 VIEW RIGHT 46587 12/01/2024 Future Test Test Name Order Date MRI : Lumbosacral Spine W/O Contrast - 7 2148 12/30/2024 Insurance Providers Payer Name Payer Address Payer Phone Subscriber Number Group Number Insured Name Patient Relationship to Insured Coverage Start Date Coverage End Date Medicaid [place] [address] [place] [address] [phone] [id number] SHUBHAM ASHLEEMarquitasasha - patient is the [id number] 2024[facility] [address] [place] [id number] - patient is the [id number] [facility]22[facility] [address] [facility] [address] [place] [address] [phone] - patient is the [id number] 2024 2024 Medical (General) History Medical History History ICD Code Depression: Yes Mental Illness: YesAnxiety: YesDrug Allergies: YesASPTSDAnemiaCholesterol Surgical History Surgery Date(Month/Year) Bilateral SI jnt fusion 08/2023 Hysterectomy/partial AblationL4-5 TLIF11/20212152O5-2 laminectomy, wogqxzlsca71/2021C section y90821, 2008
--- OUTSIDE RECORDS SUMMARY | 2025-07-30 15:51 | XMS_ITS | Clinical Summary ---
Author Organization [facility] Address [address] [place] [address] Care Team Providers Care Sales And Service Consultant Name Role Phone Kehinde Ivey CNP Primary Care Provider [phone] Allergies Active AllergyReactionsCriticalityNoted DateCommentsNalbuphineNausea and Tzuhajyz24/02/2022 Medications MedicationSigDispense QuantityRefillsLast FilledStart DateEnd DateStatus esomeprazole [address] capsule 1 cap(s)Active naproxen 500 MG tablet Take 1 tablet by mouth.04/06/2022ctive rOPINIRole 0.5 MG tablet Take 1 tablet by mouth at bedtime.02/16/2022ctive Ubrogepant (Ubrelvy) 100 MG tablet 1 tab(s)04/06/2022ctive Estradiol 0.5 MG tablet Take 1 tablet by mouth daily.08/14/2023ctive Active Problems ProblemNoted DateDiagnosed ZootBkdolcckfsicr89/02/4651Humyvmscbine32/02/2024 Ivfkoveceezp04/02/9824Wgzrkridgmsy60/02/4125Izaotlvoy54/02/2024Lumbar degenerative disc epdwqyb5509/11/2023Thoracic degenerative disc rpbnbzl7709/11/2023 Angiomyolipoma of left byoeye5409/11/2023dnexal cyst09/11/2023Long term current use of non-steroidal anti-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 (NSAID)09/11/2023hondromalacia of left knee04/11/2022egeneration of lumbosacral intervertebral disc04/11/2022 Displacement of lumbar intervertebral disc without hnspxurnir93/02/2022Lumbar tolxtycmxwulv40/02/2022Lumbosacral lrdgyrqf29/02/2022Lumbar pain04/11/2022ain in left knee2Obesity (BMI 30.0-34.9)2Chronic bilateral thoracic back pain04/06/2022Large weunklm7904/06/2022Lordosis of cervicothoracic cezrbn7504/06/2022Elevated fasting aeijmwo65/09/8654Fozjszwef95/16/2021PTSD (post- traumatic stress disorder)1Abdominal pain08/28/2018Acute non intractable tension-type ykexdcfc65/19/2018Chronic izrgktn9108/28/2018Overuse qyulyzsa39/03/2018Strain of back04/12/2018Threatened labor04/28/2017 Resolved Problems ProblemNoted DateDiagnosed DateResolved DateDisorder of bone and cartilage History of ankylosing eokfmjriass60 Immunizations ImmunizationAdministration DatesNext DueInfluenza Vaccine, Quadrivalent MDCK PF 07/02/2020influenza, injectable, fbdygxtsuyrr50/04/2019 Family History Medical HistoryRelationNameCommentsBreast CancerMotherRelationNameStatusComments Mother Social History Tobacco UseTypesPacks/DayYears UsedDateSmoking Tobacco: NeverSmokeless Tobacco: NeverAlcohol UseStandard Drinks/WeekCommentsNot Currently0 (1 standard drink = 0.6 oz pure alcohol)CommentsUnknownSex and Gender InformationValueDate RecordedSex Assigned at BirthNot on fileLegal VtpDxaqmq56/20/2022 1:51 PM EDT Gender IdentityNot on fileSexual OrientationNot on file Last Filed Vital Signs Vital SignReadingTime TakenCommentsBlood Amwgvone602/8209/11/2023 9:16 AM EST Jjwev819209/11/2023 9:16 AM LJSMitolqjlmbg62.1 ??C (97 ??F)09/11/2023 9:16 AM EST Respiratory Rate--Oxygen Kyhwsmubfg20%09/11/2023 9:16 AM ESTInhaled Oxygen Concentration--Kcrrbv42.5 kg (193 lb)09/11/2023 9:16 AM JRYKyzroi176.6 cm (5' 4 )09/11/2023 9:16 AM ESTBody Mass Index33.13009/11/2023 9:16 AM EST Plan of Treatment Health MaintenanceDue DateLast DoneCommentsHEPATITIS C VIRUS CFPVCHITJ1985 ZJDJIFX57 1985HIV SCREENING PASKWIKHCS36/01/2000HEP B VACCINE (1 of 3 - 19+ 3-dose series)01/09/2004PNEUMOCOCCAL VACCINE SERIES (1 of 2 - PCV)01/09/2004TDAP (ADULT)01/09/2004ZOSTER (SHINGLES) VACCINE (1 of 2)01/09/2004CERVICAL CANCER SCREENING EHDGFWDSQF82/01/2006HPV VACCINE (1 - 3-dose SCDM series)01/09/2012 COVID-19 VACCINE (3 - Pfizer risk series)/, 02/04/2021IPID YEURNZJOI58/01/2025MAMMOGRAM SCREENING LFTDSHQXQD30/01/2025INFLUENZA VACCINE (#1)/, 07/02/2020, 07/14/2019 Insurance Care Teams Team MemberRelationshipSpecialtyStart DateEnd Date Kehinde Ivey CNP [address] [place] [address] PCP - GeneralCertified Nurse Practitioner04/11/22
--- OUTSIDE RECORDS SUMMARY | 2025-07-30 15:52 | XMS_ITS | Clinical Summary ---
Author Organization [facility] Address [address] [place] [id number] Care Team Providers Care Cisco Consultant Name Role Phone Unavailable Primary Care Provider Unavailabl e Allergies Active AllergyReactionsCriticalityNoted DateCommentsAdhesive Tape (Rosins)Rash Low08/17/2023 Cloth tape, tears skin and welts NalbuphineIntolerance,Vomiting,Other: See Comments,PwkfFzcp51/01/2013 Pt vomited after being given Nubain in the past pt states when taking it becamse dizzy and nauseated was pregant had to be rushed back to surgery. Medications MedicationSigDispense QuantityRefillsLast FilledStart DateEnd DateStatus esomeprazole (NEXIUM) 20 mg capsule Take 20 mg by mouth once daily.4Active BASE, PCCA VANPEN crea Apply 1 application to affected area once daily.5Active ubrogepant (UBRELVY) 100 mg tablet Take 100 mg by mouth once daily as needed.2Active Phentermine HCl 37.5 mg tablet Take 37.5 mg by mouth.Active acetaminophen (ACETAMINOPHEN EXTRA STRENGTH) 500 mg tablet Take 1 tablet every 6 to 8 hours as needed for pain 40 tablet 5Active docusate sodium (COLACE) 100 mg capsule Indications:constipationTake 1 capsule by mouth two times a day. 60 capsule 5Active methocarbamol (ROBAXIN) 500 mg tablet Take 1 tablet every 6 to 8 hours as needed for pain or muscle spasms 40 tablet 5Active Additional Information Patient not taking.Reason: Course of Therapy Completed, Reported on 05/19/2025 ondansetron orally disintegrating (ZOFRAN ODT) 4 mg disintegrating tablet Take 1 tablet by mouth every 8 hours as needed for nausea/vomiting. 9 tablet 5Active meloxicam (MOBIC) 15 mg tablet Take 1 tablet by mouth once daily. 30 tablet 5Active pregabalin (LYRICA) 75 mg capsule Indications:Fibromyalgia,Back pain with history of spinal surgery,Status post lumbar spinal fusionTake 1 capsule by mouth three times a day for 90 days. 90 capsule 6Active pregabalin (LYRICA) 75 mg capsule Indications:Fibromyalgia,Back pain with history of spinal surgery,Status post lumbar spinal fusionTake 1 capsule by mouth three times a day for 30 days. 90 capsule Discontinued Active Problems ProblemNoted DateDiagnosed DateLabral tear of hip, fqylxbzauphl24/16/2025 Gastroesophageal reflux oomgoac6802/16/2025Obesity, Class I, BMI 30-34.9002/16/2025 Encounters DateTypeDepartmentCare HatrLpastwfjsfs61/12/2025 10:19 AM EST - 07/22/2025 11:59 PM ESTHospital Encounter Radiology [address] [place] [address] Chronic bilateral low back pain with bilateral sciatica [M54.42, M54.41, G89.29] Discharge Disposition: Home07/22/2025 9:00 AM ESTOffice Visit [facility] [address] [place] [address] Favio Carranza MD Chronic bilateral low back pain with bilateral sciatica (Primary Dx); Sacroiliitis; S/P fusion of sacroiliac joint; Chronic pain juguyvqm39/03/2025 3:00 PM ESTOffice Visit Pain Management [address] [place] [id number] Adarsh Comer MD Diffuse pain (Primary Dx); Chronic pain syndrome; Fibromyalgia; Back pain with history of spinal surgery; Status post lumbar spinal fusion; Chronic left-sided low back pain with left-sided nywcrjoo42/03/2025Telephone Pain Management [id number] [place] [phone] Adarsh Comer MD Ieixqyt8607/13/20257359Ptxxij71/14/2025 Get Medical Advice [facility] [address] [place] [address] Josh Olson MD Back and hip vmzxzk0406/09/2025Telephone [facility] [address] [place] [address] Sulaiman Carroll MD [facility] (Worker's Comp); Post Op05/19/2025 10:30 AM EDTOffice Visit [facility] [address] [place] [address] Sulaiman Carroll MD Acetabular labrum tear, right, subsequent encounter (Primary Dx)05/19/2025Travel 05/05/2025 Get Medical Advice [facility] [address] [place], [place] [id number] Sulaiman Carroll MD Hip crackingfrom Last 3 Months Immunizations ImmunizationAdministration DatesNext Dueinfluenza (IIV3) vaccine, trivalent (AFLURIA, FLULAVAL, FLUVIRIN, FLUZONE)07/14/2019influenza (IIV4) vaccine, age 6 mo - 64 yr, quadrivalent, PF (AFLURIA, FLUARIX, FLULAVAL, FLUZONE)07/07/2022 influenza (ccIIV4) vaccine, age 6+ mo, quadrivalent, PF (FLUCELVAX)07/02/2020 Social History Tobacco UseTypesPacks/DayYears UsedDateSmoking Tobacco: NeverSmokeless Tobacco: Never Tobacco Cessation:Counseling Given: Not Answered Alcohol UseStandard Drinks/WeekCommentsNot Currently0 (1 standard drink = 0.6 oz pure alcohol)PHQ-2AnswerDate RecordedPHQ-2 vtakb253rea Deprivation IndexAnswerDate RecordedNational Score (1-100), lower number is lower risk78 12/15/2024State Score (1-10), lower number is lower ykzm01712/15/2024Data from: https://www.neighborhoodatlas.medicine[facility].edu/. Last address used for nvxdurtkkbp[address]12/15/2024CommentsNoSex and Gender InformationValue Date RecordedSex Assigned at FidxvJouvgk61/01/2025 12:54 PM ESTLegal SexFemale 10/11/2024 12:53 PM ESTGender RcsejijwYoxlmx27/01/2025 12:54 PM ESTSexual VewhbvgdigoWbshewbj12/02/2025 8:56 AM EDT Last Filed Vital Signs Vital SignReadingTime TakenCommentsBlood Vtotlvun597/7607/22/2025 8:49 AM EST Ubban426807/22/2025 8:49 AM SPTIjpbgnredtk00.4 ??C (97.5 ??F)02/23/2025 12:00 PM EDTRespiratory Ayzo179609/21/2024 8:49 AM ESTOxygen Gklxptgpnn964%07/22/2025 8:49 AM ESTInhaled Oxygen Concentration--Eykunx24.5 kg (195 lb)07/22/2025 8:49 AM EST Mtyhbf146.9 cm (5' 3.75 )07/22/2025 8:49 AM ESTBody Mass Index33.7307/22/2025 8:49 AM EST Plan of Treatment DateTypeDepartmentCare Team (Latest Contact Info)Xbpeqnbnujc85/06/2026 1:45 PM ESTOffice Visit [facility] [address] [place] [address] Sulaiman Carroll MD [address] [place] [address] Rt hip f/u DOS 02/23/2502 11:00 AM ESTOffice Visit Pain Management [address] [place] [address] Margaret Glaser PA-C [address] [place] [address] 3 month bxldtc4111/11/2025 3:00 PM ESTOffice Visit [facility] [address] [place] [address] Favio Carranza MD [address] [place] [address] 3 month follow up12/09/2025 9:00 AM EDTOffice Visit [facility] [address] [place] [address] Tere Haynes, REBECCA [address] [place] [address] Chronic bilateral low back pain with bilateral sciatica [M54.42, M54.41, G89.29]; Sacroiliitis [M46.1]; S/P fusion of sacroiliac joint [Z98.1]; Chronic pain syndrome [G89.4]Health MaintenanceDue DateLast DoneCommentsAnxiety Jnygzaixf30/01/2003Depression Pytsasoak84/01/2003HIV Xfsgpbneq67/01/2003 Hepatitis C Mbbuzrjrn77/01/2003DTaP,Tdap,Td Vaccine (1 - Tdap)01/09/2004 Hepatitis B Vaccine (1 of 3 - 19+ 3-dose series)01/09/2004Cervical Cancer Glfmzgfwx65/01/2006HPV Vaccine (1 - 3-dose SCDM series)01/09/2012Mammogram Ljkgcrmkp39/01/2025Covid-19 Vaccine ( season)/, 02/04/2021Influenza Vaccine (#1), 07/02/2020, 07/14/2019 Medical Devices ImplantedTypeAreaManufacturerDevice IdentifierShelf Expiration DateModel / Serial / LotQ-Fix Knotless All-Suture Dorothy 1.8mm W/1 Ultrabraid Blue Implanted:[facility] - HipSMITH & [id number] / / [id number] Knotless All-Suture Dorothy 1.8mm W/1 Ultrabraid Blue Implanted:Qty: 1 [facility]20[facility] Bone - HipSMITH & [id number] / / [id number] Knotless All-Suture Dorothy 1.8mm W/1 Ultrabraid Blue Implanted:Qty: 1 [facility] Bone - HipSMITH & [id number] / / [id number] Procedures Procedure NamePriorityDate/TimeAssociated DiagnosisCommentsXR LUMBAR MOTION 4V AP/LAT/ FLEX/UPICgcqtgd67/12/2025 10:29 AM EST Chronic bilateral low back pain with bilateral sciatica Sacroiliitis S/P fusion of sacroiliac joint Chronic pain syndrome EXTERNAL GHRFZGA9007/21/2025 11:45 AM EST from Last 3 Months Results * XR LUMBAR MOTION 4V AP/LAT/ FLEX/EXT (07/22/2025 10:29 AM EST)Anatomical RegionLateralityModalityL-spineOtherSpecimen (Source)Anatomical Location / LateralityCollection Method / VolumeCollection TimeReceived Time07/22/2025 10:29 AM EST Impressions 07/22/2025 11:09 AM EST IMPRESSION: Instrumented fusion at L4-5 without hardware-related complication. Anatomic variation at the lumbosacral junction as described. Engineering Programmer: ORLYB ?? Transcribe Date/Time: Jul 22 2025 10:47A [...] flexion or extension views. Procedure Note Provider, [facility] - 07/22/2025 * * *Final Report* * [...] variation at the lumbosacral junction as described. Engineering Programmer: PSCB Transcribe Date/Time: Jul 22 2025 10:47A Dictated by : SUELLEN BERGERON MD This examination was interpreted and the report reviewed and electronically signed by: CONY MILES MD on Jul 22 2025 11:07AM EST Authorizing ProviderResult TypeResult StatusDominic Pelle MDRAD-PAMAFinal Result * EXTERNAL IMAGING (07/21/2025 11:45 AM EST)Anatomical RegionLateralityModality Other Narrative Authorizing ProviderResult TypeResult StatusExternal Provider PA-CRADIOLOGYFinal Result from Last 3 Months Insurance
--- OUTSIDE RECORDS SUMMARY | 2025-07-30 15:52 | XMS_ITS | Clinical Summary ---
Author Organization [facility] Address [id number] [place] [address] Care Team Providers Care Building Superintendent Name Role Phone Kehinde Ivey [employer] INST[employer]ER Primary Care Provider [phone] Allergies Active AllergyReactionsCriticalityNoted AmrwFtvuwuniSkhuueasHluuOwo50/08/2023 Cloth tape, tears skin and welts NalbuphineDizziness,Tramxcsi93/19/2017NalbuphineNausea,Zmhcbidsfos92/05/2022 GnugsrwvCssew51/12/2023 Medications MedicationSigDispense QuantityRefillsLast FilledStart DateEnd DateStatus VIT 91/IRON/FOLIC/DHA ( + DHA ORAL) Take 1 tablet by mouth in the morning.Active esomeprazole (NexIUM) 20 mg capsule Take 1 capsule (20 mg total) by mouth every morning before breakfast.Active naproxen (NAPROSYN) 250 mg tablet Take 1 tablet (250 mg total) by mouth 2 (two) times a day as needed for pain. Active phentermine 37.5 MG capsule Take 1 capsule (37.5 mg total) by mouth once daily.Active fluticasone propionate (FLONASE) 50 mcg/actuation nasal spray Administer 2 sprays into each nostril in the morning. 16 g 4Active multivit-minerals/folic acid (WOMEN'S MULTIVITAMIN GUMMIES ORAL) Take 50 mL by mouth in the morning.Active cyclobenzaprine (FLEXERIL) 10 mg tablet Indications:FibromyalgiaTake 1 tablet (10 mg total) by mouth nightly. 30 tablet 5Active Active Problems ProblemNoted DateDiagnosed DateRaynaud's disease without vyexsflj08/23/2025 Assessment & Plan (10/02/2024 10:16 AM EST): Recommended to discontinue her phentermine if possible and conservative management of her Raynaud's. Threatened labor04/28/2017 Immunizations No known immunizations Family History Medical HistoryRelationNameCommentsBreast cancerMotherRelationNameStatusComments Mother Social History Tobacco UseTypesPacks/DayYears UsedDateSmoking Tobacco: NeverPassive Smoke Exposure: NeverSmokeless Tobacco: Never Tobacco Cessation:Counseling Given: Not Answered Alcohol UseStandard Drinks/WeekCommentsNo0 (1 standard drink = 0.6 oz pure alcohol)ChildcareAnswerDate LoidjgefCwbszygldVztdlwg35/12/2019EmploymentAnswer Date YmzywkhjHoqabmtnmpXtsaknv52/12/2019Hunger ScreeningAnswerDate Recorded Within the past 12 months we worried whether our food would run out before we got money to buy more.Never True10/02/2024Within the past 12 months the food we bought just didn't last and we didn't have money to get more.Never True 10/02/2024CommentsNoSex and Gender InformationValueDate RecordedSex Assigned at BirthNot on fileLegal PpfWwodbm42/06/2015 11:57 AM EDTGender IdentityNot on fileSexual OrientationNot on file Last Filed Vital Signs Vital SignReadingTime TakenCommentsBlood Xcjzjttp129/7410/02/2024 9:46 AM EST Sndqw492510/02/2024 9:46 AM ETSDeqummsudxs73.7 ??C (98 ??F)10/02/2024 9:46 AM EST Respiratory Zecg138010/02/2024 9:46 AM ESTOxygen Qertgljejw49%01/12/2022 6:25 AM EDTInhaled Oxygen Concentration--Ahgqcy37.2 kg (168 lb)10/02/2024 9:46 AM EST Qaduae081.6 cm (5' 4.02 )10/02/2024 9:46 AM ESTBody Mass Index28.8210/02/2024 9:46 AM EST Plan of Treatment Health MaintenanceDue DateLast DoneCommentsDepression Wuvueppgw68/01/1997Adult BMI Follow Up Plan2003DTaP,Tdap and Td Vaccines (1 - Tdap)01/09/2004COVID- 19 Vaccine (3 - 2024- season)/, 02/04/2021Influenza Vaccine , 07/02/2020, 07/14/2019Tobacco Adobjcggk37/08/2026 09/17/2024dult BMI Smyvhyizi26Pap JxewvZagvsmlihmzy48/11/2023 Medical Devices Not on file Insurance Advance Directives * Full Code (Latest Code Status on File) Date ActivatedDate InactivatedComments04/28/2017 10:04 PM8/ 6:43 PM Care Teams Team MemberRelationshipSpecialtyStart DateEnd Date , Kehinde Rivero, [employer]OR INSTALLER [address] [facility] [place] [address] [facility]CP - [facility]01/12/22
--- OUTSIDE RECORDS SUMMARY | 2025-07-30 15:56 | XMS_ITS | CCD ---
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 sources)Chondromalacia of left knee; Translations: [Chondromalacia, left knee]Onset: 043003-63-4900XrzuxyyhHwkjg bone disease and musculoskeletal deformities (2 sources)Segmental and somatic dysfunction; Translations: [Segmental and somatic dysfunction of sacral region]35-62-5336JbnwtmjkPkcnl circulatory disease (2 sources)Raynaud's disease; Translations: [Raynaud's syndrome without gangrene]Onset: 584550-43-3603GuoousrMvqgo circulatory disease (1 source)Low blood ouhlpnfb88-50-7444OiobckcjOgavo circulatory disease (1 source)Orthostatic hypotension; Translations: [Orthostatic hypotension] 61-93-9099EktlalbsWmsds connective tissue disease (2 sources)Pain in saiwed36-70-0168UnoolpcwIxnql connective tissue disease (1 source)Pain in lower kuct54-55-9386JaypvhtwYhwnc connective tissue disease (1 source)Muscle tension pain; Translations: [Myalgia, unspecified site] 37-63-5562CbbtqqqkWqwkx connective tissue disease (3 sources)History of lumbar fusion; Translations: [Arthrodesis status] 69-82-5111ZjrlnwmqCrajs connective tissue disease (1 source)Pain in right arm; Translations: [Pain in right arm]16-27-6682Lanxhowj Other connective tissue disease (4 sources)Arthrodesis status; Translations: [Arthrodesis status]Onset: 10-78-0476RvaottllHjisk ear and sense organ disorders (1 source)Conductive hearing loss, bilateral; Translations: [Conductive hearing loss, bilateral]ChronicOther ear and sense organ disorders (1 source)Mixed conductive and sensorineural hearing loss, bilateral; Translations: [Mixed conductive and sensorineural hearing loss, bilateral] 28-50-6430LatsbnwFupyn ear and sense organ disorders (1 source)Abnormal auditory perception; Translations: [Abnormal auditory perception of both ears]EpisodicOther ear and sense organ disorders (1 source)Bilateral tinnitus; Translations: [Tinnitus of both ears]EpisodicOther ear and sense organ disorders (1 source)Bullous myringitis of left ear; Translations: [Bullous myringitis, left ear]69-15-4246RisoujwkZnitb ear and sense organ disorders (14 sources)Vkaditeeqw68-04-7335IfjdqvndLoqzx ear and sense organ disorders (1 source)Tinnitus of left ear; Translations: [Tinnitus of left ear]Other endocrine disorders (8 sources)Disorder of endocrine system; Translations: [Endocrine disorder, unspecified]05-82-4840LgtzwjmuMjdtf female genital disorders (1 source)Abnormal uterine bleeding; Translations: [Other specified abnormal uterine and vaginal bleeding]ChronicOther female genital disorders (4 sources)Pain in female genitalia on intercourse; Translations: [Unspecified dyspareunia]85-47-2836VxchszzBhunh female genital disorders (1 source)Vaginal discharge; Translations: [Other specified noninflammatory disorders of vagina]EpisodicOther female genital disorders (2 sources)Cyst of uterine adnexa; Translations: [Unspecified condition associated with female genital organs and menstrual cycle]Onset: 09-11-2023 83-90-3493GaphkvtiUmgpy lower respiratory disease (1 source)Cough; Translations: [Acute cough]35-19-1021EykyynmfIwtyx lower respiratory disease (14 sources)Uctvj68-16-6712ChbovgihUpues lower respiratory disease (14 sources)Kpjzcfo49-23-8080NdcnnyunObszr nervous system disorders (20 sources)Chronic pain syndrome; Translations: [Chronic pain syndrome]Onset: 30-20-1508KjecxyfFejei nervous system disorders (4 sources)Bilateral carpal tunnel syndrome; Translations: [Carpal tunnel syndrome, bilateral upper limbs]34-16-7309LumimekYaiva nervous system disorders (1 source)Carpal tunnel syndrome of right wrist; Translations: [Carpal tunnel syndrome, right upper limb]70-88-7019UbvgfexMsjds nervous system disorders (1 source)Other chronic pain; Translations: [Chronic bilateral low back pain with bilateral sciatica]Onset: 67-82-9656KgtzafpZuimp nervous system disorders (1 source)Chronic pain syndrome; Translations: [Chronic pain syndrome]Onset: 47-71-1443YirqxopRsuep nervous system disorders (1 source)Carpal tunnel syndrome, right upper limb; Translations: [Carpal tunnel syndrome, right upper limb]Onset: 61-74-7775AlgvqhrXglby nervous system disorders (1 source)Carpal tunnel syndrome, bilateral upper limbs; Translations: [Bilateral carpal tunnel syndrome]Onset: 49-90-0247XccxvlaYdcyr nervous system disorders (2 sources)Facial paresthesia; Translations: [Anesthesia of skin]12-03-2024 EpisodicOther nervous system disorders (13 sources)Cold feet; Translations: [Unspecified disturbances of skin sensation]95-28-4791WaerovswRnwwa nervous system disorders (12 sources)Numbness of lower cihy83-78-9341AzupkzjdNqehg nervous system disorders (5 sources)Sensory -83-5153SuuxwvqhXxrpq nervous system disorders (1 source)Other acute postprocedural pain; Translations: [Acute post-operative pain]Onset: 16-82-5094UusmdckmExmye nervous system disorders (3 sources)Post-surgery back erkp50-16-0662ZaxhddsiVxbvf nervous system disorders (1 source)Paresthesia; Translations: [Paresthesia of skin]92-65-5799Fezrwudy Other non-traumatic joint disorders (1 source)Polyarthropathy; Translations: [Polyarthritis, unspecified]08-06-2024 ChronicOther non-traumatic joint disorders (1 source)Pain in left knee; Translations: [Left knee pain, unspecified chronicity]Other nutritional; endocrine; and metabolic disorders (15 sources)Obese class I; Translations: [Obesity, unspecified]Onset: 04-11-2022 98-67-7379DxpdjzzBrihx nutritional; endocrine; and metabolic disorders (20 sources)Metabolic syndrome X; Translations: [Metabolic syndrome]Onset: 18-42-4859YmxenvoSsmoa nutritional; endocrine; and metabolic disorders (18 sources)Obesity; Translations: [Obesity, unspecified]Onset: 03-23-2023 84-73-7800EhessyrGgjig nutritional; endocrine; and metabolic disorders (14 sources)Weight oqra91-89-2440UlngrquxIdotp nutritional; endocrine; and metabolic disorders (2 sources)Body mass index 25-29 - kpaucjfjih64-53-0533DbmkpapqIyktu nutritional; endocrine; and metabolic disorders (2 sources)Overweight in adulthood with body mass index of 25 or more but less than 4465-97-0193JgwbdtjnPjsqm skin disorders (2 sources)Blisters of multiple -61-6451KvpntdbsSixtr skin disorders (1 source)Abnormal foot color; Translations: [Disorder of pigmentation, unspecified]68-94-6787KeoxylrsUnjqj upper respiratory disease (14 sources)Perforation of nasal septum; Translations: [Other specified disorders of nose and nasal sinuses]54-67-1183WtuxqzgaQpntx upper respiratory infections (1 source)Chronic pansinusitis; Translations: [Chronic pansinusitis]01-09-2024 ChronicOther upper respiratory infections (1 source)Viral pharyngitis; Translations: [Acute pharyngitis due to other specified organisms]34-15-2728JlwlzicpStaayh media and related conditions (20 sources)Recurrent acute serous otitis media of right middle ear; Translations: [Acute serous otitis media, recurrent, right ear]Onset: 12-11-2023 EpisodicPeripheral and visceral atherosclerosis (12 sources)Peripheral vascular zvcnnop20-86-0913OjvzlqbTnninruzn by nonmedicinal substances (1 source)Tick bite; Translations: [Tick bite with subsequent removal of tick] EpisodicResidual codes; unclassified (14 sources)Abnormal rapid eye movement -25-5495NsoakdnKgkmbdmk codes; unclassified (14 sources)Obstructive sleep apnea mzfygnuk77-04-9727CexvqpmSmevtdbs codes; unclassified (1 source)Diffuse pain; Translations: [Pain, unspecified]88-99-4856Znhroqbe Residual codes; unclassified (1 source)History of operative procedure on hip; Translations: [Other specified postprocedural states]51-96-9235SyiaemxhYfuhoiate and history of mental health and substance abuse codes (1 source)H/O: attempted suicide; Translations: [History of suicide attempt] 75-38-7444CtmmzkowMmvqgxypfsz; intervertebral disc disorders; other back problems (13 sources)Degeneration of lumbosacral intervertebral disc; Translations: [Other intervertebral disc degeneration, lumbosacral region]Onset: 04-11-2022 42-25-9423SastvqeYfpfsqalaur; intervertebral disc disorders; other back problems (20 sources)Low back pain; Translations: [Lumbar radiculopathy]Onset: 04-06-2022 EpisodicSprains and strains (20 sources)Strain of back muscle; Translations: [Strain of muscle, fascia and tendon of lower back, initial encounter]Onset: 04-12-2018 Resolved: 284034-41-4735LwgwrhqjNhywbhwyluf injury; contusion (1 source)Contusion of face; Translations: [Contusion of other part of head, initial encounter]EpisodicUnclassified (1 source)Injury of left knee; Translations: [Injury of left knee, initial encounter]Unclassified (20 sources)Patient encounter kiirol73-23-2781Qaukzxdrdhmb (2 sources)Upo-wvugni98-33jdyxqo48-10-5566Yjnxdijdvsts (1 source)Ear DrainageOnset: 24-36-7305Bbxldprevoto (1 source)Bollous myringitisOnset: 22-94-0050Zvhazrhbzpyw (6 sources)History of lumbar baxjcl86-00-8544Xwgtxccmbjfy (1 source)Obesity, Class I, BMI 30-34.9; Translations: [Obesity, Class I, BMI 30-34.9]Onset: 96-89-3593Onvmtnlgtsiz (1 source)Other intervertebral disc degeneration, lumbar region with discogenic back pain and lower extremitypain; Translations: [Other intervertebral disc degeneration, lumbar region with discogenic back pain and lower extremity pain] Onset: 06-70-4728Zqrkmctynkxd (1 source)Established PatientOnset: 71-66-5122Qxmht infection (2 sources)Disease caused by 2019-nCoV; Translations: [COVID-19]Episodic Past or Other Problems Problem ClassificationProblemDateDocumented DateEpisodic/ChronicAbdominal pain (20 sources)Abdominal pain; Translations: [Unspecified abdominal pain]Onset: 08-28-2018 Resolved: 620943-85-3974GtyxgfhqWeepmgxx of urinary tract (15 sources)Kidney stone; Translations: [Calculus of kidney]Onset: 03-23-2023 03-14-3800UoppdrmuBvagmk of cervix (15 sources)Cervicovaginal cytology: Low grade squamous intraepithelial lesion; Translations: [Low grade squamous intraepithelial lesion on cytologic smear of cervix (LGSIL)]Onset: 603851-44-0460AndywwarFwegooobqqhrz of surgical procedures or medical care (20 sources)Complication of procedure; Translations: [Unspecified complication of procedure, initial encounter]Onset: 181437-83-6863MdqjrcwvFwhlmzys mellitus without complication (20 sources)Hyperglycemia; Translations: [Impaired fasting glucose]Onset: 510517-20-9128HdidxpfiX Codes: Natural/environment (20 sources)Repetitive motion disorder; Translations: [Overexertion from repetitive movements, initial encounter]Onset: 04-12-2018 Resolved: 740883-71-0420MecfoflqCqxwx or threatened labor (14 sources)Threatened premature labor - not delivered ; Translations: [False labor before 37 completed weeks of gestation, unspecified trimester]Onset: 245014-48-0992CywzjsbyXqctammy; including migraine (8 sources)Tension-type headache; Translations: [Headache disorder]Onset: 398668-18-6105NxnrhsrbIyarzbozxpajp and screening for infectious disease (1 source)Encounter for screening for human papillomavirus (HPV); Translations: [ENC SCREENING HUMAN PAPILLOMAVIRUS]Onset: 91-17-7137UgazmntwBaouiaw and fatigue (19 sources)Fatigue; Translations: [Other fatigue]Onset: EpisodicNonmalignant breast conditions (20 sources)Large breast; Translations: [Hypertrophy of breast]Onset: 04-06-2022 EpisodicOther aftercare (1 source)Follow-up status; Translations: [Encounter for follow-up examination after completed treatment for conditions other than malignant neoplasm]Onset: 822007-66-6575DoopvekxZxpvr aftercare (15 sources)Postoperative visit; Translations: [Encounter for other specified surgical aftercare]Onset: 863996-65-8982DvczhqfwBwjqu bone disease and musculoskeletal deformities (1 source)Disorder of skeletal system; Translations: [Disorder of bone, unspecified]Onset: 09-11-2023 Resolved: 448793-85-0655BifhtjruDpzjr bone disease and musculoskeletal deformities (1 source)Segmental and somatic dysfunction of sacral region; Translations: [Segmental and somatic dysfunction of sacral region]Onset: 39-46-0187Rafqvjhe Other circulatory disease (1 source)Orthostatic hypotension; Translations: [Orthostatic hypotension]Onset: 75-89-4627OgpvliieYakhl connective tissue disease (1 source)H/O: arthritis; Translations: [Personal history of other diseases of the musculoskeletal system andconnective tissue]Onset: 09-11-2023 Resolved: 081224-86-5997EumyiukqMyxxr connective tissue disease (8 sources)Fibromyalgia; Translations: [Fibromyalgia]Onset: EpisodicOther connective tissue disease (3 sources)Fibromyalgia; Translations: [Fibromyalgia]Onset: 01-41-1494Dqvtinen Other connective tissue disease (1 source)Pain in right arm; Translations: [Pain in right arm]Onset: 03-25-2025 EpisodicOther ear and sense organ disorders (1 source)Otorrhea, left ear; Translations: [Otorrhea, left ear]Onset: 71-04-9935KijjekjsDsish ear and sense organ disorders (2 sources)Otorrhea of left ear; Translations: [Otorrhea, left ear]01-09-2024 EpisodicOther female genital disorders (15 sources)Pruritus of vagina; Translations: [Other specified noninflammatory disorders of vagina]Onset: 290894-34-6067QamtwfswGzifd gastrointestinal disorders (15 sources)Constipation; Translations: [Other constipation]Onset: 02-14-2024 40-80-2571KzfyuowqCyrkk injuries and conditions due to external causes (13 sources)Repetitive strain injury; Translations: [Overuse syndrome]Onset: 665342-84-5827GdaqgojzKebpw nervous system disorders (1 source)Anesthesia of skin; Translations: [Anesthesia of skin]Onset: 94-34-9855TjskennfHioug nervous system disorders (2 sources)Paresthesia of skin; Translations: [Paresthesia of skin]Onset: 64-48-6013WepnrhtzCcxye non-traumatic joint disorders (7 sources)Pain in left knee; Translations: [Pain in joint, lower leg]Onset: 422675-62-6831XtvbarwtRbogl non-traumatic joint disorders (20 sources)Hip pain; Translations: [Pain in right hip]Onset: 12-09-2022 82-33-4283ReggxtujIbtuw non-traumatic joint disorders (5 sources)Pain in right knee; Translations: [PAIN IN RIGHT KNEE]Onset: 69-69-5074UgayubbaSuuqd non-traumatic joint disorders (5 sources)Pain in right hip; Translations: [Pain in right hip]Onset: 08-18-2022 EpisodicOther non-traumatic joint disorders (1 source)Pain in left hip; Translations: [Pain in left hip]Onset: 08-18-2022 EpisodicOther screening for suspected conditions (not mental disorders or infectious disease) (20 sources)Patient encounter status; Translations: [Encounter for screening for lipoid disorders]Onset: 53-10-3600CftvsfadUafkm upper respiratory disease (1 source)Other specified disorders of nose and nasal sinuses; Translations: [Other specified disorders of nose and nasal sinuses]Onset: 82-64-0332Bwhtzlwr Other upper respiratory disease (1 source)Nasal congestion; Translations: [Nasal congestion]64-64-2888Bajzoosq Ovarian cyst (15 sources)Complex ovarian cyst; Translations: [Other ovarian cyst, unspecified side]Onset: 975436-94-9229XsjessztVsrsvpww codes; unclassified (20 sources)Postoperative state; Translations: [Other specified postprocedural states]Onset: 08-24-2023 Resolved: 867972-81-6749CrbtrnkwPvhseazu codes; unclassified (3 sources)Other specified postprocedural states; Translations: [Other specified postprocedural states]Onset: 11-41-7536Fplfmsbi Results Test NameValueInterpretationReference RangeFacilityCNCOon 98-03-4371DMFAKrhupg TextNormalCSt. Charles HospitalCNOVon 71-80-9565UDJGYvwaix Visit ([facility]) ASHLEE JALLOH ([id number]) 1985 F Date Time Provider Department 07/22/25 9:00 AM KANDACE CARRANZA [facility] During your visit today, we recorded the following information about you: Pulse Respiration Blood pressure Weight 71/minute 18/minute 112/76 88.5 kg Height 1.619 m Kandace Carranza MD 07/22/2025 10:14 AM Signed SPINE SURGERY NEW PATIENT PCP: No primary care provider on file. REFERRING PROVIDER: No referring provider defined for this encounter. SUBJECTIVE Ashlee Jalloh is a 40-year-old female with chronic back pain, fibromyalgia, and carpal tunnel syndrome presenting for evaluation of persistent and worsening back pain. She is accompanied by a control panel tester who provides additional history. Ashlee reports chronic back pain that began after her first back surgery in 2020. She describes the pain as constant and sharp, with episodes of excruciating pain radiating to her legs and feet, accompanied by numbness. She reports that the pain is aggravated by bending and sneezing while lying down. She also reports difficulty sleeping due to discomfort in any position. She underwent a microdiscectomy for a herniated disc, which initially provided relief. However, she re-herniated the disc about 1.5 months later and subsequently underwent a fusion surgery in 11/2021. Since the fusion, her pain has worsened in [...] tunnel syndrome and is interested in exploring non-surgical treatment options, such as Botox injections, which have been helpful for her father. She recently had an EMG of her arms for carpal tunnel syndrome. She has a history of medication intolerance, including an episode of syncope after taking Flexeril. 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 Tests AND Prior Procedures: - Lumbar fusion (L4-5): Solid [...] joint pseudoarthrosis. - Order upright lumbar spine X-ra (more content not included)...NormalOhiohealth Shelby HospitalXR LUMBAR 4V AP/LAT/ FLEX/EXTon [id number] LUMBAR 4V AP/LAT/ FLEX/EXT* * *Final Report* * * DATE OF [...] abnormal translation on flexion or extension views. IMPRESSION: Instrumented fusion at L4-5 without hardware-related complication. Anatomic variation at the lumbosacral junction as described. Electrician'S Assistant: EDGAR Transcribe Date/Time: Jul 22 2025 10:47A Dictated by : SUELLEN BERGERON MD This examination was interpreted and the report reviewed and electronically signed by: CONY MILES MD on Jul 22 2025 11:07AM EST [id number] [facility]ering[facility] Medicine Office/Clinic Noteon 71-75-0947[facility] Medicine Office/Clinic NoteFafloating hospital for children Medicine Office/Clinic Note HPI Staff Pt is presenting for er follow up ER followup: Hospital: [facility] Visit date: 06/23 and 07/03 Symptoms the patient presented with: back and leg issues. legs feel like they are spongy, jello . Fell on 06/23 due to legs giving out, had to get help getting up and could not feel left leg. doctorsaid that leg was continually spasming. Did x-ray to check bones. 07/03 legs started feeling the same way as they did the first time she fell, went to er before having a fall. Did mri, said there were issues with discs and maybe that could be causing nerve compression Current concerns: leg still spasming, is not sleeping well because of this. Back is hurting again. sees new spine surgeon next week PHQ: 22 Would like to discuss going back on weight management.Did well on Adipex a few years ago. History of Present Illness pt would like to restart adipex Review of Systems PHQ Score Initial Depression Screen Score: 4 SCORE Detailed Depression Screen Score: 18 Total Depression Screen Score: 22 General: alert, no acute distress ENMT: oral mucosa moist, no pharyngeal erythema or exudate Cardiovascular: regular rate and rhythm, normal peripheral perfusion Respiratory: Lungs CTA, respirations non labored Extremities: no deformity, no trauma Neurological: oriented x 4, LOC appropriate for age, CN II-XII intact, motor strength equal & normal bilaterally, speech normal Physical Exam Vitals & Measurements T: 36.6 ???C(Temporal Artery) HR: 91(Peripheral) RR: 18 BP: 110/80 SpO2: 98% HT: 63 in HT: 161 cm WT: 88.9 kg WT: 195.991 lb BMI: 34.3 Assessment/Plan 1. Encounter for weight management (Z76.89: Persons encountering health services in other specifiedcircumstances) pt presents today to discuss starting back on Adipex-P. pt was recently seen in [facility] for leg and back issues. she is scheduled to see [facility] neurosurgery next week. med agreement signed,. OARRS reviewed. all questions answered. RTC 4 weeks Ordered: phentermine, 37.5 mg = 1 tab(s), Oral, Daily, # 30 tab(s), Refills(s) 0, Pharmacy: [facility] [id number], 161, cm, 07/15/25 13:55:00 EST, Height/Length Dosing, 88.9, kg, 07/15/25 13:55:00 EST, Weight Dosing 2. BMI 34.0-34.9,adult (Z68.34: Body mass index [BMI] 34.0-34.9, adult) BMI education given Ordered: phentermine, 37.5 mg = 1 tab(s), Oral, Daily, # 30 tab(s), Refills(s) 0, Pharmacy: [facility] [id number], 161, cm, 07/15/25 13:55:00 EST, Height/Length Dosing, 88.9, kg, 07/15/25 13:55:00 EST, Weight Dosing 3. Class 1 obesity due to excess calories in adult (E66.811: Obesity, class 1) see above. will start adipex Ordered: phentermine, 37.5 mg = 1 tab(s), Oral, Daily, # 30 tab(s), Refills(s) 0, Pharmacy: [facility] [id number], 161, cm, 07/15/25 13:55:00 EST, Height/Length Dosing, 88.9, kg, 07/15/25 13:55:00 EST, Weight Dosing 4. Recurrent severe major depressive disorder co-occurrent with anxiety (F33.2: Major depressive disorder, recurrent severe without psychotic features) pt has tried multiple meds and does not do well on them. does go to counseling. struggles with PTSDand depression Ordered: phentermine, 37.5 mg = 1 tab(s), Oral, Daily, # 30 tab(s), Refills(s) 0, Pharmacy: [facility] [id number], 161, cm, 07/15/25 13:55:00 EST, Height/Length Dosing, 88.9, kg, 07/15/25 13:55:00 EST, Weight Dosing Follow-up No qualifying data available Problem List/Past Medical History Ongoing Abnormal rapid eye movement sleep Allergies Anemia Angiolipoma of right kidney Blisters of multiple sites Brain fog Cold feet Daytime somnolence Encounter for weight [...] mg= 1 tab(s), Oral, Daily, Not taking phentermine 37.5 mg Tab, 37.5 mg= 1 tab(s), Oral, Daily pregabalin 50 mg Cap, 75 mg, Oral, TID Allergies Nubain (Nausea) Silicone (simethicone) obsolete (Hives) Social H (more content not included)...[facility] HospitalComment on above:Result Comment: Electronically Signed By: Lidia Jones\.br\Date and Time Signed: 07/15/25 15:04 ESTProvider Letteron [id number] Letter Provider Letter July 15, 2025 ASHLEE JALLOH [address] [place] [id number] : 1985 To Whom It May Concern, Please excuse above patient from work. Date of Illness: 07/15/2025 May Return to Work On: 07/16/2025 Sincerely, [address] [address] EopjloRzzmqb [facility]itus Medical CenterCNCOon 26-69-4506NTILVhohmg [facility] West CampusCNOVon 25-48-5651DOTFSzhgbe Visit (PENNIE) ASHLEE JALLOH ([id number]) 1985 F Date Time Provider Department 07/13/25 3:00 PM RISHABH HUANG During your visit today, we recorded the following information about you: Pulse Blood pressure 79/minute 128/79 Rishabh Huang MD 07/13/2025 3:44 PM Signed [facility] Pain Management Department Follow-Up Evaluation Chief Complaint: Patient presents with: Established Patient The patient is accompanied by spouse. SUBJECTIVE Ashlee Jalloh, is a 40 year old with No past medical history on file. Chief Complaint: Patient presents with: Established Patient . Intensity of pain: 7 on a scale of 0-10. Duration of pain: 3 Weeks ago. The pain is located Back Pain Description: Continuous Aching, Pulsating, Spasm Alleviating Factors: Medication, Reposition, Relaxation Ashlee Jalloh reports that her pain is worse. Her function is worse. Pain score today: 7/10 Past and current medications: lyrica Information copied and pasted from last visit to Pain Management Yessica Glaser 04/06/25 HPI: Recording using [employer] software for draft documentation of the visit was discussed with the patient/authorized inside outside sales representative; all questions welcomed and answered. Patient/authorized inside outside sales representative agreed to proceed Ashlee Jalloh is [...] bowel or bladder control, or dizziness. ASSESSMENT AND PLAN: # Fibromyalgia (M79.7) Currently on Lyrica [...] flexion-extension X-ray in August 2023 showed no (more content not included)...NormalOhiohealth Shelby HospitalCNPNon [id number] Telephone (MELISSAAVN) ASHLEE JALLOH ([id number]) 1985 F Date Time Provider Department 07/13/25 RISHABH HUANG During your visit today, we recorded the following information about you: Ashlee Jerry RN 07/13/2025 3:56 PM Signed Received Dvd with MRI Lumbar results. Unable to download into chart. Dvd given back to patient Allergies As of Date: 07/13/2025 Noted Allergy Reaction NALBUPHINE 04/10/2013 5 - Intolerance 11 - Vomiting 14 - Other: See Comments 2 - Rash Comments: Pt vomited after being given Nubain in the past pt states when taking it becamse dizzy and nauseated was pregant had to be rushed back to surgery. ADHESIVE TAPE (ROSINS) 08/17/2023 2 - Rash Comments: Cloth tape, tears skin and welts Date Reviewed: 07/13/2025 Reviewed by: Rishabh Huang MD - Fully Assessed Reason for Visit: Results [95] Prescriptions as of 07/14/2025 - pregabalin (LYRICA) 75 mg capsule Take 1 capsule by mouth three times a day for 90 days. - meloxicam (MOBIC) 15 mg tablet Take 1 tablet by mouth once daily. - acetaminophen (ACETAMINOPHEN EXTRA STRENGTH) 500 mg tablet Take 1 tablet every 6 to 8 hours as needed for pain - docusate sodium (COLACE) 100 mg capsule Take 1 capsule by mouth two times a day. - methocarbamol (ROBAXIN) 500 mg tablet Take 1 tablet every 6 to 8 hours as needed for pain or muscle spasms - ondansetron orally disintegrating (ZOFRAN ODT) 4 mg disintegrating tablet Take 1 tablet by mouth every 8 hours as needed for nausea/vomiting. - Phentermine HCl 37.5 mg tablet Take 37.5 mg by mouth. - esomeprazole (NEXIUM) 20 mg capsule Take 20 mg by mouth once daily. - BASE, PCCA VANPEN crea Apply 1 application to affected area once daily. - ubrogepant (UBRELVY) 100 mg tablet Take 100 mg by mouth once daily as needed. 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 No significant spinal canal stenosis or foraminal impingement. [facility] RIS CONSOLIDATEDEXAMINATION: MRI OF THE LUMBAR SPINE WITHOUT CONTRAST, 06/23/2025 3:42 pm TECHNIQUE: Multiplanar multisequence MRI of the lumbar spine was performed without the administration of intravenous contrast. COMPARISON: 05/28/2023 HISTORY: ORDERING SYSTEM PROVIDED HISTORY: left leg numbness TECHNOLOGIST PROVIDED HISTORY: left leg numbness Decision Support Exception - unselect if not a suspected or confirmed emergency medical condition->Emergency Medical Condition (MA) FINDINGS: For the purposes of this exam there is transitional lumbosacral anatomy with the last lumbar type segment designated as a partially sacralized L5 with rudimentary disc space at L5-S1. BONES/ALIGNMENT: Postoperative changes from posterior lakshmi and pedicle screw fixation with hardware at L4-5. L4-5 intervening intervertebral disc spacers. No suspicious osseous lesion. No acute fracture. SPINAL CORD: The conus terminates normally. SOFT TISSUES: No paraspinal mass identified. L1-L2: There is no significant disc herniation, spinal canal stenosis or neural foraminal narrowing. L2-L3: Small disc bulge. Spinal canal and neural foramina patent. L3-L4: Small disc bulge. Facet hypertrophy. Spinal canal and neural foramina patent. L4-L5: Postoperative changes including posterior decompression. Spinal canal and neural foramina patent. L5-S1: Transitional segment with rudimentary disc. No disc herniation or stenosis. Kali Garcia MD - 06/23/2025 EXAMINATION: MRI OF THE LUMBAR SPINE WITHOUT CONTRAST, 06/23/2025 3:42 pm TECHNIQUE: Multiplanar multisequence MRI of the lumbar spine was performed without the administration of intravenous contrast. COMPARISON: 05/28/2023 HISTORY: ORDERING SYSTEM PROVIDED HISTORY: left leg numbness TECHNOLOGIST PROVIDED HISTORY: left leg numbness Decision Support Exception - unselect if not a suspected or confirmed emergency medical condition->Emergency Medical Condition (MA) FINDINGS: For the purposes of this exam there is transitional lumbosacral anatomy with the last lumbar type segment designated as a partially sacralized L5 with rudimentary disc space at L5-S1. BONES/ALIGNMENT: Postoperative changes from posterior lakshmi and pedicle screw fixation with hardware at L4-5. L4-5 intervening intervertebral disc spacers. No suspicious osseous lesion. No acute fracture. SPINAL CORD: The conus terminates normally. SOFT TISSUES: No paraspinal mass identified. L1-L2: There is no significant disc herniation, spinal canal stenosis or neural foraminal narrowing. L2-L3: Small disc bulge. Spinal canal and neural foramina patent. L3-L4: Small disc bulge. Facet hypertrophy. Spinal canal and neural foramina patent. L4-L5: Postoperative changes including posterior decompression. Spinal canal and neural foramina patent. L5-S1: Transitional segment with rudimentary disc. No disc herniation or stenosis. IMPRESSION: Postoperative changes at L4-5. No significant spinal canal stenosis or foraminal impingement. [facility]Rad[facility] Study observation (narrative)[facility] Lumbar spine WO contrastOrdered By: Kali Jacome on [id number] Work Phone: MRI LUMBAR SPINE WO CONTRASTon [id number] LUMBAR SPINE WO CONTRASTEXAMINATION: MRI OF THE LUMBAR SPINE WITHOUT CONTRAST, 06/23/2025 3:42 pm TECHNIQUE: Multiplanar multisequence MRI of the lumbar spine was performed without the administration of intravenous contrast. COMPARISON: 05/28/2023 HISTORY: ORDERING SYSTEM PROVIDED HISTORY: left leg numbness TECHNOLOGIST PROVIDED HISTORY: left leg numbness Decision Support Exception - unselect if not a suspected or confirmed emergency medical condition->Emergency Medical Condition (MA) FINDINGS: For the purposes of this exam there is transitional lumbosacral anatomy with the last lumbar type segment designated as a partially sacralized L5 with rudimentary disc space at L5-S1. BONES/ALIGNMENT: Postoperative changes from posterior lakshmi and pedicle screw fixation with hardware at L4-5. L4-5 intervening intervertebral disc spacers. No suspicious osseous lesion. No acute fracture. SPINAL CORD: The conus terminates normally. SOFT TISSUES: No paraspinal mass identified. L1-L2: There is no significant disc herniation, spinal canal stenosis or neural foraminal narrowing. L2-L3: Small disc bulge. Spinal canal and neural foramina patent. L3-L4: Small disc bulge. Facet hypertrophy. Spinal canal and neural foramina patent. L4-L5: Postoperative changes including posterior decompression. Spinal canal and neural foramina patent. L5-S1: Transitional segment with rudimentary disc. No disc herniation or stenosis. IMPRESSION: Postoperative changes at L4-5. No significant spinal canal stenosis or foraminal impingement. Interpreted by: Kali Jacome MD Signed by: Kali Jacome MD 06/23/25 Final resultNormalMerVeterans Administration Medical Center [id number] (ORQ) ASHLEE JALLOH ([id number]) 1985 F Date Time Provider Department 06/09/25 DENIZ ENCARNACION During your visit today, we recorded the following information about you: Torito Rosa 06/09/2025 3:42 PM Signed Pnt called office stating she is post op and fell at work- will be [facility] now however pnt doesn't have any [facility] claim info or account. I offered to make pnt appt under her ins to be seen and evaluated however pnt opted to wait to get [facility] info and account set up Torito Rosa 06/09/2025 3:51 PM Signed Angella Garcia; Noemi Francis, AT; [facility] Forms2 minutes ago (3:48 PM) BK We have no FROI on file, patient would have to file a FROI with her employer and once it is filed, she will have to give us all the claim information. Thank you! Nilsa Allergies As of Date: 06/09/2025 Noted Allergy Reaction NALBUPHINE 04/10/2013 5 - Intolerance 11 - Vomiting 14 - Other: See Comments 2 - Rash Comments: Pt vomited after being given Nubain in the past pt states when taking it becamse dizzy and nauseated was pregant had to be rushed back to surgery. ADHESIVE TAPE (ROSINS) 08/17/2023 2 - Rash Comments: Cloth tape, tears skin and welts Date Reviewed: 05/19/2025 Reviewed by: Akin Jimenez MA - Fully Assessed Reason for Visit: [facility] (Worker's Comp) [4136] Post Op [174] Prescriptions as of 06/09/2025 - meloxicam (MOBIC) 15 mg tablet Take 1 tablet by mouth once daily. - pregabalin (LYRICA) 75 mg capsule Take 1 capsule by mouth three times a day for 30 days. - acetaminophen (ACETAMINOPHEN EXTRA STRENGTH) 500 mg tablet Take 1 tablet every 6 to 8 hours as needed for pain - docusate sodium (COLACE) 100 mg capsule Take 1 capsule by mouth two times a day. - methocarbamol (ROBAXIN) 500 mg tablet Take 1 tablet every 6 to 8 hours as needed for pain or muscle spasms - ondansetron orally disintegrating (ZOFRAN ODT) 4 mg disintegrating tablet Take 1 tablet by mouth every 8 hours as needed for nausea/vomiting. - Phentermine HCl 37.5 mg tablet Take 37.5 mg by mouth. - esomeprazole (NEXIUM) 20 mg capsule Take 20 mg by mouth once daily. - BASE, PCCA VANPEN crea Apply 1 application to affected area once daily. - ubrogepant (UBRELVY) 100 mg tablet Take 100 mg by mouth once daily as needed. 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 Charles HospitalXR HIP RIGHT (2-3 VIEWS)on [id number] HIP RIGHT (2-3 VIEWS) EXAMINATION: TWO XRAY VIEWS OF THE RIGHT HIP 06/04/2025 12:55 pm COMPARISON: None. HISTORY: ORDERING SYSTEM PROVIDED HISTORY: Sprain of right hip, initial encounter TECHNOLOGIST PROVIDED HISTORY: slip and near fall with abduction of right hip Reason for Exam: right hip injury from almost falling SYSTOC ORDER ID:->[id number] FINDINGS: The hip demonstrates normal alignment. No evidence of acute fracture. No focal osseus lesion. Pelvis is intact. IMPRESSION: No acute abnormality of the hip. Interpreted by: Matti Cyr DO Signed by: Matti Cyr DO 06/08/25 Final resultNormalMercy Milford HospitalCOon [id number] TextNormal [facility] HospitalCNOV [id number] Visit ([facility] ASHLEE JALLOH ([id number]) 1985 F Date Time Provider Department 05/19/25 10:30 AM DENIZ ENCARNACION [facility] During your visit today, we recorded the following information about you: Deniz Encarnacion MD 05/19/2025 11:03 AM Signed DEPARTMENT OF ORTHOPAEDICS Chief Complaint: Right hip pain Patient returns for follow up of right hip pain. Last seen 04-10-25. Patient reports no interim trauma. Reports about 3 weeks ago she started to experience an increase in right hip pain accompanied by mechanical symptoms. She states she has been graduated from formal PT. PHYSICAL EXAM: There were no vitals taken for this visit. General: Appears stated age, well built, in no apparent distress. Psychiatric: Mood and affect appropriate. Alert and oriented x 3 without evidence of abnormal respiratory effort. Musculoskeletal Exam: Gait normal, Posture: erect and normal. Exam: Right Left Single Leg Trendelenburg Negative Negative Hip flexion 100 100 IR 10 10 ER 40 50 Anterior impingement positive negative Dynamic labral stress negative negative DOROTHY positive (LOM) negative Posterior Impingement negative negative SRIDHAR negative negative Strength Supine HF 5/5 5/5 Upright HF 5/5 5/5 Adduction 5/5 5/5 Abduction 5/5 5/5 Tenderness with Palpation: Right Left Greater Troch Negative Negative Gluteus Medius Negative Negative Piriformis Negative Negative IMPRESSION: (S73.953S) Acetabular labrum tear, right, subsequent encounter (primary encounter diagnosis) PLAN: 1. Medication: Mobic 15mg PO q Day with meals x 3 weeks then PRN 2. Test(s)/Imaging/Referral(s): None. 3. Intervention: Continue conservative treatment. Discussed the role of oral NSAID's and working on her Dorothy ROM which was very tight today. Discussed that the anticipation of her symptoms improving once this motion improves as well. Discussed the role for a hip injection in about 6 weeks if she is not turning the corner. RTW letter provided with her returning next Sunday with restrictions - max 10 pound lifting, avoid bending, squatting. Patient is on board with the plan and all questions were answered. They will let us know if there are any issues in the interim. 4. Follow-up: Return in about 3 months (around 08/18/2025). Scribe Attestation: By signing my name below, I, Noemi RODNEY Gordon, attest that this documentation has been prepared under the direction and in the presence of Deniz Encarnacion M.D. Electronically Signed:RODNEY Rodríguez, May 19, 2025 10:57 AM I agree with the Chief Complaint, ROS, and Past Histories independently gathered by the clinical program support assistant and the remaining scribed note accurately describes my personal service to the patient. Deniz Encarnacion MD Referring Provider: DENIZ ENCARNACION [[id number]] Allergies As of Date: 05/19/2025 Noted Allergy Reaction NALBUPHINE 04/10/2013 5 - Intolerance 11 - Vomiting 14 - Other: See Comments 2 - Rash Comments: Pt vomited after being given Nubain in the past pt states when taking it becamse dizzy and nauseated was pregant had to be rushed back to surgery. ADHESIVE TAPE (ROSINS) 08/17/2023 2 - Rash Comments: Cloth tape, tears skin and welts Date Reviewed: 05/19/2025 Reviewed by: Akin Jimenez MA - Fully Assessed Reason for Visit: Post Op [174] Primary Visit Diagnosis:Acetabular labrum tear, right, subsequent encounter [S73.629D] Order(s):meloxicam (MOBIC) 15 mg tabletTake 1 tablet by mouth once daily.Disp: 30 tabletRfl: 1 Prescriptions as of 05/19/2025 - meloxicam (MOBIC) 15 mg tablet Take 1 tablet by mouth once daily. - pregabalin (LYRICA) 75 mg capsule Take 1 capsule by mouth three times a day for 30 days. - acetaminophen (ACETAMINOPHEN EXTRA STRENGTH) 500 mg tablet Take 1 tablet every 6 to 8 hours as needed for pain - docusate sodium (COLACE) 100 mg capsule Take 1 capsule by mouth two times a day. - methocarbamol (ROBAXIN) 500 mg tablet Take 1 tablet every 6 to 8 hours as needed for pain or muscle spasms - ondansetron orally disintegrating (ZOFRAN ODT) 4 mg disintegrating tablet Take 1 tablet by mouth every 8 hours as needed for nausea/vomiting. - Phentermine HCl 37.5 mg tablet Take 37.5 mg by mouth. - esomeprazole (NEXIUM) 20 mg capsule Take 20 mg by mouth once daily. - BASE, PCCA VANPEN crea Apply 1 application to affected area once daily. - ubrogepant (UBRELVY) 100 mg tablet Take 100 mg by mouth once daily as needed. 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 Disposition: Return in ab (more content not included)...NormalDo[facility] LDHon [id number] [Catalytic activity/Vol]147 U/L81 - 234 U/LNOMS HealthcareCLINISYNCNOMS HealthcareUS PELVIS W/ TRANSVAGINALon 51-33-9150[place] [address] Ultrasound Report Signed Patient: ASHLEE JALLOH MR#: [id number] : 1985 Acct:[id number] Age/Sex: 40 / F ADM Date: 05/07/25 Loc: US Attending Dr: Tommie Mccann D.O. Ordering Physician: Tommie Mccann D.O. Date of Service: 05/07/25 Procedure(s): US pelvis w/ transvaginal Accession Number(s): [id number] cc: Tommie Mccann D.O.; LIDIA KEYES [place] [id number] Patient Name: ASHLEE JALLOH MRN: [id number] date: 1985 Sex: F Assigned Patient Location: US Current Patient Location: Accession/Order Number: [id number] Exam Date: 05/07/2025 12:56 Report Date: 05/08/2025 [...] Gonzalez M.D. 05/08/2025 12:41 AM Dictation Location: [place] [address] Electronically authenticated by: [id number] Y Date: 05/08/2025 00:41 Dictated By: Dalton Gonzalez M.D. Signed By: 05/08/25 0044 DD/ 004 TD/TT: Electrician'S Assistant:TBHRadiology, Radiologist, - 05/08/2025 [place] [address] Ultrasound Report Signed Patient: ASHLEE JALLOH MR#: [id number] : 1985 Acct:[id number] Age/Sex: 40 / F ADM Date: 05/07/25 Loc: US Attending Dr: Tommie Mccann D.O. Ordering Physician: Tommie Mccann D.O. Date of Service: 05/07/25 Procedure(s): US pelvis w/ transvaginal Accession Number(s): [id number] cc: Tommie Mccann D.O.; LIDIA KEYES [place] [id number] Patient Name: ASHLEE JALLOH MRN: [id number] date: 1985 Sex: F Assigned Patient Location: US Current Patient Location: Accession/Order Number: [id number] Exam Date: 05/07/2025 12:56 Report Date: 05/08/2025 [...] Gonzalez M.D. 05/08/2025 12:41 AM Dictation Location: [place] [address] Electronically authenticated by: [id number] Y Date: 05/08/2025 00:41 Dictated By: Dalton Gonzalez M.D. Signed By: 05/08/25 0044 DD/ TD/TT: Electrician'S Assistant: NOMS HealthcareRadiology Study observation (narrative)NOMS HealthcareUS PELVIS W/ TRANSVAGINALOrdered By: Radiologist Radiology on 13-03-5061BPAG Healthcare Work Phone: mm TOMOSYNTHESIS SCREENING BIon [id number] [address] Mammography Report Signed Patient: ASHLEE JALLOH MR#: [id number] : 1985 Acct:[id number] Age/Sex: 40 / F ADM Date: 05/07/25 Loc: US Attending Dr: Tommie Mccann D.O. Ordering Physician: Tommie Mccann D.O. Results: Date of Service: 05/07/25 Follow Up: Procedure(s): MM tomosynthesis screening BI Accession Number(s): [id number] cc: Tommie Mccann D.O.; LIDIA KEYES Patient Name: ASHLEE JALLOH MR#: [id number] : 1985 Exam Date: 05/07/2025 Ordering Doctor: [...] breast cancer at age 89. LOCATION: [facility] BREAST COMPOSITION: The breasts are heterogeneously dense, which may obscure small masses. FINDINGS: RIGHT BREAST: No significant suspicious finding. LEFT BREAST: No significant suspicious finding. DIAGNOSTIC CATEGORY 1--NEGATIVE. RECOMMENDATIONS: ROUTINE MAMMOGRAM AND CLINICAL EVALUATION IN 12 MONTHS. Dictated by: Aiden Foote DO on 05/07/2025 at 16:18 Approved by: Aiden Foote DO on 05/07/2025 at 16:19 Dictated By: Aiden Foote D.O. Signed By: 05/07/25 162 DD/ 1619 TD/TT: Electrician'S Assistant:TBHRadiology, Radiologist, - 05/07/2025 [place] [id number] Mammography Report Signed Patient: ASHLEE JALLOH MR#: [id number] : 1985 Acct:[id number] Age/Sex: 40 / F ADM Date: 05/07/25 Loc: US Attending Dr: Tommie Mccann D.O. Ordering Physician: Tommie Mccann D.O. Results: Date of Service: 05/07/25 Follow Up: Procedure(s): MM tomosynthesis screening BI Accession Number(s): [id number] cc: Tommie Mccann D.O.; LIDIA KEYES Patient Name: ASHLEE JALLOH MR#: [id number] : 1985 Exam Date: 05/07/2025 Ordering Doctor: [...] breast cancer at age 89. LOCATION: [facility] BREAST COMPOSITION: The breasts are heterogeneously dense, which may obscure small masses. FINDINGS: RIGHT BREAST: No significant suspicious finding. LEFT BREAST: No significant suspicious finding. DIAGNOSTIC CATEGORY 1--NEGATIVE. RECOMMENDATIONS: ROUTINE MAMMOGRAM AND CLINICAL EVALUATION IN 12 MONTHS. Dictated by: Aiden Foote DO on 05/07/2025 at 16:18 Approved by: Aiden Foote DO on 05/07/2025 at 16:19 Dictated By: Aiden Foote D.O. Signed By: 05/07/25 1620 DD/ 1619 TD/TT: Electrician'S Assistant: KAYLIN HealthcareRadiology Study observation (narrative)[facility] TOMOSYNTHESIS SCREENING BIOrdered By: Radiologist Radiology on [id number] Healthcare Work Phone: ambulatory Visit Summaryon 22-14-5265Mwaxnwyblf Visit SummaryAmbulatory Visit Summary ASHLEE JALLOH :1985 Visit Date:04/30/2025 [...] 2:20 PM EDT With: Lidia Jones Where: [place] [id number]- Medications What How Much When Why Instructions [...] signed up for this yet, please contact [employer] at [phone] to get signed up today. Language Information Language assistance services are available as needed. [facility] Medicine Office/Clinic Noteon 13-28-3044Qmexqr Medicine Office/Clinic NoteFafloating hospital for children Medicine Office/Clinic Note HPI Staff Ashlee is [...] (Z76.89: Persons encountering health services in other specifiedcircumstances) pt presents today for weight management. would like to start Adipex-P. med agreement updated. UDS obtained all negative. will start adipex. RTC 1 month Ordered: phentermine, 37.5 mg = 1 tab(s), Oral, Daily, # 30 tab(s), Refills(s) 0, Pharmacy: [facility] [id number], 161, cm, 04/30/25 13:28:00 EDT, Height/Length Dosing, 88.8, kg, 04/30/25 13:28:00 EDT, Weight Dosing Drug Screen POC 02696 2. Nonsmoker (Z78.9: Other specified health status) continue not smoking Ordered: phentermine, 37.5 mg = 1 tab(s), Oral, Daily, # 30 tab(s), Refills(s) 0, Pharmacy: [facility] [id number], 161, cm, 04/30/25 13:28:00 EDT, Height/Length Dosing, 88.8, kg, 04/30/25 13:28:00 EDT, Weight Dosing 3. BMI 34.0-34.9,adult (Z68.34: Body mass index [BMI] 34.0-34.9, adult) BMI education Ordered: phentermine, 37.5 mg = 1 tab(s), Oral, Daily, # 30 tab(s), Refills(s) 0, Pharmacy: [facility] [id number], 161, cm, 04/30/25 13:28:00 EDT, Height/Length Dosing, [...] Tobacco Use:. Never Smokeless Tobacco Use:. Cigarettes, Householdtobacco concerns: No. Yes, 04/30/2025 Family History Patient [...] 13:54:00) THC Result POC: (more content not included)...[facility] Comment on above:Result Comment: Electronically Signed By: Lidia Jones\.br\Date and Time Signed: 04/30/25 13:59 EDTAmbulatory Visit Summaryon 62-86-4823Dkhwrbjosg Visit SummaryAmbulatory Visit Summary ASHLEE JALLOH :1985 Visit Date:04/14/2025 [...] 1:20 PM EDT With: Lidia Jones Where: [place] [address]- Medications What How Much When Why Instructions [...] signed up for this yet, please contact [employer] at [phone] to get signed up today. Language Information Language assistance services are available as needed. [facility] Medicine Office/Clinic Noteon [id number] Medicine Office/Clinic NoteFafloating hospital for children Medicine Office/Clinic Note Chief Complaint The patient presents with left ear hearing loss and recurrent ear infections. HPI Staff Aslhee is a 40 year old female presenting [...] antibiotic treatments. Past infections have included a strepinfection with bursitis-like symptoms in the ear. Review of Systems PHQ Score Initial Depression Screen Score: 0 SCORE - Ears: Reports left ear hearing loss and green, malodorous discharge. Denies recent water exposureor air travel. - Respiratory: Denies recent respiratory [...] Acute serous otitis media, left ear) Ordered: amoxicillin-clavulanate, 1 tab(s), Oral, q12hr for 7 day(s), 14 tab(s), Refill(s) 0, [facility] [id number], 161, cm, 04/14/25 10:52:00 EDT, Height/Length Dosing, 87, kg, 04/14/25 10:52:00 EDT, Weight Dosing ciprofloxacin-dexamethasone otic, 4 drop(s), Otic, BID for 7 day(s), 7.5 mL, Refill(s) 0, Instill in the left ear, [facility] [id number], 161, cm, 04/14/25 10:52:00 EDT, Height/Length Dosing, 87, kg, 04/14/25 10:52:00 EDT, Weight Dosing 2. Left ear hearing loss (H91.92: Unspecified hearing loss, left ear) - Continue with oral antibiotics and ear drops as needed for recurrent infections. Ordered: amoxicillin-clavulanate, 1 tab(s), Oral, q12hr for 7 day(s), 14 tab(s), Refill(s) 0, [facility] [id number], 161, cm, 04/14/25 10:52:00 EDT, Height/Length Dosing, 87, kg, 04/14/25 10:52:00 EDT, Weight Dosing ciprofloxacin-dexamethasone otic, 4 drop(s), Otic, BID for 7 day(s), 7.5 mL, Refill(s) 0, Instill in the left ear, [facility] [id number], 161, cm, 04/14/25 10:52:00 EDT, Height/Length Dosing, 87, kg, 04/14/25 10:52:00 EDT, Weight Dosing 3. BMI 33.0-33.9,adult (Z68.33: Body mass index [BMI] 33.0-33.9, adult) BMI 33.56 Ordered: amoxicillin-clavulanate, 1 tab(s), Oral, q12hr for 7 day(s), 14 tab(s), Refill(s) 0, [facility] [id number], 161, cm, 04/14/25 10:52:00 EDT, Height/Length Dosing, 87, kg, 04/14/25 10:52:00 EDT, Weight Dosing ciprofloxacin-dexamethasone otic, 4 drop(s), Otic, BID for 7 day(s), 7.5 mL, Refill(s) 0, Instill in the left ear, [facility] [id number], 161, cm, 04/14/25 10:52:00 EDT, Height/Length Dosing, [...] medical support in addressing this problem. Your BMIand weight management will be followed at subsequent visits. Ordered: amoxicillin-clavulanate, 1 tab(s), Oral, q12hr for 7 day(s), 14 tab(s), Refill(s) 0, [facility] [id number], 161, cm, 04/14/25 10:52:00 EDT, Height/Length Dosing, 87, kg, 04/14/25 10:52:00 EDT, Weight Dosing ciprofloxacin-dexamethasone otic, 4 drop(s), Otic, BID for 7 day(s), 7.5 mL, Refill(s) 0, Instill in the left ear, [facility] [id number], 161, cm, 04/14/25 10:52:00 EDT, Height/Length Dosing, 87, kg, 04/14/25 10:52:00 EDT, Weight Dosing (more content not included)...[facility] HospitalComment on above: Result Comment: Electronically Signed By: ELIZBAETH APODACA CNP\marisabel\Date and Time Signed: 04/14/25 11:15 EDTCUmesh 95-44-4334VLVUAgbysi Visit (PENNIE) ASHLEE JALLOH ([id number]) 1985 F Date Time Provider Department 04/06/25 [...] and touch sensitivity, particularly (more content not included)...NormalTr[facility](NEURO/NI)on 96-41-9887Hjksxqt can be seen in attached scanned documents. If you are a patient reviewing this test result, call the doctor who ordered the test with any questions. [facility] INSTITUTEMemorial HospitalCNOVon 69-35-4800TGPABbhlmu Visit (SPHTB) ASHLEE JALLOH ([id number]) 1985 F Date Time Provider Department 03/10/25 1:30 PM MADYSON VILLAFUERTE SPH During your visit today, we recorded the following information about you: Delia Mckeon LPN 03/10/2025 4:27 PM Signed Three sutures removed for two incisions anterior hip. Pt tolerated. No redness no drainage noted to incisions. New steri strips applied. Madyson Villafuerte, MELVIN 03/10/2025 4:27 PM Signed Post Op Follow Up Visit Ashlee Jalloh returns 15 days s/p 1. right hip arthroscopy 2. Labral repair CPT 17257 3. Femoroplasty CPT 49915 4. Acetabuloplasty CPT 84867 5. Capsular Closure DOS: 02/23/25 Denies interim injury or trauma Brace intact Weight bearing: partial with 2 crutches Post op medication usage: Naproxen consistent use tolerating well Opioid took 1 tablet Muscle relaxant effective Physical therapy going well PAIN EVALUATION 03/03/2025 2157 03/10/2025 1320 Pain Level: 6 2 Pain Location: Back-Lower Hip-Right Description: Aching;Dull;Numbness;Shooting;Sore;Stabbing/Not Incision;Stiffness;Throbbing Sore;Aching Duration Amount of Time: 12 2 Duration Units: Months Weeks Frequency: Continuous Intermittent Intervention/Comfort measure: Medication;Relaxation;Cold;Heat;Massage;Pillow support Exercise PT Review of Symptoms: General: [...] clipping in) - can (more content not included)...[facility]St[facility] 05-84-3125XCCFTevotw Visit (SPNMMN) ASHLEE JALLOH ([id number]) 1985 F Date Time Provider Department 03/04/25 10:40 AM JOHNATHAN HAAS SPNEMN During your visit today, we recorded the [...] mg by mouth once daily as needed. Fmzus-5-HHN-EPA-Fish Oil (FISH OIL) 1,000 (120-180) mg cap [...] changes of posterior fusion (more content not included)...Normal [facility] HospitalCNPNon 50-10-7022PDNNDmovyahoq (ORQ) SHUBHAMASHLEE NOLAN ([id number]) 1985 F Date Time Provider Department 02/26/25 DENIZ ENCARNACION During your visit today, we recorded the following information about you: Torito Rosa 02/26/2025 2:44 PM Signed Pnt lvm [...] times a day for 90 days. - Qmdef-0-LWH-EPA-Fish Oil (FISH OIL) 1,000 (120-180) mg cap [...] 02/23/2025 Encounter Status:Closed by NOEMI FRANCIS on 02/26/25[facility] POSTPROC EVALon [id number] POSTPROC EVALHNO ID: [id number] Author: JAS YIP III, MD Service: Anesthesiology Author Type: Anesthesiologist Type: Anesthesia Postprocedure Evaluation Filed: 02/23/2025 16:28 Note Text: POST ANESTHESIA EVALUATION NOTE : 1985 Procedure Summary Date: 02/23/25 Room / Location: [place] [address] / [facility] Anesthesia Start: 733 Anesthesia Stop: 929 [...] February 23, 2025 TIME: 4:28 PM CSN: [id number] Health Administration PRE-OPon [id number] PRE-OPHNO ID: [id number] Author: JAS YIP III, MD Service: Anesthesiology Author Type: Anesthesiologist Type: Anesthesia Preprocedure Evaluation Filed: 02/23/2025 07:16 Note Text: ANESTHESIOLOGY DAY OF SURGERY NOTE : 1985 Procedure Information Date/Time: 02/23/25 0730 Procedure: ARTHROSCOPY HIP W/ LABRAL REPAIR (Right: [...] results: No results found for this basename: HCT,HEMATOCRIT,K,POTASSIUM Relevant Problems GI (+) Gastroesophageal reflux disease I - PHYSICAL EVALUATION AIRWAY Patient intubated: No. Tracheostomy tube not present Mallampati: I. TM distance: >3 FB. Neck ROM: full ROM without neurological symptoms. Mouth opening: adequate. Short neck: no. Thick neck: no Leary present: no Microretrognathia/Micronagthia/Recessed Chin: No DENTAL Dental findings: teeth intact. [...] times a day for 90 days. - Bixpz-6-TJG-EPA-Fish Oil (FISH OIL) 1,000 (120-180) mg cap [...] February 23, 2025 TIME: 7:16 AM CSN: [id number] Township District Memorial Hospital PHYSICALon [id number] PHYSICALHNO ID: [id number] Author: DENIZ ENCARNACION MD Service: Orthopaedic Surgery [...] Jalloh DATE: February 23, 2025 TIME: 6:44 [facility] CenterNURSING PROGon [id number] PRONO ID: [id number] Author: NIKIA MARK RN Service: Nursing Author Type: Registered Nurse Type: Nursing Progress Note Filed: 02/23/2025 10:44 Note Text: Patient beginning to wake up and attempting to spit out oral airway. Oral airway removed at this time and patient tolerating well. Vital signs stable, will continue to monitor.[facility] ID: [id number] Author: NIKIA MARK RN Service: Nursing Author [...] Signed By: Nikia Mark RN In Department: [facility] ID: [id number] Author: WEI TAYLOR RN Service: ? Author [...] Signed By: Wei Taylor RN [facility] NOon 02-23-2025 OPERATIVE NOHNO ID: [id number] Author: DENIZ ENCARNACION MD Service: Orthopaedic Surgery Author Type: Physician Type: Operative Report Filed: 02/23/2025 09:22 Note Text: [facility] Operative Report ORIGINATOR: Deniz Encarnacion MD Ashlee Jalloh ACCTNUM: SERVICE: [id number] ATTENDING PHYSICIAN: Deniz Encarnacion MD DATE OF PROCEDURE: February 23, 2025 SURGEON: Deniz Encarnacion MD BENCH MOLDER: Elmer Edwards MD PREOPERATIVE DIAGNOSIS: Right hip acetabular labral tear 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 right hip arthroscopy 2. Labral repair CPT 66856 3. Femoroplasty CPT 49642 4. Acetabuloplasty CPT 85842 5. Capsular Closure ANESTHESIA: General LOCATION: [facility] [place]. OPERATIVE INDICATIONS: The patient is a pleasant [...] The patient was brought to [facility] operative suite 6 on February [...] team, confirming the site and extremity, ensuring receptionist airline lounge of 2gm of IV Ancef, the hip [...] None. FLUIDS: See anesth (more content not included)...[facility] IGP,APTIMA HPV,AGE GDLNon 58-17-2098BPO LN AC TESTINGNote.[facility] Comment on above:TESTS RESULT FLAG UNITS REF RANGE LAB Clinician Provided Cytology Information Source.............Vagina No. of containers..01 ThinPrep Vial Age Luis F BROOKS Erika... FLAG LEGEND: L-Low Normal,H-High Normal,LL-Alert Low,HH-Alert High <-Panic Low,>-Panic High,A-Abnormal,AA-Critical Abnormal Performed at: 01 =[address] [address] Ambar Sandoval MD, HPV APTIMANegativeNegativeNOMS HealthcareComment on above:This nucleic acid amplification test detects fourteen high- risk HPV types (16,18,31,33,35,39,45,51,52,56,58,59,66,68) without differentiation. Performed at: =[address] [id number] Reporter: Ambar Sandoval MD, Phone: [phone] Performed at: [address] [id number] [address] Reporter: Ambar Sandoval MD, Phone: [phone] IGP, APTIMA HPV, RFX 16/18,45Note.NOMS HealthcareComment on above:TESTS RESULT FLAG UNITS REF RANGE LAB DIAGNOSIS: 02 NEGATIVE FOR INTRAEPITHELIAL LESION OR MALIGNANCY. Specimen adequacy: 02 Satisfactory for evaluation. Performed by: 02 Marcella Hernández Automatic Glove Former ([facility]) . 02 Note: Note 02 [...] <-Panic Low,>-Panic High,A-Abnormal,AA-Critical Abnormal Performed at: [address] [address] Ambar Sandoval MD, SPATULA-ALONE VAGINA CLINISYNCNOMS HealthcareHISTORY PHYSICALon [id number] PHYSICALHNO ID: [id number] Author: BLESSING HORVATH PA-C Service: ? Author Type: Physician Rotary Peel Oven Tender Type: H&P Filed: 02/16/2025 08:14 Note Text: [...] Thick neck: no Lip Bite Test: II Microretrognathia/Micronagthia/Recessed Chin: No DENTAL Normal dental observations. Additional [...] per PACC protocol REASON FOR VISIT: Ashlee M Shubham is a 40 year old female who [...] age 12+ yr, monovalent ([employer] [facility]) REVIEW OF SYSTEMS: PAIN ASSESSMENT: General: No weight loss, malaise or fevers. 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 No neurological symptoms or problems. Respiratory: No history of current cough or dyspnea, or pneumonia in the past 6 weeks. No history of respiratory/pulmonary symptoms or problems. Cardiovascular: No history of HTN requiring medication, no history of angina, C (more content not included)...NormalAvon HospitalUrinalysis macro (dipstick) panel (U)on 13-61-9240Aepafmkpz, UANegativeNegative - 4(70) +++ mg/dLNOMS HealthcareBlood, UAPositiveNegative - 50 Stef/mcLNOMS HealthcareComment on above: trace-intactClarity, UAClearNOMS HealthcareColor, UAYellowNOMS Healthcare Glucose, UANegativeNegative - 1999(110) ++++ mg/dLNOMS HealthcareInterpretation and review of laboratory resultsAbnormalNOMS HealthcareKetones, UANegative Negative - 160(16) ++++ mg/dLNOMS HealthcareLeukocytes, UANegativeNegative - 500+++ Scotty/mcLNOMS HealthcareNitrite, UANegativeNegative - PositiveNOMS HealthcarepH, UA6.55 - 9NOMS HealthcareComment on above:6.0Protein, UANegative Negative - 1999(20) ++++ mg/dLNOMS HealthcareSpec Grav, UA1.0251 - 1.03NOMS HealthcareComment on above:1.020Urobilinogen, UA0.20.2 - 12 mg/dLNOMS Healthcare NOMS HealthcareCNPNon 79-05-1665OIVFHlgopvncd (ORQ) ASHLEE JALLOH ([id number]) 1985 F Date Time Provider Department 01/16/25 DENIZ ENCARNACION ORYael During your visit today, we recorded the following information about you: Torito Rosa 01/16/2025 2:00 PM Signed Images in [facility] PLAN: 1. Medication: Continue current medications. 2. Test(s)/Imaging/Referral(s): None. 3. Intervention: we have discussed with her the findings on imaging and likely diagnosis.Se is aware that she needs to get her MRI images to the office for review and then we can decide if she would benefit from labral repair vs conservative management until eventual arthroplasty. 4. Follow-up: Noemi Pittman, AT 01/26/2025 2:20 PM Signed Attempted to [...] questions were answered. Tessie Leggett, AT, ATC Torito Rosa 01/27/2025 10:52 AM Signed Pnt called office stating her back told her ok to proceed w hip scope- pnt ready to sched surg Noemi Francis, AT 01/30/2025 3:51 PM Signed Spoke with patient on the phone. Surgery date of 02-23-25 was agreed to. Pre-op instructions were reviewed in detail with the patient and also sent via Scaleform. All questions were answered. Tessie Leggett, AT, [...] times a day for 90 days. - Yodsp-3-VZU-EPA-Fish Oil (FISH OIL) 1,000 (120-180) mg cap [...] (None) Encounter Status:Closed by NOEMI FRANCIS on 01/26/25[facility] Office/Clinic Noteon [id number] Medicine Office/Clinic NoteFafloating hospital for children Medicine Office/Clinic Note Chief Complaint swelling in [...] will start to get some relief. she hastried toradol, meloxicam, steroids, gabapentin. none have given [...] Daily, # 30 tab(s), Refills(s) 0, Pharmacy: [facility] [id number], 161, cm, 01/16/25 14:25:00 EDT, Height/Length Dosing, 86.3, kg, 01/16/25 14:25:00 EDT, Weight Dosing 2. Encounter for weight management (Z76.89: Persons encountering health services in other specifiedcircumstances) pt is up 20 pounds since September. will restart adipex. medication agreement signed. RTC 4 weeks Ordered: phentermine, 37.5 mg = 1 tab(s), Oral, Daily, # 30 tab(s), Refills(s) 0, Pharmacy: [facility] [id number], 161, cm, 01/16/25 14:25:00 EDT, Height/Length Dosing, [...] Tobacco Use:. Never Smokeless Tobacco Use:. Cigarettes, Householdtobacco concerns: No. Yes, 09/16/2024 Family History Patient was adopted Family history is negative Immunizations Vaccine Date Status Comments influenza virus vaccine, inactivated 07/07/2022 Recorded SARS-CoV-2 (COVID-19) mRNA BNT-162b2 vax 02/25/2021 Recorded 2023-05-18: TPVAL SARS-CoV-2 (COVID-19) mRNA BNT-162b2 vax 02/04/2021 Recorded 2023-05-18: TPVAL influenza virus vaccine, inactivated 07/02/2020 Recorded influenza virus vaccine, inactivated 07/14/2019 RecordedOhioHealth Grady Memorial HospitalComment on above:Result Comment: Electronically Signed By: Lidia Jones.taniya\Date and Time Signed: 01/16/25 15:42 EDTProvider Letteron [id number] LetterProvider Letter January 16, 2025 [address] [place] [id number] : 1985 To Whom It May Concern, Please excuse above patient from work due to medical Date of Illness: From: _01-16-25 To: _01-16-25 May Return to Work On: 01-19-25 Restrictions: _ Comments: _ Sincerely, [place] [address] [facility]ckcmvMfwkwqUniversity [facility] 69-47-6499QLCPEearti Visit (BRANNON) ASHLEE JALLOH ([id number]) 1985 F Date Time Provider Department 01/07/25 [...] 7 9 Pain Location: -- Hip-Right Description: Aching;Burning;Sharp;Shooting;Stabbing;Stabbing/Not Incision;Stiffness;Tenderness;Tightness;Tingling Sharp;Shooting;Radiating Duration Amount of Time: -- 9 [...] No duration of use Work Related: No 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 No past surgical history on file. Current Outpatient Medications Medication Sig Dispense Refill pregabalin (LYRICA) 50 mg capsule Take 1 capsule by mouth three times a day for 90 days. 90 capsule 2 Ftqzi-6-CES-EPA-Fish Oil (FISH OIL) 1,000 (120-180) mg cap [...] if she would (more content not included)... NormalOhiohealth Shelby HospitalCNOVon 03-55-8483FOLGKqawyk Visit (ORAVON) ASHLEE JALLOH ([id number]) 1985 F Date Time Provider Department 01/05/25 2:45 PM URIEL GUZMÁN During your visit today, we recorded the following information about you: Weight 84.4 kg Uriel Guzmán MD 01/05/2025 3:26 PM Signed CONSULT ORTHOPAEDIC: HIP PRIMARY CARE PHYSICIAN: No primary care provider on file. REFERRING PROVIDER: Johnathan Haas [address] [facility] [address] ASSESSMENT AND PLAN Impression: Right hip and [...] HPI. MUSCULOSKELETAL: See HPI. (more content not included)...NormalTriHealth Bethesda North HospitalOVOffice Visit (PAMAVN) ASHLEE JALLOH ([id number]) 1985 F Date Time Provider Department 01/05/25 2:00 PM RISHABH HUANG During your visit today, we recorded the following information about you: Pulse Blood pressure Weight 72/minute 119/63 81.6 kg Rishabh Huang MD 01/05/2025 3:00 PM Signed [facility] Pain Management Department Consultation Date: January 05, 2025 - Referring physician: Johnathan Haas [address] [facility] [address] Ashlee Jalloh is seen in consultation requested [...] be based in fibromyal (more content not included)...NormalOhiohealth Shelby HospitalXR HIP 3V PELV+ AP/LAT RTon 68-16-8489AW HIP 3V PELV+ AP/LAT RT* * *Final Report* * * DATE OF [...] acute bony abnormality or significant hip osteoarthritis. Electrician'S Assistant: [facility] Transcribe Date/Time: Jan 05 2025 9:25P Dictated by : FREDDY HENRIQUEZ MD This examination was interpreted and the report reviewed and electronically signed by: FREDDY HENRIQUEZ MD on Jan 05 2025 9:26PM EST [id number] Shelby HospitalXR Pelvis and Hip - right AP and Lateral frogon [id number]: No acute bony abnormality or significant hip osteoarthritis. Electrician'S Assistant: [facility] Transcribe Date/Time: Jan 05 2025 9:25P Dictated by : FREDDY HENRIQUEZ MD This examination was interpreted and the report reviewed and electronically signed by: FREDDY HENRIQUEZ MD on Jan 05 2025 9:26PM EST DIVISION OF RADIOLOGY* * *Final Report* * * DATE OF [...] and symphysis pubis are intact. DIVISION OF RADIOLOGYProvider, [facility] [place] - 01/05/2025 * * *Final Report* * [...] acute bony abnormality or significant hip osteoarthritis. Electrician'S Assistant: [facility] Transcribe Date/Time: Jan 05 2025 9:25P Dictated by : FREDDY HENRIQUEZ MD This examination was interpreted and the report reviewed and electronically signed by: FERDDY HENRIQUEZ MD on Jan 05 2025 9:26PM EST [facility] HospitalRadiology Study observation (narrative)Memorial HospitalXR Pelvis and Hip - right AP and Lateral frogOrdered By: Ccf Provider on 01-05-2025 [facility] LUMBAR SPINE WO IVCONon [id number] LUMBAR SPINE WO IVCON* * *Final Report* * * DATE OF [...] lumbar spine as above in more detail. Electrician'S Assistant: EDGAR Transcribe Date/Time: Dec 30 2024 10:05A Dictated by : ROSSANA PETER MD This examination was interpreted and the report reviewed and electronically signed by: ROSSANA PETER MD on Dec 30 2024 11:22AM EST [id number] Zulch HospitalCNCOon [id number] Text NormalOhiohealth Shelby HospitalXR LUMBAR SPINE (2-3 VIEWS)on 01-00-0997PY LUMBAR SPINE (2-3 VIEWS)EXAMINATION: 3 XRAY VIEWS OF THE LUMBAR SPINE [...] Signed by: Ab Escobar MD 12/19/24 Final resultNormalMercy Day Kimball HospitalXR Lumbar spine 2 or 3 Viewson 12-19-2024 Status post L4-5 posterior spinal fusion in unchanged alignment. No evidence of hardware complication. Mild disc height loss at L5-S1 appears unchanged. [facility] CONSOLIDATEDEXAMINATION: 3 XRAY VIEWS OF THE LUMBAR SPINE 12/19/2024 11:53 am COMPARISON: 09/01/2023 HISTORY: ORDERING SYSTEM PROVIDED HISTORY: Low back pain TECHNOLOGIST PROVIDED HISTORY: Low back pain FINDINGS: Status post posterior spinal fusion and laminectomy at L4-5. Hardware appears intact. Disc spacer remains in satisfactory position. Mild disc space narrowing at L5-S1. Disc spaces otherwise maintained. Alignment within normal limits. [facility] Ab Cortez MD - 12/19/2024 EXAMINATION: 3 XRAY VIEWS [...] disc height loss at L5-S1 appears unchanged. [facility] HospitalRadiology Study observation (narrative)[facility] THORACIC SPINE (2 VIEWS)on 16-91-4278GT THORACIC SPINE (2 VIEWS)EXAMINATION: 3 XRAY VIEWS OF THE THORACIC SPINE [...] Signed by: Ab Escobar MD 12/19/24 Final resultNormalMerCharlotte Hungerford Hospital Thoracic spine 2 Viewson 23-20-9355Rp acute abnormality identified. Mild degenerative changes. [facility] CONSOLIDATEDEXAMINATION: 3 XRAY VIEWS OF THE THORACIC SPINE 12/19/2024 11:53 am COMPARISON: None. HISTORY: ORDERING SYSTEM PROVIDED HISTORY: back pain, NKI TECHNOLOGIST PROVIDED HISTORY: back pain, NKI FINDINGS: Vertebral body heights maintained. Normal alignment. No significant disc space narrowing. Mild degenerative endplate spurring in the midthoracic spine. [facility] Ab Cortez MD - 12/19/2024 EXAMINATION: 3 XRAY VIEWS OF THE THORACIC SPINE 12/19/2024 11:53 am COMPARISON: None. HISTORY: ORDERING SYSTEM PROVIDED HISTORY: back pain, NKI TECHNOLOGIST PROVIDED HISTORY: back pain, NKI FINDINGS: Vertebral body heights maintained. Normal alignment. No significant disc space narrowing. Mild degenerative endplate spurring in the midthoracic spine. IMPRESSION: No acute abnormality identified. Mild degenerative changes. [facility] SystemRadiology Study observation (narrative)[facility] Thoracic spine 2 ViewsOrdered By: Ab Escobar on 54-55-7220Qud [facility] Work Phone: cNPNon [id number] (PAMAVN) SHUBHAMASHLEE NOLAN ([id number]) 1985 F Date Time Provider Department 12/18/24 [...] any questions about your appointment, please call [phone] and ask for pain management. Thank You, [...] patient call Prescriptions as of 12/18/2024 - Rhfju-4-ZIE-EPA-Fish Oil (FISH OIL) 1,000 (120-180) mg cap [...] (None) Encounter Status:Closed by HEIDY NUNEZ on 12/18/24[facility] [id number] (REMS31) ASHLEE JALLOH ([id number]) 1985 F Date Time Provider Department 12/17/24 JOHNATHAN HAAS REMS31 During your visit today, we recorded the following information about you: Patricia Salazar 12/17/2024 9:06 AM Signed Ashlee is calling Johnathan Haas MD today asking for a work noted from when she was seen on 12/15 to be faxed over to her work. F: [phone] Attn: Michael Patient has been identified by name and birthdate. Duration of symptoms: N/A Person calling: self Call patient at: at home [phone] (home) Was an appointment scheduled: No Closing statement: Results or non-symptom based questions: Thank you for calling [facility], your call will be returned within the next business day. Johnathan Foley MD 12/19/2024 4:31 PM Signed letter in [employer] Please fax Allergies As of Date: 12/17/2024 [...] Fully Assessed Prescriptions as of 12/19/2024 - Plxgv-0-XTO-EPA-Fish Oil (FISH OIL) 1,000 (120-180) mg cap [...] (None) Encounter Status:Closed by JOHNATHAN HAAS on 12/19/24[facility] [id number] Visit (REHAV) ASHLEE JALLOH ([id number]) 1985 F Date Time Provider Department 12/15/24 3:00 PM JOHNATHAN HAAS REHAV During your visit today, we recorded the following information about you: Pulse Blood pressure Weight 73/minute 110/65 82 kg Johnathan Haas MD 12/15/2024 6:30 PM Signed [facility] Self-referral Complains of whole spine [...] tear would like to see orthopedic at [facility] Chronic depression PTSD would like to establish with psych at [facility] No recent injury or fall She [...] questioning reveals that 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 Current Outpatient Medications Medication Sig Tmvpx-2-WMH-EPA-Fish Oil (FISH OIL) 1,000 (120-180) mg cap [...] Cuff Size: Regular Ovi (more content not included)...NormalOhioHealth Pickerington Methodist Hospital Medicine Office/Clinic Noteon 02-88-1298Nfwzwx Medicine Office/Clinic NoteFafloating hospital for children Medicine Office/Clinic Note HPI Staff Ashlee is a 39 year old female presenting for ER follow up ER followup: PHQ-9: 19 Hospital: [facility] Visit date: 12/03/24 Symptoms the patient [...] right side of neck going into her shoulder,she went to chiropractor yesterday and pt states [...] Daily, # 90 tab(s), Refills(s) 1, Pharmacy: [facility] [id number], 161, cm, 10/06/24 8:53:00 EST, Height/Length Dosing, [...] Tobacco Use:. Never Smokeless Tobacco Use:. Cigarettes, Householdtobacco concerns: No. Yes, 09/16/2024 Family History Patient was adopted Family history is negative Immunizations Vaccine Date Status Comments influenza virus vaccine, inactivated 07/07/2022 Recorded SARS-CoV-2 (COVID-19) mRNA BNT-162b2 vax 02/25/2021 Recorded 2023-05-18: TPVAL SARS-CoV-2 (COVID-19) mRNA BNT-162b2 vax 02/04/2021 Recorded 2023-05-18: T (more content not included)...[facility] HospitalComment on above: Result Comment: Electronically Signed By: Lidia Jones\.br\Date and Time Signed: 12/05/24 14:53 EDTProvider Letteron [phone] LetterProvider Letter December 05, 20[address] [place] [id number] : 1985 To Whom It May Concern, Please excuse above patient from work. Date of Illness: 12/05/2024 May Return to Work On: 12/08/2024 Sincerely, Family Medicine [address] [address] VbxiipUluxlxHolmes County Joel Pomerene Memorial HospitalBrain Natri. Peptideon 14-86-4114Vxc-BNP<53Rhldbi5-479Scycx Day Kimball HospitalComment on above:Performed By: #### CDP, TROPI, CP, MG, BNP #### [facility] [address] [place] [address] Reporter: Haley Mccall MDBrain Natriuretic Peptideon 62-52-2531Exikbzamwiu peptide B (Bld) [Mass/Vol]pg/mL0 - 125 pg/mLInova Health SystemCBC with Auto Differentialon 56-29-7195Yuiiikrlp (Bld) [#/Vol]0.04 10*3/uLBon [facility]ours [facility] HealthBasophils/100 WBC (Bld)0 %0 - 2 %[facility] HospitalEosinophils (Bld) [#/Vol]0.13 10*3/uLBon Secours [facility] HospitalEosinophils/100 WBC (Bld)1 %1 - 4 %[facility] SecGalion HospitalErythrocyte distribution width (RBC) [Ratio]12 % 11.8 - 14.4 %Bon SecGalion HospitalHematocrit (Bld) [Volume fraction]38.5 % 36.3 - 47.1 %[facility] SecGalion HospitalHemoglobin (Bld) [Mass/Vol]13.2 g/dL11.9 - 15.1 g/dLBon SecGalion HospitalImmature granulocytes (Bld) [#/Vol]0.03 10*3/uL [facility] HospitalImmature granulocytes/100 WBC (Bld)0 %0Bon [facility]St[facility] HealthInterpretation and review of laboratory resultsAbnormalBon SecGalion HospitalLymphocytes/100 WBC (Bld)11 %Low24 - 43 %[facility] Lymphocytes/100 WBC (Bld)1.11 %[facility] SecAvita Health SystemH (RBC) [Entitic mass] 29.5 pg25.2 - 33.5 pgBon SecAvita Health SystemHC (RBC) [Mass/Vol]34.3 g/dL28.4 - 34.8 g/dLBon SecAvita Health SystemV (RBC) [Entitic vol]86.1 fL82.6 - 102.9 fL [facility] HealthMonocytes/100 WBC (Bld)7 %3 - 12 %[facility] HealthMonocytes/100 WBC (Bld)0.64 %[facility] HealthNeutrophils/100 WBC (Bld)81 %High36 - 65 %[facility] HealthNucleated RBC/100 WBC (Bld) [Ratio]0 %0.0 per 100 WBCInova Health SystemPlatelet mean volume (Bld) [Entitic vol]9.7 fL8.1 - 13.5 fLInova Health SystemPlatelets (Bld) [#/Vol] 296 10*3/uLBon [facility] – JacksonRBC (Bld) [#/Vol]4.47 10*6/uL3.95 - 5.11 m/uL Inova Health SystemSegmented neutrophils/100 WBC (Bld)7.87 %Inova Health SystemWBC other (Bld) [#/Vol]9.8Bon [facility] CenterCBC with Diffon 88-21-7407Zek. Basophil0.04 k/uLNormal0.00-0.20[facility] HospitalComment on above:Performed By: #### CDP, TROPI, CP, MG, BNP #### [address] [place] [id number] Freelance Court Reporter: Pradeep Amador.Imm.Granulocyte0.03 k/uLNormal0.00-0.30Access Hospital DaytonComment on above:Performed By: #### CDP, TROPI, CP, MG, BNP #### [address] [place] [phone] Freelance Court Reporter: Pradeep Amador.Neutrophil (Seg)7.87 k/uLNormal1.50-8.10Access Hospital DaytonComment on above:Performed By: #### CDP, TROPI, CP, MG, BNP #### [address] [place] [phone] Freelance Court Reporter: Haley Mccall MDBasophils/100 WBC (Bld)0 %Normal0-2Mer[facility]berry HospitalComment on above:Performed By: #### CDP, TROPI, CP, MG, BNP #### [address] [place] [address] Reporter: Haley Mccall MDEosinophils (Bld) [#/Vol]0.13 10*3/uLNormal 0.00-0.44[facility] HospitalComment on above:Performed By: #### CDP, TROPI, CP, MG, BNP #### [address] [place] [address] Reporter: Haley Mccall MDEosinophils/100 WBC (Bld)1 %Normal1-4[facility] HospitalComment on above:Performed By: #### CDP, TROPI, CP, MG, BNP #### [address] [place] [address] Reporter: Haley Mccall MDErythrocyte distribution width (RBC) [Ratio]12.0 % Bgftbv31.8-14.4[facility] HospitalComment on above:Performed By: #### CDP, TROPI, CP, MG, BNP #### [address] [place] [address] Reporter: Haley Mccall MDHematocrit (Bld) [Volume fraction]38.5 %Normal 36.3-47.1Mercy Mulberry HospitalComment on above:Performed By: #### CDP, TROPI, CP, MG, BNP #### [address] [place], [place] [address] Reporter: Haley Mccall MDHemoglobin (Bld) [Mass/Vol]13.2 g/dLNormal 11.9-15.1Mkettering health main campusy Mulberry HospitalComment on above:Performed By: #### CDP, TROPI, CP, MG, BNP #### [address] [place], [facility] Reporter: Haley Mccall MDImmature granulocytes/100 WBC (Bld)0 %Niutfw1Udzsp Tiffin HospitalComment on above:Performed By: #### CDP, TROPI, CP, MG, BNP #### [address] [place], [place] [address] Reporter: Simon Amadormphocytes (Bld) [#/Vol]1.11 10*3/uLNormal 1.10-3.70Access Hospital DaytonComment on above:Performed By: #### CDP, TROPI, CP, MG, BNP #### [address] [place], [place] [address] Reporter: Marlys Amadorcytpeggy/100 WBC (Bld)11 %Hkd17-58KuydnAccess Hospital DaytonComment on above:Performed By: #### CDP, TROPI, CP, MG, BNP #### [address] [place], [place] [address] [address] Reporter: BEATRIZ Amador (RBC) [Entitic mass]29.5 wcAggnop09.2-33.5 [facility] HospitalComment on above:Performed By: #### CDP, TROPI, CP, MG, BNP #### [address] [place], [facility] Reporter: BEATRIZ AmadorC (RBC) [Mass/Vol]34.3 g/fGFeguyc82.4-34.8Access Hospital DaytonComment on above:Performed By: #### CDP, TROPI, CP, MG, BNP #### [address] [place], [place] [id number] Freelance Court Reporter: LATRICE AmadorCV (RBC) [Entitic vol]86.1 tUYspnwm96.6-102.9 [facility] HospitalComment on above:Performed By: #### CDP, TROPI, CP, MG, BNP #### [address] [place], [facility] Reporter: LATRICE Amadoronocytes (Bld) [#/Vol]0.64 10*3/uLNormal0.10-1.20 Access Hospital DaytonComment on above:Performed By: #### CDP, TROPI, CP, MG, BNP #### [address] [place] [address]: LATRICE Amadoronocytes/100 WBC (Bld)7 %Normal3-12Access Hospital DaytonComment on above:Performed By: #### CDP, TROPI, CP, MG, BNP #### [address] [place] [address]: Therese Amadorophil (Seg)81 %Cprh73-51QjehuAccess Hospital Dayton Comment on above:Performed By: #### CDP, TROPI, CP, MG, BNP #### [address] [place] [address]: Haley Mccall MDNRBC Automated0.0 per 100 WBCNormal0.0Access Hospital DaytonComment on above:Performed By: #### CDP, TROPI, CP, MG, BNP #### [address] [place] [address]: Gracie Amador mean volume (Bld) [Entitic vol]9.7 fL Normal8.1-13.5Access Hospital DaytonComment on above:Performed By: #### CDP, TROPI, CP, MG, BNP #### [address] [place] [address]: MOISE Amadorlatelets (Bld) [#/Vol]296 10*3/vFGcofly170-503 Access Hospital DaytonComment on above:Performed By: #### CDP, TROPI, CP, MG, BNP #### [address] [place], [place] [phone] Freelance Court Reporter: LAI Amador ([facility]) [#/Vol]4.47 10*6/uLNormal3.95-5.11Mer[facility] Day Kimball HospitalComment on above:Performed By: #### CDP, TROPI, CP, MG, BNP #### [facility] [address] [place], [place] [phone] Freelance Court Reporter: LESLEY Amador ([facility]) [#/Vol]9.8 10*3/uLNormal3.5-11.3Mercy Mulberry HospitalComment on above:Performed By: #### CDP, TROPI, CP, MG, BNP #### [address] [place] [address] Reporter: DOTTIE AmadorSamaritan Hospital 21-69-2625Amlrjzn [Mass/Vol]4.5 g/dL3.5 - 5.2 g/dLBon [facility] JacksonAlbumin/Globulin [Mass ratio]1.6 {ratio}1.0 - 2.5Bon [facility] HealthALP [Catalytic activity/Vol]81 U/L35 - 104 U/LBon [facility] HealthALT [Catalytic activity/Vol]20 U/L10 - 35 U/LBon [facility] – JacksonAnion gap [Moles/Vol]9 mmol/L9 - 16 mmol/LBon [facility] AST [Catalytic activity/Vol]23 U/L10 - 35 U/LBon [facility] – JacksonBilirubin [Mass/Vol]0.4 mg/dL0.00 - 1.20 mg/dLBon [facility] HealthCalcium [Mass/Vol] 9.4 mg/dL8.6 - 10.4 mg/dLBon [facility] HealthChloride [Moles/Vol]101 mmol/L 98 - 107 mmol/LBon [facility] HealthCO2 [Moles/Vol]26 mmol/L20 - 31 mmol/LBon [facility] JacksonCreatinine [Mass/Vol]0.8 mg/dL0.50 - 0.90 mg/dLBon [facility] CenterChinaNetCloud HealthEst, Glom Filt Rate- PINFBon [facility] CenterChinaNetCloud [facility]leness HospitalComment on above: These results are not intended [...] therapy that affects renal tubular secretion. Glucose [Mass/Vol]96 mg/dL74 - 99 mg/dLBon [facility] JacksonInterpretation and review of laboratory resultsAbnormalBon [facility] Bantr HealthPotassium [Moles/Vol]4.3 mmol/L3.7 - 5.3 mmol/LBon [facility] CenterChinaNetCloud HealthProtein [Mass/Vol] 7.3 g/dL6.6 - 8.7 g/dLBon [facility] Bantr HealthSodium [Moles/Vol]136 mmol/L136 - 145 mmol/LBon [facility] CenterChinaNetCloud HealthUrea nitrogen [Mass/Vol]20 mg/dL6 - 20 mg/dL Bon [facility] HawthorneUrea nitrogen/Creatinine [Mass ratio]25 mg/mgHigh9 - 20 [facility] HospitalChinaNetCloud HealthCT HEAD WO CONTRASTon [id number] HEAD WO CONTRAST ADDENDUM: Findings were communicated [...] Barbra Baires MD 12/03/24 Edited Result - FINALNoSelect Medical Specialty Hospital - Columbus SouthCT Head WO contraston 12-03-2024 Addendum by Barbra Baires MD on 12/03/2024 12:19 PM EDT ADDENDUM: Findings were communicated to Dr. CATHERINE CALVILLO by the CORE team on 12/03/2024 at 12:09 pm. [facility] acute intracranial abnormality. These results were sent to the CORE Team on 12/03/2024 at 12:03 pm to be communicated to the referring/covering health care provider/office. [facility] CONSOLIDATEDEXAMINATION: CT OF THE HEAD WITHOUT CONTRAST 12/03/2024 [...] of the visualized skull or soft tissues. MHPN Barbra Richardson MD - 12/03/2024 EXAMINATION: CT OF THE [...] communicated to the referring/covering health care provider/office. [facility] SystemRadiology Study observation (narrative)[facility] Head WO contrastOrdered By: Barbra Baires on 35-83-2147Bjl [facility] Work Phone: CTA HEAD NECK W CONTRASTon [id number] HEAD NECK W CONTRASTEXAMINATION: CTA OF THE HEAD AND NECK WITH [...] stenosis or large vessel occlusion of the mmgouz-nw-Wuntpw. Interpreted by: Barbra Baires MD Signed by: Barbra Baires MD 12/03/24 Final resultNormalMerBridgeport Hospital Head vessels and Neck vessels W contrast Jean-Pierre . No flow limiting stenosis or dissection of the cervical carotid/vertebral arteries. 2. No significant stenosis or large vessel occlusion of the kmqggp-bg-Gzxote. [facility] RIS CONSOLIDATEDEXAMINATION: CTA OF THE HEAD AND NECK WITH [...] BRAIN: No mass effect or midline shift. [facility] Barbra Richardson MD - 12/03/2024 EXAMINATION: CTA OF THE [...] stenosis or large vessel occlusion of the inotyb-zy-Dpqvat. [facility] HospitalRadiology Study observation (narrative)[facility] Metabolic Profon 73-14-9587Vxgugza [Mass/Vol]4.5 g/dLNormal3.5-5.2Mer[facility] Mulberry HospitalComment on above:Performed By: #### CDP, TROPI, CP, MG, BNP ####[address] [place] [address] Lab Director: Haley Mccall MD Albumin/Glob Ratio1.4Wshyib1.0-2.5Access Hospital DaytonComment on above: Performed By: #### CDP, TROPI, CP, MG, BNP ####[address] , [place] [phone] Director: Rimma Amador Phos81 U/MLzxubm40-017QruipAccess Hospital DaytonComment on above:Performed By: #### CDP, TROPI, CP, MG, BNP ####[address] [place] [address] Lab Director: Haley Mccall MDALT [Catalytic activity/Vol]20 U/YUbebdn04-69OsbmuAccess Hospital DaytonComment on above: Performed By: #### CDP, TROPI, CP, MG, BNP ####[address] [place] [address] Lab Director: Spencer Amador gap [Moles/Vol]9 mmol/LNormal9-16Access Hospital DaytonComment on above: Performed By: #### CDP, TROPI, CP, MG, BNP ####[address] [place] [address] Lab Director: Haley Mccall MDAST [Catalytic activity/Vol]23 U/BVzvpcp36-97RmnnuAccess Hospital DaytonComment on above:Performed By: #### CDP, TROPI, CP, MG, BNP ####[address] [place] [address] Lab Director: Haley Mccall MDBilirubin [Mass/Vol]0.4 mg/dLNormal0.00-1.20[facility] on above:Performed By: #### CDP, TROPI, CP, MG, BNP ####[address] [place] [address] Lab Director: Haley Mccall MDBUN/CRE Dbmbu82Dsck6-49ApjgrAccess Hospital DaytonComment on above: Performed By: #### CDP, TROPI, CP, MG, BNP ####[address] [place] [address] Lab Director: DOTTIE Amadoralcium [Mass/Vol]9.4 mg/dLNormal8.6-10.4Access Hospital DaytonComment on above:Performed By: #### CDP, TROPI, CP, MG, BNP ####[address] [place] [address] Lab Director: DOTTIE Amadorhloride [Moles/Vol]101 mmol/XOtibia32-346CgociAccess Hospital DaytonComment on above:Performed By: #### CDP, TROPI, CP, MG, BNP ####[address] [place] [address] Lab Director: Haley Mccall MDCO2 [Moles/Vol]26 mmol/MCaarzi20-86SnwguAccess Hospital DaytonComment on above:Performed By: #### CDP, TROPI, CP, MG, BNP ####[address] [place] [address] Lab Director: DOTTIE Amadorreatinine [Mass/Vol]0.8 mg/dLNormal0.50-0.90[facility] Comment on above:Performed By: #### CDP, TROPI, CP, MG, BNP ####[address] [place] [address] Lab Director: Haley Mccall MDGFR/1.73 sq M.predicted among non-blacks MDRD (S/P/Bld) [Vol rate/Area]mL/min/{1.73_m2}Normal>60Access Hospital DaytonComment on above:Result Comment: These results are not intended for [...] or following therapy that affects renal tubular secretion.Performed By: #### CDP, TROPI, CP, MG, BNP ####[address] , [facility] Lab Director: Haley Mccall MDGlucose [Mass/Vol]96 mg/dLNormal 74-99Mkettering health main campusy Day Kimball HospitalComment on above:Performed By: #### CDP, TROPI, CP, MG, BNP ####[address] [place] [address] Lab Director: Haley Mccall MDPotassium [Moles/Vol]4.3 mmol/L Normal3.7-5.3MLima City HospitalComment on above:Performed By: #### CDP, TROPI, CP, MG, BNP ####[address] [place] [address] Lab Director: Haley Mccall MDProtein [Mass/Vol]7.3 g/dLNormal6.6-8.7Access Hospital DaytonComment on above:Performed By: #### CDP, TROPI, CP, MG, BNP ####[facility] [place] [address] Lab Director: KIRAN Amadorodium [Moles/Vol]136 mmol/OLrqyen555-907EtwhjAccess Hospital DaytonComment on above:Performed By: #### CDP, TROPI, CP, MG, BNP ####[facility], [place] [address] Lab Director: Ruiz Amador nitrogen [Mass/Vol]20 mg/dLNormal6-20Access Hospital DaytonComment on above:Performed By: #### CDP, TROPI, CP, MG, BNP ####[facility] [place] [address] Lab Director: Haley Mccall MDEKG 12 Lead Ordered By: Juan Del Valle on 45-28-0867Novdai Borg86CYEPsk [employer] Phone: [phone] Irmx41dozzxrzDddiChange Phone: P-R Aynlhcgc256 [employer] Phone: Q-T Lxbbynyg712 [employer] Phone: QRS Wnwbrozr51 msBandPage Phone: QTc Calculation (Holli)426 msBon [employer] Phone: [phone] Chaz90edpfflzAndBandPage Phone: T Qmky01rnctbfjUkaiChange Phone: Ventricular Ovmv24WYZTfs [employer] Phone: [phone] [employer] Phone: EKG 12 Leadon 38-71-7535Irddjz sinus rhythm Low voltage QRS Borderline ECG When compared with ECG of 15-OCT-2024 15:50, No significant change was found Confirmed by JUAN DEL VALLE ([id number]) on 12/03/2024 12:29:07 PMSummit Oaks HospitalJuan MD - 12/03/2024 Normal sinus rhythm Low voltage QRS Borderline ECG When compared with ECG of 15-OCT-2024 15:50, No significant change was found Confirmed by JUAN DEL VALLE ([id number]) on 12/03/2024 12:29:07 PM Bon [facility] – JacksonMagnesiumon 34-27-1807Phnnbgbnd [Mass/Vol]2.2 mg/dL1.6 - 2.6 mg/dLBon [facility] – JacksonMagnesium [Mass/Vol]2.2 mg/dLNormal1.6-2.6 Access Hospital DaytonComment on above:Performed By: #### CDP, TROPI, CP, MG, BNP ####[address] [place] [address] Lab Director: Haley Mccall MDNo Panel Informationon 24-41-3170Bxm [facility] – JacksonTSHon 89-89-7792VPY Qn1.6 m[IU]/LBon [facility] – JacksonBon [facility] – JacksonThyroid Stim. Horm.on 35-30-4064Ipdifms Stim. Horm.1.60 uIU/mLNormal0.27-4.20Access Hospital DaytonComment on above: Performed By: #### FT4 ####[facility] [address] [place], [place] [address] Lab Director: Harvinder Meza MD#### TSH ####[address] [place] [address] Lab Director: Haley Mccall MDThyroxine, Freeon 46-29-3736Ascyendle, Free1.2 ng/dLNormal 0.92-1.68Access Hospital DaytonComment on above:Performed By: #### FT4 ####[facility] [address] [place] [address] lab Director: Harvinder Meza MD#### TSH ####[facility] [place] [address] lab Director: Mary Amador 93-54-6124Lvrfjmkj I.cardiac High sensitivity method [Mass/Vol]ng/L0 - 14 ng/L [facility] Toledo HospitalComment on above:High Sensitivity Troponin values cannot be compared with other Troponin methodologies.Troponin, High Sens<1Izbzas1-47 Access Hospital DaytonComsouthwest regional rehabilitation center on above:Result Comment: High Sensitivity Troponin values cannot be compared with other Troponin methodologies.Performed By: #### CDP, TROPI, CP, MG, BNP ####[address] [place] [address] lab Director: BRENDAN AmadorR CHEST 1 VIEWon 31-16-8468QJ CHEST 1 VIEWEXAMINATION: ONE XRAY VIEW OF THE CHEST 12/03/2024 11:53 am COMPARISON: None. HISTORY: ORDERING SYSTEM PROVIDED HISTORY: right sided weakness TECHNOLOGIST PROVIDED HISTORY: right sided weakness FINDINGS: Lungs: Clear. Pleura: No effusion or pneumothorax. Cardiomediastinal silhouette: Normal contours. Bones: No acute bony findings. Soft tissues: Normal. IMPRESSION: No acute pulmonary findings. Interpreted by: Koffi Esposito DO Signed by: Koffi Esposito DO 12/03/24 Final resultNormalMercy Windham Hospital Chest Single viewon 80-26-0720Nd acute pulmonary findings. [facility] RIS CONSOLIDATEDEXAMINATION: ONE XRAY VIEW OF THE CHEST 12/03/2024 11:53 am COMPARISON: None. HISTORY: ORDERING SYSTEM PROVIDED HISTORY: right sided weakness TECHNOLOGIST PROVIDED HISTORY: right sided weakness FINDINGS: Lungs: Clear. Pleura: No effusion or pneumothorax. Cardiomediastinal silhouette: Normal contours. Bones: No acute bony findings. Soft tissues: Normal. [facility] Koffi Segal DO - 12/03/2024 EXAMINATION: ONE XRAY VIEW OF THE CHEST 12/03/2024 11:53 am COMPARISON: None. HISTORY: ORDERING SYSTEM PROVIDED HISTORY: right sided weakness TECHNOLOGIST PROVIDED HISTORY: right sided weakness FINDINGS: Lungs: Clear. Pleura: No effusion or pneumothorax. Cardiomediastinal silhouette: Normal contours. Bones: No acute bony findings. Soft tissues: Normal. IMPRESSION: No acute pulmonary findings. [facility] SystemRadiology Study observation (narrative)[facility] Bantr [facility]leness HospitalXR Chest Single viewOrdered By: Koffi Esposito on 68-83-5503OosWythe County Community Hospital Mindie Work Phone: fl INJ HIP ARTHROGRAMon [id number] INJ HIP ARTHROGRAMEXAMINATION: FLUOROSCOPIC GUIDED ARTHROGRAM, 11/14/2024 2:13 pm COMPARISON: None. HISTORY: ORDERING SYSTEM PROVIDED HISTORY: Labral tear of hip, degenerative TECHNOLOGIST PROVIDED HISTORY: Is the patient ?->No FLUOROSCOPY DOSE AND TYPE: Radiation Exposure Index: Kerma mGy, PROCEDURE: PLATING ENGINEER: Matti Cyr DO Informed consent was obtained [...] Signed by: Matti Cyr DO 11/14/24 Final resultNormalMercy Lawrence+Memorial Hospital Hip - right W contrast Jean-Pierre 11-14-2024 1. Suspected subtle intrasubstance tear in the far anterior superior right acetabular labrum. Underlying degeneration of the right acetabular labrum without paralabral cyst. 2. Trace fluid in the right greater trochanteric bursa. 3. No acute osseous abnormality. No femoral head AVN. MHPN RIS CONSOLIDATEDEXAMINATION: MRI ARTHROGRAM OF THE RIGHT HIP, 11/14/2024 [...] the intrapelvic contents demonstrate no acute abnormality. Gm Chavez MD - 11/14/2024 EXAMINATION: MRI ARTHROGRAM OF [...] acute osseous abnormality. No femoral head AVN. [facility] SystemRadiology Study observation (narrative)[facility] Hip - right W contrast IVOrdered By: Gm Uribe on 64-31-6589UygSentara [facility] Work Phone: MRI HIP RIGHT W CONTRASTon [id number] HIP RIGHT W CONTRASTEXAMINATION: MRI ARTHROGRAM OF THE RIGHT HIP, 11/14/2024 [...] Signed by: Gm Uribe MD 11/14/24 Final resultNormalMercy Day Kimball HospitalRF Hip Arthrogramon 01-06-7937Zyuuffrdnf fluoroscopic-guided right hip arthrogram. Patient was transferred to MRI for further imaging. [facility] CONSOLIDATEDEXAMINATION: FLUOROSCOPIC GUIDED ARTHROGRAM, 11/14/2024 2:13 pm COMPARISON: None. HISTORY: ORDERING SYSTEM PROVIDED HISTORY: Labral tear of hip, degenerative TECHNOLOGIST PROVIDED HISTORY: Is the patient ?->No FLUOROSCOPY DOSE AND TYPE: Radiation Exposure Index: Kerma mGy, PROCEDURE: PLATING ENGINEER: Matti Cyr DO Informed consent was obtained [...] obtained and a sterile bandage was placed. [facility] CONSOLIDATEDRoberts, Matti Swenson DO - 11/14/2024 EXAMINATION: FLUOROSCOPIC GUIDED ARTHROGRAM, 11/14/2024 2:13 pm COMPARISON: None. HISTORY: ORDERING SYSTEM PROVIDED HISTORY: Labral tear of hip, degenerative TECHNOLOGIST PROVIDED HISTORY: Is the patient ?->No FLUOROSCOPY DOSE AND TYPE: Radiation Exposure Index: Kerma mGy, PROCEDURE: PLATING ENGINEER: Matti Cyr DO Informed consent was obtained [...] was transferred to MRI for further imaging. [facility] SystemRadiology Study observation (narrative)[facility] Hip ArthrogramOrdered By: Matti Cyr on 31-03-1304Jfo [facility] Mindie Work Phone: Ambulatory Visit Summaryon 44-77-1029Tauejzojdu Visit SummaryAmbulatory Visit Summary ASHLEE JALLOH :1985 Visit Date:10/16/2024 [...] pressure Hypercholesteremia Anemia Screening for thyroid disorder Non- smoker Leg pain, bilateral BMI 30.0-30.9,adult Unchanged esomeprazole [...] you for choosing us for your care. [facility] Medicine Office/Clinic Noteon 50-01-3790Xxqqam Medicine Office/Clinic NoteMiravista Behavioral Health Center Medicine Office/Clinic Note HPI Staff Ashlee is a 39 year old female presenting to discuss medication Pt is concerned she started Cholesterol medication and now her blood pressure had been elevated andmissed work 10/13-10/14 [facility] [place] [facility] 10/15/24 145/78 , feels like she is [...] using both through the weekend. if she isfeeling better on Sunday start 1/2 dose of [...] Tobacco Use:. Never Smokeless Tobacco Use:. Cigarettes, Householdtobacco concerns: No. Yes, 09/16/2024 Family History Patient was adopted Family history is negative Immunizations Vaccine Date Status Comments influenza virus vaccine, inactivated 07/07/2022 Recorded SARS-CoV-2 (COVID-19) mRNA BNT-162b2 vax 02/25/2021 Recorded 2023-05-18: TPVAL SARS-CoV-2 (COVID-19) mRNA BNT-162b2 vax 02/04/2021 Recorded 2023-05-18: TPVAL influenza virus vaccine, inactivated 07/02/2020 Recorded influenza virus vaccine, inactivated 07/14/2019 RecordedOhioHealth Grady Memorial HospitalComment on above:Result Comment: Electronically Signed By: Lidia Jones\.br\Date and Time Signed: 10/16/24 14:42 ESTProvider Letteron [id number] LetterProvider Letter October 16, [address] [place] [id number] : 1985 To Whom It May Concern, Please excuse above patient from work. Date of Illness: From: _10-17-24 To: _10-17-24 May Return to Work On:10-20-24 Restrictions: _ Comments: _ Sincerely, Family Medicine [address] [address] IgkcdjFnbluiHolmes County Joel Pomerene Memorial HospitalBasic Metabolic Panelon 16-20-1093Defnt gap [Moles/Vol]14 mmol/L9 - 16 mmol/LBon [facility] Calcium [Mass/Vol]9.0 mg/dL8.6 - 10.4 mg/dLBon Secours Mercy HealthChloride [Moles/Vol]101 mmol/L98 - 107 mmol/LBon Secours Mercy HealthCO2 [Moles/Vol]21 mmol/L20 - 31 mmol/LBon [facility]ours Mercy HealthCreatinine [Mass/Vol]0.7 mg/dL0.50 - 0.90 mg/dLBon [facility] – JacksonEst, Glom Filt Rate- PINFBon [facility] Center – JacksonComment on above: These results are not intended [...] therapy that affects renal tubular secretion. Glucose [Mass/Vol]88 mg/dL74 - 99 mg/dLBon [facility] – JacksonInterpretation and review of laboratory resultsAbnormalBon [facility] – JacksonPotassium [Moles/Vol]3.6 mmol/LLow3.7 - 5.3 mmol/LBon [facility] – JacksonSodium [Moles/Vol]136 mmol/L136 - 145 mmol/LBon [facility] – JacksonUrea nitrogen [Mass/Vol]14 mg/dL6 - 20 mg/dLBon [facility] – JacksonUrea nitrogen/Creatinine [Mass ratio]20 mg/mg9 - 20Bon [facility] JacksonBasic Metabolic Profon 57-12-2573Dniew gap [Moles/Vol]14 mmol/LNormal9-16Access Hospital DaytonComment on above:Performed By: #### CONI COLVIN, CDP #### [facility] [address] [place] [address] [place] [address] Reporter: Haley Mccall MDBUN/CRE Qkbwc96Bqrpzz8-33Bcofb [facility] Comment on above:Performed By: #### CONI COLVIN, CDP #### [facility] [address] [place] [address] [place] [address] Reporter: DOTTIE Amadoralcium [Mass/Vol]9.0 mg/dLNormal8.6-10.4Access Hospital DaytonComment on above:Performed By: #### CONI COLVIN, CDP #### [facility] [address] [place] [address] Dr. [place] [facility] [address] Reporter: DOTTIE Amadorhloride [Moles/Vol]101 mmol/OKrazyg31-595VuqvgAccess Hospital DaytonComment on above:Performed By: #### CONI COLVIN, CDP #### [address] [place]gu[place], [facility] Reporter: DOTTIE AmadorO2 [Moles/Vol]21 mmol/WCfgrvk99-52TllwqAccess Hospital DaytonComment on above:Performed By: #### CONI COLVIN, CDP #### [address] [place]gu[place], [facility] Reporter: DOTTIE Amadorreatinine [Mass/Vol]0.7 mg/dLNormal0.50-0.90Access Hospital DaytonComment on above:Performed By: #### CONI COLVIN, CDP #### [address] [place], [facility] [address] Reporter: Haley Mccall MDGFR/1.73 sq M.predicted among non-blacks MDRD (S/P/Bld) [Vol rate/Area]mL/min/{1.73_m2}Normal>60Access Hospital DaytonComment on above:Result Comment: These results are not intended for [...] or following therapy that affects renal tubular secretion.Performed By: #### CONI COLVIN, CDP #### [address] [place]gu[place], [facility] Reporter: Haley Mccall MDGlucose [Mass/Vol]88 mg/eLSfcfut87-65AqnbzLima City HospitalComment on above:Performed By: #### CONI COLVIN, CDP #### [facility] [address] [place], [facility] Reporter: MOISE Amadorotassium [Moles/Vol]3.6 mmol/LLow3.7-5.3MSt. Charles Hospital HospitalComment on above:Performed By: #### CONI COLVIN, CDP #### [address] [place]gu[place], [facility] [address] Reporter: KIRAN Amadorodium [Moles/Vol]136 mmol/ZVhpzsk120-235XqqrxAccess Hospital DaytonComment on above:Performed By: #### CONI COLVIN, CDP #### [address] [place]gu[place], [facility] [address] Reporter: Haley Mccall MDUrea nitrogen [Mass/Vol]14 mg/dLNormal6-20Access Hospital DaytonComment on above:Performed By: #### CONI COLVIN, CDP #### [address] [place]gu[place], [facility] [address] Reporter: Haley Mccall MDCBC with Auto Differentialon 70-00-6248Ylxhdpids (Bld) [#/Vol]0.05 10*3/uLBon [facility] Center – JacksonImmature granulocytes (Bld) [#/Vol]Inova Health SystemInterpretation and review of laboratory results AbnormalBon [facility] Center – JacksonLymphocytes/100 WBC (Bld)2.54 %Bon [facility] – JacksonMonocytes/100 WBC (Bld)0.45 %Bon [facility] – JacksonNeutrophils/100 WBC (Bld)60 %36 - 65 %Inova Health SystemNucleated RBC/100 WBC (Bld) [Ratio]0.0 %0.0 per 100 WBCBon [facility]zer Medical Center – JacksonSegmented neutrophils/100 WBC (Bld)4.97 %Bon [facility] – JacksonWBC other (Bld) [#/Vol]8.2[facility] HealthBon [facility] – JacksonCBC with Diffon 46-75-0829Wiiwzcuby/100 WBC (Bld)1 %Normal 0-2Bon [facility] on above:Performed By: #### CONI COLVIN, CDP #### [address] [place] [address]: Haley Mccall MDEosinophils (Bld) [#/Vol]0.17 10*3/uLNormal 0.00-0.44Bon [facility] on above:Performed By: #### TROPVinicio BMP, CDP #### [address] [place] [address]: Haley Mccall MDEosinophils/100 WBC (Bld)2 %Normal1-4Bon [facility] on above:Performed By: #### CONI COLVIN, CDP #### [address] [place] [address]: Haley Mccall MDErythrocyte distribution width (RBC) [Ratio]12.0 % Nhxfqj04.8-14.4Bon [facility] on above:Performed By: #### CONI COLVIN, CDP #### [address] [place] [address]: Haley Mccall MDHematocrit (Bld) [Volume fraction]38.4 %Normal 36.3-47.1Bon [facility] on above:Performed By: #### VINICIUS BMP, CDP #### [address] [place] [address]: Haley Mccall MDHemoglobin (Bld) [Mass/Vol]13.4 g/dLNormal 11.9-15.1Bon [facility] on above:Performed By: #### VINICIUS BMP, CDP #### [address] [place] [address]: Haley Mccall MDImmature granulocytes/100 WBC (Bld)0 %Difpwd7Mou [facility] on above:Performed By: #### CONI COLVIN, CDP #### [address] [place], [place] [address] [address] Reporter: Haley Mccall MDLymphocytes/100 WBC (Bld)31 %Cvlgck91-35Jtq [facility] on above:Performed By: #### CONI COLVIN, CDP #### [address] [place], [place] [id number] [address] Court Reporter: LATRICE AmadorCH (RBC) [Entitic mass]29.9 deCyljyn97.2-33.5Bon [facility] on above:Performed By: #### CONI COLVIN, CDP #### [address] [place], [place] 2[address] [address] Court Reporter: BEATRIZ AmadorC (RBC) [Mass/Vol]34.9 g/iFCybp69.4-34.8Bon [facility] on above:Performed By: #### CONI COLVIN, CDP #### [address] [place], [place] [address] [address] Reporter: LATRICE AmadorCV (RBC) [Entitic vol]85.7 rYDxykxh48.6-102.9Bon [facility] on above:Performed By: #### CONI COLVIN, CDP #### [address] [place], [place] [address] [address] Reporter: LATRICE Amadoronocytes/100 WBC (Bld)6 %Normal3-12Bon [facility] on above:Performed By: #### CONI COLVIN, CDP #### [address] [place], [place] [address]83 [address] Reporter: Gracie Amador mean volume (Bld) [Entitic vol]10.1 fL Normal8.1-13.5Bon [facility] on above:Performed By: #### TROPVinicio BMP, CDP #### [address] [place] [address]: Wan Amador (Bld) [#/Vol]361 10*3/jEXzafgb838-615Cqu [facility] – JacksonComsouthwest regional rehabilitation center on above:Performed By: #### TROPVinicio, BMP, CDP #### [address] [place] [address]: LAI AmadorBC (Bld) [#/Vol]4.48 10*6/uLNormal3.95-5.11Bon [facility] on above:Performed By: #### CONI COLVIN, CDP #### [address] [place], [facility] [address] Reporter: MDAbs. Perry Basophil0.05 k/uLNormal0.00-0.20MerUniversity of Connecticut Health Center/John Dempsey HospitalComment on above:Performed By: #### CONI COLVIN, CDP #### [address] [place], [facility] [address] Reporter: MDAbs. PerryImm.Granulocyte<0.94Fwnbis4.00-0.30MerSt. Mary's Medical Center, Ironton Campus HospitalComment on above:Performed By: #### TROPI, BMP, CDP #### [address] [place], [place] [address] [address] Court Reporter: MDAbs. PerryNeutrophil (Seg)4.97 k/uLNormal1.50-8.10Mer[facility] Day Kimball HospitalComment on above:Performed By: #### TROPVinicio, BMP, CDP #### [address] [place] [address]: Haley Mccall MDLymphocytes (Bld) [#/Vol]2.54 10*3/uLNormal 1.10-3.70Access Hospital DaytonComment on above:Performed By: #### CONI COLVIN, CDP #### [address] [place] [address]: LATRICE Amadoronocytes (Bld) [#/Vol]0.45 10*3/uLNormal0.10-1.20 Access Hospital DaytonComment on above:Performed By: #### CONI COLVIN, CDP #### [address] [place] [address]: Haley Mccall MDNeutrophil (Seg)60 %Viftvh61-47IrqaeAccess Hospital DaytonComment on above:Performed By: #### CONI COLVIN, CDP #### [address] [place], [facility] [address] Reporter: JOB Amador Automated0.0 per 100 WBCNormal0.0Access Hospital DaytonComment on above:Performed By: #### CONI COLVIN, CDP #### [address] [place] [phone] [address] Reporter: LESLEY Amador (Bld) [#/Vol]8.2 10*3/uLNormal3.5-11.3MLima City HospitalComment on above:Performed By: #### CONI COLVIN, CDP #### [address] [place], [place] [address] ([address] Reporter: LATRICE Amadoricroscopic Urinalysison 81-89-8591Vzejcmhnxt cells LM.HPF (Urine sed) [#/Area]0 TO 2[facility] LM.HPF (Urine sed) [#/Area]0 TO 2[facility] HospitalWBC LM.HPF (Urine sed) [#/Area]0 TO 2[facility] HospitalBon SecGalion HospitalNo Panel Informationon 71-46-1850Uwo [facility] – JacksonTroponinon 79-52-7367Trbldwpc I.cardiac High sensitivity method [Mass/Vol]ng/L0 - 14 ng/LBon [facility] – JacksonComment on above:High Sensitivity Troponin values cannot be compared with other Troponin methodologies.Troponin, High Sens<5Mcyruj3-42DntopAccess Hospital DaytonComment on above:Result Comment: High Sensitivity Troponin values cannot be compared with other Troponin methodologies.Performed By: #### TROPI, BMP, CDP #### [facility] [address] [place] [address] [place] [address]: GAUDENCIO Amador w/Reflex Cultureon 77-59-5030Pzdumbcmt, SemiQt,UrNegativeNormalNEGAccess Hospital DaytonComment on above:Performed By: #### UAX, UMICAO ####[address] , [place] 0[address]83 Lab Director: Wood Amador, UrineNegativeNormalNEG Access Hospital DaytonComment on above:Performed By: #### UAX, UMICAO ####[address] , [place] 0[address]83 Lab Director: Henry Amadorty (U)ClearNormalCLEARAccess Hospital Dayton Comment on above:Performed By: #### UAX, UMICAO ####[facility] [place] [address] , [place] 1013283 Lab Director: DOTTIE Amadorolor (U)YellowNormalYELMerUniversity of Connecticut Health Center/John Dempsey HospitalComment on above:Performed By: #### UAX, UMICAO ####[facility] [place] [address] Lab Director: Haley Sturtz, MDGlucose Ql (U)NegativeNormal NEGMerSt. Mary's Medical Center, Ironton Campus HospitalComment on above:Performed By: #### UAX, UMICAO ####[address] , [place] [phone] Director: Haley Mccall MDKetones Ql (U)NegativeNormalNEGWood County Hospitalcy Mulberry HospitalComment on above:Performed By: #### UAX, UMICAO ####[address] [place] [address] Lab Director: Haley Mccall MDLeukocyte esterase Test strip Ql (U)NegativeNormalNEGMerSt. Mary's Medical Center, Ironton Campus HospitalComment on above:Performed By: #### UAX, UMICAO ####[address] [place] [address] Lab Director: Haley Mccall MDNitrite,UrNegativeNormalNEGCleveland Clinic Foundation HospitalComment on above: Performed By: #### ASIF, UMAMANDOO ####[address] , [place] 527[address]83 Lab Director: MOISE Amador,Ur6.5 Normal5.0-9.0[facility] HospitalComment on above:Performed By: #### PRABHJOT GOLDO ####[address] , [place] [address] Lab Director: MOISE Amadorrotein Ql (U)NegativeNormalNEG [facility] HospitalComment on above:Performed By: #### UAX, UMICAO ####[address] , [place] 27[address]883 Lab Director: KIRAN Amadorpec. Sarver,Ur<1.340Eya1.010-1.020Wood County Hospitalcy Mulberry HospitalComment on above:Performed By: #### JO ANNX, UMICAO ####[address] , [place] 927[address]83 Lab Director: Haley Mccall MDUrobilinogen,UrNormalNormal0.0-1.0Access Hospital DaytonComment on above:Performed By: #### ROSENDO GOLD ####[address] , [place] 0[address]83 Lab Director: Haley Mccall MD Urinalysis with Reflex to Cultureon 51-30-5125Dqjethvwd Ql (U)NegativeNEGATIVE [facility] HealthClarity (U)ClearClearBon Secours [facility] Northy HealthColor (U) YellowYellowBon Secours Mercy HealthGlucose Test strip (U) [Mass/Vol]Negative NEGATIVE mg/dLBon Secours Mercy HealthHemoglobin Auto test strip Ql (U)Negative NEGATIVEBon Secours Mercy HealthInterpretation and review of laboratory results AbnormalBon Secours Mercy HealthKetones (U) [Mass/Vol]NegativeNEGATIVE mg/dLBon [facility]ours Mercy HealthLeukocyte esterase Test strip Ql (U)NegativeNEGATIVEBon [facility]ours Mercy HealthNitrite Ql (U)NegativeNEGATIVEBon [facility]ours Mercy HealthpH (U) 6.5 [pH]5.0 - 9.0[facility] HealthProtein (U) [Mass/Vol]NegativeNEGATIVE mg/dLBon Secours Mercy HealthSpecific gravity (U) [Rel density]Low1.010 - 1.020 Bon SecProvidence [facility] Medical Center Everetty HealthUrobilinogen Qn (U)Normal0.0 - 1.0 EU/dLBon Secours [facility] Northy HealthBon SecProvidence Regional Medical Center Everetty HealthUrinalysis,Microon 36-30-3103Rdsnfexyys cells LM Ql (Urine sed)0 TO 3Unawoq0-03NevbkAccess Hospital DaytonComment on above: Performed By: #### ROSENDO GOLD ####[address] , [place] 1727883 Lab Director: Haley Mccall MDUrine RBC's0 TO 3Lwdwbd1-0Mexax Day Kimball HospitalComment on above:Performed By: #### ROSENDO GOLD ####[facility] [place] [address] Lab Director: Haley Mccall MDUrine WBC's0 TO 4Xyzxae2-5FzanwAccess Hospital DaytonComment on above:Performed By: #### ASIF, PRABHJOTO ####[facility] [place] [address] lab Director: MOISE Amadorrovider Letteron 68-78-3549Rangzfmj LetterProvider Letter October 14, 2024 ASHLEE JALLOH [address] [place] [address] : 1985 To Whom It May Concern, Please excuse above patient from work. Date of Illness: From: 10/13/2024 To: 10/14/2024 May Return to Work On: 10/15/2024 Sincerely, [address] [address] IhssbcPxmcdbHolmes County Joel Pomerene Memorial HospitalT3 Freeon 92-03-7344Qbmi T3 [Mass/Vol]3.0 pg/mLInvalid Interpretation Code2.0-4.4[facility] Comment on above:Result Comment: Performed at: [facility] [address] [id number] PhD Babatunde WagonerPerformed By: #### [id number] ####Theron [facility] [address] [place], [place] [address]WFOOQYRPZGztitgs By: SYSTEM SYSTEM on 04-06-4078Aytvufykdgl [Mass/Vol]241 mg/jBOxmj986 - 200 mg/dL Remisol ChemCholesterol in HDL [Mass/Vol]47 mg/dLInvalid Interpretation Code Remisol ChemComment on above:Result Comment: '>= 60 LOW RISK' '<= 40 HIGH RISK'Cholesterol in LDL [Mass/Vol]142 mg/dLHigh<=129mg/dLRemisol ChemCholesterol in VLDL [Mass/Vol]63 mg/dLHigh7 - 40 mg/dLRemisol ChemFree T4 [Mass/Vol]0.90 ng/dLNormal0.58 - 1.64 ng/dLRemisol ChemIron [Mass/Vol]55 ug/dL Efcbvg21 - 153 mcg/dLRemisol ChemTriglyceride [Mass/Vol]315 mg/dLHigh<=149mg/dL Remisol ChemTSH Qn3.02 m[IU]/LNormal0.34 - 5.60 mcIU/mLRemisol ChemFafloating hospital for children Medicine Office/Clinic Noteon 27-52-7033Jzzsng Medicine Office/Clinic NoteMiravista Behavioral Health Center Medicine Office/Clinic Note HPI Staff Ashlee is [...] Free T4 Iron Level Lab Specimen Collect 60026 Lipid Panel T3 Free Thyroid Stimulating Hormone 3. Anemia (D64.9: Anemia, unspecified) iron ordered in office today Ordered: Free T4 Iron Level Lab Specimen Collect 56718 Lipid Panel T3 Free Thyroid Stimulating Hormone 4. Screening for thyroid disorder (Z13.29: Encounter for screening for other suspected endocrine disorder) TSH drawn in office today Ordered: Free T4 Iron Level Lab Specimen Collect 65411 Lipid Panel T3 Free Thyroid Stimulating Hormone 5. Non-smoker (Z78.9: Other specified health status) continue not smoking Ordered: phentermine, 37.5 mg = 1 tab(s), Oral, Daily, # 30 tab(s), Refills(s) 0, Pharmacy: [facility] [id number], 161, cm, 09/16/24 15:32:00 EST, Height/Length Dosing, 77.1, kg, 09/16/24 15:32:00 EST, Weight Dosing Free T4 Iron Level Lipid Panel T3 Free Thyroid Stimulating Hormone 6. Leg pain, bilateral (M79.604: Pain in right leg) pt was encouraged to stop taking adipex by vascular doctor due to raynauds syndrome. she discussed with [facility] and they will fax me an [...] Tobacco Use:. Never Smokeless Tobacco Use:. Cigarettes, Householdtobacco concerns: No. Yes, 09/16/2024 Family History Patient was adopted Family history is negative Immunizations Vaccine Date Status Comments influenza virus vaccine, inactivated 07/07/2022 Recorded SARS-CoV-2 (COVID-19) mRNA BNT-162b2 vax 02/25/2021 R (more content not included)...NormalDayton Children'S HospitalComment on above:Result Comment: Electronically Signed By: Lidia Jones\.taniay\Date and Time Signed: 10/06/24 11:47 ESTFree T4on 37-73-2461Rlvy T4 [Mass/Vol]0.90 ng/dLNormal0.58-1.64Dayton Children'S HospitalComment on above:Performed By: #### [id number] #### [facility] [address] [place], [place] [address]Epvbka 50-39-6466Umoy [Mass/Vol]55 microgram/gSIcnllw99-657 [facility]'S HospitalComment on above:Performed By: #### [id number] #### [facility] [address] [place], [place] [address]Npumz Panelon 14-48-6498Tghulikbrne [Mass/Vol]241 mg/dLHigh 120-200Dayton Children'S HospitalComment on above:Performed By: #### [id number] #### Theron [facility] [address] [place] [place], [place] [address]Pveliluqmfa in HDL [Mass/Vol]47 mg/dLInvalid Interpretation CodeDayton Children'S HospitalComment on above:Result Comment: '>= 60 LOW RISK' '<= 40 HIGH RISK'Performed By: #### [id number] #### [facility] [address] Hospital[facility] [place], [place] [address]Exjsevzgtyo in LDL [Mass/Vol]142 mg/dLHigh<=129Dayton Children'S HospitalComment on above:Performed By: #### [id number] #### [facility] [address] [place], [place] [address]Wuofkffuqql in VLDL [Mass/Vol]63 mg/dLHigh7-40Dayton Children'S HospitalComment on above:Performed By: #### [id number] #### [facility] [address] [place], [place] [address]Gojdsuaykmhj [Mass/Vol]315 mg/dLHigh<=149Dayton Children'S HospitalComment on above:Performed By: #### [id number] #### [facility] [address] [place], [place] [address]HOZfa 91-23-6844THQ Qn3.02 m[IU]/LNormal0.34-5.60Dayton Children'S HospitalComment on above:Performed By: #### [id number] #### [facility] [address] [place], [place] [address] Medicine Office/Clinic Noteon 83-70-0775Zfpugk Medicine Office/Clinic NoteFafloating hospital for children Medicine Office/Clinic Note HPI Staff Ashlee is [...] of skin sensation) pt has appointment with manager laboratory tomorrow. she will discuss this with her. to see if she wants to rule out raynaud's. RTC 3 months for adipex follow up Ordered: phentermine, 37.5 mg = 1 tab(s), Oral, Daily, # 30 tab(s), Refills(s) 0, Pharmacy: [facility] [id number], 161, cm, 09/16/24 15:32:00 EST, Height/Length Dosing, 77.1, kg, 09/16/24 15:32:00 EST, Weight Dosing 2. BMI 29.0-29.9,adult (Z68.29: Body mass index [BMI] 29.0-29.9, adult) BMI education given Ordered: phentermine, 37.5 mg = 1 tab(s), Oral, Daily, # 30 tab(s), Refills(s) 0, Pharmacy: [facility] [id number], 161, cm, 09/16/24 15:32:00 EST, Height/Length Dosing, 77.1, kg, 09/16/24 15:32:00 EST, Weight Dosing 3. Exogenous obesity (E66.09: Other obesity due to excess calories) see above Ordered: phentermine, 37.5 mg = 1 tab(s), Oral, Daily, # 30 tab(s), Refills(s) 0, Pharmacy: [facility] [id number], 161, cm, 09/16/24 15:32:00 EST, Height/Length Dosing, 77.1, kg, 09/16/24 15:32:00 EST, Weight Dosing 4. Non-smoker (Z78.9: Other specified health status) continue not smoking Ordered: phentermine, 37.5 mg = 1 tab(s), Oral, Daily, BMI 29.57, # 30 tab(s), Refills(s) 0, Pharmacy: [facility] [id number], 161, cm, 08/06/24 13:59:00 EST, Height/Length Dosing, 76.6, kg, 08/06/24 13:59:00 EST, Weight Dosing phentermine, 37.5 mg = 1 tab(s), Oral, Daily, # 30 tab(s), Refills(s) 0, Pharmacy: [facility] [id number], 161, cm, 09/16/24 15:32:00 EST, Height/Length Dosing, [...] Tobacco Use:. Never Smokeless Tobacco Use:. Cigarettes, Householdtobacco concerns: No. Yes, 09/16/2024 Family History Patient was adopted Family history is negative Immunizations Vaccine Date Status Comments influenza virus vaccine, inactivated 07/07/2022 Recorded SARS-CoV-2 (COVID-19) mRNA BNT-162b2 vax 02/25/2021 Recorded 2023-05-18: TPVAL SARS-CoV-2 (COVID-19) mRNA BNT-162b2 vax 02/04/2021 Recorded 2023-05-18: TPVAL influenza virus vaccine, inactivated 07/02/2020 Recorded influenza virus vac (more content not included)...[facility] HospitalComment on above:Result Comment: Electronically Signed By: Lidia Jones\.br\Date and Time Signed: 09/17/24 08:07 ESTAmbulatory Visit Summaryon [id number] Visit SummaryAmbulatory Visit Summary ASHLEE JALLOH :1985 Visit Date:09/16/2024 [...] you for choosing us for your care. [facility] HospitalProvider Letteron 08-20-2024 Provider LetterProvider Letter August 20, 2024 [address] [place] [phone] : 1985 Dear Ashlee, We have been trying to reach you with no success. It is important that you return our call regarding your test results upon receiving this letter. Also, at the time of your call, please provide us with your current information. Thank you for your prompt attention to this matter. Sincerely, Family Medicine [address] [address] ext. [phone] WwkljdMxpfowHolmes County Joel Pomerene Memorial HospitalAmbulatory Visit Summaryon 95-70-9050Ryquekdykg Visit SummaryAmbulatory Visit Summary ASHLEE JALLOH :1985 Visit Date:07/28/2024 [...] Tablets By Mouth Every day Pre-op exam Non-smokerBMI 30.0-30.9,adult Unchanged ubrogepant (Ubrelvy 100 mg oral [...] you for choosing us for your care. [facility] Medicine Office/Clinic Noteon 96-26-1654Ngmhgx Medicine Office/Clinic NoteMiravista Behavioral Health Center Medicine Office/Clinic Note Chief Complaint 1m weight [...] Tobacco Use:. Never Smokeless Tobacco Use:. Cigarettes, Householdtobacco concerns: No. Yes, 07/28/2024 Family History Patient was adopted Family history is negative Immunizations Vaccine Date Status Comments influenza virus vaccine, inactivated 07/07/2022 Recorded SARS-CoV-2 (COVID-19) mRNA BNT-162b2 vax 02/25/2021 Recorded 2023-05-18: TPVAL SARS-CoV-2 (COVID-19) mRNA BNT-162b2 vax 02/04/2021 Recorded 2023-05-18: TPVAL influenza virus vaccine, inactivated 07/02/2020 Recorded influenza virus vaccine, inactivated 07/14/2019 RecordedOhioHealth Grady Memorial HospitalComment on above:Result Comment: Electronically Signed By: Lidia Jones\.br\Date and Time Signed: 07/28/24 11:05 ESTProvider Letteron [id number] LetterProvider Letter July 01, [address] [place] [id number] : 1985 To Whom It May Concern, Please excuse above patient from work. Date of Illness: 07/01/2024 May Return to Work On: 07/02/2024 Sincerely, [place] [address] VbxqcsZbyaunOhioHealth Grady Memorial HospitalAmbulatory Visit Summaryon 66-68-5223Icachhvosv Visit SummaryAmbulatory Visit Summary ASHLEE JALLOH :1985 Visit Date:06/30/2024 [...] 10:00 AM EST With: Lidia Jones Where: [address] [address]- Medications What How Much When Why Instructions New phentermine (phentermine 37.5 mg Tab) 1 Tablets By Mouth Every day Pre-op exam Non-smoker BMI 30.0-30.9,adult Pickup at [facility] [id number] Unchanged drospirenone (Slynd 4 mg oral tablet) Unchanged esomeprazole (Nexium 20 mg Cap-DR) 1 Capsules By Mouth Every day Unchanged naproxen (naproxen 500 mg Tab) 1 Tablets By Mouth 2 times a day Unchanged ubrogepant (Ubrelvy 100 mg oral tablet) 1 Tablets By Mouth Once may repeat dose in 2 hours if needed Pharmacy Information [facility] [id number]: [address] [place], [place] [phone] Allergies Nubain (Nausea) Silicone (simethicone) obsolete (Hives) [...] you for choosing us for your care. [facility] Medicine Office/Clinic Noteon [id number] Medicine Office/Clinic NoteMiravista Behavioral Health Center Medicine Office/Clinic Note HPI Staff Ashlee is [...] (Z76.89: Persons encountering health services in other specifiedcircumstances) pt presents today for weight management. pt is up a couple pounds. went to a wedding this weekend and did not eat well. will send one more month. if no weight loss will not refill next month. 2. Hip pain (M25.559: Pain in unspecified hip) pt c/o continue hip pain and knee pain. is going to PT per insurance request before they will allowreplacement. pt is on week 3 of PT and is not doing well. legs keep going numb and she has fallen acouple time. encouraged her to notify surgeon and [...] Daily, # 30 tab(s), Refills(s) 0, Pharmacy: [facility] [id number], 161, cm, 06/30/24 10:16:00 EDT, Height/Length Dosing, 77.2, kg, 06/30/24 10:16:00 EDT, Weight Dosing phentermine, 37.5 mg = 1 tab(s), Oral, Daily, # 30 tab(s), Refills(s) 0, Pharmacy: [facility] [id number], 161, cm, 06/04/24 9:57:00 EDT, Height/Length Dosing, [...] 07/02/2020 Recorded influenza virus vaccine, inactivated 07/14/2019 RecordedOhioHealth Grady Memorial HospitalComment on above:Result Comment: Electronically Signed By: Toño RICARDO, Lidia Swenson\.br\Date and Time Signed: 06/30/24 10:35 EDTProvider Letteron [phone] LetterProvider Letter June 30, [address] [place] [id number] : 1985 To Whom It May Concern, Please excuse above patient from work. Date of Illness: From: _ 06-30-24 To: _ 06-30-24 May Return to Work On: 07-01-24 Restrictions: _ Comments: _ Sincerely, Family Medicine [place] [id number] RitllhYhkahyOhioHealth Hardin Memorial Hospital Video Visit - Telehealthon [id number] Video Visit - Telehealth Video Visit - Telehealth Start Time 10:00 Stop Time 11:00 Chief Complaint Continued management of problems associated to trauma and depression symptoms Subjective Client states her insurance has declined surgery, stating they want her to do PT. Client identifiesa belief that this won't help for a [...] Sometimes gets overwhelmed with sound in addition totouch. Uses breaks to take time to cope [...] Age appropriate COGNITIVE FUNCTIONING: Within Average Range Diagnosis/Assessment/Treatment Plan 1. PTSD (post-traumatic stress disorder) (F43.10: Post-traumatic stress disorder, unspecified) 2. Recurrent severe major depressive disorder co-occurrent with anxiety (F33.2: Major depressive disorder, recurrent severe without psychotic features) Therapist Intervention Discuss tactics for sensory overload including planned sensory stimulation/reduction, stimulus control, and offers a referral for speech therapy assessment of possible auditory processing problems. Patient Assignment Encouraged patient to consider triggers for overload and to plan times for appropriate sensory stimulation/destressing Assessment and Plan Continue as before. Follow-up [...] Tobacco Use:. Never Smokeless Tobacco Use:. Cigarettes, Householdtobacco concerns: No. Yes, 06/04/2024 Family History Patient was adopted Family history is negativeNormalDayton Children'S HospitalComment on above: Result Comment: Electronically Signed By: Darlene Dillard\Date and Time Signed: 06/10/24 11:38 EDTMLR HEMOGLOBIN A1Con 09-84-3083Dyjwhnk [Mass/Vol]111 mg/dLNONH FmvpougaclDyL4w (Bld) [Mass fraction]5.5 %4.5 - 6.2 %[facility] Comment on above:ADA RECOMMENDED LIMIT 4.0 - 6.0 ADA THERAPEUTIC TARGET < 7.0 ACTION SUGGESTED > 7.0 CLINISYNCNOMS HealthcareAmbulatory Visit Summaryon [id number] Visit SummaryAmbulatory Visit Summary ASHLEE JALLOH :1985 Visit Date:06/04/2024 [...] 3:00 PM EDT With: Darlene Dillard Where: [facility] 2023 11:00 AM EDT With: Darlene Dillard Where: [facility] Sunday 10:00 AM EDT With: Lidia Jones Where: [address] [address]- Medications What How Much When Why Instructions Unchanged drospirenone (Slynd 4 mg oral tablet) Unchanged esomeprazole (Nexium 20 mg Cap-DR) 1 Capsules By Mouth Every day Unchanged naproxen (naproxen 500 mg Tab) 1 Tablets By Mouth 2 times a day Unchanged phentermine (phentermine 37.5 mg Tab) 1 Tablets By Mouth Every day Pre-op exam Non-smokerBMI 30.0-30.9,adult Unchanged ubrogepant (Ubrelvy 100 mg oral [...] you for choosing us for your care. [facility] Medicine Office/Clinic Noteon 16-03-3836Nxfpve Medicine Office/Clinic NoteFafloating hospital for children Medicine Office/Clinic Note Chief Complaint Weight Management [...] anymore. Would also like to discuss skin sensitivity/sensory/touch. In the past yr, has bothered her [...] (Z76.89: Persons encountering health services in other specifiedcircumstances) pt presents today for weight management. pt [...] Daily, # 30 tab(s), Refills(s) 0, Pharmacy: [facility] [id number], 161, cm, 06/04/24 9:57:00 EDT, Height/Length Dosing, 75.5, kg, 06/04/24 9:57:00 EDT, Weight Dosing phentermine, 37.5 mg = 1 tab(s), Oral, Daily, # 30 tab(s), Refills(s) 0, Pharmacy: [facility] [id number], 161.6, cm, 04/23/24 9:21:00 EDT, Height/Length Dosing, 78.7, kg, 04/23/24 9:21:00 EDT, Weight Dosing 4. Non-smoker (Z78.9: Other specified health status) continue not smoking Ordered: phentermine, 37.5 mg = 1 tab(s), Oral, Daily, # 30 tab(s), Refills(s) 0, Pharmacy: [facility] [id number], 161, cm, 06/04/24 9:57:00 EDT, Height/Length Dosing, 75.5, kg, 06/04/24 9:57:00 EDT, Weight Dosing phentermine, 37.5 mg = 1 tab(s), Oral, Daily, # 30 tab(s), Refills(s) 0, Pharmacy: [facility] [id number], 161.6, cm, 04/23/24 9:21:00 EDT, Height/Length Dosing, 78.7, kg, 04/23/24 9:21:00 EDT, Weight Dosing Orders: ubrogepant, 100 mg = 1 tab(s), Oral, Once, may repeat dose in 2 hours if needed, # 16 tab(s), Refills(s) 1, Pharmacy: [facility] [id number], 161, cm, 06/04/24 9:57:00 EDT, Height/Length Dosing, [...] Tobacco Use:. Never Smokeless Tobacco Use:. Cigarettes, Householdtobacco concerns: No. Yes, 06/04/2024 Family History Patient was adopted Family history is negative Immuni (more content not included)...[facility] Grady Memorial HospitalComment on above:Result Comment: Electronically Signed By: Lidia Jones\.taniya\Date and Time Signed: 06/04/24 10:43 EDTC-reactive proteinon 64-70-3266HVX [Mass/Vol]0.4 mg/dL0.000 - 0.744 mg/dLMagruder Memorial HospitalCRP [Mass/Vol]on 05-14-2024 Magruder Memorial HospitalC REACTIVE PROTEIN0.4 mg/dLNormal0.000-0.744PChildren's Hospital for RehabilitationComment on above:Performed By: #### 29227-1, 1988-01, 69-0, 69 #### [facility] ([id number]) [address] [place] [address], [address] [place] [address] #### 90501-7 #### [facility] ([id number]) [address] [place], [place] [address]ESR Photometric method (Bld) [Velocity]on 72-61-2360XhvEdjebhSt. Francis HospitalESR, ERYTHROCYTE SEDIMENTATION RATE4 mm/hNormal0-20Protestant Deaconess HospitalComment on above:Performed By: #### 94689-9, 1988-01, 6968-0, 69 #### [facility] ([id number]) [address] [place] [address], [address] [place] [address] #### 82615-8 #### [facility] ([id number]) [address] [facility],Erythrocyte Sedimentation Rate (ESR)on 55-90-6406IUH Photometric method (Bld) [Velocity]4 mm/h0 - 20 mm/hProMedica Health SystemMyeloperoxidase Ab Qn (S)on 31-73-0848Jmzxsdaxjodkuyp Ab<0.2Normal<1.0ProCleveland Clinic Mentor HospitalComment on above:Performed By: #### 57921-2, 1988-01, 6969-0, 6968- #### [facility] ([id number]) [address] [place] [address], [place] [address] #### 06884-5 #### [facility] ([id number]) [address] [place] [address],Neutrophil cytoplasmic Ab panel IF (S)on 54-19-4629i-ANCANegativeNormal NegativeProCleveland Clinic Mentor HospitalComment on above:Performed By: #### 17299-9, 1988-01, 6969-0, 6968 #### [facility] ([id number]) [address] [place] [address], [address] [place] [address] #### 71746-6 #### [facility] ([id number]) [address] [place] [address],p-ANCANegativeNormalNegativeProCleveland Clinic Mentor HospitalComment on above: Result Comment: NOTE Negative for cANCA and pANCA patterns by immunofluorescence. ADDITIONAL INFORMATION This test was developed and its performance characteristics determined by [facility] in a manner consistent with CLIA requirements. This test has not been cleared or approved by the U.S. Food and Drug Administration. Test Performed by: [facility] - [address] Reporter: Garth Patterson Ph.D.; CLIA# [id number] By: #### 94318- 1, 1988-01, 6969-0, 6968-2 #### [facility] ([id number]) [address] [facility], [address] [place] [address] #### 98604-4 #### [facility] ([id number]) [address] [facility],Proteinase 3 Ab Qn (S)on 51-32-3821Gpkzgwwfbe 3 IgG Ab<0.2Normal<1.0 Protestant Deaconess HospitalComment on above:Performed By: #### 98085-5, 1988-01, 6969-0, 6968-2 #### [facility] ([id number]) [address] [place] [address], [address] [place] [address] #### 76182-7 #### [facility] ([id number]) [address] [facility],XR SACROILIAC JOINTS MIN 3 VWSon 93-87-8334UW SACROILIAC JOINTS MIN 3 VWSXR SACROILIAC JOINTS MIN 3 VWS XR SACROILIAC JOINTS MIN 3 VWS Sacroiliac pain Findings: There is no fracture or destructive lesion. Impression: * No acute findings. Unremarkable sacroiliac joints. * Consider MRI if you suspect occult process. Finalized by Viraj Corey MD on 05/14/2024 6:53 PMNormalProMedica Upper Valley Medical Center XR Sacroiliac Joint 3 Viewson 21-42-7723CI SACROILIAC JOINTS MIN 3 VWS Sacroiliac pain Findings: There is no fracture or destructive lesion. Impression: * No acute findings. Unremarkable sacroiliac joints. * Consider MRI if you suspect occult process. Finalized by Viraj Corey MD on 05/14/2024 6:53 PMSECTViraj Merino MD - 05/14/2024 XR SACROILIAC JOINTS MIN 3 VWS Sacroiliac pain Findings: There is no fracture or destructive lesion. Impression: * No acute findings. Unremarkable sacroiliac joints. * Consider MRI if you suspect occult process. Finalized by Viraj Corey MD on 05/14/2024 6:53 PM Chiral QuestRadiology Study observation (narrative)ProMRange FuelsXR Sacroiliac Joint 3 ViewsOrdered By: Viraj Corey on 16-33-5935LomTeaond Health System Work Phone: ALL TOTAL PROTEINon 68-56-1413Rfwhtxd [Mass/Vol]8.1 g/dL6.4 - 8.2 g/dLNOMS HealthcareCLINISYNCNOMS HealthcareProvider Letteron [id number] LetterProvider Letter [address] [place] [address] April 29, [address] [place] [id number] : [address] Wayne Jesus MD, The above patient has been evaluated at your request for preoperative clearance. After assessment of available pertinent labs and diagnostic tests, I feel this patient is medicallyoptimized for surgery. Final discretion of whether the patient is cleared for surgery remains up tothe surgeon/anesthesiologist. Thank you, DAVION Rizzo-[facility] Medical CenterAmbulatory Visit Summaryon 49-28-2601Hkobwqtsmr Visit SummaryAmbulatory Visit Summary SHUBHAMASHLEE :1985 Visit Date:04/23/2024 Ambulatory Visit Instructions Your Diagnosis Pre-op exam Non-smoker BMI 30.0-30.9,adult Tests Performed Chest XR 2 Views -- Results Pending -- Please visit your patient portal for your results or contact your primary care physician. Your Care Team Attending Physician - Lidia Jones Primary Care Physician - Lidia Jones This Is Your Medications List desogestrel-ethinyl estradiol (Apri) esomeprazole (Nexium 20 mg Shakira) naproxen (naproxen 500 mg Tab) phentermine (phentermine [...] 9:00 AM EDT With: Darlene Dillard Where: [facility] Sunday 10:00 AM EDT With: Darlene Dillard Where: [facility] Sunday 10:00 AM EDT With: Lidia Jones Where: [address] [address]- Medications What How Much When Why Instructions New phentermine (phentermine 37.5 mg Tab) 1 Tablets By Mouth Every day Pre-op exam Non-smoker BMI 30.0-30.9,adult Pickup at [facility] [id number] Unchanged desogestrel-ethinyl estradiol (Apri) 1 Tablets By Mouth Every day Unchanged esomeprazole (Nexium 20 mg Cap-DR) 1 Capsules By Mouth Every day Unchanged naproxen (naproxen 500 mg Tab) 1 Tablets By Mouth 2 times a day Unchanged ubrogepant (Ubrelvy 100 mg oral tablet) 1 Tablets By Mouth Once may repeat dose in 2 hours if needed Pharmacy Information [facility] [id number]: [address] [place], [place] [phone] Allergies Nubain (Nausea) Silicone (simethicone) obsolete (Hives) [...] you for choosing us for your care. [facility] Medicine Office/Clinic Noteon 51-70-0455Yzxxtj Medicine Office/Clinic NoteMiravista Behavioral Health Center Medicine Office/Clinic Note HPI Staff Pt is here today to review EMG on BLE done 03/26/24. Surgery clearance for hip replacement May 21 in [place] History of Present Illness pt presents today [...] Daily, # 30 tab(s), Refills(s) 0, Pharmacy: [facility] [id number], 161.6, cm, 04/23/24 9:21:00 EDT, Height/Length Dosing, 78.7, kg, 04/23/24 9:21:00 EDT, Weight Dosing CBC w/ Auto Diff Comprehensive Metabolic Panel ECG 12 Lead Adult Est Preventative 18 to 39 years [address] HgbA1c PT & PTT UA with Cult Rflx XR Chest 2 Views 2. Sensory disorder (R20.9: Unspecified disturbances of skin sensation) patient has a pretty significant mental health history. was moved around different fosters homes asa child and was adopted at age 4. since she can remember, she has not been able to have any clothing covering her arms. if she has her arms covered she will start to itch, then gets burning then goesinto a full blown panic attack. will send referral to Janie Ferris for further evaluation. Ordered: Est Preventative 18 to 39 years [address] [facility] [place]ulatory Referral 3. PTSD (post-traumatic stress disorder) (F43.10: Post-traumatic stress disorder, unspecified) pt has never been screened or diagnosed and has never been to psych to discuss her childhood. Ordered: Est Preventative 18 to 39 years [id number] External Ambulatory Referral 4. Non-smoker (Z78.9: Other specified health status) continue not smoking Ordered: phentermine, 37.5 mg = 1 tab(s), Oral, Daily, # 30 tab(s), Refills(s) 0, Pharmacy: [facility] [id number], 161.6, cm, 04/23/24 9:21:00 EDT, Height/Length Dosing, 78.7, kg, 04/23/24 9:21:00 EDT, Weight Dosing phentermine, 37.5 mg = 1 tab(s), Oral, Daily, 30 day supply bmi 31.13, # 30 tab(s), Refills(s) 0, Pharmacy: [facility] [id number], 161.6, cm, 01/22/24 9:54:00 EDT, Height/Length Dosing, 76.3, kg, 01/22/24 9:54:00 EDT, Weight Dosing CBC w/ Auto Diff Comprehensive Metabolic Panel ECG 12 Lead Adult Est Preventative 18 to 39 years [address] [facility] Ambulatory Referral HgbA1c PT & PTT UA with Cult Rflx XR Chest 2 Views 5. BMI 30.0-30.9,adult (Z68.30: Body mass index [BMI] 30.0-30.9, adult) restarted adipex. medication agreement signed. RTC 6 weeks. pt is having surgery 05/21 so she may need to reschedule appointment Ordered: phentermine, 37.5 mg = 1 tab(s), Oral, Daily, # 30 tab(s), Refills(s) 0, Pharmacy: [facility] [id number], 161.6, cm, 04/23/24 9:21:00 EDT, Height/Length Dosing, 78.7, kg, 04/23/24 9:21:00 EDT, Weight Dosing CBC w/ Auto Diff Comprehensive Metabolic Panel ECG 12 Lead Adult Est Preventative 18 to 39 years [address] [facility] Ambulatory Referral HgbA1c PT & PTT [...] Nexium 20 mg Cap-DR (more content not included)...[facility] HospitalComment on above:Result Comment: Electronically Signed By: Lidia Jones\.br\Date and Time Signed: 04/23/24 10:06 EDTAmbulatory Visit Summaryon 24-03-9009Atlkbaeufr Visit SummaryAmbulatory Visit Summary ASHLEE JALLOH :1985 Visit Date:03/18/2024 Ambulatory Visit Instructions Your Diagnosis Recurrent severe major depressive disorder co-occurrent with anxiety Posttraumatic stress disorder Your Care Team Attending Physician - Jose LEMUS, Darlene Jenkins Primary Care Physician - Lidia [...] 10:00 AM EDT With: Darlene Dillard Where: [facility] [place] Sunday 10:00 AM EDT With: Darlene Dillard Where: [facility] Medications What How Much When [...] you for choosing us for your care. [facility] HospitalRAD - CT Reporton [id number] - CT [id number]#[id number] Meritus Medical CenterMR HIP RIGHT WO IV CONTRASTon [id number] HIP RIGHT WO IV CONTRASTEXAM: MR HIP RIGHT WO IV CONTRAST HISTORY: [...] superimposed on mild tendinosis. ELECTRONICALLY SIGNED BY: Lamont Romero AvailableAmbulatory Visit Summaryon 25-95-0066Lcipfkxtts Visit Summary ASHLEE JALLOH :1985 Visit Date:02/20/2024 [...] Appointments Sunday 10:00 AM EDT With: Jose LEMUS, Darlene Jenkins Where: [facility] [place] Medications What How [...] you for choosing us for your care. [facility] Medicine Office/Clinic Noteon 08-84-6252Yhmaxx Medicine Office/Clinic NoteHPI Staff Ashlee is a 39 year old [...] (Z76.89: Persons encountering health services in other specifiedcircumstances) total weight loss since September is 34 pounds. will not continue adipex since her BMI is 28 Ordered: cetirizine, 10 mg = 1 cap(s), Oral, Daily, PRN for allergy symptoms, # 30 cap(s), Refills(s) 1, [facility] [id number], 161.6, cm, 12/20/23 10:24:00 EDT, Height/Length Dosing, 77, kg, 12/20/23 10:24:00 EDT, Weight Dosing montelukast, 10 mg = 1 tab(s), Oral, qPM, # 30 tab(s), Refills(s) 0, [facility] [id number], 161.6, cm, 12/20/23 10:24:00 EDT, Height/Length Dosing, [...] is able to pass a q tip throughit. will order CT scan. pt will call [...] influenza virus vaccine, inacti (more content not included)...[facility] HospitalComment on above:Result Comment: Electronically Signed By: Lidia Jones\.br\Date and Time Signed: 02/20/24 09:50 EDTAmbulatory Visit Summaryon [id number] Visit Summary ASHLEE JALLOH :1985 Visit Date:02/19/2024 Ambulatory Visit Instructions Your Diagnosis Recurrent severe major depressive disorder co-occurrent with anxiety Posttraumatic stress disorder Your Care Team Attending Physician - Jose [facility]GE HOSPITALDarlene Primary Care Physician - Lidia Jones This Is Your Medications List [facility] Prescription (ESTRADIOL 1 MG TABLET) cetirizine (cetirizine [...] 8:20 AM EDT With: Lidia Jones [facility] Summaryon 59-89-0553Azodqkzuup Visit Summary ASHLEE JALLOH :1985 Visit Date:02/07/2024 [...] 8:00 AM EDT With: Darlene Dillard Where: [facility] Sunday 8:20 AM EDT With: Lidia Jones [facility] Studieson 94-51-4690Xnajh Studies [id number]#1.00[facility] HospitalAmbulatory Visit Summaryon 91-12-5198Cnvslnzfdn Visit Summary ASHLEE JALLOH :1985 Visit Date:01/22/2024 [...] 9:00 AM EDT With: Darlene Dillard Where: [facility] Sunday 8:20 AM EDT With: Lidia Jones Where: [facility] Medicine Office/Clinic Noteon 02-28-0067Rrxsww Medicine Office/Clinic NoteHPI Staff Ashlee is a 39 year old [...] (Z76.89: Persons encountering health services in other specifiedcircumstances) pt presents today for weight management. is down another 2 pounds. rtc 4 weeks 2. BMI 29.0-29.9,adult (Z68.29: Body mass index [BMI] 29.0-29.9, adult) BMI education complete 3. Non-smoker (Z78.9: Other specified health status) continue not smoking Ordered: phentermine, 37.5 mg = 1 tab(s), Oral, Daily, 30 day supply bmi 31.13, # 30 tab(s), Refills(s) 0, [facility] [id number], 161.6, cm, 01/22/24 9:54:00 EDT, Height/Length Dosing, 76.3, kg, 01/22/24 9:54:00 EDT, Weight Dosing phentermine, 37.5 mg = 1 tab(s), Oral, Daily, 30 day supply bmi 31.13, # 30 tab(s), Refills(s) 0, [facility] [id number], 161.6, cm, 12/20/23 10:24:00 EDT, Height/Length Dosing, 77, kg, 12/20/23 10:24:00 EDT, Weight Dosing ropinirole, 1 mg = 1 tab(s), Oral, Bedtime, 1 to 3 hours before bedtime, # 30 tab(s), Refills(s) 2,[facility] [id number], 161.6, cm, 05/18/23 10:58:00 EDT, Height/Length Dosing, [...] 07/02/2020 Recorded influenza virus vaccine, inactivated 07/14/2019 RecordedNoHolmes County Joel Pomerene Memorial HospitalComment on above:Result Comment: Electronically Signed By: Lidia Jones\.taniya\Date and Time Signed: 01/22/24 10:56 EDTInterdisciplinary Note - Social Workeron 72-53-8626Lemjdtrwslojpaqlz Note - Social WorkerConsult for positive depression screen received. SW made tc to patient to discuss this. She states that these issues have been ongoing since childhood and she knows she needs to get in to see someone. Patient was agreeable to a referral being sent to [facility] for follow up. She reports that she has anxiety, depression, and PTSD. Referral was sent. ANTHONY will remain available.[facility] HospitalAmbulatory Visit Summaryon 31-42-4216Jqksvdfyjw Visit Summary ASHLEE JALLOH :1985 Visit Date:12/20/2023 [...] 10:20 AM EDT With: Lidia Jones Where: [facility]Amb[facility] Summary ASHLEE JALLOH :1985 Visit Date:12/20/2023 [...] 10:20 AM EDT With: Lidia Jones Where: [facility] Medicine Office/Clinic Noteon [id number] Medicine Office/Clinic NoteChief Complaint weight loss HPI Staff Ashlee is [...] (Z76.89: Persons encountering health services in other specifiedcircumstances) pt presents today for weight management. pt is doing well. down 30 pounds since September. all questions answered. RTC 4 weeks 2. Obstructive apnea (G47.33: Obstructive sleep apnea (adult) (pediatric)) patients partner states that she stops breathing a lot at night and makes a lot of noises and snores very loudly. has never had sleep apnea testing. will order home test through [facility] 3. Loud snoring (R06.83: Snoring) see [...] 07/02/2020 Recorded influenza virus vaccine, inactivated 07/14/2019 RecordedNoHolmes County Joel Pomerene Memorial HospitalComment on above:Result Comment: Electronically Signed By: Lidia Jones\Date and Time Signed: 12/20/23 10:58 EDTPhysician Orderon [id number] [id number]#1.00TIFFNormal [facility] HospitalAmbulatory Visit Summaryon 70-75-8076Iupiojeznb Visit Summary ASHLEE JALLOH :1985 Visit Date:12/13/2023 Ambulatory Visit Instructions Your Diagnosis Myringitis of left ear BMI 31.0-31.9,adult Non-smoker Your Care Team Attending Physician - Lidia Jones Primary Care Physician - Lidia Jones This Is Your Medications List Misc Prescription (ESTRADIOL 1 MG TABLET) ciprofloxacin-dexamethasone otic (Ciprodex 0.3%-0.1% Susp-Otic) esomeprazole (Nexium 20 [...] 10:20 AM EDT With: Lidia Jones Where: [facility] Medicine Office/Clinic Noteon 34-47-7234Orjltg Medicine Office/Clinic NoteHPI Staff Ashlee is a 38 year old female presenting for ER follow up ER followup: Hospital: [facility] (records requested 12/11/23) Visit date: 12/11/23 Symptoms [...] drops. follows up in 1 month for hearingscreen. right ear is not red but clear [...] 07/02/2020 Recorded influenza virus vaccine, inactivated 07/14/2019 RecordedOhioHealth Grady Memorial HospitalComment on above:Result Comment: Electronically Signed By: Lidia Jones\.br\Date and Time Signed: 12/13/23 11:15 EDTAuth for Release of Medical Recordson 56-84-1964Rnjq for Release of Medical Records [id number]#1.00TIFFNationwide Children's Hospital Medicine Office/Clinic Noteon 90-75-5408Ozkujo Medicine Office/Clinic NoteHPI Staff Ashlee is a 38 year old [...] (Z76.89: Persons encountering health services in other specifiedcircumstances) pt presents today for weight management. is [...] 07/02/2020 Recorded influenza virus vaccine, inactivated 07/14/2019 RecordedNormProMedica Defiance Regional HospitalComment on above:Result Comment: Electronically Signed By: Lidia Jones.br\Date and Time Signed: 11/23/23 10:25 EDTAmbulatory Visit Summary on 65-72-7641Dgbmgoldaq Visit Summary ASHLEE JALLOH :1985 Visit Date:10/25/2023 [...] 10:20 AM EDT With: Lidia Jones Where: [facility] Medicine Office/Clinic Noteon 33-83-4965Gheabn Medicine Office/Clinic NoteHPI Staff Patient presents for weight follow up. [...] (Z76.89: Persons encountering health services in other specifiedcircumstances) pt presents today for weight management. pt is doing well down 12 pounds. was having constipation. but started stool softener. all questions answered. RTC 4 weeks. 2. BMI 32.0-32.9,adult (Z68.32: Body mass index [BMI] 32.0-32.9, adult) BMI education complete Ordered: phentermine, 37.5 mg = 1 tab(s), Oral, Daily, # 30 tab(s), Refills(s) 0, Pharmacy: [facility] [id number], 161.6, cm, 09/25/23 11:43:00 EST, Height/Length Dosing, 90.7, kg, 09/25/23 11:43:00 EST, Weight Dosing phentermine, 37.5 mg = 1 tab(s), Oral, Daily, # 30 tab(s), Refills(s) 0, Pharmacy: [facility] [id number], 161.6, cm, 10/25/23 9:42:00 EST, Height/Length Dosing, 85.4, kg, 10/25/23 9:42:00 EST, Weight Dosing 3. Non-smoker (Z78.9: Other specified health status) continue not smoking Ordered: phentermine, 37.5 mg = 1 tab(s), Oral, Daily, # 30 tab(s), Refills(s) 0, Pharmacy: [facility] [id number], 161.6, cm, 09/25/23 11:43:00 EST, Height/Length Dosing, 90.7, kg, 09/25/23 11:43:00 EST, Weight Dosing phentermine, 37.5 mg = 1 tab(s), Oral, Daily, # 30 tab(s), Refills(s) 0, Pharmacy: [facility] [id number], 161.6, cm, 10/25/23 9:42:00 EST, Height/Length Dosing, [...] 07/02/2020 Recorded influenza virus vaccine, inactivated 07/14/2019 RecordedOhioHealth Grady Memorial HospitalComment on above:Result Comment: Electronically Signed By: Lidia Jones\.br\Date and Time Signed: 10/25/23 10:36 ESTRAD - Ultrasound Report on [id number] - Ultrasound Report [id number]#1.00TIFFOhioHealth Grady Memorial HospitalBMPon 40-32-5012Lwcic gap [Moles/Vol]11 mmol/L9 - 17 mmol/LBON [facility] HEALTHCalcium [Mass/Vol]9.3 mg/dL8.6 - 10.4 mg/dLBON [facility] HEALTH Chloride [Moles/Vol]103 mmol/L98 - 107 mmol/LBON [facility] HOSPITALCO2 [Moles/Vol]22 mmol/L20 - 31 mmol/LBON [facility] HOSPITALCreatinine [Mass/Vol] 0.7 mg/dL0.5 - 0.9 mg/dLBON GOOD SAMARITAN HOSPITALGFR/1.73 sq M.predicted MDRD (S/P/Bld) [Vol rate/Area]- PINFBON GOOD SAMARITAN HOSPITALComment on above: These results are not intended [...] therapy that affects renal tubular secretion. Glucose [Mass/Vol]134 mg/gPRmqi36 - 99 mg/dLBON [facility] MED[facility] CENTERApplitools [facility] Interpretation and review of laboratory resultsAbnormalBON [facility]OS[facility]ITAL Potassium [Moles/Vol]4.0 mmol/L3.7 - 5.3 mmol/LBON SECMER[facility] ALLEN HOSPITALSodium [Moles/Vol]136 mmol/L135 - 144 mmol/LBON [facility]MER[facility] ALLEN HOSPITALUrea nitrogen [Mass/Vol]11 mg/dL6 - 20 mg/dLBON GOOD SAMARITAN HOSPITALUrea nitrogen/Creatinine [Mass ratio]16 mg/mg9 - 20BON [facility] HEALTHBON SECMERCY HEALTH ALLEN HOSPITALCBC with Auto Differentialon 65-20-1900Qkfascpud (Bld) [#/Vol]0.04 10*3/uLBON SECMER[facility] ALLEN HOSPITALBasophils/100 WBC (Bld)0 %0 - 2 %[facility] Eosinophils (Bld) [#/Vol]0.04 10*3/uLBON [facility] JO[facility]OM[facility] MEMORIAL HOSPITALEosinophils/100 WBC (Bld)0 %Low1 - 4 %[facility] HOSPITALErythrocyte distribution width (RBC) [Ratio]12.4 %11.8 - 14.4 %[facility] HOSPITALHematocrit (Bld) [Volume fraction]39.2 %36.3 - 47.1 %[facility] HOSPITALHemoglobin (Bld) [Mass/Vol] 13.1 g/dL11.9 - 15.1 g/dLBON SECMERCY [facility] ALLEN HOSPITALImmature granulocytes (Bld) [#/Vol]0.03 10*3/uLBON [facility] HOSPITALImmature granulocytes/100 WBC (Bld)0 %0BON [facility] HEALTHInterpretation and review of laboratory results AbnormalBON [facility] HEALTHLymphocytes/100 WBC (Bld)8 %Low24 - 43 %[facility] HOSPITALLymphocytes/100 WBC (Bld)0.83 %LowCARILION FRANKLIN MEMORIAL HOSPITAL MCH (RBC) [Entitic mass]29.6 pg25.2 - 33.5 pgBON GOOD SAMARITAN HOSPITALMCHC (RBC) [Mass/Vol]33.4 g/dL28.4 - 34.8 g/dLBON SECMERCY HEALTH ALLEN HOSPITALMCV (RBC) [Entitic vol]88.7 fL82.6 - 102.9 fLMARY WASHINGTON HOSPITAL HEALTHMonocytes/100 WBC (Bld)7 %3 - 12 %[facility] HEALTHMonocytes/100 WBC (Bld)0.77 %[facility] HOSPITALNeutrophils/100 WBC (Bld)85 %High36 - 65 %[facility] Nucleated RBC/100 WBC (Bld) [Ratio]0.0 %0.0 per 100 WBCCARILION FRANKLIN MEMORIAL HOSPITAL Platelet mean volume (Bld) [Entitic vol]10.0 fL8.1 - 13.5 fLMARY WASHINGTON HOSPITAL HEALTHPlatelets (Bld) [#/Vol]262 10*3/uLBON [facility]ITAL HEALTHRBC (Bld) [#/Vol]4.42 10*6/uL3.95 - 5.11 m/uLCARILION FRANKLIN MEMORIAL HOSPITALSegmented neutrophils/100 WBC (Bld)8.67 %HighCARILION FRANKLIN MEMORIAL HOSPITALWBC other (Bld) [#/Vol]10.4BON [facility] MEDICAL CENTERCOVID-19, Rapidon 59-92-5187Vppptjtkogmgcz and review of laboratory resultsAbnormalCARILION FRANKLIN MEMORIAL HOSPITALSARS-CoV-2 (COVID-19) RdRp gene GARO+probe Ql (Resp)DetectedAbnormal Not DetectedInova Fair Oaks Hospital on above: Rapid NAAT: The specimen is [...] this assay. Fact sheet for Healthcare Providers: https://www.fda.gov/media/551945/download Fact sheet for Patients: https://www.fda.gov/media/676030/download Methodology: Isothermal Nucleic Acid Amplification Results reported to the appropriate Health Department Specimen Description.NASOPHARYNGEAL SWABLIFEPOINT HEALTHHCG Qualitative, Serumon 66-65-1306KQE ( test) QlNegative NEGATIVEInova Fair Oaks Hospital on above:Specimens with hCG levels near the threshold of the test (25 mIU/mL) may give a negative or indeterminate result. In such cases, another test should be performed with a new specimen in 48-72 hours. If early is suspected clinically in this setting, correlation with quantitative serum b-hCG level is suggested. [employer] has confirmed the use of plasma for this test. This has not been cleared or approved by the U.S. Food and Drug Administration. The FDA has determined that such clearance is not necessary. [facility] HOSPITALPortable XR Chest AP single viewon . No acute cardiopulmonary disease. MHPN RIS CONSOLIDATEDEXAMINATION: ONE XRAY VIEW OF THE CHEST 09/28/2023 11:41 am COMPARISON: 03/15/2023. HISTORY: ORDERING SYSTEM PROVIDED HISTORY: cough TECHNOLOGIST PROVIDED HISTORY: cough FINDINGS: The cardiac silhouette and mediastinal contours are normal. The lungs are clear. No pleural effusion or pneumothorax. There is an old left clavicular fracture. [facility] Luis Law MD - 09/28/2023 EXAMINATION: ONE XRAY VIEW OF THE CHEST 09/28/2023 11:41 am COMPARISON: 03/15/2023. HISTORY: ORDERING SYSTEM PROVIDED HISTORY: cough TECHNOLOGIST PROVIDED HISTORY: cough FINDINGS: The cardiac silhouette and mediastinal contours are normal. The lungs are clear. No pleural effusion or pneumothorax. There is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 but not opted for at this time: [] Prescribed medication that requires intensive monitoring for toxicity: [] I have reviewed the patient?s medication list for medication interactions/contraindications and/or for upcoming procedures: [yes or no] [...] Use:. Never Smokeless tobacco use:. Missy Sims PA-CUC Medical CenterComment on above: Order Comment: duplicateC-Reactive Proteinon 76-19-7387WDP [Mass/Vol]3.1 mg/L0 - 5 mg/LBON SECOURS E96 FLOWER HOSPITALDS Industries SECCuriosityville H[facility]ORIAL HOSPITALRheumatoid Factoron 31-22-6869Mrvmosqchv Factor<10NINFBON SECOURS [facility] SECCuriosityville [facility] SOUTHApplitools HEALTHSedimentation Rateon 67-17-1116Zdt Utkv4YSK SECASPIRUS STANLEY HOSPITALPAP ACOG PANEL 2: 30 to 65on 04-04-2022..NormalKindred Hospital DaytonComment on above:Result Comment: Performed at: WBPerformed By: #### [id number] #### [facility] [address] [place] [address] Dr. Cesar Ceron Gdln ACOG Nwwndyn51-76KfvtdbNouMemorial HospitalComment on above:Performed By: #### [id number] #### [facility] [address] [place] [address] Dr. Cesar TolbertDIAGNOSIS:CommentRegency Hospital Cleveland EastComsouthwest regional rehabilitation center on above: Result Comment: NEGATIVE FOR INTRAEPITHELIAL LESION OR MALIGNANCY. THIS SPECIMEN WAS RESCREENED PART OF OUR UTILITY BILL COMPLAINTS INVESTIGATOR PROGRAM. Performed at: WBPerformed By: #### [id number] #### [facility] [address] [place] [address] Dr. Cesar TolbertHPV AptimaPositiveAbnormalNegativeKindred Hospital DaytonComsouthwest regional rehabilitation center on above:Result Comment: This nucleic acid amplification test detects fourteen high-risk HPV types (16,18,31,33,35,39,45,51,52,56,58,59,66,68) without differentiation. Performed at: =GPerformed By: #### [id number] #### [facility] [address] [place] [address] Dr. Cesar Santiago Genotype 16NegativeNormalNegativeKindred Hospital DaytonComment on above:Result Comment: Performed at: =GPerformed By: #### [id number] #### [facility] [address] [place] [address] Dr. Cesar Santiago Genotype 18,45NegativeNormalNegativeKindred Hospital Dayton Comment on above:Result Comment: Performed at: =GPerformed By: #### [id number] #### [facility] [address] [place] [address] Dr. Cesar TolbertMethodology:CommentOhioHealth Dublin Methodist Hospital on above: Result Comment: This liquid based ThinPrep(R) pap test was screened with the use of an image guided system. Performed at: WBPerformed By: #### [id number] #### [facility] [address] [place] [address] Dr. Cesar TolbertNote:CommentOhioHealth Dublin Methodist Hospital on above:Result Comment: The Pap smear is a screening test designed to aid in the detection of premalignant and malignant conditions of the uterine cervix. It is not a diagnostic procedure and should not be used as the sole means of detecting cervical cancer. Both false-positive and false-negative reports do occur. . Performed at: WBPerformed By: #### [id number] #### [facility] [address] [place] [address] Dr. Cesar TolbertPerformed by:CommentOhioHealth Dublin Methodist Hospital on above: Result Comment: Luis Miguel Collier, Scabbler (ASCP) Performed at: WBPerformed By: #### [id number] #### [facility] [address] [place] [address] Dr. Cesar TolbertQC reviewed by:[facility] on above:Result Comment: Susan Bazan, Scabbler (ASCP) Performed at: WBPerformed By: #### [id number] #### [facility] [address] [place], [place] [address] Dr. Cesar Lama adequacy:CommentNormOhioHealth Shelby HospitalComment on above:Result Comment: Satisfactory for evaluation. No endocervical component is identified. Performed at: WBPerformed By: #### [id number] #### [facility] [address] [address] [address] Cesar Pham 10-57-6004nMZN Coag (Bld) [Time]27.4 [facility]. John of God HospitalComment on above: IV Heparin Therapy Range: 62.0-94.0 [facility] Methodist Hospitalsic Metabolic Panelon 37-38-3712Azlpm gap [Moles/Vol]13 mmol/L9 - 17 mmol/LMercy HealthCalcium [Mass/Vol]9.3 mg/dL8.6 - 10.4 mg/dLPromedica Toledo Hospital Chloride [Moles/Vol]100 mmol/L98 - 107 mmol/LMercy HealthCO2 [Moles/Vol]24 mmol/L20 - 31 mmol/LMercy HealthCreatinine [Mass/Vol]0.77 mg/dL0.50 - 0.90 mg/dL [facility] HospitalGFR >60>60 mL/minMemorial Health System [facility] Hospital HealthGFR Non->60>60 mL/minPromedica Toledo HospitalGlucose [Mass/Vol]121 mg/wHSqzx30 - 99 mg/dL [facility] HospitalInterpretation and review of laboratory resultsAbnormalPromedica Toledo Hospital Potassium [Moles/Vol]4.1 mmol/L3.7 - 5.3 mmol/LMercy HealthSodium [Moles/Vol]137 mmol/L135 - 144 mmol/LMercy HealthUrea nitrogen (BldV) [Mass/Vol]11 mg/dL6 - 20 mg/dLPromedica Toledo HospitalUrea nitrogen/Creatinine (Bld) [Mass ratio]14Agnesian HealthCareCBCon 62-41-9776Rqzkhbclwe (Bld) [Volume fraction]39.0 %36.3 - 47.1 %[facility] HospitalHemoglobin.gastrointestinal spec 1 Ql (Stl)12.4 g/dL11.9 - 15.1 g/dLSt. Mary's Medical Center, Ironton CampusH (RBC) [Entitic mass]27.4 pg25.2 - 33.5 pgSt. Mary's Medical Center, Ironton CampusHC (RBC) [Mass/Vol]31.8 g/dL28.4 - 34.8 g/dLSt. Mary's Medical Center, Ironton CampusV (RBC) [Entitic vol]86.3 fL 82.6 - 102.9 fLPromedica Toledo HospitalNRBC Automated0.00.0 per 100 WBCPromedica Toledo HospitalPlatelet distribution width (Bld) [Ratio]12.8 %11.8 - 14.4 %[facility] HospitalPlatelet mean volume (Bld) [Entitic vol]9.8 fL8.1 - 13.5 fLPromedica Toledo HospitalPlatelets (Bld) [#/Vol] 290 10*3/uLPromedica Toledo HospitalRBC (Bld) [#/Vol]4.52 10*6/uL3.95 - 5.11 m/[facility] WBC (Bld) [#/Vol]7.8 10*3/uLAgnesian HealthCareLaboratory - Chemistry and Chemistry - challengeon 54-65-1585WEN/1.73 sq M.predicted MDRD (S/P/Bld) [Vol rate/Area][facility] HospitalComment on above:Average GFR for 30-39 years old: 107 mL/min/1.73sq m Chronic Kidney Disease: <60 mL/min/1.73sq m Kidney failure: <15 mL/min/1.73sq m eGFR calculated using average adult body mass. Additional eGFR calculator available at: http://www.[employer]ights/multiple_crcl_2011.htm Stage 1: Some kidney damage normal GFR Stage 2: Mild kidney damage GFR 60-89 Stage 3: Moderate kidney damage GFR 30-59 Stage 4: Severe kidney damage GFR 15-29 Stage 5: Severe kidney damage GFR <15 ESRD - chronic treatment by dialysis or transplant Protime-INRon 80-28-8398KBT Coag (Bld) [Relative time]1.1 {INR}[facility] Comment on above: Non-therapeutic Range: INR = 0.9-1.2 Therapeutic Range: Moderate Anticoagulant Intensity: INR = 2.0-3.0 High Anticoagulant Intensity: INR = 2.5-3.5 PT Coag (PPP) [Time]13.9 [facility] MindieWood County HospitalSplitGigsNEW HORIZONS [facility] Auto DifferentialOrdered By: Tiffany Tejeda on 14-91-3636Yaqkocwk Eos #0.17Wood County HospitalVoxel.pl Phone: absolute Immature Granulocyte<0.03Wood County HospitalVoxel.pl Phone: absolute Lymph #2.54[facility] County HospitalVoxel.pl Phone: absolute [place] #0.51Wood County HospitalVoxel.pl Phone: basophils (Bld) [#/Vol]0.03 10*3/uLWood County HospitalVoxel.pl Phone: basophils/100 WBC (Bld)0 %0 - 2 %DentalFran [employer] Phone: differential TypeNOT REPORTEDWood County HospitalVoxel.pl Phone: eosinophils/100 WBC (Bld)2 %1 - 4 %[facility] [employer] Phone: Hematocrit (Bld) [Volume fraction]35.2 %Low36.3 - 47.1 %DentalFran [facility] Phone: Hemoglobin.gastrointestinal spec 1 Ql (Stl)11.0 g/dL Low11.9 - 15.1 g/dLWood County HospitalVoxel.pl Phone: Immature granulocytes/100 WBC (Bld)0 %0Wood County HospitalVoxel.pl Phone: Interpretation and review of laboratory results AbnormalWood County HospitalVoxel.pl Phone: lymphocytes/100 WBC (Bld)31 %24 - 43 %[facility]entalFran [employer] Phone: MCH (RBC) [Entitic mass]27.6 pg25.2 - 33.5 pgWood County HospitalVoxel.pl Phone: MCHC (RBC) [Mass/Vol]31.3 g/dL28.4 - 34.8 g/dLWood County HospitalVoxel.pl Phone: MCV (RBC) [Entitic vol]88.2 fL82.6 - 102.9 fLDentalFran Mid-Atlantic Partnership Phone: [phone]/100 WBC (Bld)6 %3 - 12 %[facility] Phone: NRBC Automated0.00.0 per 100 WBCDentalFran Mid-Atlantic Partnership Phone: Slatelet distribution width (Bld) [Ratio]13.2 %11.8 - 14.4 %[facility] [employer] Phone: [phone] EstimateNOT REPORTEDWood County HospitalVoxel.pl Phone: Platelet mean volume (Bld) [Entitic vol]10.1 fL8.1 - 13.5 fLDentalFran Mid-Atlantic Partnership Phone: [phone] (Bld) [#/Vol]290 10*3/[employer] Phone: RBC (Bld) [#/Vol]3.99 10*6/uL3.95 - 5.11 m/[employer] Phone: [phone] (Bld) [#/Vol]NOT REPORTEDWood County HospitalVoxel.pl Phone: Segmented neutrophils/100 WBC (Bld)61 %36 - 65 %DentalFran [employer] Phone: Segs Absolute4.91Wood County HospitalVoxel.pl Phone: WBC (Bld) [#/Vol]8.2 10*3/uLDentalFran Mid-Atlantic Partnership Phone: [phone] (Bld) [#/Vol]NOT REPORTEDWood County HospitalVoxel.pl Phone: [phone] County HospitalVoxel.pl Phone: comprehensive Metabolic PanelOrdered By: Tiffany Tejeda on 64-39-6279Akoprft [Mass/Vol]4.6 g/dL3.5 - 5.2 g/dLWood County HospitalVoxel.pl Phone: Albumin/Globulin [Mass ratio]1.8 {ratio}[facility] [employer] Phone: HLP (Bld) [Catalytic activity/Vol]89 U/L35 - 104 U/L [facility] [employer] Work Phone: XLT [Catalytic activity/Vol]21 U/L5 - 33 U/LMkettering health main campusy [employer] Work Phone: Knion gap [Moles/Vol]11 mmol/L9 - 17 mmol/LMkettering health main campusy [employer] Work Phone: CST [Catalytic activity/Vol]22 U/L<32[facility] [employer] Phone: bilirubin [Mass/Vol]0.44 mg/dL0.3 - 1.2 mg/dLMemorial Health System [facility] [employer] Phone: calcium [Mass/Vol]9.6 mg/dL8.6 - 10.4 mg/dLMemorial Health System [facility] [employer] Phone: Xhloride [Moles/Vol]101 mmol/L98 - 107 mmol/LMkettering health behavioral medical center [employer] Work Phone: cO2 [Moles/Vol]25 mmol/L20 - 31 mmol/LMkettering health main campusy [employer] Work Phone: creatinine [Mass/Vol]0.69 mg/dL0.50 - 0.90 mg/dLMemorial Health System [facility] [employer] Phone: Free PSA/Total PSA [Mass fraction]7.2 g/dL6.4 - 8.3 g/dLMemorial Health System [facility] Hospital [employer] Phone: GFR >60>60 mL/minMemorial Health System Marietta [facility] Hospital [employer] Work Phone: GFR Non->60>60 mL/minMemorial Health System Marietta [facility] Hospital [employer] Work Phone: Glucose [Mass/Vol]102 mg/cKPmkn15 - 99 mg/dLMemorial Health System [facility] [employer] Phone: Interpretation and review of laboratory results AbnormalMemorial Health System Marietta Memorial Hospital [employer] Work Phone: potassium [Moles/Vol]4.0 mmol/L3.7 - 5.3 mmol/LMkettering health main campusy [employer] Phone: sodium [Moles/Vol]137 mmol/L135 - 144 mmol/LMkettering health main campusy [employer] Phone: Urea nitrogen (BldV) [Mass/Vol]26 mg/dLHigh6 - 20 mg/dLWood County HospitalVoxel.pl Phone: Urea nitrogen/Creatinine (Bld) [Mass ratio]38HighWood County HospitalVoxel.pl Phone: [facility] HospitalVoxel.pl Phone: Iron and TIBCOrdered By: Tiffany Tejeda on 05-31-2021 Interpretation and review of laboratory resultsAbnormalWood County HospitalVoxel.pl Phone: Iron [Mass/Vol]38 ug/dL37 - 145 ug/dLWood County HospitalVoxel.pl Phone: Iron Ubqcbasqeg74 %Low20 - 55 %[facility] NorthContext [employer] Phone: TIBC389 ug/dL250 - 450 ug/dLWood County HospitalVoxel.pl Phone: UIBC351 ug/uXLksi354 - 347 ug/dLWood County HospitalVoxel.pl Phone: [facility] Phone: laboratory - Chemistry and Chemistry - challenge Ordered By: Tiffany Tejeda on [id number]/1.73 sq M.predicted MDRD (S/P/Bld) [Vol rate/Area][facility] NorthContext [facility] Phone: comment on above:Average GFR for 30-39 years old: 107 mL/min/1.73sq m Chronic Kidney Disease: <60 mL/min/1.73sq m Kidney failure: <15 mL/min/1.73sq m eGFR calculated using average adult body mass. Additional eGFR calculator available at: http://www.[employer].Braclet/multiple_crcl_2012.htm Stage 1: Some kidney damage normal GFR Stage 2: Mild kidney damage GFR 60-89 Stage 3: Moderate kidney damage GFR 30-59 Stage 4: Severe kidney damage GFR 15-29 Stage 5: Severe kidney damage GFR <15 ESRD - chronic treatment by dialysis or transplant Lipid PanelOrdered By: Tiffany Tejeda on [id number] [Mass/Vol]243 mg/dL High<200[facility] Phone: comment on above: Cholesterol Guidelines: <200 Desirable 200-240 Borderline >240 Undesirable Cholesterol in HDL [Mass/Vol]51 mg/dL>40[facility] Phone: comment on above: HDL Guidelines: <40 Undesirable 40-59 Borderline >59 Desirable Cholesterol in LDL [Mass/Vol]167 mg/dLHigh0 - 130 mg/dLWood County HospitalVoxel.pl Phone: comment on above: LDL Guidelines: <100 Desirable 100-129 Near to/above Desirable 130-159 Borderline >159 Undesirable Direct (measured) LDL and calculated LDL are not interchangeable tests. Cholesterol in VLDL [Mass/Vol]NOT REPORTED1 - 30 mg/dLWood County HospitalVoxel.pl Phone: cholesterol.total/Cholesterol in HDL [Mass ratio]4.8 {ratio}<5[facility] Phone: Interpretation and review of laboratory results AbnormalWood County HospitalVoxel.pl Phone: Triglyceride [Mass/Vol]127 mg/dL<150[facility] Phone: comment on above: Triglyceride Guidelines: <150 Desirable 150-199 Borderline 200-499 High >499 Very high Based on AHA Guidelines for fasting triglyceride, June 2012. [facility] Phone: rheumatoid FactorOrdered By: Tiffany Tejeda on 05-31-2021 Rheumatoid Factor<10<14 IU/mLWood County HospitalVoxel.pl Phone: [facility] Phone: sedimentation rate, automatedOrdered By: Tiffany Tejeda on [id number] Rate10 mm0 - 20 mmWood County HospitalVoxel.pl Phone: [employer] Work Phone: T4, FreeOrdered By: Tiffany Tejeda on 05-31-2021 Thyroxine, Free1.22 ng/dL0.93 - 1.70 ng/dLWood County HospitalSplitGigs Work Phone: [facility] [place] Work Phone: TSH without ReflexOrdered By: Tiffany Tejeda on [id number] Qn2.47 m[IU]/LMercy [place] Work Phone: [employer] Work Phone: aPTTOrdered By: Rosas Pendleton on [id number] Coag (Bld) [Time]24.4 [facility] Work Phone: comment on above: IV Heparin Therapy Range: 62.0-94.0 [facility] [employer] Work Phone: basic Metabolic PanelOrdered By: Rosas Pendleton on [id number] gap [Moles/Vol]10 mmol/L9 - 17 mmol/LMercy [place] Work Phone: calcium [Mass/Vol]9.5 mg/dL8.6 - 10.4 mg/dLWood County HospitalVoxel.pl Phone: chloride [Moles/Vol]104 mmol/L98 - 107 mmol/LMercy [place] Work Phone: cO2 [Moles/Vol]22 mmol/L20 - 31 mmol/LMercy [place] Work Phone: creatinine [Mass/Vol]0.83 mg/dL0.50 - 0.90 mg/dLWood County HospitalSplitGigs Work Phone: GFR >60>60 mL/minWood County HospitalSplitGigs Work Phone: GFR Non->60>60 mL/minWood County HospitalSplitGigs Work Phone: Glucose [Mass/Vol]119 mg/aFKiup99 - 99 mg/dLMemorial Health [facility] [employer] Phone: Interpretation and review of laboratory results AbnormalWood County HospitalSplitGigs Work Phone: potassium [Moles/Vol]4.7 mmol/L3.7 - 5.3 mmol/LMkettering health main campusy [place] Work Phone: sodium [Moles/Vol]136 mmol/L135 - 144 mmol/LMercy [place] Work Phone: Urea nitrogen (BldV) [Mass/Vol]21 mg/dLHigh6 - 20 mg/dLMemorial Health System [facility] Work Phone: Urea nitrogen/Creatinine (Bld) [Mass ratio]25HighWood County HospitalVoxel.pl Phone: [facility] [employer] Phone: cBCOrdered By: Rosas Pendleton on [id number] (Bld) [Volume fraction]35.9 %Low36.3 - 47.1 %[facility] [employer] Work Phone: Hemoglobin.gastrointestinal spec 1 Ql (Stl)11.8 g/dL Low11.9 - 15.1 g/dLMemorial Health System [facility] [employer] Phone: Interpretation and review of laboratory results AbnormalMemorial Health System [facility] [employer] Phone: MCH (RBC) [Entitic mass]28.1 pg25.2 - 33.5 pgMemorial Health System Marietta [facility] Hospital [employer] Work Phone: MCHC (RBC) [Mass/Vol]32.9 g/dL28.4 - 34.8 g/dLMemorial Health System [facility] Hospital [employer] Phone: MCV (RBC) [Entitic vol]85.5 fL82.6 - 102.9 fLWood County HospitalVoxel.pl Phone: NRBC Automated0.00.0 per 100 WBCMemorial Health System Marietta Memorial Hospital [employer] Work Phone: platelet distribution width (Bld) [Ratio]12.7 %11.8 - 14.4 %[facility] Phone: platelet mean volume (Bld) [Entitic vol]10.3 fL8.1 - 13.5 fLDentalFran Mid-Atlantic Partnership Phone: platelets (Bld) [#/Vol]325 10*3/[employer] Phone: RBC (Bld) [#/Vol]4.20 10*6/uL3.95 - 5.11 m/[employer] Phone: WBC (Bld) [#/Vol]7.2 10*3/[employer] Phone: [facility] Phone: Hemoglobin U4CWuhzidv By: Rosas Helder on [id number] [Mass/Vol]120 mg/dLDentalFran Mid-Atlantic Partnership Phone: comment on above:The ADA and AACC recommend providing the estimated average glucose result to permit better patient understanding of their HBA1c result. HbA1c (Bld) [Mass fraction]5.8 %4.0 - 6.0 %[facility] Phone: [facility] Phone: laboratory - Chemistry and Chemistry - challenge Ordered By: Rosas Pendleton on [id number]/1.73 sq M.predicted MDRD (S/P/Bld) [Vol rate/Area][facility] Phone: comment on above:Average GFR for 30-39 years old: 107 mL/min/1.73sq m Chronic Kidney Disease: <60 mL/min/1.73sq m Kidney failure: <15 mL/min/1.73sq m eGFR calculated using average adult body mass. Additional eGFR calculator available at: http://www.[employer].Braclet/multiple_crcl_2012.htm Stage 1: Some kidney damage normal GFR Stage 2: Mild kidney damage GFR 60-89 Stage 3: Moderate kidney damage GFR 30-59 Stage 4: Severe kidney damage GFR 15-29 Stage 5: Severe kidney damage GFR <15 ESRD - chronic treatment by dialysis or transplant Protime-INROrdered By: Rosas Pendleton on [id number] Coag (Bld) [Relative time]1.1 {INR}[facility] Phone: comment on above: Non-therapeutic Range: INR = 0.9-1.2 Therapeutic Range: Moderate Anticoagulant Intensity: INR = 2.0-3.0 High Anticoagulant Intensity: INR = 2.5-3.5 Interpretation and review of laboratory resultsAbnofirsthealth moore regional hospitalDentalFran [facility] Phone: pT Coag (PPP) [Time]14.3 [facility] CenterContext [facility] [facility] Phone: [facility] Phone: XR CHEST (2 VW)Ordered By: Rosas Helder on [id number] acute process.[facility] Phone: eXAMINATION: TWO XRAY VIEWS OF THE CHEST 04/18/2021 [...] 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 IMPRESSION: No acute process. [facility] Phone: [facility] Phone: cBC Auto DifferentialOrdered By: Charles Pearce on 69-14-0920Udlhwsid Eos #0.18[facility] Phone: absolute Immature Granulocyte0.03[facility] Phone: absolute Lymph #2.08[facility] Phone: absolute [place] #0.70[facility] Phone: basophils (Bld) [#/Vol]0.06 10*3/uLWood County HospitalVoxel.pl Phone: basophils/100 WBC (Bld)1 %0 - 2 %[facility] Phone: differential TypeNOT REPORTEDWood County HospitalVoxel.pl Phone: eosinophils/100 WBC (Bld)2 %1 - 4 %[facility] Phone: Hematocrit (Bld) [Volume fraction]36.5 %36.3 - 47.1 % [facility] Phone: Hemoglobin.gastrointestinal spec 1 Ql (Stl)11.8 g/dL Low11.9 - 15.1 g/dLWood County HospitalVoxel.pl Phone: Immature granulocytes/100 WBC (Bld)0 %0[facility] Phone: Interpretation and review of laboratory results AbnormalWood County HospitalVoxel.pl Phone: lymphocytes/100 WBC (Bld)23 %Low24 - 43 %[facility] Phone: MCH (RBC) [Entitic mass]28.1 pg25.2 - 33.5 pgWood County HospitalSplitGigs Work Phone: MCHC (RBC) [Mass/Vol]32.3 g/dL28.4 - 34.8 g/dLWood County HospitalSplitGigs Work Phone: [phone] (RBC) [Entitic vol]86.9 fL82.6 - 102.9 fLWood County HospitalSplitGigs Work Phone: Monocytes/100 WBC (Bld)8 %3 - 12 %[place] Work Phone: NRBC Automated0.00.0 per 100 WBCWood County HospitalSplitGigs Work Phone: Platelet distribution width (Bld) [Ratio]12.9 %11.8 - 14.4 %[facility] Phone: Platelet EstimateNOT REPORTEDWood County HospitalSplitGigs Work Phone: Platelet mean volume (Bld) [Entitic vol]10.4 fL8.1 - 13.5 fLWood County HospitalSplitGigs Work Phone: [phone] (Bld) [#/Vol]290 10*3/uLHaw[place] Work Phone: RBC (Bld) [#/Vol]4.20 10*6/uL3.95 - 5.11 m/uLWood County HospitalSplitGigs Work Phone: [phone] (Bld) [#/Vol]NOT REPORTEDWood County HospitalSplitGigs Work Phone: [phone] neutrophils/100 WBC (Bld)66 %High36 - 65 % [facility]Out[facility] Referrals Work Phone: Segs Absolute5.96[facility] Work Phone: [phone] (Bld) [#/Vol]9.0 10*3/uLHaw[place] Work Phone: [phone] (Bld) [#/Vol]NOT REPORTEDWood County HospitalSplitGigs Work Phone: [phone] HospitalSplit[facility] Work Phone: comprehensive Metabolic Panel w/ Reflex to MGOrdered By: Charles Pearce on [id number] [Mass/Vol]4.3 g/dL3.5 - 5.2 g/dLWood County HospitalSplitGigs Work Phone: Xlbumin/Globulin [Mass ratio]1.5 {ratio}[facility] NorthContext [facility] [facility] Phone: ELP (Bld) [Catalytic activity/Vol]84 U/L35 - 104 U/L [facility]Out[facility] Referrals Work Phone: PLT [Catalytic activity/Vol]13 U/L5 - 33 U/LMkettering health main campusOutcome Referrals Work Phone: Jnion gap [Moles/Vol]11 mmol/L9 - 17 mmol/LMThucyy [place] Work Phone: PST [Catalytic activity/Vol]15 U/L<32[employer] Work Phone: bilirubin [Mass/Vol]0.16 mg/dLLow0.3 - 1.2 mg/dLWood County HospitalSplitGigs Work Phone: calcium [Mass/Vol]9.2 mg/dL8.6 - 10.4 mg/dLWood County HospitalVoxel.pl Phone: Dhloride [Moles/Vol]105 mmol/L98 - 107 mmol/LMThucyy [place] Work Phone: JO2 [Moles/Vol]20 mmol/L20 - 31 mmol/LMercy [place] Work Phone: creatinine [Mass/Vol]0.88 mg/dL0.50 - 0.90 mg/dLWood County HospitalVoxel.pl Phone: Free PSA/Total PSA [Mass fraction]7.1 g/dL6.4 - 8.3 g/dLWood County HospitalVoxel.pl Phone: GFR >60>60 mL/minWood County HospitalSplitGigs Work Phone: GFR Non->60>60 mL/minWood County HospitalVoxel.pl Phone: Glucose [Mass/Vol]89 mg/dL70 - 99 mg/dLWood County HospitalVoxel.pl Phone: Interpretation and review of laboratory results AbnormalWood County HospitalVoxel.pl Phone: potassium [Moles/Vol]4.3 mmol/L3.7 - 5.3 mmol/LMkettering health main campusy [employer] Phone: sodium [Moles/Vol]136 mmol/L135 - 144 mmol/LMercy [employer] Phone: Urea nitrogen (BldV) [Mass/Vol]19 mg/dL6 - 20 mg/dL [facility] NorthContext [facility] [facility] Phone: Urea nitrogen/Creatinine (Bld) [Mass ratio]22HighWood County HospitalVoxel.pl Phone: [facility] Phone: HCB Qualitative, SerumOrdered By: Charles Pearce on [id number] QualNegativeNEGATIVEWood County HospitalVoxel.pl Phone: comment on above:Specimens with hCG levels near the threshold of the test (25 mIU/mL) may give a negative or indeterminate result. In such cases, another test should be performed with a new specimen in 48-72 hours. If early is suspected clinically in this setting, correlation with quantitative serum b-hCG level is suggested. [employer] has confirmed the use of plasma for this test. This has not been cleared or approved by the U.S. Food and Drug Administration. The FDA has determined that such clearance is not necessary. [facility] Phone: laboratory - Chemistry and Chemistry - challenge Ordered By: Charles Pearce on 23-55-5987EQG/1.73 sq M.predicted MDRD (S/P/Bld) [Vol rate/Area][facility] Phone: comment on above:Average GFR for 30-39 years old: 107 mL/min/1.73sq m Chronic Kidney Disease: <60 mL/min/1.73sq m Kidney failure: <15 mL/min/1.73sq m eGFR calculated using average adult body mass. Additional eGFR calculator available at: http://www.[employer].Braclet/multiple_crcl_2012.htm Stage 1: Some kidney damage normal GFR Stage 2: Mild kidney damage GFR 60-89 Stage 3: Moderate kidney damage GFR 30-59 Stage 4: Severe kidney damage GFR 15-29 Stage 5: Severe kidney damage GFR <15 ESRD - chronic treatment by dialysis or transplant Urinalysis with microscopicOrdered By: Chaz Mercado on 02-18-2021-[facility] Work Phone: amorphous, UA1+AbnormalNoneMer[facility] Health Work Phone: bacteria, UA1+AbnormalNoneMer[facility] Work Phone: bilirubin UrineNegativeNEGATIVEMercy Health Work Phone: casts UANOT REPORTED/LPFMercy Health Work Phone: color, UAYELLOWYELLOWMercy Health Work Phone: crystals, UANOT REPORTEDNone /HPFMercy Health Work Phone: epithelial Cells UA2 TO 5[facility] Work Phone: Glucose, UrNegativeNEGATIVEMercy Health Work Phone: Interpretation and review of laboratory results AbnormalMercy Health Work Phone: Ketones Ql (U)NegativeNEGATIVEMercy Health Work Phone: leukocyte esterase Test strip Ql (U)NegativeNEGATIVE [facility] Work Phone: Mucus, UANOT REPORTEDNoneMercy Health Work Phone: Nitrite, UrineNegativeNEGATIVEMercy Health Work Phone: Other Observations UANOT REPORTEDNOT REQ.[facility] Work Phone: pH, UA6.0[facility] Work Phone: protein,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 [place], KYBuprenorphine UrineNegativeNEGATIVEMercy Health- [place], KYCannabinoid Scrn, UrNegativeNEGATIVE [facility]- [place], KYCocaine Metabolite, UrineNegativeNEGATIVEMercy Health- [place], KYMDMA, UrineNOT REPORTEDNEGATIVEMercy Health- [place], KYMethadone Screen, Urine NegativeNEGATIVEMercy Health- [place], KYMethamphetamine, UrineNegativeNEGATIVEMercy Health- [place], KYOpiates, UrineNegativeNEGATIVEMercy Health- [place], KYOxycodone Screen, UrNegativeNEGATIVEMercy Health- [place], KYPhencyclidine, UrineNegative NEGATIVEMercy Health- [place], KYPropoxyphene, UrineNegativeNEGATIVEMercy Health- [place], KYTest InformationNOT REPORTEDMercy Health- [place], KYTricyclic Antidepressants, UrineNegativeNEGATIVEMercy Health- [place], KYComment on above:Drug screen results are to be used for medical purposes only. All positive results are unconfirmed. Testing for employment or legal uses should be sent to a reference laboratory for confirmation. HCG Qualitative, Serumon [id number] QualNegativeNEGATIVEMercy Health- [place], [place] Comment on above:Specimens with hCG levels near the threshold of the test (25 mIU/mL) may give a negative or indeterminate result. In such cases, another test should be performed with a new specimen in 48-72 hours. If early is suspected clinically in this setting, correlation with quantitative serum b-hCG level is suggested. [employer] has confirmed the use of plasma for this test. This has not been cleared or approved by the U.S. Food and Drug Administration. The FDA has determined that such clearance is not necessary. Magnesiumon 12-90-6141Jnhidmbqw [Mass/Vol]2.1 mg/dL1.6 - 2.6 mg/dLPromedica Toledo Hospital- [place], KYMetabolic Panelon [id number]/1.73 sq M predicted among non-blacks MDRD (S/P/Bld) [Vol rate/Area][facility], KYComment on above:Average GFR for 30-39 years old: 107 mL/min/1.73sq m Chronic Kidney Disease: <60 mL/min/1.73sq m Kidney failure: <15 mL/min/1.73sq m eGFR calculated using average adult body mass. Additional eGFR calculator available at: http://www.[employer]/multiple_crcl_2012.htm Stage 1: Some kidney damage normal GFR Stage 2: Mild kidney damage GFR 60-89 Stage 3: Moderate kidney damage GFR 30-59 Stage 4: Severe kidney damage GFR 15-29 Stage 5: Severe kidney damage GFR <15 ESRD - chronic treatment by dialysis or transplant Microscopic Urinalysison [id number], UA1+AbnormalNoneMey Health- [place], KYBacteria, UANOT REPORTEDNoneMey Health- [place], KYCasts UANOT REPORTED/LPFMercy Health- [place], KYCrystals UANOT REPORTEDNone /HPFMercy Health- [place], KYEpithelial Cells UA5 TO 10[facility]- [place], KYInterpretation and review of laboratory resultsAbnormalMemorial Health System [facility]- [place], KYMucus, UANOT REPORTEDNoneMey Health- [place], [place] Other Observations UANOT REPORTEDNOT REQ.[facility], KYRBC (U) [#/Vol]0 TO 2[facility]- [place], KYRenal Epithelial, UrineNOT REPORTED0 /HPFMercy Health- [place], KYTrichomonas, UANOT REPORTEDNoneMercy Health- [place], KYWBC, UA2 TO 5[facility]- [place], KYYeast, UANOT REPORTEDNoneMercy Health- [place], [place]-[facility]- [place], KYOtheron [id number] CT: No acute intracranial abnormality. Lumbar spine CT: No acute osseous abnormality.[facility], KYEXAMINATION: CT OF THE HEAD WITHOUT CONTRAST; CT [...] and/or weight based adjustment of the mA/kV wasutilized to reduce the radiation dose to as low as reasonably achievable. COMPARISON: None. HISTORY: ORDERING SYSTEM PROVIDED HISTORY: dizziness TECHNOLOGIST PROVIDED HISTORY: Low back pain. dizziness Is the patient ?->No FINDINGS: Head CT: BRAIN/VENTRICLES: There is no acute intracranial hemorrhage, mass effect or midline shift. No abnormal extra-axial fluid collection. The bhatt-whitedifferentiation is maintained without evidence of an acute [...] the sacrum. No perispinal soft tissue masses orabnormal fluid collections. No nephrolithiasis or hydronephrosis.[facility], [place], hawk Incoming Radiant Results From Fillm/[employer] - 07/30/2019 11:05 AM EST EXAMINATION: CT [...] Lumbar spine CT: No acute osseous abnormality. [facility] NorthOutcome ReferralsCOOPER COUNTY MEMOR[facility], NHTS without Reflexon [id number] Qn1.43 m[IU]/Fort Hamilton HospitalMarketecture [facility], NHTroponinon [id number] I.cardiac [Mass/Vol][facility] HospitalStreem [place], NHComment on above:Reference Range: <0.03 Within reference range. 0.03-0.09 Possible myocardial damage. Repeat at appropriate intervals to rule out chronic elevation. >= 0.10 Indicative of myocardial damage. Patients with high levels of Biotin oral intake (i.e >5mg/day) may have falsely decreased Troponin T levels. Samples collected within 8 hours of biotin intake may require additional information for diagnosis. Troponin T.cardiac [Mass/Vol]ug/L<0.03 ng/mLSouthview Medical Center, NHComment on above:Troponin T results cannot be compared to Troponin-I results.Troponin, High SensitivityNOT REPORTED0 - 14 ng/[facility] HospitalMarketecture [facility], NHUrinalysis Reflex to Cultureon [id number] UrineNegativeNEGATIVESouthview Medical Center, KYColor, UA YELLOWYELLOWSouthview Medical Center, KYGlucose, UrNegativeNEGATIVEWood County HospitalClickShift [facility], [place] Interpretation and review of laboratory resultsAbnormalSouthview Medical Center, [place] Ketones Ql (U)NegativeNEGATIVESouthview Medical Center, NHLeukocyte esterase Test strip Ql (U)NegativeNEGATIVEMercy [facility]len[facility] HospitalStreem [place], KYNitrite, UrineNegativeNEGATIVEMercy Health- [place], KYpH, UA7.5[facility]- [place], KYProtein (U) [Mass/Vol]Negative NEGATIVEMercy Health- [place], KYSpecific Sarver, UA1.015[facility]- [place], [place] Turbidity UACLEARCLEARMercy Health- [place], KYUrinalysis CommentsNOT REPORTEDMercy Health- [place], KYUrine HgbTRACEAbnormalNEGATIVEMercy Health- [place], KYUrobilinogen, UrineNormalNormalMercy Health- [place], [place] Vital Signs Date TimeVital SignValuePerforming WgqkusgeyErsyucsf83-13-9055 16:48-0400Heart rate80 /minJodi Toño JAVA SCALA DEVELOPER - RELOCATION COUNSELOR Work Phone: [facility] [employer]10-24-2025 16:48-0400 Respiratory rate18 /minJodi Toño JAVA SCALA DEVELOPER - RELOCATION COUNSELOR Work Phone: [facility] HospitalLifeStreet Media10-24-2025 16:48-8570LzH6% (BldA) [Mass fraction]98 %Lidia Toño JAVA SCALA DEVELOPER - RELOCATION COUNSELOR Work Phone: [facility] HospitalLifeStreet Media10-24-2025 15:57-0400Body mass index (BMI) [Ratio]31.76 kg/m2Jodi Toño JAVA SCALA DEVELOPER - RELOCATION COUNSELOR Work Phone: [facility] [employer]10-24-2025 15:57-0400Body kbchvtcoxdr44.9 [degF]Lidia Toño JAVA SCALA DEVELOPER - RELOCATION COUNSELOR Work Phone: [facility] HospitalLifeStreet Media10-24-2025 15:57-0400Body wiqiuy85.92 kgJodi Toño JAVA SCALA DEVELOPER - RELOCATION COUNSELOR Work Phone: [facility] [employer]10-24-2025 15:57-0400Diastolic blood mm[Hg]Lidia Toño JAVA SCALA DEVELOPER - RELOCATION COUNSELOR Work Phone: [facility] [employer]10-24-2025 15:57-0400Systolic blood dnsgsoid741 mm[Hg]Lidia Toño JAVA SCALA DEVELOPER - RELOCATION COUNSELOR Work Phone: [facility]10-14-2025 17:23-0400 Respiratory rate16 /minJodi Toño JAVA SCALA DEVELOPER - RELOCATION COUNSELOR Work Phone: [facility]10-14-2025 17:21-0400Diastolic blood mwboprxd04 mm[Hg]Lidia Toño JAVA SCALA DEVELOPER - RELOCATION COUNSELOR Work Phone: [facility]10-14-2025 17:21-2985ZcR7% (BldA) [Mass fraction]97 %Lidia Toño JAVA SCALA DEVELOPER - RELOCATION COUNSELOR Work Phone: [facility]10-14-2025 17:21-0400Systolic blood mm[Hg]Lidia Toño JAVA SCALA DEVELOPER - RELOCATION COUNSELOR Work Phone: [facility]10-14-2025 15:01-0400Body vffiqbbvzzh27.71 [degF]Lidia Toño JAVA SCALA DEVELOPER - RELOCATION COUNSELOR Work Phone: [facility]10-14-2025 15:01-0400Heart rate97 /minJodi Toño JAVA SCALA DEVELOPER - RELOCATION COUNSELOR Work Phone: [facility]07-28-2025 15:19-0400Body mass index (BMI) [Ratio]33.6 kg/y0DwimqgnMynor Edmondine PA-C Work Phone: [facility]07-28-2025 15:19-0400Body ltrgpu41.8 kgMynor Maline PA-C Work Phone: [facility]07-28-2025 15:19-0400Diastolic blood naswzmox27 mm[Hg]Mynor Maline PA-C Work Phone: [facility]07-28-2025 15:19-0400Heart rate96 /min Mynor Maline PA-C Work Phone: [facility]07-28-2025 15:19-0400Systolic blood yzinxovg187 mm[Hg]Mynor Maline PA-C Work Phone: [facility]06-25-2025 10:34-0400Body xtihuf855.6 Kristy Haas MD Work Phone: [phone]06-25-2025 10:34-0400Body mass index (BMI) [Ratio]30.88 kg/m3VaihluaJohnathan Haas MD Work Phone: [phone]06-25-2025 10:34-0400Body nkbxfe02.6 kgJohnathan Haas MD Work Phone: [phone]06-25-2025 10:34-0400Diastolic blood qymogimg47 mm[Hg]Johnathan Haas MD Work Phone: [phone]06-25-2025 10:34-0400Heart rate91 /min Johnathan Haas MD Work Phone: [phone]06-25-2025 10:34-0400Respiratory rate 16 /minJohnathan Haas MD Work Phone: [phone]06-25-2025 10:34-0368TuK9% (BldA) [Mass fraction]98 %Johnathan Haas MD Work Phone: [phone]06-25-2025 10:34-0400Systolic blood cizihdcg676 mm[Hg]Johnathan Haas MD Work Phone: [phone]06-09-2025 07:34-0400Body hhsemg109.6 cmPacc 1 Other Phone: [phone]06-09-2025 07:34-0400Body mass index (BMI) [Ratio]32.01 kg/m2Pacc 1 Other Phone: [phone]06-09-2025 07:34-0400Body temperature 97.3 [degF]Pacc 1 Other Phone: [phone] [address]-09-2025 07:34-0400Body gpsnug76.6 kgPacc 1 Other Phone: [phone]06-09-2025 07:34-0400Diastolic blood kooqkrof54 mm[Hg]Pacc 1 Other Phone: [facility]06-09-2025 07:34-0400Heart rate68 /minPacc 1 Other Phone: [phone]06-09-2025 07:34-0400Respiratory rate 18 /minPacc 1 Other Phone: [phone]06-09-2025 07:34-3480NiM7% (BldA) [Mass fraction]99 %Pacc 1 Other Phone: [phone]06-09-2025 07:34-0400Systolic blood ziwqlmri46 mm[Hg]Pacc 1 Other Phone: [facility]05-21-2025 16:12-0400Body mass index (BMI) [Ratio]32.61 kg/e5Vusxh Siobhan DO Work Phone: [facility] CenterNdcxenkczc60-17-8925 16:12-0400Body qdqoma18.18 kgCoremontse Justino [employer] Work Phone: [facility] CenterXhgtkcvnnw35-43-4044 16:12-0400Diastolic blood zogdykof45 mm[Hg]Tommie Siobhan [employer] Work Phone: [facility] CenterEjdfkekrbe34-10-1661 16:12-0400Systolic blood csjolahl280 mm[Hg]Tommie Siobhan [employer] Work Phone: [facility] CenterBnuisrllyk75-19-4195 15:08-0400Body .4 kg Uriel Guzmán MD Work Phone: [facility]04-28-2025 14:02-0400Body .65 kgRishabh Huang MD Work Phone: [facility] HospitalTttgvz97-13-0598 14:02-0400Diastolic blood vecogfip93 mm[Hg]Rishabh Huang MD Work Phone: c[facility] HospitalLirjup88-71-3329 14:02-0400Heart rate72 /min Rishabh Huang MD Work Phone: [facility] HospitalPfzqkr72-57-6654 14:02-0400Systolic blood wexwcktu703 mm[Hg]Rishabh Huang MD Work Phone: c[facility] HospitalUdzgdi48-00-7485 12:45-0400Diastolic blood mm[Hg]Doc Felix MD Work Phone: [facility]04-11-2025 12:45-0400Heart rate65 /minDoc Felix MD Work Phone: [facility]04-11-2025 12:45-0400 Respiratory rate16 /minDoc Felix MD Work Phone: [facility]04-11-2025 12:45-0400Systolic blood ytslemrg40 mm[Hg]Doc Felix MD Work Phone: [facility]04-11-2025 12:09-3250SfF4% (BldA) [Mass fraction]100 %Doc Felix MD Work Phone: [facility]04-11-2025 11:08-0400Body gxvurt074.6 Agustina Felix MD Work Phone: [facility]04-11-2025 11:08-0400Body mass index (BMI) [Ratio]30.9 kg/m2Doc Felix MD Work Phone: [facility]04-11-2025 11:08-0400Body zvldtu66.65 kgDoc Felix MD Work Phone: [facility]04-07-2025 14:58-0400Body wdejzu76 kgJohnathan Haas MD Work Phone: [facility]04-07-2025 14:58-0400Diastolic blood ollowpnc42 mm[Hg]Johnathan Haas MD Work Phone: [facility]04-07-2025 14:58-0400Heart rate73 /min Johnathan Haas MD Work Phone: [facility]04-07-2025 14:58-0400Systolic blood vhmbsyzs278 mm[Hg]Johnathan Haas MD Work Phone: [facility]03-26-2025 15:13-0400Heart rate88 /min Catherine Calvillo MD Work Phone: [phone]03-26-2025 15:13-1079NsA1% (BldA) [Mass fraction]97 %Catherine Calvillo MD Work Phone: [phone] [facility]03-26-2025 15:00-0400Diastolic blood ppwosyqo30 mm[Hg]Catherine Calvillo MD Work Phone: [phone] [facility]03-26-2025 15:00-0400Systolic blood ydoaraav677 mm[Hg]Catherine Calvillo MD Work Phone: [phone] [facility]03-26-2025 12:00-0400Body zstyqh279.6 cmCatherine Calvillo MD Work Phone: A [facility]03-26-2025 12:00-0400Body hwzergwjytu53.49 [degF]Catherine Calvillo MD Work Phone: [phone] [facility]03-26-2025 11:29-0400Body mass index (BMI) [Ratio]29.18 kg/r1EynitbmCatherine Calvillo MD Work Phone: [phone] [facility]03-26-2025 11:29-0400Body owoccs01.11 kgCatherine Calvillo MD Work Phone: [phone] [facility]03-26-2025 11:29-0400 Respiratory rate18 /minCatherine Calvillo MD Work Phone: [phone] [facility]03-07-2025 13:37-0500Body .6 cmChristofer Moer MD Work Phone: [facility]03-07-2025 13:37-0500Body mass index (BMI) [Ratio]29.18 kg/u8NhiutChristofer More MD Work Phone: [place] e[address] [facility] HospitalAfhugl02-71-8991 13:37-0500Body oyijsrenxsk34.59 [degF]Christofer More MD Work Phone: [facility]MS[facility] HospitalNnaadz59-75-0926 13:37-0500Body xebwxb51.11 kgChristofer More MD Work Phone: [facility] CenterMS[facility] HospitalEhontf73-68-3403 13:37-0500Diastolic blood xdwhcodc01 mm[Hg]Christofer More MD Work Phone: [place] [address] [facility] HospitalWifwzw26-09-2506 13:37-0500Heart rate72 /Johan More MD Work Phone: [place] [address] [facility] HospitalEnbbbl81-05-6593 13:37-0500 Respiratory rate18 /Johan More MD Work Phone: [facility] CenterMS[facility] HospitalDdawer85-12-0332 13:37-9969CbY0% (BldA) [Mass fraction]97 %Christofer More MD Work Phone: [place] [address] [facility] HospitalNaymgz19-59-3441 13:37-0500Systolic blood whkltvwy700 mm[Hg]Christofer More MD Work Phone: [place] [address] [facility] HospitalOecnpd96-58-8379 18:30-0500Diastolic blood dezdmtbi02 mm[Hg]Doc Felix MD Work Phone: [facility] CenterMS[facility] HospitalFfkmws72-61-6923 18:30-0500Heart rate75 /minDoc Felix MD Work Phone: [facility] CenterMS[facility] HospitalKvszft56-15-1994 18:30-5374TxZ8% (BldA) [Mass fraction]99 %Doc Felix MD Work Phone: [place] [address] [facility] HospitalFjzqbd52-98-2664 18:30-0500Systolic blood ymgnsohg047 mm[Hg]Doc Felix MD Work Phone: [facility]02-05-2025 17:30-0500 Respiratory rate16 /minDoc Felix MD Work Phone: [facility]02-05-2025 15:48-0500Body mass index (BMI) [Ratio]29.18 kg/m2Doc Felix MD Work Phone: [facility]02-05-2025 15:48-0500Body fieqvsrspsz32.01 [degF]Doc Felix MD Work Phone: [facility]02-05-2025 15:48-0500Body .11 kgDoc Feilx MD Work Phone: [facility]01-23-2025 09:46-0500Body lpeuad713.6 cmKelly Thomas MD Work Phone: 1(190)[facility]01-23-2025 09:46-0500Body mass index (BMI) [Ratio]28.82 kg/l9Bordigsdaniel Thomas MD Work Phone: 1(572)[facility]01-23-2025 09:46-0500Body ibdtjwjnvjw59.01 [degF]Kelly Thomas MD Work Phone: 1(777)[facility]01-23-2025 09:46-0500Body mioldb58.2 kgKelly Thomas MD Work Phone: 1(715)[facility]01-23-2025 09:46-0500Diastolic blood zhgymwfn00 mm[Hg]Kelly Thomas MD Work Phone: 1(427)[facility]01-23-2025 09:46-0500Heart rate 78 /minKelly Thomas MD Work Phone: 1(292)[facility]01-23-2025 09:46-0500 Respiratory rate16 /minKelly Thomas MD Work Phone: 1(945)[facility]01-23-2025 09:46-0500Systolic blood pvsqacif049 mm[Hg]Kelly Thomas MD Work Phone: [facility]2025 08:50-0500Body lwbyqd825.6 cmPriya Shendge V, PA Work Phone: 1(051)9-[address] [place], [place] 0408501-08-2025 08:50-0500Body mass index (BMI) [Ratio]28.84 kg/j4Pnzjq Shendge V, PA Work Phone: 1(913)[address] [place], [place] 4524201-08-2025 08:50-0500Body ogejnx60.2 kgPriya Shendge V, PA Work Phone: 1(079)[address] [place], [place] 4524201-08-2025 08:50-0500Diastolic blood nollasjr06 mm[Hg]Myra Shendge V, PA Work Phone: 1(462)[address] [place], [place] 4524201-08-2025 08:50-0500Heart rate 73 /minPriya Shendge V, PA Work Phone: 1(735)[address] [place], [place] 4524201-08-2025 08:50-0500 Respiratory rate16 /minPriya Shendge V, PA Work Phone: 1(142)[facility] [place], [place] 0408501-08-2025 08:50-0500Systolic blood uvpfdpag568 mm[Hg]Myra Shendge V, PA Work Phone: 1(180)[address] [place], [place] 4524211-27-2024 14:37-0500Body .6 Alexandra Nath MD MPH Work Phone: 1(540)[address] [place], [place] 4524211-27-2024 14:37-0500Body mass index (BMI) [Ratio]29.18 kg/o6EkcjrShirin Nath MD MPH Work Phone: 1(750)1-[address] [place], [place] 0408511-27-2024 14:37-0500Body .11 kgShirin Nath MD MPH Work Phone: 1(282)1-[address] [place], [place] 0408511-27-2024 14:37-0500Diastolic blood ohzxiuxd95 mm[Hg]Amala Ambati MD MPH Work Phone: 1(052)344-[address] [place], [place] 0408511-27-2024 14:37-0500 Respiratory rate16 /Richie Nath MD MPH Work Phone: 1(933)7-[address] [place], [place] 0408511-27-2024 14:37-0500Systolic blood fqmiroud360 mm[Hg]Shirin Nath MD MPH Work Phone: 1(491)[address]09-04-2024 15:13-0400Body dpblii044.6 Alexandra Nath MD MPH Work Phone: 1(545)[address]09-04-2024 15:13-0400Body mass index (BMI) [Ratio]29.01 kg/h8QjiftShirin Nath MD MPH Work Phone: 1(857)[address]09-04-2024 15:13-0400Body kprgwe27.66 kgShirin Nath MD MPH Work Phone: 1(151)[address]09-04-2024 15:13-0400Diastolic blood mm[Hg]Shirin Nath MD MPH Work Phone: 1(642)[address]09-04-2024 15:13-0400 Respiratory rate16 /Richie Nath MD MPH Work Phone: 1(557)[address]09-04-2024 15:13-0400Systolic blood herwlkfo075 mm[Hg]Shirin Nath MD MPH Work Phone: 1(101)971-[address] [place], [place] 0408506-27-2024 14:01-0400Body yrggfh293.6 cmJarred Carter MD Work Phone: [facility]06-27-2024 14:01-0400Body mass index (BMI) [Ratio]29.18 kg/m2Jarred Carter MD Work Phone: [facility]06-27-2024 14:01-0400Body fqepndpsqsw58.1 [degF]Jarred Carter MD Work Phone: [facility]06-27-2024 14:01-0400Body .11 kgJarred Carter MD Work Phone: 1([phone]05-01-2024 11:21-0400Body qafnbo653.6 cmJarred Carter MD Work Phone: 1(840)025-[address] [place], [place] 6040405-01-2024 11:21-0400Body mass index (BMI) [Ratio]29.18 kg/m2Jarred Carter MD Work Phone: 1(595)333-[address] [place], [place] 6040405-01-2024 11:21-0400Body .3 [degF]Jarred Carter MD Work Phone: 1(767)293-31[facility]05-01-2024 11:21-0400Body lbpzeg84.11 Casi Carter MD Work Phone: 1(009)195-[address] [place], [place] 6040405-01-2024 11:21-0400 Respiratory rate16 /Lencho Carter MD Work Phone: 1(366)192-[address] [place], [place] 6040404-02-2024 13:03-0400Body .6 Krista Carter MD Work Phone: 1(545)242-[address] [place], [place] 6040404-02-2024 13:03-0400Body mass index (BMI) [Ratio]30 kg/m2Jarred Carter MD Work Phone: 1(351)124-[address] [place], [place] 6040404-02-2024 13:03-0400Body wtpdxbfnfpa44.1 [degF]Jarred Carter MD Work Phone: 1(779)676-[address] [place], [place] 6040404-02-2024 13:03-0400Body ujwfyt69.29 kgJarred Carter MD Work Phone: 1(172)052-[address] [place], [place] 6040404-02-2024 13:03-0400 Respiratory rate18 /Lencho Carter MD Work Phone: 1(507)182-[address] [place], [place] 6040404-02-2024 05:32-0400Body mwzoxmexnec61.3 [degF]Rishabh Ross MD Work Phone: [facility]04-02-2024 05:32-0400Diastolic blood mm[Hg]Rishabh Ross MD Work Phone: [facility]ENTERTranslationExchange04-02-2024 05:32-0400Heart rate92 /Boaz Ross MD Work Phone: [facility]ENTERTranslation[facility]04-02-2024 05:32-0400 Respiratory rate17 /Boaz Ross MD Work Phone: [facility]04-02-2024 05:32-3900XoF9% (BldA) [Mass fraction]100 %Rishabh Ross MD Work Phone: [facility]04-02-2024 05:32-0400Systolic blood pfmoaimn965 mm[Hg]Rishabh Ross MD Work Phone: [facility] SOUTHNualightNIYWDC10-31-5464 13:06-0500Body eqpvdpbaqsq928.2 [degF]Avelino Swade DO Work Phone: [facility]01-19-2024 13:06-0500Diastolic blood eeqkoevg70 mm[Hg]Avelino Swade DO Work Phone: [facility]01-19-2024 13:06-0500Heart rate94 /minStephen Swade DO Work Phone: [facility]01-19-2024 13:06-0500 Respiratory rate20 /minStephen Swade DO Work Phone: [facility]01-19-2024 13:06-2509ClM8% (BldA) [Mass fraction]97 %Avelino Swade DO Work Phone: [facility]01-19-2024 13:06-0500Systolic blood ebyxaqsr995 mm[Hg]Avelino Swade DO Work Phone: [facility] XYNWKT41-98-1326 10:51-0500Body ccnsbe624.6 cmStephen Micha DO Work Phone: [facility] ENIFCT19-81-8970 10:51-0500Body mass index (BMI) [Ratio]33.47 kg/i2Fuvidzo Anthonyade DO Work Phone: [facility] TZPELV74-15-6820 10:51-0500Body atjybb12.45 kgStephen Micha DO Work Phone: [facility] QGGVAR50-03-7360 09:16-0500Body .6 cmDamercedez Gan Jr., DO Work Phone: 1(944)[address] [place], [place] 6365401-02-2024 09:16-0500Body mass index (BMI) [Ratio]33.13 kg/r2LtrhgHaley Gan Jr., DO Work Phone: 1(256)[address] [place], [place] 6365401-02-2024 09:16-0500Body ryemcrcojgh13 [degF]Haley Gan Jr., DO Work Phone: 1(817)[address] [place], [place] 6365401-02-2024 09:16-0500Body weight 87.54 kgHaley Gan Jr., DO Work Phone: 1(067)[address] [place], [place] 6365401-02-2024 09:16-0500Diastolic blood shecuulh07 mm[Hg]Haley Gan Jr., DO Work Phone: 1(390)[address] [place], [place] 6365401-02-2024 09:16-0500Heart rate88 /minDavidiana Gan Jr., DO Work Phone: 1(849)[address] [place], [place] 6365401-02-2024 09:16-5774RcC2% (BldA) [Mass fraction]98 %Haley Gan Jr., DO Work Phone: 1(614)[address] [place], [place] 6365401-02-2024 09:16-0500Systolic blood lmpzzytl587 mm[Hg]Haley Gan Jr., DO Work Phone: [facility]12-23-2023 21:13-0500Diastolic blood nwaabwgp72 mm[Hg]Octavio Andes DO Work Phone: [phone] CENTERCuriosityville [facility] S[facility]THApplitools IJBXKH93-27-6643 21:13-0500Heart rate71 /minJustin Andes DO Work Phone: [facility]ENTERCuriosity[place] [facility] HOSPITALHAHBLM96-20-4429 21:13-0500 Respiratory rate12 /minJustin Andes DO Work Phone: [phone]ITALCuriosity[facility] HOSPITALMOBKEY48-27-1343 21:13-3846SrP7% (BldA) [Mass fraction]95 %Octavio Andes DO Work Phone: [facility]ITALCur[facility] [facility] HOSPITALQHCLDU91-96-3418 21:13-0500Systolic blood rvitzims500 mm[Hg]Octavio Andes DO Work Phone: [facility]ITALCur[facility] [facility] HOSPITALJWMHNF19-29-6537 19:40-0500Body oizvpk232.6 cmJustin Andes DO Work Phone: [facility]OSPITALWowsai EZLRXA27-34-0426 19:40-0500Body mass index (BMI) [Ratio]32.61 kg/v5Mmfwok Andes DO Work Phone: [phone] CENTERCuriosity[place] [facility] S[facility]THApplitools BEQRZO04-46-9500 19:40-0500Body kvnhyhylsup13 [degF]Octavio Andes DO Work Phone: [facility]ITALCuriosity[place] [facility] HOSPITALJBTKFQ81-72-0126 19:40-0500Body vnijtm99.18 kgJustin Andes DO Work Phone: [phone]PITALCuriosity[place] [facility]THApplitools DKRVNZ83-35-6365 08:45-0500Body uwtlvamdtgx60.9 [degF]Patricio Aldridge MD Work Phone: [facility]ITALCuriosity[place] [facility]THApplitools PHMXJO84-37-7731 08:45-0500Diastolic blood kbclojfv53 mm[Hg]Patricio Aldridge MD Work Phone: [facility]ITALCuriosity[place] [facility]THApplitools SPYQAF77-64-2249 08:45-0500Heart rate63 /Naa Aldridge MD Work Phone: [facility]12-16-2023 08:45-0500 Respiratory rate18 /Naa Aldridge MD Work Phone: [facility]12-16-2023 08:45-5070PaI5% (BldA) [Mass fraction]99 %Patricio Aldridge MD Work Phone: [facility]12-16-2023 08:45-0500Systolic blood akcikrst096 mm[Hg]Patricio Aldridge MD Work Phone: [facility]12-15-2023 14:45-0500Body mass index (BMI) [Ratio]32.88 kg/m2Patricio Aldridge MD Work Phone: [facility]12-15-2023 14:45-0500Body jmaovn83.9 kgPatricio Aldridge MD Work Phone: [facility]12-15-2023 06:50-0500Body xyoljf238.6 cmAnnicola Aldridge MD Work Phone: [facility]09-25-2023 14:41-0400Diastolic blood lhguukfo28 mm[Hg]Malaika Lan [facility]09-25-2023 14:41-0400Mean blood pkqwozvv02 mm[Hg]Malaika Lan [facility]09-25-2023 14:41-0400 Systolic blood rothwllc028 mm[Hg]Malaika Lan [facility]09-25-2023 14:30-0400Blood Pressure LocationRyveronica Lan [facility]09-25-2023 14:30-0400 Diastolic blood bphogcds96 mm[Hg]Malaika Lan [facility]09-25-2023 14:30-0400Heart rate82 /Jeanmarie Lan [facility]09-25-2023 14:30-1819AhL9% (BldA) [Mass fraction]99 %Malaika Lan [facility]09-25-2023 14:30-0400 Systolic blood djmgetse840 mm[Hg]Malaika Lan [facility]04-08-2023 17:22-0400Body mass index (BMI) [Ratio]33.47 kg/e2KbkumfyCatherine Calvillo MD Work Phone: [facility]04-08-2023 17:22-0400Body htmoszgrrpu51.5 [degF]Catherine Calvillo MD Work Phone: [facility]04-08-2023 17:22-0400Body rypnqz14.45 kgCatherine Calvillo MD Work Phone: [phone]04-08-2023 17:22-0400Diastolic blood mm[Hg]Catherine Calvillo MD Work Phone: [phone]04-08-2023 17:22-0400Heart rate61 /Hunter Calvillo MD Work Phone: [phone]04-08-2023 17:22-0400 Respiratory rate16 /minCatherine Calvillo MD Work Phone: [phone]04-08-2023 17:22-8624DeO0% (BldA) [Mass fraction]99 %Catherine Calvillo MD Work Phone: [phone]04-08-2023 17:22-0400Systolic blood rvtiihlg825 mm[Hg]Catherine Calvillo MD Work Phone: 1([phone]02-27-2023 16:42-0500Body supociuqtwa03.8 [degF]Tiffany Julian CNP Work Phone: [facility]02-27-2023 16:42-0500Diastolic blood mfvzoraj93 mm[Hg]Tiffany Might [employer] DEVELOPER - 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 Work Phone: [facility]02-27-2023 16:42-0500Heart rate88 /minBrett Might [employer] DEVELOPER - 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 Work Phone: [facility]02-27-2023 16:42-0500 Respiratory rate16 /minBrett Might [employer] DEVELOPER - 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 Work Phone: [facility]02-27-2023 16:42-5954BcC3% (BldA) [Mass fraction]98 %Tiffany Might [employer] DEVELOPER - 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 Work Phone: [facility]02-27-2023 16:42-0500Systolic blood shwciouf153 mm[Hg]Tiffany Might [employer] DEVELOPER - 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 Work Phone: [facility]10-16-2022 15:33-0400Body rfoetqqxdmn63.5 [degF]Tiffany Might [employer] DEVELOPER - 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 Work Phone: [facility]10-16-2022 15:33-0400Diastolic blood mm[Hg]Tiffany Might [employer] DEVELOPER - 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 Work Phone: [facility]10-16-2022 15:33-0400Heart rate76 /minBrett Might J[employer] DEVELOPER - 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 Work Phone: [facility]10-16-2022 15:33-0400 Respiratory rate16 /minBrett Might [employer] DEVELOPER - 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 Work Phone: [facility]10-16-2022 15:33-2147GqV3% (BldA) [Mass fraction]98 %Tiffany Might [employer] DEVELOPER - 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 Work Phone: [facility]10-16-2022 15:33-0400Systolic blood gsgidhyt655 mm[Hg]Tiffany Might [employer] DEVELOPER - 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 Work Phone: [facility]08-02-2022 10:44-0400Body hitckw580.6 Brittny Serrano MD Work Phone: 1(263)[address] [place], [place] 7457108-02-2022 10:44-0400Body mass index (BMI) [Ratio]33.13 kg/y0YeljdqYas Serrano MD Work Phone: 1(707)[address] [place], [place] 7457108-02-2022 10:44-0400Body ozubzlrjxlr00.5 [degF]Yas Serrano MD Work Phone: 1(981)[address] [place], [place] 7457108-02-2022 10:44-0400Body weight 87.54 kgYas Serrano MD Work Phone: 1(039)[address] [place], [place] 7457108-02-2022 10:44-0400Diastolic blood aazwlquq98 mm[Hg]Yas Serrano MD Work Phone: 1(126)[address] [place], [place] 7457108-02-2022 10:44-0400Heart rate68 /minYas Serrano MD Work Phone: 1(313)[address] [place], [place] 7457108-02-2022 10:44-0400Systolic blood nczswifs179 mm[Hg]Yas Serrano MD Work Phone: 1(697)[address] [place], [place] 7457103-05-2022 18:36-0500Body qzwxkfjdton55.1 [degF]Delbert Nascimento MD [facility] Phone[facility] 18:36-0500Diastolic blood ncijbbop49 mm[Hg]Delbert Nascimento MD Work Phone: [facility]Ywmjfq22-55-3274 18:36-0500Heart rate79 /min Delbert Nascimento MD Work Phone: [place] [address]Dktgki22-07-7358 18:36-0500Respiratory rate18 /minDelbert Nascimento MD Work Phone: [facility]Efuyot56-25-5927 18:36-9860CpC8% (BldA) [Mass fraction]98 %Delbert Nascimento MD Work Phone: [facility] HospitalFstgep75-28-2142 18:36-0500Systolic blood zhskyerr509 mm[Hg]Delbert Nascimento MD Work Phone: [facility] HospitalUnkbam21-56-5103 16:09-0400Body ucxktn011.6 cm Charles Pearce Jr., MD Work Phone: [facility] [place] Work Phone: 1(817)803-361665-907472-83455189-72-1109 16:09-0400Body mass index (BMI) [Ratio]30.9 kg/y1KiuszinCharles Pearce Jr., MD Work Phone: [phone] [place] Work Phone: 1(119) 644-624106-11-2021 16:09-0400Body hgahogzwqgc39.9 [degF] Charles Pearce Jr., MD Work Phone: [phone] [place] Work Phone: 1(084)288-625625-780232-40717304-19-6589 16:09-0400Body bxhiot28.65 kgWialphonso Pearce Jr., MD Work Phone: [facility] [place] Work Phone: 1(222) 538-956806-11-2021 16:09-0400Diastolic blood mluqpskb76 mm[Hg] Charles Pearce Jr., MD Work Phone: [facility] [place] Work Phone: 1(778) 735-840306-11-2021 16:09-0400Heart rate89 /Hamilton Pearce Jr., MD Work Phone: [facility] Work Phone: 1(206) 423-773806-11-2021 16:09-0400Respiratory rate18 /Hamilton Pearce Jr., MD Work Phone: [facility] Work Phone: 1(274) 759-137806-11-2021 16:09-8908XnT4% (BldA) [Mass fraction]99 % Charles Pearce Jr., MD Work Phone: [facility] [place] Work Phone: 1(340) 135-394006-11-2021 16:09-0400Systolic blood vtpzhynk314 mm[Hg] Charles Pearce Jr., MD Work Phone: [facility] [place] Work Phone: 1(138) 393-459005-11-2021 07:45-0400Body mass index (BMI) [Ratio]30.9 kg/w2EhrjsuzmoRosario Murguia DO Work Phone: [place] [facility] Work Phone: 1(215) 443-521105-11-2021 07:45-0400Body ppaklqekaha05.1 [degF] Rosario Murguia DO Work Phone: [facility] [employer] Work Phone: 1(984) 620-907205-11-2021 07:45-0400Body uzebko23.65 kgRosario Murguia [employer] Work Phone: [facility] [employer] Work Phone: 1(856) [phone] 07:40-0400Diastolic blood egwaxewj36 mm[Hg] Rosario Murguia DO Work Phone: [facility] [employer] Work Phone: 1(392) [phone] 07:40-0400Heart rate91 /tesfayeJessejose carlos Murguia [employer] Work Phone: [facility] [employer] Work Phone: 1(197) [phone] 07:40-0400Respiratory rate16 /tesfayeJessejose carlos Murguia DO Work Phone: [facility] [employer] Work Phone: 1(135) 432-118305-11-2021 07:40-7824TxN2% (BldA) [Mass fraction]97 % Rosario Murguia DO Work Phone: [facility] [employer] Work Phone: 1(194) 567-402105-11-2021 07:40-0400Systolic blood mm[Hg] Rosario Lewisis DO Work Phone: [facility] [employer] Work Phone: 1(851) 868-756810-06-2020 16:45-0400BP Wkqyocalr98 mm[Hg][facility], UX35-66-7858 16:45-0400BP Vimtrwhz552 mm[Hg][facility], EQ17-53-1803 16:45-0400Pulse (Heart Rate)60 /minMemorial Health System, KG78-29-4197 16:45-0400Pulse Bdtkscpa115 %[facility], EH33-07-1252 16:45-0400Respiratory Rate16 /min[facility], [place] 06-15-2020 16:05-0400Body Ysjgolhtbxl72.39 [degF][facility] [place] 06-15-2020 15:13-0400BMI (Body Mass Index)29.18 kg/m2[facility], EG33-55-1024 15:13-0400Body aqifeu34.11 kgMem[facility] Health [facility], [place] 06-15-2020 15:13-3912Izkgmu236.6 cmMemorial Health System, WK82-08-2232 15:17-0400Body Trmaxifgdxj91.9 [degF][facility], FZ54-74-8287 15:17-0400BP Dhsgsyejr94 mm[Hg][facility], TG88-49-2648 15:17-0400BP Zjlkwvce481 mm[Hg][facility], KY57-39-0068 15:17-0400Pulse (Heart Rate)89 /minUK [facility], VS48-13-1924 15:17-0400Pulse Ukqbxkpl09 %[facility], EP36-18-6571 15:17-0400Respiratory Rate16 /[facility], ZB31-18-7569 20:48-0400Body Csfwfqmgqas46.1 [degF][facility], LP70-82-8747 20:48-0400BP Frqfgrqnc02 mm[Hg][facility], VK48-94-5459 20:48-0400BP Wuxuqoci118 mm[Hg][facility], ZC98-74-3398 20:48-0400Pulse (Heart Rate)72 /[facility], SR58-26-0898 20:48-0400Pulse Kfucimfl76 %[place], MT17-98-6988 20:48-0400 Respiratory Rate18 /[facility], RB12-41-6962 12:17-0500BP Tutaeozzd54 mm[Hg][facility], XT25-13-6274 12:17-0500BP Ndwlrnkd226 mm[Hg][facility], TT16-84-2138 12:17-0500Pulse (Heart Rate)52 /[facility], VD45-30-9970 12:17-0500 Respiratory Rate6 /minM[facility], WO05-11-8894 11:45-0500Pulse Tdthptyq14 %[facility], EZ26-85-1795 08:24-0500BMI (Body Mass Index)28.32 kg/f2[facility]xnxkyMain [facility], YG25-27-0776 08:24-0500Body Lzzookilygs03.81 [degF][facility], VG66-60-3353 08:24-0500Body oadedc93.84 kgJuMain Campus Medical Center, FM65-19-5371 08:24-8502Neuozr523.6 cmJuMain Campus Medical Center, [place] Encounters Encounter DateEncounter TypeCare ProviderFacilityStart: 49-32-2529axzpcdcfby Du CrowbsFacility:[facility] MorrisueStart: 91-15-6336mehgliobnbKMLKOFU PELLE Facility:[facility]: 07-22-2025 End: 29-80-0567stpgtcqvckSEUESRM PELLEFacility:[facility] Hospitaltart: 07-15-2025 End: 50-46-1523clxicchbpnApvc L SchwabFacility:[facility] MorrisueStart: 07-13-2025 End: 92-63-7439vmwbhkyzeeNYXC PARKERFacility:[facility] Hospitaltart: 07-03-2025 End: 00-09-8043Zbjrfagin department patient visitJO IZACity of Hope, Phoenixasia [place] Emergency DepartmentComment on above:Sciatica of left side (Primary Dx)Start: 06-23-2025 End: 86-42-9378Vycnrwpbf department patient visitJODI TOÑOWood County Hospitalasia [place] Emergency DepartmentComment on above:Acute left-sided low back pain with left- sided sciatica (Primary Dx)Start: 06-04-2025 End: 98-24-0828qcmffiowbdLLWLOHA Ruddy YADAVWood County Hospitalasia Mulberry HospitalStart: 06-04-2025 End: 98-21-3637Daxmllqypo hospital visit by Aladeel Hernández [address] [place] [address] RadiologyComment on above:Sprain of right hip, initial encounter Start: 05-28-2025 End: 45-67-7841jkiuelezksMzrk L SchwabFacility:JUMA FrostevueStart: 05-19-2025 End: 77-49-6405nybfbrxsodBDAFF ROSNECKFacility:[facility] Hospitaltart: 05-19-2025 End: 10-22-3936Ykeawoz encounter procedureDeniz Encarnacion MD Work Phone: [phone] [place], [place] [address]Comment on above:Acetabular labrum tear, right, subsequent encounter (Primary Dx)Start: 05-13-2025 End: 09-06-8468Mfybvuvkc Result EncounterCorey Siobhan DO Work Phone: noms External Department UnsolicitedStart: 05-13-2025 End: 77-90-8369Bflrnxnrd Result EncounterCorey Siobhan DO Work Phone: noms External Department UnsolicitedStart: 05-08-2025 End: 63-77-7763Upkedwhrm Result EncounterCorey Siobhan DO Work Phone: noms External Department UnsolicitedStart: 05-08-2025 End: 39-07-8730Iagjikozj Result EncounterCorey Siobhan DO Work Phone: NOMS External Department UnsolicitedStart: 05-07-2025 End: 88-34-9428Cosuunrgv Result EncounterCorey Siobhan DO Work Phone: noms External Department UnsolicitedStart: 05-07-2025 End: 57-28-8869Civyjdngg Result EncounterCorey Siobhan DO Work Phone: noms External Department UnsolicitedStart: 05-05-2025 End: 55-15-9536zwpiejfavgJmrfy Rosneck MD Work Phone: sChestnut Hill HospitalComment on above:Hip crackingStart: 04-30-2025 End: 61-04-4645tlvmetohpoJxhw L SchwabFacility:FT FM BellevueStart: 04-16-2025 End: 59-87-8849Otqeieyhvf hospital visit by Nirmal Tellez Physical TherapyStart: 04-14-2025 End: 57-70-7022gywcswfdgoJTI SHELLY A LEHMANNFacility:FT FM BellevueStart: 04-13-2025 End: 58-17-2808kxkeqdrihnHITL [facility] HospitalStart: 04-13-2025 End: 47-14-9506Gpqbadsdyn hospital visit by Nirmal Tellez Physical TherapyComment on above:ArrivedStart: 04-10-2025 End: 59-66-7899Eenlpcfmqqli consultation with Jordan Villafuerte PA-C Work Phone: sMemorial Medical Centertart: 04-10-2025 End: 09-57-4769vkvzbjdhgvUlrlmthDaren Villafuerte PA-C Work Phone: sCh[facility] Care FacilityComment on above:Acetabular labrum tear, right, subsequent encounter (Primary Dx)Start: 04-09-2025 End: 26-70-1857tkiuloyrzrGBXD [facility] HospitalStart: 04-09-2025 End: 37-92-0620Qetkcuoxwl hospital visit by Nirmal Tellez Physical TherapyComment on above:ArrivedStart: 04-07-2025 End: 83-95-9499Rwljdqovva hospital visit by Kiara BEVERLY Physical TherapyStart: 04-06-2025 End: 13-28-6043Gqkwli outpatient visit 15 Melissa Glaser PA-C Work Phone: Pain ManagementComment on above:Fibromyalgia (Primary Dx); Back pain with history of spinal surgery; Status post lumbar spinal fusion; Status post hip surgeryStart: 04-06-2025 End: 29-93-5903fizudknwpiIORPKMH L MALINEFacility:[facility] Start: 04-01-2025 End: 11-28-8728dcvjtbegfqKGFJMiami Valley Hospitaltart: 04-01-2025 End: 18-34-3715Llphxxcmnk hospital visit by Kiara BEVERLY Physical TherapyComment on above:ArrivedStart: 03-30-2025 End: 16-01-4194igdrwksahzTKAGNovant Health Cle[facility] HospitalStart: 03-30-2025 End: 95-38-7687Qmqxcvmcyf hospital visit by Kate Lewis PTAMTHZ Physical TherapyComment on above:ArrivedStart: 03-25-2025 End: 75-58-9621Zsztsna encounter procedureEmg 5 Neur Main (Max Weight: 1000) NeurologyStart: 03-25-2025 End: 92-54-0436gvznxsrrqeOIAXJDG REDDYNeurologyComment on above:EMGStart: 03-24-2025 End: 25-25-4569lpmkhzdygkXQWENovant Health Clemmons [facility] Center HospitalStart: 03-24-2025 End: 38-78-4345Tshuoulpfl hospital visit by Kiara BEVERLY Physical TherapyComment on above:ArrivedStart: 03-19-2025 End: 17-95-1897Wsmbmszegb hospital visit by Kate Lewis PTAMTHZ Physical TherapyStart: 03-18-2025 End: 92-41-9527chdzszdrtdNstmi Rosneck MD Work Phone: sosteopathic hospital of rhode islandj HealthComment on above:FmlaStart: 03-16-2025 End: 85-49-1937fuqdbhlbgmIHLLNovant Health Cle[facility] Center HospitalStart: 03-16-2025 End: 43-89-4529Esdyawmxls hospital visit by Kate Lewis PTAMTHZ Physical TherapyComment on above:ArrivedStart: 03-11-2025 End: 75-92-3816pyqxcxwhscJSCMNovant Health Clemmons Medical Center HospitalStart: 03-11-2025 End: 97-04-0907Mklzsdhhsv hospital visit by Nirmal BarkleyMTHZ Physical TherapyComment on above:ArrivedStart: 03-10-2025 End: 45-27-1322Xsjjrfs encounter Chery Villafuerte PA-C Work Phone: sChinle Comprehensive Health Care FacilityComment on above:Acetabular labrum tear, right, subsequent encounter (Primary Dx)Start: 03-10-2025 End: 68-29-7482iwpccboqxaSSSVXCR L BANJACFacility:[facility] Start: 20-76-8493xhlviqvqixDMIZNovant Health Clemm[facility] Medical Center HospitalStart: 03-09-2025 End: 39-52-6788Uimysleuhx hospital visit by Nirmal HernandezgerMTHZ Physical TherapyStart: 03-05-2025 End: 99-85-4467kauvzldkteYVCTNovant Health Clemmons Medical Center HospitalStart: 03-05-2025 End: 08-91-1670Bscoaakbju hospital visit by Luana Virk PTMTHMarin Physical TherapyComment on above:ArrivedStart: 03-04-2025 End: 65-87-7252Etjdvdg encounter Juancarlos Haas MD Work Phone: [facility] CenterComment on above:Chronic pain syndrome (Primary Dx); Failed back syndrome; Mechanical back pain; Segmental and somatic dysfunction of sacral region; Bilateral carpal tunnel syndromeStart: 03-04-2025 End: 47-24-8671yjryfzaehqQYFXNLT REDDYFacility:[facility] Hospitaltart: 03-02-2025 End: 75-46-8646Odukpscetn hospital visit by Luana BEVERLY Physical TherapyStart: 02-27-2025 End: 96-93-5487xhydbglhtnPUCJ SCHWABMercy Tiffin HospitalStart: 02-27-2025 End: 46-32-1088Ezwjyjrmnn hospital visit by Zachery Todd PTAMTHZ Physical TherapyComment on above:ArrivedStart: 02-26-2025 End: 40-00-6744Iavninsbt encounterDeniz Encarnacion MD Work Phone: [facility] Rheum InstituteComment on above:Post Op; Patient UpdateStart: 02-24-2025 End: 37-93-2020sbsrzywkgoZNMH SCHWABMercy Tiffin HospitalStart: 02-24-2025 End: 30-28-1543Gclfphexhk hospital visit by Kiara Hernández PTMTHZ Physical TherapyComment on above:ArrivedStart: 02-23-2025 End: 98-71-3663owfilojilsZWJJV ROSNECKFacility:[facility] HospitalStart: 02-19-2025 End: 59-03-3346Bxcdcb flowsheetCorey Siobhan DO Work Phone: noms BCP OBStart: 02-19-2025 End: 74-63-0929Tptjwf flowsheetCorey Siobhan DO Work Phone: noms BCP OBStart: 02-19-2025 End: 01-86-3553Opexmpqbh Result EncounterCorey Siobhan DO Work Phone: noms External Department UnsolicitedStart: 02-19-2025 End: 49-78-0978Mmlgadh encounter procedureCorey Siobhan DO Work Phone: [facility] Work Phone: Start: 02-19-2025 End: 34-62-4808Ssklqavx preventive med est patient 40-64yrsCorey Siobhan DO Work Phone: noms BCP OBComment on above:Well woman exam with routine gynecological exam; Breast cancer screening by mammogram; Dyspareunia, female; Hormone disorder; Pelvic pain in femaleStart: 02-19-2025 End: 12-36-0860tlhtyvlarxIOWCJ FAZIONot AvailableStart: 02-18-2025 End: 00-67-8530cdyxzbnqfpJqds Messi [facility] Hospitalcility:JUMA COLBERT RoqueueStart: 02-16-2025 End: 19-89-9234Jfvtafrwf to establishmentNew[facility] [address] Other Phone: Pre AnesthesiaStart: 02-16-2025 End: 09-87-7850Hglamec encounter procedureNewport Community Hospital [address] Other Phone: Pre AnesthesiaComment on above:Pre-op exam (Primary Dx); Gastroesophageal reflux disease, unspecified whether esophagitis present; Obesity, Class I, BMI 30-34.9Start: 02-16-2025 End: 52-94-1725Ncvowhrhikajg examination doneNewport [facility] [address] Other Phone: [facility] Work Phone: Start: 02-16-2025 End: 65-80-5569jthmxdrxuwUZYEX ROSNECKFacility:[facility] HospitalStart: 02-16-2025 Encounter for other preprocedural examinationDENIZ Perez HospitalStart: 02-10-2025 End: 14-23-4911Ubijviibcz hospital visit by Nirmal Tellez Physical TherapyStart: 41-94-9831obhrfichruROMZKing's Daughters [facility] Start: 02-06-2025 End: 55-63-5289Igohsqhmyv hospital visit by Ailin BENDER Physical TherapyStart: 02-04-2025 End: 82-34-2065secjwiprqzMKIYMiami Valley Hospitaltart: 02-04-2025 End: 61-18-3109Arwesokeuu hospital visit by Ailin BENDER Physical TherapyComment on above:ArrivedStart: 02-03-2025 End: 05-43-7198Tdyoqstkz to same day surgery Matt Francis AT Work Phone: [facility] HealthComment on above:Schedule Surgery (Right hip arthroscopy )Start: 02-03-2025 End: 82-88-1297nwvsnxevvfNcnmfv J Mindeck AT Work Phone: [facility] CenterStart: 01-28-2025 End: 39-31-2699Tbfrxv outpatient visit 15 minutesCorey Siobhan DO Work Phone: noMS BCP OBComment on above:Pelvic pain in female; Hormone disorderStart: 01-28-2025 End: 93-98-2433ohskhhcudwYEMHM FAZIONot AvailableStart: 01-28-2025 End: 61-23-6942Erpitr flowsheetCorey Siobhan DO Work Phone: noMS BCP OBStart: 01-28-2025 End: 73-56-4598Dtchle flowsheetCorey Siobhan DO Work Phone: noms BCP OBStart: 01-21-2025 End: 23-15-1079cxgkvzlymgUKBE SCHWABWood County Hospitalasia Keithfin HospitalStart: 01-21-2025 End: 50-58-5396Vxmybaybdl hospital visit by Zachery Todd PTAMTHZ Physical TherapyComment on above:ArrivedStart: 01-19-2025 End: 30-57-7437vheqdrointOQKS [facility] HospitalStart: 01-19-2025 End: 61-80-1290Mwdhxyijfx hospital visit by Kiara Hernández PTMTHZ Physical TherapyComment on above:ArrivedStart: 01-16-2025 End: 21-19-6569vdmxnyejgwJjet L SchwabFacility:[facility] BellevueStart: 01-16-2025 End: 10-09-1505Qbafmndij encounterDeniz Encarnacion MD Work Phone: [facility] InstituteComment on above:ResultsStart: 01-07-2025 End: 22-22-3938Hwjejjg encounter procedureDeniz Encarnacion MD Work Phone: sports HealthComment on above:Pain in right hip (Primary Dx)Start: 01-07-2025 End: 71-57-8782jlmfzibzzqGDTXO ROSNECKFacility:[facility] HospitalStart: 01-05-2025 End: 42-76-0608Cwbkqm outpatient new 45 minutesAlexandtee Guzmán MD Work Phone: OrthopaedicsComment on above:Pain in right hip (Primary Dx); Labral tear of hip, degenerativeStart: 01-05-2025 End: 26-97-2791Cqwrsmt encounter Eriberto Huang MD Work Phone: pain ManagementComment on above:Fibromyalgia (Primary Dx); Diffuse pain; Back pain with history of spinal surgery; Status post lumbar spinal fusion; Chronic pain syndrome; History of suicide attemptStart: 01-05-2025 End: 91-32-0395emmuqliezeEAUVKSEIZ ROTHFacility:[facility] Hospitaltart: 01-05-2025 End: 56-85-3503Cjavltxhkn hospital visit by physicianXr Natali [facility] Aaliyah Work Phone: RadiologyComment on above:Pain in right hip [M25.551] Start: 78-62-7586welcbhpfamZRAOJXZ REDDYFacility:[facility] HospitalStart: 12-26-2024 End: 73-32-7748Qbrimsuqci hospital visit by physicianCt [facility] RadiologyComment on above:Spinal stenosis of lumbar region, unspecified whether neurogenic claudication present [M48.061]Start: 12-19-2024 End: 77-58-0071Yjwfqctqe department patient visitDoc Felix MD Work Phone: [facility] Emergency DepartmentComment on above: Degeneration of intervertebral disc of lumbar region with discogenic back pain and lower extremity pain (Primary Dx)Start: 12-18-2024 End: 25-65-1406Faxcinesw Raúl Huang MD Work Phone: pain ManagementComment on above:Appointment (New patient call)Start: 12-17-2024 End: 42-03-8851Bsemnyxla Meliton Haas MD Work Phone: Rehab MedicineStart: 12-15-2024 End: 68-29-3532toirpurqusQMLFJFC REDDYFacility:[facility] Hospitaltart: 12-15-2024 End: 58-22-5086Uwfssqc encounter procedureJohnathan Haas MD Work Phone: Reh MedicineComment on above:Status post lumbar spinal fusion (Primary Dx); Unilateral groin pain; Labral tear of hip, degenerative; Pain in right hip; Spinal stenosis of lumbar region, unspecified whether neurogenic claudication present; Other depression; PTSD (post-traumatic stress disorder); Chronic pain syndromeStart: 12-05-2024 End: 20-48-6015ngofdwehibYwma L SchwabFacility:[facility] BellevueStart: 12-03-2024 End: 58-73-1050Xbbkznmpa department patient visitCatherine Calvillo MD Work Phone: [facility] Emergency DepartmentComment on above: Numbness and tingling of right side of face (Primary Dx); Upper back strain, initial encounterStart: 11-14-2024 End: 74-79-0206oflsudfzuhAUYK [facility] HospitalStart: 11-14-2024 End: 03-50-4371Htguivcwzj hospital visit by Ari More MD Work Phone: [facility] RadiologyComment on above:Labral tear of hip, degenerative; Right hip painStart: 10-16-2024 End: 04-55-3923wkrvzjfvfuZamy L SchwabFacility:[facility]ueStart: 10-15-2024 End: 42-50-2845Bmlguvxhi department patient visitDoc Felix MD Work Phone: [facility] Emergency DepartmentComment on above: Orthostasis (Primary Dx)Start: 10-06-2024 End: 22-58-2302Gvj Drop offJodi L Toño [facility] Start: 10-06-2024 End: 59-79-3774islmfiknvgGDG Lidia L SchwabFacility:FTMCStart: 10-02-2024 End: 76-80-2721Tglwqc outpatient new 30 minutesMohamfoster Thomas MD Work Phone: [facility] Vascular SurgeryComment on above:Raynaud's disease without gangrene (Primary Dx); Cold feet; Discoloration of skin of footStart: 09-17-2024 End: 80-25-1613lkytejttufDFSNS SHENDGE VProMedica Goodrich HospitalStart: 09-17-2024 End: 56-02-5620Oikahy outpatient visit 25 minutesMyra Grant PA Work Phone: [facility] RheumatologyComment on above: Fibromyalgia (Primary Dx)Start: 09-16-2024 End: 88-22-9130Zwd Drop offJodi L Toño [facility] Start: 09-16-2024 End: 69-43-6385cbaelqbuzwQtve L SchwabFacility:FTMCStart: 08-06-2024 End: 18-38-9289Qhrqmg outpatient visit 25 minutesShirin Nath MD MPH Work Phone: [facility] RheumatologyComment on above: Polyarthritis (Primary Dx); Osteoarthritis, unspecified osteoarthritis type, unspecified site; Fibromyalgia; Muscle tension painStart: 08-06-2024 End: 96-97-0291xuyojrlhllGZRTZ MISS[facility] REHABILITATION CENTERATIToledo Hospitalca Goodrich HospitalStart: 07-30-2024 End: 30-04-8121Wkkpemmkir hospital visit by Eduar Delgado [facility]AG[facility] Physical TherapyStart: 07-28-2024 End: 60-92-7501xszxljikqwBguv L SchwabFacility:FT BellevueStart: 07-25-2024 End: 24-46-3217Wgwoyxiipq hospital visit by Lucas Bonilla [facility]AGAR[facility] Physical TherapyStart: 07-18-2024 End: 33-58-6787yduaxmxsonASAD SCHWABMercy Mulberry HospitalStart: 07-18-2024 End: 18-67-5329Pefiyvttwa hospital visit by Lucas Bonilla [facility] Physical TherapyComment on above:ArrivedStart: 07-16-2024 End: 24-42-4324Mxfgknebhv hospital visit by Lucas Bonilla PTAMTHZ Physical TherapyStart: 07-11-2024 End: 08-66-2298otwxedyjydPKJR SCHWABMercy MulberryGuthrie Towanda Memorial Hospitaltart: 07-11-2024 End: 92-14-1377Rekshwkkhc hospital visit by physicianDiann Tao PTAMTHZ Physical TherapyComment on above:ArrivedStart: 07-04-2024 End: 11-81-0209Wcdgmhqgdo hospital visit by Lucas Bonilla PTAMTHZ Physical TherapyStart: 06-30-2024 End: 42-57-8117gsulucldunSwzs L SchwFacility:[facility] Westtart: 06-27-2024 End: 63-42-3475Mjluwkxscj hospital visit by Lucas Bonilla PTAMTHZ Physical TherapyComment on above:ArrivedStart: 98-69-3506wffhqtatmnMdoq M Logan Facility:Behavioral HealthStart: 06-20-2024 End: 37-31-6427Pzvbnenbvn hospital visit by Kiara BEVERLY Physical TherapyComment on above:ArrivedStart: 06-13-2024 End: 67-76-9110Gwadolyvsl hospital visit by Kiara BEVERLY Physical TherapyComment on above:ArrivedStart: 06-10-2024 End: 58-22-1937zedoexmlytScek M LoganFacility:Behavioral HealthStart: 06-10-2024 End: 98-92-1358Wacjyjh encounter procedureDarlene Jenkins [facility] Health start: 06-09-2024 End: 62-40-3406Jsekai flowsheetCorey Siobhan DO Work Phone: noms BCP OBStart: 06-09-2024 End: 32-69-7778Fzqobyslh Result EncounterCorey Siobhan DO Work Phone: noms External Department UnsolicitedStart: 06-09-2024 End: 09-48-2493Llofkojtr Result EncounterCorey Siobhan DO Work Phone: noms External Department UnsolicitedStart: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 04-06-2025 End: 83-08-5793Wxfdfgj encounter procedurePain ManagementComment on above:3 MONTH FOLLOW UPStart: 04-02-2025 End: 25-88-6510Dcnnzwb encounter umoqrnskj43/24/2025 2:00 PM EDT Appointment [facility] Physical Therapy [address] [place] [address] Sergio Barkley AMMarin Physical TherapyStart: 04-01-2025 End: 82-23-6692Wdihafm encounter qbdfhqeds42/23/2025 3:45 PM EDT Appointment [facility] Physical Therapy [address] [place] [address] Malaika Hernández PTMTHMarin Physical TherapyStart: 03-30-2025 End: 24-55-5242Sqhlhab encounter utchxnafb26/21/2025 3:00 PM EDT Appointment [facility] Physical Therapy [address] [place] [address] Malaika Hernández PTMTHMarin Physical TherapyStart: 03-25-2025 End: 81-58-2816agdzuhhdheTerqwmeulRopqhjp on above:: Bilateral carpal tunnel syndrome [G56.03]SC R>L TIN FLOPPER (CTS)Start: 03-24-2025 End: 65-01-8225Hyhfwhm encounter dldompmka39/15/2025 1:00 PM EDT Appointment [facility] Physical Therapy [address] [place] [address] Malaika Hernández, PT UPOCMTHZ Physical TherapyComment on above:UPOCStart: 03-19-2025 End: 53-15-9448Fuqgzby encounter wrahcxltm78/10/2025 11:15 AM EDT Appointment [facility] Physical Therapy [address] [place] [address] Corby Lewis PTAMTHZ Physical TherapyStart: 03-16-2025 End: 77-44-1630Niaiofw encounter xehlceerz77/07/2025 11:15 AM EDT Appointment [facility] Physical Therapy [address] [place] [address] Corby Lewis PTAMTHZ Physical TherapyStart: 03-12-2025 End: 40-01-0017Wfxldfy encounter pdtagsrmh60/03/2025 11:15 AM EDT Appointment [facility] Physical Therapy [address] [place] [address] Corby Lewis PTAMTHZ Physical TherapyStart: 03-10-2025 End: 10-36-0305Inseiqd encounter hhgesdxkh29/01/2025 1:30 PM EDT Office [facility] [address] [place] [address] Madyson Villafuerte PA-C [address] [place] [address]'s HospitalComment on above:RIGHT HIPStart: 03-10-2025 End: 82-67-7807Zwkesqi encounter wpbmwnjfa77/01/2025 11:15 AM EDT Appointment [facility] Physical Therapy [address] [place] [address] Corby Lewis PTAMTHZ Physical TherapyStart: 03-09-2025 End: 29-46-0958Yizrmdu encounter ilnifiofb20/30/2025 7:45 AM EDT Appointment [facility] Physical Therapy [address] [place] [address] Sergio Barkley Physical TherapyStart: 30-73-0623Uyetv BMI Screening Adult BMI ScreeningWood County Hospital SystemStart: 41-49-4733Bxlhnym Screening Tobacco ScreeningWood County Hospital SystemStart: 03-05-2025 End: 66-46-9449Rjfvhur encounter procedureMTHZ Physical TherapyStart: 03-04-2025 End: 40-95-6871Vcsxnqk encounter opkzhrgwo23/25/2025 10:40 AM EDT Office Visit [facility] [address] [phone] Johnathan Haas MD [address] [place] [address] LBP, Hip pain, Needs New ImagingSpine InstituteComment on above:LBP, Hip pain, Needs New ImagingStart: 03-02-2025 End: 47-51-0581Bmmffkr encounter vtphjmfuc69/23/2025 1:00 PM EDT Appointment [facility] Physical Therapy [address] [place] [address] Arturo Virk, PTMTHZ Physical TherapyStart: 02-27-2025 End: 70-46-1640Zcbgpnt encounter vvwgugkso45/20/2025 11:45 AM EDT Appointment [facility] Physical Therapy [address] [place] [phone] Charlene Todd, PTAMTHZ Physical TherapyStart: 02-24-2025 End: 54-39-0214Jjslgfa encounter eakvicpbg10/17/2025 11:15 AM EDT Appointment [facility] Physical Therapy [address] [place] [address] Malaika Hernández, PT R Hip ReplacementMTHZ Physical TherapyComment on above:R Hip ReplacementStart: 02-23-2025 End: 98-78-6065Mlfbdfvqi to same day surgery aspptg9002/23/2025 12:05 PM EDT - 02/23/2025 2:19 PM EDT Surgery [facility] [address] [place] [address] Deniz Encarnacion MD [address] [facility] [place] [phone] ARTHROSCOPY HIP W/ LABRAL REPAIRHenry County Hospital Ambulatory Surgery - ASCEComment on above: ARTHROSCOPY HIP W/ LABRAL REPAIRStart: 02-23-2025 End: 69-96-7588Ptldjubtknk hip w/labral repairARTHROSCOPY HIP W/ LABRAL REPAIR Labral tear of hip, degenerative 02/23/2025 12:05 PM EDTMM ASCStart: 02-23-2025 Subsequent hospital visit by jyolfysqw00/16/2025 12:05 PM EDT Hospital Encounter [facility] [address] [place] [address] Deniz Encarnacion MD [address] [facility] [place] [address] Labral tear of hip, degenerative [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] [facility] - ASCEComment on above:Labral tear of hip, degenerative [M24.159]Start: 02-23-2025 End: 11-19-7227Wwgulgwuk to same day surgery rqzgjc2202/23/2025 7:30 AM EDT - 02/23/2025 9:45 AM EDT Surgery [facility] [place] [address] [place] [phone] Deniz Encarnacion MD [address] [place] [address] ARTHROSCOPY HIP W/ LABRAL REPAIROhiohealth Surgery - ASCEComment on above: ARTHROSCOPY HIP W/ LABRAL REPAIRStart: 02-23-2025 End: 54-71-1544Waqyqrttheh hip w/labral repairARTHROSCOPY HIP W/ LABRAL REPAIR Labral tear of hip, degenerative 02/23/2025 7:30 AM EDTMM ASCStart: 02-23-2025 Subsequent hospital visit by fxsixztkr90/16/2025 7:30 AM EDT Hospital Encounter [facility] [place] [address] [place] [phone] Deniz Encarnacion MD [address] [place] [address] Labral tear of hip, degenerative [M24.159] [facility] - ASCEComment on above:Labral tear of hip, degenerative [M24.159]Start: 02-19-2025 End: 04-19-7768Gqcaozr encounter procedureNOMS BCP OBComment on above:Arrived Start: 02-16-2025 End: 93-29-7727Sibsocw encounter wqdskimvk41/09/2025 3:45 PM EDT Appointment [facility] [address] [place] [address] Malaika Hernández, PT upocMTHZ Physical TherapyComment on above:upocStart: 02-12-2025 End: 98-59-6126Whnjhbs encounter umqutljhs48/05/2025 3:45 PM EDT Appointment [facility] Therapy [address] [place] [address] [phone] Layla Sr, PTAMTHZ Physical TherapyStart: 02-10-2025 End: 11-94-3309Vmomioh encounter gdcamxvig14/03/2025 4:00 PM EDT Appointment [facility] Physical Therapy [address] [place] [address] Sergio Barkley Physical TherapyStart: 02-06-2025 End: 82-31-3378Pkrxncb encounter tyvxjdfur71/30/2025 3:30 PM EDT Appointment [facility] Physical Therapy [address] [place] [address] Diann Tao PTAMTHZ Physical TherapyStart: 02-04-2025 End: 86-46-7386Vetzgze encounter zubcnuzpm70/28/2025 3:45 PM EDT Appointment [facility] Physical Therapy [address] [place] [address] Diann Tao PTAMTHZ Physical TherapyStart: 01-28-2025 End: 92-33-7559Pguhpwt encounter gudlmfymv79/21/2025 3:50 PM EDT Office Visit [facility] [address] [place] [phone] Tommie Mccann, DO [address] [place] [address] ArrivedNOMS BCP OBComment on above:ArrivedStart: 01-21-2025 End: 65-90-8053Ftxjhmu encounter xlhuoqiuw87/14/2025 3:15 PM EDT Appointment [facility] Physical Therapy [address] [place] [address] Charlene Todd PTAMTHZ Physical TherapyStart: 89-86-1753Wpnrh BMI ScreeningAdult BMI ScreeningProUniversity Hospitals [facility] SystemStart: 43-00-6956Juirailrl for malignant neoplasm of breastBon [facility] – JacksonStart: 67-22-6801Bgseodn Screening Tobacco ScreeningProUniversity Hospitals [facility] Medical [facility] SystemStart: 01-07-2025 End: 27-32-9159Poyoiyj encounter uqtsanjvh71/30/2025 10:45 AM EDT Office Visit [facility] [address] [place] [address] Egcivis, James, MD [address] [place] [address] Rt hip (scope) ref by dr Long HealthComment on above:Rt hip (scope) ref by dr Ornelas: 01-05-2025 End: 23-52-8522Qqvybvm encounter procedurePain ManagementComment on above:Status post lumbar spinal fusion [Z98.1]Labral tear of hip, degenerative [M24.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] Start: 12-26-2024 End: 74-42-5810Gyqpgaj encounter pgwlglahl78/18/2025 7:30 PM EDT Appointment [facility] [address] [place] [address] Spinal stenosis of lumbar region, unspecified whether neurogenic claudication present [M48.061][facility] CT ScanComment on above: Spinal stenosis of lumbar region, unspecified whether neurogenic claudication present [M48.061]Start: 59-58-4705Fupfs BMI ScreeningAdult BMI Screening [facility] SystemStart: 97-61-6138Rmxxdhe ScreeningTobacco Screening [facility] Centertart: 12-02-2024 End: 12-94-5519Zzbprqc encounter yxicotgcr92/25/2025 8:00 AM EDT Office Visit [facility] [address] [place] [phone] [place] [address] [place] [address] [address] [place] [phone] [facility] Start: 09-17-2024 End: 29-14-5812Voyoxuj encounter ybcqgmyhq05/08/2025 8:45 AM EST Office Visit [facility] [address] [place] [phone] [place] [address] [place] [address] [address] [place] [phone] [facility] Start: 08-13-2024 End: 61-23-4279Govwsgg encounter oqkamgmdy65/04/2024 9:00 AM EST Office Visit [facility] [address] [phone] Shirin Nath MD MPH [address] [phone] [facility] RheumatologyStart: 08-01-2024 End: 85-42-8306Tqazwku encounter duugrnxcu12/22/2024 10:30 AM EST [facility] [address] [place], [place] [phone] Malaika Hernández, PT UPOCMTHZ Physical TherapyComment on above:UPOCStart: 07-30-2024 End: 52-36-0409Bbjekkw encounter vtjfemblt06/20/2024 9:00 AM EST Appointment [facility] Physical Therapy [address] [place] [address] Faizan Delgado PTAMTHZ Physical TherapyStart: 07-25-2024 End: 70-67-0362Cbngwup encounter /15/2024 9:30 AM EST Appointment [facility] Physical Therapy [address] [place] [address] Venessa Bonilla PTAMTHZ Physical TherapyStart: 07-23-2024 End: 10-99-5401Omfcedc encounter bkhuagvth89/13/2024 9:00 AM EST Appointment [facility] Physical Therapy [address] [place] [address] Faizan Delgado PTAMTHZ Physical TherapyStart: 07-18-2024 End: 53-13-4094Jczipnr encounter umswlsnre42/08/2024 9:30 AM EST Appointment [facility] Physical Therapy [address] [place] [address] Venessa Bonilla PTAMTHZ Physical TherapyStart: 07-16-2024 End: 59-55-2021Zyhsnav encounter procedureMTHZ Physical TherapyStart: 07-11-2024 End: 51-55-4097Jxfcfef encounter procedureMTHZ Physical TherapyStart: 07-09-2024 End: 98-86-3421Wzzlrcp encounter ydutxvoux43/30/2024 9:00 AM EDT Appointment [facility] Physical Therapy [address] [place], [place] [phone] Faizan Delgado PTAMTHZ Physical TherapyStart: 07-04-2024 End: 21-47-4225Jdzozsd encounter hiaeyvwbe58/25/2024 9:30 AM EDT Appointment [facility] Physical Therapy [address] [place], [place] [phone] Venessa Bonilla PTAMTHZ Physical TherapyStart: 07-02-2024 End: 12-99-5980Mbyyjdb encounter jwtxfecpf97/23/2024 9:00 AM EDT Appointment [facility] Physical Therapy [address] [place] [address] Faizan Delgado PTAMTHZ Physical TherapyStart: 06-27-2024 End: 83-00-7220Skzgoxe encounter jtsnyeoqp19/18/2024 9:30 AM EDT Appointment [facility] Physical Therapy [address] [place] [address] Venessa Bonilla PTAMTHZ Physical TherapyStart: 06-25-2024 End: 07-96-7905Iyqexhm encounter tqjabwvwf73/16/2024 9:00 AM EDT Appointment [facility] Physical Therapy [address] [place] [address] Faizan Delgado PTAMTHZ Physical TherapyStart: 06-20-2024 End: 46-81-4904Iosvfzv encounter zcyedfjuw01/11/2024 10:30 AM EDT Appointment [facility] Physical Therapy [address] [place] [address] Malaika Hernández PTMTHZ Physical TherapyStart: 06-18-2024 End: 60-96-3631Oojmdbq encounter lrebcuchj91/09/2024 11:30 AM EDT Appointment [facility] Physical Therapy [address] [place] [address] Charlene Todd PTAMTHZ Physical TherapyStart: 06-09-2024 End: 41-19-7518P-peptideC-peptide Lab Routine Hormone disorder Expected: 06/09/2024, Expires: 06/09/2025[facility] HealthcareComment on above:Expected: 06/09/2024, Expires: 06/09/2025Start: 06-09-2024 End: 76-40-1537Bxjenjmr freeCortisol, free Lab Routine Hormone disorder Expected: 06/09/2024, Expires: 06/09/2025NONH HealthcareComment on above: Expected: 06/09/2024, Expires: 06/09/2025Start: 06-09-2024 End: 54-79-4175XXTC-sulfateDHEA-sulfate Lab Routine Hormone disorder Expected: 06/09/2024 (Approximate), Expires: 06/09/2025NONH HealthcareComment on above: Expected: 06/09/2024 (Approximate), Expires: 06/09/2025Start: 06-09-2024 End: 41-89-4412LzsdeutezBziujyrkl Lab Routine Hormone disorder Expected: 06/09/2024 (Approximate), Expires: 06/09/2025 Healthcare Work Phone: comment on above:Expected: 06/09/2024 (Approximate), Expires: 06/09/2025Start: 06-09-2024 End: 16-17-8913MjuilghUllfawb Lab Routine Hormone disorder Expected: 06/09/2024 (Approximate), Expires: 06/09/2025NH HealthcareComment on above:Expected: 06/09/2024 (Approximate), Expires: 06/09/2025Start: 06-09-2024 End: 61-33-6128Xshrvoiq [Mass/volume] in Serum or PlasmaFerritin Lab Routine Hormone disorder Expected: 06/09/2024 (Approximate), Expires: 06/09/2025NONH HealthcareComment on above:Expected: 06/09/2024 (Approximate), Expires: 06/09/2025Start: 06-09-2024 End: 73-49-4882Kjaopmw [Mass/volume] in Serum or PlasmaGlucose, random Lab Routine Hormone disorder Expected: 06/09/2024, Expires: 06/09/2025NONH HealthcareComment on above:Expected: 06/09/2024, Expires: 06/09/2025Start: 06-09-2024 End: 59-82-3031Uqyvcwpylt A1c/Hemoglobin.total in BloodHemoglobin A1c Lab Routine Hormone disorder Expected: 06/09/2024 (Approximate), Expires: 06/09/2025 NOMS HealthcareComment on above:Expected: 06/09/2024 (Approximate), Expires: 06/09/2025Start: 06-09-2024 End: 47-82-9487Zsxawod, totalInsulin, total Lab Routine Hormone disorder Expected: 06/09/2024, Expires: 06/09/2025NOMS HealthcareComment on above: Expected: 06/09/2024, Expires: 06/09/2025Start: 06-09-2024 End: 91-03-7349YdrkhhenttzgNxvbganziibr Lab Routine Hormone disorder Expected: 06/09/2024 (Approximate), Expires: 06/09/2025NONH HealthcareComment on above: Expected: 06/09/2024 (Approximate), Expires: 06/09/2025Start: 06-09-2024 End: 45-90-7471Rmzrconue serumSerotonin serum Lab Routine Hormone disorder Expected: 06/09/2024, Expires: 06/09/2025NONH HealthcareComment on above: Expected: 06/09/2024, Expires: 06/09/2025Start: 06-09-2024 End: 19-29-8653Abz hormone binding globulinSex hormone binding globulin Lab Routine Hormone disorder Expected: 06/09/2024 (Approximate), Expires: 06/09/2025 NOMS HealthcareComment on above:Expected: 06/09/2024 (Approximate), Expires: 06/09/2025Start: 06-09-2024 End: 26-28-9925Z9, reverseT3, reverse Lab Routine Hormone disorder Expected: 06/09/2024 (Approximate), Expires: 06/09/2025NONH HealthcareComment on above: Expected: 06/09/2024 (Approximate), Expires: 06/09/2025Start: 06-09-2024 End: 07-60-1160OASYRZXUXDIU, FREETESTOSTERONE, FREE Lab Routine Hormone disorder Expected: 06/09/2024 (Approximate), Expires: 06/09/2025NOMS HealthcareComment on above:Expected: 06/09/2024 (Approximate), Expires: 06/09/2025Start: 06-09-2024 End: 18-39-2337Cdrfmtvzmxus, free, totalTestosterone, free, total Lab Routine Hormone disorder Expected: 06/09/2024 (Approximate), Expires:06/09/2025NOMS HealthcareComment on above:Expected: 06/09/2024 (Approximate), Expires: 06/09/2025Start: 06-09-2024 End: 05-62-3504NngcjzkphuynsZjksiwyojiokw Lab Routine Hormone disorder Expected: 06/09/2024, Expires: 06/09/2025NOMS HealthcareComment on above:Expected: 06/09/2024, Expires: 06/09/2025Start: 06-09-2024 End: 56-15-8530Zegwszxixuzjr AntibodyThyroglobulin Antibody Lab Routine Hormone disorder Expected: 06/09/2024, Expires: 06/09/2025NOMS HealthcareComment on above:Expected: 06/09/2024, Expires: 06/09/2025Start: 06-09-2024 End: 65-88-9854Jcfjcuq peroxidase antibodyThyroid peroxidase antibody Lab Routine Hormone disorder Expected: 06/09/2024 (Approximate), Expires: 06/09/2025 NOMS HealthcareComment on above:Expected: 06/09/2024 (Approximate), Expires: 06/09/2025Start: 06-09-2024 End: 93-00-6516Gskejbwegsl [Units/volume] in Serum or PlasmaNOMS Healthcare Comment on above:Expected: 06/09/2024 (Approximate), Expires: 06/09/2025 Expected: 06/09/2024, Expires: 06/09/2025Start: 06-09-2024 End: 17-35-0191Rrdudzvxw (T4) free [Mass/volume] in Serum or PlasmaT4, free Lab Routine Hormone disorder Expected: 06/09/2024 (Approximate), Expires: 06/09/2025 NOMS HealthcareComment on above:Expected: 06/09/2024 (Approximate), Expires: 06/09/2025Start: 06-09-2024 End: 23-11-0664Zbtlhuaujojhvfgr (T3) Free [Mass/volume] in Serum or PlasmaT3, free Lab Routine Hormone disorder Expected: 06/09/2024 (Approximate), Expires: 06/09/2025NONH HealthcareComment on above:Expected: 06/09/2024 (Approximate), Expires: 06/09/2025Start: 06-09-2024 End: 03-38-2715Veknbks D 1,25 dihydroxyVitamin D 1,25 dihydroxy Lab Routine Hormone disorder Expected: 06/09/2024 (Approximate), Expires: 06/09/2025NONH HealthcareComment on above:Expected: 06/09/2024 (Approximate), Expires: 06/09/2025Start: 06-09-2024 End: 60-74-0424Swbezvy encounter gtkvxkyen85/30/2024 10:10 AM EDT Office Visit [facility] [address] [place] [phone] Tommie Mccann, DO [address] [facility] [place] [address] ArrivedKECK [facility] USC OBComment on above:ArrivedStart: 05-26-2024 End: 68-96-2258Yulosak encounter xnlyiwipz54/16/2024 9:45 AM EDT Appointment [facility] Physical Therapy [address] [place], [place] [phone] Malaika Villanueva PT [facility] REPLACEMENTG[facility] Physical TherapyComment on above:HIP REPLACEMENT Start: 33-08-2760IFMRW-19 Vaccine ( season)COVID-19 Vaccine ( season)[facility]Start: 43-57-1290LLYKA-19 Vaccine ( season)COVID-19 Vaccine ( season)[facility] Start: 22-36-7747Bfznoopss vaccinationMOAB [facility]ION[facility] HealthcareStart: 77-42-8780Fpwbnuzwc vaccinationBON GOOD SAMARITAN HOSPITALStart: 04-09-2024 End: 26-31-9186Hvcexdp encounter ytsgyuoqk31/31/2024 8:00 AM EDT Office Visit [facility] [address] [place] [phone] [place] [address] [place] [phone] (Work) [facility] RheumatologyStart: 38-81-6371Kkfpahvhsm MonitoringDepression MonitoringJOSIAH B. THOMAS HOSPITALWowsai [facility]PITALStart: 14-31-4530Hkdtizgvw for malignant neoplasm of cervix Cervical cancer screenJOSIAH B. THOMAS HOSPITALWowsai [facility] HOSPITALComment on above:Postponed from 2006 (Not Indicated)Start: 01-09-2024 End: 25-71-1899Mdnmxrso SupportProMedica [facility] Hospital - ENTStart: 08-18-2023 Depression MonitoringDepression MonitoringJOSIAH B. THOMAS HOSPITALWowsai [facility]ITALStart: 89-73-4407Ersvcppeiy A1c mjzkszwlseeI9W test (Diabetic or Prediabetic)[facility] HOSPITALWowsai [facility]ITALStart: 43-60-2518Ztsyi panelLipidsBON [facility] E[address] [facility] Start: 16-49-1517Wrmgekuhmk MonitoringDepression MonitoringJOSIAH B. THOMAS HOSPITALWowsai [facility]ITALStart: 58-09-1860QFpQ/Tdap/Td vaccine (1 - Tdap)DTaP/Tdap/Td vaccine (1 - Tdap)JOSIA[facility] B. THOMAS HOSPITALWowsai [facility] HOSPITALComment on above:Postponed from 01/09/2004 (Patient Refused)Start: 10-81-6037Nfdlrzwvg C screeningHepatitis C screenBON ScheduleThing [facility]OSPITALComment on above:Postponed from 2003 (Patient Refused)Start: 41-74-4780EQC screeningHIV screenBON ScheduleThing [facility]OSPITALComment on above: Postponed from 01/09/2000 (Patient Refused)Start: 48-49-1336Thuqnwabh vaccinationFlu vaccine (#1)[facility] ScheduleThing [facility] Hospitalment on above:Postponed from 04/10/2022 (Patient Refused)Start: 86-94-0697TWKEK-19 Vaccine ()COVID-19 Vaccine (24 season)[facility]art: 98-41-9999Cpxnhzcec vaccinationINFLUENZA VACCINE (#1)[facility]: 79-47-8207Fbnnyoelg vaccinationFlu vaccine (#1)[facility] Hospitalart: 02-20-2023 End: 24-00-0209Qfpkvhv encounter tfbgpafow10/13/2023 Office Visit Primary Care Tiffany Tejeda APRN - 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 [address] [place], [place] [phone] (Work) [facility] TiffinStart: 03-41-1604KPMAU-19 Vaccine (3 - Booster for Pfizer series)COVID-19 Vaccine (3 - Booster for Pfizer series)[facility] HOSPITALComment on above:Postponed from 07/28/2021 (Not Indicated)Postponed from 04/22/2021 (Not Indicated)Start: 30-10-1385Vgnhvofjej A1c zgkdtchjtrlJ9K test (Diabetic or Prediabetic)[facility]: 81-16-3344Ushkonjsbr MonitoringDepression [facility] HospitalStart: 08-18-2022 End: 44-01-9979Hpwdkgi encounter fgxnujmds91/09/2022 Office Visit Primary Care Tiffany Tejeda APRN - [facility] [address], [place] [phone] (Work) [facility] TiffinStart: 07-05-2022 End: 44-98-0262Iawmzem encounter xgvtiviut39/26/2022 Appointment [facility] MRIStart: 63-13-8185Xzfocvynlf MonitoringDepression Monitoring [facility] HospitalStart: 68-23-0749UQyX/Tdap/Td vaccine (1 - Tdap)DTaP/Tdap/Td vaccine (1 - Tdap)[facility] HospitalComment on above:Postponed from 01/09/2004 (Patient Refused)Start: 84-70-8593Fkyzoblng C screeningHepatitis C screenWood County Hospitalcy Health Comment on above:Postponed from 1985 (Patient Refused)Start: 35-80-7818HYL screeningHIV screenMercy HealthComment on above:Postponed from 01/09/2000 (Patient Refused)Start: 65-24-2446Dnamxiocu vaccinationFlu vaccine (#1)[facility] HospitalComment on above:Postponed from 05/11/2021 (Patient Refused)Start: 57-84-0185Xwovywmhx for malignant neoplasm of cervixCervical cancer screenMercy HealthComment on above:Postponed from 2015 (Not Indicated)Postponed from 2006 (Not Indicated)Start: 65-88-2153Rnapepstu vaccinationINFLUENZA VACCINE (#1)[facility] Hospitaltart: 37-30-7992Gpyielphyz A1c zglwuprfnhbO9S test (Diabetic or Prediabetic)[facility] HospitalStart: 10-20-2021 End: 01-02-9068Jlapnzd encounter ootjfcajl78/10/2022 Office Visit Primary Care Tiffany Tejeda APRN - 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 [address], [place] [phone] (Work) [facility] TiffinStart: 07-09-7237XCYIF-19 Vaccine (3 - Booster for Pfizer series)COVID-19 Vaccine (3 - Booster for Pfizer series)[facility] HospitalStart: 06-24-2021 End: 77-23-6883Sdkkiib encounter ukchfppqv91/15/2021 Office Visit Primary Care Tiffany Tejeda APRN - 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 [address], [place] [phone] [facility] TiffinStart: 06-22-2021 End: 93-51-7199Fzatcdb encounter ppspangub28/13/2021 Office VisitAFL [facility] SCHD ONLYStart: 87-31-7682Qgyckvyze vaccine (1 of 2 - 2-dose childhood series) Varicella vaccine (1 of 2 - 2-dose childhood series)[facility] Work Phone: comment on above:Postponed from 1986 (Not Indicated)Start: 05-26-2021 End: 59-42-9455Fiumdzq encounter gotxlhhcd52/16/2021 Office Visit Primary Care Tiffany Tejeda APRN - 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 [address] [facility] [place] [place] [phone] [facility] HospitalStart: 99-64-2451Tzggdwcst vaccinationPromedica [facility] Hospital Work Phone: start: 03-23-2021 End: 35-50-6332Jwtcniu encounter ojzxejzbg23/14/2021 Office VisitAFL [facility] SCHD ONLYStart: 09-22-2020 End: 63-54-1869Dupwef Visit09/22/2020 Office VisitAFL [facility] SCHD ONLYStart: 37-30-1844Ikmjfklor vaccinationFlower Hospital: 09-18-2019 End: 78-35-9500Oeynyfkt Wkvngtq9309/18/2019 Clinical Support Otolaryngology Noelle Eller MA [facility] ENTStart: 17-13-5669Dezcrkfwr vaccinationFlu vaccine (#1)[facility]: 70-67-1726Amtviclrr vaccination givenSEQUENTIAL INFLUENZA VACCINE (#1)[facility] CenterStart: 2015 Screening for malignant neoplasm of cervixPromedica Toledo HospitalStart: 87-60-4718AVX Vaccine (1 - 3-dose SCDM series)HPV Vaccine (1 - 3-dose SCDM series)[facility] Cancer Centertart: 58-25-0833Pjjdjmgf cancer screenCervical cancer screenFlower Hospital: 65-14-3422Mrufsuwsw for malignant neoplasm of cervixPromedica [facility] Hospital Start: 79-06-3755HNaK,Tdap and Td Vaccines (1 - Tdap)DTaP,Tdap and Td Vaccines (1 - Tdap)[facility] SystemStart: 09-16-1165XSkN/Tdap/Td vaccine (1 - Tdap)DTaP/Tdap/Td vaccine (1 - Tdap)[facility]ITALStart: 01-09-2004 Hepatitis B vaccine (1 of 3 - 19+ 3-dose series)Hepatitis B vaccine (1 of 3 - 19+ 3-dose series)[facility]St[facility]: [id number] diphtheria, tetanus and acellular pertussis (DTaP) vaccinationTDAP (ADULT)[facility]: [phone] microalbumin profileDTaP,Tdap,Td Vaccine (1 - Tdap) [facility]: [phone] BMI Follow Up PlanAdult BMI Follow Up PlanSentara Albemarle Medical Centertart: [phone] ScreeningAnxiety Screening [facility]: [phone] ScreeningDepression Screening [facility]: [phone] C screeningB[facility] Start: 10-96-9246RTC screeningHIV ScreeningOhioHealth Arthur [facility] Centertart: 2003 Tetanus vaccinationTETANUSAGenesis Hospitaltart: [phone]-19 Vaccine (1)COVID-19 Vaccine (1)[facility] Phone: start: 63-68-3302SOP screenHIV screenFlower Hospital: 33-76-5088BWL screeningSt. Rita's Hospitaltart: 72-06-6144OFAMG-19 Vaccine (1)COVID-19 Vaccine (1)[facility] Phone: start: 00-96-3795Iawarumape MonitoringDepression MonitoringWythe County Community Hospitalart: 62-96-4103Zhsckkdlkf Screening Depression ScreeningSentara Albemarle Medical Centertart: 40-38-9912TJsE/Tdap/Td vaccine (1 - Tdap)DTaP/Tdap/Td vaccine (1 - Tdap)[facility]: 01-09-1988 History and physical examination, annual for [facility] Visit [facility]: 58-03-7164Zkeranehp vaccine (1 of 2 - 2-dose childhood series) Varicella vaccine (1 of 2 - 2-dose childhood series)[facility]: 54-03-1179LHGNO-19 VACCINE (#1)COVID-19 VACCINE (#1)[facility]: 42-17-8212Najhjuhbp B vaccinationHEP B VACCINE (1 of 3 - 3-dose series)[facility]: 75-81-6478Ysgrrvqji B vaccine (1 of 3 - 3-dose series) Hepatitis B vaccine (1 of 3 - 3-dose series)[facility]: 78-39-8635Cnylkdegf C antibody, confirmatory testHEPATITIS C VIRUS SCREENING [facility]: 94-64-4234Clokltazx C screeningSamaritan North Health Center Start: 05-81-1627Ppoopfeij for malignant neoplasm of cervixPAP SMEAROhioHealth Start: 27-50-1197Kgoxosb vaccinationSamaritan North Health Center End: 54-72-2844OJK Screen With ReflexANA Screen With Reflex Lab Routine Chronic pain syndrome 1 Occurrences starting 05/31/2021 until 05/31/2021[facility]: comment on above:1 Occurrences starting 05/31/2021 until 05/31/2021NA Screen With ReflexANA Screen With Reflex Lab Routine Chronic pain syndrome 05/31/2021 10:43 AM [employer] Phone: End: 09-36-5556Wngae glucose - POCTBlood glucose - POCT Point of Care Testing Routine One Time for 1 Occurrences starting 06/15/2020 until 06/15/2020[facility] [place]Comment on [place]:One Time for 1 Occurrences starting 06/15/2020 until 06/15/2020 End: 02-18-2021.trachomatis N.gonorrhoeae DNAC.trachomatis N.gonorrhoeae DNA Microbiology STAT One Time for 1 Occurrences starting 02/18/2021 until 02/18/2021[facility] Phone: comment on above:One Time for 1 Occurrences starting 02/18/2021 until 02/18/2021.trachomatis N.gonorrhoeae DNAC.trachomatis N.gonorrhoeae DNA Microbiology STAT 02/18/2021 7:48 PM [employer] Phone: cHLAMYDIA TRACHOMATIS (GENITO/STI)CHLAMYDIA TRACHOMATIS (GENITO/STI) Lab Routine Pelvic pain in female Ordered: 01/28/2025 [facility]OM[facility] HealthcareComment on above:Ordered: 01/28/2025 End: 92-14-6783YS Lumbar spine WO contrastCT LUMBAR SPINE WO IVCON Radiology Routine Spinal stenosis of lumbar region, unspecified whether neurogenic claudication present 1 Occurrences starting 12/15/2024 until 6[facility]Comment [facility]1 Occurrences starting 12/15/2024 until 01/14/2026 End: 16-43-3183NX Lumbar spine [facility]New[facility] Work Phone: Comment on above:1 Occurrences starting 12/26/2024 until 12/26/2024 End: 65-00-3661Forpjjybrbqueu vitamin b-12Vitamin B12 Lab Routine Chronic fatigue 1 Occurrences starting 05/31/2021 until 05/31/2021[facility] Work Phone: comment on above:1 Occurrences starting 05/31/2021 until 05/31/2021yanocobalamin vitamin b-12Vitamin B12 Lab Routine Chronic fatigue 05/31/2021 10:44 AM [employer] Work Phone: End: 52-98-0022Deldbfhqmjb Neutrophilic Ab, SCytoplasmic Neutrophilic Ab, S Lab Routine Nasal septum perforation Osteoarthritis, unspecified osteoarthritis type, unspecified site 1 Occurrences starting 05/14/2024 until 05/14/2025 [employer] Work Phone: comment on above:1 Occurrences starting 05/14/2024 until 05/14/2025EKG 12 LeadEKG 12 Lead ECG STAT 07/30/2019 8:36 AM [facility] InnovationsWood [facility] HospitalRubikloud, KYEKG 12 LeadEKG 12 Lead ECG Routine 10/15/2024 3:50 PM [facility] End: 38-78-6703FJM(NEURO/NI)EMG(NEURO/NI) EMG Routine Bilateral carpal tunnel syndrome 1 Occurrences starting 03/04/2025 until 6[facility] Comment on above:1 Occurrences starting 03/04/2025 until 03/04/2026 End: 34-88-1279Cjti T4 [Mass/Vol]T4, Free Lab STAT One Time for 1 Occurrences starting 07/30/2019 until 07/30/2019[facility] HospitalRubikloud, [place]Comment on above:One Time for 1 Occurrences starting 07/30/2019 until 07/30/2019Free T4 [Mass/Vol]T4, Free Lab STAT 07/30/2019 8:15 AM [facility] [place] End: 90-28-2030TKY-B27 [facility] [employer] Work Phone: Comment on above:Once for 1 Occurrences starting 06/21/2022 until 06/21/2022Lupus AnticoagulantLupus Anticoagulant Lab Routine 08/22/2019 4:31 PM [employer] Phone: End: 74-56-5922CABK DNA Probe, NasalMRSA DNA Probe, Nasal Microbiology STAT Once for 1 Occurrences starting 04/18/2021 until 04/18/2021[facility] Phone: comment on above:Once for 1 Occurrences starting 04/18/2021 until 04/18/2021MRSA DNA Probe, NasalMRSA DNA Probe, Nasal Microbiology STAT 04/18/2021 9:44 AM [employer] Work Phone: End: 42-71-4321GLBI DNA Probe, NasalMerSplitGigs Work Phone: Comment on above:Once for 1 Occurrences starting 10/10/2021 until 10/10/2021 End: 36-66-8142Wgpqrcqbhfbmdps ABMyeloperoxidase AB Lab Routine Nasal septum perforation Osteoarthritis, unspecified osteoarthritis type, unspecified site 1 Occurrences starting 05/14/2024 until 05/14/2025[facility] HospitalYeelion SystemComment on above:1 Occurrences starting 05/14/2024 until 05/14/2025Myeloperoxidase Ab [Units/volume] in SerumMyeloperoxidase AB Lab Routine Nasal septum perforation Osteoarthritis, unspecified osteoarthritis type, unspecified site 05/14/2024 4:[address] [facility] HospitalNeisseria gonorrhoeae DNA [Presence] in Unspecified specimen by GARO with probe detectionNeisseria gonorrhea DNA probe, direct Lab Routine Pelvic pain in female Ordered: 01/28/2025[facility] Comment on above:Ordered: 01/28/2025Neutrophil cytoplasmic Ab panel - Serum by ImmunofluorescenceCytoplasmic Neutrophilic Ab, S Lab Routine Nasal septum perforation Osteoarthritis, unspecified osteoarthritis type, unspecified site 05/14/2024 4:57 PM [facility] End: 75-65-7429Doovpfc Ab [Titer] in Serum by ImmunofluorescenceANA Lab Routine Once for 1 Occurrences starting 08/22/2019 until 08/22/2019[facility] Phone: comment on above:Once for 1 Occurrences starting 08/22/2019 until 08/22/2019Nuclear Ab [Titer] in Serum by ImmunofluorescenceANA Lab Routine 08/22/2019 4:31 PM [facility] CENTERDentalFran [facility] Phone: End: 08-23-4269Txyppib Ab [Titer] in Serum by ImmunofluorescenceBON [employer]op[employer] Phone: comment on above:Once for 1 Occurrences starting 06/21/2022 until 06/21/2022xygen therapy [Minimum Data Set]Initiate Oxygen Therapy Protocol Respiratory Care Routine As Needed until discontinued starting 08/24/2023ON [facility] CENTERTranslationExchangeComsouthwest regional rehabilitation center on above:As Needed until discontinued starting 08/24/2023 End: 15-26-5233Pugjixsii, urinePregnancy, urine Lab Routine One Time for 1 Occurrences starting 06/15/2020 until 06/15/2020[facility] HospitalSplitGigsCOOPER [facility], [place]Comment on above:One Time for 1 Occurrences starting 06/15/2020 until 06/15/2020Proteinase 3 Ab [Units/volume] in SerumProteinase 3 AB PR3 Lab Routine Nasal septum perforation Osteoarthritis, unspecified osteoarthritistype, unspecified site 05/14/2024 4:57 PM [employer] End: 74-57-0087Ygitixwizy 3 AB CB8Wjxxlpsgav 3 AB PR3 Lab Routine Nasal septum perforation Osteoarthritis, unspecified osteoarthritistype, unspecified site 1 Occurrences starting 05/14/2024 until 05/14/2025[facility] Mindie SystemComment on above:1 Occurrences starting 05/14/2024 until 05/14/2025SURESWAB(R) ADVANCED VAGINITIS PLUS, TMASURESWAB(R) ADVANCED VAGINITIS PLUS, TMA Pathology and Cytology Routine Pelvic pain in female Ordered: 01/28/2025[employer] Work Phone: comjqkt on above:Ordered: 01/28/2025THIN PREP TIS PAP AND HR HPV DNATHIN PREP TIS PAP AND HR HPV DNA Pathology and Cytology Routine Well woman exam with routine gynecological exam Ordered: 02/19/2025[facility] CenterComment on above:Ordered: 02/19/2025 End: 76-03-4559Dtrkkpivk (T4) free [Mass/volume] in Serum or PlasmaInova Health SystemComment on above:One Time for 1 Occurrences starting 12/03/2024 until 12/03/2024 End: 49-52-5426GV Hip - right 2 ViewsBon [facility] Work Phone: Comment on above:1 Occurrences starting 06/04/2025 until 06/04/2025 End: 91-54-8134AR Lumbar spine Views W flexion and W extensionXR LUMBAR MOTION 4V AP/LAT/ FLEX/EXT Radiology Routine Status post lumbar spinal fusion 1 Occurrences starting 12/15/2024 until 01/14/2026[facility] Work Phone: Comment on above:1 Occurrences starting 12/15/2024 until 01/14/2026 End: 94-92-2751CR Lumbar spine Views W flexion and W extensionXR LUMBAR MOTION 4V AP/LAT/ FLEX/EXT Radiology Routine Chronic pain syndrome Failed back syndrome Mechanical back pain 1 Occurrences starting 03/04/2025 until 04/03/2026 [facility] Work Phone: Comment on above:1 Occurrences starting 03/04/2025 until 04/03/2026 End: 57-46-2358PY Pelvis and Hip - right AP and Lateral frogXR HIP GENERAL 3V PELV/AP/LAT RIGHT Radiology Routine Status post lumbar spinal fusion Unilateral groin pain Labral tear of hip, degenerative Pain in right hip 1 Occurrences starting 12/15/2024 until01/14/2026[facility] HospitalComment on above:1 Occurrences starting 12/15/2024 until 01/14/2026 End: 59-57-4251XC Pelvis and Hip - right AP and Lateral frogXR HIP GENERAL 3V PELV/AP/LAT RIGHT Radiology Routine Pain in right hip 1 Occurrences starting 01/01/2025 until 01/31/2026[facility] Work Phone: Comment on above:1 Occurrences starting 01/01/2025 until 01/31/2026XR Pelvis and Hip - right AP and Lateral frogXR HIP GENERAL 3V PELV/AP/LAT RIGHT Radiology Routine Pain in right hip 01/05/2025 3:14 PM EDT [facility] Immunizations Immunization DateImmunizationNotesCare QbbedurmGubyopnr10-91-4394xymdnvohy virus vaccine, unspecified formulationBrett Might JAVA SCAL[employer] DEVELOPER - 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 Work Phone: [facility] Work Phone: [phone]y, injectable, quadrivalent, preservative freeBrett Might JAVA SCAL[employer] DEVELOPER - 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 Work Phone: [facility] Work Phone: [phone]X-RmB-0 (COVID-19) mRNA BNT-162b2 juAxilicaalycia Streemneosho memorial regional medical centerClink [phone]-WfywdKindred Hospital DaytonueComment on above: Result Comment: 2023-05-18: GTTRE18-18-3769KZPD-PzQ-1 (COVID-19) mRNA BNT-162b2 gaAxilicaencompass health valley [facility] Streemneosho memorial regional medical centerClink [phone]-CsbujShelby Memorial Hospital [employer] Baby[employer] LLCevueComment on above: Result Comment: 2023-05-18: PKCBU95-48-4859Ywuusahha, injectable, Madin Chetek Canine Kidney, preservative free, quadrivalentBrett Might JAVA SCAL[employer] DEVELOPER - 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 Work Phone: [facility] Work Phone: [phone]y virus vaccine, unspecified formulationYas Serrano MD Work Phone: [phone]-QijvvKindred Hospital Daytonue11-04-2019 influenza virus vaccine, unspecified formulationMalaika Lan 102-7024Xpailn-EpuiqKindred Hospital Daytonue11-04-2019 influenza, injectable, quadrivalent, contains preservativeBrett Might JAVA SCAL[employer] DEVELOPER - 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 Work Phone: mWilson Street HospitalJbuqfg44-53-7977atlrjojrb, seasonal, injectable Tiffany Might JAVA SCALA DEVELOPER - 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 Work Phone: [facility] Work Phone: Payers DatePayer CategoryPayerPolicy [id number] Managed Care - POSAETNA Member Subscriber Plan / Payer (Effective 2023-Present) Name: Ashlee Jalloh Relation to Subscriber: Self Name: Ashlee Jalloh Payer ID: [id number] (NAIC) Type: Not on file Address: [address] [id number] Care HMO (unspecified)AETNA AENA [id number] 11/08/2023-Present [id number] [place] [phone] HMO1.2.840.153885.1.13.693.2.7.3.449479. Private Health InsuranceAETNA AETNA POS [id number] 11/08/2023-Present [id number] [place] [phone] 1.2.840.606592.1.13.424.2.7.3.106370.40730-71-5649Thpvhyp Health Insurance [id number] 1.2.840.865122.1.13.239.2.7.3.944198.22161-06-6838Hvfkrlz835-99-5021 1.2.840.433792.1.13.239.2.7.3.1739[id number] 1.2.840.968398.1.13.239.2.7.3.477409.31502-01-2023Medicaid 1.2.840.830173.1.13.172.2.7.3.959967.61229-12-3407Xnhzgip37-14-9015Tjyjbjv Health [id number]xxxxxxxxxx 1.2.840.443332.1.13.385.2.7.3.4708[id number] [id number] 2.16.840.1.438240.3.579.2.754 [id number] 2.16840.1.363005.3.579.2.22396-57-2920Bzhfmem7067033 2.16840.1.954822.3.579.2.62269-01-7953Miqatcx731271473 2.16840.1.835653.3.579.2.61820-44-3229Cpuxyvn51265776 2.16840.1.917936.3.579.2.80824-80-3984Sftijjx6960355 2.16840.1.595200.3.579.2.33967-66-7271Tcmyfwd4439361 2.16840.1.763739.3.579.2.61719-08-1189Jcpdtmb7881585 2.16840.1.381623.3.579.2.92765-00-7576Udjrxag3174921 2.16840.1.136863.3.579.2.74592-53-0662Uhyaeud1746821 2.16840.1.949672.3.579.2.21869-41-6948Hnzcsai5192507 2.16840.1.003811.3.579.2.68899-89-7011Uynjstr3077014 2.16.840.1.533511.3.579.2.04602-33-6536Dagsiox3879889 2.16.840.1.952911.3.579.2.19847-71-2006Iamxchm940264207 2.16.840.1.034430.3.579.2.11154-49-1797Xhbyrfk478066753 2.16.840.1.222340.3.579.2.20452-99-0121Eytdscc755543554 2.16.840.1.999533.3.579.2.52282-85-1325Jpgqodj123040907 2.16.840.1.530206.3.579.2.64344-62-1544Iwqowuh398725992 2.16.840.1.380024.3.579.2.37045-68-7748Dbntilz016374476 2.16.840.1.861658.3.579.2.35234-99-1209Bkrmiqx303005022 2.16.840.1.990440.3.579.2.57525-92-7381Qmlnsjv036875280 2.16.840.1.795894.3.579.2.80813-00-3598Jpsapcj019986812 2.16.840.1.162987.3.579.2.23830-02-7064Hwiotqv564172227 2.16.840.1.443474.3.579.2.76968-73-2648Pyljuhf465113010 2.16.840.1.023896.3.579.2.07030-14-3210Wagszfo013876827 2.16.840.1.734577.3.579.2.81605-91-5913Jbzesph390491539 2.16.840.1.194869.3.579.2.1006-97-7572Adrhfgh694707229 2.16.840.1.043129.3.579.2.318122-29-6135Bqiozku52797166 2.16.840.1.768198.3.579.2.682815-89-6219Vbzyddj76211895 2.16.840.1.384861.3.579.2.205895-26-7936Ssvxkhu91417884 2.16.840.1.336053.3.579.2.546959-37-9982Pwhyjas69153350 2.16.840.1.318518.3.579.2.702075-25-8943Icdoltv13727753 2.16.840.1.770850.3.579.2.781849-97-8295Mbvjwgt18812900 2.16840.1.293861.3.579.2.399467-23-6979Mheyfsa93739081 2.16840.1.494133.3.579.2.973073-20-4753Bboxnbo92841641 2.16.840.1.608821.3.579.2.857571-50-1905Uehjdln68088619 2.16.840.1.798576.3.579.2.37025-75-9085Cjknvtv71275550 2.16840.1.905736.3.579.2.53307-61-2943Odhufdu65746268 2.16.840.1.082066.3.579.2.98564-64-3197Sfxotzs87149825 2.16.840.1.428857.3.579.2.98183-23-4976Kztvihc67131041 2.16.840.1.804264.3.579.2.66205-53-8780Shhnypr27046438 2.16840.1.673289.3.579.2.84220-04-0527Tlbzbzy16327961 2.16.840.1.123067.3.579.2.32190-80-6682Rmyncll45055973 2.16.840.1.794788.3.579.2.69180-90-6173Tlfbpxr44025855 2.16.840.1.423621.3.579.2.57004-54-1289Lmkjxtd83530522 2.16.840.1.164751.3.579.2.33282-91-5992Iwaqddc78166117 2.16.840.1.377626.3.579.2.67548-51-6706Yefckma41506126 2.16.840.1.842772.3.579.2.61136-32-2870Vultxbj90652319 2.16.840.1.232206.3.579.2.55221-44-7744Wjwthwl46957585 2.16.840.1.407858.3.579.2.84548-04-6373Uveqfim62508952 2.16.840.1.176327.3.579.2.95950-54-0084Bhurzuv46448185 2.16.840.1.749405.3.579.2.40701-33-0587Yynpgwn07371116 2.16.840.1.060504.3.579.2.73155-67-5799Sgfdgpz81171148 2.16.840.1.875619.3.579.2.64122-35-9031Tscisax48812528 2.16.840.1.614873.3.579.2.77264-25-6911Tubjiic72712157 2.16.840.1.373706.3.579.2.86697-97-9349Gflcdsj24776593 2.16.840.1.529616.3.579.2.83681-95-3402Xogoutm79722119 2.16.840.1.705730.3.579.2.34614-20-1985Bdqgcef09872024 2.16.840.1.053324.3.579.2.79100-24-0399Ulwebkn28736701 2.16.840.1.854906.3.579.2.87298-88-4789Gwbsmkl25794959 2.16.840.1.113466.3.579.2.28491-91-6466Kubrmuy56273246 2.16.840.1.527071.3.579.2.22785-24-7587Eykvjdp04889711 2.16.840.1.085404.3.579.2.50626-46-5188Ikrqrzz61264526 2.16.840.1.867353.3.579.2.75876-91-6512Hbvoffy54117549 2.16.840.1.951555.3.579.2.33530-82-1824Auuluoe57080280 2.16.840.1.137535.3.579.2.095711-13-1189Rmjqsev0754716 2.16.840.1.852781.3.579.2.452371-26-5642Ulsmgzj5311292 2.16.840.1.716223.3.579.2.861448-40-5358Qvgzooy7420730 2.16.840.1.765091.3.579.2.718443-04-3790Gewalpa7247638 2.16.840.1.623048.3.579.2.168319-15-4019Potckhw72845561 2.16.840.1.181129.3.579.2.87902-65-5735Ttrqzcy79696632 2.16.840.1.244843.3.579.2.55358-82-2527Afwdlwp47883458 2.16.840.1.040298.3.579.2.96038-83-4248Tadqiru49400816 2.16.840.1.188387.3.579.2.98257-10-0238Somgfld18730915 2.16.840.1.031546.3.579.2.18647-23-7483Hpexwsv90399990 2.16.840.1.423400.3.579.2.79140-18-3055Qicvyvf13691990 2.16.840.1.149616.3.579.2.38866-91-3897Gdspiti45161969 2.16.840.1.764753.3.579.2.17951-05-7630Wwemwwu47117189 2.16.840.1.659953.3.579.2.70339-16-1751Tzuqcqs95109602 2.16.840.1.479722.3.579.2.65546-75-0869Nyqpkhu03191954 2.16.840.1.944800.3.579.2.06424-66-4700Pweysry37497877 2.16.840.1.803460.3.579.2.33011-43-8589Ikztbrr73261230 2.16.840.1.297948.3.579.2.66538-90-5438Amegxxu93730070 2.16.840.1.272761.3.579.2.08695-23-1974Nyffntd47407646 2.16.840.1.769114.3.579.2.38017-32-1534Owgkzpa89073762 2.16.840.1.538354.3.579.2.07966-44-0880Gudvrvx03433771 2.16.840.1.042749.3.579.2.59221-90-2807Jkkncuc75934319 2.16.840.1.477609.3.579.2.42543-04-3046Zpjagcn13176399 2.16.840.1.686217.3.579.2.00240-14-6929Jgrfdze68956314 2.16.840.1.473647.3.579.2.18838-81-4164Mgktvaw79723871 2.16.840.1.921581.3.579.2.49779-66-2298Jocgwjn17182247 2.16.840.1.617585.3.579.2.04613-32-4551Tpndplg55337458 2.16.840.1.845353.3.579.2.45204-50-4563Mxrwlzu47397841 2.16.840.1.676795.3.579.2.20866-61-6593Fetdvse36111077 2.16.840.1.858561.3.579.2.37005-15-1474Nfbjdog51884298 2.16.840.1.095232.3.579.2.29692-95-7569Wxntbuc68271077 2.16.840.1.681801.3.579.2.79759-46-9338Mdzinej66780756 2.16.840.1.221778.3.579.2.85878-41-9098Qehkbre89828792 2.16.840.1.043369.3.579.2.62328-83-3892Mtmofwj99537191 2.16.840.1.250006.3.579.2.16735-82-0659Jwmugqh34714822 2.16.840.1.944820.3.579.2.42901-67-8181Smuqlku60401587 2.16.840.1.374906.3.579.2.99244-97-9826Mtqbtji56727612 2.16.840.1.142145.3.579.2.93697-33-5592Dqiicsd88490522 2.16.840.1.624222.3.579.2.79365-69-1224Fffyige49273719283 1.2.840.721337.1.13.239.2.7.3.312896.315Self-pay Social History DateTypeDetailFacilityStart: 08-31-2019 End: 35-49-5651Tjxckrg smoking status NHISNever smokerPromedica Toledo HospitalStart: 08-31-2019 End: 66-13-2977Pyivkak intakeLifetime non-drinker (finding)[facility]Start: 08[facility]2019 End: 85-51-3762Lhtitpf SDOH Alcohol Pvbesedzi2WsvfPdqhxdPhylt: 78-81-1542Wkw Assigned At BirthNot on [place]: [place] End: 56-86-3106Guqzmdw intakeCurrent non-drinker of alcohol (finding[place]Exposure to SARS-CoV-2 (event)[place] assessMid[place], [place] Start: 01-29-2020 End: 75-74-8735Bkjhuom use and exposureNever usedMid[place], [place]Start: 06-15-2022 End: 1611Yswshkgi to SARS-CoV-2 (event)Not sureMid[place], [place]Start: 04-11-2022 End: 19-84-8651Rnfqapg intakeEx-drinker (finding)[facility] Mindie SystemStart: 77-94-1126Yadnymh SDOH Ohgwtivuu3TTFCENTRA [facility] [employer] Work Phone: start: 72-53-8712Lbq Assigned At BirthFemalEverett HospitalCuriosityville [facility]ITALStart: 38-08-8034Ebkcmsy smoking statusNeverTrinity Health Systemtart: 08-24-2023 End: 22-42-8871Ojh Assigned At BirthFeSt. Charles Hospitaltart: 08-24-2023 End: 36-23-9157Kdsgmmx of Social functionCARILION FRANKLIN MEMORIAL HOSPITALHas the electric, gas, oil, or water company threatened to shut off services in your home in past 12MoNoBON GOOD SAMARITAN HOSPITALHow often to you have a drink containing alcohol?NeverCARILION FRANKLIN MEMORIAL HOSPITAL(I/We) worried whether (my/our) food would run out before (I/we) got money to buy more.Never trueCARILION FRANKLIN MEMORIAL HOSPITALStart: 85-13-8039Bbrott identityIdentifies as female gender (finding)[facility] HOSPITALStart: 20-34-9384Ztgrjf orientationHeterosexual (finding)[facility] HOSPITALStart: 10-20-2012 End: 62-95-6712SmaFvkbaz (finding)[facility] SystemNEGATED: Highlighted rowStart: NINFHistory of tobacco usePassive smokerProUniversity [facility]als [facility] System Medical Equipment Procedure CodeEquipment CodeEquipment Original TextEquipment IdentifierDates Allograft Si Intra Art Fus 11mm - [id number]: 08-24-2023 Allograft Si Intra Art Fus 11mm - [id number]: 83-25-3872R-Fix Knotless All-Suture Water View 1.8mm W/1 Ultrabraid [id number]: 02-23-2025 Q-Fix Knotless All-Suture Water View 1.8mm W/1 Ultrabraid [id number]: 40-59-9362W-Fix Knotless All-Suture Water View 1.8mm W/1 Ultrabraid [id number] Start: 02-23-2025 Functional Status MxraZmddyloiyvKnucnsYeutkyqe70-19-4930Zqixxmfkjt StatusNoWood [facility] Hospital Clinical Notes 02-18-2021 to 07-22-2025 Note Date & AwubYwmvHiwjvcol32-99-8533 NoteHNO ID: [id number] Author: HEATH BEST RT(R) Service: Radiology Author Type: Technologist Type: Progress Notes Filed: 07/22/2025 10:49 Note Text: Radiology Service Progress Note PATIENT NAME: Ashlee Jalloh DATE OF SERVICE: July 22, 2025 TIME: [...] PATIENT PRESENTS WITH AN IMPLANTABLE OR ATTACHED INTERNAL MEDICINE PHYSICIAN ASSISTANT: No RADIOLOGY DEPARTMENT: General X-ray: Exam(s) Completed: Spine X-Ray(s): Lumbar AP / LAT / L5-S1 / FLEX-EXT PERIPHERAL IV DATA: Not applicable SIGNED BY: RT Judy(R) July 22, 2025 10:49 [facility]11-12-2025 NoteHNO ID: [id number] Author: KANDACE CARRANZA MD Service: ? Author Type: Physician Type: Progress Notes Filed: 07/22/2025 10:14 Note Text: SPINE SURGERY NEW PATIENT PCP: No primary care provider on file. REFERRING PROVIDER: No referring provider defined for this encounter. SUBJECTIVE Ashlee Jalloh is a 40-year-old female with chronic back pain, fibromyalgia, and carpal tunnel syndrome presenting for evaluation of persistent and worsening back pain. She is accompanied by a control panel tester who provides additional history. Ashlee reports chronic back pain that began after her first back surgery in 2020. She describes the pain as constant and sharp, with episodes of excruciating pain radiating to her legs and feet, accompanied by numbness. She reports that the pain is aggravated by bending and sneezing while lying down. She also reports difficulty sleeping due to discomfort in any position. She underwent a microdiscectomy for a herniated disc, which initially provided relief. However, she re-herniated the disc about 1.5 months later and subsequently underwent a fusion surgery in 11/2021. Since the fusion, her pain has worsened in [...] tunnel syndrome and is interested in exploring non-surgical treatment options, such as Botox injections, which have been helpful for her father. She recently had an EMG of her arms for carpal tunnel syndrome. She has a history of medication intolerance, including an episode of syncope after taking Flexeril. 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 Tests AND Prior Procedures: - Lumbar fusion (L4-5): Solid [...] (flexion/extension) to assess for instability or stenosis above fusion. - Order MRI for further evaluation. - Order bilateral SI joint injections to assess for SI-mediated pain. - Discussed spinal cord stimulator trial if imaging and injections do not provide relief. - Educate (more content not included)...[facility] [facility] NoteHNO ID: [id number] Author: RISHABH HUANG MD Service: ? Author Type: Physician Type: Progress Notes Filed: 07/13/2025 15:44 Note Text: [facility] Management Department Follow-Up Evaluation Chief Complaint: Patient presents with: Established Patient The patient is accompanied by spouse. SUBJECTIVE Ashlee Jalloh, is a 40 year old with No past medical history on file. Chief Complaint: Patient presents with: Established Patient . Intensity of pain: 7 on a scale of 0-10. Duration of pain: 3 Weeks ago. The pain is located Back Pain Description: Continuous Aching, Pulsating, Spasm Alleviating Factors: Medication, Reposition, Relaxation Ashlee Jalloh reports that her pain is worse. Her function is worse. Pain score today: 7/10 Past and current medications: lyrica Information copied and pasted from last visit to Pain Management Yessica Glaser 04/06/25 HPI: Recording using ambient WaysGo software for draft documentation of the visit was discussed with the patient/authorized inside outside sales representative; all questions welcomed and answered. Patient/authorized inside outside sales representative agreed to proceed Ashlee Jalloh is [...] on 02/23/25 for 10 tablets for 3 dayspost-hip surgery. Ashlee reports that her hip pain [...] bowel or bladder control, or dizziness. ASSESSMENT AND PLAN: # Fibromyalgia (M79.7) Currently on Lyrica [...] (Z98.890) Underwent arthroscopic labral tear repair, femoroplasty, (more content not included)...[facility]10-24-2025 Hospital Discharge instructions * Discharge Instructions* Deniz Corcoran II, PA-C - 07/03/2025 4:22 PM EDT You will receive a survey in the next couple days regarding your experience in the ED. We are constantly striving to improve our care and welcome your feedback. Thank you very much for your time. The emergency department evaluation is not a complete evaluation, you're always required to followup with another doctor within the next few days to assess how your symptoms are progressing and to ensure that there is no indication for further testing or returning to the hospital. Even with treatment sometimes your condition worsens and you will need to return to the hospital. If you are having pain and it is getting worse you should return to the hospital. If you have any new symptoms that were not addressed at your original visit you should return to the hospital. If you're having difficulty breathing but it is getting worse you should return to the hospital. If you're vomiting and cannottake the medicines that were prescribed you should return to the hospital. If you're having persistent fevers you should return to the hospital. If you have any question of whether or not your symptoms are serious enough or for any other urgent concerns- always return to the hospital for repeat evaluation. * Attachments The following attachments cannot be sent through Care Everywhere. * Back Pain (Dominican) * Sciatica (Dominican) documented in [facility]Bon [facility] Discharge instructions* Discharge Instructions* Deniz Corcoran II, PA-C - 06/23/2025 5:13 PM EDT You will receive a survey in the next couple days regarding your experience in the ED. We are constantly striving to improve our care and welcome your feedback. Thank you very much for your time. The emergency department evaluation is not a complete evaluation, you're always required to followup with another doctor within the next few days to assess how your symptoms are progressing and to ensure that there is no indication for further testing or returning to the hospital. Even with treatment sometimes your condition worsens and you will need to return to the hospital. If you are having pain and it is getting worse you should return to the hospital. If you have any new symptoms that were not addressed at your original visit you should return to the hospital. If you're having difficulty breathing but it is getting worse you should return to the hospital. If you're vomiting and cannottake the medicines that were prescribed you should return to the hospital. If you're having persistent fevers you should return to the hospital. If you have any question of whether or not your symptoms are serious enough or for any other urgent concerns- always return to the hospital for repeat evaluation. * Attachments The following attachments cannot be sent through Care Everywhere. * Back Pain (Dominican) documented in this encounterBon [facility] [place]25 NoteHNO ID: [id number] Author: DENIZ ENCARNACION MD Service: ? Author Type: Physician Type: Progress Notes Filed: 05/19/2025 11:03 Note Text: DEPARTMENT OF ORTHOPAEDICS Chief Complaint: Right hip pain Patient returns for follow up of right hip pain. Last seen 04-10-25. Patient reports no interim trauma. Reports about 3 weeks ago she started to experience an increase in right hip pain accompanied by mechanical symptoms. She states she has been graduated from formal PT. PHYSICAL EXAM: There were no vitals taken for this visit. General: Appears stated age, well built, in no apparent distress. Psychiatric: Mood and affect appropriate. Alert and oriented x 3 without evidence of abnormal respiratory effort. Musculoskeletal Exam: Gait normal, Posture: erect and normal. Exam: Right Left Single Leg Trendelenburg Negative Negative Hip flexion 100 100 IR 10 10 ER 40 50 Anterior impingement positive negative Dynamic labral stress negative negative DOROTHY positive (LOM) negative Posterior Impingement negative negative SRIDHAR negative negative Strength Supine HF 5/5 5/5 Upright HF 5/5 5/5 Adduction 5/5 5/5 Abduction 5/5 5/5 Tenderness with Palpation: Right Left Greater Troch Negative Negative Gluteus Medius Negative Negative Piriformis Negative Negative IMPRESSION: (S70.022N) Acetabular labrum tear, right, subsequent encounter (primary encounter diagnosis) PLAN: 1. Medication: Mobic 15mg PO q Day with meals x 3 weeks then PRN 2. Test(s)/Imaging/Referral(s): None. 3. Intervention: Continue conservative treatment. Discussed the role of oral NSAID's and working on her Dorothy ROM which was very tight today. Discussed that the anticipation of her symptoms improving once this motion improves as well. Discussed the role for a hip injection in about 6 weeks if she is not turning the corner. RTW letter provided with her returning next Sunday with restrictions - max 10 pound lifting, avoid bending, squatting. Patient is on board with the plan and all questions were answered. They will let us know if there are any issues in the interim. 4. Follow-up: Return in about 3 months (around 08/18/2025). Scribe Attestation: By signing my name below, I, RODNEY Rodríguez, attest that this documentation has been prepared under the direction and in the presence of Deniz Encarnacion M.D. Electronically Signed:RODNEY Rodríguez, May 19, 2025 10:57 AM I agree with the Chief Complaint, ROS, and Past Histories independently gathered by the clinical program support assistant and the remaining scribed note accurately describes my personal service to the patient. Deniz Encarnacion [facility]09-09-2025 History of Present illness Narrative* Deniz Encarnacion MD - 05/19/2025 10:57 AM EDT Images from the original note were not included. DEPARTMENT OF ORTHOPAEDICS Chief Complaint: Right hip pain Patient returns for follow up of right hip pain. Last seen 04-10-25. Patient reports no interim trauma. Reports about 3 weeks ago she started to experience an increase in right hip pain accompanied by mechanical symptoms. She states she has been graduated from formal PT. PHYSICAL EXAM: There were no vitals taken for this visit. General: Appears stated age, well built, in no apparent distress. Psychiatric: Mood and affect appropriate. Alert and oriented x 3 without evidence of abnormal respiratory effort. Musculoskeletal Exam: Gait normal, Posture: erect and normal. Exam: Right Left Single Leg Trendelenburg Negative Negative Hip flexion 100 100 IR 10 10 ER 40 50 Anterior impingement positive negative Dynamic labral stress negative negative DOROTHY positive (LOM) negative Posterior Impingement negative negative SRIDHAR negative negative Strength Supine HF 5/5 5/5 Upright HF 5/5 5/5 Adduction 5/5 5/5 Abduction 5/5 5/5 Tenderness with Palpation: Right Left Greater Troch Negative Negative Gluteus Medius Negative Negative Piriformis Negative Negative IMPRESSION: (S73.160D) Acetabular labrum tear, right, subsequent encounter (primary encounter diagnosis) PLAN: 1. Medication: Mobic 15mg PO q Day with meals x 3 weeks then PRN 2. Test(s)/Imaging/Referral(s): None. 3. Intervention: Continue conservative treatment. Discussed the role of oral NSAID's and working onher Kamara ROM which was very tight today. Discussed that the anticipation of her symptoms improvingonce this motion improves as well. Discussed the role for a hip injection in about 6 weeks if she is not turning the corner. RTW letter provided with her returning next Sunday with restrictions - max10 pound lifting, avoid bending, squatting. Patient is on board with the plan and all questions were answered. They will let us know if there are any issues in the interim. 4. Follow-up: Return in about 3 months (around 08/18/2025). Scribe Attestation: By signing my name below, I, RODNEY Rodríguez, attest that this documentation has been preparedunder the direction and in the presence of Deniz Encarnacion M.D. Electronically Signed:RODNEY Rodríguez, May 19, 2025 10:57 AM I agree with the Chief Complaint, ROS, and Past Histories independently gathered by the clinical program support assistant and the remaining scribed note accurately describes my personal service to the patient. Deniz Encarnacion MD documented in [facility] encounterMem[facility]08-[facility] History of Present illness Narrative* Katty Gonzalez - 04/16/2025 2:00 PM EDT Physical Therapy [facility] Inpatient/Observation/Outpatient Rehabilitation Date: 04/16/2025 Patient Name: Ashlee [...] does not require skilled services due to: Therapist/Rotary Peel Oven Tender will attempt to see this patient, at our earliest opportunity. Katty Gonzalez Date: 04/16/2025 Cosigned by Sergio Barkley at 04/16/2025 2:09 PM EDT documented in this encounterBon [facility] [place] NotePatient Education ENT Otitis Media, Adult Otitis media [...] tube. This tube connects the middle ear tothe back of the nose. It normally allows [...] Follow these instructions at home: ??? Take [id number] and prescription medicines only as told by [...] provider. Document Revised: 12/05/2021 Document Reviewed: 12/05/2021 Elsevier Patient Education ? 2023 [employer] 04-13-2025 History of Present illness Narrative* Sergio Barkley - 04/13/2025 2:30 PM EDT [facility] Outpatient Physical Therapy Daily Note Patient: Ashlee Jalloh : 1985 [facility] #: [id number] Referring Physician: Rishabh Huang MD Date: 04/13/2025 Diagnosis: M24.259 Treatment Diagnosis: R hip labral repair PT Insurance Information: [facility] medicaid Total # of Visits [...] to improve function with ADL's. - met Residential Goals Time Frame for Printed Forms Proofreader Goals : 6 weeks Residential Goal 1: Pt will independant and compliant with HEP to maintain functional gains made at therapy. - progressing Printed Forms Proofreader Goal 2: Pt will report 2/10 or less R hip pain on average to facilitate completion of ADL's. - progressing 3/10 average Residential Goal 3: Pt to improve R hip strength to 4+/5 grossly for ease with transfers and prolonged ambulation. - progressing 4-/5 grossly Residential Goal 4: Pt to improve R hip flexion/abd to be equal to L for improved gait mechanics. - progressing hip flexion 90* abd: 23* Residential Goal 5: Pt to report 70% improvement in symptoms to display increased QOL. - MET 85% Minutes Tracking: Time In: 1430 Time Out: 1511 Minutes: 41 Timed Code Treatment Minutes: 40 Minutes Sergio Alcantar Date: 04/13/2025 Cosigned by Malaika Hernández, PT at 04/13/2025 3:18 PM EDT documented in this encounterIn[facility]08-01-2025 Instructions* Patient Instructions* Madyson Villafuerte PA-C - 04/10/2025 1:49 PM EDT Advance activity per PT guidance. Pool per tolerance - NO swim strokes, scissor kick or treading water No impact and explosive/ ballistic activities (running, jumping, forced extremes of motion) No deep (> 90 degrees) squatting Lifting restriction max 30 pounds rarely documented in this encounterMemorial Hospital08-01-2025 NoteHNO ID: [id number] Author: MADYSON VILLAFUERTE PA-C Service: ? Author Type: Physician [employer]ary [employer] Oven Tender Type: Progress Notes Filed: 04/10/2025 13:49 Note Text: POST OP DISTANCE HEALTH VIRTUAL VISIT DOCUMENTATION NOTE I have communicated my name and active licensure. The patient's identity and physical location were verified at the time of this visit. Either the patient or their legal inside outside sales representative has been informed of the risks and benefits of -- and alternatives to -- treatment through a remote evaluation and consents to proceed with the evaluation remotely. Distance Health Platform: [employer] Virtual Visit People present : Madyson Villafuerte [...] [address] Glen Villafuerte, MS, [facility] History of Present illness Narrative* Madyson Villafuerte PA-C - 04/10/2025 1:38 PM EDT POST OP DISTANCE HEALTH VIRTUAL VISIT DOCUMENTATION NOTE I have communicated my name and active licensure. The patient's identity and physical location wereverified at the time of this visit. Either the patient or their legal inside outside sales representative has been informed of the risks and benefits of -- and alternatives to -- treatment through a remote evaluation andconsents to proceed with the evaluation remotely. [employer] Health Platform: [employer] Virtual Visit People present : Madyson Villafuerte [...] motions with my instruction via the video enabledtechnology): Hip flexion 95, IR 10, ER 40 [...] [address] Glen Villafuerte, MS, PA-C documented in this encounterMemorial Hospital07-29-2025 History of Present illness Narrative* Katty Gonzalez - 04/07/2025 2:30 PM EDT Physical Therapy [facility]ation[facility]Outpatient Rehabilitation Date: 04/07/2025 Patient Name: Ashlee [...] does not require skilled services due to: Therapist/Rotary Peel Oven Tender will attempt to see this patient, at our earliest opportunity. Katty Gonzalez Date: 04/07/2025 Cosigned by Malaika Hernández, PT at 04/07/2025 2:29 PM EDT documented in this encounterBon [id number] History of Present illness Narrative* Mynor Glaser PA-C - 04/06/2025 4:00 PM EDT Images from the original note [...] 2-3 times a day as tolerated. She wasalso referred to pain psychology and a comprehensive pain recovery program, and water therapy was recommended. Since then, she has undergone arthroscopic labral tear repair of the right hip, femoroplasty, acetabuloplasty, and capsular closure on 02/23/[address] Encarnacion. She is also under the care ofDr. Gutierrez from physical medicine and rehab, with her last visit on 03/04/25. X-rays were ordered, and [facility]. Her last prescription for pregabalin 50 mgwas filled on 03/25/25 for 90 tablets for 30 days, as prescribed by Dr. Huang. She also had a shortprescription for oxycodone on 02/23/25 for 10 tablets [...] and ankles, with numbness and tingling in bothlegs, varying in intensity and location. Ashlee reports [...] to continue taking it to minimize bone sca rring and inflammation. She denies fever, chills, chest pain, shortness of breath, loss of bowel orbladder control, or dizziness. Information copied from last Pain Management note dated 01/05/25 with provider: Rishabh Huang MD Assessment & Plan January 05, 2025 The primary encounter diagnosis was Fibromyalgia. Diagnoses of Diffuse pain, Back pain with historyof spinal surgery, Status post lumbar spinal fusion, [...] as migraines. A spine x-ray revealed a fusionof the tailbone and spine, initially suspected to [...] her spine is bulged, and her previous manager laboratory indicated that she might need multiple surgeries in the future, depending on her body's response. Ashlee has tried various medications, including gabapentin at a low dose of 100 mg once daily for 5 days, prescribed by Jos Millan, without relief. She reports being highly sensitive to medications,experiencing dizziness and episodes of conscious blackouts where [...] expresses interest in it. She lives in [place], about an hour [place] a half away, making frequent visits challenging. Ashlee has a history of severe depression and has been flagged as a suicide risk. She attempted suicide twice at age 14 and has a history of s, elf-harm. She is not currently seeing a psychiatrist buthas a referral pending. She reports that her [...] long standing history of widespread pain and hypersensitivityto touch. Pain is exacerbated by various factors including weather, stress, and physical activity. Patient has tried some neuropathic agents and has a history of poor medication tolerance. Chronic pain is significantly impacting quality of life and mental health. - Educated patient on the nature of fibromyalgia, emphasizing the importance of a multidisciplinaryapproach to management. - Initiated Lyrica 50 mg [...] HISTORY: Aftercare following surgery of the musculoskeletal aviation technical systems specialist PROVIDED HISTORY: Is the patient ?->No FINDINGS: [...] right upper extremity with additional nerve conduction studiesof the left upper extremity reveals changes most consistent with the followin. Right median neuropathy at or distal to the wrist, consistent with a clinical diagnosis of carpal tunnel syndrome, mild in degree electrically. 2. No evidence of a right cervical radiculopathy. 3. No evidence of a left median neuropathy. HPI: Recording using [employer] software for draft documentation of the visit was discussed with the patient/authorized inside outside sales representative; all questions welcomed and answered. Patient/authorized inside outside sales representative agreed to proceed Ashlee Jalloh is [...] 2-3 times a day as tolerated. She wasalso referred to pain psychology and a comprehensive pain recovery program, and water therapy was recommended. Since then, she has undergone arthroscopic labral tear repair of the right hip, femoroplasty, acetabuloplasty, and capsular closure on 02/23/[address] Encarnacion. She is also under the care ofDr. Johnathan Haas from physical medicine and rehab, [...] and ankles, with numbness and tingling in bothlegs, varying in intensity and location. Ashlee reports that her pain is worse with bending and describes a sensation of her back giving out when bending down and a searing pain when coming back up. She also experiences episodes of her legs giving out at work, occurring 1- 2 times per shift, and occasionally at home on the stairs. Sherates her back jordan from 2-3/10 and reports it goes up to a 10/10 rarely. She has not experienced any falls but reports that her legs feel wobbly when her back pain is severe. She is currently doingland-based physical therapy and reports good range of [...] PA-C April 06, 2025 documented in this encounterMemorial Hospital07-28-2025 NoteHNO ID: [id number] Author: MYNOR GLASER PA-C Service: ? Author Type: Physician Rotary Peel Oven Tender Type: Progress Notes Filed: 04/13/2025 12:54 Note [...] She has not yet (more content not included)...[facility]07-28-2025 Instructions* Patient Instructions* Mynor Glaser PA-C - 04/06/2025 3:51 PM EDT Follow up with Dr. Rishabh Huang in 3 months or sooner if needed. documented in this encounterMemorial Hospital07-23-2025 History of Present illness Narrative* Maalika Hernández, PT - 04/01/2025 3:45 PM EDT [facility] Outpatient Physical Therapy Daily Note Patient: Ashlee Jalloh : 1985 CSN #: [id number] Referring Physician: Rishabh Huang MD Date: 04/01/2025 Diagnosis: M24.259 Treatment Diagnosis: R hip labral repair PT Insurance Information: [facility] medicaid Total # of Visits Approved: 10 Per Physician Order Total # of Visits to Date: 8 No Show: 0 Canceled Appointment: 2 04/21/25 Plan of Care/Recert Due Pre-Treatment Pain: 1/10 Subjective: Pt with minimal R hip pain today maybe 1/10 per pt, does have some increased groin painthis date. Exercises: Exercise 3: L3.5 x10min Exercise [...] LE fatigue by end of session. Will continueper tolerance. Activity Tolerance Activity Tolerance: Patient tolerated [...] to improve function with ADL's. - met Printed Forms Proofreader Goals Time Frame for Printed Forms Proofreader Goals : 6 weeks Residential Goal 1: Pt will independant and compliant with HEP to maintain functional gains made at therapy. - progressing Printed Forms Proofreader Goal 2: Pt will report 2/10 or less R hip pain on average to facilitate completion of ADL's. - progressing 3/10 average Residential Goal 3: Pt to improve R hip strength to 4+/5 grossly for ease with transfers and prolonged ambulation. - progressing 4-/5 grossly Residential Goal 4: Pt to improve R hip flexion/abd to be equal to L for improved gait mechanics. - progressing hip flexion 90* abd: 23* Printed Forms Proofreader Goal 5: Pt to report 70% improvement in symptoms to display increased QOL. - MET 85% Minutes Tracking: Time In: 1545 Time Out: 1628 Minutes: 43 Timed Code Treatment Minutes: 42 Minutes MALAIKA HERNÁNDEZ PT, DPT Date: 04/01/2025 documented in this encounterBon [facility] History of Present illness Narrative* Corby Lewis MIXING TANK OPERATOR - 03/30/2025 3:00 PM EDT Physical Therapy [facility] Outpatient Physical Therapy Daily Note Patient: Ashlee Jalloh : 1985 CSN #: [id number] Referring Physician: Rishabh Huang MD Date: 03/30/2025 Treatment Diagnosis: R hip labral repair PT Insurance Information: [facility] medicaid Total # of Visits [...] improve mobility prior to excercises, additions and progressionsmade as indicated on flow sheet with focus on right glut / core strength and hip flexor ROM to improve hip ROM and strength post op. Moderate glut and core weakness demo, able to complete modifed versions of glut and core strengthening excercises today with moderate fatigue but no increase of pain.VC on proper glut engagement to improve firing [...] to improve function with ADL's. - met Residential Goals Time Frame for Residential Goals : 6 weeks Printed Forms Proofreader Goal 1: Pt will independant and compliant with HEP to maintain functional gains made at therapy. - progressing Residential Goal 2: Pt will report 2/10 or less R hip pain on average to facilitate completion of ADL's. - progressing 3/10 average Residential Goal 3: Pt to improve R hip strength to 4+/5 grossly for ease with transfers and prolonged ambulation. - progressing 4-/5 grossly Printed Forms Proofreader Goal 4: Pt to improve R hip flexion/abd to be equal to L for improved gait mechanics. - progressing hip flexion 90* abd: 23* Residential Goal 5: Pt to report 70% improvement in symptoms to display increased QOL. - MET 85% Minutes Tracking: Time In: 1500 Time Out: 1544 Minutes: 44 Timed Code Treatment Minutes: 44 Minutes Corby Lewis PTA Date: 03/30/2025 Cosigned by Malaika Hernández, PT at 03/30/2025 4:34 PM EDT documented in this encounterBon [facility]-2025 NoteHNO ID: [id number] Author: HALEY KING MD Service: ? Author [...] applicable. Jocelynn Norman Emg tech Haley King [facility]07-16-2025 History of Present illness Narrative* Haley King MD - 03/25/2025 9:26 AM EDT UNIVERSAL PROTOCOL / SAFETY CHECKLIST Procedure to [...] tech Haley King MD documented in this encounterMemorial Hospital07-15-2025 History of Present illness Narrative* Malaika Hernández, PT - 03/24/2025 1:00 PM EDT [facility] Physical Therapy Daily Note Patient: Ashlee Jlaloh : 1985 CSN #: [id number] Referring Physician: Rishabh Huang MD Date: 03/24/2025 Diagnosis: M24.259 Treatment Diagnosis: R hip labral repair PT Insurance Information: [facility] medicaid Total # of Visits [...] IND with min antalgic gait. Continues with grossL LE strength defecits at 4-/5 grossly with increased pain when resistance is added. Pain levels have trended downward, pt reports one recent episode of her leg falling into abd/ext when lying on thecouch and now having increaed R groin pain. [...] to improve function with ADL's. - met Printed Forms Proofreader Goals Time Frame for Printed Forms Proofreader Goals : 6 weeks Residential Goal 1: Pt will independant and compliant with HEP to maintain functional gains made at therapy. - progressing Residential Goal 2: Pt will report 2/10 or less R hip pain on average to facilitate completion of ADL's. - progressing 3/10 average Printed Forms Proofreader Goal 3: Pt to improve R hip strength to 4+/5 grossly for ease with transfers and prolonged ambulation. - progressing 4-/5 grossly Residential Goal 4: Pt to improve R hip flexion/abd to be equal to L for improved gait mechanics. - progressing hip flexion 90* abd: 23* Printed Forms Proofreader Goal 5: Pt to report 70% improvement in symptoms to display increased QOL. - MET 85% Minutes Tracking: Time In: 1300 Time Out: 1345 Minutes: 45 Timed Code Treatment Minutes: 43 Minutes MALAIKA HERNÁNDEZ PT, DPT Date: 03/24/2025 * Malaika Hernández PT - 03/24/2025 1:00 PM EDT [facility]patient Physical Therapy Date: 03/24/2025 Patient: Ashlee Jalloh : 1985 CSN #: [id number] Referring Physician: Rishabh Huang MD [] Plan [...] IND with min antalgic gait. Continues with grossL LE strength defecits at 4-/5 grossly with increased pain when resistance is added. Pain levels have trended downward, pt reports one recent episode of her leg falling into abd/ext when lying on thecouch and now having increaed R groin pain. [...] to improve function with ADL's. - met Residential Goals Time Frame for Residential Goals : 6 weeks Printed Forms Proofreader Goal 1: Pt will independant and compliant with HEP to maintain functional gains made at therapy. - progressing Residential Goal 2: Pt will report 2/10 or less R hip pain on average to facilitate completion of ADL's. - progressing 3/10 average Residential Goal 3: Pt to improve R hip strength to 4+/5 grossly for ease with transfers and prolonged ambulation. - progressing 4-/5 grossly Printed Forms Proofreader Goal 4: Pt to improve R hip flexion/abd to be equal to L for improved gait mechanics. - progressing hip flexion 90* abd: 23* Printed Forms Proofreader Goal 5: Pt to report 70% improvement [...] Date: 03/24/2025 Physician Signature documented in [facility] History of Present illness Narrative* Katty Gonzalez - 03/19/2025 11:15 AM EDT Physical Therapy [facility] Inpatient/Observation/Outpatient Rehabilitation Date: 03/19/2025 Patient Name: Ashlee Bosch [] Inpatient Acute/Observation [x] Outpatient : 1985 [...] does not require skilled services due to: Therapist/Rotary Peel Oven Tender will attempt to see this patient, at our earliest opportunity. Katty Gonzalez Date: 03/19/2025 Cosigned by Corby Lewis PTA at 03/19/2025 11:16 AM EDT documented in this encounterBon [facility] [place] History of Present illness Narrative* Corby Lewis PTA - 03/16/2025 11:15 AM EDT Physical Therapy [facility]patient Physical Therapy Daily Note Patient: Ashlee Jalloh : 1985 CSN #: [id number] Referring Physician: Rishabh Huang MD Date: 03/16/2025 Treatment Diagnosis: R hip labral repair PT Insurance Information: [facility] medicaid Total # of Visits Approved: 10 Per Physician Order Total # of Visits to Date: 5 No Show: 0 Canceled Appointment: 1 03/24/25 Plan of Care/Recert Due Pre-Treatment Pain: 2/10 Subjective: Pt reports pain level 2/10 in righ thip, reports compliance with HEP. Pt is 3 [...] LE flat on table and L SKTC, [id number] Exercise 8: standing RLE open chain ther [...] was too short and in wrong hand, MIXING TANK OPERATOR spent time adjusting to proper height and [...] to improve function with ADL's. - met Printed Forms Proofreader Goals Time Frame for Residential Goals : 6 weeks Printed Forms Proofreader Goal 1: Pt will independant and compliant with HEP to maintain functional gains made at therapy. Printed Forms Proofreader Goal 2: Pt will report 2/10 or less R hip pain on average to facilitate completion of ADL's. Printed Forms Proofreader Goal 3: Pt to improve R hip strength to 4+/5 grossly for ease with transfers and prolonged ambulation. Printed Forms Proofreader Goal 4: Pt to improve R hip flexion/abd to be equal to L for improved gait mechanics. Printed Forms Proofreader Goal 5: Pt to report 70% improvement in symptoms to display increased QOL. Minutes Tracking: Time In: 1115 Time Out: 1155 Minutes: 40 Timed Code Treatment Minutes: 40 Minutes Corby Lewis PTA Date: 03/16/2025 Cosigned by Malaika Hernández, PT at 03/16/2025 12:28 PM EDT documented in this encounterBon [facility] [place] History of Present illness Narrative* Sergio Barkley - 03/11/2025 11:30 AM EDT [facility] Out[facility] Physical Therapy Daily Note Patient: Ashlee Jalloh : 1985 CSN #: [id number] Referring Physician: Rishabh Huang MD Date: 03/11/2025 Diagnosis: M24.259 Treatment Diagnosis: R hip labral repair PT Insurance Information: formerly [facility] medicaid Total # of Visits [...] LE flat on table and L SKTC, [id number] Exercise 7: Seated LAQ, ankle pumps, HS [...] to improve function with ADL's. - met Residential Goals Time Frame for Printed Forms Proofreader Goals : 6 weeks Printed Forms Proofreader Goal 1: Pt will independant and compliant with HEP to maintain functional gains made at therapy. Residential Goal 2: Pt will report 2/10 or less R hip pain on average to facilitate completion of ADL's. Residential Goal 3: Pt to improve R hip strength to 4+/5 grossly for ease with transfers and prolonged ambulation. Printed Forms Proofreader Goal 4: Pt to improve R hip flexion/abd to be equal to L for improved gait mechanics. Residential Goal 5: Pt to report 70% improvement in symptoms to display increased QOL. Minutes Tracking: Time In: 1135 Time Out: 1219 Minutes: 44 Timed Code Treatment Minutes: 41 Minutes Sergio Alcantar Date: 03/11/2025 Cosigned by Malaika Hernández, PT at 03/11/2025 2:08 PM EDT documented in this encounterBon [facility] [place] Instructions* Patient Instructions* Madyson Villafuerte PA-C - 03/10/2025 2:06 PM EDT Brace: Discontinue Weight Bearing: Progressive - use 2 crutches for minimum 3 days working up to 50 % weight bearing then if able to comfortably bear more than 50% weight transition to 1 crutch or cane for minimum 3 days - full weightbearing as tolerated day 3. Then continue cane/ crutch as needed to avoid limping Wound Care You can get your incisions wet in the shower, by allowing the water to run over them. Avoid scrubbing incisions. Do not soak or submerge your leg in a hot tub, bath tub or pool until you are at least 4 weeks postop and incisions well healed. Do not apply lotions or ointments to your incisions until you are 3 weeks post op and incisions arewell healed. Medications: Finish Naproxen prescription. Then NSAID [...] degrees - as the scar tissue is maturingand you are gaining muscle strength and endurance Activities: Pay attention to soreness at the end of day - this is your guide to back off on activity - sorenessshould resolve/ improve within 24 hours Ok to [...] for 10-15 minutes per session to stretch thefront of your hip. Avoid walking for exercise [...] others. Follow-up: 4 weeks documented in this encounterMemorial Hospital07-01-2025 NoteHNO ID: [id number] Author: MADYSON VILLAFUERTE PA-C Service: ? Author Type: Physician [employer] Tender Type: Progress Notes Filed: 03/10/2025 16:27 Note Text: Post Op Follow Up Visit Ashlee Jalloh returns 15 days s/p 1. right hip arthroscopy 2. Labral repair CPT 29977 3. Femoroplasty CPT 58746 4. Acetabuloplasty CPT 41852 5. Capsular Closure DOS: 02/23/25 Denies interim injury or trauma Brace intact Weight bearing: partial with 2 crutches Post op medication usage: Naproxen consistent use tolerating well Opioid took 1 tablet Muscle relaxant effective Physical therapy going well PAIN EVALUATION 03/03/2025 2157 03/10/2025 1320 Pain Level: 6 2 Pain Location: Back-Lower Hip-Right Description: Aching;Dull;Numbness;Shooting;Sore;Stabbing/Not Incision;Stiffness;Throbbing Sore;Aching Duration Amount of Time: 12 2 Duration Units: Months Weeks Frequency: Continuous Intermittent Intervention/Comfort measure: Medication;Relaxation;Cold;Heat;Massage;Pillow support Exercise PT Review of Symptoms: General: [...] brake if necessary t (more content not included)...[facility]07-01-2025 History of Present illness Narrative* Madyson Villafuerte PA-C - 03/10/2025 1:59 PM EDT Images from the original note were not included. Post Op Follow Up Visit Ashlee Jalloh returns 15 days s/p 1. right hip arthroscopy 2. Labral repair CPT 71760 3. Femoroplasty CPT 74667 4. Acetabuloplasty CPT 06004 5. Capsular Closure DOS: 02/23/25 Denies interim injury or trauma Brace intact Weight bearing: partial with 2 crutches Post op medication usage: Naproxen consistent use tolerating well Opioid took 1 tablet Muscle relaxant effective Physical therapy going well PAIN EVALUATION 03/03/2025 2157 03/10/2025 1320 Pain Level: 6 2 Pain Location: Back-Lower Hip-Right Description: Aching;Dull;Numbness;Shooting;Sore;Stabbing/Not Incision;Stiffness;Throbbing Sore;Aching Duration Amount of Time: 12 2 Duration Units: Months Weeks Frequency: Continuous Intermittent Intervention/Comfort measure: Medication;Relaxation;Cold;Heat;Massage;Pillow support Exercise PT Review of Symptoms: General: [...] cane for minimum 3 days - full weightbearing as tolerated day 3. Then continue cane/ crutch as needed to avoid limping Wound Care You can get your incisions wet in the shower, by allowing the water to run over them. Avoid scrubbing incisions. Do not soak or submerge your leg in a hot tub, bath tub or pool until you are at least 4 weeks postop and incisions well healed. Do not apply lotions or ointments to your incisions until you are 3 weeks post op and incisions arewell healed. Medications: Finish Naproxen prescription. Then NSAID [...] degrees - as the scar tissue is maturingand you are gaining muscle strength and endurance Activities: Pay attention to soreness at the end of day - this is your guide to back off on activity - sorenessshould resolve/ improve within 24 hours Ok to [...] for 10-15 minutes per session to stretch thefront of your hip. Avoid walking for exercise [...] Follow-up: 4 weeks Madyson Villafuerte MS, PA-C * Delia Mckeon LPN - 03/10/2025 1:30 PM EDT Three sutures removed for two incisions anterior hip. Pt tolerated. No redness no drainage noted toincisions. New steri strips applied. documented in this encounterMemorial Hospital07-01-2025 NoteHNO ID: [id number] Author: DELIA MCKEON LPN Service: ? Author Type: LICENSED NURSE Type: Progress Notes Filed: 03/10/2025 16:27 Note Text: Three sutures removed for two incisions anterior hip. Pt tolerated. No redness no drainage noted to incisions. New steri strips applied.[facility]06-30-2025 History of Present illness Narrative* Katty Gonzalez - 03/09/2025 7:45 AM EDT Physical Therapy [facility] Inpatient/Observation/Outpatient Rehabilitation Date: 03/09/2025 Patient Name: Ashlee Bosch [] Inpatient Acute/Observation [x] Outpatient : 1985 [...] does not require skilled services due to: Therapist/Rotary Peel Oven Tender will attempt to see this patient, at our earliest opportunity. Katty Gonzalez Date: 03/09/2025 Cosigned by Sergio Barkley at 03/09/2025 3:03 PM EDT documented in this encounterBon [facility] [place] History of Present illness Narrative* Arturo Virk, PT - 03/05/2025 10:45 AM EDT [facility] Outpatient Physical Therapy Daily Note Patient: Ashlee Jalloh : 1985 CSN #: [id number] Referring Physician: Rishabh Huang MD Date: 03/05/2025 Diagnosis: M24.259 Treatment Diagnosis: R hip labral repair PT Insurance Information: [facility] medicaid Total # of Visits Approved: 10 Per Physician Order Total # of Visits to Date: 3 No Show: 0 Canceled Appointment: 1 03/24/25 Plan of Care/Recert Due Pre-Treatment Pain: 11/17 Subjective: Patient returns to doctor on Sunday to get stitches out and hopefully progress to nextphase of protocol. Exercises: Exercise 1: HEP: glute set, prone lying, passive hip circumduction/abd/flex Exercise 2: * FOLLOW PROTOCOL IN BIN Exercise 3: scifit seat all the way up! L1 x8 min Exercise 4: Supine: hip abd/adduction isometric; TA activation; glue sets x15 ea Exercise 6: Supine R hip flexor stretch with R LE flat on table and L SKTC, [id number] Exercise 7: Seated LAQ, ankle pumps, HS [...] 0* with no increase in pain. Will continueto progress as able. Activity Tolerance Activity Tolerance: [...] to improve function with ADL's. - met Residential Goals Time Frame for Printed Forms Proofreader Goals : 6 weeks Residential Goal 1: Pt will independant and compliant with HEP to maintain functional gains made at therapy. Residential Goal 2: Pt will report 2/10 or less R hip pain on average to facilitate completion of ADL's. Printed Forms Proofreader Goal 3: Pt to improve R hip strength to 4+/5 grossly for ease with transfers and prolonged ambulation. Printed Forms Proofreader Goal 4: Pt to improve R hip flexion/abd to be equal to L for improved gait mechanics. Printed Forms Proofreader Goal 5: Pt to report 70% improvement in symptoms to display increased QOL. Minutes Tracking: Time In: 1049 Time Out: 1129 Minutes: 40 Timed Code Treatment Minutes: 39 Minutes Arturo Virk PT, DPT Date: 03/05/2025 documented in this encounterBon [facility] [place]25 NoteHNO ID: [id number] Author: JOHNATHAN HAAS MD Service: ? Author [...] mg by mouth once daily as needed. Rcnvl-2-NEW-EPA-Fish Oil (FISH OIL) 1,000 (120-180) mg cap [...] joints. 3. Multifactorial degener (more content not included)...[facility]06-25-2025 History of Present illness Narrative* Johnathan Haas MD - 03/04/2025 11:06 AM EDT REHABILITATION RECHECK: Follow-up evaluation Committee wheelchair recent [...] symptoms have not changed. The distribution of painfulsymptoms has has not changed. Positive red flags [...] hours as needed for pain or musclespasms ondansetron orally disintegrating (ZOFRAN ODT) 4 mg [...] mg by mouth once daily as needed. Nifpe-8-NXW-EPA-Fish Oil (FISH OIL) 1,000 (120-180) mg cap [...] examine her lumbar spine due to recent righthip surgery nonweightbearing with the brace Reviewed spine [...] lumbar spine as above in more detail. Electrician'S Assistant: EDGAR Transcribe Date/Time: Dec 30 2024 10:05A Dictated [...] (primary encounter diagnosis) Comment: Plan: CONSULT TO [facility] FOR PAIN RECOVERY (CHRONIC PAIN), XR LUMBAR MOTION 4V AP/LAT/ FLEX/EXT (M96.1) Failed back syndrome Comment: Plan: [facility] TO [facility] ([facility] PAIN), CONSULT TO SPINE SURGERY, XR LUMBAR MOTION 4V AP/LAT/ FLEX/EXT (M54.9) Mechanical back pain Comment: Plan: CONSULT TO [facility] FOR PAIN RECOV[facility] (CHRONIC PAIN), XR LUMBAR [...] coordination This note was partially generated using Eximia voice recognition system, and there may be some incorrect words, spellings, and punctuation that were not noted in checking the note before saving Johnathan Haas MD documented in this encounterMemorial Hospital06-23-2025 History of Present illness Narrative* Arturo Virk, PT - 03/02/2025 1:00 PM EDT [facility] Inpatient/Observation/Outpatient Rehabilitation Date: 03/02/2025 Patient Name: Ashlee [...] does not require skilled services due to: Therapist/Rotary Peel Oven Tender will attempt to see this patient, at our earliest opportunity. Arturo Virk PT, DPT Date: 03/02/2025 documented in this encounterBon [facility] Telephone encounter Note* Telephone Encounter - Noemi Francis AT - 02/26/2025 3:45 PM EDT Spoke with patient on the phone. Discussed the alternatives to using the pink pillow. Patient is doing well post op. Tessie Leggett, AT, ATC [facility] Work Phone: [phone] Miscellaneous Notes* Telephone Encounter - Noemi Francis AT - 02/26/2025 3:45 PM EDT Spoke with patient on the phone. Discussed the alternatives to using the pink pillow. Patient is doing well post op. Tessie Leggett, AT, ATC * Telephone Encounter - Torito Rosa - 02/26/2025 2:41 PM EDT Pnt lvm her dog ate the pink pillow she was given post op and wanting to know how long she is supposed to use it or if its ok that she doesn't. If needed she wants to know if/where/how she can get another one documented in this encounterMemorial Hospital06-19-2025 Telephone encounter Note * Telephone Encounter - Torito Rosa - 02/26/2025 2:41 PM EDT Pnt lvm her dog ate the pink pillow she was given post op and wanting to know how long she is supposed to use it or if its ok that she doesn't. If needed she wants to know if/where/how she can get another one [facility] History of Present illness Narrative* Malaika Hernándze, PT - 02/24/2025 11:15 AM EDT [facility] Physical Therapy Evaluation Date: 02/24/2025 Patient: Ashlee Jalloh : 1985 CSN #: [id number] Referring Physician: Rishabh Huang MD Medical Diagnosis: M24.259 Treatment Diagnosis: R hip labral repair PT Insurance Information: [facility] medicaid Total # of Visits Approved: 10 Total # of Visits to Date: 1 No Show: 0 Canceled Appointment: 0 [x] This caption writer acknowledges review of patient history form Subjective [...] 10lbs through R LE with ambulation with FWW.Pt demoes severe R hip ROM and strength defecits compared to L and requries increased time with transfers ambulation and ADLs. Pt would benefit from skilled therapy in order to address these deficitsand return to PLOF. Therapy Prognosis: Good Decision [...] ther ex to improve function with ADL's. Residential Goals Time Frame for Residential Goals : 6 weeks Residential Goal 1: Pt will independant and compliant with HEP to maintain functional gains made at therapy. Residential Goal 2: Pt will report 2/10 or less R hip pain on average to facilitate completion of ADL's. Printed Forms Proofreader Goal 3: Pt to improve R hip strength to 4+/5 grossly for ease with transfers and prolonged ambulation. Printed Forms Proofreader Goal 4: Pt to improve R hip flexion/abd to be equal to L for improved gait mechanics. Printed Forms Proofreader Goal 5: Pt to report 70% improvement in symptoms to display increased QOL. Minutes Tracking: Time In: 1115 Time Out: 1205 Minutes: 50 Timed Code Treatment Minutes: 48 Minutes MALAIKA HERNÁNDEZ PT, DPT 02/24/2025 * Malaika Hernández PT - 02/24/2025 11:15 AM EDT [facility] Physical Therapy Date: 02/24/2025 Patient: Ashlee Jalloh : 1985 CSN #: [id number] Referring Physician: Rishabh Huang MD [x] Plan [...] 10lbs through R LE with ambulation with FWW.Pt demoes severe R hip ROM and strength defecits compared to L and requries increased time with transfers ambulation and ADLs. Pt would benefit from skilled therapy in order to address these deficitsand return to PLOF. Goals Short Term Goals Time Frame for Short Term Goals: 2 weeks Short Term Goal 1: Pt will be inititated with HEP. Short Term Goal 2: Pt will tolerate 30-40 minutes of ther ex to improve function with ADL's. Residential Goals Time Frame for Residential Goals : 6 weeks Printed Forms Proofreader Goal 1: Pt will independant and compliant with HEP to maintain functional gains made at therapy. Printed Forms Proofreader Goal 2: Pt will report 2/10 or less R hip pain on average to facilitate completion of ADL's. Printed Forms Proofreader Goal 3: Pt to improve R hip strength to 4+/5 grossly for ease with transfers and prolonged ambulation. Printed Forms Proofreader Goal 4: Pt to improve R hip flexion/abd to be equal to L for improved gait mechanics. Residential Goal 5: Pt to report 70% improvement [...] Date: 02/24/2025 Physician Signature documented in this encounterBon [facility]25 NoteHNO ID: [id number] Author: NIESHA CHAUDHRY APRN.CRNA Service: ? Author Type: Nurse Land Department Head Type: Anesthesia Procedure Notes Filed: 02/23/2025 07:54 Note Text: ANESTHESIOLOGY PROCEDURE NOTE Airway General Information Procedure Start Time/Medication Administration: 02/23/2025 7:37 AM Procedure End Time: 02/23/2025 7:41 AM Patient location during procedure: OR Timeout Performed Pre-procedure: timeout performed Consent Obtained: Yes Patient identity confirmed: arm band and patient Staffing Performed by: ESL TEACHER Indications and Patient Condition Indications for airway [...] 1 Airway not difficult SIGNATURE: Niesha Chaudhry APRN.ESL TEACHER PATIENT NAME: Ashlee Jalloh DATE: February 23, 2025 TIME: 7:53 AM CSN: [id number] NoteHNO ID: [id number] Author: JAS YIP III, MD Service: Anesthesiology [...] February 23, 2025 TIME: 7:32 AM CSN: [id number] NoteHNO ID: [id number] Author: MADYSON VILLAFUERTE PA-C Service: ? Author Type: Physician Rot[employer] Peel Oven Tender Type: Progress Notes Filed: 02/20/2025 07:51 Note Text: I have personally reviewed Noemi Francis ATC note. I agree with the findings as documented. Other additions or changes: none Office note and Imaging reviewed HDAI reviewed Consent initiated Madyson Villafuerte PA-C February 20, 2025 7:50 [facility]06-13-2025 History of Present illness Narrative* Madyson Villafuerte PA-C - 02/20/2025 7:50 AM EDT I have personally reviewed Noemi Mindeck, ATC note. I agree with the findings as documented. Other additions or changes: none Office note and Imaging reviewed HDAI reviewed Consent initiated Madyson Villafuerte PA-C February 20, 2025 7:50 AM * Noemi Francis, AT - 02/03/2025 4:19 PM EDT Spoke with patient on the phone regarding scheduling surgery for their right hip with Dr. Encarnacion. Procedure: Right hip arthroscopy - Labral repair, Arthroscopic cam impingement femoroplasty, and Arthroscopic pincer impingement acetabuloplasty. Location: [facility] Date: 02-23-25 Last office visit: 01-07-25 Insurance: [employer] Medicaid Home: [address] [place] [address] BMI: There is no height or weight [...] CPM: No Pre op instructions sent via Scaleform. Medications: pregabalin (LYRICA) 50 mg capsule Take 1 capsule by mouth three times a day for 90 days. Hibxw-6-ICP-EPA-Fish Oil (FISH OIL) 1,000 (120-180) mg cap [...] Tessie Leggett, AT, ATC documented in this encounterMemorial Hospital06-12-2025 History of Present illness Narrative* Rebeca Hollowya LPN - 02/19/2025 8:30 AM EDT Reason for Appointment: Patient ID: Ashlee Jalloh [...] nursing note reviewed. Exam conducted with a secy present. Vitals: Estimated body mass index is [...] of: Tori Farmer PA-C documented in this encounterBothwell Regional Health [id number] History and physical note * Blessing Horvath PA-C - 02/16/2025 7:40 AM EDT Images from the original note were [...] Thick neck: no Lip Bite Test: II Microretrognathia/Micronagthia/Recessed Chin: No DENTAL Normal dental observations. Additional [...] for consultation. My final recommendation will be communicatedback to the requesting physician by way of [...] COVID-19 original vaccine, age 12+ yr, monovalent (Fusion Dynamic- FIRE1 - PURPLE TOP) 02/04/2021 Imm Admin: COVID-19 original vaccine, age 12+ yr, monovalent (Fusion Dynamic- BIONTRazient - PURPLE TOP) REVIEW OF SYSTEMS: PAIN ASSESSMENT: General: No weight loss, malaise or fevers. 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 No neurological symptoms or problems. Respiratory: No history of current cough or dyspnea, or pneumonia in the past 6 weeks. No history of respiratory/pulmonary symptoms or problems. Cardiovascular: No history of HTN requiring medication, no history of angina, CHF, KS, cardiac surgery or stents. Denies rest pain, gangrene or revascularization/amputation for PVD. No history of cardiovascular symptoms or problems. GI:+gerd, IBS Denies abdominal pain, nausea, vomiting, diarrhea, constipation, hematochezia, melena. :+kidney stones Denies hematuria, dysuria, frequency, urgency, nocturia, difficulty initiating ormaintaining a stream, flank pain. Endocrine: No history of diabetes. Has not taken steroids within the past 30 days. No history of endocrinological symptoms or problems. Hematology: No history of bleeding or clotting disorder. Pt is not taking anti- coagulation or platelet medications. No history of hematological [...] Prior to Admission medications as of 02/16/25 0791 Medication Sig Last Dose Taking Phentermine HCl [...] by mouth once daily as needed. Yes Xcofn-3-EOI-EPA-Fish Oil (FISH OIL) 1,000 (120-180) mg cap [...] voices comprehension and compliance. Consent Recording using [employer] software for draft documentation of the visit was discussed with the patient/authorized inside outside sales representative; all questions welcomed and answered. Patient/authorized inside outside sales representative agreed to proceed SIGNATURE: Blessing Horvath PA-C PATIENT NAME: Ashlee Jalloh DATE: 02/16/2025 TIME: 8:13 AM PAGER[facility]CONTACT [facility] History and physical note* Blessing Horvath PA-C - 02/16/2025 7:40 AM EDT Images from the original note were [...] Thick neck: no Lip Bite Test: II Microretrognathia/Micronagthia/Recessed Chin: No DENTAL Normal dental observations. Additional [...] for consultation. My final recommendation will be communicatedback to the requesting physician by way of [...] COVID-19 original vaccine, age 12+ yr, monovalent (PFIZER- BIONTECH - PURPLE TOP) 02/04/2021 Imm Admin: COVID-19 original vaccine, age 12+ yr, monovalent (PFIZER- BIONTECH - PURPLE TOP) REVIEW OF SYSTEMS: PAIN ASSESSMENT: General: No weight loss, malaise or fevers. 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 No neurological symptoms or problems. Respiratory: No history of current cough or dyspnea, or pneumonia in the past 6 weeks. No history of respiratory/pulmonary symptoms or problems. Cardiovascular: No history of HTN requiring medication, no history of angina, CHF, KS, cardiac surgery or stents. Denies rest pain, gangrene or revascularization/amputation for PVD. No history of cardiovascular symptoms or problems. GI:+gerd, IBS Denies abdominal pain, nausea, vomiting, diarrhea, constipation, hematochezia, melena. :+kidney stones Denies hematuria, dysuria, frequency, urgency, nocturia, difficulty initiating ormaintaining a stream, flank pain. Endocrine: No history of diabetes. Has not taken steroids within the past 30 days. No history of endocrinological symptoms or problems. Hematology: No history of bleeding or clotting disorder. Pt is not taking anti- coagulation or platelet medications. No history of hematological [...] by mouth once daily as needed. Yes Eodtr-8-OZJ-EPA-Fish Oil (FISH OIL) 1,000 (120-180) mg cap [...] voices comprehension and compliance. Consent Recording using [employer] software for draft documentation of the visit was discussed with the patient/authorized inside outside sales representative; all questions welcomed and answered. Patient/authorized inside outside sales representative agreed to proceed SIGNATURE: Blessing Horvath PA-C PATIENT NAME: Ashlee Jalloh DATE: 02/16/2025 TIME: 8:13 AM PAGER/CONTACT #: documented [facility] encounter[facility] Instructions* Patient Instructions* Blessing Horvath PA-C - 02/13/2025 8:38 AM EDT [facility] PATIENT PREOPERATIVE INSTRUCTIONS Deniz Encarnacion MD has scheduled you for your procedure at this surgery center: [facility]: [phone] --[address] [address]. Please read below carefully for your personalized [...] office. If you are currently using a efmz-dve-zaqx injectable or oral medication for diabetes or weight loss such as Dulaglutide (Trulicity), Exenatide (Byetta, Bydureon), Liraglutide (Victoza, Saxenda), Semaglutide (Ozempic, Wegovy, Rybelsus), or Tirzepatide (Mounjaro), the medicine should be stopped at least 7 days before surgery. These medicines can cause food to remain in your stomach for a very longtime and increase the risks from surgery and [...] Procedures: - YOU MUST HAVE A RESPONSIBLE WIRE SPINNER TAKE YOU HOME. A HYPERBARIC TECH OR PRE ASSEMBLY WIRER CANNOT BE MADE A RESPONSIBLE WIRE SPINNER. - We recommend that a responsible person stays with you overnight to take care of you. - You cannot stay in a hotel alone after outpatient surgery. You will not be permitted to have yoursurgery, if you do not have someone to take care of you. If you already have an Advance Directive, please fax a copy to [phone] or email to for it to be added to your chart. If you do not have an Advance Directive, you can find the appropriate form and more information at [email or web address]. We recommend that youcomplete the Advance Directive form found on the website and bring it with you the day of your surgery. It can be witnessed and scanned into your chart that day. Blessing Horvath PA-C documented in this encounterMemorial Hospital06-03-2025 History of Present illness Narrative* Sergio Barkley - 02/10/2025 4:00 PM EDT [facility] No-Show Note Date: 02/11/2025 Patient Name: Ashlee Jalloh : 1985 Plan of Care/Recert ends [x] Pt no showed for scheduled appointment and was contacted regarding compliancy. We will monitor attendance for adherence to attendance policy and contact patient/physician as appropriate. Sergio Barkley MIXING TANK OPERATOR Date: 02/11/2025 Cosigned by Malaika Hernández, PT at 02/11/2025 6:57 AM EDT documented in this encounterIn[facility]-30-[facility] History of Present illness Narrative* Diann Tao, MIXING TANK OPERATOR - 02/06/2025 3:30 PM EDT [facility] No-Show Note Date: 02/06/2025 Patient Name: Ashlee Jalloh : 1985 02/16/25 Plan of Care/Recert ends [x] Pt no showed for scheduled appointment and was contacted regarding compliancy. [x] As a reminder, MIXING TANK OPERATOR called pt Call result went to voicemail, voicemail full, unable to leave message. Next visit is 02/10/25 at 4PM We will monitor attendance for adherence to attendance policy and contact patient/physician as appropriate. Diann Tao PTA Date: 02/06/2025 Cosigned by Malaika Hernández, PT at 02/06/2025 4:19 PM EDT documented in this encounterBon [facility] History of Present illness Narrative* Diann Tao PTA - 02/04/2025 3:45 PM EDT [facility] Daily Note Patient: Ashlee Jalloh : 1985 CSN #: [id number] Referring Physician: Rishabh Huang MD Date: 02/04/2025 Diagnosis: M79.7 fibromyalfia, Z98.1 s/p lumbar fusion Treatment Diagnosis: fibromyalgia, LE weakness, decreased ROM PT Insurance Information: [facility] medicaid Total # of Visits [...] 1: * aquatic therapy per tolerance at [facility]. [employer] land therapy: code [id number] (LTR, march supine, BKFO, TA activation) Exercise [...] ex to improve function with ADL's. -met Residential Goals Time Frame for Residential Goals : 6 weeks Printed Forms Proofreader Goal 1: Pt will independant and compliant with HEP to maintain functional gains made at therapy. Printed Forms Proofreader Goal 2: Pt will report 3/10 or less low back pain on average to facilitate completion of ADL's. Residential Goal 3: Pt to improve B LE strength to 4/5 grossly for ease with work tasks. Printed Forms Proofreader Goal 4: Pt to improve lumbar flexion/ext by 10* or more and sidebend by 10* for ease withbending/twisting. Residential Goal 5: Pt to improve Oswestry score [...] Cues provided for posture. Assistance by therapist providedfor SUP. Patient has difficulty with posture, ROM. Cosigned by Malaika Hernández, PT at 02/04/2025 5:57 PM EDT documented in this encounterBon [facility]zer [facility] [place]05-27-2025 Instructions* Patient Instructions* Noemi Francis, AT - 02/03/2025 4:29 PM EDT Images from the original note were not included. ORTHOPAEDIC SURGERY - SPORTS MEDICINE MD Madyson Posadas, GERRY Torrez, [place] [facility], [address] [address] SURGERY INFORMATION- HIP ARTHROSCOPY You have been scheduled or are considering scheduling OUTPATIENT surgery with Dr. Deniz Encarnacion. Ashlee Jalloh SURGERY DATE: 02-23-25 PROCEDURE: Right hip arthroscopy PRE OPERATIVE APPOINTMENTS: - Pre-operative testing ([facility]) within 30 days of your surgery - Once surgery is scheduled, [facility] will contact you to set up this appointment. Please call [phone] with any questions. - Hip brace fitting - 3-4 weeks prior to surgery contact [phone] or [phone] to schedule hip brace fitting with [employer]/ [employer] rep. - Crutches - Make sure you have crutches that fit you. You can get a set at [employer], [employer], [employer] etc. Prescription can be provided. If you show up without crutches, there is a chance your surgery gets cancelled. Video and written instruction on crutch use https://www.[employer].Braclet/videos/ymj-kdvo-exflzaru-pbhgafwjg-lkklhjl-pvglxb-bear ing https://my.[facility].org/health/articles/70260-nae-la-zev-rmtzontz POST OPERATIVE APPOINTMENTS: -PHYSICAL THERAPY APPOINTMENT - you need to schedule this appointment for the day after surgery - [phone] to schedule - call office if having difficulty securing appointment - Post op follow up appointments surgery: 2 weeks in office with Madyson ROMAN; 6 weeks virtual(in person if preferred) with Madyson ROMAN; 12 weeks in person with Dr. Encarnacion. These appointments will be scheduled for you. SURGERY LOCATION: [facility] [place]/ [facility] - 2nd floor [address] [place] [address] MINIMIZE RISK SURGICAL SITE INFECTION Notify Dr. Encarnacion's office if any of the following apply: after hours [phone] and ask for pager [phone] - If you are prescribed an ANTIBIOTIC [...] financial/insurance questions, please contact our patient financial developer: [phone] POST OP RECOVERY: (Subject to change day [...] week . Please contact the office at [phone] if interested Pain Control: combination of prescription [...] insurance Please contact the office if interested [phone] Driving: none for Minimum 2 weeks Return [...] TRANSPORTATION - YOU MUST HAVE A RESPONSIBLE WIRE SPINNER TAKE YOU HOME. A HYPERBARIC TECH OR PRE ASSEMBLY WIRER CANNOT BE MADE A RESPONSIBLE WIRE SPINNER. - We recommend that a responsible person stays with you overnight to take care of you. - You cannot stay in a hotel alone after outpatient surgery. You will not be permitted to have yoursurgery, if you do not have someone to take care of you. PRE-SURGICAL WASH WITH HIBICLENS INSTRUCTIONS Hibiclens (Chlorhexidine Gluconate solution 4.0% w/v) this special soap is used to reduce the germson your skin to best prepare you for your upcoming surgery. You can find this at [facility]. Alternative: wash with antibacterial soap - Dial [...] label for full product information and precautions. http://www.[facility].us/antiseptics/ualfbwh-pgar-mfssyyhmy/hibiclens/#confirm Antibiotic: You will receive a dose of [...] all paperwork to the office via fax [phone]. Paperwork is typically completed within a week [...] - NO jewelry, body piercings, makeup, nail spanish, hairpins or contacts are to be worn [...] surgery For questions, please call the office: [phone] documented in this encounterMemorial Hospital05-27-2025 NoteHNO ID: [id number] Author: NOEMI FRANCIS AT Service: ? Author Type: Element Burner Type: Progress Notes Filed: 02/20/2025 07:51 Note Text: Spoke with patient on the phone regarding scheduling surgery for their right hip with Dr. Encarnacion. Procedure: Right hip arthroscopy - Labral repair, Arthroscopic cam impingement femoroplasty, and Arthroscopic pincer impingement acetabuloplasty. Location: [facility] Date: 02-23-25 Last office visit: 01-07-25 Insurance: [place] Medicaid Home: [address] [place] [address] BMI: There is no height or weight [...] CPM: No Pre op instructions sent via Scaleform. Medications: pregabalin (LYRICA) 50 mg capsule Take 1 capsule by mouth three times a day for 90 days. Ojuqk-7-TIZ-EPA-Fish Oil (FISH OIL) 1,000 (120-180) mg cap [...] complications - No Noemi Francis, MEd, AT, [facility]05-21-2025 History of Present illness Narrative* Mely Narvaez LPN - 01/28/2025 3:50 PM EDT Reason for Appointment: Patient ID: Ashlee Jalloh [...] History: Diagnosis Date Complex ovarian cyst Depression ([facility]) Encounter for Papanicolaou smear of [...] nursing note reviewed. Exam conducted with a secy present. Vitals: Estimated body mass index is 32.61 kg/m as calculated from the following: Height as of 24: 5' 4 . Weight as of this [...] Sarmiento and uses cream on thighs. Pt sometimeshas vaginal canal pain at times. Pt to start premarin cream in vagina 1/2 applicator every night for two weeks, and then twice a week thereafter. Pt to return as needed. Documented by Mely Narvaez LPN on behalf of: Tommie Mccann DO documented in this encounterBothwell Regional Health [id number] Telephone encounter Note* Telephone Encounter - Noemi Francis, AT - 01/26/2025 3:42 PM EDT Spoke with patient on the phone. Images were reviewed by Dr. Encarnacion. Discussed that she would be a candidate for a hip scope. Labral tear, KRISTI. Patient has gone through extensive conservative treatment. She is leaning towards surgery, however she is also currently being treated for low back pain and they have a few things planned in the nearfuture for that. She will follow up with low back provider and then reach out to us when she is ready to proceed forward surgically. All questions were answered. Tessie Leggett, AT, ATC [facility] Work Phone: [phone]) 230-310205-19-2025 Miscellaneous Notes* Telephone Encounter - Noemi Francis AT - 01/26/2025 3:42 PM EDT Spoke with patient on the phone. Images were reviewed by Dr. Encarnacion. Discussed that she would be a candidate for a hip scope. Labral tear, KRISTI. Patient has gone through extensive conservative treatment. She is leaning towards surgery, however she is also currently being treated for low back pain and they have a few things planned in the nearfuture for that. She will follow up with low back provider and then reach out to us when she is ready to proceed forward surgically. All questions were answered. Tessie Leggett, AT, ATC * Telephone Encounter - Noemi Francis AT - 01/26/2025 2:09 PM EDT Attempted to contact patient via phone. No answer. Left her a detailed voicemail. Office number provided for her to call back when she is able. Tessie Leggett, AT, ATC * Telephone Encounter - Torito Rosa - 01/16/2025 1:54 PM EDT Images in epic PLAN: 1. Medication: Continue [...] arthroplasty. 4. Follow-up: PRN. documented in this encounterMemorial Hospital05-19-2025 Telephone encounter Note * Telephone Encounter - Noemi Francis AT - 01/26/2025 2:09 PM EDT Attempted to contact patient via phone. No answer. Left her a detailed voicemail. Office number provided for her to call back when she is able. Tessie Leggett, AT, ATC [facility] History of Present illness Narrative* Charlene Todd PTA - 01/21/2025 3:15 PM EDT Physical Therapy [facility] Daily Note Patient: Ashlee Jalloh : 1985 CSN #: [id number] Referring Physician: Rishabh Huang MD Date: 01/21/2025 Treatment Diagnosis: fibromyalgia, LE weakness, decreased ROM PT Insurance Information: [facility] medicaid Total # of Visits [...] spinal cord stimulator, has not heard from valve mechanic about when that appointment will be. Exercises: Exercise 1: * aquatic therapy per tolerance at [facility]. [employer] land therapy: code [id number] (LTR, november supine, BKFO, TA activation) Exercise [...] ex to improve function with ADL's. -progressing Printed Forms Proofreader Goals Time Frame for Residential Goals : 6 weeks Residential Goal 1: Pt will independant and compliant with HEP to maintain functional gains made at therapy. Printed Forms Proofreader Goal 2: Pt will report 3/10 or less low back pain on average to facilitate completion of ADL's. Residential Goal 3: Pt to improve B LE strength to 4/5 grossly for ease with work tasks. Residential Goal 4: Pt to improve lumbar flexion/ext by 10* or more and sidebend by 10* for ease withbending/twisting. Residential Goal 5: Pt to improve Oswestry score from 48% disability to 30% or less or better to display progression in symptoms. Aquatic Therapy (29 minutes): Aquatic treatment performed per flow grid for 65- 100% diminished weight loading exercises. Cues provided for upright posture and core activation. Assistance by therapistprovided for supervision, verbal, and visual cues. Patient has difficulty with core activation and standing tolerance. Minutes Tracking: Time In: 1530 Time Out: 1600 Minutes: 30 Timed Code Treatment Minutes: 29 Minutes Charlene Todd PTA Date: 01/21/2025 Cosigned by Malaika Hernández PT at 01/21/2025 5:27 PM EDT documented in this encounterBon [facility]05-12-2025 History of Present illness Narrative* Malaika Hernández PT - 01/19/2025 3:30 PM EDT [facility] Evaluation Date: 01/19/2025 Patient: Ashlee Jalloh : 1985 CSN #: [id number] Referring Physician: Rishabh Huang MD Medical Diagnosis: M79.7 fibromyalfia, Z98.1 s/p lumbar fusion Treatment Diagnosis: fibromyalgia, LE weakness, decreased ROM PT Insurance Information: [place] Total # of Visits Approved: 10 Total # of Visits to Date: 1 No Show: 0 Canceled Appointment: 0 [x] This caption writer acknowledges review of patient history form Subjective [...] after myself normally, but it causes me extrapain Walking: C. Pain prevents me from walking [...] ther ex to improve function with ADL's. Printed Forms Proofreader Goals Time Frame for Residential Goals : 6 weeks Printed Forms Proofreader Goal 1: Pt will independant and compliant with HEP to maintain functional gains made at therapy. Printed Forms Proofreader Goal 2: Pt will report 3/10 or less low back pain on average to facilitate completion of ADL's. Printed Forms Proofreader Goal 3: Pt to improve B LE strength to 4/5 grossly for ease with work tasks. Printed Forms Proofreader Goal 4: Pt to improve lumbar flexion/ext by 10* or more and sidebend by 10* for ease withbending/twisting. Residential Goal 5: Pt to improve Oswestry score from 48% disability to 30% or less or better to display progression in symptoms. Minutes Tracking: Time In: 1530 Time Out: 1615 Minutes: 45 Timed Code Treatment Minutes: 43 Minutes MALAIKA HERNÁNDEZ PT, DPT 01/19/2025 * Malaika Hernández, PT - 01/19/2025 3:30 PM EDT [facility] Date: 01/19/2025 Patient: Ashlee Jalloh : 1985 CSN #: [id number] Referring Physician: Rishabh Huang MD [x] Plan [...] ther ex to improve function with ADL's. Residential Goals Time Frame for Printed Forms Proofreader Goals : 6 weeks Printed Forms Proofreader Goal 1: Pt will independant and compliant with HEP to maintain functional gains made at therapy. Printed Forms Proofreader Goal 2: Pt will report 3/10 or less low back pain on average to facilitate completion of ADL's. Printed Forms Proofreader Goal 3: Pt to improve B LE strength to 4/5 grossly for ease with work tasks. Residential Goal 4: Pt to improve lumbar flexion/ext by 10* or more and sidebend by 10* for ease withbending/twisting. Residential Goal 5: Pt to improve Oswestry score [...] Date: 01/19/2025 Physician Signature documented in this encounterBon [facility]zer [facility]05-09-2025 Telephone encounter Note* Telephone Encounter - Torito Rosa - 01/16/2025 1:54 PM EDT Images in epic PLAN: 1. Medication: Continue current medications. 2. Test(s)/Imaging/Referral(s): None. 3. Intervention: we have discussed with her the findings on imaging and likely diagnosis.Se is aware that she needs to get her MRI images to the office for review and then we can decide if she would benefit from labral repair vs conservative management until eventual arthroplasty. 4. Follow-up: PRN. [facility]04-[facility]25 NoteHNO ID: [id number] Author: DENIZ ENCARNACION MD Service: ? Author [...] the patient's assessment and treatment recommendations. Deniz Encarnacion, [facility]04-30-2025 History of Present illness Narrative* Deniz Encarnacion MD - 01/07/2025 12:03 PM EDT I have reviewed the history and physical obtained by my resident or fellow. HPI explored in detail with the patient. Pt was seen by me and swanson findings were confirmed. I agree with the findings as documented. I personally participated the patient's assessment and treatment recommendations. Deniz Encarnacion MD * Valeria Zarate MD - 01/07/2025 11:06 AM EDT Images from the original note were not included. DEPARTMENT OF ORTHOPAEDICS Consultation as a request of self. Chief Complaint: Right hip pain HISTORY OF PRESENT ILLNESS: This is a pleasant 39 year old female, who presents today with a chief complaint of right hip pain. 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 No past surgical history on file. Current Outpatient Medications Medication Sig Dispense Refill pregabalin (LYRICA) 50 mg capsule Take 1 capsule by mouth three times a day for 90 days. 90 capsule2 Yutyq-8-ECI-EPA-Fish Oil (FISH OIL) 1,000 (120-180) mg cap [...] PRN. Valeria Zarate MD Sports Medicine/Orthopaedic Surgery documented in this encounterMemorial Hospital04-30-2025 NoteHNO ID: [id number] Author: VALERIA ZARATE MD Service: ? 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 No past surgical history on file. Current Outpatient Medications Medication Sig Dispense Refill pregabalin (LYRICA) 50 mg capsule Take 1 capsule by mouth three times a day for 90 days. 90 capsule 2 Mvbgs-9-JVN-EPA-Fish Oil (FISH OIL) 1,000 (120-180) mg cap [...] Follow-up: PRN. Valeria Zarate MD Sports Medicine/[facility]thopa[facility]Ohio[facility]04-28-2025 Instructions* Patient Instructions* Uriel Guzmán MD - 01/05/2025 3:21 PM EDT Ha Encarnacion documented in this encounterMemorial Hospital04-28-2025 NoteHNO ID: [id number] Author: URIEL GUZMÁN MD Service: ? Author Type: Physician Type: Progress Notes Filed: 01/05/2025 15:26 Note Text: CONSULT ORTHOPAEDIC: HIP PRIMARY CARE PHYSICIAN: No primary care provider on file. REFERRING PROVIDER: Johnathan Haas [address] [facility] [address] ASSESSMENT AND PLAN Impression: Right hip and [...] Never Substance Use Topi (more content not included)...[facility] 01-05-2025 History of Present illness Narrative* Uriel Guzmán MD - 01/05/2025 3:06 PM EDT Images from the original note were not included. CONSULT ORTHOPAEDIC: HIP PRIMARY CARE PHYSICIAN: No primary care provider on file. REFERRING PROVIDER: Johnathan Haas [address] [facility] [address] ASSESSMENT & PLAN Impression: Right hip and [...] at discharge for a Primary total Hip replacement.Ashlee's estimated Length of Stay is . Ashlee's [...] no height and/or weight reading in the [id number] days, so the below BMI readings may [...] pose a significant risk for bone loss, andif so, recommend ordering a bone densitometry and, upon receiving a result, as needed, order a consult to a bone health specialist (Rheumatology, Endocrinology, or Women's Health) for bone assessment. Risk Factors: Use of Proton Pump Inhibitors Additional Risk Factors Malnutrition: No Malnutrition Screening Tool (MST) score on file- please complete the MST screeningtool (click here to open) and refresh the [...] three times a day for 90 days. Igiuw-0-CNT-EPA-Fish Oil (FISH OIL) 1,000 (120-180) mg cap [...] 2025 TIME: 3:07 PM documented in this encounterMemorial Hospital04-28-2025 Instructions* Patient Instructions* Rishabh Huang MD - 01/05/2025 2:48 PM [...] This prescription has been sent to your [facility] pharmacy in [place]. Please note that Lyrica is a controlled medication in [place]. - Follow up with my PA, Yessica, in 3 months to assess how you are doing with Lyrica. We discussed physical therapy: - I recommend starting aqua therapy, as it can reduce the strain on your body while allowing you tomove more comfortably. This can help improve your [...] any questions or concerns. documented in this encounterMemorial Hospital04-28-2025 History of Present illness Narrative* Naldo Ramirez RT(R) - 01/05/2025 2:30 PM EDT Radiology Service Progress Note PATIENT NAME: Ashlee [...] Assigned female at . status: : No status:NO. PATIENT RELEVANT IMPLANT DATA REVIEWED: Not Applicable PATIENT PRESENTS WITH AN IMPLANTABLE OR ATTACHED INTERNAL MEDICINE PHYSICIAN ASSISTANT: No RADIOLOGY DEPARTMENT: General X-ray: Exam(s) Completed: Pelvis X-Ray: Pelvis with Hip Right PERIPHERAL IV DATA: Not applicable SIGNED BY: RT Evans(R) January 05, 2025 1:53 PM documented in this encounterMemorial Hospital04-28-2025 NoteHNO ID: [id number] Author: NALDO RAMIREZ RT(Franca) Service: Radiology Author [...] PATIENT PRESENTS WITH AN IMPLANTABLE OR ATTACHED INTERNAL MEDICINE PHYSICIAN ASSISTANT: No RADIOLOGY DEPARTMENT: General X-ray: Exam(s) Completed: Pelvis X-Ray: Pelvis with Hip Right PERIPHERAL IV DATA: Not applicable SIGNED BY: RT Evans(R) January 05, 2025 1:53 [facility]04-28-2025 History of Present illness Narrative* Rishabh Huang MD - 01/05/2025 2:00 PM EDT Images from the original note were not included. [facility] Consultation Date: January 05, 2025 - Referring physician: Johnathan Haas [address] [place], [place] [address] [facility] [address] Ashlee Jalloh is seen in consultation requested [...] widespread musculoskeletal pain, accompanied by fatigue, sleep, memoryin mood issues. In general it is thought [...] history, ros, physical exam, and prior workup Ihave a low degree of suspicion for small-vessel vasculitis as the etiology of her present nasal septal perforation. However to more comprehensively rule out a systemic vasculitis we pursued additional serologic testing. In terms of the patient's ongoing arthritic symptoms it is concerning that she has had lumbar spineabnormalities and sacroiliac pain chronically at a relatively young age. It seems from review of her outside charting in her previous imaging there was not definitive evidence of an inflammatory arthritis. However there was not a dedicated sacroiliac imaging that was done in the recent past. As such today we pursued plain film imaging of the sacroiliac joints to better characterize her ongoing SIjoint pain. The results of her recent work up were within normal limits. She had evidence of degenerative arthritis but no definitive evidence of a systemic autoimmune condition or inflammatory arthritis. We diddiscuss the possibility that her ongoing chronic pain [...] medication tolerance Consults/Referrals: -c[facility] with [facility] -Recommended that she reach out to [...] tingling and headaches. Negative for tremors, sensory change,speech change, focal weakness, seizures, loss of consciousness [...] the note after review of the complete reportand/or the images. Those areas highlighted in red [...] Diagnoses of Diffuse pain, Back pain with historyof spinal surgery, Status post lumbar spinal fusion, [...] as migraines. A spine x-ray revealed a fusionof the tailbone and spine, initially suspected to [...] her spine is bulged, and her previous manager laboratory indicated that she might need multiple surgeries in the future, depending on her body's response. Ashlee has tried various medications, including gabapentin at a low dose of 100 mg once daily for 5 days, prescribed by Jos Millan, without relief. She reports being highly sensitive to medications,experiencing dizziness and episodes of conscious blackouts where [...] expresses interest in it. She lives in [place], about an hour [place] a half away, making frequent visits challenging. Ashlee has a history of severe depression and has been flagged as a suicide risk. She attempted suicide twice at age 14 and has a history of s, elf-harm. She is not currently seeing a psychiatrist buthas a referral pending. She reports that her [...] long standing history of widespread pain and hypersensitivityto touch. Pain is exacerbated by various factors including weather, stress, and physical activity. Patient has tried some neuropathic agents and has a history of poor medication tolerance. Chronic pain is significantly impacting quality of life and mental health. - Educated patient on the nature of fibromyalgia, emphasizing the importance of a multidisciplinaryapproach to management. - Initiated Lyrica 50 mg [...] with patient. The patient is in agreement withthe above and verbalized understanding. Rishabh Huang MD [...] tape, tears skin and welts Current Medications: Uucvp-2-ZAK-EPA-Fish Oil (FISH OIL) 1,000 (120-180) mg cap [...] Marital Status: Unknown Medical Decision Making The [facility] EMR was reviewed during the visit [...] Level: 4 - Moderate documented in this encounterMemorial Hospital04-28-2025 NoteHNO ID: [id number] Author: RISHABH HUANG MD Service: ? Author Type: Physician Type: Progress Notes Filed: 01/05/2025 15:00 Note Text: [facility] Consultation Date: January 05, 2025 - Referring physician: Johnathan Haas [address] [facility] [address] Ashlee Jalloh is seen in consultation requested [...] -She is on naproxen (more content not included)...[facility] 12-19-2024 Telephone encounter Note* Telephone Encounter - Johnathan Haas MD - 12/19/2024 4:29 PM EDT letter in [facility] fax [facility] Work Phone: [phone] Miscellaneous Notes* Telephone Encounter - Johnathan Haas MD - 12/19/2024 4:29 PM EDT letter in [facility] Please fax * Telephone Encounter - Patricia Salazar - 12/17/2024 8:59 AM EDT Ashlee is calling Johnathan Haas MD today asking for a work noted from when she was seen on 12/15 to be faxed over to her work. F: [phone] Attn: Michael Patient has been identified by name and birthdate. Duration of symptoms: N/A Person calling: self Call patient at: at home [phone] (home) Was an appointment scheduled: No Closing statement: Results or non-symptom based questions: Thank you for calling [facility], your call will be returned within the next business day. Patricia Salazar documented in this encounterMemorial Hospital04-11-2025 Hospital Discharge instructions* Discharge Instructions* Guera Coyne PA-C - 12/19/2024 1:04 PM EDT Try heat/ice, rest, and stretch. You can take Tylenol in addition to the prescribed medication. Thank you for choosing us for your care today. You may receive a survey after your visit and I appreciate your feedback Guera Coyne PA-C * Attachments The following attachments cannot be sent through Care Everywhere. * Back Pain (Dominican) [facility] in [facility] Telephone encounter Note* Telephone Encounter - Heidy Nunez RN - 12/18/2024 12:59 PM EDT Called and left message for patient. Informed [...] any questions about your appointment, please call [phone] and ask for pain management. Thank You, The [facility]04-10-[facility] Miscellaneous Notes* Telephone Encounter - Heidy Nunez RN - 12/18/2024 12:59 PM EDT Called and left message for patient. Informed [...] any questions about your appointment, please call [phone] and ask for pain management. Thank You, The Pain Management Office documented in this encounterMemorial Hospital04-09-2025 Telephone encounter Note * Telephone Encounter - Patricia Salazar - 12/17/2024 8:59 AM EDT Ashlee is calling Johnathan Haas MD today asking for a work noted from when she was seen on 12/15 to be faxed over to her work. F: [phone] Attn: Michael Patient has been identified by name and birthdate. Duration of symptoms: N/A Person calling: self Call patient at: at home [phone] (home) Was an appointment scheduled: No Closing statement: Results or non-symptom based questions: Thank you for calling [facility], your call will be returned within the next business day. [facility]04-07-2025 NoteHNO ID: [id number] Author: JOHNATHAN HAAS MD Service: ? 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 Current Outpatient Medications Medication Sig Gqlaj-5-ZKK-EPA-Fish Oil (FISH OIL) 1,000 (120-180) mg cap [...] evaluation notes no s (more content not included)...[facility]04-07-2025 History of Present illness Narrative* Johnathan Haas MD - 12/15/2024 2:42 PM EDT [facility] Self-referral Complains of whole spine [...] tear would like to see orthopedic at [facility] Chronic depression PTSD would like to establish with psych at [facility] No recent injury or fall She [...] been present for several year(s). The onset ofsymptoms was gradual and progressive. 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 Current Outpatient Medications Medication Sig Kkuqe-9-IRV-EPA-Fish Oil (FISH OIL) 1,000 (120-180) mg cap [...] exam revealed no open lesions, the surgical incisionis clean dry and intact. HEENT reveals no [...] tension signs are absent. Lumbar range of motionis grossly limited in all planes. Painful arc of motion is present in low back. Muscle exam noted no atrophy, fasciculation or dystonia. Deep palpation tenderness was bilateral lower lumbar paraspinal muscles bilateral SIJ muscle stretch reflexes are present and symmetric throughout. DIAGNOSTIC DATA no images for review results reviewed from care everywhere no recent spine workup CT LUMBAR SPINE WO IVCON Order: [id number] Impression 1. No acute findings in the [...] coordination This note was partially generated using Eximia voice recognition system, and there may be some incorrect words, spellings, and punctuation that were not noted in checking the note before saving Johnathan Haas MD documented in this encounterMemorial Hospital03-26-2025 Hospital Discharge instructions* Discharge Instructions* Catherine Calvillo MD - 12/03/2024 3:06 PM EDT Start Medrol Dosepak tomorrow take as directed until complete. Use 4 hours as needed for spasms. Heat or ice for 5 to 10-minute intervals as desired for comfort. May use zisq-nvf-zockfjh product suchas IcyHot Biofreeze or similar as needed and directed. Follow-up with your primary care provider in3 to 5 days for recheck. Please return immediately should you develop any worsening symptoms or anyother acute concerns * Attachments The following attachments cannot be sent through Care Everywhere. * Numbness and Tingling (Dominican) * Cervical Strain (Dominican) documented in [facility]In[facility]-27-[facility] Evaluation + Plan note Diagnostic Tests Pending * T3 Free 10/06/24 Future Scheduled Tests Radiology* XR Spine Lumbosacral Minimum 4 Views 11/07/23 [facility] [id number] Evaluation + Plan note* Assessment & Plan Note - Kelly Thomas MD - 10/02/2024 10:16 AM ESTAssociated Problem(s): Raynaud's disease without gangrene Recommended to discontinue her phentermine if possible and conservative management of her Raynaud's. [facility] Mindie [id number] Miscellaneous Notes* Assessment & Plan Note - Kelly Thomas MD - 10/02/2024 10:16 AM ESTAssociated Problem(s): Raynaud's disease without gangrene Recommended to discontinue her phentermine if possible and conservative management of her Raynaud's. documented in this encounterMagruder Memorial Hospital01-23-2025 History of Present illness Narrative* Kelly Thomas MD - 10/02/2024 10:00 AM EST Images from the original note were not included. To: TIFFANY TEJEDA, JAVA SCALA DEVELOPER-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 HPI: Ashlee Jalloh is a 39 y.o. female with Raynaud's phenomena. Seems like she has background of Raynaud's in addition to neuropathy from her recent spine surgery and autonomic neuropathy and also medication induced Raynaud's from her phentermine. Discussed with her the diagnosis preventive measure and different treatment strategies. We will start with conservative measures first and see how shedoes. Follow-up in about 6 months.. Review of [...] nasal spray Administer 2 sprays into each nostrilin the morning. 16 g 5 multivit-minerals/folic acid [...] Resource Strain: Patient Declined (02/22/2023) [facility] Overall Financial Resource Strain (CARDIA) Difficulty of Paying Living Expenses: Patient declined Food Insecurity: No Food Insecurity (10/02/2024) Hunger Screening Food Insecurity - Worry: Never True Food Insecurity - Inability: Never True Transportation Needs: No Transportation Needs (08/24/2023) [facility] PRAPARE - Transportation Lack of Transportation (Medical): No Lack of Transportation (Non-Medical): No Physical Activity: Not on file Stress: Not on file Social Connections: Not on file Interpersonal Safety: Not on file Housing Instability: Unknown (08/24/2023) Re[facility] from [facility] Housing Stability Vital Sign Unable to [...] without gangrene Cold feet - [facility] [place], [place] Discoloration of skin of foot - [facility] [place] [place] Kelly Thomas MD, ARASELI, RPVI, FSVS, FACS [...] you for your understanding. documented in this encounterMagruder Memorial Hospital2025 History of Present illness Narrative* JESSIE Nye - 09/17/2024 8:45 AM EST ADULT RHEUMATOLOGY CLINIC NOTE [address] [address] Patient Name: Ashlee Jalloh Subjective Ashlee Jalloh is a 39 y.o. female who presents for a follow up visit fater evaluation with to have further discussion on fibromyalgia Widespread [...] infections as a pediatric patient. 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 Most recently the patient noted that she was having some nosebleeds and nasal crusting and was evaluated by her ENT provider was found to have nasal septal perforation. Patient also has a longstanding history of arthritis symptoms in multiple different locations. She did see a previous manager laboratory at [facility] in September of 2023. At that time there was a concern for possible ankylosing spondylitis and she had a comprehensive evaluation in their office where this condition was eventually ruled out. It seems that her previous manager laboratory did review her spine imaging in detail [...] hip surgery with an Orthopedic provider in [place] is no longer going to occur due [...] nasal spray Administer 2 sprays into each nostrilin the morning. (Patient not taking: Reported on [...] past medical history, past social history, past surgicalhistory and problem list. The following portions of the patient's history were reviewed and updated as appropriate: allergies, current medications, past family history, past medical history, past social history, past surgicalhistory and problem list. Objective Physical Exam: BP [...] was no evidence of bilateral ankle effusion orsynovitis in the bilateral feet. The patient has [...] the homunculus. Go to the Rheumatology activity andcomplete the homunculus joint exam. DOMINIQUE-28 (CRP): -- [...] widespread musculoskeletal pain, accompanied by fatigue, sleep, memoryin mood issues. In general it is thought [...] history, ros, physical exam, and prior workup Ihave a low degree of suspicion for small-vessel vasculitis as the etiology of her present nasal septal perforation. However to more comprehensively rule out a systemic vasculitis we pursued additional serologic testing. In terms of the patient's ongoing arthritic symptoms it is concerning that she has had lumbar spineabnormalities and sacroiliac pain chronically at a relatively young age. It seems from review of her outside charting in her previous imaging there was not definitive evidence of an inflammatory arthritis. However there was not a dedicated sacroiliac imaging that was done in the recent past. As such today we pursued plain film imaging of the sacroiliac joints to better characterize her ongoing SIjoint pain. The results of her recent work up were within normal limits. She had evidence of degenerative arthritis but no definitive evidence of a systemic autoimmune condition or inflammatory arthritis. We diddiscuss the possibility that her ongoing chronic pain [...] medication tolerance Consults/Referrals: -c[facility] with [facility] -Recommended that she reach out to her PCP and pursue a GI referral to get more definitive evaluation for her frequent diarrhea and occasional blood in stools Health Maintenance: -The patient should continue to follow with their PCP for age and risk factor appropriate cancer screening and immunizations. Follow-up: -11-12 weeks to review response to medications CALVIN LockhartC [facility] [address] [address] Total aczr-nt-assu time was 30 minutes with more than 50% of the visit spent counseling and discussing diagnostic or treatment recommendations, prognosis, risks and benefits of management options, instructions, compliance or risk- factor reduction. This note was created with the assistance of a speech recognition program. While intending to generate a timely document that accurately reflects the content of the visit, no guarantee can be provided that every grammatical or spelling mistake has been or will be identified or corrected. Thank you for your understanding. JESSIE Nye 09/17/24 1000 documented in this encounterMagruder Memorial Hospital11-27-2024 History of Present illness Narrative* Shirin Nath MD MPH - 08/06/2024 2:45 PM EST ADULT RHEUMATOLOGY CLINIC NOTE [address] [facility] [address] [facility] [address] Patient Name: Ashlee Jalloh Subjective [...] infections as a pediatric patient. 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 Most recently the patient noted that she was having some nosebleeds and nasal crusting and was evaluated by her ENT provider was found to have nasal septal perforation. Patient also has a longstanding history of arthritis symptoms in multiple different locations. She did see a previous manager laboratory at [facility] in September of 2023. At that time there was a concern for possible ankylosing spondylitis and she had a comprehensive evaluation in their office where this condition was eventually ruled out. It seems that her previous manager laboratory did review her spine imaging in detail [...] hip surgery with an Orthopedic provider in [place] is no longer going to occur due [...] by mouth every 12 (twelve) hours as neededfor anxiety for up to 5 doses. (Patient [...] nasal spray Administer 2 sprays into each nostrilin the morning. (Patient not taking: Reported on 03/06/2024) 16 g 5 insulin NPH (HumuLIN N,NovoLIN N) 100 unit/mL injection Inject 5 Units under the skin 2 (two) timesa day before meals. (Patient not taking: Reported [...] past medical history, past social history, past surgicalhistory and problem list. The following portions of the patient's history were reviewed and updated as appropriate: allergies, current medications, past family history, past medical history, past social history, past surgicalhistory and problem list. Objective Physical Exam: BP [...] was no evidence of bilateral ankle effusion orsynovitis in the bilateral feet. The patient has [...] the homunculus. Go to the Rheumatology activity andcomplete the homunculus joint exam. DOMINIQUE-28 (CRP): -- [...] history, ros, physical exam, and prior workup Ihave a low degree of suspicion for small-vessel vasculitis as the etiology of her present nasal septal perforation. However to more comprehensively rule out a systemic vasculitis we pursued additional serologic testing. In terms of the patient's ongoing arthritic symptoms it is concerning that she has had lumbar spineabnormalities and sacroiliac pain chronically at a relatively young age. It seems from review of her outside charting in her previous imaging there was not definitive evidence of an inflammatory arthritis. However there was not a dedicated sacroiliac imaging that was done in the recent past. As such today we pursued plain film imaging of the sacroiliac joints to better characterize her ongoing SIjoint pain. The results of her recent work up were within normal limits. She had evidence of degenerative arthritis but no definitive evidence of a systemic autoimmune condition or inflammatory arthritis. We diddiscuss the possibility that her ongoing chronic pain [...] possible management strategies Shirin Nath MD, MPH [facility] [address] [place] [address] Total ywii-hc-vlne time was 45 minutes with more than 50% of the visit spent counseling and discussing diagnostic or treatment recommendations, prognosis, risks and benefits of management options, instructions, compliance or risk- factor reduction. This note was created with the assistance of a speech recognition program. While intending to generate a timely document that accurately reflects the content of the visit, no guarantee can be provided that every grammatical or spelling mistake has been or will be identified or corrected. Thank you for your understanding. documented in this encounterMagruder Memorial Hospital11-27-2024 Instructions* Patient Instructions* Shirin Nath MD MPH - 08/06/2024 2:45 PM EST Fibromyalgia information from the [facility] Fat[facility]. Other information can be found at [email or web address] Fibromyalgia is a common health problem that [...] in intensity, and will wax and wane overtime. Stress often worsens the symptoms. WHAT CAUSES FIBROMYALGIA? The causes of fibromyalgia are unclear. They may be different in different people. Fibromyalgia mayrun in families. There likely are certain genes [...] fibromyalgia, it is as though the volume contro l is turned up too high in the [...] instance, hypothyroidism (underactive thyroid gland) and polymyalgia rheumaticasometimes mimic fibromyalgia. Yet, certain blood tests can tell if you have either of these problems. Sometimes, fibromyalgia is confused with rheumatoid arthritis or lupus. But, again, there is a difference in the symptoms, physical findings and blood tests that will help your health care providerdetect these health problems. Unlike fibromyalgia, these rheumatic diseases cause inflammation in th e joints and tissues. HOW IS FIBROMYALGIA TREATED? [...] daily with food. The dose can eventually beincreased up to a total of 120 mg per day as tolerated, taken either as a single night time dose orb.i.d. Begin Savella at 25 mg, slowly increasing the dose as tolerated to a maximum of 100mg daily (e.g. 50 mg b.i.d.). Both drugs may initially cause nausea, palpitations, and other noradrenergic side effects, so patients should be instructed that this may happen. These side effects usually resolve over time. Another class of medication with proven efficacy in fibromyalgia are the kzzhu-3-[id number] ligands, Neurontin (gabapentin) and Lyrica (pregabalin). This class of drug might be the best first choice for afibromyalgia patient with prominent sleep problems. Lyrica is specifically approved for fibromyalgia, at doses of both 300 and 450mg. For Neurontin, doses typically in the range of 1500 - 3000 mg arenecessary to treat pain. Both drugs are better tolerated if most or even all of the dose is taken at bedtime (e.g. 150 mg in the morning and 300 mg at night for Lyrica, or 600 mg in the morning and 1200 mg at night for Neurontin). Some of the other medications that can be helpful in some fibromyalgia patients are higher doses ofolder SSRIs such as Prozac, Zoloft, or Paxil. Dosages higher than those typically used for treatingdepression (e.g. 40 - 50 mg of Prozac) are often necessary as it appears that at these higher dosages the important noradrenergic activity of these drugs becomes more prominent. Gamma hydroxybutyrate(particularly in those with significant sleep problems) and [...] We have a website we strongly recommend [email or web address]. The website was developed by our colleagues [...] development of personalized symptom-management strategies. Workshops are conductedat the [facility], located [facility] the [facility] at the [facility] in [facility] (at the intersection of [address] and [address], just [address] The workshop is offered free of charge and friends and family members are welcome to attend. The current schedule is available at: [email or web address]. At the workshops, Dr. Casanova presents an [...] the recommended self-management techniques, participants are given aworkbook. This workbook contains materials from a university-based cognitive behavioral therapy program and guidelines geared to improving motivation and adherence. The workbook describes a variety of behavioral skills/strategies such as: stress management techniques, effective methods of communication and relaxation, improving function through conscious activity pacing, sleep hygiene and compensatory strategies for concentration/memory difficulties. documented in this encounterMagruder Memorial Hospital11-20-2024 History of Present illness Narrative* Faizan Delgado, MIXING TANK OPERATOR - 07/30/2024 9:00 AM EST [facility] Inpatient/Observation/Outpatient Rehabilitation Date: 07/30/2024 Patient Name: Ashlee Jalloh [] Inpatient Acute/Observation [x] Outpatient : 1985 [x] Pt no showed for scheduled appointment -Called Pt d/t missed appt with no answer. Left voicemail with clinic number and a reminder for next appt Sunday (08-01) at 1030. Faizan Delgado, MIXING TANK OPERATOR Date: 07/30/2024 documented in this [facility]In[facility] History of Present illness Narrative* Venessa Bonilla, MIXING TANK OPERATOR - 07/25/2024 9:30 AM EST [facility] Inpatient/Observation/Outpatient Rehabilitation Date: 07/25/2024 Patient Name: Ashlee Jalloh [] Inpatient Acute/Observation [x] Outpatient : 1985 [x] Pt no showed for scheduled appointment VM left for next scheduled appointment on 07/30/24 @9:00am. [x] As a reminder, pt was contacted/attempted contact via phone of upcoming appointments. Therapist/[employer] Tender will attempt to see this patient, at our earliest opportunity. Venessa Bonilla, MIXING TANK OPERATOR Date: 07/25/2024 documented in this encounterBon [facility] History of Present illness Narrative* Venessa Bonilla, MIXING TANK OPERATOR - 07/18/2024 9:30 AM EST [facility] Outpatient Physical Therapy Daily Note Patient: Ashlee Jalloh : 1985 CSN #: [id number] Referring Physician: Wayne Jesus MD Date: 07/18/2024 Treatment Diagnosis: B hip [...] B LE ther ex - and november 08# ankle weight, hip add with ball, hip abd with Story TB x20 ea Exercise 10: Piriformis and 4 point stretch 3x20 (manually today) Exercise 11: sit to stands x10 Modality: MHP applied to B hips to reduce pain/soreness Assessment Assessment: Patient reports R hip popping out with postitional changes this date. Patient displays slow and guarded movements throughout session due to high levels of pain. Added seated ther ex on PBwith good tolerance this date, verbal and tactile [...] to improve function with ADL's. - MET Printed Forms Proofreader Goals Time Frame for Printed Forms Proofreader Goals : 6 weeks Printed Forms Proofreader Goal 1: Pt will independant and compliant with HEP to maintain functional gains made at therapy. Residential Goal 2: Pt will report 2/10 or less B hip pain on average to facilitate completion of ADL's. Residential Goal 3: Pt to improve B hip strength to 4/5 with minimal pain for ease with prolonged ambulation and standing at work. Residential Goal 4: Pt to improve B hip flexion: R 80*, L 90* to 110* or better w/o pain for ease with gait mechanics. Residential Goal 5: Pt to improve self report impairment from 80% to 20% or less for improved QOL. Minutes Tracking: Time In: 0940 Time Out: 1028 Minutes: 48 Timed Code Treatment Minutes: 48 Minutes Venessa Bonilla PTA Date: 07/18/2024 documented in this encounterBon [facility] [place]-06-2024 History of Present illness Narrative* Venessa Bonilla PTA - 07/16/2024 9:00 AM EST [facility] Inpatient/Observation/Outpatient Rehabilitation Date: 07/16/2024 Patient Name: Ashlee Jalloh [] Inpatient Acute/Observation [x] Outpatient : 1985 [x] Pt cancelled due to: [] No Reason Given [x] Sick/ill Therapist/[employer] Tender will attempt to see this patient, at our earliest opportunity. Venessa Bonilla, MIXING TANK OPERATOR Date: 07/16/2024 documented in this encounterBon [facility] [place]-01-2024 History of Present illness Narrative* Diann Tao, MIXING TANK OPERATOR - 07/11/2024 9:45 AM EDT [facility] Outpatient Physical Therapy Daily Note Patient: Ashlee Jalloh : 1985 CSN #: [id number] Referring Physician: Wayne Jesus MD Date: 07/11/2024 Diagnosis: M25.551 pain in [...] which is worse at the moment. Pt statesthe pain sometimes it feels that it is [...] 9: seated B LE ther ex - Q and november 08# ankle weight, hip add with ball, hip abd with Story TB x20 ea- no weight today Exercise [...] mild tightness relief. Discussed pool therapy with pt,PT and pt agreeable to trial pool therapy [...] to improve function with ADL's. - MET Residential Goals Time Frame for Residential Goals : 6 weeks Printed Forms Proofreader Goal 1: Pt will independant and compliant with HEP to maintain functional gains made at therapy. Residential Goal 2: Pt will report 2/10 or less B hip pain on average to facilitate completion of ADL's. Residential Goal 3: Pt to improve B hip strength to 4/5 with minimal pain for ease with prolonged ambulation and standing at work. Residential Goal 4: Pt to improve B hip flexion: R 80*, L 90* to 110* or better w/o pain for ease with gait mechanics. Printed Forms Proofreader Goal 5: Pt to improve self report impairment from 80% to 20% or less for improved QOL. Minutes Tracking: Time In: 947 Time Out: 1043 Minutes: 55 Diann Tao PTA Date: 07/11/2024 * Malaika Hernández, PT - 07/11/2024 9:45 AM EDT [facility] Outpatient Physical Therapy Date: 07/11/2024 Patient: Ashlee Jalloh : 1985 CSN #: [id number] Referring Physician: Wayne Jesus MD [] Plan of Care [x] Updated [...] stagnant. Plan to trial aquatic therapy to buildstrength in an offloaded environment. Pt would continue to benefit from skilled therapy to restore strength and functional mobility for improved QOL. Goals Short Term Goals Time Frame for Short Term Goals: 2 weeks Short Term Goal 1: Pt will be inititated with HEP.- MET Short Term Goal 2: Pt will tolerate 30-40 minutes of ther ex to improve function with ADL's. - MET Printed Forms Proofreader Goals Time Frame for Printed Forms Proofreader Goals : 6 weeks Residential Goal 1: Pt will independant and compliant with HEP to maintain functional gains made at therapy. Residential Goal 2: Pt will report 2/10 or less B hip pain on average to facilitate completion of ADL's. Printed Forms Proofreader Goal 3: Pt to improve B hip strength to 4/5 with minimal pain for ease with prolonged ambulation and standing at work. Residential Goal 4: Pt to improve B hip flexion: R 80*, L 90* to 110* or better w/o pain for ease with gait mechanics. Residential Goal 5: Pt to improve self report [...] [] Vasopneumatic Compression Electronically signed by: MALAIKA HERNÁNDEZ, PT, DPT Date: 07/11/2024 Date: 07/11/2024 Physician Signature documented in this encounterBon [facility] [place]10-18-2024 History of Present illness Narrative* Venessa Bonilla, MIXING TANK OPERATOR - 06/27/2024 9:30 AM EDT [facility] Outpatient Physical Therapy Daily Note Patient: Ashlee Jalloh : 1985 CSN #: [id number] Referring Physician: Wayne Jesus MD Date: 06/27/2024 Treatment Diagnosis: B hip pain/weakness Onset Date: 02/14/19 PT Insurance Information: [employer] Total # of Visits Approved: 16 Per Physician Order Total # of Visits to Date: 5 No Show: 0 Canceled Appointment: 0 07/11/24 Plan of Care/Recert Due Pre-Treatment Pain: -8 Subjective: Patient reports B hip pain is same as always, -04/19. Patient reports falling at work the other [...] hip add with ball, hip abd with Story TB x20 ea Assessment Assessment: Patient tolerated [...] pt required further clarification. Post Treatment Pain: 7-8/10 - pt states everything feels numb Plan Plan Frequency: 2 Plan weeks: 8 Goals (Total # of Visits to Date: 5) Short Term Goals Time Frame for Short Term Goals: 2 weeks Short Term Goal 1: Pt will be inititated with HEP.- MET Short Term Goal 2: Pt will tolerate 30-40 minutes of ther ex to improve function with ADL's. - MET Residential Goals Time Frame for Printed Forms Proofreader Goals : 6 weeks Residential Goal 1: Pt will independant and compliant with HEP to maintain functional gains made at therapy. Printed Forms Proofreader Goal 2: Pt will report 2/10 or less B hip pain on average to facilitate completion of ADL's. Residential Goal 3: Pt to improve B hip strength to 4/5 with minimal pain for ease with prolonged ambulation and standing at work. Printed Forms Proofreader Goal 4: Pt to improve B hip flexion: R 80*, L 90* to 110* or better w/o pain for ease with gait mechanics. Residential Goal 5: Pt to improve self report impairment from 80% to 20% or less for improved QOL. Minutes Tracking: Time In: 0936 Time Out: 1015 Minutes: 39 Timed Code Treatment Minutes: 38 Minutes Venessa Bonilla PTA Date: 06/27/2024 documented in this encounterBon [facility]10-11-2024 History of Present illness Narrative* Malaika Hernández, PT - 06/20/2024 10:30 AM EDT [facility] Outpatient Physical Therapy Daily Note Patient: Ashlee Jalloh : 1985 CSN #: [id number] Referring Physician: Wayne Jesus MD Date: 06/20/2024 Treatment Diagnosis: B hip [...] step ups. PROM into hip flexion to ~90*before symptoms, supine abduction with light traction to [...] 6/10 Plan Plan Frequency: 2 Plan weeks: 8 Goals (Total # of Visits to Date: 3) Short Term Goals Time Frame for Short Term Goals: 2 weeks Short Term Goal 1: Pt will be inititated with HEP.- MET Short Term Goal 2: Pt will tolerate 30-40 minutes of ther ex to improve function with ADL's. - MET Printed Forms Proofreader Goals Time Frame for Printed Forms Proofreader Goals : 6 weeks Printed Forms Proofreader Goal 1: Pt will independant and compliant with HEP to maintain functional gains made at therapy. Printed Forms Proofreader Goal 2: Pt will report 2/10 or less B hip pain on average to facilitate completion of ADL's. Printed Forms Proofreader Goal 3: Pt to improve B hip strength to 4/5 with minimal pain for ease with prolonged ambulation and standing at work. Residential Goal 4: Pt to improve B hip flexion: R 80*, L 90* to 110* or better w/o pain for ease with gait mechanics. Residential Goal 5: Pt to improve self report impairment from 80% to 20% or less for improved QOL. Minutes Tracking: Time In: 1030 Time Out: 1114 Minutes: 44 Timed Code Treatment Minutes: 42 Minutes MALAIKA HERNÁNDEZ PT, DPT Date: 06/20/2024 documented in this encounterBon [facility]10-04-2024 History of Present illness Narrative* Malaika Hernández PT - 06/13/2024 8:00 AM EDT [facility] Outpatient Physical Therapy Evaluation Date: 06/13/2024 Patient: Ashlee Jalloh : 1985 CSN #: [id number] Referring Physician: Wayne Jesus MD Medical Diagnosis: M25.551 pain in R hip, S73.191A sprain of right hip Treatment Diagnosis: B hip pain/weakness Onset Date: 02/14/19 PT Insurance Information: [employer] Total # of Visits Approved: 16 Total # of Visits to Date: 1 No Show: 0 Canceled Appointment: 0 [x] This caption writer acknowledges review of patient history form Subjective Subjective: Pt reports having B hip pain. Was supposed to have surgery on the R hip but was cancledd/t insurance. Pt reports L hip is more [...] PROM to 80* before increased guarding from ptand 90* on L before guarding. Pt demos [...] ther ex to improve function with ADL's. Residential Goals Time Frame for Printed Forms Proofreader Goals : 6 weeks Residential Goal 1: Pt will independant and compliant with HEP to maintain functional gains made at therapy. Printed Forms Proofreader Goal 2: Pt will report 2/10 or less B hip pain on average to facilitate completion of ADL's. Residential Goal 3: Pt to improve B hip strength to 4/5 with minimal pain for ease with prolonged ambulation and standing at work. Residential Goal 4: Pt to improve B hip flexion: R 80*, L 90* to 110* or better w/o pain for ease with gait mechanics. Printed Forms Proofreader Goal 5: Pt to improve self report impairment from 80% to 20% or less for improved QOL. Minutes Tracking: Time In: 0810 Time Out: 0848 Minutes: 38 Timed Code Treatment Minutes: 36 Minutes MALAIKA HERNÁNDEZ PT, DPT 06/13/2024 * Malaika Hernández PT - 06/13/2024 8:00 AM EDT [facility] Outpatient Physical Therapy Date: 06/13/2024 Patient: Ashlee Jalloh : 1985 CSN #: [id number] Referring Physician: Wayne Jesus MD [x] Plan of Care [] Updated [...] PROM to 80* before increased guarding from ptand 90* on L before guarding. Pt demos [...] ther ex to improve function with ADL's. Printed Forms Proofreader Goals Time Frame for Residential Goals : 6 weeks Residential Goal 1: Pt will independant and compliant with HEP to maintain functional gains made at therapy. Residential Goal 2: Pt will report 2/10 or less B hip pain on average to facilitate completion of ADL's. Residential Goal 3: Pt to improve B hip strength to 4/5 with minimal pain for ease with prolonged ambulation and standing at work. Printed Forms Proofreader Goal 4: Pt to improve B hip flexion: R 80*, L 90* to 110* or better w/o pain for ease with gait mechanics. Printed Forms Proofreader Goal 5: Pt to improve self report [...] Date: 06/13/2024 Physician Signature documented in this encounterBON [facility] History of Present illness Narrative* Rebeca Holloway LPN - 06/09/2024 10:10 AM EDT Reason for Appointment: Patient ID: Ashlee Jalloh [...] nursing note reviewed. Exam conducted with a secy present. Vitals: Estimated body mass index is [...] of: Tommie Mccann DO documented in this encounterBothwell Regional Health [id number] Miscellaneous Notes* Telephone Encounter - Madalyn Pinon CMA - 05/15/2024 8:46 AM EDT [facility] called and stated that the patient no longer goes to them. Wanted to give an update because they received a fax of office notes that were sent over for the patient. documented in this encounterMagruder [facility] Hospital09-05-2024 Telephone encounter Note* Telephone Encounter - Madalyn Pinon CMA - 05/15/2024 8:46 AM EDT [facility] called and stated that the patient no longer goes to them. Wanted to give an update because they received a fax of office notes that were sent over for the patient. [facility]09-04-20[facility] History of Present illness Narrative* Shirin Nath MD MPH - 05/14/2024 3:15 PM EDT Images from the original note were not included. ADULT RHEUMATOLOGY CLINIC NOTE [id number] [address] Patient Name: Ashlee Jalloh Subjective Reason for [...] infections as a pediatric patient. 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 Most recently the patient noted that she was having some nosebleeds and nasal crusting and was evaluated by her ENT provider was found to have nasal septal perforation. Patient also has a longstanding history of arthritis symptoms in multiple different locations. She did see a previous manager laboratory at [facility] in September of 2023. At that time there was a concern for possible ankylosing spondylitis and she had a comprehensive evaluation in their office where this condition was eventually ruled out. It seems that her previous manager laboratory did review her spine imaging in detail [...] by mouth every 12 (twelve) hours as neededfor anxiety for up to 5 doses. (Patient [...] nasal spray Administer 2 sprays into each nostrilin the morning. (Patient not taking: Reported on 03/06/2024) 16 g 5 insulin NPH (HumuLIN N,NovoLIN N) 100 unit/mL injection Inject 5 Units under the skin 2 (two) timesa day before meals. (Patient not taking: Reported [...] past medical history, past social history, past surgicalhistory and problem list. The following portions of the patient's history were reviewed and updated as appropriate: allergies, current medications, past family history, past medical history, past social history, past surgicalhistory and problem list. Objective Physical Exam: BP [...] was no evidence of bilateral ankle effusion orsynovitis in the bilateral feet. The patient has [...] the homunculus. Go to the Rheumatology activity andcomplete the homunculus joint exam. DOMINIQUE-28 (CRP): -- [...] history, ros, physical exam, and prior workup Ihave a low degree of suspicion for small-vessel vasculitis as the etiology of her present nasal septal perforation. However to more comprehensively rule out a systemic vasculitis we will pursue additional serologic testing. In terms of the patient's ongoing arthritic symptoms it is concerning that she has had lumbar spineabnormalities and sacroiliac pain chronically at a relatively young age. It seems from review of her outside charting in her previous imaging there was not definitive evidence of an inflammatory arthritis. However there was not a dedicated sacroiliac imaging that was done in the recent past. As such today I will pursue plain film imaging of the sacroiliac joints to better characterize her ongoingSI joint pain. However, it is certainly possible [...] Follow-up: -12 weeks Shirin Nath MD, MPH [facility] [address] [place] [address] Total [id number] time was 45 minutes with more than 50% of the visit spent counseling and discussing diagnostic or treatment recommendations, prognosis, risks and benefits of management options, instructions, compliance or risk- factor reduction. This note was created with the assistance of a speech recognition program. While intending to generate a timely document that accurately reflects the content of the visit, no guarantee can be provided that every grammatical or spelling mistake has been or will be identified or corrected. Thank you for your understanding. documented in this encounterMagruder Memorial Hospital06-27-2024 History of Present illness Narrative* Jarred Carter MD - 03/06/2024 1:45 PM EDT [facility] - ENT [address] [place] [address], [address] [facility] [id number] SUBJECTIVE: Patient ID: Ashlee Jalloh is a 39 y.o. female presents today for Chief Complaint Patient presents with hole in nasal septum HPI: The patient is a 39-year-old female last seen in the office on January 09, 2024. She presented witha left otitis externa. She also had sinus and nasal issues. Since her last visit she has developed a septal perforation. She has some dryness and crusting in her nose. She has never had any previous nasal surgery. She does not use cocaine. She has has seen a manager laboratory in the past for her osteoarthritis. She currently is not seeing a manager laboratory. She is here for evaluation. HISTORY: Past [...] Resource Strain: Patient Declined (02/22/2023) [facility] Overall Financial Resource Strain (CARDIA) Difficulty of Paying Living Expenses: Patient declined Food Insecurity: No Food Insecurity (08/24/2023) Re[facility] Hunger Vital Sign Worried About Running Out of Food in the Last Year: Never true Ran Out of Food in the Last Year: Never true Transportation Needs: No Transportation Needs (08/24/2023) Re[facility] from [facility] PRAPARE - Transportation Lack of Transportation (Medical): No Lack of Transportation (Non-Medical): No Physical Activity: Not on file Stress: Not on file Social Connections: Not on file Interpersonal Safety: Not on file Housing Instability: Unknown (08/24/2023) Received from [facility] Housing Stability Vital Sign Unable to Pay for Housing in the Last Year: No Number of Places Lived in the Last Year: Not on file In the last 12 months, was there a time when you did not have a steady place to sleep or slept in [facility] (including now)?: No Allergies Allergen Reactions Nubain [...] by mouth every 12 (twelve) hours as neededfor anxiety for up to 5 doses. (Patient [...] nasal spray Administer 2 sprays into each nostrilin the morning. (Patient not taking: Reported on 03/06/2024) 16 g 5 insulin NPH (HumuLIN N,NovoLIN N) 100 unit/mL injection Inject 5 Units under the skin 2 (two) timesa day before meals. (Patient not taking: Reported [...] Normal floor of mouth, Normal oral mucosa, andNormal anterior tongue Oropharynx: Normal mucosa, Normal soft palate, Normal hard palate, Normal uvula, Tonsil hypertrophyright: 1+, Tonsil hypertrophy left: 1+, and Normal Vallecula Respiratory: No stridor, Normal respiratory effort and No use of accessory muscles Cardiovascular: Regular rate and Regular rhythm Neurologic: Patient is alert and oriented x3 with normal affect and grossly normal cranial nerves ASSESSMENT/PLAN: Ashlee was seen today for hole in nasal septum. Diagnoses and all orders for this visit: Nasal septum perforation - [facility] - [place], [place]; Future Osteoarthritis, unspecified osteoarthritis type, unspecified site - [facility] - [place], [place]; Future Plan: Patient with nasal septum perforation, previously seen in this office for chronic pansinusitis. She does endorse a history of osteoarthritis. Previous evaluation by Dr. Haley Gan, Rheumatology, was negative for Ankylosing Spondylitis. Demonstrated septal anatomy with diagrams in office. Recommended patient initiate Alkalol irrigations and provided her with printed information onhow to complete these. She can do this 3 times a day. She was also advised to avoid touching the area. A referral to Dr. Holden, [facility], was placed in office today for evaluation of herprevious history of osteoarthritis and due to her new finding of a septal perforation. I am concerned about the possibility of Swati's granulomatosis. Scribe Statement: Scribed for and in the presence of JARRED CARTER MD by Lissy Calle (rudolph). Lissy Calle 03/06/2024 2:06 PM Provider Statement: [...] and benefits of treatment options, impressions, importance ofcompliance with treatment and risk factor reductions. The patient verbalized understanding and agreement to the plan. Electronically signed by JARRED CARTER MD Please note that parts of this chart were generated using voice recognition M*SmartHub dictation software. Although every effort was made to ensure the accuracy of this automated medical technologist clinical, some errors in medical technologist clinical may have occurred. Lissy Calle 03/06/24 1419 documented in this encounterMagruder Memorial Hospital06-25-2024 NotePROCEDURE: In the coronal projection, without intravenous contrast, [...] TRANSCRIBED BY: ELECTRONICALLY SIGNED BY: Claudy Aviles MDNot [id number] History of Present illness Narrative* Jarred Carter MD - 01/09/2024 12:45 PM EDT Images from the original note were not included. [facility] - ENT [address] [place] [address], [address] [place] [id number] SUBJECTIVE: Patient ID: Ashlee Jalloh is a [...] fullness of her left ear. She does havea history of chronic sinusitis for 6 years. [...] Resource Strain: Patient Declined (02/22/2023) Received from [facility] Overall Financial Resource Strain (CARDIA) Difficulty of Paying Living Expenses: Patient declined Food Insecurity: No Food Insecurity (08/24/2023) Received from [facility] Hunger Vital Sign Worried About Running Out of Food in the Last Year: Never true Ran Out of Food in the Last Year: Never true Transportation Needs: No Transportation Needs (08/24/2023) [facility] PRAPARE - Transportation Lack of Transportation (Medical): No Lack of Transportation (Non-Medical): No Physical Activity: Not on file Stress: Not on file Social Connections: Not on file Interpersonal Safety: Not on file Housing Instability: Unknown (08/24/2023) Received from [facility] Housing Stability Vital Sign Unable to Pay for Housing in the Last Year: No Number of Places Lived in the Last Year: Not on file In the last 12 months, was there a time when you did not have a steady place to sleep or slept in [place] (including now)?: No Allergies Allergen Reactions Nubain [...] by mouth every 12 (twelve) hours as neededfor anxiety for up to 5 doses. (Patient not taking: Reported on 12/11/2023) 5 tablet 0 insulin NPH (HumuLIN N,NovoLIN N) 100 unit/mL injection Inject 5 Units under the skin 2 (two) timesa day before meals. (Patient not taking: Reported [...] Normal floor of mouth, Normal oral mucosa, andNormal anterior tongue Oropharynx: Normal mucosa, Normal soft palate, Normal hard palate, Normal uvula, Normal tonsils, and Normal Vallecula tonsil 2+ Neck: Neck supple, No adenopathy, Thyroid normal in size without nodules or tenderness, No palpableneck masses, and Carotids normal Respiratory: No stridor, [...] this chart were generated using voice recognition [place]*SmartHub dictation software. Although every effort was made to ensure the accuracy of this automated medical technologist clinical, some errors in medical technologist clinical may have occurred. documented in this encounterRockingham Memorial HospitalGreen Clean [id number] History of Present illness Narrative* Talita Restrepo, AUD - 01/09/2024 11:00 AM EDT AUDIOLOGIC EVALUATION Reason for visit: CC: Patient [...] She feels the hearing in her right earis better than her left ear. She has [...] Asymmetry noted: No Reliability: good Speech Audiometry: SRT/MIXING TANK OPERATOR in good agreement WRS: Right Ear: Excellent (92%) Left Ear: Excellent (92%) RECOMMENDATIONS: Follow up with Dr. 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 Carter's previous instructions that were provided at patient's last visit. Advised patient to continue applying 4 drops of Ciprodex to Left ear BID until patient's Recheck appointment scheduled on 01/09/2024. Patient: Ashlee Jalloh understands and agrees. Billie Mckeon CMA 12/21/23 0850 documented in this encounterMagruder Memorial Hospital04-12-2024 Telephone encounter Note* Telephone Encounter - Billie Mckeon CMA - 12/21/2023 8:50 AM EDT Called patient and advised patient to follow Dr. Carter's previous instructions that were provided at patient's last visit. Advised patient to continue applying 4 drops of Ciprodex to Left ear BID until patient's Recheck appointment scheduled on 01/09/2024. Patient: Ashlee Jalloh understands and agrees. Billie Mckeon CMA 12/21/23 0850 [facility]04-03-2024 Miscellaneous Notes* Telephone Encounter - Heath Nunes - 12/12/2023 11:55 AM EDT Pt calling because the ear drops prescribed are way too expensive through insurance and [facility]. Can you call something in that is cheaper? Jarocho Arguello. Please advise. Dr Carter patient * Telephone Encounter - Jarred Carter MD - 12/12/2023 11:55 AM EDT I redid the order. I sent the prescription in to the pharmacy for 2 different drops. They will be 2drops to left ear twice a day for 4 days. This will be used instead of the Ciprodex. * Telephone Encounter - Rohan Millard CNA - 12/12/2023 11:55 AM EDT Spoke with patient and let her know that a new script was sent to the pharmacy. documented in this encounterMagruder Memorial Hospital04-03-2024 Telephone encounter Note* Telephone Encounter - Heath Nunes - 12/12/2023 11:55 AM EDT Pt calling because the ear drops prescribed are way too expensive through insurance and [facility]. Can you call something in that is cheaper? Jarocho Arguello. Please advise. Dr Carter patient [facility] Mindie [id number] Telephone encounter Note* Telephone Encounter - Jarred Carter MD - 12/12/2023 11:55 AM EDT I redid the order. I sent the prescription in to the pharmacy for 2 different drops. They will be 2drops to left ear twice a day for 4 days. This will be used instead of the Ciprodex. Memorial [facility] SystemDigiMeld [id number] Telephone encounter Note* Telephone Encounter - Rohan Millard CNA - 12/12/2023 11:55 AM EDT Spoke with patient and let her know that a new script was sent to the pharmacy. [facility] Mindie [id number] Note [id number] Clinic Medina Hospital 12-11-2023 History of Present illness Narrative* Jarred Carter MD - 12/11/2023 1:00 PM EDT [facility] - ENT [address] [place] [address], [address] [facility] [id number] SUBJECTIVE: Patient ID: Ashlee Jalloh is a 38 y.o. female presents today for left ear pain. HPI: The patient is a 38-year-old female seen today with a 1 day history of left ear pain. She wokeup at 4:00 a.m. with sharp pain in her left ear. She had some otorrhea. She has a known history of multiple sets of ear tubes as a child. She was seen by an ENT physician in [facility]. She has a known history of retracted [...] by mouth every 12 (twelve) hours as neededfor anxiety for up to 5 doses. (Patient not taking: Reported on 12/11/2023) 5 tablet 0 insulin NPH (HumuLIN N,NovoLIN N) 100 unit/mL injection Inject 5 Units under the skin 2 (two) timesa day before meals. (Patient not taking: Reported [...] in size without nodules or tenderness, No palpableneck masses, and Carotids normal Respiratory: No stridor, [...] otalgia in the left ear. She has apast history of recurrent episodes of otitis media [...] advised to use Ciprodex (4 drops, BID, leftear, 4 days) and was shown how to properly administer this medication. She agrees. Questions and concerns addressed. I will see her back in 3 weeks with an audiogram. She will also have her prior ENTrecords sent to us from [facility]. Scribe Statement: Scribed for and in the [...] compliance with treatment and risk factor reductions. Thepatient verbalized understanding and agreement to the plan. Electronically signed by JARRED CARTER MD Please note that parts of this chart were generated using voice recognition M*Modal dictation software. Although every effort was made to ensure the accuracy of this automated medical technologist clinical, some errors in medical technologist clinical may have occurred. Alexa López 12/11/23 1323 documented in this encounterMagruder Memorial Hospital04-02-2024 Hospital Discharge instructions* Discharge Instructions* Rishabh Ross MD - 12/11/2023 5:56 AM EDT Take your medication as indicated and prescribed. If you are given an antibiotic, then make sure you get the prescription filled and take the antibiotics until finished. Drink plenty of water while taking the antibiotics. Avoid drinking alcohol or drinks that have caffeine in it while taking antibio tics. For pain use acetaminophen (Tylenol) or ibuprofen [...] white discharge coming from your ear, or ifyou develop any concerning symptoms such as: high [...] vision, loss of bladder / bowel control, u nable to follow up with your physician, or other any other care or concern. documented in this encounterBON GOOD [facility]02-28-2024 Evaluation + Plan note Future Scheduled Tests Radiology* XR Spine Lumbosacral Minimum 4 Views 11/07/23 [facility] 01-19-2024 Hospital Discharge instructions* Discharge Instructions* Avelino Muse DO - 09/28/2023 11:34 AM EST Contains abnormal data COVID-19, Rapid Order: [id number] Status: Final result Visible to patient: Yes [...] this assay. Fact sheet for Healthcare Providers: https://www.fda.gov/media/437191/download Fact sheet for Patients: https://www.fda.gov/media/595438/download Methodology: Isothermal Nucleic Acid Amplification Results reported to the appropriate Health Department Resulting Agency [facility] Lab Specimen Collected: 09/28/23 11:05 EST Last Resulted: 09/28/23 11:26 EST * Attachments The following attachments cannot be sent through Care Everywhere. * Cough (Dominican) * Coronavirus Disease (COVID-19): General Info (Dominican) * Coronavirus Disease (COVID-19): Caring for Yourself: Quick List (Dominican) * Fever (Dominican) documented in this encounterBON GOOD SAMARITAN [facility]OSPITAL01-02-2024 History of Present illness Narrative* Haley Gan Jr., - 09/11/2023 9:30 AM EST Subjective History of Present Illness Presence of Pain: complains of pain/discomfort Select Pain Scale: DVPRS (Defense and Veterans Pain Rating Scale) (Adult- Cognitively Intact) DVPRS: Rest: 4- mild pain DVPRS: Activity: 4- mild pain Select Pain Scale: DVPRS (Defense and Veterans Pain Rating Scale) (Adult- Cognitively Intact) Pain Frequency: constant Pain Quality: aching. Total time spent in this encounter was 47 minutes. Patient is being evaluatedfor an unstable chronic illness that increase morbidity and mortality. Due to patient's coexisting health problems and co-morbidities treatment is and will be very difficult. Patient was referred by Eliz ROMAN for Ankylosing Spondylitis. Patient states she was diagnosed with Ankylosing Spondylitis from a previously Neurologist. Patient states she has neck, back and GLENDA hip pain and stiffness.Patient states she will have intermittent GLENDA hand and knee swelling. 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 Patient is here to be checked of [...] type Angiomyolipoma of left kidney Adnexal cyst group home current use of non-steroidal anti-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 (NSAID) Hyponatremia [...] has been to Pain management and the shotsdid not help so declines referral Patient given [...] active CTD/CVD/Inflammatory arthritis/Ankylosing spondylitis documented in this [facility]12-16-2023 History of Present illness Narrative* Tressa Casas RN - 08/25/2023 12:09 PM EST Discharge teaching given, pt discharged CHG soap given to patient at discharge. Instructions given on daily use of CHG to prevent infection. Patient voiced understanding. * Mallory Braga RN - 08/24/2023 2:50 PM EST Patient arrived to 6A10, used eliz stedy to assist to bathroom and then bed. Right leg is numb frommid thigh down. C/o back pain 10/20. IV infusing into RH. at bedside. Oriented to room. Calllight within reach. Bed alarm turned on. * Constance Leonard RN - 08/24/2023 8:58 AM EST 0858: patient arrived to room via bed, attached to monitor, vital signs stable, report received from OR staff and ESL TEACHER. IV infusing via gravity. Spontaneous respirations. at bedside. Dressingremains clean and dry. Rn remains at bedside,continue [...] answered. Family updated. 1420: patient transported to [facility] via cart. going with patient. All belongings sent with patient. * Aleyda Velázquez RN - 08/17/2023 12:01 PM EST NPO after midnight Bring insurance info and drivers license Wear comfortable clean clothing Do not bring jewelry Shower night before and morning of surgery with a liquid antibacterial soap Bring list of medications with dosage and how often taken Follow all instructions given by your physician Cold Meat Cook needed at discharge Please limit to 2 visitors for surgery You must have a responsible adult with you day of surgery and for 24 hours after surgery Call PAT [phone] for any questions * Aleyda Velázquez RN - 08/17/2023 12:00 PM EST In preparation for their surgical procedure above patient was screened for Obstructive Sleep Apnea (DOLLY) using the STOP-Bang Questionnaire by the Pre- Admission Testing department. This is a pre-surgical screening tool for patient safety and serves as a recommendation, this WILL NOT cause cancellation of surgery. STOP-Bang Questionnaire * Do you currently see a vacuum pan operator? No If yes STOP, do not [...] to Screen Patients for Obstructive Sleep Apnea Yehuda La., Gregory Gonzales.B.B.S., Loren Hamm M.D., Samantha Stewart, Ph.D., Gregory George.B.B.S., Gregory Jiménez.Kostas., Lisa Barkley M.D., Gladis VerduzcoP.C. Anesthesiology 2008; 108:812-21 Copyright 2008, the [place] [employer]. [employer] documented in this encounterBON GOOD SAMARITAN [facility]ITAL12-16-2023 Hospital course Narrative* Noé Solomon MD - 08/25/2023 9:45 AM EST Images from the original note were not included. Hospital Medicine Discharge Summary Patient Identification: Ashlee Jalloh : 1985 Account: [id number] Patient's PCP: Lidia Keyes APRN - NP Admit Date: 08/24/2023 Discharge Date: 08/25/2023 Admitting Physician: Noé Solomon MD Discharge Physician: Noé Solomon MD Discharge Diagnoses: Post op complication from local anesthesia, Numbness and paresthesias in lower extremities s/p bilat sacroiliac joint fusion with sacroiliac fix on 08/24/[address] Patricio Aldridge MD with anesthesiologyby Dr. Carlos Flood DO Pt received spinal block. Concern for spinal epidural hematoma vs anesthetic toxicity- pt graduallygaining sensation and strength. 08/25 patient is back to baseline, able to walk and move. Pt deniesheadaches, nausea/vomiting and has been sitting up at [...] was subsequently sent to the hospital for obs ervation with the direct contact of the surgeon [...] sensitive to light touch in this extremity. Shewas able to wiggle her toes and had full sensation to pain, vibration, and proprioception. She had decreased strength and range of motion in both lower extremities, worse in the right. She noticed anerythematous, pruritic rash around her neck post procedure [...] educated to hold unto that medication with riskof hypercoagulable state. Patient remained hemodynamically stable without any new symptoms or complaints, patient was able towalk, numbness and weakness resolved, did not have fever or back pain. Leucocytosis from procedure.Will be discharged with close follow up with Dr. Aldridge. I tried calling office and tried to reach out neville Allison over perfect serve, was unable to. Patient will be discharged. Informed patient if any new symptoms or any new weakness where she is not able to control bowel andbladder or significant back pain, she should come [...] DIET; Regular Follow-up visits: Patricio Aldridge MD [facility] [place] [address] [place] [address] Follow up please call for follow up [...] this patient's care. Signed: documented in this encounterBON GOOD SAM[facility]ITAN [facility]12-15-2023 Hospital Discharge instructions* Discharge Instructions* Viridiana Gramajo RN - 08/24/2023 6:35 AM [...] naproxen, aspirin, or any other NSAIDS (non-steroidal anti- inflammatory drugs) until further notice by physician. Sedation Do not make any important decisions or sign any legal documents for 24 hours. No [address] as noted above. Have someone available to check on you for at least the next 24 hrs. Diet Resume noraml diet, you may eat and drink as normal after procedure Call office [phone] if you have: Temperature greater than 100.4 Persistent nausea and vomiting Severe uncontrolled pain Redness, tenderness, or signs of infection (pain, swelling, redness, odor or green/yellow dischargearound the site) Difficulty breathing, headache or visual [...] would like to thank you for choosing [facility] for your Surgical Care. Below you will [...] surgery using electric clippers if the hair isin the same area where the procedure will [...] hand rub before and after caring for eachpatient. If you do not see your providers [...] a razor can irritate your skin and makeit easier to develop an infection. At the [...] hands with soap and water or an alcohol- based hand rub beforeand after visiting you. If you do not [...] your doctor or nurse. documented in this encounterBON GOOD SAM[facility]AN [facility]08-03-2023 NotePROCEDURE: Bilateral sacroiliac joint injection. Physician: Elio Young [...] and decisions personally performed and made by theattending provider. It was created on his/her behalf by a trained medical research associate. The creation of this document is based on the provider?s statements to the medical research associate. Electronically signed by Elio Young MD 04/12/23 15:20 EDT Electronically signed by Christy Rubio Messi 04/12/2023 14:56 EDTBGeorgetown Behavioral Hospital08-03-2023 NoteHistory of Present Illness CHIEF COMPLAINT: Lumbosacral pain HISTORY OF PRESENT [...] and decisions personally performed and made by theattending provider. It was created on his/her behalf by a trained medical research associate. The creation of this document is based on the provider?s statements to the medical research associate. Problem List/Past Medical History Ongoing ADHD - [...] Electronically signed by Christy Rubio 04/12/2023 14:23 [facility] Hospital Discharge instructions* Discharge Instructions* Catherine Calvillo MD - 12/16/2022 6:31 PM [...] fevers chills or any other acute concerns * Attachments The following attachments cannot be sent through Care Everywhere. * Conjunctivitis (Dominican) documented in this encounterBON Glopho Phone: [phone] 489-948002-27-2023 Hospital Discharge instructions* Discharge Instructions* Barbra Dias PA-C - 11/06/2022 7:19 PM EST Follow-up with primary care doctor 5 to 7 days for reevaluation. Continue to drink plenty fluids astolerated take Tylenol or Motrin as directed for discomfort. Promptly return to emergency department for new, changing or worsening of symptoms or other concerns * Attachments The following attachments cannot be sent through Care Everywhere. * COVID-19: What Is It?: Video (Dominican) documented in this encounterBON CONTRA COSTA REGIONAL MEDICAL CENTERNualight Work Phone: [phone] 453-140001-31-2023 NoteCONSULTATION PROCEDURE DATE: 10/10/2022 PREOPERATIVE DIAGNOSIS: Bilateral knee [...] The patient understands and would like to proceed.[facility] [id number] NoteCONSULTATION CONSULTATION DATE: 09/19/2022 CHIEF COMPLAINT: Bilateral knee [...] The patient understands and would like to proceed.[facility] [id number] NotePatient Education Materials Name: Ashlee Jalloh Current Date: 08/09/2022 09:38:44 [place] : 1985 The following sheet(s) are the Patient Education Leaflets for Ashlee Jalloh Otolaryngology Tympanoplasty Tympanoplasty is surgery to repair a hole in the eardrum. The surgery can repair a damaged eardrum,stop infection, and improve hearing. During surgery, you may be given general anesthesia, or local anesthesia with sedation. Tympanoplasty takes about 1 to 3 hours. It may be done along with a mastoidectomy or an ossicular chain reconstruction. The eardrum is at the end of the ear canal. ? ? ? How to say it mjme-FBI-oe-plas-julien LNG-eoff-naq-ashanti-marcus Infection and injury Your eardrum may become [...] a graft. A graft is a small pieceof material, often your own tissue. It covers the tear or hole in your eardrum. The graft is secured with a spongy substance. This substance dissolves as the graft heals. If the ear bones are damaged, your own ossicles can be repositioned. Or a prosthesis can be placed in an attempt to improve hearing. ? [id number] The [employer]. [address] [place] [address], [place] [address]. All rights reserved. This information is not intended as a substitute for professional medical care. Always follow your healthcare professional's instructions.[facility]11-22-2022 NoteCONSULTATION CONSULTATION DATE: 08/01/2022 HISTORY OF PRESENT ILLNESS: This is a 37-year-old female who is referred to us by Tiffany Tejeda. The patient has chronic knee pathology. The patient has been treated by Dr. Monk at [facility]. The patient has an MRI, unfortunately, [...] MRI disc to evaluate further. CC: Tiffany Teejda [facility]NP[facility] Hospital Discharge instructions* Discharge Instructions* Barbra Dias PA-C - 06/25/2022 5:39 PM [...] or worsening of symptoms or other concerns. * Attachments The following attachments cannot be sent through Care Everywhere. * Otitis Media (Dominican) [facility] [employer] [place] [employer] Phone: 1(602) 985-190308-02-2022 History of Present illness Narrative* Minnie Mendez LPN - 04/11/2022 10:45 AM EDT General Plastics Review of Systems: Do you [...] you currently taking the medication Adipex? no. * Yas Serrano MD - 04/11/2022 10:45 AM EDT Subjective: Ashlee Jalloh is an 37 y.o. [...] of neck and back problems which will behelpful in requesting preauthorization for breast reduction. Allergies [...] She has shoulder grooves and significant hypertrophy ofthe trapezius muscle. There are no palpable masses [...] submit request for preauthorization documented in this [facility]03-05-2022 Hospital Discharge instructions* Instructions* Delbert Nascimento MD - 11/12/2021 Please follow-up with your general surgeon's office. If you have worsening symptoms or any other concerns return to emergency department. * Attachments The following attachments cannot be sent through Care Everywhere. * Wound Check (Dominican) [facility] this [facility] Phone: [phone]) 256-858906-11-2021 Hospital Discharge instructions* Instructions* Charles Pearce Jr., MD - 02/18/2021 Return if have increasing abdominal pain, fever, or vomiting. * Attachments The following attachments cannot be sent through Care Everywhere. * Abdominal Pain (Dominican) [facility] in this [facility] Phone: evaluation + Plan note Future Appointments Appointment Date:06/05/2023 08:30:00 AM Scheduled Provider: [facility] Appointment Type:CV Stress (FT) Appointment Date:07/16/2023 02:15:00 PM Scheduled Provider:Malaika Lan MD [facility] Appointment Type:Cardiology Follow Up (FT) Future Scheduled Tests Radiology* Echo Transthoracic Complete 06/04/23 * ECG [facility]ments Appointment Date:07/16/2023 02:15:00 PM Scheduled Provider:Malaika Lan MD Location:[facility] Appointment Type:Cardiology Follow Up (FT) Future Scheduled Tests Radiology* Echo Transthoracic Complete 06[facility]04/23 [facility] Future App[facility]ments Appointment Date:07/16/2023 02:15:00 PM Scheduled Provider:Malaika Lan MD [facility]iology Follow Up (FT) [facility] Future App[facility]ments Appointment Date:02/19/2024 08:00:00 AM Scheduled Provider:Darlene Dillard Location:[facility] Appointment Type:BH Therapy 60 Appointment Date:02/20/2024 08:20:00 AM Scheduled Provider:[facility]:FM Open Future Scheduled Tests Radiology* XR Spine Lumbosacral Minimum 4 Views 11/07/23 [facility] evaluation + Plan note Future Appointments Appointment Date:02/20/2024 08:20:00 AM Scheduled Provider:Lidia Jones Location:[facility] Appointment Type:FM Open Appointment Date:03/04/2024 10:00:00 AM Scheduled Provider:Darlene Dillard Location:[facility] Appointment Type:BH Therapy 60 Future Scheduled Tests Radiology* XR Spine Lumbosacral Minimum 4 Views 11/07/23 [facility] evaluation + Plan note Future Appointments Appointment Date:03/04/2024 10:00:00 AM Scheduled Provider:Darlene Dillard Location:[facility] Appointment Type:BH Therapy 60 Appointment Date:03/24/2024 01:00:00 PM Scheduled [facility]G Bilateral Lower Extremity Future Scheduled Tests Radiology* XR Spine Lumbosacral Minimum 4 Views 11/07/23 [facility] evaluation + Plan note Future Appointments Appointment Date:03/18/2024 09:00:00 AM Scheduled Provider:Darlene Dillard Location:[facility] Appointment Type:BH Therapy 60 Appointment Date:03/24/2024 01:00:00 PM Scheduled [facility]: [facility]:EMG Bilateral Lower Extremity Appointment Date:04/01/2024 10:00:00 AM Scheduled Provider:Darlene Dillard Location:[facility] Appointment Type:BH Therapy 60 Future Scheduled Tests Radiology* XR Spine Lumbosacral Minimum 4 Views 11/07/23 [facility] evaluation + Plan note Future Appointments Appointment Date:03/24/2024 01:00:00 PM Scheduled [facility]: [facility] Type:EMG Bilateral Lower Extremity Appointment Date:04/01/2024 10:00:00 AM Scheduled Provider:Darlene Dillard Location:[facility] Appointment Type:BH Therapy 60 Appointment Date:04/15/2024 10:00:00 AM Scheduled Provider:Darlene Dillard Location:[facility] Appointment Type:BH Therapy 60 Future Scheduled Tests Radiology* XR Spine Lumbosacral Minimum 4 Views 11/07/23 [facility] evaluation + Plan note Future Appointments Appointment Date:04/01/2024 10:00:00 AM Scheduled Provider:Darlene Dillard Location:[facility] Appointment Type:BH Therapy 60 Appointment Date:04/15/2024 10:00:00 AM Scheduled Provider:Darlene Dillard Location:[facility] Appointment Type:BH Therapy 60 Future Scheduled Tests Radiology* XR Spine Lumbosacral Minimum 4 Views 11/07/23 [facility] Future App[facility]ments Appointment Date:04/15/2024 10:00:00 AM Scheduled Provider:Darlene Dillard Location:[facility] Appointment Type:BH Therapy 60 Appointment Date:04/29/2024 09:00:00 AM Scheduled Provider:Darlene Dillard Location:[facility] Appointment Type:BH Therapy 60 Appointment Date:05/13/2024 10:00:00 AM Scheduled Provider:Darlene Dillard Location:[facility] Appointment Type:BH Therapy 60 Future Scheduled Tests Radiology* XR Spine Lumbosacral Minimum 4 Views 11/07/23 [facility] evaluation + Plan note Future Appointments Appointment Date:04/23/2024 09:20:00 AM Scheduled Provider:[facility]:FM Open Appointment Date:04/29/2024 09:00:00 AM Scheduled Provider:Darlene Dillard Location:[facility] Appointment Type:BH Therapy 60 Appointment Date:05/13/2024 10:00:00 AM Scheduled Provider:Darlene Dillard Location:[facility] Appointment Type:BH Therapy 60 Future Scheduled Tests Radiology* XR Spine Lumbosacral Minimum 4 Views 11/07/23 [facility] evaluation + Plan note Future Appointments Appointment Date:05/13/2024 10:00:00 AM Scheduled Provider:Darlene Dillard Location:[facility] Appointment Type:BH Therapy 60 Appointment Date:05/29/2024 03:00:00 PM Scheduled Provider:Darlene Dillard Location:[facility] Appointment Type:BH Video Visit Therapy 60 Appointment Date:06/04/2024 10:00:00 AM Scheduled Provider:Lidia Jones [facility] Type:FM Open Appointment Date:06/10/2024 03:00:00 PM Scheduled Provider:Darlene Dillard Location:[facility] Appointment Type:BH Video Visit Therapy 60 Appointment Date:06/26/2024 11:00:00 AM Scheduled Provider:Darlene Dillard Location:[facility] Appointment Type:BH Video Visit Therapy 60 Future Scheduled Tests Radiology* XR Spine Lumbosacral Minimum 4 Views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 [place] [address] PCP - GeneralFamily Medicine01/12/22Team MemberRelationshipSpecialtyStart DateEnd Date Might, Tiffany Rivero JAVA SCALA DEVELOPER-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 [address] [place] [address] PCP - GeneralFamily Medicine01/12/22Team MemberRelationshipSpecialtyStart DateEnd Date Might, Tiffany Rivero, JAVA SCALA DEVELOPER-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 [address] [place] [address] PCP - GeneralFamily Medicine01/12/22Team MemberRelationshipSpecialtyStart DateEnd Date MightTiffany JAVA SCALA DEVELOPER-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 [address] [facility] [place] [address] PCP - GeneralFamily Medicine01/12/22Team MemberRelationshipSpecialtyStart DateEnd Date Might, Tiffany Rivero, JAVA SCALA DEVELOPER-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 [address] [facility] [place] [address] PCP - GeneralFamily Medicine01/12/22Team MemberRelationshipSpecialtyStart DateEnd Date Might, Tiffany Rivero, JAVA SCALA DEVELOPER-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 [address] [facility] [place] [address] PCP - GeneralFamily Medicine01/12/22Team MemberRelationshipSpecialtyStart DateEnd Date MightTiffany, JAVA SCALA DEVELOPER-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 [address] [facility] [place] [address] PCP - GeneralFamily Medicine01/12/22Team MemberRelationshipSpecialtyStart DateEnd Date Lidia Keyes, JAVA SCALA DEVELOPER - RELOCATION COUNSELOR [address] [place] [address] PCP - Pxxvrcw51/2/23Team MemberRelationshipSpecialtyStart DateEnd Date Toño, Lidia, JAVA SCALA DEVELOPER - RELOCATION COUNSELOR [address] [place] [address] PCP - Qxkpqja33/2/23Team MemberRelationshipSpecialtyStart DateEnd Date Toño, Lidia, JAVA SCALA DEVELOPER - RELOCATION COUNSELOR [address] [place] [address] PCP - Uysfxej58/2/23Team MemberRelationshipSpecialtyStart DateEnd Date Toño, Lidia, JAVA SCALA DEVELOPER - RELOCATION COUNSELOR [address] [place] [address] PCP - Zttncty77/2/23Team MemberRelationshipSpecialtyStart DateEnd Date Toño, Lidia, JAVA SCALA DEVELOPER - RELOCATION COUNSELOR [address] [place] [address] PCP - Pzfeqzb30/2/23Team MemberRelationshipSpecialtyStart DateEnd Date Toño, Lidia, JAVA SCALA DEVELOPER - RELOCATION COUNSELOR [address] [place] [address] PCP - Pfhglfg04/2/23Team MemberRelationshipSpecialtyStart DateEnd Date Toño, Lidia, JAVA SCALA DEVELOPER - RELOCATION COUNSELOR [address] [place] [address] PCP - Qxwyepg92/2/23Team MemberRelationshipSpecialtyStart DateEnd Date Otño, Lidia, JAVA SCALA DEVELOPER - RELOCATION COUNSELOR [address] [place] [address] PCP - Wdywezg23/2/23Team MemberRelationshipSpecialtyStart DateEnd Date Lidia Keyes, JAVA SCALA DEVELOPER - RELOCATION COUNSELOR [address] [place] [address] PCP - Tgxgvzm90/2/23Team MemberRelationshipSpecialtyStart DateEnd Date ToñoLidia dumas, JAVA SCALA DEVELOPER - RELOCATION COUNSELOR [address] [place] [address] PCP - Fkteytx17/2/23Team MemberRelationshipSpecialtyStart DateEnd Date Toño, Lidia, JAVA SCALA DEVELOPER - RELOCATION COUNSELOR [address] [place] [address] PCP - Nqjpojd25/2/23 Source Comments (unrecognize d section and content) In the event this informatio n is protected by the Federal Confidentiality of Alcohol and Drug Abuse Patient Records regulations: The Federal rules restrict any use of the information to criminally investigate or prosecute any alcohol or drug abuse patient.[facility] Hospital[facility] the event this information is protected by the Federal Confidentiality of Alcohol and Drug Abuse Patient Records regulations: The Federal rules restrict any use of the information to criminally investigate or prosecute any alcohol or drug abuse patient.[facility] HospitalIn the event this information is protected by the Federal Confidentiality of Alcohol and Drug Abuse Patient Records regulations: The Federal rules restrict any use of the information to criminally investigate or prosecute any alcohol or drug abuse patient.[facility] HospitalIn the event this information is protected by the Federal Confidentiality of Alcohol and Drug Abuse Patient Records regulations: The Federal rules restrict any use of the information to criminally investigate or prosecute any alcohol or drug abuse patient.[facility] HospitalIn the event this information is protected by the Federal Confidentiality of Alcohol and Drug Abuse Patient Records regulations: The Federal rules restrict any use of the information to criminally investigate or prosecute any alcohol or drug abuse patient.[facility] HospitalIn the event this information is protected by the Federal Confidentiality of Alcohol and Drug Abuse Patient Records regulations: The Federal rules restrict any use of the information to criminally investigate or prosecute any alcohol or drug abuse patient.[facility] HospitalIn the event this information is protected by the Federal Confidentiality of Alcohol and Drug Abuse Patient Records regulations: The Federal rules restrict any use of the information to criminally investigate or prosecute any alcohol or drug abuse patient.[facility] HospitalIn the event this information is protected by the Federal Confidentiality of Alcohol and Drug Abuse Patient Records regulations: The Federal rules restrict any use of the information to criminally investigate or prosecute any alcohol or drug abuse patient.[facility] HospitalIn the event this information is protected by the Federal Confidentiality of Alcohol and Drug Abuse Patient Records regulations: The Federal rules restrict any use of the information to criminally investigate or prosecute any alcohol or drug abuse patient.[facility] HospitalIn the event this information is protected by the Federal Confidentiality of Alcohol and Drug Abuse Patient Records regulations: The Federal rules restrict any use of the information to criminally investigate or prosecute any alcohol or drug abuse patient.[facility] HospitalIn the event this information is protected by the Federal Confidentiality of Alcohol and Drug Abuse Patient Records regulations: The Federal rules restrict any use of the information to criminally investigate or prosecute any alcohol or drug abuse patient.[facility] HospitalIn the event this information is protected by the Federal Confidentiality of Alcohol and Drug Abuse Patient Records regulations: The Federal rules restrict any use of the information to criminally investigate or prosecute any alcohol or drug abuse patient.[facility] HospitalIn the event this information is protected by the Federal Confidentiality of Alcohol and Drug Abuse Patient Records regulations: The Federal rules restrict any use of the information to criminally investigate or prosecute any alcohol or drug abuse patient.[facility] HospitalIn the event this information is protected by the Federal Confidentiality of Alcohol and Drug Abuse Patient Records regulations: The Federal rules restrict any use of the information to criminally investigate or prosecute any alcohol or drug abuse patient.[facility] HospitalIn the event this information is protected by the Federal Confidentiality of Alcohol and Drug Abuse Patient Records regulations: The Federal rules restrict any use of the information to criminally investigate or prosecute any alcohol or drug abuse patient.[facility] HospitalIn the event this information is protected by the Federal Confidentiality of Alcohol and Drug Abuse Patient Records regulations: The Federal rules restrict any use of the information to criminally investigate or prosecute any alcohol or drug abuse patient.[facility] HospitalIn the event this information is protected by the Federal Confidentiality of Alcohol and Drug Abuse Patient Records regulations: The Federal rules restrict any use of the information to criminally investigate or prosecute any alcohol or drug abuse patient.[facility] HospitalIn the event this information is protected by the Federal Confidentiality of Alcohol and Drug Abuse Patient Records regulations: The Federal rules restrict any use of the information to criminally investigate or prosecute any alcohol or drug abuse patient.[facility] HospitalIn the event this information is protected by the Federal Confidentiality of Alcohol and Drug Abuse Patient Records regulations: The Federal rules restrict any use of the information to criminally investigate or prosecute any alcohol or drug abuse patient.[facility] HospitalIn the event this information is protected by the Federal Confidentiality of Alcohol and Drug Abuse Patient Records regulations: The Federal rules restrict any use of the information to criminally investigate or prosecute any alcohol or drug abuse patient.[facility] FOR RECORDS PERTAINING TO PATIENTS WHO ARE [...] BE BASED ON THE PRIMARY CLINICAL RECORDS. [facility]. provides no warranty or guarantee of the accuracy or completeness of information in this document.
--- NOTE | 2025-07-30 17:24 | US_ITS ---
The [address] [address] Patient Name: ASHLEE JALLOH MRN: [id number] date: 1985 Sex: F Assigned Patient Location: Current Patient Location: Accession/Order Number: [id number] Exam Date: 07/30/2025 17:25 Report Date: 07/30/2025 23:35 At the request of: SHAN STRATTON DO Procedure: US pelvis w/ transvaginal Pelvic ultrasound transabdominal transvaginal imaging HISTORY: Follow-up left complex ovarian cyst COMPARISON: 05/07/2025 Hysterectomy. The right ovary measures 3.1 x 2.3 x 2.4 cm. Left ovary measures 4.4 x 2.6 x 3.9 cm. Bilateral ovarian color flow and Doppler flow identified. Left ovary containing cystic area measuring 1.6 x 2.4 x 2.1 cm. 3.1 cm left ovarian cyst longer seen. Small amount of fluid adjacent to the left ovary. US/US pelvis w/ transvaginal IMPRESSION: Smaller 2.4 cm complex left ovarian cyst. Small amount of fluid adjacent left ovary. Bilateral ovarian follicles. Adequate color flow of ovaries. Hysterectomy. Impression dictated by: Aiden Foote M.D. 07/30/2025 11:35 PM Dictation Location: [place] [address] Electronically authenticated by: [id number] Y Date: 07/30/2025 23:35
== END 2025-07-30 15:47 | disposition home or self-care (01) ==
LOC: US 15:47
PROVIDERS: PCP Nurse Practitioner; Visit Provider Obstetrics & Gynecology
DX: N83.292 Other ovarian cyst, left side (principal); N83.299 Other ovarian cyst, unspecified side
CPT/HCPCS: 76830; 76856